=== PATIENT | female | born 1960 | race Two or more races ===

== ENCOUNTER → 2019-12-23 11:11 | Outpatient (BNVA) | payer MEDICAID, SELFPAY | PROVIDERS: PCP Internal Medicine; Referring Provider Internal Medicine; Visit Provider Student in an Organized Health Care Education/Training Program | DX: M25.50 Pain in unspecified joint (principal) | CPT/HCPCS: 99213 ==

== ENCOUNTER 2020-01-12 17:35 | Outpatient (REF) | payer MEDICAID, SELFPAY ==
--- NOTE | 2020-01-12 | MM_ITS ---
EXAMINATION: MM SCREENING DIGITAL BREAST TOMOSYNTHESIS, BILATERAL CLINICAL INFORMATION: Screening. Asymptomatic. The lifetime risk of breast cancer based on the Tyrer-Cuzick Model is 9%. COMPARISON: Mammography: 07/09/2018, 07/02/2017, 06/02/2016 TECHNIQUE: Digital breast tomosynthesis is performed in both the craniocaudal and mediolateral oblique views along with computer-aided detection (CAD). Synthesized 2D images are generated from the tomosynthesis. FINDINGS: There are scattered areas of fibroglandular density (ACR BI-RADS breast composition Category b). Breast tissue composition borders on heterogeneously dense. Parenchymal pattern is similar to prior studies. There is no developing density or interval mass or architectural abnormality. There are some scattered punctate round calcifications again seen in each breast. No suspicious calcifications. Pacemaker generator overlies and partly obscures right axilla on MLO view. MM/MM tomosynthesis screening BI IMPRESSION: No significant changes from prior studies. ASSESSMENT: BI-RADS 2: Benign RECOMMENDATION: Routine annual mammography screening. This patient's information was entered into a reminder system with a target due date for their next mammogram.
== END 2020-01-12 17:36 | disposition home or self-care (01) ==
LOC: HO.MAMMO 17:35
PROVIDERS: PCP Internal Medicine; Visit Provider Internal Medicine
DX: Z12.31 Encounter for screening mammogram for malignant neoplasm of breast (principal)
CPT/HCPCS: 77063; 77067

== ENCOUNTER → 2020-05-04 16:05 | Outpatient (BNVA) | payer MEDICAID, SELFPAY | PROVIDERS: PCP Internal Medicine; Visit Provider Internal Medicine | DX: J44.9 Chronic obstructive pulmonary disease, unspecified (principal); J40 Bronchitis, not specified as acute or chronic; J30.9 Allergic rhinitis, unspecified; Z79.51 Long term (current) use of inhaled steroids | CPT/HCPCS: 99212 ==

== ENCOUNTER 2020-06-15 10:21 | Outpatient (REF) | payer MEDICAID, SELFPAY | END 2020-06-15 10:22 | disposition home or self-care (01) | LOC: HO.MAMMO 10:21 | PROVIDERS: PCP Internal Medicine; Visit Provider Internal Medicine | DX: Z13.89 Encounter for screening for other disorder (principal) ==

== ENCOUNTER → 2020-09-21 15:58 | Outpatient (BNVA) | payer MEDICAID, SELFPAY | PROVIDERS: PCP Internal Medicine; Visit Provider Internal Medicine | DX: J30.9 Allergic rhinitis, unspecified (principal); J44.9 Chronic obstructive pulmonary disease, unspecified; Z79.899 Other long term (current) drug therapy | CPT/HCPCS: 99212 ==

== ENCOUNTER → 2020-11-18 14:21 | Outpatient (BNVA) | payer MEDICAID, SELFPAY | PROVIDERS: PCP Internal Medicine ==

== ENCOUNTER 2020-11-22 18:19 | Inpatient (IN) | payer MEDICAID, SELFPAY ==
--- NOTE | ~2020-11-22 | XR_ITS ---
EXAMINATION: PORTABLE CHEST 1 VIEW CLINICAL INFORMATION: cp and sob . COMPARISON: 10/22/2018. TECHNIQUE: Portable frontal view of the chest was obtained. FINDINGS: Lungs are well-expanded with no superimposed focal infiltrate, effusion, edema, or pneumothorax. Cardiac silhouette within normal limits for size. Patient is status post sternotomy. Single lead pacemaker is again noted with lead tip overlying the expected right ventricle. No acute bony abnormality. XR/XR chest 1V IMPRESSION: Chronic appearing and postoperative changes similar to the prior examination. No acute process identified.
[2020-11-22 18:27] VITALS: BP 122/81; PULSE 66; O2SAT 98
[2020-11-22 18:28] VITALS: BMI 23.3
--- NOTE | 2020-11-22 18:40 | ED_ITS ---
HPI - Chest Pain General Chief Complaint: Chest Pain Stated Complaint: CHEST PAIN Time Seen by Provider: 11/22/20 18:36 Source: patient, EMS and junior engineer Mode of arrival: EMS Limitations: no limitations History of Present Illness HPI narrative: 59-year-old female brought in by ambulance for evaluation of chest pain and coughing with shortness of breath. Patient's symptoms started last night with sneezing and started to have a left nostril bleeding that was controlled since last night, patient also started to have chest pain started last night described as chest squeeze, radiates to the left shoulder, associated with shortness of breath (patient is known history of asthma/COPD), describes the pain as intermittent comes for few minutes then go away, moderate 5/10, nothing makes the pain worse, nothing makes the pain better. Patient has been wheezing since yesterday. Related Data Home Medications Medication Instructions Recorded Confirmed albuterol sulfate 90 mcg/actuation 2 puff INHALATION Q6H PRN 12/23/19 09/21/20 aerosol inhaler bisacodyl 5 mg tablet,delayed 5 mg PO BEDTIME 12/23/19 09/21/20 release clopidogrel 75 mg tablet 75 mg PO DAILY 12/23/19 09/21/20 fluticasone 250 mcg-salmeterol 50 1 inh INHALATION BID 12/23/19 09/21/20 mcg/dose blistr powdr for inhalation (Advair Diskus) furosemide 20 mg tablet 10 mg PO QAM 12/23/19 09/21/20 gabapentin 100 mg capsule 100 mg PO TID 12/23/19 09/21/20 hydrochlorothiazide 12.5 mg tablet 12.5 mg PO DAILY 12/23/19 09/21/20 loratadine 10 mg tablet 10 mg PO DAILY 12/23/19 09/21/20 losartan 100 mg tablet 100 mg PO DAILY 12/23/19 09/21/20 montelukast 10 mg tablet 10 mg PO BEDTIME 12/23/19 09/21/20 sertraline 50 mg tablet 50 mg PO DAILY 12/23/19 09/21/20 tiotropium bromide 18 mcg capsule 1 cap INHALATION DAILY 12/23/19 09/21/20 with inhalation device (Spiriva with HandiHaler) Previous Rx's Medication Instructions Recorded tramadol 50 mg tablet 50 mg PO Q8H #90 tab 06/29/20 acetaminophen 650 mg 1,300 mg PO Q8H #180 tab 08/03/20 tablet,extended release oxybutynin chloride 10 mg 10 mg PO DAILY 30 Days #30 tab 11/18/20 tablet,extended release 24 hr albuterol sulfate 2.5 mg INHALATION Q4-6H PRN #75 ml 11/22/20 albuterol sulfate 2.5 mg INHALATION Q4-6H PRN #75 ml 11/22/20 azithromycin 250 mg tablet See Rx Instructions .ROUTE 11/22/20 (Zithromax Z-Pedro) .COMPLEX #6 tab azithromycin 250 mg tablet See Rx Instructions .ROUTE 11/22/20 (Zithromax Z-Pedro) .COMPLEX #6 tab prednisone 20 mg tablet 20 mg PO BID #10 tab 11/22/20 prednisone 20 mg tablet 20 mg PO BID #10 tab 11/22/20 Allergies Allergy/AdvReac Type Severity Reaction Status Date / Time latex [LATEX] Allergy Severe DIFFICULTY Verified 09/21/20 16:06 BREATHING aspirin [Aspirin] Allergy Intermediate ITCHING, Verified 09/21/20 16:06 itchiness ciprofloxacin [From CIPRO] Allergy Intermediate DIAPHORESIS Verified 09/21/20 16:06 /PURITIS HEMALATHA Inhibitors Allergy Unknown COUGH Verified 09/21/20 16:06 [HEMALATHA INHIBITORS] Penicillins [PENICILLINS] Allergy Unknown UNKNOWN Verified 09/21/20 16:06 Review of Systems Review of Systems: All other systems are reviewed and are negative Constitutional: Reports as per HPI and Reports no additional constitutional complaints Eyes: Reports as per HPI and Reports no additional eye complaints Reports system reviewed and no additional complaints, except as documented Cardiovascular: Reports as per HPI and Reports no additional cardiovascular complaints Respiratory: Reports as per HPI and Reports no additional respiratory complaints Gastrointestinal: Reports as per HPI and Reports no additional gastrointestinal complaints Genitourinary: Reports no additional female genitourinary complaints Musculoskeletal: Reports no additional musculoskeletal complaints Skin/Breast: Reports system reviewed and no additional complaints, except as docu Psychiatric: Reports no additional psychiatric complaints Endocrine: Reports no additional endocrine complaints Hematologic/Lymphatic: Reports no additional hematologic/lymphatic complaints Allergic/Immunologic: Reports no additional allergic/immunologic complaints Reports system reviewed and no additional complaints, except as documented and Reports Abnormal speech present PMFSH Past Medical History Medical History Allergic rhinitis Asthma Asthma Bronchitis COPD (chronic obstructive pulmonary disease) Family history of GERD History of arthritis History of COPD History of depression History of enuresis History of urinary incontinence Hx of allergic rhinitis Hx of cardiac pacemaker Hx of coronary artery disease Hx of diabetes mellitus Hx of drug abuse Hx of essential hypertension Hx of hyperlipidemia Hx of migraines Hx of osteoarthritis Hx of pilonidal cyst Overactive bladder Surgical History History of epidermal inclusion cyst excision Hx laparoscopic cholecystectomy Hx of aortic valve replacement Social History Social History Advance Directives: No Advance Directives Information Provided: No Physical Exam Vital Signs: Vital Signs: Last Vital Signs Temp 99.1 F 11/22/20 19:54 Pulse 66 11/22/20 19:54 Resp 18 11/22/20 19:54 BP 118/71 11/22/20 19:54 Pulse Ox 98 11/22/20 19:54 Body Mass Index 23.3 Vital signs have been reviewed as appeared to be correct. Blood pressure normal. Heart rate normal. Respiration rate normal. Temperature normal. Oxygen saturation normal. Appearance: Alert. Oriented X3. No acute distress. Head: Normal external exam. Normocephalic. Atraumatic. No Ellis signs noted. No raccoon eyes noted Eyes: PERRLA. EOMI. Conjunctiva and sclera normal. Eyelids normal. ENT: TM's Normal. Pharynx normal. Uvula midline. Moist mucous membranes. No trismus noted. No drooling noted. No muffled voice noted. Neck: Normal inspection. Neck supple. FROM. No adenopathy. Thyroid Normal. No meningeal signs. No neck mass noted. CVS: Normal heart rate and rhythm. Heart sound normal. No murmurs noted. Pulses normal throughout. Respiratory: No respiratory distress. Painless inspiration. Breath sounds normal. Diffuse mild expiratory wheezing, with prolonged expiration. Chest nontender. No accessory muscle usage noted or decreased air movement noted. Abdomen: Soft and nontender. Bowel sounds normal in all 4 quadrants. No distention noted. No organomegaly noted. No visible injury noted. Back: No CVA tenderness. Full range of motion noted. Skin: Skin warm and dry. Normal skin color. Normal skin turgor. No rashes/lesions/lacerations noted. Extremities: No lower extremity edema. Extremities exhibit normal range of motion. Extremities nontender. Neuro: Oriented X 3. Cranial nerve exam: II-XII are grossly intact No motor deficit. No sensory deficit. Reflexes normal. Course Course Course Narrative: Assessment and plan 59-year-old female history of COPD came in with chest pain and tightness, exam show expiratory wheezing, consistent with COPD exacerbation patient received continuous bronchodilator/IV Solu-Medrol/potassium replacement, patient still feel wheezing and tight will admit for more bronchodilator. MDM - Chest Pain Lab Data Attestation: I reviewed the patient's lab results. Result diagrams: 11/22/20 19:05 11/22/20 19:05 Labs: Lab Results 11/22/20 11/22/20 11/22/20 Range/Units 19:05 19:05 19:05 WBC 8.2 (4.8-10.8) X10*3/uL RBC 5.09 (4.20-5.50) X10*6/uL Hgb 15.0 (12.0-16.0) g/dl Hct 44.3 (37-47) % MCV 87.0 (80-98) fL MCH 29.5 (27.0-33.0) pg MCHC 33.9 (31.0-35.0) g/dl RDW 12.9 (11.0-16.0) % Plt Count 297 (160-400) X10*3/uL MPV 10.1 (9.4-12.3) fL Immature Gran % (Auto) 0.2 (0.0-0.4) % Neut % (Auto) 61.2 (45-73) % Lymph % (Auto) 27.3 (20-40) % [place] % (Auto) 7.9 (2-11) % Eos % (Auto) 2.9 (0-4) % Baso % (Auto) 0.5 (0-2) % Lymph # (Auto) 2.2 (1.2-4.9) X10*3/uL [place] # (Auto) 0.7 (0.1-1.2) X10*3/uL Eos # (Auto) 0.2 (0.0-0.4) X10*3/uL Baso # (Auto) 0.0 (0.0-0.2) X10*3/uL Abs Immat Gran (auto) 0.02 (0.00-0.03) X10*3/uL Absolute Neuts (auto) 5.0 (2.0-8.3) X10*3/uL Absolute Nucleated RBC 0.000 (0.0-0.012) X10*3/uL Nucleated RBC % (auto) 0.0 (0.0-0.2) /100WBC Sodium 140 (135-145) mmol/L Potassium 3.1 L (3.3-5.1) mmol/L Chloride 100 (96-108) mmol/L Carbon Dioxide 31 H (22-29) mmol/L Anion Gap 12 (12-20) BUN 20 H (9-16) mg/dL Creatinine 0.90 (0.5-1.4) mg/dL Estim Creat Clear Calc 62.1 Estimated GFR > 60 Random Glucose 96 (60-115) mg/dL Calcium 9.9 (8.4-10.2) mg/dL Total Bilirubin 0.5 (0.0-1.0) mg/dL Direct Bilirubin 0.2 (0.0-0.5) mg/dL AST 22 (5-31) U/L ALT 13 (0-31) U/L Alkaline Phosphatase 65 (39-117) U/L Troponin I High Sens 8.8 (<3.5-17.0) ng/L B-Natriuretic Peptide (<100) pg/mL Total Protein 7.1 (6.5-8.0) g/dL Albumin 4.2 (3.5-5.0) g/dL Lipase 32 (8-78) U/L COVID-19 ([facility]) (Negative) COVID-19 Clin Com 11/22/20 11/22/20 Range/Units 19:05 19:05 WBC (4.8-10.8) X10*3/uL RBC (4.20-5.50) X10*6/uL Hgb (12.0-16.0) g/dl Hct (37-47) % MCV (80-98) fL MCH (27.0-33.0) pg MCHC (31.0-35.0) g/dl RDW (11.0-16.0) % Plt Count (160-400) X10*3/uL MPV (9.4-12.3) fL Immature Gran % (Auto) (0.0-0.4) % Neut % (Auto) (45-73) % Lymph % (Auto) (20-40) % [place] % (Auto) (2-11) % Eos % (Auto) (0-4) % Baso % (Auto) (0-2) % Lymph # (Auto) (1.2-4.9) X10*3/uL [place] # (Auto) (0.1-1.2) X10*3/uL Eos # (Auto) (0.0-0.4) X10*3/uL Baso # (Auto) (0.0-0.2) X10*3/uL Abs Immat Gran (auto) (0.00-0.03) X10*3/uL Absolute Neuts (auto) (2.0-8.3) X10*3/uL Absolute Nucleated RBC (0.0-0.012) X10*3/uL Nucleated RBC % (auto) (0.0-0.2) /100WBC Sodium (135-145) mmol/L Potassium (3.3-5.1) mmol/L Chloride (96-108) mmol/L Carbon Dioxide (22-29) mmol/L Anion Gap (12-20) BUN (9-16) mg/dL Creatinine (0.5-1.4) mg/dL Estim Creat Clear Calc Estimated GFR Random Glucose (60-115) mg/dL Calcium (8.4-10.2) mg/dL Total Bilirubin (0.0-1.0) mg/dL Direct Bilirubin (0.0-0.5) mg/dL AST (5-31) U/L ALT (0-31) U/L Alkaline Phosphatase (39-117) U/L Troponin I High Sens (<3.5-17.0) ng/L B-Natriuretic Peptide 90 (<100) pg/mL Total Protein (6.5-8.0) g/dL Albumin (3.5-5.0) g/dL Lipase (8-78) U/L COVID-19 (HOLLIS) Negative (Negative) COVID-19 Clin Com See Note Imaging Data Chest x-ray: Radiologist's impression: Chronic appearing and postoperative changes similar to the prior examination. No acute process identified. ECG Data ECG #1: Interpretation: Ventricular paced EKG at 70 beats per minute. Discharge Plan Discharge Clinical Impression: Hypokalemia COPD (chronic obstructive pulmonary disease) Qualifiers: COPD type: COPD with acute exacerbation Qualified Code(s): J44.1 - Chronic obstructive pulmonary disease with (acute) exacerbation Patient Disposition: Admitted As Inpatient
[2020-11-22] MEDS: Albuterol Sulfate (0.083%) 2.5 MG/3 ML VIAL.NEB 5 MG INHALE (18:52)
[2020-11-22] MEDS: Albuterol/Iprat 2.5/0.5MG 3 ML AMPUL.NEB INHALE (18:52)
[2020-11-22 19:02] VITALS: PULSE 64; O2SAT 94
[2020-11-22 19:10] LABS: MANUAL DIFF FLAG NO
[2020-11-22 19:13] LABS: Basophils Percent Auto 0.5 % (0-2); Eosinophils Absolute Auto 0.2 X10*3/uL (0.0-0.4); Eosinophils Percent Auto 2.9 % (0-4); Hematocrit 44.3 % (37-47); Imm Gran Abs Auto 0.02 X10*3/uL (0.00-0.03); Imm Gran Pct Auto 0.2 % (0.0-0.4); Lymphocytes Absolute Auto 2.2 X10*3/uL (1.2-4.9); Lymphocytes Percent Auto 27.3 % (20-40); Mean Corpuscular HGB Conc 33.9 g/dl (31.0-35.0); Mean Corpuscular Hemoglobin 29.5 pg (27.0-33.0); Mean Platelet Volume 10.1 fL (9.4-12.3); Monocytes Absolute Auto 0.7 X10*3/uL (0.1-1.2); Monocytes Percent Auto 7.9 % (2-11); Neutrophils Percent Auto 61.2 % (45-73); Platelet Count 297 X10*3/uL (160-400); Red Blood Count 5.09 X10*6/uL (4.20-5.50); Red Cell Distribution Width 12.9 % (11.0-16.0); White Blood Count 8.2 X10*3/uL (4.8-10.8)
[2020-11-22 19:27] LABS: COVID-19 Test Negative (Negative)
[2020-11-22 19:28] LABS: Alanine Aminotransferase 13 U/L (0-31); Albumin Level 4.2 g/dL (3.5-5.0); Alkaline Phosphatase 65 U/L (39-117); Anion Gap 12 (12-20); Aspartate Amino Transferase 22 U/L (5-31); Bilirubin Direct 0.2 mg/dL (0.0-0.5); Bilirubin Total 0.5 mg/dL (0.0-1.0); Blood Urea Nitrogen 20 mg/dL (9-16); Calcium 9.9 mg/dL (8.4-10.2); Carbon Dioxide 31 mmol/L (22-29); Chloride 100 mmol/L (96-108); Creatinine Clr Calc Pharmacy 62.1; Estimated Glomerular Filt Rate > 60; Glucose Random 96 mg/dL (60-115); Lipase 32 U/L (8-78); Potassium 3.1 mmol/L (3.3-5.1); Sodium 140 mmol/L (135-145); Total Protein 7.1 g/dL (6.5-8.0)
[2020-11-22 19:33] LABS: B Type Natriuretic Peptide 90 pg/mL (<100); Troponin-I High Sensitivity 8.8 ng/L (<3.5-17.0)
[2020-11-22 19:54] VITALS: BP 118/71; PULSE 66; RESP 18; TEMP 37.3; O2SAT 98
[2020-11-22] MEDS: methylPREDNISolone Sod Succ 125 MG/2 ML VIAL IVPUSH (20:10)
[2020-11-22] MEDS: Magnesium Sulfate/H2O 2 GM/50 ML PIGGYBACK IV (20:10)
--- NOTE | 2020-11-22 20:10 | PM.IMHP ---
History of Present Illness Date of Service: 11/22/20 Chief Complaint: Shortness of breath 59-year-old female with a past medical history of hypertension, hyperlipidemia, diabetes, coronary artery disease, history of cardiac pacemaker, COPD, anxiety, depression, arthritis, overactive bladder, migraines, history of aortic valve replacement presented to the hospital with a chief complaint of shortness of breath/chest tightness. Patient reported for past 1 day she has been having shortness of breath and chest tightness associated wheezing. Complains of dry cough. Denies any fevers and chills. Denies any numbness tingling or focal weakness. Chest pain is tight in nature, mostly as well with shortness of breath/coughing; radiates to the left arm; associated with mild dizziness. Denies any diaphoresis. Currently improved. Denies any GI or symptoms. Review of all other systems is negative except mentioned above ER course: Per ER team patient on presentation noted to be in mild distress, tachypneic, given magnesium, Solu-Medrol, nebulizations with slight improvement; home vitals are stable. Admitted to the hospital for further management. EKG was nonischemic. Troponin negative. [facility] Medical History (Updated 11/22/20 @ 20:10 by Adair Baig MD) Allergic rhinitis Asthma Asthma Bronchitis COPD (chronic obstructive pulmonary disease) Family history of GERD History of arthritis History of COPD History of depression History of enuresis History of urinary incontinence Hx of allergic rhinitis Hx of cardiac pacemaker Hx of coronary artery disease Hx of diabetes mellitus Hx of drug abuse Hx of essential hypertension Hx of hyperlipidemia Hx of migraines Hx of osteoarthritis Hx of pilonidal cyst Overactive bladder Pertinent family history: Reviewed; Surgical History History of epidermal inclusion cyst excision Hx laparoscopic cholecystectomy Hx of aortic valve replacement Social History Alcohol intake: never Patient Tobacco Use Status: Current everyday Tobacco user Use of substances other than those prescribed or required for medical reasons: No Advance Directives: No Advance Directives Information Provided: No Meds Allergies Allergy/AdvReac Type Severity Reaction Status Date / Time latex [LATEX] Allergy Severe DIFFICULTY Verified 09/21/20 16:06 BREATHING aspirin [Aspirin] Allergy Intermediate ITCHING, Verified 09/21/20 16:06 itchiness ciprofloxacin [From CIPRO] Allergy Intermediate DIAPHORESIS Verified 09/21/20 16:06 /PURITIS HEMALATHA Inhibitors Allergy Unknown COUGH Verified 09/21/20 16:06 [HEMALATHA INHIBITORS] Penicillins [PENICILLINS] Allergy Unknown UNKNOWN Verified 09/21/20 16:06 Active Medications: Current Medications Acetaminophen (Acetaminophen 325 Mg Tablet) 650 mg PO Q6H PRN PRN Reason: Pain, Mild (Pain Scale 1-3) Enoxaparin Sodium (Enoxaparin Sodium 40 Mg/0.4 Ml Syringe) 40 mg SUBCUT Q24H PATTI Magnesium Sulfate (Magnesium Sulfate/H2o) 2 gm in 50 mls @ 25 mls/hr IV ONCE ONE Stop: 11/22/20 20:35 Methylprednisolone Sodium Succinate (Methylprednisolone Sod Succ 125 Mg/2 Ml Vial) 60 mg IVPUSH Q8H PATTI Nitroglycerin (Nitroglycerin 0.4 Mg Tab.Subl) 0.4 mg SUBLINGUAL Q5MX3 PRN PRN Reason: Chest Pain Senna (Sennosides 8.6 Mg Tablet) 17.2 mg PO BEDTIME PRN PRN Reason: Constipation Sodium Chloride (0.9 % Sodium Chloride Flush 3 Ml Syringe) 3 ml IVFLUSH QSHIFT PATTI Home Medications Medication Instructions Recorded Confirmed Last Taken Type albuterol sulfate 90 mcg/actuation 2 puff INHALATION Q6H PRN 12/23/19 11/22/20 Unknown History aerosol inhaler bisacodyl 5 mg tablet,delayed 10 mg PO BEDTIME 12/23/19 11/22/20 Unknown History release clopidogrel 75 mg tablet 75 mg PO DAILY 12/23/19 11/22/20 Unknown History fluticasone 250 mcg-salmeterol 50 1 inh INHALATION BID 12/23/19 11/22/20 Unknown History mcg/dose blistr powdr for inhalation (Advair Diskus) furosemide 20 mg tablet 10 mg PO QAM 12/23/19 11/22/20 Unknown History gabapentin 100 mg capsule 100 mg PO TID 12/23/19 11/22/20 Unknown History hydrochlorothiazide 12.5 mg tablet 12.5 mg PO DAILY 12/23/19 11/22/20 Unknown History montelukast 10 mg tablet 10 mg PO BEDTIME 12/23/19 11/22/20 Unknown History sertraline 50 mg tablet 50 mg PO DAILY 12/23/19 11/22/20 Unknown History tiotropium bromide 18 mcg capsule 1 cap INHALATION DAILY 12/23/19 11/22/20 Unknown History with inhalation device (Spiriva with HandiHaler) albuterol sulfate 1 amp INHALATION TID 11/22/20 11/22/20 Unknown History calcium carbonate 600 mg (1,500 1 tab PO QAM 11/22/20 11/22/20 Unknown History mg)-vitamin D3 400 unit tablet triamcinolone acetonide 0.1 % 1 appl TOPICAL DAILY 11/22/20 11/22/20 Unknown History topical cream Physical Exam Vital Signs and Narrative: Vital Signs: Last Vital Signs Temp 99.1 F 11/22/20 19:54 Pulse 66 11/22/20 19:54 Resp 18 11/22/20 19:54 BP 118/71 11/22/20 19:54 Pulse Ox 98 11/22/20 19:54 Body Mass Index 23.3 Gen: Appears be in no acute distress; not in respiratory distress; speaks in full sentences HEENT: NCAT, Moist mucosa. Pulmonary: Bilateral wheezing noted CVS: Normal S1-S2 Abdomen: BS+, Soft, Nontender Extremities: Warm well perfused Neuro: Alert and awake. Results Labs CBC and Chem 7: 11/22/20 19:05 11/22/20 19:05 Labs: Laboratory Results - last 24 hr 11/22/20 11/22/20 11/22/20 19:05 19:05 19:05 MCV 87.0 MCH 29.5 MCHC 33.9 RDW 12.9 Plt Count 297 MPV 10.1 Immature Gran % (Auto) 0.2 Neut % (Auto) 61.2 Lymph % (Auto) 27.3 [place] % (Auto) 7.9 Eos % (Auto) 2.9 Baso % (Auto) 0.5 Lymph # (Auto) 2.2 [place] # (Auto) 0.7 Eos # (Auto) 0.2 Baso # (Auto) 0.0 Abs Immat Gran (auto) 0.02 Absolute Neuts (auto) 5.0 Absolute Nucleated RBC 0.000 Nucleated RBC % (auto) 0.0 Anion Gap 12 Estim Creat Clear Calc 62.1 Estimated GFR > 60 Random Glucose 96 Calcium 9.9 Total Bilirubin 0.5 Direct Bilirubin 0.2 AST 22 ALT 13 Alkaline Phosphatase 65 Troponin I High Sens 8.8 B-Natriuretic Peptide Total Protein 7.1 Albumin 4.2 Lipase 32 COVID-19 ([facility]) COVID-19 Clin Com 11/22/20 11/22/20 19:05 19:05 MCV MCH MCHC RDW Plt Count MPV Immature Gran % (Auto) Neut % (Auto) Lymph % (Auto) [place] % (Auto) Eos % (Auto) Baso % (Auto) Lymph # (Auto) [place] # (Auto) Eos # (Auto) Baso # (Auto) Abs Immat Gran (auto) Absolute Neuts (auto) Absolute Nucleated RBC Nucleated RBC % (auto) Anion Gap Estim Creat Clear Calc Estimated GFR Random Glucose Calcium Total Bilirubin Direct Bilirubin AST ALT Alkaline Phosphatase Troponin I High Sens B-Natriuretic Peptide 90 Total Protein Albumin Lipase COVID-19 (HOLLIS) Negative COVID-19 Clin Com See Note Imaging Radiologist's Impressions: Impressions Chest X-Ray 11/22/20 18:36 IMPRESSION: Chronic appearing and postoperative changes similar to the prior examination. No acute process identified. Assessment and Plan (1) COPD (chronic obstructive pulmonary disease): Qualifiers: COPD type: COPD with acute exacerbation Qualified Code(s): J44.1 - Chronic obstructive pulmonary disease with (acute) exacerbation Status: Acute (2) Chest pain: Status: Acute 59-year-old female with a past medical history of hypertension, hyperlipidemia, diabetes, coronary artery disease, history of cardiac pacemaker, COPD, anxiety, depression, arthritis, overactive bladder, migraines, history of aortic valve replacement presented to the hospital with a chief complaint of shortness of breath/chest tightness. Noted to be in COPD exacerbation. Admitted for further management. COPD exacerbation: Continue Solu-Medrol IV Nebulizations standing and p.r.n. Supplemental oxygen p.r.n. Goal oxygen saturation 93% Azithromycin Chest tightness: Patient has history of CAD/aortic valve replacement. Initial troponin negative. EKG nonischemic. Telemetry. Cycle cardiac enzymes. Cardiology consult Diabetes: Insulin sliding scale. History of hypertension/hyperlipidemia: Continue home medications. DVT prophylaxis: Lovenox Code status: DNR. Okay for intubation. Patient reports that she has heart transplantation has pacemaker mentions DNR. Quality Stroke Does the patient have a stroke diagnosis?: No VTE Prior VTE?: No VTE Risk Level:: Medical - moderate - high VTE Device Contraindication: Treatment Not Indicated VTE Drug Contraindication: N/A - Med Ordered
[2020-11-22] MEDS: Potassium Chloride Packet 20 MEQ PACKET 40 MEQ PO (20:31)
--- NOTE | 2020-11-22 20:52 | PC.NURSE ---
pt IV pulled out, pt a difficult stick requiring U/S guidance.
[2020-11-22 20:55] VITALS: BP 117/59; PULSE 66; O2SAT 96
[2020-11-22] MEDS: Enoxaparin Sodium 40 MG/0.4 ML SYRINGE SUBCUT (20:58)
[2020-11-22] MEDS: Azithromycin 500 MG TABLET PO (20:58)
[2020-11-22 21:01] LABS: Glucose, Whole Blood 137 mg/dL (60-115)
[2020-11-22 21:05] LABS: Troponin-I High Sensitivity 8.4 ng/L (<3.5-17.0)
--- NOTE | 2020-11-22 21:25 | PHA.MEDREC ---
Pharmacy Consult ? Medication Reconciliation Pharmacy has completed the medication reconciliation Patient could only report her inhalers, tramadol, acetaminophen and tramadol because they were outside her [facility]. I utilize the claim history from [facility] to verify the rest of the medication. Elizabeth Leon, PharmD
[2020-11-22 21:50] LABS: Appearance Urine HAZY; Color Urine YELLOW; Glucose Urine UA NEG (NEG); Leukocyte Esterase Urine 3+ (NEG); Nitrite Urine NEG (NEG); Specific Gravity - Urine <= 1.005 (1.005-1.025); UACC Culture Trigger YES; Urine Blood NEG (NEG); Urine Ketones NEG (NEG); Urine Protein NEG (NEG-TRACE)
--- NOTE | 2020-11-22 22:06 | PC.NURSE ---
IV inserted by Lilibeth CASTELLANOS via U/S guidance in the R AC. report called and pt going to floor.
[2020-11-22 22:13] LABS: RBC Urine 0-2 /HPF (0); Squamous Epithelial Cell Urine 1+ /LPF
[2020-11-22 22:18] LABS: Bacteria Urine 2+ /LPF
[2020-11-22 22:27] VITALS: BP 119/70; PULSE 66; RESP 20; TEMP 36.1; O2SAT 99
[2020-11-22 23:46] VITALS: BP 116/65; PULSE 63; RESP 18; TEMP 36.1; O2SAT 97
[2020-11-22 23:54] VITALS: BMI 23.8
[2020-11-23] VITALS (9 sets, daily range): BP systolic 102–132; BP diastolic 56–78; PULSE 50–78; RESP 18–19; TEMP 35.6–36.5; O2SAT 94–98
[2020-11-23] MEDS: traMADoL HCL 50 MG TABLET PO ×4 (00:50→23:10)
[2020-11-23] MEDS: 0.9 % Sodium Chloride Flush 3 ML SYRINGE IVFLUSH ×4 (00:56→23:11)
[2020-11-23] MEDS: methylPREDNISolone Sod Succ 125 MG/2 ML VIAL 60 MG IVPUSH ×3 (01:44→17:33)
[2020-11-23 06:45] LABS: MANUAL DIFF FLAG NO
[2020-11-23 06:53] LABS: Basophils Percent Auto 0.2 % (0-2); Eosinophils Percent Auto 0.2 % (0-4); Hematocrit 41.1 % (37-47); Hemoglobin 13.8 g/dl (12.0-16.0); Imm Gran Abs Auto 0.02 X10*3/uL (0.00-0.03); Imm Gran Pct Auto 0.3 % (0.0-0.4); Lymphocytes Absolute Auto 0.6 X10*3/uL (1.2-4.9); Lymphocytes Percent Auto 10.5 % (20-40); Mean Corpuscular HGB Conc 33.6 g/dl (31.0-35.0); Mean Corpuscular Hemoglobin 29.7 pg (27.0-33.0); Mean Corpuscular Volume 88.4 fL (80-98); Mean Platelet Volume 10.8 fL (9.4-12.3); Monocytes Absolute Auto 0.1 X10*3/uL (0.1-1.2); Monocytes Percent Auto 0.9 % (2-11); Neutrophils Absolute Auto 5.2 X10*3/uL (2.0-8.3); Neutrophils Percent Auto 87.9 % (45-73); Platelet Count 271 X10*3/uL (160-400); Red Blood Count 4.65 X10*6/uL (4.20-5.50); White Blood Count 5.9 X10*3/uL (4.8-10.8)
[2020-11-23 07:14] LABS: Glucose, Whole Blood 156 mg/dL (60-115)
[2020-11-23 07:21] LABS: Magnesium 2.2 mg/dL (1.6-2.6)
[2020-11-23 07:26] LABS: Anion Gap 13 (12-20); Blood Urea Nitrogen 21 mg/dL (9-16); Calcium 9.6 mg/dL (8.4-10.2); Carbon Dioxide 24 mmol/L (22-29); Chloride 106 mmol/L (96-108); Creatinine Clr Calc Pharmacy 73.4; Estimated Glomerular Filt Rate > 60; Glucose Random 190 mg/dL (60-115); Potassium 3.6 mmol/L (3.3-5.1); Sodium 139 mmol/L (135-145)
[2020-11-23] MEDS: Insulin Lispro 100 UNIT/ML 3 ML VIAL SUBCUT ×2 (07:53→11:16)
--- NOTE | 2020-11-23 07:58 | ECG_ITS ---
Test Reason : CHEST PAIN Blood Pressure : / mmHG Vent. Rate : 068 BPM Atrial Rate : 056 BPM P-R Int : 000 ms QRS Dur : 160 ms QT Int : 486 ms P-R-T Axes : 000 -72 090 degrees QTc Int : 516 ms Ventricular-paced rhythm with occasional Premature ventricular complexes Abnormal ECG When compared with ECG of 06-JUL-2019 09:54, Premature ventricular complexes are now Present Vent. rate has increased BY 6 BPM Referred By: Sunil Thomas Electronically Signed By:MATT GRANDE
[2020-11-23] MEDS: Fluticasone/Vilanterol 100/25 BLST.W.DEV 1 PUFF INHALE (08:11)
[2020-11-23] MEDS: Albuterol/Iprat 2.5/0.5MG 3 ML AMPUL.NEB INHALE ×3 (08:11→19:21)
[2020-11-23] MEDS: Clopidogrel Bisulfate 75 MG TABLET PO (09:34)
[2020-11-23] MEDS: Gabapentin 100 MG CAPSULE PO ×3 (09:34→21:29)
[2020-11-23] MEDS: Furosemide 20 MG TABLET 10 MG PO (09:35)
[2020-11-23] MEDS: Sertraline HCL 50 MG TABLET PO (09:35)
--- NOTE | 2020-11-23 10:19 | PM.CNCAR ---
History of Present Illness History of Present Illness Date of Service: 11/23/20 Chief complaint: COPD Exacerbation Narrative: This is a cardiology consultation regarding chest pain. Patient normally goes to [facility]. 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 This led to aortic valve replacement with a homograft. This was complicated by complete heart block leading to single-chamber pacemaker. She is a chronic smoker and continues to smoke. Current admission is for complaints of shortness of breath and chest pressure. The chest pressure itself is very vague and patient not able to give any further information. Review of Systems Review of Systems: Yes all other systems are reviewed and are negative Cardiovascular: Cardiovascular: Reports as per HPI, Reports no additional cardiovascular complaints, Denies acrocyanosis, Denies cool extremities, Denies painful fingertips, Denies chest pain, Denies chest pain at rest, Denies diaphoresis, Denies syncope, Denies irregular heart rhythm, Denies claudication, Denies leg edema, Denies lightheadedness, Denies palpitations and Reports dyspnea Respiratory: Respiratory: Reports dyspnea Neurologic: Denies syncope Endocrine: Endocrine: Denies palpitations [facility] Past Medical History Medical History Allergic rhinitis Asthma Asthma Bronchitis COPD (chronic obstructive pulmonary disease) Family history of GERD History of arthritis History of COPD History of depression History of enuresis History of urinary incontinence Hx of allergic rhinitis Hx of cardiac pacemaker Hx of coronary artery disease Hx of diabetes mellitus Hx of drug abuse Hx of essential hypertension Hx of hyperlipidemia Hx of migraines Hx of osteoarthritis Hx of pilonidal cyst Overactive bladder Family History Pertinent family history: No significant family history per patient. Surgical History Surgical History (Updated 11/23/20 @ 10:26 by Murphy Abbott MD) History of epidermal inclusion cyst excision Hx laparoscopic cholecystectomy Hx of aortic valve replacement Social History Social History Household Members: Children Housing: Apartment Alcohol intake: never Patient Tobacco Use Status: Current everyday Tobacco user Cigarettes Per Day: 3 Smoked in Last 30 Days: Yes Patient Interested in Nicotine Replacement: No Use of substances other than those prescribed or required for medical reasons: No Have you been hit, kicked, punched, or otherwise hurt by someone within the past year? If so, by whom?: No Do you feel safe in your current relationship?: Yes Is there a partner from a previous relationship who is making you feel unsafe now?: No Advance Directives: No Advance Directives Information Provided: No Do you have thoughts of harming others: None Do you have a plan to hurt others: No Plan Recently lost weight without trying: No service: No Current occupational status: unemployed Meds Allergies Allergy/AdvReac Type Severity Reaction Status Date / Time latex [LATEX] Allergy Severe DIFFICULTY Verified 09/21/20 16:06 BREATHING aspirin [Aspirin] Allergy Intermediate ITCHING, Verified 09/21/20 16:06 itchiness ciprofloxacin [From CIPRO] Allergy Intermediate DIAPHORESIS Verified 09/21/20 16:06 /PURITIS HEMALATHA Inhibitors Allergy Unknown COUGH Verified 09/21/20 16:06 [HEMALATHA INHIBITORS] Penicillins [PENICILLINS] Allergy Unknown UNKNOWN Verified 09/21/20 16:06 Active Medications: Current Medications Acetaminophen (Acetaminophen 325 Mg Tablet) 650 mg PO Q6H PRN PRN Reason: Pain, Mild (Pain Scale 1-3) Albuterol Sulfate (Albuterol Sulfate (0.083%) 2.5 Mg/3 Ml Vial.Neb) 2.5 mg INHALE RTID [facility] Last Admin: 11/23/20 08:08 Dose: Not Given Documented by: Albuterol Sulfate (Albuterol Sulfate 90 Mcg 8 Gm Inhaler) 2 puff INHALE RQ6H PRN PRN Reason: Wheezing Albuterol/Ipratropium (Albuterol/Iprat 2.5/0.5mg 3 Ml Ampul.Neb) 3 ml INHALE RQ6H WHILE AWAKE [facility] Last Admin: 11/23/20 08:11 Dose: 3 ml Documented by: Albuterol/Ipratropium (Albuterol/Iprat 2.5/0.5mg 3 Ml Ampul.Neb) 3 ml INHALE RQ4H PRN PRN Reason: Shortness of Breath/Wheezing Azithromycin (Azithromycin 500 Mg Tablet) 500 mg PO Q24H [facility] Last Admin: 11/22/20 20:58 Dose: 500 mg Documented by: Bisacodyl (Bisacodyl 5 Mg Tablet.) 10 mg PO BEDTIME [facility] Clopidogrel Bisulfate (Clopidogrel Bisulfate 75 Mg Tablet) 75 mg PO DAILY [facility] Last Admin: 11/23/20 09:34 Dose: 75 mg Documented by: Dextrose (Dextrose 50 % 25 Gm/50 Ml Vial) 25 gm IVPUSH Q15M PRN; Protocol PRN Reason: per Hypoglycemia Standing Ord. Enoxaparin Sodium (Enoxaparin Sodium 40 Mg/0.4 Ml Syringe) 40 mg SUBCUT Q24H [facility] Last Admin: 11/22/20 20:58 Dose: 40 mg Documented by: Fluticasone/Vilanterol (Fluticasone/Vilanterol 100/25 Blst.W.Dev) 1 puff INHALE RDAILY [facility] Last Admin: 11/23/20 08:11 Dose: 1 puff Documented by: Furosemide (Furosemide 20 Mg Tablet) 10 mg PO DAILY@0800 [facility]; Protocol Last Admin: 11/23/20 09:35 Dose: 10 mg Documented by: Gabapentin (Gabapentin 100 Mg Capsule) 100 mg PO TID [facility] Last Admin: 11/23/20 09:34 Dose: 100 mg Documented by: Glucose (Glucose Gel 15 Gm Gel..Gram.) 15 gm PO Q15M PRN; Protocol PRN Reason: per Hypoglycemia Standing Ord. Insulin Human Lispro (Insulin Lispro 100 Unit/Ml 3 Ml Vial) 0 unit SUBCUT QIDACHS [facility]; Protocol Last Admin: 11/23/20 07:53 Dose: 2 unit Documented by: Methylprednisolone Sodium Succinate (Methylprednisolone Sod Succ 125 Mg/2 Ml Vial) 60 mg IVPUSH Q8H [facility] Last Admin: 11/23/20 09:34 Dose: 60 mg Documented by: Montelukast Sodium (Montelukast Sodium 10 Mg Tablet) 10 mg PO BEDTIME [facility] Nitroglycerin (Nitroglycerin 0.4 Mg Tab.Subl) 0.4 mg SUBLINGUAL Q5MX3 PRN PRN Reason: Chest Pain Oxybutynin Chloride (Oxybutynin Chloride Er 5 Mg Tab.Er.24) 10 mg PO DAILY [facility] Last Admin: 11/23/20 09:34 Dose: 10 mg Documented by: Pharmacy Consult (Consult Rx Perform Med Rec) 1 each MISCELLANE ONCE PRN PRN Reason: Consult order Senna (Sennosides 8.6 Mg Tablet) 17.2 mg PO BEDTIME PRN PRN Reason: Constipation Sertraline HCl (Sertraline Hcl 50 Mg Tablet) 50 mg PO DAILY [facility] Last Admin: 11/23/20 09:35 Dose: 50 mg Documented by: Sodium Chloride (0.9 % Sodium Chloride Flush 3 Ml Syringe) 3 ml IVFLUSH QSHIFT [facility] Last Admin: 11/23/20 07:55 Dose: 3 ml Documented by: Tiotropium [place] (Tiotropium [place] 18 Mcg Cap.W.Dev) 1 puff INHALE DAILY [facility] Last Admin: 11/23/20 08:12 Dose: 1 puff Documented by: Tramadol HCl (Tramadol Hcl 50 Mg Tablet) 50 mg PO Q8H [facility] Last Admin: 11/23/20 06:27 Dose: 50 mg Documented by: Home Medications Medication Instructions Recorded Confirmed Last Taken Type albuterol sulfate 90 mcg/actuation 2 puff INHALATION Q6H PRN 12/23/19 11/22/20 Unknown History aerosol inhaler bisacodyl 5 mg tablet,delayed 10 mg PO BEDTIME 12/23/19 11/22/20 Unknown History release clopidogrel 75 mg tablet 75 mg PO DAILY 12/23/19 11/22/20 Unknown History fluticasone 250 mcg-salmeterol 50 1 inh INHALATION BID 12/23/19 11/22/20 Unknown History mcg/dose blistr powdr for inhalation (Advair Diskus) furosemide 20 mg tablet 10 mg PO QAM 12/23/19 11/22/20 Unknown History gabapentin 100 mg capsule 100 mg PO TID 12/23/19 11/22/20 Unknown History hydrochlorothiazide 12.5 mg tablet 12.5 mg PO DAILY 12/23/19 11/22/20 Unknown History montelukast 10 mg tablet 10 mg PO BEDTIME 12/23/19 11/22/20 Unknown History sertraline 50 mg tablet 50 mg PO DAILY 12/23/19 11/22/20 Unknown History tiotropium bromide 18 mcg capsule 1 cap INHALATION DAILY 12/23/19 11/22/20 Unknown History with inhalation device (Spiriva with HandiHaler) albuterol sulfate 1 amp INHALATION TID 11/22/20 11/22/20 Unknown History calcium carbonate 600 mg (1,500 1 tab PO QAM 11/22/20 11/22/20 Unknown History mg)-vitamin D3 400 unit tablet triamcinolone acetonide 0.1 % 1 appl TOPICAL DAILY 11/22/20 11/22/20 Unknown History topical cream Physical Exam Vital Signs: Vital Signs: Last Vital Signs Temp 96.1 F L 11/23/20 03:53 Pulse 63 11/23/20 09:38 Resp 18 11/23/20 07:29 BP 125/64 11/23/20 09:38 Pulse Ox 96 11/23/20 07:29 Body Mass Index 23.8 Const: General: cooperative and no acute distress HENMT: Other: Unremarkable Neck: Neck: Yes normal visual inspection Chest: Chest palpation & inspection: normal inspection of the chest Resp: Auscultation: wheezes and diminished lung sounds Cardio: Jugular venous distension: no JVD Palpation: normal PMI Heart sounds: S1 normal heart sound present, S2 normal heart sound present, no gallops, Murmur heart sound present (2/6 NEIDA aortic area) and no rubs GI: Palpation (GI): Soft to palpation Back/Spine/Pelvis: Other: unremarkable Skin: General skin exam: no rashes or lesions noted Neuro: Cranial nerves: Yes Other cranial nerve findings present Extrem: General: Yes no clubbing, cyanosis or edema Psych: Mental Status: other Results Labs and Meds Result diagrams: 11/23/20 05:42 11/23/20 05:42 Lab results: Laboratory Results - last 24 hr 11/22/20 11/22/20 11/22/20 19:05 19:05 19:05 WBC 8.2 RBC 5.09 Hgb 15.0 Hct 44.3 MCV 87.0 MCH 29.5 MCHC 33.9 RDW 12.9 Plt Count 297 MPV 10.1 Immature Gran % (Auto) 0.2 Neut % (Auto) 61.2 Lymph % (Auto) 27.3 [place] % (Auto) 7.9 Eos % (Auto) 2.9 Baso % (Auto) 0.5 Lymph # (Auto) 2.2 [place] # (Auto) 0.7 Eos # (Auto) 0.2 Baso # (Auto) 0.0 Abs Immat Gran (auto) 0.02 Absolute Neuts (auto) 5.0 Absolute Nucleated RBC 0.000 Nucleated RBC % (auto) 0.0 Sodium 140 Potassium 3.1 L Chloride 100 Carbon Dioxide 31 H Anion Gap 12 BUN 20 H Creatinine 0.90 Estim Creat Clear Calc 62.1 Estimated GFR > 60 POC Glucose Random Glucose 96 Calcium 9.9 Magnesium Total Bilirubin 0.5 Direct Bilirubin 0.2 AST 22 ALT 13 Alkaline Phosphatase 65 Troponin I High Sens 8.8 B-Natriuretic Peptide Total Protein 7.1 Albumin 4.2 Lipase 32 Urine Color Urine Appearance Urine pH Ur Specific [place] Urine Protein Urine Glucose (UA) Urine Ketones Urine Blood Urine Nitrite Ur Leukocyte Esterase Urine RBC Urine WBC Ur Squamous Epith Cells Urine Bacteria COVID-19 ([facility]) COVID-19 Clin Com 11/22/20 11/22/20 11/22/20 19:05 19:05 20:39 WBC RBC Hgb Hct MCV MCH MCHC RDW Plt Count MPV Immature Gran % (Auto) Neut % (Auto) Lymph % (Auto) [place] % (Auto) Eos % (Auto) Baso % (Auto) Lymph # (Auto) [place] # (Auto) Eos # (Auto) Baso # (Auto) Abs Immat Gran (auto) Absolute Neuts (auto) Absolute Nucleated RBC Nucleated RBC % (auto) Sodium Potassium Chloride Carbon Dioxide Anion Gap BUN Creatinine Estim Creat Clear Calc Estimated GFR POC Glucose Random Glucose Calcium Magnesium Total Bilirubin Direct Bilirubin AST ALT Alkaline Phosphatase Troponin I High Sens 8.4 B-Natriuretic Peptide 90 Total Protein Albumin Lipase Urine Color Urine Appearance Urine pH Ur Specific [place] Urine Protein Urine Glucose (UA) Urine Ketones Urine Blood Urine Nitrite Ur Leukocyte Esterase Urine RBC Urine WBC Ur Squamous Epith Cells Urine Bacteria COVID-19 ([facility]) Negative COVID-19 Clin Com See Note 11/22/20 11/22/20 11/23/20 20:56 21:44 05:42 WBC 5.9 RBC 4.65 Hgb 13.8 Hct 41.1 MCV 88.4 MCH 29.7 MCHC 33.6 RDW 13.0 Plt Count 271 MPV 10.8 Immature Gran % (Auto) 0.3 Neut % (Auto) 87.9 H Lymph % (Auto) 10.5 L [place] % (Auto) 0.9 L Eos % (Auto) 0.2 Baso % (Auto) 0.2 Lymph # (Auto) 0.6 L [place] # (Auto) 0.1 Eos # (Auto) 0.0 Baso # (Auto) 0.0 Abs Immat Gran (auto) 0.02 Absolute Neuts (auto) 5.2 Absolute Nucleated RBC 0.000 Nucleated RBC % (auto) 0.0 Sodium Potassium Chloride Carbon Dioxide Anion Gap BUN Creatinine Estim Creat Clear Calc Estimated GFR POC Glucose 137 H Random Glucose Calcium Magnesium Total Bilirubin Direct Bilirubin AST ALT Alkaline Phosphatase Troponin I High Sens B-Natriuretic Peptide Total Protein Albumin Lipase Urine Color YELLOW Urine Appearance HAZY Urine pH 7.0 Ur Specific [place] <= 1.005 Urine Protein NEG Urine Glucose (UA) NEG Urine Ketones NEG Urine Blood NEG Urine Nitrite NEG Ur Leukocyte Esterase 3+ H Urine RBC 0-2 Urine WBC 5-9 H Ur Squamous Epith Cells 1+ Urine Bacteria 2+ COVID-19 ([facility]) COVID-19 Clin Com 11/23/20 11/23/20 11/23/20 05:42 05:42 07:07 WBC RBC Hgb Hct MCV MCH MCHC RDW Plt Count MPV Immature Gran % (Auto) Neut % (Auto) Lymph % (Auto) [place] % (Auto) Eos % (Auto) Baso % (Auto) Lymph # (Auto) [place] # (Auto) Eos # (Auto) Baso # (Auto) Abs Immat Gran (auto) Absolute Neuts (auto) Absolute Nucleated RBC Nucleated RBC % (auto) Sodium 139 Potassium 3.6 Chloride 106 Carbon Dioxide 24 Anion Gap 13 BUN 21 H Creatinine 0.76 Estim Creat Clear Calc 73.4 Estimated GFR > 60 POC Glucose 156 H Random Glucose 190 H Calcium 9.6 Magnesium 2.2 Total Bilirubin Direct Bilirubin AST ALT Alkaline Phosphatase Troponin I High Sens B-Natriuretic Peptide Total Protein Albumin Lipase Urine Color Urine Appearance Urine pH Ur Specific [place] Urine Protein Urine Glucose (UA) Urine Ketones Urine Blood Urine Nitrite Ur Leukocyte Esterase Urine RBC Urine WBC Ur Squamous Epith Cells Urine Bacteria COVID-19 ([facility]) COVID-19 Clin Com ECG Interpretation: EKG with ventricular paced rhythm at 68/Min. There are P waves seen with progressively prolonged KS mimicking Wenckebach pattern. Imaging Radiologist's impression: Impressions Chest X-Ray 11/22/20 18:36 IMPRESSION: Chronic appearing and postoperative changes similar to the prior examination. No acute process identified. Assessment and Plan (1) Chest pain: Status: Acute (2) COPD (chronic obstructive pulmonary disease): Qualifiers: COPD type: COPD with acute exacerbation Qualified Code(s): J44.1 - Chronic obstructive pulmonary disease with (acute) exacerbation Status: Acute (3) Status post aortic valve replacement: Status: Acute Available cardiac data reviewed. Last echocardiogram is from September 2020. That shows LVEF of 40-45%. Left atrium moderately dilated. Moderate aortic stenosis with mean gradient of 15 mm Hg. Mild aortic regurgitation. Aortic arch was dilated at 3.9 cm. Last cardiac catheterization is from 2019. That showed minimal coronary artery disease with only luminal irregularities. High sensitivity troponins are unremarkable. Symptoms are unlikely to be cardiac in nature. No need for any inpatient cardiac work up. Procedures Date of Service Date of Service: 11/23/20
[2020-11-23 11:06] LABS: Glucose, Whole Blood 160 mg/dL (60-115)
--- NOTE | 2020-11-23 12:31 | P.PNIM_ITS ---
Subjective Subjective Date of Service: 11/23/20 Interval History: 59-year-old female with known history of COPD presents with worsening shortness of breath and productive cough over the last several days prior to admission. She also complains of chest pain with cough that is nonradiating in nature. No acute issues overnight; breathing is somewhat improved with steroids Review of Systems Denies further chest pain Admits shortness of breath that is improved Denies nausea vomiting diarrhea Physical Exam Vital Signs: Vital Signs: Last Vital Signs Temp 96.1 F L 11/23/20 03:53 Pulse 78 11/23/20 11:20 Resp 18 11/23/20 11:20 BP 132/78 11/23/20 11:20 Pulse Ox 97 11/23/20 11:20 Body Mass Index 23.8 Const: Other: Able speak in full sentences General: no acute distress HENMT: Other: Membranes moist; oropharynx clear Resp: Other: Diminished all villar with end expiratory wheezes throughout the lower lobes. There are mild coarse rhonchi that clear with cough Cardio: Jugular venous distension: no JVD Rate: regular rate Rhythm: regular rhythm Heart sounds: S1 normal heart sound present, S2 normal heart sound present and Murmur heart sound present (2/6 systolic murmur) GI: Other: Soft nontender nondistended with normoactive bowel sounds. No appreciable hepatosplenomegaly Neuro: Other: Cranial nerves 2-12 grossly intact as tested. Motor is 5/5 bilaterally sensation intact. Cognition clear Extrem: General: Yes normal to inspection Objective Data Active Medications Acetaminophen (Acetaminophen 325 Mg Tablet) 650 mg PO Q6H PRN PRN Reason: Pain, Mild (Pain Scale 1-3) Albuterol Sulfate (Albuterol Sulfate (0.083%) 2.5 Mg/3 Ml Vial.Neb) 2.5 mg INHALE RTID [facility] Last Admin: 11/23/20 08:08 Dose: Not Given Documented by: JEANNE Non-Admin Reason: See Note Albuterol Sulfate (Albuterol Sulfate 90 Mcg 8 Gm Inhaler) 2 puff INHALE RQ6H PRN PRN Reason: Wheezing Albuterol/Ipratropium (Albuterol/Iprat 2.5/0.5mg 3 Ml Ampul.Neb) 3 ml INHALE RQ6H WHILE AWAKE [facility] Last Admin: 11/23/20 08:11 Dose: 3 ml Documented by: JEANNE Albuterol/Ipratropium (Albuterol/Iprat 2.5/0.5mg 3 Ml Ampul.Neb) 3 ml INHALE RQ4H PRN PRN Reason: Shortness of Breath/Wheezing Azithromycin (Azithromycin 500 Mg Tablet) 500 mg PO Q24H [facility] Last Admin: 11/22/20 20:58 Dose: 500 mg Documented by: NEDA Bisacodyl (Bisacodyl 5 Mg Tablet.Dr) 10 mg PO BEDTIME [facility] Clopidogrel Bisulfate (Clopidogrel Bisulfate 75 Mg Tablet) 75 mg PO DAILY [facility] Last Admin: 11/23/20 09:34 Dose: 75 mg Documented by: EUGENE Dextrose (Dextrose 50 % 25 Gm/50 Ml Vial) 25 gm IVPUSH Q15M PRN; Protocol PRN Reason: per Hypoglycemia Standing Ord. Enoxaparin Sodium (Enoxaparin Sodium 40 Mg/0.4 Ml Syringe) 40 mg SUBCUT Q24H [facility] Last Admin: 11/22/20 20:58 Dose: 40 mg Documented by: NEDA Fluticasone/Vilanterol (Fluticasone/Vilanterol 100/25 Blst.W.Dev) 1 puff INHALE RDAILY [facility] Last Admin: 11/23/20 08:11 Dose: 1 puff Documented by: JEANNE Furosemide (Furosemide 20 Mg Tablet) 10 mg PO DAILY@0800 [facility]; Protocol Last Admin: 11/23/20 09:35 Dose: 10 mg Documented by: EUGENE Gabapentin (Gabapentin 100 Mg Capsule) 100 mg PO TID [facility] Last Admin: 11/23/20 09:34 Dose: 100 mg Documented by: EUGENE Glucose (Glucose Gel 15 Gm Gel..Gram.) 15 gm PO Q15M PRN; Protocol PRN Reason: per Hypoglycemia Standing Ord. Insulin Human Lispro (Insulin Lispro 100 Unit/Ml 3 Ml Vial) 0 unit SUBCUT QIDACHS [facility]; Protocol Last Admin: 11/23/20 11:16 Dose: 2 unit Documented by: EUGENE Methylprednisolone Sodium Succinate (Methylprednisolone Sod Succ 125 Mg/2 Ml Via l) 60 mg IVPUSH Q8H [facility] Last Admin: 11/23/20 09:34 Dose: 60 mg Documented by: EUGENE Montelukast Sodium (Montelukast Sodium 10 Mg Tablet) 10 mg PO BEDTIME [facility] Nitroglycerin (Nitroglycerin 0.4 Mg Tab.Subl) 0.4 mg SUBLINGUAL Q5MX3 PRN PRN Reason: Chest Pain Oxybutynin Chloride (Oxybutynin Chloride Er 5 Mg Tab.Er.24) 10 mg PO DAILY [facility] Last Admin: 11/23/20 09:34 Dose: 10 mg Documented by: EUGENE Pharmacy Consult (Consult Rx Perform Med Rec) 1 each MISCELLANE ONCE PRN PRN Reason: Consult order Senna (Sennosides 8.6 Mg Tablet) 17.2 mg PO BEDTIME PRN PRN Reason: Constipation Sertraline HCl (Sertraline Hcl 50 Mg Tablet) 50 mg PO DAILY [facility] Last Admin: 11/23/20 09:35 Dose: 50 mg Documented by: EUGENE Sodium Chloride (0.9 % Sodium Chloride Flush 3 Ml Syringe) 3 ml IVFLUSH QSHIFT [facility] Last Admin: 11/23/20 07:55 Dose: 3 ml Documented by: EUGENE Tiotropium [place] (Tiotropium [place] 18 Mcg Cap.W.Dev) 1 puff INHALE DAILY [facility] Last Admin: 11/23/20 08:12 Dose: 1 puff Documented by: JEANNE Tramadol HCl (Tramadol Hcl 50 Mg Tablet) 50 mg PO Q8H [facility] Last Admin: 11/23/20 06:27 Dose: 50 mg Documented by: BRENNA Labs CBC & Chem 7: 11/23/20 05:42 11/23/20 05:42 Labs: Laboratory Results - last 24 hr 11/22/20 11/22/20 11/22/20 19:05 19:05 19:05 MCV 87.0 MCH 29.5 MCHC 33.9 RDW 12.9 Plt Count 297 MPV 10.1 Immature Gran % (Auto) 0.2 Neut % (Auto) 61.2 Lymph % (Auto) 27.3 [place] % (Auto) 7.9 Eos % (Auto) 2.9 Baso % (Auto) 0.5 Lymph # (Auto) 2.2 [place] # (Auto) 0.7 Eos # (Auto) 0.2 Baso # (Auto) 0.0 Abs Immat Gran (auto) 0.02 Absolute Neuts (auto) 5.0 Absolute Nucleated RBC 0.000 Nucleated RBC % (auto) 0.0 Anion Gap 12 Estim Creat Clear Calc 62.1 Estimated GFR > 60 POC Glucose Random Glucose 96 Calcium 9.9 Magnesium Total Bilirubin 0.5 Direct Bilirubin 0.2 AST 22 ALT 13 Alkaline Phosphatase 65 Troponin I High Sens 8.8 B-Natriuretic Peptide Total Protein 7.1 Albumin 4.2 Lipase 32 Urine Color Urine Appearance Urine pH Ur Specific [place] Urine Protein Urine Glucose (UA) Urine Ketones Urine Blood Urine Nitrite Ur Leukocyte Esterase Urine RBC Urine WBC Ur Squamous Epith Cells Urine Bacteria COVID-19 ([facility]) COVID-19 Clin Com 11/22/20 11/22/20 11/22/20 19:05 19:05 20:39 MCV MCH MCHC RDW Plt Count MPV Immature Gran % (Auto) Neut % (Auto) Lymph % (Auto) [place] % (Auto) Eos % (Auto) Baso % (Auto) Lymph # (Auto) [place] # (Auto) Eos # (Auto) Baso # (Auto) Abs Immat Gran (auto) Absolute Neuts (auto) Absolute Nucleated RBC Nucleated RBC % (auto) Anion Gap Estim Creat Clear Calc Estimated GFR POC Glucose Random Glucose Calcium Magnesium Total Bilirubin Direct Bilirubin AST ALT Alkaline Phosphatase Troponin I High Sens 8.4 B-Natriuretic Peptide 90 Total Protein Albumin Lipase Urine Color Urine Appearance Urine pH Ur Specific [place] Urine Protein Urine Glucose (UA) Urine Ketones Urine Blood Urine Nitrite Ur Leukocyte Esterase Urine RBC Urine WBC Ur Squamous Epith Cells Urine Bacteria COVID-19 ([facility]) Negative COVID-19 Clin Com See Note 11/22/20 11/22/20 11/23/20 20:56 21:44 05:42 MCV 88.4 MCH 29.7 MCHC 33.6 RDW 13.0 Plt Count 271 MPV 10.8 Immature Gran % (Auto) 0.3 Neut % (Auto) 87.9 H Lymph % (Auto) 10.5 L [place] % (Auto) 0.9 L Eos % (Auto) 0.2 Baso % (Auto) 0.2 Lymph # (Auto) 0.6 L [place] # (Auto) 0.1 Eos # (Auto) 0.0 Baso # (Auto) 0.0 Abs Immat Gran (auto) 0.02 Absolute Neuts (auto) 5.2 Absolute Nucleated RBC 0.000 Nucleated RBC % (auto) 0.0 Anion Gap Estim Creat Clear Calc Estimated GFR POC Glucose 137 H Random Glucose Calcium Magnesium Total Bilirubin Direct Bilirubin AST ALT Alkaline Phosphatase Troponin I High Sens B-Natriuretic Peptide Total Protein Albumin Lipase Urine Color YELLOW Urine Appearance HAZY Urine pH 7.0 Ur Specific [place] <= 1.005 Urine Protein NEG Urine Glucose (UA) NEG Urine Ketones NEG Urine Blood NEG Urine Nitrite NEG Ur Leukocyte Esterase 3+ H Urine RBC 0-2 Urine WBC 5-9 H Ur Squamous Epith Cells 1+ Urine Bacteria 2+ COVID-19 ([facility]) COVID-19 Clin Com 11/23/20 11/23/20 11/23/20 05:42 05:42 07:07 MCV MCH MCHC RDW Plt Count MPV Immature Gran % (Auto) Neut % (Auto) Lymph % (Auto) [place] % (Auto) Eos % (Auto) Baso % (Auto) Lymph # (Auto) [place] # (Auto) Eos # (Auto) Baso # (Auto) Abs Immat Gran (auto) Absolute Neuts (auto) Absolute Nucleated RBC Nucleated RBC % (auto) Anion Gap 13 Estim Creat Clear Calc 73.4 Estimated GFR > 60 POC Glucose 156 H Random Glucose 190 H Calcium 9.6 Magnesium 2.2 Total Bilirubin Direct Bilirubin AST ALT Alkaline Phosphatase Troponin I High Sens B-Natriuretic Peptide Total Protein Albumin Lipase Urine Color Urine Appearance Urine pH Ur Specific [place] Urine Protein Urine Glucose (UA) Urine Ketones Urine Blood Urine Nitrite Ur Leukocyte Esterase Urine RBC Urine WBC Ur Squamous Epith Cells Urine Bacteria COVID-19 ([facility]) COVID-19 Clin Com 11/23/20 10:58 MCV MCH MCHC RDW Plt Count MPV Immature Gran % (Auto) Neut % (Auto) Lymph % (Auto) [place] % (Auto) Eos % (Auto) Baso % (Auto) Lymph # (Auto) [place] # (Auto) Eos # (Auto) Baso # (Auto) Abs Immat Gran (auto) Absolute Neuts (auto) Absolute Nucleated RBC Nucleated RBC % (auto) Anion Gap Estim Creat Clear Calc Estimated GFR POC Glucose 160 H Random Glucose Calcium Magnesium Total Bilirubin Direct Bilirubin AST ALT Alkaline Phosphatase Troponin I High Sens B-Natriuretic Peptide Total Protein Albumin Lipase Urine Color Urine Appearance Urine pH Ur Specific [place] Urine Protein Urine Glucose (UA) Urine Ketones Urine Blood Urine Nitrite Ur Leukocyte Esterase Urine RBC Urine WBC Ur Squamous Epith Cells Urine Bacteria COVID-19 ([facility]) COVID-19 Clin Com Assessment and Plan (1) Acute exacerbation of COPD with asthma: Status: Acute Assessment and Plan: 59-year-old female presents with shortness of breath productive cough consistent with COPD exacerbation. Admitted to telemetry secondary to vague complaints of chest pain. Troponins have been negative. Seen by Cardiology; chest pain pulmonary in nature no need for workup. There were no acute events overnight 1. COPD exacerbation Continue pulsed dose methylprednisolone today switched to p.o. in a.m.. DuoNebs q.6 hours p.r.n. azithromycin given productive cough 2. Dm 2 Continue sliding scale as ordered. Adjust as indicated 3. AVR Continue Plavix as ordered DVT prophylaxis with Lovenox Quality Stroke Does the patient have a stroke diagnosis?: No VTE Prior VTE?: No VTE Risk Level:: Medical - moderate - high VTE Device Contraindication: Treatment Not Indicated VTE Drug Contraindication: N/A - Med Ordered
[2020-11-23] MEDS: Acetaminophen 325 MG TABLET 650 MG PO ×2 (16:37→22:45)
[2020-11-23 16:43] LABS: Glucose, Whole Blood 115 mg/dL (60-115)
[2020-11-23 21:11] LABS: Glucose, Whole Blood 138 mg/dL (60-115)
[2020-11-23] MEDS: Enoxaparin Sodium 40 MG/0.4 ML SYRINGE SUBCUT (21:28)
[2020-11-23] MEDS: Azithromycin 500 MG TABLET PO (21:29)
[2020-11-23] MEDS: Montelukast Sodium 10 MG TABLET PO (21:29)
[2020-11-23] MEDS: bisacodyL 5 MG TABLET.DR 10 MG PO (21:29)
[2020-11-24] MEDS: methylPREDNISolone Sod Succ 125 MG/2 ML VIAL 60 MG IVPUSH ×2 (02:07→08:15)
[2020-11-24 03:37] VITALS: BP 109/59; PULSE 63; RESP 18; TEMP 36.7; O2SAT 100
[2020-11-24 06:26] LABS: Basophils Percent Auto 0.1 % (0-2); Hematocrit 41.3 % (37-47); Hemoglobin 13.6 g/dl (12.0-16.0); Imm Gran Abs Auto 0.11 X10*3/uL (0.00-0.03); Imm Gran Pct Auto 0.6 % (0.0-0.4); Lymphocytes Absolute Auto 0.6 X10*3/uL (1.2-4.9); Lymphocytes Percent Auto 3.1 % (20-40); MANUAL DIFF FLAG SCAN; Mean Corpuscular HGB Conc 32.9 g/dl (31.0-35.0); Mean Platelet Volume 10.9 fL (9.4-12.3); Monocytes Absolute Auto 0.4 X10*3/uL (0.1-1.2); Monocytes Percent Auto 1.9 % (2-11); Neutrophils Absolute Auto 18.5 X10*3/uL (2.0-8.3); Neutrophils Percent Auto 94.3 % (45-73); Platelet Count 243 X10*3/uL (160-400); Red Blood Count 4.54 X10*6/uL (4.20-5.50); Red Cell Distribution Width 13.4 % (11.0-16.0); SCAN SMEAR FLAG 1; White Blood Count 19.7 X10*3/uL (4.8-10.8)
[2020-11-24 07:06] LABS: Alanine Aminotransferase 17 U/L (0-31); Albumin Level 3.8 g/dL (3.5-5.0); Alkaline Phosphatase 52 U/L (39-117); Anion Gap 15 (12-20); Aspartate Amino Transferase 24 U/L (5-31); Bilirubin Total 0.2 mg/dL (0.0-1.0); Blood Urea Nitrogen 18 mg/dL (9-16); Calcium 9.6 mg/dL (8.4-10.2); Carbon Dioxide 24 mmol/L (22-29); Chloride 106 mmol/L (96-108); Creatinine Clr Calc Pharmacy 78.6; Estimated Glomerular Filt Rate > 60; Glucose Fasting 136 mg/dL (60-99); Potassium 4.6 mmol/L (3.3-5.1); Sodium 140 mmol/L (135-145); Total Protein 6.5 g/dL (6.5-8.0)
[2020-11-24 07:22] LABS: Glucose, Whole Blood 134 mg/dL (60-115)
[2020-11-24 07:36] LABS: SLIDE REVIEW VERIFIED
[2020-11-24 07:53] VITALS: BP 106/57; PULSE 70; RESP 20; TEMP 36.6; O2SAT 95
[2020-11-24] MEDS: Gabapentin 100 MG CAPSULE PO (08:13)
[2020-11-24] MEDS: Clopidogrel Bisulfate 75 MG TABLET PO (08:13)
[2020-11-24] MEDS: Sertraline HCL 50 MG TABLET PO (08:13)
[2020-11-24] MEDS: Furosemide 20 MG TABLET 10 MG PO (08:13)
[2020-11-24] MEDS: traMADoL HCL 50 MG TABLET PO (08:14)
[2020-11-24] MEDS: 0.9 % Sodium Chloride Flush 3 ML SYRINGE IVFLUSH (08:16)
[2020-11-24 08:25] VITALS: PULSE 66; O2SAT 94
[2020-11-24] MEDS: Fluticasone/Vilanterol 100/25 BLST.W.DEV 1 PUFF INHALE (08:25)
[2020-11-24] MEDS: Albuterol/Iprat 2.5/0.5MG 3 ML AMPUL.NEB INHALE (08:25)
--- NOTE | 2020-11-24 10:37 | PM.DS ---
DS: Providers Provider Date of Service: 11/24/20 Date of admission: 11/22/20 20:05 Primary care physician: Ting Hampton MD Consults: 11/22/20 20:09 Consult to Cardiology Routine Consulting Provider: Murphy Abbott Reason for consultation: chest pain Attending physician on discharge: Adam Martin Discharging clinician: Winifred Romero DS: Diagnosis Discharge Diagnosis (1) Acute exacerbation of COPD with asthma: Status: Acute (2) Hypokalemia: Status: Acute DS: Summary Hospital Course Hospital Course: 59-year-old female presents with shortness of breath productive cough consistent with COPD exacerbation.? Admitted to telemetry secondary to vague complaints of chest pain.? Troponins have been negative.? Seen by Cardiology; chest pain pulmonary in nature no need for workup.? There were no acute events overnight COPD exacerbation. Treated with solumedrol, scheduled duoneb treatments and doxycyline. No hypoxia noted. Wheezing resolved. Patient to be discharged with oral prednisone for 4 days and 3 more days of doxycyline. Hypokalemia. Repleted and resolved. Time Spent with Patient Time attestation: Total time spent providing and/or coordinating discharge services: Discharge coordination time: Greater than 30 minutes Quality: Stroke Does the patient have a stroke diagnosis?: No Physical Exam Vital Signs: Vital Signs: Last Vital Signs Temp 97.8 F 11/24/20 07:53 Pulse 66 11/24/20 08:25 Resp 20 11/24/20 07:53 BP 106/57 L 11/24/20 07:53 Pulse Ox 95 11/24/20 07:53 Body Mass Index 23.8 Appearing in no acute distress head is normocephalic atraumatic eyes pupils are PERRLA sclera is anicteric mouth throat mucous membranes are intact and moist neck is supple no lymphadenopathy, no JVD noted lung sounds are clear to auscultation heart regular rate rhythm, clear S1, S2 positive bowel sounds, abdomen is soft, nontender neuro patient is alert x3, no focal deficits DS: Data Data Completed and Pending Labs on day of discharge: Laboratory Results - last 24 hr 11/23/20 11/23/20 11/23/20 10:58 13:01 16:31 WBC RBC Hgb Hct MCV MCH MCHC RDW Plt Count MPV Immature Gran % (Auto) Neut % (Auto) Lymph % (Auto) [place] % (Auto) Eos % (Auto) Baso % (Auto) Lymph # (Auto) [place] # (Auto) Eos # (Auto) Baso # (Auto) Abs Immat Gran (auto) Absolute Neuts (auto) Absolute Nucleated RBC Nucleated RBC % (auto) Smear Tech's Comments Sodium Cancelled Potassium Cancelled Chloride Cancelled Carbon Dioxide Cancelled Anion Gap Cancelled BUN Cancelled Creatinine Cancelled Estim Creat Clear Calc Cancelled Estimated GFR Cancelled POC Glucose 160 H 115 Fasting Glucose Cancelled Calcium Cancelled Total Bilirubin Cancelled AST Cancelled ALT Cancelled Alkaline Phosphatase Cancelled Total Protein Cancelled Albumin Cancelled 11/23/20 11/24/20 11/24/20 21:06 05:59 05:59 WBC 19.7 H RBC 4.54 Hgb 13.6 Hct 41.3 MCV 91.0 MCH 30.0 MCHC 32.9 RDW 13.4 Plt Count 243 MPV 10.9 Immature Gran % (Auto) 0.6 H Neut % (Auto) 94.3 H Lymph % (Auto) 3.1 L [place] % (Auto) 1.9 L Eos % (Auto) 0.0 Baso % (Auto) 0.1 Lymph # (Auto) 0.6 L [place] # (Auto) 0.4 Eos # (Auto) 0.0 Baso # (Auto) 0.0 Abs Immat Gran (auto) 0.11 H Absolute Neuts (auto) 18.5 H Absolute Nucleated RBC 0.000 Nucleated RBC % (auto) 0.0 Smear Tech's Comments VERIFIED Sodium 140 Potassium 4.6 D Chloride 106 Carbon Dioxide 24 Anion Gap 15 BUN 18 H Creatinine 0.71 Estim Creat Clear Calc 78.6 Estimated GFR > 60 POC Glucose 138 H Fasting Glucose 136 H Calcium 9.6 Total Bilirubin 0.2 AST 24 ALT 17 Alkaline Phosphatase 52 Total Protein 6.5 Albumin 3.8 11/24/20 07:16 WBC RBC Hgb Hct MCV MCH MCHC RDW Plt Count MPV Immature Gran % (Auto) Neut % (Auto) Lymph % (Auto) [place] % (Auto) Eos % (Auto) Baso % (Auto) Lymph # (Auto) [place] # (Auto) Eos # (Auto) Baso # (Auto) Abs Immat Gran (auto) Absolute Neuts (auto) Absolute Nucleated RBC Nucleated RBC % (auto) Smear Tech's Comments Sodium Potassium Chloride Carbon Dioxide Anion Gap BUN Creatinine Estim Creat Clear Calc Estimated GFR POC Glucose 134 H Fasting Glucose Calcium Total Bilirubin AST ALT Alkaline Phosphatase Total Protein Albumin Preliminary micro results at discharge 11/22/20 Unknown Urine Culture - Preliminary Urine clean catch - Urine leavitt top No growth to date. Discharge Plan Discharge Anticipated Discharge Date/Time: 11/24/20 10:21 Patient Disposition: Home, Self-Care Discharge Diagnosis: Asthma exacerbation Hypokalemia Referrals: Ting Packer MD [Primary Care Provider] - 12/07/20 3:15 pm (You have a follow up appointment scheduled on December 07 at 3:[address] Joshua Hampton. Please call your doctor's office if you need to reschedule. ) Discharge Medications: New azithromycin 500 mg Tablet 500 mg PO Q24H Qty: 3 RF: 0 prednisone 10 mg tablet 40 mg PO DAILY Qty: 16 RF: 0 Continued tramadol 50 mg tablet 50 mg PO Q8H Qty: 90 RF: 5 acetaminophen 650 mg tablet extended release 1,300 mg PO Q8H Qty: 180 RF: 3 albuterol sulfate 2.5 mg /3 mL (0.083 %) solution for nebulization 1 amp inhalation TID RF: 0 triamcinolone acetonide 0.1 % cream 1 appl topical DAILY RF: 0 calcium carbonate-vitamin D3 600 mg(1,500mg) -400 unit tablet 1 tab PO QAM RF: 0 gabapentin 100 mg capsule 100 mg PO TID RF: 0 sertraline 50 mg tablet 50 mg PO DAILY RF: 0 bisacodyl 5 mg tablet,delayed release (DR/EC) 10 mg PO BEDTIME RF: 0 hydrochlorothiazide 12.5 mg tablet 12.5 mg PO DAILY RF: 0 furosemide 20 mg tablet 10 mg PO QAM RF: 0 montelukast 10 mg tablet 10 mg PO BEDTIME RF: 0 albuterol sulfate 90 mcg/actuation HFA aerosol inhaler 2 puff inhalation Q6H PRN (Reason: Wheezing) RF: 0 fluticasone propion-salmeterol [Advair Diskus] 250-50 mcg/dose blister with device 1 inh inhalation BID RF: 0 Spiriva with HandiHaler 18 mcg capsule, w/inhalation device 1 cap inhalation DAILY RF: 0 clopidogrel 75 mg tablet 75 mg PO DAILY RF: 0 oxybutynin chloride 10 mg tablet extended release 24hr 10 mg PO DAILY 30 Days Qty: 30 RF: 3 Discharge Orders: Discharge Order (Routine); Ordered 11/24/20 Ordered By: Winifred Romero Diet: advance to usual diet Activity on Discharge: As tolerated Stand Alone Forms: Patient Portal Discharge page Care Plan Goals: complete resolution of asthma symptoms Health Concerns: asthma exacerbation, hypokalemia Plan of Treatment: Follow up with primary care provider as needed Assessment: See discharge summary Patient Instructions: COPD (Chronic Obstructive Pulmonary Disease) (ED)
[2020-11-24 11:23] LABS: Glucose, Whole Blood 138 mg/dL (60-115)
--- NOTE | 2020-11-24 13:10 | MHC.CM.PN ---
IMM 11/22 Female 59 DX COPD She is discharged home today. [facility] will resume services. A Taxi voucher has been provided for transportation to home.
== END 2020-11-24 13:38 | disposition home or self-care (01) | DRG 140 ==
LOC: HO.ED 20:00 → HO.EDOVER 20:29 → HO.IMC 20:56
PROVIDERS: Hospitalist; Admitting Provider Hospitalist; Emergency Provider Emergency Medicine; PCP Internal Medicine; Visit Provider Nurse Practitioner Acute Care
DX: J44.1 Chronic obstructive pulmonary disease with (acute) exacerbation (principal); J45.901 Unspecified asthma with (acute) exacerbation; E11.9 Type 2 diabetes mellitus without complications; Z20.822 Contact with and (suspected) exposure to COVID-19; E87.6 Hypokalemia; E78.5 Hyperlipidemia, unspecified; F17.210 Nicotine dependence, cigarettes, uncomplicated; Z71.6 Tobacco abuse counseling; Z95.1 Presence of aortocoronary bypass graft; Z88.0 Allergy status to penicillin; Z88.6 Allergy status to analgesic agent; Z79.02 Long term (current) use of antithrombotics/antiplatelets; Z79.51 Long term (current) use of inhaled steroids; Z79.891 Long term (current) use of opiate analgesic; Z79.899 Other long term (current) drug therapy; Z66 Do not resuscitate
CPT/HCPCS: 36415; 71045; 80048; 80053; 80076; 81001; 82947; 83690; 83735; 83880; 84484; 85025; 87086; 87635; 93005; 94640; 94644; 99219; 99285; J1650; J2930; J3475

== ENCOUNTER → 2020-12-16 13:05 | Outpatient (BNVA) | payer MEDICAID, SELFPAY | PROVIDERS: PCP Internal Medicine; Visit Provider Nurse Practitioner Family | DX: M25.50 Pain in unspecified joint (principal); R07.9 Chest pain, unspecified | CPT/HCPCS: 99212 ==

== ENCOUNTER 2020-12-16 13:47 | Emergency (ER) | payer MEDICAID, SELFPAY ==
--- NOTE | 2020-12-16 14:19 | ECG_ITS ---
Test Reason : CHEST PAIN Blood Pressure : / mmHG Vent. Rate : 063 BPM Atrial Rate : 062 BPM P-R Int : 000 ms QRS Dur : 152 ms QT Int : 500 ms P-R-T Axes : 000 -74 082 degrees QTc Int : 511 ms Ventricular-paced rhythm with occasional Premature ventricular complexes Abnormal ECG No significant changes seen Referred By: Generic ED Physician Electronically Signed By:TIFFANIE MOSES MD
[2020-12-16 14:42] VITALS: BP 125/75; PULSE 65; RESP 20; TEMP 35.8; O2SAT 98; BMI 28.3
[2020-12-16 15:49] LABS: Glucose, Whole Blood 82 mg/dL (60-115)
--- NOTE | 2020-12-16 15:51 | PC.NURSE ---
Patient upset, stating she has been waiting to long and she is diabetic. Blood sugar checked by environmental science technician. This RN in triaging another patient and heard yelling in the waiting room. Patient yelling fuck you at staff. Security standing in their doorway and witnessed event, patient then walked out of ED.
== END 2020-12-16 17:45 | disposition left against medical advice (07) ==
PROVIDERS: Emergency Provider Emergency Medicine; PCP Internal Medicine
DX: R07.89 Other chest pain (principal)
CPT/HCPCS: 82947; 93005; 99283

== ENCOUNTER → 2020-12-30 14:54 | Outpatient (BNVA) | payer MEDICAID, SELFPAY | PROVIDERS: PCP Internal Medicine; Visit Provider Internal Medicine | DX: J44.1 Chronic obstructive pulmonary disease with (acute) exacerbation (principal); J40 Bronchitis, not specified as acute or chronic; J30.9 Allergic rhinitis, unspecified; F17.200 Nicotine dependence, unspecified, uncomplicated; Z71.6 Tobacco abuse counseling | CPT/HCPCS: 99212 ==

== ENCOUNTER → 2021-03-07 15:23 | Outpatient (BNVA) | payer MEDICAID, SELFPAY | PROVIDERS: PCP Internal Medicine; Visit Provider Internal Medicine | DX: J44.9 Chronic obstructive pulmonary disease, unspecified (principal); J40 Bronchitis, not specified as acute or chronic; J30.9 Allergic rhinitis, unspecified | CPT/HCPCS: 99212 ==

== ENCOUNTER → 2021-05-09 15:12 | Outpatient (BNVA) | payer MEDICAID, SELFPAY | PROVIDERS: PCP Internal Medicine; Visit Provider Internal Medicine | DX: J44.1 Chronic obstructive pulmonary disease with (acute) exacerbation (principal); J44.0 Chronic obstructive pulmonary disease with (acute) lower respiratory infection; J20.9 Acute bronchitis, unspecified; J30.9 Allergic rhinitis, unspecified; Z79.899 Other long term (current) drug therapy | CPT/HCPCS: 99212 ==

== ENCOUNTER → 2021-05-20 14:28 | Outpatient (BNVA) | payer MEDICAID, SELFPAY | PROVIDERS: PCP Internal Medicine | DX: Z13.89 Encounter for screening for other disorder (principal) ==

== ENCOUNTER → 2021-07-04 14:54 | Outpatient (BNVA) | payer MEDICAID, SELFPAY | PROVIDERS: PCP Internal Medicine; Visit Provider Internal Medicine | DX: J44.1 Chronic obstructive pulmonary disease with (acute) exacerbation (principal); J45.909 Unspecified asthma, uncomplicated; J44.9 Chronic obstructive pulmonary disease, unspecified | CPT/HCPCS: 99212 ==

== ENCOUNTER → 2021-07-08 13:30 | Outpatient (BNVA) | payer MEDICAID, SELFPAY | PROVIDERS: PCP Internal Medicine; Visit Provider Urology | DX: Z13.89 Encounter for screening for other disorder (principal) ==

== ENCOUNTER → 2021-08-04 15:39 | Outpatient (BNVA) | payer MEDICAID, SELFPAY | PROVIDERS: PCP Internal Medicine; Visit Provider Internal Medicine | DX: J30.9 Allergic rhinitis, unspecified (principal); J40 Bronchitis, not specified as acute or chronic; J44.9 Chronic obstructive pulmonary disease, unspecified | CPT/HCPCS: 99212 ==

== ENCOUNTER 2021-10-25 10:55 | Outpatient (AMB) | payer MEDICAID, SELFPAY ==
--- NOTE | 2021-10-24 14:58 | MHC.OFFVIS ---
Intake Intake Visit Reasons: H&P (Interstim 11/07/21) Intake Note: Patient is present for H&P Update for interstim booked for 11/07/21 Current medication Oxybutynin Accompanied by: Self / Same As Patient Allergies latex [LATEX] Allergy (Severe, Verified 03/12/23 10:21) DIFFICULTY BREATHING aspirin [Aspirin] Allergy (Intermediate, Verified 03/12/23 10:21) ITCHING, itchiness ciprofloxacin [From CIPRO] Allergy (Intermediate, Verified 03/12/23 10:21) DIAPHORESIS/PURITIS Penicillins [PENICILLINS] Allergy (Unknown, Verified 03/12/23 10:21) UNKNOWN HEMALATHA Inhibitors [HEMALATHA INHIBITORS] Adverse Reaction (Intermediate, Verified 03/12/23 10:21) COUGH HPI HPI Comments History of Present Illness Details Ting is a pleasant Jordanian-speaking female. She is seen for following urologic conditions - urinary incontinence Telemedicine Evaluation 15 min Consultation [employer] Gracy Video attempted Translation provided by qualified bilingual medical receptionist Overactive bladder Longstanding InterStim Plan for battery change Continue to use oxybutynin PFSH Medical History Asthma with exacerbation Smoking Restrictive airway disease MARY (obstructive sleep apnea) COPD (chronic obstructive pulmonary disease) MARY on CPAP Reactive airways dysfunction syndrome Rheumatoid arthritis Fibromyalgia GERD (gastroesophageal reflux disease) MARY (obstructive sleep apnea) Aortic valve endocarditis COPD (chronic obstructive pulmonary disease) COPD exacerbation Overactive bladder Bronchitis Allergic rhinitis COPD (chronic obstructive pulmonary disease) Asthma Hx of cardiac pacemaker Hx of migraines Hx of coronary artery disease History of urinary incontinence Hx of essential hypertension History of depression Hx of drug abuse Hx of hyperlipidemia Hx of allergic rhinitis History of enuresis Hx of osteoarthritis Hx of pilonidal cyst Family history of GERD History of arthritis Hx of diabetes mellitus Surgical History History of surgical removal of pilonidal cyst Hx of bilateral cataract extraction Hx of colonoscopy History of cystoscopy History of hysterectomy Hx of aortic valve replacement Hx laparoscopic cholecystectomy History of epidermal inclusion cyst excision Social History Household Members: Family Household Members Other:: self Housing: Apartment Do you presently have visiting nurse or other home services: Yes (Home health aide) Alcohol intake: former Comment: refusing alarms Patient Tobacco Use Status: Former Tobacco user Tobacco use type: Cigarette Cigarettes Per Day: 3 e-Cigarette/Vaping Use: Currently Using Second Hand Smoke Exposure: Yes Advance Directives Date on File: 11/08/21 service: No Current occupational status: unemployed and disabled Review of Systems Const All systems reviewed & are unremarkable except as noted in HPI and below Reports no additional complaints Resp Reports no additional complaints GI Reports no additional complaints Reports as per HPI Musc Reports no additional complaints Physical Exam Telemedicine evaluation Appropriate responses Regular breathing rate and rhythm HEENT Head: Yes normal to inspection Ears: hearing grossly normal bilaterally Eyes General: appearance normal, both eyes and all related structures Neck Neck: Yes normal visual inspection Chest Chest palpation & inspection: normal inspection of the chest Resp Effort & Inspection: normal respiratory effort and able to speak in complete sentences Assessment & Plan Assessment & Plan (1) Overactive bladder: Code(s): N32.81 - Overactive bladder Plan Risks, benefits and alternatives to therapy were discussed. These include but are not limited to infection, bleeding, damage to local organs and tissues, need for further interventions. Anesthetic risks regarding cardiac arrhythmia, blood clots, and potential mortality were discussed. The patient understands the typical recovery time and the outpatient nature of the procedure. After consideration of these risks the patient gives full informed consent and they wish to move ahead with the procedure. Patient Instructions: Imaging studies, laboratory and physical exam results were discussed and reviewed in detail. No major barriers to patient understanding were identified. An opportunity to ask questions regarding the treatment plan was provided. All questions were answered. The patient expressed understanding and agreement with the above treatment plan. The patient is aware they should contact our office by phone for worsening of their current condition or the appearance of new urologic symptoms. Compliance is encouraged with any medications and followup testing that is ordered. It is a privilege to participate in the urologic care of your patient. If you have any questions or concerns regarding treatment for the above conditions, or other urologic issues, please do not hesitate to contact me. The office telephone contact is [phone]. This note is constructed using voice recognition software. While every effort has been made to ensure accuracy phone specialist errors may have been included. Yours sincerely, Dr Usman Vivas MD, [facility] - Urology Providers of Expert, Compassionate Care for the Genitourinary System Telehealth Telehealth Location of provider rendering services: practice address Location of patient: address on file Patient Identification confirmed using: Name, : Yes Telehealth method: voice only Patient verbally consented to treatment: Yes Patient verbally consented to billing insurance company: Yes Patient informed of any privacy concerns related to visit: Yes Coding Level of Care Code Tele Est Pt Level 3 (92011) Diagnoses Overactive bladder N32.81
== END 2021-10-25 11:37 | disposition home or self-care (01) ==
LOC: HO.HUSH 10:55
PROVIDERS: PCP Internal Medicine; Visit Provider Urology
DX: N32.81 Overactive bladder (principal)
CPT/HCPCS: 99499

== ENCOUNTER → 2021-10-25 11:19 | Outpatient (BNVA) | payer MEDICAID, SELFPAY | PROVIDERS: PCP Internal Medicine; Visit Provider Internal Medicine | DX: J45.909 Unspecified asthma, uncomplicated (principal); J44.1 Chronic obstructive pulmonary disease with (acute) exacerbation | CPT/HCPCS: 36415; 82785; 85007; 85027; 99212 ==

== ENCOUNTER 2021-10-25 12:06 | Outpatient (REF) | payer MEDICAID, SELFPAY ==
[2021-10-25 12:52] LABS: Baso%MD 0.4 %; Eos%MD 4.1 %; Hematocrit 44.3 % (37.0-47.0); Hemoglobin 14.4 g/dl (12.0-16.0); IG%MD 0.6 %; Lymph%MD 9.5 %; Mean Corpuscular HGB Conc 32.5 g/dl (31.0-35.0); Mean Corpuscular Hemoglobin 29.3 pg (27.0-33.0); Mean Platelet Volume 9.7 fL (9.4-12.3); Mono%MD 6.2 %; Neut%MD 79.2 %; Platelet Count 332 X10*3/uL (160-400); Red Blood Count 4.92 X10*6/uL (4.20-5.50); Red Cell Distribution Width 13.8 % (11.0-16.0); White Blood Count 11.5 X10*3/uL (4.8-10.8)
[2021-10-25 13:38] LABS: Atypical Lymph Absolute Manual 0.1 x10*3/uL; Atypical Lymphs Percent Manual 1 % (0-6); Band Neutrophils Percent 1 % (3-5); Eosinophils Absolute Manual 0.7 X10*3/uL (0.0-0.4); Eosinophils Percent Manual 6 % (0-4); Lymphocytes Absolute Manual 0.8 X10*3/uL (1.2-4.9); Lymphocytes Percent Manual 7 % (20-40); Monocytes Absolute Manual 0.3 X10*3/uL (0.1-1.2); Monocytes Percent Manual 3 % (2-11); Neutrophils Absolute Manual 9.5 X10*3/uL (2.0-8.3); Neutrophils Percent Manual 82 % (45-73)
[2021-10-25 13:39] LABS: Platelet Estimate NORMAL (NORMAL); Platelet Morphology Comment NORMAL; RBC Morphology NORMAL
[2021-10-26 21:32] LABS: Immunoglobulin E 72 kU/L (<OR=114)
== END 2021-10-25 12:07 | disposition home or self-care (01) ==
LOC: HO.LAB 12:06
PROVIDERS: PCP Internal Medicine; Visit Provider Internal Medicine
DX: J44.9 Chronic obstructive pulmonary disease, unspecified (principal); J30.9 Allergic rhinitis, unspecified
CPT/HCPCS: 36415; 82785; 85007; 85027

== ENCOUNTER 2021-11-07 05:45 | Inpatient (IN) | payer MEDICAID, SELFPAY ==
[2021-11-07] VITALS (10 sets, daily range): BP systolic 114–143; BP diastolic 52–80; PULSE 54–80; RESP 18–22; TEMP 36.3–37.3; O2SAT 93–98; BMI 37.1
--- NOTE | ~2021-11-07 | XR_ITS ---
EXAMINATION: XR CHEST CLINICAL INFORMATION: Cough, shortness of breath COMPARISON: 11/22/2020 TECHNIQUE: Frontal view of the chest was obtained. FINDINGS: Right-sided pacemaker lead tip overlies the right ventricle. Redemonstrated sternal wires. Lung volumes are symmetric. No definite consolidation is seen. Subtle focal density overlying the mid to upper right lung is suspected to reflect overlying osseous summation shadows. No evidence of pneumothorax, pleural effusion, or pulmonary edema. The cardiomediastinal contour is unremarkable. No acute osseous findings are seen. XR/XR chest 1V IMPRESSION: No definite acute findings. If symptoms persist, further assessment with PA and lateral radiographs is advised.
--- NOTE | 2021-11-07 05:54 | ECG_ITS ---
Test Reason : SOB Blood Pressure : / mmHG Vent. Rate : 075 BPM Atrial Rate : 096 BPM P-R Int : 000 ms QRS Dur : 150 ms QT Int : 468 ms P-R-T Axes : 000 -74 091 degrees QTc Int : 522 ms Sinus rhythm with complete heart block and Ventricular-paced rhythm with frequent Premature ventricular complexes Abnormal ECG When compared with ECG of 16-DEC-2020 14:28, Sinus rhythm is now with complete heart block Vent. rate has increased BY 12 BPM Referred By: Juju Bess Electronically Signed By:MATT GRANDE
--- NOTE | 2021-11-07 05:55 | ED_ITS ---
HPI - SOB/Dyspnea General Chief Complaint: Dyspnea Stated Complaint: difficulty breathing Time Seen by Provider: 11/07/21 05:52 Source: patient and EMS Mode of arrival: EMS Limitations: no limitations History of Present Illness HPI Narrative: Patient comes to the emergency room complaining of shortness of breath since yesterday. Patient has been using nebulization treatments without any effect. Patient denies chest pain, no URI or UTI symptoms. Related Data Home Medications Medication Instructions Recorded Confirmed albuterol sulfate 90 mcg/actuation 2 puff inhalation Q6H PRN Wheezing 12/23/19 11/02/21 aerosol inhaler bisacodyl 5 mg tablet,delayed 10 mg PO BEDTIME 12/23/19 11/02/21 release clopidogrel 75 mg tablet 75 mg PO DAILY 12/23/19 11/02/21 fluticasone 250 mcg-salmeterol 50 1 inh inhalation BID 12/23/19 11/02/21 mcg/dose blistr powdr for inhalation (Advair Diskus) furosemide 20 mg tablet 10 mg PO QAM 12/23/19 11/02/21 gabapentin 100 mg capsule 100 mg PO TID 12/23/19 11/02/21 hydrochlorothiazide 12.5 mg tablet 12.5 mg PO DAILY 12/23/19 11/02/21 montelukast 10 mg tablet 10 mg PO BEDTIME 12/23/19 11/02/21 sertraline 50 mg tablet 50 mg PO DAILY 12/23/19 11/02/21 tiotropium bromide 18 mcg capsule 1 cap inhalation DAILY 12/23/19 11/02/21 with inhalation device (Spiriva with HandiHaler) calcium carbonate 600 mg-vitamin 1 tab PO QAM 11/22/20 11/02/21 D3 10 mcg (400 unit) tablet triamcinolone acetonide 0.1 % 1 appl topical DAILY 11/22/20 11/02/21 topical cream amitriptyline 25 mg tablet 25 mg PO BEDTIME 08/04/21 11/02/21 cyanocobalamin (vitamin B-12) mcg IM 08/04/21 08/04/21 1,000 mcg/mL injection solution melatonin 5 mg tablet 5 mg PO BEDTIME 08/04/21 11/02/21 cyanocobalamin (vitamin B-12) 1,000 mcg PO QAM 10/24/21 11/02/21 1,000 mcg tablet folic acid 1 mg tablet 1 mg PO QAM 10/24/21 11/02/21 Previous Rx's Medication Instructions Recorded tramadol 50 mg tablet 50 mg PO Q8H #90 tabs 06/29/20 albuterol sulfate 1.25 mg/3 mL 2.5 mg (6 mL) inhalation Q4-6H PRN 12/30/20 solution for nebulization shortness of breath or wheezing 30 days #90 mL acetaminophen 650 mg 650 mg PO Q8H PRN pain #90 tabs 04/21/21 tablet,extended release benzonatate 100 mg capsule 100 mg PO TID 30 days #90 caps 05/09/21 ipratropium 0.5 mg-albuterol 3 mg 3 ml inhalation QID Excerbation of 05/09/21 (2.5 mg base)/3 mL nebulization copd 30 days #180 mL soln oxybutynin chloride 10 mg 10 mg PO DAILY OAB 30 days #90 tabs 07/28/21 tablet,extended release 24 hr azithromycin 250 mg tablet 250 mg PO 3XW SEVERE ASTHMA /COPD 08/04/21 30 days #13 tabs prednisone 5 mg tablet 5 mg PO DAILY SEVERE ASTHMA 30 08/04/21 days #30 tabs fluticasone 500 mcg-salmeterol 50 1 inh inhalation BID ASTHMA/COPD 10/25/21 mcg/dose blistr powdr for 30 days #60 ea inhalation (Advair Diskus) Allergies Allergy/AdvReac Type Severity Reaction Status Date / Time latex [LATEX] Allergy Severe DIFFICULTY Verified 10/25/21 12:00 BREATHING aspirin [Aspirin] Allergy Intermediate ITCHING, Verified 10/25/21 12:00 itchiness ciprofloxacin [From CIPRO] Allergy Intermediate DIAPHORESIS Verified 10/25/21 12:00 /PURITIS Penicillins [PENICILLINS] Allergy Unknown UNKNOWN Verified 10/25/21 12:00 HEMALATHA Inhibitors AdvReac Intermediate COUGH Verified 11/02/21 10:37 [HEMALATHA INHIBITORS] Review of Systems Review of Systems: Constitutional : No Weight loss, No Fever, No Chills, No Night Sweats, No Fatigue, No Malaise ENT/Mouth : No Hearing loss, No Ear Pain, No Nasal Congestion, No Sinus Pain, No Hoarseness, No sore throat, No Rhinorrhea, No Swallowing Difficulty Eyes: No Eye Pain, No Swelling, No Redness, No Foreign Body, No Discharge, No Vision Changes Cardiovascular : No Chest Pain, No SOB, No Dyspnea on Exertion, No Orthopnea, No Edema, No Palpitations Respiratory : Complaining of cough more than usual, wheezing, shortness of breath Gastrointestinal : No Nausea, No Vomiting, No Diarrhea, No Constipation, No abdominal Pain, No Hematochezia, No Melena Genitourinary : no irregular bleeding, No Dysuria, No Urinary Frequency, No Hematuria, No Urinary Incontinence, No Urgency, No Flank Pain, No Urinary Flow Changes, No Hesitancy Musculoskeletal : No joint pain, No Myalgias, No Joint Swelling Skin : No Skin Lesions, No rash Neuro : No Weakness, No Numbness, No Paresthesias, No Loss of Consciousness, No Dizziness, No Headache Psych : No Anxiety/Panic, No Depression, No SI/HI/AH/VH, No Social Issues, Heme/Lymph: No Bruising, No Bleeding,No Lymphadenopathy Endocrine : No Polyuria, No Polydipsia, No Temperature Intolerance PMFSH Past Medical History Medical History Allergic rhinitis Asthma Bronchitis COPD (chronic obstructive pulmonary disease) COPD (chronic obstructive pulmonary disease) COPD exacerbation Family history of GERD History of arthritis History of COPD History of depression History of enuresis History of urinary incontinence Hx of allergic rhinitis Hx of cardiac pacemaker Hx of coronary artery disease Hx of diabetes mellitus Hx of drug abuse Hx of essential hypertension Hx of hyperlipidemia Hx of migraines Hx of osteoarthritis Hx of pilonidal cyst Overactive bladder Surgical History History of epidermal inclusion cyst excision Hx laparoscopic cholecystectomy Hx of aortic valve replacement Social History Social History Household Members: Children Housing: Apartment Alcohol intake: never Patient Tobacco Use Status: Current everyday Tobacco user Cigarettes Per Day: 3 Smoked in Last 30 Days: Yes Use of substances other than those prescribed or required for medical reasons: No Patient : No service: No Current occupational status: unemployed Physical Exam Vital Signs: Vital Signs: Last Vital Signs Temp 99.1 F 11/07/21 05:56 Pulse 73 11/07/21 06:02 Resp 22 H 11/07/21 06:02 BP 114/58 L 11/07/21 05:56 Pulse Ox 94 11/07/21 05:56 O2 Del Method 11/07/21 05:56 BMI result Body Mass Index 37.1 Const: Other: Appearance: Alert. Oriented X3. No acute distress. Eyes: Pupils equal, round and reactive to light. ENT: Pharynx normal. Neck: Normal inspection. Neck supple. No lymph nodes noted. No crepitus CVS: Normal heart rate and rhythm. Pulses normal. Normal S1 and S2 Respiratory: Tachypneic, bilateral expiratory wheezing, decreased breath s ounds, speaking in full sentences Abdomen: Soft and nontender. No rigidity. No distention. Skin: Skin warm and dry. Normal skin color. Normal skin turgor. Extremities: No lower extremity edema. No Lacerations. No Rash Neuro: Oriented X 3. No motor deficit. No sensory deficit. Moving all extrem ities. No slurred speech. CN 2 through 12 grossly intact Psych: calm, cooperative, normal affect Course Course Course Narrative: Patient received 2 treatments of albuterol 10 mg, magnesium and Solu-Medrol. All of patient's labs are pending. At this time, asthma exacerbation suspected, patient does have history of COPD. Patient denies increased sputum production, no fever no chills, COPD exac erbation not suspected at this time. Sign-out given to Dr. Thomas MDM - SOB/Dyspnea Lab Data Result diagrams: 11/07/21 06:44 11/07/21 06:44 Labs: Lab Results 11/07/21 11/07/21 Range/Units 06:26 06:48 VBG pH 7.44 H (7.32-7.43) VBG pCO2 32 mmHg VBG pO2 79 mmHg VBG HCO3 21 L (22-26) mmol/L VBG O2 Saturation 96.0 % VBG Base Excess -1.3 mmol/L COVID-19 ([facility]) Negative (Negative) COVID-19 Clin Com See Note Discharge Plan Discharge Clinical Impression: Asthma Patient Disposition: Still a Patient Prescriptions: No Action tramadol 50 mg tablet 50 mg PO Q8H Qty: 90 5RF acetaminophen 650 mg tablet extended release 650 mg PO Q8H PRN (Reason: pain) Qty: 90 3RF oxybutynin chloride 10 mg tablet extended release 24 hr 10 mg PO DAILY 30 Days Qty: 90 1RF triamcinolone acetonide 0.1 % cream 1 appl topical DAILY calcium carbonate-vitamin D3 600 mg(1,500mg) -400 unit tablet 1 tab PO QAM gabapentin 100 mg capsule 100 mg PO TID sertraline 50 mg tablet 50 mg PO DAILY bisacodyl 5 mg tablet,delayed release (DR/EC) 10 mg PO BEDTIME hydrochlorothiazide 12.5 mg tablet 12.5 mg PO DAILY furosemide 20 mg tablet 10 mg PO QAM montelukast 10 mg tablet 10 mg PO BEDTIME albuterol sulfate 90 mcg/actuation HFA aerosol inhaler 2 puff inhalation Q6H PRN (Reason: Wheezing) fluticasone propion-salmeterol [Advair Diskus] 250-50 mcg/dose blister with device 1 inh inhalation BID Spiriva with HandiHaler 18 mcg capsule, w/inhalation device 1 cap inhalation DAILY Rx Instructions: puncture 1 cap using device; one dose = 2 inhalations clopidogrel 75 mg tablet 75 mg PO DAILY ipratropium-albuterol 0.5 mg-3 mg(2.5 mg base)/3 mL solution for nebulization 3 ml inhalation QID 30 Days Qty: 180 3RF benzonatate 100 mg capsule 100 mg PO TID 30 Days Qty: 90 3RF cyanocobalamin (vitamin B-12) 1,000 mcg/mL solution IM melatonin 5 mg tablet 5 mg PO BEDTIME amitriptyline 25 mg tablet 25 mg PO BEDTIME azithromycin 250 mg tablet 250 mg PO 3XW 30 Days Qty: 13 3RF prednisone 5 mg tablet 5 mg PO DAILY 30 Days Qty: 30 3RF albuterol sulfate 1.25 mg/3 mL solution for nebulization 2.5 mg inhalation Q4-6H PRN (Reason: shortness of breath or wheezing) 30 Days Qty: 90 2RF folic acid 1 mg tablet 1 mg PO QAM cyanocobalamin (vitamin B-12) 1,000 mcg tablet 1,000 mcg PO QAM fluticasone propion-salmeterol [Advair Diskus] 500-50 mcg/dose blister with device 1 inh inhalation BID 30 Days Qty: 60 5RF
[2021-11-07] MEDS: Albuterol Sulfate (0.083%) 2.5 MG/3 ML VIAL.NEB 10 MG INHALE (06:00)
--- NOTE | 2021-11-07 06:19 | PC.NURSE ---
Iv started for RN, notified RN Ann. 22g left forearm
[2021-11-07] MEDS: Magnesium Sulfate/H2O 2 GM/50 ML PIGGYBACK IV (06:20)
[2021-11-07] MEDS: methylPREDNISolone Sod Succ 125 MG/2 ML VIAL IVPUSH (06:21)
[2021-11-07 06:44] LABS: IDNOW Serial# 16C4AD1C
[2021-11-07 06:45] LABS: COVID-19 Test Negative (Negative)
[2021-11-07 06:52] LABS: MANUAL DIFF FLAG NO
[2021-11-07 06:55] LABS: VBG Base Excess -1.3 mmol/L; VBG HCO3 21 mmol/L (22-26); VBG pCO2 32 mmHg; VBG pH 7.44 (7.32-7.43); VBG pO2 79 mmHg
[2021-11-07 06:55] LABS: Venous Blood Gas Refer to POC result
[2021-11-07 07:00] LABS: Basophils Absolute Auto 0.1 X10*3/uL (0.0-0.2); Basophils Percent Auto 0.3 % (0-2); Eosinophils Absolute Auto 0.5 X10*3/uL (0.0-0.4); Eosinophils Percent Auto 2.7 % (0-4); Hematocrit 44.5 % (37.0-47.0); Hemoglobin 14.5 g/dl (12.0-16.0); Imm Gran Abs Auto 0.07 X10*3/uL (0.00-0.03); Imm Gran Pct Auto 0.4 % (0.0-0.4); Lymphocytes Absolute Auto 3.3 X10*3/uL (1.2-4.9); Lymphocytes Percent Auto 19.8 % (20-40); Mean Corpuscular HGB Conc 32.6 g/dl (31.0-35.0); Mean Corpuscular Hemoglobin 29.5 pg (27.0-33.0); Mean Corpuscular Volume 90.6 fL (80.0-98.0); Mean Platelet Volume 9.9 fL (9.4-12.3); Monocytes Absolute Auto 1.2 X10*3/uL (0.1-1.2); Monocytes Percent Auto 7.5 % (2-11); Neutrophils Absolute Auto 11.3 x10*3/uL (2.0-8.3); Neutrophils Percent Auto 69.3 % (45-73); Platelet Count 343 X10*3/uL (160-400); Red Blood Count 4.91 X10*6/uL (4.20-5.50); Red Cell Distribution Width 13.3 % (11.0-16.0); White Blood Count 16.4 X10*3/uL (4.8-10.8)
[2021-11-07 07:06] LABS: Prothrombin Time 11.9 SEC (10.0-13.1)
[2021-11-07 07:11] LABS: Alanine Aminotransferase 35 U/L (0-31); Albumin Level 4.2 g/dL (3.5-5.0); Alkaline Phosphatase 64 U/L (39-117); Anion Gap 19 (12-20); Aspartate Amino Transferase 41 U/L (5-31); Bilirubin Direct 0.2 mg/dL (0.0-0.5); Bilirubin Total 0.4 mg/dL (0.0-1.0); Blood Urea Nitrogen 17 mg/dL (9-16); Calcium 9.1 mg/dL (8.4-10.2); Carbon Dioxide 20 mmol/L (22-29); Chloride 106 mmol/L (96-108); Estimated Glomerular Filt Rate > 60; Glucose Random 118 mg/dL (60-115); Potassium 4.6 mmol/L (3.3-5.1); Sodium 140 mmol/L (135-145); Total Protein 7.4 g/dL (6.5-8.0)
[2021-11-07 07:17] LABS: B Type Natriuretic Peptide 136 pg/mL (<100); Troponin-I High Sensitivity 8.9 ng/L (<3.5-17.0)
[2021-11-07 07:17] LABS: Glucose, Whole Blood 127 mg/dL (60-115)
[2021-11-07] MEDS: guaiFEN/Codeine SF 200/20/10ML 10 ML LIQUID PO (08:27)
--- NOTE | 2021-11-07 10:24 | P.HPHOSP_ITS ---
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 recently had IgE level and eosinophil level checked ,both within normal range presented to [facility] due to worsening shortness of breath , chest tightness and cough productive of yellow phlegm, she denies associated fever chills, no recent history of travel, no sick contacts patient continued to smoke 2 cigarettes a day has been cutting back gradually, admits compliance to all home medications in the emergency room patient noted to have bilateral expiratory wheeze and tachypnea treated with hour long updraft treatment, IV steroids, magnesium and empiric antibiotic but since patient continued to have chest tightness, associated with bilateral wh eeze she is being admitted to [facility] for COPD exacerbation. Review of Systems Review of Systems: [employer] no headache no dizziness CVS chest pain with coughing, no palpitation GI no nausea, no vomiting, no abdominal pain no urinary frequency, no urgency skin no rash musculoskeletal no pain, no deformity Yes all other systems are reviewed and are negative [facility] Medical History Allergic rhinitis Asthma Bronchitis COPD (chronic obstructive pulmonary disease) COPD (chronic obstructive pulmonary disease) COPD exacerbation Family history of GERD History of arthritis History of COPD History of depression History of enuresis History of urinary incontinence Hx of allergic rhinitis Hx of cardiac pacemaker Hx of coronary artery disease Hx of diabetes mellitus Hx of drug abuse Hx of essential hypertension Hx of hyperlipidemia Hx of migraines Hx of osteoarthritis Hx of pilonidal cyst Overactive bladder Pertinent family history: Mother has asthma and arthritis, father is diseased, sister of car crash she also had asthma and COPD. Surgical History History of epidermal inclusion cyst excision Hx laparoscopic cholecystectomy Hx of aortic valve replacement Social History Household Members: Children Housing: Apartment Alcohol intake: never Patient Tobacco Use Status: Current everyday Tobacco user Cigarettes Per Day: 3 Smoked in Last 30 Days: Yes Use of substances other than those prescribed or required for medical reasons: No Advance Directives: No Advance Directives Information Provided: No Patient : No service: No Current occupational status: unemployed and disabled Meds Allergies Allergy/AdvReac Type Severity Reaction Status Date / Time latex [LATEX] Allergy Severe DIFFICULTY Verified 10/25/21 12:00 BREATHING aspirin [Aspirin] Allergy Intermediate ITCHING, Verified 10/25/21 12:00 itchiness ciprofloxacin [From CIPRO] Allergy Intermediate DIAPHORESIS Verified 10/25/21 12:00 /PURITIS Penicillins [PENICILLINS] Allergy Unknown UNKNOWN Verified 10/25/21 12:00 HEMALATHA Inhibitors AdvReac Intermediate COUGH Verified 11/02/21 10:37 [HEMALATHA INHIBITORS] Active Medications: Current Medications Acetaminophen (Acetaminophen 325 Mg Tablet) 650 mg PO Q6H PRN PRN Reason: Pain, Mild (Pain Scale 1-3) Enoxaparin Sodium (Enoxaparin Sodium 40 Mg/0.4 Ml Syringe) 40 mg SUBCUT Q24H [facility] Melatonin (Melatonin 3 Mg Tablet) 3 mg PO BEDTIME PRN PRN Reason: Insomnia Ondansetron HCl (Ondansetron Hcl 4 Mg/2 Ml Vial) 4 mg IVPUSH Q8H PRN PRN Reason: Nausea and Vomiting Pharmacy Consult (Consult Rx Perform Med Rec) 1 each MISCELLANE ONCE PRN PRN Reason: Consult order Sodium Chloride (0.9 % Sodium Chloride Flush 3 Ml Syringe) 3 ml IVFLUSH QSHIFT [facility] Home Medications Medication Instructions Recorded Confirmed Last Taken Type albuterol sulfate 90 mcg/actuation 2 puff inhalation Q6H PRN Wheezing 12/23/19 11/07/21 Unknown History aerosol inhaler bisacodyl 5 mg tablet,delayed 10 mg PO BEDTIME 12/23/19 11/07/21 Unknown History release clopidogrel 75 mg tablet 75 mg PO DAILY 12/23/19 11/07/21 11/06/21 History furosemide 20 mg tablet 10 mg PO DAILY 12/23/19 11/07/21 11/06/21 History gabapentin 100 mg capsule 100 mg PO TID 12/23/19 11/07/21 11/06/21 History hydrochlorothiazide 12.5 mg tablet 12.5 mg PO DAILY 12/23/19 11/07/21 11/06/21 History montelukast 10 mg tablet 10 mg PO BEDTIME 12/23/19 11/07/21 Unknown History sertraline 50 mg tablet 50 mg PO DAILY 12/23/19 11/07/21 11/06/21 History tiotropium bromide 18 mcg capsule 1 cap inhalation DAILY 12/23/19 11/07/21 11/06/21 History with inhalation device (Spiriva with HandiHaler) calcium carbonate 600 mg-vitamin 1 tab PO DAILY 11/22/20 11/07/21 11/06/21 History D3 10 mcg (400 unit) tablet amitriptyline 25 mg tablet 25 mg PO BEDTIME 08/04/21 11/07/21 Unknown History melatonin 5 mg tablet 5 mg PO BEDTIME 08/04/21 11/07/21 Unknown History cyanocobalamin (vitamin B-12) 1,000 mcg PO QAM 10/24/21 11/07/21 11/06/21 H istory 1,000 mcg tablet folic acid 1 mg tablet 1 mg PO QAM 10/24/21 11/07/21 11/06/21 History azithromycin 250 mg tablet 250 mg PO MOWEFR SEVERE ASTHMA 11/07/21 11/07/21 Unknown History /COPD Physical Exam Vital Signs and Narrative: Vital Signs: Last Vital Signs Temp 98.1 F 11/07/21 07:04 Pulse 54 11/07/21 07:04 Resp 18 11/07/21 07:04 BP 143/66 H 11/07/21 07:04 Pulse Ox 93 11/07/21 07:04 O2 Del Method 11/07/21 07:04 BMI result Body Mass Index 37.1 Const: Other: General appears dyspneic while talking, no use of accessory muscles anicteric sclera Neck no JVD. CVS regular rate rhythm, Respiratory lungs diminished breath sound, bilateral expiratory wheeze Gastrointestinal abdomen soft, nontender, bowel sounds audible, no guarding , no rigidity. Extremities no edema. Neuro nonfocal Skin no rash psych appropriate affect Results Labs CBC and Chem 7: 11/07/21 06:44 11/07/21 06:44 Labs: Laboratory Results - last 24 hr 11/07/21 11/07/21 11/07/21 06:26 06:44 06:44 MCV 90.6 MCH 29.5 MCHC 32.6 RDW 13.3 Plt Count 343 MPV 9.9 Immature Gran % (Auto) 0.4 Neut % (Auto) 69.3 Lymph % (Auto) 19.8 L Casey % (Auto) 7.5 Eos % (Auto) 2.7 Baso % (Auto) 0.3 Lymph # (Auto) 3.3 Casey # (Auto) 1.2 Eos # (Auto) 0.5 H Baso # (Auto) 0.1 Abs Immat Gran (auto) 0.07 H Absolute Neuts (auto) 11.3 H Absolute Nucleated RBC 0.000 Nucleated RBC % (auto) 0.0 PT INR VBG pH VBG pCO2 VBG pO2 VBG HCO3 VBG O2 Saturation VBG Base Excess Anion Gap 19 Estim Creat Clear Calc 70.0 Estimated GFR > 60 POC Glucose Random Glucose 118 H Lactic Acid Calcium 9.1 Total Bilirubin 0.4 Direct Bilirubin 0.2 AST 41 H D ALT 35 H Alkaline Phosphatase 64 D B-Natriuretic Peptide Total Protein 7.4 Albumin 4.2 COVID-19 ([facility]) Negative COVID-19 Clin Com See Note 11/07/21 11/07/21 11/07/21 06:44 06:44 06:48 MCV MCH MCHC RDW Plt Count MPV Immature Gran % (Auto) Neut % (Auto) Lymph % (Auto) Casey % (Auto) Eos % (Auto) Baso % (Auto) Lymph # (Auto) Casey # (Auto) Eos # (Auto) Baso # (Auto) Abs Immat Gran (auto) Absolute Neuts (auto) Absolute Nucleated RBC Nucleated RBC % (auto) PT 11.9 INR 1.0 VBG pH 7.44 H VBG pCO2 32 VBG pO2 79 VBG HCO3 21 L VBG O2 Saturation 96.0 VBG Base Excess -1.3 Anion Gap Estim Creat Clear Calc Estimated GFR POC Glucose Random Glucose Lactic Acid Calcium Total Bilirubin Direct Bilirubin AST ALT Alkaline Phosphatase B-Natriuretic Peptide 136 H Total Protein Albumin COVID-19 ([facility]) COVID-19 Eko Com 11/07/21 11/07/21 07:13 07:54 MCV MCH MCHC RDW Plt Count MPV Immature Gran % (Auto) Neut % (Auto) Lymph % (Auto) Casey % (Auto) Eos % (Auto) Baso % (Auto) Lymph # (Auto) Casey # (Auto) Eos # (Auto) Baso # (Auto) Abs Immat Gran (auto) Absolute Neuts (auto) Absolute Nucleated RBC Nucleated RBC % (auto) PT INR VBG pH VBG pCO2 VBG pO2 VBG HCO3 VBG O2 Saturation VBG Base Excess Anion Gap Estim Creat Clear Calc Estimated GFR POC Glucose 127 H Random Glucose Lactic Acid 1.0 Calcium Total Bilirubin Direct Bilirubin AST ALT Alkaline Phosphatase B-Natriuretic Peptide Total Protein Albumin COVID-19 ([facility]) COVID-19 Clin Com Imaging Radiologist's Impressions: Impressions Chest X-Ray 11/07/21 06:33 IMPRESSION: No definite acute findings. If symptoms persist, further assessment with PA and lateral radiographs is advised. Assessment and Plan (1) Acute exacerbation of chronic obstructive airways disease: Status: Acute Plan 60-year-old female patient with history of chronic bronchial asthma /COPD presented to [facility] with symptoms of shortness of breath chest tightness and cough diagnosed to be in acute COPD/asthma exacerbation. acute COPD/asthma exacerbation will admit to medical floor placed on IV steroids, scheduled and as needed nebulizer treatment doxycycline IV b.i.d. oxygen/cough medication as needed Tobacco use disorder gradually cutting back currently smoking 2-3 cigarettes a day counseling done Hyperglycemia likely due to prednisone will follow blood sugar Hypertension follow BP resume hydrochlorothiazide if stable BP History of coronary artery disease/hyperlipidemia /osteoarthritis/urinary incontinence/depression will continue all home medications Code status full code DVT prophylaxis Lovenox subQ In my clinical judgment patient will need two night inpatient stay due to acute COPD exacerbation requiring IV steroids and scheduled updraft with history of multiple comorbidities. Quality Stroke Does the patient have a stroke diagnosis?: No VTE Prior VTE?: No VTE Risk Level:: Medical - moderate - high VTE Device Contraindication: Treatment Not Indicated VTE Drug Contraindication: N/A - Med Ordered
[2021-11-07] MEDS: Enoxaparin Sodium 40 MG/0.4 ML SYRINGE SUBCUT (10:44)
[2021-11-07] MEDS: Albuterol/Iprat 2.5/0.5MG 3 ML AMPUL.NEB INHALE ×3 (11:32→20:21)
--- NOTE | 2021-11-07 12:02 | PHA.MEDREC ---
Pharmacy Consult ? Medication Reconciliation Pharmacy has completed the medication reconciliation. Pt had list at bedside, however it did not contain every medication in her recent claim history. I did verify with her that everything that was filled in September she is in fact taking.
[2021-11-07] MEDS: guaiFENesin DM 200/20/10 ML 10 ML SYRUP PO ×2 (14:27→20:01)
[2021-11-07] MEDS: Gabapentin 100 MG CAPSULE PO ×2 (14:27→20:01)
[2021-11-07] MEDS: Clopidogrel Bisulfate 75 MG TABLET PO (14:27)
[2021-11-07] MEDS: 0.9 % Sodium Chloride Flush 3 ML SYRINGE IVFLUSH (17:23)
[2021-11-07] MEDS: methylPREDNISolone Sod Succ 125 MG/2 ML VIAL 60 MG IVPUSH (17:23)
[2021-11-07 17:31] LABS: Glucose, Whole Blood 220 mg/dL (60-115)
--- NOTE | 2021-11-07 19:13 | PC.NURSE ---
report received from [employer] RN
--- NOTE | 2021-11-07 19:54 | PC.NURSE ---
pt resting comfortably on stretcher. no current complaints. dinner eaten. call basilio within reach. will continue to monitor
[2021-11-07] MEDS: Doxycycline Hyclate 100 MG in 0.9 % Sodium Chloride 250 ML 166.67 MG IV (20:00)
[2021-11-07] MEDS: Amitriptyline HCl 25 MG TABLET PO (20:01)
[2021-11-07] MEDS: Montelukast Sodium 10 MG TABLET PO (20:01)
[2021-11-07] MEDS: bisacodyL 5 MG TABLET.DR 10 MG PO (20:01)
[2021-11-07] MEDS: Acetaminophen 325 MG TABLET 650 MG PO (23:44)
[2021-11-08] MEDS: 0.9 % Sodium Chloride Flush 3 ML SYRINGE IVFLUSH ×2 (02:17→08:11)
[2021-11-08] MEDS: methylPREDNISolone Sod Succ 125 MG/2 ML VIAL 60 MG IVPUSH (06:37)
[2021-11-08 07:28] LABS: Glucose, Whole Blood 94 mg/dL (60-115)
[2021-11-08 07:58] VITALS: BP 150/73; PULSE 72; RESP 18; O2SAT 95
[2021-11-08] MEDS: Albuterol/Iprat 2.5/0.5MG 3 ML AMPUL.NEB INHALE ×2 (08:10→10:49)
[2021-11-08] MEDS: Doxycycline Hyclate 100 MG in 0.9 % Sodium Chloride 250 ML 250 MG IV (08:10)
[2021-11-08 08:11] VITALS: PULSE 74; RESP 18; O2SAT 96
[2021-11-08] MEDS: guaiFENesin DM 200/20/10 ML 10 ML SYRUP PO (08:11)
[2021-11-08] MEDS: Gabapentin 100 MG CAPSULE PO (08:11)
[2021-11-08] MEDS: Cyanocobalamin (Vitamin B-12) 1,000 MCG TABLET 1000 MCG PO (08:12)
[2021-11-08] MEDS: Furosemide 20 MG TABLET 10 MG PO (08:12)
[2021-11-08] MEDS: Clopidogrel Bisulfate 75 MG TABLET PO (08:12)
[2021-11-08] MEDS: Sertraline HCL 50 MG TABLET PO (08:12)
[2021-11-08] MEDS: Folic Acid 1 MG TABLET PO (08:12)
[2021-11-08 10:49] VITALS: PULSE 63; RESP 18; O2SAT 95
[2021-11-08] MEDS: Enoxaparin Sodium 40 MG/0.4 ML SYRINGE SUBCUT (10:51)
--- NOTE | 2021-11-08 11:34 | MHC.CM.PN ---
PATIENT REPORTS SHE LIVES WITH HER MOTHER AND HAS FAMILY AND COMMERCIAL FISHERMAN AVAILABLE. 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 D/C PLAN: HOME RESUME COMMERCIAL FISHERMAN SERVICE
--- NOTE | 2021-11-08 12:28 | PC.NURSE ---
Pt passed ambulation trial, remained at at 96% on RA.
--- NOTE | 2021-11-08 12:28 | PC.NURSE ---
walking 02 test done, patient had 02 sat of 97 while sitting and a stable 02 sat of 96 -97 on RA during test, while walking and talking. RN aware.
--- NOTE | 2021-11-08 12:58 | P.DS_ITS ---
DS: Providers Provider Date of Service: 11/08/21 Date of admission: 11/07/21 10:18 Primary care physician: [facility] DS: Diagnosis Discharge Diagnosis (1) Acute exacerbation of chronic obstructive airways disease: Status: Acute DS: Summary Hospital Course Hospital Course: History of presenting illness Date of Service: 11/07/21 Attending physician on admission: Shakir Roland Chief Complaint: Shortness of breath ?60-year-old female patient with past medical history significant for overlap syndrome, chronic allergic rhinitis on DuoNeb, Advair, Singulair, Spiriva, being closely followed by 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 , chest tightness and cough productive of yellow phlegm, she denies associated fever chills, no recent history of travel, no sick contacts patient continued to smoke 2 cigarettes a day has been cutting back gradually, admits compliance to all home medications in the emergency room patient noted to have bilateral expiratory wheeze and tachypnea treated with hour long updraft treatment, IV steroids, magnesium and empiric antibiotic but since patient continued to have chest tightness, associated with bilateral wheeze she is being admitted to [facility] for COPD exacerbation. Hospital course 60-year-old female patient with history of chronic bronchial asthma /COPD? presented to [facility] with symptoms of shortness of breath, chest tightness and cough, diagnosed to have acute COPD/asthma exacerbation Patient has known history of chronic bronchial asthma and associated chronic allergic rhinitis being followed closely by Dr. Simpson on prophylactic antibiotics and low-dose steroids patient admitted to medical floor was placed on IV steroids scheduled and as needed nebulizer treatment and doxycycline and patient responded well to above treatment doing significantly better her oxygenation is stable on room air patient continued to have expiratory wheeze but she is adamant that she wishes to be discharged home to take care of her mother who lives alone, since patient oxygenation is stable at rest and with ambulation therefore she is being discharged home on tapering dose of steroids, scheduled and as needed updraft treatment she is recommended to return to [facility] with worsening symptoms of shortness of breath or chest discomfort she has been strongly advised to abstain from smoking she currently smokes 3 cigarettes a day counseling done. Patient noted to have Hyperglycemia likely due to prednisone , she has recommended low-calorie diet and outpatient follow-up with PCP to get evaluated for diabetes Hypertension continue home medications History of coronary artery disease/hyperlipidemia /osteoarthritis/urinary incontinence/depression recommend to resume all home medications. Time Spent with Patient Time attestation: Total time spent providing and/or coordinating discharge services: Discharge coordination time: Greater than 30 minutes Quality: Safe Use of Opioids Does Pt have an Active Cancer Diagnosis on the Problem List?: No Quality: Stroke Does the patient have a stroke diagnosis?: No Physical Exam Vital Signs: Vital Signs: Last Vital Signs Temp 97.3 F 11/07/21 23:54 Pulse 63 11/08/21 10:49 Resp 18 11/08/21 10:49 BP 150/73 H 11/08/21 07:58 Pulse Ox 95 11/08/21 07:58 O2 Del Method 11/08/21 07:58 BMI result Body Mass Index 37.1 Const: Other: General? resting c omfortably, no use of accessory musc les anicteric scle ra Neck? no JVD. C VS? regular rate r hythm, Respiratory lungs? good entry bilateral expirat ory wheeze Gastroi ntestinal abdomen soft, nontender, b owel sounds audibl e, no guarding , n o rigidity. Extrem ities no edema. Ne uro nonfocal Skin no rash psych appr opriate affect DS: Data Data Completed and Pending Labs on day of discharge: Laboratory Results - last 24 hr 11/07/21 11/08/21 17:18 07:25 POC Glucose 220 H 94 Preliminary micro results at discharge 11/07/21 07:54 Blood Culture - Preliminary Blood - Venous No growth after 24 hours. 11/07/21 07:54 Blood Culture - Preliminary Blood - Venous No growth after 24 hours. Discharge Plan Discharge Patient Disposition: Home, Self-Care Discharge Diagnosis: Acute COPD/asthma exacerbation Tobacco use disorder Referrals: [place] [Primary Care Provider] - 1 Week Discharge Medications: New dextromethorphan-guaifenesin 10-100 mg/5 mL Syrup 10 ml PO TID PRN (Reason: cough) Qty: 237 0RF prednisone 10 mg tablet See Taper PO DAILY Qty: 30 0RF Taper: Prednisone 40 mg daily for 3 Days and 0 Hour 30 mg daily for 3 Days and 0 Hour 20 mg daily for 3 Days and 0 Hour 10 mg daily for 3 Days and 0 Hour ipratropium-albuterol 0.5 mg-3 mg(2.5 mg base)/3 mL solution for nebulization 3 ml inhalation QID Qty: 180 0RF Continued acetaminophen 650 mg tablet extended release 650 mg PO Q8H PRN (Reason: pain) Qty: 90 3RF oxybutynin chloride 10 mg tablet extended release 24 hr 10 mg PO DAILY 30 Days Qty: 90 1RF calcium carbonate-vitamin D3 600 mg(1,500mg) -400 unit tablet 1 tab PO DAILY azithromycin 250 mg tablet 250 mg PO MOWEFR ipratropium-albuterol 0.5 mg-3 mg(2.5 mg base)/3 mL solution for nebulization 3 ml inhalation QID 30 Days Qty: 180 3RF gabapentin 100 mg capsule 100 mg PO TID sertraline 50 mg tablet 50 mg PO DAILY bisacodyl 5 mg tablet,delayed release (DR/EC) 10 mg PO BEDTIME hydrochlorothiazide 12.5 mg tablet 12.5 mg PO DAILY furosemide 20 mg tablet 10 mg PO DAILY montelukast 10 mg tablet 10 mg PO BEDTIME albuterol sulfate 90 mcg/actuation HFA aerosol inhaler 2 puff inhalation Q6H PRN (Reason: Wheezing) Spiriva with HandiHaler 18 mcg capsule, w/inhalation device 1 cap inhalation DAILY Rx Instructions: puncture 1 cap using device; one dose = 2 inhalations clopidogrel 75 mg tablet 75 mg PO DAILY melatonin 5 mg tablet 5 mg PO BEDTIME amitriptyline 25 mg tablet 25 mg PO BEDTIME folic acid 1 mg tablet 1 mg PO QAM cyanocobalamin (vitamin B-12) 1,000 mcg tablet 1,000 mcg PO QAM fluticasone propion-salmeterol [Advair Diskus] 500-50 mcg/dose blister with device 1 inh inhalation BID 30 Days Qty: 60 5RF Discontinued prednisone 5 mg tablet 5 mg PO DAILY 30 Days Qty: 30 3RF Discharge Orders: Discharge Order (Routine); Ordered 11/08/21 Ordered By: Shakir Roland Diet: Advance to usual diet Activity on Discharge: As tolerated Stand Alone Forms: Patient Portal Discharge page Care Plan Goals: Acute exacerbation of overlap syndrome take prednisone tapering dose and after finishing prednisone taper resume home dose of prednisone 5 mg daily Take DuoNeb updraft 4 times a day for next 3-5 days and use DuoNeb every 2-3 hours as needed for shortness of breath Follow low-calorie diet since noted to have elevated blood sugars related to prednisone, outpatient follow-up with primary care physician for further workup to rule out diabetes Strongly recommended to abstain from smoking Recommend close outpatient follow-up with pulmonology Return to ER with worsening shortness of breath, or chest tightness Health Concerns: Continue all home medications as before, return to check with worsening shortness of breath Plan of Treatment: Outpatient follow-up with pulmonology in 1-2 weeks, follow-up with primary care physician for hyperglycemia call to make an appointment in next 1-2 weeks Assessment: As per discharge summary
--- NOTE | 2021-11-08 12:59 | MHC.CM.PN ---
PATIENT IS MEDICALLY CLEARED FOR DISCHARGE TODAY; DISCHARGE DISPOSITION IS HOME RESUME [employer]ENT [employer] COUNSEL[employer] SERVICE. PATIENT WILL ARRANGE TRANSPORT.
[2021-11-08 13:04] VITALS: BP 125/67; PULSE 63; RESP 14; O2SAT 96
== END 2021-11-08 13:19 | disposition home or self-care (01) | DRG 140 ==
LOC: HO.ED 08:26 → HO.EDOVER 10:25
PROVIDERS: Admitting Provider Hospitalist; Emergency Provider Emergency Medicine; Visit Provider Hospitalist
DX: J44.1 Chronic obstructive pulmonary disease with (acute) exacerbation (principal); J45.901 Unspecified asthma with (acute) exacerbation; I25.10 Atherosclerotic heart disease of native coronary artery without angina pectoris; E78.5 Hyperlipidemia, unspecified; G43.909 Migraine, unspecified, not intractable, without status migrainosus; N32.81 Overactive bladder; M19.90 Unspecified osteoarthritis, unspecified site; E11.65 Type 2 diabetes mellitus with hyperglycemia; T38.0X5A Adverse effect of glucocorticoids and synthetic analogues, initial encounter; Z95.0 Presence of cardiac pacemaker; Z95.2 Presence of prosthetic heart valve; F17.210 Nicotine dependence, cigarettes, uncomplicated; Z71.6 Tobacco abuse counseling; Z20.822 Contact with and (suspected) exposure to COVID-19; Z91.040 Latex allergy status; Z56.0 Unemployment, unspecified; Z88.0 Allergy status to penicillin; Z88.1 Allergy status to other antibiotic agents; Z88.8 Allergy status to other drugs, medicaments and biological substances; Z79.02 Long term (current) use of antithrombotics/antiplatelets; Z79.51 Long term (current) use of inhaled steroids; Z79.899 Other long term (current) drug therapy
CPT/HCPCS: 36415; 71045; 80048; 80076; 82803; 82947; 83605; 83880; 84484; 85025; 85610; 87040; 87635; 93005; 94640; 99218; 99285; J1650; J2930; J3475

== ENCOUNTER 2021-12-01 10:16 | Outpatient (REF) | payer MEDICAID, SELFPAY ==
--- NOTE | ~2021-12-01 | XR_ITS ---
EXAMINATION: XR HAND, RIGHT CLINICAL INFORMATION: Pain. COMPARISON: Prior radiographs, most recently 11/20/2018. TECHNIQUE: PA, lateral, and oblique views of the right hand. FINDINGS: Bony mineralization is normal. There is an ulnar positive variance. The second through fifth fingers are held in flexion. No fracture or dislocation is seen. The proximal and distal carpal rows are intact. A well-corticated cyst is redemonstrated within the lunate. There is chondrocalcinosis of the triangular ligament. No focal bone erosion or periosteal thickening is seen. There is no focal soft tissue swelling, gas or foreign body. XR/XR hand LT min 3V IMPRESSION: 1. There appears to be a contracture deformity, with the second through fifth fingers held in near full flexion. This appearance is increased from prior radiographs. 2. No fracture or dislocation is seen. 3. No unusual degenerative change is seen. No focal bone erosion is noted. 4. There is chondrocalcinosis, which can be associated with CPPD. EXAMINATION: XR HAND, LEFT CLINICAL INFORMATION: Pain. COMPARISON: Radiographs dated 06/11/2012. TECHNIQUE: PA, lateral, and oblique views of the left hand. FINDINGS: Bony mineralization is normal. There is an ulnar positive variance. No fracture or dislocation. The proximal and distal carpal rows are intact. Again, there are subchondral cysts noted within the carpal bones and in the radial styloid. There is degenerative change of the radiocarpal joint. There is chondrocalcinosis of the triangular ligament and radiocarpal joint. No abnormal bone erosion is seen. There is no periosteal thickening. No focal soft tissue swelling, gas or foreign body. IMPRESSION: 1. No fracture or dislocation is seen. 2. There is degenerative change of the radiocarpal joint. 3. There is chondrocalcinosis, which can be associated with CPPD.
[2021-12-01 10:51] LABS: MANUAL DIFF FLAG NO
[2021-12-01 12:20] LABS: Basophils Percent Auto 0.3 % (0-2); Eosinophils Absolute Auto 0.1 X10*3/uL (0.0-0.4); Eosinophils Percent Auto 0.6 % (0-4); Imm Gran Abs Auto 0.07 X10*3/uL (0.00-0.03); Imm Gran Pct Auto 0.7 % (0.0-0.4); Lymphocytes Absolute Auto 1.2 X10*3/uL (1.2-4.9); Lymphocytes Percent Auto 11.6 % (20-40); Mean Corpuscular HGB Conc 32.7 g/dl (31.0-35.0); Mean Corpuscular Hemoglobin 29.6 pg (27.0-33.0); Mean Corpuscular Volume 90.7 fL (80.0-98.0); Mean Platelet Volume 10.1 fL (9.4-12.3); Monocytes Absolute Auto 0.2 X10*3/uL (0.1-1.2); Monocytes Percent Auto 2.4 % (2-11); Neutrophils Absolute Auto 8.5 x10*3/uL (2.0-8.3); Neutrophils Percent Auto 84.4 % (45-73); Platelet Count 349 X10*3/uL (160-400); Red Cell Distribution Width 13.8 % (11.0-16.0); White Blood Count 10.1 X10*3/uL (4.8-10.8)
[2021-12-01 12:46] LABS: Alanine Aminotransferase 20 U/L (0-31); Albumin Level 4.5 g/dL (3.5-5.0); Alkaline Phosphatase 58 U/L (39-117); Anion Gap 20 (12-20); Aspartate Amino Transferase 22 U/L (5-31); Bilirubin Total 0.4 mg/dL (0.0-1.0); Blood Urea Nitrogen 31 mg/dL (9-16); C Reactive Protein 0.26 mg/dL (< or = 0.50); Carbon Dioxide 25 mmol/L (22-29); Chloride 98 mmol/L (96-108); Estimated Glomerular Filt Rate 51; Glucose Random 136 mg/dL (60-115); Potassium 3.7 mmol/L (3.3-5.1); Sodium 139 mmol/L (135-145); Total Protein 7.4 g/dL (6.5-8.0)
[2021-12-01 13:01] LABS: Erythrocyte Sedimentation Rate 2 MM/HR (0-20)
== END 2021-12-01 10:17 | disposition home or self-care (01) ==
LOC: HO.LAB 10:16
PROVIDERS: PCP Internal Medicine; Visit Provider Nurse Practitioner Family
DX: M79.641 Pain in right hand (principal); M79.642 Pain in left hand; M25.561 Pain in right knee; M25.562 Pain in left knee; M11.20 Other chondrocalcinosis, unspecified site
CPT/HCPCS: 36415; 73130; 73562; 80053; 85025; 85652; 86140; 99212

== ENCOUNTER 2022-01-13 15:19 | Outpatient (REF) | payer MEDICAID, SELFPAY ==
--- NOTE | ~2022-01-13 | MM_ITS ---
EXAMINATION: MM SCREENING DIGITAL BREAST TOMOSYNTHESIS, BILATERAL CLINICAL INFORMATION: Screening. Asymptomatic. The lifetime risk of breast cancer based on the Tyrer-Cuzick Model is 5%. COMPARISON: Mammography: 01/12/2020, 07/09/2018, 07/02/2017 TECHNIQUE: Digital breast tomosynthesis is performed in both the craniocaudal and mediolateral oblique views along with computer-aided detection (CAD). Synthesized 2D images are generated from the tomosynthesis. FINDINGS: There are scattered areas of fibroglandular density (ACR BI-RADS breast composition Category b). There are no significant masses, abnormal calcifications, or other abnormalities. Parenchymal pattern is similar to prior studies and there is no developing density or architectural abnormality. Pacemaker generator overlies and partly obscures right axilla on MLO view. There are no significant changes. MM/MM tomosynthesis screening BI IMPRESSION: No mammographic evidence of malignancy. ASSESSMENT: BI-RADS 1: Negative RECOMMENDATION: Routine annual mammography screening. This patient's information was entered into a reminder system with a target due date for their next mammogram.
== END 2022-01-13 15:20 | disposition home or self-care (01) ==
LOC: HO.MAMMO 15:19
PROVIDERS: PCP Internal Medicine; Visit Provider Internal Medicine
DX: Z12.31 Encounter for screening mammogram for malignant neoplasm of breast (principal)
CPT/HCPCS: 77063; 77067

== ENCOUNTER 2022-03-07 15:26 | Emergency (ER) | payer MEDICAID, SELFPAY ==
[2022-03-07] VITALS (7 sets, daily range): BP systolic 135–154; BP diastolic 72–82; PULSE 60–87; RESP 14–22; TEMP 36.8; O2SAT 92–96; BMI 23.3
--- NOTE | ~2022-03-07 | XR_ITS ---
EXAMINATION: XR CHEST CLINICAL INFORMATION: Shortness of breath COMPARISON: 11/07/2021 TECHNIQUE: Frontal view of the chest was obtained. FINDINGS: Compared to the prior study there's been no interval change once again seen is median sternotomy and heart size upper limits of normal. No evidence of CHF. Right chest wall pacer present with a single lead at the right ventricular apex. No infiltrates, pleural effusions or lung masses are seen. XR/XR chest 1V IMPRESSION: No acute intrathoracic disease.
--- NOTE | 2022-03-07 16:21 | ED_ITS ---
HPI - Asthma General Chief Complaint: Asthma Stated Complaint: SOB W/SHARP PAIN Time Seen by Provider: 03/07/22 16:14 Source: patient Mode of arrival: EMS Limitations: no limitations History of Present Illness HPI Narrative: Patient 61 years old with history of COPD/asthma overlap syndrome, hypertension, infective endocarditis of aortic valve in 2004 status post aortic valve replacement with homograft and pacemaker placement chronic smoker been here frequently for shortness of breath brought by EMS for increased shortness of breath with wheezing since yesterday afternoon tried her nebulizing treatment without much relief saturating 92% room air no fever or chills no chest pain or palpitation Related Data Home Medications Medication Instructions Recorded Confirmed albuterol sulfate 90 mcg/actuation 2 puff inhalation Q6H PRN Wheezing 12/23/19 02/07/22 aerosol inhaler bisacodyl 5 mg tablet,delayed 10 mg PO BEDTIME 12/23/19 02/07/22 release clopidogrel 75 mg tablet 75 mg PO DAILY 12/23/19 02/07/22 furosemide 20 mg tablet 10 mg PO DAILY 12/23/19 02/07/22 gabapentin 100 mg capsule 100 mg PO TID 12/23/19 02/07/22 hydrochlorothiazide 12.5 mg tablet 12.5 mg PO DAILY 12/23/19 02/07/22 montelukast 10 mg tablet 10 mg PO BEDTIME 12/23/19 02/07/22 sertraline 50 mg tablet 50 mg PO DAILY 12/23/19 02/07/22 tiotropium bromide 18 mcg capsule 1 cap inhalation DAILY 12/23/19 02/07/22 with inhalation device (Spiriva with HandiHaler) calcium carbonate 600 mg-vitamin 1 tab PO DAILY 11/22/20 02/07/22 D3 10 mcg (400 unit) tablet amitriptyline 25 mg tablet 25 mg PO BEDTIME 08/04/21 02/07/22 melatonin 5 mg tablet 5 mg PO BEDTIME 08/04/21 02/07/22 cyanocobalamin (vitamin B-12) 1,000 mcg PO QAM 10/24/21 02/07/22 1,000 mcg tablet folic acid 1 mg tablet 1 mg PO QAM 10/24/21 12/01/21 Previous Rx's Medication Instructions Recorded fluticasone 500 mcg-salmeterol 50 1 inh inhalation BID ASTHMA/COPD 10/25/21 mcg/dose blistr powdr for 30 days #60 ea inhalation (Advair Diskus) dextromethorphan-guaifenesin 10 10 ml PO TID PRN cough #237 mL 11/08/21 mg-100 mg/5 mL oral syrup ipratropium 0.5 mg-albuterol 3 mg 3 ml inhalation QID Excerbation of 11/08/21 (2.5 mg base)/3 mL nebulization copd 30 days #180 mL soln prednisone 5 mg tablet 5 mg PO DAILY #30 tabs 11/14/21 oxybutynin chloride 10 mg 10 mg PO DAILY OAB 30 days #30 tabs 01/09/22 tablet,extended release 24 hr acetaminophen 650 mg 650 mg PO Q8H PRN pain #90 tabs 01/14/22 tablet,extended release benzonatate 200 mg capsule 200 mg PO TID PRN cough #30 caps 03/07/22 prednisone 20 mg tablet 40 mg PO DAILY #10 tabs 03/07/22 Allergies Allergy/AdvReac Type Severity Reaction Status Date / Time latex [LATEX] Allergy Severe DIFFICULTY Verified 02/07/22 11:01 BREATHING aspirin [Aspirin] Allergy Intermediate ITCHING, Verified 02/07/22 11:01 itchiness ciprofloxacin [From CIPRO] Allergy Intermediate DIAPHORESIS Verified 02/07/22 11:01 /PURITIS Penicillins [PENICILLINS] Allergy Unknown UNKNOWN Verified 02/07/22 11:01 HEMALATHA Inhibitors AdvReac Intermediate COUGH Verified 02/07/22 11:01 [HEMALATHA INHIBITORS] Review of Systems Review of Systems: Yes all other systems are reviewed and are negative PMFSH Past Medical History Medical History Allergic rhinitis Aortic valve endocarditis Asthma Bronchitis COPD (chronic obstructive pulmonary disease) COPD (chronic obstructive pulmonary disease) COPD exacerbation Family history of GERD Fibromyalgia GERD (gastroesophageal reflux disease) History of arthritis History of depression History of enuresis History of urinary incontinence Hx of allergic rhinitis Hx of cardiac pacemaker Hx of coronary artery disease Hx of diabetes mellitus Hx of drug abuse Hx of essential hypertension Hx of hyperlipidemia Hx of migraines Hx of osteoarthritis Hx of pilonidal cyst MARY (obstructive sleep apnea) Overactive bladder Rheumatoid arthritis Surgical History History of cystoscopy History of epidermal inclusion cyst excision History of hysterectomy History of surgical removal of pilonidal cyst Hx laparoscopic cholecystectomy Hx of aortic valve replacement Hx of bilateral cataract extraction Hx of colonoscopy Social History Social History Household Members: Children Housing: Apartment Alcohol intake: never Patient Tobacco Use Status: Current everyday Tobacco user Cigarettes Per Day: 3 Advance Directives: No Advance Directives Information Provided: Yes service: No Current occupational status: unemployed and disabled Physical Exam Vital Signs: Vital Signs: Last Vital Signs Temp 98.2 F 03/07/22 22:00 Pulse 66 03/07/22 22:00 Resp 15 03/07/22 22:00 BP 135/72 03/07/22 22:00 Pulse Ox 95 03/07/22 22:00 O2 Del Method 03/07/22 22:00 BMI result Body Mass Index 23.3 Appearance: Alert. Oriented X3. No acute distress. Eyes: PERRLA, No Nystagmus ENT: Pharynx normal. Oral Mucosa moist Neck: Normal inspection. Neck supple. CVS: Normal heart rate and rhythm ejection systolic murmur at the base2/6. Pulses normal. Respiratory: No respiratory distress. Equal air entry bilateral, bilateral wheezing no crackles Abdomen: Soft and nontender. Bowel sounds are present, no mass palpable, no CVA tenderness Skin: Skin warm and dry. Normal skin color. Normal skin turgor. Extremities: No lower extremity edema. No calf tenderness Neuro: Oriented X 3. No motor deficit. No sensory deficit.No cerebellar signs , cranial nerves II-XII intact Medications Administered Discontinued Medications Generic Name Dose Route Start Last Admin Trade Name Yovanyq PRN Reason Stop Dose Admin Albuterol Sulfate 2.5 mg/ 5 mg 03/07/22 16:32 03/07/22 18:00 Albuterol Sulfate 2.5 mg INHALE 03/07/22 16:33 5 mg ONCE ONE Administration Albuterol Sulfate 2.5 mg/ 5 mg 03/07/22 18:39 03/07/22 18:52 Albuterol Sulfate 2.5 mg INHALE 03/07/22 18:40 5 mg ONCE ONE Administration Albuterol Sulfate 2.5 mg/ 0 mg 03/07/22 21:16 03/07/22 21:26 Ipratropium [place] 0.5 mg INHALE 03/07/22 21:17 1 each ONCE ONE Administration Furosemide 20 mg 03/07/22 20:28 03/07/22 21:09 Furosemide 20 Mg/2 Ml Vial IVPUSH 03/07/22 20:29 20 mg ONCE ONE Administration Protocol Guaifenesin/Codeine Phosphate 10 ml 03/07/22 20:28 03/07/22 21:01 Guaifen/Codeine Sf 200/20/10ml 10 Ml Liquid PO 03/07/22 20:29 10 ml ONCE ONE Administration Magnesium Sulfate 2 gm in 50 mls @ 100 mls/hr 03/07/22 16:32 03/07/22 18:22 Magnesium Sulfate/H2o IV 03/07/22 17:01 Infused ONCE ONE Infusion Methylprednisolone Sodium Succinate 125 mg 03/07/22 16:32 03/07/22 17:19 Methylprednisolone Sod Succ 125 Mg/2 Ml Vial IVPUSH 03/07/22 16:33 125 mg ONCE ONE Administration Medical Decision Making Medical Decision Making MDM Narrative: Patient with COPD/asthma overlap syndrome with frequent episodes of shortness of breath ambulatory pulse ox 95% after multiple nebulizing treatments. Patient had slightly elevated BNP but chest x-ray was negative for CHF. Patient received IV steroid IV magnesium and nebulizing treatment will discharge patient home follow-up with PCP Lab Data [facility] Lab Attestation statement: I reviewed the patient's lab results. 03/07/22 17:21 03/07/22 17:05 Labs: Lab Results 03/07/22 03/07/22 03/07/22 Range/Units 17:04 17:05 17:05 WBC (4.8-10.8) X10*3/uL RBC (4.20-5.50) X10*6/uL Hgb (12.0-16.0) g/dl Hct (37.0-47.0) % MCV (80.0-98.0) fL MCH (27.0-33.0) pg MCHC (31.0-35.0) g/dl RDW (11.0-16.0) % Plt Count (160-400) X10*3/uL MPV (9.4-12.3) fL Immature Gran % (Auto) (0.0-0.4) % Neut % (Auto) (45-73) % Lymph % (Auto) (20-40) % Holt % (Auto) (2-11) % Eos % (Auto) (0-4) % Baso % (Auto) (0-2) % Lymph # (Auto) (1.2-4.9) X10*3/uL Holt # (Auto) (0.1-1.2) X10*3/uL Eos # (Auto) (0.0-0.4) X10*3/uL Baso # (Auto) (0.0-0.2) X10*3/uL Abs Immat Gran (auto) (0.00-0.03) X10*3/uL Absolute Neuts (auto) (2.0-8.3) x10*3/uL Absolute Nucleated RBC (0.0-0.012) X10*3/uL Nucleated RBC % (auto) (0.0-0.2) /100WBC PT 11.2 (10.0-13.1) SEC INR 1.0 (0.9-1.1) Sodium 142 (135-145) mmol/L Potassium 4.6 D (3.3-5.1) mmol/L Chloride 105 (96-108) mmol/L Carbon Dioxide 28 (22-29) mmol/L Anion Gap 14 (12-20) BUN 13 D (9-16) mg/dL Creatinine 0.76 (0.5-1.4) mg/dL Estim Creat Clear Calc 71.7 Estimated GFR > 60 Random Glucose 104 (60-115) mg/dL Calcium 10.5 H (8.4-10.2) mg/dL Total Bilirubin 0.6 (0.0-1.0) mg/dL AST 22 (5-31) U/L ALT 15 (0-31) U/L Alkaline Phosphatase 67 (39-117) U/L Troponin I High Sens (<3.5-17.0) ng/L B-Natriuretic Peptide (<100) pg/mL Total Protein 7.2 (6.5-8.0) g/dL Albumin 4.4 (3.5-5.0) g/dL Influenza Type A (PCR) NEGATIVE (Negative) Influenza Type B (PCR) NEGATIVE (Negative) RSV RNA Qual (PCR) NEGATIVE (Negative) SARS-CoV-2 RNA (RT-PCR) NEGATIVE (Negative) 03/07/22 03/07/22 03/07/22 Range/Units 17:06 17:21 17:21 WBC 12.3 H (4.8-10.8) X10*3/uL RBC 5.11 (4.20-5.50) X10*6/uL Hgb 15.0 (12.0-16.0) g/dl Hct 45.9 (37.0-47.0) % MCV 89.8 (80.0-98.0) fL MCH 29.4 (27.0-33.0) pg MCHC 32.7 (31.0-35.0) g/dl RDW 13.0 (11.0-16.0) % Plt Count 306 (160-400) X10*3/uL MPV 9.4 (9.4-12.3) fL Immature Gran % (Auto) 0.3 (0.0-0.4) % Neut % (Auto) 84.2 H (45-73) % Lymph % (Auto) 7.6 L (20-40) % Holt % (Auto) 4.7 (2-11) % Eos % (Auto) 2.7 (0-4) % Baso % (Auto) 0.5 (0-2) % Lymph # (Auto) 0.9 L (1.2-4.9) X10*3/uL Holt # (Auto) 0.6 (0.1-1.2) X10*3/uL Eos # (Auto) 0.3 (0.0-0.4) X10*3/uL Baso # (Auto) 0.1 (0.0-0.2) X10*3/uL Abs Immat Gran (auto) 0.04 H (0.00-0.03) X10*3/uL Absolute Neuts (auto) 10.3 H (2.0-8.3) x10*3/uL Absolute Nucleated RBC 0.000 (0.0-0.012) X10*3/uL Nucleated RBC % (auto) 0.0 (0.0-0.2) /100WBC PT (10.0-13.1) SEC INR (0.9-1.1) Sodium (135-145) mmol/L Potassium (3.3-5.1) mmol/L Chloride (96-108) mmol/L Carbon Dioxide (22-29) mmol/L Anion Gap (12-20) BUN (9-16) mg/dL Creatinine (0.5-1.4) mg/dL Estim Creat Clear Calc Estimated GFR Random Glucose (60-115) mg/dL Calcium (8.4-10.2) mg/dL Total Bilirubin (0.0-1.0) mg/dL AST (5-31) U/L ALT (0-31) U/L Alkaline Phosphatase (39-117) U/L Troponin I High Sens 14.3 (<3.5-17.0) ng/L B-Natriuretic Peptide 352 H (<100) pg/mL Total Protein (6.5-8.0) g/dL Albumin (3.5-5.0) g/dL Influenza Type A (PCR) (Negative) Influenza Type B (PCR) (Negative) RSV RNA Qual (PCR) (Negative) SARS-CoV-2 RNA (RT-PCR) (Negative) Independent Interpretation I performed an independent interpretation of an: EKG Interpretation: Ventricularly paced rhythm with occasional PVCs no acute ST change and no acute ischemia Discharge Plan Discharge Clinical Impression: COPD exacerbation Patient Disposition: Home, Self-Care Instructions: COPD (Chronic Obstructive Pulmonary Disease) (ED) Additional Instructions: Continue nebulizing treatment every 4-6 hours as needed Prednisone as prescribed Cough drops as prescribed Do not smoke follow-up with PCP Prescriptions: New benzonatate 200 mg capsule 200 mg PO TID PRN (Reason: cough) Qty: 30 0RF prednisone 20 mg tablet 40 mg PO DAILY Qty: 10 0RF No Action prednisone 5 mg tablet 5 mg PO DAILY Qty: 30 3RF Taper: 40 mg daily for 3 Days and 0 Hour 30 mg daily for 3 Days and 0 Hour 20 mg daily for 3 Days and 0 Hour 10 mg daily for 3 Days and 0 Hour oxybutynin chloride 10 mg tablet extended release 24hr 10 mg PO DAILY 30 Days Qty: 30 0RF acetaminophen 650 mg tablet extended release 650 mg PO Q8H PRN (Reason: pain) Qty: 90 3RF calcium carbonate-vitamin D3 600 mg(1,500mg) -400 unit tablet 1 tab PO DAILY dextromethorphan-guaifenesin 10-100 mg/5 mL Syrup 10 ml PO TID PRN (Reason: cough) Qty: 237 0RF ipratropium-albuterol 0.5 mg-3 mg(2.5 mg base)/3 mL solution for nebulization 3 ml inhalation QID 30 Days Qty: 180 3RF gabapentin 100 mg capsule 100 mg PO TID sertraline 50 mg tablet 50 mg PO DAILY bisacodyl 5 mg tablet,delayed release (DR/EC) 10 mg PO BEDTIME hydrochlorothiazide 12.5 mg tablet 12.5 mg PO DAILY furosemide 20 mg tablet 10 mg PO DAILY montelukast 10 mg tablet 10 mg PO BEDTIME albuterol sulfate 90 mcg/actuation HFA aerosol inhaler 2 puff inhalation Q6H PRN (Reason: Wheezing) Spiriva with HandiHaler 18 mcg capsule, w/inhalation device 1 cap inhalation DAILY Rx Instructions: puncture 1 cap using device; one dose = 2 inhalations clopidogrel 75 mg tablet 75 mg PO DAILY melatonin 5 mg tablet 5 mg PO BEDTIME amitriptyline 25 mg tablet 25 mg PO BEDTIME folic acid 1 mg tablet 1 mg PO QAM cyanocobalamin (vitamin B-12) 1,000 mcg tablet 1,000 mcg PO QAM fluticasone propion-salmeterol [Advair Diskus] 500-50 mcg/dose blister with device 1 inh inhalation BID 30 Days Qty: 60 5RF
--- NOTE | 2022-03-07 16:35 | ECG_ITS ---
Test Reason : SOB Blood Pressure : / mmHG Vent. Rate : 067 BPM Atrial Rate : 076 BPM P-R Int : 000 ms QRS Dur : 152 ms QT Int : 478 ms P-R-T Axes : 000 -76 091 degrees QTc Int : 505 ms Ventricular-paced rhythm with occasional Premature ventricular complexes Abnormal ECG When compared with ECG of 07-NOV-2021 05:50, Sinus rhythm is no longer with complete heart block Vent. rate has decreased BY 8 BPM Referred By: Hiram Nguyen Electronically Signed By:Tony Borrero
[2022-03-07 17:17] LABS: Prothrombin Time 11.2 SEC (10.0-13.1)
[2022-03-07] MEDS: Magnesium Sulfate/H2O 2 GM/50 ML PIGGYBACK IV (17:19)
[2022-03-07] MEDS: methylPREDNISolone Sod Succ 125 MG/2 ML VIAL IVPUSH (17:19)
[2022-03-07 17:24] LABS: MANUAL DIFF FLAG NO
[2022-03-07 17:26] LABS: Basophils Absolute Auto 0.1 X10*3/uL (0.0-0.2); Basophils Percent Auto 0.5 % (0-2); Eosinophils Absolute Auto 0.3 X10*3/uL (0.0-0.4); Eosinophils Percent Auto 2.7 % (0-4); Hematocrit 45.9 % (37.0-47.0); Imm Gran Abs Auto 0.04 X10*3/uL (0.00-0.03); Imm Gran Pct Auto 0.3 % (0.0-0.4); Lymphocytes Absolute Auto 0.9 X10*3/uL (1.2-4.9); Lymphocytes Percent Auto 7.6 % (20-40); Mean Corpuscular HGB Conc 32.7 g/dl (31.0-35.0); Mean Corpuscular Hemoglobin 29.4 pg (27.0-33.0); Mean Corpuscular Volume 89.8 fL (80.0-98.0); Mean Platelet Volume 9.4 fL (9.4-12.3); Monocytes Absolute Auto 0.6 X10*3/uL (0.1-1.2); Monocytes Percent Auto 4.7 % (2-11); Neutrophils Absolute Auto 10.3 x10*3/uL (2.0-8.3); Neutrophils Percent Auto 84.2 % (45-73); Platelet Count 306 X10*3/uL (160-400); Red Blood Count 5.11 X10*6/uL (4.20-5.50); White Blood Count 12.3 X10*3/uL (4.8-10.8)
[2022-03-07 17:37] LABS: Alanine Aminotransferase 15 U/L (0-31); Albumin Level 4.4 g/dL (3.5-5.0); Alkaline Phosphatase 67 U/L (39-117); Anion Gap 14 (12-20); Aspartate Amino Transferase 22 U/L (5-31); Bilirubin Total 0.6 mg/dL (0.0-1.0); Blood Urea Nitrogen 13 mg/dL (9-16); Calcium 10.5 mg/dL (8.4-10.2); Carbon Dioxide 28 mmol/L (22-29); Chloride 105 mmol/L (96-108); Creatinine Clr Calc Pharmacy 71.7; Estimated Glomerular Filt Rate > 60; Glucose Random 104 mg/dL (60-115); Potassium 4.6 mmol/L (3.3-5.1); Sodium 142 mmol/L (135-145); Total Protein 7.2 g/dL (6.5-8.0)
[2022-03-07 17:43] LABS: B Type Natriuretic Peptide 352 pg/mL (<100)
[2022-03-07 17:51] LABS: Troponin-I High Sensitivity 14.3 ng/L (<3.5-17.0)
[2022-03-07 17:52] LABS: Influenza A PCR NEGATIVE (Negative); Influenza B PCR NEGATIVE (Negative); Resp Syncy Virus RNA Qual PCR NEGATIVE (Negative); SARS COV2 PCR INHOUSE NEGATIVE (Negative)
[2022-03-07] MEDS: Albuterol Sulfate 2.5 MG, Albuterol Sulfate (0.083%) 2.5 MG 5 MG INHALE ×2 (18:00→18:52)
--- NOTE | 2022-03-07 19:46 | PC.NURSE ---
Assumed care of pt. at 1900. Pt. resting in bed at this time with spouse at bedside. Pt. was provided with gingerale and a sandwich. Current breathing treatment in process. No distress noted.
[2022-03-07] MEDS: guaiFEN/Codeine SF 200/20/10ML 10 ML LIQUID PO (21:01)
[2022-03-07] MEDS: Furosemide 20 MG/2 ML VIAL IVPUSH (21:09)
== END 2022-03-07 23:25 | disposition home or self-care (01) ==
PROVIDERS: Emergency Provider Internal Medicine; PCP Internal Medicine
DX: J44.1 Chronic obstructive pulmonary disease with (acute) exacerbation (principal); R06.02 Shortness of breath; Z20.822 Contact with and (suspected) exposure to COVID-19; Z20.828 Contact with and (suspected) exposure to other viral communicable diseases; I10 Essential (primary) hypertension; E11.9 Type 2 diabetes mellitus without complications; E78.5 Hyperlipidemia, unspecified; F17.210 Nicotine dependence, cigarettes, uncomplicated; Z95.0 Presence of cardiac pacemaker; Z79.899 Other long term (current) drug therapy
CPT/HCPCS: 0241U; 71045; 80053; 83880; 84484; 85025; 85610; 93005; 94640; 96365; 96375; 99284; J1940; J2930; J3475

== ENCOUNTER → 2022-04-20 14:16 | Outpatient (BNVA) | payer MEDICAID, SELFPAY | PROVIDERS: PCP Internal Medicine; Visit Provider Internal Medicine | DX: J44.1 Chronic obstructive pulmonary disease with (acute) exacerbation (principal); J30.9 Allergic rhinitis, unspecified; J68.3 Other acute and subacute respiratory conditions due to chemicals, gases, fumes and vapors; Z79.899 Other long term (current) drug therapy | CPT/HCPCS: 99212 ==

== ENCOUNTER 2022-05-01 06:23 | Observation (INO) | payer MEDICAID, SELFPAY ==
[2022-05-01] VITALS (14 sets, daily range): BP systolic 128–165; BP diastolic 60–99; PULSE 40–89; RESP 11–38; TEMP 36.4–36.9; O2SAT 86–100; BMI 30.2
--- NOTE | ~2022-05-01 | XR_ITS ---
EXAMINATION: XR CHEST CLINICAL INFORMATION: Shortness of breath COMPARISON: 03/07/2022. TECHNIQUE: Portable view of the chest was obtained. 0830 hours. Patient rotated to the left. FINDINGS: Pacer wire in position. Status post median sternotomy. No new dominant consolidation seen. Pulmonary vascularity appears to be stable. Pleural surfaces appear to be clear. Incidental note of a calcification adjacent to the lateral aspect of the right humeral head suggestive of calcific tendinitis. XR/XR chest 1V IMPRESSION: No evidence for acute process. No significant changes since previous evaluation.
--- NOTE | 2022-05-01 06:28 | ECG_ITS ---
Test Reason : SOB Blood Pressure : / mmHG Vent. Rate : 067 BPM Atrial Rate : 300 BPM P-R Int : 000 ms QRS Dur : 158 ms QT Int : 478 ms P-R-T Axes : 000 -78 083 degrees QTc Int : 505 ms Ventricular-paced rhythm with occasional Premature ventricular complexes Abnormal ECG When compared with ECG of 07-MAR-2022 17:11, No significant change was found Referred By: Generic ED Physician Electronically Signed By:RANDI EMERSON
--- NOTE | 2022-05-01 06:49 | ED.SOB ---
HPI - SOB/Dyspnea General Chief Complaint: Dyspnea Stated Complaint: sob Time Seen by Provider: 05/01/22 06:49 Source: patient, EMS and cnc supervisor Mode of arrival: ambulatory Limitations: no limitations History of Present Illness HPI Narrative: 61-year-old female with history of COPD/asthma, actively smoker, HTN, pacemaker, brought in by EMS for increased shortness of breath with wheezing since this 3 days ago patient used her nebulizer with no relief found to be satting 90% on room air no fever, no chills. Productive cough with white sputum. Patient had a multiple presentations similar to her current symptoms. Related Data Home Medications Medication Instructions Recorded Confirmed albuterol sulfate 90 mcg/actuation 2 puff inhalation Q6H PRN Wheezing 12/23/19 02/07/22 aerosol inhaler bisacodyl 5 mg tablet,delayed 10 mg PO BEDTIME 12/23/19 02/07/22 release clopidogrel 75 mg tablet 75 mg PO DAILY 12/23/19 02/07/22 furosemide 20 mg tablet 10 mg PO DAILY 12/23/19 02/07/22 gabapentin 100 mg capsule 100 mg PO TID 12/23/19 02/07/22 hydrochlorothiazide 12.5 mg tablet 12.5 mg PO DAILY 12/23/19 02/07/22 montelukast 10 mg tablet 10 mg PO BEDTIME 12/23/19 02/07/22 sertraline 50 mg tablet 50 mg PO DAILY 12/23/19 02/07/22 tiotropium bromide 18 mcg capsule 1 cap inhalation DAILY 12/23/19 02/07/22 with inhalation device (Spiriva with HandiHaler) calcium carbonate 600 mg-vitamin 1 tab PO DAILY 11/22/20 02/07/22 D3 10 mcg (400 unit) tablet amitriptyline 25 mg tablet 25 mg PO BEDTIME 08/04/21 02/07/22 melatonin 5 mg tablet 5 mg PO BEDTIME 08/04/21 02/07/22 cyanocobalamin (vitamin B-12) 1,000 mcg PO QAM 10/24/21 02/07/22 1,000 mcg tablet folic acid 1 mg tablet 1 mg PO QAM 10/24/21 12/01/21 Previous Rx's Medication Instructions Recorded dextromethorphan-guaifenesin 10 10 ml PO TID PRN cough #237 mL 11/08/21 mg-100 mg/5 mL oral syrup ipratropium 0.5 mg-albuterol 3 mg 3 ml inhalation QID Excerbation of 11/08/21 (2.5 mg base)/3 mL nebulization copd 30 days #180 mL soln prednisone 5 mg tablet 5 mg PO DAILY #30 tabs 11/14/21 oxybutynin chloride 10 mg 10 mg PO DAILY OAB 30 days #30 tabs 01/09/22 tablet,extended release 24 hr acetaminophen 650 mg 650 mg PO Q8H PRN pain #90 tabs 01/14/22 tablet,extended release benzonatate 200 mg capsule 200 mg PO TID PRN cough #30 caps 03/07/22 prednisone 20 mg tablet 40 mg PO DAILY #10 tabs 03/07/22 fluticasone 500 mcg-salmeterol 50 1 inh inhalation BID ASTHMA/COPD 04/07/22 mcg/dose blistr powdr for 30 days #60 ea inhalation (Advair Diskus) guaifenesin 1,200 mg tablet, 1,200 mg PO BID COPD/BRONCHITIS 2 04/20/22 extended release 12 hr (Mucinex) weeks #28 tabs Allergies Allergy/AdvReac Type Severity Reaction Status Date / Time latex [LATEX] Allergy Severe DIFFICULTY Verified 04/20/22 14:35 BREATHING aspirin [Aspirin] Allergy Intermediate ITCHING, Verified 04/20/22 14:35 itchiness ciprofloxacin [From CIPRO] Allergy Intermediate DIAPHORESIS Verified 04/20/22 14:35 /PURITIS Penicillins [PENICILLINS] Allergy Unknown UNKNOWN Verified 04/20/22 14:35 HEMALATHA Inhibitors AdvReac Intermediate COUGH Verified 04/20/22 14:35 [HEMALATHA INHIBITORS] Review of Systems Review of Systems: All other systems are reviewed and are negative Constitutional: Reports as per HPI and Reports no additional constitutional complaints Eyes: Reports as per HPI and Reports no additional eye complaints Reports system reviewed and no additional complaints, except as documented Cardiovascular: Reports as per HPI and Reports no additional cardiovascular complaints Respiratory: Reports as per HPI and Reports no additional respiratory complaints Gastrointestinal: Reports as per HPI and Reports no additional gastrointestinal complaints Genitourinary: Reports no additional female genitourinary complaints Musculoskeletal: Reports no additional musculoskeletal complaints Skin/Breast: Reports system reviewed and no additional complaints, except as docu Psychiatric: Reports no additional psychiatric complaints Endocrine: Reports no additional endocrine complaints Hematologic/Lymphatic: Reports no additional hematologic/lymphatic complaints Allergic/Immunologic: Reports no additional allergic/immunologic complaints Reports system reviewed and no additional complaints, except as documented and Reports Abnormal speech present [facility] Past Medical History Medical History Allergic rhinitis Aortic valve endocarditis Asthma Bronchitis COPD (chronic obstructive pulmonary disease) COPD (chronic obstructive pulmonary disease) COPD exacerbation Family history of GERD Fibromyalgia GERD (gastroesophageal reflux disease) History of arthritis History of depression History of enuresis History of urinary incontinence Hx of allergic rhinitis Hx of cardiac pacemaker Hx of coronary artery disease Hx of diabetes mellitus Hx of drug abuse Hx of essential hypertension Hx of hyperlipidemia Hx of migraines Hx of osteoarthritis Hx of pilonidal cyst MARY (obstructive sleep apnea) Overactive bladder Reactive airways dysfunction syndrome Rheumatoid arthritis Surgical History History of cystoscopy History of epidermal inclusion cyst excision History of hysterectomy History of surgical removal of pilonidal cyst Hx laparoscopic cholecystectomy Hx of aortic valve replacement Hx of bilateral cataract extraction Hx of colonoscopy Social History Social History Household Members: Children Housing: Apartment Alcohol intake: never Patient Tobacco Use Status: Current everyday Tobacco user Cigarettes Per Day: 3 Smoked in Last 30 Days: Yes Use of substances other than those prescribed or required for medical reasons: No Advance Directives: Yes Advance Directives on File: Yes Advance Directives Date on File: 11/08/21 Patient : No service: No Current occupational status: unemployed and disabled Physical Exam Vital Signs: Vital Signs: Last Vital Signs Temp 97.8 F 05/01/22 09:23 Pulse 62 05/01/22 09:23 Resp 36 H 05/01/22 09:23 BP 159/70 H 05/01/22 09:23 Pulse Ox 95 05/01/22 09:23 O2 Del Method Nasal Cannula 05/01/22 09:23 O2 Flow Rate 1 05/01/22 09:23 Oxygen Flow Rate 1 05/01/22 06:46 BMI result Body Mass Index 30.2 Vital signs have been reviewed as appeared to be correct. Blood pressure normal. Heart rate normal. Respiration rate normal. Temperature normal. Oxygen saturation normal. Appearance: Alert. Oriented X3. Moderate acute respiratory distress. Head: Normal external exam. Normocephalic. Atraumatic. No Ellis signs noted. No raccoon eyes noted Eyes: PERRLA. EOMI. Conjunctiva and sclera normal. Eyelids normal. ENT: TM's Normal. Pharynx normal. Uvula midline. Moist mucous membranes. No trismus noted. No drooling noted. No muffled voice noted. Neck: Normal inspection. Neck supple. FROM. No adenopathy. Thyroid Normal. No meningeal signs. No neck mass noted. CVS: Normal heart rate and rhythm. Heart sound normal. No murmurs noted. Pulses normal throughout. Respiratory: Moderate respiratory distress, diffuse mild expiratory wheezing with prolonged expiration, intercostal retraction. Abdomen: Soft and nontender. Bowel sounds normal in all 4 quadrants. No distention noted. No organomegaly noted. No visible injury noted. Back: No CVA tenderness. Full range of motion noted. Skin: Skin warm and dry. Normal skin color. Normal skin turgor. No rashes/lesions/lacerations noted. Extremities: No lower extremity edema. Extremities exhibit normal range of motion. Extremities nontender. Neuro: Oriented X 3. Cranial nerve exam: II-XII are grossly intact No motor deficit. No sensory deficit. Reflexes normal. Course Course Course Narrative: 61-year-old female history of asthma/COPD with history of smoking presented with acute COPD exacerbation with mild respiratory distress patient initially responded to an hour long bronchodilator with Solu-Medrol and magnesium, patient started to become symptomatic in the emergency department received another hour long of albuterol. We will admit the patient for further respiratory monitoring. Medications Administered Discontinued Medications Generic Name Dose Route Start Last Admin Trade Name Freq PRN Reason Stop Dose Admin Albuterol Sulfate 7.5 mg 05/01/22 06:52 05/01/22 07:35 Albuterol Sulfate (0.083%) 2.5 Mg/3 Ml Vial.Neb INHALE 05/01/22 06:53 7.5 mg ONCE ONE Administration Magnesium Sulfate 2 gm in 50 mls @ 25 mls/hr 05/01/22 06:52 05/01/22 09:37 Magnesium Sulfate/H2o IV 05/01/22 08:51 Infused ONCE ONE Infusion Doxycycline Hyclate 100 mg/ 250 mls @ 166.67 mls/hr 05/01/22 06:52 05/01/22 08:57 Sodium Chloride IV 05/01/22 08:21 Infused ONCE ONE Infusion Methylprednisolone Sodium Succinate 125 mg 05/01/22 06:52 05/01/22 07:16 Methylprednisolone Sod Succ 125 Mg/2 Ml Vial IVPUSH 05/01/22 06:53 125 mg ONCE ONE Administration Medical Decision Making Differential Diagnosis Differential Diagnoses: The differential diagnosis associated with the presentation includes (COPD exacerbation, pneumonia, infection.) Admission/Observation Consideration of admission/observation: Escalation of care including admission/observation considered Consult Healthcare Provider Management of the patient was discussed with: Hospitalist Lab Data MDM Lab Attestation statement: I reviewed the patient's lab results. 05/01/22 07:21 05/01/22 07:21 Labs: Lab Results 05/01/22 05/01/22 05/01/22 Range/Units 07:21 07:21 07:21 WBC 11.3 H (4.8-10.8) X10*3/uL RBC 4.65 (4.20-5.50) X10*6/uL Hgb 13.7 (12.0-16.0) g/dl Hct 41.7 (37.0-47.0) % MCV 89.7 (80.0-98.0) fL MCH 29.5 (27.0-33.0) pg MCHC 32.9 (31.0-35.0) g/dl RDW 12.6 (11.0-16.0) % Plt Count 420 H D (160-400) X10*3/uL MPV 10.1 (9.4-12.3) fL Immature Gran % (Auto) 0.4 (0.0-0.4) % Neut % (Auto) 64.6 (45-73) % Lymph % (Auto) 17.8 L (20-40) % [place] % (Auto) 7.9 (2-11) % Eos % (Auto) 8.8 H (0-4) % Baso % (Auto) 0.5 (0-2) % Lymph # (Auto) 2.0 (1.2-4.9) X10*3/uL [place] # (Auto) 0.9 (0.1-1.2) X10*3/uL Eos # (Auto) 1.0 H (0.0-0.4) X10*3/uL Baso # (Auto) 0.1 (0.0-0.2) X10*3/uL Abs Immat Gran (auto) 0.05 H (0.00-0.03) X10*3/uL Absolute Neuts (auto) 7.3 (2.0-8.3) x10*3/uL Absolute Nucleated RBC 0.000 (0.0-0.012) X10*3/uL Nucleated RBC % (auto) 0.0 (0.0-0.2) /100WBC Sodium 140 (135-145) mmol/L Potassium 4.3 (3.3-5.1) mmol/L Chloride 104 (96-108) mmol/L Carbon Dioxide 24 (22-29) mmol/L Anion Gap 16 (12-20) BUN 26 H (9-16) mg/dL Creatinine 0.74 (0.5-1.4) mg/dL Estim Creat Clear Calc 68.6 Estimated GFR > 60 Random Glucose 113 (60-115) mg/dL Lactic Acid (0.5-2.0) mmol/L Calcium 9.5 D (8.4-10.2) mg/dL Total Bilirubin 0.3 (0.0-1.0) mg/dL Direct Bilirubin < 0.2 (0.0-0.5) mg/dL AST 25 (5-31) U/L ALT 18 (0-31) U/L Alkaline Phosphatase 69 (39-117) U/L Troponin I High Sens 16.6 (<3.5-17.0) ng/L B-Natriuretic Peptide (<100) pg/mL Total Protein 6.6 (6.5-8.0) g/dL Albumin 3.7 (3.5-5.0) g/dL Lipase 15 (8-78) U/L Urine Color Urine Appearance Urine pH (5.0-9.0) Ur Specific [place] (1.005-1.025) Urine Protein (Neg-Trace) mg/dL Urine Glucose (UA) (Negative) mg/dL Urine Ketones (Negative) mg/dL Urine Blood (Negative) Urine Nitrite (Negative) Ur Leukocyte Esterase (Negative) Urine RBC (0-2) /HPF Urine WBC (0-5) /HPF Ur Squamous Epith Cells (0-2) /HPF Urine Bacteria (None Seen) Hyaline Casts (0-2) /LPF COVID-19 ([facility]) (Negative) COVID-19 Clin Com 05/01/22 05/01/22 05/01/22 Range/Units 07:21 07:21 08:06 WBC (4.8-10.8) X10*3/uL RBC (4.20-5.50) X10*6/uL Hgb (12.0-16.0) g/dl Hct (37.0-47.0) % MCV (80.0-98.0) fL MCH (27.0-33.0) pg MCHC (31.0-35.0) g/dl RDW (11.0-16.0) % Plt Count (160-400) X10*3/uL MPV (9.4-12.3) fL Immature Gran % (Auto) (0.0-0.4) % Neut % (Auto) (45-73) % Lymph % (Auto) (20-40) % [place] % (Auto) (2-11) % Eos % (Auto) (0-4) % Baso % (Auto) (0-2) % Lymph # (Auto) (1.2-4.9) X10*3/uL [place] # (Auto) (0.1-1.2) X10*3/uL Eos # (Auto) (0.0-0.4) X10*3/uL Baso # (Auto) (0.0-0.2) X10*3/uL Abs Immat Gran (auto) (0.00-0.03) X10*3/uL Absolute Neuts (auto) (2.0-8.3) x10*3/uL Absolute Nucleated RBC (0.0-0.012) X10*3/uL Nucleated RBC % (auto) (0.0-0.2) /100WBC Sodium (135-145) mmol/L Potassium (3.3-5.1) mmol/L Chloride (96-108) mmol/L Carbon Dioxide (22-29) mmol/L Anion Gap (12-20) BUN (9-16) mg/dL Creatinine (0.5-1.4) mg/dL Estim Creat Clear Calc Estimated GFR Random Glucose (60-115) mg/dL Lactic Acid (0.5-2.0) mmol/L Calcium (8.4-10.2) mg/dL Total Bilirubin (0.0-1.0) mg/dL Direct Bilirubin (0.0-0.5) mg/dL AST (5-31) U/L ALT (0-31) U/L Alkaline Phosphatase (39-117) U/L Troponin I High Sens (<3.5-17.0) ng/L B-Natriuretic Peptide 161 H (<100) pg/mL Total Protein (6.5-8.0) g/dL Albumin (3.5-5.0) g/dL Lipase (8-78) U/L Urine Color Yellow Urine Appearance Cloudy Urine pH 6.0 (5.0-9.0) Ur Specific [place] 1.015 (1.005-1.025) Urine Protein Negative (Neg-Trace) mg/dL Urine Glucose (UA) Negative (Negative) mg/dL Urine Ketones Negative (Negative) mg/dL Urine Blood Trace H (Negative) Urine Nitrite Negative (Negative) Ur Leukocyte Esterase Large (3+) H (Negative) Urine RBC 0-2 (0-2) /HPF Urine WBC >50 H (0-5) /HPF Ur Squamous Epith Cells 6-10 (0-2) /HPF Urine Bacteria None Seen (None Seen) Hyaline Casts 0-2 (0-2) /LPF COVID-19 ([facility]) Negative (Negative) COVID-19 Clin Com See Note 05/01/22 Range/Units 09:37 WBC (4.8-10.8) X10*3/uL RBC (4.20-5.50) X10*6/uL Hgb (12.0-16.0) g/dl Hct (37.0-47.0) % MCV (80.0-98.0) fL MCH (27.0-33.0) pg MCHC (31.0-35.0) g/dl RDW (11.0-16.0) % Plt Count (160-400) X10*3/uL MPV (9.4-12.3) fL Immature Gran % (Auto) (0.0-0.4) % Neut % (Auto) (45-73) % Lymph % (Auto) (20-40) % [place] % (Auto) (2-11) % Eos % (Auto) (0-4) % Baso % (Auto) (0-2) % Lymph # (Auto) (1.2-4.9) X10*3/uL [place] # (Auto) (0.1-1.2) X10*3/uL Eos # (Auto) (0.0-0.4) X10*3/uL Baso # (Auto) (0.0-0.2) X10*3/uL Abs Immat Gran (auto) (0.00-0.03) X10*3/uL Absolute Neuts (auto) (2.0-8.3) x10*3/uL Absolute Nucleated RBC (0.0-0.012) X10*3/uL Nucleated RBC % (auto) (0.0-0.2) /100WBC Sodium (135-145) mmol/L Potassium (3.3-5.1) mmol/L Chloride (96-108) mmol/L Carbon Dioxide (22-29) mmol/L Anion Gap (12-20) BUN (9-16) mg/dL Creatinine (0.5-1.4) mg/dL Estim Creat Clear Calc Estimated GFR Random Glucose (60-115) mg/dL Lactic Acid 0.9 (0.5-2.0) mmol/L Calcium (8.4-10.2) mg/dL Total Bilirubin (0.0-1.0) mg/dL Direct Bilirubin (0.0-0.5) mg/dL AST (5-31) U/L ALT (0-31) U/L Alkaline Phosphatase (39-117) U/L Troponin I High Sens (<3.5-17.0) ng/L B-Natriuretic Peptide (<100) pg/mL Total Protein (6.5-8.0) g/dL Albumin (3.5-5.0) g/dL Lipase (8-78) U/L Urine Color Urine Appearance Urine pH (5.0-9.0) Ur Specific [place] (1.005-1.025) Urine Protein (Neg-Trace) mg/dL Urine Glucose (UA) (Negative) mg/dL Urine Ketones (Negative) mg/dL Urine Blood (Negative) Urine Nitrite (Negative) Ur Leukocyte Esterase (Negative) Urine RBC (0-2) /HPF Urine WBC (0-5) /HPF Ur Squamous Epith Cells (0-2) /HPF Urine Bacteria (None Seen) Hyaline Casts (0-2) /LPF COVID-19 ([facility]) (Negative) COVID-19 Clin Com Independent Interpretation I performed an independent interpretation of an: EKG (Ventricular paced rhythm at 67 beats per minute with occasional PVCs, no significant change from previous EKG.) and Plain X-Ray (No acute intrathoracic pathology.) Radiology Impression Discussion of test interpretation with radiology: I have reviewed the radiologist's reading. Chronic Conditions Patient?s care impacted by: Other (Smoking, COPD.) Discharge Plan Discharge Clinical Impression: COPD exacerbation Patient Disposition: Admitted As Inpatient Prescriptions: No Action prednisone 5 mg tablet 5 mg PO DAILY Qty: 30 3RF Taper: 40 mg daily for 3 Days and 0 Hour 30 mg daily for 3 Days and 0 Hour 20 mg daily for 3 Days and 0 Hour 10 mg daily for 3 Days and 0 Hour oxybutynin chloride 10 mg tablet extended release 24hr 10 mg PO DAILY 30 Days Qty: 30 0RF acetaminophen 650 mg tablet extended release 650 mg PO Q8H PRN (Reason: pain) Qty: 90 3RF fluticasone propion-salmeterol [Advair Diskus] 500-50 mcg/dose blister with device 1 inh inhalation BID 30 Days Qty: 60 1RF benzonatate 200 mg capsule 200 mg PO TID PRN (Reason: cough) Qty: 30 0RF prednisone 20 mg tablet 40 mg PO DAILY Qty: 10 0RF calcium carbonate-vitamin D3 600 mg(1,500mg) -400 unit tablet 1 tab PO DAILY dextromethorphan-guaifenesin 10-100 mg/5 mL Syrup 10 ml PO TID PRN (Reason: cough) Qty: 237 0RF ipratropium-albuterol 0.5 mg-3 mg(2.5 mg base)/3 mL solution for nebulization 3 ml inhalation QID 30 Days Qty: 180 3RF gabapentin 100 mg capsule 100 mg PO TID sertraline 50 mg tablet 50 mg PO DAILY bisacodyl 5 mg tablet,delayed release (DR/EC) 10 mg PO BEDTIME hydrochlorothiazide 12.5 mg tablet 12.5 mg PO DAILY furosemide 20 mg tablet 10 mg PO DAILY montelukast 10 mg tablet 10 mg PO BEDTIME albuterol sulfate 90 mcg/actuation HFA aerosol inhaler 2 puff inhalation Q6H PRN (Reason: Wheezing) Spiriva with HandiHaler 18 mcg capsule, w/inhalation device 1 cap inhalation DAILY Rx Instructions: puncture 1 cap using device; one dose = 2 inhalations clopidogrel 75 mg tablet 75 mg PO DAILY melatonin 5 mg tablet 5 mg PO BEDTIME amitriptyline 25 mg tablet 25 mg PO BEDTIME Mucinex 1,200 mg tablet extended release 12hr 1,200 mg PO BID 14 Days Qty: 28 2RF folic acid 1 mg tablet 1 mg PO QAM cyanocobalamin (vitamin B-12) 1,000 mcg tablet 1,000 mcg PO QAM
[2022-05-01] MEDS: Doxycycline Hyclate 100 MG in 0.9 % Sodium Chloride 250 ML 166.67 MG IV ×2 (07:16→18:47)
[2022-05-01] MEDS: methylPREDNISolone Sod Succ 125 MG/2 ML VIAL IVPUSH (07:16)
[2022-05-01] MEDS: Magnesium Sulfate/H2O 2 GM/50 ML PIGGYBACK IV (07:26)
[2022-05-01] MEDS: Albuterol Sulfate (0.083%) 2.5 MG/3 ML VIAL.NEB 7.5 MG INHALE ×2 (07:35→11:05)
[2022-05-01 07:46] LABS: MANUAL DIFF FLAG NO
[2022-05-01 07:58] LABS: Basophils Absolute Auto 0.1 X10*3/uL (0.0-0.2); Basophils Percent Auto 0.5 % (0-2); Eosinophils Percent Auto 8.8 % (0-4); Hematocrit 41.7 % (37.0-47.0); Hemoglobin 13.7 g/dl (12.0-16.0); Imm Gran Abs Auto 0.05 X10*3/uL (0.00-0.03); Imm Gran Pct Auto 0.4 % (0.0-0.4); Lymphocytes Percent Auto 17.8 % (20-40); Mean Corpuscular HGB Conc 32.9 g/dl (31.0-35.0); Mean Corpuscular Hemoglobin 29.5 pg (27.0-33.0); Mean Corpuscular Volume 89.7 fL (80.0-98.0); Mean Platelet Volume 10.1 fL (9.4-12.3); Monocytes Absolute Auto 0.9 X10*3/uL (0.1-1.2); Monocytes Percent Auto 7.9 % (2-11); Neutrophils Absolute Auto 7.3 x10*3/uL (2.0-8.3); Neutrophils Percent Auto 64.6 % (45-73); Platelet Count 420 X10*3/uL (160-400); Red Blood Count 4.65 X10*6/uL (4.20-5.50); Red Cell Distribution Width 12.6 % (11.0-16.0); White Blood Count 11.3 X10*3/uL (4.8-10.8)
[2022-05-01 08:01] LABS: COVID-19 Test Negative (Negative); IDNOW Serial# 16C4AD1C
[2022-05-01 08:08] LABS: Alanine Aminotransferase 18 U/L (0-31); Albumin Level 3.7 g/dL (3.5-5.0); Alkaline Phosphatase 69 U/L (39-117); Anion Gap 16 (12-20); Aspartate Amino Transferase 25 U/L (5-31); Bilirubin Direct < 0.2 mg/dL (0.0-0.5); Bilirubin Total 0.3 mg/dL (0.0-1.0); Blood Urea Nitrogen 26 mg/dL (9-16); Calcium 9.5 mg/dL (8.4-10.2); Carbon Dioxide 24 mmol/L (22-29); Chloride 104 mmol/L (96-108); Creatinine Clr Calc Pharmacy 68.6; Estimated Glomerular Filt Rate > 60; Glucose Random 113 mg/dL (60-115); Lipase 15 U/L (8-78); Potassium 4.3 mmol/L (3.3-5.1); Sodium 140 mmol/L (135-145); Total Protein 6.6 g/dL (6.5-8.0)
[2022-05-01 08:09] LABS: B Type Natriuretic Peptide 161 pg/mL (<100)
[2022-05-01 08:10] LABS: Troponin-I High Sensitivity 16.6 ng/L (<3.5-17.0)
[2022-05-01 08:13] LABS: Appearance Urine Cloudy; Color Urine Yellow; Glucose Urine UA Negative (Negative); Leukocyte Esterase Urine Large (3+) (Negative); Nitrite Urine Negative (Negative); Specific Gravity - Urine 1.015 (1.005-1.025); UMIC TRIGGER UACC YES; Urine Blood Trace (Negative); Urine Ketones Negative (Negative); Urine Protein Negative (Neg-Trace)
[2022-05-01 08:15] LABS: Bacteria Urine None Seen (None Seen); Hyaline Casts Urine 0-2 /LPF (0-2); RBC Urine 0-2 /HPF (0-2); UACC Culture Trigger YES; WBC Urine >50 /HPF (0-5)
--- NOTE | 2022-05-01 09:20 | PC.NURSE ---
this nurse obtained report/assumed care of patient at 9am. it was noted that the patient only had 1 set of blood cultures drawn, upon asking previous nurse the patient is a difficult stick and was attempted multiple times, this nurse called phlebotomy to assist in getting second set however it was noted that doxy was started prior to our arrival.
--- NOTE | 2022-05-01 09:28 | PC.NURSE ---
Addendum entered by Cat Lou 05/01/22 10:22: Inspiratory and expiratory wheezes noted throughout. RR 36 Original Note: assumed care of patient at 9:00am. AOx3, RR 36. O2 sat 95% on 1L NC. monitoring tech intact. VS otherwise stable.
[2022-05-01 09:59] LABS: Lactic Acid 0.9 mmol/L (0.5-2.0)
--- NOTE | 2022-05-01 10:33 | PC.NURSE ---
MD aware of patient's lung sounds and RR.
--- NOTE | 2022-05-01 11:45 | PC.NURSE ---
pt albuterol updraft running. Respirations remain elevated 36. VS otherwise stable. ceo and president intact. Pt brother at bedside. Pt reporting 8/10 headache.
--- NOTE | 2022-05-01 12:00 | PC.NURSE ---
Turned off pt O2 per Hospitalist request. Hospitalist stated to patient that she did not need O2 at this time.
[2022-05-01 12:10] LABS: Estimated Average Glucose 117 mg/dL; Hemoglobin A1c % 5.7 %
--- NOTE | 2022-05-01 12:31 | PHA.MEDREC ---
Pharmacy Consult ? Medication Reconciliation Pharmacy has completed the medication reconciliation. Mike Lawler spoke to patient due to low ekg tech availability.
--- NOTE | 2022-05-01 12:45 | PM.IMHP ---
History of Present Illness Date of Service: 05/01/22 Attending physician on admission: Shakir Roland Chief Complaint: sob, wheezing 61-year-old female with history of asthma/COPD overlap, current everyday smoker, GERD, history TAVR procedure following endocarditis on Plavix (hx IVDA), diabetes, hypertension, hyperlipidemia, MARY noncompliant with CPAP, overactive bladder, and rheumatoid arthritis presented to the ED via EMS for evaluation of shortness of breath and wheezing ongoing for about 1 week. She states she has also had an occasionally productive cough for the last 2 weeks. On arrival, tachypneic to 36, oximetry 90%. However did desaturate to 86% and was placed on supplemental O2. Otherwise vital signs normal. Mild leukocytosis 11.3. Renal function normal, electrolyte levels normal. BNP 161. Chest x-ray negative for any acute cardiopulmonary abnormality. UA with 3+ leukocytes, trace blood, negative nitrites, negative bacteria. In the ED, given updraft albuterol and doxycycline along with IV methylprednisolone 125 mg. Review of Systems Review of Systems: Yes all other systems are reviewed and are negative FOR[facility]LY [facility] Medical History Allergic rhinitis Aortic valve endocarditis Asthma Bronchitis COPD (chronic obstructive pulmonary disease) COPD (chronic obstructive pulmonary disease) COPD exacerbation Family history of GERD Fibromyalgia GERD (gastroesophageal reflux disease) History of arthritis History of depression History of enuresis History of urinary incontinence Hx of allergic rhinitis Hx of cardiac pacemaker Hx of coronary artery disease Hx of diabetes mellitus Hx of drug abuse Hx of essential hypertension Hx of hyperlipidemia Hx of migraines Hx of osteoarthritis Hx of pilonidal cyst MARY (obstructive sleep apnea) Overactive bladder Reactive airways dysfunction syndrome Rheumatoid arthritis Surgical History History of cystoscopy History of epidermal inclusion cyst excision History of hysterectomy History of surgical removal of pilonidal cyst Hx laparoscopic cholecystectomy Hx of aortic valve replacement Hx of bilateral cataract extraction Hx of colonoscopy Social History Household Members: Children Housing: Apartment Alcohol intake: never Patient Tobacco Use Status: Current everyday Tobacco user Cigarettes Per Day: 3 Smoked in Last 30 Days: Yes Use of substances other than those prescribed or required for medical reasons: No Advance Directives: Yes Advance Directives on File: Yes Advance Directives Date on File: 11/08/21 Patient : No service: No Current occupational status: unemployed and disabled Meds Allergies Allergy/AdvReac Type Severity Reaction Status Date / Time latex [LATEX] Allergy Severe DIFFICULTY Verified 04/20/22 14:35 BREATHING aspirin [Aspirin] Allergy Intermediate ITCHING, Verified 04/20/22 14:35 itchiness ciprofloxacin [From CIPRO] Allergy Intermediate DIAPHORESIS Verified 04/20/22 14:35 /PURITIS Penicillins [PENICILLINS] Allergy Unknown UNKNOWN Verified 04/20/22 14:35 HEMALATHA Inhibitors AdvReac Intermediate COUGH Verified 04/20/22 14:35 [HEMALATHA INHIBITORS] Active Medications: Current Medications Acetaminophen (Acetaminophen 325 Mg Tablet) 650 mg PO Q6H PRN PRN Reason: Pain, Mild (Pain Scale 1-3) Albuterol Sulfate (Albuterol Sulfate (0.083%) 2.5 Mg/3 Ml Vial.Neb) 7.5 mg INHALE ONCE ONE Stop: 05/01/22 10:35 Last Admin: 05/01/22 11:05 Dose: 7.5 mg Albuterol Sulfate (Albuterol Sulfate (0.083%) 2.5 Mg/3 Ml Vial.Neb) 2.5 mg INHALE Q2H PRN PRN Reason: Shortness of Breath/Wheezing Albuterol Sulfate 2.5 mg/ (Ipratropium [place] 0.5 mg) 0 mg INHALE RQ4H WHILE AWAKE [facility] Docusate Sodium (Docusate Sodium 100 Mg Capsule) 100 mg PO DAILY PRN PRN Reason: Constipation Enoxaparin Sodium (Enoxaparin Sodium 40 Mg/0.4 Ml Syringe) 40 mg SUBCUT Q24H [facility] Methylprednisolone Sodium Succinate (Methylprednisolone Sod Succ 125 Mg/2 Ml Vial) 60 mg IVPUSH Q12H PATTI Ondansetron HCl (Ondansetron Hcl 4 Mg/2 Ml Vial) 4 mg IVPUSH Q8H PRN PRN Reason: Nausea and Vomiting Pharmacy Consult (Consult Rx Perform Med Rec) 1 each MISCELLANE ONCE PRN PRN Reason: Consult order Sodium Chloride (0.9 % Sodium Chloride Flush 3 Ml Syringe) 3 ml IVFLUSH QSHIFT [facility] Home Medications Medication Instructions Recorded Confirmed Last Taken Type albuterol sulfate 90 mcg/actuation 2 puff inhalation Q6H PRN Wheezing 12/23/19 05/01/22 Unknown History aerosol inhaler bisacodyl 5 mg tablet,delayed 10 mg PO BEDTIME 12/23/19 05/01/22 04/30/22 History release clopidogrel 75 mg tablet 75 mg PO DAILY 12/23/19 05/01/22 04/30/22 History gabapentin 100 mg capsule 100 mg PO TID 12/23/19 05/01/22 04/30/22 History hydrochlorothiazide 12.5 mg tablet 12.5 mg PO DAILY 12/23/19 05/01/22 04/30/22 History montelukast 10 mg tablet 10 mg PO BEDTIME 12/23/19 05/01/22 04/30/22 History sertraline 50 mg tablet 50 mg PO DAILY 12/23/19 05/01/22 04/30/22 History tiotropium bromide 18 mcg capsule 1 cap inhalation DAILY 12/23/19 05/01/22 04/30/22 History with inhalation device (Spiriva with HandiHaler) calcium carbonate 600 mg-vitamin 1 tab PO DAILY 11/22/20 05/01/22 04/30/22 History D3 10 mcg (400 unit) tablet amitriptyline 25 mg tablet 25 mg PO BEDTIME 08/04/21 05/01/22 04/30/22 History melatonin 5 mg tablet 5 mg PO BEDTIME 08/04/21 05/01/22 04/30/22 History cyanocobalamin (vitamin B-12) 1,000 mcg PO QAM 10/24/21 05/01/22 04/30/22 History 1,000 mcg tablet folic acid 1 mg tablet 1 mg PO DAILY 10/24/21 05/01/22 04/30/22 History Physical Exam Vital Signs and Narrative: Vital Signs: Last Vital Signs Temp 97.5 F 05/01/22 11:36 Pulse 74 05/01/22 11:36 Resp 36 H 05/01/22 11:36 BP 165/71 H 05/01/22 11:36 Pulse Ox 94 05/01/22 11:36 O2 Del Method 05/01/22 11:36 O2 Flow Rate 1 05/01/22 11:36 Oxygen Flow Rate 1 05/01/22 06:46 BMI result Body Mass Index 30.2 Constitutional - Awake and Alert, No apparent distress Eyes - PERRLA, EOMI Cardiovascular - S1S2, RRR, No edema Respiratory - Normal lung expansion, Normal respiratory effort, No respiratory distress on RA on exam, diffuse expiratory wheezing Gastrointestinal - NT / ND; +BS; No rebound or guarding Extremities - no calf tenderness bilaterally, no swelling Musculoskeletal - Normal inspection, normal ROM Skin - Warm/Dry Neurological - Alert & oriented x3 Psychological - Appropriate affect Results Labs 05/01/22 07:21 05/01/22 07:21 Labs: Laboratory Results - last 24 hr 05/01/22 05/01/22 05/01/22 07:21 07:21 07:21 MCV 89.7 MCH 29.5 MCHC 32.9 RDW 12.6 Plt Count 420 H D MPV 10.1 Immature Gran % (Auto) 0.4 Neut % (Auto) 64.6 Lymph % (Auto) 17.8 L [place] % (Auto) 7.9 Eos % (Auto) 8.8 H Baso % (Auto) 0.5 Lymph # (Auto) 2.0 [place] # (Auto) 0.9 Eos # (Auto) 1.0 H Baso # (Auto) 0.1 Abs Immat Gran (auto) 0.05 H Absolute Neuts (auto) 7.3 Absolute Nucleated RBC 0.000 Nucleated RBC % (auto) 0.0 Anion Gap 16 Estim Creat Clear Calc 68.6 Estimated GFR > 60 Random Glucose 113 Estimat Average Glucose Hemoglobin A1c % Lactic Acid Calcium 9.5 D Total Bilirubin 0.3 Direct Bilirubin < 0.2 AST 25 ALT 18 Alkaline Phosphatase 69 Troponin I High Sens 16.6 B-Natriuretic Peptide Total Protein 6.6 Albumin 3.7 Lipase 15 Urine Color Urine Appearance Urine pH Ur Specific [place] Urine Protein Urine Glucose (UA) Urine Ketones Urine Blood Urine Nitrite Ur Leukocyte Esterase Urine RBC Urine WBC Ur Squamous Epith Cells Urine Bacteria Hyaline Casts COVID-19 ([facility]) COVID-19 Clin Com 05/01/22 05/01/22 05/01/22 07:21 07:21 07:21 MCV MCH MCHC RDW Plt Count MPV Immature Gran % (Auto) Neut % (Auto) Lymph % (Auto) [place] % (Auto) Eos % (Auto) Baso % (Auto) Lymph # (Auto) [place] # (Auto) Eos # (Auto) Baso # (Auto) Abs Immat Gran (auto) Absolute Neuts (auto) Absolute Nucleated RBC Nucleated RBC % (auto) Anion Gap Estim Creat Clear Calc Estimated GFR Random Glucose Estimat Average Glucose 117 Hemoglobin A1c % 5.7 Lactic Acid Calcium Total Bilirubin Direct Bilirubin AST ALT Alkaline Phosphatase Troponin I High Sens B-Natriuretic Peptide 161 H Total Protein Albumin Lipase Urine Color Urine Appearance Urine pH Ur Specific [place] Urine Protein Urine Glucose (UA) Urine Ketones Urine Blood Urine Nitrite Ur Leukocyte Esterase Urine RBC Urine WBC Ur Squamous Epith Cells Urine Bacteria Hyaline Casts COVID-19 ([facility]) Negative COVID-19 Clin Com See Note 05/01/22 05/01/22 08:06 09:37 MCV MCH MCHC RDW Plt Count MPV Immature Gran % (Auto) Neut % (Auto) Lymph % (Auto) [place] % (Auto) Eos % (Auto) Baso % (Auto) Lymph # (Auto) [place] # (Auto) Eos # (Auto) Baso # (Auto) Abs Immat Gran (auto) Absolute Neuts (auto) Absolute Nucleated RBC Nucleated RBC % (auto) Anion Gap Estim Creat Clear Calc Estimated GFR Random Glucose Estimat Average Glucose Hemoglobin A1c % Lactic Acid 0.9 Calcium Total Bilirubin Direct Bilirubin AST ALT Alkaline Phosphatase Troponin I High Sens B-Natriuretic Peptide Total Protein Albumin Lipase Urine Color Yellow Urine Appearance Cloudy Urine pH 6.0 Ur Specific [place] 1.015 Urine Protein Negative Urine Glucose (UA) Negative Urine Ketones Negative Urine Blood Trace H Urine Nitrite Negative Ur Leukocyte Esterase Large (3+) H Urine RBC 0-2 Urine WBC >50 H Ur Squamous Epith Cells 6-10 Urine Bacteria None Seen Hyaline Casts 0-2 COVID-19 ([facility]) COVID-19 Clin Com Imaging Radiologist's Impressions: Impressions Chest X-Ray 05/01/22 08:33 IMPRESSION: No evidence for acute process. No significant changes since previous evaluation. Assessment and Plan (1) COPD exacerbation: Status: Acute Plan 61-year-old female with history of asthma/COPD overlap, current everyday smoker, GERD, history TAVR procedure following endocarditis on Plavix (hx IVDA), pasemaker in place, diabetes, hypertension, hyperlipidemia, MARY noncompliant with CPAP, overactive bladder, and rheumatoid arthritis to be observed for acute asthma/COPD exacerbation. #Acute moderate persistent asthma/COPD exacerbation -Desats to 86% during coughing fit, but maintaining oximetry 93-95% RA -IV methylprednisolone 60 mg b.i.d. -Maceybs q.4h while awake -albuterol q.2h p.r.n. -doxycycline 100 mg b.i.d. given productive cough -symptomatic management -smoking cessation encouraged -continue home inhalers # hypertension-reasonably controlled -continue home antihypertensive agents # controlled type 2 qsvpreup-sjj-vcblbnj-dependent -HGB A1c 5.7% -POC glucose -diabetic diet -sliding-scale insulin # history TAVR procedure -continue Plavix # overactive bladder -scheduled to undergo InterStim generator change today 05/01, will need to reschedule with Dr. Vivas # cigarette smoker -smoking cessation counseling provided -declines NRT Full code DVT prophylaxis-Lovenox Time Spent With Patient Time: Total time managing care of this patient today ____ minutes. Quality Stroke Does the patient have a stroke diagnosis?: No VTE Prior VTE?: No VTE Risk Level:: Medical - moderate - high VTE Device Contraindication: Treatment Not Indicated VTE Drug Contraindication: N/A - Med Ordered
--- NOTE | 2022-05-01 12:46 | PC.NURSE ---
patient rang call basilio speaking in short sentences/tripoding/notable dyspnea, pt stated she couldnt breathe, O2 sat was 86% on room air with rr of 38, pt was placed back on oxygen at 4 L NC within a few minutes the patients o2 sat increased back to 90s and rr decreased to 28. hospitalist toan mcclellan was notified via tiger text, will attempt to titrate the patient down to 2 liters when she catches her breath.
--- NOTE | 2022-05-01 12:57 | PC.NURSE ---
O2 sat 96% on 2LNC. I&E wheezes throughout. night monitor intact - pt VPaced. RR 34
[2022-05-01] MEDS: Folic Acid 1 MG TABLET PO (13:35)
[2022-05-01] MEDS: Cyanocobalamin (Vitamin B-12) 1,000 MCG TABLET 1000 MCG PO (13:36)
[2022-05-01] MEDS: Enoxaparin Sodium 40 MG/0.4 ML SYRINGE SUBCUT (13:36)
[2022-05-01] MEDS: Clopidogrel Bisulfate 75 MG TABLET PO (13:36)
--- NOTE | 2022-05-01 13:40 | PC.NURSE ---
patient medicated per order. Solu-medrol not given awaiting pharmacy communication with provider regarding timing of solumedrol
[2022-05-01] MEDS: Gabapentin 100 MG CAPSULE PO ×2 (14:04→19:58)
[2022-05-01 14:58] LABS: Adenovirus PCR Not Detected (Not Detect.); Bordetella parapertussis PCR Not Detected (Not Detect.); Bordetella pertussis PCR Not Detected (Not Detect.); Chlamydia pneumoniae PCR Not Detected (Not Detect.); Coronavirus 229E PCR Not Detected (Not Detect.); Coronavirus HKU1 PCR Not Detected (Not Detect.); Coronavirus NL63 PCR Not Detected (Not Detect.); Coronavirus OC43 PCR Not Detected (Not Detect.); Human metapneumovirus PCR Not Detected (Not Detect.); Influenza A PCR Not Detected (Not Detect.); Influenza B PCR Not Detected (Not Detect.); Mycoplasma pneumoniae PCR Not Detected (Not Detect.); Parainfluenza 1 PCR Not Detected (Not Detect.); Parainfluenza 2 PCR Not Detected (Not Detect.); Parainfluenza 3 PCR Not Detected (Not Detect.); Parainfluenza 4 PCR Not Detected (Not Detect.); RSV PCR Not Detected (Not Detect.); Rhino/Enterovirus PCR Not Detected (Not Detect.); SARS-CoV-2 PCR Not Detected (Not Detect.)
[2022-05-01] MEDS: 0.9 % Sodium Chloride Flush 3 ML SYRINGE IVFLUSH (15:27)
--- NOTE | 2022-05-01 17:06 | PC.NURSE ---
attempted to call floor to give report was placed on hold- no fish bait picker, will try to call again shortly.
--- NOTE | 2022-05-01 17:12 | PC.NURSE ---
report given to the floor
[2022-05-01 18:35] LABS: Glucose, Whole Blood 202 mg/dL (60-115)
[2022-05-01] MEDS: Insulin Lispro 100 UNIT/ML 3 ML VIAL SUBCUT (18:46)
[2022-05-01] MEDS: Montelukast Sodium 10 MG TABLET PO (19:58)
[2022-05-01] MEDS: bisacodyL 5 MG TABLET.DR 10 MG PO (19:58)
[2022-05-01] MEDS: Amitriptyline HCl 25 MG TABLET PO (19:58)
[2022-05-01] MEDS: Melatonin 3 MG TABLET PO (19:58)
[2022-05-01 21:06] LABS: Glucose, Whole Blood 110 mg/dL (60-115)
[2022-05-02] MEDS: methylPREDNISolone Sod Succ 40 MG/ML VIAL 60 MG IVPUSH ×2 (00:49→12:47)
[2022-05-02] MEDS: 0.9 % Sodium Chloride Flush 3 ML SYRINGE IVFLUSH ×2 (00:49→09:19)
[2022-05-02 03:50] VITALS: BP 125/70; PULSE 60; RESP 18; TEMP 36.2; O2SAT 97
[2022-05-02] MEDS: Doxycycline Hyclate 100 MG in 0.9 % Sodium Chloride 250 ML 166.67 MG IV (06:34)
[2022-05-02 06:55] LABS: Basophils Percent Auto 0.1 % (0-2); Hematocrit 40.4 % (37.0-47.0); Hemoglobin 12.9 g/dl (12.0-16.0); Imm Gran Abs Auto 0.06 X10*3/uL (0.00-0.03); Imm Gran Pct Auto 0.5 % (0.0-0.4); Lymphocytes Absolute Auto 0.5 X10*3/uL (1.2-4.9); Lymphocytes Percent Auto 3.9 % (20-40); MANUAL DIFF FLAG SCAN; Mean Corpuscular HGB Conc 31.9 g/dl (31.0-35.0); Mean Corpuscular Hemoglobin 29.1 pg (27.0-33.0); Mean Platelet Volume 10.2 fL (9.4-12.3); Monocytes Absolute Auto 0.2 X10*3/uL (0.1-1.2); Monocytes Percent Auto 1.8 % (2-11); Neutrophils Absolute Auto 11.7 x10*3/uL (2.0-8.3); Neutrophils Percent Auto 93.7 % (45-73); Platelet Count 371 X10*3/uL (160-400); Red Blood Count 4.44 X10*6/uL (4.20-5.50); SCAN SMEAR FLAG 1; White Blood Count 12.5 X10*3/uL (4.8-10.8)
[2022-05-02 07:04] LABS: Anion Gap 15 (12-20); Blood Urea Nitrogen 19 mg/dL (9-16); Calcium 9.5 mg/dL (8.4-10.2); Carbon Dioxide 24 mmol/L (22-29); Chloride 107 mmol/L (96-108); Creatinine Clr Calc Pharmacy 74.7; Estimated Glomerular Filt Rate > 60; Glucose Random 127 mg/dL (60-115); Magnesium 1.9 mg/dL (1.6-2.6); Potassium 4.3 mmol/L (3.3-5.1); Sodium 142 mmol/L (135-145)
[2022-05-02 07:41] LABS: SLIDE REVIEW VERIFIED
[2022-05-02 07:46] VITALS: PULSE 60; RESP 18; O2SAT 97
[2022-05-02 07:47] LABS: Glucose, Whole Blood 153 mg/dL (60-115)
[2022-05-02 07:59] VITALS: BP 126/56; PULSE 65; RESP 18; TEMP 36.7; O2SAT 97
[2022-05-02] MEDS: Insulin Lispro 100 UNIT/ML 3 ML VIAL SUBCUT ×2 (08:34→12:05)
[2022-05-02] MEDS: Calcium + Vitamin D 250 MG TABLET PO (08:35)
[2022-05-02] MEDS: hydroCHLOROthiazide 12.5 MG TABLET PO (08:35)
[2022-05-02] MEDS: Sertraline HCL 50 MG TABLET PO (08:36)
[2022-05-02] MEDS: Clopidogrel Bisulfate 75 MG TABLET PO (08:36)
[2022-05-02] MEDS: Cyanocobalamin (Vitamin B-12) 1,000 MCG TABLET 1000 MCG PO (08:36)
[2022-05-02] MEDS: guaiFENesin LA 600 MG TAB.ER.12H 1200 MG PO (08:36)
[2022-05-02] MEDS: Gabapentin 100 MG CAPSULE PO (08:36)
[2022-05-02] MEDS: Folic Acid 1 MG TABLET PO (08:37)
[2022-05-02] MEDS: Acetaminophen 325 MG TABLET 650 MG PO (09:18)
[2022-05-02 09:28] VITALS: O2SAT 94
[2022-05-02 11:21] LABS: Glucose, Whole Blood 155 mg/dL (60-115)
[2022-05-02 11:30] VITALS: PULSE 57; RESP 18; O2SAT 97
[2022-05-02 11:31] VITALS: PULSE 55; PULSE 72; O2SAT 96
--- NOTE | 2022-05-02 11:50 | MHC.CM.NN ---
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
[2022-05-02] MEDS: Enoxaparin Sodium 40 MG/0.4 ML SYRINGE SUBCUT (12:06)
--- NOTE | 2022-05-02 12:12 | MHC.CM.PN ---
pt dcd home no skilled servcies
--- NOTE | 2022-05-02 13:10 | PM.DS ---
DS: Providers Provider Date of Service: 05/02/22 Date of admission: 05/01/22 12:30 Primary care physician: Ting Hampton MD DS: Diagnosis Discharge Diagnosis (1) COPD exacerbation: Status: Acute DS: Summary Hospital Course Hospital Course: Date of Service: 05/01/22 Attending physician on admission: Shakir Roland Chief Complaint: sob, wheezing 61-year-old female with history of asthma/COPD overlap, current everyday smoker, GERD, history TAVR procedure following endocarditis on Plavix (hx IVDA), diabetes, hypertension, hyperlipidemia, MARY noncompliant with CPAP, overactive bladder, and rheumatoid arthritis presented to the ED via EMS for evaluation of shortness of breath and wheezing ongoing for about 1 week.? She states she has also had an occasionally productive cough for the last 2 weeks.? On arrival, tachypneic to 36, oximetry 90%.? However did desaturate to 86% and was placed on supplemental O2.? Otherwise vital signs normal.? Mild leukocytosis 11.3.? Renal function normal, electrolyte levels normal.? BNP 161.? Chest x-ray negative for any acute cardiopulmonary abnormality.? UA with 3+ leukocytes, trace blood, negative nitrites, negative bacteria.? In the ED, given updraft albuterol and doxycycline along with IV methylprednisolone 125 mg. hospital course: 61-year-old female with history of asthma/COPD overlap, current everyday smoker, GERD, history TAVR procedure following endocarditis on Plavix (hx IVDA), pasemaker in place, diabetes, hypertension, hyperlipidemia, MARY noncompliant with CPAP, overactive bladder, and rheumatoid arthritis to be observed for acute asthma/COPD exacerbation. # patient admitted with Acute moderate persistent asthma/COPD exacerbation, and acute hypoxic respiratory failure, patient treated with IV steroids and IV doxycycline patient responded rapidly to treatment feeling better now shortness of breath has resolved underwent home O2 evaluation and did not qualify for home oxygen she has been strongly encouraged to quit smoking and is being discharged home on 5 days of by mouth steroids and 4 more days of doxycycline to finish a total 5 day course of antibiotics she is recommended to continue all home inhalers and follow-up with her service center supervisor # hypertension- stable blood pressure , continue home antihypertensive agents. # controlled type 2 robyaeba-yji-pjxomfa-dependent continue diabetic diet # history TAVR procedure -continue Plavix # overactive bladder -scheduled to undergo InterStim generator change follow up with Dr. Vivas # cigarette smoker -smoking cessation counseling provided, declines NRT Time Spent with Patient Time attestation: Total time managing care of this patient today ____ minutes. Discharge coordination time: Greater than 30 minutes Quality: Safe Use of Opioids Does Pt have an Active Cancer Diagnosis on the Problem List?: No Quality: Stroke Does the patient have a stroke diagnosis?: No Physical Exam Vital Signs: Vital Signs: Last Vital Signs Temp 98.1 F 05/02/22 07:59 Pulse 57 05/02/22 11:30 Resp 18 05/02/22 11:30 BP 126/56 L 05/02/22 07:59 Pulse Ox 94 05/02/22 09:28 O2 Del Method 05/02/22 09:28 O2 Flow Rate 1.5 05/02/22 07:59 Oxygen Flow Rate 1 05/01/22 06:46 BMI result Body Mass Index 30.2 Const: Other: General? appears d yspneic while talk ing, no use of acc essory muscles ?an icteric sclera Nec k? no JVD. CVS? re gular rate rhythm, Respiratory lungs ? clear breath nir nd, no wheeze Leo rointestinal abdom en soft, non tende r, bowel sounds au dible, no guarding , no rigidity. Ex tremities no edema . Neuro non focal Skin no rash psych appropriate affec t DS: Data Data Completed and Pending Labs on day of discharge: Laboratory Results - last 24 hr 05/01/22 05/01/22 05/01/22 11:44 18:29 20:40 WBC RBC Hgb Hct MCV MCH MCHC RDW Plt Count MPV Immature Gran % (Auto) Neut % (Auto) Lymph % (Auto) [place] % (Auto) Eos % (Auto) Baso % (Auto) Lymph # (Auto) [place] # (Auto) Eos # (Auto) Baso # (Auto) Abs Immat Gran (auto) Absolute Neuts (auto) Absolute Nucleated RBC Nucleated RBC % (auto) Smear Tech's Comments Sodium Potassium Chloride Carbon Dioxide Anion Gap BUN Creatinine Estim Creat Clear Calc Estimated GFR POC Glucose 202 H 110 Random Glucose Calcium Magnesium Respiratory Panel Damico See Note Adenovirus (Rapid PCR) Not Detected B.pert (TEM-PCR) Not Detected B.parapertussis DNA PCR Not Detected C. pneumoniae DNA (PCR) Not Detected Coronavirus OC43 (PCR) Not Detected Coronavirus HKU1 (PCR) Not Detected Coronavirus 229E (PCR) Not Detected Coronavirus NL63 (PCR) Not Detected Human Metapneumovir PCR Not Detected Influenza A (RT-PCR) Not Detected Influenza B (RT-PCR) Not Detected M. pneumoniae (PCR) Not Detected Parainfluenza 1 (PCR) Not Detected Parainfluenza 2 (PCR) Not Detected Parainfluenza 3 (PCR) Not Detected Parainfluenza 4 (PCR) Not Detected RSV (PCR) Not Detected Entero/Rhino (PCR) Not Detected SARS-CoV-2 RNA (RT-PCR) Not Detected 05/02/22 05/02/22 05/02/22 05:28 05:28 07:15 WBC 12.5 H RBC 4.44 Hgb 12.9 Hct 40.4 MCV 91.0 MCH 29.1 MCHC 31.9 RDW 13.0 Plt Count 371 MPV 10.2 Immature Gran % (Auto) 0.5 H Neut % (Auto) 93.7 H Lymph % (Auto) 3.9 L [place] % (Auto) 1.8 L Eos % (Auto) 0.0 Baso % (Auto) 0.1 Lymph # (Auto) 0.5 L [place] # (Auto) 0.2 Eos # (Auto) 0.0 Baso # (Auto) 0.0 Abs Immat Gran (auto) 0.06 H Absolute Neuts (auto) 11.7 H Absolute Nucleated RBC 0.000 Nucleated RBC % (auto) 0.0 Smear Tech's Comments VERIFIED Sodium 142 Potassium 4.3 Chloride 107 Carbon Dioxide 24 Anion Gap 15 BUN 19 H Creatinine 0.68 Estim Creat Clear Calc 74.7 Estimated GFR > 60 POC Glucose 153 H Random Glucose 127 H Calcium 9.5 Magnesium 1.9 Respiratory Panel [place] Adenovirus (Rapid PCR) B.pert (TEM-PCR) B.parapertussis DNA PCR C. pneumoniae DNA (PCR) Coronavirus OC43 (PCR) Coronavirus HKU1 (PCR) Coronavirus 229E (PCR) Coronavirus NL63 (PCR) Human Metapneumovir PCR Influenza A (RT-PCR) Influenza B (RT-PCR) M. pneumoniae (PCR) Parainfluenza 1 (PCR) Parainfluenza 2 (PCR) Parainfluenza 3 (PCR) Parainfluenza 4 (PCR) RSV (PCR) Entero/Rhino (PCR) SARS-CoV-2 RNA (RT-PCR) 05/02/22 11:11 WBC RBC Hgb Hct MCV MCH MCHC RDW Plt Count MPV Immature Gran % (Auto) Neut % (Auto) Lymph % (Auto) [place] % (Auto) Eos % (Auto) Baso % (Auto) Lymph # (Auto) [place] # (Auto) Eos # (Auto) Baso # (Auto) Abs Immat Gran (auto) Absolute Neuts (auto) Absolute Nucleated RBC Nucleated RBC % (auto) Smear Tech's Comments Sodium Potassium Chloride Carbon Dioxide Anion Gap BUN Creatinine Estim Creat Clear Calc Estimated GFR POC Glucose 155 H Random Glucose Calcium Magnesium Respiratory Panel [place] Adenovirus (Rapid PCR) B.pert (TEM-PCR) B.parapertussis DNA PCR C. pneumoniae DNA (PCR) Coronavirus OC43 (PCR) Coronavirus HKU1 (PCR) Coronavirus 229E (PCR) Coronavirus NL63 (PCR) Human Metapneumovir PCR Influenza A (RT-PCR) Influenza B (RT-PCR) M. pneumoniae (PCR) Parainfluenza 1 (PCR) Parainfluenza 2 (PCR) Parainfluenza 3 (PCR) Parainfluenza 4 (PCR) RSV (PCR) Entero/Rhino (PCR) SARS-CoV-2 RNA (RT-PCR) Preliminary micro results at discharge 05/01/22 09:37 Blood Culture - Preliminary Blood - Venous No growth after 24 hours. 05/01/22 07:21 Blood Culture - Preliminary Blood - Venous No growth after 24 hours. Discharge Plan Discharge Anticipated Discharge Date/Time: 05/02/22 11:36 Patient Disposition: Home, Self-Care Referrals: Ting Packer MD [Primary Care Provider] - 1 Week Discharge Medications: New prednisone 10 mg tablet 10 mg PO DAILY Qty: 5 0RF doxycycline hyclate 100 mg capsule 100 mg PO BID Qty: 8 0RF Continued acetaminophen 650 mg tablet extended release 650 mg PO Q8H PRN (Reason: pain) Qty: 90 3RF fluticasone propion-salmeterol [Advair Diskus] 500-50 mcg/dose blister with device 1 inh inhalation BID 30 Days Qty: 60 1RF calcium carbonate-vitamin D3 600 mg(1,500mg) -400 unit tablet 1 tab PO DAILY gabapentin 100 mg capsule 100 mg PO TID sertraline 50 mg tablet 50 mg PO DAILY bisacodyl 5 mg tablet,delayed release (DR/EC) 10 mg PO BEDTIME hydrochlorothiazide 12.5 mg tablet 12.5 mg PO DAILY montelukast 10 mg tablet 10 mg PO BEDTIME albuterol sulfate 90 mcg/actuation HFA aerosol inhaler 2 puff inhalation Q6H PRN (Reason: Wheezing) Spiriva with HandiHaler 18 mcg capsule, w/inhalation device 1 cap inhalation DAILY Rx Instructions: puncture 1 cap using device; one dose = 2 inhalations clopidogrel 75 mg tablet 75 mg PO DAILY melatonin 5 mg tablet 5 mg PO BEDTIME amitriptyline 25 mg tablet 25 mg PO BEDTIME Mucinex 1,200 mg tablet extended release 12hr 1,200 mg PO BID 14 Days Qty: 28 2RF folic acid 1 mg tablet 1 mg PO DAILY cyanocobalamin (vitamin B-12) 1,000 mcg tablet 1,000 mcg PO QAM Discharge Orders: Discharge Order (Routine); Ordered 05/02/22 Ordered By: Shakir Roland Diet: Advance to usual diet Activity on Discharge: As tolerated Stand Alone Forms: Patient Portal Discharge page Care Plan Goals: COPD exacerbation resolved, take prednisone 1 tablet daily for 5 days, doxycycline 100 mg 1 tablet twice daily for 4 more days strongly recommend to abstain from smoking did not qualify for home oxygen Health Concerns: take all home medications as before Plan of Treatment: follow-up with primary care physician and service center supervisor Dr. Simpson call to make an appointment Assessment: as above
== END 2022-05-02 13:42 | disposition home or self-care (01) ==
LOC: HO.ED 10:42 → HO.EDOVER 12:42 → HO.S3 16:57
PROVIDERS: Admitting Provider Physician Assistant; Emergency Provider Emergency Medicine; PCP Internal Medicine; Visit Provider Hospitalist
DX: J44.1 Chronic obstructive pulmonary disease with (acute) exacerbation (principal); Z72.0 Tobacco use; I10 Essential (primary) hypertension; Z95.0 Presence of cardiac pacemaker; K21.9 Gastro-esophageal reflux disease without esophagitis; E11.9 Type 2 diabetes mellitus without complications; Z79.84 Long term (current) use of oral hypoglycemic drugs; G47.33 Obstructive sleep apnea (adult) (pediatric); N32.81 Overactive bladder
CPT/HCPCS: 36415; 71045; 80048; 80076; 81001; 82947; 83036; 83605; 83690; 83735; 83880; 84484; 85025; 87040; 87086; 87633; 87635; 93005; 94640; 96365; 96366; 96367; 96372; 96375; 96376; 99221; 99285; J1650; J2920; J2930; J3475

== ENCOUNTER → 2022-05-05 09:29 | Day surgery (SDC) | payer MEDICAID, SELFPAY ==
--- NOTE | 2022-02-09 14:25 | HO.ANESPROP2 ---
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 Cardiac cleared but referred to pulm Pulm states Poor surgical risk, but not prohibitory pacer in situ s/p AVR r/t endocarditis 2004 (hx drug abuse) - on plavix prednisone daily for COPD Case reviewed with Dr Tita HERNANDEZ Active Problems Active Problems: All Active Problems (Updated 02/07/22 @ 14:21 by Lakshmi Parker, EMANUEL) COPD exacerbation (Acute) Hx of diabetes mellitus (Acute) Overactive bladder (Acute) Bronchitis (Acute) Allergic rhinitis (Acute) Past Medical History Medical History (Updated 02/07/22 @ 14:21 by Lakshmi Parker RN) Allergic rhinitis Aortic valve endocarditis Asthma Bronchitis COPD (chronic obstructive pulmonary disease) COPD (chronic obstructive pulmonary disease) COPD exacerbation Family history of GERD Fibromyalgia GERD (gastroesophageal reflux disease) History of arthritis History of depression History of enuresis History of urinary incontinence Hx of allergic rhinitis Hx of cardiac pacemaker Hx of coronary artery disease Hx of diabetes mellitus Hx of drug abuse Hx of essential hypertension Hx of hyperlipidemia Hx of migraines Hx of osteoarthritis Hx of pilonidal cyst MARY (obstructive sleep apnea) Overactive bladder Rheumatoid arthritis Surgical History Surgical History (Updated 02/07/22 @ 14:21 by Lakshmi Parker RN) History of cystoscopy History of epidermal inclusion cyst excision History of hysterectomy History of surgical removal of pilonidal cyst Hx laparoscopic cholecystectomy Hx of aortic valve replacement Hx of bilateral cataract extraction Hx of colonoscopy Social History Social History Household Members: Children Housing: Apartment Alcohol intake: never Patient Tobacco Use Status: Current everyday Tobacco user Cigarettes Per Day: 3 service: No Current occupational status: unemployed and disabled Meds Allergies Allergy/AdvReac Type Severity Reaction Status Date / Time latex [LATEX] Allergy Severe DIFFICULTY Verified 02/07/22 11:01 BREATHING aspirin [Aspirin] Allergy Intermediate ITCHING, Verified 02/07/22 11:01 itchiness ciprofloxacin [From CIPRO] Allergy Intermediate DIAPHORESIS Verified 02/07/22 11:01 /PURITIS Penicillins [PENICILLINS] Allergy Unknown UNKNOWN Verified 02/07/22 11:01 HEMALATHA Inhibitors AdvReac Intermediate COUGH Verified 02/07/22 11:01 [HEMALATHA INHIBITORS] Home Medications Medication Instructions Recorded Confirmed Last Taken Type albuterol sulfate 90 mcg/actuation 2 puff inhalation Q6H PRN Wheezing 12/23/19 02/07/22 Unknown History aerosol inhaler bisacodyl 5 mg tablet,delayed 10 mg PO BEDTIME 12/23/19 02/07/22 Unknown History release clopidogrel 75 mg tablet 75 mg PO DAILY 12/23/19 02/07/22 11/06/21 History furosemide 20 mg tablet 10 mg PO DAILY 12/23/19 02/07/22 11/06/21 History gabapentin 100 mg capsule 100 mg PO TID 12/23/19 02/07/22 11/06/21 History hydrochlorothiazide 12.5 mg tablet 12.5 mg PO DAILY 12/23/19 02/07/22 11/06/21 History montelukast 10 mg tablet 10 mg PO BEDTIME 12/23/19 02/07/22 Unknown History sertraline 50 mg tablet 50 mg PO DAILY 12/23/19 02/07/22 11/06/21 History tiotropium bromide 18 mcg capsule 1 cap inhalation DAILY 12/23/19 02/07/22 11/06/21 History with inhalation device (Spiriva with HandiHaler) calcium carbonate 600 mg-vitamin 1 tab PO DAILY 11/22/20 02/07/22 11/06/21 History D3 10 mcg (400 unit) tablet amitriptyline 25 mg tablet 25 mg PO BEDTIME 08/04/21 02/07/22 Unknown History melatonin 5 mg tablet 5 mg PO BEDTIME 08/04/21 02/07/22 Unknown History cyanocobalamin (vitamin B-12) 1,000 mcg PO QAM 10/24/21 02/07/22 11/06/21 History 1,000 mcg tablet folic acid 1 mg tablet 1 mg PO QAM 10/24/21 12/01/21 11/06/21 History Exam Exam Date and Time: February 09, 2022 1425 Pertinent Lab Results Pertinent Lab Results: Laboratory Tests 12/01/21 12/01/21 10:49 10:49 WBC 10.1 Hgb 16.0 Hct 49.0 H Plt Count 349 Sodium 139 Potassium 3.7 Chloride 98 Carbon Dioxide 25 BUN 31 H D Creatinine 1.10 Narrative Narrative: EKG 10/2021 Vent. Rate : 075 BPM ? ? Atrial Rate : 096 BPM ?? P-R Int : 000 ms? QRS Dur : 150 ms ? ? QT Int : 468 ms ? ? ? P-R-T Axes : 000 -74 091 degrees ?? QTc Int : 522 ms ? Sinus rhythm with complete heart block and Ventricular-paced rhythm with frequent Premature ventricular complexes Abnormal ECG When compared with ECG of 16-DEC-2020 14:28, Sinus rhythm is now with complete heart block Vent. rate has increased BY? 12 BPM ECHO 09/2020 LV size is normal. LV wall thickness nml. LV systolic function is mildly reduced. LVEF 40-45% Homograft in aortic position, not well visualized. Valve appears calcified. Moderate aortic stenosis. Mean gradient is 15mmHg. Mild aortic regurg Mitral valve appears normal. Mild mitral regurg. No mitral stenosis. RV is nml in size and function Pacer interrogation 09/2021 (copy on chart) VVIR 60-105 bpm Nml lead and device function Assessment and Plan Assessment Anesthesia Assessment: Chart Reviewed
--- NOTE | 2022-04-28 12:41 | HO.ANESPROP2 ---
HPI - Anesthesia Eval Consult details Narrative: Pt to [facility] via EMS for SOB on DOS. 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 Cardiac cleared but referred to pulm Pulm states Poor surgical risk, but not prohibitory pacer in situ s/p AVR r/t endocarditis 2004 (hx drug abuse) - on plavix prednisone daily for COPD Case reviewed with Dr Tita HERNANDEZ Active Problems Active Problems: All Active Problems (Updated 04/20/22 @ 15:14 by Wally Simpson MD) Reactive airways dysfunction syndrome (Acute) COPD exacerbation (Acute) Hx of diabetes mellitus (Acute) Overactive bladder (Acute) Bronchitis (Acute) Allergic rhinitis (Acute) Past Medical History Medical History Allergic rhinitis Aortic valve endocarditis Asthma Bronchitis COPD (chronic obstructive pulmonary disease) COPD (chronic obstructive pulmonary disease) COPD exacerbation Family history of GERD Fibromyalgia GERD (gastroesophageal reflux disease) History of arthritis History of depression History of enuresis History of urinary incontinence Hx of allergic rhinitis Hx of cardiac pacemaker Hx of coronary artery disease Hx of diabetes mellitus Hx of drug abuse Hx of essential hypertension Hx of hyperlipidemia Hx of migraines Hx of osteoarthritis Hx of pilonidal cyst MARY (obstructive sleep apnea) Overactive bladder Reactive airways dysfunction syndrome Rheumatoid arthritis Surgical History Surgical History History of cystoscopy History of epidermal inclusion cyst excision History of hysterectomy History of surgical removal of pilonidal cyst Hx laparoscopic cholecystectomy Hx of aortic valve replacement Hx of bilateral cataract extraction Hx of colonoscopy Social History Social History Household Members: None Housing: Apartment Do you presently have visiting nurse or other home services: No Alcohol intake: never Patient Tobacco Use Status: Current everyday Tobacco user Tobacco use type: Cigarette Cigarettes Per Day: 2 Advance Directives: Yes Advance Directives Information Provided: Yes Advance Directives on File: Yes Advance Directives Date on File: 11/08/21 service: No Current occupational status: unemployed and disabled Meds Allergies Allergy/AdvReac Type Severity Reaction Status Date / Time latex [LATEX] Allergy Severe DIFFICULTY Verified 04/20/22 14:35 BREATHING aspirin [Aspirin] Allergy Intermediate ITCHING, Verified 04/20/22 14:35 itchiness ciprofloxacin [From CIPRO] Allergy Intermediate DIAPHORESIS Verified 04/20/22 14:35 /PURITIS Penicillins [PENICILLINS] Allergy Unknown UNKNOWN Verified 04/20/22 14:35 HEMALATHA Inhibitors AdvReac Intermediate COUGH Verified 04/20/22 14:35 [HEMALATHA INHIBITORS] Home Medications Medication Instructions Recorded Confirmed Last Taken Type albuterol sulfate 90 mcg/actuation 2 puff inhalation Q6H PRN Wheezing 12/23/19 05/01/22 Unknown History aerosol inhaler bisacodyl 5 mg tablet,delayed 10 mg PO BEDTIME 12/23/19 05/01/22 04/30/22 History release clopidogrel 75 mg tablet 75 mg PO DAILY 12/23/19 05/01/22 04/30/22 History gabapentin 100 mg capsule 100 mg PO TID 12/23/19 05/01/22 04/30/22 History hydrochlorothiazide 12.5 mg tablet 12.5 mg PO DAILY 12/23/19 05/01/22 04/30/22 History montelukast 10 mg tablet 10 mg PO BEDTIME 12/23/19 05/01/22 04/30/22 History sertraline 50 mg tablet 50 mg PO DAILY 12/23/19 05/01/22 04/30/22 History tiotropium bromide 18 mcg capsule 1 cap inhalation DAILY 12/23/19 05/01/22 04/30/22 History with inhalation device (Spiriva with HandiHaler) calcium carbonate 600 mg-vitamin 1 tab PO DAILY 11/22/20 05/01/22 04/30/22 History D3 10 mcg (400 unit) tablet amitriptyline 25 mg tablet 25 mg PO BEDTIME 08/04/21 05/01/22 04/30/22 History melatonin 5 mg tablet 5 mg PO BEDTIME 08/04/21 05/01/22 04/30/22 History cyanocobalamin (vitamin B-12) 1,000 mcg PO QAM 10/24/21 05/01/22 04/30/22 History 1,000 mcg tablet folic acid 1 mg tablet 1 mg PO DAILY 10/24/21 05/01/22 04/30/22 History Exam Exam Date and Time: April 28, 2022 1241 Pertinent Lab Results Pertinent Lab Results: Laboratory Tests 03/07/22 03/07/22 17:05 17:21 WBC 12.3 H Hgb 15.0 Hct 45.9 Plt Count 306 Sodium 142 Potassium 4.6 D Chloride 105 Carbon Dioxide 28 BUN 13 D Creatinine 0.76 Narrative Narrative: EKG 10/2021 Vent. Rate : 075 BPM ? ? Atrial Rate : 096 BPM ?? P-R Int : 000 ms? QRS Dur : 150 ms ? ? QT Int : 468 ms ? ? ? P-R-T Axes : 000 -74 091 degrees ?? QTc Int : 522 ms ? Sinus rhythm with complete heart block and Ventricular-paced rhythm with frequent Premature ventricular complexes Abnormal ECG When compared with ECG of 16-DEC-2020 14:28, Sinus rhythm is now with complete heart block Vent. rate has increased BY? 12 BPM ECHO 09/2020 LV size is normal. LV wall thickness nml. LV systolic function is mildly reduced. LVEF 40-45% Homograft in aortic position, not well visualized. Valve appears calcified. Moderate aortic stenosis. Mean gradient is 15mmHg. Mild aortic regurg Mitral valve appears normal. Mild mitral regurg. No mitral stenosis. RV is nml in size and function Pacer interrogation 09/2021 (copy on chart) VVIR 60-105 bpm Nml lead and device function Assessment and Plan Assessment Anesthesia Assessment: Chart Reviewed
== END ==
PROVIDERS: PCP Internal Medicine; Visit Provider Urology
DX: N39.41 Urge incontinence (principal); Z53.8 Procedure and treatment not carried out for other reasons

== ENCOUNTER → 2022-06-20 09:18 | Outpatient (BNVA) | payer MEDICAID, SELFPAY | PROVIDERS: PCP Internal Medicine; Visit Provider Internal Medicine | DX: J68.3 Other acute and subacute respiratory conditions due to chemicals, gases, fumes and vapors (principal); J40 Bronchitis, not specified as acute or chronic; J30.9 Allergic rhinitis, unspecified; G47.33 Obstructive sleep apnea (adult) (pediatric); Z99.89 Dependence on other enabling machines and devices | CPT/HCPCS: 94618; 99212 ==

== ENCOUNTER 2022-07-02 21:23 | Inpatient (IN) | payer MEDICAID, SELFPAY ==
--- NOTE | ~2022-07-02 | XR_ITS ---
EXAMINATION: XR CHEST CLINICAL INFORMATION: Chest pain. COMPARISON: Chest x-ray 05/01/2022 TECHNIQUE: Frontal portable view of the chest was obtained. 10:46 PM FINDINGS: Pacemaker leads in the right ventricle. Status post median sternotomy. No acute abnormality. No focal consolidation. No pleural effusion or pneumothorax. Surgical clips right upper quadrant of abdomen. XR/XR chest 1V IMPRESSION: No acute abnormality of the chest.
[2022-07-02 21:26] VITALS: BP 158/92; PULSE 82; O2SAT 97
[2022-07-02 21:35] VITALS: BP 168/79; PULSE 68; RESP 28; TEMP 37.2; O2SAT 96; BMI 30.5
--- NOTE | 2022-07-02 22:12 | ECG_ITS ---
Test Reason : chest pain Blood Pressure : / mmHG Vent. Rate : 061 BPM Atrial Rate : 061 BPM P-R Int : 000 ms QRS Dur : 146 ms QT Int : 476 ms P-R-T Axes : 000 261 090 degrees QTc Int : 479 ms Ventricular-paced rhythm Abnormal ECG When compared with ECG of 01-MAY-2022 06:37, Premature ventricular complexes are no longer Present Vent. rate has decreased BY 6 BPM Referred By: Yudi Hurtado Electronically Signed By:RANDI EMERSON
--- NOTE | 2022-07-02 22:16 | ED_ITS ---
HPI - SOB/Dyspnea General Chief Complaint: Dyspnea Stated Complaint: CP/Lt arm pain Time Seen by Provider: 07/02/22 21:27 History of Present Illness HPI Narrative: Patient is a 61-year-old female with a history of diabetes, aortic valve replacement, previous history of COPD baseline not on oxygen. On Plavix. Presented today with having increasing shortness of breath since this morning. Tightness in her chest. Patient denies any fever any chills. No coughing or congestion or upper respiratory symptoms. No diaphoresis. Related Data Home Medications Medication Instructions Recorded Confirmed albuterol sulfate 90 mcg/actuation 2 puff inhalation Q6H PRN Wheezing 12/23/19 05/01/22 aerosol inhaler bisacodyl 5 mg tablet,delayed 10 mg PO BEDTIME 12/23/19 05/01/22 release clopidogrel 75 mg tablet 75 mg PO DAILY 12/23/19 05/01/22 gabapentin 100 mg capsule 100 mg PO TID 12/23/19 05/01/22 hydrochlorothiazide 12.5 mg tablet 12.5 mg PO DAILY 12/23/19 05/01/22 montelukast 10 mg tablet 10 mg PO BEDTIME 12/23/19 05/01/22 sertraline 50 mg tablet 50 mg PO DAILY 12/23/19 05/01/22 tiotropium bromide 18 mcg capsule 1 cap inhalation DAILY 12/23/19 05/01/22 with inhalation device (Spiriva with HandiHaler) calcium carbonate 600 mg-vitamin 1 tab PO DAILY 11/22/20 05/01/22 D3 10 mcg (400 unit) tablet amitriptyline 25 mg tablet 25 mg PO BEDTIME 08/04/21 05/01/22 melatonin 5 mg tablet 5 mg PO BEDTIME 08/04/21 05/01/22 cyanocobalamin (vitamin B-12) 1,000 mcg PO QAM 10/24/21 05/01/22 1,000 mcg tablet folic acid 1 mg tablet 1 mg PO DAILY 10/24/21 05/01/22 ipratropium 0.5 mg-albuterol 3 mg ml inhalation QID 06/20/22 (2.5 mg base)/3 mL nebulization soln Previous Rx's Medication Instructions Recorded acetaminophen 650 mg 650 mg PO Q8H PRN pain #90 tabs 05/30/22 tablet,extended release azithromycin 250 mg tablet 250 mg PO 3XW for asthma #13 tabs 06/05/22 fluticasone 500 mcg-salmeterol 50 1 ea PO BID #60 ea 06/05/22 mcg/dose blistr powdr for inhalation (Advair Diskus) Allergies Allergy/AdvReac Type Severity Reaction Status Date / Time latex [LATEX] Allergy Severe DIFFICULTY Verified 06/20/22 11:42 BREATHING aspirin [Aspirin] Allergy Intermediate ITCHING, Verified 06/20/22 11:42 itchiness ciprofloxacin [From CIPRO] Allergy Intermediate DIAPHORESIS Verified 06/20/22 11:42 /PURITIS Penicillins [PENICILLINS] Allergy Unknown UNKNOWN Verified 06/20/22 11:42 HEMALATHA Inhibitors AdvReac Intermediate COUGH Verified 06/20/22 11:42 [HEMALATHA INHIBITORS] Review of Systems Review of Systems: Positive shortness of breath Yes all other systems are reviewed and are negative [facility] Past Medical History Attestation statement: The following information was validated with the patient. Medical History Allergic rhinitis Aortic valve endocarditis Asthma Bronchitis COPD (chronic obstructive pulmonary disease) COPD (chronic obstructive pulmonary disease) COPD exacerbation Family history of GERD Fibromyalgia GERD (gastroesophageal reflux disease) History of arthritis History of depression History of enuresis History of urinary incontinence Hx of allergic rhinitis Hx of cardiac pacemaker Hx of coronary artery disease Hx of diabetes mellitus Hx of drug abuse Hx of essential hypertension Hx of hyperlipidemia Hx of migraines Hx of osteoarthritis Hx of pilonidal cyst MARY (obstructive sleep apnea) MARY on CPAP Overactive bladder Reactive airways dysfunction syndrome Rheumatoid arthritis Surgical History History of cystoscopy History of epidermal inclusion cyst excision History of hysterectomy History of surgical removal of pilonidal cyst Hx laparoscopic cholecystectomy Hx of aortic valve replacement Hx of bilateral cataract extraction Hx of colonoscopy Social History Social History Household Members: None Housing: Apartment Do you presently have visiting nurse or other home services: No Alcohol intake: never Patient Tobacco Use Status: Current everyday Tobacco user Tobacco use type: Cigarette Cigarettes Per Day: 2 Advance Directives: Yes Advance Directives on File: Yes Advance Directives Date on File: 11/08/21 service: No Current occupational status: unemployed and disabled Physical Exam Vital Signs: Vital Signs: Last Vital Signs Temp 98.9 F 07/02/22 21:35 Pulse 63 07/02/22 22:34 Resp 18 07/02/22 22:34 BP 168/79 H 07/02/22 21:35 Pulse Ox 96 07/02/22 21:35 O2 Del Method Room Air 07/02/22 21:35 BMI result Body Mass Index 30.5 Appearance: Alert. Oriented X3. No acute distress. Eyes: Pupils equal, round and reactive to light. ENT: Pharynx normal. Neck: Normal inspection. Neck supple. No lymph nodes noted. No crepitus CVS: Normal heart rate and rhythm. Pulses normal. Normal S1 and S2 Respiratory: Diminished breath sounds bilaterally. Increased work of breathing. Positive wheezing bilaterally Abdomen: Soft and nontender. No rigidity. No distention. good BS x4 Skin: Skin warm and dry. Normal skin color. Normal skin turgor. Extremities: No lower extremity edema. Neurovascular intact to all extremities. No Lacerations. No Rash Neuro: Oriented X 3. No motor deficit. No sensory deficit. Moving all extermities. No slurred speech Medications Administered Discontinued Medications Generic Name Dose Route Start Last Admin Trade Name Freq PRN Reason Stop Dose Admin Albuterol Sulfate 10 mg 07/02/22 21:42 07/02/22 22:32 Albuterol Sulfate (0.083%) 2.5 Mg/3 Ml Vial.Neb INHALE 07/02/22 21:43 10 mg ONCE ONE Administration Albuterol Sulfate 10 mg 07/02/22 22:12 07/02/22 22:35 Albuterol Sulfate (0.083%) 2.5 Mg/3 Ml Vial.Neb INHALE 07/02/22 22:13 Not Given ONCE ONE Magnesium Sulfate 2 gm in 50 mls @ 150 mls/hr 07/02/22 22:12 07/02/22 22:45 Magnesium Sulfate/H2o IV 07/02/22 22:31 150 mls/hr ONCE ONE Administration Methylprednisolone Sodium Succinate 125 mg 07/02/22 22:12 07/02/22 22:45 Methylprednisolone Sod Succ 125 Mg/2 Ml Vial IVPUSH 07/02/22 22:13 125 mg ONCE ONE Administration Medical Decision Making Medical Decision Making MDM Narrative: Patient is a 61-year-old female with a history of diabetes, COPD, aortic valve replacement presented today with having increasing shortness of breath wheezing. Patient on presentation extremely short of breath diminished breath sounds bilaterally consistent with COPD. Neb given steroid given monitor carefully continuous 10 mg albuterol was given. Patient's BNP is not elevated, no evidence for CHF. My interpretation of Patient's chest x-ray negative for any acute evidence of pneumonia. No evidence of pneumonia on x-ray. Patient's case discussed with her. Will admit for further evaluation. Patient's urine showed an infection. Will start antibiotics. Differential Diagnosis Differential Diagnoses: The differential diagnosis associated with the presentation includes Pneumonia, congestive heart failure, pneumothorax, rib fracture, COPD exacerbation Admission/Observation Consideration of admission/observation: Escalation of care including admission/observation considered Consult Healthcare Provider Management of the patient was discussed with: Hospitalist Lab Data [facility] Lab Attestation statement: I reviewed the patient's lab results. 07/02/22 23:00 07/02/22 23:00 Labs: Lab Results 07/02/22 07/02/22 07/02/22 Range/Units 22:40 23:00 23:00 WBC 9.7 (4.8-10.8) X10*3/uL RBC 4.76 (4.20-5.50) X10*6/uL Hgb 13.9 (12.0-16.0) g/dl Hct 43.8 (37.0-47.0) % MCV 92.0 (80.0-98.0) fL MCH 29.2 (27.0-33.0) pg MCHC 31.7 (31.0-35.0) g/dl RDW 13.2 (11.0-16.0) % Plt Count 298 (160-400) X10*3/uL MPV 9.6 (9.4-12.3) fL Immature Gran % (Auto) 0.3 (0.0-0.4) % Neut % (Auto) 64.2 (45-73) % Lymph % (Auto) 21.5 (20-40) % [place] % (Auto) 9.3 (2-11) % Eos % (Auto) 4.2 H (0-4) % Baso % (Auto) 0.5 (0-2) % Lymph # (Auto) 2.1 (1.2-4.9) X10*3/uL [place] # (Auto) 0.9 (0.1-1.2) X10*3/uL Eos # (Auto) 0.4 (0.0-0.4) X10*3/uL Baso # (Auto) 0.1 (0.0-0.2) X10*3/uL Abs Immat Gran (auto) 0.03 (0.00-0.03) X10*3/uL Absolute Neuts (auto) 6.2 (2.0-8.3) x10*3/uL Absolute Nucleated RBC 0.000 (0.0-0.012) X10*3/uL Nucleated RBC % (auto) 0.0 (0.0-0.2) /100WBC Sodium 141 (135-145) mmol/L Potassium 3.9 (3.3-5.1) mmol/L Chloride 104 (96-108) mmol/L Carbon Dioxide 27 (22-29) mmol/L Anion Gap 14 (12-20) BUN 19 H (9-16) mg/dL Creatinine 0.91 (0.5-1.4) mg/dL Estim Creat Clear Calc 56.0 Estimated GFR > 60 Random Glucose 102 (60-115) mg/dL Calcium 9.5 (8.4-10.2) mg/dL Magnesium 2.0 (1.6-2.6) mg/dL Total Bilirubin 0.4 (0.0-1.0) mg/dL Direct Bilirubin 0.1 (0.0-0.5) mg/dL AST 17 (5-31) U/L ALT 13 (0-31) U/L Alkaline Phosphatase 62 (39-117) U/L Troponin I High Sens (<3.5-17.0) ng/L B-Natriuretic Peptide (<100) pg/mL Total Protein 6.5 (6.5-8.0) g/dL Albumin 4.0 (3.5-5.0) g/dL Urine Color Yellow Urine Appearance Hazy Urine pH 6.5 (5.0-9.0) Ur Specific [place] 1.010 (1.005-1.025) Urine Protein Trace (Neg-Trace) mg/dL Urine Glucose (UA) Negative (Negative) mg/dL Urine Ketones Negative (Negative) mg/dL Urine Blood Moderate (2+) H (Negative) Urine Nitrite Negative (Negative) Ur Leukocyte Esterase Large (3+) H (Negative) Urine RBC 0-2 (0-2) /HPF Urine WBC >50 H (0-5) /HPF Ur Squamous Epith Cells >20 (0-2) /HPF Urine Bacteria 3+ (None Seen) Hyaline Casts 0-2 (0-2) /LPF Influenza Type A (PCR) (Negative) Influenza Type B (PCR) (Negative) RSV RNA Qual (PCR) (Negative) SARS-CoV-2 RNA (RT-PCR) (Negative) 07/02/22 07/02/22 07/02/22 Range/Units 23:00 23:00 23:07 WBC (4.8-10.8) X10*3/uL RBC (4.20-5.50) X10*6/uL Hgb (12.0-16.0) g/dl Hct (37.0-47.0) % MCV (80.0-98.0) fL MCH (27.0-33.0) pg MCHC (31.0-35.0) g/dl RDW (11.0-16.0) % Plt Count (160-400) X10*3/uL MPV (9.4-12.3) fL Immature Gran % (Auto) (0.0-0.4) % Neut % (Auto) (45-73) % Lymph % (Auto) (20-40) % [place] % (Auto) (2-11) % Eos % (Auto) (0-4) % Baso % (Auto) (0-2) % Lymph # (Auto) (1.2-4.9) X10*3/uL [place] # (Auto) (0.1-1.2) X10*3/uL Eos # (Auto) (0.0-0.4) X10*3/uL Baso # (Auto) (0.0-0.2) X10*3/uL Abs Immat Gran (auto) (0.00-0.03) X10*3/uL Absolute Neuts (auto) (2.0-8.3) x10*3/uL Absolute Nucleated RBC (0.0-0.012) X10*3/uL Nucleated RBC % (auto) (0.0-0.2) /100WBC Sodium (135-145) mmol/L Potassium (3.3-5.1) mmol/L Chloride (96-108) mmol/L Carbon Dioxide (22-29) mmol/L Anion Gap (12-20) BUN (9-16) mg/dL Creatinine (0.5-1.4) mg/dL Estim Creat Clear Calc Estimated GFR Random Glucose (60-115) mg/dL Calcium (8.4-10.2) mg/dL Magnesium (1.6-2.6) mg/dL Total Bilirubin (0.0-1.0) mg/dL Direct Bilirubin (0.0-0.5) mg/dL AST (5-31) U/L ALT (0-31) U/L Alkaline Phosphatase (39-117) U/L Troponin I High Sens 13.7 (<3.5-17.0) ng/L B-Natriuretic Peptide 147 H (<100) pg/mL Total Protein (6.5-8.0) g/dL Albumin (3.5-5.0) g/dL Urine Color Urine Appearance Urine pH (5.0-9.0) Ur Specific [place] (1.005-1.025) Urine Protein (Neg-Trace) mg/dL Urine Glucose (UA) (Negative) mg/dL Urine Ketones (Negative) mg/dL Urine Blood (Negative) Urine Nitrite (Negative) Ur Leukocyte Esterase (Negative) Urine RBC (0-2) /HPF Urine WBC (0-5) /HPF Ur Squamous Epith Cells (0-2) /HPF Urine Bacteria (None Seen) Hyaline Casts (0-2) /LPF Influenza Type A (PCR) NEGATIVE (Negative) Influenza Type B (PCR) NEGATIVE (Negative) RSV RNA Qual (PCR) NEGATIVE (Negative) SARS-CoV-2 RNA (RT-PCR) NEGATIVE (Negative) Independent Interpretation I performed an independent interpretation of an: EKG and Plain X-Ray Interpretation: The EKG my interpretation shows a paced rhythm Plain chest x-ray showed no pneumonia no pneumothorax Radiology Impression Discussion of test interpretation with radiology: I have reviewed the radiologist's reading. External Record Review External record reviewed: Inpatient record Critical Care Time Critical Care Time Critical Care Time: Yes Total Critical Care Time: 40 Attestation: I have personally provided 40 minutes of critical care time exclusive of time spent on separately billable procedures. Time includes review of lab data, radiology results, discussion with consultants, and monitoring for potential decompensation. Interventions were performed as documented above Discharge Plan Discharge Clinical Impression: COPD (chronic obstructive pulmonary disease) Patient Disposition: Admitted As Inpatient Prescriptions: No Action acetaminophen 650 mg tablet extended release 650 mg PO Q8H PRN (Reason: pain) Qty: 90 3RF fluticasone propion-salmeterol [Advair Diskus] 500-50 mcg/dose blister with device 1 ea PO BID Qty: 60 1RF azithromycin 250 mg tablet 250 mg PO 3XW Qty: 13 3RF calcium carbonate-vitamin D3 600 mg(1,500mg) -400 unit tablet 1 tab PO DAILY gabapentin 100 mg capsule 100 mg PO TID sertraline 50 mg tablet 50 mg PO DAILY bisacodyl 5 mg tablet,delayed release (DR/EC) 10 mg PO BEDTIME hydrochlorothiazide 12.5 mg tablet 12.5 mg PO DAILY montelukast 10 mg tablet 10 mg PO BEDTIME albuterol sulfate 90 mcg/actuation HFA aerosol inhaler 2 puff inhalation Q6H PRN (Reason: Wheezing) Spiriva with HandiHaler 18 mcg capsule, w/inhalation device 1 cap inhalation DAILY Rx Instructions: puncture 1 cap using device; one dose = 2 inhalations clopidogrel 75 mg tablet 75 mg PO DAILY melatonin 5 mg tablet 5 mg PO BEDTIME amitriptyline 25 mg tablet 25 mg PO BEDTIME folic acid 1 mg tablet 1 mg PO DAILY cyanocobalamin (vitamin B-12) 1,000 mcg tablet 1,000 mcg PO QAM ipratropium-albuterol 0.5 mg-3 mg(2.5 mg base)/3 mL solution for nebulization inhalation QID
[2022-07-02] MEDS: Albuterol Sulfate (0.083%) 2.5 MG/3 ML VIAL.NEB 10 MG INHALE (22:32)
[2022-07-02 22:34] VITALS: PULSE 63; RESP 18; O2SAT 96
[2022-07-02] MEDS: methylPREDNISolone Sod Succ 125 MG/2 ML VIAL IVPUSH (22:45)
[2022-07-02] MEDS: Magnesium Sulfate/H2O 2 GM/50 ML PIGGYBACK IV (22:45)
[2022-07-02 22:49] LABS: Appearance Urine Hazy; Color Urine Yellow; Glucose Urine UA Negative (Negative); Leukocyte Esterase Urine Large (3+) (Negative); Nitrite Urine Negative (Negative); PH 6.5 (5.0-9.0); UMIC TRIGGER UACC YES; Urine Blood Moderate (2+) (Negative); Urine Ketones Negative (Negative); Urine Protein Trace mg/dL (Neg-Trace)
--- NOTE | 2022-07-02 22:51 | PC.NURSE ---
IV established, medicated per APR. loss control technician at bedside for labs. CXR obtained. Continue to monitor.
[2022-07-02 23:04] LABS: Bacteria Urine 3+ (None Seen); Hyaline Casts Urine 0-2 /LPF (0-2); RBC Urine 0-2 /HPF (0-2); Squamous Epithelial Cell Urine >20 /HPF (0-2); UACC Culture Trigger YES; WBC Urine >50 /HPF (0-5)
[2022-07-02 23:07] LABS: Basophils Absolute Auto 0.1 X10*3/uL (0.0-0.2); Basophils Percent Auto 0.5 % (0-2); Eosinophils Absolute Auto 0.4 X10*3/uL (0.0-0.4); Eosinophils Percent Auto 4.2 % (0-4); Hematocrit 43.8 % (37.0-47.0); Hemoglobin 13.9 g/dl (12.0-16.0); Imm Gran Abs Auto 0.03 X10*3/uL (0.00-0.03); Imm Gran Pct Auto 0.3 % (0.0-0.4); Lymphocytes Absolute Auto 2.1 X10*3/uL (1.2-4.9); Lymphocytes Percent Auto 21.5 % (20-40); MANUAL DIFF FLAG NO; Mean Corpuscular HGB Conc 31.7 g/dl (31.0-35.0); Mean Corpuscular Hemoglobin 29.2 pg (27.0-33.0); Mean Platelet Volume 9.6 fL (9.4-12.3); Monocytes Absolute Auto 0.9 X10*3/uL (0.1-1.2); Monocytes Percent Auto 9.3 % (2-11); Neutrophils Absolute Auto 6.2 x10*3/uL (2.0-8.3); Neutrophils Percent Auto 64.2 % (45-73); Platelet Count 298 X10*3/uL (160-400); Red Blood Count 4.76 X10*6/uL (4.20-5.50); Red Cell Distribution Width 13.2 % (11.0-16.0); White Blood Count 9.7 X10*3/uL (4.8-10.8)
[2022-07-02 23:23] LABS: Alanine Aminotransferase 13 U/L (0-31); Alkaline Phosphatase 62 U/L (39-117); Anion Gap 14 (12-20); Aspartate Amino Transferase 17 U/L (5-31); Bilirubin Direct 0.1 mg/dL (0.0-0.5); Bilirubin Total 0.4 mg/dL (0.0-1.0); Blood Urea Nitrogen 19 mg/dL (9-16); Calcium 9.5 mg/dL (8.4-10.2); Carbon Dioxide 27 mmol/L (22-29); Chloride 104 mmol/L (96-108); Estimated Glomerular Filt Rate > 60; Glucose Random 102 mg/dL (60-115); Potassium 3.9 mmol/L (3.3-5.1); Sodium 141 mmol/L (135-145); Total Protein 6.5 g/dL (6.5-8.0)
[2022-07-02 23:29] LABS: Troponin-I High Sensitivity 13.7 ng/L (<3.5-17.0)
[2022-07-02 23:33] LABS: B Type Natriuretic Peptide 147 pg/mL (<100)
[2022-07-02 23:47] LABS: Influenza A PCR NEGATIVE (Negative); Influenza B PCR NEGATIVE (Negative); Resp Syncy Virus RNA Qual PCR NEGATIVE (Negative); SARS COV2 PCR INHOUSE NEGATIVE (Negative)
[2022-07-03] VITALS (9 sets, daily range): BP systolic 107–158; BP diastolic 65–97; PULSE 58–76; RESP 14–20; TEMP 36.5–37; O2SAT 92–97
[2022-07-03 00:10] LABS: VBG Base Excess 4.4 mmol/L; VBG HCO3 29 mmol/L (22-26); VBG pCO2 44 mmHg; VBG pH 7.42 (7.32-7.43); VBG pO2 102 mmHg
[2022-07-03 00:11] LABS: Venous Blood Gas Refer to POC result
[2022-07-03 00:17] LABS: Lactic Acid 0.9 mmol/L (0.5-2.0)
[2022-07-03] MEDS: cefTRIAXone sodium 1 GM in 0.9 % Sodium Chloride 50 ML IV (00:32)
--- NOTE | 2022-07-03 00:36 | PC.NURSE ---
Pt requesting IV to left hand to be removed due to discomfort. Pt extremely difficult to obtain IV access and bloodwork on. Second IV established, ABDavid bustos per APR. Continue to monitor.
--- NOTE | 2022-07-03 01:01 | P.HPHOSP_ITS ---
History of Present Illness Date of Service: 07/03/22 Chief Complaint: SOB 61-year-old female with past medical history of COPD/asthma, GERD, depression, diabetes, HLD, migraine headaches, MARY on CPAP, presents to the hospital with complaints of dose of breath, cough, for the past 2 days. Patient denies any chest pain, no palpitations, has chills with no fever, no urinary symptoms and no lower extremity edema. No numbness tingling or weakness. Patient reports significant wheezing. On arrival to the ED patient hemodynamically stable with tachypnea Labs are significant for WBC count 9.7 otherwise unremarkable, pH of 7.42, UA positive for leukocyte Estrace, WBC, and bacteria Chest x-ray negative Patient received multiple breathing treatments as well as steroids, remains tachypneic, wheezing, patient will be admitted for further management Review of Systems Review of Systems: Yes all other systems are reviewed and are negative [facility] Medical History Allergic rhinitis Aortic valve endocarditis Asthma Bronchitis COPD (chronic obstructive pulmonary disease) COPD (chronic obstructive pulmonary disease) COPD exacerbation Family history of GERD Fibromyalgia GERD (gastroesophageal reflux disease) History of arthritis History of depression History of enuresis History of urinary incontinence Hx of allergic rhinitis Hx of cardiac pacemaker Hx of coronary artery disease Hx of diabetes mellitus Hx of drug abuse Hx of essential hypertension Hx of hyperlipidemia Hx of migraines Hx of osteoarthritis Hx of pilonidal cyst MARY (obstructive sleep apnea) MARY on CPAP Overactive bladder Reactive airways dysfunction syndrome Rheumatoid arthritis Surgical History History of cystoscopy History of epidermal inclusion cyst excision History of hysterectomy History of surgical removal of pilonidal cyst Hx laparoscopic cholecystectomy Hx of aortic valve replacement Hx of bilateral cataract extraction Hx of colonoscopy Social History Household Members: None Housing: Apartment Do you presently have visiting nurse or other home services: No Alcohol intake: never Patient Tobacco Use Status: Refuse Tobacco use screen Tobacco use type: Cigarette Cigarettes Per Day: 2 Smoked in Last 30 Days: No Use of substances other than those prescribed or required for medical reasons: No Advance Directives: Yes Advance Directives on File: Yes Advance Directives Date on File: 09/13/22 Nutrition Risks: No Nutritional Risk service: No Current occupational status: unemployed and disabled Meds Allergies Allergy/AdvReac Type Severity Reaction Status Date / Time latex [LATEX] Allergy Severe DIFFICULTY Verified 06/20/22 11:42 BREATHING aspirin [Aspirin] Allergy Intermediate ITCHING, Verified 06/20/22 11:42 itchiness ciprofloxacin [From CIPRO] Allergy Intermediate DIAPHORESIS Verified 06/20/22 11:42 /PURITIS Penicillins [PENICILLINS] Allergy Unknown UNKNOWN Verified 06/20/22 11:42 HEMALATHA Inhibitors AdvReac Intermediate COUGH Verified 06/20/22 11:42 [HEMALATHA INHIBITORS] Home Medications Medication Instructions Recorded Confirmed Last Taken Type acetaminophen 650 mg 650 mg PO Q8H PRN pain 07/03/22 07/03/22 Unknown History tablet,extended release azithromycin 250 mg tablet 250 mg PO 3XW asthma 07/03/22 07/03/22 Unknown History bisacodyl 5 mg tablet,delayed 10 mg PO BEDTIME 07/03/22 07/03/22 Unknown History release calcium carbonate 600 mg-vitamin 1 tab PO QAM 07/03/22 07/03/22 Unknown History D3 10 mcg (400 unit) tablet fluticasone 500 mcg-salmeterol 50 1 ea inhalation BID 07/03/22 07/03/22 Unknown History mcg/dose blistr powdr for inhalation (Advair Diskus) gabapentin 100 mg capsule 100 mg PO TID 07/03/22 07/03/22 Unknown History hydrochlorothiazide 12.5 mg tablet 12.5 mg PO QAM 07/03/22 07/03/22 Unknown History ipratropium 0.5 mg-albuterol 3 mg 1 inhalation QID 07/03/22 Unknown History (2.5 mg base)/3 mL nebulization soln melatonin 5 mg tablet 5 mg PO BEDTIME PRN insomnia 07/03/22 07/03/22 Unknown History montelukast 10 mg tablet 10 mg PO QPM 07/03/22 07/03/22 Unknown History sertraline 50 mg tablet 50 mg PO QAM 07/03/22 07/03/22 Unknown History tiotropium bromide 18 mcg capsule 1 cap inhalation DAILY 07/03/22 07/03/22 Unknown History with inhalation device (Spiriva with HandiHaler) Physical Exam Vital Signs and Narrative: Vital Signs: Last Vital Signs Temp 98.9 F 07/02/22 21:35 Pulse 63 07/02/22 22:34 Resp 18 07/02/22 22:34 BP 168/79 H 07/02/22 21:35 Pulse Ox 96 07/02/22 21:35 O2 Del Method Room Air 07/02/22 21:35 BMI result Body Mass Index 30.5 Const: General: cooperative and no acute distress Orienta tion/consciousness: patient oriented x3 Eyes: General: appearance normal, both eyes and all related structures Resp: Other: Audible respiratory wheezing Effort & Inspection: normal respiratory effort Cardio: Rate: regular rate Rhythm: regular rhythm GI: Palpation (GI): Soft to palpation Auscultation: normal bowel sounds Skin: General skin exam: no rashes or lesions noted Neuro: General: patient oriented x3 Cognition (Neuro): normal cognition Extrem: General: Yes normal to inspection and Yes no pedal edema Results Labs 07/02/22 23:00 07/02/22 23:00 Labs: Laboratory Results - last 24 hr 07/02/22 07/02/22 07/02/22 22:40 23:00 23:00 MCV 92.0 MCH 29.2 MCHC 31.7 RDW 13.2 Plt Count 298 MPV 9.6 Immature Gran % (Auto) 0.3 Neut % (Auto) 64.2 Lymph % (Auto) 21.5 [place] % (Auto) 9.3 Eos % (Auto) 4.2 H Baso % (Auto) 0.5 Lymph # (Auto) 2.1 [place] # (Auto) 0.9 Eos # (Auto) 0.4 Baso # (Auto) 0.1 Abs Immat Gran (auto) 0.03 Absolute Neuts (auto) 6.2 Absolute Nucleated RBC 0.000 Nucleated RBC % (auto) 0.0 VBG pH VBG pCO2 VBG pO2 VBG HCO3 VBG O2 Saturation VBG Base Excess Anion Gap 14 Estim Creat Clear Calc 56.0 Estimated GFR > 60 Random Glucose 102 Lactic Acid Calcium 9.5 Magnesium 2.0 Total Bilirubin 0.4 Direct Bilirubin 0.1 AST 17 ALT 13 Alkaline Phosphatase 62 Troponin I High Sens B-Natriuretic Peptide Total Protein 6.5 Albumin 4.0 Urine Color Yellow Urine Appearance Hazy Urine pH 6.5 Ur Specific [place] 1.010 Urine Protein Trace Urine Glucose (UA) Negative Urine Ketones Negative Urine Blood Moderate (2+) H Urine Nitrite Negative Ur Leukocyte Esterase Large (3+) H Urine RBC 0-2 Urine WBC >50 H Ur Squamous Epith Cells >20 Urine Bacteria 3+ Hyaline Casts 0-2 Influenza Type A (PCR) Influenza Type B (PCR) RSV RNA Qual (PCR) SARS-CoV-2 RNA (RT-PCR) 07/02/22 07/02/22 07/02/22 23:00 23:00 23:07 MCV MCH MCHC RDW Plt Count MPV Immature Gran % (Auto) Neut % (Auto) Lymph % (Auto) [place] % (Auto) Eos % (Auto) Baso % (Auto) Lymph # (Auto) [place] # (Auto) Eos # (Auto) Baso # (Auto) Abs Immat Gran (auto) Absolute Neuts (auto) Absolute Nucleated RBC Nucleated RBC % (auto) VBG pH VBG pCO2 VBG pO2 VBG HCO3 VBG O2 Saturation VBG Base Excess Anion Gap Estim Creat Clear Calc Estimated GFR Random Glucose Lactic Acid Calcium Magnesium Total Bilirubin Direct Bilirubin AST ALT Alkaline Phosphatase Troponin I High Sens 13.7 B-Natriuretic Peptide 147 H Total Protein Albumin Urine Color Urine Appearance Urine pH Ur Specific [place] Urine Protein Urine Glucose (UA) Urine Ketones Urine Blood Urine Nitrite Ur Leukocyte Esterase Urine RBC Urine WBC Ur Squamous Epith Cells Urine Bacteria Hyaline Casts Influenza Type A (PCR) NEGATIVE Influenza Type B (PCR) NEGATIVE RSV RNA Qual (PCR) NEGATIVE SARS-CoV-2 RNA (RT-PCR) NEGATIVE 07/02/22 07/03/22 23:57 00:02 MCV MCH MCHC RDW Plt Count MPV Immature Gran % (Auto) Neut % (Auto) Lymph % (Auto) [place] % (Auto) Eos % (Auto) Baso % (Auto) Lymph # (Auto) [place] # (Auto) Eos # (Auto) Baso # (Auto) Abs Immat Gran (auto) Absolute Neuts (auto) Absolute Nucleated RBC Nucleated RBC % (auto) VBG pH 7.42 VBG pCO2 44 VBG pO2 102 VBG HCO3 29 H VBG O2 Saturation 100.0 VBG Base Excess 4.4 Anion Gap Estim Creat Clear Calc Estimated GFR Random Glucose Lactic Acid 0.9 Calcium Magnesium Total Bilirubin Direct Bilirubin AST ALT Alkaline Phosphatase Troponin I High Sens B-Natriuretic Peptide Total Protein Albumin Urine Color Urine Appearance Urine pH Ur Specific [place] Urine Protein Urine Glucose (UA) Urine Ketones Urine Blood Urine Nitrite Ur Leukocyte Esterase Urine RBC Urine WBC Ur Squamous Epith Cells Urine Bacteria Hyaline Casts Influenza Type A (PCR) Influenza Type B (PCR) RSV RNA Qual (PCR) SARS-CoV-2 RNA (RT-PCR) Imaging Radiologist's Impressions: Impressions Chest X-Ray 07/02/22 22:51 IMPRESSION: No acute abnormality of the chest. Assessment and Plan (1) Acute exacerbation of COPD with asthma: Status: Resolved (2) Acute UTI: Status: Acute Plan 61-year-old female with past medical history of COPD presents to the hospital with asthma, shortness of breath, found to have acute COPD exacerbation # acute COPD asthma exacerbation - significant wheezing, received multiple breathing treatments, as well as IV steroids and remains she dyspneic with significant wheezing - will treat with IV steroids, DuoNeb p.r.n. as well as scheduled - monitor respiratory status # acute UTI - positive UA - will treat with IV antibiotics - follow cultures # hypertension - stable - resume home antihypertensives # MARY on CPAP - continue CPAP at bedtime DVT prophylaxis: Lovenox Time Spent With Patient Time: Total time managing care of this patient today ____ minutes. Quality Stroke Does the patient have a stroke diagnosis?: No VTE Prior VTE?: No VTE Risk Level:: Medical - moderate - high VTE Device Contraindication: Treatment Not Indicated VTE Drug Contraindication: N/A - Med Ordered
--- NOTE | 2022-07-03 01:10 | PC.NURSE ---
This RN at bedside for med rec. Pt is unable to confirm any medications. Pt states they all come prepackaged. Pt does not have a list on her and states no family to call would know.
--- NOTE | 2022-07-03 04:14 | MHC.EDTECH ---
Brought patient a blanket.
[2022-07-03 07:02] LABS: Basophils Percent Auto 0.1 % (0-2); Eosinophils Percent Auto 0.1 % (0-4); Hematocrit 44.3 % (37.0-47.0); Hemoglobin 13.9 g/dl (12.0-16.0); Imm Gran Abs Auto 0.03 X10*3/uL (0.00-0.03); Imm Gran Pct Auto 0.4 % (0.0-0.4); Lymphocytes Absolute Auto 0.3 X10*3/uL (1.2-4.9); Lymphocytes Percent Auto 4.7 % (20-40); MANUAL DIFF FLAG SCAN; Mean Corpuscular HGB Conc 31.4 g/dl (31.0-35.0); Mean Corpuscular Hemoglobin 29.1 pg (27.0-33.0); Mean Corpuscular Volume 92.9 fL (80.0-98.0); Mean Platelet Volume 10.6 fL (9.4-12.3); Monocytes Absolute Auto 0.1 X10*3/uL (0.1-1.2); Monocytes Percent Auto 0.8 % (2-11); Neutrophils Absolute Auto 6.8 x10*3/uL (2.0-8.3); Neutrophils Percent Auto 93.9 % (45-73); Platelet Count 257 X10*3/uL (160-400); Red Blood Count 4.77 X10*6/uL (4.20-5.50); Red Cell Distribution Width 13.3 % (11.0-16.0); SCAN SMEAR FLAG 1; White Blood Count 7.3 X10*3/uL (4.8-10.8)
[2022-07-03 07:31] LABS: SLIDE REVIEW VERIFIED
[2022-07-03 07:44] LABS: Anion Gap 16 (12-20); Blood Urea Nitrogen 16 mg/dL (9-16); Carbon Dioxide 23 mmol/L (22-29); Chloride 106 mmol/L (96-108); Creatinine Clr Calc Pharmacy 64.5; Estimated Glomerular Filt Rate > 60; Glucose Random 159 mg/dL (60-115); Potassium 4.6 mmol/L (3.3-5.1); Sodium 140 mmol/L (135-145)
[2022-07-03 08:10] LABS: Glucose, Whole Blood 144 mg/dL (60-115)
--- NOTE | 2022-07-03 10:00 | PC.NURSE ---
pt is a/o x 4 no sob/agnes lungs - trev upper lobes slight exp wheezing, trev lower lobes - dimished. pt speaks in full sentences. heart sounds - regular. abd soft non-tender, bs + x 4 quads. no edema noted. pt aware of plan of care.
[2022-07-03] MEDS: methylPREDNISolone Sod Succ 40 MG/ML VIAL IVPUSH ×2 (10:05→20:39)
[2022-07-03] MEDS: Enoxaparin Sodium 40 MG/0.4 ML SYRINGE SUBCUT (10:05)
[2022-07-03] MEDS: 0.9 % Sodium Chloride Flush 3 ML SYRINGE IVFLUSH ×2 (10:18→16:42)
--- NOTE | 2022-07-03 10:25 | PHA.MEDREC ---
Pharmacy Consult ? Medication Reconciliation Pharmacy has completed the medication reconciliation.Pt uses med box program so claim history was used to update med rec done by overnight nursing. Found 5 meds missing from list.
[2022-07-03] MEDS: Sertraline HCL 50 MG TABLET PO (11:46)
[2022-07-03] MEDS: hydroCHLOROthiazide 12.5 MG TABLET PO (11:46)
[2022-07-03 11:47] LABS: Glucose, Whole Blood 124 mg/dL (60-115)
[2022-07-03] MEDS: Acetaminophen 325 MG TABLET 650 MG PO ×2 (11:49→20:42)
[2022-07-03] MEDS: Gabapentin 100 MG CAPSULE PO ×3 (11:50→20:41)
--- NOTE | 2022-07-03 13:39 | MHC.CM.ED ---
PT SSO FROM HOME W/ [facility] 3X/DAILY. PT D/C PLAN TO RETURN HOME W/ PREVIOUS SERVICES ONCE MED CLEARED. TRANSPORT VIA BLS/[facility]. HCP ON FILE AND ACCURATE. PCP: ALLYSON MASON. COVID VAX X 2 MODERNA.
--- NOTE | 2022-07-03 14:00 | PC.NURSE ---
iv to pt's l hand d/c'd, pt states its hurting me .
[2022-07-03] MEDS: Albuterol/Iprat 2.5/0.5MG 3 ML AMPUL.NEB INHALE ×2 (16:27→20:18)
--- NOTE | 2022-07-03 16:55 | PC.NURSE ---
rn to rn report given to dariela. pt aware of plan of care.
[2022-07-03 20:04] LABS: Glucose, Whole Blood 187 mg/dL (60-115)
--- NOTE | 2022-07-03 20:26 | PC.RT ---
Pt states they do not use a sleep machine at home; pt states MD was supposed to put a prescription in for O2
[2022-07-03] MEDS: Montelukast Sodium 10 MG TABLET PO (20:41)
[2022-07-03] MEDS: bisacodyL 5 MG TABLET.DR 10 MG PO (20:41)
[2022-07-03] MEDS: Melatonin 3 MG TABLET 6 MG PO (20:42)
--- NOTE | 2022-07-03 22:25 | PC.NURSE ---
This rn took over patient's care at 1900, patient alert and oriented x3, mainly Colombian speaking. Reports mild headache, vss, l/s with expiratory wheezes, intermittent dry cough, abd soft and nontender. Patient ambulated to bathroom independently, bedtime medications administered, call basilio within reach, all needs met at this time.
[2022-07-04] MEDS: cefTRIAXone sodium 1 GM in 0.9 % Sodium Chloride 50 ML IV (00:27)
[2022-07-04] MEDS: 0.9 % Sodium Chloride Flush 3 ML SYRINGE IVFLUSH ×2 (00:28→08:54)
--- NOTE | 2022-07-04 01:53 | PC.NURSE ---
Assumed care at 2300. Pt was seen in the room. Sleeping. Wakes up easily. NO complaints. Ambulatory.
[2022-07-04 02:00] VITALS: BP 134/84; PULSE 75; RESP 16; TEMP 36.7; O2SAT 96
[2022-07-04 06:00] VITALS: BP 123/73; PULSE 64; RESP 16; TEMP 36.8; O2SAT 94
[2022-07-04 08:13] VITALS: BP 137/70; PULSE 83; RESP 12; TEMP 36.2; O2SAT 95
--- NOTE | 2022-07-04 08:35 | MHC.EDTECH ---
patient wash and clean , bed clean. Patient is ambulation around.
[2022-07-04] MEDS: Albuterol/Iprat 2.5/0.5MG 3 ML AMPUL.NEB INHALE (08:39)
[2022-07-04] MEDS: Fluticasone/Vilanterol 200/25 BLST.W.DEV 1 PUFF INHALE (08:39)
[2022-07-04 08:42] VITALS: PULSE 66; RESP 16; O2SAT 99
[2022-07-04] MEDS: Sertraline HCL 50 MG TABLET PO (08:53)
[2022-07-04] MEDS: hydroCHLOROthiazide 12.5 MG TABLET PO (08:53)
[2022-07-04] MEDS: Gabapentin 100 MG CAPSULE PO (08:53)
[2022-07-04] MEDS: Calcium + Vitamin D 250 MG TABLET 500 MG PO (08:53)
[2022-07-04] MEDS: Enoxaparin Sodium 40 MG/0.4 ML SYRINGE SUBCUT (08:53)
[2022-07-04] MEDS: methylPREDNISolone Sod Succ 40 MG/ML VIAL IVPUSH (08:53)
--- NOTE | 2022-07-04 09:54 | P.DS_ITS ---
DS: Providers Provider Date of Service: 07/04/22 Date of admission: 07/03/22 00:59 Primary care physician: Ting Hampton MD DS: Diagnosis Discharge Diagnosis (1) Acute exacerbation of COPD with asthma: Status: Resolved (2) Acute UTI: Status: Acute DS: Summary Hospital Course Hospital Course: HP as per admitting provider 61-year-old female with past medical history of COPD/asthma, GERD, depression, diabetes, HLD, migraine headaches, MARY on CPAP, presents to the hospital with complaints of dose of breath, cough, for the past 2 days.? Patient denies any chest pain, no palpitations, has chills with no fever, no urinary symptoms and no lower extremity edema.? No numbness tingling or weakness.? Patient reports significant wheezing.? On arrival to the ED patient hemodynamically stable with tachypnea Labs are sig nificant for WBC count 9.7 otherwise unremarkable, pH of 7.42, UA positive for leukocyte Estrace, WBC, and bacteria Chest x-ray negative Patient received multiple breathing treatments as well as steroids, remains tachypneic, wheezing, patient will be admitted for further management . acute COPD asthma exacerbation. significant wheezing, received multiple breathing treatments, as well as IV steroids and remains she dyspneic with significant wheezing. Treated with IV steroids and scheduled DuoNebs. UTI. UA positive from 07/02/2022. Will treat with 3 days of Ceftin hypertension. Continue medications Obstructive sleep apnea. Continue CPAP at home Obesity. BMI 30.5. Discussed importance of weight management as this may be contributing to worsening of other comorbidities Time Spent with Patient Time attestation: Total time managing care of this patient today ____ minutes. Discharge coordination time: Greater than 30 minutes Quality: Safe Use of Opioids Does Pt have an Active Cancer Diagnosis on the Problem List?: No Quality: Stroke Does the patient have a stroke diagnosis?: No Physical Exam Vital Signs: Vital Signs: Last Vital Signs Temp 97.2 F 07/04/22 08:13 Pulse 66 07/04/22 08:42 Resp 16 07/04/22 08:42 BP 137/70 07/04/22 08:13 Pulse Ox 95 07/04/22 08:13 O2 Del Method Room Air 07/04/22 06:00 BMI result Body Mass Index 30.5 Appearing in no acute distress head is normocephalic atraumatic eyes pupils are PERRLA sclera is anicteric mouth throat mucous membranes are intact and moist neck is supple no lymphadenopathy, no JVD noted lung sounds are clear to auscultation heart regular rate rhythm, clear S1, S2 positive bowel sounds, abdomen is soft, nontender neuro patient is alert x3, no focal deficits DS: Data Data Completed and Pending Labs on day of discharge: Laboratory Results - last 24 hr 07/03/22 07/03/22 11:36 19:51 POC Glucose 124 H 187 H Preliminary micro results at discharge 07/02/22 23:57 Blood Culture - Preliminary Blood - Venous No growth after 24 hours. 07/02/22 23:57 Blood Culture - Preliminary Blood - Venous No growth after 24 hours. Discharge Plan Discharge Anticipated Discharge Date/Time: 07/04/22 09:52 Patient Disposition: Home, Self-Care Discharge Diagnosis: Acute COPD/asthma exacerbation UTI Referrals: Ting Packer MD [Primary Care Provider] - 1 Week Discharge Medications: New cefuroxime axetil 500 mg tablet 500 mg PO BID Qty: 60 0RF prednisone 10 mg tablet 40 mg PO DIRECTED Qty: 16 0RF Rx Instructions: see taper instructions Continued ipratropium-albuterol 0.5 mg-3 mg(2.5 mg base)/3 mL solution for nebulization 1 inhalation QID azithromycin 250 mg tablet 250 mg PO 3XW acetaminophen 650 mg tablet extended release 650 mg PO Q8H PRN (Reason: pain) fluticasone propion-salmeterol [Advair Diskus] 500-50 mcg/dose blister with device 1 ea INHALATION BID montelukast 10 mg tablet 10 mg PO QPM bisacodyl 5 mg tablet,delayed release (DR/EC) 10 mg PO BEDTIME gabapentin 100 mg capsule 100 mg PO TID sertraline 50 mg tablet 50 mg PO QAM Spiriva with HandiHaler 18 mcg capsule, w/inhalation device 1 cap inhalation DAILY calcium carbonate-vitamin D3 600 mg-10 mcg (400 unit) tablet 1 tab PO QAM hydrochlorothiazide 12.5 mg tablet 12.5 mg PO QAM melatonin 5 mg tablet 5 mg PO BEDTIME PRN (Reason: insomnia) albuterol sulfate [Ventolin HFA] 90 mcg/actuation HFA aerosol inhaler 2 puff inhalation Q4H PRN (Reason: wheezing) clopidogrel 75 mg tablet 75 mg PO DAILY amitriptyline 25 mg tablet 25 mg PO BEDTIME folic acid 1 mg tablet 1 mg PO DAILY cyanocobalamin (vitamin B-12) 1,000 mcg tablet 1,000 mcg PO QAM Discharge Orders: Discharge Order (Routine); Ordered 07/04/22 Ordered By: Winifred Romero Diet: Advance to usual diet Activity on Discharge: As tolerated Stand Alone Forms: Patient Portal Discharge page Care Plan Goals: Complete resolution of symptoms Health Concerns: Acute COPD/asthma exacerbation UTI Plan of Treatment: Follow-up with primary care provider as needed Take all medications as prescribed Assessment: See discharge summary
--- NOTE | 2022-07-04 11:19 | PC.NURSE ---
nad, no complaints, steady gait, denies sob, wants to go home, awaiting re eval from hospitalist, dressed and ready to go
== END 2022-07-04 12:30 | disposition home or self-care (01) | DRG 140 ==
LOC: HO.ED 23:53 → HO.EDOVER 07-03 01:05 → HO.S3 07-03 16:36 → HO.EDOVER 07-03 17:17
PROVIDERS: Internal Medicine; Admitting Provider Internal Medicine; Emergency Provider Emergency Medicine Emergency Medical Services; PCP Internal Medicine; Visit Provider Nurse Practitioner Acute Care
DX: J44.1 Chronic obstructive pulmonary disease with (acute) exacerbation (principal); J45.901 Unspecified asthma with (acute) exacerbation; G47.33 Obstructive sleep apnea (adult) (pediatric); N39.0 Urinary tract infection, site not specified; M79.7 Fibromyalgia; K21.9 Gastro-esophageal reflux disease without esophagitis; I10 Essential (primary) hypertension; E66.9 Obesity, unspecified; Z68.30 Body mass index [BMI] 30.0-30.9, adult; M06.9 Rheumatoid arthritis, unspecified; Z20.822 Contact with and (suspected) exposure to COVID-19; Z95.2 Presence of prosthetic heart valve; Z91.040 Latex allergy status; Z88.0 Allergy status to penicillin; Z88.1 Allergy status to other antibiotic agents; Z88.6 Allergy status to analgesic agent; Z79.02 Long term (current) use of antithrombotics/antiplatelets; Z79.51 Long term (current) use of inhaled steroids; Z79.52 Long term (current) use of systemic steroids; Z79.84 Long term (current) use of oral hypoglycemic drugs; Z79.899 Other long term (current) drug therapy
CPT/HCPCS: 0241U; 36415; 71045; 80048; 80076; 81001; 82803; 82947; 83605; 83735; 83880; 84484; 85025; 87040; 87086; 93005; 94640; 99221; 99285; J0696; J1650; J2920; J2930; J3475

== ENCOUNTER 2022-07-18 11:00 | Emergency (ER) | payer MEDICAID, SELFPAY ==
--- NOTE | ~2022-07-18 | XR_ITS ---
EXAMINATION: XR CHEST CLINICAL INFORMATION: Shortness of breath COMPARISON: Previous chest x-ray 07/02/2022 TECHNIQUE: Frontal view of the chest was obtained. FINDINGS: The cardiac and mediastinal contours are stable. There is a right subclavian single chamber pacemaker that appears unchanged. There are median sternotomy wires. The lungs are clear. No pleural effusion or pneumothorax. No acute bone abnormality. XR/XR chest 1V IMPRESSION: No evidence for acute disease in the chest.
[2022-07-18 11:07] VITALS: BP 142/80; BP 145/81; PULSE 60; PULSE 65; RESP 20; TEMP 36.8; O2SAT 96; O2SAT 98; BMI 29.3
--- NOTE | 2022-07-18 11:10 | ED_ITS ---
HPI - Asthma General Chief Complaint: Asthma Stated Complaint: DIFF BREATHING,COUGH Time Seen by Provider: 07/18/22 11:31 History of Present Illness HPI Narrative: patient with history of asthma COPD went to her primary doctor today because she has been wheezing and feeling her asthma worse Her complaint is feeling mild shortness of breath She also complains of last night when she was using frequent nebs because she was wheezing a lot at home she felt a twinge of brief chest pain which has happened before with her flares of asthma and COPD, She had no diaphoresis, pain was not related to exertion, there was no vomiting, pain was very brief, there was no fainting or feeling faint She denies any leg pain or swelling no recent illness no fever no new cough Related Data Home Medications Medication Instructions Recorded Confirmed acetaminophen 650 mg 650 mg PO Q8H PRN pain 07/03/22 07/03/22 tablet,extended release albuterol sulfate 90 mcg/actuation 2 puff inhalation Q4H PRN wheezing 07/03/22 07/03/22 aerosol inhaler (Ventolin HFA) amitriptyline 25 mg tablet 25 mg PO BEDTIME 07/03/22 07/03/22 azithromycin 250 mg tablet 250 mg PO 3XW asthma 07/03/22 07/03/22 bisacodyl 5 mg tablet,delayed 10 mg PO BEDTIME 07/03/22 07/03/22 release calcium carbonate 600 mg-vitamin 1 tab PO QAM 07/03/22 07/03/22 D3 10 mcg (400 unit) tablet clopidogrel 75 mg tablet 75 mg PO DAILY 07/03/22 07/03/22 cyanocobalamin (vitamin B-12) 1,000 mcg PO QAM 07/03/22 07/03/22 1,000 mcg tablet fluticasone 500 mcg-salmeterol 50 1 ea inhalation BID 07/03/22 07/03/22 mcg/dose blistr powdr for inhalation (Advair Diskus) folic acid 1 mg tablet 1 mg PO DAILY 07/03/22 07/03/22 gabapentin 100 mg capsule 100 mg PO TID 07/03/22 07/03/22 hydrochlorothiazide 12.5 mg tablet 12.5 mg PO QAM 07/03/22 07/03/22 ipratropium 0.5 mg-albuterol 3 mg 1 inhalation QID 07/03/22 (2.5 mg base)/3 mL nebulization soln melatonin 5 mg tablet 5 mg PO BEDTIME PRN insomnia 07/03/22 07/03/22 montelukast 10 mg tablet 10 mg PO QPM 07/03/22 07/03/22 sertraline 50 mg tablet 50 mg PO QAM 07/03/22 07/03/22 tiotropium bromide 18 mcg capsule 1 cap inhalation DAILY 07/03/22 07/03/22 with inhalation device (Spiriva with HandiHaler) Previous Rx's Medication Instructions Recorded cefuroxime axetil 500 mg tablet 500 mg PO BID #60 tabs 07/04/22 prednisone 10 mg tablet 40 mg PO DIRECTED #16 tabs 07/04/22 albuterol sulfate 2.5 mg/3 mL 2.5 mg (3 mL) inhalation Q4-6H PRN 07/18/22 (0.083 %) solution for nebulization shortness of breath or wheezing #90 mL albuterol sulfate 90 mcg/actuation 2 puff inhalation Q4-6H PRN 07/18/22 aerosol inhaler shortness of breath or wheezing #8.5 grams prednisone 20 mg tablet 60 mg PO DAILY 5 days #15 tabs 07/18/22 Allergies Allergy/AdvReac Type Severity Reaction Status Date / Time latex [LATEX] Allergy Severe DIFFICULTY Verified 06/20/22 11:42 BREATHING aspirin [Aspirin] Allergy Intermediate ITCHING, Verified 06/20/22 11:42 itchiness ciprofloxacin [From CIPRO] Allergy Intermediate DIAPHORESIS Verified 06/20/22 11:42 /PURITIS Penicillins [PENICILLINS] Allergy Unknown UNKNOWN Verified 06/20/22 11:42 HEMALATHA Inhibitors AdvReac Intermediate COUGH Verified 06/20/22 11:42 [HEMALATHA INHIBITORS] [facility] Past Medical History Source: nursing notes reviewed Medical History Allergic rhinitis Aortic valve endocarditis Asthma Bronchitis COPD (chronic obstructive pulmonary disease) COPD (chronic obstructive pulmonary disease) COPD exacerbation Family history of GERD Fibromyalgia GERD (gastroesophageal reflux disease) History of arthritis History of depression History of enuresis History of urinary incontinence Hx of allergic rhinitis Hx of cardiac pacemaker Hx of coronary artery disease Hx of diabetes mellitus Hx of drug abuse Hx of essential hypertension Hx of hyperlipidemia Hx of migraines Hx of osteoarthritis Hx of pilonidal cyst MARY (obstructive sleep apnea) MARY on CPAP Overactive bladder Reactive airways dysfunction syndrome Rheumatoid arthritis Surgical History History of cystoscopy History of epidermal inclusion cyst excision History of hysterectomy History of surgical removal of pilonidal cyst Hx laparoscopic cholecystectomy Hx of aortic valve replacement Hx of bilateral cataract extraction Hx of colonoscopy Social History Social History Household Members: None Housing: Apartment Do you presently have visiting nurse or other home services: No Alcohol intake: never Patient Tobacco Use Status: Refuse Tobacco use screen Tobacco use type: Cigarette Cigarettes Per Day: 2 Smoked in Last 30 Days: No Use of substances other than those prescribed or required for medical reasons: No Advance Directives: Yes Advance Directives on File: Yes Advance Directives Date on File: 11/08/21 Patient : No service: No Current occupational status: unemployed and disabled Physical Exam Vital Signs: Vital Signs: Last Vital Signs Temp 97.8 F 07/18/22 13:31 Pulse 89 07/18/22 13:31 Resp 18 07/18/22 13:31 BP 125/81 07/18/22 13:31 Pulse Ox 98 07/18/22 13:31 O2 Del Method Room Air 07/18/22 13:31 BMI result Body Mass Index 29.3 general appearance is no acute distress, mildly short of breath but able to speak full sentences, come and cooperative The pharynx is clear Neck is supple no JVD no stridor The chest had wheezing and diminished breath sounds bilaterally The heart no murmur auscultated Abdomen soft nontender The extremities no calf tenderness or swelling, no pedal edema Skin no rash Extremities From motion x4 Course Course Course Narrative: RME: 61-year-old female with past medical history of COPD/asthma, GERD, depression, diabetes, HLD, migraine headaches, MARY on CPAP, recently discharged from our facility on 07/04/22 s/p UTI and asthma/COPD exacerbation presents to the ED via EMS from PCP office c/o worsening SOB/asthma exacerbation x last night. denies CP inspiratory & expiratory wheeze noted, satting 96% on RA, walking into triage EKG, Labs, CXR, COVID/FLU, Albuterol inhaler ordered Full HPI, ROS and PE to be performed by primary ED provider. patient was treated with albuterol nebulizer for 1 hour with very good improvement she was no longer short of breath Repeat exam the lungs are clear with no wheezing, she speaks full sentences, she was ambulated around the ER without becoming short of breath and walk easily Chest x-ray was done and it was negative for pneumonia or CHF, no acute cardiac disease, it did identify the pacemaker EKG showed paced rhythm with occasional PVC rate of 65 ventricular, no acute ischemic changes Troponin was 7.4, the brief episode of Medications Administered Discontinued Medications Generic Name Dose Route Start Last Admin Trade Name Freq PRN Reason Stop Dose Admin Albuterol Sulfate 4 puff 07/18/22 11:12 07/18/22 11:43 Albuterol Sulfate 90 Mcg 8 Gm Inhaler INHALE 07/18/22 11:13 4 puff ONCE ONE Administration Albuterol Sulfate 5 mg/ 0 mg 07/18/22 11:48 07/18/22 11:58 Albuterol/Ipratropium 3 ml INHALE 07/18/22 11:49 2.5 each ONCE ONE Administration Prednisone 60 mg 07/18/22 13:58 07/18/22 14:29 Prednisone 20 Mg Tablet PO 07/18/22 13:59 60 mg ONCE ONE Administration Medical Decision Making Lab Data MDM Lab Attestation statement: I reviewed the patient's lab results. 07/18/22 14:01 07/18/22 14:01 Labs: Lab Results 07/18/22 07/18/22 07/18/22 Range/Units 11:29 11:29 12:26 WBC (4.8-10.8) X10*3/uL RBC (4.20-5.50) X10*6/uL Hgb (12.0-16.0) g/dl Hct (37.0-47.0) % MCV (80.0-98.0) fL MCH (27.0-33.0) pg MCHC (31.0-35.0) g/dl RDW (11.0-16.0) % Plt Count (160-400) X10*3/uL MPV Immature Gran % (Auto) (0.0-0.4) % Neut % (Auto) (45-73) % Lymph % (Auto) (20-40) % Dougherty % (Auto) (2-11) % Eos % (Auto) (0-4) % Baso % (Auto) (0-2) % Lymph # (Auto) (1.2-4.9) X10*3/uL Dougherty # (Auto) (0.1-1.2) X10*3/uL Eos # (Auto) (0.0-0.4) X10*3/uL Baso # (Auto) (0.0-0.2) X10*3/uL Abs Immat Gran (auto) (0.00-0.03) X10*3/uL Absolute Neuts (auto) (2.0-8.3) x10*3/uL Absolute Nucleated RBC (0.0-0.012) X10*3/uL Nucleated RBC % (auto) (0.0-0.2) /100WBC Smear Tech's Comments PT (10.0-13.1) SEC INR (0.9-1.1) Sodium (135-145) mmol/L Potassium (3.3-5.1) mmol/L Chloride (96-108) mmol/L Carbon Dioxide (22-29) mmol/L Anion Gap (12-20) BUN (9-16) mg/dL Creatinine (0.5-1.4) mg/dL Estim Creat Clear Calc Estimated GFR POC Glucose 119 H (60-115) mg/dL Random Glucose (60-115) mg/dL Calcium (8.4-10.2) mg/dL Total Bilirubin (0.0-1.0) mg/dL Direct Bilirubin (0.0-0.5) mg/dL AST (5-31) U/L ALT (0-31) U/L Alkaline Phosphatase (39-117) U/L Troponin I High Sens (<3.5-17.0) ng/L B-Natriuretic Peptide (<100) pg/mL Total Protein (6.5-8.0) g/dL Albumin (3.5-5.0) g/dL COVID-19 (HOLLIS) Negative (Negative) COVID-19 Clin Com See Note Influenza Type A (GHADA) Negative (Negative) Influenza Type B (GHADA) Negative (Negative) Influenza A & B Note See Note 07/18/22 07/18/22 07/18/22 Range/Units 14:01 14:01 14:01 WBC 8.8 (4.8-10.8) X10*3/uL RBC 4.98 (4.20-5.50) X10*6/uL Hgb 14.7 (12.0-16.0) g/dl Hct 45.7 (37.0-47.0) % MCV 91.8 (80.0-98.0) fL MCH 29.5 (27.0-33.0) pg MCHC 32.2 (31.0-35.0) g/dl RDW 13.5 (11.0-16.0) % Plt Count 286 (160-400) X10*3/uL MPV Not Reportable Immature Gran % (Auto) 0.7 H (0.0-0.4) % Neut % (Auto) 86.2 H (45-73) % Lymph % (Auto) 9.3 L (20-40) % Dougherty % (Auto) 3.1 (2-11) % Eos % (Auto) 0.5 (0-4) % Baso % (Auto) 0.2 (0-2) % Lymph # (Auto) 0.8 L (1.2-4.9) X10*3/uL Dougherty # (Auto) 0.3 (0.1-1.2) X10*3/uL Eos # (Auto) 0.0 (0.0-0.4) X10*3/uL Baso # (Auto) 0.0 (0.0-0.2) X10*3/uL Abs Immat Gran (auto) 0.06 H (0.00-0.03) X10*3/uL Absolute Neuts (auto) 7.6 (2.0-8.3) x10*3/uL Absolute Nucleated RBC 0.000 (0.0-0.012) X10*3/uL Nucleated RBC % (auto) 0.0 (0.0-0.2) /100WBC Smear Tech's Comments VERIFIED PT 9.9 L (10.0-13.1) SEC INR 0.9 (0.9-1.1) Sodium 140 (135-145) mmol/L Potassium 4.1 (3.3-5.1) mmol/L Chloride 104 (96-108) mmol/L Carbon Dioxide 26 (22-29) mmol/L Anion Gap 14 (12-20) BUN 20 H (9-16) mg/dL Creatinine 0.81 (0.5-1.4) mg/dL Estim Creat Clear Calc 61.6 Estimated GFR > 60 POC Glucose (60-115) mg/dL Random Glucose 165 H (60-115) mg/dL Calcium 10.0 D (8.4-10.2) mg/dL Total Bilirubin 0.5 (0.0-1.0) mg/dL Direct Bilirubin 0.1 (0.0-0.5) mg/dL AST 18 (5-31) U/L ALT 20 (0-31) U/L Alkaline Phosphatase 60 (39-117) U/L Troponin I High Sens (<3.5-17.0) ng/L B-Natriuretic Peptide (<100) pg/mL Total Protein 6.8 (6.5-8.0) g/dL Albumin 4.0 (3.5-5.0) g/dL COVID-19 (HOLLIS) (Negative) COVID-19 Clin Com Influenza Type A (GHADA) (Negative) Influenza Type B (GHADA) (Negative) Influenza A & B Note 07/18/22 07/18/22 Range/Units 14:01 14:01 WBC (4.8-10.8) X10*3/uL RBC (4.20-5.50) X10*6/uL Hgb (12.0-16.0) g/dl Hct (37.0-47.0) % MCV (80.0-98.0) fL MCH (27.0-33.0) pg MCHC (31.0-35.0) g/dl RDW (11.0-16.0) % Plt Count (160-400) X10*3/uL MPV Immature Gran % (Auto) (0.0-0.4) % Neut % (Auto) (45-73) % Lymph % (Auto) (20-40) % Dougherty % (Auto) (2-11) % Eos % (Auto) (0-4) % Baso % (Auto) (0-2) % Lymph # (Auto) (1.2-4.9) X10*3/uL Dougherty # (Auto) (0.1-1.2) X10*3/uL Eos # (Auto) (0.0-0.4) X10*3/uL Baso # (Auto) (0.0-0.2) X10*3/uL Abs Immat Gran (auto) (0.00-0.03) X10*3/uL Absolute Neuts (auto) (2.0-8.3) x10*3/uL Absolute Nucleated RBC (0.0-0.012) X10*3/uL Nucleated RBC % (auto) (0.0-0.2) /100WBC Smear Tech's Comments PT (10.0-13.1) SEC INR (0.9-1.1) Sodium (135-145) mmol/L Potassium (3.3-5.1) mmol/L Chloride (96-108) mmol/L Carbon Dioxide (22-29) mmol/L Anion Gap (12-20) BUN (9-16) mg/dL Creatinine (0.5-1.4) mg/dL Estim Creat Clear Calc Estimated GFR POC Glucose (60-115) mg/dL Random Glucose (60-115) mg/dL Calcium (8.4-10.2) mg/dL Total Bilirubin (0.0-1.0) mg/dL Direct Bilirubin (0.0-0.5) mg/dL AST (5-31) U/L ALT (0-31) U/L Alkaline Phosphatase (39-117) U/L Troponin I High Sens 7.4 (<3.5-17.0) ng/L B-Natriuretic Peptide 85 (<100) pg/mL Total Protein (6.5-8.0) g/dL Albumin (3.5-5.0) g/dL COVID-19 (HOLLIS) (Negative) COVID-19 Clin Com Influenza Type A (GHADA) (Negative) Influenza Type B (GHADA) (Negative) Influenza A & B Note Discharge Plan Discharge Clinical Impression: Asthma, COPD (chronic obstructive pulmonary disease) Patient Disposition: Home, Self-Care Additional Instructions: we treated for COPD/asthma with prednisone and albuterol and you had very good improvement EKG and troponin blood test did not show signs of heart attack and the brief episode of pain during her asthma attack is likely from asthma /COPD Best plan is follow closely with her petrologist and primary doctor Return to ER any time for difficulty breathing or chest pain or any worse condition or any concerns Prescriptions: New prednisone 20 mg tablet 60 mg PO DAILY 5 Days Qty: 15 0RF albuterol sulfate 90 mcg/actuation HFA aerosol inhaler 2 puff inhalation Q4-6H PRN (Reason: shortness of breath or wheezing) Qty: 8.5 0RF albuterol sulfate 2.5 mg /3 mL (0.083 %) solution for nebulization 2.5 mg inhalation Q4-6H PRN (Reason: shortness of breath or wheezing) Qty: 90 0RF No Action ipratropium-albuterol 0.5 mg-3 mg(2.5 mg base)/3 mL solution for nebulization 1 inhalation QID azithromycin 250 mg tablet 250 mg PO 3XW acetaminophen 650 mg tablet extended release 650 mg PO Q8H PRN (Reason: pain) fluticasone propion-salmeterol [Advair Diskus] 500-50 mcg/dose blister with device 1 ea INHALATION BID montelukast 10 mg tablet 10 mg PO QPM bisacodyl 5 mg tablet,delayed release (DR/EC) 10 mg PO BEDTIME gabapentin 100 mg capsule 100 mg PO TID sertraline 50 mg tablet 50 mg PO QAM Spiriva with HandiHaler 18 mcg capsule, w/inhalation device 1 cap inhalation DAILY calcium carbonate-vitamin D3 600 mg-10 mcg (400 unit) tablet 1 tab PO QAM hydrochlorothiazide 12.5 mg tablet 12.5 mg PO QAM melatonin 5 mg tablet 5 mg PO BEDTIME PRN (Reason: insomnia) albuterol sulfate [Ventolin HFA] 90 mcg/actuation HFA aerosol inhaler 2 puff inhalation Q4H PRN (Reason: wheezing) clopidogrel 75 mg tablet 75 mg PO DAILY amitriptyline 25 mg tablet 25 mg PO BEDTIME folic acid 1 mg tablet 1 mg PO DAILY cyanocobalamin (vitamin B-12) 1,000 mcg tablet 1,000 mcg PO QAM cefuroxime axetil 500 mg tablet 500 mg PO BID Qty: 60 0RF prednisone 10 mg tablet 40 mg PO DIRECTED Qty: 16 0RF Rx Instructions: see taper instructions Interventions: ED Discharge Assessment Last Done: 07/18/22 14:58 Discharge Date/Time: 07/18/22 15:06
--- NOTE | 2022-07-18 11:12 | ECG_ITS ---
Test Reason : sob Blood Pressure : / mmHG Vent. Rate : 065 BPM Atrial Rate : 060 BPM P-R Int : 000 ms QRS Dur : 146 ms QT Int : 468 ms P-R-T Axes : 000 -78 092 degrees QTc Int : 486 ms Ventricular-paced rhythm with occasional Premature ventricular complexes Abnormal ECG When compared with ECG of 02-JUL-2022 22:31, Premature ventricular complexes are now Present Vent. rate has increased BY 4 BPM Referred By: Ewelina Mathew Electronically Signed By:RANDI EMERSON
[2022-07-18 11:42] VITALS: BP 148/82; PULSE 78; RESP 22; TEMP 36.8; O2SAT 96
[2022-07-18] MEDS: Albuterol Sulfate 90 MCG 8 GM INHALER 4 PUFF INHALE (11:43)
[2022-07-18 11:44] VITALS: PULSE 59; RESP 18; O2SAT 95
[2022-07-18 12:00] LABS: COVID-19 Test Negative (Negative); IDNOW Serial# 08D9AD1C; IDNOW Serial# BCCEAD1C; Influenza A Negative (Negative); Influenza B2 Negative (Negative)
[2022-07-18 12:02] VITALS: PULSE 65; RESP 18; O2SAT 96
[2022-07-18 12:30] LABS: Glucose, Whole Blood 119 mg/dL (60-115)
[2022-07-18 13:31] VITALS: BP 125/81; PULSE 89; RESP 18; TEMP 36.6; O2SAT 98
[2022-07-18 14:18] LABS: INTERNATIONAL NORM RATIO 0.9 (0.9-1.1); Prothrombin Time 9.9 SEC (10.0-13.1)
[2022-07-18 14:26] LABS: Alanine Aminotransferase 20 U/L (0-31); Alkaline Phosphatase 60 U/L (39-117); Anion Gap 14 (12-20); Aspartate Amino Transferase 18 U/L (5-31); Basophils Percent Auto 0.2 % (0-2); Bilirubin Direct 0.1 mg/dL (0.0-0.5); Bilirubin Total 0.5 mg/dL (0.0-1.0); Blood Urea Nitrogen 20 mg/dL (9-16); Carbon Dioxide 26 mmol/L (22-29); Chloride 104 mmol/L (96-108); Creatinine Clr Calc Pharmacy 61.6; Eosinophils Percent Auto 0.5 % (0-4); Estimated Glomerular Filt Rate > 60; Glucose Random 165 mg/dL (60-115); Hematocrit 45.7 % (37.0-47.0); Hemoglobin 14.7 g/dl (12.0-16.0); Imm Gran Abs Auto 0.06 X10*3/uL (0.00-0.03); Imm Gran Pct Auto 0.7 % (0.0-0.4); Lymphocytes Absolute Auto 0.8 X10*3/uL (1.2-4.9); Lymphocytes Percent Auto 9.3 % (20-40); MANUAL DIFF FLAG SCAN; Mean Corpuscular HGB Conc 32.2 g/dl (31.0-35.0); Mean Corpuscular Hemoglobin 29.5 pg (27.0-33.0); Mean Corpuscular Volume 91.8 fL (80.0-98.0); Monocytes Absolute Auto 0.3 X10*3/uL (0.1-1.2); Monocytes Percent Auto 3.1 % (2-11); Neutrophils Absolute Auto 7.6 x10*3/uL (2.0-8.3); Neutrophils Percent Auto 86.2 % (45-73); PLT CLUMP 1; Potassium 4.1 mmol/L (3.3-5.1); Red Blood Count 4.98 X10*6/uL (4.20-5.50); Red Cell Distribution Width 13.5 % (11.0-16.0); SCAN SMEAR FLAG 1; Sodium 140 mmol/L (135-145); Total Protein 6.8 g/dL (6.5-8.0)
[2022-07-18] MEDS: predniSONE 20 MG TABLET 60 MG PO (14:29)
[2022-07-18 14:31] LABS: B Type Natriuretic Peptide 85 pg/mL (<100)
[2022-07-18 14:32] LABS: Troponin-I High Sensitivity 7.4 ng/L (<3.5-17.0)
[2022-07-18 15:19] LABS: Platelet Count 286 X10*3/uL (160-400); SLIDE REVIEW VERIFIED; White Blood Count 8.8 X10*3/uL (4.8-10.8)
== END 2022-07-18 15:06 | disposition home or self-care (01) ==
PROVIDERS: Physician Assistant; Emergency Provider Emergency Medicine Emergency Medical Services
DX: J44.9 Chronic obstructive pulmonary disease, unspecified (principal); M79.7 Fibromyalgia; Z20.822 Contact with and (suspected) exposure to COVID-19
CPT/HCPCS: 71045; 80048; 80076; 82947; 83880; 84484; 85025; 85610; 87502; 87635; 93005; 94640; 99284; 99285

== ENCOUNTER → 2022-08-22 15:54 | Outpatient (BNVA) | payer MEDICAID, SELFPAY | PROVIDERS: PCP Internal Medicine; Visit Provider Urology ==

== ENCOUNTER 2022-09-25 20:11 | Emergency (ER) | payer MEDICAID, SELFPAY ==
--- NOTE | ~2022-09-25 | XR_ITS ---
EXAMINATION: PORTABLE CHEST 1 VIEW CLINICAL INFORMATION: sob. COMPARISON: 07/18/2022. TECHNIQUE: Portable frontal view of the chest was obtained. FINDINGS: The lungs are well expanded. No focal infiltrate, effusion, edema, or pneumothorax. Cardiac and mediastinal silhouettes are within normal limits for size. Patient is status post sternotomy with vascular calcification in aorta. Right pectoral single lead pacemaker is again noted with lead tip overlying the expected right ventricle. No acute bony abnormality seen. XR/XR chest 1V IMPRESSION: Chronic appearing and postoperative changes similar to the 07/18/2022 study.
[2022-09-25 20:14] VITALS: BP 158/86; PULSE 83; O2SAT 95
--- NOTE | 2022-09-25 20:30 | ED_ITS ---
HPI - SOB/Dyspnea General Chief Complaint: Dyspnea Stated Complaint: SOb Time Seen by Provider: 09/25/22 20:29 Source: patient Mode of arrival: ambulatory Limitations: no limitations History of Present Illness HPI Narrative: Patient with history of asthma/COPD smoker uses inhaler came for increase wheezing prior to arrival used her inhaler without much relief saturating 95% on room air and wheezing no chest pain no fever or chills has dry cough Related Data Home Medications Medication Instructions Recorded Confirmed acetaminophen 650 mg 650 mg PO Q8H PRN pain 07/03/22 07/03/22 tablet,extended release albuterol sulfate 90 mcg/actuation 2 puff inhalation Q4H PRN wheezing 07/03/22 07/03/22 aerosol inhaler (Ventolin HFA) amitriptyline 25 mg tablet 25 mg PO BEDTIME 07/03/22 07/03/22 azithromycin 250 mg tablet 250 mg PO 3XW asthma 07/03/22 07/03/22 bisacodyl 5 mg tablet,delayed 10 mg PO BEDTIME 07/03/22 07/03/22 release calcium carbonate 600 mg-vitamin 1 tab PO QAM 07/03/22 07/03/22 D3 10 mcg (400 unit) tablet clopidogrel 75 mg tablet 75 mg PO DAILY 07/03/22 07/03/22 cyanocobalamin (vitamin B-12) 1,000 mcg PO QAM 07/03/22 07/03/22 1,000 mcg tablet folic acid 1 mg tablet 1 mg PO DAILY 07/03/22 07/03/22 gabapentin 100 mg capsule 100 mg PO TID 07/03/22 07/03/22 hydrochlorothiazide 12.5 mg tablet 12.5 mg PO QAM 07/03/22 07/03/22 ipratropium 0.5 mg-albuterol 3 mg 1 inhalation QID 07/03/22 (2.5 mg base)/3 mL nebulization soln melatonin 5 mg tablet 5 mg PO BEDTIME PRN insomnia 07/03/22 07/03/22 montelukast 10 mg tablet 10 mg PO QPM 07/03/22 07/03/22 sertraline 50 mg tablet 50 mg PO QAM 07/03/22 07/03/22 tiotropium bromide 18 mcg capsule 1 cap inhalation DAILY 07/03/22 07/03/22 with inhalation device (Spiriva with HandiHaler) Previous Rx's Medication Instructions Recorded cefuroxime axetil 500 mg tablet 500 mg PO BID #60 tabs 07/04/22 prednisone 10 mg tablet 40 mg PO DIRECTED #16 tabs 07/04/22 albuterol sulfate 2.5 mg/3 mL 2.5 mg (3 mL) inhalation Q4-6H PRN 07/18/22 (0.083 %) solution for nebulization shortness of breath or wheezing #90 mL albuterol sulfate 90 mcg/actuation 2 puff inhalation Q4-6H PRN 07/18/22 aerosol inhaler shortness of breath or wheezing #8.5 grams prednisone 20 mg tablet 60 mg PO DAILY 5 days #15 tabs 07/18/22 fluticasone 500 mcg-salmeterol 50 1 ea PO BID #60 ea 07/31/22 mcg/dose blistr powdr for inhalation (Advair Diskus) albuterol sulfate 90 mcg/actuation 2 puff inhalation Q4-6H PRN 09/25/22 aerosol inhaler (ProAir HFA) shortness of breath or wheezing #8.5 grams prednisone 20 mg tablet 40 mg PO DAILY #10 tabs 09/25/22 Allergies Allergy/AdvReac Type Severity Reaction Status Date / Time latex [LATEX] Allergy Severe DIFFICULTY Verified 08/22/22 15:58 BREATHING aspirin [Aspirin] Allergy Intermediate ITCHING, Verified 08/22/22 15:58 itchiness ciprofloxacin [From CIPRO] Allergy Intermediate DIAPHORESIS Verified 08/22/22 15:58 /PURITIS Penicillins [PENICILLINS] Allergy Unknown UNKNOWN Verified 08/22/22 15:58 HEMALATHA Inhibitors AdvReac Intermediate COUGH Verified 08/22/22 15:58 [HEMALATHA INHIBITORS] Review of Systems Review of Systems: Yes all other systems are reviewed and are negative [facility] Past Medical History Medical History Allergic rhinitis Aortic valve endocarditis Asthma Bronchitis COPD (chronic obstructive pulmonary disease) COPD (chronic obstructive pulmonary disease) COPD (chronic obstructive pulmonary disease) COPD exacerbation Family history of GERD Fibromyalgia GERD (gastroesophageal reflux disease) History of arthritis History of depression History of enuresis History of urinary incontinence Hx of allergic rhinitis Hx of cardiac pacemaker Hx of coronary artery disease Hx of diabetes mellitus Hx of drug abuse Hx of essential hypertension Hx of hyperlipidemia Hx of migraines Hx of osteoarthritis Hx of pilonidal cyst MARY (obstructive sleep apnea) MARY on CPAP Overactive bladder Reactive airways dysfunction syndrome Rheumatoid arthritis Surgical History History of cystoscopy History of epidermal inclusion cyst excision History of hysterectomy History of surgical removal of pilonidal cyst Hx laparoscopic cholecystectomy Hx of aortic valve replacement Hx of bilateral cataract extraction Hx of colonoscopy Social History Social History Household Members: None Housing: Apartment Do you presently have visiting nurse or other home services: No Alcohol intake: never Patient Tobacco Use Status: Refuse Tobacco use screen Tobacco use type: Cigarette Cigarettes Per Day: 2 Advance Directives: Yes Advance Directives on File: Yes Advance Directives Date on File: 11/08/21 service: No Current occupational status: unemployed and disabled Physical Exam Vital Signs: Vital Signs: Last Vital Signs Temp 98.1 F 09/25/22 21:38 Pulse 82 09/25/22 23:08 Resp 20 09/25/22 23:08 BP 134/74 09/25/22 21:38 Pulse Ox 95 09/25/22 21:38 O2 Del Method Room Air 09/25/22 21:38 BMI result Body Mass Index 29.7 Appearance: Alert. Oriented X3. No acute distress. Eyes: No pallor or icterus ENT: Pharynx normal. Oral Mucosa moist Neck: Normal inspection. Neck supple. CVS: Normal heart rate and rhythm. Pulses normal. Respiratory: No respiratory distress. Dry cough++ Equal air entry bilateral, bi lateral wheezing Abdomen: Soft and nontender. Bowel sounds are present, no mass palpable, no CVA tenderness Skin: Skin warm and dry. Normal skin color. Normal skin turgor. Extremities: No lower extremity edema. No calf tenderness Neuro: Oriented X 3. No motor deficit. Medications Administered Discontinued Medications Generic Name Dose Route Start Last Admin Trade Name Freq PRN Reason Stop Dose Admin Albuterol Sulfate 7.5 mg 09/25/22 20:42 09/25/22 20:50 Albuterol Sulfate (0.083%) 2.5 Mg/3 Ml Vial.Neb INHALE 09/25/22 20:43 7.5 mg ONCE ONE Administration Albuterol Sulfate 7.5 mg 09/25/22 22:59 07/31/23 23:08 Albuterol Sulfate (0.083%) 2.5 Mg/3 Ml Vial.Neb INHALE 09/25/22 23:00 7.5 mg ONCE ONE Administration Magnesium Sulfate 2 gm in 50 mls @ 100 mls/hr 09/25/22 20:43 09/25/22 23:45 Magnesium Sulfate/H2o IV 09/25/22 21:12 Infused ONCE ONE Infusion Methylprednisolone Sodium Succinate 125 mg 09/25/22 20:42 09/25/22 21:47 Methylprednisolone Sod Succ 125 Mg/2 Ml Vial IVPUSH 09/25/22 20:43 125 mg ONCE ONE Administration Medical Decision Making Medical Decision Making [facility] Narrative: Patient with asthma flare up responded to steroids and nebulizing treatment feeling much better discharge patient home on prednisone chest x-ray negative for infiltrate Lab Data [facility] Lab Attestation statement: I reviewed the patient's lab results. 09/25/22 22:09 09/25/22 22:09 Labs: Lab Results 09/25/22 09/25/22 09/25/22 Range/Units 22:09 22:09 22:09 WBC 7.6 (4.8-10.8) X10*3/uL RBC 5.13 (4.20-5.50) X10*6/uL Hgb 14.7 (12.0-16.0) g/dl Hct 46.0 (37.0-47.0) % MCV 89.7 (80.0-98.0) fL MCH 28.7 (27.0-33.0) pg MCHC 32.0 (31.0-35.0) g/dl RDW 12.8 (11.0-16.0) % Plt Count 423 H D (160-400) X10*3/uL MPV 9.3 L (9.4-12.3) fL Immature Gran % (Auto) 0.3 (0.0-0.4) % Neut % (Auto) 58.4 (45-73) % Lymph % (Auto) 27.5 (20-40) % Oliver % (Auto) 7.2 (2-11) % Eos % (Auto) 6.2 H (0-4) % Baso % (Auto) 0.4 (0-2) % Lymph # (Auto) 2.1 (1.2-4.9) X10*3/uL Oliver # (Auto) 0.6 (0.1-1.2) X10*3/uL Eos # (Auto) 0.5 H (0.0-0.4) X10*3/uL Baso # (Auto) 0.0 (0.0-0.2) X10*3/uL Abs Immat Gran (auto) 0.02 (0.00-0.03) X10*3/uL Absolute Neuts (auto) 4.5 (2.0-8.3) x10*3/uL Absolute Nucleated RBC 0.000 (0.0-0.012) X10*3/uL Nucleated RBC % (auto) 0.0 (0.0-0.2) /100WBC Sodium 143 (135-145) mmol/L Potassium 3.7 (3.3-5.1) mmol/L Chloride 105 (96-108) mmol/L Carbon Dioxide 26 (22-29) mmol/L Anion Gap 16 (12-20) BUN 20 H (9-16) mg/dL Creatinine 1.34 (0.5-1.4) mg/dL Estim Creat Clear Calc 37.5 Estimated GFR 40 Random Glucose 125 H (60-115) mg/dL Calcium 10.4 H (8.4-10.2) mg/dL Total Bilirubin 0.2 (0.0-1.0) mg/dL AST 24 (5-31) U/L ALT 23 (0-31) U/L Alkaline Phosphatase 74 (39-117) U/L Total Protein 7.4 (6.5-8.0) g/dL Albumin 4.0 (3.5-5.0) g/dL COVID-19 ([facility]) Negative (Negative) COVID-19 Clin Com See Note Discharge Plan Discharge Clinical Impression: Asthma with exacerbation Patient Disposition: Home, Self-Care Instructions: Asthma (ED) Additional Instructions: Continue use her inhaler every 4 hours as needed Prednisone as prescribed Follow with PCP if not better Prescriptions: New prednisone 20 mg tablet 40 mg PO DAILY Qty: 10 0RF albuterol sulfate [ProAir HFA] 90 mcg/actuation HFA aerosol inhaler 2 puff inhalation Q4-6H PRN (Reason: shortness of breath or wheezing) Qty: 8.5 0RF No Action fluticasone propion-salmeterol [Advair Diskus] 500-50 mcg/dose blister with device 1 ea PO BID Qty: 60 1RF prednisone 20 mg tablet 60 mg PO DAILY 5 Days Qty: 15 0RF albuterol sulfate 90 mcg/actuation HFA aerosol inhaler 2 puff inhalation Q4-6H PRN (Reason: shortness of breath or wheezing) Qty: 8.5 0RF albuterol sulfate 2.5 mg /3 mL (0.083 %) solution for nebulization 2.5 mg inhalation Q4-6H PRN (Reason: shortness of breath or wheezing) Qty: 90 0RF ipratropium-albuterol 0.5 mg-3 mg(2.5 mg base)/3 mL solution for nebulization 1 inhalation QID azithromycin 250 mg tablet 250 mg PO 3XW acetaminophen 650 mg tablet extended release 650 mg PO Q8H PRN (Reason: pain) montelukast 10 mg tablet 10 mg PO QPM bisacodyl 5 mg tablet,delayed release (DR/EC) 10 mg PO BEDTIME gabapentin 100 mg capsule 100 mg PO TID sertraline 50 mg tablet 50 mg PO QAM Spiriva with HandiHaler 18 mcg capsule, w/inhalation device 1 cap inhalation DAILY calcium carbonate-vitamin D3 600 mg-10 mcg (400 unit) tablet 1 tab PO QAM hydrochlorothiazide 12.5 mg tablet 12.5 mg PO QAM melatonin 5 mg tablet 5 mg PO BEDTIME PRN (Reason: insomnia) albuterol sulfate [Ventolin HFA] 90 mcg/actuation HFA aerosol inhaler 2 puff inhalation Q4H PRN (Reason: wheezing) clopidogrel 75 mg tablet 75 mg PO DAILY amitriptyline 25 mg tablet 25 mg PO BEDTIME folic acid 1 mg tablet 1 mg PO DAILY cyanocobalamin (vitamin B-12) 1,000 mcg tablet 1,000 mcg PO QAM cefuroxime axetil 500 mg tablet 500 mg PO BID Qty: 60 0RF prednisone 10 mg tablet 40 mg PO DIRECTED Qty: 16 0RF Rx Instructions: see taper instructions Interventions: ED Discharge Assessment Last Done: 09/26/22 00:57 Discharge Date/Time: 09/26/22 00:58
[2022-09-25 20:50] VITALS: PULSE 70; RESP 16; O2SAT 96
[2022-09-25] MEDS: Albuterol Sulfate (0.083%) 2.5 MG/3 ML VIAL.NEB 7.5 MG INHALE ×2 (20:50→23:08)
[2022-09-25 21:38] VITALS: BP 134/74; PULSE 66; RESP 17; TEMP 36.7; O2SAT 95; BMI 29.7
[2022-09-25] MEDS: methylPREDNISolone Sod Succ 125 MG/2 ML VIAL IVPUSH (21:47)
[2022-09-25] MEDS: Magnesium Sulfate/H2O 2 GM/50 ML PIGGYBACK IV (21:47)
[2022-09-25 22:15] LABS: MANUAL DIFF FLAG NO
[2022-09-25 22:22] LABS: Basophils Percent Auto 0.4 % (0-2); Eosinophils Absolute Auto 0.5 X10*3/uL (0.0-0.4); Eosinophils Percent Auto 6.2 % (0-4); Hemoglobin 14.7 g/dl (12.0-16.0); Imm Gran Abs Auto 0.02 X10*3/uL (0.00-0.03); Imm Gran Pct Auto 0.3 % (0.0-0.4); Lymphocytes Absolute Auto 2.1 X10*3/uL (1.2-4.9); Lymphocytes Percent Auto 27.5 % (20-40); Mean Corpuscular Hemoglobin 28.7 pg (27.0-33.0); Mean Corpuscular Volume 89.7 fL (80.0-98.0); Mean Platelet Volume 9.3 fL (9.4-12.3); Monocytes Absolute Auto 0.6 X10*3/uL (0.1-1.2); Monocytes Percent Auto 7.2 % (2-11); Neutrophils Absolute Auto 4.5 x10*3/uL (2.0-8.3); Neutrophils Percent Auto 58.4 % (45-73); Platelet Count 423 X10*3/uL (160-400); Red Blood Count 5.13 X10*6/uL (4.20-5.50); Red Cell Distribution Width 12.8 % (11.0-16.0); White Blood Count 7.6 X10*3/uL (4.8-10.8)
[2022-09-25 22:27] LABS: COVID-19 Test Negative (Negative); IDNOW Serial# BCCEAD1C
[2022-09-25 22:34] LABS: Alanine Aminotransferase 23 U/L (0-31); Alkaline Phosphatase 74 U/L (39-117); Anion Gap 16 (12-20); Aspartate Amino Transferase 24 U/L (5-31); Bilirubin Total 0.2 mg/dL (0.0-1.0); Blood Urea Nitrogen 20 mg/dL (9-16); Calcium 10.4 mg/dL (8.4-10.2); Carbon Dioxide 26 mmol/L (22-29); Chloride 105 mmol/L (96-108); Creatinine Clr Calc Pharmacy 37.5; Estimated Glomerular Filt Rate 40; Glucose Random 125 mg/dL (60-115); Potassium 3.7 mmol/L (3.3-5.1); Sodium 143 mmol/L (135-145); Total Protein 7.4 g/dL (6.5-8.0)
[2022-09-25 23:08] VITALS: PULSE 82; RESP 20; O2SAT 96
--- NOTE | 2022-09-25 23:09 | MHC.EDTECH ---
TOOK OVER INSTRUCTIONAL FACILITATOR AT 2300
== END 2022-09-26 00:58 | disposition home or self-care (01) ==
PROVIDERS: Emergency Provider Internal Medicine; PCP Internal Medicine
DX: J45.901 Unspecified asthma with (acute) exacerbation (principal); R06.02 Shortness of breath; Z20.822 Contact with and (suspected) exposure to COVID-19; E11.9 Type 2 diabetes mellitus without complications; I10 Essential (primary) hypertension; E78.5 Hyperlipidemia, unspecified; Z95.0 Presence of cardiac pacemaker; Z79.899 Other long term (current) drug therapy
CPT/HCPCS: 71045; 80053; 85025; 87635; 94640; 96365; 96366; 96375; 99283; 99284; J2930; J3475

== ENCOUNTER 2022-10-20 23:11 | Inpatient (IN) | payer MEDICAID, SELFPAY ==
--- NOTE | ~2022-10-20 | XR_ITS ---
EXAMINATION: XR CHEST CLINICAL INFORMATION: Respiratory distress COMPARISON: 09/25/2022 TECHNIQUE: Frontal view of the chest was obtained. FINDINGS: The cardiomediastinal silhouette is normal. There has been a previous median sternotomy. A single chamber pacer lead is in place. There is no focal lung consolidation or pleural effusion. The bony structures and soft tissues are unremarkable. XR/XR chest 1V IMPRESSION: No active cardiopulmonary disease.
[2022-10-20 23:19] VITALS: BP 144/79; BP 148/95; PULSE 52; PULSE 75; RESP 28; O2SAT 95; O2SAT 96; BMI 28.9
--- NOTE | 2022-10-20 23:19 | ECG_ITS ---
Test Reason : SOB Blood Pressure : / mmHG Vent. Rate : 071 BPM Atrial Rate : 375 BPM P-R Int : 000 ms QRS Dur : 142 ms QT Int : 460 ms P-R-T Axes : 000 -75 091 degrees QTc Int : 499 ms Ventricular-paced rhythm with premature ventricular or aberrantly conducted complexes Abnormal ECG When compared with ECG of 18-JUL-2022 11:16, Vent. rate has increased BY 6 BPM Referred By: Suleiman Duenas Electronically Signed By:MATT GRANDE
[2022-10-20 23:25] VITALS: PULSE 64; RESP 32; TEMP 37.2; O2SAT 98
[2022-10-20 23:36] VITALS: PULSE 69; RESP 28; O2SAT 98
[2022-10-20] MEDS: Albuterol Sulfate 7.5 MG, Albuterol/Iprat 2.5/0.5MG 3 ML 3 ML INHALE (23:36)
[2022-10-20 23:39] VITALS: O2SAT 97
--- NOTE | 2022-10-20 23:39 | ED_ITS ---
HPI - SOB/Dyspnea General Chief Complaint: Dyspnea Stated Complaint: sob Time Seen by Provider: 10/20/22 23:15 Source: patient and EMS Mode of arrival: EMS Limitations: no limitations History of Present Illness HPI Narrative: 61-year-old female with history of COPD, asthma, valve replacement presents with acute shortness of breath. Symptoms started proximally 12:00 p.m. this past afternoon. Symptoms have been getting progressively worse. She describes her shortness of breath as severe. She has never been intubated before. Associated wheezing and coughing. She also complains of some chest tightness but no chest pain. Symptoms are significantly worse with any form of exertion. She denies any fevers or chills, nausea vomiting. Patient used her inhaler at home without relief. She called 911 who found her oxygen saturation be 95% on room air 100% with DuoNeb nebulizer on route. Related Data Home Medications Medication Instructions Recorded Confirmed acetaminophen 650 mg 650 mg PO Q8H PRN pain 07/03/22 10/21/22 tablet,extended release albuterol sulfate 90 mcg/actuation 2 puff inhalation Q4H PRN wheezing 07/03/22 10/21/22 aerosol inhaler (Ventolin HFA) amitriptyline 25 mg tablet 25 mg PO BEDTIME 07/03/22 10/21/22 bisacodyl 5 mg tablet,delayed 10 mg PO BEDTIME 07/03/22 10/21/22 release calcium carbonate 600 mg-vitamin 1 tab PO QAM 07/03/22 10/21/22 D3 10 mcg (400 unit) tablet clopidogrel 75 mg tablet 75 mg PO DAILY 07/03/22 10/21/22 cyanocobalamin (vitamin B-12) 1,000 mcg PO QAM 07/03/22 10/21/22 1,000 mcg tablet folic acid 1 mg tablet 1 mg PO DAILY 07/03/22 10/21/22 gabapentin 100 mg capsule 100 mg PO TID 07/03/22 10/21/22 hydrochlorothiazide 12.5 mg tablet 12.5 mg PO QAM 07/03/22 10/21/22 melatonin 5 mg tablet 5 mg PO BEDTIME PRN insomnia 07/03/22 10/21/22 montelukast 10 mg tablet 10 mg PO QPM 07/03/22 10/21/22 sertraline 50 mg tablet 50 mg PO QAM 07/03/22 10/21/22 Allergies Allergy/AdvReac Type Severity Reaction Status Date / Time latex [LATEX] Allergy Severe DIFFICULTY Verified 08/22/22 15:58 BREATHING aspirin [Aspirin] Allergy Intermediate ITCHING, Verified 08/22/22 15:58 itchiness ciprofloxacin [From CIPRO] Allergy Intermediate DIAPHORESIS Verified 08/22/22 15:58 /PURITIS Penicillins [PENICILLINS] Allergy Unknown UNKNOWN Verified 08/22/22 15:58 HEMALATHA Inhibitors AdvReac Intermediate COUGH Verified 08/22/22 15:58 [HEMALATHA INHIBITORS] Review of Systems Review of Systems: CONSTITUTIONAL: Denies weight loss, fever and chills. HEENT: Denies changes in vision and hearing. RESPIRATORY: + SOB and cough. CV: Denies palpitations + CP. GI: Denies abdominal pain, nausea, vomiting and diarrhea. : Denies dysuria and urinary frequency. MSK: Denies myalgia and joint pain. SKIN: Denies rash and pruritus. NEUROLOGICAL: Denies headache and syncope. PSYCHIATRIC: Denies recent changes in mood. Denies anxiety and depression. All other ROS are negative unless in HPI PMFSH Past Medical History Medical History Allergic rhinitis Aortic valve endocarditis Asthma Bronchitis COPD (chronic obstructive pulmonary disease) COPD (chronic obstructive pulmonary disease) COPD (chronic obstructive pulmonary disease) COPD exacerbation Family history of GERD Fibromyalgia GERD (gastroesophageal reflux disease) History of arthritis History of depression History of enuresis History of urinary incontinence Hx of allergic rhinitis Hx of cardiac pacemaker Hx of coronary artery disease Hx of diabetes mellitus Hx of drug abuse Hx of essential hypertension Hx of hyperlipidemia Hx of migraines Hx of osteoarthritis Hx of pilonidal cyst MARY (obstructive sleep apnea) MARY on CPAP Overactive bladder Reactive airways dysfunction syndrome Rheumatoid arthritis Surgical History History of cystoscopy History of epidermal inclusion cyst excision History of hysterectomy History of surgical removal of pilonidal cyst Hx laparoscopic cholecystectomy Hx of aortic valve replacement Hx of bilateral cataract extraction Hx of colonoscopy Social History Social History Household Members: None Housing: Apartment Do you presently have visiting nurse or other home services: No Alcohol intake: never Patient Tobacco Use Status: Refuse Tobacco use screen Tobacco use type: Cigarette Cigarettes Per Day: 2 Smoked in Last 30 Days: Yes Use of substances other than those prescribed or required for medical reasons: No Advance Directives: Yes Advance Directives on File: Yes Advance Directives Date on File: 11/08/21 Patient : No service: No Current occupational status: unemployed and disabled Physical Exam Vital Signs: Vital Signs: Last Vital Signs Temp 98.9 F 10/20/22 23:25 Pulse 60 10/21/22 00:00 Resp 20 10/21/22 00:00 BP 143/82 H 10/21/22 00:00 Pulse Ox 96 10/21/22 00:00 O2 Del Method Nasal Cannula 10/21/22 00:00 O2 Flow Rate 2 10/21/22 00:00 BMI result Body Mass Index 28.9 GEN: Well developed, acute respiratory distress, alert, oriented HEENT: Normocephalic, atraumatic, normal external ears, nose appears normal, no oropharyngeal edema or exudates Eyes: Normal to appearance Neck: Supple, no lymphadenopathy Respiratory: Severe conversational dyspnea, tachypnea, audible expiratory wheezes, prolonged expiration Cardiovascular: Regular rate and rhythm, no murmurs rubs or gallops Abdomen: Soft, nontender, nondistended, no guarding, no rebound Back: No CVA tenderness Extremities: No clubbing cyanosis or edema Neurologic: No focal neurologic deficits, cranial nerves 2-12 intact, strength is 5/5 bilaterally Skin: No rash Course Reevaluation(s) Reevaluation #1: I reviewed the patient's blood gas. There are no significant abnormalities. Her breathing work has decreased however she also appears fatigued. Ultrasound- guided IV access has been obtained. Time: 00:32 Reevaluation #2: The patient is maintaining good oxygen saturation on nasal cannula. Will order her CPAP at this time. Will admit the patient for COPD exacerbation. Time: 02:23 Medications Administered Discontinued Medications Generic Name Dose Route Start Last Admin Trade Name Fredaniel PRN Reason Stop Dose Admin Albuterol Sulfate 7.5 mg/ 0 mg 10/20/22 23:19 10/20/22 23:36 Albuterol/Ipratropium 3 ml INHALE 10/20/22 23:20 10 each ONCE ONE Administration Ceftriaxone Sodium 1 gm/ 50 mls @ 100 mls/hr 10/20/22 23:21 10/21/22 01:47 Sodium Chloride IV 10/20/22 23:50 Infused ONCE ONE Infusion Azithromycin 500 mg/ Sodium 250 mls @ 125 mls/hr 10/20/22 23:21 10/21/22 01:38 Chloride IV 10/21/22 01:20 125 mls/hr ONCE ONE Administration Methylprednisolone Sodium Succinate 125 mg 10/20/22 23:19 10/21/22 00:28 Methylprednisolone Sod Succ 125 Mg/2 Ml Vial IVPUSH 10/20/22 23:20 125 mg ONCE ONE Administration Medical Decision Making Medical Decision Making [facility] Narrative: 61-year-old female presents with acute respiratory distress. This possible COPD or asthma exacerbation. She has significant work of breathing. Will obtain an ABG to assess respiratory status. Will get a chest x-ray to rule out pneumonia, CHF, bronchitis or other respiratory illness. Will check an EKG to make sure there is no evidence of acute cardiac ischemia. She does have history of a pacemaker. Pain patient will get DuoNeb x3 initially with Solu-Medrol. I will go ahead and treat the patient for potential infectious etiology/COPD exacerbation with ceftriaxone and azithromycin. Will obtain blood cultures x2. Will check for COVID. Patient will likely need to be admitted to the hospital due to her respiratory distress. Differential Diagnosis Differential Diagnoses: The differential diagnosis associated with the presenta tion includes (See above) COPD exacerbation Admission/Observation Consideration of admission/observation: Escalation of care including admission/observation considered Consult Healthcare Provider Management of the patient was discussed with: Hospitalist Lab Data [facility] Lab Attestation statement: I reviewed the patient's lab results. 10/21/22 00:27 10/21/22 00:27 Labs: Lab Results 10/20/22 10/21/22 10/21/22 Range/Units 23:52 00:27 00:27 WBC 11.8 H (4.8-10.8) X10*3/uL RBC 4.99 (4.20-5.50) X10*6/uL Hgb 14.8 (12.0-16.0) g/dl Hct 45.0 (37.0-47.0) % MCV 90.2 (80.0-98.0) fL MCH 29.7 (27.0-33.0) pg MCHC 32.9 (31.0-35.0) g/dl RDW 13.6 (11.0-16.0) % Plt Count 265 D (160-400) X10*3/uL MPV 9.8 (9.4-12.3) fL Immature Gran % (Auto) 0.2 (0.0-0.4) % Neut % (Auto) 67.6 (45-73) % Lymph % (Auto) 18.9 L (20-40) % [place] % (Auto) 8.1 (2-11) % Eos % (Auto) 4.9 H (0-4) % Baso % (Auto) 0.3 (0-2) % Lymph # (Auto) 2.2 (1.2-4.9) X10*3/uL [place] # (Auto) 1.0 (0.1-1.2) X10*3/uL Eos # (Auto) 0.6 H (0.0-0.4) X10*3/uL Baso # (Auto) 0.0 (0.0-0.2) X10*3/uL Abs Immat Gran (auto) 0.02 (0.00-0.03) X10*3/uL Absolute Neuts (auto) 8.0 (2.0-8.3) x10*3/uL Absolute Nucleated RBC 0.000 (0.0-0.012) X10*3/uL Nucleated RBC % (auto) 0.0 (0.0-0.2) /100WBC PT (11.1-13.3) SEC INR (0.9-1.1) APTT (26.0-36.4) SEC O2 Saturation 99.0 % ABG pH at Pt Temp 7.46 H (7.35-7.45) ABG pCO2 at Pt Temp 39 (32-45) mmHg ABG pO2 at Pt Temp 109 H (83-108) mmHg ABG HCO3 28 H (22-26) mmol/L ABG Base Excess (Actual) 4.1 mmol/L Sodium 140 (135-145) mmol/L Potassium 3.7 (3.3-5.1) mmol/L Chloride 104 (96-108) mmol/L Carbon Dioxide 27 (22-29) mmol/L Anion Gap 13 (12-20) BUN 20 H (9-16) mg/dL Creatinine 0.90 (0.5-1.4) mg/dL Estim Creat Clear Calc 55.1 Estimated GFR > 60 Random Glucose 125 H (60-115) mg/dL Lactic Acid (0.5-2.0) mmol/L Calcium 10.0 (8.4-10.2) mg/dL Total Bilirubin 0.4 (0.0-1.0) mg/dL AST 20 (5-31) U/L ALT 16 (0-31) U/L Alkaline Phosphatase 78 (39-117) U/L Troponin I High Sens (<3.5-17.0) ng/L B-Natriuretic Peptide (<100) pg/mL Total Protein 7.1 (6.5-8.0) g/dL Albumin 4.0 (3.5-5.0) g/dL Urine Color Urine Appearance Urine pH (5.0-9.0) Ur Specific [place] (1.005-1.025) Urine Protein (Neg-Trace) mg/dL Urine Glucose (UA) (Negative) mg/dL Urine Ketones (Negative) mg/dL Urine Blood (Negative) Urine Nitrite (Negative) Ur Leukocyte Esterase (Negative) Urine RBC (0-2) /HPF Urine WBC (0-5) /HPF Ur Squamous Epith Cells (0-2) /HPF Urine Bacteria (None Seen) Hyaline Casts (0-2) /LPF COVID-19 ([facility]) (Negative) COVID-19 Clin Com 10/21/22 10/21/22 10/21/22 Range/Units 00:27 00:27 00:27 WBC (4.8-10.8) X10*3/uL RBC (4.20-5.50) X10*6/uL Hgb (12.0-16.0) g/dl Hct (37.0-47.0) % MCV (80.0-98.0) fL MCH (27.0-33.0) pg MCHC (31.0-35.0) g/dl RDW (11.0-16.0) % Plt Count (160-400) X10*3/uL MPV (9.4-12.3) fL Immature Gran % (Auto) (0.0-0.4) % Neut % (Auto) (45-73) % Lymph % (Auto) (20-40) % [place] % (Auto) (2-11) % Eos % (Auto) (0-4) % Baso % (Auto) (0-2) % Lymph # (Auto) (1.2-4.9) X10*3/uL [place] # (Auto) (0.1-1.2) X10*3/uL Eos # (Auto) (0.0-0.4) X10*3/uL Baso # (Auto) (0.0-0.2) X10*3/uL Abs Immat Gran (auto) (0.00-0.03) X10*3/uL Absolute Neuts (auto) (2.0-8.3) x10*3/uL Absolute Nucleated RBC (0.0-0.012) X10*3/uL Nucleated RBC % (auto) (0.0-0.2) /100WBC PT 11.8 (11.1-13.3) SEC INR 1.0 (0.9-1.1) APTT 31.6 (26.0-36.4) SEC O2 Saturation % ABG pH at Pt Temp (7.35-7.45) ABG pCO2 at Pt Temp (32-45) mmHg ABG pO2 at Pt Temp (83-108) mmHg ABG HCO3 (22-26) mmol/L ABG Base Excess (Actual) mmol/L Sodium (135-145) mmol/L Potassium (3.3-5.1) mmol/L Chloride (96-108) mmol/L Carbon Dioxide (22-29) mmol/L Anion Gap (12-20) BUN (9-16) mg/dL Creatinine (0.5-1.4) mg/dL Estim Creat Clear Calc Estimated GFR Random Glucose (60-115) mg/dL Lactic Acid (0.5-2.0) mmol/L Calcium (8.4-10.2) mg/dL Total Bilirubin (0.0-1.0) mg/dL AST (5-31) U/L ALT (0-31) U/L Alkaline Phosphatase (39-117) U/L Troponin I High Sens 10.7 (<3.5-17.0) ng/L B-Natriuretic Peptide (<100) pg/mL Total Protein (6.5-8.0) g/dL Albumin (3.5-5.0) g/dL Urine Color Urine Appearance Urine pH (5.0-9.0) Ur Specific [place] (1.005-1.025) Urine Protein (Neg-Trace) mg/dL Urine Glucose (UA) (Negative) mg/dL Urine Ketones (Negative) mg/dL Urine Blood (Negative) Urine Nitrite (Negative) Ur Leukocyte Esterase (Negative) Urine RBC (0-2) /HPF Urine WBC (0-5) /HPF Ur Squamous Epith Cells (0-2) /HPF Urine Bacteria (None Seen) Hyaline Casts (0-2) /LPF COVID-19 (HOLLIS) Negative (Negative) COVID-19 Clin Com See Note 10/21/22 10/21/22 10/21/22 Range/Units 00:27 00:27 00:58 WBC (4.8-10.8) X10*3/uL RBC (4.20-5.50) X10*6/uL Hgb (12.0-16.0) g/dl Hct (37.0-47.0) % MCV (80.0-98.0) fL MCH (27.0-33.0) pg MCHC (31.0-35.0) g/dl RDW (11.0-16.0) % Plt Count (160-400) X10*3/uL MPV (9.4-12.3) fL Immature Gran % (Auto) (0.0-0.4) % Neut % (Auto) (45-73) % Lymph % (Auto) (20-40) % [place] % (Auto) (2-11) % Eos % (Auto) (0-4) % Baso % (Auto) (0-2) % Lymph # (Auto) (1.2-4.9) X10*3/uL [place] # (Auto) (0.1-1.2) X10*3/uL Eos # (Auto) (0.0-0.4) X10*3/uL Baso # (Auto) (0.0-0.2) X10*3/uL Abs Immat Gran (auto) (0.00-0.03) X10*3/uL Absolute Neuts (auto) (2.0-8.3) x10*3/uL Absolute Nucleated RBC (0.0-0.012) X10*3/uL Nucleated RBC % (auto) (0.0-0.2) /100WBC PT (11.1-13.3) SEC INR (0.9-1.1) APTT (26.0-36.4) SEC O2 Saturation % ABG pH at Pt Temp (7.35-7.45) ABG pCO2 at Pt Temp (32-45) mmHg ABG pO2 at Pt Temp (83-108) mmHg ABG HCO3 (22-26) mmol/L ABG Base Excess (Actual) mmol/L Sodium (135-145) mmol/L Potassium (3.3-5.1) mmol/L Chloride (96-108) mmol/L Carbon Dioxide (22-29) mmol/L Anion Gap (12-20) BUN (9-16) mg/dL Creatinine (0.5-1.4) mg/dL Estim Creat Clear Calc Estimated GFR Random Glucose (60-115) mg/dL Lactic Acid 0.8 (0.5-2.0) mmol/L Calcium (8.4-10.2) mg/dL Total Bilirubin (0.0-1.0) mg/dL AST (5-31) U/L ALT (0-31) U/L Alkaline Phosphatase (39-117) U/L Troponin I High Sens (<3.5-17.0) ng/L B-Natriuretic Peptide 323 H (<100) pg/mL Total Protein (6.5-8.0) g/dL Albumin (3.5-5.0) g/dL Urine Color Yellow Urine Appearance Clear Urine pH 5.5 (5.0-9.0) Ur Specific [place] 1.015 (1.005-1.025) Urine Protein 30 (1+) H (Neg-Trace) mg/dL Urine Glucose (UA) Negative (Negative) mg/dL Urine Ketones Negative (Negative) mg/dL Urine Blood Trace H (Negative) Urine Nitrite Negative (Negative) Ur Leukocyte Esterase Negative (Negative) Urine RBC 0-2 (0-2) /HPF Urine WBC 0-5 (0-5) /HPF Ur Squamous Epith Cells 0-2 (0-2) /HPF Urine Bacteria None Seen (None Seen) Hyaline Casts 0-2 (0-2) /LPF COVID-19 ([facility]) (Negative) COVID-19 Clin Com ABG Data Attestation ABG: I personally reviewed and interpreted this ABG as follows: (Essentially normal ABG) Independent Interpretation I performed an independent interpretation of an: EKG (Ventricularly paced rhythm, underlying atrial flutter apparent), Rhythm Strip (Paced) and Plain X- Ray (Chest: No acute cardiopulmonary disease, cardiomegaly) Independent Historian Clinical information obtained from an independent historian. History obtained from or confirmed by: EMS External Record Review External record reviewed: Inpatient record Prescription Management I considered prescription management with: Pain Medication and Antibiotic Chronic Conditions Patient?s care impacted by: Diabetes and Other (Heart disease, sleep apnea, reactive airway disease, COPD) Critical Care Time Critical Care Time Total Critical Care Time: 65 Attestation: Due to a high probability of clinically significant, life threatening deterioration, the patient required my highest level of preparedness to intervene emergently and I personally spent this critical care time directly and personally managing the patient. This critical care time included obtaining a history; examining the patient; pulse oximetry; ordering and review of studies; arranging urgent treatment with development of a management plan; evaluation of patient's response to treatment; frequent reassessment; and, discussions with other providers. This critical care time was performed to assess and manage the high probability of imminent, life-threatening deterioration that could result in multi-organ failure. It was exclusive of separately billable procedures and treating other patients and teaching time. Discharge Plan Discharge Clinical Impression: Acute respiratory distress Patient Disposition: Admitted As Inpatient
[2022-10-20 23:55] LABS: ABG Base Excess 4.1 mmol/L; ABG HCO3 28 mmol/L (22-26); ABG pCO2 39 mmHg (32-45); ABG pH 7.46 (7.35-7.45); ABG pO2 109 mmHg (83-108)
[2022-10-20 23:58] LABS: ABG Refer to POC result
[2022-10-21] VITALS (13 sets, daily range): BP systolic 126–148; BP diastolic 63–88; PULSE 54–87; RESP 16–24; TEMP 36.3–37.1; O2SAT 92–98; BMI 29.0
[2022-10-21] MEDS: cefTRIAXone sodium 1 GM in 0.9 % Sodium Chloride 50 ML IV (00:27)
[2022-10-21] MEDS: methylPREDNISolone Sod Succ 125 MG/2 ML VIAL IVPUSH (00:28)
[2022-10-21 00:34] LABS: MANUAL DIFF FLAG NO
[2022-10-21 00:35] LABS: Basophils Percent Auto 0.3 % (0-2); Eosinophils Absolute Auto 0.6 X10*3/uL (0.0-0.4); Eosinophils Percent Auto 4.9 % (0-4); Hemoglobin 14.8 g/dl (12.0-16.0); Imm Gran Abs Auto 0.02 X10*3/uL (0.00-0.03); Imm Gran Pct Auto 0.2 % (0.0-0.4); Lymphocytes Absolute Auto 2.2 X10*3/uL (1.2-4.9); Lymphocytes Percent Auto 18.9 % (20-40); Mean Corpuscular HGB Conc 32.9 g/dl (31.0-35.0); Mean Corpuscular Hemoglobin 29.7 pg (27.0-33.0); Mean Corpuscular Volume 90.2 fL (80.0-98.0); Mean Platelet Volume 9.8 fL (9.4-12.3); Monocytes Percent Auto 8.1 % (2-11); Neutrophils Percent Auto 67.6 % (45-73); Platelet Count 265 X10*3/uL (160-400); Red Blood Count 4.99 X10*6/uL (4.20-5.50); Red Cell Distribution Width 13.6 % (11.0-16.0); White Blood Count 11.8 X10*3/uL (4.8-10.8)
--- NOTE | 2022-10-21 00:39 | PC.NURSE ---
Assumed care of pt. Pt visibly dyspnaec, endorsing hx of COPD and asthma. wheezing heard throughout lung villar. Pt transfered to stretcher by EMS. respiratory called for brbeathing treatments. IV access obtained by provider via US. Medicated per orders. Pt endorsing improvement in breathing after medications.
[2022-10-21 00:41] LABS: Prothrombin Time 11.8 SEC (11.1-13.3)
[2022-10-21 00:44] LABS: Partial Thromboplastin Time 31.6 SEC (26.0-36.4)
[2022-10-21 00:46] LABS: Lactic Acid 0.8 mmol/L (0.5-2.0)
[2022-10-21 00:51] LABS: Alanine Aminotransferase 16 U/L (0-31); Alkaline Phosphatase 78 U/L (39-117); Anion Gap 13 (12-20); Aspartate Amino Transferase 20 U/L (5-31); Bilirubin Total 0.4 mg/dL (0.0-1.0); Blood Urea Nitrogen 20 mg/dL (9-16); Carbon Dioxide 27 mmol/L (22-29); Chloride 104 mmol/L (96-108); Creatinine Clr Calc Pharmacy 55.1; Estimated Glomerular Filt Rate > 60; Glucose Random 125 mg/dL (60-115); Potassium 3.7 mmol/L (3.3-5.1); Sodium 140 mmol/L (135-145); Total Protein 7.1 g/dL (6.5-8.0)
[2022-10-21 00:57] LABS: B Type Natriuretic Peptide 323 pg/mL (<100); COVID-19 Test Negative (Negative); IDNOW Serial# 6674DD1D; Troponin-I High Sensitivity 10.7 ng/L (<3.5-17.0)
[2022-10-21 01:04] LABS: Appearance Urine Clear; Color Urine Yellow; Glucose Urine UA Negative (Negative); Leukocyte Esterase Urine Negative (Negative); Nitrite Urine Negative (Negative); PH 5.5 (5.0-9.0); Specific Gravity - Urine 1.015 (1.005-1.025); UMIC TRIGGER UACC YES; Urine Blood Trace (Negative); Urine Ketones Negative (Negative); Urine Protein 30 (1+) mg/dL (Neg-Trace)
[2022-10-21 01:08] LABS: Bacteria Urine None Seen (None Seen); Hyaline Casts Urine 0-2 /LPF (0-2); RBC Urine 0-2 /HPF (0-2); Squamous Epithelial Cell Urine 0-2 /HPF (0-2); WBC Urine 0-5 /HPF (0-5)
[2022-10-21] MEDS: Azithromycin 500 MG in 0.9 % Sodium Chloride 250 ML 125 MG IV (01:38)
[2022-10-21] MEDS: Albuterol/Iprat 2.5/0.5MG 3 ML AMPUL.NEB INHALE ×6 (06:01→23:22)
[2022-10-21] MEDS: Enoxaparin Sodium 40 MG/0.4 ML SYRINGE SUBCUT (06:27)
[2022-10-21 06:33] LABS: Basophils Percent Auto 0.1 % (0-2); Eosinophils Percent Auto 0.1 % (0-4); Hematocrit 47.8 % (37.0-47.0); Hemoglobin 15.4 g/dl (12.0-16.0); Imm Gran Abs Auto 0.05 X10*3/uL (0.00-0.03); Imm Gran Pct Auto 0.5 % (0.0-0.4); Lymphocytes Absolute Auto 0.4 X10*3/uL (1.2-4.9); Lymphocytes Percent Auto 3.9 % (20-40); MANUAL DIFF FLAG SCAN; Mean Corpuscular HGB Conc 32.2 g/dl (31.0-35.0); Mean Corpuscular Hemoglobin 29.2 pg (27.0-33.0); Mean Corpuscular Volume 90.7 fL (80.0-98.0); Mean Platelet Volume 11.1 fL (9.4-12.3); Monocytes Absolute Auto 0.1 X10*3/uL (0.1-1.2); Monocytes Percent Auto 0.7 % (2-11); Neutrophils Absolute Auto 9.3 x10*3/uL (2.0-8.3); Neutrophils Percent Auto 94.7 % (45-73); Platelet Count 241 X10*3/uL (160-400); Red Blood Count 5.27 X10*6/uL (4.20-5.50); Red Cell Distribution Width 13.7 % (11.0-16.0); SCAN SMEAR FLAG 1; White Blood Count 9.8 X10*3/uL (4.8-10.8)
--- NOTE | 2022-10-21 06:34 | PM.IMHP ---
History of Present Illness Date of Service: 10/21/22 Chief Complaint: Shortness of breath 61-year-old female with past medical history of COPD/asthma, GERD, depression, diabetes, HLD, migraine headache, MARY noncompliant with CPAP history of aorti valve replacement, comes into the hospital complaints of shortness of breath, cough, sputum production for the past 4 days. Denies any fever, no orthopnea, no PND, no lower extremity edema. No abdominal pain nausea or vomiting, no chest pain, no urinary symptoms and no lower extremity edema On arrival to the ED patient hemodynamically stable with slight tachypnea satting 95% on room air Labs are significant for WBC count of 11.8, pH of 7.46, no CO2 retention, BNP of 323, Chest x-ray shows no active cardiopulmonary disease Patient started on steroids, will be admitted for further management Review of Systems Review of Systems: Yes all other systems are reviewed and are negative [facility] Medical History Allergic rhinitis Aortic valve endocarditis Asthma Bronchitis COPD (chronic obstructive pulmonary disease) COPD (chronic obstructive pulmonary disease) COPD (chronic obstructive pulmonary disease) COPD exacerbation Family history of GERD Fibromyalgia GERD (gastroesophageal reflux disease) History of arthritis History of depression History of enuresis History of urinary incontinence Hx of allergic rhinitis Hx of cardiac pacemaker Hx of coronary artery disease Hx of diabetes mellitus Hx of drug abuse Hx of essential hypertension Hx of hyperlipidemia Hx of migraines Hx of osteoarthritis Hx of pilonidal cyst MARY (obstructive sleep apnea) MARY on CPAP Overactive bladder Reactive airways dysfunction syndrome Rheumatoid arthritis Surgical History History of cystoscopy History of epidermal inclusion cyst excision History of hysterectomy History of surgical removal of pilonidal cyst Hx laparoscopic cholecystectomy Hx of aortic valve replacement Hx of bilateral cataract extraction Hx of colonoscopy Social History Household Members: None Housing: Apartment Do you presently have visiting nurse or other home services: No Alcohol intake: never Patient Tobacco Use Status: Refuse Tobacco use screen Tobacco use type: Cigarette Cigarettes Per Day: 2 Smoked in Last 30 Days: Yes Use of substances other than those prescribed or required for medical reasons: No Advance Directives: Yes Advance Directives on File: Yes Advance Directives Date on File: 11/08/21 Patient : No service: No Current occupational status: unemployed and disabled Meds Allergies Allergy/AdvReac Type Severity Reaction Status Date / Time latex [LATEX] Allergy Severe DIFFICULTY Verified 08/22/22 15:58 BREATHING aspirin [Aspirin] Allergy Intermediate ITCHING, Verified 08/22/22 15:58 itchiness ciprofloxacin [From CIPRO] Allergy Intermediate DIAPHORESIS Verified 08/22/22 15:58 /PURITIS Penicillins [PENICILLINS] Allergy Unknown UNKNOWN Verified 08/22/22 15:58 HEMALATHA Inhibitors AdvReac Intermediate COUGH Verified 08/22/22 15:58 [HEMALATHA INHIBITORS] Active Medications: Current Medications Albuterol/Ipratropium (Albuterol/Iprat 2.5/0.5mg 3 Ml Ampul.Neb) 3 ml INHALE RQ4H PRN PRN Reason: Shortness of Breath/Wheezing Last Admin: 10/21/22 06:01 Dose: 3 ml Albuterol/Ipratropium (Albuterol/Iprat 2.5/0.5mg 3 Ml Ampul.Neb) 3 ml INHALE RQ4H WHILE AWAKE PATTI Enoxaparin Sodium (Enoxaparin Sodium 40 Mg/0.4 Ml Syringe) 40 mg SUBCUT Q24H [facility] Last Admin: 10/21/22 06:27 Dose: 40 mg Methylprednisolone Sodium Succinate (Methylprednisolone Sod Succ 40 Mg/Ml Vial) 40 mg IVPUSH Q12H [facility]TI Sodium Chloride (0.9 % Sodium Chloride Flush 3 Ml Syringe) 3 ml IVFLUSH QSHIFT PATTI Home Medications Medication Instructions Recorded Confirmed Last Taken Type acetaminophen 650 mg 650 mg PO Q8H PRN pain 07/03/22 10/21/22 Unknown History tablet,extended release albuterol sulfate 90 mcg/actuation 2 puff inhalation Q4H PRN wheezing 07/03/22 10/21/22 Unknown History aerosol inhaler (Ventolin HFA) amitriptyline 25 mg tablet 25 mg PO BEDTIME 07/03/22 10/21/22 Unknown History bisacodyl 5 mg tablet,delayed 10 mg PO BEDTIME 07/03/22 10/21/22 Unknown History release calcium carbonate 600 mg-vitamin 1 tab PO QAM 07/03/22 10/21/22 Unknown History D3 10 mcg (400 unit) tablet clopidogrel 75 mg tablet 75 mg PO DAILY 07/03/22 10/21/22 Unknown History cyanocobalamin (vitamin B-12) 1,000 mcg PO QAM 07/03/22 10/21/22 Unknown History 1,000 mcg tablet folic acid 1 mg tablet 1 mg PO DAILY 07/03/22 10/21/22 Unknown History gabapentin 100 mg capsule 100 mg PO TID 07/03/22 10/21/22 Unknown History hydrochlorothiazide 12.5 mg tablet 12.5 mg PO QAM 07/03/22 10/21/22 Unknown History melatonin 5 mg tablet 5 mg PO BEDTIME PRN insomnia 07/03/22 10/21/22 Unknown History montelukast 10 mg tablet 10 mg PO QPM 07/03/22 10/21/22 Unknown History sertraline 50 mg tablet 50 mg PO QAM 07/03/22 10/21/22 Unknown History Physical Exam Vital Signs and Narrative: Vital Signs: Last Vital Signs Temp 98.7 F 10/21/22 05:21 Pulse 54 10/21/22 05:21 Resp 21 H 10/21/22 05:21 BP 146/68 H 10/21/22 05:21 Pulse Ox 92 10/21/22 05:21 O2 Del Method CPAP 10/21/22 05:21 O2 Flow Rate 2 10/21/22 00:00 BMI result Body Mass Index 28.9 Const: Other: When I saw the patient she was on CPAP sleeping, arousable, answers questions appropriately General: cooperative and no acute distress Orientation/consciousness: patient oriented x3 Eyes: General: appearance normal, both eyes and all related structures Resp: Other: Has significant wheezing on expiration Effort & Inspection: normal respiratory effort Cardio: Rate: regular rate Rhythm: regular rhythm GI: Palpation (GI): Soft to palpation Auscultation: normal bowel sounds Skin: General skin exam: no rashes or lesions noted Neuro: General: patient oriented x3 Cognition (Neuro): normal cognition Extrem: General: Yes normal to inspection and Yes no pedal edema Results Labs 10/21/22 06:10 10/21/22 00:27 Labs: Laboratory Results - last 24 hr 10/20/22 10/21/22 10/21/22 23:52 00:27 00:27 MCV 90.2 MCH 29.7 MCHC 32.9 RDW 13.6 Plt Count 265 D MPV 9.8 Immature Gran % (Auto) 0.2 Neut % (Auto) 67.6 Lymph % (Auto) 18.9 L [place] % (Auto) 8.1 Eos % (Auto) 4.9 H Baso % (Auto) 0.3 Lymph # (Auto) 2.2 [place] # (Auto) 1.0 Eos # (Auto) 0.6 H Baso # (Auto) 0.0 Abs Immat Gran (auto) 0.02 Absolute Neuts (auto) 8.0 Absolute Nucleated RBC 0.000 Nucleated RBC % (auto) 0.0 PT INR APTT O2 Saturation 99.0 ABG pH at Pt Temp 7.46 H ABG pCO2 at Pt Temp 39 ABG pO2 at Pt Temp 109 H ABG HCO3 28 H ABG Base Excess (Actual) 4.1 Anion Gap 13 Estim Creat Clear Calc 55.1 Estimated GFR > 60 Random Glucose 125 H Lactic Acid Calcium 10.0 Total Bilirubin 0.4 AST 20 ALT 16 Alkaline Phosphatase 78 B-Natriuretic Peptide Total Protein 7.1 Albumin 4.0 Urine Color Urine Appearance Urine pH Ur Specific [place] Urine Protein Urine Glucose (UA) Urine Ketones Urine Blood Urine Nitrite Ur Leukocyte Esterase Urine RBC Urine WBC Ur Squamous Epith Cells Urine Bacteria Hyaline Casts COVID-19 ([facility]) COVID-19 Clin Com 10/21/22 10/21/22 10/21/22 00:27 00:27 00:27 MCV MCH MCHC RDW Plt Count MPV Immature Gran % (Auto) Neut % (Auto) Lymph % (Auto) [place] % (Auto) Eos % (Auto) Baso % (Auto) Lymph # (Auto) [place] # (Auto) Eos # (Auto) Baso # (Auto) Abs Immat Gran (auto) Absolute Neuts (auto) Absolute Nucleated RBC Nucleated RBC % (auto) PT 11.8 INR 1.0 APTT 31.6 O2 Saturation ABG pH at Pt Temp ABG pCO2 at Pt Temp ABG pO2 at Pt Temp ABG HCO3 ABG Base Excess (Actual) Anion Gap Estim Creat Clear Calc Estimated GFR Random Glucose Lactic Acid 0.8 Calcium Total Bilirubin AST ALT Alkaline Phosphatase B-Natriuretic Peptide Total Protein Albumin Urine Color Urine Appearance Urine pH Ur Specific [place] Urine Protein Urine Glucose (UA) Urine Ketones Urine Blood Urine Nitrite Ur Leukocyte Esterase Urine RBC Urine WBC Ur Squamous Epith Cells Urine Bacteria Hyaline Casts COVID-19 ([facility]) Negative COVID-19 Clin Com See Note 10/21/22 10/21/22 10/21/22 00:27 00:58 06:10 MCV 90.7 MCH 29.2 MCHC 32.2 RDW 13.7 Plt Count 241 MPV 11.1 Immature Gran % (Auto) Neut % (Auto) Lymph % (Auto) [place] % (Auto) Eos % (Auto) Baso % (Auto) Lymph # (Auto) [place] # (Auto) Eos # (Auto) Baso # (Auto) Abs Immat Gran (auto) Absolute Neuts (auto) Absolute Nucleated RBC Nucleated RBC % (auto) PT INR APTT O2 Saturation ABG pH at Pt Temp ABG pCO2 at Pt Temp ABG pO2 at Pt Temp ABG HCO3 ABG Base Excess (Actual) Anion Gap Estim Creat Clear Calc Estimated GFR Random Glucose Lactic Acid Calcium Total Bilirubin AST ALT Alkaline Phosphatase B-Natriuretic Peptide 323 H Total Protein Albumin Urine Color Yellow Urine Appearance Clear Urine pH 5.5 Ur Specific [place] 1.015 Urine Protein 30 (1+) H Urine Glucose (UA) Negative Urine Ketones Negative Urine Blood Trace H Urine Nitrite Negative Ur Leukocyte Esterase Negative Urine RBC 0-2 Urine WBC 0-5 Ur Squamous Epith Cells 0-2 Urine Bacteria None Seen Hyaline Casts 0-2 COVID-19 ([facility]) COVID-19 Clin Com Imaging Radiologist's Impressions: Impressions Chest X-Ray 10/21/22 00:04 IMPRESSION: No active cardiopulmonary disease. Assessment and Plan (1) Acute exacerbation of COPD with asthma: Status: Resolved Plan 61-year-old female with history of asthma/COPD comes into the hospital with cough, sputum production, found to be in COPD exacerbation # acute COPD exacerbation - will treat with IV steroids, DuoNebs, - monitor respiratory status # hypertension - stable - continue antihypertensives # MARY - continue CPAP at bedtime # mood disorder - continue mood stabilizers DVT prophylaxis: Lovenox Given patient's need for IV steroids, DuoNeb around the clock, in close monitoring of respiratory status patient require minimum 2 nights inpatient hospital stay for further management and monitoring Time Spent With Patient Time: Total time managing care of this patient today ____ minutes. Quality Stroke Does the patient have a stroke diagnosis?: No VTE Prior VTE?: No VTE Risk Level:: Medical - moderate - high VTE Device Contraindication: Treatment Not Indicated VTE Drug Contraindication: N/A - Med Ordered
[2022-10-21 06:51] LABS: Anion Gap 15 (12-20); Blood Urea Nitrogen 16 mg/dL (9-16); Calcium 9.8 mg/dL (8.4-10.2); Carbon Dioxide 23 mmol/L (22-29); Chloride 106 mmol/L (96-108); Creatinine Clr Calc Pharmacy 64.3; Estimated Glomerular Filt Rate > 60; Glucose Random 154 mg/dL (60-115); Potassium 3.8 mmol/L (3.3-5.1); Sodium 140 mmol/L (135-145)
[2022-10-21 06:56] LABS: SLIDE REVIEW VERIFIED
--- NOTE | 2022-10-21 07:23 | PC.NURSE ---
pt ambulating to bathroom; steady gait. bilat wheezing upon auscultating lung sounds. pt denies feeling sob; respirations even and unlabored; sats 92% RA. pt refusing o2 as shes eating breakfast at this time. all needs met at this time; call basilio within reach.
--- NOTE | 2022-10-21 08:03 | PHA.MEDREC ---
Pharmacy Consult ? Medication Reconciliation Pharmacy has completed the medication reconciliation. Utilized set illustrator services. Spoke to patient to confirm meds. Patient endorses that they are fully compliant with all medications.
[2022-10-21] MEDS: Calcium + Vitamin D 250 MG TABLET 500 MG PO (08:36)
[2022-10-21] MEDS: hydroCHLOROthiazide 12.5 MG TABLET PO (08:36)
[2022-10-21] MEDS: Sertraline HCL 50 MG TABLET PO (08:36)
[2022-10-21] MEDS: Folic Acid 1 MG TABLET PO (08:36)
[2022-10-21] MEDS: Clopidogrel Bisulfate 75 MG TABLET PO (08:36)
[2022-10-21] MEDS: Gabapentin 100 MG CAPSULE PO ×3 (08:36→21:19)
[2022-10-21] MEDS: 0.9 % Sodium Chloride Flush 3 ML SYRINGE IVFLUSH ×3 (08:38→21:20)
[2022-10-21] MEDS: Magnesium Sulfate/H2O 2 GM/50 ML PIGGYBACK IV (09:37)
--- NOTE | 2022-10-21 09:39 | PC.NURSE ---
md to bedside. pt medicated per apr. respiratory called for breathing treatment per order.
[2022-10-21] MEDS: methylPREDNISolone Sod Succ 40 MG/ML VIAL IVPUSH ×2 (12:49→23:45)
--- NOTE | 2022-10-21 12:54 | PC.NURSE ---
RN-RN report given to S3, medicated per MAR, vss - maintaining O2 of 96% on RA, resting quietly.
--- NOTE | 2022-10-21 16:05 | MHC.CM.PN ---
PT LIVES ALONE AND HAS DAILY [employer] SHE USES A CANE AND TUB BENCH SHE HAS A HCP ON FILE PCP: ALLYSON ROSE AT [facility] DCP: HOME RESUME [employer] BLS TRANSPORT
[2022-10-21] MEDS: Amitriptyline HCl 25 MG TABLET PO (21:19)
[2022-10-21] MEDS: Montelukast Sodium 10 MG TABLET PO (21:19)
[2022-10-21] MEDS: bisacodyL 5 MG TABLET.DR 10 MG PO (21:19)
--- NOTE | 2022-10-22 02:18 | PC.NURSE ---
Critical lab result came at 0203 of blood culture positive for gram positive cocci, 1 set out of 2 bottle, Dr. Coe was notifed.
[2022-10-22] MEDS: Enoxaparin Sodium 40 MG/0.4 ML SYRINGE SUBCUT (02:36)
[2022-10-22] MEDS: vancomycin HCL 1,500 MG in 0.9 % Sodium Chloride 500 ML 333.33 MG IV (02:45)
[2022-10-22 03:11] VITALS: BP 123/68; PULSE 63; RESP 16; TEMP 36.3; O2SAT 94
--- NOTE | 2022-10-22 07:22 | PHA.PROG ---
Admission Date/Time: October 21, 2022 02:19 Indication: RESPIRATORY Weight in k.2 kg Adjusted body weight in Kg: [place] body weight in Kg: Obesity Dosing Indication % IBW: 29.0 Serum Creatinine - Last 168 Hours 10/21/22 10/21/22 00:27 06:10 Creatinine 0.90 0.77 Estimated CrCl and GFR - Last 168 Hours 10/21/22 10/21/22 00:27 06:10 Estim Creat Clear Calc 55.1 64.3 Estimated GFR > 60 > 60 Vancomycin Loading Dose: 1500 MG Current Vancomycin Dosing Regimen: 750 Q12 Vancomycin Monitoring using AUC goal of 400 - 600 range with trough as surrogate marker:497 Date and Time for next Vancomycin Level to be drawn: 10/23 @0900 Pharmacist Comments on Vancomycin Plan: Vancomycin dosing will take advantage of [employer] as a clinical decision support tool that uses Bayesian modeling to calculate individual patient's pharmacokinetic parameters and forecast the patient's drug concentration time course with the target goal AUC 24 range of 400 - 600 mg/L/hr.
--- NOTE | 2022-10-22 07:24 | PM.DS ---
DS: Providers Provider Date of Service: 10/22/22 Date of admission: 10/21/22 02:19 Date of discharge: 10/22/22 Primary care physician: [facility] Attending physician on discharge: Jenn Littlejohn Discharging clinician: Jenn Littlejohn DS: Diagnosis Discharge Diagnosis (1) Acute exacerbation of COPD with asthma: Status: Resolved DS: Summary Hospital Course Hospital Course: 61-year-old female with past medical history of COPD/asthma, GERD, depression, diabetes, HLD, migraine headache, MARY noncompliant with CPAP history of aorti valve replacement, comes into the hospital complaints of shortness of breath, cough, sputum production? for the past 4 days.? Denies any fever, no orthopnea, no PND, no lower extremity edema.? No abdominal pain nausea or vomiting, no chest pain, no urinary symptoms and no lower extremity edema On arrival to the ED patient hemodynamically stable with slight tachypnea satting 95% on room air Labs are significant for WBC count of 11.8, pH of 7.46, no CO2 retention, BNP of 323, Chest x-ray shows no active cardiopulmonary disease Patient started on steroids, will be admitted for further management. Hospital course: Patient was admitted for COPD exacerbation-started on nebs steroids-shortness of breath seems to be improved , sats are 94% on room air. Feeling much better. Patient will be going home with p.o. steroids 4 days. Follow-up PCP outpatient. Time Spent with Patient Time attestation: Total time managing care of this patient today ____ minutes. Discharge coordination time: Greater than 30 minutes Quality: Safe Use of Opioids Does Pt have an Active Cancer Diagnosis on the Problem List?: No Quality: Stroke Does the patient have a stroke diagnosis?: No Physical Exam Vital Signs: Vital Signs: Last Vital Signs Temp 97.3 F 10/22/22 03:11 Pulse 63 10/22/22 03:11 Resp 16 10/22/22 03:11 BP 123/68 10/22/22 03:11 Pulse Ox 94 10/22/22 03:11 O2 Del Method Room Air 10/22/22 03:11 O2 Flow Rate 2 10/21/22 00:00 BMI result Body Mass Index 29.0 Worse Appearance: Alert.? Oriented X3.? not in distress.? cvs: [id number], [id number] , no murmur res: clear to auscultation ,no rhonchii or wheezing abd: no rebound or guarding ,nt, bs present. ext pulses present , no cyanosis . neuro: axo3 , nonfocal. DS: Data Data Completed and Pending Labs on day of discharge: Preliminary micro results at discharge 10/21/22 00:27 Blood Culture - Preliminary Blood - Venous Prelim: GPC Gram Stain only 10/21/22 00:25 Blood Culture - Preliminary Blood - Venous No growth after 24 hours. Imaging Chest x-ray: Radiologist's impression: ITS Impressions Chest X-Ray 10/21/22 00:04 IMPRESSION: No active cardiopulmonary disease. Discharge Plan Discharge Anticipated Discharge Date/Time: 10/22/22 07:20 Patient Disposition: Home, Self-Care Discharge Diagnosis: copd excerebation Referrals: [facility] [Primary Care Provider] - 1 Week Discharge Medications: New prednisone 20 mg tablet 40 mg PO DAILY Qty: 8 0RF Continued azithromycin 250 mg tablet 250 mg PO MOWEFR@0900 fluticasone propion-salmeterol [Advair Diskus] 500-50 mcg/dose blister with device 1 ea INHALATION BID Spiriva with HandiHaler 18 mcg capsule, w/inhalation device 1 cap inhalation DAILY acetaminophen 650 mg tablet extended release 650 mg PO Q8H PRN (Reason: pain) montelukast 10 mg tablet 10 mg PO BEDTIME bisacodyl 5 mg tablet,delayed release (DR/EC) 10 mg PO BEDTIME gabapentin 100 mg capsule 100 mg PO TID sertraline 50 mg tablet 50 mg PO DAILY calcium carbonate-vitamin D3 600 mg-10 mcg (400 unit) tablet 1 tab PO DAILY hydrochlorothiazide 12.5 mg tablet 12.5 mg PO DAILY melatonin 5 mg tablet 5 mg PO BEDTIME PRN (Reason: insomnia) albuterol sulfate [Ventolin HFA] 90 mcg/actuation HFA aerosol inhaler 2 puff inhalation Q4H PRN (Reason: wheezing) clopidogrel 75 mg tablet 75 mg PO DAILY amitriptyline 25 mg tablet 25 mg PO BEDTIME folic acid 1 mg tablet 1 mg PO DAILY cyanocobalamin (vitamin B-12) 1,000 mcg tablet 1,000 mcg PO DAILY Discharge Orders: Discharge Order (Routine); Ordered 10/22/22 Ordered By: Jenn Littlejohn Diet: Advance to usual diet Activity on Discharge: As tolerated Stand Alone Forms: Patient Portal Discharge page Care Plan Goals: Patient was admitted for COPD exacerbation-started on nebs steroids-shortness of breath seems to be improved , sats are 94% on room air. Feeling much better. Patient will be going home with p.o. steroids 4 days. Follow-up PCP outpatient. Health Concerns: As above. Plan of Treatment: As above. Assessment: As above.
[2022-10-22 07:28] VITALS: BP 122/60; PULSE 70; RESP 20; TEMP 36.3; O2SAT 93
[2022-10-22] MEDS: hydroCHLOROthiazide 12.5 MG TABLET PO (08:27)
[2022-10-22] MEDS: Calcium + Vitamin D 250 MG TABLET 500 MG PO (08:27)
[2022-10-22] MEDS: Clopidogrel Bisulfate 75 MG TABLET PO (08:27)
[2022-10-22] MEDS: Sertraline HCL 50 MG TABLET PO (08:27)
[2022-10-22] MEDS: Gabapentin 100 MG CAPSULE PO ×3 (08:28→20:33)
[2022-10-22] MEDS: Folic Acid 1 MG TABLET PO (08:28)
[2022-10-22] MEDS: 0.9 % Sodium Chloride Flush 3 ML SYRINGE IVFLUSH ×3 (08:31→19:44)
--- NOTE | 2022-10-22 10:30 | P.PNIM_ITS ---
Subjective Subjective Date of Service: 10/22/22 Interval History: copd excerebation, blood culture positice -gram postive cocci/clusters Review of Systems sob seems improving , no fever or cough Physical Exam Vital Signs: Vital Signs: Last Vital Signs Temp 97.3 F 10/22/22 07:28 Pulse 70 10/22/22 07:28 Resp 20 10/22/22 07:28 BP 122/60 10/22/22 07:28 Pulse Ox 93 10/22/22 07:28 O2 Del Method Room Air 10/22/22 07:28 O2 Flow Rate 2 10/21/22 00:00 BMI result Body Mass Index 29.0 Appearance: Alert.? Oriented X3.? not in distress.? cvs: rrr, [id number] , no murmur res: air entry improving,few rhonchii scattered abd: no rebound or guarding ,nt, bs present. ext pulses present , no cyanosis . neuro: axo3 , nonfocal. Objective Data Active Medications Albuterol/Ipratropium (Albuterol/Iprat 2.5/0.5mg 3 Ml Ampul.Neb) 3 ml INHALE RQ4H PRN PRN Reason: Shortness of Breath/Wheezing Last Admin: 10/21/22 23:22 Dose: 3 ml Documented By: WANDA Albuterol/Ipratropium (Albuterol/Iprat 2.5/0.5mg 3 Ml Ampul.Neb) 3 ml INHALE RQ4H WHILE AWAKE [facility] Last Admin: 10/22/22 08:00 Dose: Not Given Documented By: DEREK Non-Admin Reason: Patient Refused Amitriptyline HCl (Amitriptyline Hcl 25 Mg Tablet) 25 mg PO BEDTIME [facility] Last Admin: 10/21/22 21:19 Dose: 25 mg Documented By: PENELOPEILJany Bisacodyl (Bisacodyl 5 Mg Tablet.) 10 mg PO BEDTIME [facility] Last Admin: 10/21/22 21:19 Dose: 10 mg Documented By: MARGO Calcium Carbonate/Cholecalciferol (Calcium + Vitamin D 250 Mg Tablet) 500 mg PO DAILY [facility] Last Admin: 10/22/22 08:27 Dose: 500 mg Documented By: ANTELMO Clopidogrel Bisulfate (Clopidogrel Bisulfate 75 Mg Tablet) 75 mg PO DAILY [facility] Last Admin: 10/22/22 08:27 Dose: 75 mg Documented By: ANTELMO Enoxaparin Sodium (Enoxaparin Sodium 40 Mg/0.4 Ml Syringe) 40 mg SUBCUT Q24H [facility] Last Admin: 10/22/22 02:36 Dose: 40 mg Documented By: MARGO Folic Acid (Folic Acid 1 Mg Tablet) 1 mg PO DAILY [facility] Last Admin: 10/22/22 08:28 Dose: 1 mg Documented By: ANTELMO Gabapentin (Gabapentin 100 Mg Capsule) 100 mg PO TID [facility] Last Admin: 10/22/22 08:28 Dose: 100 mg Documented By: ANTELMO Hydrochlorothiazide (Hydrochlorothiazide 12.5 Mg Tablet) 12.5 mg PO DAILY [facility]; Protocol Last Admin: 10/22/22 08:27 Dose: 12.5 mg Documented By: ANTELMO Vancomycin HCl 750 mg/ Sodium (Chloride) 265 mls @ 265 mls/hr IV Q12H [facility] Melatonin (Melatonin 3 Mg Tablet) 6 mg PO BEDTIME PRN PRN Reason: insomnia Methylprednisolone Sodium Succinate (Methylprednisolone Sod Succ 40 Mg/Ml Vial) 40 mg IVPUSH Q12H [facility] Last Admin: 10/21/22 23:45 Dose: 40 mg Documented By: MARGO Montelukast Sodium (Montelukast Sodium 10 Mg Tablet) 10 mg PO BEDTIME [facility] Last Admin: 10/21/22 21:19 Dose: 10 mg Documented By: MARGO Pharmacy Consult (Consult Rx Vancomycin Dosing) 1 each MISCELLANE DAILY PRN PRN Reason: Consult order Sertraline HCl (Sertraline Hcl 50 Mg Tablet) 50 mg PO DAILY [facility] Last Admin: 10/22/22 08:27 Dose: 50 mg Documented By: ANTELMO Sodium Chloride (0.9 % Sodium Chloride Flush 3 Ml Syringe) 3 ml IVFLUSH QSHIFT [facility] Last Admin: 10/22/22 08:31 Dose: 3 ml Documented By: ANTELMO Labs 10/21/22 06:10 10/21/22 06:10 Microbiology Microbiology Results: Microbiology 10/21/22 00:27 Blood Culture - Preliminary Blood - Venous Prelim: GPC Gram Stain only 10/21/22 00:25 Blood Culture - Preliminary Blood - Venous No growth after 24 hours. Assessment and Plan (1) Acute exacerbation of COPD with asthma: Status: Resolved Assessment and Plan: 59-year-old female presents with shortness of breath productive cough consistent with COPD exacerbation. Admitted to telemetry secondary to vague complaints of chest pain. Troponins have been negative. Seen by Cardiology; chest pain pulmo nary in nature no need for workup. There were no acute events overnight 1. COPD exacerbation Continue pulsed dose methylprednisolone today switched to p.o. in a.m.. DuoNebs q.6 hours p.r.n. azithromycin given productive cough blood cultures positive (02/27 )-repeat blood cultures ordered overnight on vanco, vanco trough moniterng as per pharmacy. 2. Dm 2 Continue sliding scale as ordered. Adjust as indicated 3. AVR Continue Plavix . DVT prophylaxis with Lovenox. inpatient need -copd excerebation, positive blood culture-needs IV antibiotics, steroids, nebs. Time Spent With Patient Time: Total time managing care of this patient today ____ minutes. Quality Stroke Does the patient have a stroke diagnosis?: No VTE Prior VTE?: No VTE Risk Level:: Medical - moderate - high VTE Device Contraindication: Treatment Not Indicated VTE Drug Contraindication: N/A - Med Ordered
[2022-10-22] MEDS: vancomycin HCL 750 MG in 0.9 % Sodium Chloride 250 ML 265 MG IV ×2 (10:58→23:02)
[2022-10-22] MEDS: methylPREDNISolone Sod Succ 40 MG/ML VIAL IVPUSH (12:07)
[2022-10-22 12:24] VITALS: PULSE 69; RESP 18; O2SAT 98
[2022-10-22] MEDS: Albuterol/Iprat 2.5/0.5MG 3 ML AMPUL.NEB INHALE ×2 (12:24→18:42)
[2022-10-22 15:56] VITALS: BP 149/87; PULSE 68; RESP 20; TEMP 36.1; O2SAT 95
[2022-10-22 18:42] VITALS: PULSE 85; RESP 20; O2SAT 95
[2022-10-22 19:31] VITALS: BP 135/84; PULSE 73; RESP 20; TEMP 36.7; O2SAT 95
[2022-10-22] MEDS: Montelukast Sodium 10 MG TABLET PO (20:33)
[2022-10-22] MEDS: Amitriptyline HCl 25 MG TABLET PO (20:33)
[2022-10-22] MEDS: bisacodyL 5 MG TABLET.DR 10 MG PO (20:33)
[2022-10-23] VITALS (8 sets, daily range): BP systolic 130–155; BP diastolic 63–95; PULSE 62–86; RESP 16–20; TEMP 36.3–37.1; O2SAT 94–100
[2022-10-23] MEDS: methylPREDNISolone Sod Succ 40 MG/ML VIAL IVPUSH ×2 (00:13→11:48)
[2022-10-23] MEDS: Enoxaparin Sodium 40 MG/0.4 ML SYRINGE SUBCUT (02:21)
[2022-10-23 05:57] LABS: Creatinine Clr Calc Pharmacy 63.8; Estimated Glomerular Filt Rate > 60
--- NOTE | 2022-10-23 07:00 | CA_ITS ---
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 There is mildly increased left ventricular wall thickness. The left ventricular systolic function is low normal. The visually estimated ejection fraction is between 50-55%. - Normal right ventricular cavity size and systolic function. There is a pacemaker wire seen in the right ventricle. - Small mobile mass attached to the pacemaker lead in the right atrium. Differentials thrombus vs vegetation. - There is moderate to severe aortic valve stenosis. - Significantly elevated right atrial pressure. Mild pulmonary hypertension is present. Findings Left Ventricle Mildly increased left ventricular cavity size. There is mildly increased left ventricular wall thickness. The left ventricular systolic function is low normal. The visually estimated ejection fraction is between 50-55%. There is paradoxical septal motion consistent with a right ventricular pacemaker. Diastolic function is indeterminate on the basis of available data. Right Ventricle Normal right ventricular cavity size and systolic function. There is a pacemaker wire seen in the right ventricle. Atria The left atrium is mildly dilated. The right atrium is mildly dilated. Small mobile mass attached to the pacemaker lead in the right atrium. Differentials thrombus vs vegetation. Aortic Valve The aortic valve was not well visualized. There is moderate calcification of the aortic valve. There is moderate to severe aortic valve stenosis. The peak aortic velocity is 3.47 m/s. The mean gradient is 26 mmHg. The aortic valve area is 0.86 cm2. There is trace (trivial) aortic valve regurgitation. Mitral Valve The mitral valve appears normal. There is trace mitral valve regurgitation. There is no mitral valve stenosis. Pulmonic Valve The pulmonic valve is likely normal. There is no pulmonic valve regurgitation. Tricuspid Valve Normal tricuspid valve structure. There is trace tricuspid valve regurgitation. The right ventricular systolic pressure is 39 mmHg. Significantly elevated right atrial pressure. Mild pulmonary hypertension is present. Great Vessels All visible segments of the aorta are normal in size. The visualized portions of the pulmonary artery and branches are normal. Venous The inferior vena cava is dilated and collapses less than 50% with inspiration. Pericardium/Pleural There is no evidence of pericardial effusion. Measurements 2D Linear Measurements IVSd: 1.00 0.6-0.9/0.6-1.0 cm LVIDd: 5.50 3.9-5.3/4.2-5.9 cm LVIDd Index: 3.44 2.4-3.2/2.2-3.1 cm/m2 LVIDs: 3.60 2.0-3.6 cm LVPWd: 1.00 0.7-1.1 cm LA Diam: 4.30 2.7-3.8/3.0-4.0 cm LAIDs Index: 2.69 1.5-2.3 cm/m2 LV Mass: 265.72 67-162/88-224 g LV Mass Index: 166.08 43-95/49-115 g/m2 LVOT Diam: 2.00 3.0+(-)1.3 cm Mitral Valve MV Pk E: 1.35 E'Lateral: 9.02 E/E' Lat: 15.00 Aortic Valve AoV Pk Trever: 3.47 AoV Mn Trever: 2.39 AoV VTI: 0.70 AoV Pk Grad: 48.00 Aov Mn Grad: 26.00 CHARLY Cont.VTI: 0.86 LVOT LVOT Pk Trever: 0.95 LVOT Mn Trever: 0.67 LVOT VTI: 0.19 LVOT Pk Grad: 4.00 LVOT Mn Grad: 2.00 LVOT Diam: 2.00 LVOT Area: 3.14 Diastolic Function MV Pk E: 1.35 E' Laterial: 9.02 E/E' Lat: 15.00 Right Ventricle TAPSE (mm): 18.90 Tricuspid Valve TR Pk Trever: 2.44 TR Pk Grad: 24.00 RA Press: 15.00 RVSP: 39.00 Great Vessels Aorta Sinus of Valsalva: 2.70 2.0-3.5 cm Ao Asc: 2.40 2.1-3.4 cm Pulmonary Valve PV Pk Trever: 1.40 Peak PV Grad: 8.00 Updated in Other Vendor System with Status of Final Tony Borrero MD electronically signed on 10/23/2022 3:17:46 PM with status of Final
[2022-10-23] MEDS: hydroCHLOROthiazide 12.5 MG TABLET PO (08:28)
[2022-10-23] MEDS: Folic Acid 1 MG TABLET PO (08:29)
[2022-10-23] MEDS: 0.9 % Sodium Chloride Flush 3 ML SYRINGE IVFLUSH ×3 (08:29→19:55)
[2022-10-23] MEDS: Clopidogrel Bisulfate 75 MG TABLET PO (08:29)
[2022-10-23] MEDS: Gabapentin 100 MG CAPSULE PO ×3 (08:29→20:33)
[2022-10-23] MEDS: Calcium + Vitamin D 250 MG TABLET 500 MG PO (08:29)
[2022-10-23] MEDS: Sertraline HCL 50 MG TABLET PO (08:29)
[2022-10-23] MEDS: Albuterol/Iprat 2.5/0.5MG 3 ML AMPUL.NEB INHALE ×3 (11:07→19:35)
--- NOTE | 2022-10-23 11:22 | HO.PM.IMPN ---
Subjective Subjective Date of Service: 10/23/22 Interval History: copd excerebation, blood culture positice -gram postive cocci/clustersx2 Review of Systems sob improved denies any fever or chills or cough Physical Exam Vital Signs: Vital Signs: Last Vital Signs Temp 97.3 F 10/23/22 07:34 Pulse 82 10/23/22 11:07 Resp 18 10/23/22 11:07 BP 136/73 10/23/22 07:34 Pulse Ox 94 10/23/22 07:34 O2 Del Method Room Air 10/23/22 07:34 O2 Flow Rate 2 10/21/22 00:00 BMI result Body Mass Index 29.0 Appearance: Alert.? Oriented X3.? not in distress.? cvs: rrr, [id number] , no murmur res: air entry improving,few rhonchii scattered abd: no rebound or guarding ,nt, bs present. ext pulses present , no cyanosis . neuro: axo3 , nonfocal. Objective Data Active Medications Albuterol/Ipratropium (Albuterol/Iprat 2.5/0.5mg 3 Ml Ampul.Neb) 3 ml INHALE RQ4H PRN PRN Reason: Shortness of Breath/Wheezing Last Admin: 10/21/22 23:22 Dose: 3 ml Documented By: WANDA Albuterol/Ipratropium (Albuterol/Iprat 2.5/0.5mg 3 Ml Ampul.Neb) 3 ml INHALE RQ4H WHILE AWAKE [facility] Last Admin: 10/23/22 11:07 Dose: 3 ml Documented By: CLEM Amitriptyline HCl (Amitriptyline Hcl 25 Mg Tablet) 25 mg PO BEDTIME [facility] Last Admin: 10/22/22 20:33 Dose: 25 mg Documented By: BRITTANY Bisacodyl (Bisacodyl 5 Mg Tablet.) 10 mg PO BEDTIME [facility] Last Admin: 10/22/22 20:33 Dose: 10 mg Documented By: BRITTANY Calcium Carbonate/Cholecalciferol (Calcium + Vitamin D 250 Mg Tablet) 500 mg PO DAILY [facility] Last Admin: 10/23/22 08:29 Dose: 500 mg Documented By: ANIYA Clopidogrel Bisulfate (Clopidogrel Bisulfate 75 Mg Tablet) 75 mg PO DAILY [facility] Last Admin: 10/23/22 08:29 Dose: 75 mg Documented By: ANIYA Enoxaparin Sodium (Enoxaparin Sodium 40 Mg/0.4 Ml Syringe) 40 mg SUBCUT Q24H [facility] Last Admin: 10/23/22 02:21 Dose: 40 mg Documented By: BRITTANY Folic Acid (Folic Acid 1 Mg Tablet) 1 mg PO DAILY [facility] Last Admin: 10/23/22 08:29 Dose: 1 mg Documented By: ANIYA Gabapentin (Gabapentin 100 Mg Capsule) 100 mg PO TID [facility] Last Admin: 10/23/22 08:29 Dose: 100 mg Documented By: ANIYA Hydrochlorothiazide (Hydrochlorothiazide 12.5 Mg Tablet) 12.5 mg PO DAILY [facility]; Protocol Last Admin: 10/23/22 08:28 Dose: 12.5 mg Documented By: ANIYA Vancomycin HCl 750 mg/ Sodium (Chloride) 265 mls @ 265 mls/hr IV Q12H [facility] Last Infusion: 10/23/22 00:15 Dose: 0 mls/hr Documented By: BRITTANY Melatonin (Melatonin 3 Mg Tablet) 6 mg PO BEDTIME PRN PRN Reason: insomnia Methylprednisolone Sodium Succinate (Methylprednisolone Sod Succ 40 Mg/Ml Vial) 40 mg IVPUSH Q12H [facility] Last Admin: 10/23/22 00:13 Dose: 40 mg Documented By: BRITTANY Montelukast Sodium (Montelukast Sodium 10 Mg Tablet) 10 mg PO BEDTIME [facility] Last Admin: 10/22/22 20:33 Dose: 10 mg Documented By: BRITTANY Pharmacy Consult (Consult Rx Vancomycin Dosing) 1 each MISCELLANE DAILY PRN PRN Reason: Consult order Sertraline HCl (Sertraline Hcl 50 Mg Tablet) 50 mg PO DAILY [facility] Last Admin: 10/23/22 08:29 Dose: 50 mg Documented By: ANIYA Sodium Chloride (0.9 % Sodium Chloride Flush 3 Ml Syringe) 3 ml IVFLUSH QSHIFT [facility] Last Admin: 10/23/22 08:29 Dose: 3 ml Documented By: ANIYA Labs 10/21/22 06:10 10/23/22 05:21 Labs: Laboratory Results - last 24 hr 10/23/22 10/23/22 05:21 09:16 Estim Creat Clear Calc 63.8 Estimated GFR > 60 Random Vancomycin 11.0 L Microbiology Microbiology Results: Microbiology 10/21/22 00:27 Blood Culture - Preliminary Blood - Venous Coag negative Staphylococcus 10/21/22 00:25 Blood Culture - Preliminary Blood - Venous Coag negative Staphylococcus 10/22/22 03:02 Blood Culture - Preliminary Blood - Venous No growth after 24 hours. 10/22/22 03:02 Blood Culture - Preliminary Blood - Venous No growth after 24 hours. Assessment and Plan (1) Acute exacerbation of COPD with asthma: Status: Resolved Assessment and Plan: 59-year-old female presents with shortness of breath productive cough consistent with COPD exacerbation. Admitted to telemetry secondary to vague complaints of chest pain. Troponins have been negative. Seen by Cardiology; chest pain pulmonary in nature no need for workup. There were no acute events overnight 1. COPD exacerbation Continue pulsed dose methylprednisolone today switched to p.o. in a.m.. DuoNebs q.6 hours p.r.n. azithromycin given productive cough blood cultures positive (2/2 )-repeat blood cultures ordered overnight on vanco, vanco trough moniterng as per pharmacy. Id eval 2. Dm 2 Continue sliding scale as ordered. Adjust as indicated 3.MARY - continue CPAP at bedtime 4.mood disorder - continue mood stabilizers DVT prophylaxis with Lovenox. inpatient need -copd excerebation, positive blood culture-needs IV antibiotics, steroids, nebs. Time Spent With Patient Time: Total time managing care of this patient today ____ minutes. Quality Stroke Does the patient have a stroke diagnosis?: No VTE Prior VTE?: No VTE Risk Level:: Medical - moderate - high VTE Device Contraindication: Treatment Not Indicated VTE Drug Contraindication: N/A - Med Ordered
[2022-10-23] MEDS: vancomycin HCL 750 MG in 0.9 % Sodium Chloride 250 ML 265 MG IV ×2 (11:49→23:34)
--- NOTE | 2022-10-23 13:53 | MHC.CM.PN ---
EMR REVIEWED AND PER MD ROUNDS, PT IS NOT MEDICALLY CLEARED FOR DC (BACTEREMIC) CM WILL CONTINUE TO FOLLOW FOR ANY CHANGE
[2022-10-23] MEDS: Acetaminophen 325 MG TABLET 650 MG PO (14:53)
--- NOTE | 2022-10-23 16:18 | W.PM.IDCN ---
History of Present Illness Data of Consult Service Date: 10/23/22 Requesting physician: Jenn Littlejohn Primary Care Provider: [facility] Reason for consult: bacteremia,staph coagulase negative She presents with cough and shortness of breath for a week. She has coagulase negative staph x 2. She has AVR. Review of Systems Review of Systems: Yes all other systems are reviewed and are negative Cardiovascular: Cardiovascular: Reports dyspnea on exertion Respiratory: Respiratory: Reports cough and Reports dyspnea on exertion [facility] Past Medical History Medical History (Updated 10/23/22 @ 16:20 by Alma Gomez MD) Allergic rhinitis Aortic valve endocarditis Asthma Bacteremia Bronchitis COPD (chronic obstructive pulmonary disease) COPD (chronic obstructive pulmonary disease) COPD (chronic obstructive pulmonary disease) COPD exacerbation Family history of GERD Fibromyalgia GERD (gastroesophageal reflux disease) History of arthritis History of depression History of enuresis History of urinary incontinence Hx of allergic rhinitis Hx of cardiac pacemaker Hx of coronary artery disease Hx of diabetes mellitus Hx of drug abuse Hx of essential hypertension Hx of hyperlipidemia Hx of migraines Hx of osteoarthritis Hx of pilonidal cyst MARY (obstructive sleep apnea) MARY on CPAP Overactive bladder Reactive airways dysfunction syndrome Rheumatoid arthritis Surgical History Surgical History History of cystoscopy History of epidermal inclusion cyst excision History of hysterectomy History of surgical removal of pilonidal cyst Hx laparoscopic cholecystectomy Hx of aortic valve replacement Hx of bilateral cataract extraction Hx of colonoscopy Social History Social History Household Members: Other Household Members Other:: self Housing: Apartment Do you presently have visiting nurse or other home services: Yes (Home health aide) Alcohol intake: never Patient Tobacco Use Status: Current everyday Tobacco user Tobacco use type: Cigarette Cigarettes Per Day: 4 e-Cigarette/Vaping Use: Currently Using Second Hand Smoke Exposure: No Advance Directives Date on File: 11/08/21 service: No Current occupational status: unemployed and disabled Meds Allergies Allergy/AdvReac Type Severity Reaction Status Date / Time latex [LATEX] Allergy Severe DIFFICULTY Verified 08/22/22 15:58 BREATHING aspirin [Aspirin] Allergy Intermediate ITCHING, Verified 08/22/22 15:58 itchiness ciprofloxacin [From CIPRO] Allergy Intermediate DIAPHORESIS Verified 08/22/22 15:58 /PURITIS Penicillins [PENICILLINS] Allergy Unknown UNKNOWN Verified 08/22/22 15:58 HEMALATHA Inhibitors AdvReac Intermediate COUGH Verified 08/22/22 15:58 [HEMALATHA INHIBITORS] Active Medications: Current Medications Acetaminophen (Acetaminophen 325 Mg Tablet) 650 mg PO Q6H PRN PRN Reason: Pain, Mild (Pain Scale 1-3) Last Admin: 10/23/22 14:53 Dose: 650 mg Albuterol/Ipratropium (Albuterol/Iprat 2.5/0.5mg 3 Ml Ampul.Neb) 3 ml INHALE RQ4H PRN PRN Reason: Shortness of Breath/Wheezing Last Admin: 10/21/22 23:22 Dose: 3 ml Albuterol/Ipratropium (Albuterol/Iprat 2.5/0.5mg 3 Ml Ampul.Neb) 3 ml INHALE RQ4H WHILE AWAKE [facility] Last Admin: 10/23/22 15:12 Dose: 3 ml Amitriptyline HCl (Amitriptyline Hcl 25 Mg Tablet) 25 mg PO BEDTIME [facility] Last Admin: 10/22/22 20:33 Dose: 25 mg Bisacodyl (Bisacodyl 5 Mg Tablet.Dr) 10 mg PO BEDTIME [facility] Last Admin: 10/22/22 20:33 Dose: 10 mg Calcium Carbonate/Cholecalciferol (Calcium + Vitamin D 250 Mg Tablet) 500 mg PO DAILY [facility] Last Admin: 10/23/22 08:29 Dose: 500 mg Clopidogrel Bisulfate (Clopidogrel Bisulfate 75 Mg Tablet) 75 mg PO DAILY [facility] Last Admin: 10/23/22 08:29 Dose: 75 mg Enoxaparin Sodium (Enoxaparin Sodium 40 Mg/0.4 Ml Syringe) 40 mg SUBCUT Q24H [facility] Last Admin: 10/23/22 02:21 Dose: 40 mg Folic Acid (Folic Acid 1 Mg Tablet) 1 mg PO DAILY [facility] Last Admin: 10/23/22 08:29 Dose: 1 mg Gabapentin (Gabapentin 100 Mg Capsule) 100 mg PO TID [facility] Last Admin: 10/23/22 14:53 Dose: 100 mg Hydrochlorothiazide (Hydrochlorothiazide 12.5 Mg Tablet) 12.5 mg PO DAILY [facility]; Protocol Last Admin: 10/23/22 08:28 Dose: 12.5 mg Vancomycin HCl 750 mg/ Sodium (Chloride) 265 mls @ 265 mls/hr IV Q12H [facility] Last Infusion: 10/23/22 13:00 Dose: Infused Melatonin (Melatonin 3 Mg Tablet) 6 mg PO BEDTIME PRN PRN Reason: insomnia Methylprednisolone Sodium Succinate (Methylprednisolone Sod Succ 40 Mg/Ml Vial) 40 mg IVPUSH Q12H [facility] Last Admin: 10/23/22 11:48 Dose: 40 mg Montelukast Sodium (Montelukast Sodium 10 Mg Tablet) 10 mg PO BEDTIME [facility] Last Admin: 10/22/22 20:33 Dose: 10 mg Pharmacy Consult (Consult Rx Vancomycin Dosing) 1 each MISCELLANE DAILY PRN PRN Reason: Consult order Sertraline HCl (Sertraline Hcl 50 Mg Tablet) 50 mg PO DAILY [facility] Last Admin: 10/23/22 08:29 Dose: 50 mg Sodium Chloride (0.9 % Sodium Chloride Flush 3 Ml Syringe) 3 ml IVFLUSH QSHIFT [facility] Last Admin: 10/23/22 14:55 Dose: 3 ml Home Medications Medication Instructions Recorded Confirmed Last Taken Type acetaminophen 650 mg 650 mg PO Q8H PRN pain 07/03/22 10/21/22 Unknown History tablet,extended release albuterol sulfate 90 mcg/actuation 2 puff inhalation Q4H PRN wheezing 07/03/22 10/21/22 Unknown History aerosol inhaler (Ventolin HFA) amitriptyline 25 mg tablet 25 mg PO BEDTIME 07/03/22 10/21/22 10/20/22 History bisacodyl 5 mg tablet,delayed 10 mg PO BEDTIME 07/03/22 10/21/22 10/20/22 History release calcium carbonate 600 mg-vitamin 1 tab PO DAILY 07/03/22 10/21/22 10/20/22 History D3 10 mcg (400 unit) tablet clopidogrel 75 mg tablet 75 mg PO DAILY 07/03/22 10/21/22 10/20/22 History cyanocobalamin (vitamin B-12) 1,000 mcg PO DAILY 07/03/22 10/21/22 10/20/22 History 1,000 mcg tablet folic acid 1 mg tablet 1 mg PO DAILY 07/03/22 10/21/22 10/20/22 History gabapentin 100 mg capsule 100 mg PO TID 07/03/22 10/21/22 10/20/22 History hydrochlorothiazide 12.5 mg tablet 12.5 mg PO DAILY 07/03/22 10/21/22 10/20/22 History melatonin 5 mg tablet 5 mg PO BEDTIME PRN insomnia 07/03/22 10/21/22 Unknown History montelukast 10 mg tablet 10 mg PO BEDTIME 07/03/22 10/21/22 10/20/22 History sertraline 50 mg tablet 50 mg PO DAILY 07/03/22 10/21/22 10/20/22 History azithromycin 250 mg tablet 250 mg PO MOWEFR@0900 asthma 10/21/22 10/21/22 10/20/22 History fluticasone 500 mcg-salmeterol 50 1 ea inhalation BID 10/21/22 10/21/22 10/20/22 History mcg/dose blistr powdr for inhalation (Advair Diskus) tiotropium bromide 18 mcg capsule 1 cap inhalation DAILY 10/21/22 10/21/22 10/20/22 History with inhalation device (Spiriva with HandiHaler) Physical Exam Vital Signs: Vital Signs: Last Vital Signs Temp 97.4 F 10/23/22 15:14 Pulse 68 10/23/22 15:14 Resp 20 10/23/22 15:14 BP 134/78 10/23/22 15:14 Pulse Ox 99 10/23/22 15:14 O2 Del Method Room Air 10/23/22 15:14 O2 Flow Rate 2 10/21/22 00:00 BMI result Body Mass Index 29.0 Const: General: cooperative HEENT: Head: Yes normal to inspection Face and sinus: Yes normal facial exam Mouth: Normal oral and palatal mucosa present Teeth and gingiva: dentition normal Eyes: General: appearance normal, both eyes and all related structures Pupils: Equal, round and reactive pupils present Resp: Effort & Inspection: normal respiratory effort Cardio: Rate: regular rate Rhythm: regular rhythm Heart sounds: Murmur heart sound present (4/6 NEIDA) GI: Palpation (GI): Soft to palpation and nontender : General: Yes no CVA tenderness Back/Spine/Pelvis: Back: no CVA tenderness Skin: General skin exam: no rashes or lesions noted Neuro: General: moves all extremities Cranial nerves: Yes Equal, round and reactive pupils present Extrem: General: Yes normal to inspection Psych: Appearance: grossly normal Results Labs 10/21/22 06:10 10/23/22 05:21 Labs: BMP 10/23/22 05:21 Creatinine 0.78 Microbiology Microbiology Results: Microbiology 10/21/22 00:27 Blood - Venous Blood Culture - Preliminary Coag negative Staphylococcus 10/21/22 00:25 Blood - Venous Blood Culture - Preliminary Coag negative Staphylococcus 10/22/22 03:02 Blood - Venous Blood Culture - Preliminary No growth after 24 hours. 10/22/22 03:02 Blood - Venous Blood Culture - Preliminary No growth after 24 hours. Assessment and Plan (1) Acute respiratory distress: Status: Acute (2) Bacteremia: Status: Acute Bacteremia concern for endocarditis but usually never coagulase negative staph x 2. There is suspicion for contaminant and other causes such as cardiac for shortness of breath. Plan Would continue Vancomycin until endocarditis issue is settled. Cardiology consult for NEFTALI recommended. Time Spent With Patient Time: Total time managing care of this patient today ____ minutes.
[2022-10-23] MEDS: bisacodyL 5 MG TABLET.DR 10 MG PO (20:33)
[2022-10-23] MEDS: Montelukast Sodium 10 MG TABLET PO (20:33)
[2022-10-23] MEDS: Amitriptyline HCl 25 MG TABLET PO (20:33)
[2022-10-24] MEDS: methylPREDNISolone Sod Succ 40 MG/ML VIAL IVPUSH (01:08)
[2022-10-24 01:10] VITALS: BP 143/96; PULSE 74; RESP 20; TEMP 36.1; O2SAT 98
[2022-10-24] MEDS: Enoxaparin Sodium 40 MG/0.4 ML SYRINGE SUBCUT (02:32)
[2022-10-24 05:42] LABS: Creatinine Clr Calc Pharmacy 60.6; Estimated Glomerular Filt Rate > 60
--- NOTE | 2022-10-24 07:33 | PM.DS ---
DS: Providers Provider Date of Service: 10/24/22 Date of admission: 10/21/22 02:19 Primary care physician: [facility] Consults: 10/22/22 10:37 Consult to Infectious Diseases Routine Consulting Provider: [facility] Infectious Disease Reason for consultation: ?bacteremia Has provider been notified: No DS: Diagnosis Discharge Diagnosis (1) Acute respiratory distress: Status: Acute (2) Bacteremia: Status: Acute DS: Summary Hospital Course Hospital Course: 61-year-old female with past medical history of COPD/asthma, GERD, depression, diabetes, HLD, migraine headache, MARY noncompliant with CPAP history of aorti valve replacement, comes into the hospital complaints of shortness of breath, cough, sputum production? for the past 4 days.? Denies any fever, no orthopnea, no PND, no lower extremity edema.? No abdominal pain nausea or vomiting, no chest pain, no urinary symptoms and no lower extremity edema On arrival to the ED patient hemodynamically stable with slight tachypnea satting 95% on room air Labs are significant for WBC count of 11.8, pH of 7.46, no CO2 retention, BNP of 323, Chest x-ray shows no active cardiopulmonary disease Patient started on steroids, will be admitted for further management. Hospital course: Patient was admitted for COPD exacerbation-started on nebs steroids-shortness of breath seems to be improved , sats are 94% on room air. Feeling much better. Patient will be going home with p.o. steroids 3 days. Bacteremia due to coag negative staph is conatmaination, echo negative and doesn't warrant further antibiotics, repeat cultures negative after 48 hours Time Spent with Patient Time attestation: Total time managing care of this patient today ____ minutes. Discharge coordination time: Greater than 30 minutes Quality: Safe Use of Opioids Does Pt have an Active Cancer Diagnosis on the Problem List?: No Quality: Stroke Does the patient have a stroke diagnosis?: No Physical Exam Vital Signs: Vital Signs: Last Vital Signs Temp 97.0 F 10/24/22 01:10 Pulse 74 10/24/22 01:10 Resp 20 10/24/22 01:10 BP 143/96 H 10/24/22 01:10 Pulse Ox 98 10/24/22 01:10 O2 Del Method Room Air 10/24/22 01:10 O2 Flow Rate 2 10/21/22 00:00 BMI result Body Mass Index 29.0 DS: Data Data Completed and Pending Labs on day of discharge: Laboratory Results - last 24 hr 10/23/22 10/24/22 09:16 05:13 Creatinine 0.82 Estim Creat Clear Calc 60.6 Estimated GFR > 60 Random Vancomycin 11.0 L Preliminary micro results at discharge 10/22/22 03:02 Blood Culture - Preliminary Blood - Venous No growth after 48 hours. 10/22/22 03:02 Blood Culture - Preliminary Blood - Venous No growth after 48 hours. 10/21/22 00:27 Blood Culture - Preliminary Blood - Venous Coag negative Staphylococcus 10/21/22 00:25 Blood Culture - Preliminary Blood - Venous Coag negative Staphylococcus Discharge Plan Discharge Anticipated Discharge Date/Time: 10/22/22 07:20 Patient Disposition: Home, Self-Care Discharge Diagnosis: copd excerebation Referrals: [facility] [Physician] - 1 Week Discharge Medications: New prednisone 20 mg tablet 40 mg PO DAILY Qty: 8 0RF Continued azithromycin 250 mg tablet 250 mg PO MOWEFR@0900 fluticasone propion-salmeterol [Advair Diskus] 500-50 mcg/dose blister with device 1 ea INHALATION BID Spiriva with HandiHaler 18 mcg capsule, w/inhalation device 1 cap inhalation DAILY acetaminophen 650 mg tablet extended release 650 mg PO Q8H PRN (Reason: pain) montelukast 10 mg tablet 10 mg PO BEDTIME bisacodyl 5 mg tablet,delayed release (DR/EC) 10 mg PO BEDTIME gabapentin 100 mg capsule 100 mg PO TID sertraline 50 mg tablet 50 mg PO DAILY calcium carbonate-vitamin D3 600 mg-10 mcg (400 unit) tablet 1 tab PO DAILY hydrochlorothiazide 12.5 mg tablet 12.5 mg PO DAILY melatonin 5 mg tablet 5 mg PO BEDTIME PRN (Reason: insomnia) albuterol sulfate [Ventolin HFA] 90 mcg/actuation HFA aerosol inhaler 2 puff inhalation Q4H PRN (Reason: wheezing) clopidogrel 75 mg tablet 75 mg PO DAILY amitriptyline 25 mg tablet 25 mg PO BEDTIME folic acid 1 mg tablet 1 mg PO DAILY cyanocobalamin (vitamin B-12) 1,000 mcg tablet 1,000 mcg PO DAILY Discharge Orders: Discharge Order (Routine); Ordered 10/24/22 Ordered By: Bry Mlapah Diet: Advance to usual diet Activity on Discharge: As tolerated Stand Alone Forms: Patient Portal Discharge page Care Plan Goals: Patient was admitted for COPD exacerbation-started on nebs steroids-shortness of breath seems to be improved , sats are 94% on room air. Feeling much better. Patient will be going home with p.o. steroids 4 days. Follow-up PCP outpatient. Health Concerns: As above. Plan of Treatment: As above. Assessment: As above.
[2022-10-24 07:36] VITALS: BP 157/76; PULSE 80; RESP 16; TEMP 36.2; O2SAT 97
[2022-10-24 07:49] LABS: Vancomycin Random 11.1 mcg/mL (15-20)
[2022-10-24] MEDS: Folic Acid 1 MG TABLET PO (08:26)
[2022-10-24] MEDS: Clopidogrel Bisulfate 75 MG TABLET PO (08:26)
[2022-10-24] MEDS: Sertraline HCL 50 MG TABLET PO (08:26)
[2022-10-24] MEDS: hydroCHLOROthiazide 12.5 MG TABLET PO (08:26)
[2022-10-24] MEDS: Calcium + Vitamin D 250 MG TABLET 500 MG PO (08:26)
[2022-10-24] MEDS: Gabapentin 100 MG CAPSULE PO (08:26)
[2022-10-24] MEDS: 0.9 % Sodium Chloride Flush 3 ML SYRINGE IVFLUSH (08:27)
[2022-10-24 08:41] VITALS: PULSE 80; RESP 16; O2SAT 96
[2022-10-24] MEDS: Albuterol/Iprat 2.5/0.5MG 3 ML AMPUL.NEB INHALE (08:41)
--- NOTE | 2022-10-24 12:02 | MHC.CM.PN ---
Patient discharged today to home. [employer] services will resume. Patient has arranged for transportation home.
== END 2022-10-24 11:47 | disposition home or self-care (01) | DRG 140 ==
LOC: HO.ED 23:45 → HO.EDOVER 10-21 02:29 → HO.S3 10-21 12:07
PROVIDERS: Admitting Provider Internal Medicine; Emergency Provider Emergency Medicine; PCP Internal Medicine; Visit Provider Internal Medicine
DX: J44.1 Chronic obstructive pulmonary disease with (acute) exacerbation (principal); E11.9 Type 2 diabetes mellitus without complications; G47.33 Obstructive sleep apnea (adult) (pediatric); I10 Essential (primary) hypertension; F39 Unspecified mood [affective] disorder; Z20.822 Contact with and (suspected) exposure to COVID-19; F17.210 Nicotine dependence, cigarettes, uncomplicated; Z91.199 Patient's noncompliance with other medical treatment and regimen due to unspecified reason; Z71.6 Tobacco abuse counseling; Z95.2 Presence of prosthetic heart valve; Z79.02 Long term (current) use of antithrombotics/antiplatelets; Z79.899 Other long term (current) drug therapy
CPT/HCPCS: 36415; 71045; 80048; 80053; 80202; 81001; 82565; 82803; 83605; 83880; 84484; 85025; 85610; 85730; 87040; 87077; 87186; 87205; 87635; 93005; 93306; 99285; J0456; J0696; J1650; J2920; J2930; J3370; J3371; J3475; Q9957

== ENCOUNTER 2022-10-21 02:19 | Outpatient (BNV) | payer MEDICAID, SELFPAY | END 2022-10-23 07:00 | PROVIDERS: Admitting Provider Internal Medicine; Emergency Provider Emergency Medicine; Visit Provider Internal Medicine Cardiovascular Disease | DX: J44.1 Chronic obstructive pulmonary disease with (acute) exacerbation (principal) | CPT/HCPCS: 93306 ==

== ENCOUNTER → 2022-10-21 02:19 | Outpatient (BNV) | payer MEDICAID, SELFPAY | PROVIDERS: Admitting Provider Internal Medicine; Emergency Provider Emergency Medicine; Visit Provider Internal Medicine | DX: J44.1 Chronic obstructive pulmonary disease with (acute) exacerbation (principal) | CPT/HCPCS: 99223; 99231; 99232; 99239 ==

== ENCOUNTER → 2022-10-21 02:19 | Outpatient (BNV) | payer MEDICAID, SELFPAY | PROVIDERS: Admitting Provider Internal Medicine; Emergency Provider Emergency Medicine; Visit Provider Internal Medicine | DX: R06.03 Acute respiratory distress (principal); R78.81 Bacteremia | CPT/HCPCS: 99222 ==

== ENCOUNTER 2022-11-08 14:55 | Outpatient (AMB) | payer MEDICAID, SELFPAY ==
[2022-11-08 15:00] VITALS: BP 130/68; PULSE 48; O2SAT 98; BMI 29.3
--- NOTE | 2022-11-08 15:00 | MHC.OFFVIS ---
Intake Vital Signs 11/08/22 15:00 Height 4 ft 11 in Weight 145 lb BMI 29.3 BP 130/68 Blood Pressure Location Lt brachial Position Sitting Pulse 48 L Pulse Source Pulse Oximeter Pulse Oximetry (%) 98 Intake Visit Reasons: Pulm Clearance - Interstim/Dr. Vivas Intake Note: pt is hre for pre-op clearance for Dr. Vivas, there is no date on the schedule yet, but she thinks it will be in a few weeks. She states her asthma is good, she is post stay of 5 days for an asthma flare up. Digital Printer Required: No Allergies latex [LATEX] Allergy (Severe, Verified 11/08/22 15:18) DIFFICULTY BREATHING aspirin [Aspirin] Allergy (Intermediate, Verified 11/08/22 15:18) ITCHING, itchiness ciprofloxacin [From CIPRO] Allergy (Intermediate, Verified 11/08/22 15:18) DIAPHORESIS/PURITIS Penicillins [PENICILLINS] Allergy (Unknown, Verified 11/08/22 15:18) UNKNOWN HEMALATHA Inhibitors [HEMALATHA INHIBITORS] Adverse Reaction (Intermediate, Verified 11/08/22 15:18) COUGH Medication List - Last Reconciled 11/08/22 by Wally Simpson MD acetaminophen ER 650 mg PO Q8H PRN albuterol sulfate 90 mcg/actuation (Ventolin HFA) 2 puffs inhalation Q4H PRN amitriptyline 25 mg PO BEDTIME azithromycin 250 mg PO MOWEFR@0900 bisacodyl 10 mg PO BEDTIME calcium carbonate-vitamin D3 600 mg-10 mcg (400 unit) 1 tab PO DAILY clopidogrel 75 mg PO DAILY cyanocobalamin (vitamin B-12) 1,000 mcg PO DAILY fluticasone propion-salmeterol 500-50 mcg/dose (Advair Diskus) 1 ea inhalation BID folic acid 1 mg PO DAILY gabapentin 100 mg PO TID hydrochlorothiazide 12.5 mg PO DAILY melatonin 5 mg PO BEDTIME PRN montelukast 10 mg PO BEDTIME prednisone 40 mg (2 x 20 mg) PO DAILY sertraline 50 mg PO DAILY tiotropium bromide (Spiriva with HandiHaler) 1 cap inhalation DAILY Do you need a note to return to daycare/school/sports/work: No HPI Pulm Clearance - [facility]/Dr. Vivas HPI Details Moderate AI is 61 years old female, with the restrictive pulmonary disorder/bronchial asthma for the past many years. She was treated in [facility] just 2 weeks ago for an acute exacerbation of COPD. After discharge she has completed the course of prednisone. At present her breathing is fairly stable. But as usual she continues to have intermittent cough and she gets short of breath on minimal exertion like walking in the house or climbing stairs. She is the raising the question about oxygen at night. Patient has chronic incontinence , and awaiting to undergo urologic procedure, Interstim placement. [facility], [facility] Medical History (Updated 11/09/22 @ 16:56 by Wally Simpson MD) MARY (obstructive sleep apnea) COPD (chronic obstructive pulmonary disease) MARY on CPAP Reactive airways dysfunction syndrome Rheumatoid arthritis Fibromyalgia GERD (gastroesophageal reflux disease) MARY (obstructive sleep apnea) Aortic valve endocarditis COPD (chronic obstructive pulmonary disease) COPD exacerbation Overactive bladder Bronchitis Allergic rhinitis COPD (chronic obstructive pulmonary disease) Asthma Hx of cardiac pacemaker Hx of migraines Hx of coronary artery disease History of urinary incontinence Hx of essential hypertension History of depression Hx of drug abuse Hx of hyperlipidemia Hx of allergic rhinitis History of enuresis Hx of osteoarthritis Hx of pilonidal cyst Family history of GERD History of arthritis Hx of diabetes mellitus Surgical History History of surgical removal of pilonidal cyst Hx of bilateral cataract extraction Hx of colonoscopy History of cystoscopy History of hysterectomy Hx of aortic valve replacement Hx laparoscopic cholecystectomy History of epidermal inclusion cyst excision Social History Household Members: Other Household Members Other:: self Housing: Apartment Do you presently have visiting nurse or other home services: Yes (Home health aide) Alcohol intake: never Patient Tobacco Use Status: Current everyday Tobacco user Tobacco use type: Cigarette Cigarettes Per Day: 2 e-Cigarette/Vaping Use: Currently Using Second Hand Smoke Exposure: No Advance Directives Date on File: 11/08/21 service: No Current occupational status: unemployed and disabled Review of Systems Const All systems reviewed & are unremarkable except as noted in HPI and below Eyes Reports no additional complaints ENT Reports nasal congestion (ON A DAILY BASIS) and Reports post nasal drip (OFF AND ON) Card Denies irregular heart rhythm and Denies leg edema Resp Reports as per HPI GI Reports no additional complaints Reports no additional complaints Musc Reports back pain and Reports arthralgias Skin/Breast Reports system reviewed and no additional complaints, except as documented Neuro Reports no additional complaints Psych Reports no additional complaints Endo Reports other (BEING TREATED FOR DIABETES MELLITUS) Physical Exam Vital Signs: Last Vital Signs Pulse 48 L 11/08/22 15:00 BP 130/68 11/08/22 15:00 Pulse Ox 98 11/08/22 15:00 BMI result Body Mass Index 29.3 Const General: comfortable (FREQUENT COUGH DURING CONVERSATION), no acute distress, alert and awake Orientation/consciousness: patient oriented x3 HEENT Head: Yes normal to inspection General nose exam: No nasal polyps present and No nasal discharge present Face and sinus: Yes sinuses nontender Mouth: oropharynx normal Throat: Yes posterior oropharynx normal Eyes General: appearance normal, both eyes and all related structures Neck Neck: Yes normal visual inspection, Yes no lymphadenopathy, Yes trachea midline and Yes no JVD Thyroid: Thyroid normal Chest Chest palpation & inspection: abnormal inspection of the chest (PATIENT HAS MIDLINE SCAR FROM PREVIOUS SURGERY), normal palpation of entire chest wall and no tenderness Resp Other: PERCUSSION NOTE RESONANT, BREATH SOUNDS ARE DISTANT, WITH PROLONGED EXPIRATORY PHASE. SHE DOES HAVE SCATTERED EXPIRATORY WHEEZES ON BOTH SIDES. Cardio Palpation: normal PMI Rate: regular rate Rhythm: regular rhythm Heart sounds: no gallops and no murmurs Peripheral pulses: Peripheral pulses 2+ throughout GI Palpation (GI): Soft to palpation, nontender, No hepatosplenomegaly present and no masses Auscultation: normal bowel sounds Back/Spine/Pelvis Thoracic/Lumbar Spine: thoracic and lumbar spine normal to inspection Skin General skin exam: no rashes or lesions noted Neuro General: patient oriented x3 and no focal motor deficits Cranial nerves: Yes CN's II-XII intact bilaterally Extrem General: Yes normal to inspection, Yes no clubbing, cyanosis or edema and Yes no calf tenderness Psych Appearance: grossly normal Speech and movement: Normal speech and movement present Results Reviewed Results Reviewed: Discharge summary from the hospital was reviewed Assessment & Plan Assessment & Plan (1) Allergic rhinitis: Comment: SHE HAS CHRONIC ALLERGIC RHINITIS WITH POSTNASAL DISCHARGE CONTRIBUTING TO HER COUGH. RELATIVELY CONTROLLED AND STABLE AT THIS TIME. RX: CONTINUE MONTELUKAST 10 MG DAILY. AND LORATADINE 10 MG ONCE A DAY P.R.N. Code(s): J30.9 - Allergic rhinitis, unspecified (2) Reactive airways dysfunction syndrome: Comment: THIS PATIENT HAS ASTHMA/COPD DISORDER, WITH FREQUENT BOUTS OF COUGH AND WHEEZING. CURRENTLY AFTER TREATMENT OF ACUTE EXACERBATION AND A COURSE OF PREDNISONE SHE IS DOING MUCH BETTER, TX: CONTINUE ADVAIR 500-51 INHALATION B.I.D. SPIRIVA HANDIHALER 1 CAPSULE DAILY, IPRATROPIUM-ALBUTEROL UPDRAFTS Q FOR 6 HOURS WHILE AWAKE. FOR PREOP EVALUATION, SHE NEEDS AT LEAST A SPIROMETRY, WHICH CAN BE DONE IN THE OFFICE. CLINICALLY I THINK SHE IS STABLE AND DO NOT SEE ANY CONTRAINDICATION. Code(s): J68.3 - Other acute and subacute respiratory conditions due to chemicals, gases, fumes and vapors (3) Bronchitis: Comment: SHE IS PRONE TO HAVE FREQUENT BOUTS OF ACUTE BRONCHITIS BUT CURRENTLY SHE DOES NOT HAVE ANY ACTIVE BRONCHITIS. Code(s): J40 - Bronchitis, not specified as acute or chronic (4) MARY (obstructive sleep apnea): Comment: PATIENT DOES HAVE HISTORY OF OBSTRUCTIVE SLEEP APNEA BUT SHE STOPPED USING CPAP MANY YEARS AGO. SHE IS ENQUIRING IF SHE WOULD NEED OXYGEN AT NIGHT. TO CHECK HER FOR NOCTURNAL HYPOXEMIA SHE NEEDS OVERNIGHT OXIMETRY RECORDING, WHICH IS BEING ORDERED. Code(s): G47.33 - Obstructive sleep apnea (adult) (pediatric) Coding Level of Care Code Est Pt Level 4 (09391) Diagnoses Allergic rhinitis J30.9 Reactive airways dysfunction syndrome J68.3 Bronchitis J40 MARY (obstructive sleep apnea) G47.33
== END 2022-11-08 15:31 | disposition home or self-care (01) ==
PROVIDERS: PCP Internal Medicine; Visit Provider Internal Medicine
DX: J30.9 Allergic rhinitis, unspecified (principal); J68.3 Other acute and subacute respiratory conditions due to chemicals, gases, fumes and vapors; J40 Bronchitis, not specified as acute or chronic; G47.33 Obstructive sleep apnea (adult) (pediatric)
CPT/HCPCS: 99214

== ENCOUNTER → 2022-11-08 14:55 | Outpatient (BNVA) | payer MEDICAID, SELFPAY | PROVIDERS: PCP Internal Medicine; Visit Provider Internal Medicine | DX: J30.9 Allergic rhinitis, unspecified (principal); J40 Bronchitis, not specified as acute or chronic; J68.3 Other acute and subacute respiratory conditions due to chemicals, gases, fumes and vapors; G47.33 Obstructive sleep apnea (adult) (pediatric) | CPT/HCPCS: 99212 ==

== ENCOUNTER 2022-11-28 11:20 | Observation (INO) | payer MEDICAID, SELFPAY ==
[2022-11-28] VITALS (7 sets, daily range): BP systolic 103–135; BP diastolic 54–76; PULSE 61–69; RESP 16–20; TEMP 36–37.1; O2SAT 93–98; BMI 30.1; BMI 29.3
--- NOTE | ~2022-11-28 | XR_ITS ---
EXAMINATION: XR FOOT, LEFT CLINICAL INFORMATION: Pain COMPARISON: None available. TECHNIQUE: AP, lateral, and oblique views of the left foot. FINDINGS: The bones are intact. No fracture. Alignment is anatomic. Joint spaces are maintained. There is soft tissue swelling about the first metatarsophalangeal joint with a small amount of calcification medial to the first metatarsal head. Mild calcific density is seen near the insertion of the Achilles tendon. XR/XR foot LT min 3V IMPRESSION: Soft tissue swelling about the first metatarsophalangeal joint with a small amount of calcification medial to the first metatarsal head.
--- NOTE | 2022-11-28 11:54 | ED.EXTPRO ---
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 She tells me that a maggot came out of the closed scab on top of foot. She states this happened this year to her and Dr. Nguyen saw her but I cannot see a note. Unknown if she had a fever. MD Complaint: extremity pain, extremity swelling and joint pain Onset (ago): day(s) (4) Pain Consistency: constant Location: left and lower extremity Quality: aching, dull and constant Radiation: none Relieving factors: nothing Exacerbating factors: weight bearing and palpation Associated symptoms: rash and other (chills) Related Data Home Medications Medication Instructions Recorded Confirmed acetaminophen 650 mg 650 mg PO Q8H PRN pain 07/03/22 10/21/22 tablet,extended release albuterol sulfate 90 mcg/actuation 2 puff inhalation Q4H PRN wheezing 07/03/22 10/21/22 aerosol inhaler (Ventolin HFA) amitriptyline 25 mg tablet 25 mg PO BEDTIME 07/03/22 10/21/22 bisacodyl 5 mg tablet,delayed 10 mg PO BEDTIME 07/03/22 10/21/22 release calcium carbonate 600 mg-vitamin 1 tab PO DAILY 07/03/22 10/21/22 D3 10 mcg (400 unit) tablet clopidogrel 75 mg tablet 75 mg PO DAILY 07/03/22 10/21/22 cyanocobalamin (vitamin B-12) 1,000 mcg PO DAILY 07/03/22 10/21/22 1,000 mcg tablet folic acid 1 mg tablet 1 mg PO DAILY 07/03/22 10/21/22 gabapentin 100 mg capsule 100 mg PO TID 07/03/22 10/21/22 hydrochlorothiazide 12.5 mg tablet 12.5 mg PO DAILY 07/03/22 10/21/22 melatonin 5 mg tablet 5 mg PO BEDTIME PRN insomnia 07/03/22 10/21/22 montelukast 10 mg tablet 10 mg PO BEDTIME 07/03/22 10/21/22 sertraline 50 mg tablet 50 mg PO DAILY 07/03/22 10/21/22 tiotropium bromide 18 mcg capsule 1 cap inhalation DAILY 10/21/22 10/21/22 with inhalation device (Spiriva with HandiHaler) Previous Rx's Medication Instructions Recorded prednisone 20 mg tablet 40 mg (2 x 20 mg) PO DAILY #8 tabs 10/22/22 azithromycin 250 mg tablet 250 mg PO MOWEFR@0900 asthma #12 10/26/22 tabs fluticasone 500 mcg-salmeterol 50 1 ea inhalation BID #60 ea 10/26/22 mcg/dose blistr powdr for inhalation (Advair Diskus) Allergies Allergy/AdvReac Type Severity Reaction Status Date / Time latex [LATEX] Allergy Severe DIFFICULTY Verified 11/08/22 15:18 BREATHING aspirin [Aspirin] Allergy Intermediate ITCHING, Verified 11/08/22 15:18 itchiness ciprofloxacin [From CIPRO] Allergy Intermediate DIAPHORESIS Verified 11/08/22 15:18 /PURITIS Penicillins [PENICILLINS] Allergy Unknown UNKNOWN Verified 11/08/22 15:18 HEMALATHA Inhibitors AdvReac Intermediate COUGH Verified 11/08/22 15:18 [HEMALATHA INHIBITORS] Review of Systems Review of Systems: Constitutional : No Fever, pos Chills ENT/Mouth : No sore throat, No Rhinorrhea Eyes: No Eye Pain, No Swelling, No Redness Cardiovascular : No Chest Pain, No SOB Respiratory : No Cough, No Sputum Gastrointestinal : No Nausea, No Vomiting, No Diarrhea, No abdominal Pain Genitourinary : No Dysuria, No Hematuria Musculoskeletal : pos joint pain, No Myalgias, No Joint Swelling Skin : No Skin Lesions, positive skin rash Neuro : No Weakness, No Numbness, No Headache Psych : No Anxiety, No Depression Heme/Lymph: No Bruising, No Bleeding,No Lymphadenopathy Endocrine : No Polyuria, No Polydipsia All other systems reviewed and are negative PMFSH Past Medical History Attestation statement: The following information was validated with the patient. Source: old records reviewed Medical History MARY (obstructive sleep apnea) COPD (chronic obstructive pulmonary disease) MARY on CPAP Reactive airways dysfunction syndrome Rheumatoid arthritis Fibromyalgia GERD (gastroesophageal reflux disease) MARY (obstructive sleep apnea) Aortic valve endocarditis COPD (chronic obstructive pulmonary disease) COPD exacerbation Overactive bladder Bronchitis Allergic rhinitis COPD (chronic obstructive pulmonary disease) Asthma Hx of cardiac pacemaker Hx of migraines Hx of coronary artery disease History of urinary incontinence Hx of essential hypertension History of depression Hx of drug abuse Hx of hyperlipidemia Hx of allergic rhinitis History of enuresis Hx of osteoarthritis Hx of pilonidal cyst Family history of GERD History of arthritis Hx of diabetes mellitus Surgical History History of surgical removal of pilonidal cyst Hx of bilateral cataract extraction Hx of colonoscopy History of cystoscopy History of hysterectomy Hx of aortic valve replacement Hx laparoscopic cholecystectomy History of epidermal inclusion cyst excision Social History Social History Household Members: Other Household Members Other:: self Housing: Apartment Do you presently have visiting nurse or other home services: Yes (Home health aide) Alcohol intake: never Patient Tobacco Use Status: Current everyday Tobacco user Tobacco use type: Cigarette Cigarettes Per Day: 2 e-Cigarette/Vaping Use: Currently Using Second Hand Smoke Exposure: No Advance Directives: Yes Advance Directives on File: Yes Advance Directives Date on File: 11/08/21 service: No Current occupational status: unemployed and disabled Physical Exam Vital Signs: Vital Signs: Last Vital Signs Temp 98.7 F 11/28/22 14:27 Pulse 62 11/28/22 14:27 Resp 16 11/28/22 14:27 BP 112/68 11/28/22 14:27 Pulse Ox 98 11/28/22 14:27 O2 Del Method Room Air 11/28/22 14:27 BMI result Body Mass Index 30.1 Appearance: Alert. Oriented X3. No acute distress. Eyes: Pupils equal, round and reactive to light. ENT: Pharynx normal. Neck: Normal inspection. Neck supple. CVS: Normal heart rate and rhythm. Pulses normal. Respiratory: No respiratory distress. Breath sounds normal. Abdomen: Soft and nontender. Skin: Skin warm and dry. Normal skin color. Normal skin turgor. Extremities: R foot normal. L foot moderate swelling and moderate erythema on medial aspect and dorsum of foot - no wounds in between toes, has dried closed scab on dorsum of foot I cannot express any fluid or material out of wound as it is closed there is no drainage, no fluctuance felt, 2+ DP pulse, SILT intact Neuro: Oriented X 3. No motor deficit. No sensory deficit. Medications Administered Discontinued Medications Generic Name Dose Route Start Last Admin Trade Name Kiah PRN Reason Stop Dose Admin Sodium Chloride 1,000 mls @ 999 mls/hr 11/28/22 12:45 11/28/22 14:55 Ns IVCONT 11/28/22 13:45 Infused .Q1H1M PATTI Infusion Cefepime HCl 1 gm/ Sodium 50 mls @ 100 mls/hr 11/28/22 12:31 11/28/22 14:55 Chloride IV 11/28/22 13:00 Infused ONCE ONE Infusion Morphine Sulfate 4 mg 11/28/22 12:31 11/28/22 13:55 Morphine Sulfate 4 Mg/Ml Cartridge IVPUSH 11/28/22 12:32 4 mg ONCE ONE Administration Protocol Ondansetron HCl 4 mg 11/28/22 12:31 11/28/22 13:53 Ondansetron Hcl 4 Mg/2 Ml Vial IVPUSH 11/28/22 12:32 4 mg ONCE ONE Administration Medical Decision Making Medical Decision Making MDM Narrative: 61 yo female with PMH of bronchits, DM, MARY, resp distress here with c/o L foot pain atraumatic but with redness and swelling/chills. She states she saw a maggot at home but the wound is closed so I am not sure where they would be. I do not think there is an abscess she is NV intact will obtain basic labs, cultures, lactic acid and foot xray - start on cefepime. IV morphine for pain control. Differential Diagnosis Differential Diagnoses: The differential diagnosis associated with the presentation includes cellulitis, I doubt maggots given the patient has a closed wound Admission/Observation Consideration of admission/observation: Escalation of care including admission/observation considered given cellulitis and TAVR with hx of endocarditis will admit patient Consult Healthcare Provider Management of the patient was discussed with: Hospitalist (agrees to admit) Lab Data [facility] Lab Attestation statement: I reviewed the patient's lab results. 11/28/22 12:51 11/28/22 12:51 Labs: Lab Results 11/28/22 Range/Units 12:51 WBC 13.5 H (4.8-10.8) X10*3/uL RBC 4.80 (4.20-5.50) X10*6/uL Hgb 14.0 (12.0-16.0) g/dl Hct 41.7 (37.0-47.0) % MCV 86.9 (80.0-98.0) fL MCH 29.2 (27.0-33.0) pg MCHC 33.6 (31.0-35.0) g/dl RDW 13.1 (11.0-16.0) % Plt Count 386 D (160-400) X10*3/uL MPV 9.2 L (9.4-12.3) fL Immature Gran % (Auto) 0.6 H (0.0-0.4) % Neut % (Auto) 77.4 H (45-73) % Lymph % (Auto) 8.3 L (20-40) % [place] % (Auto) 13.2 H (2-11) % Eos % (Auto) 0.4 (0-4) % Baso % (Auto) 0.1 (0-2) % Lymph # (Auto) 1.1 L (1.2-4.9) X10*3/uL [place] # (Auto) 1.8 H (0.1-1.2) X10*3/uL Eos # (Auto) 0.1 (0.0-0.4) X10*3/uL Baso # (Auto) 0.0 (0.0-0.2) X10*3/uL Abs Immat Gran (auto) 0.08 H (0.00-0.03) X10*3/uL Absolute Neuts (auto) 10.4 H (2.0-8.3) x10*3/uL Absolute Nucleated RBC 0.000 (0.0-0.012) X10*3/uL Nucleated RBC % (auto) 0.0 (0.0-0.2) /100WBC Smear Tech's Comments VERIFIED ESR 45 H (0-20) MM/HR Sodium 136 (135-145) mmol/L Potassium 3.3 (3.3-5.1) mmol/L Chloride 99 (96-108) mmol/L Carbon Dioxide 27 (22-29) mmol/L Anion Gap 13 (12-20) BUN 9 (9-16) mg/dL Creatinine 0.66 (0.5-1.4) mg/dL Estim Creat Clear Calc 76.7 Estimated GFR > 60 Random Glucose 116 H (60-115) mg/dL Lactic Acid 0.8 (0.5-2.0) mmol/L Calcium 10.0 (8.4-10.2) mg/dL Magnesium 1.8 (1.6-2.6) mg/dL Total Bilirubin 0.7 (0.0-1.0) mg/dL Direct Bilirubin 0.4 (0.0-0.5) mg/dL AST 14 (5-31) U/L ALT 6 (0-31) U/L Alkaline Phosphatase 64 (39-117) U/L C-Reactive Protein 31.13 H (< or = 0.50) mg/dL Total Protein 6.8 (6.5-8.0) g/dL Albumin 3.6 (3.5-5.0) g/dL Independent Interpretation I performed an independent interpretation of an: Plain X-Ray (no osteo) Radiology Impression Discussion of test interpretation with radiology: I have reviewed the radiologist's reading. External Record Review External record reviewed: Inpatient record Discharge Plan Discharge Clinical Impression: Cellulitis Qualifiers: Site of cellulitis: extremity Site of cellulitis of extremity: lower extremity Laterality: left Qualified Code(s): L03.116 - Cellulitis of left lower limb Elevated WBC count Qualifiers: Leukocytosis type: unspecified Qualified Code(s): D72.829 - Elevated white blood cell count, unspecified Patient Disposition: Admitted As Inpatient Instructions: Cellulitis (ED) Prescriptions: No Action azithromycin 250 mg tablet 250 mg PO MOWEFR@0900 Qty: 12 0RF fluticasone propion-salmeterol [Advair Diskus] 500-50 mcg/dose blister with device 1 ea INHALATION BID Qty: 60 0RF Spiriva with HandiHaler 18 mcg capsule, w/inhalation device 1 cap inhalation DAILY prednisone 20 mg tablet 40 mg PO DAILY Qty: 8 0RF acetaminophen 650 mg tablet extended release 650 mg PO Q8H PRN (Reason: pain) montelukast 10 mg tablet 10 mg PO BEDTIME bisacodyl 5 mg tablet,delayed release (DR/EC) 10 mg PO BEDTIME gabapentin 100 mg capsule 100 mg PO TID sertraline 50 mg tablet 50 mg PO DAILY calcium carbonate-vitamin D3 600 mg-10 mcg (400 unit) tablet 1 tab PO DAILY hydrochlorothiazide 12.5 mg tablet 12.5 mg PO DAILY melatonin 5 mg tablet 5 mg PO BEDTIME PRN (Reason: insomnia) albuterol sulfate [Ventolin HFA] 90 mcg/actuation HFA aerosol inhaler 2 puff inhalation Q4H PRN (Reason: wheezing) clopidogrel 75 mg tablet 75 mg PO DAILY amitriptyline 25 mg tablet 25 mg PO BEDTIME folic acid 1 mg tablet 1 mg PO DAILY cyanocobalamin (vitamin B-12) 1,000 mcg tablet 1,000 mcg PO DAILY
[2022-11-28 12:58] LABS: Basophils Percent Auto 0.1 % (0-2); Eosinophils Absolute Auto 0.1 X10*3/uL (0.0-0.4); Eosinophils Percent Auto 0.4 % (0-4); Hematocrit 41.7 % (37.0-47.0); Imm Gran Abs Auto 0.08 X10*3/uL (0.00-0.03); Imm Gran Pct Auto 0.6 % (0.0-0.4); Lymphocytes Absolute Auto 1.1 X10*3/uL (1.2-4.9); Lymphocytes Percent Auto 8.3 % (20-40); MANUAL DIFF FLAG SCAN; Mean Corpuscular HGB Conc 33.6 g/dl (31.0-35.0); Mean Corpuscular Hemoglobin 29.2 pg (27.0-33.0); Mean Corpuscular Volume 86.9 fL (80.0-98.0); Mean Platelet Volume 9.2 fL (9.4-12.3); Monocytes Absolute Auto 1.8 X10*3/uL (0.1-1.2); Monocytes Percent Auto 13.2 % (2-11); Neutrophils Absolute Auto 10.4 x10*3/uL (2.0-8.3); Neutrophils Percent Auto 77.4 % (45-73); Platelet Count 386 X10*3/uL (160-400); Red Cell Distribution Width 13.1 % (11.0-16.0); SCAN SMEAR FLAG 1; White Blood Count 13.5 X10*3/uL (4.8-10.8)
[2022-11-28 13:12] LABS: Lactic Acid 0.8 mmol/L (0.5-2.0)
[2022-11-28 13:15] LABS: Alanine Aminotransferase 6 U/L (0-31); Albumin Level 3.6 g/dL (3.5-5.0); Alkaline Phosphatase 64 U/L (39-117); Anion Gap 13 (12-20); Aspartate Amino Transferase 14 U/L (5-31); Bilirubin Direct 0.4 mg/dL (0.0-0.5); Bilirubin Total 0.7 mg/dL (0.0-1.0); Blood Urea Nitrogen 9 mg/dL (9-16); C Reactive Protein 31.13 mg/dL (< or = 0.50); Carbon Dioxide 27 mmol/L (22-29); Chloride 99 mmol/L (96-108); Creatinine Clr Calc Pharmacy 76.7; Estimated Glomerular Filt Rate > 60; Glucose Random 116 mg/dL (60-115); Magnesium 1.8 mg/dL (1.6-2.6); Potassium 3.3 mmol/L (3.3-5.1); Sodium 136 mmol/L (135-145); Total Protein 6.8 g/dL (6.5-8.0)
[2022-11-28 13:39] LABS: Erythrocyte Sedimentation Rate 45 MM/HR (0-20)
[2022-11-28] MEDS: ondansetron HCL 4 MG/2 ML VIAL IVPUSH (13:53)
[2022-11-28] MEDS: cefEPime HCl 1 GM in 0.9 % Sodium Chloride 50 ML IV (13:55)
[2022-11-28] MEDS: 0.9 % Sodium Chloride 1,000 ML 999 ML IVCONT (13:55)
[2022-11-28] MEDS: Morphine Sulfate 4 MG/ML CARTRIDGE IVPUSH (13:55)
[2022-11-28 14:18] LABS: SLIDE REVIEW VERIFIED
--- NOTE | 2022-11-28 14:43 | PC.NURSE ---
pt reports L foot swelling, redness, pain and chills that started about 4 days ago. pt has hx of DM and states that in the past she had a maggot come out of a scab on her foot. 22g iv inserted R forearm, labs were drawn, meds given as ordered.
[2022-11-28 16:19] LABS: Amphetamine Screen Urine Not Detected (Not Detect); Barbiturates, Urine Not Detected (Not Detect); Benzodiazepines Screen Urine Not Detected (Not Detect); Cannabinoid Screen Urine Not Detected (Not Detect); Cocaine Screen Urine Not Detected (Not Detect); Fentanyl, urine Not Detected (Not Detect); Opiate Screen Urine POSITIVE (Not Detect); Phencyclidine Screen Urine Not Detected (Not Detect)
--- NOTE | 2022-11-28 16:42 | PHA.MEDREC ---
Pharmacy Consult ? Medication Reconciliation Pharmacy has completed the medication reconciliation. Patient report none of her medications have change. Reports using medboxes from [facility]. Patient confirmed inhaler usage. Elizabeth Leon, [employer]
[2022-11-28] MEDS: vancomycin HCL 1,000 MG, vancomycin HCL 750 MG in 0.9 % Sodium Chloride 500 ML 267.5 MG IV (16:46)
--- NOTE | 2022-11-28 17:01 | P.HPHOSP_ITS ---
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 This led to aortic valve replacement with a homograft,This was complicated by complete heart block leading to single-chamber pacemaker.) .here with c/o atraumatic L foot pain with redness, swelling and chills x 4 days. She tells me that a maggot came out of the closed scab on top of foot. She denies any trauma to the foot . Denies any new complaint of chest pain or shortness of breath or abdominal pain or fever or chills or nausea or vomiting Denies any cough Denies any weakness or numbness. ed: wbc:13.5 crp 31 esr : 45 XR/XR foot LT min 3V IMPRESSION: Soft tissue swelling about the first metatarsophalangeal joint with a small amount of calcification medial to the first metatarsal head. Review of Systems 2 Review of Systems: as above. [facility] Medical History MARY (obstructive sleep apnea) COPD (chronic obstructive pulmonary disease) MARY on CPAP Reactive airways dysfunction syndrome Rheumatoid arthritis Fibromyalgia GERD (gastroesophageal reflux disease) MARY (obstructive sleep apnea) Aortic valve endocarditis COPD (chronic obstructive pulmonary disease) COPD exacerbation Overactive bladder Bronchitis Allergic rhinitis COPD (chronic obstructive pulmonary disease) Asthma Hx of cardiac pacemaker Hx of migraines Hx of coronary artery disease History of urinary incontinence Hx of essential hypertension History of depression Hx of drug abuse Hx of hyperlipidemia Hx of allergic rhinitis History of enuresis Hx of osteoarthritis Hx of pilonidal cyst Family history of GERD History of arthritis Hx of diabetes mellitus Surgical History History of surgical removal of pilonidal cyst Hx of bilateral cataract extraction Hx of colonoscopy History of cystoscopy History of hysterectomy Hx of aortic valve replacement Hx laparoscopic cholecystectomy History of epidermal inclusion cyst excision Social History Household Members: Other Household Members Other:: self Housing: Apartment Do you presently have visiting nurse or other home services: Yes (Home health aide) Alcohol intake: never Patient Tobacco Use Status: Current everyday Tobacco user Tobacco use type: Cigarette Cigarettes Per Day: 2 e-Cigarette/Vaping Use: Currently Using Second Hand Smoke Exposure: No Advance Directives: Yes Advance Directives on File: Yes Advance Directives Date on File: 11/08/21 service: No Current occupational status: unemployed and disabled Meds Allergies Allergy/AdvReac Type Severity Reaction Status Date / Time latex [LATEX] Allergy Severe DIFFICULTY Verified 11/08/22 15:18 BREATHING aspirin [Aspirin] Allergy Intermediate ITCHING, Verified 11/08/22 15:18 itchiness ciprofloxacin [From CIPRO] Allergy Intermediate DIAPHORESIS Verified 11/08/22 15:18 /PURITIS Penicillins [PENICILLINS] Allergy Unknown UNKNOWN Verified 11/08/22 15:18 HEMALATHA Inhibitors AdvReac Intermediate COUGH Verified 11/08/22 15:18 [HEMALATHA INHIBITORS] Active Medications: Current Medications Albuterol Sulfate (Albuterol Sulfate (0.083%) 2.5 Mg/3 Ml Vial.Neb) 2.5 mg INHALE Q4-6H PRN PRN Reason: wheezing Albuterol Sulfate (Albuterol Sulfate 90 Mcg 8 Gm Inhaler) 2 puff INHALE Q4H PRN PRN Reason: wheezing Amitriptyline HCl (Amitriptyline Hcl 25 Mg Tablet) 25 mg PO BEDTIME [facility] Azithromycin (Azithromycin 250 Mg Tablet) 250 mg PO MOWEFR@0900 [facility] Bisacodyl (Bisacodyl 5 Mg Tablet.Dr) 10 mg PO BEDTIME [facility] Clopidogrel Bisulfate (Clopidogrel Bisulfate 75 Mg Tablet) 75 mg PO DAILY [facility] Cyanocobalamin (Cyanocobalamin (Vitamin B-12) 1,000 Mcg Tablet) 1,000 mcg PO DAILY [facility] Enoxaparin Sodium (Enoxaparin Sodium 40 Mg/0.4 Ml Syringe) 40 mg SUBCUT Q24H [facility] Folic Acid (Folic Acid 1 Mg Tablet) 1 mg PO DAILY [facility] Gabapentin (Gabapentin 100 Mg Capsule) 100 mg PO TID [facility] Hydrochlorothiazide (Hydrochlorothiazide 12.5 Mg Tablet) 12.5 mg PO DAILY [facility]; Protocol Vancomycin HCl 1,000 mg/Vancomycin HCl 750 mg/ Sodium Chloride 535 mls @ 267.5 mls/hr IV ONCE ONE Stop: 11/28/22 18:03 Last Admin: 11/28/22 16:46 Dose: 267.5 mls/hr Cefepime HCl 2 gm/ Sodium (Chloride) 50 mls @ 100 mls/hr IV Q12H [facility] Montelukast Sodium (Montelukast Sodium 10 Mg Tablet) 10 mg PO BEDTIME [facility] Non-Formulary Medication (Acetaminophen) 650 mg PO Q8H PRN PRN Reason: pain Non-Formulary Medication (Calcium Carbonate-Vitamin D3) 1 tab PO DAILY [facility] Non-Formulary Medication (Fluticasone Propion-Salmeterol [Advair Diskus]) 1 each INHALE BID [facility] Non-Formulary Medication (Melatonin) 5 mg PO BEDTIME PRN PRN Reason: insomnia Non-Formulary Medication (Tiotropium [place] [Spiriva With Handihaler]) 1 cap INHALE DAILY [facility] Pharmacy Consult (Consult Rx Vancomycin Dosing) 1 each MISCELLANE DAILY PRN PRN Reason: Consult order Sertraline HCl (Sertraline Hcl 50 Mg Tablet) 50 mg PO DAILY [facility] Sodium Chloride (0.9 % Sodium Chloride Flush 3 Ml Syringe) 3 ml IVFLUSH QSHIFT [facility] Home Medications Medication Instructions Recorded Confirmed Last Taken Type acetaminophen 650 mg 650 mg PO Q8H PRN pain 07/03/22 11/28/22 Unknown History tablet,extended release albuterol sulfate 90 mcg/actuation 2 puff inhalation Q4H PRN wheezing 07/03/22 11/28/22 Unknown History aerosol inhaler (Ventolin HFA) amitriptyline 25 mg tablet 25 mg PO BEDTIME 07/03/22 11/28/22 11/27/22 History bisacodyl 5 mg tablet,delayed 10 mg PO BEDTIME 07/03/22 11/28/22 11/27/22 History release calcium carbonate 600 mg-vitamin 1 tab PO DAILY 07/03/22 11/28/22 11/28/22 History D3 10 mcg (400 unit) tablet clopidogrel 75 mg tablet 75 mg PO DAILY 07/03/22 11/28/22 11/28/22 History cyanocobalamin (vitamin B-12) 1,000 mcg PO DAILY 07/03/22 11/28/22 11/28/22 History 1,000 mcg tablet folic acid 1 mg tablet 1 mg PO DAILY 07/03/22 11/28/2211/28/23 History gabapentin 100 mg capsule 100 mg PO TID 07/03/22 11/28/22 11/28/22 History hydrochlorothiazide 12.5 mg tablet 12.5 mg PO DAILY 07/03/22 11/28/22 11/28/22 History melatonin 5 mg tablet 5 mg PO BEDTIME PRN insomnia 07/03/22 11/28/22 11/27/22 History montelukast 10 mg tablet 10 mg PO BEDTIME 07/03/22 11/28/22 11/27/22 History sertraline 50 mg tablet 50 mg PO DAILY 07/03/22 11/28/22 11/28/22 History tiotropium bromide 18 mcg capsule 1 cap inhalation DAILY 10/21/22 11/28/22 11/28/22 History with inhalation device (Spiriva with HandiHaler) albuterol sulfate 2.5 mg/3 mL 2.5 mg inhalation Q4-6H PRN 11/28/22 11/28/22 Unknown History (0.083 %) solution for nebulization wheezing Physical Exam 2 Vital Signs and Narrative: Vital Signs: Last Vital Signs Temp 98.7 F 11/28/22 14:27 Pulse 62 11/28/22 14:27 Resp 16 11/28/22 14:27 BP 112/68 11/28/22 14:27 Pulse Ox 98 11/28/22 14:27 O2 Del Method Room Air 11/28/22 14:27 BMI result Body Mass Index 30.1 Appearance: Alert.? Oriented X3.? not in distress.? Eyes: Pupils equal, round and reactive to light.? Sclera nonicteric.? ENT: Pharynx normal.? Moist mucous membranes. cvs: rrr, [id number] , no murmur res: clear to auscultation ,no rhonchii or wheezing abd: no rebound or guarding ,nt, bs present. ext pulses present , no cyanosis left foot sweling and erythema ,no flacutation or discharge ,has very small scab area in midfoot. neuro: axo3 , nonfocal. Results Labs 11/28/22 12:51 11/28/22 12:51 Labs: Laboratory Results - last 24 hr 11/28/22 11/28/22 12:51 15:58 MCV 86.9 MCH 29.2 MCHC 33.6 RDW 13.1 Plt Count 386 D MPV 9.2 L Immature Gran % (Auto) 0.6 H Neut % (Auto) 77.4 H Lymph % (Auto) 8.3 L [place] % (Auto) 13.2 H Eos % (Auto) 0.4 Baso % (Auto) 0.1 Lymph # (Auto) 1.1 L [place] # (Auto) 1.8 H Eos # (Auto) 0.1 Baso # (Auto) 0.0 Abs Immat Gran (auto) 0.08 H Absolute Neuts (auto) 10.4 H Absolute Nucleated RBC 0.000 Nucleated RBC % (auto) 0.0 Smear Tech's Comments VERIFIED ESR 45 H Anion Gap 13 Estim Creat Clear Calc 76.7 Estimated GFR > 60 Random Glucose 116 H Lactic Acid 0.8 Calcium 10.0 Magnesium 1.8 Total Bilirubin 0.7 Direct Bilirubin 0.4 AST 14 ALT 6 Alkaline Phosphatase 64 C-Reactive Protein 31.13 H Total Protein 6.8 Albumin 3.6 Urine Opiates Screen POSITIVE H Urine Fentanyl Screen Not Detected Ur Barbiturates Screen Not Detected Ur Phencyclidine Scrn Not Detected Ur Amphetamines Screen Not Detected U Benzodiazepines Scrn Not Detected Urine Cocaine Screen Not Detected U Marijuana (THC) Screen Not Detected Imaging Radiologist's Impressions: Impressions Foot X-Ray 11/28/22 13:45 IMPRESSION: Soft tissue swelling about the first metatarsophalangeal joint with a small amount of calcification medial to the first metatarsal head. Assessment and Plan (1) Elevated WBC count: Qualifiers: Leukocytosis type: unspecified Qualified Code(s): D72.829 - Elevated white blood cell count, unspecified Status: Acute (2) Cellulitis: Qualifiers: Laterality: left Site of cellulitis: extremity Site of cellulitis of extremity: lower extremity Qualified Code(s): L03.116 - Cellulitis of left lower limb Status: Acute Plan 59-year-old female presents with left foot pain/erythema . 1. left foot cellulitis not septic lactic acid normal elevated whbc 13.5 ,javier and crp elevated. blood cultures pending on vanco, vanco trough moniterng as per pharmacy,cefepime. Id eval 2. Dm 2: not on dm meds as per [facility] records Hba1c was 5.5 in . will check Hba1c levels moniter on dm diet. 3.MARY- does not use CPAP from many years. 4.mood disorder- continue mood stabilizers DVT prophylaxis with Lovenox. Above management discussed the patient detail and he understand and in agreement with the above plan, time spent 70 minutes. Time Spent With Patient Time: Total time managing care of this patient today ____ minutes. Quality Stroke Does the patient have a stroke diagnosis?: No VTE Prior VTE?: No VTE Risk Level:: Medical - moderate - high VTE Device Contraindication: N/A - Device Ordered VTE Drug Contraindication: N/A - Med Ordered
[2022-11-28 18:07] LABS: Estimated Average Glucose 105 mg/dL; Hemoglobin A1c % 5.3 % (<6.0)
[2022-11-28 19:47] LABS: Glucose, Whole Blood 92 mg/dL (60-115)
[2022-11-28] MEDS: Acetaminophen 325 MG TABLET 650 MG PO (19:53)
[2022-11-28] MEDS: Enoxaparin Sodium 40 MG/0.4 ML SYRINGE SUBCUT (19:53)
[2022-11-28 20:31] LABS: Glucose, Whole Blood 92 mg/dL (60-115)
[2022-11-28] MEDS: bisacodyL 5 MG TABLET.DR 10 MG PO (22:39)
[2022-11-28] MEDS: Gabapentin 100 MG CAPSULE PO (22:39)
[2022-11-28] MEDS: Amitriptyline HCl 25 MG TABLET PO (22:40)
[2022-11-28] MEDS: Montelukast Sodium 10 MG TABLET PO (22:40)
[2022-11-28] MEDS: 0.9 % Sodium Chloride Flush 3 ML SYRINGE IVFLUSH (23:41)
[2022-11-29] VITALS (7 sets, daily range): BP systolic 110–122; BP diastolic 59–69; PULSE 57–70; RESP 16–18; TEMP 36.1–36.8; O2SAT 94–99
[2022-11-29] MEDS: cefEPime HCl 2 GM in 0.9 % Sodium Chloride 50 ML IV ×2 (02:36→14:42)
[2022-11-29] MEDS: Acetaminophen 325 MG TABLET 650 MG PO ×2 (04:40→19:15)
[2022-11-29] MEDS: vancomycin HCL 1,000 MG in 0.9 % Sodium Chloride 250 ML 270 MG IV ×2 (04:42→17:37)
--- NOTE | 2022-11-29 06:18 | PC.NURSE ---
00:00 and 04:00 monitoring coordinator showed Vpaced with occasional PVCs and underlying Afib per [facility] [employer]
[2022-11-29 06:51] LABS: Creatinine Clr Calc Pharmacy 87.6; Estimated Glomerular Filt Rate > 60
[2022-11-29 07:06] LABS: Glucose, Whole Blood 100 mg/dL (60-115)
[2022-11-29] MEDS: Cyanocobalamin (Vitamin B-12) 1,000 MCG TABLET 1000 MCG PO (08:33)
[2022-11-29] MEDS: Calcium + Vitamin D 250 MG TABLET 500 MG PO (08:33)
[2022-11-29] MEDS: Gabapentin 100 MG CAPSULE PO ×3 (08:33→19:14)
[2022-11-29] MEDS: hydroCHLOROthiazide 12.5 MG TABLET PO (08:33)
[2022-11-29] MEDS: Sertraline HCL 50 MG TABLET PO (08:34)
[2022-11-29] MEDS: Folic Acid 1 MG TABLET PO (08:34)
[2022-11-29] MEDS: Clopidogrel Bisulfate 75 MG TABLET PO (08:34)
[2022-11-29] MEDS: Azithromycin 250 MG TABLET PO (08:34)
[2022-11-29] MEDS: Fluticasone/Vilanterol 200/25 BLST.W.DEV 1 PUFF INHALE (09:07)
--- NOTE | 2022-11-29 09:18 | MHC.CM.PN ---
HELMS 11/29. Pt is from home, lives alone and has daily [facility] care (is not sure how many hrs/wk), uses a cane and walker. D/C plan is to return home with resumption of previous [facility] [employer] services. Pt will need assistance with transportation back home. HCP on file and verified. PCP: Ting Hampton
[2022-11-29 11:21] LABS: Glucose, Whole Blood 119 mg/dL (60-115)
--- NOTE | 2022-11-29 13:42 | HO.PM.IMPN ---
Subjective Subjective Date of Service: 11/29/22 Interval History: left foot pain/erythem a Review of Systems seems foot pain /erythema slightly improving Physical Exam Vital Signs: Vital Signs: Last Vital Signs Temp 98.3 F 11/29/22 12:00 Pulse 65 11/29/22 12:00 Resp 17 11/29/22 12:00 BP 122/67 11/29/22 12:00 Pulse Ox 99 11/29/22 12:00 O2 Del Method Room Air 11/29/22 12:00 BMI result Body Mass Index 29.3 Appearance: Alert.? Oriented X3.? not in distress.? cvs: rrr, [id number] , no murmur res: clear to auscultation ,no rhonchii or wheezing abd: no rebound or guarding ,nt, bs present. ext pulses present , no cyanosis left foot sweling and erythema ,no flacutation or discharge ,has very small scab area in midfoot. neuro: axo3 , nonfocal. Objective Data Active Medications Acetaminophen (Acetaminophen 325 Mg Tablet) 650 mg PO Q8H PRN PRN Reason: pain Last Admin: 11/29/22 04:40 Dose: 650 mg Documented By: WILEY Albuterol Sulfate (Albuterol Sulfate (0.083%) 2.5 Mg/3 Ml Vial.Neb) 2.5 mg INHALE Q4H PRN PRN Reason: wheezing Albuterol Sulfate (Albuterol Sulfate 90 Mcg 8 Gm Inhaler) 2 puff INHALE Q4H PRN PRN Reason: wheezing Amitriptyline HCl (Amitriptyline Hcl 25 Mg Tablet) 25 mg PO BEDTIME [facility] Last Admin: 11/28/22 22:40 Dose: 25 mg Documented By: WILEY Azithromycin (Azithromycin 250 Mg Tablet) 250 mg PO MOWEFR@0900 [facility] Last Admin: 11/29/22 08:34 Dose: 250 mg Documented By: ESEQUIEL Bisacodyl (Bisacodyl 5 Mg Tablet.) 10 mg PO BEDTIME [facility] Last Admin: 11/28/22 22:39 Dose: 10 mg Documented By: WILEY Calcium Carbonate/Cholecalciferol (Calcium + Vitamin D 250 Mg Tablet) 500 mg PO DAILY [facility] Last Admin: 11/29/22 08:33 Dose: 500 mg Documented By: ESEQUIEL Clopidogrel Bisulfate (Clopidogrel Bisulfate 75 Mg Tablet) 75 mg PO DAILY [facility] Last Admin: 11/29/22 08:34 Dose: 75 mg Documented By: ESEQUIEL Cyanocobalamin (Cyanocobalamin (Vitamin B-12) 1,000 Mcg Tablet) 1,000 mcg PO DAILY [facility] Last Admin: 11/29/22 08:33 Dose: 1,000 mcg Documented By: ESEQUIEL Dextrose (Dextrose 50 % 25 Gm/50 Ml Syringe) 25 gm IVPUSH Q15M PRN; Protocol PRN Reason: per Hypoglycemia Standing Ord. Enoxaparin Sodium (Enoxaparin Sodium 40 Mg/0.4 Ml Syringe) 40 mg SUBCUT Q24H [facility] Last Admin: 11/28/22 19:53 Dose: 40 mg Documented By: LOI-MAYR Fluticasone/Vilanterol (Fluticasone/Vilanterol 200/25 Blst.W.Dev) 1 puff INHALE RDAILY [facility] Last Admin: 11/29/22 09:07 Dose: 1 puff Documented By: DERKE Folic Acid (Folic Acid 1 Mg Tablet) 1 mg PO DAILY [facility] Last Admin: 11/29/22 08:34 Dose: 1 mg Documented By: ESEQUIEL Gabapentin (Gabapentin 100 Mg Capsule) 100 mg PO TID [facility] Last Admin: 11/29/22 08:33 Dose: 100 mg Documented By: ESEQUIEL Glucose (Glucose Gel 15 Gm Gel..Gram.) 15 gm PO Q15M PRN; Protocol PRN Reason: per Hypoglycemia Standing Ord. Hydrochlorothiazide (Hydrochlorothiazide 12.5 Mg Tablet) 12.5 mg PO DAILY [facility]; Protocol Last Admin: 11/29/22 08:33 Dose: 12.5 mg Documented By: ESEQUIEL Cefepime HCl 2 gm/ Sodium (Chloride) 50 mls @ 100 mls/hr IV Q12H [facility] Last Infusion: 11/29/22 03:22 Dose: Infused Documented By: WILEY Vancomycin HCl 1,000 mg/ (Sodium Chloride) 270 mls @ 270 mls/hr IV Q12H [facility] Last Infusion: 11/29/22 05:48 Dose: Infused Documented By: WILEY Melatonin (Melatonin 3 Mg Tablet) 6 mg PO BEDTIME PRN PRN Reason: insomnia Montelukast Sodium (Montelukast Sodium 10 Mg Tablet) 10 mg PO BEDTIME [facility] Last Admin: 11/28/22 22:40 Dose: 10 mg Documented By: WILEY Pharmacy Consult (Consult Rx Vancomycin Dosing) 1 each MISCELLANE DAILY PRN PRN Reason: Consult order Sertraline HCl (Sertraline Hcl 50 Mg Tablet) 50 mg PO DAILY [facility] Last Admin: 11/29/22 08:34 Dose: 50 mg Documented By: ESEQUIEL Sodium Chloride (0.9 % Sodium Chloride Flush 3 Ml Syringe) 3 ml IVFLUSH QSHIFT [facility] Last Admin: 11/29/22 08:37 Dose: Not Given Documented By: ESEQUIEL Non-Admin Reason: Previously Administered Tiotropium [place] (Tiotropium [place] 2.5 Mcg Inhaler) 2 puff INHALE RDAILY [facility] Last Admin: 11/29/22 09:07 Dose: 2 puff Documented By: DEREK Labs 11/28/22 12:51 11/29/22 06:27 Labs: Laboratory Results - last 24 hr 11/28/22 11/28/22 11/28/22 12:51 15:58 19:40 Immature Gran % (Auto) 0.6 H Neut % (Auto) 77.4 H Lymph % (Auto) 8.3 L [place] % (Auto) 13.2 H Eos % (Auto) 0.4 Baso % (Auto) 0.1 Lymph # (Auto) 1.1 L [place] # (Auto) 1.8 H Eos # (Auto) 0.1 Baso # (Auto) 0.0 Abs Immat Gran (auto) 0.08 H Absolute Neuts (auto) 10.4 H Absolute Nucleated RBC 0.000 Nucleated RBC % (auto) 0.0 Smear Tech's Comments VERIFIED Hold Purple Top Estim Creat Clear Calc Estimated GFR POC Glucose 92 Estimat Average Glucose 105 Hemoglobin A1c % 5.3 Urine Opiates Screen POSITIVE H Urine Fentanyl Screen Not Detected Ur Barbiturates Screen Not Detected Ur Phencyclidine Scrn Not Detected Ur Amphetamines Screen Not Detected U Benzodiazepines Scrn Not Detected Urine Cocaine Screen Not Detected U Marijuana (THC) Screen Not Detected 11/28/22 11/29/22 11/29/22 20:26 06:27 07:04 Immature Gran % (Auto) Neut % (Auto) Lymph % (Auto) [place] % (Auto) Eos % (Auto) Baso % (Auto) Lymph # (Auto) [place] # (Auto) Eos # (Auto) Baso # (Auto) Abs Immat Gran (auto) Absolute Neuts (auto) Absolute Nucleated RBC Nucleated RBC % (auto) Smear Tech's Comments Hold Purple Top SEE NOTE Estim Creat Clear Calc 87.6 Estimated GFR > 60 POC Glucose 92 100 Estimat Average Glucose Hemoglobin A1c % Urine Opiates Screen Urine Fentanyl Screen Ur Barbiturates Screen Ur Phencyclidine Scrn Ur Amphetamines Screen U Benzodiazepines Scrn Urine Cocaine Screen U Marijuana (THC) Screen 11/29/22 11:16 Immature Gran % (Auto) Neut % (Auto) Lymph % (Auto) [place] % (Auto) Eos % (Auto) Baso % (Auto) Lymph # (Auto) [place] # (Auto) Eos # (Auto) Baso # (Auto) Abs Immat Gran (auto) Absolute Neuts (auto) Absolute Nucleated RBC Nucleated RBC % (auto) Smear Tech's Comments Hold Purple Top Estim Creat Clear Calc Estimated GFR POC Glucose 119 H Estimat Average Glucose Hemoglobin A1c % Urine Opiates Screen Urine Fentanyl Screen Ur Barbiturates Screen Ur Phencyclidine Scrn Ur Amphetamines Screen U Benzodiazepines Scrn Urine Cocaine Screen U Marijuana (THC) Screen Assessment and Plan (1) Cellulitis: Status: Acute Plan 59-year-old female presents with left foot pain/erythema . 1. left foot cellulitis not septic lactic acid normal elevated whbc 13.5 ,javier and crp elevated. blood cultures pending on vanco, vanco trough moniterng as per pharmacy,cefepime. Id eval 2. Dm 2: not on dm meds as per [facility] records Hba1c was 5.5 in . will check Hba1c levels moniter on dm diet. 3.MARY- does not use CPAP from many years. 4.mood disorder- continue mood stabilizers DVT prophylaxis with Lovenox. ongoing inpatient need:left foot cellulitis -need iv antibiotics ,blood cultures pending . Time Spent With Patient Time: Total time managing care of this patient today ____ minutes. Quality Stroke Does the patient have a stroke diagnosis?: No VTE Prior VTE?: No VTE Risk Level:: Medical - moderate - high VTE Device Contraindication: N/A - Device Ordered VTE Drug Contraindication: N/A - Med Ordered
[2022-11-29 16:05] LABS: Vancomycin Random 10.7 mcg/mL (15-20)
[2022-11-29 16:34] LABS: Glucose, Whole Blood 124 mg/dL (60-115)
[2022-11-29] MEDS: Enoxaparin Sodium 40 MG/0.4 ML SYRINGE SUBCUT (17:36)
[2022-11-29] MEDS: 0.9 % Sodium Chloride Flush 3 ML SYRINGE IVFLUSH (17:36)
[2022-11-29] MEDS: bisacodyL 5 MG TABLET.DR 10 MG PO (19:14)
[2022-11-29] MEDS: Tamsulosin HCL 0.4 MG CAPSULE PO (19:14)
[2022-11-29] MEDS: Montelukast Sodium 10 MG TABLET PO (19:14)
[2022-11-29] MEDS: Amitriptyline HCl 25 MG TABLET PO (19:14)
[2022-11-29] MEDS: Melatonin 3 MG TABLET 6 MG PO (19:14)
[2022-11-29 20:53] LABS: Glucose, Whole Blood 160 mg/dL (60-115)
[2022-11-30] VITALS (7 sets, daily range): BP systolic 94–139; BP diastolic 52–64; PULSE 57–78; RESP 16–20; TEMP 36–36.9; O2SAT 94–98
[2022-11-30] MEDS: cefEPime HCl 2 GM in 0.9 % Sodium Chloride 50 ML IV (02:26)
[2022-11-30] MEDS: 0.9 % Sodium Chloride Flush 3 ML SYRINGE IVFLUSH (02:27)
[2022-11-30] MEDS: vancomycin HCL 1,000 MG in 0.9 % Sodium Chloride 250 ML 270 MG IV (04:17)
[2022-11-30 06:39] LABS: Creatinine Clr Calc Pharmacy 94.3; Estimated Glomerular Filt Rate > 60
[2022-11-30 07:18] LABS: Glucose, Whole Blood 112 mg/dL (60-115)
[2022-11-30] MEDS: Fluticasone/Vilanterol 200/25 BLST.W.DEV 1 PUFF INHALE (08:18)
[2022-11-30 08:43] LABS: C Reactive Protein 25.24 mg/dL (< or = 0.50)
[2022-11-30 09:15] LABS: Erythrocyte Sedimentation Rate 53 MM/HR (0-20)
[2022-11-30] MEDS: Calcium + Vitamin D 250 MG TABLET 500 MG PO (09:22)
[2022-11-30] MEDS: hydroCHLOROthiazide 12.5 MG TABLET PO (09:22)
[2022-11-30] MEDS: Gabapentin 100 MG CAPSULE PO (09:22)
[2022-11-30] MEDS: Folic Acid 1 MG TABLET PO (09:22)
[2022-11-30] MEDS: Clopidogrel Bisulfate 75 MG TABLET PO (09:22)
[2022-11-30] MEDS: Cyanocobalamin (Vitamin B-12) 1,000 MCG TABLET 1000 MCG PO (09:22)
[2022-11-30] MEDS: Sertraline HCL 50 MG TABLET PO (09:22)
--- NOTE | 2022-11-30 12:23 | HO.PM.IMPN ---
Subjective Subjective Date of Service: 11/30/22 Interval History: foot cellulitis Review of Systems still has foot pain erythema improving no fevers Physical Exam Vital Signs: Vital Signs: Last Vital Signs Temp 98.0 F 11/30/22 11:29 Pulse 72 11/30/22 11:29 Resp 16 11/30/22 11:29 BP 100/57 L 11/30/22 11:29 Pulse Ox 95 11/30/22 11:29 O2 Del Method Room Air 11/30/22 11:29 BMI result Body Mass Index 29.3 Appearance: Alert.? Oriented X3.? not in distress.? cvs: rrr, [id number] , no murmur res: clear to auscultation ,no rhonchii or wheezing abd: no rebound or guarding ,nt, bs present. ext pulses present , no cyanosis left foot sweling and erythema improving ,no flacutation or discharge ,has very small scab area in midfoot. neuro: axo3 , nonfocal. Objective Data Active Medications Acetaminophen (Acetaminophen 325 Mg Tablet) 650 mg PO Q8H PRN PRN Reason: pain Last Admin: 11/29/22 19:15 Dose: 650 mg Documented By: RIN Albuterol Sulfate (Albuterol Sulfate (0.083%) 2.5 Mg/3 Ml Vial.Neb) 2.5 mg INHALE Q4H PRN PRN Reason: wheezing Albuterol Sulfate (Albuterol Sulfate 90 Mcg 8 Gm Inhaler) 2 puff INHALE Q4H PRN PRN Reason: wheezing Amitriptyline HCl (Amitriptyline Hcl 25 Mg Tablet) 25 mg PO BEDTIME [facility] Last Admin: 11/29/22 19:14 Dose: 25 mg Documented By: RIN Azithromycin (Azithromycin 250 Mg Tablet) 250 mg PO MOWEFR@0900 [facility] Last Admin: 11/29/22 08:34 Dose: 250 mg Documented By: COTEMA Bisacodyl (Bisacodyl 5 Mg Tablet.) 10 mg PO BEDTIME [facility] Last Admin: 11/29/22 19:14 Dose: 10 mg Documented By: RIN Calcium Carbonate/Cholecalciferol (Calcium + Vitamin D 250 Mg Tablet) 500 mg PO DAILY [facility] Last Admin: 11/30/22 09:22 Dose: 500 mg Documented By: ANIYA Clopidogrel Bisulfate (Clopidogrel Bisulfate 75 Mg Tablet) 75 mg PO DAILY [facility] Last Admin: 11/30/22 09:22 Dose: 75 mg Documented By: ANIYA Cyanocobalamin (Cyanocobalamin (Vitamin B-12) 1,000 Mcg Tablet) 1,000 mcg PO DAILY [facility] Last Admin: 11/30/22 09:22 Dose: 1,000 mcg Documented By: ANIYA Dextrose (Dextrose 50 % 25 Gm/50 Ml Syringe) 25 gm IVPUSH Q15M PRN; Protocol PRN Reason: per Hypoglycemia Standing Ord. Enoxaparin Sodium (Enoxaparin Sodium 40 Mg/0.4 Ml Syringe) 40 mg SUBCUT Q24H [facility] Last Admin: 11/29/22 17:36 Dose: 40 mg Documented By: ALEXANDREA Fluticasone/Vilanterol (Fluticasone/Vilanterol 200/25 Blst.W.Dev) 1 puff INHALE RDAILY [facility] Last Admin: 11/30/22 08:18 Dose: 1 puff Documented By: ELIU Folic Acid (Folic Acid 1 Mg Tablet) 1 mg PO DAILY [facility] Last Admin: 11/30/22 09:22 Dose: 1 mg Documented By: ANIYA Gabapentin (Gabapentin 100 Mg Capsule) 100 mg PO TID [facility] Last Admin: 11/30/22 09:22 Dose: 100 mg Documented By: ANIYA Glucose (Glucose Gel 15 Gm Gel..Gram.) 15 gm PO Q15M PRN; Protocol PRN Reason: per Hypoglycemia Standing Ord. Hydrochlorothiazide (Hydrochlorothiazide 12.5 Mg Tablet) 12.5 mg PO DAILY [facility]; Protocol Last Admin: 11/30/22 09:22 Dose: 12.5 mg Documented By: ANIYA Cefepime HCl 2 gm/ Sodium (Chloride) 50 mls @ 100 mls/hr IV Q12H [facility] Last Infusion: 11/30/22 03:00 Dose: Infused Documented By: RIN Vancomycin HCl 1,000 mg/ (Sodium Chloride) 270 mls @ 270 mls/hr IV Q12H [facility] Last Infusion: 11/30/22 05:22 Dose: Infused Documented By: RIN Melatonin (Melatonin 3 Mg Tablet) 6 mg PO BEDTIME PRN PRN Reason: insomnia Last Admin: 11/29/22 19:14 Dose: 6 mg Documented By: RIN Montelukast Sodium (Montelukast Sodium 10 Mg Tablet) 10 mg PO BEDTIME [facility] Last Admin: 11/29/22 19:14 Dose: 10 mg Documented By: RIN Pharmacy Consult (Consult Rx Vancomycin Dosing) 1 each MISCELLANE DAILY PRN PRN Reason: Consult order Sertraline HCl (Sertraline Hcl 50 Mg Tablet) 50 mg PO DAILY [facility] Last Admin: 11/30/22 09:22 Dose: 50 mg Documented By: ANIYA Sodium Chloride (0.9 % Sodium Chloride Flush 3 Ml Syringe) 3 ml IVFLUSH QSHIFT [facility] Last Admin: 11/30/22 09:25 Dose: 3 ml Documented By: ANIYA Tamsulosin HCl (Tamsulosin Hcl 0.4 Mg Capsule) 0.4 mg PO BEDTIME [facility] Last Admin: 11/29/22 19:14 Dose: 0.4 mg Documented By: RIN Tiotropium [place] (Tiotropium [place] 2.5 Mcg Inhaler) 2 puff INHALE RDAILY [facility] Last Admin: 11/30/22 08:18 Dose: 2 puff Documented By: ELIU Labs 11/30/22 05:35 11/30/22 05:35 Labs: Laboratory Results - last 24 hr 11/29/22 11/29/22 11/29/22 15:10 16:30 20:49 MCV MCH MCHC RDW Plt Count MPV Immature Gran % (Auto) Neut % (Auto) Lymph % (Auto) [place] % (Auto) Eos % (Auto) Baso % (Auto) Lymph # (Auto) [place] # (Auto) Eos # (Auto) Baso # (Auto) Abs Immat Gran (auto) Absolute Neuts (auto) Absolute Nucleated RBC Nucleated RBC % (auto) ESR Hold Purple Top Estim Creat Clear Calc Estimated GFR POC Glucose 124 H 160 H C-Reactive Protein Random Vancomycin 10.7 L 11/30/22 11/30/22 11/30/22 05:35 05:55 07:14 MCV 89.0 MCH 29.3 MCHC 33.0 RDW 13.4 Plt Count 332 MPV 9.9 Immature Gran % (Auto) 0.5 H Neut % (Auto) 74.4 H Lymph % (Auto) 10.7 L [place] % (Auto) 12.7 H Eos % (Auto) 1.3 Baso % (Auto) 0.4 Lymph # (Auto) 0.9 L [place] # (Auto) 1.1 Eos # (Auto) 0.1 Baso # (Auto) 0.0 Abs Immat Gran (auto) 0.04 H Absolute Neuts (auto) 6.2 Absolute Nucleated RBC 0.000 Nucleated RBC % (auto) 0.0 ESR 53 H Hold Purple Top SEE NOTE Estim Creat Clear Calc 94.3 Estimated GFR > 60 POC Glucose 112 C-Reactive Protein 25.24 H Random Vancomycin 11/30/22 11:05 MCV MCH MCHC RDW Plt Count MPV Immature Gran % (Auto) Neut % (Auto) Lymph % (Auto) [place] % (Auto) Eos % (Auto) Baso % (Auto) Lymph # (Auto) [place] # (Auto) Eos # (Auto) Baso # (Auto) Abs Immat Gran (auto) Absolute Neuts (auto) Absolute Nucleated RBC Nucleated RBC % (auto) ESR Hold Purple Top Estim Creat Clear Calc Estimated GFR POC Glucose 158 H C-Reactive Protein Random Vancomycin Microbiology Microbiology Results: Microbiology 11/28/22 13:42 Blood Culture - Preliminary Blood - Venous No growth after 24 hours. 11/28/22 12:51 Blood Culture - Preliminary Blood - Venous No growth after 24 hours. Assessment and Plan (1) Cellulitis: Status: Acute (2) Elevated WBC count: Status: Acute Plan 59-year-old female presents with left foot pain/erythema . 1. left foot cellulitis not septic lactic acid normal elevated wbc ,esr and crp elevated. foot xray-Soft tissue swelling about the first metatarsophalangeal joint with a small amount of calcification medial to the first metatarsal head. check uric acid blood cultures pending on vanco, vanco trough moniterng as per pharmacy,cefepime. Id eval 2. Dm 2: not on dm meds as per [facility] records Hba1c was 5.5 in . will check Hba1c levels moniter on dm diet. 3.MARY- does not use CPAP from many years. 4.mood disorder- continue mood stabilizers DVT prophylaxis with Lovenox. ongoing inpatient need:left foot cellulitis -need iv antibiotics ,blood cultures pending . Time Spent With Patient Time: Total time managing care of this patient today ____ minutes. Quality Stroke Does the patient have a stroke diagnosis?: No VTE Prior VTE?: No VTE Risk Level:: Medical - moderate - high VTE Device Contraindication: N/A - Device Ordered VTE Drug Contraindication: N/A - Med Ordered
[2022-11-30 15:22] LABS: Uric Acid 3.7 mg/dL (2.4-5.7)
--- NOTE | 2022-11-30 16:08 | HE.PHANOTE ---
RE: vanco Trough on 11/30 came back at 11.0; increased dose to 1250mg Q12H with predicted trough of 12.8 mg/L, AUC of 478 mg/L. Next level to be drawn 12/01 @1500 due to timing
[2022-11-30] MEDS: Enoxaparin Sodium 40 MG/0.4 ML SYRINGE SUBCUT (16:19)
[2022-11-30] MEDS: Montelukast Sodium 10 MG TABLET PO (20:52)
[2022-12-01] VITALS: BP 136/82; PULSE 63; RESP 16; TEMP 36.6; O2SAT 97
[2022-12-01 03:57] VITALS: BP 132/83; PULSE 67; RESP 18; TEMP 36.2; O2SAT 100
[2022-12-01 05:48] LABS: Creatinine Clr Calc Pharmacy 94.3; Estimated Glomerular Filt Rate > 60
[2022-12-01 07:38] VITALS: BP 146/62; PULSE 59; RESP 16; TEMP 36.1; O2SAT 93
[2022-12-01 11:46] VITALS: PULSE 59; RESP 18; O2SAT 93
[2022-12-01 12:00] VITALS: BP 123/62; PULSE 68; RESP 18; TEMP 36.1; O2SAT 97
--- NOTE | 2022-12-01 12:20 | PM.DS ---
DS: Providers Provider Date of Service: 12/01/22 Date of admission: 11/28/22 16:51 Date of discharge: 12/01/22 Primary care physician: Ting Hampton MD Consults: 11/30/22 11:15 Consult to Infectious Diseases Routine Consulting Provider: [facility] Infectious Disease Reason for consultation: left foot cellulitis Has provider been notified: No Attending physician on discharge: Jenn Littlejohn Discharging clinician: Jenn Littlejohn DS: Diagnosis Discharge Diagnosis (1) Cellulitis: Status: Acute (2) Elevated WBC count: Status: Acute DS: Summary Hospital Course Hospital Course: 61-year-old female with past medical history of COPD/asthma, GERD, depression, diabetes, HLD, migraine headache, MRAY noncompliant with CPAP history of aorti valve replacement(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 This led to aortic valve replacement with a homograft,This was complicated by complete heart block leading to single-chamber pacemaker.) .here with c/o atraumatic L foot pain with redness, swelling and chills x 4 days. She tells me that a maggot came out of the closed scab on top of foot. She denies any trauma to the foot . Denies any new complaint of chest pain or shortness of breath or abdominal pain or fever or chills or nausea or vomiting Denies any cough Denies any weakness or numbness. ed: wbc:13.5 crp 31 esr : 45 XR/XR foot LT min 3V IMPRESSION: Soft tissue swelling about the first metatarsophalangeal joint with a small amount of calcification medial to the first metatarsal head. Hospital course: Patient came with the foot cellulitis after she got small abrasion on the middle of the foot. Patient was started on IV antibiotics, blood cultures sent. ESR and CRP was elevated. With above supportive management with antibiotics patient seems to be improved significantly, she is walking without pain. Leukocytosis resolved, CRP is improving ,no fever. Patient will go home with p.o. antibiotics doxycycline 100 mg by mouth twice daily for 7 days, meanwhile eat hold p.o. azithromycin until she is on doxycycline. plan: complete p.o. antibiotics doxycycline 100 mg by mouth twice daily for 7 days, meanwhile eat hold p.o. azithromycin until she is on doxycycline. follow up with pcp outpatient. Assessment plan coordination time spent 50 minute. Time Spent with Patient Time attestation: Total time managing care of this patient today ____ minutes. Discharge coordination time: Greater than 30 minutes Quality: Safe Use of Opioids Does Pt have an Active Cancer Diagnosis on the Problem List?: No Quality: Stroke Does the patient have a stroke diagnosis?: No Physical Exam Vital Signs: Vital Signs: Last Vital Signs Temp 97.0 F 12/01/22 07:38 Pulse 59 12/01/22 11:46 Resp 18 12/01/22 11:46 BP 146/62 H 12/01/22 07:38 Pulse Ox 93 12/01/22 07:38 O2 Del Method Room Air 12/01/22 07:38 BMI result Body Mass Index 29.3 Appearance: Alert.? Oriented X3.? not in distress.? cvs: rrr, [id number] , no murmur res: clear to auscultation ,no rhonchii or wheezing abd: no rebound or guarding ,nt, bs present. ext pulses present , no cyanosis left foot sweling and erythema improved, small abrasion area healed. neuro: axo3 , nonfocal. DS: Data Data Completed and Pending Completed studies during hospitalization [Text1]: Procedures Assistance with Respiratory Ventilation, Less than 24 Consecutive Hours, Continuous Positive Airway Pressure (10/21/22) Labs on day of discharge: Laboratory Results - last 24 hr 11/30/22 11/30/22 11/30/22 05:35 15:06 16:16 Hold Purple Top Creatinine Estim Creat Clear Calc Estimated GFR POC Glucose 123 H Uric Acid 3.7 Random Vancomycin 11.0 L 11/30/22 12/01/22 12/01/22 20:54 05:20 07:37 Hold Purple Top SEE NOTE Creatinine 0.53 Estim Creat Clear Calc 94.3 Estimated GFR > 60 POC Glucose 134 H 107 Uric Acid Random Vancomycin 12/01/22 11:48 Hold Purple Top Creatinine Estim Creat Clear Calc Estimated GFR POC Glucose 121 H Uric Acid Random Vancomycin Preliminary micro results at discharge 11/28/22 13:42 Blood Culture - Preliminary Blood - Venous No growth after 48 hours. 11/28/22 12:51 Blood Culture - Preliminary Blood - Venous No growth after 48 hours. Discharge Plan Discharge Anticipated Discharge Date/Time: 12/01/22 12:13 Patient Disposition: Home, Self-Care Discharge Diagnosis: Foot cellulitis Referrals: Ting Packer MD [Primary Care Provider] - 1 Week Discharge Medications: New doxycycline hyclate 100 mg capsule 100 mg PO BID Qty: 14 0RF Continued fluticasone propion-salmeterol [Advair Diskus] 500-50 mcg/dose blister with device 1 ea INHALATION BID Qty: 60 0RF tiotropium bromide [Spiriva with HandiHaler] 18 mcg capsule, w/inhalation device 1 cap inhalation DAILY acetaminophen 650 mg tablet extended release 650 mg PO Q8H PRN (Reason: pain) montelukast 10 mg tablet 10 mg PO BEDTIME bisacodyl 5 mg tablet,delayed release (DR/EC) 10 mg PO BEDTIME gabapentin 100 mg capsule 100 mg PO TID sertraline 50 mg tablet 50 mg PO DAILY calcium carbonate-vitamin D3 600 mg-10 mcg (400 unit) tablet 1 tab PO DAILY hydrochlorothiazide 12.5 mg tablet 12.5 mg PO DAILY melatonin 5 mg tablet 5 mg PO BEDTIME PRN (Reason: insomnia) albuterol sulfate [Ventolin HFA] 90 mcg/actuation HFA aerosol inhaler 2 puff inhalation Q4H PRN (Reason: wheezing) clopidogrel 75 mg tablet 75 mg PO DAILY amitriptyline 25 mg tablet 25 mg PO BEDTIME folic acid 1 mg tablet 1 mg PO DAILY cyanocobalamin (vitamin B-12) 1,000 mcg tablet 1,000 mcg PO DAILY albuterol sulfate 2.5 mg /3 mL (0.083 %) solution for nebulization 2.5 mg inhalation Q4-6H PRN (Reason: wheezing) Held azithromycin 250 mg tablet 250 mg PO MOWEFR@0900 Qty: 12 0RF Hold Instructions: Resume on 12/08/22. Discharge Orders: Discharge Order (Routine); Ordered 12/01/22 Ordered By: Jenn Littlejohn Diet: Advance to usual diet Activity on Discharge: As tolerated Stand Alone Forms: Patient Portal Discharge page Care Plan Goals: Patient came with the foot cellulitis after she got small abrasion on the middle of the foot. Patient was started on IV antibiotics, blood cultures sent. ESR and CRP was elevated. With above supportive management with antibiotics patient seems to be improved significantly, she is walking without pain. Leukocytosis resolved, CRP is improving ,no fever. Patient will go home with p.o. antibiotics doxycycline 100 mg by mouth twice daily for 7 days, meanwhile eat hold p.o. azithromycin until she is on doxycycline. Health Concerns: As above. Plan of Treatment: As above. Assessment: As above. Patient Instructions: Cellulitis (ED)
--- NOTE | 2022-12-01 12:41 | MHC.CM.PN ---
Patient is discharged to home self care. 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
== END 2022-12-01 13:45 | disposition home or self-care (01) ==
LOC: HO.ED 16:02 → HO.EDOVER 17:46 → HO.S3 18:50
PROVIDERS: Admitting Provider Internal Medicine; Emergency Provider Emergency Medicine; PCP Internal Medicine; Visit Provider Internal Medicine
DX: L03.116 Cellulitis of left lower limb (principal); D72.829 Elevated white blood cell count, unspecified; J44.9 Chronic obstructive pulmonary disease, unspecified; F39 Unspecified mood [affective] disorder; E11.9 Type 2 diabetes mellitus without complications; G47.33 Obstructive sleep apnea (adult) (pediatric); K21.9 Gastro-esophageal reflux disease without esophagitis; F32.A Depression, unspecified; E78.5 Hyperlipidemia, unspecified; Z95.0 Presence of cardiac pacemaker
CPT/HCPCS: 36415; 73630; 80048; 80076; 80202; 80307; 82565; 82947; 83036; 83605; 83735; 84550; 85025; 85652; 86140; 87040; 94640; 96365; 96366; 96367; 96372; 96375; 99221; 99285; J0692; J1650; J2270; J2405; J3370; J3371

== ENCOUNTER → 2022-11-28 12:49 | Outpatient (BNV) | payer MEDICAID, SELFPAY | PROVIDERS: Emergency Provider Emergency Medicine; PCP Internal Medicine; Visit Provider Internal Medicine | DX: L03.116 Cellulitis of left lower limb (principal); D72.829 Elevated white blood cell count, unspecified | CPT/HCPCS: 99222; 99232; 99239 ==

== ENCOUNTER 2022-12-11 17:08 | Emergency (ER) | payer MEDICAID, SELFPAY ==
--- NOTE | ~2022-12-11 | US_ITS ---
EXAMINATION: US VENOUS ULTRASOUND WITH DOPPLER LOWER EXTREMITY, LEFT CLINICAL INFORMATION: Left calf pain and swelling COMPARISON: None available. TECHNIQUE: Ultrasound of the deep veins is performed from the hip to the calf with compression sonography and color and pulse Doppler assessment. Spectral analysis with color-flow imaging is performed. FINDINGS: There is normal venous compression and respiratory variation and augmented flow. The visualized common femoral vein, superficial femoral vein, profunda femoral vein, popliteal vein, and the trifurcation region shows no evidence of deep venous thrombosis. The contralateral right common femoral vein appeared normal. There is a 4.0 x 1.5 x 3.0 cm popliteal cyst present. If the patient's symptoms persist, followup ultrasound in 5 days 7 days might be of value to exclude proximal propagation from a non-visualized calf vein. US/US venous duplex LE IMPRESSION: No DVT demonstrated in the left lower extremity.
--- NOTE | ~2022-12-11 | XR_ITS ---
EXAMINATION: XR KNEE, LEFT CLINICAL INFORMATION: Knee pain COMPARISON: Left knee 12/01/2021 TECHNIQUE: Four views of the left knee. FINDINGS: Again seen are tricompartmental degenerative changes in the knee with narrowing of all compartments and chondrocalcinosis with calcification in the medial and lateral menisci. There is a new knee joint effusion when compared to the prior study. No fractures or dislocations are seen. XR/XR knee LT 4V IMPRESSION: Tricompartmental degenerative changes with chondrocalcinosis and new knee joint effusion.
[2022-12-11 17:36] VITALS: BP 126/65; PULSE 68; RESP 18; TEMP 36.6; O2SAT 99; BMI 30.3
--- NOTE | 2022-12-11 17:45 | ED.GENADULT ---
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 She denies any associated fever, chills. Related Data Home Medications Medication Instructions Recorded Confirmed acetaminophen 650 mg 650 mg PO Q8H PRN pain 07/03/22 11/28/22 tablet,extended release albuterol sulfate 90 mcg/actuation 2 puff inhalation Q4H PRN wheezing 07/03/22 11/28/22 aerosol inhaler (Ventolin HFA) amitriptyline 25 mg tablet 25 mg PO BEDTIME 07/03/22 11/28/22 bisacodyl 5 mg tablet,delayed 10 mg PO BEDTIME 07/03/22 11/28/22 release calcium carbonate 600 mg-vitamin 1 tab PO DAILY 07/03/22 11/28/22 D3 10 mcg (400 unit) tablet clopidogrel 75 mg tablet 75 mg PO DAILY 07/03/22 11/28/22 cyanocobalamin (vitamin B-12) 1,000 mcg PO DAILY 07/03/22 11/28/22 1,000 mcg tablet folic acid 1 mg tablet 1 mg PO DAILY 07/03/22 11/28/22 gabapentin 100 mg capsule 100 mg PO TID 07/03/22 11/28/22 hydrochlorothiazide 12.5 mg tablet 12.5 mg PO DAILY 07/03/22 11/28/22 melatonin 5 mg tablet 5 mg PO BEDTIME PRN insomnia 07/03/22 11/28/22 montelukast 10 mg tablet 10 mg PO BEDTIME 07/03/22 11/28/22 sertraline 50 mg tablet 50 mg PO DAILY 07/03/22 11/28/22 tiotropium bromide 18 mcg capsule 1 cap inhalation DAILY 10/21/22 11/28/22 with inhalation device (Spiriva with HandiHaler) albuterol sulfate 2.5 mg/3 mL 2.5 mg inhalation Q4-6H PRN 11/28/22 11/28/22 (0.083 %) solution for nebulization wheezing Previous Rx's Medication Instructions Recorded azithromycin 250 mg tablet 250 mg PO MOWEFR@0900 asthma #12 10/26/22 tabs fluticasone 500 mcg-salmeterol 50 1 ea inhalation BID #60 ea 10/26/22 mcg/dose blistr powdr for inhalation (Advair Diskus) doxycycline hyclate 100 mg capsule 100 mg PO BID #14 caps 12/01/22 Allergies Allergy/AdvReac Type Severity Reaction Status Date / Time latex [LATEX] Allergy Severe DIFFICULTY Verified 11/08/22 15:18 BREATHING aspirin [Aspirin] Allergy Intermediate ITCHING, Verified 11/08/22 15:18 itchiness ciprofloxacin [From CIPRO] Allergy Intermediate DIAPHORESIS Verified 11/08/22 15:18 /PURITIS Penicillins [PENICILLINS] Allergy Unknown UNKNOWN Verified 11/08/22 15:18 JOSÉ Inhibitors AdvReac Intermediate COUGH Verified 11/08/22 15:18 [JOSÉ INHIBITORS] Review of Systems Review of Systems: Pertinent positives and negatives as stated in HPI [facility] Past Medical History Source: nursing notes reviewed Medical History MARY (obstructive sleep apnea) COPD (chronic obstructive pulmonary disease) MARY on CPAP Reactive airways dysfunction syndrome Rheumatoid arthritis Fibromyalgia GERD (gastroesophageal reflux disease) MARY (obstructive sleep apnea) Aortic valve endocarditis COPD (chronic obstructive pulmonary disease) COPD exacerbation Overactive bladder Bronchitis Allergic rhinitis COPD (chronic obstructive pulmonary disease) Asthma Hx of cardiac pacemaker Hx of migraines Hx of coronary artery disease History of urinary incontinence Hx of essential hypertension History of depression Hx of drug abuse Hx of hyperlipidemia Hx of allergic rhinitis History of enuresis Hx of osteoarthritis Hx of pilonidal cyst Family history of GERD History of arthritis Hx of diabetes mellitus Surgical History History of surgical removal of pilonidal cyst Hx of bilateral cataract extraction Hx of colonoscopy History of cystoscopy History of hysterectomy Hx of aortic valve replacement Hx laparoscopic cholecystectomy History of epidermal inclusion cyst excision Social History Social History Household Members: Other Household Members Other:: self Housing: Apartment Do you presently have visiting nurse or other home services: Yes (Home health aide) Alcohol intake: never Patient Tobacco Use Status: Current everyday Tobacco user Tobacco use type: Cigarette Cigarettes Per Day: 3 e-Cigarette/Vaping Use: Currently Using Second Hand Smoke Exposure: Yes Advance Directives: Yes Advance Directives on File: Yes Advance Directives Date on File: 11/08/21 service: No Current occupational status: unemployed and disabled Physical Exam ED Vital Signs: Vital Signs - 24 hr 12/11/22 17:36 12/11/22 19:19 12/11/22 19:19 Temperature 97.9 F 98.2 F 98.2 F Pulse Rate 68 68 68 Respiratory Rate 18 14 14 Blood Pressure 126/65 124/73 124/73 Pulse Oximetry 99 99 99 Oxygen Delivery Method Room Air Room Air Room Air BMI result Body Mass Index 30.3 VITAL SIGNS: Reviewed. GENERAL: Well developed, well nourished, in no acute distress. HEAD: Normocephalic/atraumatic EYES: PERRLA, EOMI LUNGS: Normal breath sounds. No adventitious sounds or accessory muscle use. SpO2<99> CARDIOVASCULAR: Regular rate and rhythm without noted murmurs ABDOMEN: Soft, non-tender, non-distended with bowel sounds. MUSCULOSKELETAL: No tenderness, deformities, or effusions noted on gross inspection. EXTREMITIES: No cyanosis, clubbing or edema. LEFT KNEE: There is no erythema/induration, mild knee effusion noted. SKIN: Inspection of the skin reveals no rashes NEUROLOGIC: Alert and oriented x 4. Strength and sensation to light touch were grossly intact x 4. Course Course Course Narrative: RME: 61 yold female presents to the ED for left knee pain, left calf pain, and left ankle swelling. xray and ultarsoun dordered Medications Administered Discontinued Medications Generic Name Dose Route Start Last Admin Trade Name Freq PRN Reason Stop Dose Admin Acetaminophen 975 mg 12/11/22 21:41 12/11/22 21:50 Acetaminophen 325 Mg Tablet PO 12/11/22 21:42 975 mg ONCE ONE Administration Medical Decision Making Medical Decision Making MDM Narrative: 61-year-old female with history and clinical presentation of atraumatic left knee effusion, x-ray demonstrates an osteoarthritis with tricompartmental degeneration and venous duplex is negative for DVT but demonstrates a Quinteros cyst. Compression dressing was applied and patient was given Tylenol and instructed to follow-up with primary care doctor. Differential Diagnosis Differential Diagnoses: The differential diagnosis associated with the presentation includes Please see the discussion above Discharge Plan Discharge Clinical Impression: Knee effusion, left Patient Disposition: Home, Self-Care Instructions: Osteoarthritis (ED), Swollen Knee Joint (ED) Additional Instructions: 1. Reanudar todos los medicamentos caseros seg?n lo recetado. Mantenga José Wrap en millard lugar para ayudar con el dolor. 2. Se recomienda Tylenol de venta sahra, aplique hielo en la piel no expuesta donell 10 a 15 minutos, de 3 a 4 veces al d?a. 3. Seguimiento con m?dico de atenci?n primaria. Regrese a la stacy de emergencias si los s?ntomas empeoran. 1. Resume all home medications as prescribed. Keep José wrap in place to help with pain. 2. Recommend [id number] Tylenol, apply ice to unexposed skin for 10-15 minutes, 3 to 4 times a day. 3. Follow-up with primary care doctor. Return to the ER for any worsening symptoms. Prescriptions: No Action azithromycin 250 mg tablet 250 mg PO MOWEFR@0900 Qty: 12 0RF Hold Instructions: Resume on 12/08/22. fluticasone propion-salmeterol [Advair Diskus] 500-50 mcg/dose blister with device 1 ea INHALATION BID Qty: 60 0RF tiotropium bromide [Spiriva with HandiHaler] 18 mcg capsule, w/inhalation device 1 cap inhalation DAILY acetaminophen 650 mg tablet extended release 650 mg PO Q8H PRN (Reason: pain) montelukast 10 mg tablet 10 mg PO BEDTIME bisacodyl 5 mg tablet,delayed release (DR/EC) 10 mg PO BEDTIME gabapentin 100 mg capsule 100 mg PO TID sertraline 50 mg tablet 50 mg PO DAILY calcium carbonate-vitamin D3 600 mg-10 mcg (400 unit) tablet 1 tab PO DAILY hydrochlorothiazide 12.5 mg tablet 12.5 mg PO DAILY melatonin 5 mg tablet 5 mg PO BEDTIME PRN (Reason: insomnia) albuterol sulfate [Ventolin HFA] 90 mcg/actuation HFA aerosol inhaler 2 puff inhalation Q4H PRN (Reason: wheezing) clopidogrel 75 mg tablet 75 mg PO DAILY amitriptyline 25 mg tablet 25 mg PO BEDTIME folic acid 1 mg tablet 1 mg PO DAILY cyanocobalamin (vitamin B-12) 1,000 mcg tablet 1,000 mcg PO DAILY albuterol sulfate 2.5 mg /3 mL (0.083 %) solution for nebulization 2.5 mg inhalation Q4-6H PRN (Reason: wheezing) doxycycline hyclate 100 mg capsule 100 mg PO BID Qty: 14 0RF Referrals: Ting Packer MD [Primary Care Provider] - Interventions: ED Discharge Assessment Last Done: 12/11/22 22:50 Discharge Date/Time: 12/11/22 22:51 Print Language: Danish
[2022-12-11 19:19] VITALS: BP 124/73; PULSE 68; RESP 14; TEMP 36.8; O2SAT 99
[2022-12-11] MEDS: Acetaminophen 325 MG TABLET 975 MG PO (21:50)
== END 2022-12-11 22:51 | disposition home or self-care (01) ==
PROVIDERS: Emergency Provider Student in an Organized Health Care Education/Training Program; PCP Internal Medicine
DX: M25.462 Effusion, left knee (principal); R60.0 Localized edema; Z79.899 Other long term (current) drug therapy
CPT/HCPCS: 73564; 93971; 99284

== ENCOUNTER 2022-12-28 14:37 | Outpatient (AMB) | payer MEDICAID, SELFPAY ==
--- NOTE | 2022-12-28 15:00 | MHC.OFFVIS ---
Intake Vital Signs 12/28/22 15:01 Height 4 ft 11 in BP 110/62 Blood Pressure Location Lt brachial Position Sitting Pulse 69 Pulse Source Pulse Oximeter Pulse Oximetry (%) 99 Oxygen Delivery Method Room Air Intake Visit Reasons: pulm clearance Intake Note: pre-op clearance, needs juan manuel pt is in a lot of pain today, crying. Allergies latex [LATEX] Allergy (Severe, Verified 12/28/22 15:36) DIFFICULTY BREATHING aspirin [Aspirin] Allergy (Intermediate, Verified 12/28/22 15:36) ITCHING, itchiness ciprofloxacin [From CIPRO] Allergy (Intermediate, Verified 12/28/22 15:36) DIAPHORESIS/PURITIS Penicillins [PENICILLINS] Allergy (Unknown, Verified 12/28/22 15:36) UNKNOWN HEMALATHA Inhibitors [HEMALATHA INHIBITORS] Adverse Reaction (Intermediate, Verified 12/28/22 15:36) COUGH Medication List - Last Reconciled 12/28/22 by Wally Simpson MD acetaminophen ER 650 mg PO Q8H PRN albuterol sulfate 2.5 mg inhalation Q4-6H PRN albuterol sulfate 90 mcg/actuation (Ventolin HFA) 2 puffs inhalation Q4H PRN amitriptyline 25 mg PO BEDTIME azithromycin 250 mg PO MOWEFR@0900 bisacodyl 10 mg PO BEDTIME calcium carbonate-vitamin D3 600 mg-10 mcg (400 unit) 1 tab PO DAILY clopidogrel 75 mg PO DAILY cyanocobalamin (vitamin B-12) 1,000 mcg PO DAILY doxycycline hyclate 100 mg PO BID fluticasone propion-salmeterol 500-50 mcg/dose (Advair Diskus) 1 ea inhalation BID folic acid 1 mg PO DAILY gabapentin 100 mg PO TID hydrochlorothiazide 12.5 mg PO DAILY melatonin 5 mg PO BEDTIME PRN montelukast 10 mg PO BEDTIME sertraline 50 mg PO DAILY tiotropium bromide (Spiriva with HandiHaler) 1 cap inhalation DAILY Do you need a note to return to daycare/school/sports/work: No HPI pulm clearance HPI Details THIS 62 YEARS OLD FEMALE IS HERE TODAY AN URGENT VISIT , FOR PULMONARY CLEARANCE, TO UNDERGO A UROLOGIC PROCEDURE. I UNDERSTAND THAT THE PROCEDURE WILL BE CHANGE OF WIRE OF THE INTERSTIM WHICH HAS BEEN PREVIOUSLY IN PLACE SINCE 2011. PATIENT HAS A LONGSTANDING HISTORY OF OVERACTIVE BLADDER WHICH HAS NOT BEEN CONTROLLED WITH ORAL MEDS. HER PULMONARY HISTORY IS THAT OF RESTRICTIVE PULMONARY DISORDER WELL OBSTRUCTIVE AIRWAY DISORDER. SHE HAS HAD PREVIOUS CARDIAC SURGERY , AND HAS A MID STERNAL SCAR, WHICH HAS CONTRIBUTED TO RESTRICTIVE DISORDER. HER OBSTRUCTIVE AIRWAY DISORDER IS NOT DOCUMENTED WITH PULMONARY FUNCTION TEST, HOWEVER SHE IS FREQUENTLY NOTED TO HAVE BILATERAL WHEEZES AND THUS SHE IS BEING TREATED WITH COMBINATION OF ICS/ LABA WELL SPIRIVA HANDIHALER. THE PATIENT CONTINUES TO SMOKE, CURRENTLY 3 CIGARETTES A DAY. AT PRESENT HER BREATHING IS FAIRLY STABLE. SHE DOES NOT HAVE ANY ACTIVE CHEST INFECTION. SHE WAS ADMITTED TO [facility] IN AND TREATED FOR A MILD ACUTE EXACERBATION. CHEST X-RAY DID NOT SHOW ANY ACTIVE PNEUMONIA ARE ACTIVE LUNG DISEASE. TODAY SHE TELLS THAT HER BREATHING IS GOOD IT HAS BEEN. HER MAIN COMPLAINT IS SEVERE DISCOMFORT AND PAIN IN THE RIGHT BUTTOCK AREA, WHICH IS THE SITE OF PREVIOUS INTERSTIM, WIRE IN BATTERY PLACEMENT. [facility] Medical History (Updated 12/28/22 @ 15:50 by Wally Simpson MD) Smoking Restrictive airway disease MARY (obstructive sleep apnea) COPD (chronic obstructive pulmonary disease) MARY on CPAP Reactive airways dysfunction syndrome Rheumatoid arthritis Fibromyalgia GERD (gastroesophageal reflux disease) MARY (obstructive sleep apnea) Aortic valve endocarditis COPD (chronic obstructive pulmonary disease) COPD exacerbation Overactive bladder Bronchitis Allergic rhinitis COPD (chronic obstructive pulmonary disease) Asthma Hx of cardiac pacemaker Hx of migraines Hx of coronary artery disease History of urinary incontinence Hx of essential hypertension History of depression Hx of drug abuse Hx of hyperlipidemia Hx of allergic rhinitis History of enuresis Hx of osteoarthritis Hx of pilonidal cyst Family history of GERD History of arthritis Hx of diabetes mellitus Surgical History History of surgical removal of pilonidal cyst Hx of bilateral cataract extraction Hx of colonoscopy History of cystoscopy History of hysterectomy Hx of aortic valve replacement Hx laparoscopic cholecystectomy History of epidermal inclusion cyst excision Social History Household Members: Other Household Members Other:: self Housing: Apartment Do you presently have visiting nurse or other home services: Yes (Home health aide) Alcohol intake: never Patient Tobacco Use Status: Current everyday Tobacco user Tobacco use type: Cigarette Cigarettes Per Day: 3 e-Cigarette/Vaping Use: Currently Using Second Hand Smoke Exposure: Yes Advance Directives Date on File: 11/08/21 service: No Current occupational status: unemployed and disabled Review of Systems Const All systems reviewed & are unremarkable except as noted in HPI and below Eyes Reports no additional complaints ENT Reports nasal congestion (ON A DAILY BASIS) and Reports post nasal drip (OFF AND ON) Card Denies irregular heart rhythm and Denies leg edema Resp Reports as per HPI GI Reports no additional complaints Reports no additional complaints Musc Reports back pain and Reports arthralgias Skin/Breast Reports system reviewed and no additional complaints, except as documented Neuro Reports no additional complaints Psych Reports no additional complaints Endo Reports other (BEING TREATED FOR DIABETES MELLITUS) Physical Exam Vital Signs: Last Vital Signs Pulse 69 12/28/22 15:01 BP 110/62 12/28/22 15:01 Pulse Ox 99 12/28/22 15:01 Oxygen Delivery Method Room Air 12/28/22 15:01 Const General: comfortable (FREQUENT COUGH DURING CONVERSATION), no acute distress, alert and awake Orientation/consciousness: patient oriented x3 HEENT Head: Yes normal to inspection General nose exam: No nasal polyps present and No nasal discharge present Face and sinus: Yes sinuses nontender Mouth: oropharynx normal Throat: Yes posterior oropharynx normal Eyes General: appearance normal, both eyes and all related structures Neck Neck: Yes normal visual inspection, Yes no lymphadenopathy, Yes trachea midline and Yes no JVD Thyroid: Thyroid normal Chest Chest palpation & inspection: abnormal inspection of the chest (PATIENT HAS MIDLINE SCAR FROM PREVIOUS SURGERY), normal palpation of entire chest wall and no tenderness Resp Other: PERCUSSION NOTE RESONANT, BREATH SOUNDS ARE DISTANT, WITH PROLONGED EXPIRATORY PHASE. SHE DOES HAVE SCATTERED EXPIRATORY WHEEZES ON BOTH SIDES IN THE UPPER PART OF THE CHEST, BUT THE AMOUNT OF WHEEZING IS MUCH LESS THAN PREVIOUS EXAMINATIONS. Cardio Palpation: normal PMI Rate: regular rate Rhythm: regular rhythm Heart sounds: no gallops and no murmurs Peripheral pulses: Peripheral pulses 2+ throughout GI Palpation (GI): Soft to palpation, nontender, No hepatosplenomegaly present and no masses Auscultation: normal bowel sounds Back/Spine/Pelvis Thoracic/Lumbar Spine: thoracic and lumbar spine normal to inspection Skin General skin exam: no rashes or lesions noted Neuro General: patient oriented x3 and no focal motor deficits Cranial nerves: Yes CN's II-XII intact bilaterally Extrem General: Yes normal to inspection, Yes no clubbing, cyanosis or edema and Yes no calf tenderness Psych Appearance: grossly normal Speech and movement: Normal speech and movement present Office Procedures Spirometry Testing Spirometry Comments: pt performed maneuver to the best of her ability [id number]- Spirometry Results Reviewed Results Reviewed: SPIROMETRY PERFORMED IN THE OFFICE TODAY : FVC= 44 % FEV1= 41 % FEV1/FVC= 74 FEF 25-75 = 42 % C/W SEVERE RESTRICTIVE PULMONARY DISORDER. NO SIGNIFICANT OBSTRUCTIVE COMPONENT AT THIS TIME. THE NUMBERS COMPARED WITH HER PFT IN , OR FURTHER DECREASED. Assessment & Plan Assessment & Plan (1) Restrictive airway disease: Comment: THIS PATIENT HAS MODERATELY SEVERE RESTRICTIVE LUNG DISORDER, IT IS PARTLY CONTRIBUTED BY HER PREVIOUS STERNOTOMY AND HEALED SCAR FROM CARDIAC SURGERY Code(s): J98.4 - Other disorders of lung (2) MARY (obstructive sleep apnea): Comment: PATIENT DOES HAVE HISTORY OF OBSTRUCTIVE SLEEP APNEA BUT SHE STOPPED USING CPAP MANY YEARS AGO. CLAIMS THAT AT THIS TIME SHE IS SLEEPING OKAY. Code(s): G47.33 - Obstructive sleep apnea (adult) (pediatric) (3) Reactive airways dysfunction syndrome: Comment: THIS PATIENT HAS ASTHMA/COPD DISORDER, WITH FREQUENT BOUTS OF COUGH AND WHEEZING. CURRENTLY HER PULMONARY STATUS IS STABLE AND WELL CONTROLLED. IT SHOULD BE NOTED THAT SHE ALWAYS HAS SOME INSPIRATORY AND EXPIRATORY WHEEZES IN THE UPPER PARTS OF THE CHEST, PROBABLY DUE TO UPPER AIRWAY DYSFUNCTION TX: CONTINUE ADVAIR 500-5 0 1 INHALATION B.I.D. SPIRIVA HANDIHALER 1 CAPSULE DAILY, IPRATROPIUM-ALBUTEROL UPDRAFTS Q FOR 6 HOURS WHILE AWAKE. Code(s): J68.3 - Other acute and subacute respiratory conditions due to chemicals, gases, fumes and vapors (4) Allergic rhinitis: Comment: SHE HAS CHRONIC ALLERGIC RHINITIS WITH POSTNASAL DISCHARGE CONTRIBUTING TO HER COUGH. RELATIVELY CONTROLLED AND STABLE AT THIS TIME. RX: CONTINUE MONTELUKAST 10 MG DAILY. AND LORATADINE 10 MG ONCE A DAY P.R.N. Code(s): J30.9 - Allergic rhinitis, unspecified (5) Smoking: Comment: SHE HAS LONGSTANDING HISTORY OF SMOKING SHE HAS CUT DOWN THE SMOKING IN THE PAST FEW YEARS, STILL SMOKING ABOUT 3 CIGARETTES A DAY. HAS BEEN COUNSELED MANY TIMES TO STOP COMPLETELY. I THINK IT IS HER ANXIETY WHICH HE DRIVES HER TO SMOKE A FEW CIGARETTES EVERY DAY. Code(s): F17.200 - Nicotine dependence, unspecified, uncomplicated Plan: PREOP PULMONARY CLEARANCE. I THINK HER PULMONARY STATUS IS QUITE STABLE AND CLEAR AT THIS TIME. I DO NOT SEE ANY CONTRAINDICATION TO THE PLANNED PROCEDURE, HOWEVER FOR ANY MAJOR SURGERY OR PROLONGED GENERAL ANESTHESIA SHE IS A HIGH RISK PATIENT. Coding Level of Care Code Est Pt Level 4 (13881) Diagnoses Restrictive airway disease J98.4 MARY (obstructive sleep apnea) G47.33 Reactive airways dysfunction syndrome J68.3 Allergic rhinitis J30.9 Smoking F17.200 CPT Codes Spirometry - CPT: 53424- Spirometry ([id number])
[2022-12-28 15:01] VITALS: BP 110/62; PULSE 69; O2SAT 99
== END 2022-12-28 15:44 | disposition home or self-care (01) ==
PROVIDERS: PCP Internal Medicine; Visit Provider Internal Medicine
DX: J98.4 Other disorders of lung (principal)
CPT/HCPCS: 94010; 99214

== ENCOUNTER → 2022-12-28 14:37 | Outpatient (BNVA) | payer MEDICAID, SELFPAY | PROVIDERS: PCP Internal Medicine; Visit Provider Internal Medicine | DX: J98.4 Other disorders of lung (principal); J68.3 Other acute and subacute respiratory conditions due to chemicals, gases, fumes and vapors; J30.9 Allergic rhinitis, unspecified; G47.33 Obstructive sleep apnea (adult) (pediatric); F17.210 Nicotine dependence, cigarettes, uncomplicated | CPT/HCPCS: 94010; 99212 ==

== ENCOUNTER 2023-01-24 13:33 | Outpatient (AMB) | payer MEDICAID, SELFPAY ==
--- NOTE | 2023-01-24 13:48 | MHC.OFFVIS ---
Intake Intake Visit Reasons: follow up Intake Note: Patient is present for follow-up Urology Med: None Antibiotic Allergy: Cipro, Penicillins Blood Thinner: Plavix PVR- 130 mL Furnace Caretaker Required: No Accompanied by: Self / Same As Patient Allergies latex [LATEX] Allergy (Severe, Verified 01/24/23 13:49) DIFFICULTY BREATHING aspirin [Aspirin] Allergy (Intermediate, Verified 01/24/23 13:49) ITCHING, itchiness ciprofloxacin [From CIPRO] Allergy (Intermediate, Verified 01/24/23 13:49) DIAPHORESIS/PURITIS Penicillins [PENICILLINS] Allergy (Unknown, Verified 01/24/23 13:49) UNKNOWN HEMALATHA Inhibitors [HEMALATHA INHIBITORS] Adverse Reaction (Intermediate, Verified 01/24/23 13:49) COUGH Medication List - Last Reconciled 01/24/23 by Usman Vivas MD acetaminophen ER 650 mg PO Q8H PRN albuterol sulfate 2.5 mg inhalation Q4-6H PRN albuterol sulfate 90 mcg/actuation (Ventolin HFA) 2 puffs inhalation Q4H PRN amitriptyline 25 mg PO BEDTIME azithromycin 250 mg PO MOWEFR@0900 bisacodyl 10 mg PO BEDTIME calcium carbonate-vitamin D3 600 mg-10 mcg (400 unit) 1 tab PO DAILY clopidogrel 75 mg PO DAILY cyanocobalamin (vitamin B-12) 1,000 mcg PO DAILY doxycycline hyclate 100 mg PO BID fluticasone propion-salmeterol 500-50 mcg/dose (Advair Diskus) 1 ea inhalation BID folic acid 1 mg PO DAILY gabapentin 100 mg PO TID hydrochlorothiazide 12.5 mg PO DAILY melatonin 5 mg PO BEDTIME PRN montelukast 10 mg PO BEDTIME sertraline 50 mg PO DAILY tiotropium bromide (Spiriva with HandiHaler) 1 cap inhalation DAILY HPI HPI Comments History of Present Illness Details Ting is a pleasant Micronesian-speaking female. She is a patient of Dr. Hampton. She seen for the following urologic conditions - overactive bladder Micronesian translation provided by qualified medical aide Persistent right flank pain Think InterStim not working Will remove lead and generator Overactive bladder failed oral therapy. InterStim placed approximately 2011 requires addition of oxybutynin 10 mg for effect wears 1 pad during the day nocturia x3 urge incontinence prior interrogation shows increased resistance plan for exchange of wire and generator PFSH Medical History (Updated 12/28/22 @ 15:50 by Wally Simpson MD) Smoking Restrictive airway disease MARY (obstructive sleep apnea) COPD (chronic obstructive pulmonary disease) MARY on CPAP Reactive airways dysfunction syndrome Rheumatoid arthritis Fibromyalgia GERD (gastroesophageal reflux disease) MARY (obstructive sleep apnea) Aortic valve endocarditis COPD (chronic obstructive pulmonary disease) COPD exacerbation Overactive bladder Bronchitis Allergic rhinitis COPD (chronic obstructive pulmonary disease) Asthma Hx of cardiac pacemaker Hx of migraines Hx of coronary artery disease History of urinary incontinence Hx of essential hypertension History of depression Hx of drug abuse Hx of hyperlipidemia Hx of allergic rhinitis History of enuresis Hx of osteoarthritis Hx of pilonidal cyst Family history of GERD History of arthritis Hx of diabetes mellitus Surgical History History of surgical removal of pilonidal cyst Hx of bilateral cataract extraction Hx of colonoscopy History of cystoscopy History of hysterectomy Hx of aortic valve replacement Hx laparoscopic cholecystectomy History of epidermal inclusion cyst excision Social History Household Members: Other Household Members Other:: self Housing: Apartment Do you presently have visiting nurse or other home services: Yes (Home health aide) Alcohol intake: never Patient Tobacco Use Status: Current everyday Tobacco user Tobacco use type: Cigarette Cigarettes Per Day: 3 e-Cigarette/Vaping Use: Currently Using Second Hand Smoke Exposure: Yes Advance Directives Date on File: 11/08/21 service: No Current occupational status: unemployed and disabled Review of Systems Const Denies chills and Denies fever(s) Card Reports no additional complaints and Denies syncope Resp Denies cough GI Denies abdominal pain and Denies heartburn Reports as per HPI and Denies change in libido Neuro Denies syncope Psych Denies change in libido Endo Denies change in libido Physical Exam Const General: cooperative, healthy appearing, comfortable and no acute distress Orientation/consciousness: patient oriented x3 HEENT Face and sinus: Yes normal facial exam Mouth: moist mucous membranes Neck Neck: Yes normal visual inspection, Yes full ROM and Yes trachea midline Chest Chest palpation & inspection: normal inspection of the chest Resp Effort & Inspection: normal respiratory effort, able to speak in complete sentences and no respiratory distress GI Inspection: Yes normal to inspection Back/Spine/Pelvis Cervical Spine: normal cervical lordosis Thoracic/Lumbar Spine: thoracic and lumbar spine normal to inspection Skin General skin exam: no rashes or lesions noted Neuro General: patient oriented x3, gait normal, tone normal and moves all extremities Extrem General: Yes normal to inspection and Yes capillary refill normal Office Procedures Post Void Residual Post Residual Void Post Void Residual (PVR): 130 [id number] Void Residual by ultrasound Results AMB Urinalysis, Automated UA Leukoctes 0 Rosita/uL Last Edit by MYLA Lacey on 01/24/23 14:21 UA Nitrite Negative Last Edit by Iker Major Jacqui on 01/24/23 14:21 UA Urobilinogen 0.2 mg/dL Last Edit by Iker Major Jacqui on 01/24/23 14:21 UA Protein 30 mg/dL Last Edit by Iker Major [facility] on 01/24/23 14:21 UA pH 6.0 Last Edit by Iker Major [facility] on 01/24/23 14:21 UA Blood 10 Den/uL Last Edit by Iker Major [facility] on 01/24/23 14:21 UA Specific [place] 1.030 Last Edit by Iker Major Jacqui on 01/24/23 14:21 UA Ketone Negative Last Edit by Iker Major Jacqui on 01/24/23 14:21 UA Bilirubin 0 mg/dL Last Edit by Iker Major [facility] on 01/24/23 14:21 UA Glucose 0 mg/dL Last Edit by Iker Major [facility] on 01/24/23 14:21 Results Reviewed Results Reviewed: Laboratory Last Values Urine pH (Auto) 6.0 01/24/23 14:19 Specific [place] (Auto) 1.030 01/24/23 14:19 Urine Protein (Auto) 30 mg/dL 01/24/23 14:19 Glucose (UA)(Auto) 0 mg/dL 01/24/23 14:19 Urine Ketones (Auto) Negative 01/24/23 14:19 Urine Blood (Auto) 10 Den/uL 01/24/23 14:19 Urine Nitrite (Auto) Negative 01/24/23 14:19 Urine Bilirubin (Auto) 0 mg/dL 01/24/23 14:19 Urine Urobilinogen (Auto) 0.2 mg/dL 01/24/23 14:19 Leukocyte Esterase (Auto) 0 Rosita/uL 01/24/23 14:19 Assessment & Plan Assessment & Plan (1) Overactive bladder: Code(s): N32.81 - Overactive bladder Plan Risks, benefits and alternatives to therapy were discussed. These include but are not limited to infection, bleeding, damage to local organs and tissues, need for further interventions. Anesthetic risks regarding cardiac arrhythmia, blood clots, and potential mortality were discussed. The patient understands the typical recovery time and the outpatient nature of the procedure. After consideration of these risks the patient gives full informed consent and they wish to move ahead with the procedure. Schedule InterStim removal Orders: Orders AMB Urinalysis Automated Today Z13.9 - Encounter for screening, unspecified AMB Post Void Residual by ultrasound Today N39.8 - Other specified disorders of urinary system Patient Instructions: Imaging studies, laboratory and physical exam results were discussed and reviewed in detail. No major barriers to patient understanding were identified. An opportunity to ask questions regarding the treatment plan was provided. All questions were answered. The patient expressed understanding and agreement with the above treatment plan. The patient is aware they should contact our office by phone for worsening of their current condition or the appearance of new urologic symptoms. Compliance is encouraged with any medications and followup testing that is ordered. It is a privilege to participate in the urologic care of your patient. If you have any questions or concerns regarding treatment for the above conditions, or other urologic issues, please do not hesitate to contact me. The office telephone contact is [phone]. This note is constructed using voice recognition software. While every effort has been made to ensure accuracy enterprise cloud architect errors may have been included. Yours sincerely, Dr Usman Vivas MD, [facility] - Urology Providers of Expert, Compassionate Care for the Genitourinary System Coding Level of Care Code Est Pt Level 4 (63354) Diagnoses Overactive bladder N32.81 CPT Codes Post Residual Void - PVR CPT Code: 17131-Yxuw Void Residual by ultrasound ([id number])
== END 2023-01-24 14:55 | disposition home or self-care (01) ==
LOC: HO.HUSH 13:33
PROVIDERS: PCP Internal Medicine; Visit Provider Urology
DX: N32.81 Overactive bladder (principal); Z96.82 Presence of neurostimulator; Z13.9 Encounter for screening, unspecified
CPT/HCPCS: 99214

== ENCOUNTER → 2023-01-24 13:33 | Outpatient (BNVA) | payer MEDICAID, SELFPAY | PROVIDERS: PCP Internal Medicine; Visit Provider Urology | DX: N32.81 Overactive bladder (principal) | CPT/HCPCS: 51798; 81003; 99212 ==

== ENCOUNTER 2023-02-14 01:50 | Observation (INO) | payer MEDICAID, SELFPAY ==
[2023-02-14] VITALS (12 sets, daily range): BP systolic 128–187; BP diastolic 70–101; PULSE 60–85; RESP 13–24; TEMP 36.3–37.1; O2SAT 89–99; BMI 27.0
--- NOTE | 2023-02-14 | ECG_ITS ---
Test Reason : CHEST PAIN Blood Pressure : / mmHG Vent. Rate : 063 BPM Atrial Rate : 214 BPM P-R Int : 000 ms QRS Dur : 148 ms QT Int : 482 ms P-R-T Axes : 000 -78 088 degrees QTc Int : 493 ms Ventricular-paced rhythm with occasional Premature ventricular complexes Abnormal ECG When compared with ECG of 20-OCT-2022 23:27, Premature ventricular complexes are now Present Vent. rate has decreased BY 8 BPM Referred By: Generic ED Physician Electronically Signed By:TONNY HANLEY MD
--- NOTE | ~2023-02-14 | XR_ITS ---
EXAMINATION: XR CHEST CLINICAL INFORMATION: Dyspnea COMPARISON: 10/20/2022 TECHNIQUE: Frontal view of the chest was obtained. FINDINGS: Single lead pacemaker stably position. Diffuse bronchial wall beginning. No focal consolidation, pleural effusion or pneumothorax. Normal heart size. Pulmonary venous congestion without overt edema. XR/XR chest 1V IMPRESSION: * Diffuse bronchial wall thickening suggestive of bronchitis or asthma. * No focal consolidation.
[2023-02-14 02:39] LABS: MANUAL DIFF FLAG NO
[2023-02-14] MEDS: methylPREDNISolone Sod Succ 125 MG/2 ML VIAL 60 MG IVPUSH (02:39)
[2023-02-14 02:42] LABS: Basophils Absolute Auto 0.1 X10*3/uL (0.0-0.2); Basophils Percent Auto 0.5 % (0-2); Eosinophils Absolute Auto 0.8 X10*3/uL (0.0-0.4); Eosinophils Percent Auto 7.7 % (0-4); Hematocrit 47.4 % (37.0-47.0); Hemoglobin 15.1 g/dl (12.0-16.0); Imm Gran Abs Auto 0.03 X10*3/uL (0.00-0.03); Imm Gran Pct Auto 0.3 % (0.0-0.4); Lymphocytes Absolute Auto 2.2 X10*3/uL (1.2-4.9); Lymphocytes Percent Auto 21.4 % (20-40); Mean Corpuscular HGB Conc 31.9 g/dl (31.0-35.0); Mean Corpuscular Hemoglobin 27.7 pg (27.0-33.0); Mean Platelet Volume 9.4 fL (9.4-12.3); Monocytes Absolute Auto 0.8 X10*3/uL (0.1-1.2); Monocytes Percent Auto 7.4 % (2-11); Neutrophils Absolute Auto 6.5 x10*3/uL (2.0-8.3); Neutrophils Percent Auto 62.7 % (45-73); Platelet Count 574 X10*3/uL (160-400); Red Blood Count 5.45 X10*6/uL (4.20-5.50); Red Cell Distribution Width 13.3 % (11.0-16.0); White Blood Count 10.3 X10*3/uL (4.8-10.8)
[2023-02-14] MEDS: Albuterol Sulfate 7.5 MG, Albuterol/Iprat 2.5/0.5MG 3 ML 3 ML INHALE (02:42)
--- NOTE | 2023-02-14 02:48 | PC.NURSE ---
Pt BIBA from home reports increase SOB since last night with no relief of albuterol at home. Pt A&O to self, place, year and situation. Speaking in 3-4 words. Pt reports cough with white phlegm and feeling like suffocating . Pt report chest pressure. Pt denies any sick contact. SpO2 96% on RA, RR 20, lung sounds wheezing. RT at bedside, Pt receiving TX. IV line placed, blood work collected and sent to lab.
--- NOTE | 2023-02-14 02:57 | ED_ITS ---
HPI - Asthma General Chief Complaint: Dyspnea Stated Complaint: SOB Time Seen by Provider: 02/14/23 02:31 Source: patient, old records reviewed and product marketing consultant Mode of arrival: EMS Limitations: no limitations History of Present Illness HPI Narrative: 62 yo female with PMH of asthma, depression, GERD, DM, HLD, endocarditis, migraine headache, MARY, aortic valve replacement complicated by complete heart block now with PPM - result of infective endocarditis. She comes in with abrupt onset wheezing. EMS notes she was 90% on RA. She was given duoneb en route. She is not the best historian but notes she was in bed when it started and did not have any infectious symptoms. MD complaint: asthma attack , shortness of breath and wheezing Onset (ago): hour(s) (few) Severity: moderate Context: none known Associated symptoms: dry cough Asthma History: childhood onset Treatments Prior to Arrival: inhaled bronchodilator Related Data Home Medications Medication Instructions Recorded Confirmed albuterol sulfate 90 mcg/actuation 2 puff inhalation Q4H PRN wheezing 07/03/22 01/24/23 aerosol inhaler (Ventolin HFA) amitriptyline 25 mg tablet 25 mg PO BEDTIME 07/03/22 02/14/23 bisacodyl 5 mg tablet,delayed 10 mg PO BEDTIME 07/03/22 02/14/23 release calcium carbonate 600 mg-vitamin 1 tab PO DAILY 07/03/22 02/14/23 D3 10 mcg (400 unit) tablet clopidogrel 75 mg tablet 75 mg PO DAILY 07/03/22 02/14/23 cyanocobalamin (vitamin B-12) 1,000 mcg PO DAILY 07/03/22 02/14/23 1,000 mcg tablet folic acid 1 mg tablet 1 mg PO DAILY 07/03/22 01/24/23 gabapentin 100 mg capsule 100 mg PO TID 07/03/22 02/14/23 hydrochlorothiazide 12.5 mg tablet 12.5 mg PO DAILY 07/03/22 02/14/23 melatonin 5 mg tablet 5 mg PO BEDTIME PRN insomnia 07/03/22 01/24/23 montelukast 10 mg tablet 10 mg PO BEDTIME 07/03/22 01/24/23 sertraline 50 mg tablet 50 mg PO DAILY 07/03/22 02/14/23 tiotropium bromide 18 mcg capsule 1 cap inhalation DAILY 10/21/22 01/24/23 with inhalation device (Spiriva with HandiHaler) albuterol sulfate 2.5 mg/3 mL 2.5 mg inhalation Q4-6H PRN 11/28/22 02/14/23 (0.083 %) solution for nebulization wheezing Previous Rx's Medication Instructions Recorded fluticasone 500 mcg-salmeterol 50 1 ea inhalation BID #60 ea 10/26/22 mcg/dose blistr powdr for inhalation (Advair Diskus) doxycycline hyclate 100 mg capsule 100 mg PO BID #14 caps 12/01/22 acetaminophen 650 mg 650 mg PO Q8H PRN for pain #90 tabs 01/04/23 tablet,extended release Allergies Allergy/AdvReac Type Severity Reaction Status Date / Time latex [LATEX] Allergy Severe DIFFICULTY Verified 02/14/23 04:17 BREATHING aspirin [Aspirin] Allergy Intermediate ITCHING, Verified 02/14/23 04:17 itchiness ciprofloxacin [From CIPRO] Allergy Intermediate DIAPHORESIS Verified 02/14/23 04:17 /PURITIS Penicillins [PENICILLINS] Allergy Unknown UNKNOWN Verified 02/14/23 04:17 HEMALATHA Inhibitors AdvReac Intermediate COUGH Verified 02/14/23 04:17 [HEMALATHA INHIBITORS] Review of Systems 2 Review of Systems: Constitutional : No Fever, No Chills ENT/Mouth : No Hoarseness, No sore throat, No Rhinorrhea Eyes: No Redness, No Discharge, No Vision Changes Cardiovascular : No Chest Pain, positive SOB, positive Dyspnea on Exertion, No Edema Respiratory : positive Cough, No Sputum, positive Wheezing, Gastrointestinal : No Nausea, No Vomiting, No Diarrhea, No abdominal Pain Genitourinary : No Dysuria, No Hematuria Musculoskeletal : No joint pain, No Myalgias Skin : No rash Neuro : No Weakness, No Numbness, No Headache Psych : No anxiety, depression Heme/Lymph: No Bruising, No Bleeding Endocrine : No Polyuria, No Polydipsia All other systems reviewed and are negative PMFSH Past Medical History Attestation statement: The following information was validated with the patient. Source: old records reviewed Medical History Smoking Restrictive airway disease MARY (obstructive sleep apnea) COPD (chronic obstructive pulmonary disease) MARY on CPAP Reactive airways dysfunction syndrome Rheumatoid arthritis Fibromyalgia GERD (gastroesophageal reflux disease) MARY (obstructive sleep apnea) Aortic valve endocarditis COPD (chronic obstructive pulmonary disease) COPD exacerbation Overactive bladder Bronchitis Allergic rhinitis COPD (chronic obstructive pulmonary disease) Asthma Hx of cardiac pacemaker Hx of migraines Hx of coronary artery disease History of urinary incontinence Hx of essential hypertension History of depression Hx of drug abuse Hx of hyperlipidemia Hx of allergic rhinitis History of enuresis Hx of osteoarthritis Hx of pilonidal cyst Family history of GERD History of arthritis Hx of diabetes mellitus Surgical History History of surgical removal of pilonidal cyst Hx of bilateral cataract extraction Hx of colonoscopy History of cystoscopy History of hysterectomy Hx of aortic valve replacement Hx laparoscopic cholecystectomy History of epidermal inclusion cyst excision Social History Social History Household Members: Other Household Members Other:: self Housing: Apartment Do you presently have visiting nurse or other home services: Yes (Home health aide) Alcohol intake: former Patient Tobacco Use Status: Former Tobacco user Tobacco use type: Cigarette Cigarettes Per Day: 3 Smoked in Last 30 Days: Yes e-Cigarette/Vaping Use: Currently Using Second Hand Smoke Exposure: Yes Use of substances other than those prescribed or required for medical reasons: No Advance Directives: Yes Advance Directives on File: Yes Advance Directives Date on File: 11/08/21 Nutrition Risks: No Nutritional Risk Patient : No service: No Current occupational status: unemployed and disabled Physical Exam 2 Vital Signs: Vital Signs: Last Vital Signs Temp 98.7 F 02/14/23 02:06 Pulse 64 02/14/23 04:00 Resp 22 H 02/14/23 04:00 BP 149/82 H 02/14/23 04:00 Pulse Ox 96 02/14/23 04:00 O2 Del Method Room Air 02/14/23 04:00 BMI result Body Mass Index 27.0 Appearance: Alert. Oriented X3. No acute distress. Anxious Eyes: Pupils equal, round and reactive to light. ENT: Pharynx normal. Neck: Normal inspection. Neck supple. CVS: Normal heart rate and rhythm. Pulses normal. Respiratory: No respiratory distress. Breath sounds diffuse insp and exp wheezes Abdomen: Soft and nontender. Skin: Skin warm and dry. Normal skin color. Normal skin turgor. Extremities: No lower extremity edema. No calf ttp Neuro: Oriented X 3. No motor deficit. No sensory deficit. Medications Administered Discontinued Medications Generic Name Dose Route Start Last Admin Trade Name Kiah PRN Reason Stop Dose Admin Albuterol Sulfate 7.5 mg/ 0 mg 02/14/23 02:41 02/14/23 02:42 Albuterol/Ipratropium 3 ml INHALE 02/14/23 02:42 10 each ONCE ONE Administration Albuterol Sulfate 2.5 mg/ 0 mg 02/14/23 03:34 02/14/23 03:37 Albuterol/Ipratropium 3 ml INHALE 02/14/23 03:35 5 dose ONCE ONE Administration Magnesium Sulfate 2 gm in 50 mls @ 150 mls/hr 02/14/23 03:57 02/14/23 04:45 Magnesium Sulfate/H2o IV 02/14/23 04:16 Infused ONCE ONE Infusion Methylprednisolone Sodium Succinate 60 mg 02/14/23 02:33 02/14/23 02:39 Methylprednisolone Sod Succ 125 Mg/2 Ml Vial IVPUSH 02/14/23 02:34 60 mg ONCE ONE Administration Medical Decision Making Medical Decision Making MDM Narrative: 62 yo female with PMH of asthma, depression, GERD, DM, HLD, endocarditis, migraine headache, MARY, aortic valve replacement complicated by complete heart block now with PPM comes in with dyspnea and wheezes denies infectious symptoms - at this time hour long 10mg neb ordered, IV steroids, labs and CXR along with viral panel. Suspect URI and likely viral bronchitis Differential Diagnosis Differential Diagnoses: The differential diagnosis associated with the presentation includes asthma, viral bronchitis Admission/Observation Consideration of admission/observation: Escalation of care including admission/observation considered repeat nebs, steroids, IV magnesium no sig improvement will admit Consult Healthcare Provider Management of the patient was discussed with: Hospitalist (will admit) Lab Data [facility] Lab Attestation statement: I reviewed the patient's lab results. 02/14/23 02:34 02/14/23 04:03 Labs: Lab Results 02/14/23 Range/Units 02:34 WBC 10.3 (4.8-10.8) X10*3/uL RBC 5.45 D (4.20-5.50) X10*6/uL Hgb 15.1 D (12.0-16.0) g/dl Hct 47.4 H D (37.0-47.0) % MCV 87.0 (80.0-98.0) fL MCH 27.7 (27.0-33.0) pg MCHC 31.9 (31.0-35.0) g/dl RDW 13.3 (11.0-16.0) % Plt Count 574 H D (160-400) X10*3/uL MPV 9.4 (9.4-12.3) fL Immature Gran % (Auto) 0.3 (0.0-0.4) % Neut % (Auto) 62.7 (45-73) % Lymph % (Auto) 21.4 (20-40) % [place] % (Auto) 7.4 (2-11) % Eos % (Auto) 7.7 H (0-4) % Baso % (Auto) 0.5 (0-2) % Lymph # (Auto) 2.2 (1.2-4.9) X10*3/uL [place] # (Auto) 0.8 (0.1-1.2) X10*3/uL Eos # (Auto) 0.8 H (0.0-0.4) X10*3/uL Baso # (Auto) 0.1 (0.0-0.2) X10*3/uL Abs Immat Gran (auto) 0.03 (0.00-0.03) X10*3/uL Absolute Neuts (auto) 6.5 (2.0-8.3) x10*3/uL Absolute Nucleated RBC 0.000 (0.0-0.012) X10*3/uL Nucleated RBC % (auto) 0.0 (0.0-0.2) /100WBC Troponin I High Sens 14.0 (<3.5-17.0) ng/L B-Natriuretic Peptide 133 H (<100) pg/mL Influenza Type A (PCR) NEGATIVE (Negative) Influenza Type B (PCR) NEGATIVE (Negative) RSV RNA Qual (PCR) NEGATIVE (Negative) SARS-CoV-2 RNA (RT-PCR) NEGATIVE (Negative) Independent Interpretation I performed an independent interpretation of an: EKG and Plain X-Ray (no pneumonia) Interpretation: Rate: 63 Rhythm: paced [place]: left widened QRS complex. ST T wave : no YUKO, tall T waves anteriorly qTC: normal prior studies: no acute ischemia The study has been interpreted contemporaneously by me. . Radiology Impression Discussion of test interpretation with radiology: I have reviewed the radiologist's reading. Independent Historian Clinical information obtained from an independent historian. History obtained from or confirmed by: EMS External Record Review External record reviewed: Inpatient record Critical Care Time Critical Care Time Critical Care Time: Yes Total Critical Care Time: 60 Attestation: repeat hour long nebs for asthma, IV magnesium for asthma I attest to this time spent taking care of the patient Discharge Plan Discharge Clinical Impression: Asthma with exacerbation Qualifiers: Asthma severity: moderate Asthma persistence: persistent Qualified Code(s): J 45.41 - Moderate persistent asthma with (acute) exacerbation Patient Disposition: Admitted As Inpatient
[2023-02-14 03:04] LABS: B Type Natriuretic Peptide 133 pg/mL (<100)
[2023-02-14 03:21] LABS: Influenza A PCR NEGATIVE (Negative); Influenza B PCR NEGATIVE (Negative); Resp Syncy Virus RNA Qual PCR NEGATIVE (Negative); SARS COV2 PCR INHOUSE NEGATIVE (Negative)
[2023-02-14] MEDS: Albuterol Sulfate 2.5 MG, Albuterol/Iprat 2.5/0.5MG 3 ML 3 ML INHALE (03:37)
--- NOTE | 2023-02-14 04:02 | P.HPHOSP_ITS ---
History of Present Illness Date of Service: 02/14/23 Chief Complaint: Dyspnea This is a 62-year-old female with pertinent history of essential hypertension, mood disorder, asthma/COPD overlap syndrome not on home oxygen, MARY not on CPAP, tobacco use disorder who presents to the emergency department for evaluation of dyspnea. Patient states that she started having dyspnea which was worse with exertion and wheezing on the day of presentation. Also has been having nonproductive cough. Does not use oxygen at home. EMS found her to be 90% on room air. No chest discomfort palpitations. States she continues to smoke about 3 or 4 cigarettes per day. No fever, chills, abdominal pain, changes in urinary or bowel habits. Patient states it feels like her asthma attack in the past. In the emergency department, patient with continued wheezing despite multiple DuoNeb treatments. Review of Systems 2 Constitutional: Constitutional: Reports no additional constitutional complaints Cardiovascular: Cardiovascular: Reports no additional cardiovascular complaints and Reports dyspnea on exertion Respiratory: Respiratory: Reports cough, Reports dyspnea on exertion and Reports wheezing Gastrointestinal: Gastrointestinal: Reports no additional gastrointestinal complaints Genitourinary: Genitourinary: Reports no additional female genitourinary complaints Allergic/Immunologic: Allergic/Immunologic: Reports wheezing [facility] Medical History Smoking Restrictive airway disease MARY (obstructive sleep apnea) COPD (chronic obstructive pulmonary disease) MARY on CPAP Reactive airways dysfunction syndrome Rheumatoid arthritis Fibromyalgia GERD (gastroesophageal reflux disease) MARY (obstructive sleep apnea) Aortic valve endocarditis COPD (chronic obstructive pulmonary disease) COPD exacerbation Overactive bladder Bronchitis Allergic rhinitis COPD (chronic obstructive pulmonary disease) Asthma Hx of cardiac pacemaker Hx of migraines Hx of coronary artery disease History of urinary incontinence Hx of essential hypertension History of depression Hx of drug abuse Hx of hyperlipidemia Hx of allergic rhinitis History of enuresis Hx of osteoarthritis Hx of pilonidal cyst Family history of GERD History of arthritis Hx of diabetes mellitus Surgical History History of surgical removal of pilonidal cyst Hx of bilateral cataract extraction Hx of colonoscopy History of cystoscopy History of hysterectomy Hx of aortic valve replacement Hx laparoscopic cholecystectomy History of epidermal inclusion cyst excision Social History Household Members: Other Household Members Other:: self Housing: Apartment Do you presently have visiting nurse or other home services: Yes (Home health aide) Alcohol intake: former Patient Tobacco Use Status: Former Tobacco user Tobacco use type: Cigarette Cigarettes Per Day: 3 Smoked in Last 30 Days: Yes e-Cigarette/Vaping Use: Currently Using Second Hand Smoke Exposure: Yes Use of substances other than those prescribed or required for medical reasons: No Advance Directives: Yes Advance Directives on File: Yes Advance Directives Date on File: 11/08/21 Nutrition Risks: No Nutritional Risk Patient : No service: No Current occupational status: unemployed and disabled Meds Allergies Allergy/AdvReac Type Severity Reaction Status Date / Time latex [LATEX] Allergy Severe DIFFICULTY Verified 02/14/23 04:17 BREATHING aspirin [Aspirin] Allergy Intermediate ITCHING, Verified 02/14/23 04:17 itchiness ciprofloxacin [From CIPRO] Allergy Intermediate DIAPHORESIS Verified 02/14/23 04:17 /PURITIS Penicillins [PENICILLINS] Allergy Unknown UNKNOWN Verified 02/14/23 04:17 HEMALATHA Inhibitors AdvReac Intermediate COUGH Verified 02/14/23 04:17 [HEMALATHA INHIBITORS] Active Medications: Current Medications Magnesium Sulfate (Magnesium Sulfate/H2o) 2 gm in 50 mls @ 150 mls/hr IV ONCE ONE Stop: 02/14/23 04:16 Home Medications Medication Instructions Recorded Confirmed Last Taken Type albuterol sulfate 90 mcg/actuation 2 puff inhalation Q4H PRN wheezing 07/03/22 01/24/23 Unknown History aerosol inhaler (Ventolin HFA) amitriptyline 25 mg tablet 25 mg PO BEDTIME 07/03/22 02/14/23 11/27/22 History bisacodyl 5 mg tablet,delayed 10 mg PO BEDTIME 07/03/22 02/14/23 11/27/22 History release calcium carbonate 600 mg-vitamin 1 tab PO DAILY 07/03/22 02/14/23 11/28/22 History D3 10 mcg (400 unit) tablet clopidogrel 75 mg tablet 75 mg PO DAILY 07/03/22 02/14/23 11/28/22 History cyanocobalamin (vitamin B-12) 1,000 mcg PO DAILY 07/03/22 02/14/23 11/28/22 History 1,000 mcg tablet folic acid 1 mg tablet 1 mg PO DAILY 07/03/22 01/24/23 11/28/22 History gabapentin 100 mg capsule 100 mg PO TID 07/03/22 02/14/23 11/28/22 History hydrochlorothiazide 12.5 mg tablet 12.5 mg PO DAILY 07/03/22 02/14/23 11/28/22 History melatonin 5 mg tablet 5 mg PO BEDTIME PRN insomnia 07/03/22 01/24/23 11/27/22 History montelukast 10 mg tablet 10 mg PO BEDTIME 07/03/22 01/24/23 11/27/22 History sertraline 50 mg tablet 50 mg PO DAILY 07/03/22 02/14/23 11/28/22 History tiotropium bromide 18 mcg capsule 1 cap inhalation DAILY 10/21/22 01/24/23 11/28/22 History with inhalation device (Spiriva with HandiHaler) albuterol sulfate 2.5 mg/3 mL 2.5 mg inhalation Q4-6H PRN 11/28/22 02/14/23 Unknown History (0.083 %) solution for nebulization wheezing Physical Exam 2 Vital Signs and Narrative: Vital Signs: Last Vital Signs Temp 98.7 F 02/14/23 02:06 Pulse 61 02/14/23 03:53 Resp 13 02/14/23 03:53 BP 168/84 H 02/14/23 03:53 Pulse Ox 96 02/14/23 03:53 O2 Del Method Room Air 02/14/23 03:53 BMI result Body Mass Index 27.0 Middle-aged female lying in bed in mild distress Neck supple, no JVD Regular rate and rhythm, S1-S2 heard Bilateral wheezing without crackles Abdomen soft nontender, no guarding, no rigidity Patient is awake, alert and oriented to self, place, time and person ; no focal motor deficit Psych: Normal mood No pedal edema Results Labs 02/14/23 02:34 02/14/23 04:03 Labs: Laboratory Results - last 24 hr 02/14/23 02:34 MCV 87.0 MCH 27.7 MCHC 31.9 RDW 13.3 Plt Count 574 H D MPV 9.4 Immature Gran % (Auto) 0.3 Neut % (Auto) 62.7 Lymph % (Auto) 21.4 [place] % (Auto) 7.4 Eos % (Auto) 7.7 H Baso % (Auto) 0.5 Lymph # (Auto) 2.2 [place] # (Auto) 0.8 Eos # (Auto) 0.8 H Baso # (Auto) 0.1 Abs Immat Gran (auto) 0.03 Absolute Neuts (auto) 6.5 Absolute Nucleated RBC 0.000 Nucleated RBC % (auto) 0.0 B-Natriuretic Peptide 133 H Influenza Type A (PCR) NEGATIVE Influenza Type B (PCR) NEGATIVE RSV RNA Qual (PCR) NEGATIVE SARS-CoV-2 RNA (RT-PCR) NEGATIVE Imaging Radiologist's Impressions: Impressions Chest X-Ray 02/14/23 02:23 IMPRESSION: * Diffuse bronchial wall thickening suggestive of bronchitis or asthma. * No focal consolidation. Assessment and Plan (1) Asthma with exacerbation: Qualifiers: Asthma persistence: persistent Asthma severity: moderate Qualified Code(s): J45.41 - Moderate persistent asthma with (acute) exacerbation Status: Acute Plan This is a 62-year-old female with pertinent history of essential hypertension, mood disorder, asthma/COPD overlap syndrome not on home oxygen, MARY not on CPAP, tobacco use disorder who presents to the emergency department for evaluation of dyspnea. #. Acute respiratory distress due to acute exacerbation of asthma/COPD overlap syndrome: Will admit patient and initiate scheduled and p.r.n. DuoNebs. Initiating systemic steroids. Continue home inhalers #. Essential hypertension: On hydrochlorothiazide #. Mood disorder: Continue home mood stabilizers #. MARY: On CPAP at bedtime #. Tobacco use disorder: Counseled regarding cessation. Refused nicotine patch. Med rec pending DVT prophylaxis: Lovenox Full code Quality Stroke Does the patient have a stroke diagnosis?: No VTE Prior VTE?: No VTE Risk Level:: Medical - moderate - high VTE Device Contraindication: Treatment Not Indicated VTE Drug Contraindication: N/A - Med Ordered
[2023-02-14 04:18] LABS: Venous Blood Gas Refer to POC result
[2023-02-14 04:19] LABS: VBG Base Excess 3.5 mmol/L; VBG HCO3 28 mmol/L (22-26); VBG pCO2 43 mmHg; VBG pH 7.42 (7.32-7.43); VBG pO2 104 mmHg
[2023-02-14] MEDS: Magnesium Sulfate/H2O 2 GM/50 ML PIGGYBACK IV (04:23)
[2023-02-14 04:30] LABS: Anion Gap 17 (12-20); Blood Urea Nitrogen 12 mg/dL (9-16); Calcium 10.2 mg/dL (8.4-10.2); Carbon Dioxide 25 mmol/L (22-29); Chloride 103 mmol/L (96-108); Creatinine Clr Calc Pharmacy 68.7; Estimated Glomerular Filt Rate > 60; Glucose Random 192 mg/dL (60-115); Potassium 3.6 mmol/L (3.3-5.1); Sodium 141 mmol/L (135-145)
--- NOTE | 2023-02-14 04:30 | PC.NURSE ---
Med rec done with EMS list. Pt not able to recal meds d/t being in prepackaged.
[2023-02-14 06:52] LABS: Basophils Percent Auto 0.3 % (0-2); Eosinophils Absolute Auto 0.1 X10*3/uL (0.0-0.4); Eosinophils Percent Auto 0.8 % (0-4); Hematocrit 42.1 % (37.0-47.0); Hemoglobin 13.3 g/dl (12.0-16.0); Imm Gran Abs Auto 0.04 X10*3/uL (0.00-0.03); Imm Gran Pct Auto 0.4 % (0.0-0.4); Lymphocytes Absolute Auto 0.6 X10*3/uL (1.2-4.9); Lymphocytes Percent Auto 5.2 % (20-40); MANUAL DIFF FLAG SCAN; Mean Corpuscular HGB Conc 31.6 g/dl (31.0-35.0); Mean Corpuscular Hemoglobin 27.7 pg (27.0-33.0); Mean Corpuscular Volume 87.5 fL (80.0-98.0); Mean Platelet Volume 9.8 fL (9.4-12.3); Monocytes Absolute Auto 0.1 X10*3/uL (0.1-1.2); Monocytes Percent Auto 1.1 % (2-11); Neutrophils Absolute Auto 10.1 x10*3/uL (2.0-8.3); Neutrophils Percent Auto 92.2 % (45-73); Platelet Count 513 X10*3/uL (160-400); Red Blood Count 4.81 X10*6/uL (4.20-5.50); Red Cell Distribution Width 13.3 % (11.0-16.0); SCAN SMEAR FLAG 1; White Blood Count 10.9 X10*3/uL (4.8-10.8)
[2023-02-14 07:03] LABS: Anion Gap 13 (12-20); Blood Urea Nitrogen 12 mg/dL (9-16); Calcium 9.9 mg/dL (8.4-10.2); Carbon Dioxide 26 mmol/L (22-29); Chloride 104 mmol/L (96-108); Creatinine Clr Calc Pharmacy 72.9; Estimated Glomerular Filt Rate > 60; Glucose Random 187 mg/dL (60-115); Potassium 3.4 mmol/L (3.3-5.1); Sodium 140 mmol/L (135-145)
[2023-02-14] MEDS: Albuterol/Iprat 2.5/0.5MG 3 ML AMPUL.NEB INHALE ×4 (07:50→20:09)
[2023-02-14] MEDS: methylPREDNISolone Sod Succ 40 MG/ML VIAL IVPUSH ×2 (07:51→20:07)
[2023-02-14] MEDS: 0.9 % Sodium Chloride Flush 3 ML SYRINGE IVFLUSH ×3 (07:52→20:07)
--- NOTE | 2023-02-14 07:57 | PHA.MEDREC ---
Pharmacy Consult ? Medication Reconciliation Pharmacy has completed the medication reconciliation. Spoke to patient with multimedia artist. Patient was able to confirm her medications.
[2023-02-14] MEDS: Cyanocobalamin (Vitamin B-12) 1,000 MCG TABLET 1000 MCG PO (09:46)
[2023-02-14] MEDS: hydroCHLOROthiazide 12.5 MG TABLET PO (09:46)
[2023-02-14] MEDS: Calcium + Vitamin D 250 MG TABLET 500 MG PO (09:46)
[2023-02-14] MEDS: Gabapentin 100 MG CAPSULE PO ×3 (09:46→20:07)
[2023-02-14] MEDS: Enoxaparin Sodium 40 MG/0.4 ML SYRINGE SUBCUT (09:46)
[2023-02-14] MEDS: Sertraline HCL 50 MG TABLET PO (09:46)
[2023-02-14 09:55] LABS: SLIDE REVIEW VERIFIED
--- NOTE | 2023-02-14 11:02 | PC.NURSE ---
Assumed care of patient at 1100. Pt requesting to get up to go to bathroom. This RN educated patient about using a commode so she does not have to walk a farther distance and get short of breath. Pt is on O2 for comfort, normal sinus on monitor, no apparent distress at this time
--- NOTE | 2023-02-14 11:31 | PC.NURSE ---
Pt refusing to use commode, stating she wants to use a real bathroom. This RN educated patient regarding the ease of using the commode and how it is very similar to the bathroom. Pt continues to refuse at this time, states I will go later
--- NOTE | 2023-02-14 13:18 | MHC.CM.PN ---
CM ATTEMPTED TO MEET WITH PT WITH A OPERATIONS OFFICER PT ON COMMODE CM WILL REVISIT
--- NOTE | 2023-02-14 14:17 | HO.PM.IMPN ---
Subjective Subjective Date of Service: 02/14/23 Interval History: Seen in follow up for asthma exacerbation Interval history: Admitted early this morning. Continues with cough, shortness of breath, wheezing. Afebrile, vital stable Review of Systems Review of Systems: Yes all other systems are reviewed and are negative Physical Exam Vital Signs: Vital Signs: Last Vital Signs Temp 98.8 F 02/14/23 09:44 Pulse 65 02/14/23 11:17 Resp 20 02/14/23 11:17 BP 146/101 H 02/14/23 09:44 Pulse Ox 97 02/14/23 09:44 O2 Del Method Nasal Cannula 02/14/23 09:44 O2 Flow Rate 2 02/14/23 09:44 BMI result Body Mass Index 27.0 Constitutional - Awake and Alert, No apparent distress Eyes - PERRLA, EOMI Cardiovascular - S1S2, RRR, No edema Respiratory - Normal lung expansion, Normal respiratory effort, No respiratory distress, coarse lung souds with rhonchi lower lobes and expiratory wheezing Gastrointestinal - NT / ND; +BS; No rebound or guarding Extremities - no calf tenderness bilaterally, no swelling Skin - Warm/Dry Neurological - Alert & oriented x3 Psychological - Appropriate affect Objective Data Active Medications Acetaminophen (Acetaminophen 325 Mg Tablet) 650 mg PO Q6H PRN PRN Reason: Pain, Mild (Pain Scale 1-3) Albuterol/Ipratropium (Albuterol/Iprat 2.5/0.5mg 3 Ml Ampul.Neb) 3 ml INHALE RQ4H WHILE AWAKE [facility] Last Admin: 02/14/23 11:16 Dose: 3 ml Documented By: CLEM Albuterol/Ipratropium (Albuterol/Iprat 2.5/0.5mg 3 Ml Ampul.Neb) 3 ml INHALE Q4H PRN PRN Reason: Wheezing Amitriptyline HCl (Amitriptyline Hcl 25 Mg Tablet) 25 mg PO BEDTIME [facility] Bisacodyl (Bisacodyl 5 Mg Tablet.) 10 mg PO BEDTIME [facility] Calcium Carbonate/Cholecalciferol (Calcium + Vitamin D 250 Mg Tablet) 500 mg PO DAILY [facility] Last Admin: 02/14/23 09:46 Dose: 500 mg Documented By: COOPEB Cyanocobalamin (Cyanocobalamin (Vitamin B-12) 1,000 Mcg Tablet) 1,000 mcg PO DAILY [facility] Last Admin: 02/14/23 09:46 Dose: 1,000 mcg Documented By: MARCOS Enoxaparin Sodium (Enoxaparin Sodium 40 Mg/0.4 Ml Syringe) 40 mg SUBCUT Q24H [facility] Last Admin: 02/14/23 09:46 Dose: 40 mg Documented By: MARCOS Gabapentin (Gabapentin 100 Mg Capsule) 100 mg PO TID [facility] Last Admin: 02/14/23 09:46 Dose: 100 mg Documented By: MARCOS Guaifenesin/Codeine Phosphate (Guaifen/Codeine Sf 200/20/10ml 10 Ml Liquid) 5 ml PO Q4H PRN PRN Reason: cough Hydrochlorothiazide (Hydrochlorothiazide 12.5 Mg Tablet) 12.5 mg PO DAILY [facility]; Protocol Last Admin: 02/14/23 09:46 Dose: 12.5 mg Documented By: MARCOS Melatonin (Melatonin 3 Mg Tablet) 6 mg PO BEDTIME PRN PRN Reason: Insomnia Methylprednisolone Sodium Succinate (Methylprednisolone Sod Succ 40 Mg/Ml Vial) 40 mg IVPUSH Q12H [facility] Last Admin: 02/14/23 07:51 Dose: 40 mg Documented By: MARCOS Ondansetron HCl (Ondansetron Hcl 4 Mg/2 Ml Vial) 4 mg IVPUSH Q8H PRN PRN Reason: Nausea and Vomiting Sertraline HCl (Sertraline Hcl 50 Mg Tablet) 50 mg PO DAILY [facility] Last Admin: 02/14/23 09:46 Dose: 50 mg Documented By: MARCOS Sodium Chloride (0.9 % Sodium Chloride Flush 3 Ml Syringe) 3 ml IVFLUSH QSHIFT [facility] Last Admin: 02/14/23 07:52 Dose: 3 ml Documented By: MARCOS Labs 02/14/23 05:17 02/14/23 05:17 Labs: Laboratory Results - last 24 hr 02/14/23 02/14/23 02/14/23 02:34 04:03 04:08 MCV 87.0 MCH 27.7 MCHC 31.9 RDW 13.3 Plt Count 574 H D MPV 9.4 Immature Gran % (Auto) 0.3 Neut % (Auto) 62.7 Lymph % (Auto) 21.4 [place] % (Auto) 7.4 Eos % (Auto) 7.7 H Baso % (Auto) 0.5 Lymph # (Auto) 2.2 [place] # (Auto) 0.8 Eos # (Auto) 0.8 H Baso # (Auto) 0.1 Abs Immat Gran (auto) 0.03 Absolute Neuts (auto) 6.5 Absolute Nucleated RBC 0.000 Nucleated RBC % (auto) 0.0 Smear Tech's Comments VBG pH 7.42 VBG pCO2 43 VBG pO2 104 VBG HCO3 28 H VBG O2 Saturation 99.0 VBG Base Excess 3.5 Anion Gap 17 Estim Creat Clear Calc 68.7 Estimated GFR > 60 Random Glucose 192 H Calcium 10.2 B-Natriuretic Peptide 133 H Influenza Type A (PCR) NEGATIVE Influenza Type B (PCR) NEGATIVE RSV RNA Qual (PCR) NEGATIVE SARS-CoV-2 RNA (RT-PCR) NEGATIVE 02/14/23 05:17 MCV 87.5 MCH 27.7 MCHC 31.6 RDW 13.3 Plt Count 513 H MPV 9.8 Immature Gran % (Auto) 0.4 Neut % (Auto) 92.2 H Lymph % (Auto) 5.2 L [place] % (Auto) 1.1 L Eos % (Auto) 0.8 Baso % (Auto) 0.3 Lymph # (Auto) 0.6 L [place] # (Auto) 0.1 Eos # (Auto) 0.1 Baso # (Auto) 0.0 Abs Immat Gran (auto) 0.04 H Absolute Neuts (auto) 10.1 H Absolute Nucleated RBC 0.000 Nucleated RBC % (auto) 0.0 Smear Tech's Comments VERIFIED VBG pH VBG pCO2 VBG pO2 VBG HCO3 VBG O2 Saturation VBG Base Excess Anion Gap 13 Estim Creat Clear Calc 72.9 Estimated GFR > 60 Random Glucose 187 H Calcium 9.9 B-Natriuretic Peptide Influenza Type A (PCR) Influenza Type B (PCR) RSV RNA Qual (PCR) SARS-CoV-2 RNA (RT-PCR) Assessment and Plan (1) Asthma with exacerbation: Status: Acute Plan This is a 62-year-old female with pertinent history of essential hypertension, mood disorder, asthma/COPD overlap syndrome not on home oxygen, MARY not on CPAP, tobacco use disorder to be observed for acute asthma exacerbation. #Acute respiratory distress due to acute exacerbation of asthma/COPD overlap syndrome -IV solumedrol 40 mg b.i.d. -DuoNebs q.4h while awake -albuterol p.r.n. -negative for COVID-19, influenza, RSV. Check full viral respiratory panel -continue maintenance inhalers #Essential hypertension -continue hydrochlorothiazide #Mood disorder -Continue home mood stabilizers #MARY -CPAP at bedtime #Tobacco use disorder -counseled regarding cessation. Refused nicotine patch. DVT prophylaxis: Lovenox Full code Quality Stroke Does the patient have a stroke diagnosis?: No VTE Prior VTE?: No VTE Risk Level:: Medical - moderate - high VTE Device Contraindication: Treatment Not Indicated VTE Drug Contraindication: N/A - Med Ordered
[2023-02-14] MEDS: Montelukast Sodium 10 MG TABLET PO (20:06)
[2023-02-14] MEDS: bisacodyL 5 MG TABLET.DR 10 MG PO (20:07)
[2023-02-14] MEDS: Amitriptyline HCl 25 MG TABLET PO (20:07)
--- NOTE | 2023-02-14 20:26 | PC.RT ---
Pt does not want CPAP, does not wear at home, no interested in wearing here
[2023-02-14] MEDS: guaiFEN/Codeine SF 200/20/10ML 10 ML LIQUID 5 ML PO (22:29)
[2023-02-15] MEDS: Acetaminophen 325 MG TABLET 650 MG PO (03:40)
[2023-02-15 04:00] VITALS: BP 108/56; PULSE 63; RESP 19; TEMP 36.2; O2SAT 98
[2023-02-15 07:30] VITALS: BP 111/56; PULSE 59; RESP 16; TEMP 36; O2SAT 96
[2023-02-15] MEDS: Albuterol/Iprat 2.5/0.5MG 3 ML AMPUL.NEB INHALE (07:57)
[2023-02-15] MEDS: Fluticasone/Vilanterol 200/25 BLST.W.DEV 1 PUFF INHALE (07:57)
[2023-02-15 07:59] VITALS: PULSE 75; RESP 18; O2SAT 100
--- NOTE | 2023-02-15 09:09 | MHC.CM.PN ---
Addendum entered by Bev Boyd 02/15/23 12:04: Patient is discharged today with resumption of [employer] services. She transported via [facility]. Original Note: HELMS 03/18/22 Female 62 DX Dyspnea She lives by herself. She has [place] in place for personal care and homemaking. A HCP in on file. DP resume [employer] services. She will transport via [facility].
[2023-02-15] MEDS: methylPREDNISolone Sod Succ 40 MG/ML VIAL IVPUSH (09:33)
[2023-02-15] MEDS: 0.9 % Sodium Chloride Flush 3 ML SYRINGE IVFLUSH (09:33)
[2023-02-15] MEDS: Enoxaparin Sodium 40 MG/0.4 ML SYRINGE SUBCUT (09:33)
[2023-02-15] MEDS: Clopidogrel Bisulfate 75 MG TABLET PO (09:33)
[2023-02-15] MEDS: hydroCHLOROthiazide 12.5 MG TABLET PO (09:34)
[2023-02-15] MEDS: Calcium + Vitamin D 250 MG TABLET 500 MG PO (09:34)
[2023-02-15] MEDS: Sertraline HCL 50 MG TABLET PO (09:34)
[2023-02-15] MEDS: Cyanocobalamin (Vitamin B-12) 1,000 MCG TABLET 1000 MCG PO (09:34)
[2023-02-15] MEDS: Folic Acid 1 MG TABLET PO (09:34)
[2023-02-15] MEDS: Gabapentin 100 MG CAPSULE PO (09:34)
[2023-02-15 10:00] VITALS: O2SAT 92
[2023-02-15 10:09] LABS: Basophils Percent Auto 0.2 % (0-2); Eosinophils Percent Auto 0.1 % (0-4); Hematocrit 43.3 % (37.0-47.0); Hemoglobin 13.7 g/dl (12.0-16.0); Imm Gran Abs Auto 0.14 X10*3/uL (0.00-0.03); Imm Gran Pct Auto 0.6 % (0.0-0.4); Lymphocytes Absolute Auto 1.7 X10*3/uL (1.2-4.9); Lymphocytes Percent Auto 7.5 % (20-40); MANUAL DIFF FLAG NO; Mean Corpuscular HGB Conc 31.6 g/dl (31.0-35.0); Mean Corpuscular Hemoglobin 27.7 pg (27.0-33.0); Mean Corpuscular Volume 87.7 fL (80.0-98.0); Mean Platelet Volume 10.7 fL (9.4-12.3); Monocytes Absolute Auto 1.1 X10*3/uL (0.1-1.2); Monocytes Percent Auto 4.8 % (2-11); Neutrophils Absolute Auto 19.3 x10*3/uL (2.0-8.3); Neutrophils Percent Auto 86.8 % (45-73); Platelet Count 449 X10*3/uL (160-400); Red Blood Count 4.94 X10*6/uL (4.20-5.50); Red Cell Distribution Width 13.8 % (11.0-16.0); White Blood Count 22.3 X10*3/uL (4.8-10.8)
[2023-02-15 11:17] LABS: Adenovirus PCR Not Detected (Not Detect.); Bordetella parapertussis PCR Not Detected (Not Detect.); Bordetella pertussis PCR Not Detected (Not Detect.); Chlamydia pneumoniae PCR Not Detected (Not Detect.); Coronavirus 229E PCR Not Detected (Not Detect.); Coronavirus HKU1 PCR Not Detected (Not Detect.); Coronavirus NL63 PCR Not Detected (Not Detect.); Coronavirus OC43 PCR Not Detected (Not Detect.); Human metapneumovirus PCR Not Detected (Not Detect.); Influenza A PCR Not Detected (Not Detect.); Influenza B PCR Not Detected (Not Detect.); Mycoplasma pneumoniae PCR Not Detected (Not Detect.); Parainfluenza 1 PCR Not Detected (Not Detect.); Parainfluenza 2 PCR Not Detected (Not Detect.); Parainfluenza 3 PCR Not Detected (Not Detect.); Parainfluenza 4 PCR Not Detected (Not Detect.); RSV PCR Not Detected (Not Detect.); Rhino/Enterovirus PCR Not Detected (Not Detect.); SARS-CoV-2 PCR Not Detected (Not Detect.)
--- NOTE | 2023-02-15 11:31 | PM.DS ---
DS: Providers Provider Date of Service: 02/15/23 Date of admission: 02/14/23 04:00 Date of discharge: 02/15/23 Primary care physician: Dara Ricardo MD Attending physician on admission: Mohit Delaney Attending physician on discharge: Adam Martin Discharging clinician: Mayra Kang DS: Diagnosis Discharge Diagnosis (1) Asthma with exacerbation: Status: Acute DS: Summary Hospital Course Hospital Course: HPI on admission by Dr. Delaney on 02/14: This is a 62-year-old female with pertinent history of essential hypertension, mood disorder, asthma/COPD overlap syndrome not on home oxygen, MARY not on CPAP, tobacco use disorder who presents to the emergency department for evaluation of dyspnea. Patient states that she started having dyspnea which was worse with exertion and wheezing on the day of presentation. Also has been having nonproductive cough. Does not use oxygen at home. EMS found her to be 90% on room air. No chest discomfort palpitations. States she continues to smoke about 3 or 4 cigarettes per day. No fever, chills, abdominal pain, changes in urinary or bowel habits. Patient states it feels like her asthma attack in the past. In the emergency department, patient with continued wheezing despite multiple DuoNeb treatments. Hospital course: Hospital course uneventful. Admitted to [facility] [place] for acute asthma/COPD overlap exacerbation with respiratory distress. She was admitted and treated with IV methylprednisolone and scheduled DuoNebs with full resolution of respiratory distress. Full respiratory viral panel was ordered and was negative. Chest x-ray was negative for any pneumonia. Oximetry remained stable throughout admission though was placed on 2 L supplemental O2 overnight due to obstructive sleep apnea but did not require daytime oxygen. Discussed with patient the importance of compliance with CPAP usage and strongly advised smoking cessation. She was offered but refused nicotine patches. On morning of admission, lungs clear to auscultation, patient resting comfortably without any complaints. She will be discharged home with prednisone 40 mg x 5 days and advised to use albuterol inhalers as needed. Labs unremarkable through admission, except for leukocytosis secondary to steroid use Follow up with PCP soon. Status at Discharge Functional status at discharge: independent ambulation Overall status at discharge: patient is progressing back to baseline Time Attestation Discharge coordination time: Greater than 30 minutes Quality: Safe Use of Opioids Does Pt have an Active Cancer Diagnosis on the Problem List?: No Quality: Stroke Does the patient have a stroke diagnosis?: No Physical Exam Vital Signs: Vital Signs: Last Vital Signs Temp 96.8 F 02/15/23 07:30 Pulse 75 02/15/23 07:59 Resp 18 02/15/23 07:59 BP 111/56 L 02/15/23 07:30 Pulse Ox 92 02/15/23 10:00 O2 Del Method Room Air 02/15/23 10:00 O2 Flow Rate 2 02/15/23 07:30 BMI result Body Mass Index 27.0 Constitutional - Awake and Alert, No apparent distress Eyes - PERRLA, EOMI Cardiovascular - S1S2, RRR, No edema Respiratory - Normal lung expansion, Normal respiratory effort, No respiratory distress, CTA bilaterally Extremities - no calf tenderness bilaterally, no swelling Skin - Warm/Dry Neurological - Alert & oriented x3 Psychological - Appropriate affect DS: Data Data Completed and Pending Completed studies during hospitalization [Text1]: Procedures Assistance with Respiratory Ventilation, Less than 24 Consecutive Hours, Continuous Positive Airway Pressure (10/21/22) Labs on day of discharge: Laboratory Results - last 24 hr 02/14/23 02/15/23 16:00 09:45 WBC 22.3 H RBC 4.94 Hgb 13.7 Hct 43.3 MCV 87.7 MCH 27.7 MCHC 31.6 RDW 13.8 Plt Count 449 H MPV 10.7 Immature Gran % (Auto) 0.6 H Neut % (Auto) 86.8 H Lymph % (Auto) 7.5 L [place] % (Auto) 4.8 Eos % (Auto) 0.1 Baso % (Auto) 0.2 Lymph # (Auto) 1.7 [place] # (Auto) 1.1 Eos # (Auto) 0.0 Baso # (Auto) 0.0 Abs Immat Gran (auto) 0.14 H Absolute Neuts (auto) 19.3 H Absolute Nucleated RBC 0.000 Nucleated RBC % (auto) 0.0 Respiratory Panel Damico See Note Adenovirus (Rapid PCR) Not Detected B.pert (TEM-PCR) Not Detected B.parapertussis DNA PCR Not Detected C. pneumoniae DNA (PCR) Not Detected Coronavirus OC43 (PCR) Not Detected Coronavirus HKU1 (PCR) Not Detected Coronavirus 229E (PCR) Not Detected Coronavirus NL63 (PCR) Not Detected Human Metapneumovir PCR Not Detected Influenza A (RT-PCR) Not Detected Influenza B (RT-PCR) Not Detected M. pneumoniae (PCR) Not Detected Parainfluenza 1 (PCR) Not Detected Parainfluenza 2 (PCR) Not Detected Parainfluenza 3 (PCR) Not Detected Parainfluenza 4 (PCR) Not Detected RSV (PCR) Not Detected Entero/Rhino (PCR) Not Detected SARS-CoV-2 RNA (RT-PCR) Not Detected Discharge Plan Discharge Anticipated Discharge Date/Time: 02/15/23 11:19 Patient Disposition: Home, Self-Care Discharge Diagnosis: asthma exacerbation Referrals: Dara Ricardo MD [Primary Care Provider] - 1 Week Discharge Medications: New prednisone 20 mg tablet 40 mg PO DAILY Qty: 10 0RF Continued acetaminophen 650 mg tablet extended release 650 mg PO Q8H PRN (Reason: for pain) Qty: 90 3RF fluticasone propion-salmeterol [Advair Diskus] 500-50 mcg/dose blister with device 1 ea INHALATION BID montelukast 10 mg tablet 10 mg PO BEDTIME bisacodyl 5 mg tablet,delayed release (DR/EC) 10 mg PO BEDTIME gabapentin 100 mg capsule 100 mg PO TID sertraline 50 mg tablet 50 mg PO DAILY calcium carbonate-vitamin D3 600 mg-10 mcg (400 unit) tablet 1 tab PO DAILY hydrochlorothiazide 12.5 mg tablet 12.5 mg PO DAILY clopidogrel 75 mg tablet 75 mg PO DAILY amitriptyline 25 mg tablet 25 mg PO BEDTIME folic acid 1 mg tablet 1 mg PO DAILY cyanocobalamin (vitamin B-12) 1,000 mcg tablet 1,000 mcg PO DAILY albuterol sulfate 2.5 mg /3 mL (0.083 %) solution for nebulization 2.5 mg inhalation Q4-6H PRN (Reason: wheezing) Discharge Orders: Discharge Order (Routine); Ordered 02/15/23 Ordered By: Mayra Kang Diet: Advance to usual diet Activity on Discharge: As tolerated Stand Alone Forms: Patient Portal Discharge page Care Plan Goals: Treat and prevent asthma exacerbation Health Concerns: Asthma exacerbation Plan of Treatment: Asthma exacerbation -continue prednisone 40mg daily x 5 days -Continue maintenance inhalers, albuterol as needed STOP SMOKING AND USE CPAP Follow up with PCP Assessment: See above, see discharge summary Discharge Date/Time: 02/15/23 11:57
== END 2023-02-15 11:57 | disposition home or self-care (01) ==
LOC: HO.ED 03:10 → HO.EDOVER 04:07 → HO.S3 12:58
PROVIDERS: Admitting Provider Student in an Organized Health Care Education/Training Program; Emergency Provider Emergency Medicine; PCP Internal Medicine; Visit Provider Physician Assistant
DX: J45.41 Moderate persistent asthma with (acute) exacerbation (principal); J44.9 Chronic obstructive pulmonary disease, unspecified; R06.00 Dyspnea, unspecified; R07.9 Chest pain, unspecified; E11.9 Type 2 diabetes mellitus without complications; E78.5 Hyperlipidemia, unspecified; I38 Endocarditis, valve unspecified; G43.909 Migraine, unspecified, not intractable, without status migrainosus; I10 Essential (primary) hypertension; G47.33 Obstructive sleep apnea (adult) (pediatric); Z20.822 Contact with and (suspected) exposure to COVID-19; Z20.828 Contact with and (suspected) exposure to other viral communicable diseases; Z79.899 Other long term (current) drug therapy
CPT/HCPCS: 0241U; 36415; 71045; 80048; 82803; 83880; 84484; 85025; 87633; 93005; 94640; 96365; 96372; 96375; 96376; 99221; 99285; J1650; J2920; J2930; J3475

== ENCOUNTER → 2023-02-14 02:06 | Outpatient (BNV) | payer MEDICAID, SELFPAY | PROVIDERS: Admitting Provider Student in an Organized Health Care Education/Training Program; Emergency Provider Emergency Medicine; PCP Internal Medicine; Visit Provider Internal Medicine Cardiovascular Disease | DX: R06.00 Dyspnea, unspecified (principal) | CPT/HCPCS: 93010 ==

== ENCOUNTER → 2023-02-14 04:00 | Outpatient (BNV) | payer MEDICAID, SELFPAY | PROVIDERS: Admitting Provider Student in an Organized Health Care Education/Training Program; Emergency Provider Emergency Medicine; PCP Internal Medicine; Visit Provider Student in an Organized Health Care Education/Training Program | DX: J45.41 Moderate persistent asthma with (acute) exacerbation (principal) | CPT/HCPCS: 99222; 99239; 99499 ==

== ENCOUNTER 2023-02-16 14:00 | Emergency (ER) | payer MEDICAID, SELFPAY ==
--- NOTE | ~2023-02-16 | XR_ITS ---
EXAMINATION: XR CHEST CLINICAL INFORMATION: SOB COMPARISON: None available. TECHNIQUE: Frontal view of the chest was obtained. FINDINGS: The lungs are well-expanded and clear. The heart size and pulmonary vascularity is normal. There is solitary pacer electrode in the right ventricle. There are median sternotomy sutures from previous intervention. No gross bony abnormality seen. XR/XR chest 1V IMPRESSION: Unremarkable chest exam.
[2023-02-16 14:08] VITALS: BP 174/90; PULSE 86; O2SAT 95
[2023-02-16 14:30] VITALS: BP 135/78; PULSE 76; RESP 18; TEMP 36.8; O2SAT 97; BMI 26.8
[2023-02-16 14:36] VITALS: BP 135/78; PULSE 76; RESP 18; TEMP 36.8; O2SAT 97
--- NOTE | 2023-02-16 15:41 | ECG_ITS ---
Test Reason : DYSPNEA Blood Pressure : / mmHG Vent. Rate : 066 BPM Atrial Rate : 267 BPM P-R Int : 000 ms QRS Dur : 144 ms QT Int : 498 ms P-R-T Axes : 000 -76 124 degrees QTc Int : 522 ms Ventricular-paced rhythm with occasional Premature ventricular complexes Abnormal ECG When compared with ECG of 14-FEB-2023 02:06, Vent. rate has increased BY 3 BPM Referred By: Yudi Hurtado Electronically Signed By:TONNY HANLEY MD
[2023-02-16] MEDS: Albuterol Sulfate 2.5 MG, Albuterol Sulfate (0.083%) 2.5 MG 5 MG INHALE (15:49)
[2023-02-16 15:51] VITALS: PULSE 90; RESP 18; O2SAT 96
--- NOTE | 2023-02-16 15:52 | ED.SOB ---
HPI - SOB/Dyspnea General Chief Complaint: Dyspnea Stated Complaint: SOB Time Seen by Provider: 02/16/23 14:04 History of Present Illness HPI Narrative: Patient is a 62-year-old female with a long history of smoking, COPD/asthma, was just discharged from the hospital yesterday. She was supposed to take steroids. Treatments at home. Told to stop smoking. Presented today coming back thanking that shoes someone called her to come back into the hospital for further evaluation. Patient unsure who called her. She just left the hospital yesterday. There is no fever no chills. She lives at home. Has CPAP at night. Normally not on oxygen. History of coronary artery disease status post pacemaker Related Data Home Medications Medication Instructions Recorded Confirmed amitriptyline 25 mg tablet 25 mg PO BEDTIME 07/03/22 02/14/23 bisacodyl 5 mg tablet,delayed 10 mg PO BEDTIME 07/03/22 02/14/23 release calcium carbonate 600 mg-vitamin 1 tab PO DAILY 07/03/22 02/14/23 D3 10 mcg (400 unit) tablet clopidogrel 75 mg tablet 75 mg PO DAILY 07/03/22 02/14/23 cyanocobalamin (vitamin B-12) 1,000 mcg PO DAILY 07/03/22 02/14/23 1,000 mcg tablet folic acid 1 mg tablet 1 mg PO DAILY 07/03/22 02/14/23 gabapentin 100 mg capsule 100 mg PO TID 07/03/22 02/14/23 hydrochlorothiazide 12.5 mg tablet 12.5 mg PO DAILY 07/03/22 02/14/23 montelukast 10 mg tablet 10 mg PO BEDTIME 07/03/22 02/14/23 sertraline 50 mg tablet 50 mg PO DAILY 07/03/22 02/14/23 albuterol sulfate 2.5 mg/3 mL 2.5 mg inhalation Q4-6H PRN 11/28/22 02/14/23 (0.083 %) solution for nebulization wheezing fluticasone 500 mcg-salmeterol 50 1 ea inhalation BID 02/14/23 02/14/23 mcg/dose blistr powdr for inhalation (Advair Diskus) Previous Rx's Medication Instructions Recorded acetaminophen 650 mg 650 mg PO Q8H PRN for pain #90 tabs 01/04/23 tablet,extended release prednisone 20 mg tablet 40 mg (2 x 20 mg) PO DAILY #10 tabs 02/15/23 Allergies Allergy/AdvReac Type Severity Reaction Status Date / Time latex [LATEX] Allergy Severe DIFFICULTY Verified 02/14/23 04:17 BREATHING aspirin [Aspirin] Allergy Intermediate ITCHING, Verified 02/14/23 04:17 itchiness ciprofloxacin [From CIPRO] Allergy Intermediate DIAPHORESIS Verified 02/14/23 04:17 /PURITIS Penicillins [PENICILLINS] Allergy Unknown UNKNOWN Verified 02/14/23 04:17 HEMALATHA Inhibitors AdvReac Intermediate COUGH Verified 02/14/23 04:17 [HEMALATHA INHIBITORS] Review of Systems Review of Systems: Positive coughing congestion upper respiratory symptoms Yes all other systems are reviewed and are negative PMFSH Past Medical History Attestation statement: The following information was validated with the patient. Medical History Smoking Restrictive airway disease MARY (obstructive sleep apnea) COPD (chronic obstructive pulmonary disease) MARY on CPAP Reactive airways dysfunction syndrome Rheumatoid arthritis Fibromyalgia GERD (gastroesophageal reflux disease) MARY (obstructive sleep apnea) Aortic valve endocarditis COPD (chronic obstructive pulmonary disease) COPD exacerbation Overactive bladder Bronchitis Allergic rhinitis COPD (chronic obstructive pulmonary disease) Asthma Hx of cardiac pacemaker Hx of migraines Hx of coronary artery disease History of urinary incontinence Hx of essential hypertension History of depression Hx of drug abuse Hx of hyperlipidemia Hx of allergic rhinitis History of enuresis Hx of osteoarthritis Hx of pilonidal cyst Family history of GERD History of arthritis Hx of diabetes mellitus Surgical History History of surgical removal of pilonidal cyst Hx of bilateral cataract extraction Hx of colonoscopy History of cystoscopy History of hysterectomy Hx of aortic valve replacement Hx laparoscopic cholecystectomy History of epidermal inclusion cyst excision Social History Social History Household Members: Family Household Members Other:: self Housing: Apartment Do you presently have visiting nurse or other home services: Yes (Home health aide) Alcohol intake: former Patient Tobacco Use Status: Current everyday Tobacco user Tobacco use type: Cigarette Cigarettes Per Day: 3 Smoked in Last 30 Days: No e-Cigarette/Vaping Use: Currently Using Second Hand Smoke Exposure: Yes Use of substances other than those prescribed or required for medical reasons: No Advance Directives: No Advance Directives Information Provided: No Advance Directives Date on File: 11/08/21 service: No Current occupational status: unemployed and disabled Physical Exam Vital Signs: Vital Signs: Last Vital Signs Temp 98.2 F 02/16/23 14:36 Pulse 90 02/16/23 15:51 Resp 18 02/16/23 15:51 BP 135/78 02/16/23 14:36 Pulse Ox 97 02/16/23 14:36 O2 Del Method Room Air 02/16/23 14:36 BMI result Body Mass Index 26.8 Appearance: Alert. Oriented X3. No acute distress. Eyes: Pupils equal, round and reactive to light. ENT: Pharynx normal. Neck: Normal inspection. Neck supple. No lymph nodes noted. No crepitus CVS: Normal heart rate and rhythm. Pulses normal. Normal S1 and S2 Respiratory: Diminished breath sounds bilaterally with wheezing noted bilaterally. Abdomen: Soft and nontender. No rigidity. No distention. good BS x4 Skin: Skin warm and dry. Normal skin color. Normal skin turgor. Extremities: No lower extremity edema. Neurovascular intact to all extremities. No Lacerations. No Rash Neuro: Oriented X 3. No motor deficit. No sensory deficit. Moving all extermities. No slurred speech Medications Administered Discontinued Medications Generic Name Dose Route Start Last Admin Trade Name Kiah PRN Reason Stop Dose Admin Albuterol Sulfate 2.5 mg/ 5 mg 02/16/23 15:41 02/16/23 15:49 Albuterol Sulfate 2.5 mg INHALE 02/16/23 15:42 5 mg ONCE ONE Administration Medical Decision Making Medical Decision Making MDM Narrative: Positive history of COPD/asthma presented today with having the same shortness of breath as when she was left the hospital yesterday. Patient claims she received a phone call telling her to come back to the hospital today. I contacted the hospitalist team. There no one called her back. I went through patient's note from the hospitalist team and through the Cardiology. There is no add under my own mind she was called back. Her lungs did sound tight. Question how much of that is chronic. Patient's O2 sats 95% on room air. Will give a neb treatment number the last. The nebs ordered. One dose of steroids given. Will monitor patient carefully. In stable condition. Chest x-ray ordered. Differential Diagnosis COPD, flu, RSV, COVID Admission/Observation Consideration of admission/observation: Escalation of care including admission/observation considered Consult Healthcare Provider Management of the patient was discussed with: Hospitalist Discharge Plan Discharge Clinical Impression: COPD (chronic obstructive pulmonary disease) Patient Disposition: Still a Patient Prescriptions: No Action acetaminophen 650 mg tablet extended release 650 mg PO Q8H PRN (Reason: for pain) Qty: 90 3RF fluticasone propion-salmeterol [Advair Diskus] 500-50 mcg/dose blister with device 1 ea INHALATION BID prednisone 20 mg tablet 40 mg PO DAILY Qty: 10 0RF montelukast 10 mg tablet 10 mg PO BEDTIME bisacodyl 5 mg tablet,delayed release (DR/EC) 10 mg PO BEDTIME gabapentin 100 mg capsule 100 mg PO TID sertraline 50 mg tablet 50 mg PO DAILY calcium carbonate-vitamin D3 600 mg-10 mcg (400 unit) tablet 1 tab PO DAILY hydrochlorothiazide 12.5 mg tablet 12.5 mg PO DAILY clopidogrel 75 mg tablet 75 mg PO DAILY amitriptyline 25 mg tablet 25 mg PO BEDTIME folic acid 1 mg tablet 1 mg PO DAILY cyanocobalamin (vitamin B-12) 1,000 mcg tablet 1,000 mcg PO DAILY albuterol sulfate 2.5 mg /3 mL (0.083 %) solution for nebulization 2.5 mg inhalation Q4-6H PRN (Reason: wheezing)
[2023-02-16] MEDS: predniSONE 20 MG TABLET 40 MG PO (15:57)
--- NOTE | 2023-02-16 16:10 | PHA.MEDREC ---
Pharmacy Consult ? Medication Reconciliation Pharmacy has completed the medication reconciliation. Patient discharge yesterday 02/15/23, med rec completed by Mike Trujillo on admission. Used discharge summary to complete med rec. [facility]
--- NOTE | 2023-02-16 16:35 | PC.NURSE ---
pt coming in for sob and cough, reports being d/c ad someone calling her back to return. Unknown who it was. Pt is wheezy throughout lung villar. Pt is in no apparent respiratory distress. Pt denies using o2 at home. skin pwd. Pt denies all other symptoms.pt uses walker at home.
[2023-02-16 16:59] LABS: MANUAL DIFF FLAG NO
[2023-02-16 17:06] LABS: Basophils Absolute Auto 0.1 X10*3/uL (0.0-0.2); Basophils Percent Auto 0.5 % (0-2); Eosinophils Absolute Auto 0.8 X10*3/uL (0.0-0.4); Eosinophils Percent Auto 7.2 % (0-4); Hematocrit 45.8 % (37.0-47.0); Hemoglobin 14.4 g/dl (12.0-16.0); Imm Gran Abs Auto 0.05 X10*3/uL (0.00-0.03); Imm Gran Pct Auto 0.5 % (0.0-0.4); Lymphocytes Absolute Auto 2.6 X10*3/uL (1.2-4.9); Lymphocytes Percent Auto 24.5 % (20-40); Mean Corpuscular HGB Conc 31.4 g/dl (31.0-35.0); Mean Corpuscular Hemoglobin 28.3 pg (27.0-33.0); Mean Platelet Volume 9.4 fL (9.4-12.3); Monocytes Absolute Auto 0.7 X10*3/uL (0.1-1.2); Monocytes Percent Auto 6.8 % (2-11); Neutrophils Absolute Auto 6.5 x10*3/uL (2.0-8.3); Neutrophils Percent Auto 60.5 % (45-73); Platelet Count 496 X10*3/uL (160-400); Red Blood Count 5.09 X10*6/uL (4.20-5.50); Red Cell Distribution Width 13.6 % (11.0-16.0); White Blood Count 10.7 X10*3/uL (4.8-10.8)
[2023-02-16] MEDS: Albuterol Sulfate 2.5 MG, Albuterol/Iprat 2.5/0.5MG 3 ML 3 ML INHALE (17:25)
[2023-02-16 17:26] VITALS: PULSE 64; RESP 18; O2SAT 94
[2023-02-16 17:34] LABS: Anion Gap 17 (12-20); Blood Urea Nitrogen 14 mg/dL (9-16); Carbon Dioxide 26 mmol/L (22-29); Chloride 103 mmol/L (96-108); Creatinine Clr Calc Pharmacy 65.5; Estimated Glomerular Filt Rate > 60; Glucose Random 106 mg/dL (60-115); Potassium 3.7 mmol/L (3.3-5.1); Sodium 142 mmol/L (135-145)
[2023-02-16 17:43] LABS: Troponin-I High Sensitivity 26.7 ng/L (<3.5-17.0)
[2023-02-16 17:44] LABS: Influenza A PCR NEGATIVE (Negative); Influenza B PCR NEGATIVE (Negative); Resp Syncy Virus RNA Qual PCR NEGATIVE (Negative); SARS COV2 PCR INHOUSE NEGATIVE (Negative)
--- NOTE | 2023-02-16 19:22 | PC.NURSE ---
this rn assumed care of pt. pt ready for discharge, no acute distress noted. awaiting ambulance ride home.
[2023-02-16 19:29] VITALS: BP 122/71; PULSE 57; RESP 18; TEMP 37.1; O2SAT 93
--- NOTE | 2023-02-16 19:30 | PC.NURSE ---
ems at bedside, report given.
== END 2023-02-16 19:31 | disposition home or self-care (01) ==
PROVIDERS: Emergency Provider Emergency Medicine Emergency Medical Services; PCP Internal Medicine
DX: R06.02 Shortness of breath (principal); J44.9 Chronic obstructive pulmonary disease, unspecified; R94.31 Abnormal electrocardiogram [ECG] [EKG]; F17.210 Nicotine dependence, cigarettes, uncomplicated; Z20.822 Contact with and (suspected) exposure to COVID-19; Z20.828 Contact with and (suspected) exposure to other viral communicable diseases; Z79.899 Other long term (current) drug therapy; Z71.6 Tobacco abuse counseling
CPT/HCPCS: 0241U; 36415; 71045; 80048; 84484; 85025; 93005; 94640; 99284; 99285

== ENCOUNTER → 2023-02-16 15:41 | Outpatient (BNV) | payer MEDICAID, SELFPAY | PROVIDERS: Emergency Provider Emergency Medicine Emergency Medical Services; PCP Internal Medicine; Visit Provider Internal Medicine Cardiovascular Disease | DX: R94.31 Abnormal electrocardiogram [ECG] [EKG] (principal) | CPT/HCPCS: 93010 ==

== ENCOUNTER 2023-03-02 14:18 | Emergency (ER) | payer MEDICAID, SELFPAY ==
[2023-03-02 14:21] VITALS: BP 135/87; PULSE 83; O2SAT 94
[2023-03-02 14:59] VITALS: BP 147/86; PULSE 66; RESP 18; TEMP 37; O2SAT 96; BMI 25.8
== END 2023-03-02 20:19 | disposition left against medical advice (07) ==
PROVIDERS: Emergency Provider Emergency Medicine; PCP Internal Medicine
DX: R06.02 Shortness of breath (principal)
CPT/HCPCS: 99281

== ENCOUNTER 2023-03-12 09:23 | Day surgery (SDC) | payer MEDICAID, SELFPAY ==
[2023-03-12 09:51] VITALS: BP 140/76; PULSE 66; RESP 18; TEMP 36.5; O2SAT 94
[2023-03-12 10:01] VITALS: BMI 21.7
--- NOTE | 2023-03-12 11:41 | MHC.SHP ---
Pre-Procedural Eval Section A Date of Service: 03/12/23 The patient is an INPATIENT: No Changes since office visit: No Cold of Flu in the past 2 weeks, No New Medical Problems, No Changes in Medication and No Patient answered all questions The History & Physical has been completed within 30 days and I have reviewed it.: Yes Section B Chief Complaint: Overactive bladder Details of Present Illness: removal of interstim generator and lead Allergies: Allergies Allergy/AdvReac Type Severity Reaction Status Date / Time latex [LATEX] Allergy Severe DIFFICULTY Verified 03/12/23 10:21 BREATHING aspirin [Aspirin] Allergy Intermediate ITCHING, Verified 03/12/23 10:21 itchiness ciprofloxacin [From CIPRO] Allergy Intermediate DIAPHORESIS Verified 03/12/23 10:21 /PURITIS Penicillins [PENICILLINS] Allergy Unknown UNKNOWN Verified 03/12/23 10:21 HEMALATHA Inhibitors AdvReac Intermediate COUGH Verified 03/12/23 10:21 [HEMALATHA INHIBITORS] Plan I have reviewed the history and physical and performed a pertinent physical examination on my patient. No changes have occurred unless specified. Time Spent With Patient Time: Total time managing care of this patient today ____ minutes.
[2023-03-12 12:00] LABS: Glucose, Whole Blood 116 mg/dL (60-115)
--- NOTE | 2023-03-12 13:07 | W.PM.OPN ---
Operative Note Operative Note Date of Service: 03/12/23 Narrative: PreOperative Diagnosis: Overactive bladder with urinary urgency and frequency - not functioning stimulator Post Operative Diagnosis: Overactive bladder with urinary urgency and frequency Procedure: 1.) Removal of InterStim lead 2.) Removal of InterStim battery Surgeon: Dr Usman Vivas Anesthesia: sedation Indications for procedure: Interstim not working Procedure: After informed consent was verified the patient was brought to the operating room. Sedation anesthesia was administered per protocol. The patient was placed in a prone position and prepped and draped in a sterile fashion. Safety pause time-out was performed. Local anesthetic was infiltrated around the initial battery pocket incision on the right lateral superior buttock. Incision was made and taken down till the battery was encountered. The battery pocket was opened and a battery brought out to the skin. The lead entering S3 on the right side was targeted. Local anesthetic was infiltrated around the prior incision and incision made through the skin. Using blunt dissection the original lead was isolated and brought up through our skin incision. This was get disconnected from the battery to give us the full lead in the sacral position. The lead was dissected down until we could palpate the transition to the thickened plastic. Using a right angle clamp we were able to fully withdrawal the old lead from its position in the S3 foramen. Interrupted 3-0 Vicryl sutures were used to close the defect spaces and bring skin edges together. Running 4-0 Monocryl sutures were used to appose skin edges. Incisions were dressed using skin glue followed by Tegaderm dressing. Patient tolerated procedure well was extubated in operating room transferred in stable condition to the recovery area.
[2023-03-12 13:10] VITALS: BP 121/79; PULSE 61; RESP 20; TEMP 36.3; O2SAT 93
[2023-03-12 13:25] VITALS: BP 112/58; PULSE 77; RESP 20; O2SAT 94
== END 2023-03-12 14:04 | disposition home or self-care (01) ==
PROVIDERS: PCP Internal Medicine; Visit Provider Urology
PROC: (CPT 64585; principal; 2023-03-12 12:20)
DX: T83.110A Breakdown (mechanical) of urinary electronic stimulator device, initial encounter (principal); N32.81 Overactive bladder; R39.15 Urgency of urination; R35.0 Frequency of micturition; Y73.2 Prosthetic and other implants, materials and accessory gastroenterology and urology devices associated with adverse incidents
CPT/HCPCS: 64585; 64595; 82947; 88300; J0690; J2250; J2704; J2795; J3010

== ENCOUNTER → 2023-03-12 09:23 | Outpatient (BNV) | payer MEDICAID, SELFPAY | PROVIDERS: PCP Internal Medicine; Visit Provider Urology | DX: N32.81 Overactive bladder (principal); Z45.42 Encounter for adjustment and management of neurostimulator | CPT/HCPCS: 64585; 64595 ==

== ENCOUNTER 2023-03-14 06:22 | Inpatient (IN) | payer MEDICAID, SELFPAY ==
[2023-03-14] VITALS (12 sets, daily range): BP systolic 126–146; BP diastolic 61–77; PULSE 56–90; RESP 14–29; TEMP 36.1–36.7; O2SAT 89–97; BMI 25.3
--- NOTE | ~2023-03-14 | XR_ITS ---
EXAMINATION: XR CHEST CLINICAL INFORMATION: Cough/SOB. COMPARISON: Chest 02/16/2023. TECHNIQUE: Frontal view of the chest was obtained. FINDINGS: The lungs are well-expanded and clear of acute process. Heart size and pulmonary vascularity is normal. There is solitary pacer electrode with its tip in the right ventricle. There are median sternotomy sutures from previous intervention. XR/XR chest 1V IMPRESSION: Unremarkable chest examination. No change from previous exam 02/16/2023.
--- NOTE | 2023-03-14 06:36 | ECG_ITS ---
Test Reason : SOB Blood Pressure : / mmHG Vent. Rate : 061 BPM Atrial Rate : 061 BPM P-R Int : 000 ms QRS Dur : 156 ms QT Int : 464 ms P-R-T Axes : 000 -76 095 degrees QTc Int : 467 ms Ventricular-paced rhythm Abnormal ECG When compared with ECG of 16-FEB-2023 17:00, No significant changes seen Referred By: Generic ED Physician Electronically Signed By:RANDI EMERSON
--- NOTE | 2023-03-14 07:03 | ED.SOB ---
HPI - SOB/Dyspnea General Chief Complaint: Dyspnea Stated Complaint: SOB,DRY COUGH,ON DUONEB PER EMS Time Seen by Provider: 03/14/23 06:32 Source: patient, EMS, RN notes reviewed and old records reviewed Mode of arrival: EMS History of Present Illness HPI Narrative: 62-year-old female with a past medical history of MARY, asthma/COPD, fibromyalgia, GERD, CAD, HTN, HLD, s/p removal of InterStim generator by Urology on 03/12/22, presenting to the ED complaining of cough, SOB, and CP since yesterday. Admits to using 5-6 DuoNebs at home [employer], also given DuoNeb by EMS. Per EMS patient was 89% on RA. Denies home O2 use. Denies fever/chills, recent travel, sick contacts, pedal edema. MD elicited complaint: shortness of breath and cough Related Data Home Medications Medication Instructions Recorded Confirmed amitriptyline 25 mg tablet 25 mg PO BEDTIME 07/03/22 02/16/23 bisacodyl 5 mg tablet,delayed 10 mg PO BEDTIME 07/03/22 02/16/23 release calcium carbonate 600 mg-vitamin 1 tab PO DAILY 07/03/22 02/16/23 D3 10 mcg (400 unit) tablet clopidogrel 75 mg tablet 75 mg PO DAILY 07/03/22 02/16/23 cyanocobalamin (vitamin B-12) 1,000 mcg PO DAILY 07/03/22 02/16/23 1,000 mcg tablet folic acid 1 mg tablet 1 mg PO DAILY 07/03/22 02/16/23 gabapentin 100 mg capsule 100 mg PO TID 07/03/22 02/16/23 hydrochlorothiazide 12.5 mg tablet 12.5 mg PO DAILY 07/03/22 02/16/23 montelukast 10 mg tablet 10 mg PO BEDTIME 07/03/22 02/16/23 sertraline 50 mg tablet 50 mg PO DAILY 07/03/22 02/16/23 albuterol sulfate 2.5 mg/3 mL 2.5 mg inhalation Q4-6H PRN 11/28/22 02/16/23 (0.083 %) solution for nebulization wheezing fluticasone 500 mcg-salmeterol 50 1 ea inhalation BID 02/14/23 02/16/23 mcg/dose blistr powdr for inhalation (Advair Diskus) Previous Rx's Medication Instructions Recorded acetaminophen 650 mg 650 mg PO Q8H PRN for pain #90 tabs 01/04/23 tablet,extended release prednisone 20 mg tablet 40 mg (2 x 20 mg) PO DAILY #10 tabs 02/15/23 Allergies Allergy/AdvReac Type Severity Reaction Status Date / Time latex [LATEX] Allergy Severe DIFFICULTY Verified 03/12/23 10:21 BREATHING aspirin [Aspirin] Allergy Intermediate ITCHING, Verified 03/12/23 10:21 itchiness ciprofloxacin [From CIPRO] Allergy Intermediate DIAPHORESIS Verified 03/12/23 10:21 /PURITIS Penicillins [PENICILLINS] Allergy Unknown UNKNOWN Verified 03/12/23 10:21 HEMALATHA Inhibitors AdvReac Intermediate COUGH Verified 03/12/23 10:21 [HEMALATHA INHIBITORS] Review of Systems Review of Systems: Constitutional: No Fever, No Chills ENT/Mouth: No Ear Pain, No Nasal Congestion, No sore throat, No Rhinorrhea, No Swallowing Difficulty Cardiovascular: +Chest Pain, + SOB Respiratory: +Cough, No Sputum, No Wheezing Gastrointestinal: No Nausea, No Vomiting, No Diarrhea, No Constipation, No Abdominal pain Genitourinary: No Dysuria, No Urinary Frequency, No Hematuria, No Flank Pain Musculoskeletal: No joint pain, No Myalgias, No Joint Swelling Skin: No Skin Lesions, No rash Neuro: No Weakness Yes all other systems are reviewed and are negative Constitutional: Constitutional: Reports as per [facility] Past Medical History Attestation statement: The following information was validated with the patient. Source: old records reviewed Onset Date is defined in the Problem List Problems that require an onset date and time if occurred within 24 hrs of arrival to the ED Aortic Dissection and Rupture; Neurologic impairment; Cardiopulmonary Arrest; Endotracheal Intubation; Insertion or Replacement of Mechanical Circulatory Assist Device Medical History Asthma with exacerbation Smoking Restrictive airway disease MARY (obstructive sleep apnea) COPD (chronic obstructive pulmonary disease) MARY on CPAP Reactive airways dysfunction syndrome Rheumatoid arthritis Fibromyalgia GERD (gastroesophageal reflux disease) MARY (obstructive sleep apnea) Aortic valve endocarditis COPD (chronic obstructive pulmonary disease) COPD exacerbation Overactive bladder Bronchitis Allergic rhinitis COPD (chronic obstructive pulmonary disease) Asthma Hx of cardiac pacemaker Hx of migraines Hx of coronary artery disease History of urinary incontinence Hx of essential hypertension History of depression Hx of drug abuse Hx of hyperlipidemia Hx of allergic rhinitis History of enuresis Hx of osteoarthritis Hx of pilonidal cyst Family history of GERD History of arthritis Hx of diabetes mellitus Surgical History History of surgical removal of pilonidal cyst Hx of bilateral cataract extraction Hx of colonoscopy History of cystoscopy History of hysterectomy Hx of aortic valve replacement Hx laparoscopic cholecystectomy History of epidermal inclusion cyst excision Social History Social History Household Members: Family Household Members Other:: self Housing: Apartment Do you presently have visiting nurse or other home services: Yes (Home health aide) Alcohol intake: former Patient Tobacco Use Status: Former Tobacco user Tobacco use type: Cigarette Cigarettes Per Day: 3 e-Cigarette/Vaping Use: Currently Using Second Hand Smoke Exposure: Yes Advance Directives: Yes Advance Directives on File: Yes Advance Directives Date on File: 11/08/21 service: No Current occupational status: unemployed and disabled Physical Exam Vital Signs: Vital Signs: Last Vital Signs Pulse 83 03/14/23 10:46 Resp 16 03/14/23 10:46 BP 131/73 03/14/23 10:46 Pulse Ox 95 03/14/23 10:46 O2 Del Method Room Air 03/14/23 10:46 BMI result Body Mass Index 25.3 Const: General: cooperative, healthy appearing and no acute distress Orientation/consciousness: patient oriented x3 Limitations: no limitations HEENT: Head: Yes normal to inspection and Yes atraumatic Ears: hearing grossly normal bilaterally General nose exam: Normal external nose present Face and sinus: Yes normal facial exam Eyes: General: appearance normal, both eyes and all related structures EOM: EOMs intact bilaterally Neck: Neck: Yes normal visual inspection and Yes no meningeal signs Resp: Effort & Inspection: normal respiratory effort and no respiratory distress Auscultation: wheezes expiratory wheezes and throughout Cardio: Rate: regular rate Heart sounds: S1 normal heart sound present and S2 normal heart sound present Back/Spine/Pelvis: Other: + dressing applied to lumbar region/right upper buttock. No surrounding erythema or drainage Skin: Rashes: no rashes Wounds: no wounds Neuro: General: patient oriented x3, tone normal and no meningeal signs Cranial nerves: Yes CN's II-XII intact bilaterally Gait exam (Neuro): Normal gait present Extrem: General: Yes normal to inspection and Yes no pedal edema Course Course Course Narrative: Delay in labs/IV medications due to difficulty obtaining IV access -1021--potassium low at 3.0 > p.o. repletion ordered. Initial troponin 16.9, will obtain 3 hour repeat. BNP chronically elevated -COVID and flu negative XR chest 1V IMPRESSION: Unremarkable chest examination. No change from previous exam 02/16/2023. >1130--on re-evaluation patient still with diffuse expiratory wheeze after multiple DuoNebs and IV Solu-Medrol. IV magnesium ordered, plan for admission Medications Administered Discontinued Medications Generic Name Dose Route Start Last Admin Trade Name Freq PRN Reason Stop Dose Admin Albuterol Sulfate 5 mg/ 0 mg 03/14/23 07:12 03/14/23 07:16 Albuterol/Ipratropium 3 ml INHALE 03/14/23 07:13 1 each ONCE ONE Administration Albuterol Sulfate 5 mg/ 0 mg 03/14/23 10:26 03/14/23 10:28 Albuterol/Ipratropium 3 ml INHALE 03/14/23 10:27 1 each ONCE ONE Administration Methylprednisolone Sodium Succinate 125 mg 03/14/23 06:52 03/14/23 10:01 Methylprednisolone Sod Succ 125 Mg/2 Ml Vial IVPUSH 03/14/23 06:53 125 mg ONCE ONE Administration Potassium Chloride 60 meq 03/14/23 10:22 03/14/23 10:45 Potassium Chloride Packet 20 Meq Packet PO 03/14/23 10:23 60 meq ONCE ONE Administration Medical Decision Making Medical Decision Making [facility] Narrative: 62-year-old female with a past medical history of MARY, asthma/COPD, fibromyalgia, GERD, CAD, HTN, HLD, s/p removal of InterStim generator by Urology on 03/12/22, presenting to the ED complaining of cough, SOB, and CP since yesterday. On exam satting 92-95% on RA, diffuse expiratory wheeze appreciated. No pedal edema. Talking in complete sentences. Concern for asthma/COPD exacerbation vs ACS vs viral syndrome vs pneumonia. Lower suspicion for PE/DVT or dissection. Plan: EKG, labs, UA, CXR, viral testing, ED Benigno protocol, IV Solu-Medrol, re-evaluate Please refer to course for remaining clinical decision making, interpretation of labs/imaging results, and discussions with consultants and/or family members. Differential Diagnosis Differential Diagnoses: The differential diagnosis associated with the presentation includes As above Admission/Observation Consideration of admission/observation: Escalation of care including admission/observation considered Lab Data MDM Lab Attestation statement: I reviewed the patient's lab results. 03/14/23 09:51 03/14/23 09:51 Labs: Lab Results 03/14/23 03/14/23 Range/Units 07:45 09:51 WBC 8.2 (4.8-10.8) X10*3/uL RBC 4.91 (4.20-5.50) X10*6/uL Hgb 13.7 (12.0-16.0) g/dl Hct 41.9 (37.0-47.0) % MCV 85.3 (80.0-98.0) fL MCH 27.9 (27.0-33.0) pg MCHC 32.7 (31.0-35.0) g/dl RDW 14.5 (11.0-16.0) % Plt Count 422 H (160-400) X10*3/uL MPV 9.4 (9.4-12.3) fL Immature Gran % (Auto) 0.4 (0.0-0.4) % Neut % (Auto) 65.6 (45-73) % Lymph % (Auto) 17.1 L (20-40) % [place] % (Auto) 10.3 (2-11) % Eos % (Auto) 6.2 H (0-4) % Baso % (Auto) 0.4 (0-2) % Lymph # (Auto) 1.4 (1.2-4.9) X10*3/uL [place] # (Auto) 0.8 (0.1-1.2) X10*3/uL Eos # (Auto) 0.5 H (0.0-0.4) X10*3/uL Baso # (Auto) 0.0 (0.0-0.2) X10*3/uL Abs Immat Gran (auto) 0.03 (0.00-0.03) X10*3/uL Absolute Neuts (auto) 5.4 (2.0-8.3) x10*3/uL Absolute Nucleated RBC 0.000 (0.0-0.012) X10*3/uL Nucleated RBC % (auto) 0.0 (0.0-0.2) /100WBC Sodium 139 (135-145) mmol/L Potassium 3.0 L (3.3-5.1) mmol/L Chloride 99 (96-108) mmol/L Carbon Dioxide 32 H (22-29) mmol/L Anion Gap 11 L (12-20) BUN 8 L (9-16) mg/dL Creatinine 0.64 (0.5-1.4) mg/dL Estim Creat Clear Calc 71.8 Estimated GFR > 60 Random Glucose 134 H (60-115) mg/dL Calcium 10.0 (8.4-10.2) mg/dL Magnesium 1.7 (1.6-2.6) mg/dL Total Bilirubin 0.3 (0.0-1.0) mg/dL AST 15 (5-31) U/L ALT 8 (0-31) U/L Alkaline Phosphatase 73 (39-117) U/L Troponin I High Sens 16.9 (<3.5-17.0) ng/L B-Natriuretic Peptide 120 H (<100) pg/mL Total Protein 7.1 (6.5-8.0) g/dL Albumin 3.6 (3.5-5.0) g/dL COVID-19 (HOLLIS) Negative (Negative) COVID-19 Clin Com See Note Influenza Type A (GHADA) Negative (Negative) Influenza Type B (GHADA) Negative (Negative) Influenza A & B Note See Note Independent Interpretation I performed an independent interpretation of an: EKG (My interpretation EKG ventricular paced at a rate of 61. QTC 467. PVCs no longer present when compared to prior. No STEMI ) Radiology Impression Discussion of test interpretation with radiology: I have reviewed the radiologist's reading. Independent Historian Clinical information obtained from an independent historian. History obtained from or confirmed by: EMS External Record Review External record reviewed: Inpatient record, Office record, Outpatient record, Prior outpatient labs, Prior outpatient radiology, Primary care record and Outside ED record Tests considered The following testing was considered but not selected: As above Prescription Management I considered prescription management with: Antibiotic Chronic Conditions Patient?s care impacted by: Hypertension and Other Critical Care Time Critical Care Time Critical Care Time: Yes Total Critical Care Time: 40 Attestation: I have personally provided critical care time exclusive of time spent on separately billable procedures. Time includes review of lab data, radiology results, discussion with consultants, and monitoring for potential decompensation. Intervention performed as documented. Discharge Plan Discharge Clinical Impression: Asthma with exacerbation Patient Disposition: Admitted As Inpatient
[2023-03-14] MEDS: Albuterol Sulfate 5 MG, Albuterol/Iprat 2.5/0.5MG 3 ML 3 ML INHALE ×2 (07:16→10:28)
--- NOTE | 2023-03-14 07:50 | PC.NURSE ---
assumed care of pt at 0700. pt a&o x4, pleasant, calm, and cooperative. t/w attempted IV access with no success. vinita Correia attempted drawing labs with no success. pt difficult stick. pt finished breathing treatment and resting quietly on stretcher, lights off as requested. call basilio within pt reach. rr even/unlabored but with audible wheezing. plan of care ongoing.
[2023-03-14 08:24] LABS: COVID-19 Test Negative (Negative); IDNOW Serial# 58CA691E; IDNOW Serial# 9DB6401D; Influenza A Negative (Negative); Influenza B2 Negative (Negative)
--- NOTE | 2023-03-14 08:30 | PC.NURSE ---
EMANUEL Junior and SURESH Theodore also attempted IV access with no success.
--- NOTE | 2023-03-14 09:03 | PC.NURSE ---
Dr. Gambino attempted ultrasound guided IV placement on pt with no success. EMANUEL Aguilar RN for ultrasound guided attempt. awaiting EMANUEL Day.
[2023-03-14 09:56] LABS: MANUAL DIFF FLAG NO
[2023-03-14 09:58] LABS: Basophils Percent Auto 0.4 % (0-2); Eosinophils Absolute Auto 0.5 X10*3/uL (0.0-0.4); Eosinophils Percent Auto 6.2 % (0-4); Hematocrit 41.9 % (37.0-47.0); Hemoglobin 13.7 g/dl (12.0-16.0); Imm Gran Abs Auto 0.03 X10*3/uL (0.00-0.03); Imm Gran Pct Auto 0.4 % (0.0-0.4); Lymphocytes Absolute Auto 1.4 X10*3/uL (1.2-4.9); Lymphocytes Percent Auto 17.1 % (20-40); Mean Corpuscular HGB Conc 32.7 g/dl (31.0-35.0); Mean Corpuscular Hemoglobin 27.9 pg (27.0-33.0); Mean Corpuscular Volume 85.3 fL (80.0-98.0); Mean Platelet Volume 9.4 fL (9.4-12.3); Monocytes Absolute Auto 0.8 X10*3/uL (0.1-1.2); Monocytes Percent Auto 10.3 % (2-11); Neutrophils Absolute Auto 5.4 x10*3/uL (2.0-8.3); Neutrophils Percent Auto 65.6 % (45-73); Platelet Count 422 X10*3/uL (160-400); Red Blood Count 4.91 X10*6/uL (4.20-5.50); Red Cell Distribution Width 14.5 % (11.0-16.0); White Blood Count 8.2 X10*3/uL (4.8-10.8)
[2023-03-14] MEDS: methylPREDNISolone Sod Succ 125 MG/2 ML VIAL IVPUSH (10:01)
[2023-03-14 10:14] LABS: Alanine Aminotransferase 8 U/L (0-31); Albumin Level 3.6 g/dL (3.5-5.0); Alkaline Phosphatase 73 U/L (39-117); Anion Gap 11 (12-20); Aspartate Amino Transferase 15 U/L (5-31); Bilirubin Total 0.3 mg/dL (0.0-1.0); Blood Urea Nitrogen 8 mg/dL (9-16); Carbon Dioxide 32 mmol/L (22-29); Chloride 99 mmol/L (96-108); Creatinine Clr Calc Pharmacy 71.8; Estimated Glomerular Filt Rate > 60; Glucose Random 134 mg/dL (60-115); Magnesium 1.7 mg/dL (1.6-2.6); Sodium 139 mmol/L (135-145); Total Protein 7.1 g/dL (6.5-8.0)
--- NOTE | 2023-03-14 10:16 | PC.NURSE ---
Shay RN able to place 20G ultrasound guided IV to pt's right upper arm. labs drawn and sent. pt medicated per apr. Mathew RT called for another breathing treatment for pt. plan of care ongoing.
[2023-03-14 10:18] LABS: B Type Natriuretic Peptide 120 pg/mL (<100)
[2023-03-14 10:21] LABS: Troponin-I High Sensitivity 16.9 ng/L (<3.5-17.0)
[2023-03-14] MEDS: Potassium Chloride Packet 20 MEQ PACKET 60 MEQ PO (10:45)
--- NOTE | 2023-03-14 11:04 | ECG_ITS ---
Test Reason : RHYTHM CHANGE Blood Pressure : / mmHG Vent. Rate : 080 BPM Atrial Rate : 078 BPM P-R Int : 000 ms QRS Dur : 156 ms QT Int : 454 ms P-R-T Axes : 000 -75 090 degrees QTc Int : 523 ms Ventricular-paced rhythm Abnormal ECG When compared with ECG of 14-MAR-2023 06:53, Vent. rate has increased BY 19 BPM Referred By: Dottie Gambino Electronically Signed By:RANDI EMERSON
[2023-03-14] MEDS: Magnesium Sulfate/H2O 2 GM/50 ML PIGGYBACK IV (11:37)
--- NOTE | 2023-03-14 12:40 | P.HPHOSP_ITS ---
History of Present Illness Date of Service: 03/14/23 Attending physician on admission: Shakir Roland Chief Complaint: sob 61-year-old female with history of asthma/COPD overlap, current everyday smoker, GERD, history TAVR procedure following endocarditis on Plavix (hx IVDA), diabetes, hypertension, hyperlipidemia, MARY noncompliant with CPAP, overactive bladder, and rheumatoid arthritis presented to the ED via EMS for evaluation of shortness of breath ongoing [id number]. Denies any associated fevers, chills, st, congestion, abd pain, n/v/d, wheezing, lightheadedness, or chest pain. No known sick contacts or recent travel. States she has been working on quitting cigarettes and has not smoked in 5 days. Recently had been down to 1-2 cigs per day but historically smoked 1/2ppd with 30+pack year history. Follows with Dr. Simpson in pulmonology for asthma/copd overlap. Has a chronic cough, unchanged, currently nonproductive. On arrival, hypoxic to 89%, 95% on RA on admission. Vitals otherwise stable. No leukocytosis. Renal function baseline, lytes normal except for K 3.0, likely due to albuterol use. CXR negative. In ED, given 125mg IV methylprednisolone, duonebs, 2g IV mag, and 60meq kcl. Review of Systems 2 Review of Systems: General: No fevers, malaise, unintentional weight loss HEENT: No blurred vision, diplopia. No sore throat, nasal congestion, rhinorrhea, sinus pain, ear pain Cardiovascular: No chest pain, palpitations, or leg edema Respiratory: +sob, +cough. No wheezing GI: No abdominal pain, nausea, vomiting, diarrhea : No dysuria, hematuria, increased urinary frequency MSK: No myalgia, back pain Neuro: No headaches, weakness, paresthesias Skin: No rashes or lesions [facility]LY [facility] Medical History Asthma with exacerbation Smoking Restrictive airway disease MARY (obstructive sleep apnea) COPD (chronic obstructive pulmonary disease) MARY on CPAP Reactive airways dysfunction syndrome Rheumatoid arthritis Fibromyalgia GERD (gastroesophageal reflux disease) MARY (obstructive sleep apnea) Aortic valve endocarditis COPD (chronic obstructive pulmonary disease) COPD exacerbation Overactive bladder Bronchitis Allergic rhinitis COPD (chronic obstructive pulmonary disease) Asthma Hx of cardiac pacemaker Hx of migraines Hx of coronary artery disease History of urinary incontinence Hx of essential hypertension History of depression Hx of drug abuse Hx of hyperlipidemia Hx of allergic rhinitis History of enuresis Hx of osteoarthritis Hx of pilonidal cyst Family history of GERD History of arthritis Hx of diabetes mellitus Surgical History History of surgical removal of pilonidal cyst Hx of bilateral cataract extraction Hx of colonoscopy History of cystoscopy History of hysterectomy Hx of aortic valve replacement Hx laparoscopic cholecystectomy History of epidermal inclusion cyst excision Social History Household Members: Family Household Members Other:: self Housing: Apartment Do you presently have visiting nurse or other home services: Yes (Home health aide) Alcohol intake: former Patient Tobacco Use Status: Former Tobacco user Tobacco use type: Cigarette Cigarettes Per Day: 3 e-Cigarette/Vaping Use: Currently Using Second Hand Smoke Exposure: Yes Advance Directives: Yes Advance Directives on File: Yes Advance Directives Date on File: 11/08/21 service: No Current occupational status: unemployed and disabled Meds Allergies Allergy/AdvReac Type Severity Reaction Status Date / Time latex [LATEX] Allergy Severe DIFFICULTY Verified 03/12/23 10:21 BREATHING aspirin [Aspirin] Allergy Intermediate ITCHING, Verified 03/12/23 10:21 itchiness ciprofloxacin [From CIPRO] Allergy Intermediate DIAPHORESIS Verified 03/12/23 10:21 /PURITIS Penicillins [PENICILLINS] Allergy Unknown UNKNOWN Verified 03/12/23 10:21 HEMALATHA Inhibitors AdvReac Intermediate COUGH Verified 03/12/23 10:21 [HEMALATHA INHIBITORS] Active Medications: Current Medications Magnesium Sulfate (Magnesium Sulfate/H2o) 2 gm in 50 mls @ 25 mls/hr IV ONCE ONE Stop: 03/14/23 13:27 Last Admin: 03/14/23 11:37 Dose: 25 mls/hr Home Medications Medication Instructions Recorded Confirmed Last Taken Type amitriptyline 25 mg tablet 25 mg PO BEDTIME 07/03/22 03/14/23 11/27/22 History bisacodyl 5 mg tablet,delayed 10 mg PO BEDTIME 07/03/22 03/14/23 11/27/22 History release calcium carbonate 600 mg-vitamin 1 tab PO DAILY 07/03/22 03/14/23 11/28/22 History D3 10 mcg (400 unit) tablet clopidogrel 75 mg tablet 75 mg PO DAILY 07/03/22 03/14/23 11/28/22 History cyanocobalamin (vitamin B-12) 1,000 mcg PO DAILY 07/03/22 03/14/23 11/28/22 History 1,000 mcg tablet folic acid 1 mg tablet 1 mg PO DAILY 07/03/22 03/14/23 11/28/22 History gabapentin 100 mg capsule 100 mg PO TID 07/03/22 03/14/23 11/28/22 History hydrochlorothiazide 12.5 mg tablet 12.5 mg PO DAILY 07/03/22 03/14/23 11/28/22 History montelukast 10 mg tablet 10 mg PO BEDTIME 07/03/22 03/14/23 11/27/22 History sertraline 50 mg tablet 50 mg PO DAILY 07/03/22 03/14/23 11/28/22 History albuterol sulfate 2.5 mg/3 mL 2.5 mg inhalation Q4-6H PRN 11/28/22 03/14/23 Unknown History (0.083 %) solution for nebulization wheezing melatonin 5 mg tablet 5 mg PO BEDTIME PRN insomnia 03/14/23 03/14/23 Unknown History tiotropium bromide 18 mcg capsule 1 cap inhalation DAILY 03/14/23 03/14/23 Unknown History with inhalation device (Spiriva with HandiHaler) Physical Exam 2 Vital Signs and Narrative: Vital Signs: Last Vital Signs Pulse 63 03/14/23 12:20 Resp 14 03/14/23 12:20 BP 136/73 03/14/23 12:20 Pulse Ox 95 03/14/23 12:20 O2 Del Method Room Air 03/14/23 12:20 BMI result Body Mass Index 25.3 Constitutional - Awake and Alert, No apparent distress Eyes - PERRLA, EOMI Cardiovascular - S1S2, RRR, No edema Respiratory - Normal lung expansion, increased wob with accessory muscle usage in the abd, diffusely coarse lung sounds with expiratory wheezing Gastrointestinal - NT / ND; +BS; No rebound or guarding Extremities - no calf tenderness bilaterally, no swelling Skin - Warm/Dry Neurological - Alert & oriented x3 Psychological - Appropriate affect Results Labs 03/14/23 09:51 03/14/23 09:51 Labs: Laboratory Results - last 24 hr 03/14/23 03/14/23 07:45 09:51 MCV 85.3 MCH 27.9 MCHC 32.7 RDW 14.5 Plt Count 422 H MPV 9.4 Immature Gran % (Auto) 0.4 Neut % (Auto) 65.6 Lymph % (Auto) 17.1 L [place] % (Auto) 10.3 Eos % (Auto) 6.2 H Baso % (Auto) 0.4 Lymph # (Auto) 1.4 [place] # (Auto) 0.8 Eos # (Auto) 0.5 H Baso # (Auto) 0.0 Abs Immat Gran (auto) 0.03 Absolute Neuts (auto) 5.4 Absolute Nucleated RBC 0.000 Nucleated RBC % (auto) 0.0 Anion Gap 11 L Estim Creat Clear Calc 71.8 Estimated GFR > 60 Random Glucose 134 H Calcium 10.0 Magnesium 1.7 Total Bilirubin 0.3 AST 15 ALT 8 Alkaline Phosphatase 73 B-Natriuretic Peptide 120 H Total Protein 7.1 Albumin 3.6 COVID-19 (HOLLIS) Negative COVID-19 Clin Com See Note Influenza Type A (GHADA) Negative Influenza Type B (GHADA) Negative Influenza A & B Note See Note Imaging Radiologist's Impressions: Impressions Chest X-Ray 03/14/23 09:58 IMPRESSION: Unremarkable chest examination. No change from previous exam 02/16/2023. Assessment and Plan (1) Asthma with exacerbation: Status: Acute Plan 61-year-old female with history of asthma/COPD overlap, current everyday smoker, GERD, history TAVR procedure following endocarditis on Plavix (hx IVDA), diabetes, hypertension, hyperlipidemia, MARY noncompliant with CPAP, overactive bladder, and rheumatoid arthritis to be observed for acute asthma exacerbation. #Asthma/COPD with acute exacerbation with acute respiratory distress -no hypoxia. negative for covid, flu, rsv -check viral resp panel -40mg IV methylprednisolone BID -duonebs q4h while awake -albuterol prn -cxr negative. no productive cough. abx not indicated at this time -continue maintenance inhalers #Acute hypokalemia -due to albuterol use -repleted -follow lytes #non insulin dependent type 2 diabetes- without hyperglycemia -poc glucose, diabetic diet -humalog on sliding scale #Essential hypertension -continue hydrochlorothiazide #Mood disorder -Continue home mood stabilizers #MARY -CPAP at bedtime #Tobacco use disorder -counseled regarding cessation. continue nicorette gum prn DVT prophylaxis: Lovenox Full code Quality Stroke Does the patient have a stroke diagnosis?: No VTE Prior VTE?: No VTE Risk Level:: Medical - moderate - high VTE Device Contraindication: Treatment Not Indicated VTE Drug Contraindication: N/A - Med Ordered
--- NOTE | 2023-03-14 12:48 | PHA.MEDREC ---
Pharmacy Consult ? Medication Reconciliation Pharmacy has completed the medication reconciliation. patient brought in medbox list from home, confirmed the rest through an certified court interpreter and claim history.
[2023-03-14] MEDS: guaiFEN/Codeine SF 200/20/10ML 10 ML LIQUID 5 ML PO ×3 (13:01→19:59)
[2023-03-14] MEDS: Enoxaparin Sodium 40 MG/0.4 ML SYRINGE SUBCUT (13:01)
[2023-03-14] MEDS: Morphine Sulfate 2 MG/ML CARTRIDGE IVPUSH (13:01)
--- NOTE | 2023-03-14 13:06 | PC.NURSE ---
pt medicated per apr. resting quietly on stretcher, on bedside monitor, sating 96% on room air. rr even/unlabored. call basilio within pt reach. plan of care ongoing.
[2023-03-14] MEDS: Gabapentin 100 MG CAPSULE PO ×2 (14:15→19:59)
--- NOTE | 2023-03-14 14:49 | PC.NURSE ---
inpatient report complete.
[2023-03-14 14:52] LABS: Anion Gap 13 (12-20); Blood Urea Nitrogen 8 mg/dL (9-16); Calcium 9.9 mg/dL (8.4-10.2); Carbon Dioxide 30 mmol/L (22-29); Chloride 100 mmol/L (96-108); Creatinine Clr Calc Pharmacy 69.6; Estimated Glomerular Filt Rate > 60; Glucose Random 154 mg/dL (60-115); Sodium 139 mmol/L (135-145)
[2023-03-14 15:03] LABS: Troponin-I High Sensitivity 16.1 ng/L (<3.5-17.0)
[2023-03-14] MEDS: Albuterol/Iprat 2.5/0.5MG 3 ML AMPUL.NEB INHALE ×2 (15:07→18:57)
--- NOTE | 2023-03-14 15:36 | PC.NURSE ---
pt en route to room.
[2023-03-14 15:37] LABS: Adenovirus PCR Not Detected (Not Detect.); Bordetella parapertussis PCR Not Detected (Not Detect.); Bordetella pertussis PCR Not Detected (Not Detect.); Chlamydia pneumoniae PCR Not Detected (Not Detect.); Coronavirus 229E PCR Not Detected (Not Detect.); Coronavirus HKU1 PCR Not Detected (Not Detect.); Coronavirus NL63 PCR Not Detected (Not Detect.); Coronavirus OC43 PCR Not Detected (Not Detect.); Human metapneumovirus PCR Not Detected (Not Detect.); Influenza A PCR Not Detected (Not Detect.); Influenza B PCR Not Detected (Not Detect.); Mycoplasma pneumoniae PCR Not Detected (Not Detect.); Parainfluenza 1 PCR Not Detected (Not Detect.); Parainfluenza 2 PCR Not Detected (Not Detect.); Parainfluenza 3 PCR Not Detected (Not Detect.); Parainfluenza 4 PCR Not Detected (Not Detect.); RSV PCR Not Detected (Not Detect.); Rhino/Enterovirus PCR Not Detected (Not Detect.)
[2023-03-14 16:00] LABS: SARS-CoV-2 PCR Not Detected (Not Detect.)
[2023-03-14 16:12] LABS: Glucose, Whole Blood 169 mg/dL (60-115)
[2023-03-14] MEDS: 0.9 % Sodium Chloride Flush 3 ML SYRINGE IVFLUSH ×2 (16:17→21:21)
[2023-03-14] MEDS: Insulin Lispro 100 UNIT/ML 3 ML VIAL SUBCUT (16:22)
[2023-03-14] MEDS: Montelukast Sodium 10 MG TABLET PO (19:59)
[2023-03-14] MEDS: Amitriptyline HCl 25 MG TABLET PO (19:59)
[2023-03-14] MEDS: Melatonin 3 MG TABLET 6 MG PO (19:59)
[2023-03-14] MEDS: bisacodyL 5 MG TABLET.DR 10 MG PO (19:59)
[2023-03-14 21:06] LABS: Glucose, Whole Blood 143 mg/dL (60-115)
[2023-03-14] MEDS: methylPREDNISolone Sod Succ 40 MG/ML VIAL IVPUSH (21:21)
[2023-03-15] VITALS (9 sets, daily range): BP systolic 112–146; BP diastolic 59–76; PULSE 60–84; RESP 16–20; TEMP 36.1–36.6; O2SAT 91–100
--- NOTE | 2023-03-15 07:00 | CA_ITS ---
Transthoracic Echocardiogram Patient (Last, First, Middle): Ting Keith, Gender: Female Date of : 1960 Age: 62 Procedure Date: 03/15/2023 Procedure Type: Transthoracic Echocardiogram Location: S3E Height: 149.86 cm Weight: 56.7 kg BSA: 1.51 m2 Heart Rate: 70 bpm BP: 120 / 76 mmHg Talent Acquisition Lead: JERRY Referring MD: Mayra PRINCE Symptoms: mod- severe aortic stenosis, sob Study Quality: Adequate/w Contrast ECG Rhythm: Ventriculary paced rhythm Conclusions: - The left ventricular systolic function is normal. The visually estimated ejection fraction is between 60-65%. - There is severe aortic valve stenosis. Gradients are in the severe range. Suspect larger than expected valve area is erroneous due to high LVOT VTI measurement. Findings Procedure Information Contrast agent, definity, is being given per protocol without apparent complications. Left Ventricle Normal left ventricular cavity size. There is normal left ventricular wall thickness. The left ventricular systolic function is normal. The visually estimated ejection fraction is between 60-65%. There is no evidence of regional wall motion abnormalities. Diastolic function is indeterminate on the basis of available data. Right Ventricle Normal right ventricular cavity size. There is low normal right ventricular systolic function. There is a pacemaker wire seen in the right ventricle. Atria The left atrium is moderately dilated. The right atrium is normal in size. Aortic Valve There is moderate calcification of the aortic valve. There is severe aortic valve stenosis. The peak aortic velocity is 4.57 m/s with a calculated peak gradient of 83 mmHg. The mean gradient is 42 mmHg. There is mild aortic valve regurgitation. Mitral Valve The mitral valve appears normal. There is mild mitral valve regurgitation. There is no mitral valve stenosis. Pulmonic Valve The pulmonic valve is likely normal. Tricuspid Valve There is trace tricuspid valve regurgitation. There is no evidence of pulmonary hypertension. Great Vessels The asc aorta is normal in size. Venous The inferior vena cava is dilated and collapses greater than 50% with inspiration. Pericardium/Pleural There is no evidence of pericardial effusion. Prior Study Comparison Changes noted compared to prior study dated: 10/23/2022. Progression of aortic valve stenosis. Measurements 2D Linear Measurements IVSd: 1.01 0.6-0.9/0.6-1.0 cm LVIDd: 4.42 3.9-5.3/4.2-5.9 cm LVIDd Index: 2.93 2.4-3.2/2.2-3.1 cm/m2 LVIDs: 2.44 2.0-3.6 cm LVPWd: 1.05 0.7-1.1 cm LA Diam: 4.10 2.7-3.8/3.0-4.0 cm LAIDs Index: 2.72 1.5-2.3 cm/m2 LV Mass: 193.18 67-162/88-224 g LV Mass Index: 127.93 43-95/49-115 g/m2 LVOT Diam: 1.80 3.0+(-)1.3 cm 2D Systolic Function EF 4C: 65.90 >55% EF 2C: 53.60 >55% EF BiP: 57.70 >55% Mitral Valve MV Pk E: 1.19 MV Decel Time: 215.00 E'Lateral: 9.36 E'Medial: 5.98 E/E' Med: 19.90 E/E' Lat: 12.70 PHT: 63.00 MVA PHT: 3.49 Decel [place]: 5.53 Aortic Valve AoV Pk [place]: 4.57 AoV Mn [place]: 2.98 AoV VTI: 0.82 AoV Pk Grad: 83.00 Aov Mn Grad: 42.00 CHARLY Cont.VTI: 1.12 AI Pk [place]: 4.07 AI [place]: 2.24 LVOT LVOT Pk [place]: 1.81 LVOT Mn [place]ver: 1.24 LVOT VTI: 0.36 LVOT Pk Grad: 13.00 LVOT Mn Grad: 7.00 LVOT Diam: 1.80 LVOT Area: 2.54 Diastolic Function MV Pk E: 1.19 E'Medial: 5.98 E/E' Med: 19.90 E' Laterial: 9.36 E/E' Lat: 12.70 Right Ventricle TAPSE (mm): 14.60 TVS' Trever: 10.30 Tricuspid Valve TR Pk Trever: 1.94 TR Pk Grad: 15.00 RA Press: 8.00 RVSP: 23.00 Great Vessels Aorta Sinus of Valsalva: 2.80 2.0-3.5 cm Ao Asc: 2.80 2.1-3.4 cm Pulmonary Valve PV Pk Trever: 1.49 Peak PV Grad: 9.00 Updated in Other Vendor System with Status of Final Murphy Abbott MD electronically signed on 03/15/2023 11:02:14 AM with status of Final
[2023-03-15] MEDS: Albuterol/Iprat 2.5/0.5MG 3 ML AMPUL.NEB INHALE ×3 (07:50→15:23)
[2023-03-15 07:56] LABS: Alanine Aminotransferase 8 U/L (0-31); Albumin Level 3.4 g/dL (3.5-5.0); Alkaline Phosphatase 62 U/L (39-117); Anion Gap 14 (12-20); Aspartate Amino Transferase 17 U/L (5-31); Bilirubin Total 0.2 mg/dL (0.0-1.0); Blood Urea Nitrogen 12 mg/dL (9-16); Calcium 9.9 mg/dL (8.4-10.2); Carbon Dioxide 28 mmol/L (22-29); Chloride 104 mmol/L (96-108); Estimated Glomerular Filt Rate > 60; Glucose Random 129 mg/dL (60-115); Potassium 4.6 mmol/L (3.3-5.1); Sodium 141 mmol/L (135-145); Total Protein 6.7 g/dL (6.5-8.0)
[2023-03-15 07:58] LABS: Glucose, Whole Blood 124 mg/dL (60-115)
[2023-03-15] MEDS: Tiotropium Bromide 2.5 mcg 1 PUFF/2.5 MCG MIST.INHAL 2 PUFF INHALE (08:24)
[2023-03-15] MEDS: hydroCHLOROthiazide 12.5 MG TABLET PO (08:30)
[2023-03-15] MEDS: Clopidogrel Bisulfate 75 MG TABLET PO (08:30)
[2023-03-15] MEDS: methylPREDNISolone Sod Succ 40 MG/ML VIAL IVPUSH (08:30)
[2023-03-15] MEDS: Folic Acid 1 MG TABLET PO (08:30)
[2023-03-15] MEDS: Gabapentin 100 MG CAPSULE PO ×2 (08:30→16:48)
[2023-03-15] MEDS: Calcium + Vitamin D 250 MG TABLET 500 MG PO (08:30)
[2023-03-15] MEDS: Cyanocobalamin (Vitamin B-12) 1,000 MCG TABLET 1000 MCG PO (08:30)
[2023-03-15] MEDS: 0.9 % Sodium Chloride Flush 3 ML SYRINGE IVFLUSH ×2 (08:30→16:48)
[2023-03-15] MEDS: Sertraline HCL 50 MG TABLET PO (08:30)
[2023-03-15] MEDS: guaiFEN/Codeine SF 200/20/10ML 10 ML LIQUID 5 ML PO ×3 (08:30→16:48)
--- NOTE | 2023-03-15 09:19 | P.PNIM_ITS ---
Subjective Subjective Date of Service: 03/15/23 Interval History: seen in follow up for asthma exacerbation, sob interval history still sob but improved. no cp. afebrile. no overnight events Review of Systems Review of Systems: Yes all other systems are reviewed and are negative Physical Exam 2 Vital Signs: Vital Signs: Last Vital Signs Temp 97.7 F 03/15/23 08:00 Pulse 82 03/15/23 08:27 Resp 20 03/15/23 08:27 BP 120/76 03/15/23 08:00 Pulse Ox 92 03/15/23 08:00 O2 Del Method Room Air 03/15/23 08:00 BMI result Body Mass Index 25.3 Constitutional - Awake and Alert, No apparent distress Eyes - PERRLA, EOMI Cardiovascular - S1S2, IV/ systolic ejection murmur, No edema Respiratory - Normal lung expansion, Normal respiratory effort, No respiratory distress, diminished lung sounds expiratory wheezing bilaterally Gastrointestinal - NT / ND; +BS; No rebound or guarding Extremities - no calf tenderness bilaterally, no swelling Skin - Warm/Dry Neurological - Alert & oriented x3, CN II-XII in tact, 5/5 strength BUE and BLE Psychological - Appropriate affect Objective Data Active Medications Acetaminophen (Acetaminophen 325 Mg Tablet) 650 mg PO Q6H PRN PRN Reason: Pain, Mild (Pain Scale 1-3) Albuterol Sulfate (Albuterol Sulfate (0.083%) 2.5 Mg/3 Ml Vial.Neb) 2.5 mg INHALE Q2H PRN PRN Reason: Shortness of Breath/Wheezing Albuterol/Ipratropium (Albuterol/Iprat 2.5/0.5mg 3 Ml Ampul.Neb) 3 ml INHALE RQ4H WHILE AWAKE [facility] Last Admin: 03/15/23 07:50 Dose: 3 ml Documented By: CHARLOTTE Amitriptyline HCl (Amitriptyline Hcl 25 Mg Tablet) 25 mg PO BEDTIME [facility] Last Admin: 03/14/23 19:59 Dose: 25 mg Documented By: RIN Bisacodyl (Bisacodyl 5 Mg Tablet.) 10 mg PO BEDTIME [facility] Last Admin: 03/14/23 19:59 Dose: 10 mg Documented By: RIN Calcium Carbonate/Cholecalciferol (Calcium + Vitamin D 250 Mg Tablet) 500 mg PO DAILY [facility] Last Admin: 03/15/23 08:30 Dose: 500 mg Documented By: BOB Clopidogrel Bisulfate (Clopidogrel Bisulfate 75 Mg Tablet) 75 mg PO DAILY [facility] Last Admin: 03/15/23 08:30 Dose: 75 mg Documented By: BOB Cyanocobalamin (Cyanocobalamin (Vitamin B-12) 1,000 Mcg Tablet) 1,000 mcg PO DAILY [facility] Last Admin: 03/15/23 08:30 Dose: 1,000 mcg Documented By: BOB Dextrose (Dextrose 50 % 25 Gm/50 Ml Syringe) 25 gm IVPUSH Q15M PRN; Protocol PRN Reason: per Hypoglycemia Standing Ord. Enoxaparin Sodium (Enoxaparin Sodium 40 Mg/0.4 Ml Syringe) 40 mg SUBCUT Q24H [facility] Last Admin: 03/14/23 13:01 Dose: 40 mg Documented By: JAYDEN Folic Acid (Folic Acid 1 Mg Tablet) 1 mg PO DAILY [facility] Last Admin: 03/15/23 08:30 Dose: 1 mg Documented By: BOB Gabapentin (Gabapentin 100 Mg Capsule) 100 mg PO TID [facility] Last Admin: 03/15/23 08:30 Dose: 100 mg Documented By: BOB Glucose (Glucose Gel 15 Gm Gel..Gram.) 15 gm PO Q15M PRN; Protocol PRN Reason: per Hypoglycemia Standing Ord. Guaifenesin/Codeine Phosphate (Guaifen/Codeine Sf 200/20/10ml 10 Ml Liquid) 5 ml PO Q4H [facility] Last Admin: 03/15/23 08:30 Dose: 5 ml Documented By: BOB Hydrochlorothiazide (Hydrochlorothiazide 12.5 Mg Tablet) 12.5 mg PO DAILY [facility]; Protocol Last Admin: 03/15/23 08:30 Dose: 12.5 mg Documented By: BOB Insulin Human Lispro (Insulin Lispro 100 Unit/Ml 3 Ml Vial) 0 unit SUBCUT QIDACHS [facility]; Protocol Last Admin: 03/15/23 08:05 Dose: Not Given Documented By: BOB Non-Admin Reason: No Insulin Coverage Melatonin (Melatonin 3 Mg Tablet) 6 mg PO BEDTIME PRN PRN Reason: insomnia Last Admin: 01/17/24 19:59 Dose: 6 mg Documented By: RIN Methylprednisolone Sodium Succinate (Methylprednisolone Sod Succ 40 Mg/Ml Vial) 40 mg IVPUSH Q12H [facility] Last Admin: 03/15/23 08:30 Dose: 40 mg Documented By: BOB Montelukast Sodium (Montelukast Sodium 10 Mg Tablet) 10 mg PO BEDTIME [facility] Last Admin: 03/14/23 19:59 Dose: 10 mg Documented By: RIN Nicotine Polacrilex (Nicotine Polacrilex 2 Mg Gum) 2 mg BUCCAL Q2H PRN PRN Reason: Nicotine Cravings Ondansetron HCl (Ondansetron Hcl 4 Mg/2 Ml Vial) 4 mg IVPUSH Q8H PRN PRN Reason: Nausea and Vomiting Senna (Sennosides 8.6 Mg Tablet) 17.2 mg PO BEDTIME PRN PRN Reason: Constipation Sertraline HCl (Sertraline Hcl 50 Mg Tablet) 50 mg PO DAILY [facility] Last Admin: 03/15/23 08:30 Dose: 50 mg Documented By: BOB Sodium Chloride (0.9 % Sodium Chloride Flush 3 Ml Syringe) 3 ml IVFLUSH QSHIFT [facility] Last Admin: 03/15/23 08:30 Dose: 3 ml Documented By: BOB Tiotropium [place] (Tiotropium [place] 2.5 Mcg 1 Puff/2.5 Mcg Mist.Inhal) 2 puff INHALE RDAILY [facility] Last Admin: 03/15/23 08:24 Dose: 2 puff Documented By: CHARLOTTE Labs 03/14/23 09:51 03/15/23 07:23 Labs: Laboratory Results - last 24 hr 03/14/23 03/14/23 03/14/23 09:51 14:23 14:24 MCV 85.3 MCH 27.9 MCHC 32.7 RDW 14.5 Plt Count 422 H MPV 9.4 Immature Gran % (Auto) 0.4 Neut % (Auto) 65.6 Lymph % (Auto) 17.1 L [place] % (Auto) 10.3 Eos % (Auto) 6.2 H Baso % (Auto) 0.4 Lymph # (Auto) 1.4 [place] # (Auto) 0.8 Eos # (Auto) 0.5 H Baso # (Auto) 0.0 Abs Immat Gran (auto) 0.03 Absolute Neuts (auto) 5.4 Absolute Nucleated RBC 0.000 Nucleated RBC % (auto) 0.0 Anion Gap 11 L 13 Estim Creat Clear Calc 71.8 69.6 Estimated GFR > 60 > 60 POC Glucose Random Glucose 134 H 154 H Calcium 10.0 9.9 Magnesium 1.7 Total Bilirubin 0.3 AST 15 ALT 8 Alkaline Phosphatase 73 B-Natriuretic Peptide 120 H Total Protein 7.1 Albumin 3.6 Respiratory Panel [place] See Note Adenovirus (Rapid PCR) Not Detected B.pert (TEM-PCR) Not Detected B.parapertussis DNA PCR Not Detected C. pneumoniae DNA (PCR) Not Detected Coronavirus OC43 (PCR) Not Detected Coronavirus HKU1 (PCR) Not Detected Coronavirus 229E (PCR) Not Detected Coronavirus NL63 (PCR) Not Detected Human Metapneumovir PCR Not Detected Influenza A (RT-PCR) Not Detected Influenza B (RT-PCR) Not Detected M. pneumoniae (PCR) Not Detected Parainfluenza 1 (PCR) Not Detected Parainfluenza 2 (PCR) Not Detected Parainfluenza 3 (PCR) Not Detected Parainfluenza 4 (PCR) Not Detected RSV (PCR) Not Detected Entero/Rhino (PCR) Not Detected SARS-CoV-2 RNA (RT-PCR) Not Detected 03/14/23 03/14/23 03/15/23 16:06 20:01 07:23 MCV MCH MCHC RDW Plt Count MPV Immature Gran % (Auto) Neut % (Auto) Lymph % (Auto) [place] % (Auto) Eos % (Auto) Baso % (Auto) Lymph # (Auto) [place] # (Auto) Eos # (Auto) Baso # (Auto) Abs Immat Gran (auto) Absolute Neuts (auto) Absolute Nucleated RBC Nucleated RBC % (auto) Anion Gap 14 Estim Creat Clear Calc 82.0 Estimated GFR > 60 POC Glucose 169 H 143 H Random Glucose 129 H Calcium 9.9 Magnesium Total Bilirubin 0.2 AST 17 ALT 8 Alkaline Phosphatase 62 B-Natriuretic Peptide Total Protein 6.7 Albumin 3.4 L Respiratory Panel [place] Adenovirus (Rapid PCR) B.pert (TEM-PCR) B.parapertussis DNA PCR C. pneumoniae DNA (PCR) Coronavirus OC43 (PCR) Coronavirus HKU1 (PCR) Coronavirus 229E (PCR) Coronavirus NL63 (PCR) Human Metapneumovir PCR Influenza A (RT-PCR) Influenza B (RT-PCR) M. pneumoniae (PCR) Parainfluenza 1 (PCR) Parainfluenza 2 (PCR) Parainfluenza 3 (PCR) Parainfluenza 4 (PCR) RSV (PCR) Entero/Rhino (PCR) SARS-CoV-2 RNA (RT-PCR) 03/15/23 07:33 MCV MCH MCHC RDW Plt Count MPV Immature Gran % (Auto) Neut % (Auto) Lymph % (Auto) [place] % (Auto) Eos % (Auto) Baso % (Auto) Lymph # (Auto) [place] # (Auto) Eos # (Auto) Baso # (Auto) Abs Immat Gran (auto) Absolute Neuts (auto) Absolute Nucleated RBC Nucleated RBC % (auto) Anion Gap Estim Creat Clear Calc Estimated GFR POC Glucose 124 H Random Glucose Calcium Magnesium Total Bilirubin AST ALT Alkaline Phosphatase B-Natriuretic Peptide Total Protein Albumin Respiratory Panel [place] Adenovirus (Rapid PCR) B.pert (TEM-PCR) B.parapertussis DNA PCR C. pneumoniae DNA (PCR) Coronavirus OC43 (PCR) Coronavirus HKU1 (PCR) Coronavirus 229E (PCR) Coronavirus NL63 (PCR) Human Metapneumovir PCR Influenza A (RT-PCR) Influenza B (RT-PCR) M. pneumoniae (PCR) Parainfluenza 1 (PCR) Parainfluenza 2 (PCR) Parainfluenza 3 (PCR) Parainfluenza 4 (PCR) RSV (PCR) Entero/Rhino (PCR) SARS-CoV-2 RNA (RT-PCR) Assessment and Plan (1) Severe aortic stenosis: Status: Acute (2) Asthma with exacerbation: Status: Acute Plan 61-year-old female with history of asthma/COPD overlap, current everyday smoker, GERD, history TAVR procedure following endocarditis on Plavix (hx IVDA), diabetes, hypertension, hyperlipidemia, MARY noncompliant with CPAP, overactive bladder, and rheumatoid arthritis to be observed for acute asthma exacerbation. #Asthma/COPD with acute exacerbation with acute respiratory distress- improved but lungs still diminished b/l -no hypoxia. negative for covid, flu, rsv -viral resp panel negative -40mg IV methylprednisolone BID -duonebs q4h while awake -albuterol prn -cxr negative. no productive cough. abx not indicated at this time -continue maintenance inhalers #Acute hypokalemia- resolved -due to albuterol use -repleted -follow lytes #Severe aortic stenosis -?contributing to symptoms -repeat echo shows normal LV systolic function with EF 60-65% with severe valve stenosis, gradients in severe range. Larger than expected valve area likely erroneous d/t lvot vti measurement -Cards discussed case with [facility] device clinic/Dr Sexton in cardiology recommending outpt follow up #non insulin dependent type 2 diabetes- without hyperglycemia -poc glucose, diabetic diet -humalog on sliding scale #Essential hypertension -continue hydrochlorothiazide #Mood disorder -Continue home mood stabilizers #MARY -CPAP at bedtime #Tobacco use disorder -counseled regarding cessation. continue nicorette gum prn #hx of complete heart block -s/p pacemaker DVT prophylaxis: Lovenox Full code Pt will require inpt stay at least two midnights for ongoing treatment of asthma/copd exacerbation with ongoing diminished lung sounds and expiratory wheezing requireing ongoing tx with iv steroids and scheduled nebs Quality Stroke Does the patient have a stroke diagnosis?: No VTE Prior VTE?: No VTE Risk Level:: Medical - moderate - high VTE Device Contraindication: Treatment Not Indicated VTE Drug Contraindication: N/A - Med Ordered
--- NOTE | 2023-03-15 09:23 | MHC.CM.PN ---
ANALIA DELIVERED PT LIVES WITH FAMILY. USES A WALKER AT [facility] WHEN OUTSIDE. HAS A [employer]ECT BUT UNSURE OF HOW MANY HOURS. +HCP ON FILE PCP DR. ABBASI AT [facility]. DP: HOME, RESUME [employer] SERVICES. PT WILL NEED A SHUTTLE RIDE HOME. CM WILL CONTINUE TO FOLLOW FOR ANY CHANGE IN DC PLAN/NEEDS.
--- NOTE | 2023-03-15 11:06 | PM.CNCAR ---
History of Present Illness History of Present Illness Date of Service: 03/15/23 Chief complaint: Asthma exacerbation Narrative: This is a cardiology consultation regarding question of aortic stenosis. Available records from [facility] were reviewed. 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 At that time, underwent aortic valve replacement with a homograft. Subsequently, she had a pacemaker for complete heart block. Current admission is mainly for shortness of breath. However, she currently states that she has not having any active bleeding issues. Thought to be acute exacerbation of COPD/asthma. In this setting, this also concern if aortic stenosis is playing a role. Hence we are consulted. Patient is not having any active cardiac symptoms at this time. She states that she is set up for a generator change tomorrow at [facility]. Review of Systems Review of Systems: Yes all other systems are reviewed and are negative Constitutional: Constitutional: Reports as per HPI and Reports no additional constitutional complaints Eyes: Eyes: Reports as per HPI and Denies no additional eye complaints ENT: Denies system reviewed and no additional complaints, except as documented and Reports as per HPI Cardiovascular: Cardiovascular: Reports as per HPI, Reports no additional cardiovascular complaints, Denies acrocyanosis, Denies cool extremities, Denies chest pain, Denies leg edema, Denies lightheadedness, Denies palpitations and Denies dyspnea Respiratory: Respiratory: Reports as per HPI, Denies no additional respiratory complaints and Denies dyspnea Gastrointestinal: Gastrointestinal: Reports as per HPI and Denies no additional gastrointestinal complaints Genitourinary: Genitourinary: Reports as per HPI Musculoskeletal: Musculoskeletal: Reports no additional musculoskeletal complaints and Reports as per HPI Integumentary/Breasts: Skin/Breast: Reports system reviewed and no additional complaints, except as docu Neurologic: Reports system reviewed and no additional complaints, except as documented and Reports as per HPI Psychiatric: Psychiatric: Reports no additional psychiatric complaints and Reports as per HPI Endocrine: Endocrine: Reports no additional endocrine complaints, Reports as per HPI and Denies palpitations Hematologic/Lymphatic: Hematologic/Lymphatic: Reports no additional hematologic/lymphatic complaints and Reports as per HPI Allergic/Immunologic: Allergic/Immunologic: Reports no additional allergic/immunologic complaints and Reports as per HPI [facility] Past Medical History Medical History Asthma with exacerbation Smoking Restrictive airway disease MARY (obstructive sleep apnea) COPD (chronic obstructive pulmonary disease) MARY on CPAP Reactive airways dysfunction syndrome Rheumatoid arthritis Fibromyalgia GERD (gastroesophageal reflux disease) MARY (obstructive sleep apnea) Aortic valve endocarditis COPD (chronic obstructive pulmonary disease) COPD exacerbation Overactive bladder Bronchitis Allergic rhinitis COPD (chronic obstructive pulmonary disease) Asthma Hx of cardiac pacemaker Hx of migraines Hx of coronary artery disease History of urinary incontinence Hx of essential hypertension History of depression Hx of drug abuse Hx of hyperlipidemia Hx of allergic rhinitis History of enuresis Hx of osteoarthritis Hx of pilonidal cyst Family history of GERD History of arthritis Hx of diabetes mellitus Family History Pertinent family history: No pertinent history. Surgical History Surgical History History of surgical removal of pilonidal cyst Hx of bilateral cataract extraction Hx of colonoscopy History of cystoscopy History of hysterectomy Hx of aortic valve replacement Hx laparoscopic cholecystectomy History of epidermal inclusion cyst excision Social History Social History Household Members: Family Household Members Other:: self Housing: Apartment Do you presently have visiting nurse or other home services: Yes (Home health aide) Alcohol intake: former Comment: refusing alarms Patient Tobacco Use Status: Former Tobacco user Tobacco use type: Cigarette Cigarettes Per Day: 3 e-Cigarette/Vaping Use: Currently Using Second Hand Smoke Exposure: Yes Currently Displaying Signs/Symptoms of Drug Intoxication Withdrawal: No Advance Directives: Yes Advance Directives Information Provided: Yes Advance Directives on File: Yes Advance Directives Date on File: 11/08/21 service: No Current occupational status: unemployed and disabled Meds Allergies Allergy/AdvReac Type Severity Reaction Status Date / Time latex [LATEX] Allergy Severe DIFFICULTY Verified 03/12/23 10:21 BREATHING aspirin [Aspirin] Allergy Intermediate ITCHING, Verified 03/12/23 10:21 itchiness ciprofloxacin [From CIPRO] Allergy Intermediate DIAPHORESIS Verified 03/12/23 10:21 /PURITIS Penicillins [PENICILLINS] Allergy Unknown UNKNOWN Verified 03/12/23 10:21 HEMALATHA Inhibitors AdvReac Intermediate COUGH Verified 03/12/23 10:21 [HEMALATHA INHIBITORS] Active Medications: Current Medications Acetaminophen (Acetaminophen 325 Mg Tablet) 650 mg PO Q6H PRN PRN Reason: Pain, Mild (Pain Scale 1-3) Albuterol Sulfate (Albuterol Sulfate (0.083%) 2.5 Mg/3 Ml Vial.Neb) 2.5 mg INHALE Q2H PRN PRN Reason: Shortness of Breath/Wheezing Albuterol/Ipratropium (Albuterol/Iprat 2.5/0.5mg 3 Ml Ampul.Neb) 3 ml INHALE RQ4H WHILE AWAKE [facility] Last Admin: 03/15/23 07:50 Dose: 3 ml Amitriptyline HCl (Amitriptyline Hcl 25 Mg Tablet) 25 mg PO BEDTIME [facility] Last Admin: 03/14/23 19:59 Dose: 25 mg Bisacodyl (Bisacodyl 5 Mg Tablet.Dr) 10 mg PO BEDTIME [facility] Last Admin: 03/14/23 19:59 Dose: 10 mg Calcium Carbonate/Cholecalciferol (Calcium + Vitamin D 250 Mg Tablet) 500 mg PO DAILY [facility] Last Admin: 03/15/23 08:30 Dose: 500 mg Clopidogrel Bisulfate (Clopidogrel Bisulfate 75 Mg Tablet) 75 mg PO DAILY [facility] Last Admin: 03/15/23 08:30 Dose: 75 mg Cyanocobalamin (Cyanocobalamin (Vitamin B-12) 1,000 Mcg Tablet) 1,000 mcg PO DAILY [facility] Last Admin: 03/15/23 08:30 Dose: 1,000 mcg Dextrose (Dextrose 50 % 25 Gm/50 Ml Syringe) 25 gm IVPUSH Q15M PRN; Protocol PRN Reason: per Hypoglycemia Standing Ord. Enoxaparin Sodium (Enoxaparin Sodium 40 Mg/0.4 Ml Syringe) 40 mg SUBCUT Q24H [facility] Last Admin: 03/14/23 13:01 Dose: 40 mg Folic Acid (Folic Acid 1 Mg Tablet) 1 mg PO DAILY [facility] Last Admin: 03/15/23 08:30 Dose: 1 mg Gabapentin (Gabapentin 100 Mg Capsule) 100 mg PO TID [facility] Last Admin: 03/15/23 08:30 Dose: 100 mg Glucose (Glucose Gel 15 Gm Gel..Gram.) 15 gm PO Q15M PRN; Protocol PRN Reason: per Hypoglycemia Standing Ord. Guaifenesin/Codeine Phosphate (Guaifen/Codeine Sf 200/20/10ml 10 Ml Liquid) 5 ml PO Q4H [facility] Last Admin: 03/15/23 08:30 Dose: 5 ml Hydrochlorothiazide (Hydrochlorothiazide 12.5 Mg Tablet) 12.5 mg PO DAILY [facility]; Protocol Last Admin: 03/15/23 08:30 Dose: 12.5 mg Insulin Human Lispro (Insulin Lispro 100 Unit/Ml 3 Ml Vial) 0 unit SUBCUT QIDACHS [facility]; Protocol Last Admin: 03/15/23 08:05 Dose: Not Given Melatonin (Melatonin 3 Mg Tablet) 6 mg PO BEDTIME PRN PRN Reason: insomnia Last Admin: 03/14/23 19:59 Dose: 6 mg Methylprednisolone Sodium Succinate (Methylprednisolone Sod Succ 40 Mg/Ml Vial) 40 mg IVPUSH Q12H [facility] Last Admin: 03/15/23 08:30 Dose: 40 mg Montelukast Sodium (Montelukast Sodium 10 Mg Tablet) 10 mg PO BEDTIME [facility] Last Admin: 03/14/23 19:59 Dose: 10 mg Nicotine Polacrilex (Nicotine Polacrilex 2 Mg Gum) 2 mg BUCCAL Q2H PRN PRN Reason: Nicotine Cravings Ondansetron HCl (Ondansetron Hcl 4 Mg/2 Ml Vial) 4 mg IVPUSH Q8H PRN PRN Reason: Nausea and Vomiting Senna (Sennosides 8.6 Mg Tablet) 17.2 mg PO BEDTIME PRN PRN Reason: Constipation Sertraline HCl (Sertraline Hcl 50 Mg Tablet) 50 mg PO DAILY [facility] Last Admin: 03/15/23 08:30 Dose: 50 mg Sodium Chloride (0.9 % Sodium Chloride Flush 3 Ml Syringe) 3 ml IVFLUSH QSHIFT [facility] Last Admin: 03/15/23 08:30 Dose: 3 ml Tiotropium Calhoun (Tiotropium Calhoun 2.5 Mcg 1 Puff/2.5 Mcg Mist.Inhal) 2 puff INHALE RDAILY [facility] Last Admin: 03/15/23 08:24 Dose: 2 puff Home Medications Medication Instructions Recorded Confirmed Last Taken Type amitriptyline 25 mg tablet 25 mg PO BEDTIME 07/03/22 03/14/23 11/27/22 History bisacodyl 5 mg tablet,delayed 10 mg PO BEDTIME 07/03/22 03/14/23 11/27/22 History release calcium carbonate 600 mg-vitamin 1 tab PO DAILY 07/03/22 03/14/23 11/28/22 History D3 10 mcg (400 unit) tablet clopidogrel 75 mg tablet 75 mg PO DAILY 07/03/22 03/14/23 11/28/22 History cyanocobalamin (vitamin B-12) 1,000 mcg PO DAILY 07/03/22 03/14/23 11/28/22 History 1,000 mcg tablet folic acid 1 mg tablet 1 mg PO DAILY 07/03/22 03/14/23 11/28/22 History gabapentin 100 mg capsule 100 mg PO TID 07/03/22 03/14/23 11/28/22 History hydrochlorothiazide 12.5 mg tablet 12.5 mg PO DAILY 07/03/22 03/14/23 11/28/22 History montelukast 10 mg tablet 10 mg PO BEDTIME 07/03/22 03/14/23 11/27/22 History sertraline 50 mg tablet 50 mg PO DAILY 07/03/22 03/14/23 11/28/22 History albuterol sulfate 2.5 mg/3 mL 2.5 mg inhalation Q4-6H PRN 11/28/22 03/14/23 Unknown History (0.083 %) solution for nebulization wheezing melatonin 5 mg tablet 5 mg PO BEDTIME PRN insomnia 03/14/23 03/14/23 Unknown History tiotropium bromide 18 mcg capsule 1 cap inhalation DAILY 03/14/23 03/14/23 Unknown History with inhalation device (Spiriva with HandiHaler) Physical Exam Vital Signs: Vital Signs: Last Vital Signs Temp 97.7 F 03/15/23 08:00 Pulse 82 03/15/23 08:27 Resp 20 03/15/23 08:27 BP 120/76 03/15/23 08:00 Pulse Ox 92 03/15/23 08:00 O2 Del Method Room Air 03/15/23 08:00 BMI result Body Mass Index 25.3 Const: General: comfortable and no acute distress Orientation/consciousness: patient oriented x3 HEENT: Other: Unremarkable Head: Yes normal to inspection Neck: Neck: Yes normal visual inspection Chest: Chest palpation & inspection: normal inspection of the chest Resp: Auscultation: wheezes and diminished lung sounds Cardio: Palpation: normal PMI Heart sounds: S1 normal heart sound present, S2 normal heart sound present, no gallops, Murmur heart sound present systolic III/ and at the right sternal border and no rubs GI: Palpation (GI): Soft to palpation Back/Spine/Pelvis: Other: unremarkable Skin: General skin exam: no rashes or lesions noted Neuro: General: patient oriented x3 Extrem: General: Yes normal to inspection Psych: Mental Status: mental status grossly normal Objective Labs and Meds 03/14/23 09:51 03/15/23 07:23 Lab results: Laboratory Results - last 24 hr 03/14/23 03/14/23 03/14/23 14:23 14:24 16:06 Sodium 139 Potassium 4.0 D Chloride 100 Carbon Dioxide 30 H Anion Gap 13 BUN 8 L Creatinine 0.66 Estim Creat Clear Calc 69.6 Estimated GFR > 60 POC Glucose 169 H Random Glucose 154 H Calcium 9.9 Total Bilirubin AST ALT Alkaline Phosphatase Troponin I High Sens 16.1 Total Protein Albumin Respiratory Panel Damico See Note Adenovirus (Rapid PCR) Not Detected B.pert (TEM-PCR) Not Detected B.parapertussis DNA PCR Not Detected C. pneumoniae DNA (PCR) Not Detected Coronavirus OC43 (PCR) Not Detected Coronavirus HKU1 (PCR) Not Detected Coronavirus 229E (PCR) Not Detected Coronavirus NL63 (PCR) Not Detected Human Metapneumovir PCR Not Detected Influenza A (RT-PCR) Not Detected Influenza B (RT-PCR) Not Detected M. pneumoniae (PCR) Not Detected Parainfluenza 1 (PCR) Not Detected Parainfluenza 2 (PCR) Not Detected Parainfluenza 3 (PCR) Not Detected Parainfluenza 4 (PCR) Not Detected RSV (PCR) Not Detected Entero/Rhino (PCR) Not Detected SARS-CoV-2 RNA (RT-PCR) Not Detected 03/14/23 03/15/23 03/15/23 20:01 07:23 07:33 Sodium 141 Potassium 4.6 Chloride 104 Carbon Dioxide 28 Anion Gap 14 BUN 12 Creatinine 0.56 Estim Creat Clear Calc 82.0 Estimated GFR > 60 POC Glucose 143 H 124 H Random Glucose 129 H Calcium 9.9 Total Bilirubin 0.2 AST 17 ALT 8 Alkaline Phosphatase 62 Troponin I High Sens Total Protein 6.7 Albumin 3.4 L Respiratory Panel Damico Adenovirus (Rapid PCR) B.pert (TEM-PCR) B.parapertussis DNA PCR C. pneumoniae DNA (PCR) Coronavirus OC43 (PCR) Coronavirus HKU1 (PCR) Coronavirus 229E (PCR) Coronavirus NL63 (PCR) Human Metapneumovir PCR Influenza A (RT-PCR) Influenza B (RT-PCR) M. pneumoniae (PCR) Parainfluenza 1 (PCR) Parainfluenza 2 (PCR) Parainfluenza 3 (PCR) Parainfluenza 4 (PCR) RSV (PCR) Entero/Rhino (PCR) SARS-CoV-2 RNA (RT-PCR) ECG Interpretation: EKG with ventricular paced rhythm at 80/Min. Atrial rhythm not very clear. Possible sinus as a P-waves clear in some leads but not elsewhere. Assessment and Plan (1) Acute exacerbation of COPD with asthma: Status: Resolved (2) Severe aortic stenosis: Status: Acute (3) Pacemaker: Status: Acute Plan As described above, history of aortic homograft. On today's echocardiogram, gradients across aortic valve on the severe side. Calculated valve area >1 but that might be because of high LVOT measurement which would make the calculated valve area inaccurate. However, her wheezing is more likely from COPD and less likely from the severe aortic stenosis. Aortic stenosis certainly not helping. Eventually, this will require diagnostic left and right heart catheterization workup towards TAVR. With regard to the pacemaker issue, she states she is set up for a generator change tomorrow. I have placed a call to [facility] verify this information. Indeed if it is accurate and she is getting the pacemaker change tomorrow, then possible transfer but to be decided based on if they will accept her or not. Will follow-up with you. Procedures Date of Service Date of Service: 03/15/23
[2023-03-15 11:20] LABS: Glucose, Whole Blood 158 mg/dL (60-115)
[2023-03-15] MEDS: Enoxaparin Sodium 40 MG/0.4 ML SYRINGE SUBCUT (11:55)
[2023-03-15] MEDS: Insulin Lispro 100 UNIT/ML 3 ML VIAL SUBCUT (11:55)
--- OUTSIDE RECORDS SUMMARY | 2023-03-15 12:15 | XMS_ITS | Continuity of Care Document ---
Author Name Unknown Organization [facility] Address [address] [place] [id number]- Care Team Providers Care Early Childhood Name Role Phone Joshua Hampton MD, Ting Osman Primary Care Physici an Encounter [facility] Date(s): 11/02/21 - 12/02/21 [facility] [address] [place] [phone]- [place] Allergies, Adverse Reactions, Alerts Substance Reaction Severity Status ciprofloxacin Active aspirin Active shellfish hives Active Immunizations Given and Recorded Vaccine Date Status Refusal Reason Influenza Inactive (IM) (oldterm) 1 12/05/07 Given Pneumococcal Vaccine (oldterm) 2 09/30/07 Given 1Admin Note: SANOFI PASTEUR 2Result Comment: [id number] exp [id number] Medications Advair Diskus 250 mcg-50 mcg inhalation powder 1 puffs, Inhalation, 2 times a day, # 180 each, 0 Refills, Maintenance, 04/17/13 14:43:15, Powder Start Date: 04/17/13 Status: Ordered amoxicillin 500 mg oral capsule 4 capsule = 2,000 mg, By Mouth, Once, given 1 hour prior to the procedure, # 4 capsule, 1 Refills, Soft Stop, 01/30/17 8:09:10 Start Date: 01/30/17 Status: Ordered Benzonatate = 100 mg, By Mouth, 3 times a day, 0 Refills, Maintenance, 01/30/17 7:54:28 Start Date: 01/30/17 Status: Ordered bisacodyl 5 mg oral delayed release tablet = 5 mg, By Mouth, Daily, PRN Constipation, 0 Refills, Maintenance, 11/19/16 14:30:04, EC Tablet Start Date: 11/19/16 Status: Ordered Dulcolax Stool Softener = 100 mg, By Mouth, 2 times a day, 0 Refills, Maintenance, 01/30/17 7:53:34 Start Date: 01/30/17 Status: Ordered furosemide 20 mg oral tablet 20 mg, 1, tablet, By Mouth, Daily, # 90 tablet, Refills 0, Tot. Refills 0, Maintenance, 10/27/21 16:58:00 EDT, Route to Pharmacy Electronically, [facility], 150, cm, 11/05/19 17:54:00 EDT, Height Start Date: 10/27/21 Stop Date: 01/25/22 Status: Ordered Loratadine 10 mg, By Mouth, Daily, Refills 0, Maintenance, 01/30/17 7:53:11 Start Date: 01/30/17 Status: Ordered Losartan = 100 mg, By Mouth, Daily, 0 Refills, Maintenance, 01/30/17 7:53:18 Start Date: 01/30/17 Status: Ordered Metformin = 500 mg, By Mouth, 2 times a day, 0 Refills, Maintenance, 01/30/17 7:53:24 Start Date: 01/30/17 Status: Ordered Plavix 75 mg oral tablet 75 mg, 1, tablet, By Mouth, Daily, # 90 tablet, Refills 3, Tot. Refills 3, Maintenance, 02/08/21 7:45:00 EST, Route to Pharmacy Electronically, [facility], 150, cm, 11/05/19 17:54:00 EDT, Height Start Date: 02/08/21 Stop Date: 02/03/22 Status: Ordered predniSONE 5 mg oral tablet = 2.5 mg, By Mouth, Daily, 0 Refills, Maintenance, 11/19/16 14:28:45, Tablet Start Date: 11/19/16 Status: Ordered Proventil HFA 90 mcg/inh inhalation aerosol with adapter 1 puffs, Inhalation, 4 times a day, PRN for wheezing, # 25 Gm, 0 Refills, Maintenance, 04/17/13 14:44:10, Aerosol Start Date: 04/17/13 Status: Ordered ranitidine 150 mg oral capsule 1 capsule = 150 mg, By Mouth, 2 times a day, 0 Refills, Maintenance Start Date: 09/28/10 Status: Ordered rosuvastatin 20 mg oral tablet 1 tablet = 20 mg, By Mouth, Daily, # 90 tablet, 3 Refills, Maintenance, 04/04/18 10:16:01 EST, Tablet Start Date: 04/04/18 Status: Ordered sertraline 50 mg oral tablet 1 tablet = 50 mg, By Mouth, Daily, # 30 tablet, 0 Refills, Maintenance, 04/17/13 14:42:40, Tablet Start Date: 04/17/13 Status: Ordered Singulair 10 mg oral tablet 1 tablet = 10 mg, By Mouth, Daily in PM, # 30 tablet, 0 Refills, Maintenance, 04/17/13 14:42:10, Tablet Start Date: 04/17/13 Status: Ordered Spiriva HandiHaler 18 mcg Inhalation Capsule 1 capsule = 18 mcg, Inhalation, Daily, # 90 capsule, 0 Refills, Maintenance, Capsule Start Date: 10/24/11 Status: Ordered Tizanidine 4 mg, By Mouth, Refills 0, Maintenance, 01/30/17 7:53:43 Start Date: 01/30/17 Status: Ordered trazodone 100 mg oral tablet 1.5 tablet, By Mouth, Daily at bedtime, 0 Refills, Maintenance, 05/18/11 13:24:22 Start Date: 05/18/11 Status: Ordered tylenol arthgritis 650mg tylenol arthgritis 650mg, Refills 0, Maintenance, 03/22/17 11:27:58, Compound Start Date: 03/22/17 Status: Ordered Problem List Condition Confirmation Course Effective Dates Status Health St atus Informant Arthritis Confirmed Active Asthma Confirmed Active Back pain Confirmed Active Diabetes mellitus Confirmed Active Hypertension Confirmed Active Social History Social History Type Response Smoking Status Current every day sm oker; Tobacco user in household: Yes entered on: 03/22/17 Sex Patient Care team information Personnel Name: Joshua Hampton MD, Ting Osman Address: Address: [address] [place] [address] [address] [place], [place] [address]
--- OUTSIDE RECORDS SUMMARY | 2023-03-15 12:16 | XMS_ITS | Continuity of Care Document ---
Author Name Unknown Organization [facility] Address [address] [place] [id number]- Care Team Providers Care Clinical Services Manager Name Role Phone Allyson Packer MD Primary Care Physici an Encounter [facility] AC[facility] R [id number] Date(s): 08/22/22 - 10/20/22 [facility] [address] [place] [address]- Attending Physician: Zechariah Reyez MD Admitting Physician: Zechariah Reyez MD Referring Physician: Allyson Packer MD Allergies, Adverse Reactions, Alerts Substance Reaction Severity Status ciprofloxacin Active shellfish hives Active aspirin Active Immunizations Given and Recorded Vaccine Date Status Refusal Reason Influenza Inactive (IM) (oldterm) 1 12/05/07 Given Pneumococcal Vaccine (oldterm) 2 09/30/07 Given 1Admin Note: SANOFI PASTEUR 2Result Comment: [id number] exp [id number] Medications Advair Diskus 250 mcg-50 mcg inhalation [...] 01/30/17 7:53:34 Start Date: 01/30/17 Status: Ordered folic acid 1 mg oral tablet TAKE 1 TABLET BY MOUTH EVERY MORNING Start Date: 08/31/22 Status: Ordered furosemide 20 mg oral tablet 20 mg, 1, tablet, By Mouth, Daily, # 90 tablet, Refills 0, Tot. Refills 0, Maintenance, 10/27/21 16:58:00 EDT, Route to Pharmacy Electronically, [facility], 150, cm, 11/05/19 17:54:00 EDT, Height Start Date: 10/27/21 Stop Date: 01/25/22 Status: Ordered gabapentin 100 mg oral capsule TAKE 1 CAPSULE BY MOUTH THREE TIMES DAILY IN THE MORNING, EVENING, AND BEDTIME Start Date: 08/31/22 Status: Ordered Loratadine 10 mg, By Mouth, [...] By Mouth, Daily, # 90 tablet, Refills 1, Tot. Refills 1, Maintenance, 07/16/22 12:46:00 EDT, Route to Pharmacy Electronically, [facility], 150, cm, 11/03/21 13:03:00 EDT, Height Start Date: 07/16/22 Stop Date: 01/12/23 Status: Ordered predniSONE 5 mg oral tablet [...] on: 03/22/17 Sex Patient Care team information Care Team Personnel Name: Allyson Packer MD Position: S Outreach Member Role: PCP Address: Address: [address] [place] [address] [address] [place], [place] [address] Care Team Related Persons Name: SHAHAB HERCULES Address: home [address] [place] [address] Name: ALLYSON MCKENNA Name: KIRA DOTSON Address: [place] [address] Name: RISA DOTSON Address: home [address] [place] [id number]
--- OUTSIDE RECORDS SUMMARY | 2023-03-15 12:16 | XMS_ITS | Continuity of Care Document ---
Author Name Unknown Organization [facility] Address [address] [place] [phone]- Care Team Providers Care Life Insurance Sales Agent Name Role Phone Allyson Packer MD Primary Care Physici an Encounter [facility] [place] [place] Date(s): 02/06/23 - 03/08/23 [facility] [address] [place] [id number] [place] Allergies, Adverse Reactions, Alerts Substance Reaction Severity Status ciprofloxacin Active aspirin Active shellfish hives Active Immunizations Given and Recorded Vaccine Date Status Refusal Reason Influenza Inactive (IM) (oldterm) 1 12/05/07 Given Pneumococcal Vaccine (oldterm) 2 09/30/07 Given 1Admin Note: SANOFI PASTEUR 2Result Comment: [id number] exp [id number] Medications Advair Diskus 250 mcg-50 mcg inhalation [...] 10/27/21 16:58:00 EDT, Route to Pharmacy Electronically, [facility], 150, cm, 11/05/19 17:54:00 EDT, [...] tablet, Refills 1, Tot. Refills 1, Maintenance, 02/06/23 15:57:00 EST, Route to Pharmacy Electronically, [facility], 150, cm, 08/31/22 16:04:00 EDT, Height Start Date: 02/06/23 Stop Date: 08/05/23 Status: Ordered predniSONE 5 mg oral tablet [...] Team Personnel Name: Allyson Packer MD Position: [facility] Outreach Member Role: PCP Address: Address: [address] [place] [address] [address] [place] [address]- Care Team Related Persons Name: SHAHAB HERCULES Address: home [address] [place] [address] Name: ALLYSON MCKENNA Name: KIRA DOTSON Address: [place] [address] Name: RISA DOTSON Address: [address] [address]
--- OUTSIDE RECORDS SUMMARY | 2023-03-15 12:16 | XMS_ITS | Continuity of Care Document ---
Author Name Unknown Organization [facility] Address [address] [place] [address]- Care Team Providers Care Fashion Journalist Name Role Phone Ellen Sheppard MD Primary Care Physician Encounter [facility] Date(s): 01/21/19 - 03/23/19 [facility] [address] [place] [address]- [facility] Attending Physician: Kevon Wolff MD Admitting Physician: Kevon Wolff MD Referring Physician: Ellen Sheppard MD Allergies, Adverse Reactions, Alerts Substance Reaction Severity Status ciprofloxacin Active aspirin Active shellfish hives Active Immunizations Given and Recorded Vaccine Date Status Refusal Reason Influenza Inactive (IM) (oldterm) 1 12/05/07 Given Pneumococcal Vaccine (oldterm) 2 09/30/07 Given 1Admin Note: SANOFI PASTEUR 2Result Comment: [id number] 0519x exp [id number] Medications Advair Diskus 250 mcg-50 mcg inhalation [...] tablet, Refills 3, Tot. Refills 3, Maintenance, 07/18/18 15:19:22 EDT, Route to Pharmacy Electronically, [id number], [facility] Start Date: 07/18/18 Stop Date: 07/13/19 Status: Ordered Loratadine 10 mg, By Mouth, [...] tablet, Refills 3, Tot. Refills 3, Maintenance, 03/05/19 15:15:00 EST, Route to Pharmacy Electronically, [facility], 150, cm, 01/10/1912:50:00 EST, Height, 79.5, kg, 04/22/18 7:46:00 ES... Start Date: 03/05/19 Status: Ordered predniSONE 5 mg oral tablet [...] 11:27:58, Compound Start Date: 03/22/17 Status: Ordered Social History Social History Type Response Smoking Status Current every day shiloh serrano; Tobacco user in household: Yes entered on: 03/22/17 Sex
--- OUTSIDE RECORDS SUMMARY | 2023-03-15 12:16 | XMS_ITS | Continuity of Care Document ---
Author Name Unknown Organization [facility] Address [address] [place] [address]- Care Team Providers Care Community Reinvestment Act Officer Name Role Phone Allyson Packer MD Primary Care Physici an Encounter [facility] [place] Date(s): 01/15/23 - 02/23/23 [facility] [address] [place] [address]- Attending Physician: Zechariah Reyez MD Admitting Physician: Zechariah Reyez MD Referring Physician: Allyson Packer MD Allergies, Adverse Reactions, Alerts Substance Reaction Severity Status ciprofloxacin Active aspirin Active shellfish hives Active Immunizations Given and Recorded Vaccine Date Status Refusal Reason Influenza Inactive (IM) (oldterm) 1 12/05/07 Given Pneumococcal Vaccine (oldterm) 2 09/30/07 Given 1Admin Note: SANOFI PASTEUR 2Result Comment: [id number] 0519x exp [id number] Medications Advair Diskus 250 mcg-50 mcg inhalation [...] 10/27/21 16:58:00 EDT, Route to Pharmacy Electronically, [facility], 150, cm, 11/05/19 17:54:00 EDT, [...] 02/06/23 15:57:00 EST, Route to Pharmacy Electronically, [facility], 150, cm, 08/31/22 16:04:00 EDT, [...] S Outreach Member Role: PCP Address: Address: [address] [place] [address] [address] [place], [place] [address] Care Team Related Persons Name: SHAHAB HERCULES Address: home [address] [place] [address] Name: ALLYSON MCKENNA Name: IKRA DOTSON Address: [place] [address] Name: RISA DOTSON Address: home [address] [place] [address]
--- OUTSIDE RECORDS SUMMARY | 2023-03-15 12:16 | XMS_ITS | Continuity of Care Document ---
Author Name Unknown Organization [facility] Address [address] [place] [address]- Care Team Providers Care Truck Service Technician Name Role Phone Ting Packer MD Primary Care Physici an Encounter [facility] [place] Date(s): 02/25/21 - 06/25/21 [facility] [address] [place] [address]- Attending Physician: Kevon Wolff MD Admitting Physician: Kevon Wolff MD Allergies, Adverse Reactions, Alerts Substance Reaction Severity Status ciprofloxacin Active aspirin Active shellfish hives Active Immunizations Given and Recorded Vaccine Date Status Refusal Reason Influenza Inactive (IM) (oldterm) 1 12/05/07 Given Pneumococcal Vaccine (oldterm) 2 09/30/07 Given 1Admin Note: SANOFI PASTEUR 2Result Comment: [id number] 0519x exp [id number] Medications Advair Diskus 250 mcg-50 mcg inhalation [...] By Mouth, Daily, # 90 tablet, Refills 2, Tot. Refills 2, Maintenance, 10/21/20 9:36:00 EDT, Route to Pharmacy Electronically, [facility], 150, cm, 11/05/19 17:54:00 EDT, Height Start Date: 10/21/20 Stop Date: 07/18/21 Status: Ordered Loratadine 10 mg, By Mouth, [...] 02/08/21 7:45:00 EST, Route to Pharmacy Electronically, [facility], 150, cm, 11/05/19 17:54:00 EDT, [...] Date: 03/22/17 Status: Ordered Problem List Condition Effective Dates Status Health Status Inform ant Arthritis(Confirmed) Active Asthma(Confirmed) Active Back pain(Confirmed) Active Diabetes mellitus(Confirmed) Active Hypertension(Confirmed) Active Social History Social History Type Response Smoking Status Current every day shiloh serrano; Tobacco user in household: Yes entered on: 03/22/17 Sex
--- OUTSIDE RECORDS SUMMARY | 2023-03-15 12:16 | XMS_ITS | Continuity of Care Document ---
Author Name Unknown Organization [facility] Address [address] [place] [address]- Care Team Providers Care Director Of Corporate Responsibility Name Role Phone Ting Packer MD Primary Care Physici an Encounter [facility] [place] Date(s): 10/20/20 - 11/19/20 [facility] [address] [place] [address]- [place] Allergies, Adverse Reactions, Alerts Substance Reaction Severity Status ciprofloxacin Active aspirin Active shellfish hives Active Immunizations Given and Recorded Vaccine Date Status Refusal Reason Influenza Inactive (IM) (oldterm) 1 12/05/07 Given Pneumococcal Vaccine (oldterm) 2 09/30/07 Given 1Admin Note: SANOFI PASTEUR 2Result Comment: [id number] 0519x exp [id number] Medications Advair Diskus 250 mcg-50 mcg inhalation [...] 10/21/20 9:36:00 EDT, Route to Pharmacy Electronically, [facility], 150, cm, 11/05/19 17:54:00 EDT, Height [...] tablet, Refills 3, Tot. Refills 3, Maintenance, 02/09/20 14:20:00 EST, Route to Pharmacy Electronically, [facility], 150, cm, 11/05/19 17:54:00 EDT, Height, 79.5, kg, 04/22/18 7:46:00 ESTDr... Start Date: 02/09/20 Stop Date: 02/03/21 Status: Ordered predniSONE 5 mg oral tablet [...]
--- OUTSIDE RECORDS SUMMARY | 2023-03-15 12:16 | XMS_ITS | Continuity of Care Document ---
Author Name Unknown Organization [facility] Address [address] [place] [address]- Care Team Providers Care Sawmill Equipment Operator Name Role Phone Joshua Hampton MD, Allyson Osman Primary Care Physici an Encounter [facility] [place] Date(s): 02/09/20 - 03/10/20 [facility] [address] [place] [address]- Allergies, Adverse Reactions, Alerts Substance Reaction Severity Status ciprofloxacin Active aspirin Active shellfish hives Active Immunizations Given and Recorded Vaccine Date Status Refusal Reason Influenza Inactive (IM) (oldterm) 1 12/05/07 Given Pneumococcal Vaccine (oldterm) 2 09/30/07 Given 1Admin Note: SANOFI PASTEUR 2Result Comment: [id number] 0519x exp [id number] Medications Advair Diskus 250 mcg-50 mcg inhalation [...] tablet, Refills 3, Tot. Refills 3, Maintenance, 07/13/19 15:19:00 EDT, Route to Pharmacy Electronically, [facility], 150, cm, 03/31/19 14:50:00 EST, Height, 79.5, kg, 04/22/18 7:46:00 ESTDr... Start Date: 07/13/19 Stop Date: 07/07/20 Status: Ordered Loratadine 10 mg, By Mouth, [...] 02/09/20 14:20:00 EST, Route to Pharmacy Electronically, [facility], 150, cm, 11/05/19 17:54:00 EDT, Height, 79.5, kg, 04/22/18 7:46:00 Dr.. NILS. Start Date: 02/09/20 Stop Date: 02/03/21 Status: [...] Response Smoking Status Current every day sm zach; Tobacco user in household: Yes entered on: 03/22/17 Sex
--- OUTSIDE RECORDS SUMMARY | 2023-03-15 12:16 | XMS_ITS | Continuity of Care Document ---
Author Name Unknown Organization [facility] Address [address] [place] [address]- Care Team Providers Care Intramural Director Name Role Phone Allyson Packer MD Primary Care Physici an Encounter [facility] [place] Date(s): 03/14/22 - 04/13/22 [facility] [address] [place] [address]- [place] Allergies, Adverse Reactions, Alerts Substance Reaction Severity Status ciprofloxacin Active aspirin Active shellfish hives Active Immunizations Given and Recorded Vaccine Date Status Refusal Reason Influenza Inactive (IM) (oldterm) 1 12/05/07 Given Pneumococcal Vaccine (oldterm) 2 09/30/07 Given 1Admin Note: SANOFI PASTEUR 2Result Comment: [id number] 0519x exp [id number] Medications Advair Diskus 250 mcg-50 mcg inhalation [...] 10/27/21 16:58:00 EDT, Route to Pharmacy Electronically, [facility], 150, cm, 11/05/19 17:54:00 EDT, Height [...] tablet, Refills 1, Tot. Refills 1, Maintenance, 01/17/22 12:46:00 EST, Route to Pharmacy Electronically, [facility], 150, cm, 11/03/21 13:03:00 EDT, Height Start Date: 01/17/22 Stop Date: 07/16/22 Status: Ordered predniSONE 5 mg oral tablet [...] Team Personnel Name: Allyson Packer MD Position: [facility] Outreach Member Role: PCP Address: Address: [address] [place] [address] [address] [place] [address]- [place] Care Team Related Persons Name: SHAHAB HERCULES Address: home [address] [place] [address] Name: ALLYSON MCKENNA Name: KIRA DOTSON Address: [place] [address] Name: RISA DOTSON Address: home [address] [place] [address] [address] [place] [address]
--- OUTSIDE RECORDS SUMMARY | 2023-03-15 12:16 | XMS_ITS | Continuity of Care Document ---
Author Name Unknown Organization [facility] Address [address] [place] [address]- Care Team Providers Care Industrial Spraypainter Name Role Phone Joshua Hampton MD, Allyson Osman Primary Care Physici an Encounter [facility] [place] Date(s): 01/14/20 - 02/13/20 [facility] [address] [place] [address]- Attending Physician: AdmRosina huffman Admitting Physician: AdmtrRosina Referring Physician: Admtr, Ar8 Allergies, Adverse Reactions, Alerts Substance Reaction Severity Status ciprofloxacin Active aspirin Active shellfish hives Active Immunizations Given and Recorded Vaccine Date Status Refusal Reason Influenza Inactive (IM) (oldterm) 1 12/05/07 Given Pneumococcal Vaccine (oldterm) 2 09/30/07 Given 1Admin Note: SANOFI PASTEUR 2Result Comment: [id number] 0519x exp [id number] Medications Advair Diskus 250 mcg-50 mcg inhalation [...] 07/13/19 15:19:00 EDT, Route to Pharmacy Electronically, [facility], 150, cm, 03/31/19 14:50:00 EST, Height, 79.5, kg, 04/22/18 7:46:00 Dr.. NILS. Start Date: 07/13/19 Stop Date: 07/07/20 Status: [...] 02/09/20 14:20:00 EST, Route to Pharmacy Electronically, [facility], 150, cm, 11/05/19 17:54:00 EDT, [...]
--- OUTSIDE RECORDS SUMMARY | 2023-03-15 12:16 | XMS_ITS | Continuity of Care Document ---
Author Name Unknown Organization [facility] Address [address] [place] [address]- Care Team Providers Care Mower Sharpener Name Role Phone Silver CARREON, Ellen Primary Care Physician Encounter [facility] [place] Date(s): 04/09/19 - 04/19/19 [facility] [address] [place] [address]- [facility] Attending Physician: Admtr, Garret8 Admitting Physician: Admtr, Garret8 Referring Physician: Admtr, Ar8 Allergies, Adverse Reactions, Alerts Substance Reaction Severity Status ciprofloxacin Active aspirin Active shellfish hives Active Immunizations Given and Recorded Vaccine Date Status Refusal Reason Influenza Inactive (IM) (oldterm) 1 12/05/07 Given Pneumococcal Vaccine (oldterm) 2 09/30/07 Given 1Admin Note: SANOFI PASTEUR 2Result Comment: [id number] 0519x exp [id number] Medications Advair Diskus 250 mcg-50 mcg inhalation [...] 07/18/18 15:19:22 EDT, Route to Pharmacy Electronically, [id number], [facility] Start Date: 07/18/18 Stop Date: 07/13/19 Status: [...] 03/05/19 15:15:00 EST, Route to Pharmacy Electronically, [facility], 150, cm, 01/10/1912:50:00 EST, Height, 79.5, kg, [...]
--- OUTSIDE RECORDS SUMMARY | 2023-03-15 12:16 | XMS_ITS | Continuity of Care Document ---
Author Name Unknown Organization [facility] Address [address] [place] [address]- Care Team Providers Care Conservation Specialist Name Role Phone Allyson Packer MD Primary Care Physici an Encounter [facility] [place] Date(s): 01/13/22 - 05/13/22 [facility] [address] [place] [address]- Attending Physician: Zechariah Reyez MD Admitting Physician: Zechariah Reyez MD Referring Physician: Allyson Packer MD Allergies, Adverse Reactions, Alerts Substance Reaction Severity Status ciprofloxacin Active aspirin Active shellfish hives Active Immunizations Given and Recorded Vaccine Date Status Refusal Reason Influenza Inactive (IM) (oldterm) 1 12/05/07 Given Pneumococcal Vaccine (oldterm) 2 09/30/07 Given 1Admin Note: SANOFI PASTEUR 2Result Comment: [id number] 0519x exp [id number] Medications Advair Diskus 250 mcg-50 mcg inhalation [...] 10/27/21 16:58:00 EDT, Route to Pharmacy Electronically, [facility], 150, cm, 11/05/19 17:54:00 EDT, [...] 01/17/22 12:46:00 EST, Route to Pharmacy Electronically, [facility], 150, cm, 11/03/21 13:03:00 EDT, [...] Team Personnel Name: Allyson Packer MD Position: [facility] Outreach Member Role: PCP Address: Address: [address] [place] [address]- Care Team Related Persons Name: SHAHAB HERCULES Address: home [address] [place] [address] Name: ALLYSON MCKENNA Name: KIRA DOTSON Address: [place] [address] Name: RISA DOTSON Address: [address] [address]
--- OUTSIDE RECORDS SUMMARY | 2023-03-15 12:16 | XMS_ITS | Continuity of Care Document ---
Author Name Unknown Organization [facility] Address [address] [place] [address]- Care Team Providers Care Club Lounge Attendant Name Role Phone Joshua Hampton MD, Allyson Osman Primary Care Physici an En[place] [facility] [place] Date(s): 06/07/22 - 07/07/22 [facility] [address] [place] [address]- [place] Allergies, Adverse Reactions, Alerts Substance Reaction Severity Status ciprofloxacin Active aspirin Active shellfish hives Active Immunizations Given and Recorded Vaccine Date Status Refusal Reason Influenza Inactive (IM) (oldterm) 1 12/05/07 Given Pneumococcal Vaccine (oldterm) 2 09/30/07 Given 1Admin Note: SANOFI PASTEUR 2Result Comment: [id number] 0519x exp [id number] Medications Advair Diskus 250 mcg-50 mcg inhalation [...] 10/27/21 16:58:00 EDT, Route to Pharmacy Electronically, [facility], 150, cm, 11/05/19 17:54:00 EDT, [...] 01/17/22 12:46:00 EST, Route to Pharmacy Electronically, [facility], 150, cm, 11/03/21 13:03:00 EDT, [...] Team Personnel Name: Allyson Packer MD Position: [facility] Outreach Member Role: PCP Address: Address: [address] [place] [address] [address] [place] [address]- Care Team Related Persons Name: SHAHAB HERCULES Address: home [address] [address] Name: ALLYSON MCKENNA Name: KIRA DOTSON Address: [place] [address] Name: RISA DOTSON Address: home [address] [place] [address] [address] [place] [address]
--- OUTSIDE RECORDS SUMMARY | 2023-03-15 12:16 | XMS_ITS | Continuity of Care Document ---
Author Name Unknown Organization [facility] Address [address] [place] [address]- Care Team Providers Care Drum Attendant Name Role Phone Joshua Hampton MD, Allyson Osman Primary Care Physici an Encounter [facility] [place] Date(s): 11/01/22 - 12/01/22 [facility] [address] [place] [address]- [place] Allergies, Adverse Reactions, Alerts Substance Reaction Severity Status ciprofloxacin Active aspirin Active shellfish hives Active Immunizations Given and Recorded Vaccine Date Status Refusal Reason Influenza Inactive (IM) (oldterm) 1 12/05/07 Given Pneumococcal Vaccine (oldterm) 2 09/30/07 Given 1Admin Note: SANOFI PASTEUR 2Result Comment: [id number] 0519x exp [id number] Medications Advair Diskus 250 mcg-50 mcg inhalation [...] 10/27/21 16:58:00 EDT, Route to Pharmacy Electronically, [facility], 150, cm, 11/05/19 17:54:00 EDT, [...] 07/16/22 12:46:00 EDT, Route to Pharmacy Electronically, [facility], 150, cm, 11/03/21 13:03:00 EDT, [...] Team Personnel Name: Allyson Packer MD Position: [facility] Outreach Member Role: PCP Address: Address: [address] [place] [address] [address] [place] [address]- Care Team Related Persons Name: SHAHAB HERCULES Address: home [address] [place] [address] Name: ALLYSON MCKENNA Name: KIRA DOTSON Address: [place] [address] Name: RISA DOTSON Address: [address] [address]
--- OUTSIDE RECORDS SUMMARY | 2023-03-15 12:16 | XMS_ITS | Continuity of Care Document ---
Author Name Unknown Organization [facility] Address [address] [place] [address]- Care Team Providers Care Reference And Instruction Librarian Name Role Phone Allyson Packer MD Primary Care Physici an Encounter [facility] [place] ACCT R [id number] Date(s): 04/17/22 - 05/25/22 [facility] [address] [place] [address]- Attending Physician: Zechariah Reyez MD Admitting Physician: Zechariah Reyez MD Referring Physician: Allyson Packer MD Allergies, Adverse Reactions, Alerts Substance Reaction Severity Status ciprofloxacin Active aspirin Active shellfish hives Active Immunizations Given and Recorded Vaccine Date Status Refusal Reason Influenza Inactive (IM) (oldterm) 1 12/05/07 Given Pneumococcal Vaccine (oldterm) 2 09/30/07 Given 1Admin Note: SANOFI PASTEUR 2Result Comment: [id number] 0519x exp [id number] Medications Advair Diskus 250 mcg-50 mcg inhalation [...] 10/27/21 16:58:00 EDT, Route to Pharmacy Electronically, [facility], 150, cm, 11/05/19 17:54:00 EDT, [...] 01/17/22 12:46:00 EST, Route to Pharmacy Electronically, [facility], 150, cm, 11/03/21 13:03:00 EDT, [...] Team Personnel Name: Allyson Packer MD Position: [facility] Outreach Member Role: PCP Address: Address: [address] [place] [address]- [place] Care Team Related Persons Name: SHAHAB HERCULES Address: home [address] [place] [address] Name: ALLYSON MCKENNA Name: KIRA DOTSON Address: [place] [address] Name: RISA DOTSON Address: home [address] [place] [address]
--- OUTSIDE RECORDS SUMMARY | 2023-03-15 12:16 | XMS_ITS | Continuity of Care Document ---
Author Name Unknown Organization [facility] Address [address] [place] [address]- Care Team Providers Care Sintering Plant Supervisor Name Role Phone Joshua Hampton MD, Allyson Osman Primary Care Physici an Encounter [facility] [place] Date(s): 05/13/20 - 06/12/20 [facility] [address] [place] [address] Attending Physician: AdmRosina huffman Admitting Physician: AdmtrRosina Referring Physician: Admtr, Ar8 Allergies, Adverse Reactions, Alerts Substance Reaction Severity Status ciprofloxacin Active aspirin Active shellfish hives Active Immunizations Given and Recorded Vaccine Date Status Refusal Reason Influenza Inactive (IM) (oldterm) 1 12/05/07 Given Pneumococcal Vaccine (oldterm) 2 09/30/07 Given 1Admin Note: SANOFI PASTEUR 2Result Comment: [id number] 0519x exp [id number] Medications Advair Diskus 250 mcg-50 mcg inhalation [...] 07/13/19 15:19:00 EDT, Route to Pharmacy Electronically, [facility], 150, cm, 03/31/19 14:50:00 EST, Height, [...] 02/09/20 14:20:00 EST, Route to Pharmacy Electronically, [facility], 150, cm, 11/05/19 17:54:00 EDT, Height, [...]
--- OUTSIDE RECORDS SUMMARY | 2023-03-15 12:16 | XMS_ITS | Continuity of Care Document ---
Author Name Unknown Organization [facility] Address [address] [place] [address]- Care Team Providers Care Production Sound Mixer Name Role Phone Ting Packer MD Primary Care Physici an Encounter [facility] [place] ACCT R [id number] Date(s): 08/25/20 - 12/23/20 [facility] [address] [place] [address]- Attending Physician: Zechariah Reyez MD Admitting Physician: Zechariah Reyez MD Referring Physician: Ting Packer MD Allergies, Adverse Reactions, Alerts Substance Reaction Severity Status ciprofloxacin Active aspirin Active shellfish hives Active Immunizations Given and Recorded Vaccine Date Status Refusal Reason Influenza Inactive (IM) (oldterm) 1 12/05/07 Given Pneumococcal Vaccine (oldterm) 2 09/30/07 Given 1Admin Note: SANOFI PASTEUR 2Result Comment: [id number] 0519x exp [id number] Medications Advair Diskus 250 mcg-50 mcg inhalation [...] 10/21/20 9:36:00 EDT, Route to Pharmacy Electronically, [facility], 150, cm, 11/05/19 17:54:00 [...] 02/09/20 14:20:00 EST, Route to Pharmacy Electronically, [facility], 150, cm, 11/05/19 17:54:00 [...]
--- OUTSIDE RECORDS SUMMARY | 2023-03-15 12:16 | XMS_ITS | Continuity of Care Document ---
Author Name Unknown Organization [facility] Address [address] [place] [address]- Care Team Providers Care Tactical Response Group Officer Name Role Phone Silver CARREON, Ellen Primary Care Physician En[facility] [place] [place] Date(s): 02/21/19 - 03/03/19 [facility] [address] [place] [address]- [facility] Attending Physician: Admtr, Ar8 Admitting Physician: Admtr, Garret8 Referring Physician: Admtr, Ar8 Allergies, Adverse Reactions, Alerts Substance Reaction Severity Status ciprofloxacin Active aspirin Active shellfish hives Active Immunizations Given and Recorded Vaccine Date Status Refusal Reason Influenza Inactive (IM) (oldterm) 1 12/05/07 Given Pneumococcal Vaccine (oldterm) 2 09/30/07 Given 1Admin Note: SANOFI PASTEUR 2Result Comment: [id number] 0519x exp [id number] Medications Advair Diskus 250 mcg-50 mcg inhalation [...] 07/18/18 15:19:22 EDT, Route to Pharmacy Electronically, [id number], [facility] Start Date: 07/18/18 Stop Date: 07/13/19 [...] tablet, Refills 3, Tot. Refills 3, Maintenance, 04/04/18 10:15:17 EST, Route to Pharmacy Electronically, [id number], [facility] Start Date: 04/04/18 Status: Ordered predniSONE 5 mg oral tablet [...]
--- OUTSIDE RECORDS SUMMARY | 2023-03-15 12:17 | XMS_ITS | Continuity of Care Document ---
Author Name Unknown Organization [facility] Address [address] [place] [address]- Care Team Providers Care Geospatial Applications Developer Name Role Phone Joshua Hampton MD, Allyson Osman Primary Care Physici an Encounter [facility] [place] Date(s): 07/14/22 - 08/13/22 [facility] [address] [place] [address]- [place] Allergies, Adverse Reactions, Alerts Substance Reaction Severity Status ciprofloxacin Active aspirin Active shellfish hives Active Immunizations Given and Recorded Vaccine Date Status Refusal Reason Influenza Inactive (IM) (oldterm) 1 12/05/07 Given Pneumococcal Vaccine (oldterm) 2 09/30/07 Given 1Admin Note: SANOFI PASTEUR 2Result Comment: [id number] 0519x exp [id number] Medications Advair Diskus 250 mcg-50 mcg inhalation [...] 10/27/21 16:58:00 EDT, Route to Pharmacy Electronically, [facility], 150, cm, 11/05/19 17:54:00 EDT, [...] 07/16/22 12:46:00 EDT, Route to Pharmacy Electronically, [facility], 150, cm, 11/03/21 13:03:00 EDT, Height [...] Team Personnel Name: Allyson Packer MD Position: [facility] Outreach Member Role: PCP Address: Address: [address] [place] [address] [address] [place] [address]- Care Team Related Persons Name: SHAHAB HERCULES Address: home [address] [place] [address] Name: ALLYSON MCKENNA Name: KIRA DOTSON Address: [place] [address] Name: RISA DOTSON Address: home [address] [place] [address] [address] [place] [address]
--- OUTSIDE RECORDS SUMMARY | 2023-03-15 12:17 | XMS_ITS | Continuity of Care Document ---
Author Name Unknown Organization [facility] Address [address] [place] [address]- Care Team Providers Care Men'S And Boys' Clothing Salesperson Name Role Phone Ellen Sheppard MD Primary Care Physician Encounter [facility] [place] Date(s): 03/31/19 - 05/09/19 [facility] [address] [place] [address]- [facility] Attending Physician: Kevon Wolff MD Admitting Physician: Kevon Wolff MD Referring Physician: Ellen Sheppard MD Allergies, Adverse Reactions, Alerts Substance Reaction Severity Status ciprofloxacin Active aspirin Active shellfish hives Active Immunizations Given and Recorded Vaccine Date Status Refusal Reason Influenza Inactive (IM) (oldterm) 1 12/05/07 Given Pneumococcal Vaccine (oldterm) 2 09/30/07 Given 1Admin Note: SANOFI PASTEUR 2Result Comment: [id number] 0519x exp [id number] Medications Advair Diskus 250 mcg-50 mcg inhalation [...] 07/18/18 15:19:22 EDT, Route to Pharmacy Electronically, [id number], [facility] Start Date: 07/18/18 Stop Date: 07/13/19 Status: [...] 03/05/19 15:15:00 EST, Route to Pharmacy Electronically, [facility], 150, cm, 01/10/1912:50:00 EST, Height, 79.5, kg, [...]
--- OUTSIDE RECORDS SUMMARY | 2023-03-15 12:17 | XMS_ITS | Continuity of Care Document ---
Author Name Unknown Organization [facility] Address [address] [place] [address]- Care Team Providers Care Drilling Field Operator Name Role Phone Allyson Packer MD Primary Care Physici an Encounter [facility] [place] Date(s): 05/25/22 - 07/01/22 [facility] [address] [place] [address]- Attending Physician: Zechariah Reyez MD Admitting Physician: Zechairah Reyez MD Referring Physician: Allyson Packer MD Allergies, Adverse Reactions, Alerts Substance Reaction Severity Status ciprofloxacin Active aspirin Active shellfish hives Active Immunizations Given and Recorded Vaccine Date Status Refusal Reason Influenza Inactive (IM) (oldterm) 1 12/05/07 Given Pneumococcal Vaccine (oldterm) 2 09/30/07 Given 1Admin Note: SANOFI PASTEUR 2Result Comment: [id number] 0519x exp [id number] Medications Advair Diskus 250 mcg-50 mcg inhalation [...] 16:58:00 EDT, Route to Pharmacy Electronically, [facility], 150, cm, 11/05/19 17:54:00 EDT, [...] 12:46:00 EST, Route to Pharmacy Electronically, [facility], 150, cm, 11/03/21 13:03:00 EDT, [...] Team Personnel Name: Allyson Packer MD Position: [facility] Outreach Member Role: PCP Address: Address: [address] [place] [address]- [place] Care Team Related Persons Name: SHAHAB HERCULES Address: home [address] [place] [address] Name: ALLYSON MCKENNA Name: KIRA DOTSON Address: [place] [address] Name: RISA DOTSON Address: home [address] [place] [address]
--- OUTSIDE RECORDS SUMMARY | 2023-03-15 12:17 | XMS_ITS | Continuity of Care Document ---
Author Name Unknown Organization [facility] Address [address] [place] [address]- Care Team Providers Care Combined Rail Operator Name Role Phone Allyson Packer MD Primary Care Physici an [place] [facility] [place] [id number] Date(s): 06/12/22 - 09/14/22 [facility] [address] [place] [address]- Attending Physician: Zechariah Reyez MD Admitting Physician: Zechariah Reyez MD Referring Physician: Allyson Packer MD Allergies, Adverse Reactions, Alerts Substance Reaction Severity Status ciprofloxacin Active aspirin Active shellfish hives Active Immunizations Given and Recorded Vaccine Date Status Refusal Reason Influenza Inactive (IM) (oldterm) 1 12/05/07 Given Pneumococcal Vaccine (oldterm) 2 09/30/07 Given 1Admin Note: SANOFI PASTEUR 2Result Comment: [id number] 0519x exp [id number] Medications Advair Diskus 250 mcg-50 mcg inhalation [...] 10/27/21 16:58:00 EDT, Route to Pharmacy Electronically, [facility], 150, cm, 11/05/19 17:54:00 [...] 07/16/22 12:46:00 EDT, Route to Pharmacy Electronically, [facility], 150, cm, 11/03/21 13:03:00 EDT, [...] S Outreach Member Role: PCP Address: Address: [address] [place] [address] [address] [place], [place] [address] Care Team Related Persons Name: SHAHAB HERCULES Address: home [address] [place] [address] Name: ALLYSON MCKENNA Name: KIRA DOTSON Address: [place] [address] Name: RISA DOTSON Address: home [address] [place] [address]
--- OUTSIDE RECORDS SUMMARY | 2023-03-15 12:17 | XMS_ITS | Continuity of Care Document ---
Author Name Unknown Organization [facility] Address [address] [place] [address]- Care Team Providers Care Commercial Installer Name Role Phone Allyson Packer MD Primary Care Physici an [place] [facility] [place] 10/04/22 - 01/05/23 [facility] [address] [place] [address]- Attending Physician: Zechariah Reyez MD Admitting Physician: Zechariah Reyez MD Allergies, Adverse Reactions, Alerts Substance Reaction Severity Status ciprofloxacin Active aspirin Active shellfish hives Active Immunizations Given and Recorded Vaccine Date Status Refusal Reason Influenza Inactive (IM) (oldterm) 1 12/05/07 Given Pneumococcal Vaccine (oldterm) 2 09/30/07 Given 1Admin Note: SANOFI PASTEUR 2Result Comment: [id number] 0519x exp [id number] Medications Advair Diskus 250 mcg-50 mcg inhalation [...] 10/27/21 16:58:00 EDT, Route to Pharmacy Electronically, [facility], 150, cm, 11/05/19 17:54:00 EDT, [...] 07/16/22 12:46:00 EDT, Route to Pharmacy Electronically, [facility], 150, cm, 11/03/21 13:03:00 EDT, [...] Team Personnel Name: Allyson Packer MD Position: [facility] Outreach Member Role: PCP Address: Address: [address] [place] [address] [address] [place] [address]- Care Team Related Persons Name: HERCULES, SHAHAB Address: home [address] [place] [address] Name: ALLYSON MCKENNA Name: KIRA DOTSON Address: [place] [address] Name: RISA DOTSON Address: home [address] [place] [address]
--- OUTSIDE RECORDS SUMMARY | 2023-03-15 12:17 | XMS_ITS | Continuity of Care Document ---
Author Name Unknown Organization [facility] Address [address] [place] [address]- Care Team Providers Care Painter And Decorator Name Role Phone Allyson Packer MD Primary Care Physici an Encounter [facility] [place] [facility] [place] [id number] Date(s): 04/27/22 - 06/17/22 [facility] [address] [place] [address]- Attending Physician: Zechariah Reyez MD Admitting Physician: Zechariah Reyez MD Referring Physician: Allyson Packer MD Allergies, Adverse Reactions, Alerts Substance Reaction Severity Status ciprofloxacin Active aspirin Active shellfish hives Active Immunizations Given and Recorded Vaccine Date Status Refusal Reason Influenza Inactive (IM) (oldterm) 1 12/05/07 Given Pneumococcal Vaccine (oldterm) 2 09/30/07 Given 1Admin Note: SANOFI PASTEUR 2Result Comment: [id number] 0519x exp [id number] Medications Advair Diskus 250 mcg-50 mcg inhalation [...] 10/27/21 16:58:00 EDT, Route to Pharmacy Electronically, [facility], 150, cm, 11/05/19 17:54:00 [...] 01/17/22 12:46:00 EST, Route to Pharmacy Electronically, [facility], 150, cm, 11/03/21 13:03:00 EDT, [...] Team Personnel Name: Allyson Packer MD Position: [facility] Outreach Member Role: PCP Address: Address: [address] [facility] [address] [place] [address]- [place] Care Team Related Persons Name: SHAHAB HERCULES Address: home [address] [place] [address] Name: ALLYSON MCKENNA Name: KIRA DOTSON Address: [place] [address] Name: RISA DOTSON Address: home [address] [place] [address]
--- OUTSIDE RECORDS SUMMARY | 2023-03-15 12:17 | XMS_ITS | Continuity of Care Document ---
Author Name Unknown Organization [facility] ter Address [address] [place] [address]- Care Team Providers Care Security Clerk Name Role Phone Marisela CARREON, Tien Bui Primary Care Physi beth Encounter [facility] [place] Date(s): 05/16/21 - 05/16/[address] [address] Discharge Disposition: A-D/C Home Attending Physician: Pérez Mary MD, I Admitting Physician: Pérez Mary MD, I Referring Physician: Pérez Mary MD, I Allergies, Adverse Reactions, Alerts No Known Allergies Medications calcium (as citrate)-vitamin D 200 mg-250 intl units oral tablet 2 tablet, By Mouth, Daily, 0 Refills, Maintenance, 05/09/21 11:01:00 EDT, Partial fill upon patientrequest if the prescription is for a schedule II opioid drug. Start Date: 05/09/21 Status: Ordered docusate sodium 100 mg oral capsule 100 mg, 1, capsule, By Mouth, 2 times a day, Refills 0, Maintenance, 05/09/21 10:58:00 EDT, Partialfill upon patient request if the prescription is for a schedule II opioid drug. Start Date: 05/09/21 Status: Ordered losartan 25 mg oral tablet 25 mg, 1, tablet, By Mouth, Daily, # 30 tablet, Refills 0, Maintenance, 05/09/21 10:35:00 EDT, Partial fill upon patient request if the prescription is for a schedule II opioid drug. Start Date: 05/09/21 Status: Ordered pantoprazole 40 mg oral delayed release tablet 1 tablet = 40 mg, By Mouth, Daily, # 30 tablet, 0 Refills, Maintenance, 05/09/21 10:57:00 EDT, EC Tablet Start Date: 05/09/21 Status: Ordered Sucralfate = 10 mg, By Mouth, 2 times a day, 0 Refills, Maintenance, 05/09/21 10:55:00 EDT, Partial fill upon patient request if the prescription is for a schedule II opioid drug. Start Date: 05/09/21 Status: Ordered Problem List Condition Effective Dates Status Health Status Inform ant Obese class I(Confirmed) Active Vital Signs Most recent to oldest [Reference Range]: 1 2 3 Height 165 cm (05/16/21 10:34 AM) 165 cm (05/09/21 11:12 AM) Weight 84 kg (05/16/21 10:34 AM) 84 kg (05/09/21 11:12 AM) Oxygen Saturation [94-100 %] 96 % (05/16/21 1:45 PM) 100 % (05/16/21 1:30 PM) 99 % (05/16/21 1:15 PM) Pulse Rate [55-90 bpm] 68 bpm (05/16/21 10:34 AM) Body Mass Index [18.5-24.99] 30.85 *>HHI* (05/16/21 10:34 AM) 30.85 *>HHI* (05/09/21 11:12 AM) Blood Pressure [90-138/55-84 mm Hg] 133/54mm Hg (05/16/21 1:45 PM) 131/56mm Hg (05/16/21 1:30 PM) 123/54mm Hg (05/16/21 1:15 PM) Respiratory Rate [16-30 br/min] 15 br/min *L* (05/16/21 1:45 PM) 21 br/min (05/16/21 1:30 PM) 17 br/min (05/16/21 1:15 PM) Temperature [96.8-100.4 DegF] 97.9 DegF (05/16/21 1:09 PM) 97.3 DegF (05/16/21 10:34 AM) Liters per Minute 4 L/min (05/16/21 1:15 PM) 4 L/min (05/16/21 1:09 PM) Mode of Delivery (Oxygen) Room air (05/16/21 2:15 PM) Room air (05/16/21 1:45 PM) Room air (05/16/21 1:30 PM) Blood pressure sites Arm, left (05/16/21 1:09 PM) Arm, left (05/16/21 10:34 AM) Temperature Route Temporal (05/16/21 1:09 PM) Temporal (05/16/21 10:34 AM) Dry Weight 84 kg (05/09/21 11:12 AM) Weight Obtained Via Patient/family state d (05/09/21 11:12 AM) Dry Weight Obtained Via Patient/family s tated (05/09/21 11:12 AM)
--- OUTSIDE RECORDS SUMMARY | 2023-03-15 12:17 | XMS_ITS | Continuity of Care Document ---
Author Name Unknown Organization [facility] Address [address] [place] [address]- Care Team Providers Care Quarter Backer Name Role Phone Joshua Hampton MD, Ting Osman Primary Care Physici an Encounter [facility] [place] Date(s): 10/27/21 - 11/26/21 [facility] [address] [place] [address]- [place] Allergies, Adverse Reactions, Alerts Substance Reaction Severity Status ciprofloxacin Active aspirin Active shellfish hives Active Immunizations Given and Recorded Vaccine Date Status Refusal Reason Influenza Inactive (IM) (oldterm) 1 12/05/07 Given Pneumococcal Vaccine (oldterm) 2 09/30/07 Given 1Admin Note: SANOFI PASTEUR 2Result Comment: [id number] 0519x exp [id number] Medications Advair Diskus 250 mcg-50 mcg inhalation [...] 10/27/21 16:58:00 EDT, Route to Pharmacy Electronically, [facility], 150, cm, 11/05/19 17:54:00 EDT, [...] 02/08/21 7:45:00 EST, Route to Pharmacy Electronically, [facility], 150, cm, 11/05/19 17:54:00 EDT, [...] Joshua Hampton MD, Ting Osman Address: Address: [address] [place] [address] [address] [place], [place] [address]
--- OUTSIDE RECORDS SUMMARY | 2023-03-15 12:17 | XMS_ITS | Continuity of Care Document ---
Author Name Unknown Organization [facility] Address [address] [place] [address]- Care Team Providers Care Day Camp Counselor Name Role Phone Ting Packer MD Primary Care Physici an [place] [facility] [place](s): 01/12/21 - 03/10/21 [facility] [address] [place] [address]- Attending Physician: Zechariah Reyez MD Admitting Physician: Zechariah Reyez MD Referring Physician: Ting Packer MD Allergies, Adverse Reactions, Alerts Substance Reaction Severity Status ciprofloxacin Active aspirin Active shellfish hives Active Immunizations Given and Recorded Vaccine Date Status Refusal Reason Influenza Inactive (IM) (oldterm) 1 12/05/07 Given Pneumococcal Vaccine (oldterm) 2 09/30/07 Given 1Admin Note: SANOFI PASTEUR 2Result Comment: [id number] 0519x exp [id number] Medications Advair Diskus 250 mcg-50 mcg inhalation [...] 10/21/20 9:36:00 EDT, Route to Pharmacy Electronically, [facility] [...] 02/08/21 7:45:00 EST, Route to Pharmacy Electronically, [facility] [...]
--- OUTSIDE RECORDS SUMMARY | 2023-03-15 12:17 | XMS_ITS | Continuity of Care Document ---
Author Name Unknown Organization [facility] Address [address] [place] [address]- Care Team Providers Care Supervising Nurse Name Role Phone Joshua Hampton MD, Allyson Osman Primary Care Physici an [facility] [place] Date(s): 02/01/23 - 03/03/23 [facility] [address] [place] [address]- [place] Allergies, Adverse Reactions, Alerts Substance Reaction Severity Status ciprofloxacin Active aspirin Active shellfish hives Active Immunizations Given and Recorded Vaccine Date Status Refusal Reason Influenza Inactive (IM) (oldterm) 1 12/05/07 Given Pneumococcal Vaccine (oldterm) 2 09/30/07 Given 1Admin Note: SANOFI PASTEUR 2Result Comment: [id number] 0519x exp [id number] Medications Advair Diskus 250 mcg-50 mcg inhalation [...] 10/27/21 16:58:00 EDT, Route to Pharmacy Electronically, [facility], 150, cm, 11/05/19 17:54:00 EDT, [...] 02/06/23 15:57:00 EST, Route to Pharmacy Electronically, [facility], 150, cm, 08/31/22 16:04:00 EDT, [...] Team Personnel Name: Allyson Packer MD Position: [facility] Outreach Member Role: PCP Address: Address: [address] [place] [address] [address] [place] [address]- Care Team Related Persons Name: SHAHAB HERCULES Address: home [address] [place] [address] Name: ALLYSON MCKENNA Name: KIRA DOTSON Address: [place] [address] Name: RISA DOTSON Address: [address] [address]
--- OUTSIDE RECORDS SUMMARY | 2023-03-15 12:17 | XMS_ITS | Continuity of Care Document ---
Author Name Unknown Organization [facility] Address [address] [place] [address]- Care Team Providers Care Blueprint Cutter Name Role Phone Allyson Packer MD Primary Care Physici an Encounter [facility] [place] ACCT R [id number] Date(s): 03/03/22 - 07/01/22 [facility] [address] [place] [address]- Attending Physician: Kevon Wolff MD Admitting Physician: Kevon Wolff MD Referring Physician: Allyson Packer MD Allergies, Adverse Reactions, Alerts Substance Reaction Severity Status ciprofloxacin Active aspirin Active shellfish hives Active Immunizations Given and Recorded Vaccine Date Status Refusal Reason Influenza Inactive (IM) (oldterm) 1 12/05/07 Given Pneumococcal Vaccine (oldterm) 2 09/30/07 Given 1Admin Note: SANOFI PASTEUR 2Result Comment: [id number] 0519x exp [id number] Medications Advair Diskus 250 mcg-50 mcg inhalation [...] 10/27/21 16:58:00 EDT, Route to Pharmacy Electronically, [facility], 150, cm, 11/05/19 17:54:00 EDT, [...] 01/17/22 12:46:00 EST, Route to Pharmacy Electronically, [facility], 150, cm, 11/03/21 13:03:00 EDT, [...] Team Personnel Name: Allyson Packer MD Position: [facility] Outreach Member Role: PCP Address: Address: [address] [facility] [address] [place] [address]- [place] Care Team Related Persons Name: SHAHAB HERCULES Address: home [address] [place] [address] Name: ALLYSON MCKENNA Name: KIRA DOTSON Address: [place] [address] Name: RISA DOTSON Address: home [address] [facility] [address] [facility] [address] [place] [address]
--- OUTSIDE RECORDS SUMMARY | 2023-03-15 12:17 | XMS_ITS | Continuity of Care Document ---
Author Name Unknown Organization [facility] Address [address] [place] [address]- Care Team Providers Care Can Carrier Name Role Phone Joshua Hampton MD, Allyson Osman Primary Care Physici an Encounter [facility] [place] Date(s): 12/22/19 - 02/13/20 [facility] [address] [place] [address] Attending Physician: Carol Harper NP Admitting Physician: Carol Harper NP Referring Physician: Carol Harper NP Allergies, Adverse Reactions, Alerts Substance Reaction Severity Status ciprofloxacin Active aspirin Active shellfish hives Active Immunizations Given and Recorded Vaccine Date Status Refusal Reason Influenza Inactive (IM) (oldterm) 1 12/05/07 Given Pneumococcal Vaccine (oldterm) 2 09/30/07 Given 1Admin Note: SANOFI PASTEUR 2Result Comment: [id number] 0519x exp [id number] Medications Advair Diskus 250 mcg-50 mcg inhalation [...] 07/13/19 15:19:00 EDT, Route to Pharmacy Electronically, [facility], 150, cm, 03/31/19 14:50:00 EST, Height, [...] 02/09/20 14:20:00 EST, Route to Pharmacy Electronically, [facility], 150, cm, 11/05/19 17:54:00 EDT, Height, [...]
--- OUTSIDE RECORDS SUMMARY | 2023-03-15 12:17 | XMS_ITS | Continuity of Care Document ---
Author Name Unknown Organization [facility] Address [address] [place] [address]- Care Team Providers Care Office Machine Service Supervisor Name Role Phone Allyson Packer MD Primary Care Physici an Encounter [facility] [place]CT R [id number] Date(s): 09/18/22 - 10/27/22 [facility] [address] [place] [address]- Attending Physician: Zechariah Reyez MD Admitting Physician: Zechariah Reyez MD Referring Physician: Allyson Packer MD Allergies, Adverse Reactions, Alerts Substance Reaction Severity Status ciprofloxacin Active aspirin Active shellfish hives Active Immunizations Given and Recorded Vaccine Date Status Refusal Reason Influenza Inactive (IM) (oldterm) 1 12/05/07 Given Pneumococcal Vaccine (oldterm) 2 09/30/07 Given 1Admin Note: SANOFI PASTEUR 2Result Comment: [id number] 0519x exp [id number] Medications Advair Diskus 250 mcg-50 mcg inhalation [...] 10/27/21 16:58:00 EDT, Route to Pharmacy Electronically, [facility], 150, cm, 11/05/19 17:54:00 EDT, [...] 07/16/22 12:46:00 EDT, Route to Pharmacy Electronically, [facility], 150, cm, 11/03/21 13:03:00 EDT, [...] S Outreach Member Role: PCP Address: Address: [address] [place] [address] [address] [place], [place] [address] Care Team Related Persons Name: SHAHAB HERCULES Address: home [address] [place] [address] Name: ALLYSON MCKENNA Name: KIRA DOTSON Address: [place] [address] Name: RISA DOTSON Address: home [address] [place] [address]
--- OUTSIDE RECORDS SUMMARY | 2023-03-15 12:17 | XMS_ITS | Continuity of Care Document ---
Author Name Unknown Organization [facility] Address [address] [place] [address]- Care Team Providers Care Baked Goods Stock Clerk Name Role Phone Ellen Sheppard MD Primary Care Physician Encounter [facility] [place] Date(s): 05/19/19 - 05/29/19 [facility] [address] [place] [address] [facility] Attending Physician: Admtr, Garret8 Admitting Physician: AdmtrRosina Referring Physician: Admtr, Ar8 Allergies, Adverse Reactions, Alerts Substance Reaction Severity Status ciprofloxacin Active aspirin Active shellfish hives Active Immunizations Given and Recorded Vaccine Date Status Refusal Reason Influenza Inactive (IM) (oldterm) 1 12/05/07 Given Pneumococcal Vaccine (oldterm) 2 09/30/07 Given 1Admin Note: SANOFI PASTEUR 2Result Comment: [id number] 0519x exp [id number] Medications Advair Diskus 250 mcg-50 mcg inhalation [...] 07/18/18 15:19:22 EDT, Route to Pharmacy Electronically, [id number], [facility] Start Date: 07/18/18 Stop Date: 07/13/19 Status: [...] 03/05/19 15:15:00 EST, Route to Pharmacy Electronically, [facility], 150, cm, 01/10/1912:50:00 EST, Height, 79.5, kg, [...]
--- OUTSIDE RECORDS SUMMARY | 2023-03-15 12:17 | XMS_ITS | Continuity of Care Document ---
Author Name Unknown Organization [facility] Address [address] [place] [id number]- Care Team Providers Care Sand Digger Name Role Phone Allyson Packer MD Primary Care Physici an [place] [facility] [place] [id number] Date(s): 12/08/22 - 02/02/23 [facility] [address] [place] [id number] Attending Physician: Zechariah Reyez MD Admitting Physician: Zechariah Reyez MD Referring Physician: Allyson Packer MD Allergies, Adverse Reactions, Alerts Substance Reaction Severity Status ciprofloxacin Active aspirin Active shellfish hives Active Immunizations Given and Recorded Vaccine Date Status Refusal Reason Influenza Inactive (IM) (oldterm) 1 12/05/07 Given Pneumococcal Vaccine (oldterm) 2 09/30/07 Given 1Admin Note: SANOFI PASTEUR 2Result Comment: [id number] Medications Advair Diskus 250 mcg-50 mcg inhalation [...] 16:58:00 EDT, Route to Pharmacy Electronically, [facility], 150, cm, 11/05/19 17:54:00 [...] 07/16/22 12:46:00 EDT, Route to Pharmacy Electronically, [facility], 150, cm, 11/03/21 13:03:00 [...] Team Personnel Name: Allyson Packer MD Position: [facility] Outreach Member Role: PCP Address: Address: [address] [place] [address] [address] [place] [address]- [place] Care Team Related Persons Name: SHAHAB HERCULES Address: home [address] [place] [address] Name: ALLYSON MCKENNA Name: KIRA DOTSON Address: [place] [address] Name: RISA DOTSON Address: home [address] [place] [id number]
--- NOTE | 2023-03-15 13:12 | P.DS_ITS ---
DS: Providers Provider Date of Service: 03/15/23 Date of admission: 03/14/23 12:36 Date of discharge: 03/15/23 Primary care physician: Dara Ricardo MD Admitting clinician: Mayra Kang Attending physician on admission: Shakir Roland Consults: 03/15/23 08:44 Consult to Cardiology Routine Consulting Provider: [facility] [place] [facility] Reason for consultation: mod-severe aortic stenosis, sob Attending physician on discharge: [facility] Discharging clinician: Mayra Kang DS: Transfer Hospital Acceptance Reason for Transfer: severe aortic stensis Name of Facility: [facility] Accepting Provider: Dr. 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 Denies any associated fevers, chills, st, congestion, abd pain, n/v/d, wheezing, lightheadedness, or chest pain. No known sick contacts or recent travel. States she has been working on quitting cigarettes and has not smoked in 5 days. Recently had been down to 1-2 cigs per day but historically smoked 1/2ppd with 30+pack year history. Follows with Dr. Simpson in pulmonology for asthma/copd overlap. Has a chronic cough, unchanged, currently nonproductive. On arrival, hypoxic to 89%, 95% on RA on admission. Vitals otherwise stable. No leukocytosis. Renal function baseline, lytes normal except for K 3.0, likely due to albuterol use. CXR negative. In ED, given 125mg IV methylprednisolone, duonebs, 2g IV mag, and 60meq kcl. Hospital course: Pt observed overnight for asthma/copd exacerbation. Treated with IV steroids and duonebs with some improvement in wheezing, though lungs remains slightly diminished with expiratory wheezing. Grade IV/ systolic ejection murmur auscultated and echocardiogram ordered showing severe aortic stenosis. Cardiology was consulted given ongoing sob, likely multifactorial r/t ashtma/copd exacerbation and severe . No near syncope/syncope. 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 Wolff, and given recent missed appointments, patient will be transferred to [facility] for further severe assessment. This was explained to pt who agrees with transfer. #Asthma/COPD with acute exacerbation with acute respiratory distress- improved but lungs still diminished b/l -no hypoxia. negative for covid, flu, rsv -viral resp panel negative -40mg IV methylprednisolone BID (initiated 03/14) -duonebs q4h while awake -albuterol prn -cxr negative. no productive cough. abx not indicated at this time -continue maintenance inhalers #Severe aortic stenosis -?contributing to symptoms -repeat echo shows normal LV systolic function with EF 60-65% with severe valve stenosis, gradients in severe range. Larger than expected valve area likely erroneous d/t lvot vti measurement -Cards discussed case with [facility] device clinic. Pt to be transferred [place] [facility] further assessment of severe given recent missed appts #Acute hypokalemia- resolved -due to albuterol use -repleted -follow lytes #non insulin dependent type 2 diabetes- without hyperglycemia -poc glucose, diabetic diet -humalog on sliding scale #Essential hypertension -continue hydrochlorothiazide #Mood disorder -Continue home mood stabilizers #MARY -CPAP at bedtime #Tobacco use disorder -counseled regarding cessation. continue nicorette gum prn #hx of complete heart block -s/p pacemaker Time spent discussing smoking cessation with patient: 3 to 10 minutes Status at Discharge Functional status at discharge: uses cane/walker Overall status at discharge: patient is progressing back to baseline Time Attestation Discharge coordination time: Greater than 30 minutes Quality: Safe Use of Opioids Does Pt have an Active Cancer Diagnosis on the Problem List?: No Quality: Stroke Does the patient have a stroke diagnosis?: No Physical Exam Vital Signs: Vital Signs: Last Vital Signs Temp 97.5 F 03/15/23 12:00 Pulse 84 03/15/23 12:00 Resp 18 03/15/23 12:00 BP 112/59 L 03/15/23 12:00 Pulse Ox 94 03/15/23 12:00 O2 Del Method Room Air 03/15/23 12:00 BMI result Body Mass Index 25.3 Constitutional - Awake and Alert, No apparent distress Eyes - PERRLA, EOMI Cardiovascular - S1S2, IV/ systolic ejection murmur, No edema Respiratory - Normal lung expansion, Normal respiratory effort, No respiratory distress, diminished lung sounds expiratory wheezing bilaterally Gastrointestinal - NT / ND; +BS; No rebound or guarding Extremities - no calf tenderness bilaterally, no swelling Skin - Warm/Dry Neurological - Alert & oriented x3, CN II-XII in tact, 5/5 strength BUE and BLE Psychological - Appropriate affect DS: Data Data Completed and Pending Completed studies during hospitalization [Text1]: Procedures Assistance with Respiratory Ventilation, Less than 24 Consecutive Hours, Continuous Positive Airway Pressure (10/21/22) Labs on day of discharge: Laboratory Results - last 24 hr 03/14/23 03/14/23 03/14/23 14:23 14:24 16:06 Sodium 139 Potassium 4.0 D Chloride 100 Carbon Dioxide 30 H Anion Gap 13 BUN 8 L Creatinine 0.66 Estim Creat Clear Calc 69.6 Estimated GFR > 60 POC Glucose 169 H Random Glucose 154 H Calcium 9.9 Total Bilirubin AST ALT Alkaline Phosphatase Troponin I High Sens 16.1 Total Protein Albumin Respiratory Panel Damico See Note Adenovirus (Rapid PCR) Not Detected B.pert (TEM-PCR) Not Detected B.parapertussis DNA PCR Not Detected C. pneumoniae DNA (PCR) Not Detected Coronavirus OC43 (PCR) Not Detected Coronavirus HKU1 (PCR) Not Detected Coronavirus 229E (PCR) Not Detected Coronavirus NL63 (PCR) Not Detected Human Metapneumovir PCR Not Detected Influenza A (RT-PCR) Not Detected Influenza B (RT-PCR) Not Detected M. pneumoniae (PCR) Not Detected Parainfluenza 1 (PCR) Not Detected Parainfluenza 2 (PCR) Not Detected Parainfluenza 3 (PCR) Not Detected Parainfluenza 4 (PCR) Not Detected RSV (PCR) Not Detected Entero/Rhino (PCR) Not Detected SARS-CoV-2 RNA (RT-PCR) Not Detected 03/14/23 03/15/23 03/15/23 20:01 07:23 07:33 Sodium 141 Potassium 4.6 Chloride 104 Carbon Dioxide 28 Anion Gap 14 BUN 12 Creatinine 0.56 Estim Creat Clear Calc 82.0 Estimated GFR > 60 POC Glucose 143 H 124 H Random Glucose 129 H Calcium 9.9 Total Bilirubin 0.2 AST 17 ALT 8 Alkaline Phosphatase 62 Troponin I High Sens Total Protein 6.7 Albumin 3.4 L Respiratory Panel Damico Adenovirus (Rapid PCR) B.pert (TEM-PCR) B.parapertussis DNA PCR C. pneumoniae DNA (PCR) Coronavirus OC43 (PCR) Coronavirus HKU1 (PCR) Coronavirus 229E (PCR) Coronavirus NL63 (PCR) Human Metapneumovir PCR Influenza A (RT-PCR) Influenza B (RT-PCR) M. pneumoniae (PCR) Parainfluenza 1 (PCR) Parainfluenza 2 (PCR) Parainfluenza 3 (PCR) Parainfluenza 4 (PCR) RSV (PCR) Entero/Rhino (PCR) SARS-CoV-2 RNA (RT-PCR) 03/15/23 11:16 Sodium Potassium Chloride Carbon Dioxide Anion Gap BUN Creatinine Estim Creat Clear Calc Estimated GFR POC Glucose 158 H Random Glucose Calcium Total Bilirubin AST ALT Alkaline Phosphatase Troponin I High Sens Total Protein Albumin Respiratory Panel Damico Adenovirus (Rapid PCR) B.pert (TEM-PCR) B.parapertussis DNA PCR C. pneumoniae DNA (PCR) Coronavirus OC43 (PCR) Coronavirus HKU1 (PCR) Coronavirus 229E (PCR) Coronavirus NL63 (PCR) Human Metapneumovir PCR Influenza A (RT-PCR) Influenza B (RT-PCR) M. pneumoniae (PCR) Parainfluenza 1 (PCR) Parainfluenza 2 (PCR) Parainfluenza 3 (PCR) Parainfluenza 4 (PCR) RSV (PCR) Entero/Rhino (PCR) SARS-CoV-2 RNA (RT-PCR) Discharge Plan Discharge Anticipated Discharge Date/Time: 03/15/23 13:52 Patient Disposition: Xfer Acute [facility] Discharge Diagnosis: asthma/copd exacerbation, severe Referrals: Kevon Wolff MD [Physician] - 1 Week Wally Simpson MD [Physician] - 1 Week Dara Ricardo MD [Primary Care Provider] - 1 Week Discharge Medications: New ipratropium-albuterol 0.5 mg-3 mg(2.5 mg base)/3 mL Solution For Nebulization 3 ml inhalation RQ4H WHILE AWAKE Qty: 1 0RF albuterol sulfate 2.5 mg /3 mL (0.083 %) Solution For Nebulization 2.5 mg inhalation Q2H PRN (Reason: Shortness Of Breath/Wheezing) Qty: 1 0RF nicotine (polacrilex) 2 mg Gum 2 mg buccal Q2H PRN (Reason: Nicotine Cravings) Qty: 1 0RF codeine-guaifenesin 10-100 mg/5 mL Liquid 5 ml PO Q4H Qty: 1 0RF Solu-Medrol (PF) 40 mg/mL Recon Soln 40 mg IVPUSH Q12H Qty: 1 0RF Continued acetaminophen 650 mg tablet extended release 650 mg PO Q8H PRN (Reason: for pain) Qty: 90 3RF tiotropium bromide [Spiriva with HandiHaler] 18 mcg capsule, w/inhalation device 1 cap inhalation DAILY melatonin 5 mg tablet 5 mg PO BEDTIME PRN (Reason: insomnia) montelukast 10 mg tablet 10 mg PO BEDTIME bisacodyl 5 mg tablet,delayed release (DR/EC) 10 mg PO BEDTIME gabapentin 100 mg capsule 100 mg PO TID sertraline 50 mg tablet 50 mg PO DAILY calcium carbonate-vitamin D3 600 mg-10 mcg (400 unit) tablet 1 tab PO DAILY hydrochlorothiazide 12.5 mg tablet 12.5 mg PO DAILY clopidogrel 75 mg tablet 75 mg PO DAILY amitriptyline 25 mg tablet 25 mg PO BEDTIME folic acid 1 mg tablet 1 mg PO DAILY cyanocobalamin (vitamin B-12) 1,000 mcg tablet 1,000 mcg PO DAILY albuterol sulfate 2.5 mg /3 mL (0.083 %) solution for nebulization 2.5 mg inhalation Q4-6H PRN (Reason: wheezing) Discharge Orders: Discharge Order (Routine); Ordered 03/15/23 Ordered By: Mayra Kang Diet: Advance to usual diet Activity on Discharge: As tolerated Stand Alone Forms: Patient Portal Discharge page Care Plan Goals: Transfer to [facility] for further management of asthma/copd overlap exacerbation and severe Health Concerns: Asthma/COPD overlap Severe aortic stenosis Plan of Treatment: Transfer to [facility] for further managment of asthma/copd exacerbation and further severe assessment with cardiology Assessment: See above. See dc summary
--- NOTE | 2023-03-15 14:22 | MHC.CM.PN ---
DP: PER PROVIDER, PT WILL BE AN ACUTE TRANSFER TO [facility] VIA ALS.
[2023-03-15 16:09] LABS: Glucose, Whole Blood 146 mg/dL (60-115)
== END 2023-03-15 18:03 | disposition short-term general hospital (02) | DRG 140 ==
LOC: HO.ED 11:31 → HO.EDOVER 12:54 → HO.S3 14:41 → HO.EDOVER 03-15 12:13
PROVIDERS: Emergency Medicine; Hospitalist; Physician Assistant; Admitting Provider Physician Assistant; Emergency Provider Emergency Medicine; PCP Internal Medicine; Visit Provider Physician Assistant
DX: J44.1 Chronic obstructive pulmonary disease with (acute) exacerbation (principal); I44.2 Atrioventricular block, complete; J45.901 Unspecified asthma with (acute) exacerbation; F17.210 Nicotine dependence, cigarettes, uncomplicated; I10 Essential (primary) hypertension; F39 Unspecified mood [affective] disorder; E87.6 Hypokalemia; I35.0 Nonrheumatic aortic (valve) stenosis; G47.33 Obstructive sleep apnea (adult) (pediatric); R06.03 Acute respiratory distress; M06.9 Rheumatoid arthritis, unspecified; Z71.6 Tobacco abuse counseling; Z91.199 Patient's noncompliance with other medical treatment and regimen due to unspecified reason; Z95.4 Presence of other heart-valve replacement; Z20.822 Contact with and (suspected) exposure to COVID-19; Z95.0 Presence of cardiac pacemaker; Z79.02 Long term (current) use of antithrombotics/antiplatelets; Z79.899 Other long term (current) drug therapy
CPT/HCPCS: 36415; 71045; 80048; 80053; 82947; 83735; 83880; 84484; 85025; 87502; 87633; 87635; 93005; 93306; 94640; 94660; 99221; 99285; J1650; J2270; J2920; J2930; J3475; Q9957

== ENCOUNTER → 2023-03-14 06:36 | Outpatient (BNV) | payer MEDICAID, SELFPAY | PROVIDERS: Admitting Provider Physician Assistant; Emergency Provider Emergency Medicine; Visit Provider Internal Medicine | DX: R94.31 Abnormal electrocardiogram [ECG] [EKG] (principal) | CPT/HCPCS: 93010 ==

== ENCOUNTER 2023-03-14 12:36 | Outpatient (BNV) | payer MEDICAID, SELFPAY | END 2023-03-15 07:00 | PROVIDERS: Admitting Provider Physician Assistant; Emergency Provider Emergency Medicine; PCP Internal Medicine; Visit Provider Internal Medicine | DX: I35.2 Nonrheumatic aortic (valve) stenosis with insufficiency (principal) | CPT/HCPCS: 93306 ==

== ENCOUNTER → 2023-03-14 12:36 | Outpatient (BNV) | payer MEDICAID, SELFPAY | PROVIDERS: Admitting Provider Physician Assistant; Emergency Provider Emergency Medicine; PCP Internal Medicine; Visit Provider Internal Medicine | DX: J44.1 Chronic obstructive pulmonary disease with (acute) exacerbation (principal); J45.901 Unspecified asthma with (acute) exacerbation; I35.0 Nonrheumatic aortic (valve) stenosis; Z95.0 Presence of cardiac pacemaker | CPT/HCPCS: 99223 ==

== ENCOUNTER → 2023-03-14 12:36 | Outpatient (BNV) | payer MEDICAID, SELFPAY | PROVIDERS: Admitting Provider Physician Assistant; Emergency Provider Emergency Medicine; PCP Internal Medicine; Visit Provider Physician Assistant | DX: I35.0 Nonrheumatic aortic (valve) stenosis (principal); J45.901 Unspecified asthma with (acute) exacerbation | CPT/HCPCS: 99223; 99232; 99239 ==

== ENCOUNTER 2023-05-21 02:42 | Inpatient (IN) | payer MEDICAID, SELFPAY ==
[2023-05-21] VITALS (17 sets, daily range): BP systolic 123–180; BP diastolic 61–95; PULSE 60–100; RESP 17–37; TEMP 36.2–37.2; O2SAT 73–100; BMI 26.1
--- NOTE | ~2023-05-21 | XR_ITS ---
EXAMINATION: XR CHEST CLINICAL INFORMATION: Shortness of breath. COMPARISON: 03/14/2023. TECHNIQUE: Frontal view of the chest was obtained. FINDINGS: The cardiomediastinal silhouette is stable. There has been a previous median sternotomy. A single chamber pacer lead is again noted in place. There is no focal lung consolidation or pleural effusion. The bony structures and soft tissues are unremarkable. XR/XR chest 1V IMPRESSION: No evidence for acute disease in the chest.
--- NOTE | 2023-05-21 02:51 | ECG_ITS ---
Test Reason : SOB Blood Pressure : / mmHG Vent. Rate : 061 BPM Atrial Rate : 042 BPM P-R Int : 000 ms QRS Dur : 146 ms QT Int : 474 ms P-R-T Axes : -45 -75 097 degrees QTc Int : 477 ms Ventricular-paced rhythm Abnormal ECG When compared with ECG of 14-MAR-2023 11:09, Vent. rate has decreased BY 19 BPM Referred By: Figueroa Padilla Electronically Signed By:Tony Borrero
--- NOTE | 2023-05-21 02:56 | ED_ITS ---
HPI - General Adult General Chief complaint: Dyspnea Stated complaint: DIFICULTY BREATHING Time Seen by Provider: 05/21/23 02:50 History of Present Illness HPI narrative: The patient is a 62-year-old female with a history of multiple medical problems including multiple hospitalizations for asthma/COPD. She also has a history of significant cardiac problems including aortic valvular disease following infective endocarditis. I believe she has significant aortic stenosis. She has a pacemaker. The patient says that she is felt short of breath for several days but much worse over the last 24 hours. An ambulance was door distress and was brought to the hospital Related Data Home Medications Medication Instructions Recorded Confirmed amitriptyline 25 mg tablet 25 mg PO BEDTIME 07/03/22 03/14/23 bisacodyl 5 mg tablet,delayed 10 mg PO BEDTIME 07/03/22 03/14/23 release calcium carbonate 600 mg-vitamin 1 tab PO DAILY 07/03/22 03/14/23 D3 10 mcg (400 unit) tablet clopidogrel 75 mg tablet 75 mg PO DAILY 07/03/22 03/14/23 cyanocobalamin (vitamin B-12) 1,000 mcg PO DAILY 07/03/22 03/14/23 1,000 mcg tablet folic acid 1 mg tablet 1 mg PO DAILY 07/03/22 03/14/23 gabapentin 100 mg capsule 100 mg PO TID 07/03/22 03/14/23 hydrochlorothiazide 12.5 mg tablet 12.5 mg PO DAILY 07/03/22 03/14/23 montelukast 10 mg tablet 10 mg PO BEDTIME 07/03/22 03/14/23 sertraline 50 mg tablet 50 mg PO DAILY 07/03/22 03/14/23 albuterol sulfate 2.5 mg/3 mL 2.5 mg inhalation Q4-6H PRN 11/28/22 03/14/23 (0.083 %) solution for nebulization wheezing melatonin 5 mg tablet 5 mg PO BEDTIME PRN insomnia 03/14/23 03/14/23 tiotropium bromide 18 mcg capsule 1 cap inhalation DAILY 03/14/23 03/14/23 with inhalation device (Spiriva with HandiHaler) Previous Rx's Medication Instructions Recorded acetaminophen 650 mg 650 mg PO Q8H PRN for pain #90 tabs 01/04/23 tablet,extended release albuterol sulfate 2.5 mg/3 mL 2.5 mg (3 mL) inhalation Q2H PRN 03/15/23 (0.083 %) solution for nebulization Shortness Of Breath/Wheezing #1 mL codeine 10 mg-guaifenesin 100 mg/5 5 ml PO Q4H #1 mL 03/15/23 mL oral liquid ipratropium 0.5 mg-albuterol 3 mg 3 ml inhalation RQ4H WHILE AWAKE 03/15/23 (2.5 mg base)/3 mL nebulization #1 mL soln methylprednisolone sod suc(PF) 40 40 mg IVPUSH Q12H #1 ea 03/15/23 mg/mL solution for injection (Solu-Medrol (PF)) nicotine (polacrilex) 2 mg gum 2 mg buccal Q2H PRN Nicotine 03/15/23 Cravings #1 ea Allergies Allergy/AdvReac Type Severity Reaction Status Date / Time latex [LATEX] Allergy Severe DIFFICULTY Verified 03/12/23 10:21 BREATHING aspirin [Aspirin] Allergy Intermediate ITCHING, Verified 03/12/23 10:21 itchiness ciprofloxacin [From CIPRO] Allergy Intermediate DIAPHORESIS Verified 03/12/23 10:21 /PURITIS Penicillins [PENICILLINS] Allergy Unknown UNKNOWN Verified 03/12/23 10:21 HEMALATHA Inhibitors AdvReac Intermediate COUGH Verified 03/12/23 10:21 [HEMALATHA INHIBITORS] Review of Systems 2 Review of Systems: Yes all other systems are reviewed and are negative [facility] Past Medical History Medical History Asthma with exacerbation Smoking Restrictive airway disease MARY (obstructive sleep apnea) COPD (chronic obstructive pulmonary disease) MARY on CPAP Reactive airways dysfunction syndrome Rheumatoid arthritis Fibromyalgia GERD (gastroesophageal reflux disease) MARY (obstructive sleep apnea) Aortic valve endocarditis COPD (chronic obstructive pulmonary disease) COPD exacerbation Overactive bladder Bronchitis Allergic rhinitis COPD (chronic obstructive pulmonary disease) Asthma Hx of cardiac pacemaker Hx of migraines Hx of coronary artery disease History of urinary incontinence Hx of essential hypertension History of depression Hx of drug abuse Hx of hyperlipidemia Hx of allergic rhinitis History of enuresis Hx of osteoarthritis Hx of pilonidal cyst Family history of GERD History of arthritis Hx of diabetes mellitus Surgical History History of surgical removal of pilonidal cyst Hx of bilateral cataract extraction Hx of colonoscopy History of cystoscopy History of hysterectomy Hx of aortic valve replacement Hx laparoscopic cholecystectomy History of epidermal inclusion cyst excision Social History Social History Household Members: Family Household Members Other:: self Housing: Apartment Do you presently have visiting nurse or other home services: Yes (Home health aide) Alcohol intake: former Comment: refusing alarms Patient Tobacco Use Status: Former Tobacco user Tobacco use type: Cigarette Cigarettes Per Day: 3 Smoked in Last 30 Days: No e-Cigarette/Vaping Use: Currently Using Second Hand Smoke Exposure: Yes Use of substances other than those prescribed or required for medical reasons: No Advance Directives: Yes Advance Directives on File: Yes Advance Directives Date on File: 11/08/21 Patient : No service: No Current occupational status: unemployed and disabled Physical Exam ED Vital Signs: Vital Signs - 24 hr 05/21/23 03:03 05/21/23 03:07 05/21/23 03:08 Pulse Rate 60 64 Respiratory Rate 22 H 37 H 36 H Blood Pressure 180/94 H Pulse Oximetry 100 Oxygen Delivery Method BiPAP Fraction of Inspired Oxygen 100 05/21/23 03:11 05/21/23 03:12 05/21/23 03:38 Pulse Rate 66 Respiratory Rate 36 H 24 H 33 H Blood Pressure 140/95 H Pulse Oximetry 100 Oxygen Delivery Method BiPAP Fraction of Inspired Oxygen 05/21/23 04:00 05/21/23 04:19 05/21/23 04:36 Pulse Rate 61 67 60 Respiratory Rate 30 H 29 H 30 H Blood Pressure 149/91 H Pulse Oximetry 99 Oxygen Delivery Method BiPAP Fraction of Inspired Oxygen 05/21/23 06:00 Pulse Rate 69 Respiratory Rate 24 H Blood Pressure 150/83 H Pulse Oximetry 96 Oxygen Delivery Method Room Air Fraction of Inspired Oxygen BMI result Body Mass Index 26.1 Const Other: The patient is a chronically ill-appearing 62-year-old who arrived looking acutely short of breath with tachypnea and increased work of breathing. HENMT Other: Face is symmetrical. Mucous membranes moist. Eyes Other: Pupils are round equal, conjunctivae are clear Neck Other: No obvious JVD Resp Other: The patient was tachypneic with increased work of breathing. Loud wheezing bilaterally. Cardio Rate: regular rate Rhythm: regular rhythm Heart sounds: S1 normal heart sound present and S2 normal heart sound present GI Other: Abdomen is soft and nontender Skin Other: Skin is pale and dry Neuro Other: The patient was awake and alert. Speech seems clear. Face was symmetrical. Tone was symmetrical. No obvious focal neurological deficit Extrem Other: No calf swelling or asymmetry, no calf tenderness, no peripheral edema Medications Administered Discontinued Medications Generic Name Dose Route Start Last Admin Trade Name Yovanyq PRN Reason Stop Dose Admin Albuterol/Ipratropium 3 ml 05/21/23 02:56 05/21/23 03:07 Albuterol/Iprat 2.5/0.5mg 3 Ml Ampul.Neb INHALE 05/21/23 02:57 3 ml ONCE ONE Administration Albuterol/Ipratropium 3 ml 05/21/23 03:52 05/21/23 04:19 Albuterol/Iprat 2.5/0.5mg 3 Ml Ampul.Neb INHALE 05/21/23 03:53 3 ml ONCE ONE Administration Albuterol Sulfate 5 mg/ 0 mg 05/21/23 04:31 05/21/23 04:36 Albuterol/Ipratropium 3 ml INHALE 05/21/23 04:32 2.5 each ONCE ONE Administration Sodium Chloride 1,000 mls @ 999 mls/hr 05/21/23 04:00 05/21/23 05:45 Ns IV 05/21/23 05:00 Infused .Q1H1M PATTI Infusion Magnesium Sulfate 2 gm in 50 mls @ 150 mls/hr 05/21/23 04:55 05/21/23 05:45 Magnesium Sulfate/H2o IV 05/21/23 05:14 Infused ONCE ONE Infusion Methylprednisolone Sodium Succinate 60 mg 05/21/23 03:12 05/21/23 03:23 Methylprednisolone Sod Succ 125 Mg/2 Ml Vial IVPUSH 05/21/23 03:13 60 mg ONCE ONE Administration Nitroglycerin 1 inch 05/21/23 02:52 05/21/23 03:10 Nitroglycerin 2 % Oint 1 Gm Packet TRANSDERMA 05/21/23 02:53 1 inch ONCE ONE Administration Medical Decision Making Medical Decision Making MDM Narrative: The patient arrived acutely short of breath. At 1st the patient indicated she did not have a history of COPD or asthma and I was concerned that she might be in acute pulmonary edema since she was hypertensive. She was placed on BiPAP and given nitroglycerin paste. However after reviewing her chart it is clear she has been hospitalized multiple times for COPD. She was given bronchodilator treatments and asthma and magnesium. After being on BiPAP for about 2 hours we were able to take her off BiPAP. Currently she is off BiPAP on 2 L nasal cannula with oxygen saturations of around 95-97. She remains tachypneic at around 25-30 breaths per minute but she does not appear uncomfortable and she was able to fall asleep. T think she will need to be admitted once again for further management. She will be admitted to the hospitalist service. She denies having had a fever and her workup is not suggestive of a significant infectious component. Her WBC is 8.9 with 60% neutrophils, 20% lymphs, 8 % monos, and 11% eosinophils. CRP slightly elevated at 4. Lab Data 05/21/23 03:00 05/21/23 03:55 Labs: Lab Results 05/21/23 05/21/23 05/21/23 Range/Units 03:00 03:04 03:55 WBC 8.9 (4.8-10.8) X10*3/uL RBC 5.51 H (4.20-5.50) X10*6/uL Hgb 15.7 (12.0-16.0) g/dl Hct 48.5 H (37.0-47.0) % MCV 88.0 (80.0-98.0) fL MCH 28.5 (27.0-33.0) pg MCHC 32.4 (31.0-35.0) g/dl RDW 13.6 (11.0-16.0) % Plt Count 359 (160-400) X10*3/uL MPV 9.4 (9.4-12.3) fL Immature Gran % (Auto) 0.3 (0.0-0.4) % Neut % (Auto) 59.5 (45-73) % Lymph % (Auto) 20.6 (20-40) % Brooke % (Auto) 8.1 (2-11) % Eos % (Auto) 11.1 H (0-4) % Baso % (Auto) 0.4 (0-2) % Lymph # (Auto) 1.8 (1.2-4.9) X10*3/uL Brooke # (Auto) 0.7 (0.1-1.2) X10*3/uL Eos # (Auto) 1.0 H (0.0-0.4) X10*3/uL Baso # (Auto) 0.0 (0.0-0.2) X10*3/uL Abs Immat Gran (auto) 0.03 (0.00-0.03) X10*3/uL Absolute Neuts (auto) 5.3 (2.0-8.3) x10*3/uL Absolute Nucleated RBC 0.000 (0.0-0.012) X10*3/uL Nucleated RBC % (auto) 0.0 (0.0-0.2) /100WBC PT 11.8 (11.1-13.3) SEC INR 1.0 (0.9-1.1) VBG pH 7.33 (7.32-7.43) VBG pCO2 68 mmHg VBG pO2 53 mmHg VBG HCO3 36 H (22-26) mmol/L VBG O2 Saturation 79.0 % VBG Base Excess 7.0 mmol/L Sodium 142 (135-145) mmol/L Potassium 3.5 D (3.3-5.1) mmol/L Chloride 105 (96-108) mmol/L Carbon Dioxide 28 (22-29) mmol/L Anion Gap 13 (12-20) BUN 14 (9-16) mg/dL Creatinine 0.75 (0.5-1.4) mg/dL Estim Creat Clear Calc 62.1 Estimated GFR > 60 Random Glucose 138 H (60-115) mg/dL Calcium 9.4 (8.4-10.2) mg/dL Magnesium 1.6 (1.6-2.6) mg/dL Total Bilirubin 0.2 (0.0-1.0) mg/dL Direct Bilirubin 0.2 (0.0-0.5) mg/dL AST 17 (5-31) U/L ALT 11 (0-31) U/L Alkaline Phosphatase 77 (39-117) U/L Troponin I High Sens 17.9 H (<3.5-17.0) ng/L C-Reactive Protein 3.98 H (< or = 0.50) mg/dL B-Natriuretic Peptide 79 (<100) pg/mL Total Protein 6.7 (6.5-8.0) g/dL Albumin 3.7 (3.5-5.0) g/dL Influenza Type A (PCR) NEGATIVE (Negative) Influenza Type B (PCR) NEGATIVE (Negative) RSV RNA Qual (PCR) NEGATIVE (Negative) SARS-CoV-2 RNA (RT-PCR) NEGATIVE (Negative) Independent Interpretation I performed an independent interpretation of an: EKG Interpretation: EKG at 0301 shows a ventricular paced rhythm at 61 beats per minute. Critical Care Time Critical Care Time Critical Care Time: Yes Total Critical Care Time: 45 Attestation: The patient was critically ill with a high probability of imminent or life- threatening deterioration. ?I spent greater than 30 minutes of discontinuous time evaluating the patient, delivering critical care at the bedside, discussing evaluating data with consultants. ?Critical care time does not include time spent performing separately billable procedures or teaching. ?Time spent performing critical care with 45 minutes. Discharge Plan Discharge Clinical Impression: Acute exacerbation of chronic obstructive pulmonary disease Patient Disposition: Admitted As Inpatient
[2023-05-21 03:05] LABS: MANUAL DIFF FLAG NO
[2023-05-21 03:07] LABS: Basophils Percent Auto 0.4 % (0-2); Eosinophils Percent Auto 11.1 % (0-4); Hematocrit 48.5 % (37.0-47.0); Hemoglobin 15.7 g/dl (12.0-16.0); Imm Gran Abs Auto 0.03 X10*3/uL (0.00-0.03); Imm Gran Pct Auto 0.3 % (0.0-0.4); Lymphocytes Absolute Auto 1.8 X10*3/uL (1.2-4.9); Lymphocytes Percent Auto 20.6 % (20-40); Mean Corpuscular HGB Conc 32.4 g/dl (31.0-35.0); Mean Corpuscular Hemoglobin 28.5 pg (27.0-33.0); Mean Platelet Volume 9.4 fL (9.4-12.3); Monocytes Absolute Auto 0.7 X10*3/uL (0.1-1.2); Monocytes Percent Auto 8.1 % (2-11); Neutrophils Absolute Auto 5.3 x10*3/uL (2.0-8.3); Neutrophils Percent Auto 59.5 % (45-73); Platelet Count 359 X10*3/uL (160-400); Red Blood Count 5.51 X10*6/uL (4.20-5.50); Red Cell Distribution Width 13.6 % (11.0-16.0); White Blood Count 8.9 X10*3/uL (4.8-10.8)
[2023-05-21] MEDS: Albuterol/Iprat 2.5/0.5MG 3 ML AMPUL.NEB INHALE ×5 (03:07→19:47)
[2023-05-21 03:09] LABS: Venous Blood Gas Refer to POC result
[2023-05-21] MEDS: Nitroglycerin 2 % Oint 1 GM Packet 1 INCH TRANSDERMA (03:10)
[2023-05-21 03:13] LABS: Prothrombin Time 11.8 SEC (11.1-13.3)
[2023-05-21 03:16] LABS: VBG HCO3 36 mmol/L (22-26); VBG pCO2 68 mmHg; VBG pH 7.33 (7.32-7.43); VBG pO2 53 mmHg
[2023-05-21] MEDS: methylPREDNISolone Sod Succ 125 MG/2 ML VIAL 60 MG IVPUSH (03:23)
[2023-05-21 03:42] LABS: B Type Natriuretic Peptide 79 pg/mL (<100)
[2023-05-21 03:44] LABS: Influenza A PCR NEGATIVE (Negative); Influenza B PCR NEGATIVE (Negative); Resp Syncy Virus RNA Qual PCR NEGATIVE (Negative); SARS COV2 PCR INHOUSE NEGATIVE (Negative)
[2023-05-21] MEDS: 0.9 % Sodium Chloride 1,000 ML 999 ML IV (04:05)
[2023-05-21 04:20] LABS: Alanine Aminotransferase 11 U/L (0-31); Albumin Level 3.7 g/dL (3.5-5.0); Alkaline Phosphatase 77 U/L (39-117); Anion Gap 13 (12-20); Aspartate Amino Transferase 17 U/L (5-31); Bilirubin Direct 0.2 mg/dL (0.0-0.5); Bilirubin Total 0.2 mg/dL (0.0-1.0); Blood Urea Nitrogen 14 mg/dL (9-16); C Reactive Protein 3.98 mg/dL (< or = 0.50); Calcium 9.4 mg/dL (8.4-10.2); Carbon Dioxide 28 mmol/L (22-29); Chloride 105 mmol/L (96-108); Creatinine Clr Calc Pharmacy 62.1; Estimated Glomerular Filt Rate > 60; Glucose Random 138 mg/dL (60-115); Magnesium 1.6 mg/dL (1.6-2.6); Potassium 3.5 mmol/L (3.3-5.1); Sodium 142 mmol/L (135-145); Total Protein 6.7 g/dL (6.5-8.0)
[2023-05-21 04:23] LABS: Troponin-I High Sensitivity 17.9 ng/L (<3.5-17.0)
[2023-05-21] MEDS: Albuterol Sulfate 5 MG, Albuterol/Iprat 2.5/0.5MG 3 ML 3 ML INHALE (04:36)
[2023-05-21] MEDS: Magnesium Sulfate/H2O 2 GM/50 ML PIGGYBACK IV (05:12)
[2023-05-21 07:44] LABS: Troponin-I High Sensitivity 41.8 ng/L (<3.5-17.0)
--- NOTE | 2023-05-21 08:43 | P.HPHOSP_ITS ---
History of Present Illness Date of Service: 05/21/23 Chief Complaint: Shortness of Breath The 62-year-old female with a history of asthma/COPD overlap, active smoking, GERD, history of TAVR procedure following complications of endocarditis on Plavix, history of IVDA, diabetes, hypertension, hyperlipidemia, noncompliance with CPAP for MARY, overactive bladder, and rheumatoid arthritis, presented to the ED with acute shortness of breath. She woke up around midnight, experiencing extreme shortness of breath and confusion, prompting her to alert her brother who then called 911. EMS administered bronchodilators with some positive effect. Upon presentation to the ED, she was tachypneic and anxious, and was placed on BiPAP along with nebulized bronchodilators, IV steroids, and IV magnesium. She showed improvement on BiPAP after 2 hours and was subsequently taken off. I conversed with her through a digital analytics manager and she reported feeling much better, answering questions appropriately, and was no longer tachypneic. Further testing included negative results for Flu, RSV, and COVID. Her CXR showed no acute findings. VBG was unremarkable Review of Systems 2 Review of Systems: Gen: no fever Resp: no sob, no cough CV: no chest, no BURNETT, no leg edema GI: No n/v, no abd pain Neuro: No confusion Yes all other systems are reviewed and are negative [facility] Medical History Asthma with exacerbation Smoking Restrictive airway disease MARY (obstructive sleep apnea) COPD (chronic obstructive pulmonary disease) MARY on CPAP Reactive airways dysfunction syndrome Rheumatoid arthritis Fibromyalgia GERD (gastroesophageal reflux disease) MARY (obstructive sleep apnea) Aortic valve endocarditis COPD (chronic obstructive pulmonary disease) COPD exacerbation Overactive bladder Bronchitis Allergic rhinitis COPD (chronic obstructive pulmonary disease) Asthma Hx of cardiac pacemaker Hx of migraines Hx of coronary artery disease History of urinary incontinence Hx of essential hypertension History of depression Hx of drug abuse Hx of hyperlipidemia Hx of allergic rhinitis History of enuresis Hx of osteoarthritis Hx of pilonidal cyst Family history of GERD History of arthritis Hx of diabetes mellitus Surgical History History of surgical removal of pilonidal cyst Hx of bilateral cataract extraction Hx of colonoscopy History of cystoscopy History of hysterectomy Hx of aortic valve replacement Hx laparoscopic cholecystectomy History of epidermal inclusion cyst excision Social History Household Members: Family Household Members Other:: self Housing: Apartment Do you presently have visiting nurse or other home services: No Alcohol intake: former Comment: refusing alarms Patient Tobacco Use Status: Former Tobacco user Tobacco use type: Cigarette Cigarettes Per Day: 3 Smoked in Last 30 Days: No e-Cigarette/Vaping Use: Currently Using Second Hand Smoke Exposure: Yes Use of substances other than those prescribed or required for medical reasons: No Currently Displaying Signs/Symptoms of Drug Intoxication Withdrawal: No Any prior treatment program specific to substance use: No Have you been hit, kicked, punched, or otherwise hurt by someone within the past year? If so, by whom?: No Do you feel safe in your current relationship?: Yes Is there a partner from a previous relationship who is making you feel unsafe now?: No Are you made to feel afraid or neglected: No Advance Directives: Yes Advance Directives on File: Yes Advance Directives Date on File: 11/08/21 Do you have thoughts of harming others: None Do you have a plan to hurt others: No Plan Recently lost weight without trying: No Eating poorly because of decreased appetite: No Nutrition Risks: No Nutritional Risk Patient : No : No Poor oral hygiene: No service: No Current occupational status: unemployed and disabled Meds Allergies Allergy/AdvReac Type Severity Reaction Status Date / Time latex [LATEX] Allergy Severe DIFFICULTY Verified 03/12/23 10:21 BREATHING aspirin [Aspirin] Allergy Intermediate ITCHING, Verified 03/12/23 10:21 itchiness ciprofloxacin [From CIPRO] Allergy Intermediate DIAPHORESIS Verified 03/12/23 10:21 /PURITIS Penicillins [PENICILLINS] Allergy Unknown UNKNOWN Verified 03/12/23 10:21 HEMALATHA Inhibitors AdvReac Intermediate COUGH Verified 03/12/23 10:21 [HEMALATHA INHIBITORS] Home Medications Medication Instructions Recorded Confirmed Last Taken Type amitriptyline 25 mg tablet 25 mg PO BEDTIME 07/03/22 05/21/23 11/27/22 History bisacodyl 5 mg tablet,delayed 10 mg PO BEDTIME 07/03/22 05/21/23 11/27/22 History release calcium carbonate 600 mg-vitamin 1 tab PO DAILY 07/03/22 05/21/23 11/28/22 History D3 10 mcg (400 unit) tablet clopidogrel 75 mg tablet 75 mg PO DAILY 07/03/22 05/21/23 11/28/22 History cyanocobalamin (vitamin B-12) 1,000 mcg PO QAM 07/03/22 05/21/23 11/28/22 History 1,000 mcg tablet folic acid 1 mg tablet 1 mg PO DAILY 07/03/22 05/21/23 11/28/22 History gabapentin 100 mg capsule 100 mg PO TID 07/03/22 05/21/23 11/28/22 History hydrochlorothiazide 12.5 mg tablet 12.5 mg PO DAILY 07/03/22 05/21/23 11/28/22 History montelukast 10 mg tablet 10 mg PO BEDTIME 07/03/22 05/21/23 11/27/22 History sertraline 50 mg tablet 50 mg PO DAILY 07/03/22 05/21/23 11/28/22 History melatonin 5 mg tablet 5 mg PO BEDTIME PRN insomnia 03/14/23 05/21/23 Unknown History tiotropium bromide 18 mcg capsule 1 cap inhalation DAILY 03/14/23 05/21/23 Unknown History with inhalation device (Spiriva with HandiHaler) albuterol sulfate 2.5 mg/3 mL 2.5 mg inhalation Q4H PRN 05/21/23 05/21/23 Unknown History (0.083 %) solution for nebulization Shortness Of Breath/Wheezing albuterol sulfate 90 mcg/actuation 2 puff inhalation Q4H PRN Wheezing 05/21/23 05/21/23 Unknown History aerosol inhaler (Ventolin HFA) Physical Exam 2 Vital Signs and Narrative: Vital Signs: Last Vital Signs Temp 98.9 F 05/21/23 07:32 Pulse 61 05/21/23 07:32 Resp 27 H 05/21/23 07:32 BP 139/81 05/21/23 07:32 Pulse Ox 98 05/21/23 07:32 O2 Del Method Nasal Cannula 05/21/23 07:32 O2 Flow Rate 2 05/21/23 07:32 FiO2 100 05/21/23 03:03 BMI result Body Mass Index 26.1 Const: Other: Constitutional: Alert, in no distress, overweight. Mental Status: Oriented to person, place and time. Eyes: Pupils are equal, round and reactive to light. Ear, Nose and Throat: Oropharynx clear, mucous membranes moist. Ears and nose without deformities. Trachea midline. Respiratory: Faint whezes, normaml respiratory effort Cardiovascular: S1 S2 regular. No murmurs, rubs or gallops. Gastrointestinal: Abdomen soft, non-tender, non-distended. Normal bowel sounds.? Neurologic: Cranial nerves II-XII grossly intact. No focal neurological deficits. Moves all extremities spontaneously.? Skin: No rashes or lesions.? Musculoskeletal: No cyanosis or clubbing. Psychiatric: Normal mood and affect? Results Labs 05/21/23 03:00 05/22/23 06:09 Labs: Imaging Radiologist's Impressions: Impressions Chest X-Ray 05/21/23 03:24 IMPRESSION: No evidence for acute disease in the chest. Assessment and Plan (1) Acute exacerbation of chronic obstructive pulmonary disease: Status: Acute Plan 62-year-old female with a history of asthma/COPD overlap, active smoking, GERD, history of TAVR procedure following complications of endocarditis on Plavix, history of IVDA, diabetes, hypertension, hyperlipidemia, noncompliance with CPAP for MARY, overactive bladder, and rheumatoid arthritis here with acute respiratory failure due to acute exacerbation of ASthma/COPD overlap #Asthma/COPD with acute exacerbation with acute respiratory distress required Brief use of BiPAP -40mg IV methylprednisolone BID -Bronchodilators scheduled and PRN -cxr negative. no productive cough. Nl WBC. abx not indicated at this time -continue maintenance inhalers #Elevated Troponin 17-->41--> ? demand from acute resp distress, denies chest pain, ECG no acute ischemic changes, repeat trop if trending up cardiology consult #non insulin dependent type 2 diabetes- without hyperglycemia -poc glucose, diabetic diet -humalog on sliding scale #Essential hypertension -continue hydrochlorothiazide #Mood disorder -Continue home mood stabilizers #MARY -CPAP at bedtime, usually no-compliant #Tobacco use disorder--cessation discussed DVT prophylaxis: Lovenox Full code Admission for at least 2 midngithss for management of acute resp distress , copd/asthma exacerbation with IV steroid, bronchodilators by Neb and frequent O2 monitoring Quality Stroke Does the patient have a stroke diagnosis?: No VTE Prior VTE?: No VTE Risk Level:: Medical - moderate - high VTE Device Contraindication: Treatment Not Indicated VTE Drug Contraindication: N/A - Med Ordered
[2023-05-21] MEDS: Enoxaparin Sodium 40 MG/0.4 ML SYRINGE SUBCUT (10:00)
--- NOTE | 2023-05-21 11:26 | PC.NURSE ---
Assumed care of this patient, patient up to bathroom, independent with care, skin color appropriate for ethnicity, respirations even and slightly labored, wheezes auscultated throughout, patient currently satting 96% on room air, educated patient to ring call basilio if develops SOB, respiratory at bedside giving breathing treatment, noted to have chronic wheezes, denies pain, vss, will continue to monitor.
--- NOTE | 2023-05-21 11:28 | MHC.EDTECH ---
PT POC = 140 RN AWARE
[2023-05-21 11:30] LABS: Glucose, Whole Blood 140 mg/dL (60-115)
[2023-05-21 13:02] LABS: Troponin-I High Sensitivity 32.3 ng/L (<3.5-17.0)
--- NOTE | 2023-05-21 13:56 | PHA.MEDREC ---
Pharmacy Consult ? Medication Reconciliation Pharmacy has completed the medication reconciliation. Unable to obtain medication list from patient and her emergency contact (Venkatesh Schaffer). Med rec was done based on pharmacy claims (patient uses [facility] service).
[2023-05-21] MEDS: Clopidogrel Bisulfate 75 MG TABLET PO (15:22)
[2023-05-21] MEDS: Gabapentin 100 MG CAPSULE PO ×2 (15:22→21:38)
[2023-05-21] MEDS: Cyanocobalamin (Vitamin B-12) 1,000 MCG TABLET 1000 MCG PO (15:22)
[2023-05-21] MEDS: Acetaminophen 325 MG TABLET 650 MG PO ×2 (15:23→21:38)
[2023-05-21 17:14] LABS: Glucose, Whole Blood 101 mg/dL (60-115)
[2023-05-21] MEDS: 0.9 % Sodium Chloride Flush 3 ML SYRINGE IVFLUSH ×2 (17:15→21:33)
[2023-05-21 21:14] LABS: Glucose, Whole Blood 83 mg/dL (60-115)
[2023-05-21] MEDS: bisacodyL 5 MG TABLET.DR 10 MG PO (21:38)
[2023-05-21] MEDS: Amitriptyline HCl 25 MG TABLET PO (21:39)
[2023-05-21] MEDS: Montelukast Sodium 10 MG TABLET PO (21:39)
[2023-05-22] VITALS (8 sets, daily range): BP systolic 114–169; BP diastolic 59–79; PULSE 61–95; RESP 16–22; TEMP 36.1–36.2; O2SAT 93–99
--- NOTE | 2023-05-22 03:18 | PC.RT ---
pt refused cpap pt is non compliant with cpap at home will call if anything changes
[2023-05-22 07:39] LABS: Glucose, Whole Blood 87 mg/dL (60-115)
[2023-05-22 07:44] LABS: Anion Gap 14 (12-20); Blood Urea Nitrogen 14 mg/dL (9-16); Calcium 8.7 mg/dL (8.4-10.2); Carbon Dioxide 24 mmol/L (22-29); Chloride 110 mmol/L (96-108); Creatinine Clr Calc Pharmacy 75.1; Estimated Glomerular Filt Rate > 60; Glucose Random 98 mg/dL (60-115); Potassium 3.9 mmol/L (3.3-5.1); Sodium 144 mmol/L (135-145)
[2023-05-22] MEDS: Enoxaparin Sodium 40 MG/0.4 ML SYRINGE SUBCUT (08:31)
[2023-05-22] MEDS: Sertraline HCL 50 MG TABLET PO (08:31)
[2023-05-22] MEDS: Folic Acid 1 MG TABLET PO (08:31)
[2023-05-22] MEDS: Clopidogrel Bisulfate 75 MG TABLET PO (08:31)
[2023-05-22] MEDS: Cyanocobalamin (Vitamin B-12) 1,000 MCG TABLET 1000 MCG PO (08:31)
[2023-05-22] MEDS: Calcium + Vitamin D 250 MG TABLET 500 MG PO (08:31)
[2023-05-22] MEDS: Gabapentin 100 MG CAPSULE PO ×3 (08:31→21:12)
[2023-05-22] MEDS: hydroCHLOROthiazide 12.5 MG TABLET PO (08:31)
[2023-05-22] MEDS: 0.9 % Sodium Chloride Flush 3 ML SYRINGE IVFLUSH ×3 (08:34→21:13)
[2023-05-22] MEDS: Tiotropium Bromide 2.5 mcg 1 PUFF/2.5 MCG MIST.INHAL 2 PUFF INHALE (08:46)
[2023-05-22] MEDS: Albuterol/Iprat 2.5/0.5MG 3 ML AMPUL.NEB INHALE ×4 (08:47→19:51)
--- NOTE | 2023-05-22 09:27 | PM.DS ---
DS: Providers Provider Date of Service: 05/24/23 Date of admission: 05/21/23 09:15 Primary care physician: Ting Hampton MD DS: Diagnosis Discharge Diagnosis (1) Acute exacerbation of chronic obstructive pulmonary disease: Status: Acute DS: Summary Hospital Course Hospital Course: Chief Complaint: Shortness of Breath The 62-year-old female with a history of asthma/COPD overlap, active smoking, GERD, history of TAVR procedure following complications of endocarditis on Plavix, history of IVDA, diabetes, hypertension, hyperlipidemia, noncompliance with CPAP for MARY, overactive bladder, and rheumatoid arthritis, presented to the ED with acute shortness of breath. She woke up around midnight, experiencing extreme shortness of breath and confusion, prompting her to alert her brother who then called 911. EMS administered bronchodilators with some positive effect. Upon presentation to the ED, she was tachypneic and anxious, and was placed on BiPAP along with nebulized bronchodilators, IV steroids, and IV magnesium. She showed improvement on BiPAP after 2 hours and was subsequently taken off. I conversed with her through a rod tape operator and she reported feeling much better, answering questions appropriately, and was no longer tachypneic. Further testing included negative results for Flu, RSV, and COVID. Her CXR showed no acute findings. VBG was unremarkable Hospital course: Patient presented with acute respiratory distress workup with checks x-ray, influenza RN C and COVID were unremarkable. She was briefly treated with BiPAP. She made rapid improvement with treatment with IV steroid, bronchodilators by nebulizer. She was admitted and treated with IV steroid, bronchodilators by Neb and is feeling much better. She presently has no respiratory difficulty, oxygen saturation is within normal limit without use of oxygen, her breathing is comfortable. She is advised to stop smoking. She will be discharged with oral prednisone for total of 5 days of steroid, She is to continue use of her usual inhalers and to follow up with her primary care doctor within a week. Of note, her troponin was slightly elevated at initial of 17 increasing to 41 then coming down to 32. There were new ischemic changes on EKG no chest pain. The rise in the troponin was attributed to the acute respiratory failure related to COPD. Time Attestation Discharge Coordination Time (in mins): 35 Quality: Safe Use of Opioids Does Pt have an Active Cancer Diagnosis on the Problem List?: No Quality: Stroke Does the patient have a stroke diagnosis?: No Physical Exam Vital Signs: Vital Signs: Selected Entries 05/24/23 07:33 Temperature 96.8 F Pulse Rate 70 Respiratory Rate 18 Blood Pressure 149/72 H Pulse Oximetry 95 Oxygen Delivery Me thod Room Air General: AO X 3, no acute distress Resp: CTA bilateral, normal respiratory effort CVS: S1,S2,RRR GI: +BS, NT, no distention Skin: No rash Neuro: motor grossly intact Psych: appropriate affect DS: Data Data Completed and Pending Completed studies during hospitalization [Text1]: Procedures Assistance with Respiratory Ventilation, Less than 24 Consecutive Hours, Continuous Positive Airway Pressure (10/21/22) Labs on day of discharge: Laboratory Results - last 24 hr 05/21/23 05/21/23 05/21/23 11:27 12:31 17:12 Sodium Potassium Chloride Carbon Dioxide Anion Gap BUN Creatinine Estim Creat Clear Calc Estimated GFR POC Glucose 140 H 101 Random Glucose Calcium Troponin I High Sens 32.3 H 05/21/23 05/22/23 05/22/23 21:11 06:09 07:31 Sodium 144 Potassium 3.9 Chloride 110 H Carbon Dioxide 24 Anion Gap 14 BUN 14 Creatinine 0.62 Estim Creat Clear Calc 75.1 Estimated GFR > 60 POC Glucose 83 87 Random Glucose 98 Calcium 8.7 D Troponin I High Sens Discharge Plan Discharge Anticipated Discharge Date/Time: 05/24/23 09:01 Patient Disposition: Home, Self-Care Discharge Diagnosis: Acute exacerbation of COPD, acute respiratory failure Referrals: Ting Packer MD [Primary Care Provider] - 1 Week Discharge Medications: New prednisone 20 mg tablet 40 mg PO DAILY Qty: 6 0RF Rx Instructions: next dose 05/25/23 Continued acetaminophen 650 mg tablet extended release 650 mg PO Q8H PRN (Reason: for pain) Qty: 90 3RF tiotropium bromide [Spiriva with HandiHaler] 18 mcg capsule, w/inhalation device 1 cap inhalation DAILY melatonin 5 mg tablet 5 mg PO BEDTIME PRN (Reason: insomnia) nicotine (polacrilex) 2 mg Gum 2 mg buccal Q2H PRN (Reason: Nicotine Cravings) Qty: 1 0RF montelukast 10 mg tablet 10 mg PO BEDTIME bisacodyl 5 mg tablet,delayed release (DR/EC) 10 mg PO BEDTIME gabapentin 100 mg capsule 100 mg PO TID sertraline 50 mg tablet 50 mg PO DAILY calcium carbonate-vitamin D3 600 mg-10 mcg (400 unit) tablet 1 tab PO DAILY hydrochlorothiazide 12.5 mg tablet 12.5 mg PO DAILY clopidogrel 75 mg tablet 75 mg PO DAILY amitriptyline 25 mg tablet 25 mg PO BEDTIME folic acid 1 mg tablet 1 mg PO DAILY cyanocobalamin (vitamin B-12) 1,000 mcg tablet 1,000 mcg PO QAM albuterol sulfate 2.5 mg /3 mL (0.083 %) solution for nebulization 2.5 mg inhalation Q4H PRN (Reason: Shortness Of Breath/Wheezing) albuterol sulfate [Ventolin HFA] 90 mcg/actuation Hfa Aerosol Inhaler 2 puff INHALATION Q4H PRN (Reason: Wheezing) Discharge Orders: Discharge Order (Routine); Ordered 05/24/23 Ordered By: Bry El Diet: Diabetic diet Activity on Discharge: As tolerated Stand Alone Forms: Patient Portal Discharge page Care Plan Goals: Return to baseline functional status, resolution of COPD exacerbation. Health Concerns: COPD Chronic tobacco use Plan of Treatment: Take prednisone and inhalers as directed and follow up with her primary care doctor Stop smoke Assessment: see above
--- NOTE | 2023-05-22 09:43 | MHC.CM.PN ---
CM ASSESSMENT COMPLETED W/ ASSISTANCE OF BUYER TOBACCO HEAD. PATIENT REPORTS SHE IS FROM HOME ALONE. HAS A DAILY DESKTOP PUBLISHING OPERATOR, TOTAL OF 15 HRS/WK TO ASSIST W/ ADL'S. AMBULATES W/ A CANE. PCP ALLYSON MASON MD HCP ON FILE AND VERIFIED, HEALTH CARE AGENT IS SISTER RISA DP: GOAL IS HOME W/ RESUMPTION OF DESKTOP PUBLISHING OPERATOR SERVICES. WILL NEED SHUTTLE FOR TRANSPORTATION. CM WILL CONTINUE TO FOLLOW.
[2023-05-22 11:38] LABS: Glucose, Whole Blood 144 mg/dL (60-115)
--- NOTE | 2023-05-22 12:47 | HO.PM.IMPN ---
Subjective Subjective Date of Service: 05/22/23 Interval History: F/u on asthma exacerbation/copd overalap syndrome interval history: Patient was feeling better this morning, on room air and was planning to discharge but on reevaluation c/o shortness of breath and wheezing Physical Exam Vital Signs: Vital Signs: Last Vital Signs Temp 96.9 F 05/22/23 07:26 Pulse 77 05/22/23 11:49 Resp 18 05/22/23 11:49 BP 114/69 05/22/23 07:26 Pulse Ox 95 05/22/23 07:26 O2 Del Method Room Air 05/22/23 07:26 O2 Flow Rate 2 05/21/23 07:32 FiO2 100 05/21/23 03:03 BMI result Body Mass Index 26.1 Objective Data Active Medications Acetaminophen (Acetaminophen 325 Mg Tablet) 650 mg PO Q6H PRN PRN Reason: Pain, Mild (Pain Scale 1-3) Last Admin: 05/21/23 21:38 Dose: 650 mg Documented By: WILEY Albuterol Sulfate (Albuterol Sulfate (0.083%) 2.5 Mg/3 Ml Vial.Neb) 2.5 mg INHALE Q2H PRN PRN Reason: Shortness of Breath/Wheezing Albuterol/Ipratropium (Albuterol/Iprat 2.5/0.5mg 3 Ml Ampul.Neb) 3 ml INHALE RQ4H WHILE AWAKE [facility] Last Admin: 05/22/23 11:47 Dose: 3 ml Documented By: ELIU Amitriptyline HCl (Amitriptyline Hcl 25 Mg Tablet) 25 mg PO BEDTIME [facility] Last Admin: 05/21/23 21:39 Dose: 25 mg Documented By: WILEY Bisacodyl (Bisacodyl 5 Mg Tablet.Dr) 10 mg PO BEDTIME [facility] Last Admin: 05/21/23 21:38 Dose: 10 mg Documented By: WILEY Calcium Carbonate/Cholecalciferol (Calcium + Vitamin D 250 Mg Tablet) 500 mg PO DAILY [facility] Last Admin: 05/22/23 08:31 Dose: 500 mg Documented By: BOB Clopidogrel Bisulfate (Clopidogrel Bisulfate 75 Mg Tablet) 75 mg PO DAILY [facility] Last Admin: 05/22/23 08:31 Dose: 75 mg Documented By: BOB Cyanocobalamin (Cyanocobalamin (Vitamin B-12) 1,000 Mcg Tablet) 1,000 mcg PO DAILY [facility] Last Admin: 05/22/23 08:31 Dose: 1,000 mcg Documented By: BOB Dextrose (Dextrose 50 % 25 Gm/50 Ml Syringe) 25 gm IVPUSH Q15M PRN; Protocol PRN Reason: per Hypoglycemia Standing Ord. Enoxaparin Sodium (Enoxaparin Sodium 40 Mg/0.4 Ml Syringe) 40 mg SUBCUT Q24H [facility] Last Admin: 05/22/23 08:31 Dose: 40 mg Documented By: BOB Folic Acid (Folic Acid 1 Mg Tablet) 1 mg PO DAILY [facility] Last Admin: 05/22/23 08:31 Dose: 1 mg Documented By: BOB Gabapentin (Gabapentin 100 Mg Capsule) 100 mg PO TID [facility] Last Admin: 05/22/23 08:31 Dose: 100 mg Documented By: BOB Glucose (Glucose Gel 15 Gm Gel..Gram.) 15 gm PO Q15M PRN; Protocol PRN Reason: per Hypoglycemia Standing Ord. Hydrochlorothiazide (Hydrochlorothiazide 12.5 Mg Tablet) 12.5 mg PO DAILY [facility]; Protocol Last Admin: 05/22/23 08:31 Dose: 12.5 mg Documented By: BOB Insulin Human Lispro (Insulin Lispro 100 Unit/Ml 3 Ml Vial) 0 unit SUBCUT QIDACHS [facility]; Protocol Last Admin: 05/22/23 11:39 Dose: Not Given Documented By: BOB Non-Admin Reason: No Insulin Coverage Melatonin (Melatonin 3 Mg Tablet) 3 mg PO BEDTIME PRN PRN Reason: Insomnia Melatonin (Melatonin 3 Mg Tablet) 6 mg PO BEDTIME PRN PRN Reason: insomnia Montelukast Sodium (Montelukast Sodium 10 Mg Tablet) 10 mg PO BEDTIME [facility] Last Admin: 05/21/23 21:39 Dose: 10 mg Documented By: WILEY Nicotine (Nicotine 14 Mg Patch.Td24) 14 mg TRANSDERMA DAILY [facility] Last Admin: 05/22/23 08:31 Dose: Not Given Documented By: BOB Non-Admin Reason: Patient Refused Ondansetron HCl (Ondansetron Hcl 4 Mg/2 Ml Vial) 4 mg IVPUSH Q8H PRN PRN Reason: Nausea and Vomiting Sertraline HCl (Sertraline Hcl 50 Mg Tablet) 50 mg PO DAILY [facility] Last Admin: 05/22/23 08:31 Dose: 50 mg Documented By: BOB Sodium Chloride (0.9 % Sodium Chloride Flush 3 Ml Syringe) 3 ml IVFLUSH QSHIFT [facility] Last Admin: 05/22/23 08:34 Dose: 3 ml Documented By: BOB Tiotropium [place] (Tiotropium [place] 2.5 Mcg 1 Puff/2.5 Mcg Mist.Inhal) 2 puff INHALE RDAILY [facility] Last Admin: 05/22/23 08:46 Dose: 2 puff Documented By: JIMMIE Labs 05/21/23 03:00 05/22/23 06:09 Labs: Laboratory Results - last 24 hr 05/21/23 05/21/23 05/21/23 12:31 17:12 21:11 Anion Gap Estim Creat Clear Calc Estimated GFR POC Glucose 101 83 Random Glucose Calcium Troponin I High Sens 32.3 H 05/22/23 05/22/23 05/22/23 06:09 07:31 11:23 Anion Gap 14 Estim Creat Clear Calc 75.1 Estimated GFR > 60 POC Glucose 87 144 H Random Glucose 98 Calcium 8.7 D Troponin I High Sens Assessment and Plan (1) Acute exacerbation of chronic obstructive pulmonary disease: Status: Acute (2) Pacemaker: Status: Acute (3) Asthma with exacerbation: Status: Acute Plan 62-year-old female with a history of asthma/COPD overlap, active smoking, GERD, history of TAVR procedure following complications of endocarditis on Plavix, history of IVDA, diabetes, hypertension, hyperlipidemia, noncompliance with CPAP for MARY, overactive bladder, and rheumatoid arthritis here with acute respiratory failure due to acute exacerbation of ASthma/COPD overlap #Asthma/COPD with acute exacerbation with acute respiratory distress required Brief use of BiPAP in ED, still with wheezing and sob -40mg IV methylprednisolone BID for 1 more day -Bronchodilators scheduled and PRN -cxr negative. no productive cough. Nl WBC. abx not indicated at this time -continue maintenance inhalers #Elevated Troponin 17-->41-->32 demand from acute resp distress, denies chest pain, ECG no acute ischemic changes. no further testing at this time #non insulin dependent type 2 diabetes- without hyperglycemia -poc glucose, diabetic diet -humalog on sliding scale #Essential hypertension -continue hydrochlorothiazide #Mood disorder -Continue home mood stabilizers #MARY -CPAP at bedtime, usually no-compliant at home #Tobacco use disorder--cessation discussed, NRT DVT prophylaxis: Lovenox Full code Need for inpatient: management of acute resp distress , copd/asthma exacerbation with IV steroid, bronchodilators by Neb and frequent O2 monitoring Quality Stroke Does the patient have a stroke diagnosis?: No VTE Prior VTE?: No VTE Risk Level:: Medical - moderate - high VTE Device Contraindication: Treatment Not Indicated VTE Drug Contraindication: N/A - Med Ordered
[2023-05-22 16:14] LABS: Glucose, Whole Blood 86 mg/dL (60-115)
[2023-05-22 20:14] LABS: Glucose, Whole Blood 93 mg/dL (60-115)
[2023-05-22] MEDS: Montelukast Sodium 10 MG TABLET PO (21:11)
[2023-05-22] MEDS: bisacodyL 5 MG TABLET.DR 10 MG PO (21:11)
[2023-05-22] MEDS: guaiFEN/Codeine SF 200/20/10ML 10 ML LIQUID PO (21:12)
[2023-05-22] MEDS: Amitriptyline HCl 25 MG TABLET PO (21:12)
--- NOTE | 2023-05-22 23:18 | PC.RT ---
pt refused cpap
[2023-05-23] VITALS (8 sets, daily range): BP systolic 141–154; BP diastolic 68–83; PULSE 60–89; RESP 18–22; TEMP 36.2–37.2; O2SAT 93–95
[2023-05-23] MEDS: guaiFEN/Codeine SF 200/20/10ML 10 ML LIQUID PO (01:12)
[2023-05-23 07:28] LABS: Glucose, Whole Blood 94 mg/dL (60-115)
[2023-05-23] MEDS: Tiotropium Bromide 2.5 mcg 1 PUFF/2.5 MCG MIST.INHAL 2 PUFF INHALE (08:30)
[2023-05-23] MEDS: Albuterol/Iprat 2.5/0.5MG 3 ML AMPUL.NEB INHALE ×4 (08:31→22:24)
--- NOTE | 2023-05-23 08:31 | HO.PM.IMPN ---
Subjective Subjective Date of Service: 05/23/23 Interval History: F/u on asthma exacerbation/copd overalap syndrome interval history: SOB is better, having phlegms, O2 95 room air Physical Exam Vital Signs: Vital Signs: Last Vital Signs Temp 98.9 F 05/23/23 06:53 Pulse 62 05/23/23 06:53 Resp 20 05/23/23 06:53 BP 148/68 H 05/23/23 06:53 Pulse Ox 95 05/23/23 06:53 O2 Del Method Room Air 05/23/23 06:53 O2 Flow Rate 2 05/21/23 07:32 FiO2 100 05/21/23 03:03 BMI result Body Mass Index 26.1 General: AO X 3, no acute distress Resp: good air entry trev, faint wheeze, no accessory muscle use CVS: S1,S2,RRR GI: +BS, NT, no distention Skin: No rash Neuro: motor grossly intact Psych: appropriate affect Objective Data Active Medications Acetaminophen (Acetaminophen 325 Mg Tablet) 650 mg PO Q6H PRN PRN Reason: Pain, Mild (Pain Scale 1-3) Last Admin: 05/21/23 21:38 Dose: 650 mg Documented By: WILEY Albuterol Sulfate (Albuterol Sulfate (0.083%) 2.5 Mg/3 Ml Vial.Neb) 2.5 mg INHALE Q2H PRN PRN Reason: Shortness of Breath/Wheezing Albuterol/Ipratropium (Albuterol/Iprat 2.5/0.5mg 3 Ml Ampul.Neb) 3 ml INHALE RQ4H WHILE AWAKE [facility] Last Admin: 05/23/23 08:31 Dose: 3 ml Documented By: DEREK Amitriptyline HCl (Amitriptyline Hcl 25 Mg Tablet) 25 mg PO BEDTIME [facility] Last Admin: 05/22/23 21:12 Dose: 25 mg Documented By: WILEY Bisacodyl (Bisacodyl 5 Mg Tablet.Dr) 10 mg PO BEDTIME [facility] Last Admin: 05/22/23 21:11 Dose: 10 mg Documented By: WILEY Calcium Carbonate/Cholecalciferol (Calcium + Vitamin D 250 Mg Tablet) 500 mg PO DAILY [facility] Last Admin: 05/22/23 08:31 Dose: 500 mg Documented By: BOB Clopidogrel Bisulfate (Clopidogrel Bisulfate 75 Mg Tablet) 75 mg PO DAILY [facility] Last Admin: 05/22/23 08:31 Dose: 75 mg Documented By: BOB Cyanocobalamin (Cyanocobalamin (Vitamin B-12) 1,000 Mcg Tablet) 1,000 mcg PO DAILY [facility] Last Admin: 05/22/23 08:31 Dose: 1,000 mcg Documented By: OBB Dextrose (Dextrose 50 % 25 Gm/50 Ml Syringe) 25 gm IVPUSH Q15M PRN; Protocol PRN Reason: per Hypoglycemia Standing Ord. Enoxaparin Sodium (Enoxaparin Sodium 40 Mg/0.4 Ml Syringe) 40 mg SUBCUT Q24H [facility] Last Admin: 05/22/23 08:31 Dose: 40 mg Documented By: BOB Folic Acid (Folic Acid 1 Mg Tablet) 1 mg PO DAILY [facility] Last Admin: 05/22/23 08:31 Dose: 1 mg Documented By: BOB Gabapentin (Gabapentin 100 Mg Capsule) 100 mg PO TID [facility] Last Admin: 05/22/23 21:12 Dose: 100 mg Documented By: WILEY Glucose (Glucose Gel 15 Gm Gel..Gram.) 15 gm PO Q15M PRN; Protocol PRN Reason: per Hypoglycemia Standing Ord. Guaifenesin (Guaifenesin La 600 Mg Tab.Er.12h) 600 mg PO BID [facility] Guaifenesin/Codeine Phosphate (Guaifen/Codeine Sf 200/20/10ml 10 Ml Liquid) 10 ml PO Q4H PRN PRN Reason: Cough Last Admin: 05/23/23 01:12 Dose: 10 ml Documented By: WILEY Hydrochlorothiazide (Hydrochlorothiazide 12.5 Mg Tablet) 12.5 mg PO DAILY [facility]; Protocol Last Admin: 05/22/23 08:31 Dose: 12.5 mg Documented By: BOB Insulin Human Lispro (Insulin Lispro 100 Unit/Ml 3 Ml Vial) 0 unit SUBCUT QIDACHS [facility]; Protocol Last Admin: 05/23/23 07:52 Dose: Not Given Documented By: LOLI Non-Admin Reason: No Insulin Coverage Melatonin (Melatonin 3 Mg Tablet) 3 mg PO BEDTIME PRN PRN Reason: Insomnia Melatonin (Melatonin 3 Mg Tablet) 6 mg PO BEDTIME PRN PRN Reason: insomnia Montelukast Sodium (Montelukast Sodium 10 Mg Tablet) 10 mg PO BEDTIME [facility] Last Admin: 05/22/23 21:11 Dose: 10 mg Documented By: WILEY Nicotine (Nicotine 14 Mg Patch.Td24) 14 mg TRANSDERMA DAILY [facility] Last Admin: 05/22/23 08:31 Dose: Not Given Documented By: BOB Non-Admin Reason: Patient Refused Ondansetron HCl (Ondansetron Hcl 4 Mg/2 Ml Vial) 4 mg IVPUSH Q8H PRN PRN Reason: Nausea and Vomiting Sertraline HCl (Sertraline Hcl 50 Mg Tablet) 50 mg PO DAILY [facility] Last Admin: 05/22/23 08:31 Dose: 50 mg Documented By: BOB Sodium Chloride (0.9 % Sodium Chloride Flush 3 Ml Syringe) 3 ml IVFLUSH QSHIFT [facility] Last Admin: 05/22/23 21:13 Dose: 3 ml Documented By: WILEY Tiotropium [place] (Tiotropium [place] 2.5 Mcg 1 Puff/2.5 Mcg Mist.Inhal) 2 puff INHALE RDAILY [facility] Last Admin: 05/23/23 08:30 Dose: 2 puff Documented By: DEREK Labs 05/21/23 03:00 05/22/23 06:09 Labs: Laboratory Results - last 24 hr 05/22/23 05/22/23 05/22/23 11:23 16:10 19:38 POC Glucose 144 H 86 93 05/23/23 07:24 POC Glucose 94 Assessment and Plan (1) Acute exacerbation of chronic obstructive pulmonary disease: Status: Acute (2) Pacemaker: Status: Acute (3) Asthma with exacerbation: Status: Acute Plan 62-year-old female with a history of asthma/COPD overlap, active smoking, GERD, history of TAVR procedure following complications of endocarditis on Plavix, history of IVDA, diabetes, hypertension, hyperlipidemia, noncompliance with CPAP for MARY, overactive bladder, and rheumatoid arthritis here with acute respiratory failure due to acute exacerbation of ASthma/COPD overlap #Asthma/COPD with acute exacerbation with acute respiratory distress required Brief use of BiPAP in ED, less sob, but residual wheeze -40mg IV methylprednisolone BID for 1 more day -Bronchodilators scheduled and PRN -cxr negative. no productive cough. Nl WBC. abx not indicated at this time -continue maintenance inhalers -add Mucinex for phlegm #Elevated Troponin 17-->41-->32 demand from acute resp distress, denies chest pain, ECG no acute ischemic changes. no further testing at this time #non insulin dependent type 2 diabetes- without hyperglycemia -poc glucose, diabetic diet -humalog on sliding scale #Essential hypertension -continue hydrochlorothiazide #Mood disorder -Continue home mood stabilizers #MARY -CPAP at bedtime, usually no-compliant at home #Tobacco use disorder--cessation discussed, NRT DVT prophylaxis: Lovenox Full code Need for inpatient: management of acute resp distress , copd/asthma exacerbation with IV steroid, bronchodilators by Neb and frequent O2 monitoring Quality Stroke Does the patient have a stroke diagnosis?: No VTE Prior VTE?: No VTE Risk Level:: Medical - moderate - high VTE Device Contraindication: Treatment Not Indicated VTE Drug Contraindication: N/A - Med Ordered
[2023-05-23] MEDS: 0.9 % Sodium Chloride Flush 3 ML SYRINGE IVFLUSH ×3 (08:36→19:56)
[2023-05-23] MEDS: guaiFENesin LA 600 MG TAB.ER.12H PO ×2 (08:38→19:55)
[2023-05-23] MEDS: Calcium + Vitamin D 250 MG TABLET 500 MG PO (08:38)
[2023-05-23] MEDS: Clopidogrel Bisulfate 75 MG TABLET PO (08:38)
[2023-05-23] MEDS: Gabapentin 100 MG CAPSULE PO ×3 (08:38→19:56)
[2023-05-23] MEDS: Cyanocobalamin (Vitamin B-12) 1,000 MCG TABLET 1000 MCG PO (08:38)
[2023-05-23] MEDS: hydroCHLOROthiazide 12.5 MG TABLET PO (08:39)
[2023-05-23] MEDS: Folic Acid 1 MG TABLET PO (08:39)
[2023-05-23] MEDS: Sertraline HCL 50 MG TABLET PO (08:40)
--- NOTE | 2023-05-23 10:19 | MHC.CM.PN ---
EMR REVIEWED. PER MD ROUNDS PATIENT NOT MEDICALLY CLEARED FOR DC. CM WILL CONTINUE TO FOLLOW.
[2023-05-23] MEDS: Enoxaparin Sodium 40 MG/0.4 ML SYRINGE SUBCUT (10:42)
[2023-05-23 11:00] LABS: Glucose, Whole Blood 102 mg/dL (60-115)
[2023-05-23] MEDS: methylPREDNISolone Sod Succ 40 MG/ML VIAL IVPUSH (15:41)
[2023-05-23 16:09] LABS: Glucose, Whole Blood 97 mg/dL (60-115)
[2023-05-23] MEDS: Albuterol Sulfate (0.083%) 2.5 MG/3 ML VIAL.NEB INHALE (18:31)
[2023-05-23] MEDS: Montelukast Sodium 10 MG TABLET PO (19:55)
[2023-05-23] MEDS: Amitriptyline HCl 25 MG TABLET PO (19:55)
[2023-05-23] MEDS: bisacodyL 5 MG TABLET.DR 10 MG PO (19:56)
[2023-05-23 20:02] LABS: Glucose, Whole Blood 134 mg/dL (60-115)
[2023-05-24] MEDS: methylPREDNISolone Sod Succ 40 MG/ML VIAL IVPUSH (03:00)
[2023-05-24 04:00] VITALS: BP 134/74; PULSE 62; RESP 18; TEMP 36.3; O2SAT 97
[2023-05-24 07:16] LABS: Glucose, Whole Blood 122 mg/dL (60-115)
[2023-05-24 07:33] VITALS: BP 149/72; PULSE 70; RESP 18; TEMP 36; O2SAT 95
[2023-05-24] MEDS: Albuterol/Iprat 2.5/0.5MG 3 ML AMPUL.NEB INHALE (08:40)
[2023-05-24 08:41] VITALS: PULSE 73; RESP 18; O2SAT 97
[2023-05-24] MEDS: Tiotropium Bromide 2.5 mcg 1 PUFF/2.5 MCG MIST.INHAL 2 PUFF INHALE (08:42)
--- NOTE | 2023-05-24 09:19 | MHC.CM.PN ---
EMR REVIEWED. PATIENT IS MEDICALLY CLEARED FOR DC HOME W/ RESUMP OF [employer] DESIGNER SERVICES. BROTHER WILL PROVIDE TRANSPORTATION. RN AWARE.
[2023-05-24] MEDS: Calcium + Vitamin D 250 MG TABLET 500 MG PO (09:33)
[2023-05-24] MEDS: guaiFENesin LA 600 MG TAB.ER.12H PO (09:33)
[2023-05-24] MEDS: Folic Acid 1 MG TABLET PO (09:34)
[2023-05-24] MEDS: predniSONE 20 MG TABLET PO (09:34)
[2023-05-24] MEDS: hydroCHLOROthiazide 12.5 MG TABLET PO (09:34)
[2023-05-24] MEDS: Clopidogrel Bisulfate 75 MG TABLET PO (09:34)
[2023-05-24] MEDS: Gabapentin 100 MG CAPSULE PO (09:34)
[2023-05-24] MEDS: Cyanocobalamin (Vitamin B-12) 1,000 MCG TABLET 1000 MCG PO (09:34)
[2023-05-24] MEDS: Sertraline HCL 50 MG TABLET PO (09:34)
== END 2023-05-24 10:52 | disposition home or self-care (01) | DRG 140 ==
LOC: HO.ED 06:35 → HO.EDOVER 09:32 → HO.S3 18:39
PROVIDERS: Admitting Provider Internal Medicine; Emergency Provider Emergency Medicine; PCP Internal Medicine; Visit Provider Internal Medicine
DX: J44.1 Chronic obstructive pulmonary disease with (acute) exacerbation (principal); J45.901 Unspecified asthma with (acute) exacerbation; F17.210 Nicotine dependence, cigarettes, uncomplicated; Z71.6 Tobacco abuse counseling; F39 Unspecified mood [affective] disorder; I10 Essential (primary) hypertension; G47.33 Obstructive sleep apnea (adult) (pediatric); R06.03 Acute respiratory distress; Z95.0 Presence of cardiac pacemaker; I25.10 Atherosclerotic heart disease of native coronary artery without angina pectoris; E11.9 Type 2 diabetes mellitus without complications; M06.9 Rheumatoid arthritis, unspecified; Z87.891 Personal history of nicotine dependence; Z95.2 Presence of prosthetic heart valve; Z91.040 Latex allergy status; Z91.199 Patient's noncompliance with other medical treatment and regimen due to unspecified reason; Z20.822 Contact with and (suspected) exposure to COVID-19; Z79.02 Long term (current) use of antithrombotics/antiplatelets; Z79.899 Other long term (current) drug therapy
CPT/HCPCS: 0241U; 36415; 71045; 80048; 80076; 82803; 82947; 83735; 83880; 84484; 85025; 85610; 86140; 93005; 94640; 99221; 99285; J1650; J2920; J2930; J3475

== ENCOUNTER → 2023-05-21 02:51 | Outpatient (BNV) | payer MEDICAID, SELFPAY | PROVIDERS: Admitting Provider Internal Medicine; Emergency Provider Emergency Medicine; PCP Internal Medicine; Visit Provider Internal Medicine Cardiovascular Disease | DX: I49.8 Other specified cardiac arrhythmias (principal) | CPT/HCPCS: 93010 ==

== ENCOUNTER → 2023-05-21 09:15 | Outpatient (BNV) | payer MEDICAID, SELFPAY | PROVIDERS: Admitting Provider Internal Medicine; Emergency Provider Emergency Medicine; PCP Internal Medicine; Visit Provider Internal Medicine | DX: J44.1 Chronic obstructive pulmonary disease with (acute) exacerbation (principal) | CPT/HCPCS: 99223; 99232; 99239 ==

== ENCOUNTER 2023-08-03 00:45 | Observation (INO) | payer MEDICAID, SELFPAY ==
[2023-08-03] VITALS (12 sets, daily range): BP systolic 130–180; BP diastolic 63–132; PULSE 59–80; RESP 11–20; TEMP 35.8–37.1; O2SAT 93–100; BMI 28.5; BMI 27.3
--- NOTE | ~2023-08-03 | XR_ITS ---
EXAMINATION: XR CHEST CLINICAL INFORMATION: Pain, cough COMPARISON: 05/21/2023 TECHNIQUE: Frontal view of the chest was obtained. FINDINGS: Right-sided pacemaker lead tip overlies the right ventricle. Redemonstrated sternal wires. Lung volumes are symmetric. No focal consolidation is seen. No evidence of pneumothorax, significant pleural effusion, or overt pulmonary edema. Cardiac silhouette remains mildly prominent. No acute osseous findings are seen. XR/XR chest 1V IMPRESSION: No acute pulmonary findings. Mildly prominent cardiac silhouette.
--- NOTE | ~2023-08-03 | XR_ITS ---
EXAMINATION: XR ANKLE, RIGHT CLINICAL INFORMATION: Pain COMPARISON: None available. TECHNIQUE: AP, lateral, and mortise views of the right ankle. FINDINGS: No acute visible fracture or dislocation. Ankle mortise is symmetric. Enthesopathy at the Achilles tendon insertion site. Joint space alignment are otherwise maintained. Slight soft tissue prominence about the ankle. XR/XR ankle RT min 3V IMPRESSION: 1. No acute visible fracture or dislocation. 2. Enthesopathy at the Achilles tendon insertion site. 3. Slight soft tissue prominence about the ankle.
--- NOTE | 2023-08-03 01:11 | ED.SOB ---
HPI - SOB/Dyspnea General Chief Complaint: Dyspnea Stated Complaint: SOB ASTHMA Time Seen by Provider: 08/03/23 00:46 History of Present Illness HPI Narrative: 62-year-old female with a history of asthma/COPD overlap, active smoking, GERD, history of TAVR procedure following complications of endocarditis on Plavix, history of IVDA, diabetes, hypertension, hyperlipidemia, noncompliance with CPAP for MARY, overactive bladder, and rheumatoid arthritis. Patient feeling increasing shortness of breath. Weakness. Wheezing came to the ED. Related Data Home Medications ?Medication ?Instructions ?Recorded ?Confirmed amitriptyline 25 mg tablet 25 mg PO BEDTIME 07/03/22 05/21/23 bisacodyl 5 mg tablet,delayed 10 mg PO BEDTIME 07/03/22 05/21/23 release calcium carbonate 600 mg-vitamin 1 tab PO DAILY 07/03/22 05/21/23 D3 10 mcg (400 unit) tablet clopidogrel 75 mg tablet 75 mg PO DAILY 07/03/22 05/21/23 cyanocobalamin (vitamin B-12) 1,000 mcg PO QAM 07/03/22 05/21/23 1,000 mcg tablet folic acid 1 mg tablet 1 mg PO DAILY 07/03/22 05/21/23 gabapentin 100 mg capsule 100 mg PO TID 07/03/22 05/21/23 hydrochlorothiazide 12.5 mg tablet 12.5 mg PO DAILY 07/03/22 05/21/23 montelukast 10 mg tablet 10 mg PO BEDTIME 07/03/22 05/21/23 sertraline 50 mg tablet 50 mg PO DAILY 07/03/22 05/21/23 melatonin 5 mg tablet 5 mg PO BEDTIME PRN insomnia 03/14/23 05/21/23 tiotropium bromide 18 mcg capsule 1 cap inhalation DAILY 03/14/23 05/21/23 with inhalation device (Spiriva with HandiHaler) albuterol sulfate 2.5 mg/3 mL 2.5 mg inhalation Q4H PRN 05/21/23 05/21/23 (0.083 %) solution for nebulization Shortness Of Breath/Wheezing albuterol sulfate 90 mcg/actuation 2 puff inhalation Q4H PRN Wheezing 05/21/23 05/21/23 aerosol inhaler (Ventolin HFA) Previous Rx's ?Medication ?Instructions ?Recorded acetaminophen 650 mg 650 mg PO Q8H PRN for pain #90 tabs 01/04/23 tablet,extended release nicotine (polacrilex) 2 mg gum 2 mg buccal Q2H PRN Nicotine 03/15/23 Cravings #1 ea prednisone 20 mg tablet 40 mg (2 x 20 mg) PO DAILY #6 tabs 05/24/23 Allergies Allergy/AdvReac Type Severity Reaction Status Date / Time latex [LATEX] Allergy Severe DIFFICULTY Verified 08/03/23 01:01 BREATHING aspirin [Aspirin] Allergy Intermediate ITCHING, Verified 08/03/23 01:01 itchiness ciprofloxacin [From CIPRO] Allergy Intermediate DIAPHORESIS Verified 08/03/23 01:01 /PURITIS Penicillins [PENICILLINS] Allergy Unknown UNKNOWN Verified 08/03/23 01:01 HEMALATHA Inhibitors AdvReac Intermediate COUGH Verified 08/03/23 01:01 [HEMALATHA INHIBITORS] Review of Systems Review of Systems: Positive coughing congestion shortness of breath Yes all other systems are reviewed and are negative PMFSH Past Medical History Medical History Asthma with exacerbation Smoking Restrictive airway disease MARY (obstructive sleep apnea) COPD (chronic obstructive pulmonary disease) MARY on CPAP Reactive airways dysfunction syndrome Rheumatoid arthritis Fibromyalgia GERD (gastroesophageal reflux disease) MARY (obstructive sleep apnea) Aortic valve endocarditis COPD (chronic obstructive pulmonary disease) COPD exacerbation Overactive bladder Bronchitis Allergic rhinitis COPD (chronic obstructive pulmonary disease) Asthma Hx of cardiac pacemaker Hx of migraines Hx of coronary artery disease History of urinary incontinence Hx of essential hypertension History of depression Hx of drug abuse Hx of hyperlipidemia Hx of allergic rhinitis History of enuresis Hx of osteoarthritis Hx of pilonidal cyst Family history of GERD History of arthritis Hx of diabetes mellitus Surgical History History of surgical removal of pilonidal cyst Hx of bilateral cataract extraction Hx of colonoscopy History of cystoscopy History of hysterectomy Hx of aortic valve replacement Hx laparoscopic cholecystectomy History of epidermal inclusion cyst excision Social History Social History Household Members: Family Household Members Other:: self Housing: Apartment Do you presently have visiting nurse or other home services: No Alcohol intake: former Comment: refusing alarms Patient Tobacco Use Status: Former Tobacco user Tobacco use type: Cigarette Cigarettes Per Day: 3 Smoked in Last 30 Days: No e-Cigarette/Vaping Use: Currently Using Second Hand Smoke Exposure: Yes Use of substances other than those prescribed or required for medical reasons: No Advance Directives: Yes Advance Directives on File: Yes Advance Directives Date on File: 11/08/21 service: No Current occupational status: unemployed and disabled Physical Exam Vital Signs: Vital Signs: Last Vital Signs Temp 98.7 F 08/03/23 01:10 Pulse 63 08/03/23 01:29 Resp 18 08/03/23 01:29 BP 179/90 H 08/03/23 01:10 Pulse Ox 98 08/03/23 01:10 O2 Del Method Room Air 08/03/23 01:10 Oxygen Flow Rate 2 08/03/23 00:58 BMI result Body Mass Index 28.5 Appearance: Alert. Oriented X3. No acute distress. Eyes: Pupils equal, round and reactive to light. ENT: Pharynx normal. Neck: Normal inspection. Neck supple. No lymph nodes noted. No crepitus CVS: Normal heart rate and rhythm. Pulses normal. Normal S1 and S2 Respiratory: Increased work of breathing positive bilateral expiratory wheezing noted, diminished breath sounds bilaterally Abdomen: Soft and nontender. No rigidity. No distention. good BS x4 Skin: Skin warm and dry. Normal skin color. Normal skin turgor. Extremities: No lower extremity edema. Neurovascular intact to all extremities. No Lacerations. No Rash Neuro: Oriented X 3. No motor deficit. No sensory deficit. Moving all extermities. No slurred speech Medications Administered Discontinued Medications Generic Name Dose Route Start Last Admin Trade Name Kiah PRN Reason Stop Dose Admin Albuterol Sulfate 2.5 mg/ 0 mg 08/03/23 01:14 08/03/23 01:26 Albuterol/Ipratropium 3 ml INHALE 08/03/23 01:15 5 dose ONCE ONE Administration Magnesium Sulfate 2 gm in 50 mls @ 150 mls/hr 08/03/23 01:12 08/03/23 02:04 Magnesium Sulfate/H2o IV 08/03/23 01:31 Infused ONCE ONE Infusion Medical Decision Making Medical Decision Making MDM Narrative: Patient is given nebulized treatment. Steroid, magnesium still feel short of breath. My interpretation patient's chest x-ray showed no focal infiltrate. Patient wheezing history not consistent with having a pulmonary emboli. Patient's VBG showed no CO2 retention. Her pH was 7.5. PCO2 is 39. Lactate is 1.1 there is no evidence for severe sepsis. BNP 75 not consistent with congestive heart failure. Patient's flu COVID RSV were all negative. My interpretation patient's EKG showed a paced rhythm heart rate is 75. Will admit patient for further evaluation. Currently in stable condition. Differential Diagnosis Differential Diagnoses: The differential diagnosis associated with the presentation includes Asthma COPD Admission/Observation Consideration of admission/observation: Escalation of care including admission/observation considered Consult Healthcare Provider Management of the patient was discussed with: Hospitalist Lab Data [facility] Lab Attestation statement: I reviewed the patient's lab results. 08/03/23 01:37 08/03/23 01:37 Labs: Lab Results 08/03/23 08/03/23 Range/Units 01:37 01:45 WBC 11.2 H (4.8-10.8) X10*3/uL RBC 4.82 (4.20-5.50) X10*6/uL Hgb 13.9 (12.0-16.0) g/dl Hct 42.6 (37.0-47.0) % MCV 88.4 (80.0-98.0) fL MCH 28.8 (27.0-33.0) pg MCHC 32.6 (31.0-35.0) g/dl RDW 13.2 (11.0-16.0) % Plt Count 328 (160-400) X10*3/uL MPV 9.5 (9.4-12.3) fL Immature Gran % (Auto) 0.3 (0.0-0.4) % Neut % (Auto) 72.4 (45-73) % Lymph % (Auto) 13.7 L (20-40) % [place] % (Auto) 7.0 (2-11) % Eos % (Auto) 6.2 H (0-4) % Baso % (Auto) 0.4 (0-2) % Lymph # (Auto) 1.5 (1.2-4.9) X10*3/uL [place] # (Auto) 0.8 (0.1-1.2) X10*3/uL Eos # (Auto) 0.7 H (0.0-0.4) X10*3/uL Baso # (Auto) 0.1 (0.0-0.2) X10*3/uL Abs Immat Gran (auto) 0.03 (0.00-0.03) X10*3/uL Absolute Neuts (auto) 8.1 (2.0-8.3) x10*3/uL Absolute Nucleated RBC 0.000 (0.0-0.012) X10*3/uL Nucleated RBC % (auto) 0.0 (0.0-0.2) /100WBC VBG pH 7.50 H (7.32-7.43) VBG pCO2 39 mmHg VBG pO2 193 mmHg VBG HCO3 31 H (22-26) mmol/L VBG O2 Saturation 100.0 % VBG Base Excess 7.9 mmol/L Sodium 143 (135-145) mmol/L Potassium 4.2 (3.3-5.1) mmol/L Chloride 104 (96-108) mmol/L Carbon Dioxide 29 (22-29) mmol/L Anion Gap 14 (12-20) BUN 20 H (9-16) mg/dL Creatinine 0.81 (0.5-1.4) mg/dL Estim Creat Clear Calc 60.0 Estimated GFR > 60 Random Glucose 162 H (60-115) mg/dL Lactic Acid 1.1 (0.5-2.0) mmol/L Calcium 10.0 D (8.4-10.2) mg/dL Troponin I High Sens 9.0 D (<3.5-17.0) ng/L B-Natriuretic Peptide 75 (<100) pg/mL Influenza Type A (PCR) NEGATIVE (Negative) Influenza Type B (PCR) NEGATIVE (Negative) RSV RNA Qual (PCR) NEGATIVE (Negative) SARS-CoV-2 RNA (RT-PCR) NEGATIVE (Negative) ABG Data ABG Results: My interpretation patient's VBG showed no CO2 retention. PH was 7.5. Attestation ABG: I personally reviewed and interpreted this ABG as follows: Independent Interpretation I performed an independent interpretation of an: EKG (Paste heart rate is 75) and Plain X-Ray (Chest x-ray grossly negative for pneumonia) Radiology Impression Discussion of test interpretation with radiology: I have reviewed the radiologist's reading. External Record Review External record reviewed: Inpatient record Chronic Conditions COPD Social Determinants Patient?s care significantly limited by Social Determinants of Health including: Alcoholism and drug addiction in family Critical Care Time Critical Care Time Critical Care Time: Yes Total Critical Care Time: 40 Attestation: I have personally provided 40 minutes of critical care time exclusive of time spent on separately billable procedures. ?Time includes review of lab data, radiology results, discussion with consultants, and monitoring for potential decompensation. ?Interventions were performed as documented above Discharge Plan Discharge Clinical Impression: Asthma with exacerbation Patient Disposition: Admitted As Inpatient Prescriptions: No Action acetaminophen 650 mg tablet extended release 650 mg PO Q8H PRN (Reason: for pain) Qty: 90 3RF tiotropium bromide [Spiriva with HandiHaler] 18 mcg capsule, w/inhalation device 1 cap inhalation DAILY melatonin 5 mg tablet 5 mg PO BEDTIME PRN (Reason: insomnia) nicotine (polacrilex) 2 mg Gum 2 mg buccal Q2H PRN (Reason: Nicotine Cravings) Qty: 1 0RF montelukast 10 mg tablet 10 mg PO BEDTIME bisacodyl 5 mg tablet,delayed release (DR/EC) 10 mg PO BEDTIME gabapentin 100 mg capsule 100 mg PO TID sertraline 50 mg tablet 50 mg PO DAILY calcium carbonate-vitamin D3 600 mg-10 mcg (400 unit) tablet 1 tab PO DAILY hydrochlorothiazide 12.5 mg tablet 12.5 mg PO DAILY clopidogrel 75 mg tablet 75 mg PO DAILY amitriptyline 25 mg tablet 25 mg PO BEDTIME folic acid 1 mg tablet 1 mg PO DAILY cyanocobalamin (vitamin B-12) 1,000 mcg tablet 1,000 mcg PO QAM albuterol sulfate 2.5 mg /3 mL (0.083 %) solution for nebulization 2.5 mg inhalation Q4H PRN (Reason: Shortness Of Breath/Wheezing) albuterol sulfate [Ventolin HFA] 90 mcg/actuation Hfa Aerosol Inhaler 2 puff INHALATION Q4H PRN (Reason: Wheezing) prednisone 20 mg tablet 40 mg PO DAILY Qty: 6 0RF Rx Instructions: next dose 05/25/23 Print Language: Vietnamese
--- NOTE | 2023-08-03 01:12 | ECG_ITS ---
Test Reason : sob Blood Pressure : / mmHG Vent. Rate : 062 BPM Atrial Rate : 062 BPM P-R Int : 000 ms QRS Dur : 148 ms QT Int : 450 ms P-R-T Axes : 000 -75 094 degrees QTc Int : 456 ms Ventricular-paced rhythm Abnormal ECG When compared with ECG of 21-MAY-2023 03:01, No significant change was found Referred By: Yudi Hurtado Electronically Signed By:TONNY HANLEY MD
[2023-08-03] MEDS: Albuterol Sulfate 2.5 MG, Albuterol/Iprat 2.5/0.5MG 3 ML 3 ML INHALE (01:26)
[2023-08-03] MEDS: Magnesium Sulfate/H2O 2 GM/50 ML PIGGYBACK IV (01:44)
[2023-08-03 01:45] LABS: MANUAL DIFF FLAG NO
[2023-08-03 01:46] LABS: Basophils Absolute Auto 0.1 X10*3/uL (0.0-0.2); Basophils Percent Auto 0.4 % (0-2); Eosinophils Absolute Auto 0.7 X10*3/uL (0.0-0.4); Eosinophils Percent Auto 6.2 % (0-4); Hematocrit 42.6 % (37.0-47.0); Hemoglobin 13.9 g/dl (12.0-16.0); Imm Gran Abs Auto 0.03 X10*3/uL (0.00-0.03); Imm Gran Pct Auto 0.3 % (0.0-0.4); Lymphocytes Absolute Auto 1.5 X10*3/uL (1.2-4.9); Lymphocytes Percent Auto 13.7 % (20-40); Mean Corpuscular HGB Conc 32.6 g/dl (31.0-35.0); Mean Corpuscular Hemoglobin 28.8 pg (27.0-33.0); Mean Corpuscular Volume 88.4 fL (80.0-98.0); Mean Platelet Volume 9.5 fL (9.4-12.3); Monocytes Absolute Auto 0.8 X10*3/uL (0.1-1.2); Neutrophils Absolute Auto 8.1 x10*3/uL (2.0-8.3); Neutrophils Percent Auto 72.4 % (45-73); Platelet Count 328 X10*3/uL (160-400); Red Blood Count 4.82 X10*6/uL (4.20-5.50); Red Cell Distribution Width 13.2 % (11.0-16.0); White Blood Count 11.2 X10*3/uL (4.8-10.8)
[2023-08-03 01:47] LABS: Venous Blood Gas Refer to POC result
[2023-08-03 01:53] LABS: VBG Base Excess 7.9 mmol/L; VBG HCO3 31 mmol/L (22-26); VBG pCO2 39 mmHg; VBG pO2 193 mmHg
[2023-08-03 02:01] LABS: Lactic Acid 1.1 mmol/L (0.5-2.0)
[2023-08-03 02:06] LABS: Anion Gap 14 (12-20); Blood Urea Nitrogen 20 mg/dL (9-16); Carbon Dioxide 29 mmol/L (22-29); Chloride 104 mmol/L (96-108); Estimated Glomerular Filt Rate > 60; Glucose Random 162 mg/dL (60-115); Potassium 4.2 mmol/L (3.3-5.1); Sodium 143 mmol/L (135-145)
[2023-08-03 02:09] LABS: B Type Natriuretic Peptide 75 pg/mL (<100)
[2023-08-03 02:21] LABS: Influenza A PCR NEGATIVE (Negative); Influenza B PCR NEGATIVE (Negative); Resp Syncy Virus RNA Qual PCR NEGATIVE (Negative); SARS COV2 PCR INHOUSE NEGATIVE (Negative)
--- NOTE | 2023-08-03 04:10 | P.HPHOSP_ITS ---
History of Present Illness Date of Service: 08/03/23 Chief Complaint: Dyspnea This is a 62-year-old female with pertinent history of hypertension, mood disorder, asthma/COPD overlap syndrome not on home oxygen, MARY not on CPAP, tobacco use disorder, history of TAVR, history of IVDA, who presents to the emergency department for evaluation of dyspnea. Patient states that she started having dyspnea which was worse with exertion and wheezing on the day of presentation. Also has been having nonproductive cough. Does not use oxygen at home. No chest discomfort palpitations. States she continues to smoke about 3 or 4 cigarettes per day. No fever, chills, abdominal pain, changes in urinary or bowel habits. Patient states it feels like her asthma attack in the past. In the emergency department, patient with continued wheezing despite multiple DuoNeb treatments. Review of Systems 2 Cardiovascular: Cardiovascular: Reports dyspnea on exertion Respiratory: Respiratory: Reports cough, Reports dyspnea on exertion and Reports wheezing Gastrointestinal: Gastrointestinal: Reports no additional gastrointestinal complaints Genitourinary: Genitourinary: Reports no additional female genitourinary complaints Musculoskeletal: Musculoskeletal: Reports no additional musculoskeletal complaints Allergic/Immunologic: Allergic/Immunologic: Reports wheezing [facility] Medical History Pacemaker Asthma with exacerbation Smoking Restrictive airway disease MARY (obstructive sleep apnea) COPD (chronic obstructive pulmonary disease) MARY on CPAP Reactive airways dysfunction syndrome Rheumatoid arthritis Fibromyalgia GERD (gastroesophageal reflux disease) MARY (obstructive sleep apnea) Aortic valve endocarditis COPD (chronic obstructive pulmonary disease) COPD exacerbation Overactive bladder Bronchitis Allergic rhinitis COPD (chronic obstructive pulmonary disease) Asthma Hx of cardiac pacemaker Hx of migraines Hx of coronary artery disease History of urinary incontinence Hx of essential hypertension History of depression Hx of drug abuse Hx of hyperlipidemia Hx of allergic rhinitis History of enuresis Hx of osteoarthritis Hx of pilonidal cyst Family history of GERD History of arthritis Hx of diabetes mellitus Surgical History History of surgical removal of pilonidal cyst Hx of bilateral cataract extraction Hx of colonoscopy History of cystoscopy History of hysterectomy Hx of aortic valve replacement Hx laparoscopic cholecystectomy History of epidermal inclusion cyst excision Social History Household Members: Family Household Members Other:: self Housing: Apartment Do you presently have visiting nurse or other home services: No Alcohol intake: former Comment: refusing alarms Patient Tobacco Use Status: Former Tobacco user Tobacco use type: Cigarette Cigarettes Per Day: 3 Smoked in Last 30 Days: No e-Cigarette/Vaping Use: Currently Using Second Hand Smoke Exposure: Yes Use of substances other than those prescribed or required for medical reasons: No Advance Directives: Yes Advance Directives on File: Yes Advance Directives Date on File: 11/08/21 service: No Current occupational status: unemployed and disabled Meds Allergies Allergy/AdvReac Type Severity Reaction Status Date / Time latex [LATEX] Allergy Severe DIFFICULTY Verified 08/03/23 01:01 BREATHING aspirin [Aspirin] Allergy Intermediate ITCHING, Verified 08/03/23 01:01 itchiness ciprofloxacin [From CIPRO] Allergy Intermediate DIAPHORESIS Verified 08/03/23 01:01 /PURITIS Penicillins [PENICILLINS] Allergy Unknown UNKNOWN Verified 08/03/23 01:01 HEMALATHA Inhibitors AdvReac Intermediate COUGH Verified 08/03/23 01:01 [HEMALATHA INHIBITORS] Home Medications ?Medication ?Instructions ?Recorded ?Confirmed ?Last Taken ?Type amitriptyline 25 mg tablet 25 mg PO BEDTIME 07/03/22 05/21/23 11/27/22 History bisacodyl 5 mg tablet,delayed 10 mg PO BEDTIME 07/03/22 05/21/23 11/27/22 History release calcium carbonate 600 mg-vitamin 1 tab PO DAILY 07/03/22 05/21/23 11/28/22 History D3 10 mcg (400 unit) tablet clopidogrel 75 mg tablet 75 mg PO DAILY 07/03/22 05/21/23 11/28/22 History cyanocobalamin (vitamin B-12) 1,000 mcg PO QAM 07/03/22 05/21/23 11/28/22 History 1,000 mcg tablet folic acid 1 mg tablet 1 mg PO DAILY 07/03/22 05/21/23 11/28/22 History gabapentin 100 mg capsule 100 mg PO TID 07/03/22 05/21/23 11/28/22 History hydrochlorothiazide 12.5 mg tablet 12.5 mg PO DAILY 07/03/22 05/21/23 11/28/22 History montelukast 10 mg tablet 10 mg PO BEDTIME 07/03/22 05/21/23 11/27/22 History sertraline 50 mg tablet 50 mg PO DAILY 07/03/22 05/21/23 11/28/22 History melatonin 5 mg tablet 5 mg PO BEDTIME PRN insomnia 03/14/23 05/21/23 Unknown History tiotropium bromide 18 mcg capsule 1 cap inhalation DAILY 03/14/23 05/21/23 Unknown History with inhalation device (Spiriva with HandiHaler) albuterol sulfate 2.5 mg/3 mL 2.5 mg inhalation Q4H PRN 05/21/23 05/21/23 Unknown History (0.083 %) solution for nebulization Shortness Of Breath/Wheezing albuterol sulfate 90 mcg/actuation 2 puff inhalation Q4H PRN Wheezing 05/21/23 05/21/23 Unknown History aerosol inhaler (Ventolin HFA) Physical Exam 2 Vital Signs and Narrative: Vital Signs: Last Vital Signs Temp 97.6 F 08/03/23 03:42 Pulse 62 08/03/23 03:42 Resp 20 08/03/23 03:42 BP 162/79 H 08/03/23 03:42 Pulse Ox 93 08/03/23 03:42 O2 Del Method Room Air 08/03/23 03:42 Oxygen Flow Rate 2 08/03/23 00:58 BMI result Body Mass Index 28.5 Middle-aged female lying in bed in mild distress Neck supple, no JVD Regular rate and rhythm, S1-S2 heard Bilateral wheezing without crackles Abdomen soft nontender, no guarding, no rigidity Patient is awake, alert and oriented to self, place, time and person ; no focal motor deficit Psych: Normal mood No pedal edema Results Labs 08/03/23 01:37 08/03/23 01:37 Labs: Laboratory Results - last 24 hr 08/03/23 08/03/23 01:37 01:45 MCV 88.4 MCH 28.8 MCHC 32.6 RDW 13.2 Plt Count 328 MPV 9.5 Immature Gran % (Auto) 0.3 Neut % (Auto) 72.4 Lymph % (Auto) 13.7 L [place] % (Auto) 7.0 Eos % (Auto) 6.2 H Baso % (Auto) 0.4 Lymph # (Auto) 1.5 [place] # (Auto) 0.8 Eos # (Auto) 0.7 H Baso # (Auto) 0.1 Abs Immat Gran (auto) 0.03 Absolute Neuts (auto) 8.1 Absolute Nucleated RBC 0.000 Nucleated RBC % (auto) 0.0 VBG pH 7.50 H VBG pCO2 39 VBG pO2 193 VBG HCO3 31 H VBG O2 Saturation 100.0 VBG Base Excess 7.9 Anion Gap 14 Estim Creat Clear Calc 60.0 Estimated GFR > 60 Random Glucose 162 H Lactic Acid 1.1 Calcium 10.0 D Troponin I High Sens 9.0 D B-Natriuretic Peptide 75 Influenza Type A (PCR) NEGATIVE Influenza Type B (PCR) NEGATIVE RSV RNA Qual (PCR) NEGATIVE SARS-CoV-2 RNA (RT-PCR) NEGATIVE Imaging Radiologist's Impressions: Impressions Chest X-Ray 08/03/23 01:58 IMPRESSION: No acute pulmonary findings. Mildly prominent cardiac silhouette. Assessment and Plan (1) Asthma with exacerbation: Status: Acute Plan This is a 62-year-old female with pertinent history of essential hypertension, mood disorder, asthma/COPD overlap syndrome not on home oxygen, MARY not on CPAP, tobacco use disorder who presents to the emergency department for evaluation of dyspnea. #. Acute respiratory distress due to acute exacerbation of asthma/COPD overlap syndrome: Will admit patient and initiate scheduled and p.r.n. DuoNebs. Initiating systemic steroids. Continue home inhalers #. Essential hypertension: On hydrochlorothiazide #. Mood disorder: Continue home mood stabilizers #. AMRY: Noncompliant with CPAP #. Tobacco use disorder: Counseled regarding cessation. Refused nicotine patch. Med rec pending DVT prophylaxis: Lovenox Full code Quality Stroke Does the patient have a stroke diagnosis?: No VTE Prior VTE?: No VTE Risk Level:: Medical - moderate - high VTE Device Contraindication: Treatment Not Indicated VTE Drug Contraindication: N/A - Med Ordered
[2023-08-03 06:22] LABS: Anion Gap 14 (12-20); Blood Urea Nitrogen 16 mg/dL (9-16); Calcium 9.6 mg/dL (8.4-10.2); Carbon Dioxide 26 mmol/L (22-29); Chloride 105 mmol/L (96-108); Creatinine Clr Calc Pharmacy 66.6; Estimated Glomerular Filt Rate > 60; Glucose Random 157 mg/dL (60-115); Potassium 3.5 mmol/L (3.3-5.1); Sodium 141 mmol/L (135-145)
[2023-08-03 06:27] LABS: Basophils Percent Auto 0.2 % (0-2); Eosinophils Percent Auto 0.1 % (0-4); Hematocrit 43.5 % (37.0-47.0); Hemoglobin 14.1 g/dl (12.0-16.0); Imm Gran Abs Auto 0.04 X10*3/uL (0.00-0.03); Imm Gran Pct Auto 0.4 % (0.0-0.4); Lymphocytes Absolute Auto 0.4 X10*3/uL (1.2-4.9); Lymphocytes Percent Auto 3.6 % (20-40); MANUAL DIFF FLAG SCAN; Mean Corpuscular HGB Conc 32.4 g/dl (31.0-35.0); Mean Corpuscular Hemoglobin 28.7 pg (27.0-33.0); Mean Corpuscular Volume 88.6 fL (80.0-98.0); Mean Platelet Volume 9.7 fL (9.4-12.3); Monocytes Absolute Auto 0.1 X10*3/uL (0.1-1.2); Monocytes Percent Auto 0.6 % (2-11); Neutrophils Absolute Auto 9.1 x10*3/uL (2.0-8.3); Neutrophils Percent Auto 95.1 % (45-73); Platelet Count 327 X10*3/uL (160-400); Red Blood Count 4.91 X10*6/uL (4.20-5.50); Red Cell Distribution Width 13.2 % (11.0-16.0); SCAN SMEAR FLAG 1; White Blood Count 9.6 X10*3/uL (4.8-10.8)
[2023-08-03 07:10] LABS: SLIDE REVIEW VERIFIED
[2023-08-03] MEDS: Albuterol/Iprat 2.5/0.5MG 3 ML AMPUL.NEB INHALE ×3 (07:30→18:58)
[2023-08-03] MEDS: 0.9 % Sodium Chloride Flush 3 ML SYRINGE IVFLUSH ×3 (08:38→20:04)
[2023-08-03] MEDS: methylPREDNISolone Sod Succ 40 MG/ML VIAL IVPUSH ×2 (08:38→20:05)
--- NOTE | 2023-08-03 08:45 | PC.NURSE ---
assumed care of pt at 0700, pt a&ox4, vss, maintaining O2 sat on 2L O2 via NC, bilateral wheezing. PIV from overnight fell out per pt, additional access obtained - 22G PIV R upper arm. medicated per APR. pt denies any needs, no new orders at this time. pt pending bed assignment.
[2023-08-03 09:02] LABS: Estimated Average Glucose 108 mg/dL; Hemoglobin A1c % 5.4 % (<6.0)
--- NOTE | 2023-08-03 09:25 | PHA.MEDREC ---
Pharmacy Consult ? Medication Reconciliation Pharmacy has completed the medication reconciliation. spoke with patient through an social group worker, she confirmed she uses the [facility] med boxes and takes whatever is dispensed in those, used claim history to confirm these. She confirmed her inhalers, she is not using any nicotine products, she said she does not use lidocaine patches or the diclofenac gel.
[2023-08-03 09:31] LABS: Procalcitonin 0.13 ng/mL
--- NOTE | 2023-08-03 09:38 | MHC.CM.PN ---
Patient lives alone and has daily HEALTH EDUCATION COORDINATOR services. She uses a cane for ambulation assist. HCP on file and verified ANALIA signed an d left for patient. HELMS 08/02 original placed in chart. Case management following for DC needs. Patient may need assist with transportation at time of DC.
--- NOTE | 2023-08-03 12:10 | P.EN_ITS ---
Event Note Date of Service: 08/03/23 Event Note: Day hospitalist update S: wheezing/dyspnea improved no purulent sputum This history was taken in [place] from the patient. O: Temp Pulse Resp BP Pulse Ox O2 Del Method 96.5 F L 63 20 130/63 94 Room Air 08/03/23 09:01 08/03/23 09:01 08/03/23 09:01 08/03/23 09:01 08/03/23 09:01 08/03/23 09:01 Gen: in no acute distress HEENT: sclera anicteric, moist mucus membranes Neck: supple Lungs: expiratory wheezing Heart: regular rate and rhythm, systolic murmur Abd: soft, non-tender, non-distended Ext: no edema Skin: warm/well-perfused Neuro: alert and oriented x3, no focal findings Psych: appropriate affect A/P: d1 62yo F with HTN, asthma/COPD, MARY not on CPAP, hx IE s/p aortic valve root homograft (2004) and hx CHB s/p PPM asthma/COPD exac - IV steroids, nebulized bronchodilators, montelukast HTN - continue HCTZ, amlodipine severe aortic stenosis hx IE s/p aortic valve root homograft - [place] by [facility] - continue clopidogrel CHB s/p PPM - called [facility] and pt is scheduled for battery change 08/06/23 [she thought it was today] neuropathy - gabapentin, amitriptylline mood disorder - sertraline tobacco abuse - refused NRT VTE ppx - LMWH dispo - TBD In my clinical judgment, the patient requires continued hospitalization for the following reasons: COPD treatment Time Spent With Patient Time: Total time managing care of this patient today __35__ minutes.
[2023-08-03] MEDS: Cyanocobalamin (Vitamin B-12) 1,000 MCG TABLET 1000 MCG PO (13:32)
[2023-08-03] MEDS: Gabapentin 100 MG CAPSULE PO ×2 (15:42→20:07)
[2023-08-03] MEDS: Amitriptyline HCl 25 MG TABLET PO (20:07)
[2023-08-03] MEDS: bisacodyL 5 MG TABLET.DR 10 MG PO (20:07)
[2023-08-03] MEDS: Montelukast Sodium 10 MG TABLET PO (20:08)
[2023-08-03] MEDS: Acetaminophen 325 MG TABLET 650 MG PO (21:20)
[2023-08-04] VITALS (7 sets, daily range): BP systolic 130–137; BP diastolic 65–70; PULSE 64–84; RESP 12–18; TEMP 36.1–36.2; O2SAT 94–99
[2023-08-04] MEDS: Albuterol/Iprat 2.5/0.5MG 3 ML AMPUL.NEB INHALE ×2 (07:57→11:33)
[2023-08-04] MEDS: Cyanocobalamin (Vitamin B-12) 1,000 MCG TABLET 1000 MCG PO (08:43)
[2023-08-04] MEDS: Folic Acid 1 MG TABLET PO (08:43)
[2023-08-04] MEDS: Clopidogrel Bisulfate 75 MG TABLET PO (08:43)
[2023-08-04] MEDS: Gabapentin 100 MG CAPSULE PO ×2 (08:43→14:31)
[2023-08-04] MEDS: methylPREDNISolone Sod Succ 40 MG/ML VIAL IVPUSH (08:43)
[2023-08-04] MEDS: Sertraline HCL 50 MG TABLET PO (08:43)
[2023-08-04] MEDS: 0.9 % Sodium Chloride Flush 3 ML SYRINGE IVFLUSH (08:43)
[2023-08-04] MEDS: hydroCHLOROthiazide 12.5 MG TABLET PO (08:43)
[2023-08-04] MEDS: Acetaminophen 325 MG TABLET 650 MG PO (09:07)
[2023-08-04] MEDS: Tiotropium Bromide 2.5 mcg 1 PUFF/2.5 MCG MIST.INHAL 2 PUFF INHALE (11:33)
--- NOTE | 2023-08-04 12:57 | PM.DS ---
DS: Providers Provider Date of Service: 08/04/23 Date of admission: 08/03/23 04:09 Date of discharge: 08/04/23 Primary care physician: Ting Hampton MD DS: Diagnosis Discharge Diagnosis (1) Pacemaker: Status: Acute (2) Insertional Achilles tendinopathy: Status: Acute (3) Acute exacerbation of COPD with asthma: Status: Resolved DS: Summary Hospital Course Hospital Course: From the history and physical by the admitting hospitalist, Saúl Delaney MD, 08/03/23: This is a 62-year-old female with pertinent history of hypertension, mood disorder, asthma/COPD overlap syndrome not on home oxygen, MARY not on CPAP, tobacco use disorder, history of TAVR, history of IVDA, who presents to the emergency department for evaluation of dyspnea. Patient states that she started having dyspnea which was worse with exertion and wheezing on the day of presentation. Also has been having nonproductive cough. Does not use oxygen at home. No chest discomfort palpitations. States she continues to smoke about 3 or 4 cigarettes per day. No fever, chills, abdominal pain, changes in urinary or bowel habits. Patient states it feels like her asthma attack in the past. In the emergency department, patient with continued wheezing despite multiple DuoNeb treatments. 62yo F with HTN, asthma/COPD, MARY not on CPAP, hx IE s/p aortic valve root homograft (2004) and hx CHB s/p PPM admitted for asthma/COPD exacerbation. She improved rapidly with IV steroids and nebulized bronchodilators. She was discharged home on prednisone taper. She is scheduled for a pacemaker generator change at [facility] on 08/06/23 and was urged to keep this appointment. She developed an acute flare of right-sided Achilles insertional tendinopathy, so home PT was arranged, along with outpatient Orthopedics cosultation. Time Attestation Discharge Coordination Time (in mins): 35 Quality: Safe Use of Opioids Does Pt have an Active Cancer Diagnosis on the Problem List?: No Quality: Stroke Does the patient have a stroke diagnosis?: No Physical Exam Vital Signs: Vital Signs: Last Vital Signs Temp 96.9 F 08/04/23 12:29 Pulse 64 08/04/23 12:29 Resp 14 08/04/23 12:29 BP 137/70 08/04/23 12:29 Pulse Ox 98 08/04/23 12:29 O2 Del Method Nasal Cannula 08/04/23 12:29 O2 Flow Rate 2 08/04/23 12:29 Oxygen Flow Rate 2 08/03/23 00:58 BMI result Body Mass Index 27.3 Gen: in no acute distress HEENT: sclera anicteric, moist mucus membranes Neck: supple Lungs: clear to auscultation bilaterally Heart: regular rate and rhythm, no murmurs Abd: soft, non-tender, non-distended Ext: no edema, tender R Achilles at insertion Skin: warm/well-perfused Neuro: alert and oriented x3, no focal findings Psych: appropriate affect DS: Data Data Completed and Pending Completed studies during hospitalization [Text1]: Laboratory Results WBC 9.6 X10*3/uL (4.8-10.8) 08/03/23 05:49 RBC 4.91 X10*6/uL (4.20-5.50) 08/03/23 05:49 Hgb 14.1 g/dl (12.0-16.0) 08/03/23 05:49 Hct 43.5 % (37.0-47.0) 08/03/23 05:49 MCV 88.6 fL (80.0-98.0) 08/03/23 05:49 MCH 28.7 pg (27.0-33.0) 08/03/23 05:49 MCHC 32.4 g/dl (31.0-35.0) 08/03/23 05:49 RDW 13.2 % (11.0-16.0) 08/03/23 05:49 Plt Count 327 X10*3/uL (160-400) 08/03/23 05:49 MPV 9.7 fL (9.4-12.3) 08/03/23 05:49 Immature Gran % (Auto) 0.4 % (0.0-0.4) 08/03/23 05:49 Neut % (Auto) 95.1 % (45-73) H 08/03/23 05:49 Lymph % (Auto) 3.6 % (20-40) L 08/03/23 05:49 [place] % (Auto) 0.6 % (2-11) L 08/03/23 05:49 Eos % (Auto) 0.1 % (0-4) 08/03/23 05:49 Baso % (Auto) 0.2 % (0-2) 08/03/23 05:49 Lymph # (Auto) 0.4 X10*3/uL (1.2-4.9) L 08/03/23 05:49 [place] # (Auto) 0.1 X10*3/uL (0.1-1.2) 08/03/23 05:49 Eos # (Auto) 0.0 X10*3/uL (0.0-0.4) 08/03/23 05:49 Baso # (Auto) 0.0 X10*3/uL (0.0-0.2) 08/03/23 05:49 Abs Immat Gran (auto) 0.04 X10*3/uL (0.00-0.03) H 08/03/23 05:49 Absolute Neuts (auto) 9.1 x10*3/uL (2.0-8.3) H 08/03/23 05:49 Absolute Nucleated RBC 0.000 X10*3/uL (0.0-0.012) 08/03/23 05:49 Nucleated RBC % (auto) 0.0 /100WBC (0.0-0.2) 08/03/23 05:49 Smear Tech's Comments VERIFIED 08/03/23 05:49 VBG pH 7.50 (7.32-7.43) H 08/03/23 01:45 VBG pCO2 39 mmHg 08/03/23 01:45 VBG pO2 193 mmHg 08/03/23 01:45 VBG HCO3 31 mmol/L (22-26) H 08/03/23 01:45 VBG O2 Saturation 100.0 % 08/03/23 01:45 VBG Base Excess 7.9 mmol/L 08/03/23 01:45 Sodium 141 mmol/L (135-145) 08/03/23 05:49 Potassium 3.5 mmol/L (3.3-5.1) 08/03/23 05:49 Chloride 105 mmol/L (96-108) 08/03/23 05:49 Carbon Dioxide 26 mmol/L (22-29) 08/03/23 05:49 Anion Gap 14 (12-20) 08/03/23 05:49 BUN 16 mg/dL (9-16) 08/03/23 05:49 Creatinine 0.73 mg/dL (0.5-1.4) 08/03/23 05:49 Estim Creat Clear Calc 66.6 08/03/23 05:49 Estimated GFR > 60 08/03/23 05:49 Random Glucose 157 mg/dL (60-115) H 08/03/23 05:49 Estimat Average Glucose 108 mg/dL 08/03/23 05:49 Hemoglobin A1c % 5.4 % (<6.0) 08/03/23 05:49 Lactic Acid 1.1 mmol/L (0.5-2.0) 08/03/23 01:37 Calcium 9.6 mg/dL (8.4-10.2) 08/03/23 05:49 Troponin I High Sens 9.0 ng/L (<3.5-17.0) D 08/03/23 01:37 B-Natriuretic Peptide 75 pg/mL (<100) 08/03/23 01:37 Procalcitonin 0.13 ng/mL 08/03/23 01:37 Influenza Type A (PCR) NEGATIVE (Negative) 08/03/23 01:37 Influenza Type B (PCR) NEGATIVE (Negative) 08/03/23 01:37 RSV RNA Qual (PCR) NEGATIVE (Negative) 08/03/23 01:37 SARS-CoV-2 RNA (RT-PCR) NEGATIVE (Negative) 08/03/23 01:37 Impressions Chest X-Ray 08/03/23 01:58 IMPRESSION: No acute pulmonary findings. Mildly prominent cardiac silhouette. Ankle X-Ray 08/04/23 10:46 IMPRESSION: 1. No acute visible fracture or dislocation. 2. Enthesopathy at the Achilles tendon insertion site. 3. Slight soft tissue prominence about the ankle. Labs on day of discharge: Preliminary micro results at discharge 08/03/23 01:37 Blood Culture - Preliminary Blood - Venous No growth after 24 hours. 08/03/23 01:37 Blood Culture - Preliminary Blood - Venous No growth after 24 hours. Discharge Plan Discharge Anticipated Discharge Date/Time: 08/04/23 12:47 Patient Disposition: Home Health Service Discharge Diagnosis: asthma exacerbation Achilles tendinopathy Referrals: [facility] [Provider Group] - 2 Weeks Ting Packer MD [Primary Care Provider] - 1 Week Discharge Medications: New prednisone 20 mg tablet 40 mg PO DAILY Qty: 6 0RF lidocaine 4 % adhesive patch,medicated 1 patch topical DAILY PRN (Reason: pain of heel) Qty: 30 0RF Continued acetaminophen 650 mg tablet extended release 650 mg PO Q8H PRN (Reason: for pain) Qty: 90 3RF tiotropium bromide [Spiriva with HandiHaler] 18 mcg capsule, w/inhalation device 1 cap inhalation DAILY melatonin 5 mg tablet 5 mg PO BEDTIME PRN (Reason: insomnia) montelukast 10 mg tablet 10 mg PO BEDTIME bisacodyl 5 mg tablet,delayed release (DR/EC) 10 mg PO BEDTIME gabapentin 100 mg capsule 100 mg PO TID sertraline 50 mg tablet 50 mg PO DAILY calcium carbonate-vitamin D3 600 mg-10 mcg (400 unit) tablet 1 tab PO DAILY hydrochlorothiazide 12.5 mg tablet 12.5 mg PO DAILY clopidogrel 75 mg tablet 75 mg PO DAILY amitriptyline 25 mg tablet 25 mg PO BEDTIME folic acid 1 mg tablet 1 mg PO DAILY cyanocobalamin (vitamin B-12) 1,000 mcg tablet 1,000 mcg PO QAM albuterol sulfate 2.5 mg /3 mL (0.083 %) solution for nebulization 2.5 mg inhalation Q4H PRN (Reason: Shortness Of Breath/Wheezing) albuterol sulfate [Ventolin HFA] 90 mcg/actuation Hfa Aerosol Inhaler 2 puff INHALATION Q4H PRN (Reason: Wheezing) amlodipine 5 mg tablet 5 mg PO QAM Discharge Orders: Discharge Order (Routine); Ordered 08/04/23 Ordered By: Queenie Ku Diet: Low salt diet Activity on Discharge: As tolerated Stand Alone Forms: Patient Portal Discharge page Print Language: Serbian Care Plan Goals: lung health relief of heel pain Health Concerns: asthma exacerbation Achilles tendinopathy pacemaker in place Plan of Treatment: take prednisone 40 mg daily for 3 days; continue Spiriva; use albuterol nebulizer and inhaler as needed for rescue Please follow up with your primary care doctor within 1 week. Return to the hospital if you experience recurrent or worsening symptoms. use acetaminophen and lidocaine patch for relief of heel pain outpatient referral to [facility] keep your appointment with [facility] on 08/06/23 for pacemaker battery change Assessment: See Discharge Summary.
--- NOTE | 2023-08-04 13:08 | P.F2F_ITS ---
Service Date Service Date: 08/04/23 Encounter Date of encounter: 08/04/23 Reasons for Services Signs and symptoms assessed: Achilles pain Reason for physical therapy: home safety and mobility, therapeutic exercises, restore joint function, gait/transfer training, assess need for DME, ADL training and energy conservation MD Overseeing Care: Ting Hampton Homebound: Leaving the home is medically contraindicated at this time without the asist of a device and/or another person due th the listed conditions above and below. Reason homebound: pain with ambulation Homebound supporting statement: see PT evaluation from 08/04/23 Certification: Based on the above findings, I certify that this patient is confined to the home and needs intermittent senior care care, physical therapy and/or speech therapy, or continues to need occupational therapy. The patient is under my care, and I have initiated the establishment of the plan of care. The patient will be followed by a physician who will periodically review the plan of care. Time Spent With Patient Time: Total time managing care of this patient today ____ minutes.
--- NOTE | 2023-08-04 14:39 | MHC.CM.PN ---
Addendum entered by Jane Jeong RN 08/04/23 15:22: Patient now requesting Lyft ride home. Scheduled for 330pm. RN aware. Addendum entered by Jane Jeong RN 08/04/23 14:43: Patient now reporting her brother will provide transport home. RN aware. Original Note: Patient medically cleared for dc home w/ PT services via [facility]. Patient reports she needs BLS. BLS scheduled for 1844. RN aware.
== END 2023-08-04 16:10 | disposition home health service (06) ==
LOC: HO.ED 03:37 → HO.EDOVER 04:13 → HO.S3 15:42
PROVIDERS: Admitting Provider Student in an Organized Health Care Education/Training Program; Emergency Provider Emergency Medicine Emergency Medical Services; PCP Internal Medicine; Visit Provider Family Medicine
DX: J44.1 Chronic obstructive pulmonary disease with (acute) exacerbation (principal); M76.60 Achilles tendinitis, unspecified leg; Z95.0 Presence of cardiac pacemaker; R06.02 Shortness of breath; R05.9 Cough, unspecified; R07.9 Chest pain, unspecified; F39 Unspecified mood [affective] disorder; G47.33 Obstructive sleep apnea (adult) (pediatric); I10 Essential (primary) hypertension; G62.9 Polyneuropathy, unspecified; I35.0 Nonrheumatic aortic (valve) stenosis; Q24.6 Congenital heart block; Z91.199 Patient's noncompliance with other medical treatment and regimen due to unspecified reason; F17.210 Nicotine dependence, cigarettes, uncomplicated
CPT/HCPCS: 0241U; 71045; 73610; 80048; 82803; 83036; 83605; 83880; 84145; 84484; 85025; 87040; 93005; 94640; 96365; 96376; 97162; 99221; 99285; J2919; J3475

== ENCOUNTER → 2023-08-03 01:12 | Outpatient (BNV) | payer MEDICAID, SELFPAY | PROVIDERS: Admitting Provider Student in an Organized Health Care Education/Training Program; Emergency Provider Emergency Medicine Emergency Medical Services; PCP Internal Medicine; Visit Provider Internal Medicine Cardiovascular Disease | DX: R06.02 Shortness of breath (principal); R94.31 Abnormal electrocardiogram [ECG] [EKG] | CPT/HCPCS: 93010 ==

== ENCOUNTER → 2023-08-03 04:09 | Outpatient (BNV) | payer MEDICAID, SELFPAY | PROVIDERS: Admitting Provider Student in an Organized Health Care Education/Training Program; Emergency Provider Emergency Medicine Emergency Medical Services; PCP Internal Medicine; Visit Provider Student in an Organized Health Care Education/Training Program | DX: J45.901 Unspecified asthma with (acute) exacerbation (principal) | CPT/HCPCS: 99222; 99239; 99499; G0180 ==

== ENCOUNTER 2023-08-13 09:29 | Inpatient (IN) | payer MEDICAID, SELFPAY ==
[2023-08-13] VITALS (13 sets, daily range): BP systolic 128–154; BP diastolic 62–91; PULSE 60–70; RESP 10–30; TEMP 36.2–37.2; O2SAT 92–99; BMI 28.2
--- NOTE | ~2023-08-13 | XR_ITS ---
EXAMINATION: XR CHEST CLINICAL INFORMATION: Dyspnea COMPARISON: 08/03/2023 TECHNIQUE: Frontal view of the chest was obtained. FINDINGS: No significant abnormality is noted involving the heart, lungs, mediastinum, bony thorax or soft tissues. Again noted is median sternotomy and a right chest wall single lead pacemaker with tip in RV apex. XR/XR chest 1V IMPRESSION: Unremarkable examination.
--- NOTE | 2023-08-13 09:33 | ECG_ITS ---
Test Reason : sob Blood Pressure : / mmHG Vent. Rate : 061 BPM Atrial Rate : 047 BPM P-R Int : 000 ms QRS Dur : 138 ms QT Int : 476 ms P-R-T Axes : 000 -78 095 degrees QTc Int : 479 ms Ventricular-paced rhythm Abnormal ECG When compared with ECG of 03-AUG-2023 01:36, No significant change was found Referred By: Dottie Gambino Electronically Signed By:TONNY HANLEY MD
--- NOTE | 2023-08-13 09:35 | ED_ITS ---
HPI - Asthma General Chief Complaint: Dyspnea Stated Complaint: SOB 90% RA, ON DUONEB 99% PER EMS Time Seen by Provider: 08/13/23 09:31 Source: patient, old records reviewed and site interpreter Limitations: no limitations History of Present Illness ED Provider: JACKSON CARCAMO Narrative: 62 yo female with PMH of TAVR, asthma/COPD overlap syndrome not on home O2 but has been borrowing a friends oxygen, MARY not on CPAP, states she does not smoke anymore, HTN, IVDA just admitted here on 08/02 to 08/03 for asthma comes in with c/o increased dyspnea and work of breathing for a few days and cough and congestion. No fevers EMS found her 90% on RA. 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 , shortness of breath and wheezing Onset (ago): day(s) (3) Severity: worse than usual Context: none known Associated symptoms: productive cough Asthma History: childhood onset Treatments Prior to Arrival: inhaled bronchodilator, oxygen and other (IM steroid) Related Data Home Medications ?Medication ?Instructions ?Recorded ?Confirmed amitriptyline 25 mg tablet 25 mg PO BEDTIME 07/03/22 08/03/23 bisacodyl 5 mg tablet,delayed 10 mg PO BEDTIME 07/03/22 08/03/23 release calcium carbonate 600 mg-vitamin 1 tab PO DAILY 07/03/22 08/03/23 D3 10 mcg (400 unit) tablet clopidogrel 75 mg tablet 75 mg PO DAILY 07/03/22 08/03/23 cyanocobalamin (vitamin B-12) 1,000 mcg PO QAM 07/03/22 08/03/23 1,000 mcg tablet folic acid 1 mg tablet 1 mg PO DAILY 07/03/22 08/03/23 gabapentin 100 mg capsule 100 mg PO TID 07/03/22 08/03/23 hydrochlorothiazide 12.5 mg tablet 12.5 mg PO DAILY 07/03/22 08/03/23 montelukast 10 mg tablet 10 mg PO BEDTIME 07/03/22 08/03/23 sertraline 50 mg tablet 50 mg PO DAILY 07/03/22 08/03/23 melatonin 5 mg tablet 5 mg PO BEDTIME PRN insomnia 03/14/23 08/03/23 tiotropium bromide 18 mcg capsule 1 cap inhalation DAILY 03/14/23 08/03/23 with inhalation device (Spiriva with HandiHaler) albuterol sulfate 2.5 mg/3 mL 2.5 mg inhalation Q4H PRN 05/21/23 08/03/23 (0.083 %) solution for nebulization Shortness Of Breath/Wheezing albuterol sulfate 90 mcg/actuation 2 puff inhalation Q4H PRN Wheezing 05/21/23 08/03/23 aerosol inhaler (Ventolin HFA) amlodipine 5 mg tablet 5 mg PO QAM 08/03/23 08/03/23 Previous Rx's ?Medication ?Instructions ?Recorded acetaminophen 650 mg 650 mg PO Q8H PRN for pain #90 tabs 01/04/23 tablet,extended release lidocaine 4 % topical patch 1 patch topical DAILY PRN pain of 08/04/23 heel #30 ea prednisone 20 mg tablet 40 mg (2 x 20 mg) PO DAILY #6 tabs 08/04/23 Allergies Allergy/AdvReac Type Severity Reaction Status Date / Time latex [LATEX] Allergy Severe DIFFICULTY Verified 08/13/23 10:35 BREATHING aspirin [Aspirin] Allergy Intermediate ITCHING, Verified 08/13/23 10:35 itchiness ciprofloxacin [From CIPRO] Allergy Intermediate DIAPHORESIS Verified 08/13/23 10:35 /PURITIS Penicillins [PENICILLINS] Allergy Unknown UNKNOWN Verified 08/13/23 10:35 HEMALATHA Inhibitors AdvReac Intermediate COUGH Verified 08/13/23 10:35 [HEMALATHA INHIBITORS] Review of Systems 2 Review of Systems: Constitutional : No Fever, No Chills ENT/Mouth : No Hoarseness, No sore throat, No Rhinorrhea Eyes: No Redness, No Discharge, No Vision Changes Cardiovascular : No Chest Pain, positive SOB, positive Dyspnea on Exertion, No Edema Respiratory : positive Cough, pos Sputum, positive Wheezing, Gastrointestinal : No Nausea, No Vomiting, No Diarrhea, No abdominal Pain Genitourinary : No Dysuria, No Hematuria Musculoskeletal : No joint pain, No Myalgias Skin : No rash Neuro : No Weakness, No Numbness, No Headache Psych : No anxiety, depression Heme/Lymph: No Bruising, No Bleeding All other systems reviewed and are negative PMFSH Past Medical History Attestation statement: The following information was validated with the patient. Source: old records reviewed Medical History Pacemaker Asthma with exacerbation Smoking Restrictive airway disease MARY (obstructive sleep apnea) COPD (chronic obstructive pulmonary disease) MARY on CPAP Reactive airways dysfunction syndrome Rheumatoid arthritis Fibromyalgia GERD (gastroesophageal reflux disease) MARY (obstructive sleep apnea) Aortic valve endocarditis COPD (chronic obstructive pulmonary disease) COPD exacerbation Overactive bladder Bronchitis Allergic rhinitis COPD (chronic obstructive pulmonary disease) Asthma Hx of cardiac pacemaker Hx of migraines Hx of coronary artery disease History of urinary incontinence Hx of essential hypertension History of depression Hx of drug abuse Hx of hyperlipidemia Hx of allergic rhinitis History of enuresis Hx of osteoarthritis Hx of pilonidal cyst Family history of GERD History of arthritis Hx of diabetes mellitus Surgical History History of surgical removal of pilonidal cyst Hx of bilateral cataract extraction Hx of colonoscopy History of cystoscopy History of hysterectomy Hx of aortic valve replacement Hx laparoscopic cholecystectomy History of epidermal inclusion cyst excision Social History Social History Household Members: Family Household Members Other:: self Housing: Apartment Do you presently have visiting nurse or other home services: No Alcohol intake: former Comment: refusing alarms Patient Tobacco Use Status: Former Tobacco user Tobacco use type: Cigarette Cigarettes Per Day: 3 e-Cigarette/Vaping Use: Currently Using Second Hand Smoke Exposure: Yes Advance Directives: Yes Advance Directives on File: Yes Advance Directives Date on File: 11/08/21 service: No Current occupational status: unemployed and disabled Physical Exam 2 Vital Signs: Vital Signs: Last Vital Signs Temp 98.9 F 08/13/23 09:42 Pulse 60 08/13/23 10:59 Resp 24 H 08/13/23 10:59 BP 147/90 H 08/13/23 09:42 Pulse Ox 92 08/13/23 10:52 O2 Del Method Room Air 08/13/23 10:52 BMI result Body Mass Index 28.2 Appearance: Alert. Oriented X3. moderate acute distress. Eyes: Pupils equal, round and reactive to light. ENT: Pharynx normal. Neck: Normal inspection. Neck supple. CVS: Normal heart rate and rhythm. Pulses normal. Respiratory: moderate respiratory distress - tachypnea and retractions labored. Breath sounds coarse and diffuse wheezes noted Abdomen: Soft and nontender. Skin: Skin warm and dry. Normal skin color. Extremities: No lower extremity edema. Neuro: Oriented X 3. No motor deficit. No sensory deficit. Medications Administered Generic Name Dose Route Start Last Admin Trade Name Freq PRN Reason Stop Dose Admin Magnesium Sulfate 2 gm in 50 mls @ 25 mls/hr 08/13/23 09:33 08/13/23 10:43 Magnesium Sulfate/H2o IV 08/13/23 11:32 Infused ONCE ONE Infusion Azithromycin 500 mg/ Sodium 250 mls @ 125 mls/hr 08/13/23 09:42 08/13/23 10:53 Chloride IV 08/13/23 11:41 125 mls/hr ONCE ONE Administration Discontinued Medications Generic Name Dose Route Start Last Admin Trade Name Freq PRN Reason Stop Dose Admin Albuterol Sulfate 7.5 mg/ 0 mg 08/13/23 09:38 08/13/23 09:43 Albuterol/Ipratropium 3 ml INHALE 08/13/23 09:39 1 each ONCE ONE Administration Albuterol Sulfate 7.5 mg/ 0 mg 08/13/23 09:52 08/13/23 09:56 Albuterol/Ipratropium 3 ml INHALE 08/13/23 09:53 1 each ONCE ONE Administration Albuterol Sulfate 2.5 mg/ 0 mg 08/13/23 10:50 08/13/23 10:59 Albuterol/Ipratropium 3 ml INHALE 08/13/23 10:51 1 dose ONCE ONE Administration Medical Decision Making Medical Decision Making [facility] Narrative: 62 yo female with PMH of TAVR, asthma/COPD overlap syndrome not on home O2, MARY not on CPAP, continues to smoke, HTN, IVDA just admitted here on 08/02 to 08/03 for asthma comes in with c/o asthma exacerbation needing to use oxygen at home at this time will need basic labs, CXR, nebs, IV magnesium was already given IM steroids by EMS. At this time start on azithromycin as well. Likely admit. Differential Diagnosis Differential Diagnoses: The differential diagnosis associated with the presentation includes COPD, bronchitis, asthma Admission/Observation Consideration of admission/observation: Escalation of care including admission/observation considered admit given hypoxia and work of breathing/ repeat treatments Consult Healthcare Provider Management of the patient was discussed with: Hospitalist (will admit) Lab Data [facility] Lab Attestation statement: I reviewed the patient's lab results. 08/13/23 10:01 08/13/23 10:01 Labs: Lab Results 08/13/23 08/13/23 Range/Units 10:01 11:00 WBC 13.0 H (4.8-10.8) X10*3/uL RBC 5.19 (4.20-5.50) X10*6/uL Hgb 15.2 (12.0-16.0) g/dl Hct 45.2 (37.0-47.0) % MCV 87.1 (80.0-98.0) fL MCH 29.3 (27.0-33.0) pg MCHC 33.6 (31.0-35.0) g/dl RDW 13.2 (11.0-16.0) % Plt Count 315 (160-400) X10*3/uL MPV 9.6 (9.4-12.3) fL Immature Gran % (Auto) 0.3 (0.0-0.4) % Neut % (Auto) 64.2 (45-73) % Lymph % (Auto) 16.8 L (20-40) % [place] % (Auto) 9.9 (2-11) % Eos % (Auto) 8.3 H (0-4) % Baso % (Auto) 0.5 (0-2) % Lymph # (Auto) 2.2 (1.2-4.9) X10*3/uL [place] # (Auto) 1.3 H (0.1-1.2) X10*3/uL Eos # (Auto) 1.1 H (0.0-0.4) X10*3/uL Baso # (Auto) 0.1 (0.0-0.2) X10*3/uL Abs Immat Gran (auto) 0.04 H (0.00-0.03) X10*3/uL Absolute Neuts (auto) 8.3 (2.0-8.3) x10*3/uL Absolute Nucleated RBC 0.000 (0.0-0.012) X10*3/uL Nucleated RBC % (auto) 0.0 (0.0-0.2) /100WBC VBG pH 7.39 (7.32-7.43) VBG pCO2 47 mmHg VBG pO2 57 mmHg VBG HCO3 29 H (22-26) mmol/L VBG O2 Saturation 88.0 % VBG Base Excess 3.3 mmol/L Lactic Acid 0.7 (0.5-2.0) mmol/L Troponin I High Sens 6.3 (<3.5-17.0) ng/L B-Natriuretic Peptide 63 (<100) pg/mL Influenza Type A (PCR) NEGATIVE (Negative) Influenza Type B (PCR) NEGATIVE (Negative) RSV RNA Qual (PCR) NEGATIVE (Negative) SARS-CoV-2 RNA (RT-PCR) NEGATIVE (Negative) Independent Interpretation I performed an independent interpretation of an: EKG and Plain X-Ray (no consolidation) Interpretation: Rate: 61 Rhythm: v paced [place]: left wide QRS complex. ST T wave : inverted t wave I and aVL, no YUKO qTC: 479 prior studies: no change from prior The study has been interpreted contemporaneously by me. . Radiology Impression Discussion of test interpretation with radiology: I have reviewed the radiologist's reading. Independent Historian Clinical information obtained from an independent historian. History obtained from or confirmed by: EMS External Record Review External record reviewed: Inpatient record Critical Care Time Critical Care Time Critical Care Time: Yes Total Critical Care Time: 60 Attestation: repeat nebs, IV magnesium, hypoxia intervention I attest to this time spent taking care of the patient Discharge Plan Discharge Clinical Impression: Acute exacerbation of chronic obstructive airways disease, Hypoxia Patient Disposition: Admitted As Inpatient Prescriptions: No Action acetaminophen 650 mg tablet extended release 650 mg PO Q8H PRN (Reason: for pain) Qty: 90 3RF tiotropium bromide [Spiriva with HandiHaler] 18 mcg capsule, w/inhalation device 1 cap inhalation DAILY melatonin 5 mg tablet 5 mg PO BEDTIME PRN (Reason: insomnia) montelukast 10 mg tablet 10 mg PO BEDTIME bisacodyl 5 mg tablet,delayed release (DR/EC) 10 mg PO BEDTIME gabapentin 100 mg capsule 100 mg PO TID sertraline 50 mg tablet 50 mg PO DAILY calcium carbonate-vitamin D3 600 mg-10 mcg (400 unit) tablet 1 tab PO DAILY hydrochlorothiazide 12.5 mg tablet 12.5 mg PO DAILY clopidogrel 75 mg tablet 75 mg PO DAILY amitriptyline 25 mg tablet 25 mg PO BEDTIME folic acid 1 mg tablet 1 mg PO DAILY cyanocobalamin (vitamin B-12) 1,000 mcg tablet 1,000 mcg PO QAM albuterol sulfate 2.5 mg /3 mL (0.083 %) solution for nebulization 2.5 mg inhalation Q4H PRN (Reason: Shortness Of Breath/Wheezing) albuterol sulfate [Ventolin HFA] 90 mcg/actuation Hfa Aerosol Inhaler 2 puff INHALATION Q4H PRN (Reason: Wheezing) amlodipine 5 mg tablet 5 mg PO QAM prednisone 20 mg tablet 40 mg PO DAILY Qty: 6 0RF lidocaine 4 % adhesive patch,medicated 1 patch topical DAILY PRN (Reason: pain of heel) Qty: 30 0RF Print Language: Czech
[2023-08-13] MEDS: Albuterol Sulfate 7.5 MG, Albuterol/Iprat 2.5/0.5MG 3 ML 3 ML INHALE ×2 (09:43→09:56)
--- NOTE | 2023-08-13 09:57 | PC.RT ---
Pt cmae in via EMS with severe SOB. Pt on tx by EMS. Pt audible wheezing and increased WOB. Pt given aerogen nebs x2 per protocol with some improvement. Pt SATs 95% on RA and HR WNL.
[2023-08-13] MEDS: Magnesium Sulfate/H2O 2 GM/50 ML PIGGYBACK IV (10:08)
[2023-08-13 10:10] LABS: MANUAL DIFF FLAG NO
[2023-08-13 10:11] LABS: Basophils Absolute Auto 0.1 X10*3/uL (0.0-0.2); Basophils Percent Auto 0.5 % (0-2); Eosinophils Absolute Auto 1.1 X10*3/uL (0.0-0.4); Eosinophils Percent Auto 8.3 % (0-4); Hematocrit 45.2 % (37.0-47.0); Hemoglobin 15.2 g/dl (12.0-16.0); Imm Gran Abs Auto 0.04 X10*3/uL (0.00-0.03); Imm Gran Pct Auto 0.3 % (0.0-0.4); Lymphocytes Absolute Auto 2.2 X10*3/uL (1.2-4.9); Lymphocytes Percent Auto 16.8 % (20-40); Mean Corpuscular HGB Conc 33.6 g/dl (31.0-35.0); Mean Corpuscular Hemoglobin 29.3 pg (27.0-33.0); Mean Corpuscular Volume 87.1 fL (80.0-98.0); Mean Platelet Volume 9.6 fL (9.4-12.3); Monocytes Absolute Auto 1.3 X10*3/uL (0.1-1.2); Monocytes Percent Auto 9.9 % (2-11); Neutrophils Absolute Auto 8.3 x10*3/uL (2.0-8.3); Neutrophils Percent Auto 64.2 % (45-73); Platelet Count 315 X10*3/uL (160-400); Red Blood Count 5.19 X10*6/uL (4.20-5.50); Red Cell Distribution Width 13.2 % (11.0-16.0)
[2023-08-13 10:40] LABS: B Type Natriuretic Peptide 63 pg/mL (<100); Lactic Acid 0.7 mmol/L (0.5-2.0)
[2023-08-13 10:47] LABS: Alanine Aminotransferase 36 U/L (0-31); Albumin Level 4.1 g/dL (3.5-5.0); Alkaline Phosphatase 87 U/L (39-117); Anion Gap 14 (12-20); Aspartate Amino Transferase 39 U/L (5-31); Bilirubin Direct 0.1 mg/dL (0.0-0.5); Bilirubin Total 0.5 mg/dL (0.0-1.0); Blood Urea Nitrogen 10 mg/dL (9-16); Calcium 9.2 mg/dL (8.4-10.2); Carbon Dioxide 25 mmol/L (22-29); Chloride 106 mmol/L (96-108); Creatinine Clr Calc Pharmacy 71.1; Estimated Glomerular Filt Rate > 60; Glucose Random 137 mg/dL (60-115); Magnesium 1.9 mg/dL (1.6-2.6); Potassium 4.2 mmol/L (3.3-5.1); Sodium 141 mmol/L (135-145); Total Protein 7.7 g/dL (6.5-8.0)
[2023-08-13 10:48] LABS: Influenza A PCR NEGATIVE (Negative); Influenza B PCR NEGATIVE (Negative); Resp Syncy Virus RNA Qual PCR NEGATIVE (Negative); SARS COV2 PCR INHOUSE NEGATIVE (Negative)
[2023-08-13 10:51] LABS: Troponin-I High Sensitivity 6.3 ng/L (<3.5-17.0)
[2023-08-13] MEDS: Azithromycin 500 MG in 0.9 % Sodium Chloride 250 ML 125 MG IV (10:53)
[2023-08-13] MEDS: Albuterol Sulfate 2.5 MG, Albuterol/Iprat 2.5/0.5MG 3 ML 3 ML INHALE (10:59)
[2023-08-13 11:06] LABS: VBG Base Excess 3.3 mmol/L; VBG HCO3 29 mmol/L (22-26); VBG pCO2 47 mmHg; VBG pH 7.39 (7.32-7.43); VBG pO2 57 mmHg
[2023-08-13 11:07] LABS: Venous Blood Gas Refer to POC result
--- NOTE | 2023-08-13 12:44 | PC.NURSE ---
New US guided #20 to RUE placed by MD Gambino.
--- NOTE | 2023-08-13 13:11 | PM.IMHP ---
History of Present Illness Date of Service: 08/13/23 Attending physician on admission: Geo Mcguire Chief Complaint: sob 62-year-old female with history of asthma/COPD overlap, current everyday smoker, GERD, history TAVR procedure following endocarditis on Plavix (hx IVDA), diabetes, hypertension, hyperlipidemia, MARY noncompliant with CPAP, overactive bladder, and rheumatoid arthritis presented to the ED earlier today for evaluation of worsening sob/barone and orthopnea ongoing since this morning. Reports she also had an episode of nonradiating midsternal chest pressure this morning that lasted several minutes before resolving. She has chronic dry cough which is baseline. Reports no recent cigarette smoking, but has 30+ pack year history, reportedly quit several months ago but does vape. She states she has felt she needs O2 so has been using her neighbors, was never prescribed home O2. She was just admitted for asthma exacerbation from 08/02-08/03 and discharged on prednisone which she reports taking to completion. Eva well upon discharge with symptoms recurring this morning. No fevers chills, congestion, st, abd pain, n/v/d, change in cough. On arrival, no hypoxia, afebrile, vitals stable. She has a mild leukocytosis of 13.0, likely related to recent steroid use. Renal function electrolyte levels normal. Negative for COVID-19, RSV, influenza. Chest x-ray unremarkable. EKG shows ventricular paced rhythm, rate [address]/T-wave abnormality. Per RN report, was given 125 mg IV methylprednisolone and route to the hospital. She has also been given DuoNebs, Zithromax, and IV magnesium. She will be observed overnight for acute asthma exacerbation. Review of Systems Review of Systems: Yes all other systems are reviewed and are negative [facility] Medical History Pacemaker Asthma with exacerbation Smoking Restrictive airway disease MARY (obstructive sleep apnea) COPD (chronic obstructive pulmonary disease) MARY on CPAP Reactive airways dysfunction syndrome Rheumatoid arthritis Fibromyalgia GERD (gastroesophageal reflux disease) MARY (obstructive sleep apnea) Aortic valve endocarditis COPD (chronic obstructive pulmonary disease) COPD exacerbation Overactive bladder Bronchitis Allergic rhinitis COPD (chronic obstructive pulmonary disease) Asthma Hx of cardiac pacemaker Hx of migraines Hx of coronary artery disease History of urinary incontinence Hx of essential hypertension History of depression Hx of drug abuse Hx of hyperlipidemia Hx of allergic rhinitis History of enuresis Hx of osteoarthritis Hx of pilonidal cyst Family history of GERD History of arthritis Hx of diabetes mellitus Surgical History History of surgical removal of pilonidal cyst Hx of bilateral cataract extraction Hx of colonoscopy History of cystoscopy History of hysterectomy Hx of aortic valve replacement Hx laparoscopic cholecystectomy History of epidermal inclusion cyst excision Social History Household Members: Family Household Members Other:: self Housing: Apartment Do you presently have visiting nurse or other home services: No Alcohol intake: former Comment: refusing alarms Patient Tobacco Use Status: Former Tobacco user Tobacco use type: Cigarette Cigarettes Per Day: 3 e-Cigarette/Vaping Use: Currently Using Second Hand Smoke Exposure: Yes Advance Directives: Yes Advance Directives on File: Yes Advance Directives Date on File: 11/08/21 service: No Current occupational status: unemployed and disabled Meds Allergies Allergy/AdvReac Type Severity Reaction Status Date / Time latex [LATEX] Allergy Severe DIFFICULTY Verified 08/13/23 10:35 BREATHING aspirin [Aspirin] Allergy Intermediate ITCHING, Verified 08/13/23 10:35 itchiness ciprofloxacin [From CIPRO] Allergy Intermediate DIAPHORESIS Verified 08/13/23 10:35 /PURITIS Penicillins [PENICILLINS] Allergy Unknown UNKNOWN Verified 08/13/23 10:35 HEMALATHA Inhibitors AdvReac Intermediate COUGH Verified 08/13/23 10:35 [HEMALATHA INHIBITORS] Active Medications: Current Medications Acetaminophen (Acetaminophen 325 Mg Tablet) 650 mg PO Q6H PRN PRN Reason: Pain, Mild (Pain Scale 1-3), fever or headache Albuterol/Ipratropium (Albuterol/Iprat 2.5/0.5mg 3 Ml Ampul.Neb) 3 ml INHALE RQ4H WHILE AWAKE PATTI Albuterol/Ipratropium (Albuterol/Iprat 2.5/0.5mg 3 Ml Ampul.Neb) 3 ml INHALE RQ4H WHILE AWAKE PRN PRN Reason: Shortness of Breath/Wheezing Calcium Carbonate (Calcium Carbonate 750 Mg Tab.Chew) 750 mg PO Q4H PRN PRN Reason: Heartburn Enoxaparin Sodium (Enoxaparin Sodium 40 Mg/0.4 Ml Syringe) 40 mg SUBCUT Q24H PATTI Guaifenesin (Guaifenesin 200 Mg/10 Ml 10 Ml Liquid) 10 ml PO Q6H PRN PRN Reason: Cough Magnesium Hydroxide (Milk Of Magnesia 30 Ml Oral.Susp) 30 ml PO DAILY PRN PRN Reason: Constipation Melatonin (Melatonin 3 Mg Tablet) 6 mg PO BEDTIME PRN PRN Reason: Insomnia Methylprednisolone Sodium Succinate (Methylprednisolone Sod Succ 40 Mg/Ml Vial) 40 mg IVPUSH Q12H [facility] Sodium Chloride (0.9 % Sodium Chloride Flush 3 Ml Syringe) 3 ml IVFLUSH QSHIFT [facility] Home Medications ?Medication ?Instructions ?Recorded ?Confirmed ?Last Taken ?Type amitriptyline 25 mg tablet 25 mg PO BEDTIME 07/03/22 08/03/23 11/27/22 History bisacodyl 5 mg tablet,delayed 10 mg PO BEDTIME 07/03/22 08/03/23 11/27/22 History release calcium carbonate 600 mg-vitamin 1 tab PO DAILY 07/03/22 08/03/23 11/28/22 History D3 10 mcg (400 unit) tablet clopidogrel 75 mg tablet 75 mg PO DAILY 07/03/22 08/03/23 11/28/22 History cyanocobalamin (vitamin B-12) 1,000 mcg PO QAM 07/03/22 08/03/23 11/28/22 History 1,000 mcg tablet folic acid 1 mg tablet 1 mg PO DAILY 07/03/22 08/03/23 11/28/22 History gabapentin 100 mg capsule 100 mg PO TID 07/03/22 08/03/23 11/28/22 History hydrochlorothiazide 12.5 mg tablet 12.5 mg PO DAILY 07/03/22 08/03/23 11/28/22 History montelukast 10 mg tablet 10 mg PO BEDTIME 07/03/22 08/03/23 11/27/22 History sertraline 50 mg tablet 50 mg PO DAILY 07/03/22 08/03/23 11/28/22 History melatonin 5 mg tablet 5 mg PO BEDTIME PRN insomnia 03/14/23 08/03/23 Unknown History tiotropium bromide 18 mcg capsule 1 cap inhalation DAILY 03/14/23 08/03/23 Unknown History with inhalation device (Spiriva with HandiHaler) albuterol sulfate 2.5 mg/3 mL 2.5 mg inhalation Q4H PRN 05/21/23 08/03/23 Unknown History (0.083 %) solution for nebulization Shortness Of Breath/Wheezing albuterol sulfate 90 mcg/actuation 2 puff inhalation Q4H PRN Wheezing 05/21/23 08/03/23 Unknown History aerosol inhaler (Ventolin HFA) amlodipine 5 mg tablet 5 mg PO QAM 08/03/23 08/03/23 Unknown History Physical Exam Vital Signs and Narrative: Vital Signs: Last Vital Signs Temp 98.9 F 08/13/23 09:42 Pulse 65 08/13/23 11:55 Resp 10 L 08/13/23 11:55 BP 128/62 08/13/23 11:55 Pulse Ox 94 08/13/23 11:55 O2 Del Method Room Air 08/13/23 11:55 BMI result Body Mass Index 28.2 Constitutional - Awake and Alert, No apparent distress Eyes - PERRLA, EOMI Cardiovascular - S1S2, RRR, No edema Respiratory - Normal lung expansion, Normal respiratory effort, No respiratory distress, diffuse expiratory wheezing with coarse lung sounds Gastrointestinal - NT / ND; +BS; No rebound or guarding Extremities - no calf tenderness bilaterally, no swelling Skin - Warm/Dry Neurological - Alert & oriented x3, Psychological - Appropriate affect Results Labs 08/13/23 10:01 08/13/23 11:00 Labs: Laboratory Results - last 24 hr 08/13/23 08/13/23 10:01 11:00 MCV 87.1 MCH 29.3 MCHC 33.6 RDW 13.2 Plt Count 315 MPV 9.6 Immature Gran % (Auto) 0.3 Neut % (Auto) 64.2 Lymph % (Auto) 16.8 L [place] % (Auto) 9.9 Eos % (Auto) 8.3 H Baso % (Auto) 0.5 Lymph # (Auto) 2.2 [place] # (Auto) 1.3 H Eos # (Auto) 1.1 H Baso # (Auto) 0.1 Abs Immat Gran (auto) 0.04 H Absolute Neuts (auto) 8.3 Absolute Nucleated RBC 0.000 Nucleated RBC % (auto) 0.0 VBG pH 7.39 VBG pCO2 47 VBG pO2 57 VBG HCO3 29 H VBG O2 Saturation 88.0 VBG Base Excess 3.3 Anion Gap 14 Estim Creat Clear Calc 71.1 Estimated GFR > 60 Random Glucose 137 H Lactic Acid 0.7 Calcium 9.2 Magnesium 1.9 Total Bilirubin 0.5 Direct Bilirubin 0.1 AST 39 H ALT 36 H Alkaline Phosphatase 87 Troponin I High Sens 6.3 B-Natriuretic Peptide 63 Total Protein 7.7 Albumin 4.1 Influenza Type A (PCR) NEGATIVE Influenza Type B (PCR) NEGATIVE RSV RNA Qual (PCR) NEGATIVE SARS-CoV-2 RNA (RT-PCR) NEGATIVE Imaging Radiologist's Impressions: Impressions Chest X-Ray 08/13/23 10:15 IMPRESSION: Unremarkable examination. Assessment and Plan (1) Asthma exacerbation: Status: Acute Plan 62-year-old female with history of asthma/COPD overlap, current everyday smoker, GERD, history TAVR procedure following endocarditis on Plavix (hx IVDA), diabetes, hypertension, hyperlipidemia, MARY noncompliant with CPAP, overactive bladder, and rheumatoid arthritis to be observed for acute asthma exacerbation #Acute asthma exacerbation with background asthma/copd overlap -cxr unremarkable -40 mg IV methylprednisolone b.i.d. -DuoNebs q.4h while awake, p.r.n. -guaifenesin p.r.n. No change in cough quality/severity. No indication for abx at this time -negative for COVID-19, RSV, influenza. Check RPP -will likely need re-evaluation of maintenance inhalers with outpatient PFT and pulmonology follow-up # severe aortic stenosis -she is s/p TAVR following endocarditis with most recent echo 03/21 showing severe . Was transferred [place] [facility] [place] due to similar symptoms with Dr. Segovia ([facility]) who felt symptoms r/t asthma/copd. no TAVR performed -outpt follow up though does have poor outpt follow up with cardiology #non insulin dependent type 2 diabetes- without hyperglycemia -poc glucose, diabetic diet -humalog on sliding scale #Essential hypertension -continue hydrochlorothiazide #Mood disorder -Continue home mood stabilizers #MARY -CPAP at bedtime #hx of complete heart block -s/p pacemaker dvt prophylaxis- lovenox full code Quality Stroke Does the patient have a stroke diagnosis?: No VTE Prior VTE?: No VTE Risk Level:: Medical - moderate - high VTE Device Contraindication: Treatment Not Indicated VTE Drug Contraindication: N/A - Med Ordered
--- NOTE | 2023-08-13 13:16 | PC.NURSE ---
Kitchen called, tray ordered for patient.
--- NOTE | 2023-08-13 13:35 | PC.NURSE ---
Pt given meal tray.
--- NOTE | 2023-08-13 13:41 | PHA.MEDREC ---
Pharmacy Consult ? Medication Reconciliation Pharmacy has completed the medication reconciliation. Patient reports nothing has changed since last visit. Used patients med list and claim history to confirm medications. Per [facility], patient never picked up prednisone or lidocaine patches from previous discharge. Patient says she does not use the lidocaine patches.
--- NOTE | 2023-08-13 14:04 | PC.NURSE ---
Pt ambulatory to the BR with a steady gait.
--- NOTE | 2023-08-13 14:32 | PC.NURSE ---
Pt does not utilize call basilio at all, instead shouts NURSE repeatedly until someone comes into the room. Has been shown how to use the call basilio several times, no evidence of learning.
[2023-08-13] MEDS: Albuterol/Iprat 2.5/0.5MG 3 ML AMPUL.NEB INHALE ×2 (15:01→19:41)
[2023-08-13] MEDS: Gabapentin 100 MG CAPSULE PO ×2 (15:17→22:06)
[2023-08-13] MEDS: amLODIPine Besylate 5 MG TABLET PO (15:17)
[2023-08-13] MEDS: Cyanocobalamin (Vitamin B-12) 1,000 MCG TABLET 1000 MCG PO (15:17)
[2023-08-13] MEDS: 0.9 % Sodium Chloride Flush 3 ML SYRINGE IVFLUSH ×2 (15:18→22:07)
[2023-08-13 18:24] LABS: Glucose, Whole Blood 135 mg/dL (60-115)
[2023-08-13 18:32] LABS: Amphetamine Screen Urine Not Detected (Not Detect); Barbiturates, Urine Not Detected (Not Detect); Benzodiazepines Screen Urine Not Detected (Not Detect); Buprenorphine Scr Not Detected (Not Detect); Cannabinoid Screen Urine Not Detected (Not Detect); Cocaine Screen Urine Not Detected (Not Detect); Fentanyl, urine Not Detected (Not Detect); Methadone Screen, Urine Not Detected (Not Detect); Opiate Screen Urine Not Detected (Not Detect); Oxycodone Screen Urine Not Detected (Not Detect); Phencyclidine Screen Urine Not Detected (Not Detect)
[2023-08-13] MEDS: Montelukast Sodium 10 MG TABLET PO (22:06)
[2023-08-13] MEDS: methylPREDNISolone Sod Succ 40 MG/ML VIAL IVPUSH (22:06)
[2023-08-13] MEDS: Amitriptyline HCl 25 MG TABLET PO (22:06)
[2023-08-13] MEDS: bisacodyL 5 MG TABLET.DR 10 MG PO (22:06)
[2023-08-13 22:48] LABS: Glucose, Whole Blood 118 mg/dL (60-115)
[2023-08-14] VITALS (10 sets, daily range): BP systolic 127–158; BP diastolic 63–75; PULSE 59–92; RESP 16–20; TEMP 36.2–36.4; O2SAT 91–97
[2023-08-14 07:15] LABS: Glucose, Whole Blood 126 mg/dL (60-115)
[2023-08-14] MEDS: 0.9 % Sodium Chloride Flush 3 ML SYRINGE IVFLUSH ×3 (07:42→21:01)
[2023-08-14] MEDS: methylPREDNISolone Sod Succ 40 MG/ML VIAL IVPUSH ×2 (07:43→21:00)
[2023-08-14 07:45] LABS: Basophils Percent Auto 0.1 % (0-2); Hematocrit 43.6 % (37.0-47.0); Hemoglobin 14.2 g/dl (12.0-16.0); Imm Gran Abs Auto 0.18 X10*3/uL (0.00-0.03); Imm Gran Pct Auto 0.8 % (0.0-0.4); Lymphocytes Absolute Auto 0.7 X10*3/uL (1.2-4.9); Lymphocytes Percent Auto 3.1 % (20-40); MANUAL DIFF FLAG SCAN; Mean Corpuscular HGB Conc 32.6 g/dl (31.0-35.0); Mean Corpuscular Hemoglobin 28.7 pg (27.0-33.0); Mean Corpuscular Volume 88.1 fL (80.0-98.0); Mean Platelet Volume 9.8 fL (9.4-12.3); Monocytes Absolute Auto 0.9 X10*3/uL (0.1-1.2); Monocytes Percent Auto 3.8 % (2-11); Neutrophils Percent Auto 92.2 % (45-73); Platelet Count 322 X10*3/uL (160-400); Red Blood Count 4.95 X10*6/uL (4.20-5.50); Red Cell Distribution Width 13.2 % (11.0-16.0); SCAN SMEAR FLAG 1; White Blood Count 22.7 X10*3/uL (4.8-10.8)
[2023-08-14] MEDS: Calcium + Vitamin D 250 MG TABLET 500 MG PO (07:46)
[2023-08-14] MEDS: Clopidogrel Bisulfate 75 MG TABLET PO (07:47)
[2023-08-14] MEDS: Sertraline HCL 50 MG TABLET PO (07:48)
[2023-08-14] MEDS: hydroCHLOROthiazide 12.5 MG TABLET PO (07:48)
[2023-08-14] MEDS: Gabapentin 100 MG CAPSULE PO ×3 (07:48→21:00)
[2023-08-14] MEDS: Folic Acid 1 MG TABLET PO (07:48)
[2023-08-14] MEDS: amLODIPine Besylate 5 MG TABLET PO (07:49)
[2023-08-14] MEDS: Tiotropium Bromide 2.5 mcg 1 PUFF/2.5 MCG MIST.INHAL 2 PUFF INHALE (07:53)
[2023-08-14] MEDS: Albuterol/Iprat 2.5/0.5MG 3 ML AMPUL.NEB INHALE ×4 (07:55→20:30)
[2023-08-14 07:59] LABS: Anion Gap 11 (12-20); Blood Urea Nitrogen 23 mg/dL (9-16); Calcium 10.1 mg/dL (8.4-10.2); Carbon Dioxide 27 mmol/L (22-29); Chloride 107 mmol/L (96-108); Creatinine Clr Calc Pharmacy 69.1; Estimated Glomerular Filt Rate > 60; Glucose Random 124 mg/dL (60-115); Potassium 4.1 mmol/L (3.3-5.1); Sodium 141 mmol/L (135-145)
[2023-08-14 08:09] LABS: SLIDE REVIEW VERIFIED
--- NOTE | 2023-08-14 08:55 | P.PNIM_ITS ---
Subjective Subjective Date of Service: 08/14/23 Interval History: still wheezy and sob Physical Exam 2 Vital Signs: Vital Signs: Last Vital Signs Temp 97.1 F 08/14/23 07:37 Pulse 92 08/14/23 07:56 Resp 18 08/14/23 07:56 BP 134/75 08/14/23 07:49 Pulse Ox 91 L 08/14/23 07:37 O2 Del Method Room Air 08/14/23 07:37 BMI result Body Mass Index 28.2 General: AO X 3, dyspneic Resp: wheezing bilateral, no accessory muscles used CVS: S1,S2,RRR, murmur GI: soft, non tender, non distended Neuro: motor grossly intact, alert Psych: appropriate affect, appropriate insight Objective Data Active Medications Acetaminophen (Acetaminophen 325 Mg Tablet) 650 mg PO Q6H PRN PRN Reason: Pain, Mild (Pain Scale 1-3), fever or headache Albuterol/Ipratropium (Albuterol/Iprat 2.5/0.5mg 3 Ml Ampul.Neb) 3 ml INHALE RQ4H WHILE AWAKE [facility] Last Admin: 08/14/23 07:55 Dose: 3 ml Documented By: JOSUE Albuterol/Ipratropium (Albuterol/Iprat 2.5/0.5mg 3 Ml Ampul.Neb) 3 ml INHALE RQ4H WHILE AWAKE PRN PRN Reason: Shortness of Breath/Wheezing Amitriptyline HCl (Amitriptyline Hcl 25 Mg Tablet) 25 mg PO BEDTIME [facility] Last Admin: 08/13/23 22:06 Dose: 25 mg Documented By: DAVIAN Amlodipine Besylate (Amlodipine Besylate 5 Mg Tablet) 5 mg PO DAILY [facility]; Protocol Last Admin: 08/14/23 07:49 Dose: 5 mg Documented By: JEREMÍAS Bisacodyl (Bisacodyl 5 Mg Tablet.Dr) 10 mg PO BEDTIME [facility] Last Admin: 08/13/23 22:06 Dose: 10 mg Documented By: DAVIAN Calcium Carbonate (Calcium Carbonate 750 Mg Tab.Chew) 750 mg PO Q4H PRN PRN Reason: Heartburn Calcium Carbonate/Cholecalciferol (Calcium + Vitamin D 250 Mg Tablet) 500 mg PO DAILY [facility] Last Admin: 08/14/23 07:46 Dose: 500 mg Documented By: JEREMÍAS Clopidogrel Bisulfate (Clopidogrel Bisulfate 75 Mg Tablet) 75 mg PO DAILY [facility] Last Admin: 08/14/23 07:47 Dose: 75 mg Documented By: JEREMÍAS Cyanocobalamin (Cyanocobalamin (Vitamin B-12) 1,000 Mcg Tablet) 1,000 mcg PO DAILY [facility] Last Admin: 08/13/23 15:17 Dose: 1,000 mcg Documented By: DEO Enoxaparin Sodium (Enoxaparin Sodium 40 Mg/0.4 Ml Syringe) 40 mg SUBCUT Q24H [facility] Last Admin: 08/13/23 13:52 Dose: Not Given Documented By: MALIKA Non-Admin Reason: Patient Refused Folic Acid (Folic Acid 1 Mg Tablet) 1 mg PO DAILY [facility] Last Admin: 08/14/23 07:48 Dose: 1 mg Documented By: JEREMÍAS Gabapentin (Gabapentin 100 Mg Capsule) 100 mg PO TID [facility] Last Admin: 08/14/23 07:48 Dose: 100 mg Documented By: JEREMÍAS Glucose (Glucose Gel 15 Gm Gel..Gram.) 15 gm PO Q15M PRN; Protocol PRN Reason: per Hypoglycemia Standing Ord. Guaifenesin (Guaifenesin 200 Mg/10 Ml 10 Ml Liquid) 10 ml PO Q6H PRN PRN Reason: Cough Hydrochlorothiazide (Hydrochlorothiazide 12.5 Mg Tablet) 12.5 mg PO DAILY [facility]; Protocol Last Admin: 08/14/23 07:48 Dose: 12.5 mg Documented By: JEREMÍAS Dextrose (D10) 250 mls @ 750 mls/hr IV Q15M PRN; Protocol PRN Reason: per Hypoglycemia Standing Ord. Insulin Human Lispro (Insulin Lispro 100 Unit/Ml 3 Ml Vial) 0 unit SUBCUT QIDACHS [facility]; Protocol Last Admin: 08/14/23 07:49 Dose: Not Given Documented By: JEREMÍAS Non-Admin Reason: No Insulin Coverage Magnesium Hydroxide (Milk Of Magnesia 30 Ml Oral.Susp) 30 ml PO DAILY PRN PRN Reason: Constipation Melatonin (Melatonin 3 Mg Tablet) 6 mg PO BEDTIME PRN PRN Reason: Insomnia Methylprednisolone Sodium Succinate (Methylprednisolone Sod Succ 40 Mg/Ml Vial) 40 mg IVPUSH Q12H [facility] Last Admin: 08/14/23 07:43 Dose: 40 mg Documented By: JEREMÍAS Montelukast Sodium (Montelukast Sodium 10 Mg Tablet) 10 mg PO BEDTIME [facility] Last Admin: 08/13/23 22:06 Dose: 10 mg Documented By: DAVIAN Sertraline HCl (Sertraline Hcl 50 Mg Tablet) 50 mg PO DAILY [facility] Last Admin: 08/14/23 07:48 Dose: 50 mg Documented By: JEREMÍAS Sodium Chloride (0.9 % Sodium Chloride Flush 3 Ml Syringe) 3 ml IVFLUSH QSHIFT [facility] Last Admin: 08/14/23 07:42 Dose: 3 ml Documented By: JEREMÍAS Tiotropium [place] (Tiotropium [place] 2.5 Mcg 1 Puff/2.5 Mcg Mist.Inhal) 2 puff INHALE RDAILY [facility] Last Admin: 08/14/23 07:53 Dose: 2 puff Documented By: JOSUE Labs 08/14/23 07:30 08/14/23 07:30 Labs: Laboratory Results - last 24 hr 08/13/23 08/13/23 08/13/23 10:01 11:00 18:08 MCV 87.1 MCH 29.3 MCHC 33.6 RDW 13.2 Plt Count 315 MPV 9.6 Immature Gran % (Auto) 0.3 Neut % (Auto) 64.2 Lymph % (Auto) 16.8 L [place] % (Auto) 9.9 Eos % (Auto) 8.3 H Baso % (Auto) 0.5 Lymph # (Auto) 2.2 [place] # (Auto) 1.3 H Eos # (Auto) 1.1 H Baso # (Auto) 0.1 Abs Immat Gran (auto) 0.04 H Absolute Neuts (auto) 8.3 Absolute Nucleated RBC 0.000 Nucleated RBC % (auto) 0.0 Smear Tech's Comments VBG pH 7.39 VBG pCO2 47 VBG pO2 57 VBG HCO3 29 H VBG O2 Saturation 88.0 VBG Base Excess 3.3 Anion Gap 14 Estim Creat Clear Calc 71.1 Estimated GFR > 60 POC Glucose Random Glucose 137 H Lactic Acid 0.7 Calcium 9.2 Magnesium 1.9 Total Bilirubin 0.5 Direct Bilirubin 0.1 AST 39 H ALT 36 H Alkaline Phosphatase 87 Troponin I High Sens 6.3 B-Natriuretic Peptide 63 Total Protein 7.7 Albumin 4.1 Urine Opiates Screen Not Detected Ur Buprenorphine Scrn Not Detected Ur Oxycodone Screen Not Detected Urine Methadone Screen Not Detected Urine Fentanyl Screen Not Detected Ur Barbiturates Screen Not Detected Ur Phencyclidine Scrn Not Detected Ur Amphetamines Screen Not Detected U Benzodiazepines Scrn Not Detected Urine Cocaine Screen Not Detected U Marijuana (THC) Screen Not Detected Influenza Type A (PCR) NEGATIVE Influenza Type B (PCR) NEGATIVE RSV RNA Qual (PCR) NEGATIVE SARS-CoV-2 RNA (RT-PCR) NEGATIVE 08/13/23 08/13/23 08/14/23 18:20 22:45 07:11 MCV MCH MCHC RDW Plt Count MPV Immature Gran % (Auto) Neut % (Auto) Lymph % (Auto) [place] % (Auto) Eos % (Auto) Baso % (Auto) Lymph # (Auto) [place] # (Auto) Eos # (Auto) Baso # (Auto) Abs Immat Gran (auto) Absolute Neuts (auto) Absolute Nucleated RBC Nucleated RBC % (auto) Smear Tech's Comments VBG pH VBG pCO2 VBG pO2 VBG HCO3 VBG O2 Saturation VBG Base Excess Anion Gap Estim Creat Clear Calc Estimated GFR POC Glucose 135 H 118 H 126 H Random Glucose Lactic Acid Calcium Magnesium Total Bilirubin Direct Bilirubin AST ALT Alkaline Phosphatase Troponin I High Sens B-Natriuretic Peptide Total Protein Albumin Urine Opiates Screen Ur Buprenorphine Scrn Ur Oxycodone Screen Urine Methadone Screen Urine Fentanyl Screen Ur Barbiturates Screen Ur Phencyclidine Scrn Ur Amphetamines Screen U Benzodiazepines Scrn Urine Cocaine Screen U Marijuana (THC) Screen Influenza Type A (PCR) Influenza Type B (PCR) RSV RNA Qual (PCR) SARS-CoV-2 RNA (RT-PCR) 08/14/23 07:30 MCV 88.1 MCH 28.7 MCHC 32.6 RDW 13.2 Plt Count 322 MPV 9.8 Immature Gran % (Auto) 0.8 H Neut % (Auto) 92.2 H Lymph % (Auto) 3.1 L [place] % (Auto) 3.8 Eos % (Auto) 0.0 Baso % (Auto) 0.1 Lymph # (Auto) 0.7 L [place] # (Auto) 0.9 Eos # (Auto) 0.0 Baso # (Auto) 0.0 Abs Immat Gran (auto) 0.18 H Absolute Neuts (auto) 21.0 H Absolute Nucleated RBC 0.000 Nucleated RBC % (auto) 0.0 Smear Tech's Comments VERIFIED VBG pH VBG pCO2 VBG pO2 VBG HCO3 VBG O2 Saturation VBG Base Excess Anion Gap 11 L Estim Creat Clear Calc 69.1 Estimated GFR > 60 POC Glucose Random Glucose 124 H Lactic Acid Calcium 10.1 D Magnesium Total Bilirubin Direct Bilirubin AST ALT Alkaline Phosphatase Troponin I High Sens B-Natriuretic Peptide Total Protein Albumin Urine Opiates Screen Ur Buprenorphine Scrn Ur Oxycodone Screen Urine Methadone Screen Urine Fentanyl Screen Ur Barbiturates Screen Ur Phencyclidine Scrn Ur Amphetamines Screen U Benzodiazepines Scrn Urine Cocaine Screen U Marijuana (THC) Screen Influenza Type A (PCR) Influenza Type B (PCR) RSV RNA Qual (PCR) SARS-CoV-2 RNA (RT-PCR) Assessment and Plan (1) Asthma exacerbation: Status: Acute Plan 62F PMH severe persistent asthma/COPD overlap, current everyday smoker, GERD, history TAVR procedure following endocarditis on Plavix (hx IVDA), diabetes, hypertension, hyperlipidemia, MARY noncompliant with CPAP, overactive bladder, and rheumatoid arthritis presented with sob/wheezing severe persistent asthma/copd with acute decompensation Continue steroids and DuoNebs severe aortic stenosis she is s/p TAVR following endocarditis with most recent echo 03/21 showing severe . [place] [facility] [place] due to similar symptoms with Dr. Segovia ([facility] who felt symptoms r/t asthma/copd. no TAVR performed outpt follow up non insulin dependent type 2 diabetes Continue insulin sliding scale hypertension hydrochlorothiazide Mood disorder Amitriptyline, sertraline MARY CPAP at bedtime hx of complete heart block s/p pacemaker - replaced 08/06/2023 dvt prophylaxis- lovenox full code reason for continued hospitalization:still sob and wheezing Quality Stroke Does the patient have a stroke diagnosis?: No VTE Prior VTE?: No VTE Risk Level:: Medical - moderate - high VTE Device Contraindication: Treatment Not Indicated VTE Drug Contraindication: N/A - Med Ordered
[2023-08-14] MEDS: Cyanocobalamin (Vitamin B-12) 1,000 MCG TABLET 1000 MCG PO (09:04)
--- NOTE | 2023-08-14 09:48 | MHC.CM.PN ---
Addendum entered by Jane Jeong RN 08/14/23 09:49: Status changed to inpatient. Original Note: HELMS delivered. Patient lives at home alone. Daily [employer], unsure of how many hours. Ambulates w/ cane. Active w/ [facility] for PT. PCP @ [facility]. HCP on file and verified. DP: Goal is home to resume [employer] & [facility] services. Brother to transport. CM will continue to follow.
[2023-08-14 11:10] LABS: Glucose, Whole Blood 133 mg/dL (60-115)
[2023-08-14 11:26] LABS: Adenovirus PCR Not Detected (Not Detect.); Bordetella parapertussis PCR Not Detected (Not Detect.); Bordetella pertussis PCR Not Detected (Not Detect.); Chlamydia pneumoniae PCR Not Detected (Not Detect.); Coronavirus 229E PCR Not Detected (Not Detect.); Coronavirus HKU1 PCR Not Detected (Not Detect.); Coronavirus NL63 PCR Not Detected (Not Detect.); Coronavirus OC43 PCR Not Detected (Not Detect.); Human metapneumovirus PCR Not Detected (Not Detect.); Influenza A PCR Not Detected (Not Detect.); Influenza B PCR Not Detected (Not Detect.); Mycoplasma pneumoniae PCR Not Detected (Not Detect.); Parainfluenza 1 PCR Not Detected (Not Detect.); Parainfluenza 2 PCR Not Detected (Not Detect.); Parainfluenza 3 PCR Not Detected (Not Detect.); Parainfluenza 4 PCR Not Detected (Not Detect.); RSV PCR Not Detected (Not Detect.); Rhino/Enterovirus PCR Detected (Not Detect.)
[2023-08-14 12:47] LABS: SARS-CoV-2 PCR Not Detected (Not Detect.)
[2023-08-14] MEDS: Enoxaparin Sodium 40 MG/0.4 ML SYRINGE SUBCUT (13:10)
[2023-08-14 16:31] LABS: Glucose, Whole Blood 136 mg/dL (60-115)
[2023-08-14 20:15] LABS: Glucose, Whole Blood 108 mg/dL (60-115)
[2023-08-14] MEDS: Montelukast Sodium 10 MG TABLET PO (21:00)
[2023-08-14] MEDS: bisacodyL 5 MG TABLET.DR 10 MG PO (21:00)
[2023-08-14] MEDS: Amitriptyline HCl 25 MG TABLET PO (21:01)
[2023-08-15 03:54] VITALS: BP 126/59; PULSE 63; RESP 18; TEMP 36.4; O2SAT 95
[2023-08-15] MEDS: Albuterol/Iprat 2.5/0.5MG 3 ML AMPUL.NEB INHALE ×2 (04:12→08:27)
[2023-08-15 04:13] VITALS: PULSE 63; RESP 18; O2SAT 96
[2023-08-15 06:25] LABS: Hematocrit 40.1 % (37.0-47.0); Hemoglobin 13.3 g/dl (12.0-16.0); Mean Corpuscular HGB Conc 33.2 g/dl (31.0-35.0); Mean Corpuscular Hemoglobin 29.4 pg (27.0-33.0); Mean Corpuscular Volume 88.7 fL (80.0-98.0); Mean Platelet Volume 9.8 fL (9.4-12.3); Platelet Count 291 X10*3/uL (160-400); Red Blood Count 4.52 X10*6/uL (4.20-5.50); Red Cell Distribution Width 13.5 % (11.0-16.0); White Blood Count 23.5 X10*3/uL (4.8-10.8)
[2023-08-15 06:43] LABS: Anion Gap 11 (12-20); Blood Urea Nitrogen 27 mg/dL (9-16); Calcium 9.5 mg/dL (8.4-10.2); Carbon Dioxide 27 mmol/L (22-29); Chloride 106 mmol/L (96-108); Creatinine Clr Calc Pharmacy 72.3; Estimated Glomerular Filt Rate > 60; Glucose Fasting 113 mg/dL (60-99); Potassium 3.9 mmol/L (3.3-5.1); Sodium 140 mmol/L (135-145)
[2023-08-15 07:35] VITALS: BP 123/65; PULSE 76; RESP 18; TEMP 36.2; O2SAT 94
[2023-08-15 07:44] LABS: Glucose, Whole Blood 110 mg/dL (60-115)
[2023-08-15] MEDS: methylPREDNISolone Sod Succ 40 MG/ML VIAL IVPUSH (07:58)
[2023-08-15] MEDS: Calcium + Vitamin D 250 MG TABLET 500 MG PO (07:58)
[2023-08-15 07:59] VITALS: BP 123/65
[2023-08-15] MEDS: Gabapentin 100 MG CAPSULE PO (07:59)
[2023-08-15] MEDS: Cyanocobalamin (Vitamin B-12) 1,000 MCG TABLET 1000 MCG PO (07:59)
[2023-08-15] MEDS: amLODIPine Besylate 5 MG TABLET PO (07:59)
[2023-08-15] MEDS: Clopidogrel Bisulfate 75 MG TABLET PO (07:59)
[2023-08-15] MEDS: hydroCHLOROthiazide 12.5 MG TABLET PO (07:59)
[2023-08-15] MEDS: Sertraline HCL 50 MG TABLET PO (07:59)
[2023-08-15] MEDS: Folic Acid 1 MG TABLET PO (07:59)
[2023-08-15] MEDS: 0.9 % Sodium Chloride Flush 3 ML SYRINGE IVFLUSH (08:00)
[2023-08-15] MEDS: Tiotropium Bromide 2.5 mcg 1 PUFF/2.5 MCG MIST.INHAL 2 PUFF INHALE (08:27)
[2023-08-15 08:30] VITALS: PULSE 63; RESP 18; O2SAT 99
--- NOTE | 2023-08-15 09:19 | P.DS_ITS ---
DS: Providers Provider Date of Service: 08/15/23 Date of admission: 08/14/23 08:47 Primary care physician: Ting Hampton MD DS: Diagnosis Discharge Diagnosis (1) Asthma exacerbation: Status: Acute DS: Summary Hospital Course Hospital Course: from initial hpi: 62-year-old female with history of asthma/COPD overlap, current everyday smoker, GERD, history TAVR procedure following endocarditis on Plavix (hx IVDA), diabetes, hypertension, hyperlipidemia, MARY noncompliant with CPAP, overactive bladder, and rheumatoid arthritis presented to the ED earlier today for evaluation of worsening sob/barone and orthopnea ongoing since this morning. Reports she also had an episode of nonradiating midsternal chest pressure this morning that lasted several minutes before resolving. She has chronic dry cough which is baseline. Reports no recent cigarette smoking, but has 30+ pack year history, reportedly quit several months ago but does vape. She states she has felt she needs O2 so has been using her neighbors, was never prescribed home O2. She was just admitted for asthma exacerbation from 08/02-08/03 and discharged on prednisone which she reports taking to completion. [place] well upon discharge with symptoms recurring this morning. No fevers chills, congestion, st, abd pain, n/v/d, change in cough. On arrival, no hypoxia, afebrile, vitals stable. She has a mild leukocytosis of 13.0, likely related to recent steroid use. Renal function electrolyte levels normal. Negative for COVID-19, RSV, influenza. Chest x-ray unremarkable. EKG shows ventricular paced rhythm, rate [address]/T-wave abnormality. Per RN report, was given 125 mg IV methylpre dnisolone and route to the hospital. She has also been given DuoNebs, Zithromax, and IV magnesium. She will be observed overnight for acute asthma exacerbation. hospital course: Patient was admitted for severe persistent asthma/COPD with acute decompensation. She was treated with steroids and bronchodilators and symptoms resolved. She still has some mild wheezes but is feeling much more comfortable ambulating with out shortness breath on room air. She will be discharged on 5 more days of p.o. prednisone. For severe aortic stenosis, this did not appear to be contributing to her symptoms, she should follow up closely outpatient with Cardiology. For diabetes she was continued on sliding scale insulin. For hypertension she was continued on hydrochlorothiazide. For mood disorder she was continued on amitriptyline and sertraline. For MARY she used CPAP at bedtime. For history of complete heart block she was status post pacemaker which was replaced 08/06/2023. Patient is feeling better will be discharged home. Time Attestation Discharge Coordination Time (in mins): 33 Quality: Safe Use of Opioids Does Pt have an Active Cancer Diagnosis on the Problem List?: No Quality: Stroke Does the patient have a stroke diagnosis?: No Physical Exam Vital Signs: Vital Signs: Last Vital Signs Temp 97.2 F 08/15/23 07:35 Pulse 63 08/15/23 08:30 Resp 18 08/15/23 08:30 BP 123/65 08/15/23 07:59 Pulse Ox 94 08/15/23 07:35 O2 Del Method Room Air 08/15/23 07:35 BMI result Body Mass Index 28.2 General: AO X 3, no acute distress Resp: mild exp wheeze bilateral, no accessory muscles used CVS: S1,S2,RRR GI: soft, non tender, non distended Neuro: motor grossly intact, alert Psych: appropriate affect, appropriate insight DS: Data Data Completed and Pending Completed studies during hospitalization [Text1]: Procedures Assistance with Respiratory Ventilation, Less than 24 Consecutive Hours, Continuous Positive Airway Pressure (10/21/22) Labs on day of discharge: Laboratory Results - last 24 hr 08/14/23 08/14/23 08/14/23 07:38 11:01 16:26 WBC RBC Hgb Hct MCV MCH MCHC RDW Plt Count MPV Absolute Nucleated RBC Nucleated RBC % (auto) Sodium Potassium Chloride Carbon Dioxide Anion Gap BUN Creatinine Estim Creat Clear Calc Estimated GFR POC Glucose 133 H 136 H Fasting Glucose Calcium Respiratory Panel Damico See Note Adenovirus (Rapid PCR) Not Detected B.pert (TEM-PCR) Not Detected B.parapertussis DNA PCR Not Detected C. pneumoniae DNA (PCR) Not Detected Coronavirus OC43 (PCR) Not Detected Coronavirus HKU1 (PCR) Not Detected Coronavirus 229E (PCR) Not Detected Coronavirus NL63 (PCR) Not Detected Human Metapneumovir PCR Not Detected Influenza A (RT-PCR) Not Detected Influenza B (RT-PCR) Not Detected M. pneumoniae (PCR) Not Detected Parainfluenza 1 (PCR) Not Detected Parainfluenza 2 (PCR) Not Detected Parainfluenza 3 (PCR) Not Detected Parainfluenza 4 (PCR) Not Detected RSV (PCR) Not Detected Entero/Rhino (PCR) Detected A SARS-CoV-2 RNA (RT-PCR) Not Detected 08/14/23 08/15/23 08/15/23 20:00 05:52 07:09 WBC 23.5 H RBC 4.52 Hgb 13.3 Hct 40.1 MCV 88.7 MCH 29.4 MCHC 33.2 RDW 13.5 Plt Count 291 MPV 9.8 Absolute Nucleated RBC 0.000 Nucleated RBC % (auto) 0.0 Sodium 140 Potassium 3.9 Chloride 106 Carbon Dioxide 27 Anion Gap 11 L BUN 27 H Creatinine 0.67 Estim Creat Clear Calc 72.3 Estimated GFR > 60 POC Glucose 108 110 Fasting Glucose 113 H Calcium 9.5 Respiratory Panel Damico Adenovirus (Rapid PCR) B.pert (TEM-PCR) B.parapertussis DNA PCR C. pneumoniae DNA (PCR) Coronavirus OC43 (PCR) Coronavirus HKU1 (PCR) Coronavirus 229E (PCR) Coronavirus NL63 (PCR) Human Metapneumovir PCR Influenza A (RT-PCR) Influenza B (RT-PCR) M. pneumoniae (PCR) Parainfluenza 1 (PCR) Parainfluenza 2 (PCR) Parainfluenza 3 (PCR) Parainfluenza 4 (PCR) RSV (PCR) Entero/Rhino (PCR) SARS-CoV-2 RNA (RT-PCR) Preliminary micro results at discharge 08/13/23 11:00 Blood Culture - Preliminary Blood - Venous No growth after 24 hours. 08/13/23 10:01 Blood Culture - Preliminary Blood - Venous No growth after 24 hours. Discharge Plan Discharge Anticipated Discharge Date/Time: 08/15/23 09:16 Patient Disposition: Home, Self-Care Discharge Diagnosis: asthma, copd Referrals: Ting Packer MD [Primary Care Provider] - 1 Week Discharge Medications: New prednisone 20 mg tablet 40 mg PO DAILY Qty: 10 0RF Continued acetaminophen 650 mg tablet extended release 650 mg PO Q8H PRN (Reason: for pain) Qty: 90 3RF tiotropium bromide [Spiriva with HandiHaler] 18 mcg capsule, w/inhalation device 1 cap inhalation DAILY melatonin 5 mg tablet 5 mg PO BEDTIME PRN (Reason: insomnia) montelukast 10 mg tablet 10 mg PO BEDTIME bisacodyl 5 mg tablet,delayed release (DR/EC) 10 mg PO BEDTIME gabapentin 100 mg capsule 100 mg PO TID sertraline 50 mg tablet 50 mg PO DAILY calcium carbonate-vitamin D3 600 mg-10 mcg (400 unit) tablet 1 tab PO DAILY hydrochlorothiazide 12.5 mg tablet 12.5 mg PO DAILY clopidogrel 75 mg tablet 75 mg PO DAILY amitriptyline 25 mg tablet 25 mg PO BEDTIME folic acid 1 mg tablet 1 mg PO DAILY cyanocobalamin (vitamin B-12) 1,000 mcg tablet 1,000 mcg PO QAM albuterol sulfate 2.5 mg /3 mL (0.083 %) solution for nebulization 2.5 mg inhalation Q4H PRN (Reason: Shortness Of Breath/Wheezing) albuterol sulfate [Ventolin HFA] 90 mcg/actuation Hfa Aerosol Inhaler 2 puff INHALATION Q4H PRN (Reason: Wheezing) amlodipine 5 mg tablet 5 mg PO QAM Discharge Orders: Discharge Order (Routine); Ordered 08/15/23 Ordered By: Geo Mcguire Diet: Advance to usual diet Activity on Discharge: As tolerated Stand Alone Forms: Patient Portal Discharge page Print Language: Sinhala Care Plan Goals: Recovery Health Concerns: Asthma Plan of Treatment: 5 more days of prednisone Assessment: See above
[2023-08-15 11:32] LABS: Glucose, Whole Blood 125 mg/dL (60-115)
--- NOTE | 2023-08-15 11:58 | MHC.CM.PN ---
Pt is medically cleared for discharge home with resumption of [facility] services, pt transported home via lyft.
== END 2023-08-15 11:23 | disposition home or self-care (01) | DRG 140 ==
LOC: HO.ED 11:17 → HO.EDOVER 13:27 → HO.S3 19:32
PROVIDERS: Admitting Provider Physician Assistant; Emergency Provider Emergency Medicine; PCP Internal Medicine; Visit Provider Internal Medicine
DX: J44.1 Chronic obstructive pulmonary disease with (acute) exacerbation (principal); I44.2 Atrioventricular block, complete; J45.51 Severe persistent asthma with (acute) exacerbation; Z95.2 Presence of prosthetic heart valve; E78.5 Hyperlipidemia, unspecified; G47.33 Obstructive sleep apnea (adult) (pediatric); I10 Essential (primary) hypertension; F17.210 Nicotine dependence, cigarettes, uncomplicated; Z71.6 Tobacco abuse counseling; Z95.0 Presence of cardiac pacemaker; Z20.822 Contact with and (suspected) exposure to COVID-19; Z91.199 Patient's noncompliance with other medical treatment and regimen due to unspecified reason; Z79.02 Long term (current) use of antithrombotics/antiplatelets; Z91.040 Latex allergy status; Z79.899 Other long term (current) drug therapy
CPT/HCPCS: 0241U; 36415; 71045; 80048; 80076; 80307; 82803; 82947; 83605; 83735; 83880; 84484; 85025; 85027; 87040; 87633; 93005; 94640; 99221; 99285; J0456; J1650; J2919; J3475

== ENCOUNTER → 2023-08-13 09:33 | Outpatient (BNV) | payer MEDICAID, SELFPAY | PROVIDERS: Admitting Provider Physician Assistant; Emergency Provider Emergency Medicine; Visit Provider Internal Medicine Cardiovascular Disease | DX: R06.02 Shortness of breath (principal); R94.31 Abnormal electrocardiogram [ECG] [EKG] | CPT/HCPCS: 93010 ==

== ENCOUNTER → 2023-08-13 13:01 | Outpatient (BNV) | payer MEDICAID, SELFPAY | PROVIDERS: Admitting Provider Physician Assistant; Emergency Provider Emergency Medicine; Visit Provider Physician Assistant | DX: J45.901 Unspecified asthma with (acute) exacerbation (principal) | CPT/HCPCS: 99223; 99233; 99239 ==

== ENCOUNTER 2023-08-20 13:54 | Outpatient (AMB) | payer MEDICAID, SELFPAY ==
[2023-08-20 14:12] VITALS: BP 120/72; PULSE 76; O2SAT 97; BMI 27.1
--- NOTE | 2023-08-20 14:12 | MHC.OFFVIS ---
Vital Signs 08/20/23 14:12 Height 4 ft 11 in Weight 134 lb BMI 27.1 BP 120/72 Blood Pressure Location Lt brachial Position Sitting Pulse 76 Pulse Oximetry (%) 97 Oxygen Delivery Method Room Air Intake Visit Reasons: asthma Intake Note: pt is here for follow up and is still very wheezy, coughing, and short of breath Web Operations Specialist Required: No Allergies latex [LATEX] Allergy (Severe, Verified 08/20/23 14:27) DIFFICULTY BREATHING aspirin [Aspirin] Allergy (Intermediate, Verified 08/20/23 14:27) ITCHING, itchiness ciprofloxacin [From CIPRO] Allergy (Intermediate, Verified 08/20/23 14:27) DIAPHORESIS/PURITIS Penicillins [PENICILLINS] Allergy (Unknown, Verified 08/20/23 14:27) UNKNOWN HEMALATHA Inhibitors [HEMALATHA INHIBITORS] Adverse Reaction (Intermediate, Verified 08/20/23 14:27) COUGH Medication List - Last Reconciled 08/20/23 by Wally Simpson MD acetaminophen ER 650 mg PO Q8H PRN albuterol sulfate 90 mcg/actuation (Ventolin HFA) 2 puffs inhalation Q4H PRN albuterol sulfate 2.5 mg inhalation Q4H PRN amitriptyline 25 mg PO BEDTIME amlodipine 5 mg PO QAM bisacodyl 10 mg PO BEDTIME calcium carbonate-vitamin D3 600 mg-10 mcg (400 unit) 1 tab PO DAILY clopidogrel 75 mg PO DAILY cyanocobalamin (vitamin B-12) 1,000 mcg PO QAM folic acid 1 mg PO DAILY gabapentin 100 mg PO TID hydrochlorothiazide 12.5 mg PO DAILY melatonin 5 mg PO BEDTIME PRN montelukast 10 mg PO BEDTIME prednisone 40 mg (2 x 20 mg) PO DAILY sertraline 50 mg PO DAILY tiotropium bromide (Spiriva with HandiHaler) 1 cap inhalation DAILY Do you need a note to return to daycare/school/sports/work: No HPI HPI asthma: Details: ALLYSON 62 YEARS OLD FEMALE IS HERE FOR FOLLOW-UP. RECENTLY SHE WAS HOSPITALIZED AT [facility] AND ALSO FOR A FEW DAYS AT [facility] TO TREAT HER ACUTE EXACERBATION OF COPD. AT PRESENT SHE CONTINUES TO BE SHORT OF BREATH ON MINIMAL WALKING, AND EVEN WHEN SHE TALKS .THIS IS HER USUAL BASELINE SHE DOES HAVE FREQUENT COUGH WITHOUT. MUCH EXPECTORATION SHE FEELS BETTER AFTER SHE USES THE NEBULIZER. SHE IS USING HER INHALERS REGULARLY. SHE HAS LONGSTANDING PAST HISTORY OF SMOKING, CURRENTLY SMOKES ABOUT 3 CIGARETTES A DAY. [facility] Medical History (Updated 08/20/23 @ 14:52 by Wally Simpson MD) COPD (chronic obstructive pulmonary disease) Pacemaker Asthma with exacerbation Smoking Restrictive airway disease MARY (obstructive sleep apnea) MARY on CPAP Reactive airways dysfunction syndrome Rheumatoid arthritis Fibromyalgia GERD (gastroesophageal reflux disease) MARY (obstructive sleep apnea) Aortic valve endocarditis COPD (chronic obstructive pulmonary disease) COPD exacerbation Overactive bladder Bronchitis Allergic rhinitis COPD (chronic obstructive pulmonary disease) Asthma Hx of cardiac pacemaker Hx of migraines Hx of coronary artery disease History of urinary incontinence Hx of essential hypertension History of depression Hx of drug abuse Hx of hyperlipidemia Hx of allergic rhinitis History of enuresis Hx of osteoarthritis Hx of pilonidal cyst Family history of GERD History of arthritis Hx of diabetes mellitus Surgical History History of surgical removal of pilonidal cyst Hx of bilateral cataract extraction Hx of colonoscopy History of cystoscopy History of hysterectomy Hx of aortic valve replacement Hx laparoscopic cholecystectomy History of epidermal inclusion cyst excision Social History Household Members: Significant Other Household Members Other:: self Housing: Apartment Do you presently have visiting nurse or other home services: No Alcohol intake: former Comment: refusing alarms Patient Tobacco Use Status: Former Tobacco user Tobacco use type: Cigarette Cigarettes Per Day: 3 e-Cigarette/Vaping Use: Never Used Second Hand Smoke Exposure: No Substance Use Type: Former Substance User Advance Directives Date on File: 11/08/21 service: No Current occupational status: unemployed and disabled Review of Systems Const All systems reviewed & are unremarkable except as noted in HPI and below Eyes Reports no additional complaints ENT Reports nasal congestion (ON A DAILY BASIS) and Reports post nasal drip (OFF AND ON) Card Denies irregular heart rhythm and Denies leg edema Resp Reports as per HPI GI Reports no additional complaints Reports no additional complaints Musc Reports back pain and Reports arthralgias Skin/Breast Reports system reviewed and no additional complaints, except as documented Neuro Reports no additional complaints Psych Reports no additional complaints Endo Reports other (BEING TREATED FOR DIABETES MELLITUS) Physical Exam Vital Signs: Last Vital Signs Pulse 76 08/20/23 14:12 BP 120/72 08/20/23 14:12 Pulse Ox 97 08/20/23 14:12 Oxygen Delivery Method Room Air 08/20/23 14:12 BMI result Body Mass Index 27.1 Const General: comfortable (FREQUENT COUGH DURING CONVERSATION), no acute distress, alert and awake Orientation/consciousness: patient oriented x3 HEENT Head: Yes normal to inspection General nose exam: No nasal polyps present and No nasal discharge present Face and sinus: Yes sinuses nontender Mouth: oropharynx normal Throat: Yes posterior oropharynx normal Eyes General: appearance normal, both eyes and all related structures Neck Neck: Yes normal visual inspection, Yes no lymphadenopathy, Yes trachea midline and Yes no JVD Thyroid: Thyroid normal Chest Chest palpation & inspection: abnormal inspection of the chest (PATIENT HAS MIDLINE SCAR FROM PREVIOUS SURGERY), normal palpation of entire chest wall and no tenderness Resp Other: PERCUSSION NOTE RESONANT, BREATH SOUNDS ARE DISTANT, WITH PROLONGED EXPIRATORY PHASE. SHE DOES HAVE SCATTERED EXPIRATORY WHEEZES ON BOTH SIDES IN THE UPPER PART OF THE CHEST. Cardio Palpation: normal PMI Rate: regular rate Rhythm: regular rhythm Heart sounds: no gallops and no murmurs Peripheral pulses: Peripheral pulses 2+ throughout GI Palpation (GI): Soft to palpation, nontender, No hepatosplenomegaly present and no masses Auscultation: normal bowel sounds Back/Spine/Pelvis Thoracic/Lumbar Spine: thoracic and lumbar spine normal to inspection Skin General skin exam: no rashes or lesions noted Neuro General: patient oriented x3 and no focal motor deficits Cranial nerves: Yes CN's II-XII intact bilaterally Extrem General: Yes normal to inspection, Yes no clubbing, cyanosis or edema and Yes no calf tenderness Psych Appearance: grossly normal Speech and movement: Normal speech and movement present Assessment & Plan Assessment & Plan (1) Restrictive airway disease: Comment: THIS PATIENT HAS MODERATELY SEVERE RESTRICTIVE LUNG DISORDER, IT IS PARTLY CONTRIBUTED BY HER PREVIOUS STERNOTOMY AND HEALED SCAR FROM CARDIAC SURGERY Code(s): J98.4 - Other disorders of lung Category: Medical Plan: ADVISED TO DO DEEP BREATHING EXERCISES 3 TIMES A DAY ON A REGULAR BASIS (2) Smoking: Comment: SHE HAS LONGSTANDING HISTORY OF SMOKING SHE HAS CUT DOWN THE SMOKING IN THE PAST FEW YEARS, STILL SMOKING ABOUT 3 CIGARETTES A DAY. HAS BEEN COUNSELED MANY TIMES TO STOP COMPLETELY. I THINK IT IS HER ANXIETY WHICH HE DRIVES HER TO SMOKE A FEW CIGARETTES EVERY DAY. Code(s): F17.200 - Nicotine dependence, unspecified, uncomplicated Category: Social Hx Plan: AGAIN ADVISE THAT SHE SHOULD QUIT SMOKING COMPLETELY (3) MARY (obstructive sleep apnea): Comment: PATIENT DOES HAVE HISTORY OF OBSTRUCTIVE SLEEP APNEA BUT SHE STOPPED USING CPAP MANY YEARS AGO. CLAIMS THAT AT THIS TIME SHE IS SLEEPING OKAY. Code(s): G47.33 - Obstructive sleep apnea (adult) (pediatric) Category: Medical Plan: PATIENT IS NOT ABLE TO USE CPAP (4) Reactive airways dysfunction syndrome: Comment: THIS PATIENT HAS ASTHMA/COPD DISORDER, WITH FREQUENT BOUTS OF COUGH AND WHEEZING. CURRENTLY HER PULMONARY STATUS IS STABLE AND WELL CONTROLLED. IT SHOULD BE NOTED THAT SHE ALWAYS HAS SOME INSPIRATORY AND EXPIRATORY WHEEZES IN THE UPPER PARTS OF THE CHEST, PROBABLY DUE TO UPPER AIRWAY DYSFUNCTION Code(s): J68.3 - Other acute and subacute respiratory conditions due to chemicals, gases, fumes and vapors Category: Medical Plan: TX: CONTINUE ADVAIR 500-50 1 INHALATION B.I.D. SPIRIVA HANDIHALER 1 CAPSULE DAILY, IPRATROPIUM-ALBUTEROL UPDRAFTS Q FOR 6 HOURS WHILE AWAKE. (5) Allergic rhinitis: Comment: SHE HAS CHRONIC ALLERGIC RHINITIS WITH POSTNASAL DISCHARGE CONTRIBUTING TO HER COUGH. RELATIVELY CONTROLLED AND STABLE AT THIS TIME. Code(s): J30.9 - Allergic rhinitis, unspecified Category: Medical Plan: RX: CONTINUE MONTELUKAST 10 MG DAILY. AND LORATADINE 10 MG ONCE A DAY P.R.N. (6) COPD (chronic obstructive pulmonary disease): Comment: THIS PATIENT HAS CHRONIC OBSTRUCTIVE PULMONARY DISORDER, RELATED TO HER SMOKING RECENTLY TREATED FOR ACUTE EXACERBATION IN THE HOSPITAL, SHE HAS JUST COME OFF PREDNISONE. SHE IS NOW TO CONTINUE HER BASELINE MEDS. Code(s): J44.9 - Chronic obstructive pulmonary disease, unspecified Category: Medical Plan: ADVAIR HFA 500-50 1 INHALATION B.I.D. SPIRIVA HANDIHALER 1 INHALATION DAILY IPRATROPIUM-ALBUTEROL SOLUTION IN THE NEBULIZER Q 6 HOURS WHILE AWAKE (TID ) ALBUTEROL HFA 2 PUFFS Q 6 HOURS P.R.N. Coding Level of Care Code Est Pt Level 4 (56197) Diagnoses Restrictive airway disease J98.4 Smoking F17.200 MARY (obstructive sleep apnea) G47.33 Reactive airways dysfunction syndrome J68.3 Allergic rhinitis J30.9 COPD (chronic obstructive pulmonary disease) J44.9
== END 2023-08-20 14:39 | disposition home or self-care (01) ==
PROVIDERS: PCP Internal Medicine; Visit Provider Internal Medicine
DX: J98.4 Other disorders of lung (principal); F17.200 Nicotine dependence, unspecified, uncomplicated; G47.33 Obstructive sleep apnea (adult) (pediatric); J68.3 Other acute and subacute respiratory conditions due to chemicals, gases, fumes and vapors; J30.9 Allergic rhinitis, unspecified; J44.9 Chronic obstructive pulmonary disease, unspecified
CPT/HCPCS: 99214

== ENCOUNTER → 2023-08-20 13:54 | Outpatient (BNVA) | payer MEDICAID, SELFPAY | PROVIDERS: PCP Internal Medicine; Visit Provider Internal Medicine | DX: J98.4 Other disorders of lung (principal); G47.33 Obstructive sleep apnea (adult) (pediatric); J68.3 Other acute and subacute respiratory conditions due to chemicals, gases, fumes and vapors; J30.9 Allergic rhinitis, unspecified; J44.9 Chronic obstructive pulmonary disease, unspecified; F17.210 Nicotine dependence, cigarettes, uncomplicated | CPT/HCPCS: 99212 ==

== ENCOUNTER 2023-09-07 07:29 | Observation (INO) | payer MEDICAID, SELFPAY ==
[2023-09-07] VITALS (14 sets, daily range): BP systolic 98–198; BP diastolic 54–100; PULSE 62–85; RESP 18–32; TEMP 36.1–36.6; O2SAT 70–96; BMI 27.9
--- NOTE | ~2023-09-07 | XR_ITS ---
EXAMINATION: XR CHEST CLINICAL INFORMATION: Dyspnea. COMPARISON: Chest radiograph 08/13/2023. TECHNIQUE: Frontal view of the chest was obtained. FINDINGS: Stable prominence of the cardiomediastinal silhouette. Midline sternotomy wires. Right-sided pacer with single lead projecting over the expected location of the right ventricle. No focal consolidation, pleural effusion or pneumothorax. No evidence of pulmonary edema. No acute osseous findings. Visualized upper abdomen is within normal limits. XR/XR chest 1V IMPRESSION: 1. No acute cardiopulmonary findings. 2. Stable prominence of the cardiomediastinal silhouette.
--- NOTE | 2023-09-07 07:34 | ECG_ITS ---
Test Reason : ELEVATED METHADONE DOSE Blood Pressure : / mmHG Vent. Rate : 084 BPM Atrial Rate : 084 BPM P-R Int : 154 ms QRS Dur : 080 ms QT Int : 364 ms P-R-T Axes : 058 007 222 degrees QTc Int : 430 ms Normal sinus rhythm Nonspecific T wave abnormality Abnormal ECG When compared with ECG of 13-AUG-2023 09:36, Sinus rhythm has replaced Electronic ventricular pacemaker Referred By: Dottie Gambino Electronically Signed By:
[2023-09-07] MEDS: Albuterol Sulfate 7.5 MG, Albuterol/Iprat 2.5/0.5MG 3 ML 3 ML INHALE (07:45)
--- NOTE | 2023-09-07 07:49 | ED_ITS ---
HPI - Asthma General Chief Complaint: Dyspnea Stated Complaint: COPD SOB Source: patient, EMS and old records reviewed Mode of arrival: EMS Limitations: no limitations History of Present Illness ED Provider: JACKSON CARCAMO Narrative: 62 yo female with COPD - asthma overlap syndrome, still smokes, PPM for complete heart block, severe aortic stenosis (has not followed up and has missed several appointments), DM,infective endocarditis including perivalvular abscess/staph 2004 s/p TAVR, HTN, MARY does not use CPAP, RA, recurrent admissions for COPD/asthma today she comes in with 3 days of wheezing and cough no fevers, no chest pain - EMS found her tripoding speaking 2 words and found to be 70s on RA. She was given duoneb on arrival to the ED her sats on duoneb were 94% but she was diapohoretic and air hungry pulling at the neb and refusing to use it. I ordered IV fentanyl low dose to calm her down just to get an IV and neb in place. MD complaint: asthma attack , shortness of breath and wheezing Onset (ago): day(s) (3) Severity: severe Context: none known Associated symptoms: dry cough Asthma History: childhood onset Treatments Prior to Arrival: inhaled bronchodilator Related Data Home Medications ?Medication ?Instructions ?Recorded ?Confirmed amitriptyline 25 mg tablet 25 mg PO BEDTIME 07/03/22 08/20/23 bisacodyl 5 mg tablet,delayed 10 mg PO BEDTIME 07/03/22 08/20/23 release calcium carbonate 600 mg-vitamin 1 tab PO DAILY 07/03/22 08/20/23 D3 10 mcg (400 unit) tablet clopidogrel 75 mg tablet 75 mg PO DAILY 07/03/22 08/20/23 cyanocobalamin (vitamin B-12) 1,000 mcg PO QAM 07/03/22 08/20/23 1,000 mcg tablet folic acid 1 mg tablet 1 mg PO DAILY 07/03/22 08/20/23 gabapentin 100 mg capsule 100 mg PO TID 07/03/22 08/20/23 hydrochlorothiazide 12.5 mg tablet 12.5 mg PO DAILY 07/03/22 08/20/23 montelukast 10 mg tablet 10 mg PO BEDTIME 07/03/22 08/20/23 sertraline 50 mg tablet 50 mg PO DAILY 07/03/22 08/20/23 melatonin 5 mg tablet 5 mg PO BEDTIME PRN insomnia 03/14/23 08/20/23 tiotropium bromide 18 mcg capsule 1 cap inhalation DAILY 03/14/23 08/20/23 with inhalation device (Spiriva with HandiHaler) albuterol sulfate 2.5 mg/3 mL 2.5 mg inhalation Q4H PRN 05/21/23 08/20/23 (0.083 %) solution for nebulization Shortness Of Breath/Wheezing albuterol sulfate 90 mcg/actuation 2 puff inhalation Q4H PRN Wheezing 05/21/23 08/20/23 aerosol inhaler (Ventolin HFA) amlodipine 5 mg tablet 5 mg PO QAM 08/03/23 08/20/23 Previous Rx's ?Medication ?Instructions ?Recorded acetaminophen 650 mg 650 mg PO Q8H PRN for pain #90 tabs 01/04/23 tablet,extended release prednisone 20 mg tablet 40 mg (2 x 20 mg) PO DAILY #10 tabs 08/15/23 Allergies Allergy/AdvReac Type Severity Reaction Status Date / Time latex [LATEX] Allergy Severe DIFFICULTY Verified 09/07/23 07:39 BREATHING aspirin [Aspirin] Allergy Intermediate ITCHING, Verified 09/07/23 07:39 itchiness ciprofloxacin [From CIPRO] Allergy Intermediate DIAPHORESIS Verified 09/07/23 07:39 /PURITIS Penicillins [PENICILLINS] Allergy Unknown UNKNOWN Verified 09/07/23 07:39 HEMALATHA Inhibitors AdvReac Intermediate COUGH Verified 09/07/23 07:39 [HEMALATHA INHIBITORS] Review of Systems 2 Review of Systems: Constitutional : No Fever, No Chills ENT/Mouth : No Hoarseness, No sore throat, No Rhinorrhea Eyes: No Redness, No Discharge, No Vision Changes Cardiovascular : No Chest Pain, positive SOB, positive Dyspnea on Exertion, No Edema Respiratory : positive Cough, No Sputum, positive Wheezing, Gastrointestinal : No Nausea, No Vomiting, No Diarrhea, No abdominal Pain Genitourinary : No Dysuria, No Hematuria Musculoskeletal : No joint pain, No Myalgias Skin : No rash Neuro : No Weakness, No Numbness, No Headache Psych : No anxiety, depression All other systems reviewed and are negative PMFSH Past Medical History Attestation statement: The following information was validated with the patient. Source: old records reviewed Medical History COPD (chronic obstructive pulmonary disease) Pacemaker Asthma with exacerbation Smoking Restrictive airway disease MARY (obstructive sleep apnea) MARY on CPAP Reactive airways dysfunction syndrome Rheumatoid arthritis Fibromyalgia GERD (gastroesophageal reflux disease) MARY (obstructive sleep apnea) Aortic valve endocarditis COPD (chronic obstructive pulmonary disease) COPD exacerbation Overactive bladder Bronchitis Allergic rhinitis COPD (chronic obstructive pulmonary disease) Asthma Hx of cardiac pacemaker Hx of migraines Hx of coronary artery disease History of urinary incontinence Hx of essential hypertension History of depression Hx of drug abuse Hx of hyperlipidemia Hx of allergic rhinitis History of enuresis Hx of osteoarthritis Hx of pilonidal cyst Family history of GERD History of arthritis Hx of diabetes mellitus Surgical History History of surgical removal of pilonidal cyst Hx of bilateral cataract extraction Hx of colonoscopy History of cystoscopy History of hysterectomy Hx of aortic valve replacement Hx laparoscopic cholecystectomy History of epidermal inclusion cyst excision Social History Social History Household Members: Significant Other Household Members Other:: self Housing: Apartment Do you presently have visiting nurse or other home services: No Alcohol intake: former Comment: refusing alarms Patient Tobacco Use Status: Former Tobacco user Tobacco use type: Cigarette Cigarettes Per Day: 3 Smoked in Last 30 Days: Yes e-Cigarette/Vaping Use: Never Used Second Hand Smoke Exposure: No Use of substances other than those prescribed or required for medical reasons: No Substance Use Type: Former Substance User Advance Directives: Yes Advance Directives on File: Yes Advance Directives Date on File: 11/08/21 Do you have a plan to hurt others: No Plan Patient : No service: No Current occupational status: unemployed and disabled Physical Exam 2 Vital Signs: Vital Signs: Last Vital Signs Temp 98 F 09/07/23 08:04 Pulse 62 09/07/23 08:19 Resp 32 H 09/07/23 08:19 BP 126/81 09/07/23 08:19 Pulse Ox 92 09/07/23 08:19 O2 Del Method Room Air 09/07/23 08:19 BMI result Body Mass Index 27.9 Appearance: Alert. Oriented X3. moderate acute distress. Eyes: Pupils equal, round and reactive to light. ENT: Pharynx normal. Neck: Normal inspection. Neck supple. CVS: Normal heart rate and rhythm. Pulses normal. Respiratory: Moderate respiratory distress anxious tachypnea retractions. Breath sounds diffuse insp and exp wheezes Abdomen: Soft and nontender. Skin: Skin warm and diaphoretic. Normal skin color. Normal skin turgor. Extremities: No lower extremity edema. No calf ttp Neuro: Oriented X 3. No motor deficit. No sensory deficit. Course Course Course Narrative: repeat neb requested she is improving 807am Reevaluation(s) Reevaluation #1: improving much more relaxed RR 24 still coarse and wheezing plan to admit Medications Administered Generic Name Dose Route Start Last Admin Trade Name Freq PRN Reason Stop Dose Admin Magnesium Sulfate 2 gm in 50 mls @ 25 mls/hr 09/07/23 07:34 09/07/23 07:55 Magnesium Sulfate/H2o IV 09/07/23 09:33 25 mls/hr ONCE ONE Administration Discontinued Medications Generic Name Dose Route Start Last Admin Trade Name Freq PRN Reason Stop Dose Admin Albuterol Sulfate 7.5 mg/ 0 mg 09/07/23 07:38 09/07/23 07:45 Albuterol/Ipratropium 3 ml INHALE 09/07/23 07:39 10 each ONCE ONE Administration Albuterol Sulfate 5 mg/ 0 mg 09/07/23 08:08 09/07/23 08:12 Albuterol/Ipratropium 3 ml INHALE 09/07/23 08:09 1 each ONCE ONE Administration Fentanyl 25 mcg 09/07/23 07:40 09/07/23 07:54 Fentanyl Citrate/Pf 100 Mcg/2 Ml Vial IVPUSH 09/07/23 07:41 25 mcg ONCE ONE Administration Protocol Methylprednisolone Sodium Succinate 60 mg 09/07/23 07:34 09/07/23 07:54 Methylprednisolone Sod Succ 125 Mg/2 Ml Vial IVPUSH 09/07/23 07:35 60 mg ONCE ONE Administration Medical Decision Making Medical Decision Making MDM Narrative: 62 yo female with COPD - asthma overlap syndrome, still smokes, PPM for complete heart block, severe aortic stenosis (has not followed up and has missed several appointments), DM,infective endocarditis including perivalvular abscess/staph 2004 s/p TAVR, HTN, MARY does not use CPAP, RA here with c/o cough, wheezing, asthma exacerbation x 3 days she denies fevers and sputum at this time she was very air hungry and agitated on arrival IV fentanyl ordered, hour long long neb, IV solumedrol, IV magnesium. Given presentation will monitor closely and anticipate admisison. Differential Diagnosis Differential Diagnoses: The differential diagnosis associated with the presentation includes asthma, bronchitis - viral Admission/Observation Consideration of admission/observation: Escalation of care including admission/observation considered Consult Healthcare Provider Management of the patient was discussed with: Hospitalist Lab Data MDM Lab Attestation statement: I reviewed the patient's lab results. 09/07/23 07:48 09/07/23 07:48 Labs: Lab Results 09/07/23 09/07/23 Range/Units 07:48 07:54 WBC 6.8 (4.8-10.8) X10*3/uL RBC 5.03 (4.20-5.50) X10*6/uL Hgb 14.5 (12.0-16.0) g/dl Hct 44.1 (37.0-47.0) % MCV 87.7 (80.0-98.0) fL MCH 28.8 (27.0-33.0) pg MCHC 32.9 (31.0-35.0) g/dl RDW 13.1 (11.0-16.0) % Plt Count 404 H D (160-400) X10*3/uL MPV 9.2 L (9.4-12.3) fL Immature Gran % (Auto) 0.3 (0.0-0.4) % Neut % (Auto) 52.0 (45-73) % Lymph % (Auto) 28.3 (20-40) % Gregg % (Auto) 9.5 (2-11) % Eos % (Auto) 9.3 H (0-4) % Baso % (Auto) 0.6 (0-2) % Lymph # (Auto) 1.9 (1.2-4.9) X10*3/uL Gregg # (Auto) 0.6 (0.1-1.2) X10*3/uL Eos # (Auto) 0.6 H (0.0-0.4) X10*3/uL Baso # (Auto) 0.0 (0.0-0.2) X10*3/uL Abs Immat Gran (auto) 0.02 (0.00-0.03) X10*3/uL Absolute Neuts (auto) 3.5 (2.0-8.3) x10*3/uL Absolute Nucleated RBC 0.000 (0.0-0.012) X10*3/uL Nucleated RBC % (auto) 0.0 (0.0-0.2) /100WBC VBG pH 7.32 (7.32-7.43) VBG pCO2 63 mmHg VBG pO2 61 mmHg VBG HCO3 33 H (22-26) mmol/L VBG O2 Saturation 86.0 % VBG Base Excess 5.1 mmol/L Sodium 142 (135-145) mmol/L Potassium 3.4 (3.3-5.1) mmol/L Chloride 103 (96-108) mmol/L Carbon Dioxide 29 (22-29) mmol/L Anion Gap 13 (12-20) BUN 12 (9-16) mg/dL Creatinine 0.77 (0.5-1.4) mg/dL Estim Creat Clear Calc 65.2 Estimated GFR > 60 Random Glucose 116 H (60-115) mg/dL Calcium 10.1 D (8.4-10.2) mg/dL Magnesium 1.9 (1.6-2.6) mg/dL Total Bilirubin 0.3 (0.0-1.0) mg/dL Direct Bilirubin 0.1 (0.0-0.5) mg/dL AST 21 (5-31) U/L ALT 13 (0-31) U/L Alkaline Phosphatase 81 (39-117) U/L Troponin I High Sens 8.8 (<3.5-17.0) ng/L B-Natriuretic Peptide 114 H (<100) pg/mL Total Protein 7.8 (6.5-8.0) g/dL Albumin 4.4 (3.5-5.0) g/dL Independent Interpretation I performed an independent interpretation of an: EKG and Plain X-Ray Interpretation: Rate: 61 Rhythm: paced [place]: left Normal P waves. Normal YURIDIA. wide QRS complex. ST T wave : inverted t waves I and aVL, no YUKO qTC: 569 prior studies: paced The study has been interpreted contemporaneously by me. . Radiology Impression Discussion of test interpretation with radiology: I have reviewed the radiologist's reading. Independent Historian Clinical information obtained from an independent historian. History obtained from or confirmed by: EMS External Record Review External record reviewed: Inpatient record Procedures EJ/Peripheral Line Arm R: Time Out Performed: Yes Skin Cleansed in Sterile Fashion: Yes Size (gauge): 20 IV Secured and Dressing Applied: Yes Patient Tolerated Procedure: well and no complications Additional Comments: US guided Critical Care Time Critical Care Time Critical Care Time: Yes Total Critical Care Time: 60 Attestation: IV magnesium, repeat hour long nebs, review of records, repeat assessments, review of VBG I attest to this time spent taking care of the patient Discharge Plan Discharge Clinical Impression: Asthma with exacerbation Patient Disposition: Admitted As Inpatient Prescriptions: No Action acetaminophen 650 mg tablet extended release 650 mg PO Q8H PRN (Reason: for pain) Qty: 90 3RF tiotropium bromide [Spiriva with HandiHaler] 18 mcg capsule, w/inhalation device 1 cap inhalation DAILY melatonin 5 mg tablet 5 mg PO BEDTIME PRN (Reason: insomnia) prednisone 20 mg tablet 40 mg PO DAILY Qty: 10 0RF montelukast 10 mg tablet 10 mg PO BEDTIME bisacodyl 5 mg tablet,delayed release (DR/EC) 10 mg PO BEDTIME gabapentin 100 mg capsule 100 mg PO TID sertraline 50 mg tablet 50 mg PO DAILY calcium carbonate-vitamin D3 600 mg-10 mcg (400 unit) tablet 1 tab PO DAILY hydrochlorothiazide 12.5 mg tablet 12.5 mg PO DAILY clopidogrel 75 mg tablet 75 mg PO DAILY amitriptyline 25 mg tablet 25 mg PO BEDTIME folic acid 1 mg tablet 1 mg PO DAILY cyanocobalamin (vitamin B-12) 1,000 mcg tablet 1,000 mcg PO QAM albuterol sulfate 2.5 mg /3 mL (0.083 %) solution for nebulization 2.5 mg inhalation Q4H PRN (Reason: Shortness Of Breath/Wheezing) albuterol sulfate [Ventolin HFA] 90 mcg/actuation Hfa Aerosol Inhaler 2 puff INHALATION Q4H PRN (Reason: Wheezing) amlodipine 5 mg tablet 5 mg PO QAM Print Language: [place]se
[2023-09-07] MEDS: methylPREDNISolone Sod Succ 125 MG/2 ML VIAL 60 MG IVPUSH (07:54)
[2023-09-07] MEDS: fentaNYL citrate/PF 100 MCG/2 ML VIAL 25 MCG IVPUSH (07:54)
[2023-09-07] MEDS: Magnesium Sulfate/H2O 2 GM/50 ML PIGGYBACK IV (07:55)
[2023-09-07 07:57] LABS: MANUAL DIFF FLAG NO
[2023-09-07 08:01] LABS: Basophils Percent Auto 0.6 % (0-2); Eosinophils Absolute Auto 0.6 X10*3/uL (0.0-0.4); Eosinophils Percent Auto 9.3 % (0-4); Hematocrit 44.1 % (37.0-47.0); Hemoglobin 14.5 g/dl (12.0-16.0); Imm Gran Abs Auto 0.02 X10*3/uL (0.00-0.03); Imm Gran Pct Auto 0.3 % (0.0-0.4); Lymphocytes Absolute Auto 1.9 X10*3/uL (1.2-4.9); Lymphocytes Percent Auto 28.3 % (20-40); Mean Corpuscular HGB Conc 32.9 g/dl (31.0-35.0); Mean Corpuscular Hemoglobin 28.8 pg (27.0-33.0); Mean Corpuscular Volume 87.7 fL (80.0-98.0); Mean Platelet Volume 9.2 fL (9.4-12.3); Monocytes Absolute Auto 0.6 X10*3/uL (0.1-1.2); Monocytes Percent Auto 9.5 % (2-11); Neutrophils Absolute Auto 3.5 x10*3/uL (2.0-8.3); Platelet Count 404 X10*3/uL (160-400); Red Blood Count 5.03 X10*6/uL (4.20-5.50); Red Cell Distribution Width 13.1 % (11.0-16.0); White Blood Count 6.8 X10*3/uL (4.8-10.8)
[2023-09-07 08:02] LABS: VBG Base Excess 5.1 mmol/L; VBG HCO3 33 mmol/L (22-26); VBG pCO2 63 mmHg; VBG pH 7.32 (7.32-7.43); VBG pO2 61 mmHg
[2023-09-07 08:04] LABS: Venous Blood Gas Refer to POC result
[2023-09-07] MEDS: Albuterol Sulfate 5 MG, Albuterol/Iprat 2.5/0.5MG 3 ML 3 ML INHALE (08:12)
[2023-09-07 08:14] LABS: Alanine Aminotransferase 13 U/L (0-31); Albumin Level 4.4 g/dL (3.5-5.0); Alkaline Phosphatase 81 U/L (39-117); Anion Gap 13 (12-20); Aspartate Amino Transferase 21 U/L (5-31); Bilirubin Direct 0.1 mg/dL (0.0-0.5); Bilirubin Total 0.3 mg/dL (0.0-1.0); Blood Urea Nitrogen 12 mg/dL (9-16); Calcium 10.1 mg/dL (8.4-10.2); Carbon Dioxide 29 mmol/L (22-29); Chloride 103 mmol/L (96-108); Creatinine Clr Calc Pharmacy 65.2; Estimated Glomerular Filt Rate > 60; Glucose Random 116 mg/dL (60-115); Magnesium 1.9 mg/dL (1.6-2.6); Potassium 3.4 mmol/L (3.3-5.1); Sodium 142 mmol/L (135-145); Total Protein 7.8 g/dL (6.5-8.0)
[2023-09-07 08:19] LABS: B Type Natriuretic Peptide 114 pg/mL (<100)
[2023-09-07 08:21] LABS: Troponin-I High Sensitivity 8.8 ng/L (<3.5-17.0)
[2023-09-07 09:49] LABS: Influenza A PCR NEGATIVE (Negative); Influenza B PCR NEGATIVE (Negative); Resp Syncy Virus RNA Qual PCR NEGATIVE (Negative); SARS COV2 PCR INHOUSE NEGATIVE (Negative)
--- NOTE | 2023-09-07 10:12 | PHA.MEDREC ---
Addendum entered by Elba Morel [facility] 09/07/23 10:26: Med red reviewed Original Note: Pharmacy Consult ? Medication Reconciliation Pharmacy has completed the medication reconciliation. Confirmed medications with help of interpret and went off discharge packet 08/15/23. Patient states nothing has changed in her medications. I asked about her Prednisone dose and if that is gonna be a continuous medication for her and she confirmed yes. I used most recent discharge packet to confirm med list.
[2023-09-07] MEDS: Albuterol Sulfate 2.5 MG, Albuterol/Iprat 2.5/0.5MG 3 ML 3 ML INHALE (10:59)
--- NOTE | 2023-09-07 12:18 | P.HPHOSP_ITS ---
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 The patient reports that she has been sick for few day and she went to ED where she was treated with nebulizer and sent home but never felt improvement. complaining of dyspnea with minimal exertion, wheezing, chest tightness, No chest pain, palpitations, nausea, vomiting, diarrhea or urinary symptoms. EMS was called and found her sats in 70s, improved with O2 supplement and nebulizer treatment. She follows with dr Wolff for Aotric stenosis with a plan for intervention in September. she was not sure what procedure. in ED she was combative requiring IV Fentanyl to calm her down to receive treatment. CXR not showing any acute findings. Admitted for further evaluation and treatment. Review of Systems 2 Review of Systems: No fever, chills No chest pain, palpitation having shortness of breath and wheezing with coughing No abdominal pain, nausea or vomiting No urinary symptoms PMFSH Medical History COPD (chronic obstructive pulmonary disease) Pacemaker Asthma with exacerbation Smoking Restrictive airway disease MARY (obstructive sleep apnea) MARY on CPAP Reactive airways dysfunction syndrome Rheumatoid arthritis Fibromyalgia GERD (gastroesophageal reflux disease) MARY (obstructive sleep apnea) Aortic valve endocarditis COPD (chronic obstructive pulmonary disease) COPD exacerbation Overactive bladder Bronchitis Allergic rhinitis COPD (chronic obstructive pulmonary disease) Asthma Hx of cardiac pacemaker Hx of migraines Hx of coronary artery disease History of urinary incontinence Hx of essential hypertension History of depression Hx of drug abuse Hx of hyperlipidemia Hx of allergic rhinitis History of enuresis Hx of osteoarthritis Hx of pilonidal cyst Family history of GERD History of arthritis Hx of diabetes mellitus Surgical History History of surgical removal of pilonidal cyst Hx of bilateral cataract extraction Hx of colonoscopy History of cystoscopy History of hysterectomy Hx of aortic valve replacement Hx laparoscopic cholecystectomy History of epidermal inclusion cyst excision Social History Household Members: Significant Other Household Members Other:: self Housing: Apartment Do you presently have visiting nurse or other home services: No Alcohol intake: former Comment: refusing alarms Patient Tobacco Use Status: Former Tobacco user Tobacco use type: Cigarette Cigarettes Per Day: 3 Smoked in Last 30 Days: Yes e-Cigarette/Vaping Use: Never Used Second Hand Smoke Exposure: No Use of substances other than those prescribed or required for medical reasons: No Substance Use Type: Former Substance User Advance Directives: Yes Advance Directives on File: Yes Advance Directives Date on File: 11/08/21 Do you have a plan to hurt others: No Plan Nutrition Risks: No Nutritional Risk Patient : No service: No Current occupational status: unemployed and disabled Meds Allergies Allergy/AdvReac Type Severity Reaction Status Date / Time latex [LATEX] Allergy Severe DIFFICULTY Verified 09/07/23 07:39 BREATHING aspirin [Aspirin] Allergy Intermediate ITCHING, Verified 09/07/23 07:39 itchiness ciprofloxacin [From CIPRO] Allergy Intermediate DIAPHORESIS Verified 09/07/23 07:39 /PURITIS Penicillins [PENICILLINS] Allergy Unknown UNKNOWN Verified 09/07/23 07:39 HEMALATHA Inhibitors AdvReac Intermediate COUGH Verified 09/07/23 07:39 [HEMALATHA INHIBITORS] Home Medications ?Medication ?Instructions ?Recorded ?Confirmed ?Last Taken ?Type amitriptyline 25 mg tablet 25 mg PO BEDTIME 07/03/22 09/07/23 09/06/23 History bisacodyl 5 mg tablet,delayed 10 mg PO BEDTIME 07/03/22 09/07/23 09/06/23 History release calcium carbonate 600 mg-vitamin 1 tab PO DAILY 07/03/22 09/07/23 09/06/23 History D3 10 mcg (400 unit) tablet clopidogrel 75 mg tablet 75 mg PO DAILY 07/03/22 09/07/23 09/06/23 History cyanocobalamin (vitamin B-12) 1,000 mcg PO QAM 07/03/22 09/07/23 09/06/23 History 1,000 mcg tablet folic acid 1 mg tablet 1 mg PO DAILY 07/03/22 09/07/23 09/06/23 History gabapentin 100 mg capsule 100 mg PO TID 07/03/22 09/07/23 09/06/23 History hydrochlorothiazide 12.5 mg tablet 12.5 mg PO DAILY 07/03/22 09/07/23 09/06/23 History montelukast 10 mg tablet 10 mg PO BEDTIME 07/03/22 09/07/23 09/06/23 History sertraline 50 mg tablet 50 mg PO DAILY 07/03/22 09/07/23 09/06/23 History melatonin 5 mg tablet 5 mg PO BEDTIME PRN insomnia 03/14/23 09/07/23 09/06/23 History tiotropium bromide 18 mcg capsule 1 cap inhalation DAILY 03/14/23 09/07/23 09/06/23 History with inhalation device (Spiriva with HandiHaler) albuterol sulfate 2.5 mg/3 mL 2.5 mg inhalation Q4H PRN 05/21/23 09/07/23 09/06/23 History (0.083 %) solution for nebulization Shortness Of Breath/Wheezing albuterol sulfate 90 mcg/actuation 2 puff inhalation Q4H PRN Wheezing 05/21/23 09/07/23 09/06/23 History aerosol inhaler (Ventolin HFA) amlodipine 5 mg tablet 5 mg PO QAM 08/03/23 09/07/23 09/06/23 History Physical Exam 2 Vital Signs and Narrative: Vital Signs: Last Vital Signs Temp 97.9 F 09/07/23 11:58 Pulse 66 09/07/23 11:58 Resp 24 H 09/07/23 11:58 BP 107/65 09/07/23 11:58 Pulse Ox 95 09/07/23 11:58 O2 Del Method Room Air 09/07/23 11:58 BMI result Body Mass Index 27.9 Const: Other: Constitutional : Awake, interactive, in mild distress Neck : Normal inspection, Supple Cardiovascular : RRR, no JVP, no lower extremity edema Respiratory : decreased bilateral air entry, no crackles, bilateral expiratory wheezes Gastrointestinal: soft, lax, Normal bowel sounds, Non tender Skin : Warm, Dry Neurological : Alert & oriented x3, No focal deficit Results Labs 09/07/23 07:48 09/07/23 07:48 Labs: Laboratory Results - last 24 hr 09/07/23 09/07/23 07:48 07:54 MCV 87.7 MCH 28.8 MCHC 32.9 RDW 13.1 Plt Count 404 H D MPV 9.2 L Immature Gran % (Auto) 0.3 Neut % (Auto) 52.0 Lymph % (Auto) 28.3 [place] % (Auto) 9.5 Eos % (Auto) 9.3 H Baso % (Auto) 0.6 Lymph # (Auto) 1.9 [place] # (Auto) 0.6 Eos # (Auto) 0.6 H Baso # (Auto) 0.0 Abs Immat Gran (auto) 0.02 Absolute Neuts (auto) 3.5 Absolute Nucleated RBC 0.000 Nucleated RBC % (auto) 0.0 VBG pH 7.32 VBG pCO2 63 VBG pO2 61 VBG HCO3 33 H VBG O2 Saturation 86.0 VBG Base Excess 5.1 Anion Gap 13 Estim Creat Clear Calc 65.2 Estimated GFR > 60 Random Glucose 116 H Calcium 10.1 D Magnesium 1.9 Total Bilirubin 0.3 Direct Bilirubin 0.1 AST 21 ALT 13 Alkaline Phosphatase 81 Troponin I High Sens 8.8 B-Natriuretic Peptide 114 H Total Protein 7.8 Albumin 4.4 Influenza Type A (PCR) NEGATIVE Influenza Type B (PCR) NEGATIVE RSV RNA Qual (PCR) NEGATIVE SARS-CoV-2 RNA (RT-PCR) NEGATIVE Imaging Radiologist's Impressions: Impressions Chest X-Ray 09/07/23 08:02 IMPRESSION: 1. No acute cardiopulmonary findings. 2. Stable prominence of the cardiomediastinal silhouette. 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 Hypixa 2/2 COPD\asthma exacerbation IV steroids Duonebs ATC and PRN Albuterol cough medicine Wean O2 down as tolerated TAVR 2004 w severe , symptomatic? most recent echo 03/21 showing severe . Was transferred to [facility] cardiology due to similar symptoms with Dr. Segovia who did not feel it is related to . she follows w Dr Wolff for get cardio eval check Echo hypertension hydrochlorothiazide Mood disorder Amitriptyline, sertraline MARY CPAP at bedtime hx of complete heart block s/p pacemaker dvt prophylaxis lovenox full code Quality Stroke Does the patient have a stroke diagnosis?: No VTE Prior VTE?: No VTE Risk Level:: Medical - moderate - high VTE Device Contraindication: Treatment Not Indicated VTE Drug Contraindication: N/A - Med Ordered
[2023-09-07] MEDS: Enoxaparin Sodium 40 MG/0.4 ML SYRINGE SUBCUT (13:20)
[2023-09-07] MEDS: guaiFENesin LA 600 MG TAB.ER.12H PO ×2 (13:20→20:36)
[2023-09-07] MEDS: Albuterol/Iprat 2.5/0.5MG 3 ML AMPUL.NEB INHALE ×2 (15:05→19:54)
[2023-09-07] MEDS: Benzonatate 100 MG CAPSULE PO ×2 (15:27→20:36)
[2023-09-07 16:29] LABS: Glucose, Whole Blood 160 mg/dL (60-115)
--- NOTE | 2023-09-07 17:00 | CA_ITS ---
Transthoracic Echocardiogram Patient (Last, First, Middle): Ting Keith, Gender: Female Date of : 1960 Age: 62 Procedure Date: 09/07/2023 Procedure Type: Transthoracic Echocardiogram Location: S3E Height: 152.4 cm Weight: 64.41 kg BSA: 1.61 m2 Heart Rate: bpm BP: 133 / 80 mmHg Key Cutter: Referring MD: Kade Parker MD Symptoms: F U Aortic stenosis Study Quality: Good ECG Rhythm: Sinus with extra beats Conclusions: - Normal left ventricular size and systolic function. There is mildly increased left ventricular wall thickness. The visually estimated ejection fraction is between 55-60%. - Normal right ventricular cavity size and systolic function. There is a pacemaker wire seen in the right ventricle. - There is severe aortic valve stenosis. The peak aortic velocity is 4.64 m/s. The mean gradient is 48 mmHg. The aortic valve area is 0.77 cm2. There is no aortic valve regurgitation. Findings Left Ventricle Normal left ventricular size and systolic function. There is mildly increased left ventricular wall thickness. The visually estimated ejection fraction is between 55-60%. There is no evidence of regional wall motion abnormalities. Diastolic function is indeterminate on the basis of available data. Right Ventricle Normal right ventricular cavity size and systolic function. There is a pacemaker wire seen in the right ventricle. Atria The left atrium is normal in size. Aortic Valve The aortic valve was not well visualized. There is moderate calcification of the aortic valve. There is severe aortic valve stenosis. The peak aortic velocity is 4.64 m/s. The mean gradient is 48 mmHg. The aortic valve area is 0.77 cm2. There is no aortic valve regurgitation. Mitral Valve The mitral valve appears normal. There is trace mitral valve regurgitation. There is no mitral valve stenosis. Pulmonic Valve The pulmonic valve is normal. There is no pulmonic valve regurgitation. Tricuspid Valve Normal tricuspid valve structure and function. Normal right atrial pressure. There is no evidence of pulmonary hypertension. Great Vessels All visible segments of the aorta are normal in size. The visualized portions of the pulmonary artery and branches are normal. Venous The inferior vena cava is normal in size and collapses greater than 50% with inspiration. Pericardium/Pleural There is no evidence of pericardial effusion. Prior Study Comparison Changes noted compared to prior study dated: 03/15/2023. CHARLY 0.7. Severe . Measurements 2D Linear Measurements IVSd: 1.13 0.6-0.9/0.6-1.0 cm LVIDd: 4.55 3.9-5.3/4.2-5.9 cm LVIDd Index: 2.83 2.4-3.2/2.2-3.1 cm/m2 LVIDs: 2.83 2.0-3.6 cm LVPWd: 1.07 0.7-1.1 cm Ao Root: 2.30 2.1-3.5 cm LA Diam: 3.60 2.7-3.8/3.0-4.0 cm LAIDs Index: 2.24 1.5-2.3 cm/m2 LV Mass: 221.88 67-162/88-224 g LV Mass Index: 137.82 43-95/49-115 g/m2 LVOT Diam: 1.80 3.0+(-)1.3 cm Mitral Valve MV Pk E: 1.17 MV Decel Time: 326.00 E'Lateral: 8.16 E'Medial: 5.66 E/E' Med: 20.70 E/E' Lat: 14.30 PHT: 95.00 MVA PHT: 2.32 Decel Kay: 3.59 Aortic Valve AoV Pk Trever: 4.64 AoV Mn Trever: 3.17 AoV VTI: 0.83 AoV Pk Grad: 86.00 Aov Mn Grad: 48.00 CHARLY Cont.VTI: 0.77 LVOT LVOT Pk Trever: 1.19 LVOT Mn Trever: 0.81 LVOT VTI: 0.25 LVOT Pk Grad: 6.00 LVOT Mn Grad: 3.00 LVOT Diam: 1.80 LVOT Area: 2.54 Diastolic Function MV Pk E: 1.17 E'Medial: 5.66 E/E' Med: 20.70 E' Laterial: 8.16 E/E' Lat: 14.30 Right Ventricle TAPSE (mm): 23.00 TVS' Trever: 15.00 Tricuspid Valve TR Pk Trever: 2.51 TR Pk Grad: 25.00 RA Press: 8.00 RVSP: 33.00 Great Vessels Aorta Ao Root-2D: 2.30 2.0-3.7 cm Ao Asc: 2.40 2.1-3.4 cm Pulmonary Valve PV Pk Trever: 1.79 Peak PV Grad: 13.00 Updated in Other Vendor System with Status of Final Tony Borrero MD electronically signed on 09/08/2023 7:37:17 PM with status of Final
[2023-09-07] MEDS: Insulin Lispro 100 UNIT/ML 3 ML VIAL SUBCUT (17:06)
[2023-09-07] MEDS: amLODIPine Besylate 5 MG TABLET PO (17:06)
[2023-09-07] MEDS: Cyanocobalamin (Vitamin B-12) 1,000 MCG TABLET 1000 MCG PO (17:06)
[2023-09-07 19:35] LABS: Glucose, Whole Blood 84 mg/dL (60-115)
--- NOTE | 2023-09-07 20:07 | PC.RT ---
Pt refuses CPAP, states she does not wear at home, does not want here
[2023-09-07] MEDS: Gabapentin 100 MG CAPSULE PO (20:35)
[2023-09-07] MEDS: Amitriptyline HCl 25 MG TABLET PO (20:35)
[2023-09-07] MEDS: Montelukast Sodium 10 MG TABLET PO (20:35)
[2023-09-07] MEDS: bisacodyL 5 MG TABLET.DR 10 MG PO (20:35)
[2023-09-07] MEDS: methylPREDNISolone Sod Succ 40 MG/ML VIAL IVPUSH (20:40)
[2023-09-07] MEDS: Acetaminophen 325 MG TABLET 650 MG PO (21:07)
[2023-09-08] VITALS (7 sets, daily range): BP systolic 108–128; BP diastolic 59–65; PULSE 61–88; RESP 16–24; TEMP 36.2–36.4; O2SAT 95–100
[2023-09-08 06:48] LABS: Anion Gap 12 (12-20); Blood Urea Nitrogen 17 mg/dL (9-16); Calcium 9.9 mg/dL (8.4-10.2); Carbon Dioxide 30 mmol/L (22-29); Chloride 103 mmol/L (96-108); Creatinine Clr Calc Pharmacy 72.8; Estimated Glomerular Filt Rate > 60; Glucose Random 133 mg/dL (60-115); Potassium 3.7 mmol/L (3.3-5.1); Sodium 141 mmol/L (135-145)
[2023-09-08 07:07] LABS: Appearance Urine Clear; Color Urine Yellow; Glucose Urine UA Negative (Negative); Leukocyte Esterase Urine Negative (Negative); Nitrite Urine Negative (Negative); Specific Gravity - Urine 1.015 (1.005-1.025); Urine Blood Negative (Negative); Urine Ketones Negative (Negative); Urine Protein Negative (Neg-Trace)
[2023-09-08 07:34] LABS: Glucose, Whole Blood 121 mg/dL (60-115)
[2023-09-08] MEDS: Albuterol/Iprat 2.5/0.5MG 3 ML AMPUL.NEB INHALE ×3 (08:14→19:54)
[2023-09-08] MEDS: hydroCHLOROthiazide 12.5 MG TABLET PO (08:36)
[2023-09-08] MEDS: methylPREDNISolone Sod Succ 40 MG/ML VIAL IVPUSH ×2 (08:36→19:36)
[2023-09-08] MEDS: guaiFENesin LA 600 MG TAB.ER.12H PO ×2 (08:36→19:37)
[2023-09-08] MEDS: Clopidogrel Bisulfate 75 MG TABLET PO (08:37)
[2023-09-08] MEDS: amLODIPine Besylate 5 MG TABLET PO (08:37)
[2023-09-08] MEDS: Cyanocobalamin (Vitamin B-12) 1,000 MCG TABLET 1000 MCG PO (08:37)
[2023-09-08] MEDS: Folic Acid 1 MG TABLET PO (08:37)
[2023-09-08] MEDS: Sertraline HCL 50 MG TABLET PO (08:37)
[2023-09-08] MEDS: Benzonatate 100 MG CAPSULE PO ×3 (08:37→19:37)
[2023-09-08] MEDS: Gabapentin 100 MG CAPSULE PO ×3 (08:37→19:37)
[2023-09-08 11:14] LABS: Glucose, Whole Blood 123 mg/dL (60-115)
--- NOTE | 2023-09-08 11:21 | MHC.CM.PN ---
ANALIA delivered. 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 Ambulates w/ cane. Active w/ [facility] for PT. PCP Ting Hampton HCP on file and verified. DP: Goal is home to resume LOG [employer]PER[employer] & [facility] services. Return referral sent to [facility] via [facility]. Will need transport via Lyft or [facility] shuttle. CM will continue to follow.
--- NOTE | 2023-09-08 12:23 | HO.PM.IMPN ---
Subjective Subjective Date of Service: 09/08/23 Interval History: seen and evaluated this morning still wheezy, dyspnea with exertion denies any chest pain Review of Systems Review of Systems: Yes all other systems are reviewed and are negative Physical Exam Vital Signs: Vital Signs: Last Vital Signs Temp 97.6 F 09/08/23 07:25 Pulse 80 09/08/23 11:31 Resp 16 09/08/23 11:31 BP 113/59 L 09/08/23 07:25 Pulse Ox 95 09/08/23 07:25 O2 Del Method Room Air 09/08/23 07:25 BMI result Body Mass Index 27.9 Const: Other: Constitutional : Awake, interactive, in mild distress Neck : Normal inspection, Supple Cardiovascular : RRR, no JVP, no lower extremity edema Respiratory : decreased bilateral air entry, no crackles, bilateral expiratory wheezes Gastrointestinal: soft, lax, Normal bowel sounds, Non tender Skin : Warm, Dry Neurological : Alert & oriented x3, No focal deficit Objective Data Active Medications Acetaminophen (Acetaminophen 325 Mg Tablet) 650 mg PO Q6H PRN PRN Reason: Pain, Mild (Pain Scale 1-3), fever or headache Last Admin: 09/07/23 21:07 Dose: 650 mg Documented By: FELIPE Albuterol Sulfate (Albuterol Sulfate (0.083%) 2.5 Mg/3 Ml Vial.Neb) 2.5 mg INHALE Q4H PRN PRN Reason: Shortness Of Breath/Wheezing Albuterol/Ipratropium (Albuterol/Iprat 2.5/0.5mg 3 Ml Ampul.Neb) 3 ml INHALE RQ4H WHILE AWAKE [facility] Last Admin: 09/08/23 11:31 Dose: 3 ml Documented By: CHARLOTTE Amitriptyline HCl (Amitriptyline Hcl 25 Mg Tablet) 25 mg PO BEDTIME [facility] Last Admin: 09/07/23 20:35 Dose: 25 mg Documented By: FELIPE Amlodipine Besylate (Amlodipine Besylate 5 Mg Tablet) 5 mg PO DAILY [facility]; Protocol Last Admin: 09/08/23 08:37 Dose: 5 mg Documented By: KRZYSZTOF Benzonatate (Benzonatate 100 Mg Capsule) 100 mg PO TID [facility] Last Admin: 09/08/23 08:37 Dose: 100 mg Documented By: KRZYSZTOF Bisacodyl (Bisacodyl 5 Mg Tablet.Dr) 10 mg PO BEDTIME [facility] Last Admin: 09/07/23 20:35 Dose: 10 mg Documented By: FELIPE Calcium Carbonate (Calcium Carbonate 750 Mg Tab.Chew) 750 mg PO Q4H PRN PRN Reason: Heartburn Clopidogrel Bisulfate (Clopidogrel Bisulfate 75 Mg Tablet) 75 mg PO DAILY [facility] Last Admin: 09/08/23 08:37 Dose: 75 mg Documented By: KRZYSZTOF Cyanocobalamin (Cyanocobalamin (Vitamin B-12) 1,000 Mcg Tablet) 1,000 mcg PO DAILY [facility] Last Admin: 09/08/23 08:37 Dose: 1,000 mcg Documented By: KRZYSZTOF Enoxaparin Sodium (Enoxaparin Sodium 40 Mg/0.4 Ml Syringe) 40 mg SUBCUT Q24H [facility] Last Admin: 09/07/23 13:20 Dose: 40 mg Documented By: ADITHYA Folic Acid (Folic Acid 1 Mg Tablet) 1 mg PO DAILY [facility] Last Admin: 09/08/23 08:37 Dose: 1 mg Documented By: KRZYSZTOF Gabapentin (Gabapentin 100 Mg Capsule) 100 mg PO TID [facility] Last Admin: 09/08/23 08:37 Dose: 100 mg Documented By: KRZYSZTOF Guaifenesin (Guaifenesin La 600 Mg Tab.Er.12h) 600 mg PO BID [facility] Last Admin: 09/08/23 08:36 Dose: 600 mg Documented By: KRZYSZTOF Hydrochlorothiazide (Hydrochlorothiazide 12.5 Mg Tablet) 12.5 mg PO DAILY [facility]; Protocol Last Admin: 09/08/23 08:36 Dose: 12.5 mg Documented By: KRZYSZTOF Insulin Human Lispro (Insulin Lispro 100 Unit/Ml 3 Ml Vial) 0 unit SUBCUT QIDACHS [facility]; Protocol Last Admin: 09/08/23 08:36 Dose: Not Given Documented By: KRZYSZTOF Non-Admin Reason: No Insulin Coverage Magnesium Hydroxide (Milk Of Magnesia 30 Ml Oral.Susp) 30 ml PO DAILY PRN PRN Reason: Constipation Melatonin (Melatonin 3 Mg Tablet) 6 mg PO BEDTIME PRN PRN Reason: insomnia Methylprednisolone Sodium Succinate (Methylprednisolone Sod Succ 40 Mg/Ml Vial) 40 mg IVPUSH Q12H [facility] Last Admin: 09/08/23 08:36 Dose: 40 mg Documented By: KRZYSZTOF Montelukast Sodium (Montelukast Sodium 10 Mg Tablet) 10 mg PO BEDTIME [facility] Last Admin: 09/07/23 20:35 Dose: 10 mg Documented By: FELIPE Ondansetron HCl (Ondansetron Hcl 4 Mg/2 Ml Vial) 4 mg IVPUSH Q8H PRN PRN Reason: Nausea and Vomiting Sertraline HCl (Sertraline Hcl 50 Mg Tablet) 50 mg PO DAILY [facility] Last Admin: 09/08/23 08:37 Dose: 50 mg Documented By: KRZYSZTOF Labs 09/07/23 07:48 09/08/23 05:51 Labs: Laboratory Results - last 24 hr 09/07/23 09/07/23 09/08/23 16:26 19:32 05:51 Anion Gap 12 Estim Creat Clear Calc 72.8 Estimated GFR > 60 POC Glucose 160 H 84 Random Glucose 133 H Calcium 9.9 Urine Color Urine Appearance Urine pH Ur Specific [place] Urine Protein Urine Glucose (UA) Urine Ketones Urine Blood Urine Nitrite Ur Leukocyte Esterase 09/08/23 09/08/23 09/08/23 06:29 07:30 11:09 Anion Gap Estim Creat Clear Calc Estimated GFR POC Glucose 121 H 123 H Random Glucose Calcium Urine Color Yellow Urine Appearance Clear Urine pH 7.0 Ur Specific [place] 1.015 Urine Protein Negative Urine Glucose (UA) Negative Urine Ketones Negative Urine Blood Negative Urine Nitrite Negative Ur Leukocyte Esterase Negative Assessment and Plan (1) Acute exacerbation of chronic obstructive airways disease: Status: Acute Plan A 62 years old lady with PMH of COPD\Asthma, smoker, PPM for CHB, DMII, IE S\P TAVR 2004 w severe ,, MARY not using CPAP who presents to the hospital with SOB and wheezing for 3 days [employer]. Hypixa 2/2 COPD\asthma exacerbation IV steroids Duonebs ATC and PRN Albuterol cough medicine TAVR 2004 w severe most recent echo 03/21 showing severe . Was transferred to [facility] cardiology due to similar symptoms with Dr. Segovia who did not feel it is related to . she follows w Dr Wolff for [place] [facility] cardiology input appreciated, likely asthma, will follow at [facility] for angiogram next month hypertension hydrochlorothiazide Mood disorder Amitriptyline, sertraline MARY CPAP at bedtime hx of complete heart block s/p pacemaker dvt prophylaxis lovenox full code Quality Stroke Does the patient have a stroke diagnosis?: No VTE Prior VTE?: No VTE Risk Level:: Medical - moderate - high VTE Device Contraindication: Treatment Not Indicated VTE Drug Contraindication: N/A - Med Ordered
--- NOTE | 2023-09-08 12:29 | P.CONCA_ITS ---
History of Present Illness History of Present Illness Date of Service: 09/08/23 Requesting physician: Kade Parker Chief complaint: Hypoxia, Asthma Narrative: 62-year-old female with known history of aortic valve stenosis with previous aortic valve replacement, asthma and shortness of breath. She has been experiencing coughing and shortness of breath and came in for that. Previously was seen and was transferred to [facility] for further assessment and it appears she has a cardiac catheterization planned in September to assess the aortic valve because there is concern that she has bioprosthetic aortic valve stenosis. She is denying chest pain or any dizziness. Main complaint is shortness of breath and coughing. She is wheezing all over and. Appears to be in asthma. No peripheral edema or abdominal distention. [facility] Past Medical History Medical History COPD (chronic obstructive pulmonary disease) Pacemaker Asthma with exacerbation Smoking Restrictive airway disease MARY (obstructive sleep apnea) MARY on CPAP Reactive airways dysfunction syndrome Rheumatoid arthritis Fibromyalgia GERD (gastroesophageal reflux disease) MARY (obstructive sleep apnea) Aortic valve endocarditis COPD (chronic obstructive pulmonary disease) COPD exacerbation Overactive bladder Bronchitis Allergic rhinitis COPD (chronic obstructive pulmonary disease) Asthma Hx of cardiac pacemaker Hx of migraines Hx of coronary artery disease History of urinary incontinence Hx of essential hypertension History of depression Hx of drug abuse Hx of hyperlipidemia Hx of allergic rhinitis History of enuresis Hx of osteoarthritis Hx of pilonidal cyst Family history of GERD History of arthritis Hx of diabetes mellitus Surgical History Surgical History History of surgical removal of pilonidal cyst Hx of bilateral cataract extraction Hx of colonoscopy History of cystoscopy History of hysterectomy Hx of aortic valve replacement Hx laparoscopic cholecystectomy History of epidermal inclusion cyst excision Social History Social History Household Members: Family Household Members Other:: son Housing: Apartment Do you presently have visiting nurse or other home services: Yes ([employer] everyday) Alcohol intake: former Comment: refusing alarms Patient Tobacco Use Status: Former Tobacco user Tobacco use type: Cigarette Cigarettes Per Day: 3 Smoked in Last 30 Days: Yes e-Cigarette/Vaping Use: Never Used Second Hand Smoke Exposure: No Use of substances other than those prescribed or required for medical reasons: No Substance Use Type: Former Substance User Currently Displaying Signs/Symptoms of Drug Intoxication Withdrawal: No Any prior treatment program specific to substance use: No Have you been hit, kicked, punched, or otherwise hurt by someone within the past year? If so, by whom?: No Do you feel safe in your current relationship?: No Current Relationship Is there a partner from a previous relationship who is making you feel unsafe now?: No Are you made to feel afraid or neglected: No Advance Directives: Yes Advance Directives on File: Yes Advance Directives Date on File: 11/08/21 Do you have a plan to hurt others: No Plan Recently lost weight without trying: Unsure How much weight loss: Unsure Eating poorly because of decreased appetite: No Nutrition screen score: 4 Nutrition Risks: No Nutritional Risk Patient : No : No Poor oral hygiene: No service: No Current occupational status: unemployed and disabled Meds Allergies Allergy/AdvReac Type Severity Reaction Status Date / Time latex [LATEX] Allergy Severe DIFFICULTY Verified 09/07/23 07:39 BREATHING aspirin [Aspirin] Allergy Intermediate ITCHING, Verified 09/07/23 07:39 itchiness ciprofloxacin [From CIPRO] Allergy Intermediate DIAPHORESIS Verified 09/07/23 07:39 /PURITIS Penicillins [PENICILLINS] Allergy Unknown UNKNOWN Verified 09/07/23 07:39 HEMALATHA Inhibitors AdvReac Intermediate COUGH Verified 09/07/23 07:39 [HEMALATHA INHIBITORS] Active Medications: Current Medications Acetaminophen (Acetaminophen 325 Mg Tablet) 650 mg PO Q6H PRN PRN Reason: Pain, Mild (Pain Scale 1-3), fever or headache Last Admin: 09/07/23 21:07 Dose: 650 mg Albuterol Sulfate (Albuterol Sulfate (0.083%) 2.5 Mg/3 Ml Vial.Neb) 2.5 mg INHALE Q4H PRN PRN Reason: Shortness Of Breath/Wheezing Albuterol/Ipratropium (Albuterol/Iprat 2.5/0.5mg 3 Ml Ampul.Neb) 3 ml INHALE RQ4H WHILE AWAKE [facility] Last Admin: 09/08/23 11:31 Dose: 3 ml Amitriptyline HCl (Amitriptyline Hcl 25 Mg Tablet) 25 mg PO BEDTIME [facility] Last Admin: 09/07/23 20:35 Dose: 25 mg Amlodipine Besylate (Amlodipine Besylate 5 Mg Tablet) 5 mg PO DAILY [facility]; Protocol Last Admin: 09/08/23 08:37 Dose: 5 mg Benzonatate (Benzonatate 100 Mg Capsule) 100 mg PO TID [facility] Last Admin: 09/08/23 08:37 Dose: 100 mg Bisacodyl (Bisacodyl 5 Mg Tablet.Dr) 10 mg PO BEDTIME [facility] Last Admin: 09/07/23 20:35 Dose: 10 mg Calcium Carbonate (Calcium Carbonate 750 Mg Tab.Chew) 750 mg PO Q4H PRN PRN Reason: Heartburn Clopidogrel Bisulfate (Clopidogrel Bisulfate 75 Mg Tablet) 75 mg PO DAILY [facility] Last Admin: 09/08/23 08:37 Dose: 75 mg Cyanocobalamin (Cyanocobalamin (Vitamin B-12) 1,000 Mcg Tablet) 1,000 mcg PO DAILY [facility] Last Admin: 09/08/23 08:37 Dose: 1,000 mcg Enoxaparin Sodium (Enoxaparin Sodium 40 Mg/0.4 Ml Syringe) 40 mg SUBCUT Q24H [facility] Last Admin: 09/07/23 13:20 Dose: 40 mg Folic Acid (Folic Acid 1 Mg Tablet) 1 mg PO DAILY [facility] Last Admin: 09/08/23 08:37 Dose: 1 mg Gabapentin (Gabapentin 100 Mg Capsule) 100 mg PO TID [facility] Last Admin: 09/08/23 08:37 Dose: 100 mg Guaifenesin (Guaifenesin La 600 Mg Tab.Er.12h) 600 mg PO BID [facility] Last Admin: 09/08/23 08:36 Dose: 600 mg Hydrochlorothiazide (Hydrochlorothiazide 12.5 Mg Tablet) 12.5 mg PO DAILY [facility]; Protocol Last Admin: 09/08/23 08:36 Dose: 12.5 mg Insulin Human Lispro (Insulin Lispro 100 Unit/Ml 3 Ml Vial) 0 unit SUBCUT QIDACHS [facility]; Protocol Last Admin: 09/08/23 08:36 Dose: Not Given Magnesium Hydroxide (Milk Of Magnesia 30 Ml Oral.Susp) 30 ml PO DAILY PRN PRN Reason: Constipation Melatonin (Melatonin 3 Mg Tablet) 6 mg PO BEDTIME PRN PRN Reason: insomnia Methylprednisolone Sodium Succinate (Methylprednisolone Sod Succ 40 Mg/Ml Vial) 40 mg IVPUSH Q12H [facility] Last Admin: 09/08/23 08:36 Dose: 40 mg Montelukast Sodium (Montelukast Sodium 10 Mg Tablet) 10 mg PO BEDTIME [facility] Last Admin: 09/07/23 20:35 Dose: 10 mg Ondansetron HCl (Ondansetron Hcl 4 Mg/2 Ml Vial) 4 mg IVPUSH Q8H PRN PRN Reason: Nausea and Vomiting Sertraline HCl (Sertraline Hcl 50 Mg Tablet) 50 mg PO DAILY [facility] Last Admin: 09/08/23 08:37 Dose: 50 mg Home Medications ?Medication ?Instructions ?Recorded ?Confirmed ?Last Taken ?Type amitriptyline 25 mg tablet 25 mg PO BEDTIME 07/03/22 09/07/23 09/06/23 History bisacodyl 5 mg tablet,delayed 10 mg PO BEDTIME 07/03/22 09/07/23 09/06/23 History release calcium carbonate 600 mg-vitamin 1 tab PO DAILY 07/03/22 09/07/23 09/06/23 History D3 10 mcg (400 unit) tablet clopidogrel 75 mg tablet 75 mg PO DAILY 07/03/22 09/07/23 09/06/23 History cyanocobalamin (vitamin B-12) 1,000 mcg PO QAM 07/03/22 09/07/23 09/06/23 History 1,000 mcg tablet folic acid 1 mg tablet 1 mg PO DAILY 07/03/22 09/07/23 09/06/23 History gabapentin 100 mg capsule 100 mg PO TID 07/03/22 09/07/23 09/06/23 History hydrochlorothiazide 12.5 mg tablet 12.5 mg PO DAILY 07/03/22 09/07/23 09/06/23 History montelukast 10 mg tablet 10 mg PO BEDTIME 07/03/22 09/07/23 09/06/23 History sertraline 50 mg tablet 50 mg PO DAILY 07/03/22 09/07/23 09/06/23 History melatonin 5 mg tablet 5 mg PO BEDTIME PRN insomnia 03/14/23 09/07/23 09/06/23 History tiotropium bromide 18 mcg capsule 1 cap inhalation DAILY 03/14/23 09/07/23 09/06/23 History with inhalation device (Spiriva with HandiHaler) albuterol sulfate 2.5 mg/3 mL 2.5 mg inhalation Q4H PRN 05/21/23 09/07/23 09/06/23 History (0.083 %) solution for nebulization Shortness Of Breath/Wheezing albuterol sulfate 90 mcg/actuation 2 puff inhalation Q4H PRN Wheezing 05/21/23 09/07/23 09/06/23 History aerosol inhaler (Ventolin HFA) amlodipine 5 mg tablet 5 mg PO QAM 08/03/23 09/07/23 09/06/23 History Physical Exam 2 Vital Signs: Vital Signs: Last Vital Signs Temp 97.6 F 09/08/23 07:25 Pulse 80 09/08/23 11:31 Resp 16 09/08/23 11:31 BP 113/59 L 09/08/23 07:25 Pulse Ox 95 09/08/23 07:25 O2 Del Method Room Air 09/08/23 07:25 BMI result Body Mass Index 27.9 GENERAL APPEARANCE: in no acute distress, pleasant. NECK: no carotid bruit, no jugular venous distention. SKIN: no suspicious lesions, warm and dry. HEART: Systolic murmur aortic area, regular rate and rhythm. LUNGS: Bilateral expiratory wheezes. No crackles at bases. ABDOMEN: soft, nontender. EXTREMITIES: no edema. PERIPHERAL PULSES: equal. NEUROLOGIC: No gross deficits, AAO X 3 Objective Labs and Meds 09/07/23 07:48 09/08/23 05:51 Lab results: Laboratory Results - last 24 hr 09/07/23 09/07/23 09/08/23 16:26 19:32 05:51 Sodium 141 Potassium 3.7 Chloride 103 Carbon Dioxide 30 H Anion Gap 12 BUN 17 H Creatinine 0.69 Estim Creat Clear Calc 72.8 Estimated GFR > 60 POC Glucose 160 H 84 Random Glucose 133 H Calcium 9.9 Urine Color Urine Appearance Urine pH Ur Specific [place] Urine Protein Urine Glucose (UA) Urine Ketones Urine Blood Urine Nitrite Ur Leukocyte Esterase 09/08/23 09/08/23 09/08/23 06:29 07:30 11:09 Sodium Potassium Chloride Carbon Dioxide Anion Gap BUN Creatinine Estim Creat Clear Calc Estimated GFR POC Glucose 121 H 123 H Random Glucose Calcium Urine Color Yellow Urine Appearance Clear Urine pH 7.0 Ur Specific [place] 1.015 Urine Protein Negative Urine Glucose (UA) Negative Urine Ketones Negative Urine Blood Negative Urine Nitrite Negative Ur Leukocyte Esterase Negative Assessment and Plan (1) Asthma exacerbation: Status: Acute (2) Severe aortic stenosis: Status: Acute Plan [age] year female with background history of aortic valve replacement with 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 She also had complete heart block and currently has a pacemaker. Recent echocardiography has shown severe aortic valve stenosis. She has shortness of breath and is difficult to say symptoms are due to underlying lung disease versus aortic stenosis. She is here for shortness of breath and wheezing and clearly has asthma exacerbation. Not volume overloaded. Treat asthma with steroids and antibiotics if required. We will review echocardiogram which was performed on this admission. She has cardiac catheterization planned in September based on discussion with her with site interpreter. As asthma improved she can be discharged back home. Thank you for allowing me to participate in the care of your patient. Please feel free to contact me if you have any questions. Procedures Date of Service Date of Service: 09/08/23
[2023-09-08] MEDS: Enoxaparin Sodium 40 MG/0.4 ML SYRINGE SUBCUT (13:06)
[2023-09-08 15:58] LABS: Glucose, Whole Blood 131 mg/dL (60-115)
[2023-09-08] MEDS: Amitriptyline HCl 25 MG TABLET PO (19:37)
[2023-09-08] MEDS: Montelukast Sodium 10 MG TABLET PO (19:37)
[2023-09-08] MEDS: bisacodyL 5 MG TABLET.DR 10 MG PO (19:37)
--- NOTE | 2023-09-08 20:08 | PC.RT ---
Pt refused CPAP
[2023-09-08 20:30] LABS: Glucose, Whole Blood 150 mg/dL (60-115)
[2023-09-09 03:30] VITALS: BP 123/62; PULSE 52; RESP 18; TEMP 36; O2SAT 94
[2023-09-09 07:23] LABS: Glucose, Whole Blood 113 mg/dL (60-115)
[2023-09-09 07:26] VITALS: BP 143/61; PULSE 62; RESP 16; TEMP 36.1; O2SAT 96
[2023-09-09 08:05] VITALS: PULSE 62; RESP 16; O2SAT 97
[2023-09-09] MEDS: Albuterol/Iprat 2.5/0.5MG 3 ML AMPUL.NEB INHALE ×2 (08:05→11:29)
[2023-09-09] MEDS: Clopidogrel Bisulfate 75 MG TABLET PO (08:12)
[2023-09-09] MEDS: Sertraline HCL 50 MG TABLET PO (08:13)
[2023-09-09] MEDS: amLODIPine Besylate 5 MG TABLET PO (08:13)
[2023-09-09] MEDS: Cyanocobalamin (Vitamin B-12) 1,000 MCG TABLET 1000 MCG PO (08:13)
[2023-09-09] MEDS: Gabapentin 100 MG CAPSULE PO (08:13)
[2023-09-09] MEDS: guaiFENesin LA 600 MG TAB.ER.12H PO (08:13)
[2023-09-09] MEDS: Benzonatate 100 MG CAPSULE PO (08:13)
[2023-09-09] MEDS: hydroCHLOROthiazide 12.5 MG TABLET PO (08:13)
[2023-09-09] MEDS: methylPREDNISolone Sod Succ 40 MG/ML VIAL IVPUSH (08:13)
[2023-09-09] MEDS: Folic Acid 1 MG TABLET PO (08:13)
[2023-09-09 11:30] VITALS: PULSE 69; RESP 17; O2SAT 98
[2023-09-09 11:40] LABS: Glucose, Whole Blood 125 mg/dL (60-115)
--- NOTE | 2023-09-09 11:54 | PM.DS ---
DS: Providers Provider Date of Service: 09/09/23 Date of admission: 09/07/23 12:13 Primary care physician: Ting Hampton MD Consults: 09/07/23 15:37 Consult to Cardiology Routine Consulting Provider: [facility] Reason for consultation: Severe with dyspnea and hypoxia. DS: Diagnosis Discharge Diagnosis (1) Asthma exacerbation: Status: Acute (2) Severe aortic stenosis: Status: Acute DS: Summary Hospital Course Hospital Course: Admission note HPI A 62 years old lady with PMH of COPD\Asthma, smoker, PPM for CHB, severe , DMII, IE S\P TAVR 2004, MARY not using CPAP who presents to the hospital with SOB and wheezing for 3 days [employer]. The patient reports that she has been sick for few day and she went to ED where she was treated with nebulizer and sent home but never felt improvement. complaining of dyspnea with minimal exertion, wheezing, chest tightness, No chest pain, palpitations, nausea, vomiting, diarrhea or urinary symptoms. EMS was called and found her sats in 70s, improved with O2 supplement and nebulizer treatment. She follows with dr Wolff for Aotric stenosis with a plan for intervention in September. she was not sure what procedure. in ED she was combative requiring IV Fentanyl to calm her down to receive treatment. CXR not showing any acute findings. Admitted for further evaluation and treatment. Hospital course The patient was admitted for treatment of Hypoxa secondary to COPD\asthma exacerbation and was treated with IV steroids, Duonebs ATC and PRN Albuterol along with cough medicine with good response over the course of hospital stay as she weaned off O2 and was able to ambulate on room air with no reported dyspnea or hypoxia. Has history of TAVR 2004 w severe as she was evaluated by cardiology who felt her symptoms are likely from asthma exacerbation as [place] [facility]. Discharge plan Use home nebulizer 4 times daily for the next 3 days then as needed Finish tapering dose Prednisone as prescribed Time Attestation Discharge Coordination Time (in mins): 26 Quality: Safe Use of Opioids Does Pt have an Active Cancer Diagnosis on the Problem List?: No Quality: Stroke Does the patient have a stroke diagnosis?: No Physical Exam Vital Signs: Vital Signs: Last Vital Signs Temp 97.0 F 09/09/23 07:26 Pulse 69 09/09/23 11:30 Resp 17 09/09/23 11:30 BP 143/61 H 09/09/23 07:26 Pulse Ox 96 09/09/23 07:26 O2 Del Method Room Air 09/09/23 07:26 BMI result Body Mass Index 27.9 Const: Other: Constitutional : Awake, interactive, in mild distress Neck : Normal inspection, Supple Cardiovascular : RRR, no JVP, no lower extremity edema Respiratory : decreased bilateral air entry, no crackles, bilateral expiratory wheezes Gastrointestinal: soft, lax, Normal bowel sounds, Non tender Skin : Warm, Dry Neurological : Alert & oriented x3, No focal deficit DS: Data Data Completed and Pending Completed studies during hospitalization [Text1]: Procedures Assistance with Respiratory Ventilation, Less than 24 Consecutive Hours, Continuous Positive Airway Pressure (10/21/22) Labs on day of discharge: Laboratory Results - last 24 hr 09/08/23 09/08/23 09/09/23 15:54 20:25 07:19 POC Glucose 131 H 150 H 113 09/09/23 11:36 POC Glucose 125 H Imaging Chest x-ray: Radiologist's impression: ITS Impressions Chest X-Ray 09/07/23 08:02 IMPRESSION: 1. No acute cardiopulmonary findings. 2. Stable prominence of the cardiomediastinal silhouette. Discharge Plan Discharge Anticipated Discharge Date/Time: 09/09/23 11:42 Patient Disposition: Home, Self-Care Discharge Diagnosis: ASthma exacerbation Referrals: [facility] [Outside] - 3-5 Days (resume services) Ting Packer MD [Primary Care Provider] - 1 Week Discharge Medications: New prednisone 10 mg tablet See Taper PO DIRECTED Qty: 30 0RF Taper: Prednisone 40 mg daily for 3 Days and 0 Hour 30 mg daily for 3 Days and 0 Hour 20 mg daily for 3 Days and 0 Hour 10 mg daily for 3 Days and 0 Hour Rx Instructions: see taper instructions Continued acetaminophen 650 mg tablet extended release 650 mg PO Q8H PRN (Reason: for pain) Qty: 90 3RF tiotropium bromide [Spiriva with HandiHaler] 18 mcg capsule, w/inhalation device 1 cap inhalation DAILY melatonin 5 mg tablet 5 mg PO BEDTIME PRN (Reason: insomnia) montelukast 10 mg tablet 10 mg PO BEDTIME bisacodyl 5 mg tablet,delayed release (DR/EC) 10 mg PO BEDTIME gabapentin 100 mg capsule 100 mg PO TID sertraline 50 mg tablet 50 mg PO DAILY calcium carbonate-vitamin D3 600 mg-10 mcg (400 unit) tablet 1 tab PO DAILY hydrochlorothiazide 12.5 mg tablet 12.5 mg PO DAILY clopidogrel 75 mg tablet 75 mg PO DAILY amitriptyline 25 mg tablet 25 mg PO BEDTIME folic acid 1 mg tablet 1 mg PO DAILY cyanocobalamin (vitamin B-12) 1,000 mcg tablet 1,000 mcg PO QAM albuterol sulfate 2.5 mg /3 mL (0.083 %) solution for nebulization 2.5 mg inhalation Q4H PRN (Reason: Shortness Of Breath/Wheezing) albuterol sulfate [Ventolin HFA] 90 mcg/actuation Hfa Aerosol Inhaler 2 puff INHALATION Q4H PRN (Reason: Wheezing) amlodipine 5 mg tablet 5 mg PO QAM Discontinued prednisone 20 mg tablet 40 mg PO DAILY Qty: 10 0RF Discharge Orders: Discharge Order (Routine); Ordered 09/09/23 Ordered By: Kade Parker Diet: Advance to usual diet Activity on Discharge: As tolerated Stand Alone Forms: Patient Portal Discharge page Print Language: Armenian Care Plan Goals: Use home nebulizer 4 times daily for the next 3 days then as needed Finish tapering dose Prednisone as prescribed Health Concerns: Read below Plan of Treatment: Read below Assessment: Read below Patient Instructions: Sleep Apnea (GEN), Emphysema (GEN), COPD (Chronic Obstructive Pulmonary Disease) (GEN), Chronic Lung Disease and Infection Prevention (GEN), Energy Conservation Techniques (GEN)
--- NOTE | 2023-09-09 13:42 | MHC.CM.PN ---
Patient medically cleared for dc home w/ resumption of services. Brother to transport.
== END 2023-09-09 13:48 | disposition home or self-care (01) ==
LOC: HO.ED 08:33 → HO.EDOVER 12:36 → HO.S3 14:04
PROVIDERS: Admitting Provider Student in an Organized Health Care Education/Training Program; Emergency Provider Emergency Medicine; PCP Internal Medicine; Visit Provider Student in an Organized Health Care Education/Training Program
DX: J45.901 Unspecified asthma with (acute) exacerbation (principal); J44.1 Chronic obstructive pulmonary disease with (acute) exacerbation; I35.0 Nonrheumatic aortic (valve) stenosis; R05.9 Cough, unspecified; Z03.818 Encounter for observation for suspected exposure to other biological agents ruled out; E11.9 Type 2 diabetes mellitus without complications; I10 Essential (primary) hypertension; G47.33 Obstructive sleep apnea (adult) (pediatric); R09.02 Hypoxemia; F39 Unspecified mood [affective] disorder; Z95.0 Presence of cardiac pacemaker; Z95.2 Presence of prosthetic heart valve; Z79.899 Other long term (current) drug therapy
CPT/HCPCS: 0241U; 36415; 71045; 80048; 80076; 81003; 82803; 82947; 83735; 83880; 84484; 85025; 93005; 93306; 94640; 96365; 96366; 96372; 96375; 96376; 99221; 99285; J1650; J2919; J3010; J3475

== ENCOUNTER → 2023-09-07 12:13 | Outpatient (BNV) | payer MEDICAID, SELFPAY | PROVIDERS: Admitting Provider Student in an Organized Health Care Education/Training Program; Emergency Provider Emergency Medicine; PCP Internal Medicine; Visit Provider Internal Medicine Cardiovascular Disease | DX: J45.901 Unspecified asthma with (acute) exacerbation (principal); I35.0 Nonrheumatic aortic (valve) stenosis | CPT/HCPCS: 93306; 99223 ==

== ENCOUNTER → 2023-09-07 12:13 | Outpatient (BNV) | payer MEDICAID, SELFPAY | PROVIDERS: Admitting Provider Student in an Organized Health Care Education/Training Program; Emergency Provider Emergency Medicine; PCP Internal Medicine; Visit Provider Student in an Organized Health Care Education/Training Program | DX: J45.901 Unspecified asthma with (acute) exacerbation (principal); I35.0 Nonrheumatic aortic (valve) stenosis | CPT/HCPCS: 99222; 99232; 99238 ==

== ENCOUNTER 2023-10-18 05:55 | Inpatient (IN) | payer MEDICAID, SELFPAY ==
[2023-10-18] VITALS (11 sets, daily range): BP systolic 124–150; BP diastolic 69–100; PULSE 60–69; RESP 16–36; TEMP 36.6; O2SAT 96–100; BMI 27.3
--- NOTE | 2023-10-18 | ECG_ITS ---
Test Reason : REPEAT Blood Pressure : / mmHG Vent. Rate : 061 BPM Atrial Rate : 061 BPM P-R Int : 424 ms QRS Dur : 154 ms QT Int : 578 ms P-R-T Axes : 046 -76 107 degrees QTc Int : 581 ms Ventricular-paced rhythm Abnormal ECG When compared with ECG of 18-OCT-2023 06:02, Premature ventricular complexes are no longer Present Referred By: Brooks Avendano Electronically Signed By:MATT GRANDE
--- NOTE | 2023-10-18 | ECG_ITS ---
Test Reason : SOB Blood Pressure : / mmHG Vent. Rate : 075 BPM Atrial Rate : 057 BPM P-R Int : 000 ms QRS Dur : 146 ms QT Int : 466 ms P-R-T Axes : 000 -78 086 degrees QTc Int : 520 ms Poor data quality, interpretation may be adversely affected Ventricular-paced rhythm with premature ventricular or aberrantly conducted complexes Left axis deviation Abnormal ECG When compared with ECG of 07-SEP-2023 08:22, Premature ventricular complexes are now Present Referred By: Triston Álvarez Electronically Signed By:MATT GRANDE
--- NOTE | ~2023-10-18 | XR_ITS ---
EXAMINATION: XR CHEST CLINICAL INFORMATION: Shortness of breath COMPARISON: Chest x-ray on 09/07/2023 TECHNIQUE: Frontal view of the chest was obtained. FINDINGS: The cardiac silhouette is normal. There is mild diffuse bronchial wall thickening. There are no areas of consolidation. There are no pleural effusions or pneumothoraces. There is a right she has signal lead cardiac device. XR/XR chest 1V IMPRESSION: Bronchial wall thickening may be infectious and/or inflammatory in etiology. Electronically signed by: Kami Sinha MD 10/18/2023 06:24 AM EDT
[2023-10-18] MEDS: Albuterol Sulfate 7.5 MG, Albuterol/Iprat 2.5/0.5MG 3 ML 3 ML INHALE (06:21)
[2023-10-18] MEDS: Magnesium Sulfate/H2O 2 GM/50 ML PIGGYBACK IV (06:31)
[2023-10-18] MEDS: methylPREDNISolone Sod Succ 125 MG/2 ML VIAL IVPUSH (06:49)
[2023-10-18 07:50] LABS: Basophils Absolute Auto 0.1 X10*3/uL (0.0-0.2); Basophils Percent Auto 0.6 % (0-2); Eosinophils Absolute Auto 0.4 X10*3/uL (0.0-0.4); Eosinophils Percent Auto 4.2 % (0-4); Hematocrit 44.1 % (37.0-47.0); Hemoglobin 14.7 g/dl (12.0-16.0); Imm Gran Abs Auto 0.03 X10*3/uL (0.00-0.03); Imm Gran Pct Auto 0.3 % (0.0-0.4); Lymphocytes Absolute Auto 1.5 X10*3/uL (1.2-4.9); Lymphocytes Percent Auto 13.8 % (20-40); Mean Corpuscular HGB Conc 33.3 g/dl (31.0-35.0); Mean Corpuscular Hemoglobin 29.5 pg (27.0-33.0); Mean Corpuscular Volume 88.4 fL (80.0-98.0); Mean Platelet Volume 9.4 fL (9.4-12.3); Monocytes Absolute Auto 0.7 X10*3/uL (0.1-1.2); Monocytes Percent Auto 6.3 % (2-11); Neutrophils Absolute Auto 7.9 x10*3/uL (2.0-8.3); Neutrophils Percent Auto 74.8 % (45-73); Platelet Count 313 X10*3/uL (160-400); Red Blood Count 4.99 X10*6/uL (4.20-5.50); Red Cell Distribution Width 13.8 % (11.0-16.0); White Blood Count 10.6 X10*3/uL (4.8-10.8)
--- NOTE | 2023-10-18 07:53 | ED_ITS ---
HPI - SOB/Dyspnea General Chief Complaint: Dyspnea Stated Complaint: asthma copd Time Seen by Provider: 10/18/23 05:59 Source: patient and EMS Mode of arrival: EMS Limitations: language barrier History of Present Illness ED Provider: Dr. Álvarez HPI Narrative: Patient with shortness of breath that go much worse this morning. She denies fever, she has a history of asthma. MD elicited complaint: shortness of breath and asthma attack Related Data Home Medications ?Medication ?Instructions ?Recorded ?Confirmed amitriptyline 25 mg tablet 25 mg PO BEDTIME 07/03/22 09/07/23 bisacodyl 5 mg tablet,delayed 10 mg PO BEDTIME 07/03/22 09/07/23 release calcium carbonate 600 mg-vitamin 1 tab PO DAILY 07/03/22 09/07/23 D3 10 mcg (400 unit) tablet clopidogrel 75 mg tablet 75 mg PO DAILY 07/03/22 09/07/23 cyanocobalamin (vitamin B-12) 1,000 mcg PO QAM 07/03/22 09/07/23 1,000 mcg tablet folic acid 1 mg tablet 1 mg PO DAILY 07/03/22 09/07/23 gabapentin 100 mg capsule 100 mg PO TID 07/03/22 09/07/23 hydrochlorothiazide 12.5 mg tablet 12.5 mg PO DAILY 07/03/22 09/07/23 montelukast 10 mg tablet 10 mg PO BEDTIME 07/03/22 09/07/23 sertraline 50 mg tablet 50 mg PO DAILY 07/03/22 09/07/23 melatonin 5 mg tablet 5 mg PO BEDTIME PRN insomnia 03/14/23 09/07/23 tiotropium bromide 18 mcg capsule 1 cap inhalation DAILY 03/14/23 09/07/23 with inhalation device (Spiriva with HandiHaler) albuterol sulfate 2.5 mg/3 mL 2.5 mg inhalation Q4H PRN 05/21/23 09/07/23 (0.083 %) solution for nebulization Shortness Of Breath/Wheezing albuterol sulfate 90 mcg/actuation 2 puff inhalation Q4H PRN Wheezing 05/21/23 09/07/23 aerosol inhaler (Ventolin HFA) amlodipine 5 mg tablet 5 mg PO QAM 08/03/23 09/07/23 Previous Rx's ?Medication ?Instructions ?Recorded acetaminophen 650 mg 650 mg PO Q8H PRN for pain #90 tabs 01/04/23 tablet,extended release prednisone 10 mg tablet See Taper PO DIRECTED #30 tabs 09/09/23 Allergies Allergy/AdvReac Type Severity Reaction Status Date / Time latex [LATEX] Allergy Severe DIFFICULTY Verified 10/18/23 06:21 BREATHING aspirin [Aspirin] Allergy Intermediate ITCHING, Verified 10/18/23 06:21 itchiness ciprofloxacin [From CIPRO] Allergy Intermediate DIAPHORESIS Verified 10/18/23 06:21 /PURITIS Penicillins [PENICILLINS] Allergy Unknown UNKNOWN Verified 10/18/23 06:21 HEMALATHA Inhibitors AdvReac Intermediate COUGH Verified 10/18/23 06:21 [HEMALATHA INHIBITORS] Review of Systems 2 Review of Systems: Yes all other systems are reviewed and are negative Neurologic: Denies Sensory deficit (Neuro) PMFSH Past Medical History Medical History Severe aortic stenosis COPD (chronic obstructive pulmonary disease) Pacemaker Asthma with exacerbation Smoking Restrictive airway disease MARY (obstructive sleep apnea) MARY on CPAP Reactive airways dysfunction syndrome Rheumatoid arthritis Fibromyalgia GERD (gastroesophageal reflux disease) MARY (obstructive sleep apnea) Aortic valve endocarditis COPD (chronic obstructive pulmonary disease) COPD exacerbation Overactive bladder Bronchitis Allergic rhinitis COPD (chronic obstructive pulmonary disease) Asthma Hx of cardiac pacemaker Hx of migraines Hx of coronary artery disease History of urinary incontinence Hx of essential hypertension History of depression Hx of drug abuse Hx of hyperlipidemia Hx of allergic rhinitis History of enuresis Hx of osteoarthritis Hx of pilonidal cyst Family history of GERD History of arthritis Hx of diabetes mellitus Surgical History History of surgical removal of pilonidal cyst Hx of bilateral cataract extraction Hx of colonoscopy History of cystoscopy History of hysterectomy Hx of aortic valve replacement Hx laparoscopic cholecystectomy History of epidermal inclusion cyst excision Social History Social History Household Members: Family Household Members Other:: son Housing: Apartment Do you presently have visiting nurse or other home services: Yes ([employer] everyday) Alcohol intake: former Comment: refusing alarms Patient Tobacco Use Status: Former Tobacco user Tobacco use type: Cigarette Cigarettes Per Day: 3 e-Cigarette/Vaping Use: Never Used Second Hand Smoke Exposure: No Substance Use Type: Former Substance User Advance Directives: Yes Advance Directives on File: Yes Advance Directives Date on File: 11/08/21 Do you have a plan to hurt others: No Plan service: No Current occupational status: unemployed and disabled Physical Exam 2 Vital Signs: Vital Signs: Last Vital Signs Pulse 61 10/18/23 06:18 Resp 24 H 10/18/23 06:18 Pulse Ox 100 10/18/23 06:18 O2 Del Method BiPAP 10/18/23 06:18 BMI result Body Mass Index 27.3 Const: Other: female appearing older than stated age acute short of breath Nutritional Appearance: average body habitus Orientation/consciousness: oriented to person and patient oriented x3 Limitations: no limitations HEENT: Head: Yes normal to inspection Ears: external ears normal General nose exam: Normal external nose present Mouth: Normal oral and palatal mucosa present and oropharynx normal Throat: Yes posterior oropharynx normal Eyes: General: appearance normal, both eyes and all related structures Neck: Other: supple Neck: Yes normal visual inspection Chest: Chest palpation & inspection: normal inspection of the chest Resp: Other: diffuse wheezing with retractions Cardio: Jugular venous distension: no JVD Rate: regular rate Rhythm: r egular rhythm Heart sounds: S1 normal heart sound present and S2 normal heart sound present GI: Inspection: Yes normal to inspection Palpation (GI): Soft to palpation, nontender and No hepatosplenomegaly present Auscultation: normal bowel sounds : General: Yes no CVA tenderness Back/Spine/Pelvis: Back: no CVA tenderness Skin: General skin exam: no rashes or lesions noted Neuro: General: oriented to person and patient oriented x3 Cranial nerves: Yes CN's II-XII intact bilaterally Motor exam (neuro): 5/5 motor strength present throughout Sensory Exam: No Sensory deficit (Neuro) Extrem: General: Yes normal to inspection Psych: Appearance: grossly normal Course Reevaluation(s) Reevaluation #1: patient with continued wheezing will sign out to Dr. Davis Time: 07:57 Reevaluation #2: I spent 40 minutes of critical care, with interventions, assessments, speaking to patient, consultants, and family. Time: 07:57 Reevaluation #3: There is no infection evident in this patient Time: 08:00 Additional Reevaluation(s): Physician observation started at 8:15 indication is that patient needs time to see if respiratory failure improves at this time patient is still doing better on bipap. Medications Administered Discontinued Medications Generic Name Dose Route Start Last Admin Trade Name Fredaniel PRN Reason Stop Dose Admin Albuterol Sulfate 7.5 mg/ 10 mg 10/18/23 06:00 10/18/23 06:20 Albuterol Sulfate 2.5 mg INHALE 10/18/23 06:01 Not Given ONCE ONE Albuterol Sulfate 7.5 mg/ 0 mg 10/18/23 06:20 10/18/23 06:21 Albuterol/Ipratropium 3 ml INHALE 10/18/23 06:21 1 each ONCE ONE Administration Magnesium Sulfate 2 gm in 50 mls @ 25 mls/hr 10/18/23 06:00 10/18/23 06:31 Magnesium Sulfate/H2o IV 10/18/23 07:59 25 mls/hr ONCE ONE Administration Methylprednisolone Sodium Succinate 125 mg 10/18/23 06:00 10/18/23 06:48 Methylprednisolone Sod Succ 125 Mg/2 Ml Vial IVPUSH 10/18/23 06:01 Not Given ONCE ONE Methylprednisolone Sodium Succinate 125 mg 10/18/23 06:45 10/18/23 06:49 Methylprednisolone Sod Succ 125 Mg/2 Ml Vial IVPUSH 10/18/23 06:46 125 mg ONCE ONE Administration Medical Decision Making Differential Diagnosis Differential Diagnoses: The differential diagnosis associated with the presentation includes (asthma exacerbation, pneumonia, respiratory failure) Admission/Observation Consideration of admission/observation: Escalation of care including admission/observation considered (upon arrival patient was considered for admission) Lab Data 10/18/23 07:45 10/18/23 07:45 Labs: Lab Results 10/18/23 Range/Units 07:45 WBC 10.6 (4.8-10.8) X10*3/uL RBC 4.99 (4.20-5.50) X10*6/uL Hgb 14.7 (12.0-16.0) g/dl Hct 44.1 (37.0-47.0) % MCV 88.4 (80.0-98.0) fL MCH 29.5 (27.0-33.0) pg MCHC 33.3 (31.0-35.0) g/dl RDW 13.8 (11.0-16.0) % Plt Count 313 (160-400) X10*3/uL MPV 9.4 (9.4-12.3) fL Immature Gran % (Auto) 0.3 (0.0-0.4) % Neut % (Auto) 74.8 H (45-73) % Lymph % (Auto) 13.8 L (20-40) % [place] % (Auto) 6.3 (2-11) % Eos % (Auto) 4.2 H (0-4) % Baso % (Auto) 0.6 (0-2) % Lymph # (Auto) 1.5 (1.2-4.9) X10*3/uL [place] # (Auto) 0.7 (0.1-1.2) X10*3/uL Eos # (Auto) 0.4 (0.0-0.4) X10*3/uL Baso # (Auto) 0.1 (0.0-0.2) X10*3/uL Abs Immat Gran (auto) 0.03 (0.00-0.03) X10*3/uL Absolute Neuts (auto) 7.9 (2.0-8.3) x10*3/uL Absolute Nucleated RBC 0.000 (0.0-0.012) X10*3/uL Nucleated RBC % (auto) 0.0 (0.0-0.2) /100WBC Sodium 143 (135-145) mmol/L Potassium 3.3 (3.3-5.1) mmol/L Chloride 106 (96-108) mmol/L Carbon Dioxide 27 (22-29) mmol/L Anion Gap 13 (12-20) BUN 15 (9-16) mg/dL Creatinine 0.75 (0.5-1.4) mg/dL Estim Creat Clear Calc 71.8 Estimated GFR > 60 Random Glucose 128 H (60-115) mg/dL Calcium 9.5 (8.4-10.2) mg/dL Independent Interpretation I performed an independent interpretation of an: Plain X-Ray (cxr: no infiltrate) Independent Historian Clinical information obtained from an independent historian. History obtained from or confirmed by: EMS Prescription Management I considered prescription management with: Antibiotic (no infiltrate on CXR) Chronic Conditions Patient?s care impacted by: Other (asthma) Social Determinants Patient?s care significantly limited by Social Determinants of Health including: Low income Discharge Plan Discharge Clinical Impression: Asthma attack Patient Disposition: Still a Patient Prescriptions: No Action acetaminophen 650 mg tablet extended release 650 mg PO Q8H PRN (Reason: for pain) Qty: 90 3RF tiotropium bromide [Spiriva with HandiHaler] 18 mcg capsule, w/inhalation device 1 cap inhalation DAILY melatonin 5 mg tablet 5 mg PO BEDTIME PRN (Reason: insomnia) montelukast 10 mg tablet 10 mg PO BEDTIME bisacodyl 5 mg tablet,delayed release (DR/EC) 10 mg PO BEDTIME gabapentin 100 mg capsule 100 mg PO TID sertraline 50 mg tablet 50 mg PO DAILY calcium carbonate-vitamin D3 600 mg-10 mcg (400 unit) tablet 1 tab PO DAILY hydrochlorothiazide 12.5 mg tablet 12.5 mg PO DAILY clopidogrel 75 mg tablet 75 mg PO DAILY amitriptyline 25 mg tablet 25 mg PO BEDTIME folic acid 1 mg tablet 1 mg PO DAILY cyanocobalamin (vitamin B-12) 1,000 mcg tablet 1,000 mcg PO QAM albuterol sulfate 2.5 mg /3 mL (0.083 %) solution for nebulization 2.5 mg inhalation Q4H PRN (Reason: Shortness Of Breath/Wheezing) albuterol sulfate [Ventolin HFA] 90 mcg/actuation Hfa Aerosol Inhaler 2 puff INHALATION Q4H PRN (Reason: Wheezing) amlodipine 5 mg tablet 5 mg PO QAM prednisone 10 mg tablet See Taper PO DIRECTED Qty: 30 0RF Taper: Prednisone 40 mg daily for 3 Days and 0 Hour 30 mg daily for 3 Days and 0 Hour 20 mg daily for 3 Days and 0 Hour 10 mg daily for 3 Days and 0 Hour Rx Instructions: see taper instructions Print Language: Icelandic
[2023-10-18 08:06] LABS: Anion Gap 13 (12-20); Blood Urea Nitrogen 15 mg/dL (9-16); Calcium 9.5 mg/dL (8.4-10.2); Carbon Dioxide 27 mmol/L (22-29); Chloride 106 mmol/L (96-108); Creatinine Clr Calc Pharmacy 71.8; Estimated Glomerular Filt Rate > 60; Glucose Random 128 mg/dL (60-115); Potassium 3.3 mmol/L (3.3-5.1); Sodium 143 mmol/L (135-145)
[2023-10-18 08:43] LABS: VBG Base Excess 3.8 mmol/L; VBG HCO3 29 mmol/L (22-26); VBG pCO2 45 mmHg; VBG pH 7.41 (7.32-7.43); VBG pO2 83 mmHg
--- NOTE | 2023-10-18 08:47 | PC.NURSE ---
attempting to wean patient off of bipap and onto high flow at this time, respiratory at bedside.
[2023-10-18 09:26] LABS: Venous Blood Gas Refer to POC result
[2023-10-18 12:05] LABS: Influenza A PCR NEGATIVE (Negative); Influenza B PCR NEGATIVE (Negative); Resp Syncy Virus RNA Qual PCR NEGATIVE (Negative); SARS COV2 PCR INHOUSE NEGATIVE (Negative)
--- NOTE | 2023-10-18 12:07 | PM.IMHP ---
History of Present Illness Date of Service: 10/18/23 Attending physician on admission: Adam Martin Chief Complaint: SOB Pt is a 62-year-old Guamanian-speaking female with a PMH significant for?HTN, COPD\Asthma not on home O2, PPM for CHB, severe , [id number]-phpvvyhxr type 2 diabetes, infective endocarditis s/p TAVR 2004, MARY not using CPAP, and history of IVDU who presents to the ED with?increasing SOB and difficulty breathing since last night. Symptoms worsened this morning when patient awoke which prompted call for an ambulance. When EMS arrived patient was satting at 98% on RA, however respiratory rate was up to 30 and patient appeared in acute respiratory distress. Was placed on 15 L non-rebreather with albuterol updraft. On arrival to the ED patient was placed on rescue BiPAP which was eventually weaned to CPAP, high-flow, and then 4L NC. Has been experiencing increased cough only occasionally productive. Pt also complains of mild chest tightness/discomfort associated with deep breathing and cough. No fever or chills. Denies nausea, vomiting, abdominal pain. No diarrhea. Reports she is scheduled to have her pacemaker replaced at [facility] sometime within the next 1-2 weeks. Although previous notes indicate patient is a current active smoker, she reports quit smoking over 5 years ago. In the ED pt was tachypneic up to 36 and hypertensive up to 149/76. Patient was initially in respiratory distress and placed on rescue BiPAP in the ED and eventually transitioned to CPAP and then high-flow. Labs were grossly and at baseline for patient. No leukocytosis. Stable H&H. No significant electrolyte abnormalities. Renal function WNL. CXR showed bronchial wall thickening that may be infectious and/or inflammatory in etiology. EKG demonstrated atrial sensed ventricularly paced rhythm with prolonged AV conduction. And no evidence of significant ST elevations or depressions. Pt was treated with DuoNebs, Mag sulfate, and Solu-Medrol. Pt will be admitted to the hospital for treatment and further evaluation of acute respiratory distress in the setting of asthma/COPD overlap exacerbation. Review of Systems Review of Systems: SOB, BURNETT Cough Mild chest tightness associated with breathing and cough Denies fever, chills, nausea, vomiting No abd pain PMFSH Medical History Severe aortic stenosis COPD (chronic obstructive pulmonary disease) Pacemaker Asthma with exacerbation Smoking Restrictive airway disease MARY (obstructive sleep apnea) MARY on CPAP Reactive airways dysfunction syndrome Rheumatoid arthritis Fibromyalgia GERD (gastroesophageal reflux disease) MARY (obstructive sleep apnea) Aortic valve endocarditis COPD (chronic obstructive pulmonary disease) COPD exacerbation Overactive bladder Bronchitis Allergic rhinitis COPD (chronic obstructive pulmonary disease) Asthma Hx of cardiac pacemaker Hx of migraines Hx of coronary artery disease History of urinary incontinence Hx of essential hypertension History of depression Hx of drug abuse Hx of hyperlipidemia Hx of allergic rhinitis History of enuresis Hx of osteoarthritis Hx of pilonidal cyst Family history of GERD History of arthritis Hx of diabetes mellitus Surgical History History of surgical removal of pilonidal cyst Hx of bilateral cataract extraction Hx of colonoscopy History of cystoscopy History of hysterectomy Hx of aortic valve replacement Hx laparoscopic cholecystectomy History of epidermal inclusion cyst excision Social History Household Members: Family Household Members Other:: son Housing: Apartment Do you presently have visiting nurse or other home services: Yes ([employer] everyday) Alcohol intake: former Comment: refusing alarms Patient Tobacco Use Status: Former Tobacco user Tobacco use type: Cigarette Cigarettes Per Day: 3 e-Cigarette/Vaping Use: Never Used Second Hand Smoke Exposure: No Substance Use Type: Former Substance User Advance Directives: Yes Advance Directives on File: Yes Advance Directives Date on File: 11/08/21 Do you have a plan to hurt others: No Plan service: No Current occupational status: unemployed and disabled Meds Allergies Allergy/AdvReac Type Severity Reaction Status Date / Time latex [LATEX] Allergy Severe DIFFICULTY Verified 10/18/23 06:21 BREATHING aspirin [Aspirin] Allergy Intermediate ITCHING, Verified 10/18/23 06:21 itchiness ciprofloxacin [From CIPRO] Allergy Intermediate DIAPHORESIS Verified 10/18/23 06:21 /PURITIS Penicillins [PENICILLINS] Allergy Unknown UNKNOWN Verified 10/18/23 06:21 HEMALATHA Inhibitors AdvReac Intermediate COUGH Verified 10/18/23 06:21 [HEMALATHA INHIBITORS] Home Medications ?Medication ?Instructions ?Recorded ?Confirmed ?Last Taken ?Type amitriptyline 25 mg tablet 25 mg PO BEDTIME 07/03/22 09/07/23 09/06/23 History bisacodyl 5 mg tablet,delayed 10 mg PO BEDTIME 07/03/22 09/07/23 09/06/23 History release calcium carbonate 600 mg-vitamin 1 tab PO DAILY 07/03/22 09/07/23 09/06/23 History D3 10 mcg (400 unit) tablet clopidogrel 75 mg tablet 75 mg PO DAILY 07/03/22 09/07/23 09/06/23 History cyanocobalamin (vitamin B-12) 1,000 mcg PO QAM 07/03/22 09/07/23 09/06/23 History 1,000 mcg tablet folic acid 1 mg tablet 1 mg PO DAILY 07/03/22 09/07/23 09/06/23 History gabapentin 100 mg capsule 100 mg PO TID 07/03/22 09/07/23 09/06/23 History hydrochlorothiazide 12.5 mg tablet 12.5 mg PO DAILY 07/03/22 09/07/23 09/06/23 History montelukast 10 mg tablet 10 mg PO BEDTIME 07/03/22 09/07/23 09/06/23 History sertraline 50 mg tablet 50 mg PO DAILY 07/03/22 09/07/23 09/06/23 History melatonin 5 mg tablet 5 mg PO BEDTIME PRN insomnia 03/14/23 09/07/23 09/06/23 History tiotropium bromide 18 mcg capsule 1 cap inhalation DAILY 03/14/23 09/07/23 09/06/23 History with inhalation device (Spiriva with HandiHaler) albuterol sulfate 2.5 mg/3 mL 2.5 mg inhalation Q4H PRN 05/21/23 09/07/23 09/06/23 History (0.083 %) solution for nebulization Shortness Of Breath/Wheezing albuterol sulfate 90 mcg/actuation 2 puff inhalation Q4H PRN Wheezing 05/21/23 09/07/23 09/06/23 History aerosol inhaler (Ventolin HFA) amlodipine 5 mg tablet 5 mg PO QAM 08/03/23 09/07/23 09/06/23 History fluticasone 500 mcg-salmeterol 50 1 ea inhalation BID 10/18/23 Unknown History mcg/dose blistr powdr for inhalation (Advair Diskus) Physical Exam Vital Signs and Narrative: Vital Signs: Last Vital Signs Temp 97.8 F 10/18/23 10:42 Pulse 63 10/18/23 10:42 Resp 22 H 10/18/23 10:42 BP 149/76 H 10/18/23 10:42 Pulse Ox 98 10/18/23 10:42 O2 Del Method High Flow Nasal C annula 10/18/23 10:42 O2 Flow Rate 45 10/18/23 10:42 FiO2 24 10/18/23 08:23 BMI result Body Mass Index 27.3 Constitutional: Alert, in no acute distress. Mental Status: Oriented to person, place and time. Eyes: Pupils are equal, round, and reactive to light. Ear, Nose, and Throat: Oropharynx clear, mucous membranes moist. Ears and nose without deformities. Trachea midline. Respiratory: Diffuse bilateral inspiratory and expiraotyr wheezing. Not in acute respiratory distress. Capable of speaking in complete sentences. Cardiovascular: S1, S2 regular. 3/6 murmur heard at right sternal border. Gastrointestinal: Abdomen soft, non-tender, non-distended. Normal bowel sounds. Neurologic: Cranial nerves II-XII are grossly intact bilaterally. No focal neurological deficits. Moves all extremities spontaneously. Skin: Warm, dry. Extremities: No edema. Psychiatric: Normal mood and affect. Results Labs 10/18/23 07:45 10/18/23 07:45 Labs: Laboratory Results - last 24 hr 10/18/23 10/18/23 10/18/23 07:45 08:34 11:01 MCV 88.4 MCH 29.5 MCHC 33.3 RDW 13.8 Plt Count 313 MPV 9.4 Immature Gran % (Auto) 0.3 Neut % (Auto) 74.8 H Lymph % (Auto) 13.8 L [place] % (Auto) 6.3 Eos % (Auto) 4.2 H Baso % (Auto) 0.6 Lymph # (Auto) 1.5 [place] # (Auto) 0.7 Eos # (Auto) 0.4 Baso # (Auto) 0.1 Abs Immat Gran (auto) 0.03 Absolute Neuts (auto) 7.9 Absolute Nucleated RBC 0.000 Nucleated RBC % (auto) 0.0 VBG pH 7.41 VBG pCO2 45 VBG pO2 83 VBG HCO3 29 H VBG O2 Saturation 97.0 VBG Base Excess 3.8 Anion Gap 13 Estim Creat Clear Calc 71.8 Estimated GFR > 60 Random Glucose 128 H Calcium 9.5 Influenza Type A (PCR) NEGATIVE Influenza Type B (PCR) NEGATIVE RSV RNA Qual (PCR) NEGATIVE SARS-CoV-2 RNA (RT-PCR) NEGATIVE Imaging Radiologist's Impressions: Impressions Chest X-Ray 10/18/23 06:01 IMPRESSION: Bronchial wall thickening may be infectious and/or inflammatory in etiology. Electronically signed by: Kami Sinha MD 10/18/2023 06:24 AM EDT RP Assessment and Plan (1) Acute exacerbation of COPD with asthma: Status: Resolved Plan Pt is a 62-year-old Guamanian-speaking female with a PMH significant for?HTN, COPD\Asthma not on home O2, PPM for CHB, severe , [id number] type 2 diabetes, infective endocarditis s/p TAVR 2004, MARY not using CPAP, and history of IVDU who presents to the ED with?increasing SOB and difficulty breathing since last night. Pt will be admitted to the hospital for treatment and further evaluation of acute respiratory distress in the setting of asthma/COPD overlap exacerbation. Acute respiratory distress in the setting of asthma/COPD overlap exacerbation No hypoxia, but patient significant tachypnea up to 35 and respiratory distress Initially placed on 15 L non-rebreather by EMS, then placed on BiPAP in ED which was then transitioned to CPAP, high-flow, and then 4L NC Patient given Solu-Medrol, Mag sulfate, and DuoNebs in the ED Will treat with DuoNebs, Solu-Medrol 40 mg b.i.d., guaifenesin We will give azithromycin for pleiotropic effects No indication of sepsis: Tachypnea, but no tachycardia, leukocytosis, or fever Wean supplemental O2 as tolerated Monitor respiratory status HTN Continue hydrochlorothiazide, amlodipine Hx of complete heart block S/p pacemaker Believes will be replaced at [facility] within the next 1-2 weeks? TAVR 2004 w/ severe Continue Plavix Reports has cardiac procedure at [facility] in next 1-2 weeks, unclear if for pacemaker or MARY Noncompliant with CPAP at home Mood disorder Continue amitriptyline, sertraline Full Code Attending:?Dr. Roland DVT Prophylaxis: Lovenox Pt will require a hospitalization of at least two nights for treatment of acute respiratory distress in the setting of asthma/COPD exacerbation. Given that patient required rescue BiPAP, CPAP, and high-flow in the ED, patient require full admission into the hospital for treatment with IV steroids, breathing treatments, and close monitoring of respiratory status. Quality Stroke Does the patient have a stroke diagnosis?: No VTE Prior VTE?: No VTE Risk Level:: Medical - moderate - high VTE Device Contraindication: Treatment Not Indicated VTE Drug Contraindication: N/A - Med Ordered
[2023-10-18] MEDS: Albuterol Sulfate 2.5 MG, Albuterol Sulfate (0.083%) 2.5 MG 5 MG INHALE (12:11)
--- NOTE | 2023-10-18 14:00 | MHC.EDTECH ---
patient ask for tooth brush and tooth paste
--- NOTE | 2023-10-18 15:11 | PHA.MEDREC ---
Addendum entered by Linda Cope [facility] 10/18/23 15:23: Reviewed by [facility] Addendum entered by Anita Perkins 10/18/23 15:16: Patient states she took her medication yesterday. Original Note: Pharmacy Consult ? Medication Reconciliation Pharmacy has completed the medication reconciliation. Spoke to patient through [employer] service ([place] patient was a poor historian. patient said I don't know what I take. I fill my medication at [facility] pharmacy, what ever I fill there I take. So, called [facility] and they sent a list. Utilized list from pharmacy and claims to confirm med list.
[2023-10-18] MEDS: Azithromycin 500 MG TABLET PO (15:25)
[2023-10-18] MEDS: Enoxaparin Sodium 40 MG/0.4 ML SYRINGE SUBCUT (15:25)
--- NOTE | 2023-10-18 15:26 | PC.NURSE ---
Pt. medicated per MAR. Denies SOB or any other complaints at this time.
--- NOTE | 2023-10-18 15:40 | PC.NURSE ---
Pt. provided with a sandwich and coffee as requested. No other requests or complaints at this time.
--- NOTE | 2023-10-18 15:50 | MHC.EDTECH ---
patient ask for food brought her a coffee and sandwich
[2023-10-18 16:33] LABS: B Type Natriuretic Peptide 150 pg/mL (<100)
[2023-10-18] MEDS: methylPREDNISolone Sod Succ 40 MG/ML VIAL IVPUSH (18:31)
[2023-10-18] MEDS: Albuterol/Iprat 2.5/0.5MG 3 ML AMPUL.NEB INHALE (19:11)
[2023-10-18] MEDS: Amitriptyline HCl 25 MG TABLET PO (21:03)
[2023-10-18] MEDS: Melatonin 3 MG TABLET 6 MG PO (21:03)
[2023-10-18] MEDS: Acetaminophen 325 MG TABLET 650 MG PO (21:03)
[2023-10-18] MEDS: Gabapentin 100 MG CAPSULE PO (21:03)
[2023-10-18] MEDS: bisacodyL 5 MG TABLET.DR 10 MG PO (21:04)
[2023-10-18] MEDS: Montelukast Sodium 10 MG TABLET PO (22:31)
[2023-10-19 01:43] VITALS: BP 130/68; PULSE 61; RESP 16; TEMP 36.6; O2SAT 95
[2023-10-19 02:47] VITALS: BP 140/83; PULSE 62; RESP 18; TEMP 36.6; O2SAT 96
[2023-10-19 05:51] VITALS: BP 127/75; PULSE 61; RESP 18; TEMP 36.4; O2SAT 95
[2023-10-19 08:00] VITALS: BP 111/63; PULSE 60; RESP 15; TEMP 36.8; O2SAT 100
[2023-10-19 08:03] VITALS: PULSE 61; RESP 18; O2SAT 94
[2023-10-19] MEDS: Albuterol/Iprat 2.5/0.5MG 3 ML AMPUL.NEB INHALE (08:03)
[2023-10-19 08:04] LABS: Glucose, Whole Blood 121 mg/dL (60-115)
[2023-10-19] MEDS: Clopidogrel Bisulfate 75 MG TABLET PO (08:25)
[2023-10-19] MEDS: amLODIPine Besylate 5 MG TABLET PO (08:25)
[2023-10-19] MEDS: Folic Acid 1 MG TABLET PO (08:25)
[2023-10-19] MEDS: 0.9 % Sodium Chloride Flush 3 ML SYRINGE IVFLUSH (08:25)
[2023-10-19] MEDS: Cyanocobalamin (Vitamin B-12) 1,000 MCG TABLET 1000 MCG PO (08:25)
[2023-10-19] MEDS: Gabapentin 100 MG CAPSULE PO (08:25)
[2023-10-19] MEDS: methylPREDNISolone Sod Succ 40 MG/ML VIAL IVPUSH (08:25)
[2023-10-19] MEDS: hydroCHLOROthiazide 12.5 MG TABLET PO (08:25)
[2023-10-19] MEDS: Sertraline HCL 50 MG TABLET PO (08:25)
--- NOTE | 2023-10-19 11:09 | P.DS_ITS ---
DS: Providers Provider Date of Service: 10/19/23 Date of admission: 10/18/23 14:25 Date of discharge: 10/19/23 Primary care physician: [facility] DS: Diagnosis Discharge Diagnosis (1) Acute exacerbation of COPD with asthma: Status: Resolved DS: Summary Hospital Course Hospital Course: History presenting illness: Date of Service: 10/18/23 Attending physician on admission: Adam Martin Chief Complaint: SOB Pt is a 62-year-old Bahraini-speaking female with a PMH significant for?HTN, COPD\Asthma not on home O2, PPM for CHB, severe , aqb-cmafedp-knfcakwhl type 2 diabetes, infective endocarditis s/p TAVR 2004, MARY not using CPAP, and history of IVDU who presents to the ED with?increasing SOB and difficulty breathing since last night. Symptoms worsened this morning when patient awoke which promp doug call for an ambulance. When EMS arrived patient was satting at 98% on RA, however respiratory rate was up to 30 and patient appeared in acute respiratory distress. Was placed on 15 L non-rebreather with albuterol updraft. On arrival to the ED patient was placed on rescue BiPAP which was eventually weaned to CPAP, high-flow, and then 4L NC. Has been experiencing increased cough only occasionally productive. Pt also complains of mild chest tightness/discomfort associated with deep breathing and cough. No fever or chills. Denies nausea, vomiting, abdominal pain. No diarrhea. Reports she is scheduled to have her pacemaker [place] [facility] sometime within the next 1-2 weeks. Although previous notes indicate patient is a current active smoker, she reports quit smoking over 5 years ago. In the ED pt was tachypneic up to 36 and hypertensive up to 149/76. Patient was initially in respiratory distress and placed on rescue BiPAP in the ED and eventually transitioned to CPAP and then high-flow. Labs were grossly and at baseline for patient. No leukocytosis. Stable H&H. No significant electrolyte abnormalities. Renal function WNL. CXR showed bronchial wall thickening that may be infectious and/or inflammatory in etiology. EKG demonstrated atrial sensed ventricularly paced rhythm with prolonged AV conduction. And no evidence of significant ST elevations or depressions. Pt was treated with DuoNebs, Mag sulfate, and Solu-Medrol. Pt will be admitted to the hospital for treatment and further evaluation of acute respiratory distress in the setting of asthma/COPD overlap exacerbation. Hospital course: 62-year-old Bahraini-speaking female with a PMH significant for?HTN, COPD\Asthma not on home O2, PPM for CHB, severe , cjh-jtodycc-ejtpkbmnx type 2 diabetes, infective endocarditis s/p TAVR 2004, MARY not using CPAP, and history of IVDU who presents to the ED with acute onset of shortness of breath, and admitted with a diagnosis of acute respiratory distress in the setting of asthma/COPD overlap exacerbation, no hypoxia noted, patient treated with IV Solu Medrol, scheduled and as needed DuoNeb, cough medication and azithromycin for pleiotropic effect patient responded rapidly to above treatment this morning feeling better denies shortness of breath, feels acute symptoms related to anxiety due to family issues, now eager to be discharged home, since her oxygenation is stable, and all symptoms resolved therefore she is being discharged home with recommendation to use DuoNeb updraft q.i.d. for next few days, prednisone 20 mg daily for 4 more days, azithromycin 1 tablet daily, Recommend complete abstinence from smoking and continue all other home inhalers. In regard to chronic medical issues including hypertension recommend to continue all home medications, patient has an appointment at [facility] next 1-2 weeks for follow-up of complete heart block and TAVR done in 2004 Patient is noncompliant with CPAP with history of obstructive sleep apnea Mood disorder Continue amitriptyline, sertraline, no acute exacerbation noted. Time Attestation Discharge Coordination Time (in mins): 34 Quality: Safe Use of Opioids Does Pt have an Active Cancer Diagnosis on the Problem List?: No Quality: Stroke Does the patient have a stroke diagnosis?: No Physical Exam Vital Signs: Vital Signs: Last Vital Signs Temp 98.3 F 10/19/23 08:00 Pulse 61 10/19/23 08:03 Resp 18 10/19/23 08:03 BP 111/63 10/19/23 08:00 Pulse Ox 100 10/19/23 08:00 O2 Del Method Room Air 10/19/23 08:00 O2 Flow Rate 2 10/18/23 14:00 FiO2 24 10/18/23 08:23 BMI result Body Mass Index 27.3 Const: Other: General awake alert x3 in no acute distress anicteric sclera Neck no JVD. CVS regular rate rhythm, Respiratory lungs clear to auscultation, scattered expiratory wheeze Gastrointestinal abdomen soft, non tender, bowel sounds audible, no guarding , no rigidity. Extremities no edema. Neuro non focal Skin no rash psych appropriate affect DS: Data Data Completed and Pending Completed studies during hospitalization [Text1]: Procedures Assistance with Respiratory Ventilation, Less than 24 Consecutive Hours, Continuous Positive Airway Pressure (10/21/22) Labs on day of discharge: Laboratory Results - last 24 hr 10/18/23 10/18/23 10/18/23 07:45 11:01 16:07 POC Glucose Troponin I High Sens 9.0 B-Natriuretic Peptide Cancelled 150 H Influenza Type A (PCR) NEGATIVE Influenza Type B (PCR) NEGATIVE RSV RNA Qual (PCR) NEGATIVE SARS-CoV-2 RNA (RT-PCR) NEGATIVE 10/19/23 08:00 POC Glucose 121 H Troponin I High Sens B-Natriuretic Peptide Influenza Type A (PCR) Influenza Type B (PCR) RSV RNA Qual (PCR) SARS-CoV-2 RNA (RT-PCR) Discharge Plan Discharge Anticipated Discharge Date/Time: 10/19/23 10:59 Patient Disposition: Home, Self-Care Discharge Diagnosis: Acute respiratory distress in the setting of asthma/COPD overlap exacerbation Referrals: [place] [Primary Care Provider] - 1 Week Discharge Medications: New azithromycin 500 mg Tablet 500 mg PO Q24H Qty: 3 0RF prednisone 20 mg tablet 20 mg PO DAILY Qty: 4 0RF Continued acetaminophen 650 mg tablet extended release 650 mg PO Q8H PRN (Reason: for pain) Qty: 90 3RF tiotropium bromide [Spiriva with HandiHaler] 18 mcg capsule, w/inhalation device 1 cap inhalation DAILY melatonin 5 mg tablet 5 mg PO BEDTIME PRN (Reason: insomnia) montelukast 10 mg tablet 10 mg PO BEDTIME bisacodyl 5 mg tablet,delayed release (DR/EC) 10 mg PO BEDTIME gabapentin 100 mg capsule 100 mg PO TID sertraline 50 mg tablet 50 mg PO DAILY calcium carbonate-vitamin D3 600 mg-10 mcg (400 unit) tablet 1 tab PO DAILY hydrochlorothiazide 12.5 mg tablet 12.5 mg PO DAILY clopidogrel 75 mg tablet 75 mg PO DAILY amitriptyline 25 mg tablet 25 mg PO BEDTIME folic acid 1 mg tablet 1 mg PO DAILY cyanocobalamin (vitamin B-12) 1,000 mcg tablet 1,000 mcg PO DAILY albuterol sulfate 2.5 mg /3 mL (0.083 %) solution for nebulization 2.5 mg inhalation Q4-6H PRN (Reason: Shortness Of Breath/Wheezing) albuterol sulfate [Ventolin HFA] 90 mcg/actuation Hfa Aerosol Inhaler 2 puff INHALATION Q4H PRN (Reason: Wheezing) amlodipine 5 mg tablet 5 mg PO DAILY fluticasone propion-salmeterol [Advair Diskus] 500-50 mcg/dose blister with device 1 ea INHALATION BID Discharge Orders: Discharge Order (Routine); Ordered 10/19/23 Ordered By: Shakir Roland Diet: Advance to usual diet Activity on Discharge: As tolerated Stand Alone Forms: Patient Portal Discharge page Print Language: Bahraini Care Plan Goals: Use DuoNeb 4 times a day for 3 days Take prednisone 20 mg daily with food for 4 days/take azithromycin 1 tablet daily for 3 more days Cough medication as before Health Concerns: Continue all home medications as before Plan of Treatment: Outpatient follow-up with primary care physician call for appointment. Outpatient follow at [facility] as previously planned. Assessment: As above
--- NOTE | 2023-10-19 11:17 | MHC.EDTECH ---
helped pt to bathroom, pt changed into clothes ready for discharge
--- NOTE | 2023-10-19 11:53 | MHC.CM.PN ---
Addendum entered by Elyse Joshua 10/22/23 08:20: Received notification from [facility] that patient is not active with their agency. Original Note: Attempted to meet with patient in regards to discharge planning. Patient not in room. No family present. Discharge order already placed for patient. Received notification from [facility] that patient will need transportation arranged. Discharge address confirmed as [address] [place] [address] in [place]. [facility] shuttle booked. Patient was d/c'd from [facility] on 09/09/23. CM assessment completed using medical record. Patient has special delivery messenger and is active with [facility]. Return referral made to [facility] Continue to [facility] for d/c needs.
--- OUTSIDE RECORDS SUMMARY | 2023-10-21 00:06 | XMS_ITS | Continuity of Care Document ---
Author Organization [facility] Address [address] [place] [id number]- Care Team Providers Care Sr. Payroll Manager Name Role Phone Allyson Packer MD Primary Care Physici an [place] [facility] [place] - 07/06/23 [facility] [address] [place] [address]- Attending Physician: Victorino Segovia MD Admitting Physician: Victorino Segovia MD Referring Physician: Allyson Packer MD Allergies, Adverse Reactions, Alerts Substance Reaction Severity Status ciprofloxacin Active aspirin Active shellfish hives Active Immunizations Given and Recorded Vaccine Date Status Refusal Reason Influenza Inactive (IM) (oldterm) 1 12/05/07 Given Pneumococcal Vaccine (oldterm) 2 09/30/07 Given 1Admin Note: SANOFI PASTEUR 2Result Comment: [id number] Medications Advair Diskus 250 mcg-50 mcg inhalation powder 1 puffs, Inhalation, 2 times a day, # 180 each, 0 Refills, Maintenance, 04/17/13 14:43:15, Powder Start Date: 04/17/13 Status: Ordered amitriptyline 25 mg oral tablet TAKE 1 TABLET BY MOUTH AT BEDTIME Start Date: 03/15/23 Status: Ordered Dulcolax Stool Softener = 100 mg, By Mouth, 2 times a day, 0 Refills, Maintenance, 01/30/17 7:53:34 Start Date: 01/30/17 Status: Ordered folic acid 1 mg oral tablet TAKE 1 TABLET BY MOUTH EVERY MORNING Start Date: 08/31/22 Status: Ordered gabapentin 100 mg oral capsule TAKE 1 CAPSULE BY MOUTH THREE TIMES DAILY IN THE MORNING, EVENING, AND BEDTIME Start Date: 08/31/22 Status: Ordered hydrochlorothiazide 12.5 mg oral tablet TAKE 1 TABLET BY MOUTH EVERY MORNING Start Date: 03/15/23 Status: Ordered Plavix 75 mg oral tablet 75 mg, 1, tablet, By Mouth, Daily, # 90 tablet, Refills 1, Tot. Refills 1, Maintenance, 02/06/23 15:57:00 EST, Route to Pharmacy Electronically, [facility], 150, cm, 08/31/22 16:04:00 EDT, Height Start Date: 02/06/23 Stop Date: 08/05/23 Status: Ordered Proventil HFA 90 mcg/inh inhalation aerosol with adapter 1 puffs, Inhalation, 4 times a day, PRN for wheezing, # 25 Gm, 0 Refills, Maintenance, 04/17/13 14:44:10, Aerosol Start Date: 04/17/13 Status: Ordered sertraline 50 mg oral tablet [...] Maintenance, Capsule Start Date: 10/24/11 Status: Ordered Spiriva HandiHaler 18 mcg inhalation capsule USE 1 CAPSULE FOR INHALATION ONCE A DAY DO NOT SWALLOW CAPSULE Start Date: 03/15/23 Status: Ordered Vitamin B-12 1000 mcg oral tablet TAKE 1 TABLET BY MOUTH EVERY MORNING Start Date: 03/15/23 Status: Ordered Problem List Condition Confirmation Course Effective Dates Status Health St atus Informant Aortic valve disorder 1 Confirmed Active Arthritis Confirmed Active Asthma Confirmed Active Back pain Confirmed Active Diabetes mellitus Confirmed Active Hypertension Confirmed Active 121mm homograft 2014 - for endocarditis Social History Social History Type Response Smoking Status Current every day sm oker; Tobacco user in household: Yes entered on: 03/22/17 Sex Patient Care team information Care Team Personnel Name: Allyson Packer MD Position: S Outreach Member Role: PCP Address: Address: [address] [place] [address] [address] [place] [address]- Care Team Related Persons Name: SHAHAB HERCULES Address: home [address] [place] [id number] Name: ALLYSON MCKENNA Name: KIRA DOTSON Address: [place] [address] Name: RISA DOTSON
--- OUTSIDE RECORDS SUMMARY | 2023-10-21 00:07 | XMS_ITS | Continuity of Care Document ---
Author Organization [facility] Address [address] [place] [address]- Care Team Providers Care Director Educational Radio Name Role Phone Allyson Packer MD Primary Care Physici an [place] [facility] [place]23 - 05/20/23 [facility] [address] [place] [address]- Encounter Diagnosis Hypertension(Discharge Diagnosis) - 04/19/23 Complete heart block(Discharge Diagnosis) - 04/19/23 COPD exacerbation(Discharge Diagnosis) - 04/19/23 Aortic stenosis(Discharge Diagnosis) - 04/19/23 Attending Physician: Pardeep OGDEN, Dejan Walker Admitting Physician: Pardeep OGDEN, Dejan Walker Referring Physician: Allyson Packer MD Allergies, Adverse Reactions, Alerts Substance Reaction Severity Status ciprofloxacin Active aspirin Active shellfish hives Active Immunizations Given and Recorded Vaccine Date Status Refusal Reason Influenza Inactive (IM) (oldterm) 1 12/05/07 Given Pneumococcal Vaccine (oldterm) 2 09/30/07 Given 1Admin Note: SANOFI PASTEUR 2Result Comment: [id number] exp [id number] Medications Advair Diskus 250 mcg-50 mcg inhalation [...] 02/06/23 15:57:00 EST, Route to Pharmacy Electronically, [facility], 150, cm, 08/31/22 16:04:00 EDT, [...] Confirmed Active Hypertension Confirmed 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 Diagnosis Diagnosis Type Effective Dates Health Status Clinical Service Informant Hypertension Discharge Diagnosis 04/19/23 Complete heart block Discharge Diagnosis 04/19/23 COPD exacerbation Discharge Diagnosis 04/19/23 Aortic stenosis Discharge Diagnosis 04/19/23 Social History Social History Type Response Smoking Status Current every day sm oker; Tobacco user in household: Yes entered on: 03/22/17 Sex Cardiology Outpatient Note * 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
--- OUTSIDE RECORDS SUMMARY | 2023-10-21 00:08 | XMS_ITS | Continuity of Care Document ---
Author Organization [facility] Address [address] [place] [address]- Care Team Providers Care Concrete Bucket Unloader Name Role Phone Joshua Hampton MD, Allyson Osman Primary Care Physici an [place] [facility] [place] 08/09[place]23 - 09/08/23 [facility] [address] [place] [phone]- [place] Allergies, Adverse Reactions, Alerts Substance Reaction Severity Status ciprofloxacin Active aspirin Active shellfish hives Active Immunizations Given and Recorded Vaccine Date Status Refusal Reason Influenza Inactive (IM) (oldterm) 1 12/05/07 Given Pneumococcal Vaccine (oldterm) 2 09/30/07 Given 1Admin Note: SANOFI PASTEUR 2Result Comment: [id number] exp [id number] Medications Advair Diskus 250 mcg-50 mcg inhalation powder 1 puffs, Inhalation, 2 times a day, # 180 each, 0 Refills, Maintenance, 04/17/13 14:43:15, Powder Start Date: 04/17/13 Status: Ordered amitriptyline 25 mg oral tablet TAKE 1 TABLET BY MOUTH AT BEDTIME Start Date: 03/15/23 Status: Ordered amLODIPine 5 mg oral tablet 5 mg, 1, tablet, By Mouth, Daily, # 30 tablet, Refills 0, Maintenance, 08/31/23 8:51:00 EDT, Partial fill upon patient request if the prescription is for a schedule II opioid drug. Start Date: 08/31/23 Status: Ordered bisacodyl 5 mg oral delayed release tablet 1 tablet = 5 mg, By Mouth, Daily, PRN as needed for constipation, # 20 tablet, 0 Refills, Maintenance, 08/31/23 8:52:00 EDT, CR Tablet, Partial fill upon patient request if the prescription is for a schedule II opioid drug. Start Date: 08/31/23 Status: Ordered Dulcolax Stool Softener = 100 [...] EVERY MORNING Start Date: 03/15/23 Status: Ordered melatonin 5 mg oral tablet 1 tablet = 5 mg, By Mouth, Daily at bedtime, PRN for insomnia, # 60 tablet, 0 Refills, Maintenance,08/31/23 8:53:00 EDT, Tablet, Partial fill upon patient request if the prescription is for a schedule II opioid drug. Start Date: 08/31/23 Status: Ordered Plavix 75 mg oral tablet 75 mg, 1, tablet, By Mouth, Daily, # 90 tablet, Refills 3, Tot. Refills 3, Maintenance, 07/25/23 13:25:00 EDT, Route to Pharmacy Electronically, [facility], 150, cm, 07/05/23 15:49:00 EDT, Height, 79.5, kg, 03/15/23 21:25:00 Imer WRAY. Start Date: 07/25/23 Stop Date: 07/19/24 Status: Ordered Proventil HFA 90 mcg/inh inhalation [...] Maintenance, Capsule Start Date: 10/24/11 Status: Ordered Vitamin B-12 1000 mcg oral [...] Team Personnel Name: Allyson Packer MD Position: [facility] Outreach Member Role: PCP Address: Address: [address] [place] [address] [address] [place] [address]- Care Team Related Persons Name: SHAHAB HERCULES Address: home [address] [place] [phone] Name: ALLYSON MCKENNA Name: KIRA DOTSON Address: [place] [address] Name: RISA DOTSON
--- OUTSIDE RECORDS SUMMARY | 2023-10-21 00:08 | XMS_ITS | Continuity of Care Document ---
Author Organization [facility] ter Address [address] [place] [id number]- Care Team Providers Care Test Administrator Name Role Phone Allyson Packer MD Primary Care Physici an Encounter [facility] Date(s): 08/06/23 - 08/06/[address] [address] Discharge Disposition: A-D/C Home Attending Physician: Zechariah Reyez MD Admitting Physician: Zechariah Reyez MD Referring Physician: Zechariah Reyez MD Allergies, Adverse Reactions, Alerts Substance Reaction Severity Status ciprofloxacin Active aspirin Active shellfish hives Active Immunizations Given and Recorded Vaccine Date Status Refusal Reason Influenza Inactive (IM) (oldterm) 1 12/05/07 Given Pneumococcal Vaccine (oldterm) 2 09/30/07 Given 1Admin Note: SANOFI PASTEUR 2Result Comment: [id number] exp [id number] Medications Advair Diskus 250 mcg-50 mcg inhalation [...] 07/25/23 13:25:00 EDT, Route to Pharmacy Electronically, [facility], 150, cm, 07/05/23 15:49:00 EDT, Height, [...] 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 Vital Signs Most recent to oldest [Reference Range]: 1 2 3 Height 149 cm (08/06/23 12:30 PM) Weight 60.9 kg (08/06/23 12:30 PM) Oxygen Saturation [94-100 %] 95 % (08/06/23 5:30 PM) 100 % (08/06/23 5:15 PM) 100 % (08/06/23 5:00 PM) Pulse Rate [55-90 bpm] 60 bpm (08/06/23 12:30 PM) Body Mass Index [18.5-24.99 kg/m2] 27.43 kg/m2 *H* (08/06/23 12:30 PM) Blood Pressure [90-138/55-84 mm Hg] 138/83mm Hg (08/06/23 5:00 PM) 144/80mm Hg *H* (08/06/23 4:45 PM) 176/99mm Hg *H* (08/06/23 4:30 PM) Respiratory Rate [16-30 br/min] 22 br/min (08/06/23 5:30 PM) 22 br/min (08/06/23 5:15 PM) 24 br/min (08/06/23 5:00 PM) Temperature [96.8-100.4 DegF] 97.6 DegF (08/06/23 12:30 PM) Mode of Delivery (Oxygen) Room air (08/06/23 3:30 PM) Room air (08/06/23 12:30 PM) Blood pressure sites Arm, left (08/06/23 12:30 PM) Temperature Route Temporal (08/06/23 12:30 PM) Weight Obtained Via Standing scale (08/06/23 12:30 PM) Social History Social History Type Response Smoking Status Current every day sm zach; Tobacco user in household: Yes entered on: 03/22/17 Sex Note * Event Display: Hemodynamic Procedure Report Authored Date: [id number] * Event Display: Hemodynamic Procedure Report Authored Date: * Fernanda Sellers RN: PERFORM Event Display: Discharge/Transfer Note Hospital Authored Date: [id number] Nursing Discharge Note Entered On: 08/06/2023 18:59 EDT Performed On: 08/06/2023 17:45 EDT by Fernanda Sellers RN Nursing Discharge Note 2 Discharge Time : 08/06/2023 17:45 EDT Discharge Level of Care at Discharge : Home/Fci/[facility] Care Patient Left Unit Via : Wheelchair Patient Accompanied Off Unit with : Responsible adult DC Instructions Provided & Signed by Pt : Yes Patient Understands D/C Instructions : Yes Patient Instructions Discharge Signed : Yes Did Pt have Specialty Bed or Wound Vac : No Fernanda Sellers RN - 08/06/2023 18:59 EDT * Fernanda Sellers RN: PERFORM, MODIFY Event Display: Patient Education/Instruction Authored Date: [id number] Inpatient Adult Discharge Instructions. [address] [address] Name: ALLYSON DOTSON : 1960?? Visit: 08/06/2023 11:46?? Current Date: 08/06/2023 16:31 ?? Account: [id number]?? Inpatient Adult Discharge Instructions We would like to thank you for allowing us to assist you with your healthcare needs. The following includes patient education materials and information regarding your injury/illness. Our entire staffstrives to provide an excellent experience for our patients and their families. PLEASE ENSURE YOU FOLLOW-UP PER THE INSTRUCTIONS BELOW! ?? YOUR OPINION IS IMPORTANT TO US! Please complete the survey you may receive by mail or email. Your feedback will be used to make improvements to the healthcare experiences of our patients and their families. Surveys are administered by [employer] ?? If further treatment with your primary care physician or another doctor is recommended, it is important for you to keep the appointment. Call your primary care physician or return to the Emergency Department immediately if your condition worsens, fails to improve, or new symptoms develop. If you need to find a doctor, you can call [facility] for a referral at [phone] or toll free at [phone]) or log in to [email or web address].. ?? [facility], in keeping with [facility] guidance, no longer requires face masks for staff, patientsor visitors in most situations. Similiar to time spent indoors at other locations, there is the chance that you were exposed to repiratory viruses during your time with us (such as flu or COVID-19). If you develop symptoms concerning for a viral respiratory infection, please seek testing (and treatment if indicated) from your medical provider or home test kit. ?? You can view and manage your care through the patient portal or by using a health care mariluz of your choosing. [facility] is a website that allows you to securely view your medical information including your hospital discharge summary, office visit summaries, medications and follow-up visits. You can also request appointments, renew medications, and request access to your medical information using a health care mariluz of your choosing, or just ask a question. You can enroll at [email or web address] or register during your next office visit. You have been discharged from [facility], Patient Care Unit: PAN[facility]??. If you have any questions regarding these instructions, including results of studies pending, afteryou leave, please call us and we will be happy to assist you 18/09. [facility] Nursing Unit Direct Phone Number, for 18/09 contact and results of studies pending [facility] [address] [place] [address] Your Care Team Attending Physician Dereje CARREON, Zechariah Ann?? Consulting Providers Zechariah Reyez MD?? Discharging Providers Zechariah Reyez MD Tests Performed Below is a partial list of the tests performed during your hospitalization. You may have had other tests and procedures not included in this list. Please discuss all test results with your provider. BUN Creatinine GLUCOSE POC Type and Screen No tests performed during this visit.?? Primary Care Provider Joshua Hampton MD, Allyson Osman? Advance Directive Health Care Proxy on File Yes - Health Care Proxy Discharge Vitals Temperature: 97.6 DegF Height: 149 cm Pulse Rate: 60 bpm Weight: 60.9 kg Respiratory Rate: 20 br/min Body Mass Index:??27.43 kg/m2??High Systolic Blood Pressure:??176 mm Hg??High Body surface area: 1.59 Diastolic Blood Pressure: 79 mm Hg ?? Oxygen Saturation: 96 % ?? Studies Pending All studies ordered during this hospital stay have been completed unless listed below. Please discuss all pending results with your provider listed above in these instructions. ?? No incomplete studies found?? What to do next Instructions From Your Doctor ?? Orders?? Unit Discharge Criteria Met, ??08/06/23 15:46:00 EDT?? Scheduled Follow-Up Appointments 2023 10:00 AM EDT ?? Where[facility] [address] [place] [address]- Status: Pending Sunday 2:05 PM EDT ?? With: Luca CARREON, Victorino Braun Where: [facility] [address] [place] [address]- Status: Pending Sunday 2:20 PM EDT ?? Where: [facility] [address] [place] [address]- Status: Pending You Need to Schedule the Following Appointments Follow Up with??Allyson Packer MD A Follow Up with??Dereje CARREON, Zechariah Ann When:??Within 3-5 day: call to discuss follow up visit Where: [address] [place] [address] [address] [facility] [place] [address]- Discharge Medications ALLYSON DOTSON :1960 Visit Date:08/06/2023 Medications: Please continue your medications until treatment is completed or stopped by your provider. Medications not listed below should be discontinued. Discuss any questions related to medications with your provider. What How Much When Instructions Next Dose Unchanged Albuterol (Proventil HFA 90 mcg/ inh inhalationaerosol with adapter) 1 puff(s) Inhalation 4 times a day as needed for for wheezing continue home schedule as prescribed Unchanged amiTRIPTYLINE (amitriptyline 25 mg oral tablet) TAKE 1 TABLET BY MOUTH AT BEDTIME ?? continue home schedule as prescribed Unchanged Clopidogrel (Plavix 75 mg oral tablet) 1 tab(s) Oral Daily Duration: 90 Days continue home schedule as prescribed Unchanged Cyanocobalamin (Vitamin B-12 1000 mcg oral tablet) TAKE 1 TABLET BY MOUTH EVERY MORNING ?? continue home schedule as prescribed Unchanged Docusate (Dulcolax Stool Softener) 100 Milligram Oral Twice a day continue home schedule as prescribed Unchanged Fluticasone-Salmeterol (Advair Diskus 250 mcg-50 mcg inhalation powder) 1 puff(s) Inhalation Twice a day continue home schedule as prescribed Unchanged Folic Acid (folic acid 1 mg oral tablet) TAKE 1 TABLET BY MOUTH EVERY MORNING ?? continue home schedule as prescribed Unchanged Gabapentin (gabapentin 100 mg oral capsule) TAKE 1 CAPSULE BY MOUTH THREE TIMES DAILY IN THE MORNING, EVENING, AND BEDTIME ?? continue home schedule as prescribed Unchanged Hydrochlorothiazide (hydrochlorothiazide 12.5 mg oral tablet) TAKE 1 TABLET BY MOUTH EVERY MORNING ?? continue home schedule as prescribed Unchanged Montelukast (Singulair 10 mg oral tablet) 1 tab(s) Oral Daily in PM continue home schedule as prescribed continue home schedule as prescribed Unchanged Sertraline (sertraline 50 mg oral tablet) 1 tab(s) Oral Daily continue home schedule as prescribed Unchanged Tiotropium (Spiriva HandiHaler 18 mcg Inhalation Capsule) 18 Microgram Inhalation Daily continue home schedule as prescribed Prescription Given During Visit No new medications prescribed at time of discharge.?? Laboratory Results Below is a partial list of the most recent Laboratory test results done prior to this discharge. You may have had other tests and procedures not included in this list. Please discuss all test resultswith your provider. BUN (08/06/2023) ???BUN - 15 mg/dL Creatinine (08/06/2023) ???Creatinine-Blood - 0.61 mg/dL???Estimated GFR Creatinine - 102 ML/MIN/1.73 M2 GLUCOSE POC (08/06/2023) ???Glucose, POC - 90 mg/dL Type and Screen (08/06/2023) ???Blood Type - A Positive???Antibody Screen - Negative Allergies (NKA means No Known Allergies) aspirin ciprofloxacin shellfish??(hives) Problems Active Problems??(6) Aortic valve disorder?? Arthritis?? Asthma?? Back pain?? Diabetes mellitus?? Hypertension?? Education Materials Below is the list of Educational Leaflet Providered with your Discharge Instructions. Web[employer] Ignite Patient Education - Pacemakers?? Web[employer] Ignite Patient Education - Procedural Sedation, Recovery (Adult)?? Valuables and Belongings I fully understand and agree that [facility] accepts no responsibility for all my personal property including clothing, toilet articles, radios, jewelry, dentures, hearing aids, rings, money, or any other property that is in my possession or is brought to me after admission. I understand certain valuables may be placed in a hospital safe for a short period of time. I understand that the hospital is not liable for loss or damage due to accident, fire, or other natural occurrence while said property is in the safe. I accept full responsibility for any personal property that I keep with me, and will not hold the hospital responsible in case of loss or disappearance. I acknowledge that i have been encouraged to send valuables and belongings home. ?? Review of Valuable and Belonging List: With patient Date for Pt to Sign Valuables/Belongings: 08/06/23 14:10:00 ?? Valuables & Belongings ?? Clothes Electronic devices Jewelry Monetary Items Personal devices Miscellaneous Medications (Valuables) Valuables at Bedside Pants, Shirt, Shoes, Undergarments ? Valuables Sent Home ? Valuables Sent to Security ? Other Discharge Information ? Pulmonary Rehab Status?? Pulmonary Rehab Discharge Status?? Respiratory Rate: 20 br/min ? Common Emergency Awareness Tips IS IT A STROKE? Act FAST and Check for these signs: FACE Does the face look uneven? ARM Does one arm drift down? SPEECH Does their speech sound strange? TIME Call at any sign of stroke ?? Heart Attack Signs Chest discomfort: Most heart attacks involve discomfort in the center of the chest and lasts more than a few minutes, or goes away and comes back. It can feel like uncomfortable pressure, squeezing, fullness or pain. Discomfort in upper body: Symptoms can include pain or discomfort in one or both arms, back, neck, jaw or stomach. Shortness of breath: With or without discomfort. Other signs: Breaking out in a cold sweat, nausea, or lightheaded. Remember, MINUTES DO MATTER. If you experience any of these heart attack warning signs, call to get immediate medical attention! ?? Smoking can increase your chances of developing chronic health problems and can cause harmful effects to other family members in your house. If you smoke, you are strongly encouraged to quit. Please call [employer] Link at [phone] or [phone] ([phone]) or log in to [email or web address] for referrals to smoking cessation programs. ?? 783 Suicide & Crisis Lifeline is available 18/09 if you or someone you know needs to find a reason to keep living. By calling 427 you'll be connected to a skilled, trained counselor at a crisis center in your area. INPATIENT DISCHARGE INSTRUCTIONS SIGNATURE ALLYSON FERMIN Location:[facility] Registration Date and Time:08/06/2023 11:46 EDT Primary Care Physician: Allyson Packer MD, Attending Physician: Dereje CARREON, Zechariah Ann, I NILA ALLYSON, have received the above patient education materials/instructions and have verbalizedunderstanding. If ambulance or transport services are being used I further acknowledge being given a choice of service. ?? If you need to contact me, please call me at this number: . Patient/Shirt Sewer Name: Patient/Shirt Sewer Signature: Relationship to Patient: Witness Name/Signature: Date: * Fernanda Sellers RN: PERFORM Event Display: Patient Education Leaflets Authored Date: [id number] Pacemakers ?? [id number] Anjum villanueva es un dispositivo electr??mike zach??o que lucius que joiner frecuencia card??jennifer sea demasiado lenta. Adem??s, se asegura de que joiner coraz??n jessica en el momento que corresponda. La colocaci??n del marcapasos dentro del cuerpo se llama implantaci??n. Hay varios tipos diferentes de marcapasos. Joiner proveedor de atenci??n m??dica le explicar?? qu?? tipo de marcapasos es mejor para usted. ??C??mo me preparo para la implantaci??n del marcapasos? Siga las instrucciones que le den con respecto a no ingerir alimentos ni bebidas antes de la cirug??a. ??? Informe al proveedor de atenci??n m??dica acerca de cualquier alergia que tenga a medicamentos, mariscos o yodo de contraste, cintas o adhesivos o jabones con antibi??ticos. Se pueden ofrecer alternativas o laura precauciones para evitar exponerlo a cualquier elemento al que sea al??rgico. ??? Siga las instrucciones del proveedorde atenci??n m??dica sobre qu?? medicamentos laura. En jessica de estar tomando anticoagulantes, es posible que el proveedor de atenci??n m??dica le d?? instrucciones para que suspenda la medicaci??n antes del procedimiento. [place] se hace a fin de disminuir el riesgo de sufrir monique hemorragia mayor. Es posible que le ordenen suspender los medicamentos que interact??an con el medio de contraste que se utiliza donell el procedimiento. ??? Es posible que le pidan que se duche con jab??n antibacterianola noche anterior al procedimiento y la ma??susan del procedimiento. Pregunte al proveedor de atenci??n m??dica qu?? clase de jab??n debe usar. ??? El proveedor de atenci??n m??dica puede pedirle que use s??emeka y pijamas limpios la noche anterior al procedimiento. [place] puede reducir el riesgo de inf ecci??n. ??? Es posible que le administren un antibi??nel a adonis??s de la v??a intravenosa para protegerlo de alguna infecci??n despu??s del procedimiento de implante. ??? Le sacar??n joseluis seg??n joiner estado de viraj general. Si los ri??ones no est??n sanos, es posible que necesite atenci??n especial antes del procedimiento. ??? Si es monique brie en edad f??rtil, es posible que le soliciten que sehaga monique prueba de embarazo antes del procedimiento. ?Qu?? sucede donell el procedimiento? El proveedor de atenci??n m??dica puede recetarle medicamentos para que se relaje e impedir que sienta dolor donell el procedimiento. ??? Se le colocar?? monique v??a intravenosa en el brazo del mismo lado del lugar del procedimiento. ??? Le administrar??n anestesia local mediante inyecci??n para desensibilizar la shan por donde se va a introducir el marcapasos. As?? se lucius que sienta dolor donell el procedimiento. ??? El proveedor de atenci??n m??dica kvng?? un harshal (incisi??n) en el lugar donde se va a colocar el generador del marcapasos. ??? El proveedor de atenci??n m??dica guiar?? el cable conductor a adonis??s de monique vena en el interior de la c??salvatore del coraz??n mediante monitores de estrella??X. ??? Luego, conectar?? el generador del marcapasos al electrodo o a los electrodos y probar?? el dispositivo. ??? El proveedor de atenci??n m??dica cerrar?? el sitio de incisi??n con puntos de sutura. Tambi??n es posible que selle el sitio con pegamento quir??rgico a fin de prevenir infecciones. ??? Podr??a aplicarse un ap??sito en la incisi??n. [place] se hace para reducir el riesgo de hemorragias y tambi??n para protegerlo de infecciones. ??? Seprograman los par??metros de regulaci??n del marcapasos para que el coraz??n pueda latir a un ritmoadecuado para usted. ?Qu?? sucede despu??s del procedimiento? La kvng??n monique radiograf??a de t??rax mientras se encuentra en el ??janeen de recuperaci??n. ??? Se revisar??n los par??metros de regulaci??n del marcapasos.??? Es posible que el proveedor de atenci??n m??dica le recete antibi??ticos para que tome despu??sdel procedimiento a fin de prevenir infecciones. ??? Siga las instrucciones que le den para cuidar el sitio del implante. Es posible que le pidan que no levante el brazo de yuly lado donell alg??n tiempo. Es posible que tenga que usar un cabestrillo para evitar expressive music therapist el brazo del lado de la incisi??n. [place] se hace para evitar que el cable del nuevo marcapasos se corra de lugar. El proveedor de atenci??n m??dica le dir?? cu??nto tiempo y cu??ndo deber?? usarlo. ??? Todos los d??as, donell monique semana, t??mese la temperatura y examine la incisi??n para toribio si hay signos de infecci??n. ??? Vaya a la visita de seguimiento seg??n le hayan indicado. ??? Consulte al proveedor de atenci??n m??dica cu??ndo ser?? seguro ducharse, ba??arse o nadar. Por lo general, no deber??a sumergirse en agua donell, al menos, monique semana para prevenir que la incisi??n se ablande, tj o infecte. ??? Evite todaslas actividades que podr??an ejercer presi??n en el sitio de incisi??n o causar irritaci??n en la incisi??n. No use lociones, polvos o pomadas a menos que el proveedor de atenci??n m??dica lo autorice a hacerlo. No cargue carteras o mochilas que podr??an ejercer presi??n en el sitio de incisi??n. ?? Marcapasos y dispositivos electr??nicos Tenga precauci??n cuando use tel??fonos celulares y otros dispositivos electr??nicos. Mant??ngalos a monique distancia de, por lo menos, 15??cm (6??pulgadas) de joiner marcapasos. Lo m??s seguro es usar los tel??fonos celulares en la oreja que est?? m??s alejada del marcapasos o usar el altavoz. No lleve el tel??fono ni otro dispositivo electr??mike en el bolsillo del pecho, sobre el marcapasos. Se aconseja llevarlos en un bolsillo que est?? debajo de la cintura o en un bolso. La mayor??a de los tel??fonos celulares y dispositivos electr??nicos no interfieren con los marcapasos. Laura algunos celulares y dispositivos electr??nicos (sameer los relojes inteligentes) usan imanes potentes para la carga inal??mbrica. Estos pueden interferir en el funcionamiento normal del marcapasos. El im??n usado para cargar y otros accesorios con imanes tambi??n pueden interferir en el funcionamiento normal del marcapasos. Mantenga estos dispositivos a monique distancia m??zach de 30??cm (12??pulgadas) del marcapasos cuando los guarde o los cargue por v??a inal??mbrica. Siga toda instrucci??n que le haya dado joiner proveedor de atenci??n m??dica o el fabricante de joiner marcapasos. ?? Cu??ndo llamar al proveedor de atenci??n m??dica Llame al proveedor de atenci??n m??dica de inmediato si tiene cualquiera de los siguientes s??ntomas: ??? Alguno de los s??ntomas que ten??a antes de que le implantaran el marcapasos, sameer falta de energ??a. ??? Contracciones de los m??sculos del pecho o del abdomen. ??? Hipo que no desaparece. ???Ritmo card??aco muy r??pido o hemal o falta de aire. ??? Dolor en la shan alrededor del marcapasos. ??? Tiene fiebre de 100.4?F??(38?C) o superior (o 1??ko o m??s por encima de joiner temperatura normal),o seg??n le indique el proveedor de atenci??n m??dica. ??? Enrojecimiento, hinchaz??n grave, supuraci??n, sangrado o calor en el lugar de la incisi??n. ??? El sitio de incisi??n no zachary, sesepara o se abre. ??? Sensaci??n de que el generador del marcapasos est?? suelto o sameer si se moviera dentro del bolsillo debajo de la piel. ??? Si, por cualquier francis??n, necesita hacerse monique resonancia magn??umer. En algunos casos, no es seguro realizarse monique resonancia magn??umer con un marcapasos colocado. ?? Cu??ndo llamar al 911 Llame al 911 si tiene alguno de los siguientes s??ntomas: ??? Dolor de pecho ??? Dificultad para respirar grave ??? Mareos, aturdimiento o desmayos ?? Last Reviewed Date: 2022 ?? [id number] [employer] Todos los derechos reservados. Esta informaci??n no pretende sustituir la atenci??n m??dica profesional. S??lo joiner m??dico puede diagnosticar y tratar un problema de viraj. ?? * Verito CASTELLANOS, Fernanda: PERFORM Event Display: Patient Education Leaflets Authored Date: [id number] Procedural Sedation, Recovery (Adult) ?? [id number] Recuperaci??n despu??s de la sedaci??n para procedimientos (adultos) Le administraron medicamentos por v??a intravenosa para sedarlo donell el procedimiento. Es posible que le hayan dado un medicamento contra el dolor y otro para dormir. La mayor parte del efecto de estos medicamentos ya wolf desaparecido. Laura puede sentir somnolencia donell las pr??ximas seis a ocho horas. Cuidados en el hogar Siga las siguientes recomendaciones cuando llegue a joiner casa: ??? Es importante que haya un adulto responsable a joiner lado donell las pr??ximas ocho horas. Esta persona debe vigilar que joiner afecci??n no empeore. ??? No marie??alcohol donell las pr??ximas 24 horas. ??? No conduzca, no opere maquinaria peligrosa ni tome decisiones importantes personales o de negoc ios??donell las siguientes 24 horas. Nota: Joiner proveedor de atenci??n m??dica puede indicarle que no tome alan??n medicamento por boca para el dolor ni para dormir en las pr??ximas 4??horas. Estos pueden reaccionar con los medicamentos que le administraron en el hospital. Podr??an causar monique respuesta mucho m??s hemal que lo normal. ?? Visita de seguimiento Asista a las citas de seguimiento con joiner proveedor de atenci??n m??dica seg??n le hayan indicado. Programe monique visita de control con joiner proveedor de atenci??n m??dica si no se siente alerta ni puede reanudar joiner nivel normal de actividad en las siguientes 12??horas. ?? Cu??ndo buscar atenci??n m??dica Pida a alguien que llame a joiner proveedor de atenci??n m??dica ante cualquiera de los siguientes s??ntomas: ??? Somnolencia que empeora ??? Debilidad o mareos que empeoran ??? V??mitos persistentes ???Dolor intenso o lambert luego del procedimiento, que no se alvino con los analg??sicos (en jessica de que se los hayan indicado) ??? Fiebre ??? Sarpullido nuevo ?? Cu??ndo llamar al?? 911 Pida a alguien que llame al?? 911 si presenta alguno de estos s??ntomas: ??? Falta de aire ??? Dolor de pecho ??? P??rdida del conocimiento o no pueden despertarlo ?? Last Reviewed Date: 2021 ?? [id number] [employer]. Todos los derechos reservados. Esta informaci??n no pretende sustituir la atenci??n m??dica profesional. S??lo joiner m??dico puede diagnosticar y tratar un problema de viraj. ?? EKG study * Event Display: ECG 12-Lead Authored Date: Please click on pdf link to open report * Event Display: ECG 12-Lead Authored Date: Ventricular Rate: 66 BPM Atrial Rate: 72 BPM QRS Duration: 152 ms Q-T Interval: 466 ms QTC Calculation(Bazett): 488 ms R [place]: -74 degrees T [place]: 88 degrees Ventricular-paced rhythm with occasional Premature ventricular complexes Abnormal ECG When compared with ECG of 18-JUL-2018 15:10, Premature ventricular complexes are now Present Confirmed by Nash Bunch ([id number]) on 08/06/2023 12:40:13 PM Marble: Nash Bunch Patient Care team information Care Team Personnel Name: Allyson Packer MD Position: [facility] Outreach Member Role: PCP Address: Address: [address] [place] [address] [address] [place] [address]- Care Team Related Persons Name: SHAHAB HERCULES Address: home [address] [place] [id number] Name: ALLYSON MCKENNA Name: KIRA DOTSON Address: [place] [address] Name: RISA DOTSON
--- OUTSIDE RECORDS SUMMARY | 2023-10-21 00:08 | XMS_ITS | Continuity of Care Document ---
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 Name Role Phone Allyson Packer MD Primary Care Physici an Encounter [facility] R [id number] Date(s): 04/20/23 - 05/20/23 [facility] [address] [place] [id number]- Attending Physician: Rosina Bravo Admitting Physician: AdmtrRosina Referring Physician: AdmtrRosina Allergies, Adverse Reactions, Alerts Substance Reaction Severity Status ciprofloxacin Active aspirin Active shellfish hives Active Immunizations Given and Recorded Vaccine Date Status Refusal Reason Influenza Inactive (IM) (oldterm) 1 12/05/07 Given Pneumococcal Vaccine (oldterm) 2 09/30/07 Given 1Admin Note: SANOFI PASTEUR 2Result Comment: [id number] Medications Advair Diskus 250 mcg-50 mcg inhalation [...] 02/06/23 15:57:00 EST, Route to Pharmacy Electronically, [facility], 150, cm, 08/31/22 16:04:00 EDT, [...] 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 Social History Social History Type Response Smoking Status Current every day shiloh serrano; Tobacco user in household: Yes entered on: 03/22/17 Sex Cardiology * Event Display: Cardiology Office Note, Non-BH Authored Date: * Event Display: Transtelephonic Arrhythmia Monitoring Authored Date: * Event Display: Transtelephonic Arrhythmia Monitoring Authored Date: * Event Display: Transtelephonic Arrhythmia Monitoring Authored Date: * Event Display: Cardiology Office Note, Non- Authored Date: Cardiology Outpatient Note * Soo aCmpuzano: REVIEW BessieNilton ocampona: REVIEW, SIGN, VERIFY Event Display: Cardiology Note Office Authored Date: [id number] Patient: ALLYSON KEITH Age: 50 years Sex: Female : 1960 Associated Diagnoses: None Author: Kane OGDEN, Elise Catherine Dear Dr. Lou, I understand Ms. Keith is in need of surgery for her gallbladder. 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 She has a history of previous IV drug use, positive family history of heart disease, asthma, syncope, COPD, migraines, chronic low back pain, or previous tobacco. She underwent cardiac catheterization in 09/2010, after being admitted with chest discomfort. She was found to have normal coronary arteries, no significant obstructive coronary disease. She was last seen in the office in April at which time she was stable. I discussed her issues with Dr. Crawford. We can see no cardiac contraindications to her upcoming surgery for her gallbladder which I understand is urgently needed because of worsening pain. We would notrecommend any further cardiac testing at this time. Please let us know if you any further questionsor concerns. Sincerely, Elise Middleton NP [facility] Cardiology Patient Care team information Care Team Personnel Name: Allyson Packer MD Position: [facility] Outreach Member Role: PCP Address: Address: [address] [place] [address] [address] [place] [address]- Care Team Related Persons Name: SHAHAB HERCULES Address: home [address] [place] [address] Name: MCKENNA, ALLYSON Name: KIRA KEITH Address: [place] [address] Name: RISA KEITH Address: home [place]
--- OUTSIDE RECORDS SUMMARY | 2023-10-21 00:08 | XMS_ITS | Continuity of Care Document ---
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 Name Role Phone Joshua Hampton MD, Ting Osman Primary Care Physici an Encounter [facility] Date(s): 03/15/23 - 03/17/[address] [id number] Discharge Disposition: A-D/C Home Attending Physician: Jin Quiroz MD Admitting Physician: Horacio Mullins MD Referring Physician: Not on Staff, Referring MD Allergies, Adverse Reactions, Alerts Substance Reaction Severity Status ciprofloxacin Active aspirin Active shellfish hives Active Immunizations Given and Recorded Vaccine Date Status Refusal Reason Influenza Inactive (IM) (oldterm) 1 12/05/07 Given Pneumococcal Vaccine (oldterm) 2 09/30/07 Given 1Admin Note: SANOFI PASTEUR 2Result Comment: [id number] exp [id number] Medications Advair Diskus 250 mcg-50 mcg inhalation [...] AND BEDTIME Start Date: 08/31/22 Status: Ordered gabapentin 100 mg oral capsule 100 mg, Capsule, By Mouth, 03/17/23 15:00:00 EST Start Date: 03/17/23 Stop Date: 03/17/23 Status: Completed gabapentin 100 mg oral capsule 100 mg, Capsule, By Mouth, 03/17/23 9:00:00 EST Start Date: 03/17/23 Stop Date: 03/17/23 Status: Completed hydrochlorothiazide 12.5 mg oral tablet TAKE 1 TABLET BY MOUTH EVERY MORNING Start Date: 03/15/23 Status: Ordered Plavix 75 mg oral tablet 75 mg, 1, tablet, By Mouth, Daily, # 90 tablet, Refills 1, Tot. Refills 1, Maintenance, 02/06/23 15:57:00 EST, Route to Pharmacy Electronically, [facility], 150, cm, 08/31/22 16:04:00 EDT, Height Start Date: 02/06/23 Stop Date: 08/05/23 Status: Ordered predniSONE 20 mg oral tablet = 40 mg, By Mouth, Daily, for 2 days, Laura 40 mg (2 comprimidos) por la manana los ty 18/03 y 19/03, # 4 tablet, 0 Refills, Acute 03/19/23 10:13:00 EST, 03/17/23 10:13:00 EST, Tablet, [facility], Partial fill upon patient request if the... Start Date: 03/17/23 Stop Date: 03/19/23 Status: Ordered Proventil HFA 90 mcg/inh inhalation [...] oldest [Reference Range]: 1 2 3 Height 150 cm (03/17/23 2:04 PM) 150 cm (03/17/23 7:58 AM) 150 cm (03/17/23 2:50 AM) Weight 56.6 kg (03/17/23 5:38 AM) 56.6 kg (03/16/23 4:59 AM) 56.2 kg (03/15/23 8:28 PM) Oxygen Saturation [94-100 %] 96 % (03/17/23 2:04 PM) 97 % (03/17/23 7:58 AM) 94 % (03/17/23 2:50 AM) Pulse Rate [55-90 bpm] 66 bpm (03/17/23 2:04 PM) 65 bpm (03/17/23 7:58 AM) 64 bpm (03/17/23 2:50 AM) Body Mass Index [18.5-24.99 kg/m2] 24.98 kg/m2 (03/15/23 8:28 PM) Blood Pressure [90-138/55-84 mm Hg] 117/80mm Hg (03/17/23 2:04 PM) 127/77mm Hg (03/17/23 7:58 AM) 116/91mm Hg (03/17/23 2:50 AM) Respiratory Rate [16-30 br/min] 18 br/min (03/17/23 3:21 PM) 18 br/min (03/17/23 2:04 PM) 16 br/min (03/17/23 11:34 AM) Temperature [96.8-100.4 DegF] 97.2 DegF (03/17/23 2:04 PM) 97.8 DegF (03/17/23 7:58 AM) 97.0 DegF (03/17/23 2:50 AM) Mode of Delivery (Oxygen) Room air (03/17/23 2:04 PM) Room air (03/17/23 7:58 AM) Nasal cannula (03/17/23 2:50 AM) Blood pressure sites Arm, left (03/17/23 2:04 PM) Arm, right (03/17/23 7:58 AM) Arm, left (03/17/23 2:50 AM) Temperature Route Temporal (03/17/23 2:04 PM) Temporal (03/17/23 7:58 AM) Temporal (03/17/23 2:50 AM) Dry Weight 79.5 kg (03/15/23 8:28 PM) Weight Obtained Via Bed scale (03/17/23 5:38 AM) Bed scale (03/16/23 4:59 AM) Bed scale (03/15/23 6:45 PM) Social History Social History Type Response Smoking Status Current every day shiloh serrano; Tobacco user in household: Yes entered on: 03/22/17 Sex Admission evaluation note * Kiara Guillaume MD: MODIFY, PERFORM, MODIFY, MODIFY, MODIFY, MODIFY, MODIFY, MODIFY, MODIFY, MODIFY Event Display: Admission Note Authored Date: [id number] Patient: ??TING KEITH ? Age:??62 Years?Sex:??Female?:??1960?? Chief Complaint/Reason for Consultation SOB, severe aortic stenosis History of Present Illness Ms. 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 for asthma/COPD exacerbation and further evaluation of severe aortic stenosis.??Patient is a difficult historian, history is obtained from patient and review ofrecords from [facility] and [facility]. Patient initially presented to [facility] from home on 03/14??f or shortness of breath and wheezing.??She reports chronic dyspnea and cough in the??setting of asthma/COPD, however her breathing worsened in the last week.??At [facility], patient was afebrile,??HR 80s, [id number],??saturating??92% on room air.??Labs revealed??unremarkable CBC,??normal electrolytes, creatinine 0.66, normal LFTs,??expanded respiratory viral panel??negative.??Noted to have wheezing??andshortness of breath which was attributed to??acute??asthma/COPD exacerbation.?? Chest XR??was without consolidations, effusions, or pulmonary vascular congestion. ECG with v-paced rhythm rate 61, no acute ischemic changes.??She was started on IV??Solu-Medrol 40 mg??BID (2 doses given) and??Duonebs.??Her valvular heart disease was noted so??TTE??was obtained which??showed LVEF 60-65%, no WMA, indeterminate diastolic function;??Severe aortic valve stenosis with peak aortic velocity 4.57 m/s with calculated peak gradient 83 mmHg, mean gradient 42 mmHg, mild aortic valve regurgitation. Report notes that measured valve area >1 cm2 is likely erroneous (falsely increased) due to high LVOT??VTI measurement. ??Case was discussed with??[facility] cardiology Dr. Wolff who recommended transfer to [facility]??for further evaluation of severe aortic stenosis. It was also noted that patient is overdue for [employer] generator exchange; per last device assessment in Sep 2022, there were 10 months of battery left at that time and patient missed several appointments including a planned battery exchange last week. ?? Patient was transported to [facility]??without event. ??On arrival, she remained??hemodynamically stable in??v-paced??rhythm rates??60s, saturating well on room air.?? She denies??current??dyspnea or wheezing, reports her breathing feels back to baseline since??receiving treatment at [facility].?? She also denies chest pain, palpitations, weakness, dizziness,??presyncope, fever/chills. ??She does have a chronic, mildly productive cough at baseline which??was slightly worse than usual last week??however has been at his baseline??in the last few days.?? She uses only an albuterol??MDI at home, has not been on any steroid bursts of antibiotics recently. ?? Review of Systems A full ROS was performed with all pertinent positives and negatives as per HPI and below. GI: No abdominal pain, nausea/vomiting, diarrhea, constipation Neuro:??No headache, weakness, dizziness,??focal??weakness/numbness Objective Measurements?? Weight: 56.2 kg (03/15/23) ?? Vital Signs?? Temperature: 98.2 DegF (03/15/23 19:08:00) Temperature Route: Temporal (03/15/23 19:08:00) Pulse Rate: 75 bpm (03/15/23 19:08:00) Respiratory Rate: 20 br/min (03/15/23 19:08:00) Systolic Blood Pressure: 132 mm Hg (03/15/23 19:08:00) Diastolic Blood Pressure: 70 mm Hg (03/15/23 19:08:00) Blood pressure sites: Arm, right (03/15/23 19:08:00) Mean Arterial Pressure: 91 mm Hg (03/15/23 19:08:00) Pulse Pressure: 62 mm Hg (03/15/23 19:08:00) Oxygen Saturation: 97 % (03/15/23 19:08:00) Mode of Delivery (Oxygen): Room air (03/15/23 19:08:00) Early Warning Score: 0 (03/15/23 19:09:33) ? Physical Exam General:??Alert, NAD Mental Status:??Oriented to person, time and place. Normal affect HEENT:??Normocephalic. PERRL, EOMI. MMM. Neck supple. Respiratory:??Comfortable work of breathing. ??Scattered soft inspiratory and expiratory wheezes??with??good air movement to bases bilaterally. Cardiovascular: RRR.?? Grade IV-V/ systolic murmur heard throughout precordium??loudest at USB.??Audible S1 and S2.?? Breast capillary refill??throughout. Gastrointestinal:??Normal bowel sounds. Abdomen soft, non-tender, non-distended. No masses Neurologic:??Cranial nerves II-XII grossly intact, no focal neurological deficits. Skin:??No rashes, lesions or ecchymoses?? Extremities:??No gross deformities. Normal range of motion Assessment/Plan Diagnoses Asthma exacerbation, mild ??(J45.901) Depression ??(F32.A) Hypertension ??(I10) S/P aortic valve repair ??(Z98.890) S/P cardiac pacemaker procedure ??(Z95.0) Severe aortic valve stenosis ??(I35.0) Shortness of breath ??(R06.02) Tobacco use disorder, moderate, in early remission ??(F17.201) Type 2 diabetes mellitus ??(E11.9) ? 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 for a chief complaint of??acute on chronic dyspnea??secondary to a mild asthma exacerbation??as well as further evaluation of severe aortic stenosis. ? Severe aortic valve stenosis H/o endocarditis s/p aortic valve homograft Complete heart block s/p pacemaker TTE at [facility] on 03/15: LVEF 60-65%, no WMA, indeterminate diastolic function;??Severe aortic valve stenosis with peak aortic velocity 4.57 m/s with calculated peak gradient 83 mmHg, mean gradient 42 mmHg, mild aortic valve regurgitation. Report notes that measured valve area >1 cm2 is likely erroneous (falsely increased) due to high LVOT??VTI measurement. Severe likely contributing to patient's??chronic dyspnea on exertion. 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 Wolff for further evaluation of severe??,??consideration of TAVR. Also overdue for pacemaker??generator change??(patient missed her??recent appointment to do this outpatient). No acute arrhythmia or concern for??ACS.?? HDS and well-perfused on exam. ?? Plan: -[facility] cardiology consult placed, day team to follow-up in morning to further discuss consideration of TAVR and??pacemaker generator exchange -Hold Plavix in anticipation of procedure. ??Last dose??was in the morning of 03/15 -N.p.o. after midnight??in case of??procedure tomorrow -Patient shares that she has been missing her outpatient cardiology appointments due to??lack of transportation.?? Should have PCP follow-up??and ideally PT-1 transportation arranged. ? Respiratory distress, dyspnea -improving Asthma/COPD with??mild acute exacerbation Prior tobacco use in early remission Acute on chronic dyspnea in the setting of??asthma/COPD??as well as severe aortic stenosis??(below). Unclear if she carries a diagnosis of asthma or COPD. ??She is on home inhalers that suggest??COPD and she has??a??long??smoking history, but happy to report for that she??quit smoking 2 months ago. Her breathing feels back to baseline??upon arrival to [facility].?? There is no fever, leukocytosis,??focal findings on CXR, or??increased sputum production to suggest the need for antibiotics at this time. ?? Plan: -Prednisone 40 mg x4 days??to complete 5-day course -Scheduled DuoNebs 4 times daily and albuterol as needed -Has Advair and Spiriva??prescribed but does not take at home. ??Will provide Breo Ellipta??inpatient,??will need??education on??proper use of inhalers at home prior to DC -Continue home Singulair 10 mg QD -Hold antibiotics at this time, can consider??azithromycin if??respiratory status??worsens -Currently on room air,??O2 sat goal 88-92% -Patient declines??NRT, not having nicotine cravings??currently ? Chronic/stable: Type II DM??not on long-term insulin:??Normoglycemic since presentation??to [facility].?? Lispro SS??and POCG??3 times daily + bedtime, hypoglycemia measures in place Depression: Continue home sertraline 50 mg and amitriptyline??25 mg daily HTN:??Continue home hydrochlorothiazide 12.5 mg daily Chronic back pain: Continue home gabapentin 100 mg 3 times daily ? Quality Measures VTE Prophlylaxis: Heparin TID?? - delay 24 hrs until after possible procedure tomorrow. Received Lovenox AM 03/15 at [facility] Code Status: Full code, discussed on admission. Diet: Cardiac diabetic, NPO after MN OMN:??Evaluation of with possible TAVR, pacemaker generator exchange Med rec: Performed with patient and use of external med rec review HCP: Brother Kira Keith. Did not reach at time of admission. ? Kiara Guillaume MD Med-Peds PGY-3 P. [id number] or??[facility] ?? This patient was seen and discussed with attending physician, Dr. Giuliana Thorpe Histories Allergies Allergies ?(Active and Proposed Allergies Only) ciprofloxacin? (Severity: Unknown severity, Onset: Unknown) shellfish? (Severity: Unknown severity, Onset: Unknown) ?Reactions: hives aspirin? (Severity: Unknown severity, Onset: Unknown) ? Past Medical History/Problem List Active Problems??(5) Arthritis Asthma Back pain Diabetes mellitus Hypertension Obstructive sleep apnea Rheumatoid arthritis Fibromyalgia GERD Aortic valve endocarditis Overactive bladder ? Past Surgical History Echocardiogram Bilateral cataract extraction History of colonoscopy History of cystoscopy History of hysterectomy History of aortic valve replacement History of laparoscopic cholecystectomy History of epidermal inclusion cyst excision ?? Social History Alcohol: Denies Tobacco use:??Has not smoked cigarettes in??2 months.?? No longer having cravings or using nicotinepatches.?? Previously smoked??half??pack per day??for 16 years. Denies marijuana, cocaine,??heroin, or other illicit substance use. Per [facility]??records, there is a??documented history of??prior IV drug use??resulting in infective endocarditis??and aortic valve replacement.?? Patient??adamantly denies any??history of IV drug use??during my interview. Patient lives alone??but has??family close by who regularly checks in on her. ??Also has a home health aide??through [facility]. ? Family History Non-contributory ?? Medications Home Medications Albuterol (Proventil HFA 90 mcg/inh inhalation aerosol with adapter)?1?puff(s)?Inhalation?4 times a day?as needed?for wheezing amiTRIPTYLINE (amitriptyline 25 mg oral tablet)?TAKE 1 TABLET BY MOUTH AT BEDTIME Clopidogrel (Plavix 75 mg oral tablet)?75?Milligram?1?tablet?By Mouth?Daily?for 90?Days Cyanocobalamin (Vitamin B-12 1000 mcg oral tablet)?TAKE 1 TABLET BY MOUTH EVERY MORNING Docusate (Dulcolax Stool Softener)?100?Milligram?By Mouth?2 times a day Fluticasone-Salmeterol (Advair Diskus 250 mcg-50 mcg inhalation powder)?1?puff(s)?Inhalation?2 times a day Folic Acid (folic acid 1 mg oral tablet)?TAKE 1 TABLET BY MOUTH EVERY MORNING Gabapentin (gabapentin 100 mg oral capsule)?TAKE 1 CAPSULE BY MOUTH THREE TIMES DAILY IN THE MORNING, EVENING, AND BEDTIME Hydrochlorothiazide (hydrochlorothiazide 12.5 mg oral tablet)?TAKE 1 TABLET BY MOUTH EVERY MORNING Montelukast (Singulair 10 mg oral tablet)?1?tab(s)?10?Milligram?By Mouth?Daily inPM Sertraline (sertraline 50 mg oral tablet)?1?tab(s)?50?Milligram?By Mouth?Daily Tiotropium (Spiriva HandiHaler 18 mcg ??Inhalation Capsule)?1?capsule?18?Microgram?Inhalation?Daily Tiotropium (Spiriva HandiHaler 18 mcg inhalation capsule)?USE 1 CAPSULE FOR INHALATION ONCE A DAY DO NOT SWALLOW CAPSULE ? Results Recent Labs No labs resulted between 03/14/2023 00:00 and 03/15/2023 19:17? Cardiology * Event Display: Cardiac Rhythm Strips Authored Date: * Event Display: Cardiac Rhythm Strips Authored Date: * Event Display: Outside Images Echo Images acquired from non-[facility] facility Demographics Patient Name NILA VALADEZ Gender Female [employer] BSA 1.51 m2 Date of 1960 Age 62 year(s) Accession Number [id number] Procedure Procedure Type Outside Images:Outside Images Echo * Event Display: Outside Images Echo Hospital Progress note * Heather Bean LPN: PERFORM, SIGN, VERIFY Event Display: Progress Note Hospital Authored Date: Patient: TING KEITH Age: 62 years Sex: Female : 1960 Associated Diagnoses: None Author: Heather Bean LPN Findings Problem Related to Alteration in Cardiac Function (new) : Alteration in Cardiac Function/new 03/16/2023 22:00 EST Alteration in Cardiac Status Related to Cardiac Procedure, Other: severe aorticstenosis/tavr workup and pacemaker battery change Goals & Outcomes, Cardiac Status Pt will resume/maintain adequate cardiac output, Pt will resume/maintain adequate hemodynamic status, Pt will resume/maintain adequate respiratory function Cardiac Interventions Implemented Assess/monitor cardiac status, Assess/monitor neuro status, Assess/monitor respiratory status, If no bowel movement in 3 days activate bowel regime, Monitor & document daily weight BH Goals/Interventions, Cardiac Yes Cardiac, Problem Start 03/15/2023 22:30 Reviewed Plan with, Cardiac Status Patient Patient Progression, Cardiac Status Patient progressing according to plan . Nursing Data Cardiac Data. : Cardiac Data. 03/16/2023 21:30 EST Cardiovascular Symptoms None Pacemaker Yes Cardiac Rhythm Paced Capillary Refill < 3 seconds tavern keeper Yes Cardiovascular WNL except . Respiratory/Pulmonary Data. : Respiratory/Pulmonary Data. 03/16/2023 21:30 EST Cough Productive, Occasional Left Upper Lobe Breath Sounds Diminished Right Upper Lobe Breath Sounds Diminished Right Middle Lobe Breath Sounds Wheezing, expiratory Left Lower Lobe Breath Sounds Diminished Right Lower Lobe Breath Sounds Wheezing, expiratory Respiratory WNL except . Vital Signs : VITAL SIGNS SECTION 03/16/2023 20:11 EST Temperature 98.7 DegF Temperature Route Temporal Pulse Rate 64 bpm Respiratory Rate 20 br/min Systolic Blood Pressure 119 mm Hg Diastolic Blood Pressure 74 mm Hg Blood pressure sites Arm, left Mean Arterial Pressure 89 mm Hg Pulse Pressure 45 mm Hg Oxygen Saturation 95 % Mode of Delivery (Oxygen) Room air . Psychosocial : Psychosocial Data. 03/16/2023 22:00 EST Affect/Behavior Appropriate, Calm, Cooperative . Evaluation Pleasant is A&OX3, Bhutanese speaking but can make her needs known. Pace on tele, no c/o pain, chest pain, dizziness chest pressure or sob. VSS and expiratory wheeze in the right lobes, DuoNeb treatment given per APR. OOB 1 assist to bathroom. Call basilio at bedside.. * Mely CASTELLANOS, Marcella: VERIFY, PERFORM, SIGN Event Display: Progress Note Hospital Authored Date: Patient: TING KEITH Age: 62 years Sex: Female : 1960 Associated Diagnoses: None Author: Mely CASTELLANOS, Marcella Findings Problem Related to Alteration in Cardiac Function (new) : Alteration in Cardiac Function/new 03/16/2023 9:00 EST Alteration in Cardiac Status Related to Cardiac Procedure, Other: severe aortic stenosis/tavr workup and pacemaker battery change Goals & Outcomes, Cardiac Status Pt will resume/maintain adequate cardiac output, Pt will resume/maintain adequate hemodynamic status, Pt will resume/maintain adequate respiratory function Cardiac Interventions Implemented Assess/monitor cardiac status, Assess/monitor respiratory status Goals/Interventions, Cardiac Yes Cardiac, Problem Start 03/15/2023 22:30 Reviewed Plan with, Cardiac Status Patient Patient Progression, Cardiac Status Patient progressing according to plan . Pt alert and oriented, forgetful. Denies pain. Ind in room, skin intact. Takes pills whole. Tolerating diet. ACHS. Receiving scheduled neb treatments. Plan for TAVR workup. * Glenis CARREON, Shiloh: PERFORM, MODIFY, MODIFY, MODIFY Jordyn Treviño: MODIFY, MODIFY Jordyn Treviño: MODIFY, MODIFY Hudson , Jordyn: MODIFY, MODIFY Hudson , Jordyn: MODIFY, MODIFY Hudson Darlyna: MODIFY, MODIFY Hudson SherwinJordyn: MODIFY, MODIFY Hudson SherwinJordyn: MODIFY, MODIFY Hudson SherwinJordyn: MODIFY, MODIFY Hudson SherwinJordyn: MODIFY, MODIFY Hudson Darlyna: MODIFY, MODIFY Hudson Darlyna: MODIFY Event Display: Progress Note Hospital Authored Date: Patient: ??TING KEITH ? Age:??62 Years?Sex:??Female?:??1960?? Subjective Ting arrived from [facility] overnight with??dyspnea, satting??97% on room air. She says that she slept okay and has been feeling much better compared to how she felt at [place]. She is not inpain and has no SOB or chest pressure. Ting is able to ambulate??unassisted between her bed and bathroom and only uses a walker when she is in pain. NPO since midnight awaiting potential procedure to day as of morning rounds, awaiting cardiology consult for today's plan. Review of Systems Pertinent ROS noted above in HPI. Objective Vital Signs?? Temperature: 97.4 DegF (03/16/23 07:20:00) Temperature Route: Temporal (03/16/23 07:20:00) Pulse Rate: 74 bpm (03/16/23 07:20:00) Respiratory Rate: 18 br/min (03/16/23 07:20:00) Systolic Blood Pressure: 137 mm Hg (03/16/23 07:20:00) Diastolic Blood Pressure:??86 mm Hg??High (03/16/23 07:20:00) Blood pressure sites: Arm, left (03/16/23 07:20:00) Mean Arterial Pressure: 103 mm Hg (03/16/23 07:20:00) Pulse Pressure: 51 mm Hg (03/16/23 07:20:00) Oxygen Saturation: 95 % (03/16/23 07:20:00) Mode of Delivery (Oxygen): Room air (03/16/23 07:20:00) Early Warning Score: 4 (03/16/23 07:49:15) ? Intake/Output? 03/15 18:28 03/16 07:00 03/15 07:00 03/14 07:00 03/13 07:00 ?? 03/16 08:28 03/16 08:28 03/16 06:59 03/15 06:59 03/14 06:59 Intake ?180 ?0 ?180 ?0 ?0 Output ?0 ?0 ?0 ?0 ?0 Net Total ?180 ?0 ?180 ?0 ?0 ? Urine Count ?2 ?0 ?2 ?0 ?0 ? Physical Exam Constitutional: Alert, in no distress. Eyes:??Extraocular muscles intact. Ear, Nose and Throat: Mucous membranes moist. Respiratory:??End-inspiratory wheezes at lung bases BL. No rales or rhonchi.??Dry cough at times when speaking Cardiovascular:??RRR (has pacemaker).??Grade IV-V/ systolic murmur heard throughout precordium?? Neurologic: Cranial nerves II-XII grossly intact. No focal neurological deficits.??Moves all extremities spontaneously.?? Skin: No visible??rashes,??lesions,??petechiae or purpura.?? Musculoskeletal:??No gross deformities. Normal range of motion. Psychiatric: Normal mood and affect.?? Results Recent Labs BLOOD COUNT & DIFF WBC 14.2 k/mm3 (High)?? 03/16/2023 06:59 RBC 4.28 m/mm3 ()?? 03/16/2023 06:59 Hgb 11.9 Gm/dL ()?? 03/16/2023 06:59 Hct 38.3 % ()?? 03/16/2023 06:59 MCV 89.5 femtoliters ()?? 03/16/2023 06:59 MCH 27.8 pg ()?? 03/16/2023 06:59 MCHC 31.1 g/dL (Low)?? 03/16/2023 06:59 Platelet Count 425 k/mm3 ()?? 03/16/2023 06:59 RDW-SD 49.6 femtoliters (High)?? 03/16/2023 06:59 MPV 10.2 femtoliters ()?? 03/16/2023 06:59 Nucleated RBC (Automated) 0.0 #/100 WBC'S ()?? 03/16/2023 06:59 Abs. NRBC 0.0 k/mm3 ()?? 03/16/2023 06:59 ?? CHEM GENERAL Sodium 141 mmol/L ()?? 03/16/2023 07:02 Potassium 4.6 mmol/L ()?? 03/16/2023 07:02 Chloride 103 mmol/L ()?? 03/16/2023 07:02 Bicarbonate Level 29 mmol/L ()?? 03/16/2023 07:02 Anion Gap 9 ()?? 03/16/2023 07:02 Glucose Level 93 mg/dL ()?? 03/16/2023 07:02 Glucose, POC 126 mg/dL (High)?? 03/15/2023 20:35 BUN 22 mg/dL ()?? 03/16/2023 07:02 Creatinine-Blood 0.5 mg/dL ()?? 03/16/2023 07:02 Estimated GFR Creatinine 106 ML/MIN/1.73 M2 ()?? 03/16/2023 07:02 Calcium 9.4 mg/dL ()?? 03/16/2023 07:02 Magnesium 1.9 mg/dL ()?? 03/16/2023 07:02 ?? COAG INR 1.1 ()?? 03/16/2023 06:59 Protime (PT) 11.2 seconds ()?? 03/16/2023 06:59 APTT 24.6 seconds ()?? 03/16/2023 06:59 ?? URINE OTHER Est Creatinine Clearance 81.84 mL/min ()?? 03/16/2023 07:49 ? Abnormal Labs ?? BLOOD COUNT & DIFF ??Abs. NRBC ??0.0 k/mm3 () ??03/16/2023 06:59 ??MCHC ??31.1 g/dL (Low) ??03/16/2023 06:59 ??Nucleated RBC (Automated) ??0.0 #/100 WBC'S () ??03/16/2023 06:59 ??RDW-SD ??49.6 femtoliters (High) ??03/16/2023 06:59 ??WBC ??14.2 k/mm3 (High) ??03/16/2023 06:59 ? CHEM GENERAL ??Estimated GFR Creatinine ??106 ML/MIN/1.73 M2 () ??03/16/2023 07:02 ??Glucose, POC ??126 mg/dL (High) ??03/15/2023 20:35 ? Note: Critical results are displayed in red. ? 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 for a chief complaint of??acute on chronic dyspnea??secondary to a mild asthma/COPD exacerbation??as well as further evaluation of severe aortic stenosis. ?? Severe aortic valve stenosis H/o endocarditis s/p aortic valve homograft Complete heart block s/p pacemaker TTE at [facility] on 03/15: LVEF 60-65%, no WMA, indeterminate diastolic function;??Severe aortic valve stenosis with peak aortic velocity 4.57 m/s with calculated peak gradient 83 mmHg, mean gradient 42 mmHg, mild aortic valve regurgitation. Report notes that measured valve area >1 cm2 is likely erroneous (falsely increased) due to high LVOT??VTI measurement. Severe likely contributing to patient's??chronic dyspnea on exertion. 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 Wolff for further evaluation of severe??,??consideration of TAVR. Also overdue for pacemaker??generator change??(patient missed her??recent appointment to do this outpatient). No acute arrhythmia or concern for??ACS.?? HDS and well-perfused on exam. Dr. Segovia from TAVR team assessed the patient on 03/16 and believes that this is mostly a COPD flare rather than primarily from her and is directing her workup. Pacemaker interrogated 03/16 and estimated to have 6 months charge left. ?? Plan: -Cardiology ordered CTA in preparation for valve replacement to occur at a future time. TAVR will likely not occur during this hospital stay.?? -Cardiology will obtain records from patient's clip on sunglasses inspector and follow up with patient in 3 months -Resume Plavix -Patient shares that she has been missing her outpatient cardiology appointments due to??lack of transportation.?? Should have PCP follow-up??and ideally PT-1 transportation arranged. ? Respiratory distress, dyspnea -improving Asthma/COPD with??mild acute exacerbation Prior tobacco use in early remission Acute on chronic dyspnea in the setting of??asthma/COPD??as well as severe aortic stenosis. Unclear if she carries a diagnosis of asthma or COPD. Patient reports that she has asthma.??She is on home inhalers that suggest??COPD and she has??a??long??smoking history, but happy to report for that she??quit smoking 2 months ago. Reports of cigarette smoking cessation but current vaping per [facility] records. Her breathing feels back to baseline??upon arrival to [facility].?No fever,??focal findings on CXR, or??increased sputum production. No leukocytosis on admission, WBC 14.2 on 03/16 up from 8.2 on 03/14. Likely due to initiation of corticosteroid treatment. Sats 95-97% on room air. [facility] records state h/o MARY with CPAP use. No reports of desats while inpatient per nurse checks, but SpO2 not continuously monitored or indicated at this time. ?? Plan: -Prednisone 40 mg x3 days??to complete 5-day course (Stop date 03/20) -Scheduled DuoNebs 4 times daily and albuterol as needed -Has Advair and Spiriva??prescribed but does not take at home. Will provide Breo Ellipta??inpatient,??will need??education on??proper use of inhalers at home prior to DC -Continue home Singulair 10 mg QD -Track WBC, pursue further workup if symptoms of infection??develop -Hold antibiotics at this time, can consider??azithromycin if??respiratory status??worsens -Currently on room air,??O2 sat goal 88-92% -Patient declines??NRT, not having nicotine cravings??currently -Patient will follow up??with PCP??regarding MARY/CPAP ? Chronic/stable: Type II DM??not on long-term insulin:??Normoglycemic since presentation??to [facility].?? Lispro SS??and POCG??3 times daily + bedtime, hypoglycemia measures in place Depression: Continue home sertraline 50 mg and amitriptyline??25 mg daily HTN:??Continue home hydrochlorothiazide 12.5 mg daily Chronic back pain: Continue home gabapentin 100 mg 3 times daily ? Quality Measures VTE Prophlylaxis: Lovenox 40mg Code Status: Full code, discussed on admission. Diet: Cardiac diabetic OMN:??Evaluation of , management of asthma/COPD, transportation to medical appointments Med rec: Performed with patient and use of external med rec review HCP: Brother Kira Keith. Did not reach at time of admission. ? Note completed with assistance from Jordyn Treviño, MS3. ? Patient case and plan discussed with ??Gabriella?? Shiloh Galvin MD?? Internal Medicine-Pediatrics PGY-1 Pager: [phone]?? * Jin Quiroz MD: PERFORM Event Display: Progress Note Hospital Authored Date: [id number] Attending Attestation: This note was completed with the aid of a medical student and reviewed by the resident. ??I personally performed all components of the visit independently or in the presence ofthe medical student and/or resident including the history of present illness, examination and medical decision making. ??The note has been verified for accuracy and redocumented as needed ?? Consult note * Luca CARREON, Victorino Braun: PERFORM Event Display: Consultation Note Authored Date: [id number] Patient: ??TING KEITH ? Age:??62 Years?Sex:??Female?:??1960?? Patient Hx Provider Clinical Summary Asked by Dr. Wolff to see for prosthetic aortic stenosis. ?? 62-year-old female with prior history of DM 2, hypertension, COPD, smoking, anxiety/depression, infective endocarditis status post aortic root homograft, heart block status post pacemaker, who presents for evaluation of severe aortic stenosis.? In 2004, the patient presented with Staph aureus bacteremia in the context of IV drug abuse.?? 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 She did undergo aortic valve replacementwith a 21 mm homograft.?In the postop setting, a dual-chamber pacemaker was placed.?? Within several months, she did have positive occult cultures and this was removed.?? A single-chamber pacemaker was placed. ?? The patient is a vague historian.?? She does not answer questions directly.?? It seems like she hasa history of asthma/COPD.?? She says that her asthma has gotten worse recently.?? At least for the past year it seems to be acting up more.?? It is hard to know if she has intervening times of good breathing.?? She thinks that her walking distance is mostly the same.?? She does follow with Dr. Simpson at [facility].?? She did come to the hospital in 03/21 for breathing difficulties that she attributes to her COPD.?? This is associated with cough.?? Denies any lower extremity edema.?? She does have PND.?? She has no angina or syncope.?? She did have a repeat echocardiogram at that time which showed elevated mean gradient.?? This was in the context of an LVOT VTI that was quite high.?? The dimensionless index was between 0.4 and 0.5.?? Her valve area is calculated 0.9 to 1.3 cm??. ?? Echocardiographic images were reviewed.?? LV is normal size with normal function.?? RV is normal size with normal function.?? The aortic valve homograft is quite calcified with restricted leaflet motion.?? There is trivial to mild aortic insufficiency.?? Peak and mean gradients 78/39 mmHg, LVOT VTIis 39.9 cm, with a dimensionless index of about 0.5.?? The aortic valve area is calculated at 0.9- 1.3 cm??. ?? Cardiac cath from 2019 was reviewed.?? This showed that she had angiographically normal coronaryarteries. Physical Exam Vitals & Measurements T:??97.8?F?? HR:??90??(Peripheral)?? RR:??22?? BP:??117/89?? SpO2:??98%?? HT:??150??cm?? WT:??56.6??kg?? BMI:??24.98?? Weight lb/oz: 124 lb 12 oz CONST: Appears stated age, no acute distress,??short stature, normal habitus EYES: Anicteric, nl conjunctivae ENT: Nl oropharynx NECK: JVP 5 CV: PMI nl. RRR, nl s1 s2, ??murmur. Carotid, femoral, pedal pulses nl and symmetric, no bruits. ??Nl aortic pulsation. ??No edema RESP: inspiratory squeaks, some wheezing. GI: Soft, NT/ND, no HSM. 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 The patient is admitted to the hospital with dyspnea.?? She has a history of asthma/COPD.?? On examination, her presentation seems to be consistent with COPD.?? However, she did have an updated echocardiogram which shows worsening aortic valve parameters.?? The mean gradient has increased to 39 mmHg.?? However, this is in the context of an elevated LVOT VTI, suggesting a high output state.?? I amnot certain whether or not her valve is bad enough to contribute to her symptoms.?? It is possible,although I am not yet convinced.?? I suggested that we do a TAVR CTA in preparation for possible valve replacement sometime in the near future.?? That is all the testing I would do at this time.?? Wecould do other evaluations for her valve side including NEFTALI, but I would forego this for now.?? I will obtain records from her clip on sunglasses inspector office for her last office note as well as last PFTs.?? I will have her back in the office for reassessment sometime in the near future. ?? 1.?? TAVR protocol CTA 2.?? My office will reach out to Dr. Simpson to obtain the last PFTs and office evaluation ?? Follow-up with me in 3 months Allergies aspirin ciprofloxacin shellfish??(hives) Home Medications Albuterol: 1 puffs, Inhalation, 4 times a day, PRN (for wheezing) amiTRIPTYLINE: TAKE 1 TABLET BY MOUTH AT BEDTIME Clopidogrel: 75 mg = 1 tablet, By Mouth, Daily Cyanocobalamin: TAKE 1 TABLET BY MOUTH EVERY MORNING Docusate: 100 mg, By Mouth, 2 times a day Fluticasone-Salmeterol: 1 puffs, Inhalation, 2 times a day Folic Acid: TAKE 1 TABLET BY MOUTH EVERY MORNING Gabapentin: TAKE 1 CAPSULE BY MOUTH THREE TIMES DAILY IN THE MORNING, EVENING, AND BEDTIME Hydrochlorothiazide: TAKE 1 TABLET BY MOUTH EVERY MORNING Montelukast: 10 mg = 1 tablet, By Mouth, Daily in PM Sertraline: 50 mg = 1 tablet, By Mouth, Daily Tiotropium: 18 mcg = 1 capsule, Inhalation, Daily Tiotropium: USE 1 CAPSULE FOR INHALATION ONCE A DAY DO NOT SWALLOW CAPSULE Hospital Medications Medications (33) Active SCHEDULED: (14) Albuterol/Ipratropium Inhalation Isabela 3mL (Duoneb Inhalation Solution) ??1 vials, BAND Nebulizer, 4 times a day Amitriptyline 25 mg Tablet (amitriptyline 25 mg oral tablet) ??25 mg, By Mouth, Daily at bedtime Breo Ellipta 200 mcg / 25 mcg Inhaler (Breo Ellipta 200 mcg-25 mcg Inhaler) ??1 puffs, Inhalation, Daily Clopidogrel 75 mg Tablet (clopidogrel 75 mg oral tablet) ??75 mg, By Mouth, Daily Enoxaparin 40 mg Inj (Enoxaparin Inj) ??40 mg 0.4 mL, Subcutaneous Injection, Daily Folic Acid 1 mg Tablet (folic acid 1 mg oral tablet) ??1 mg, By Mouth, Daily Gabapentin 100 mg Capsule (gabapentin 100 mg oral capsule) ??100 mg, By Mouth, 3 times a day Hydrochlorothiazide 25 mg Tablet (hydrochlorothiazide 25 mg oral tablet) ??12.5 mg, By Mouth, Daily Insulin Lispro 100 units/mL Inj (3mL) (Insulin LISPRO Sliding Scale) ??2-10 units, Subcutaneous Injection, 3 times a day before meals Montelukast 10 mg Tablet (Singulair 10 mg oral tablet) ??10 mg, By Mouth, Daily at supper NaCl 0.9% Flush 3ml (NaCL 0.9% Flush) ??3 mL, IV Push, Every 8 hours PredniSONE 20 mg Tablet (predniSONE 20 mg oral tablet) ??40 mg, By Mouth, Daily Sertraline 50 mg Tablet (sertraline 50 mg oral tablet) ??50 mg, By Mouth, Daily Vitamin B-12 ??1000 mcg Tablet (Vitamin B-12 1000 mcg oral tablet) ??1,000 mcg, By Mouth, Daily CONTINUOUS: (0) PRN: (19) Acetaminophen 325 mg Tablet (Acetaminophen Tablet) ??650 mg, By Mouth, Every 4 hours Albuterol 0.083% Inhalation Solution (Albuterol 0.083% inhalation isabela) ??2.5 mg 3 mL, BAND Nebulizer, Every 4 hours Dextromethorphan-Guaifenesin 20 mg-200 mg/10 mL Liqu UD (Robitussin DM Liquid) ??10 mL, By Mouth, Every 4 hours Dextrose Inj Syringe (Dextrose 50% Inj Syringe (25Gm)) ??12.5 Gm, IV Push Slowly, Every 20 minutes Dextrose Inj Syringe (Dextrose 50% Inj Syringe (25Gm)) ??25 Gm, IV Push Slowly, Every 15 minutes Dextrose Inj Syringe (Dextrose 50% Inj Syringe (25Gm)) ??12.5 Gm, IV Push Slowly, Every 20 minutes Dextrose Inj Syringe (Dextrose 50% Inj Syringe (25Gm)) ??25 Gm, IV Push Slowly, Every 15 minutes Docusate Sodium 100 mg Capsule (Docusate Sodium Capsule) ??100 mg 1 capsule, By Mouth, 2 times a day Glucagon 1 mg Inj (Glucagon Inj) ??1 mg, Intramuscular, Once Glucagon 1 mg Inj (Glucagon Inj) ??1 mg, Intramuscular, Once Glucose 40% Gel (15 Gm) (Glucose Gel) ??15 Gm, By Mouth, Every 20 minutes Glucose 40% Gel (15 Gm) (Glucose Gel) ??30 Gm, By Mouth, Every 20 minutes Glucose 40% Gel (15 Gm) (Glucose Gel) ??15 Gm, By Mouth, Every 20 minutes Glucose 40% Gel (15 Gm) (Glucose Gel) ??30 Gm, By Mouth, Every 20 minutes Melatonin 3 mg Tablet (Melatonin Tablet) ??3 mg, By Mouth, Daily at bedtime NaCl 0.9% Flush 3ml (NaCL 0.9% Flush) ??3 mL, IV Push, Every 8 hours Polyethylene Glycol 17 Gm Powder (MiraLax Powder) ??17 Gm 1 pack/packet, By Mouth, Daily Senna Tablet ??8.6 mg 1 tablet, By Mouth, 2 times a day Simethicone 80 mg Chewable Tablet (Simethicone Tablet) ??80 mg, Chew, 3 times a day Lab Results Cardiology Labs WBC:??14.2 k/mm3??High (03/16/23) RBC: 4.28 m/mm3 (03/16/23) Hgb: 11.9 Gm/dL (03/16/23) Hct: 38.3 % (03/16/23) MCV: 89.5 femtoliters (03/16/23) MCH: 27.8 pg (03/16/23) MCHC:??31.1 g/dL??Low (03/16/23) Platelet Count: 425 k/mm3 (03/16/23) RDW-SD:??49.6 femtoliters??High (03/16/23) Nucleated RBC (Automated): 0 #/100 WBC'S (03/16/23) INR: 1.1 (03/16/23) Protime (PT): 11.2 seconds (03/16/23) APTT: 24.6 seconds (03/16/23) Sodium: 141 mmol/L (03/16/23) Potassium: 4.6 mmol/L (03/16/23) Chloride: 103 mmol/L (03/16/23) Bicarbonate Level: 29 mmol/L (03/16/23) Glucose Level: 93 mg/dL (03/16/23) BUN: 22 mg/dL (03/16/23) Creatinine-Blood: 0.5 mg/dL (03/16/23) Calcium: 9.4 mg/dL (03/16/23) Diagnostic Impression Echo Echocardiogram - Complete ?? 14:40:37 Summary The left ventricular size is normal. The left ventricular wall thickness is normal. The LV systolic function is mildly reduced. The left ventricular ejection fraction is 40-45%. ?? There is homograft in the aortic position, which is not well visualized. The valve appears calcified. There is moderate aortic stenosis. The mean gradient is 15 mmHg, with a dimensionless index .34. There is mild aortic regurgitation. ?? The mitral valve appears normal. There is mild mitral regurgitation. There is no mitral stenosis. ?? The right ventricle is normal in size and function. ?? Comparison Comparison is made to the study of October 07, 2019. Left ventricular systolic function is worse since previous study. ?? Signature ?? Signed By: Mica CARREON, Javon Patterson Problem List/Past Medical History Ongoing Aortic valve disorder Arthritis Asthma Back pain Diabetes mellitus Hypertension Procedure/Surgical History Echocardiogram Social History Alcohol Use: Never. Employment/School Status: Disabled. Exercise Other: as much as she can. Regular exercise: Yes. Home/Environment Living situation: Home/Independent. Lives with: Alone. Nutrition/Health Diet: Diabetic. Other: no sugar,. Caffeine intake amount: 1 cup a day. Feels highly stressed: No. Substance Abuse Use: Never. Tobacco Current every day smoker, Tobacco user in household: Yes. Family History No family history recorded. * Bucky CARREON, [place]: PERFORM, MODIFY, MODIFY, MODIFY, MODIFY, MODIFY Event Display: Consultation Note Authored Date: [id number] Patient: ??TING KEITH ? Age:??62 Years?Sex:??Female?:??1960?? History of Present Illness/Interval History ? 62-year-old Bhutanese-speaking female with history of type 2 diabetes mellitus, hypertension, asthma/COPD, current smoker, anxiety/depression, infective endocarditis status post aortic valve root homograft in 2004 and history of complete heart block status post pacemaker who presented as a moreno sfer from [facility] for acute exacerbation of asthma and COPD and for further workup of severe aortic stenosis. ?? Patient went to [facility] on 03/14 for dyspnea and wheezing.?? She was noted to be hypoxic 92% on room air. Labs revealed unremarkable CBC, normal electrolytes, creatinine 0.66, normal LFTs, expanded respiratory viral panel negative. Noted to have wheezing and shortness of breath which was attributed to acute asthma/COPD exacerbation.?? Chest XR was without consolidations, effusions, or pulmonary vascular congestion. ECG with v-paced rhythm rate 61, no acute ischemic changes. She was started on IV Solu-Medrol 40 mg BID (2 doses given) and Duonebs. ?? Besides that, an echocardiogram was ordered which revealed: ?? LVEF 60-65%, no WMA, indeterminate diastolic function; Severe aortic valve stenosis with peak aortic velocity 4.57 m/s with calculated peak gradient 83 mmHg, mean gradient 42 mmHg, mild aortic valve regurgitation. Report notes that measured valve area >1 cm2 is likely erroneous (falsely increased) due to high LVOT VTI measurement. ?? Because of severe??aortic valve stenosis, decision was made to transfer the patient to [facility] for??further workup. It was also noted that patient is overdue for a pacemaker generator exchange; per last device assessment in Sep 2022, there were 10 months of battery left at that time and patient missed several appointments including a planned battery exchange last week. ?? On presentation to [facility], Vitals were normal physiologic limits.?? EKG revealed V paced??rhythm.?? Patient denies any chest pain, syncopal episodes weakness, numbness, tingling.?? She reports her main complaint is??cough??and dyspnea??which is in the setting of acute exacerbation of??COPD. Review of Systems Negative except above Physical Exam Vitals & Measurements T:??97.4?F?? HR:??74??(Peripheral)?? RR:??18?? BP:??137/86?? SpO2:??95%?? HT:??150??cm?? WT:??56.6??kg?? BMI:??24.98?? Weight lb/oz: 124 lb 12 oz Constitutional: Alert, in no distress. Mental Status: Oriented to person, place and time. Head: Normocephalic. Eyes: Pupils are equal, round and reactive to light. Extraocular muscles intact. Ear, Nose and Throat: Oropharynx clear, mucous membranes moist. Ears and nose without masses, lesions or deformities. Trachea midline. Neck: Supple, Full range of motion. Respiratory: Clear to auscultation. ??Mild??bilateral wheezing appreciated Cardiovascular: Regular rate,??3/6 crescendo decrescendo??ejection systolic murmur appreciated throughout the precordium??radiating to carotids bilaterally. Gastrointestinal: Abdomen soft, non-tender, non-distended. Normal bowel sounds. No pulsatile mass. No hepatosplenomegaly. Assessment/Plan In summary, 62-year-old female with pertinent past medical history of diabetes mellitus, hypertension, asthma/COPD, current smoker, anxiety/depression, infective endocarditis status post aortic valveroot homograft in 2004,??heart block status post pacemaker??who was admitted to[facility] for??acute exacerbation of COPD.?? Transthoracic echocardiogram revealed??severe aortic valve stenosis with??peak aortic valve??velocity??4.57 m/s, peak gradient 83 mmHg, mean gradient 42 mmHg.?As per her last device interrogation, Patient's remaining device longevity is 10 months (interrogation done on October 04, 2022).??Patient was transferred??to [facility] for??further??ken luation of??severe aortic stenosis. ?? -We will consult??TAVR team??to start??inpatient??TAVR process. ??Unfortunately, patient has missed??cardiology appointments??outpatient on frequent occasions.?? It will be prudent to start the TAVR??process??in-house??in the setting of??severe aortic stenosis. -Will also recommend device interrogation??to assess??device remaining longevity??as patient??will probably??need a generator??change??in near future, probably during this hospitalization. -Our service will continue to follow. ??Please do not hesitate to reach out for any additional questions. ?? Cheyenne Lawler MD Cardiovascular Disease Fellow, PGY-4 [facility] [address], [place] [address] Allergies aspirin ciprofloxacin shellfish??(hives) Home Medications Albuterol: 1 puffs, Inhalation, 4 times a day, PRN (for wheezing) amiTRIPTYLINE: TAKE 1 TABLET BY MOUTH AT BEDTIME Clopidogrel: 75 mg = 1 tablet, By Mouth, Daily Cyanocobalamin: TAKE 1 TABLET BY MOUTH EVERY MORNING Docusate: 100 mg, By Mouth, 2 times a day Fluticasone-Salmeterol: 1 puffs, Inhalation, 2 times a day Folic Acid: TAKE 1 TABLET BY MOUTH EVERY MORNING Gabapentin: TAKE 1 CAPSULE BY MOUTH THREE TIMES DAILY IN THE MORNING, EVENING, AND BEDTIME Hydrochlorothiazide: TAKE 1 TABLET BY MOUTH EVERY MORNING Montelukast: 10 mg = 1 tablet, By Mouth, Daily in PM Sertraline: 50 mg = 1 tablet, By Mouth, Daily Tiotropium: 18 mcg = 1 capsule, Inhalation, Daily Tiotropium: USE 1 CAPSULE FOR INHALATION ONCE A DAY DO NOT SWALLOW CAPSULE Hospital Medications Medications (31) Active SCHEDULED: (12) Albuterol/Ipratropium Inhalation Isabela 3mL (Duoneb Inhalation Solution) ??1 vials, BAND Nebulizer, 4 times a day Amitriptyline 25 mg Tablet (amitriptyline 25 mg oral tablet) ??25 mg, By Mouth, Daily at bedtime Breo Ellipta 200 mcg / 25 mcg Inhaler (Breo Ellipta 200 mcg-25 mcg Inhaler) ??1 puffs, Inhalation, Daily Folic Acid 1 mg Tablet (folic acid 1 mg oral tablet) ??1 mg, By Mouth, Daily Gabapentin 100 mg Capsule (gabapentin 100 mg oral capsule) ??100 mg, By Mouth, 3 times a day Hydrochlorothiazide 25 mg Tablet (hydrochlorothiazide 25 mg oral tablet) ??12.5 mg, By Mouth, Daily Insulin Lispro 100 units/mL Inj (3mL) (Insulin LISPRO Sliding Scale) ??2-10 units, Subcutaneous Injection, 3 times a day before meals Montelukast 10 mg Tablet (Singulair 10 mg oral tablet) ??10 mg, By Mouth, Daily at supper NaCl 0.9% Flush 3ml (NaCL 0.9% Flush) ??3 mL, IV Push, Every 8 hours PredniSONE 20 mg Tablet (predniSONE 20 mg oral tablet) ??40 mg, By Mouth, Daily Sertraline 50 mg Tablet (sertraline 50 mg oral tablet) ??50 mg, By Mouth, Daily Vitamin B-12 ??1000 mcg Tablet (Vitamin B-12 1000 mcg oral tablet) ??1,000 mcg, By Mouth, Daily CONTINUOUS: (0) PRN: (19) Acetaminophen 325 mg Tablet (Acetaminophen Tablet) ??650 mg, By Mouth, Every 4 hours Albuterol 0.083% Inhalation Solution (Albuterol 0.083% inhalation isabela) ??2.5 mg 3 mL, BAND Nebulizer, Every 4 hours Dextromethorphan-Guaifenesin 20 mg-200 mg/10 mL Liqu UD (Robitussin DM Liquid) ??10 mL, By Mouth, Every 4 hours Dextrose Inj Syringe (Dextrose 50% Inj Syringe (25Gm)) ??12.5 Gm, IV Push Slowly, Every 20 minutes Dextrose Inj Syringe (Dextrose 50% Inj Syringe (25Gm)) ??25 Gm, IV Push Slowly, Every 15 minutes Dextrose Inj Syringe (Dextrose 50% Inj Syringe (25Gm)) ??12.5 Gm, IV Push Slowly, Every 20 minutes Dextrose Inj Syringe (Dextrose 50% Inj Syringe (25Gm)) ??25 Gm, IV Push Slowly, Every 15 minutes Docusate Sodium 100 mg Capsule (Docusate Sodium Capsule) ??100 mg 1 capsule, By Mouth, 2 times a day Glucagon 1 mg Inj (Glucagon Inj) ??1 mg, Intramuscular, Once Glucagon 1 mg Inj (Glucagon Inj) ??1 mg, Intramuscular, Once Glucose 40% Gel (15 Gm) (Glucose Gel) ??15 Gm, By Mouth, Every 20 minutes Glucose 40% Gel (15 Gm) (Glucose Gel) ??30 Gm, By Mouth, Every 20 minutes Glucose 40% Gel (15 Gm) (Glucose Gel) ??15 Gm, By Mouth, Every 20 minutes Glucose 40% Gel (15 Gm) (Glucose Gel) ??30 Gm, By Mouth, Every 20 minutes Melatonin 3 mg Tablet (Melatonin Tablet) ??3 mg, By Mouth, Daily at bedtime NaCl 0.9% Flush 3ml (NaCL 0.9% Flush) ??3 mL, IV Push, Every 8 hours Polyethylene Glycol 17 Gm Powder (MiraLax Powder) ??17 Gm 1 pack/packet, By Mouth, Daily Senna Tablet ??8.6 mg 1 tablet, By Mouth, 2 times a day Simethicone 80 mg Chewable Tablet (Simethicone Tablet) ??80 mg, Chew, 3 times a day Lab Results Cardiology Labs WBC:??14.2 k/mm3??High (03/16/23) RBC: 4.28 m/mm3 (03/16/23) Hgb: 11.9 Gm/dL (03/16/23) Hct: 38.3 % (03/16/23) MCV: 89.5 femtoliters (03/16/23) MCH: 27.8 pg (03/16/23) MCHC:??31.1 g/dL??Low (03/16/23) Platelet Count: 425 k/mm3 (03/16/23) RDW-SD:??49.6 femtoliters??High (03/16/23) Nucleated RBC (Automated): 0 #/100 WBC'S (03/16/23) INR: 1.1 (03/16/23) Protime (PT): 11.2 seconds (03/16/23) APTT: 24.6 seconds (03/16/23) Sodium: 141 mmol/L (03/16/23) Potassium: 4.6 mmol/L (03/16/23) Chloride: 103 mmol/L (03/16/23) Bicarbonate Level: 29 mmol/L (03/16/23) Glucose Level: 93 mg/dL (03/16/23) BUN: 22 mg/dL (03/16/23) Creatinine-Blood: 0.5 mg/dL (03/16/23) Calcium: 9.4 mg/dL (03/16/23) Diagnostic Impression Echo Echocardiogram - Complete ?? 14:40:37 Summary The left ventricular size is normal. The left ventricular wall thickness is normal. The LV systolic function is mildly reduced. The left ventricular ejection fraction is 40-45%. ?? There is homograft in the aortic position, which is not well visualized. The valve appears calcified. There is moderate aortic stenosis. The mean gradient is 15 mmHg, with a dimensionless index .34. There is mild aortic regurgitation. ?? The mitral valve appears normal. There is mild mitral regurgitation. There is no mitral stenosis. ?? The right ventricle is normal in size and function. ?? Comparison Comparison is made to the study of October 07, 2019. Left ventricular systolic function is worse since previous study. ?? Signature ?? Signed By: Javon Nino MD Problem List/Past Medical History Ongoing Arthritis Asthma Back pain Diabetes mellitus Hypertension Procedure/Surgical History Echocardiogram Social History Alcohol Use: Never. Employment/School Status: Disabled. Exercise Other: as much as she can. Regular exercise: Yes. Home/Environment Living situation: Home/Independent. Lives with: Alone. Nutrition/Health Diet: Diabetic. Other: no sugar,. Caffeine intake amount: 1 cup a day. Feels highly stressed: No. Substance Abuse Use: Never. Tobacco Current every day smoker, Tobacco user in household: Yes. Family History No family history recorded. Note * Selena Leach RN: PERFORM Event Display: Discharge/Transfer Note Hospital Authored Date: [id number] Nursing Discharge Note Entered On: 03/17/2023 17:15 EST Performed On: 03/17/2023 17:10 EST by Selena Leach RN Nursing Discharge Note 2 Discharge Time : 03/17/2023 17:10 EST Discharge Level of Care at Discharge : Home/Prison/Foster Care Patient Left Unit Via : Wheelchair Patient Accompanied Off Unit with : Other: RN DC Instructions Provided & Signed by Pt : Yes Patient Understands D/C Instructions : Yes Patient Instructions Discharge Signed : Yes Did Pt have Specialty Bed or Wound Vac : No Selena Leach RN - 03/17/2023 17:15 EST * Glenis CARREON, Shiloh: PERFORM, MODIFY, MODIFY, MODIFY, MODIFY, MODIFY, MODIFY, MODIFY, MODIFY, MODIFY, MODIFY, MODIFY, MODIFY, MODIFY, MODIFY, MODIFY Event Display: Discharge/Transfer Note Hospital Authored Date: [id number] Patient: ??TING KEITH ? Age:??62 Years?Sex:??Female?:??1960?? Patient Information Discharge Location: 7 Primary Care Physician: Ting Packer MD Admit Date/Time: 03/15/23 18:28 Discharge Disposition Discharge Disposition: Home: No Services Discharge Diagnosis Asthma exacerbation, mild (J45.901) Depression (F32.A) Hypertension (I10) S/P aortic valve repair (Z98.890) S/P cardiac pacemaker procedure (Z95.0) Severe aortic valve stenosis (I35.0) Shortness of breath (R06.02) Tobacco use disorder, moderate, in early remission (F17.201) Type 2 diabetes mellitus (E11.9) ?? _ Discharge Medications Albuterol (Proventil HFA 90 mcg/inh inhalation aerosol with adapter)?1?puff(s)?Inhalation?4 times a day?as needed?for wheezing amiTRIPTYLINE (amitriptyline 25 mg oral tablet)?TAKE 1 TABLET BY MOUTH AT BEDTIME Clopidogrel (Plavix 75 mg oral tablet)?75?Milligram?1?tablet?By Mouth?Daily?for 90?Days Cyanocobalamin (Vitamin B-12 1000 mcg oral tablet)?TAKE 1 TABLET BY MOUTH EVERY MORNING Docusate (Dulcolax Stool Softener)?100?Milligram?By Mouth?2 times a day Fluticasone-Salmeterol (Advair Diskus 250 mcg-50 mcg inhalation powder)?1?puff(s)?Inhalation?2 times a day Folic Acid (folic acid 1 mg oral tablet)?TAKE 1 TABLET BY MOUTH EVERY MORNING Gabapentin (gabapentin 100 mg oral capsule)?TAKE 1 CAPSULE BY MOUTH THREE TIMES DAILY IN THE MORNING, EVENING, AND BEDTIME Hydrochlorothiazide (hydrochlorothiazide 12.5 mg oral tablet)?TAKE 1 TABLET BY MOUTH EVERY MORNING Montelukast (Singulair 10 mg oral tablet)?1?tab(s)?10?Milligram?By Mouth?Daily inPM PredniSONE (predniSONE 20 mg oral tablet)?40?Milligram?By Mouth?Daily?for 2?Days?Laura 40 mg (2 comprimidos) por la kamilah los ty 18/03 y 19/03 Sertraline (sertraline 50 mg oral tablet)?1?tab(s)?50?Milligram?By Mouth?Daily Tiotropium (Spiriva HandiHaler 18 mcg ??Inhalation Capsule)?1?capsule?18?Microgram?Inhalation?Daily Tiotropium (Spiriva HandiHaler 18 mcg inhalation capsule)?USE 1 CAPSULE FOR INHALATION ONCE A DAY DO NOT SWALLOW CAPSULE ? Medications Started PredniSONE (predniSONE 20 mg oral tablet)?40?Milligram?By Mouth?Daily?for 2?Days?Laura 40 mg (2 comprimidos) por la manana los ty 18/03 y 19/03 Medications Discontinued None Doses Changed None Allergies Allergies ?(Active and Proposed Allergies Only) ciprofloxacin? (Severity: Unknown severity, Onset: Unknown) shellfish? (Severity: Unknown severity, Onset: Unknown) ?Reactions: hives aspirin? (Severity: Unknown severity, Onset: Unknown) ? PCP Follow-Up/Heads-Up Please follow-up on completion of 5-day course of??prednisone for management of COPD exacerbation, last day??03/19.?Patient reports not taking Advair and Spiriva at home, please??encourage patient to use inhalers and ensure patient??gets additional??teaching on??how to use inhalers. ??Please ensure patient follows up with cardiology??in 3 months??to continue TAVR evaluation.?? Interrogation of pacemaker done inpatient, will need??generator exchange??in 6 months. Patient reports missing cardiology appointments due to transportation concerns. Please consider arranging a PT-1. Hospital Course Ms. 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 for COPD exacerbation and further evaluation of severe aortic stenosis. COPD??exacerbation was managed with 5 day course of prednisone??with improvement in??dyspnea. Pacemaker was interrogated and it was determined to have estimated 6 months of longevity of device. Cardiology was consulted for evaluation of aortic stenosis. Initiated TAVR workup with TAVR protocol CTA. Plan for follow-up outpatient for??next steps??in TAVR workup and evaluation. ?? Objective Assessment and Plan Severe aortic valve stenosis H/o endocarditis s/p aortic valve homograft Complete heart block s/p pacemaker TTE at [facility] on 03/15: LVEF 60-65%, no WMA, indeterminate diastolic function;??Severe aortic valve stenosis with peak aortic velocity 4.57 m/s with calculated peak gradient 83 mmHg, mean gradient 42 mmHg, mild aortic valve regurgitation. Report notes that measured valve area >1 cm2 is likely erroneous (falsely increased) due to high LVOT??VTI measurement. Severe likely contributing to patient's??chronic dyspnea on exertion. 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 Wolff for further evaluation of severe??,??consideration of TAVR. Also concern for overdue for pacemaker??generator change.??Pacemaker interrogated 03/16 and estimated to have 6 months charge left. No acute arrhythmia or concern for??ACS.?? HDS and well-perfused on exam. Dr. Segovia from TAVR team assessed the patient on 03/16 and believes that this is mostly a COPD flare rather than primarily from her and is directing her workup. Completed CTA for TAVR workup.? Recommend:?? -Continue home??Plavix -PCP??follow-up and ideally PT 1 arranged as patient shares she has been missing her outpatient cardiology appointments due to lack of transportation ? Respiratory distress, dyspnea -improving Asthma/COPD with??mild acute exacerbation Prior tobacco use in early remission Acute on chronic dyspnea in the setting of??asthma/COPD??as well as severe aortic stenosis. Unclear if she carries a diagnosis of asthma or COPD. Patient reports that she has asthma.??She is on home inhalers that suggest??COPD and she has??a??long??smoking history, but happy to report for that she??quit smoking 2 months ago. Reports of cigarette smoking cessation but current vaping per [facility] records. Her breathing feels back to baseline??upon arrival to [facility].?No fever,??focal findings on CXR, or??increased sputum production. No leukocytosis on admission, WBC 14.2 on 03/16 up from 8.2 on 03/14. Likely due to initiation of corticosteroid treatment. Sats 95-97% on room air. [place] records state h/o MARY with CPAP use. No reports of desats while inpatient per nurse checks, though patient not on co ntinuous O2 monitoring. ?? Recommend: -Complete 5-day course of??Prednisone 40 mg (last day 03/19) -Advair and Spiriva??prescribed but does not take at home. Encourage patient to use inhalers at home.?? -Continue home Singulair 10 mg QD -Encourage??follow up??with PCP??regarding MARY/CPAP ? Chronic/stable: Type II DM??not on long-term insulin:??Continue home management Depression: Continue home sertraline 50 mg and amitriptyline??25 mg daily HTN:??Continue home hydrochlorothiazide 12.5 mg daily Chronic back pain: Continue home gabapentin 100 mg 3 times daily ?? Vital Signs?? Temperature: 97.8 DegF (03/17/23 07:58:00) Temperature Route: Temporal (03/17/23 07:58:00) Pulse Rate: 65 bpm (03/17/23 07:58:00) Respiratory Rate: 18 br/min (03/17/23 07:58:00) Systolic Blood Pressure: 127 mm Hg (03/17/23 07:58:00) Diastolic Blood Pressure: 77 mm Hg (03/17/23 07:58:00) Blood pressure sites: Arm, right (03/17/23 07:58:00) Mean Arterial Pressure: 94 mm Hg (03/17/23 07:58:00) Pulse Pressure: 50 mm Hg (03/17/23 07:58:00) Oxygen Saturation: 97 % (03/17/23 07:58:00) Mode of Delivery (Oxygen): Room air (03/17/23 07:58:00) Early Warning Score: 2 (03/17/23 08:39:19) ? . Physical Exam Constitutional:??Alert, in no distress. Eyes:??Extraocular muscles intact. Ear, Nose and Throat:??Mucous membranes moist. Respiratory:??Scattered??end-inspiratory wheezes, decreased from yesterday. No rales or rhonchi.??Dry cough at times when speaking Cardiovascular:??RRR,??pacemaker in left chest.??Grade IV-V/ systolic murmur heard throughout precordium loudest in right 2nd intracostal space Neurologic:??Cranial nerves II-XII grossly intact. No focal neurological deficits.??Moves all extremities spontaneously.?? Skin:??No visible??rashes,??lesions,??petechiae or purpura.?? Musculoskeletal:??No gross deformities. Normal range of motion. Psychiatric:??Normal mood and affect.?? Consultants Cardiology Patient Education Titles COPD Flare?? Follow-Up Appointments Added Follow Up ?Time Frame ?Comments Ting Packer MD?3-5 day: call to discuss follow up visit Patient Instructions DIAGN??STICO/TRATAMIENTOS: Lleg?? al hospital por dificultad para respirar. Se descubre que joiner enfisema wolf empeorado. Comenz?? un tratamiento con esteroides para disminuir la inflamaci??n de los pulmones y joiner respiraci??n mejor??. Tambi??n revisamos joiner marcapasos y determinamos que le quedan otros 6 meses antes de que sea necesario colocarle las bater??as. Tambi??n nos hicieron monique tomograf??a computarizada para iniciar el proceso de evaluaci??n de joiner v??lvula card??jennifer y evaluar si necesita unprocedimiento para reemplazarla. ?? Le iniciamos un tratamiento con esteroides para tratar la inflamaci??n de alan pulmones. [place] prednisona 40 mg por la ma??susan los d??as 21 y 22 de enero. ? MEDICAMENTOS: Inicio: Prednisona 40 mg diarios donell 2 d??as ? SEGUIMIENTO: Programe monique ceferino con joiner m??dico dentro de 1 semana despu??s de salir del hospital. ?? Programe monique ceferino de seguimiento con joiner cardi??logo en 3 meses. ? Busque monique evaluaci??n urgente si experimenta dificultad para respirar, fiebre, dolor en el pecho oaturdimiento. ?Anne por permitirnos participar en joiner cuidado! Results Discharge Labs BLOOD BANK Blood Type A Positive ()?? 03/15/2023 21:08 Antibody Screen Negative ()?? 03/15/2023 21:08 ?? BLOOD COUNT & DIFF WBC 12.1 k/mm3 (High)?? 03/17/2023 00:12 RBC 4.37 m/mm3 ()?? 03/17/2023 00:12 Hgb 12.1 Gm/dL ()?? 03/17/2023 00:12 Hct 38.6 % ()?? 03/17/2023 00:12 MCV 88.3 femtoliters ()?? 03/17/2023 00:12 MCH 27.7 pg ()?? 03/17/2023 00:12 MCHC 31.3 g/dL (Low)?? 03/17/2023 00:12 Platelet Count 503 k/mm3 (High)?? 03/17/2023 00:12 RDW-SD 49.2 femtoliters (High)?? 03/17/2023 00:12 MPV 9.6 femtoliters ()?? 03/17/2023 00:12 Nucleated RBC (Automated) 0.0 #/100 WBC'S ()?? 03/17/2023 00:12 Abs. NRBC 0.0 k/mm3 ()?? 03/17/2023 00:12 ?? CHEM GENERAL Sodium 141 mmol/L ()?? 03/17/2023 00:12 Potassium 4.8 mmol/L ()?? 03/17/2023 00:12 Chloride 101 mmol/L ()?? 03/17/2023 00:12 Bicarbonate Level 29 mmol/L ()?? 03/17/2023 00:12 Anion Gap 11 ()?? 03/17/2023 00:12 Glucose Level 102 mg/dL (High)?? 03/17/2023 00:12 Glucose, POC 99 mg/dL ()?? 03/17/2023 08:37 BUN 25 mg/dL (High)?? 03/17/2023 00:12 Creatinine-Blood 0.7 mg/dL ()?? 03/17/2023 00:12 Estimated GFR Creatinine 100 ML/MIN/1.73 M2 ()?? 03/17/2023 00:12 Calcium 9.6 mg/dL ()?? 03/17/2023 00:12 Magnesium 2.1 mg/dL ()?? 03/17/2023 00:12 ?? COAG INR 1.1 ()?? 03/16/2023 06:59 Protime (PT) 11.2 seconds ()?? 03/16/2023 06:59 APTT 24.6 seconds ()?? 03/16/2023 06:59 ? URINE OTHER Est Creatinine Clearance 58.46 mL/min ()?? 03/17/2023 01:19 ? Patient case and plan discussed with ??Gabriella?? Shiloh Galvin MD?? Internal Medicine-Pediatrics PGY-1 Pager: [phone]?? 35??minutes spent on discharge * Jin Quiroz MD: PERFORM Event Display: Discharge/Transfer Note Hospital Authored Date: [id number] Attending Attestation:??I saw and examined independently and reviewed the chart on the day of service. ??I have discussed the case and its management??with the resident as documented in the resident note on the day of service.??I agree with the resident's note and plan as documented. ?? * Michael Rand RN: MODIFY, PERFORM Event Display: Patient Education/Instruction Authored Date: [id number] Inpatient Adult Discharge Instructions [place] [id number] Name: TING KEITH : 1960 Visit: 03/15/2023 18:28:00 Current Date: 03/17/2023 15:24 Account: [id number] Inpatient Adult Discharge Instructions We would like [...] and their families. Surveys are administered by [employer] ?? If further treatment with your primary care physician or another doctor is recommended, it is important for you to keep the appointment. Call your primary care physician or return to the Emergency Department immediately if your condition worsens, fails to improve, or new symptoms develop. If you need to find a doctor, you can call [facility] [employer] Link for a referral at [phone] or toll free at [phone] and K [email or web address] ([phone]) or log in to [email or web address].. ?? [facility], in keeping with [facility] guidance, no longer requires face masks for [...] a health care mariluz of your choosing. [employer] is a website that allows you to securely view your medical information including your hospital discharge summary, office visit summaries, medications and follow-up visits. You can also request appointments, renew medications, and request access to your medical information using a health care mariluz of your choosing, or just ask a question. You can enroll at [email or web address] or register during your next office visit. You have been discharged from [facility], Patient Care Unit: M7. If you have any questions regarding these instructions after you leave, please call us and we will be happy to assist you. [facility] Your Care Team Attending Physician Gabriella CARREON, Jin Consulting Providers Luca CARREON, Victorino Wolff MD, Kevon Discharging Providers Shiloh Galvin MD Reason for Admission DYSPNEA AORTIC STENOSIS Your Diagnosis Shortness of breath Asthma exacerbation, mild Tobacco use disorder, moderate, in early remission Severe aortic valve stenosis S/P cardiac pacemaker procedure S/P aortic valve repair Hypertension Depression Type 2 diabetes mellitus Tests Performed Below is a partial list of the tests performed during your hospitalization. You may have had other tests and procedures not included in this list. Please discuss all test results with your provider. Basic Metabolic Panel CBC GLUCOSE POC Magnesium Level PT (INR) PTT Type and Screen TAVR Angio Abdomen and Pelvis (CT)?-- Results Pending -- TAVR Angio Chest (CT)?-- Results Pending -- You will be contacted within 72 hours with your results. Primary Care Provider Joshua Hampton MD, Ting Osman Advance Directive Health Care Proxy on File Yes - Health Care Proxy Discharge Vitals Temperature: 97.2 DegF Height: 150 cm Pulse Rate: 66 bpm Weight: 56.6 kg Respiratory Rate: 18 br/min Body Mass Index: 24.98 kg/m2 Systolic Blood Pressure: 117 mm Hg Body surface area: 1.53 Diastolic Blood Pressure: 80 mm Hg ?? Oxygen Saturation: 96 % ?? Studies Pending All tests and labs ordered during this hospital stay have been completed unless listed below. Please discuss all pending results with your provider listed above in these instructions. ?? CT TAVR Angio Abdomen and Pelvis (TAVR Angio Abdomen and Pelvis (CT)) CT TAVR Angio Chest (TAVR Angio Chest (CT)) CT TAVR Heart (TAVR Heart (CT)) What to do next Instructions From Your Doctor DIAGN??STICO/TRATAMIENTOS: Lleg?? al hospital por dificultad para respirar. Se descubre que joiner enfisema wolf empeorado. Comenz?? un tratamiento con esteroides para disminuir la inflamaci??n de los pulmones y joiner respiraci??n mejor??. Tambi??n revisamos joiner marcapasos y determinamos que le quedan otros 6 meses antes de que sea necesario colocarle las bater??as. Tambi??n nos hicieron monique tomograf??a computarizada para iniciar el proceso de evaluaci??n de joiner v??lvula card??jennifer y evaluar si necesita unprocedimiento para reemplazarla. ?? Le iniciamos un tratamiento con esteroides para tratar la inflamaci??n de alan pulmones. [place] prednisona 40 mg por la ma??susan los d??as 21 y 22 de enero. ? MEDICAMENTOS: Inicio: Prednisona 40 mg diarios donell 2 d??as ? SEGUIMIENTO: Programe monique ceferino con joiner m??dico dentro de 1 semana despu??s de salir del hospital. ?? Programe monique ceferino de seguimiento con joiner cardi??logo en 3 meses. ? Busque monique evaluaci??n urgente si experimenta dificultad para respirar, fiebre, dolor en el pecho oaturdimiento. ?Anne por permitirnos participar en joiner cuidado! Discharge Orders You Need to Schedule the Following Appointments Follow Up with??Ting Packer MD When:??Within 3-5 day: call to discuss follow up visit Where: [address] [facility] [place] [id number]- Discharge Medications TING KEITH :1960 Visit Date:03/15/2023 Medications: Please continue your medications until treatment is completed or stopped by your provider. Medications not listed below should be discontinued. Discuss any questions related to medications with your provider. What How Much When Instructions Next Dose Changed PredniSONE (predniSONE 20 mg oral tablet) 40 Milligram Oral Daily Duration: 2 Days Laura 40 mg (2 comprimidos) por la manana los ty y ?? [facility] next dose tomorrow 03/18/2023 Unchanged Albuterol (Proventil HFA 90 mcg/ inh inhalation aerosol with adapter) 1 puff(s) Inhalation 4 times a day as needed for for wheezing as needed for sob or wheezing Unchanged amiTRIPTYLINE (amitriptyline 25 mg oral tablet) TAKE 1 TABLET BY MOUTH AT BEDTIME ?? next dose this evening 03/17/2023 Unchanged Clopidogrel (Plavix 75 mg oral tablet) 1 tab(s) Oral Daily Duration: 90 Days next dose tomorrow 03/18/2023 Unchanged Cyanocobalamin (Vitamin B-12 1000 mcg oral tablet) TAKE 1 TABLET BY MOUTH EVERY MORNING ?? next dose tomorrow 03/18/2023 Unchanged Docusate (Dulcolax Stool Softener) 100 Milligram Oral Twice a day next dose tonight 03/17/2023 Unchanged Fluticasone-Salmeterol (Advair Diskus 250 mcg-50 mcg inhalation powder) 1 puff(s) Inhalation Twice a day next inhalation tonight 02/2023 Unchanged Folic Acid (folic acid 1 mg oral tablet) TAKE 1 TABLET BY MOUTH EVERY MORNING ?? next dose tomorrow 03/18/2023 Unchanged Gabapentin (gabapentin 100 mg oral capsule) TAKE 1 CAPSULE BY MOUTH THREE TIMES DAILY IN THE MORNING, EVENING, AND BEDTIME ?? next dose this evening 03/17/2023 Unchanged Hydrochlorothiazide (hydrochlorothiazide 12.5 mg oral tablet) TAKE 1 TABLET BY MOUTH EVERY MORNING ?? next dose tomorrow 03/18/2023 Unchanged Montelukast (Singulair 10 mg oral tablet) 1 tab(s) Oral Daily in PM next dose this evening 03/17/2023 Unchanged Sertraline (sertraline 50 mg oral tablet) 1 tab(s) Oral Daily next dose tomorrow 03/18/2023 Unchanged Tiotropium (Spiriva HandiHaler 18 mcg Inhalation Capsule) 18 Microgram Inhalation Daily use 1 capsule for inhalation once a day DO NOT SWALLOW CAPSULE next dose tomorrow 03/18/2023 Unchanged Tiotropium (Spiriva HandiHaler 18 mcg inhalation capsule) USE 1 CAPSULE FOR INHALATION ONCE A DAY DO NOT SWALLOW CAPSULE ?? see above order Pharmacy Information [facility] [address]: [address], [place] [id number] [phone] ?? What How Much When Comments Stop Taking Amoxicillin (amoxicillin 500 mg oral capsule) 4 capsule Oral Once given 1 hour prior to the procedure ?? Stop Taking Benzonatate 100 Milligram Oral 3 times a day Stop Taking Bisacodyl (bisacodyl 5 mg oral delayed release tablet) 5 Milligram Oral Daily as needed for Constipation Stop Taking Furosemide (furosemide 20 mg oral tablet) 1 tab(s) Oral Daily Duration: 90 Days Stop Taking Loratadine 10 Milligram Oral Daily Stop Taking Losartan 100 Milligram Oral Daily Stop Taking Metformin 500 Milligram Oral Twice a day Stop Taking Miscellaneous Rx (tylenol arthgritis 650mg) Stop Taking Ranitidine (ranitidine 150 mg oral capsule) 1 capsule Oral Twice a day Stop Taking Rosuvastatin (rosuvastatin 20 mg oral tablet) 1 tab(s) Oral Daily Stop Taking Tizanidine 4 Milligram Oral Stop Taking Trazodone (trazodone 100 mg oral tablet) 1.5 tab(s) Oral Daily at Bedtime Test Results Below is a partial list of the most recent Laboratory test results done prior to this discharge. You may have had other tests and procedures not included in this list. Please discuss all test resultswith your provider. Est Creatinine Clearance - 58.46 mL/min (03/17/2023) Basic Metabolic Panel (03/17/2023) ???Sodium - 141 mmol/L???Potassium - 4.8 mmol/L???Chloride - 101 mmol/L???Bicarbonate Level - 29 mmol/L???Anion Gap - 11???Glucose Level - 102 mg/dL???BUN - 25 mg/dL???Creatinine-Blood - 0.7 mg/dL???Estimated GFR Creatinine - 100 ML/MIN/1.73 M2???Calcium - 9.6 mg/dL CBC (03/17/2023) ???WBC - 12.1 k/mm3???RBC - 4.37 m/mm3???Hgb - 12.1 Gm/dL???Hct - 38.6 %???MCV - 88.3 femtoliters???MCH - 27.7 pg???MCHC - 31.3 g/dL???Platelet Count - 503 k/mm3???RDW-SD - 49.2 femtoliters???MPV - 9.6 femtoliters???Nucleated RBC (Automated) - 0.0 #/100 WBC'S???Abs. NRBC - 0.0 k/mm3 GLUCOSE POC (03/17/2023) ???Glucose, POC - 106 mg/dL Magnesium Level (03/17/2023) ???Magnesium - 2.1 mg/dL PT (INR) (03/16/2023) ???INR - 1.1???Protime (PT) - 11.2 seconds PTT (03/16/2023) ???APTT - 24.6 seconds Type and Screen (03/15/2023) ???Blood Type - A Positive???Antibody Screen - Negative Allergies (NKA means No Known Allergies) aspirin ciprofloxacin shellfish??(hives) Problems Active Problems??(6) Aortic valve disorder?? Arthritis?? Asthma?? Back pain?? Diabetes mellitus?? Hypertension?? Education Materials Below is the list of Educational Leaflet Providered with your Discharge Instructions. Prednisone Oral Tablet?? Understanding Type 2 Diabetes?? Managing Type 2 Diabetes?? Understanding Replacement of an Implantable Heart Device?? Understanding High Blood Pressure?? High Blood Pressure, Established, Out of Control?? Asthma and COPD- Controlling Other Triggers?? Discharge Instructions for Asthma?? What is COPD??? [id number]: Using a Dry-Powder Diskus Inhaler?? Managing Your Asthma Medicines?? Monitoring Your Asthma Symptoms?? What Is Asthma??? Zones Adult Asthma?? COPD Flare?? Valuables and Belongings I fully understand and agree that [facility] accepts no responsibility for all my personal [...] to send valuables and belongings home. ?? Date for Pt to Sign Valuables/Belongings: 03/15/23 18:43:00 ?? Other Discharge Information ? Case Management Discharge Plan?? Discharge Plan?? Discharge Rx Program: Discharge Prescription Program ?? Pulmonary Rehab Status?? Pulmonary Rehab Discharge Status?? Respiratory Rate: 18 br/min ? Common Emergency Awareness Tips IS [...] are strongly encouraged to quit. Please call [facility] Einspect Link at [phone] or [phone] ([phone]) or log in to [email or web address] for referrals to smoking cessation programs. ?? 823 Suicide & Crisis Lifeline is available 18/09 if you or someone you know needs to find a reason to keep living. By calling 345 you'll be connected to a skilled, trained counselor at a crisis center in your area. INPATIENT DISCHARGE INSTRUCTIONS SIGNATURE TING FERMIN Location:[facility] Registration Date and Time:03/15/2023 18:28 EST Primary Care Physician: Ting Packer MD, Attending Physician: Gabriella CARREON [place], TING VIRAMONTES, have received the above patient education materials/instructions and have verbalizedunderstanding. If ambulance or transport services are being used I further acknowledge being given a choice of service. ?? If you need to contact me, please call me at this number: . Patient/Sales Contract Administrator Name: Patient/Sales Contract Administrator Signature: Relationship to Patient: Witness Name/Signature: Date: * Michael Rand RN: PERFORM Event Display: Patient Education Leaflets Authored Date: [id number] Prednisone Oral Tablet ?? [id number] Prednisone Oral Tablet Brands: Deltasone Usos Liliana medicamento se usa para las siguientes afecciones: ??? enfermedad inflamatoria ??? inmunosupresi??n ??? trastorno sangu??deepali ??? COVID-19 (coronavirus) ??? c??ncer ??? trastorno autoinmune ??? trastorno endocrino ??? reacci??n al??rgica ?? Instrucciones [place] el medicamento con alimentos. Guarde a temperatura ambiente, alejado del calor, la kinga y la humedad. No lo guarde en el ba??o. Es importante que contin??e tomando todas las dosis de liliana medicamento a la hora indicada aunque se sienta cally. Si olvida laura monique dosis a tiempo, t??asad crooks pronto lo recuerde. Si es aman la hora de la dosis siguiente, no tome la dosis olvidada. Vuelva al horario normal. No tome dos dosis al mismo tiempo. Las interacciones con otros medicamentos pueden cambiar la forma en que act??an los medicamentos o aumentar el riesgo de presentar efectos secundarios. Informe a alan profesionales sanitarios acerca de todos los medicamentos que usa. [place] incluye medicamentos con y sin receta m??dica, vitaminas y medicamentos a base de hierbas. Hable con joiner m??dico o farmac??utico antes de empezar o dejar de usar cualquier medicamento. Informe a joiner m??dico si alan s??ntomas no mejoran o si empeoran. Liliana medicamento puede afectar alan niveles de az??car en joseluis. Si tiene diabetes, hable con joiner m??dico antes de cambiar la dosis de joiner medicamento para la diabetes. Liliana medicamento puede afectar la fuerza de alan huesos. Si tiene osteoporosis (debilitamiento de los huesos) o corre un mayor riesgo de tenerlo, es posible que joiner m??dico le recomiende alimentos ricos en calcio y vitamina D. Es muy importante que asista a todas las citas para evaluaciones y pruebas m??dicas mientras usa liliana medicamento. ?? Precauciones Informe a joiner m??dico y a joiner farmac??utico si alguna vez wolf tenido monique reacci??n al??rgica a un medicamento. Liliana medicamento puede causar sangrado intenso del est??jill o los intestinos. Deje de laura liliana medicamento y llame a joiner m??dico inmediatamente si nota alguna se??al de sangrado. El sangrado puede causar dolor de est??jill, v??casie de un l??quido parecido a caf?? molido y heces de color hollis, o alquitranadas y oscuras. No use el medicamento m??s veces de lo indicado. Consulte a joiner m??dico antes de beber alcohol mientras usa liliana medicamento. Evitar fumar mientras se est?? usando liliana medicamento. Fumar podr??a aumentar joiner riesgo de tener sangrado en el est??jill. Liliana medicamento puede reducir la capacidad del cuerpo de luchar contra infecciones. Evite el contacto con personas que tengan un resfriado, la gripe u otra infecci??n. Comun??quese con joiner m??dico sitiene fiebre, tos, dolor de garganta o escalofr??os. Hable con joiner proveedor de atenci??n m??dica antes de aplicarse cualquier vacuna. Liliana medicamento pasa a la leche materna. Consulte a joiner m??dico antes de amamantar. Donell el embarazo, liliana medicamento solo debe usarse cuando sea claramente necesario. Hable con joiner m??dico acerca de los riesgos y beneficios. Lleve siempre monique tarjeta de identificaci??n o use un brazalete de alerta m??dica que indique joiner afecci??n m??dica. No comparta liliana medicamento con otras personas a quienes no se les recet??. ?? Efectos Secundarios La siguiente es monique lista de algunos efectos secundarios comunes de liliana medicamento. Hable con el m??dico para saber qu?? debe hacer en jessica de tener estos u otros efectos secundarios. ??? acn? sensaci??n de agitaci??n o dificultad para dormir ??? p??rdida de apetito ??? dinora concentraci??n de az??car en la joseluis ??? dinora presi??n arterial ??? n??useas y v??mitos ??? indigesti??n estomacal o dolor abdominal Llame al m??dico u obtenga atenci??n m??dica de inmediato si nota cualquiera de estos efectos secundarios m??s graves: ??? sangrado o moretones ??? dolor en los huesos ??? tos con joseluis, o v??casie con aspecto de poso de caf? depresi??n o sentimiento de tristeza ??? hinchaz??n de las piernas, pies y adama ??? fiebre o escalofr??os ??? latidos del coraz??n acelerados o irregulares ??? cambios en la menstruaci??n (per??odos ausentes o menos frecuentes) ??? cambios de estado de ??fozia ??? dolor muscular o calambres ??? convulsiones ??? adelgazamiento de la piel ??? dolor intenso del est??jill o las v??as digestivas ??? heces oscuras, de aspecto alquitranado ??? cansancio o debilidad, extra??o o sin causa aparente ??? aumento en la frecuencia urinaria ??? visi??n borrosa o cambios en la visi??n ??? aumentode peso repentino o inexplicado ??? heridas que tardan mucho en sanar Algunas personas podr??an tener reacciones al??rgicas a liliana medicamento. Entre los s??ntomas pueden incluirse: dificultad para respirar, erupci??n en la piel, comez??n, hinchaz??n o mareos intensos.Si nota algunos de estos s??ntomas, busque asistencia m??dica r??pidamente. ?? Extra Hable con joiner m??dico, enfermero o farmac??utico si tiene alguna pregunta acerca de liliana medicamento. ?? [email or web address] NOTA IMPORTANTE: En liliana documento hay monique explicaci??n breve sobre c??mo usar el medicamento, perono incluye todo lo que hay que saber acerca del medicamento. Joiner m??dico o joiner farmac??utico podr??a suministrarle otros documentos acerca de joiner medicamento. Comun??quese con ellos si tiene alguna pregunta. Siga siempre alan consejos. Monique descripci??n m??s completa de liliana medicamento est?? disponibleen ingl??s. Escanee liliana c??digo en joiner tel??fono inteligente o en joiner tableta, o use la direcci??n web que aparece a continuaci??n. Tambi??n puede pedirle a joiner farmac??utico monique copia impresa. Si tiene alguna pregunta, h??gasela a joiner farmac??utico. La exhibici??n y el uso de esta informaci??n sobre f??rmacos est?? sujeta a los T??rminos de Uso. Copyright(c) 2022 [employer], [employer]. ?? 5218-8555 [employer], [employer]. All rights reserved. This information is not intended as a substitute for professional medical care. Always follow your healthcare professional's instructions. ?? * Michael Rand RN: PERFORM Event Display: Patient Education Leaflets Authored Date: [id number] Understanding Type 2 Diabetes ?? 27892 En qu?? consiste la diabetes tipo 2 Cuando el cuerpo funciona normalmente, los alimentos que comemos se digieren y se utilizan sameer matthew de energ??a. Es sameer un combustible que proporciona energ??a a las c??lulas del cuerpo. Si ustedtiene diabetes, la glucosa que se utiliza sameer matthew de energ??a no puede entrar en las c??lulas. Si no se la trata, la diabetes puede provocar serios problemas de viraj a julieta plazo. Joiner cuerpo descompone los alimentos para producir glucosa. C??mo obtiene energ??a el cuerpo El sistema digestivo descompone los alimentos. El resultado es la liberaci??n de un tipo de az??carllamado glucosa. Monique parte de esta glucosa se almacena en el h??gado. Laura la mayor parte de martha entra en el torrente sangu??deeplai. Esta se desplaza hasta las c??lulas. Luego es consumida sameer matthew de energ??a. La glucosa necesita la ayuda de monique hormona llamada insulina para entrar en las c??lulas. La insulina se produce en el p??ncreas. Desde all??, pasa al torrente sangu??deepali. Esta es monique respuesta a la glucosa en la joseluis. La insulina funciona sameer monique especie de llave. Cuando llega a unac??lakeisha, entra en contacto con la pared de esta. Estas se??ales le indican a la c??lakeisha que salina monique abertura. Luego, la glucosa puede entrar en la c??lakeisha. ?? Cuando usted tiene diabetes tipo 2 En la primera etapa de la diabetes tipo 2, las c??lulas no responden correctamente a la insulina. En consecuencia, la cantidad de glucosa que entra en las c??lulas es inferior a la normal. [place] se conoce sameer resistencia a la insulina. El p??ncreas entonces produce m??s insulina. Laura, con el tiempo, el p??ncreas no puede producir suficiente insulina para superar la resistencia a la insulina. Cada vez entra menos glucosa a las c??lulas. [place] hasta alcanzar niveles peligrosos en el torrente sangu??deepali. [place] se conoce sameer alto nivel de az??car en la joseluis (hiperglucemia). El resultado es diabetes tipo 2. Las c??lulas comienzan a sufrir la falta de energ??a. [place] puede hacer que usted se sienta cansado y sin fuerzas. ?? Por qu?? el alto nivel de az??car es un problema Si el alto nivel de az??car no se controla, pueden da??arse los vasos sangu??neos de todo el cuerpo. Un alto nivel de az??car en la joseluis lambert afecta a los ??rganos, los vasos sangu??neos y losnervios. [place] aumenta el riesgo de da??os al coraz??n, los ri??ones, los ojos y las extremidades. La diabetes tambi??n aumenta la peligrosidad de otros problemas. Estos incluyen la presi??n arterial dinora, el nivel de colesterol alto y triglic??ridos. Con el tiempo, las personas con un nivel de az??car en la joseluis no controlado corren un mayor riesgo de quedar discapacitadas o morir sameer consecuencia de diferentes afecciones. Estas incluyen ataques card??acos, insuficiencia card??jennifer o derramescerebrales. Tambi??n pueden presentar problemas en los ojos, los ri??ones y los nervios, principalmente en los pies y la parte inferior de las piernas. Estos problemas se deben a lesiones en los vasos sangu??neos zach??os. ?? Last Reviewed Date: 2020 ?? [id number] [employer] Simple[employer] Fast [employer] Elegant Tablet Sales App. Todos los derechos reservados. Esta informaci??n no pretende sustituir la atenci??n m??dica profesional. S??lo joiner m??dico puede diagnosticar y tratar un problema de viraj. ?? * Michael Rand RN: PERFORM Event Display: Patient Education Leaflets Authored Date: [id number] Managing Type 2 Diabetes ?? 54918 C??mo manejar la diabetes tipo??2 La diabetes tipo??2 es monique afecci??n a julieta plazo (cr??alie). Puede ser necesario hacer algunos cambios dif??ciles para controlarla. El equipo de atenci??n m??dica puede ayudarlo. Deber?? equilibrar el medicamento con la dieta y la actividad. [place] lo ayudar?? a controlar la diabetes tipo??2. Tambi??n deber?? controlar el nivel de az??car en la joseluis con frecuencia. Y tendr?? que colaborar con el proveedor de atenci??n m??dica para prevenir complicaciones. Desde la Asociaci??n Estadounidense de Diabetes (ADA, por joiner sigla en ingl??s), se aconseja que todas las personas con diabetes aprendan a controlarla y a recibir apoyo. [place] hace que tenga m??s informaci??n, mejore la shan de decisiones y aumenten las habilidades de autocuidado. Pregunte al proveedor de atenci??n m??dica c??mo empezar. Admin??strese los medicamentos Es posible que tome pastillas o se inyecte insulina para tratar la diabetes. O tambi??n es posible que use ambas opciones. [place] los medicamentos o iny??ctese insulina en los momentos adecuados. [place] lo ayudar?? a controlar el nivel de az??car en la joseluis. Piense en maneras que lo ayuden a recordarque debe administrarse los medicamentos de la manera correcta todos los d??as. Consulte al proveedor o equipo de atenci??n m??dica para que le aporten ideas. Quiz??s ahora solo tenga que laura pastillas para tratar la diabetes. Laura esto puede cambiar. Con el tiempo, la mayor??a de las personas con diabetes tipo??2 tambi??n necesitan insulina u otras inyecciones. ?? Alim??ntese de forma saludable Monique dieta saludable lo ayuda a controlar la cantidad de az??car en la joseluis. Tambi??n lo ayuda a mantener un peso saludable. O cally, puede ayudarlo a bajar de peso, si tiene sobrepeso. El sobrepeso hace que sea m??s dif??cil controlar la diabetes. Joiner equipo de atenci??n m??dica lo ayudar?? a crear un plan que sea adecuado para usted. No tiene que dejar todas las comidas que le gusten. [place] lo siguiente a alan comidas y refrigerios: ??? Verduras ??? Frutas ??? Neto magras u otras prote??saji saludables ??? Granos integrales ??? Productos l??cteos sin grasa o con bajo contenido de grasa ?? Reemplace las bebidas azucaradas (incluido el jugo de frutas) por agua o por bebidas con bajas calor??as o sin calor??as siempre que sea posible. No consuma alimentos con az??cares agregados. ?? Mant??ngase f??sicamente activo Mantenerse activo lo ayuda a bajar el nivel de az??car en la joseluis. La actividad f??wanda ayuda a que joiner cuerpo utilice la insulina para convertir los alimentos en energ??a. Tambi??n le ayuda a controlar joiner peso: P??jailyn al proveedor de atenci??n m??dica que lo ayude a crear un programa de ejercicios que sea adecuado para usted. Joiner programa estar?? basado en joiner edad, joiner estado general de viraj y los tipos de actividades que usted disfruta. Empiece de a poco. Laura trate de llegar a 150??minutos de actividad f??wanda por semana. Comience con 30??minutos por d??a. Kendall ejercicio en tandas de 10??minutos. No deje pasar m??s de 2??d??as sin hacer actividad f??wanda. ?? Contr??lese el nivel de az??car en la joseluis. Medir el nivel de az??car en la joseluis puede ser monique parte regular del cuidado. O quiz??s solo debamed??rselo de vez en cuando. El proveedor de atenci??n m??dica le dir?? c??mo medir el nivel de az??car en la joseluis en el hogar. Hacer esto le indicar?? si joiner nivel de az??car en la joseluis est?? dentro de los l??mites ideales. Tenerlos dentro de los l??mites ideales significa que usted est?? manejando cally joiner diabetes. Si liliana nivel es muy alto o muy bajo, el proveedor de atenci??n m??dica puede sugerirle cambios en joiner dieta o actividad. Tambi??n es probable que le ajusten los medicamentos. El proveedor de atenci??n m??dica tambi??n puede pedirle que se controle el nivel de az??car en la joseluis con mayor frecuencia cuando est?? enfermo. ?? Cu??dese Si padece diabetes, tiene m??s probabilidades de contraer otros problemas de viraj. Por ejemplo, problemas en los pies, los ojos, el coraz??n, los nervios y los ri??ones. Usted puede ayudar a prevenir estos problemas controlando el nivel de az??car en la joseluis. Y cuid??ndose cally. El proveedor de atenci??n m??dica, enfermero, educador en cuestiones de diabetes y otras personas pueden ayudarlo con lo siguiente: ??? Chequeos. Debe hacerse chequeos regulares con el proveedor de atenci??n m??dica.En estas visitas, le kvng??n monique exploraci??n f??wanda que incluye un examen de los pies. El proveedor de atenci??n m??dica tambi??n le controlar?? la presi??n arterial y el peso. Qu??tese los zapatos antes de que comience joiner ceferino para asegurarse de que le revisen los pies. Aseg??rese de traer los registros de los an??lisis del nivel de az??car en la joseluis. Pregunte a los proveedores de atenci??n m??dica si existen formas nuevas o mejores de controlar el nivel de az??car en la joseluis. ??? Otros ex??menes. Tambi??n deber?? hacerse ex??menes de dientes, pies y ojos por lo menos monique vez al a??o oseg??n le hayan recomendado. ??? An??lisis de laboratorio. Le kvng??n an??lisis de joseluis y de orina: o El proveedor de atenci??n m??dica revisar?? joiner hemoglobina A1C por lo menos dos veces al a??o. [place] an??lisis de joseluis muestra si est?? cally controlado joiner nivel de az??car en la joseluis en un per??odo de 2 a 3??meses. Los resultados le sirven al proveedor de atenci??n m??dica para manejar la diabetes. ?? o Tambi??n le kvng??n otros an??lisis de laboratorio. Por ejemplo, para detectar si hay problemas renales o niveles anormales de colesterol. ??? Tabaquismo. Si fuma, tendr?? que dejar de hacerlo. El tabaquismo aumenta las probabilidades de tener complicaciones por la diabetes. Consulte con el proveedor de atenci??n m??dica sobre maneras de dejar el h??bito. Tampoco use cigarrillos electr??nicos ni productos de vapeo. ??? Vacunas. Reciba anualmente la vacuna antigripal. Y preg??ntele al proveedor de atenci??n m??dica sobre las vacunas para prevenir la neumon??a, el herpes z??ster, el COVID-19 y la hepatitis??B. ?? Estr??s y depresi??n La mayor??a de las personas pasan por momentos dif??ciles a lo julieta de alan vidas. Vivir con diabetes puede aumentar joiner estr??s. De hecho, sentirse estresado o deprimido puede afectar joiner nivel de az??car en la joseluis. Si est?? teniendo problemas para lidiar con la diabetes, d??gaselo al proveedor de atenci??n m??dica. Puede ayudarlo o derivarlo a otro tipo de proveedores de atenci??n m??dica o a otros programas. ?? M??s informaci??n Sepa d??nde puede obtener ayuda. Puede probar lo siguiente: ??? Apoyo. P??dales a familiares y amigos que apoyen alan iniciativas para cuidarse a usted mismo. O busque un demarcus de apoyo para la diabetes cercano o en Internet. Consulte el enlace Resumen de la comunidad, en [email or web address] ??? Asesoramiento o terapia. Hable con un trabajador social, psic??logo, psiquiatra u otro consejero. ??? Informaci??n. Comun??quese con la Asociaci??n Estadounidense de Diabetes, en www.diabetes.org o al [phone]. Otra buena matthew es la Asociaci??n de Especialistas en Educaci??n y Atenci??n de la Diabetes (Association of Diabetes Care & Education Specialists), en www.diabeteseducator.org/mffmlc-ntcp-aldxulci. ?? Last Reviewed Date: 2021 ?? [id number] The [employer]. Todos los derechos reservados. Esta informaci??n no pretende sustituir la atenci??n m??dica profesional. S??lo joiner m??dico puede diagnosticar y tratar un problema de viraj. ?? Patient Care team information Care Team Personnel Name: Ting Packer MD Position: [facility] Outreach Member Role: PCP Address: Address: [address] [place] [address] [address] [place] [address]- [place] Name: Mely CASTELLANOS, Marcella Position: [facility] RN Member Role: Primary Care Nurse Care Team Related Persons Name: SHAHAB HERCULES Address: home [address] [place] [id number] Name: TING MCKENNA Name: KIRA KEITH Address: [place] [address] Name: RISA KEITH Address: [facility]
--- OUTSIDE RECORDS SUMMARY | 2023-10-21 00:09 | XMS_ITS | Continuity of Care Document ---
Author Organization [facility] Address [address] [place] [address]- Care Team Providers Care Tsa Screener Name Role Phone Joshua Hampton MD, Allyson Osman Primary Care Physici an Encounter [facility] Date(s): 07/25/23 - 08/24/23 [facility] [address] [place] [address]- [place] Allergies, Adverse Reactions, Alerts Substance Reaction Severity Status ciprofloxacin Active aspirin Active shellfish hives Active Immunizations Given and Recorded Vaccine Date Status Refusal Reason Influenza Inactive (IM) (oldterm) 1 12/05/07 Given Pneumococcal Vaccine (oldterm) 2 09/30/07 Given 1Admin Note: SANOFI PASTEUR 2Result Comment: [id number] exp [id number] Medications Advair Diskus 250 mcg-50 mcg inhalation [...] 07/25/23 13:25:00 EDT, Route to Pharmacy Electronically, [facility], 150, cm, 07/05/23 15:49:00 EDT, Height, 79.5, kg, 03/15/23 21:25:00 Christine WRAY Start Date: 07/25/23 Stop Date: 07/19/24 Status: [...] Team Personnel Name: Allyson Packer MD Position: [facility] Outreach Member Role: PCP Address: Address: [address] [place] [address] [address] [place] [address]- Care Team Related Persons Name: SHAHAB HERCULES Address: home [address] [place] [address] Name: ALLYSON MCKENNA Name: KIRA DOTSON Address: [place] [address] Name: RISA DOTSON
--- OUTSIDE RECORDS SUMMARY | 2023-10-21 00:09 | XMS_ITS | Continuity of Care Document ---
Author Organization [facility] Address [address] [place] [address]- Care Team Providers Care Mat Machine Operator Name Role Phone Allyson Packer MD Primary Care Physici an Encounter [facility] Date(s): 01/24/23 - 04/07/23 [facility] [address] [place] [address]- Attending Physician: Kevon Wolff MD Admitting Physician: Kevon Wolff MD Referring Physician: Allyson Packer MD Allergies, Adverse Reactions, Alerts Substance Reaction Severity Status ciprofloxacin Active aspirin Active shellfish hives Active Immunizations Given and Recorded Vaccine Date Status Refusal Reason Influenza Inactive (IM) (oldterm) 1 12/05/07 Given Pneumococcal Vaccine (oldterm) 2 09/30/07 Given 1Admin Note: SANOFI PASTEUR 2Result Comment: [id number] exp [id number] Medications Advair Diskus 250 mcg-50 mcg inhalation [...] 02/06/23 15:57:00 EST, Route to Pharmacy Electronically, [facility], 150, cm, 08/31/22 16:04:00 EDT, [...] on: 03/22/17 Sex Cardiology Outpatient Note * Kevon Wolff MD: PERFORM Event Display: Cardiology Note Office Authored Date: [id number] The patient did not show for her f/u appointment today. Patient Care team information Care Team Personnel Name: Allyson Packer MD Position: [facility] Outreach Member Role: PCP Address: Address: [address] [place] [address] [address] [place] [address]- Name: Marcella Boone RN Position: [facility] RN Member Role: Primary Care Nurse Care Team Related Persons Name: DELISA SHAHAB Address: home [address] [place] [address] Name: ALLYSON MCKENNA Name: KIRA DOTSON Address: [place] [address] Name: RISA DOTSON Address: home [place]
--- OUTSIDE RECORDS SUMMARY | 2023-10-21 00:09 | XMS_ITS | Continuity of Care Document ---
Author Organization [facility] Address [address] [place] [address]- Care Team Providers Care Pastry Cook Name Role Phone Allyson Packer MD Primary Care Physici an Encounter [facility] [place] Date(s): 03/27/23 - 07/06/23 [facility] [address] [place] [address]- Attending Physician: Zechariah Reyez MD Admitting Physician: Zechariah Reyez MD Referring Physician: Allyson Packer MD Allergies, Adverse Reactions, Alerts Substance Reaction Severity Status ciprofloxacin Active aspirin Active shellfish hives Active Immunizations Given and Recorded Vaccine Date Status Refusal Reason Influenza Inactive (IM) (oldterm) 1 12/05/07 Given Pneumococcal Vaccine (oldterm) 2 09/30/07 Given 1Admin Note: SANOFI PASTEUR 2Result Comment: [id number] exp [id number] Medications Advair Diskus 250 mcg-50 mcg inhalation [...] 02/06/23 15:57:00 EST, Route to Pharmacy Electronically, [facility], 150, cm, 08/31/22 16:04:00 [...] Care team information Care Team Personnel Name: Joshua Hampton MD, Allyson Osman Position: S Outreach Member Role: PCP Address: Address: [address] [place] [address] [address] [place] [address]- Care Team Related Persons Name: SHAHAB HERCULES Address: home [address] [place] [address] Name: ALLYSON MCKENNA Name: KIRA DOTSON Address: [place] [address] Name: RISA DOTSON
--- OUTSIDE RECORDS SUMMARY | 2023-10-21 00:09 | XMS_ITS | Continuity of Care Document ---
Author Organization [facility] Address [address] [place] [address]- Care Team Providers Care Seasonal Clerk Name Role Phone Joshua Hampton MD, Allyson Osman Primary Care Physici an Encounter [facility] [place] Date(s): 07/05/23 - 10/12/23 [facility] [address] [place] [address]- Attending Physician: Zechariah Reyez MD Admitting Physician: Zechariah Reyez MD Allergies, Adverse Reactions, Alerts Substance Reaction Severity Status ciprofloxacin Active aspirin Active shellfish hives Active Immunizations Given and Recorded Vaccine Date Status Refusal Reason Influenza Inactive (IM) (oldterm) 1 12/05/07 Given Pneumococcal Vaccine (oldterm) 2 09/30/07 Given 1Admin Note: SANOFI PASTEUR 2Result Comment: [id number] 0519x exp [id number] Medications Advair Diskus 250 mcg-50 mcg inhalation [...] 07/25/23 13:25:00 EDT, Route to Pharmacy Electronically, [facility], 150, cm, 07/05/23 15:49:00 EDT, [...] Personnel Name: Allyson Packer MD Position: [facility] Outreach Member Role: PCP Address: Address: [address] [place] [address] [address] [place] [address]- Care Team Related Persons Name: SHAHAB HERCULES Address: home [address] [place] [address] Name: ALLYSON MCKENNA Name: KIRA DOTSON Address: [place] [address] Name: RISA DOTSON
--- OUTSIDE RECORDS SUMMARY | 2023-10-21 00:09 | XMS_ITS | Continuity of Care Document ---
Author Organization [facility] Address [address] [place] [address]- Care Team Providers Care Numerical Control Router Operator Name Role Phone Joshua Hampton MD, Allyson Osman Primary Care Physici an Encounter [facility] [place] Date(s): 08/29/23 - 09/28/23 [facility] [address] [place] [address]- [place] Allergies, Adverse Reactions, Alerts Substance Reaction Severity Status ciprofloxacin Active aspirin Active shellfish hives Active Immunizations Given and Recorded Vaccine Date Status Refusal Reason Influenza Inactive (IM) (oldterm) 1 12/05/07 Given Pneumococcal Vaccine (oldterm) 2 09/30/07 Given 1Admin Note: SANOFI PASTEUR 2Result Comment: [id number] 0519x exp [id number] Medications Advair Diskus 250 mcg-50 mcg inhalation [...] 07/25/23 13:25:00 EDT, Route to Pharmacy Electronically, [facility], 150, cm, 07/05/23 15:49:00 EDT, [...] Team Personnel Name: Allyson Packer MD Position: [facility] Outreach Member Role: PCP Address: Address: [address] [place] [address] [address] [place] [address]- Care Team Related Persons Name: SHAHAB HERCULES Address: home [address] [place] [address] Name: ALLYSON MCKENNA Name: KIRA DOTSON Address: [place] [address] Name: RISA DOTSON
--- OUTSIDE RECORDS SUMMARY | 2023-10-21 00:09 | XMS_ITS | Continuity of Care Document ---
Author Organization [facility] Address [address] [place] [address]- Care Team Providers Care Communications Assistant Name Role Phone Joshua Hampton MD, Allyson Osman Primary Care Physici an [place] [facility] [place](s): 03/09/23 - 04/08/23 [facility] [address] [place] [address]- [place] Allergies, Adverse Reactions, Alerts Substance Reaction Severity Status ciprofloxacin Active aspirin Active shellfish hives Active Immunizations Given and Recorded Vaccine Date Status Refusal Reason Influenza Inactive (IM) (oldterm) 1 12/05/07 Given Pneumococcal Vaccine (oldterm) 2 09/30/07 Given 1Admin Note: SANOFI PASTEUR 2Result Comment: [id number] 0519x exp [id number] Medications Advair Diskus 250 mcg-50 mcg inhalation [...] 02/06/23 15:57:00 EST, Route to Pharmacy Electronically, [facility], 150, cm, 08/31/22 16:04:00 EDT, [...] Team Personnel Name: Allyson Packer MD Position: [facility] Outreach Member Role: PCP Address: Address: [address] [place] [address] [address] [place] [address]- Name: Marcella Boone RN Position: S RN Member Role: Primary Care Nurse Care Team Related Persons Name: SHAHAB HERCULES Address: home [address] [place] [address] Name: ALLYSON MCKENNA Name: KIRA DOTSON Address: [place] [address] Name: RISA DOTSON Address: [facility]
--- OUTSIDE RECORDS SUMMARY | 2023-10-21 00:09 | XMS_ITS | Continuity of Care Document ---
Author Organization [facility] Address [address] [place] [address]- Care Team Providers Care Stone Processing Machine Operator Name Role Phone Joshua Hampton MD, Allyson Osman Primary Care Physici an Encounter [facility] [place] Date(s): 06/05/23 - 07/05/23 [facility] [address] [place] [address]- [place] Allergies, Adverse Reactions, Alerts Substance Reaction Severity Status ciprofloxacin Active aspirin Active shellfish hives Active Immunizations Given and Recorded Vaccine Date Status Refusal Reason Influenza Inactive (IM) (oldterm) 1 12/05/07 Given Pneumococcal Vaccine (oldterm) 2 09/30/07 Given 1Admin Note: SANOFI PASTEUR 2Result Comment: [id number] 0519x exp [id number] Medications Advair Diskus 250 mcg-50 mcg inhalation [...] 02/06/23 15:57:00 EST, Route to Pharmacy Electronically, [facility], 150, cm, 08/31/22 16:04:00 EDT, Height [...] Team Personnel Name: Allyson Packer MD Position: [facility] Outreach Member Role: PCP Address: Address: [address] [place] [address] [address] [place] [address]- [place] Care Team Related Persons Name: SHAHAB HERCULES Address: home [address] [place] [address] Name: ALLYSON MCKENNA Name: KIRA DOTSON Address: [place] [address] Name: RISA DOTSON Address: [facility]
--- OUTSIDE RECORDS SUMMARY | 2023-10-21 00:09 | XMS_ITS | Continuity of Care Document ---
Author Organization [facility] Address [address] [place] [address]- Care Team Providers Care College Sports Assistant Name Role Phone Allyson Packer MD Primary Care Physici an Encounter [facility] [place] Date(s): 02/08/23 - 04/07/23 [facility] [address] [place] [address]- Attending Physician: Zechariah Reyez MD Admitting Physician: Zechariah Reyez MD Referring Physician: Allyson Packer MD Allergies, Adverse Reactions, Alerts Substance Reaction Severity Status ciprofloxacin Active aspirin Active shellfish hives Active Immunizations Given and Recorded Vaccine Date Status Refusal Reason Influenza Inactive (IM) (oldterm) 1 12/05/07 Given Pneumococcal Vaccine (oldterm) 2 09/30/07 Given 1Admin Note: SANOFI PASTEUR 2Result Comment: [id number] 0519x exp [id number] Medications Advair Diskus 250 mcg-50 mcg inhalation [...] 02/06/23 15:57:00 EST, Route to Pharmacy Electronically, [facility], 150, cm, 08/31/22 16:04:00 EDT, [...] Team Personnel Name: Allyson Packer MD Position: [facility] Outreach Member Role: PCP Address: Address: [address] [place] [address] [address] [place], [place] [address] Name: Mely CASTELLANOS, Marcella Position: S RN Member Role: Primary Care Nurse Care Team Related Persons Name: SHAHAB HERCULES Address: home [address] [place] [address] Name: ALLYSON MCKENNA Name: KIRA DOTSON Address: [place] [address] Name: RISA DOTSON Address: [facility]
--- OUTSIDE RECORDS SUMMARY | 2023-10-21 00:10 | XMS_ITS | Continuity of Care Document ---
Author Organization [facility] Address [address] [place] [address]- Care Team Providers Care Mental Health Orderly Name Role Phone Joshua Hampton MD, Allyson Osman Primary Care Physici an Encounter [facility] [place] Date(s): 08/29/23 - 09/28/23 [facility] [address] [place] [address]- Attending Physician: Rosina Bravo Admitting Physician: Rosina Bravo Referring Physician: AdmtrRosina Allergies, Adverse Reactions, Alerts Substance Reaction Severity Status ciprofloxacin Active aspirin Active shellfish hives Active Immunizations Given and Recorded Vaccine Date Status Refusal Reason Influenza Inactive (IM) (oldterm) 1 12/05/07 Given Pneumococcal Vaccine (oldterm) 2 09/30/07 Given 1Admin Note: SANOFI PASTEUR 2Result Comment: [id number] 0519x exp [id number] Medications Advair Diskus 250 mcg-50 mcg inhalation [...] 07/25/23 13:25:00 EDT, Route to Pharmacy Electronically, [facility], 150, cm, 07/05/23 15:49:00 EDT, Height, 79.5, kg, 03/15/23 21:25:00 NILS DMary Beth. Start Date: 07/25/23 Stop Date: 07/19/24 Status: [...] Cardiology * Event Display: Cardiology Office Note, Non- Authored Date: * Event Display: Transtelephonic Arrhythmia Monitoring Authored Date: * Event Display: Transtelephonic Arrhythmia Monitoring Authored Date: * Event Display: Transtelephonic Arrhythmia Monitoring Authored Date: * Event Display: Cardiology Office Note, Non-BH Authored Date: Cardiology Outpatient Note * Soo Campuzano: REVIEW Soo Campuzano: REVIEW, SIGN, VERIFY Event Display: Cardiology Note Office Authored Date: Patient: ALLYSON KEITH Age: 50 years Sex: [...] further questionsor concerns. Sincerely, Elise Middleton NP [facility] Cardiology Patient Care team information Care Team Personnel Name: Allyson Packer MD Position: [facility] Outreach Member Role: PCP Address: Address: [address] [place] [address] [address] [place] [address]- [place] Care Team Related Persons Name: SHAHAB HERCULES Address: home [address] [place] [address] Name: ALLYSON MCKENNA Name: KIRA KEITH Address: [place] [address] Name: RISA KEITH
--- OUTSIDE RECORDS SUMMARY | 2023-10-21 00:10 | XMS_ITS | Continuity of Care Document ---
Author Organization [facility] Address [address] [place] [address]- Care Team Providers Care Accounting Associate Name Role Phone Joshua Hampton MD, Allyson Osmna Primary Care Physici an Encounter [facility] [place] Date(s): 07/30/23 - 09/22/23 [facility] [address] [place] [address]- Attending Physician: Zechariah Reyez MD Admitting Physician: Zechariah Reyez MD Referring Physician: Zechariah Reyez MD Allergies, Adverse Reactions, Alerts Substance Reaction Severity Status ciprofloxacin Active aspirin Active shellfish hives Active Immunizations Given and Recorded Vaccine Date Status Refusal Reason Influenza Inactive (IM) (oldterm) 1 12/05/07 Given Pneumococcal Vaccine (oldterm) 2 09/30/07 Given 1Admin Note: SANOFI PASTEUR 2Result Comment: [id number] 0519x exp [id number] Medications Advair Diskus 250 mcg-50 mcg inhalation [...] 07/25/23 13:25:00 EDT, Route to Pharmacy Electronically, [facility], 150, cm, 07/05/23 15:49:00 EDT, [...] Team Personnel Name: Allyson Packer MD Position: [facility] Outreach Member Role: PCP Address: Address: [address] [place] [address] [address] [place] [address]- Care Team Related Persons Name: SHAHAB HERCULES Address: home [address] [place] [address] Name: ALLYSON MCKENNA Name: KIRA DOTSON Address: [place] [address] Name: RISA DOTSON
== END 2023-10-19 11:30 | disposition home or self-care (01) | DRG 141 ==
LOC: HO.ED 09:31 → HO.EDOVER 15:11
PROVIDERS: Emergency Medicine; Admitting Provider Student in an Organized Health Care Education/Training Program; Emergency Provider Emergency Medicine; PCP Internal Medicine; Visit Provider Hospitalist
DX: J45.901 Unspecified asthma with (acute) exacerbation (principal); I44.2 Atrioventricular block, complete; J44.1 Chronic obstructive pulmonary disease with (acute) exacerbation; E11.9 Type 2 diabetes mellitus without complications; I10 Essential (primary) hypertension; F39 Unspecified mood [affective] disorder; G47.33 Obstructive sleep apnea (adult) (pediatric); M06.9 Rheumatoid arthritis, unspecified; Z95.2 Presence of prosthetic heart valve; Z20.822 Contact with and (suspected) exposure to COVID-19; Z91.199 Patient's noncompliance with other medical treatment and regimen due to unspecified reason; Z87.891 Personal history of nicotine dependence; Z79.51 Long term (current) use of inhaled steroids; Z79.899 Other long term (current) drug therapy
CPT/HCPCS: 0241U; 36415; 71045; 80048; 82803; 82947; 83880; 84484; 85025; 93005; 94640; 99285; J1650; J2919; J3475

== ENCOUNTER → 2023-10-18 14:25 | Outpatient (BNV) | payer MEDICAID, SELFPAY | PROVIDERS: Admitting Provider Student in an Organized Health Care Education/Training Program; Emergency Provider Emergency Medicine; Visit Provider Student in an Organized Health Care Education/Training Program | DX: J44.1 Chronic obstructive pulmonary disease with (acute) exacerbation (principal); J45.901 Unspecified asthma with (acute) exacerbation | CPT/HCPCS: 99222; 99239 ==

== ENCOUNTER 2023-11-06 16:45 | Emergency (ER) | payer MEDICAID, SELFPAY ==
[2023-11-06] VITALS (8 sets, daily range): BP systolic 135–180; BP diastolic 77–100; PULSE 63–80; RESP 16–32; TEMP 36.6–37; O2SAT 89–100; BMI 25.2
--- NOTE | ~2023-11-06 | XR_ITS ---
EXAMINATION: XR CHEST CLINICAL INFORMATION: Shortness of breath COMPARISON: Chest x-ray on 10/18/2023 TECHNIQUE: Frontal view of the chest was obtained. FINDINGS: No significant abnormality is noted involving the heart, lungs, mediastinum, bony thorax or soft tissues. Right chest single-lead cardiac device. XR/XR chest 1V IMPRESSION: No acute disease. Electronically signed by: Kami Sinha MD 11/06/2023 08:03 PM EDT
--- NOTE | 2023-11-06 17:14 | ECG_ITS ---
Test Reason : DYSPNEA Blood Pressure : / mmHG Vent. Rate : 070 BPM Atrial Rate : 070 BPM P-R Int : 000 ms QRS Dur : 156 ms QT Int : 442 ms P-R-T Axes : 080 -77 093 degrees QTc Int : 477 ms Ventricular-paced rhythm with frequent Premature ventricular complexes Abnormal ECG When compared with ECG of 18-OCT-2023 13:55, Premature ventricular complexes are now Present Vent. rate has increased BY 9 BPM Referred By: Giana Purvis Electronically Signed By:MATT GRANDE
--- NOTE | 2023-11-06 17:30 | ED_ITS ---
HPI - SOB/Dyspnea General Chief Complaint: Dyspnea Stated Complaint: breathing issue?, sob, htn Time Seen by Provider: 11/06/23 16:49 Source: patient and EMS Mode of arrival: EMS Limitations: language barrier (Moroccan-speaking crusher operator utilized) History of Present Illness HPI Narrative: Patient is a 62-year-old female who presents to the emergency department via EMS. She asked her mother to contact EMS as she was experiencing sudden onset of shortness of breath. By her account this started 30 minutes prior to arrival. When EMS arrived she was administering a nebulizer treatment, however she does state that her shortness of breath feels different from her typical asthma. She is unable to tell me what feels different from it. She adamantly denies having any chest pain at this time. She reports that earlier today she was feeling well and not experiencing any shortness of breath or difficulty breathing. Denies recent URI symptoms. Denies dizziness, lightheadedness, numbness or tingling. Additionally she denies any fevers chills nausea vomiting or abdominal pain. She admits that she had minimal relief from her nebulizer after taking it. She is endorsing a recent history involving [facility] though the exact procedures for/treatment is unclear to me, she reports her pacemaker being replaced 1 week ago, however I do not see any new surgical incisions that would confirm this, she states she had right groin access ? Angiography. Will attempt to obtain records. Of note nursing staff does report that once transferred over to ED stretcher she was taken off of supplemental O2 for approximately 5 minutes was not found to have room air hypoxia, O2 saturation was at 95%, she was placed back on 2 L via nasal cannula for comfort. Related Data Home Medications ?Medication ?Instructions ?Recorded ?Confirmed amitriptyline 25 mg tablet 25 mg PO BEDTIME 07/03/22 10/18/23 bisacodyl 5 mg tablet,delayed 10 mg PO BEDTIME 07/03/22 10/18/23 release calcium carbonate 600 mg-vitamin 1 tab PO DAILY 07/03/22 10/18/23 D3 10 mcg (400 unit) tablet clopidogrel 75 mg tablet 75 mg PO DAILY 07/03/22 10/18/23 cyanocobalamin (vitamin B-12) 1,000 mcg PO DAILY 07/03/22 10/18/23 1,000 mcg tablet folic acid 1 mg tablet 1 mg PO DAILY 07/03/22 10/18/23 gabapentin 100 mg capsule 100 mg PO TID 07/03/22 10/18/23 hydrochlorothiazide 12.5 mg tablet 12.5 mg PO DAILY 07/03/22 10/18/23 montelukast 10 mg tablet 10 mg PO BEDTIME 07/03/22 10/18/23 sertraline 50 mg tablet 50 mg PO DAILY 07/03/22 10/18/23 melatonin 5 mg tablet 5 mg PO BEDTIME PRN insomnia 03/14/23 10/18/23 tiotropium bromide 18 mcg capsule 1 cap inhalation DAILY 03/14/23 10/18/23 with inhalation device (Spiriva with HandiHaler) albuterol sulfate 2.5 mg/3 mL 2.5 mg inhalation Q4-6H PRN 05/21/23 10/18/23 (0.083 %) solution for nebulization Shortness Of Breath/Wheezing albuterol sulfate 90 mcg/actuation 2 puff inhalation Q4H PRN Wheezing 05/21/23 10/18/23 aerosol inhaler (Ventolin HFA) amlodipine 5 mg tablet 5 mg PO DAILY 08/03/23 10/18/23 fluticasone 500 mcg-salmeterol 50 1 ea inhalation BID 10/18/23 10/18/23 mcg/dose blistr powdr for inhalation (Advair Diskus) Previous Rx's ?Medication ?Instructions ?Recorded acetaminophen 650 mg 650 mg PO Q8H PRN for pain #90 tabs 01/04/23 tablet,extended release azithromycin 500 mg tablet 500 mg PO Q24H #3 tabs 10/19/23 prednisone 20 mg tablet 20 mg PO DAILY #4 tabs 10/19/23 azithromycin 250 mg tablet See Rx Instructions PO .COMPLEX #6 11/06/23 tabs prednisone 20 mg tablet 40 mg (2 x 20 mg) PO DAILY #10 tabs 11/06/23 Allergies Allergy/AdvReac Type Severity Reaction Status Date / Time latex [LATEX] Allergy Severe DIFFICULTY Verified 11/06/23 17:13 BREATHING aspirin [Aspirin] Allergy Intermediate ITCHING, Verified 11/06/23 17:13 itchiness ciprofloxacin [From CIPRO] Allergy Intermediate DIAPHORESIS Verified 11/06/23 17:13 /PURITIS Penicillins [PENICILLINS] Allergy Unknown UNKNOWN Verified 11/06/23 17:13 EHMALATHA Inhibitors AdvReac Intermediate COUGH Verified 11/06/23 17:13 [HEMALATHA INHIBITORS] Review of Systems 2 Review of Systems: Yes all other systems are reviewed and are negative [facility] Past Medical History Attestation statement: The following information was validated with the patient. Source: old records reviewed Medical History Severe aortic stenosis COPD (chronic obstructive pulmonary disease) Pacemaker Asthma with exacerbation Smoking Restrictive airway disease MARY (obstructive sleep apnea) MARY on CPAP Reactive airways dysfunction syndrome Rheumatoid arthritis Fibromyalgia GERD (gastroesophageal reflux disease) MARY (obstructive sleep apnea) Aortic valve endocarditis COPD (chronic obstructive pulmonary disease) COPD exacerbation Overactive bladder Bronchitis Allergic rhinitis COPD (chronic obstructive pulmonary disease) Asthma Hx of cardiac pacemaker Hx of migraines Hx of coronary artery disease History of urinary incontinence Hx of essential hypertension History of depression Hx of drug abuse Hx of hyperlipidemia Hx of allergic rhinitis History of enuresis Hx of osteoarthritis Hx of pilonidal cyst Family history of GERD History of arthritis Hx of diabetes mellitus Surgical History History of surgical removal of pilonidal cyst Hx of bilateral cataract extraction Hx of colonoscopy History of cystoscopy History of hysterectomy Hx of aortic valve replacement Hx laparoscopic cholecystectomy History of epidermal inclusion cyst excision Social History Social History Household Members: Family Household Members Other:: son Housing: Apartment Do you presently have visiting nurse or other home services: Yes ([employer] ARCH[employer] everyday) Alcohol intake: never Comment: refusing alarms Patient Tobacco Use Status: Former Tobacco user Tobacco use type: Cigarette Cigarettes Per Day: 3 Smoked in Last 30 Days: No e-Cigarette/Vaping Use: Never Used Second Hand Smoke Exposure: No Substance Use Type: Former Substance User Advance Directives: Yes Advance Directives on File: Yes Advance Directives Date on File: 11/08/21 Do you have a plan to hurt others: No Plan Patient : No service: No Current occupational status: unemployed and disabled Physical Exam 2 Vital Signs: Vital Signs: Last Vital Signs Temp 98.3 F 11/06/23 22:47 Pulse 63 11/06/23 22:47 Resp 16 11/06/23 22:47 BP 143/81 H 11/06/23 22:47 Pulse Ox 100 11/06/23 22:47 O2 Del Method Room Air 11/06/23 19:42 O2 Flow Rate 3 11/06/23 19:42 Oxygen Flow Rate 2 11/06/23 17:00 BMI result Body Mass Index 25.2 Appearance: Alert.?Oriented to person, place and time. No acute distress.?Normal affect. Eyes: Pupils equal, round and reactive to light.? ENT: Pharynx normal.?? Neck: Normal inspection.? Neck supple.?? CVS: Heart sounds normal. Normal heart rate and rhythm.? Pulses normal.?? Respiratory: Dyspneic, speaking short sentences, no retractions, no inspiratory wheezing, expiratory wheezing throughout bilaterally. Abdomen: Soft and non-tender. Normoactive bowel sounds. No pulsatile mass.?? Skin: Skin warm and dry.? Normal skin color.? Normal skin turgor.?? Extremities: No lower extremity edema.? No calf ttp? Neuro: Moves all extremities spontaneously. Sensation intact bilaterally. CN II- XII intact. No focal neuro deficits. Ambulates with normal steady gait. Course Reevaluation(s) Reevaluation #1: [facility] communication with electric accounting machine operator, Dr. Borrero; reviewed patient case as well as EKG from today and most recent prior, does not feel that this is currently STEMI. Time: 17:39 Reevaluation #2: Reviewed limited records from [facility] Simin [facility], patient had cardiac catheterization 10/25/[address] Segovia- angiography, [facility], [facility] , having front office secretary attempt to obtain further detailed record Time: 17:44 Reevaluation #3: Reviewed records obtained from [facility] coronary angiogram revealing normal LMCA/RCA, minimal luminal irregularities of LAD and LCX -- recommendation to continue evaluation for aortic valve replacement Time: 19:31 Additional Reevaluation(s): Delta troponin not with 50% increase. Dr. Borrero recommending discharge home outpatient follow-up with Cardiology. Given her presenting shortness of breath and wheezing, I plan to treat as asthma/COPD exacerbation. She reports significant improvement after receiving nebulizer treatment. Plan to discharge home with course of azithromycin, and prednisone. Discussed strict return precautions. She is requesting discharge home which again I feel is reasonable at this time. Medications Administered Discontinued Medications Generic Name Dose Route Start Last Admin Trade Name Freq PRN Reason Stop Dose Admin Albuterol Sulfate 2.5 mg/ 5 mg 11/06/23 18:06 11/06/23 18:12 Albuterol Sulfate 2.5 mg INHALE 11/06/23 18:07 5 mg ONCE ONE Administration Albuterol Sulfate 5 mg/ 0 mg 11/06/23 19:31 11/06/23 19:33 Albuterol/Ipratropium 3 ml INHALE 11/06/23 19:32 1 each ONCE ONE Administration Medical Decision Making Medical Decision Making MDM Narrative: Patient is a 62-year-old female with past medical history of severe aortic stenosis, CAD, pacemaker for complete heart block, infective endocarditis 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, asthma/ COPD overlap syndrome, MARY use CPAP, rheumatoid arthritis, fibromyalgia, GERD, EM hypertension, hyperlipidemia, osteoarthritis presenting for sudden onset shortness of breath 30 minutes prior to arrival as per HPI 17:10 - he is on an antiplatelet agent and reports compliance with her Plavix today, telemetry in the room concerning for possible ST elevation ventricular paced rhythm frequent PVCs, wide complex QRS however when compared to prior EKG from 10/18/2023 I have concern for more pronounced ST elevation in lead III, III, aVF, has been trickle rate of 70, QTC 477; consulting with Cardiology Dr. Borrero Will obtain CBC to evaluate for leukocytosis/ anemia, CMP and lipase to evaluate for abnormal electrolytes /abnormal renal function/ abnormal hepatic/biliary function, EKG and troponin to evaluate for ischemia/ACS. Chest x-ray to evaluate for consolidation/ infiltrate/ mass/ pulmonary congestion, VBG, viral panel Differential Diagnosis Differential Diagnoses: The differential diagnosis associated with the presentation includes (See narrative above) Admission/Observation Consideration of admission/observation: Escalation of care including admission/observation considered (See narrative above and course narrative for further detail) Consult Healthcare Provider Management of the patient was discussed with: Sales Support Consultant (See course narrative) Lab Data [facility] Lab Attestation statement: I reviewed the patient's lab results. (See course narrative) 11/06/23 18:14 11/06/23 18:14 Labs: Lab Results 11/06/23 11/06/23 11/06/23 Range/Units 18:14 18:26 20:53 WBC 8.0 (4.8-10.8) X10*3/uL RBC 4.83 (4.20-5.50) X10*6/uL Hgb 14.5 (12.0-16.0) g/dl Hct 42.3 (37.0-47.0) % MCV 87.6 (80.0-98.0) fL MCH 30.0 (27.0-33.0) pg MCHC 34.3 (31.0-35.0) g/dl RDW 13.2 (11.0-16.0) % Plt Count 289 (160-400) X10*3/uL MPV 9.5 (9.4-12.3) fL Immature Gran % (Auto) 0.3 (0.0-0.4) % Neut % (Auto) 68.7 (45-73) % Lymph % (Auto) 12.6 L (20-40) % Phillips % (Auto) 8.3 (2-11) % Eos % (Auto) 9.3 H (0-4) % Baso % (Auto) 0.8 (0-2) % Lymph # (Auto) 1.0 L (1.2-4.9) X10*3/uL Phillips # (Auto) 0.7 (0.1-1.2) X10*3/uL Eos # (Auto) 0.7 H (0.0-0.4) X10*3/uL Baso # (Auto) 0.1 (0.0-0.2) X10*3/uL Abs Immat Gran (auto) 0.02 (0.00-0.03) X10*3/uL Absolute Neuts (auto) 5.5 (2.0-8.3) x10*3/uL Absolute Nucleated RBC 0.000 (0.0-0.012) X10*3/uL Nucleated RBC % (auto) 0.0 (0.0-0.2) /100WBC PT 12.1 (11.1-13.3) SEC INR 1.0 (0.9-1.1) VBG pH 7.42 (7.32-7.43) VBG pCO2 48 mmHg VBG pO2 110 mmHg VBG HCO3 31 H (22-26) mmol/L VBG O2 Saturation 100.0 % VBG Base Excess 6.0 mmol/L Sodium 142 (135-145) mmol/L Potassium 3.5 (3.3-5.1) mmol/L Chloride 107 (96-108) mmol/L Carbon Dioxide 28 (22-29) mmol/L Anion Gap 11 L (12-20) BUN 12 (9-16) mg/dL Creatinine 0.70 (0.5-1.4) mg/dL Estim Creat Clear Calc 65.5 Estimated GFR > 60 Random Glucose 134 H (60-115) mg/dL Calcium 9.7 (8.4-10.2) mg/dL Magnesium 2.1 (1.6-2.6) mg/dL Total Bilirubin 0.4 (0.0-1.0) mg/dL AST 21 (5-31) U/L ALT 15 (0-31) U/L Alkaline Phosphatase 71 (39-117) U/L Troponin I High Sens 8.2 (<3.5-17.0) ng/L B-Natriuretic Peptide 62 (<100) pg/mL Total Protein 6.6 (6.5-8.0) g/dL Albumin 4.0 (3.5-5.0) g/dL Lipase 14 (8-78) U/L Urine Color Yellow Urine Appearance Clear Urine pH 6.5 (5.0-9.0) Ur Specific [place] 1.015 (1.005-1.025) Urine Protein 30 (1+) H (Neg-Trace) mg/dL Urine Glucose (UA) Negative (Negative) mg/dL Urine Ketones Negative (Negative) mg/dL Urine Blood Negative (Negative) Urine Nitrite Negative (Negative) Ur Leukocyte Esterase Negative (Negative) Urine RBC 0-2 (0-2) /HPF Urine WBC 0-5 (0-5) /HPF Ur Squamous Epith Cells 0-2 (0-2) /HPF Urine Bacteria None Seen (None Seen) Hyaline Casts 0-2 (0-2) /LPF Influenza Type A (PCR) NEGATIVE (Negative) Influenza Type B (PCR) NEGATIVE (Negative) RSV RNA Qual (PCR) NEGATIVE (Negative) SARS-CoV-2 RNA (RT-PCR) NEGATIVE (Negative) 11/06/23 Range/Units 21:02 WBC (4.8-10.8) X10*3/uL RBC (4.20-5.50) X10*6/uL Hgb (12.0-16.0) g/dl Hct (37.0-47.0) % MCV (80.0-98.0) fL MCH (27.0-33.0) pg MCHC (31.0-35.0) g/dl RDW (11.0-16.0) % Plt Count (160-400) X10*3/uL MPV (9.4-12.3) fL Immature Gran % (Auto) (0.0-0.4) % Neut % (Auto) (45-73) % Lymph % (Auto) (20-40) % Phillips % (Auto) (2-11) % Eos % (Auto) (0-4) % Baso % (Auto) (0-2) % Lymph # (Auto) (1.2-4.9) X10*3/uL Phillips # (Auto) (0.1-1.2) X10*3/uL Eos # (Auto) (0.0-0.4) X10*3/uL Baso # (Auto) (0.0-0.2) X10*3/uL Abs Immat Gran (auto) (0.00-0.03) X10*3/uL Absolute Neuts (auto) (2.0-8.3) x10*3/uL Absolute Nucleated RBC (0.0-0.012) X10*3/uL Nucleated RBC % (auto) (0.0-0.2) /100WBC PT (11.1-13.3) SEC INR (0.9-1.1) VBG pH (7.32-7.43) VBG pCO2 mmHg VBG pO2 mmHg VBG HCO3 (22-26) mmol/L VBG O2 Saturation % VBG Base Excess mmol/L Sodium (135-145) mmol/L Potassium (3.3-5.1) mmol/L Chloride (96-108) mmol/L Carbon Dioxide (22-29) mmol/L Anion Gap (12-20) BUN (9-16) mg/dL Creatinine (0.5-1.4) mg/dL Estim Creat Clear Calc Estimated GFR Random Glucose (60-115) mg/dL Calcium (8.4-10.2) mg/dL Magnesium (1.6-2.6) mg/dL Total Bilirubin (0.0-1.0) mg/dL AST (5-31) U/L ALT (0-31) U/L Alkaline Phosphatase (39-117) U/L Troponin I High Sens 14.3 D (<3.5-17.0) ng/L B-Natriuretic Peptide (<100) pg/mL Total Protein (6.5-8.0) g/dL Albumin (3.5-5.0) g/dL Lipase (8-78) U/L Urine Color Urine Appearance Urine pH (5.0-9.0) Ur Specific [place] (1.005-1.025) Urine Protein (Neg-Trace) mg/dL Urine Glucose (UA) (Negative) mg/dL Urine Ketones (Negative) mg/dL Urine Blood (Negative) Urine Nitrite (Negative) Ur Leukocyte Esterase (Negative) Urine RBC (0-2) /HPF Urine WBC (0-5) /HPF Ur Squamous Epith Cells (0-2) /HPF Urine Bacteria (None Seen) Hyaline Casts (0-2) /LPF Influenza Type A (PCR) (Negative) Influenza Type B (PCR) (Negative) RSV RNA Qual (PCR) (Negative) SARS-CoV-2 RNA (RT-PCR) (Negative) Independent Interpretation I performed an independent interpretation of an: EKG (See narrative above) Radiology Impression Discussion of test interpretation with radiology: I have reviewed the radiologist's reading. Independent Historian Clinical information obtained from an independent historian. History obtained from or confirmed by: EMS External Record Review External record reviewed: Outpatient record Critical Care Time Critical Care Time Critical Care Time: Yes Total Critical Care Time: 45 Attestation: I personally attest to this critical care time spent taking care of the patient exclusive of all other billable procedures was approximately 45 minutes including initial evaluation of patient, ordering tests, x-ray interpretation, EKG interpretation, medical consultation, documentation, re-evaluation. Discharge Plan Discharge Clinical Impression: COPD exacerbation Patient Disposition: Home, Self-Care Instructions: COPD (Chronic Obstructive Pulmonary Disease) (ED) Additional Instructions: Prescriptions for asthma/COPD exacerbation were sent to your pharmacy. Please contact your electric accounting machine operator at [facility] to arrange for further follow-up outpatient. Prescriptions: New prednisone 20 mg tablet 40 mg PO DAILY Qty: 10 0RF azithromycin 250 mg tablet See Rx Instructions .ROUTE .COMPLEX Qty: 6 0RF Rx Instructions: For 250 mg dose pack: take 500 mg today (day 1), then 250 mg for 4 days (days 2-5) No Action acetaminophen 650 mg tablet extended release 650 mg PO Q8H PRN (Reason: for pain) Qty: 90 3RF tiotropium bromide [Spiriva with HandiHaler] 18 mcg capsule, w/inhalation device 1 cap inhalation DAILY melatonin 5 mg tablet 5 mg PO BEDTIME PRN (Reason: insomnia) montelukast 10 mg tablet 10 mg PO BEDTIME bisacodyl 5 mg tablet,delayed release (DR/EC) 10 mg PO BEDTIME gabapentin 100 mg capsule 100 mg PO TID sertraline 50 mg tablet 50 mg PO DAILY calcium carbonate-vitamin D3 600 mg-10 mcg (400 unit) tablet 1 tab PO DAILY hydrochlorothiazide 12.5 mg tablet 12.5 mg PO DAILY clopidogrel 75 mg tablet 75 mg PO DAILY amitriptyline 25 mg tablet 25 mg PO BEDTIME folic acid 1 mg tablet 1 mg PO DAILY cyanocobalamin (vitamin B-12) 1,000 mcg tablet 1,000 mcg PO DAILY albuterol sulfate 2.5 mg /3 mL (0.083 %) solution for nebulization 2.5 mg inhalation Q4-6H PRN (Reason: Shortness Of Breath/Wheezing) albuterol sulfate [Ventolin HFA] 90 mcg/actuation Hfa Aerosol Inhaler 2 puff INHALATION Q4H PRN (Reason: Wheezing) amlodipine 5 mg tablet 5 mg PO DAILY fluticasone propion-salmeterol [Advair Diskus] 500-50 mcg/dose blister with device 1 ea INHALATION BID azithromycin 500 mg Tablet 500 mg PO Q24H Qty: 3 0RF prednisone 20 mg tablet 20 mg PO DAILY Qty: 4 0RF Referrals: Ting Packer MD [Primary Care Provider] - Print Language: Moroccan
--- NOTE | 2023-11-06 17:51 | ECG_ITS ---
Test Reason : SOB Blood Pressure : / mmHG Vent. Rate : 061 BPM Atrial Rate : 058 BPM P-R Int : 000 ms QRS Dur : 152 ms QT Int : 468 ms P-R-T Axes : 000 -78 098 degrees QTc Int : 471 ms Ventricular-paced rhythm Abnormal ECG When compared with ECG of 06-NOV-2023 17:14, Premature ventricular complexes are no longer Present Vent. rate has decreased BY 9 BPM Referred By: Giana Purvis Electronically Signed By:MATT GRANDE
[2023-11-06] MEDS: Albuterol Sulfate 2.5 MG, Albuterol Sulfate (0.083%) 2.5 MG 5 MG INHALE (18:12)
[2023-11-06 18:21] LABS: MANUAL DIFF FLAG NO
[2023-11-06 18:23] LABS: Basophils Absolute Auto 0.1 X10*3/uL (0.0-0.2); Basophils Percent Auto 0.8 % (0-2); Eosinophils Absolute Auto 0.7 X10*3/uL (0.0-0.4); Eosinophils Percent Auto 9.3 % (0-4); Hematocrit 42.3 % (37.0-47.0); Hemoglobin 14.5 g/dl (12.0-16.0); Imm Gran Abs Auto 0.02 X10*3/uL (0.00-0.03); Imm Gran Pct Auto 0.3 % (0.0-0.4); Lymphocytes Percent Auto 12.6 % (20-40); Mean Corpuscular HGB Conc 34.3 g/dl (31.0-35.0); Mean Corpuscular Volume 87.6 fL (80.0-98.0); Mean Platelet Volume 9.5 fL (9.4-12.3); Monocytes Absolute Auto 0.7 X10*3/uL (0.1-1.2); Monocytes Percent Auto 8.3 % (2-11); Neutrophils Absolute Auto 5.5 x10*3/uL (2.0-8.3); Neutrophils Percent Auto 68.7 % (45-73); Platelet Count 289 X10*3/uL (160-400); Red Blood Count 4.83 X10*6/uL (4.20-5.50); Red Cell Distribution Width 13.2 % (11.0-16.0)
[2023-11-06 18:29] LABS: Prothrombin Time 12.1 SEC (11.1-13.3)
[2023-11-06 18:36] LABS: VBG HCO3 31 mmol/L (22-26); VBG pCO2 48 mmHg; VBG pH 7.42 (7.32-7.43); VBG pO2 110 mmHg
[2023-11-06 18:45] LABS: Alanine Aminotransferase 15 U/L (0-31); Alkaline Phosphatase 71 U/L (39-117); Anion Gap 11 (12-20); Aspartate Amino Transferase 21 U/L (5-31); Bilirubin Total 0.4 mg/dL (0.0-1.0); Blood Urea Nitrogen 12 mg/dL (9-16); Calcium 9.7 mg/dL (8.4-10.2); Carbon Dioxide 28 mmol/L (22-29); Chloride 107 mmol/L (96-108); Creatinine Clr Calc Pharmacy 65.5; Estimated Glomerular Filt Rate > 60; Glucose Random 134 mg/dL (60-115); Lipase 14 U/L (8-78); Magnesium 2.1 mg/dL (1.6-2.6); Potassium 3.5 mmol/L (3.3-5.1); Sodium 142 mmol/L (135-145); Total Protein 6.6 g/dL (6.5-8.0)
[2023-11-06 18:48] LABS: B Type Natriuretic Peptide 62 pg/mL (<100)
[2023-11-06 18:53] LABS: Troponin-I High Sensitivity 8.2 ng/L (<3.5-17.0)
[2023-11-06 19:00] LABS: Venous Blood Gas Refer to POC result
[2023-11-06 19:16] LABS: Influenza A PCR NEGATIVE (Negative); Influenza B PCR NEGATIVE (Negative); Resp Syncy Virus RNA Qual PCR NEGATIVE (Negative); SARS COV2 PCR INHOUSE NEGATIVE (Negative)
[2023-11-06] MEDS: Albuterol Sulfate 5 MG, Albuterol/Iprat 2.5/0.5MG 3 ML 3 ML INHALE (19:33)
[2023-11-06 20:58] LABS: Appearance Urine Clear; Color Urine Yellow; Glucose Urine UA Negative (Negative); Leukocyte Esterase Urine Negative (Negative); Nitrite Urine Negative (Negative); PH 6.5 (5.0-9.0); Specific Gravity - Urine 1.015 (1.005-1.025); UMIC TRIGGER UACC YES; Urine Blood Negative (Negative); Urine Ketones Negative (Negative); Urine Protein 30 (1+) mg/dL (Neg-Trace)
[2023-11-06 21:03] LABS: Bacteria Urine None Seen (None Seen); Hyaline Casts Urine 0-2 /LPF (0-2); RBC Urine 0-2 /HPF (0-2); Squamous Epithelial Cell Urine 0-2 /HPF (0-2); WBC Urine 0-5 /HPF (0-5)
[2023-11-06 21:29] LABS: Troponin-I High Sensitivity 14.3 ng/L (<3.5-17.0)
[2023-11-06] MEDS: predniSONE 20 MG TABLET 40 MG PO (23:31)
--- NOTE | 2023-11-06 23:36 | PC.NURSE ---
Provider notified and aware of pts wheezing Pt sat 97% on rm air Pt medicated per mar Plan of care ongoing.
== END 2023-11-06 23:48 | disposition home or self-care (01) ==
PROVIDERS: Nurse Practitioner Family; Emergency Provider Internal Medicine; PCP Internal Medicine
DX: J44.1 Chronic obstructive pulmonary disease with (acute) exacerbation (principal); Z03.818 Encounter for observation for suspected exposure to other biological agents ruled out; R06.02 Shortness of breath; E11.9 Type 2 diabetes mellitus without complications; I10 Essential (primary) hypertension; E78.5 Hyperlipidemia, unspecified; Z95.0 Presence of cardiac pacemaker; J45.909 Unspecified asthma, uncomplicated; G47.33 Obstructive sleep apnea (adult) (pediatric); Z99.89 Dependence on other enabling machines and devices; F17.200 Nicotine dependence, unspecified, uncomplicated; Z79.899 Other long term (current) drug therapy
CPT/HCPCS: 0241U; 36415; 71045; 80053; 81001; 81003; 82803; 83690; 83735; 83880; 84484; 85025; 85610; 93005; 94640; 99284; 99285

== ENCOUNTER 2023-11-09 22:38 | Inpatient (IN) | payer MEDICAID, SELFPAY ==
--- NOTE | ~2023-11-09 | XR_ITS ---
EXAMINATION: XR PORTABLE CHEST CLINICAL INFORMATION: Shortness of breath COMPARISON: 11/06/2023 TECHNIQUE: AP portable upright view of the chest FINDINGS: Single lead right pectoral pacemaker terminates at the right ventricular apex. Sternal wires overlie the chest. Cardiac silhouette is at the upper limits of normal in size. Pulmonary vasculature appears normal. No consolidation, pneumothorax, or pleural effusion. No acute osseous findings. XR/XR chest 1V IMPRESSION: No acute pulmonary findings. Borderline cardiomegaly. Electronically signed by: Mathew Aguiar MD 11/10/2023 12:47 AM EDT
[2023-11-09 22:44] VITALS: BP 212/131; PULSE 68; RESP 34; TEMP 36.4; O2SAT 94; BMI 20.7
--- NOTE | 2023-11-09 22:49 | ECG_ITS ---
Test Reason : CHEST PAIN Blood Pressure : / mmHG Vent. Rate : 079 BPM Atrial Rate : 000 BPM P-R Int : 000 ms QRS Dur : 150 ms QT Int : 440 ms P-R-T Axes : 000 -75 091 degrees QTc Int : 504 ms Ventricular-paced rhythm Abnormal ECG When compared with ECG of 09-NOV-2023 22:55, Vent. rate has increased Referred By: Mayra Vail Electronically Signed By:MATT GRANDE
--- NOTE | 2023-11-09 22:50 | ED_ITS ---
HPI - SOB/Dyspnea General Chief Complaint: Dyspnea Stated Complaint: Shortness of breath Time Seen by Provider: 11/09/23 22:46 Source: patient and EMS Mode of arrival: EMS Limitations: other History of Present Illness ED Provider: Dr. Juju Bess HPI Narrative: Patient comes to the emergency room complaining of shortness of breath. Patient here by ambulance. Patient was seen here 3 days ago, states that over the last 24 hours her shortness of breath gradually increase despite neb treatments. According to EMS, patient was found to have an oxygen of 70% on room air. CPAP was applied, DuoNeb was given, patient brought immediately to emergency room on arrival, patient took the CPAP off, states that she can not tolerated. Related Data Home Medications ?Medication ?Instructions ?Recorded ?Confirmed amitriptyline 25 mg tablet 25 mg PO BEDTIME 07/03/22 10/18/23 bisacodyl 5 mg tablet,delayed 10 mg PO BEDTIME 07/03/22 10/18/23 release calcium carbonate 600 mg-vitamin 1 tab PO DAILY 07/03/22 10/18/23 D3 10 mcg (400 unit) tablet clopidogrel 75 mg tablet 75 mg PO DAILY 07/03/22 10/18/23 cyanocobalamin (vitamin B-12) 1,000 mcg PO DAILY 07/03/22 10/18/23 1,000 mcg tablet folic acid 1 mg tablet 1 mg PO DAILY 07/03/22 10/18/23 gabapentin 100 mg capsule 100 mg PO TID 07/03/22 10/18/23 hydrochlorothiazide 12.5 mg tablet 12.5 mg PO DAILY 07/03/22 10/18/23 montelukast 10 mg tablet 10 mg PO BEDTIME 07/03/22 10/18/23 sertraline 50 mg tablet 50 mg PO DAILY 07/03/22 10/18/23 melatonin 5 mg tablet 5 mg PO BEDTIME PRN insomnia 03/14/23 10/18/23 tiotropium bromide 18 mcg capsule 1 cap inhalation DAILY 03/14/23 10/18/23 with inhalation device (Spiriva with HandiHaler) albuterol sulfate 2.5 mg/3 mL 2.5 mg inhalation Q4-6H PRN 05/21/23 10/18/23 (0.083 %) solution for nebulization Shortness Of Breath/Wheezing albuterol sulfate 90 mcg/actuation 2 puff inhalation Q4H PRN Wheezing 05/21/23 10/18/23 aerosol inhaler (Ventolin HFA) amlodipine 5 mg tablet 5 mg PO DAILY 08/03/23 10/18/23 fluticasone 500 mcg-salmeterol 50 1 ea inhalation BID 10/18/23 10/18/23 mcg/dose blistr powdr for inhalation (Advair Diskus) Previous Rx's ?Medication ?Instructions ?Recorded acetaminophen 650 mg 650 mg PO Q8H PRN for pain #90 tabs 01/04/23 tablet,extended release azithromycin 500 mg tablet 500 mg PO Q24H #3 tabs 10/19/23 prednisone 20 mg tablet 20 mg PO DAILY #4 tabs 10/19/23 azithromycin 250 mg tablet See Rx Instructions PO .COMPLEX #6 11/06/23 tabs prednisone 20 mg tablet 40 mg (2 x 20 mg) PO DAILY #10 tabs 11/06/23 Allergies Allergy/AdvReac Type Severity Reaction Status Date / Time latex [LATEX] Allergy Severe DIFFICULTY Verified 11/09/23 22:48 BREATHING aspirin [Aspirin] Allergy Intermediate ITCHING, Verified 11/09/23 22:48 itchiness ciprofloxacin [From CIPRO] Allergy Intermediate DIAPHORESIS Verified 11/09/23 22:48 /PURITIS Penicillins [PENICILLINS] Allergy Unknown UNKNOWN Verified 11/09/23 22:48 HEMALATHA Inhibitors AdvReac Intermediate COUGH Verified 11/09/23 22:48 [HEMALATHA INHIBITORS] Review of Systems 2 Review of Systems: Constitutional : No Weight loss, No Fever, No Chills, No Night Sweats, No Fatigue, No Malaise ENT/Mouth : No Hearing loss, No Ear Pain, No Nasal Congestion, No Sinus Pain, No Hoarseness, No sore throat, No Rhinorrhea, No Swallowing Difficulty Eyes: No Eye Pain, No Swelling, No Redness, No Foreign Body, No Discharge, No Vision Changes Cardiovascular : No Chest Pain, No SOB, No Dyspnea on Exertion, No Orthopnea, No Edema, No Palpitations Respiratory : complaining of cough, wheezing, shortness of breath Gastrointestinal : No Nausea, No Vomiting, No Diarrhea, No Constipation, No abdominal Pain, No Hematochezia, No Melena Genitourinary : no irregular bleeding, No Dysuria, No Urinary Frequency, No Hematuria, No Urinary Incontinence, No Urgency, No Flank Pain, No Urinary Flow Changes, No Hesitancy Musculoskeletal : No joint pain, No Myalgias, No Joint Swelling Skin : No Skin Lesions, No rash Neuro : No Weakness, No Numbness, No Paresthesias, No Loss of Consciousness, No Dizziness, No Headache Psych : No Anxiety/Panic, No Depression, No SI/HI/AH/VH, No Social Issues, Heme/Lymph: No Bruising, No Bleeding,No Lymphadenopathy Endocrine : No Polyuria, No Polydipsia, No Temperature Intolerance [facility] Past Medical History Medical History Severe aortic stenosis COPD (chronic obstructive pulmonary disease) Pacemaker Asthma with exacerbation Smoking Restrictive airway disease MARY (obstructive sleep apnea) MARY on CPAP Reactive airways dysfunction syndrome Rheumatoid arthritis Fibromyalgia GERD (gastroesophageal reflux disease) MARY (obstructive sleep apnea) Aortic valve endocarditis COPD (chronic obstructive pulmonary disease) COPD exacerbation Overactive bladder Bronchitis Allergic rhinitis COPD (chronic obstructive pulmonary disease) Asthma Hx of cardiac pacemaker Hx of migraines Hx of coronary artery disease History of urinary incontinence Hx of essential hypertension History of depression Hx of drug abuse Hx of hyperlipidemia Hx of allergic rhinitis History of enuresis Hx of osteoarthritis Hx of pilonidal cyst Family history of GERD History of arthritis Hx of diabetes mellitus Surgical History History of surgical removal of pilonidal cyst Hx of bilateral cataract extraction Hx of colonoscopy History of cystoscopy History of hysterectomy Hx of aortic valve replacement Hx laparoscopic cholecystectomy History of epidermal inclusion cyst excision Social History Social History Household Members: Family Household Members Other:: son Housing: Apartment Do you presently have visiting nurse or other home services: Yes ([employer] everyday) Alcohol intake: never Comment: refusing alarms Patient Tobacco Use Status: Former Tobacco user Tobacco use type: Cigarette Cigarettes Per Day: 3 e-Cigarette/Vaping Use: Never Used Second Hand Smoke Exposure: No Substance Use Type: Former Substance User Advance Directives: Yes Advance Directives on File: Yes Advance Directives Date on File: 11/08/21 Do you have a plan to hurt others: No Plan service: No Current occupational status: unemployed and disabled Physical Exam 2 Vital Signs: Vital Signs: Last Vital Signs Temp 98.2 F 11/10/23 00:01 Pulse 62 11/10/23 00:01 Resp 15 11/10/23 00:01 BP 140/75 H 11/10/23 00:01 Pulse Ox 96 11/10/23 00:01 O2 Del Method Room Air 11/10/23 00:01 BMI result Body Mass Index 20.7 Const: Other: Appearance: Alert. Oriented X3. In respiratory distress Eyes: Pupils equal, round and reactive to light. ENT: Pharynx normal. Neck: Normal inspection. Neck supple. No lymph nodes noted. No crepitus CVS: Normal heart rate and rhythm. Pulses normal. Normal S1 and S2 Respiratory: Tight air movement, wheezing bilaterally, oxygen saturation 94% on room air Abdomen: Soft and nontender. No rigidity. No distention. Skin: Skin warm and dry. Normal skin color. Normal skin turgor. Extremities: No lower extremity edema. No Lacerations. No Rash Neuro: Oriented X 3. No motor deficit. No sensory deficit. Moving all extremities. No slurred speech. CN 2 through 12 grossly intact Psych: calm, cooperative, normal affect Course Course Course Narrative: We tried to put the patient on CPAP. However, patient refused. -patient receiving IV fluids, Solu-Medrol, nebulization treatments. Ceftriaxone, azithromycin -of patient's labs and imaging pending Medications Administered Discontinued Medications Generic Name Dose Route Start Last Admin Trade Name Freq PRN Reason Stop Dose Admin Albuterol Sulfate 7.5 mg/ 10 mg 11/09/23 22:56 11/09/23 23:03 Albuterol Sulfate 2.5 mg INHALE 11/09/23 22:57 10 mg ONCE ONE Administration Albuterol Sulfate 7.5 mg/ 0 mg 11/09/23 23:10 11/09/23 23:12 Albuterol/Ipratropium 3 ml INHALE 11/09/23 23:11 10 each ONCE ONE Administration Magnesium Sulfate 2 gm in 50 mls @ 25 mls/hr 11/09/23 22:46 11/09/23 23:54 Magnesium Sulfate/H2o IV 11/10/23 00:45 Infused ONCE ONE Infusion Ceftriaxone Sodium 1 gm/ 50 mls @ 100 mls/hr 11/09/23 22:46 11/09/23 23:54 Sodium Chloride IV 11/09/23 23:15 Infused ONCE ONE Infusion Azithromycin 500 mg/ Sodium 250 mls @ 125 mls/hr 11/09/23 22:46 11/10/23 00:06 Chloride IV 11/10/23 00:45 125 mls/hr ONCE ONE Administration Sodium Chloride 2,000 mls @ 999 mls/hr 11/09/23 22:46 11/09/23 23:12 Ns IVCONT 11/10/23 00:46 999 mls/hr .Q2H1M ONE Administration Methylprednisolone Sodium Succinate 125 mg 11/09/23 22:46 11/09/23 22:51 Methylprednisolone Sod Succ 125 Mg/2 Ml Vial IVPUSH 11/09/23 22:47 125 mg ONCE ONE Administration Medical Decision Making Medical Decision Making [facility] Narrative: My interpretation of labs, normal hematology, normal white blood cell count, normal chemistry, lactic acid 1.2, magnesium normal, normal troponin, normal BNP -my interpretation of chest x-ray, may be early pneumonia left lower lobe? -patient was empirically treated with IV fluids and antibiotics. Sepsis is not suspected -patient is on room air, oxygenating 94%. Patient was walked around the emergency room, lowest oxygen saturation was 92%. However, patient became significantly short of breath, and started wheezing all over again. Patient required nebulization treatments. -I discussed the patient with Dr. Santos, patient being admitted Differential Diagnosis Differential Diagnoses: The differential diagnosis associated with the presentation includes (Chronic lung disease, viral illness, pneumonia) Admission/Observation Consideration of admission/observation: Escalation of care including admission/observation considered Consult Healthcare Provider Management of the patient was discussed with: Hospitalist Lab Data [facility] Lab Attestation statement: I reviewed the patient's lab results. 11/09/23 22:45 11/09/23 22:45 Labs: Lab Results 11/09/23 11/09/23 11/09/23 Range/Units 22:45 22:59 23:00 WBC 9.3 (4.8-10.8) X10*3/uL RBC 5.22 (4.20-5.50) X10*6/uL Hgb 15.3 (12.0-16.0) g/dl Hct 44.9 (37.0-47.0) % MCV 86.0 (80.0-98.0) fL MCH 29.3 (27.0-33.0) pg MCHC 34.1 (31.0-35.0) g/dl RDW 13.2 (11.0-16.0) % Plt Count 336 (160-400) X10*3/uL MPV 9.7 (9.4-12.3) fL Immature Gran % (Auto) 0.3 (0.0-0.4) % Neut % (Auto) 62.8 (45-73) % Lymph % (Auto) 20.4 (20-40) % Hudson % (Auto) 8.4 (2-11) % Eos % (Auto) 7.6 H (0-4) % Baso % (Auto) 0.5 (0-2) % Lymph # (Auto) 1.9 (1.2-4.9) X10*3/uL Hudson # (Auto) 0.8 (0.1-1.2) X10*3/uL Eos # (Auto) 0.7 H (0.0-0.4) X10*3/uL Baso # (Auto) 0.1 (0.0-0.2) X10*3/uL Abs Immat Gran (auto) 0.03 (0.00-0.03) X10*3/uL Absolute Neuts (auto) 5.8 (2.0-8.3) x10*3/uL Absolute Nucleated RBC 0.000 (0.0-0.012) X10*3/uL Nucleated RBC % (auto) 0.0 (0.0-0.2) /100WBC PT 11.9 (11.1-13.3) SEC INR 1.0 (0.9-1.1) VBG pH 7.45 H (7.32-7.43) VBG pCO2 44 mmHg VBG pO2 91 mmHg VBG HCO3 31 H (22-26) mmol/L VBG O2 Saturation 99.0 % VBG Base Excess 6.3 mmol/L Sodium 141 (135-145) mmol/L Potassium 3.9 (3.3-5.1) mmol/L Chloride 104 (96-108) mmol/L Carbon Dioxide 26 (22-29) mmol/L Anion Gap 15 (12-20) BUN 14 (9-16) mg/dL Creatinine 0.80 (0.5-1.4) mg/dL Estim Creat Clear Calc 72.8 Estimated GFR > 60 Random Glucose 162 H (60-115) mg/dL Lactic Acid 1.2 (0.5-2.0) mmol/L Calcium 10.0 (8.4-10.2) mg/dL Magnesium 2.0 (1.6-2.6) mg/dL Total Bilirubin 0.4 (0.0-1.0) mg/dL Direct Bilirubin 0.1 (0.0-0.5) mg/dL AST 24 (5-31) U/L ALT 14 (0-31) U/L Alkaline Phosphatase 78 (39-117) U/L Troponin I High Sens 6.6 D (<3.5-17.0) ng/L B-Natriuretic Peptide 89 (<100) pg/mL Total Protein 7.4 (6.5-8.0) g/dL Albumin 4.3 (3.5-5.0) g/dL Hold Green Top See Note COVID-19 (HOLLIS) (Negative) COVID-19 Clin Com Influenza Type A (GHADA) (Negative) Influenza Type B (GHADA) (Negative) Influenza A & B Note 11/09/23 Range/Units 23:05 WBC (4.8-10.8) X10*3/uL RBC (4.20-5.50) X10*6/uL Hgb (12.0-16.0) g/dl Hct (37.0-47.0) % MCV (80.0-98.0) fL MCH (27.0-33.0) pg MCHC (31.0-35.0) g/dl RDW (11.0-16.0) % Plt Count (160-400) X10*3/uL MPV (9.4-12.3) fL Immature Gran % (Auto) (0.0-0.4) % Neut % (Auto) (45-73) % Lymph % (Auto) (20-40) % Hudson % (Auto) (2-11) % Eos % (Auto) (0-4) % Baso % (Auto) (0-2) % Lymph # (Auto) (1.2-4.9) X10*3/uL Hudson # (Auto) (0.1-1.2) X10*3/uL Eos # (Auto) (0.0-0.4) X10*3/uL Baso # (Auto) (0.0-0.2) X10*3/uL Abs Immat Gran (auto) (0.00-0.03) X10*3/uL Absolute Neuts (auto) (2.0-8.3) x10*3/uL Absolute Nucleated RBC (0.0-0.012) X10*3/uL Nucleated RBC % (auto) (0.0-0.2) /100WBC PT (11.1-13.3) SEC INR (0.9-1.1) VBG pH (7.32-7.43) VBG pCO2 mmHg VBG pO2 mmHg VBG HCO3 (22-26) mmol/L VBG O2 Saturation % VBG Base Excess mmol/L Sodium (135-145) mmol/L Potassium (3.3-5.1) mmol/L Chloride (96-108) mmol/L Carbon Dioxide (22-29) mmol/L Anion Gap (12-20) BUN (9-16) mg/dL Creatinine (0.5-1.4) mg/dL Estim Creat Clear Calc Estimated GFR Random Glucose (60-115) mg/dL Lactic Acid (0.5-2.0) mmol/L Calcium (8.4-10.2) mg/dL Magnesium (1.6-2.6) mg/dL Total Bilirubin (0.0-1.0) mg/dL Direct Bilirubin (0.0-0.5) mg/dL AST (5-31) U/L ALT (0-31) U/L Alkaline Phosphatase (39-117) U/L Troponin I High Sens (<3.5-17.0) ng/L B-Natriuretic Peptide (<100) pg/mL Total Protein (6.5-8.0) g/dL Albumin (3.5-5.0) g/dL Hold Green Top COVID-19 (HOLLIS) Negative (Negative) COVID-19 Clin Com See Note Influenza Type A (GHADA) Negative (Negative) Influenza Type B (GHADA) Negative (Negative) Influenza A & B Note See Note Independent Interpretation I performed an independent interpretation of an: Plain X-Ray Radiology Impression Discussion of test interpretation with radiology: I have reviewed the radiologist's reading. Radiologist Impression: Single lead right pectoral pacemaker terminates at the right ventricular apex. Sternal wires overlie the chest. Cardiac silhouette is at the upper limits of normal in size. Pulmonary vasculature appears normal. No consolidation, pneumothorax, or pleural effusion. No acute osseous findings. XR/XR chest 1V IMPRESSION: No acute pulmonary findings. Borderline cardiomegaly. Critical Care Time Critical Care Time Critical Care Time: Yes Total Critical Care Time: 60 Attestation: I have personally provided critical care time. Time includes review of lab data, radiology results, discussion with consultants, and monitoring for potential decompensation. Intervention performed as documented. Discharge Plan Discharge Clinical Impression: Chronic lung disease Patient Disposition: Admitted As Inpatient Print Language: Kinyarwanda
[2023-11-09] MEDS: Magnesium Sulfate/H2O 2 GM/50 ML PIGGYBACK IV (22:51)
[2023-11-09] MEDS: methylPREDNISolone Sod Succ 125 MG/2 ML VIAL IVPUSH (22:51)
[2023-11-09 22:57] VITALS: PULSE 61; RESP 28; O2SAT 94
[2023-11-09 23:00] LABS: MANUAL DIFF FLAG NO
[2023-11-09] MEDS: Albuterol Sulfate 7.5 MG, Albuterol Sulfate (0.083%) 2.5 MG 10 MG INHALE (23:03)
[2023-11-09 23:06] LABS: Basophils Absolute Auto 0.1 X10*3/uL (0.0-0.2); Basophils Percent Auto 0.5 % (0-2); Eosinophils Absolute Auto 0.7 X10*3/uL (0.0-0.4); Eosinophils Percent Auto 7.6 % (0-4); Hematocrit 44.9 % (37.0-47.0); Hemoglobin 15.3 g/dl (12.0-16.0); Imm Gran Abs Auto 0.03 X10*3/uL (0.00-0.03); Imm Gran Pct Auto 0.3 % (0.0-0.4); Lymphocytes Absolute Auto 1.9 X10*3/uL (1.2-4.9); Lymphocytes Percent Auto 20.4 % (20-40); Mean Corpuscular HGB Conc 34.1 g/dl (31.0-35.0); Mean Corpuscular Hemoglobin 29.3 pg (27.0-33.0); Mean Platelet Volume 9.7 fL (9.4-12.3); Monocytes Absolute Auto 0.8 X10*3/uL (0.1-1.2); Monocytes Percent Auto 8.4 % (2-11); Neutrophils Absolute Auto 5.8 x10*3/uL (2.0-8.3); Neutrophils Percent Auto 62.8 % (45-73); Platelet Count 336 X10*3/uL (160-400); Red Blood Count 5.22 X10*6/uL (4.20-5.50); Red Cell Distribution Width 13.2 % (11.0-16.0); White Blood Count 9.3 X10*3/uL (4.8-10.8)
[2023-11-09 23:06] LABS: VBG Base Excess 6.3 mmol/L; VBG HCO3 31 mmol/L (22-26); VBG pCO2 44 mmHg; VBG pH 7.45 (7.32-7.43); VBG pO2 91 mmHg
[2023-11-09 23:07] LABS: Venous Blood Gas Refer to POC result
[2023-11-09 23:10] LABS: Prothrombin Time 11.9 SEC (11.1-13.3)
[2023-11-09] MEDS: 0.9 % Sodium Chloride 2,000 ML 999 ML IVCONT (23:12)
[2023-11-09] MEDS: Albuterol Sulfate 7.5 MG, Albuterol/Iprat 2.5/0.5MG 3 ML 3 ML INHALE (23:12)
--- NOTE | 2023-11-09 23:14 | PC.NURSE ---
pt hard stick, one set of blood cultures obtained at this time. attempting second set, multiple attempts made.
[2023-11-09 23:16] VITALS: PULSE 61; RESP 25; O2SAT 97
[2023-11-09] MEDS: cefTRIAXone sodium 1 GM in 0.9 % Sodium Chloride 50 ML IV (23:16)
[2023-11-09 23:19] LABS: Lactic Acid 1.2 mmol/L (0.5-2.0)
[2023-11-09 23:20] VITALS: BP 158/85; PULSE 61; RESP 16; TEMP 37; O2SAT 100
[2023-11-09 23:23] LABS: Alanine Aminotransferase 14 U/L (0-31); Albumin Level 4.3 g/dL (3.5-5.0); Alkaline Phosphatase 78 U/L (39-117); Anion Gap 15 (12-20); Aspartate Amino Transferase 24 U/L (5-31); Bilirubin Direct 0.1 mg/dL (0.0-0.5); Bilirubin Total 0.4 mg/dL (0.0-1.0); Blood Urea Nitrogen 14 mg/dL (9-16); Carbon Dioxide 26 mmol/L (22-29); Chloride 104 mmol/L (96-108); Creatinine Clr Calc Pharmacy 72.8; Estimated Glomerular Filt Rate > 60; Glucose Random 162 mg/dL (60-115); Potassium 3.9 mmol/L (3.3-5.1); Sodium 141 mmol/L (135-145); Total Protein 7.4 g/dL (6.5-8.0)
[2023-11-09 23:26] LABS: B Type Natriuretic Peptide 89 pg/mL (<100)
[2023-11-09 23:27] LABS: Troponin-I High Sensitivity 6.6 ng/L (<3.5-17.0)
--- NOTE | 2023-11-09 23:35 | MHC.EDTECH ---
Patient was biba from home ,ekg taken and was read by Provider ,patient was hooked up to reproducer ,blood drawn including both sets of blood and lactic acid ,covid /flu swab all sent to lab .vitals taken and Patient belongings list done ,Patient son at bedside ,call basilio within Pt reach .
[2023-11-09 23:40] LABS: COVID-19 Test Negative (Negative); IDNOW Serial# 08D9AD1C; IDNOW Serial# 152EDE1D; Influenza A Negative (Negative); Influenza B2 Negative (Negative)
[2023-11-10] VITALS (13 sets, daily range): BP systolic 119–150; BP diastolic 66–98; PULSE 62–85; RESP 15–21; TEMP 36.7–37.2; O2SAT 93–100
--- NOTE | 2023-11-10 | ECG_ITS ---
Test Reason : DYSPNEA Blood Pressure : / mmHG Vent. Rate : 061 BPM Atrial Rate : 073 BPM P-R Int : 000 ms QRS Dur : 152 ms QT Int : 458 ms P-R-T Axes : 000 -74 106 degrees QTc Int : 461 ms Ventricular-paced rhythm Abnormal ECG When compared with ECG of 06-NOV-2023 17:59, No significant change was found Referred By: Mayra Vail Electronically Signed By:MATT GRANDE
[2023-11-10] MEDS: Azithromycin 500 MG in 0.9 % Sodium Chloride 250 ML 125 MG IV ×2 (00:06→22:44)
--- NOTE | 2023-11-10 00:30 | PC.NURSE ---
pt assisted in ambulation trial, pt short of breath and working, o2 sat decreased to 92% on room air. pt wheezing while ambulating.
--- NOTE | 2023-11-10 01:03 | PC.NURSE ---
late entry- pt biba from home, a&ox4, respirations even and unlabored. per ems pt 707% on room air at home, pt placed on CPAP for transport. on arrival, pt continued on cpap sating 95%. RT called to bedside, treatment administered and pt removed from CPAP. on room air pt sating 95%. 22G placed in right hand and 20G placed in left back of forearm. labs obtained and sent. pt noted to be wheezing and appeared short of breath. at bedside. sepsis alert called.
[2023-11-10 01:08] LABS: Appearance Urine Clear; Color Urine Yellow; Glucose Urine UA Negative (Negative); Leukocyte Esterase Urine Negative (Negative); Nitrite Urine Negative (Negative); PH 5.5 (5.0-9.0); Specific Gravity - Urine 1.015 (1.005-1.025); UMIC TRIGGER UACC YES; Urine Blood Negative (Negative); Urine Ketones Negative (Negative); Urine Protein 30 (1+) mg/dL (Neg-Trace)
--- NOTE | 2023-11-10 01:08 | PC.NURSE ---
pt assisted to bedside commode, tolerated well, urine sample obtained and sent to lab. hour 2 vitals obtained.
[2023-11-10 01:13] LABS: Bacteria Urine None Seen (None Seen); Hyaline Casts Urine 0-2 /LPF (0-2); RBC Urine 0-2 /HPF (0-2); WBC Urine 0-5 /HPF (0-5)
--- NOTE | 2023-11-10 02:17 | P.HPHOSP_ITS ---
History of Present Illness Date of Service: 11/10/23 Attending physician on admission: Paz Suarez Chief Complaint: Shortness of breaths Ting Keith is a 62 years old woman with past medical history significant for COPD on home oxygen, permanent pacemaker implantation, severe aortic stenosis, obstructive sleep apnea (not using CPAP), GERD, fibromyalgia, rheumatoid arthritis and hyperlipidemia presents to the emergency department complaining of worsening shortness of breath that started yesterday associated with wheezing and nonproductive cough. She denies chest pain, sore throat, fever or chills. She denied any acute gastrointestinal or genitourinary symptoms. She is a former tobacco smoker, quit 10 years ago. Denied marijuana smoking, alcohol abuse or illicit drug use. She was placed on CPAP by EMS as she was found to have O2 sat of 70%. In the ED, she was found to have stable vital signs except for significant tachypnea. She is currently not requiring supplemental oxygen however persists with significant shortness of breath and audible wheezing. Blood workup including CBC, CMP, BNP and troponin are unremarkable. CXR showed no acute changes. Viral testing for influenza and COVID-19 is negative. ED tx: Albuterol x2, azithromycin 500 mg IV, ceftriaxone 1 g IV, magnesium sulfate 2 g IV, Solu-Medrol 125 mg IV. Review of Systems 2 Review of Systems: All 12 systems were reviewed and normal except as noted in HPI. [facility] Medical History Severe aortic stenosis COPD (chronic obstructive pulmonary disease) Pacemaker Asthma with exacerbation Smoking Restrictive airway disease MARY (obstructive sleep apnea) MARY on CPAP Reactive airways dysfunction syndrome Rheumatoid arthritis Fibromyalgia GERD (gastroesophageal reflux disease) MARY (obstructive sleep apnea) Aortic valve endocarditis COPD (chronic obstructive pulmonary disease) COPD exacerbation Overactive bladder Bronchitis Allergic rhinitis COPD (chronic obstructive pulmonary disease) Asthma Hx of cardiac pacemaker Hx of migraines Hx of coronary artery disease History of urinary incontinence Hx of essential hypertension History of depression Hx of drug abuse Hx of hyperlipidemia Hx of allergic rhinitis History of enuresis Hx of osteoarthritis Hx of pilonidal cyst Family history of GERD History of arthritis Hx of diabetes mellitus Surgical History History of surgical removal of pilonidal cyst Hx of bilateral cataract extraction Hx of colonoscopy History of cystoscopy History of hysterectomy Hx of aortic valve replacement Hx laparoscopic cholecystectomy History of epidermal inclusion cyst excision Social History Household Members: Family Household Members Other:: son Housing: Apartment Do you presently have visiting nurse or other home services: Yes (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) Alcohol intake: never Comment: refusing alarms Patient Tobacco Use Status: Former Tobacco user Tobacco use type: Cigarette Cigarettes Per Day: 3 e-Cigarette/Vaping Use: Never Used Second Hand Smoke Exposure: No Substance Use Type: Former Substance User Advance Directives: Yes Advance Directives on File: Yes Advance Directives Date on File: 11/08/21 Do you have a plan to hurt others: No Plan service: No Current occupational status: unemployed and disabled Meds Allergies Allergy/AdvReac Type Severity Reaction Status Date / Time latex [LATEX] Allergy Severe DIFFICULTY Verified 11/09/23 22:48 BREATHING aspirin [Aspirin] Allergy Intermediate ITCHING, Verified 11/09/23 22:48 itchiness ciprofloxacin [From CIPRO] Allergy Intermediate DIAPHORESIS Verified 11/09/23 22:48 /PURITIS Penicillins [PENICILLINS] Allergy Unknown UNKNOWN Verified 11/09/23 22:48 HEMALATHA Inhibitors AdvReac Intermediate COUGH Verified 11/09/23 22:48 [HEMALATHA INHIBITORS] Active Medications: Current Medications Acetaminophen (Acetaminophen 325 Mg Tablet) 975 mg PO Q6H PRN PRN Reason: Pain, Mild (Pain Scale 1-3), fever or headache Albuterol Sulfate (Albuterol Sulfate (0.083%) 2.5 Mg/3 Ml Vial.Neb) 2.5 mg INHALE Q2H PRN PRN Reason: Shortness of Breath/Wheezing Albuterol/Ipratropium (Albuterol/Iprat 2.5/0.5mg 3 Ml Ampul.Neb) 3 ml INHALE RQ4H WHILE AWAKE [facility] Calcium Carbonate (Calcium Carbonate 750 Mg Tab.Chew) 750 mg PO Q4H PRN PRN Reason: Heartburn Azithromycin 500 mg/ Sodium (Chloride) 250 mls @ 125 mls/hr IV Q24H [facility] Melatonin (Melatonin 3 Mg Tablet) 6 mg PO BEDTIME PRN PRN Reason: Insomnia Methylprednisolone Sodium Succinate (Methylprednisolone Sod Succ 40 Mg/Ml Vial) 40 mg IVPUSH Q8H [facility] Sodium Chloride (0.9 % Sodium Chloride Flush 3 Ml Syringe) 3 ml IVFLUSH QSHIFT [facility] Home Medications ?Medication ?Instructions ?Recorded ?Confirmed ?Last Taken ?Type amitriptyline 25 mg tablet 25 mg PO BEDTIME 07/03/22 10/18/23 10/17/23 History bisacodyl 5 mg tablet,delayed 10 mg PO BEDTIME 07/03/22 10/18/23 10/17/23 History release calcium carbonate 600 mg-vitamin 1 tab PO DAILY 07/03/22 10/18/23 10/17/23 History D3 10 mcg (400 unit) tablet clopidogrel 75 mg tablet 75 mg PO DAILY 07/03/22 10/18/23 10/17/23 History cyanocobalamin (vitamin B-12) 1,000 mcg PO DAILY 07/03/22 10/18/23 10/17/23 History 1,000 mcg tablet folic acid 1 mg tablet 1 mg PO DAILY 07/03/22 10/18/23 10/17/23 History gabapentin 100 mg capsule 100 mg PO TID 07/03/22 10/18/23 10/17/23 History hydrochlorothiazide 12.5 mg tablet 12.5 mg PO DAILY 07/03/22 10/18/23 10/17/23 History montelukast 10 mg tablet 10 mg PO BEDTIME 07/03/22 10/18/23 10/17/23 History sertraline 50 mg tablet 50 mg PO DAILY 07/03/22 10/18/23 10/17/23 History melatonin 5 mg tablet 5 mg PO BEDTIME PRN insomnia 03/14/23 10/18/23 09/06/23 History tiotropium bromide 18 mcg capsule 1 cap inhalation DAILY 03/14/23 10/18/23 10/17/23 History with inhalation device (Spiriva with HandiHaler) albuterol sulfate 2.5 mg/3 mL 2.5 mg inhalation Q4-6H PRN 05/21/23 10/18/23 09/06/23 History (0.083 %) solution for nebulization Shortness Of Breath/Wheezing albuterol sulfate 90 mcg/actuation 2 puff inhalation Q4H PRN Wheezing 05/21/23 10/18/23 09/06/23 History aerosol inhaler (Ventolin HFA) amlodipine 5 mg tablet 5 mg PO DAILY 08/03/23 10/18/23 10/17/23 History fluticasone 500 mcg-salmeterol 50 1 ea inhalation BID 10/18/23 10/18/23 10/17/23 History mcg/dose blistr powdr for inhalation (Advair Diskus) Physical Exam 2 Vital Signs and Narrative: Vital Signs: Last Vital Signs Temp 99 F 11/10/23 02:08 Pulse 85 11/10/23 02:08 Resp 17 11/10/23 02:08 BP 139/89 11/10/23 02:08 Pulse Ox 96 11/10/23 02:08 O2 Del Method Room Air 11/10/23 02:08 BMI result Body Mass Index 20.7 Constitutional - Awake and Alert, mild respiratory distress. Pleasant. Cooperative. HEENT - PERRL EOMI. Dry oral mucosa. Heart - RRR, No murmurs. Lungs - Normal lung expansion, Normal respiratory effort. Tachypnea. Prominent end expiratory wheezes bilaterally. No rhonchi. No crackles. Abdomen - NT / ND; +BS; No rebound or guarding Extremities - No calf tenderness bilaterally, no swelling Musculoskeletal - Normal inspection, normal ROM Skin - Warm/Dry. No pallor. No jaundice. Neurological - Alert & oriented x3. Normal speech. Normal behavior. Psychological - Appropriate affect Results Labs 11/09/23 22:45 11/09/23 22:45 Labs: Laboratory Results - last 24 hr 11/09/23 11/09/23 11/09/23 22:45 22:59 23:00 MCV 86.0 MCH 29.3 MCHC 34.1 RDW 13.2 Plt Count 336 MPV 9.7 Immature Gran % (Auto) 0.3 Neut % (Auto) 62.8 Lymph % (Auto) 20.4 Rich % (Auto) 8.4 Eos % (Auto) 7.6 H Baso % (Auto) 0.5 Lymph # (Auto) 1.9 Rich # (Auto) 0.8 Eos # (Auto) 0.7 H Baso # (Auto) 0.1 Abs Immat Gran (auto) 0.03 Absolute Neuts (auto) 5.8 Absolute Nucleated RBC 0.000 Nucleated RBC % (auto) 0.0 PT 11.9 INR 1.0 VBG pH 7.45 H VBG pCO2 44 VBG pO2 91 VBG HCO3 31 H VBG O2 Saturation 99.0 VBG Base Excess 6.3 Anion Gap 15 Estim Creat Clear Calc 72.8 Estimated GFR > 60 Random Glucose 162 H Lactic Acid 1.2 Calcium 10.0 Magnesium 2.0 Total Bilirubin 0.4 Direct Bilirubin 0.1 AST 24 ALT 14 Alkaline Phosphatase 78 Troponin I High Sens 6.6 D B-Natriuretic Peptide 89 Total Protein 7.4 Albumin 4.3 Hold Green Top See Note Urine Color Urine Appearance Urine pH Ur Specific [place] Urine Protein Urine Glucose (UA) Urine Ketones Urine Blood Urine Nitrite Ur Leukocyte Esterase Urine RBC Urine WBC Ur Squamous Epith Cells Urine Bacteria Hyaline Casts COVID-19 (HOLLIS) COVID-19 Clin Com Influenza Type A (GHADA) Influenza Type B (GHADA) Influenza A & B Note 11/09/23 11/10/23 23:05 00:58 MCV MCH MCHC RDW Plt Count MPV Immature Gran % (Auto) Neut % (Auto) Lymph % (Auto) Rich % (Auto) Eos % (Auto) Baso % (Auto) Lymph # (Auto) Rich # (Auto) Eos # (Auto) Baso # (Auto) Abs Immat Gran (auto) Absolute Neuts (auto) Absolute Nucleated RBC Nucleated RBC % (auto) PT INR VBG pH VBG pCO2 VBG pO2 VBG HCO3 VBG O2 Saturation VBG Base Excess Anion Gap Estim Creat Clear Calc Estimated GFR Random Glucose Lactic Acid Calcium Magnesium Total Bilirubin Direct Bilirubin AST ALT Alkaline Phosphatase Troponin I High Sens B-Natriuretic Peptide Total Protein Albumin Hold Green Top Urine Color Yellow Urine Appearance Clear Urine pH 5.5 Ur Specific [place] 1.015 Urine Protein 30 (1+) H Urine Glucose (UA) Negative Urine Ketones Negative Urine Blood Negative Urine Nitrite Negative Ur Leukocyte Esterase Negative Urine RBC 0-2 Urine WBC 0-5 Ur Squamous Epith Cells 3-5 Urine Bacteria None Seen Hyaline Casts 0-2 COVID-19 (HOLLIS) Negative COVID-19 Clin Com See Note Influenza Type A (GHADA) Negative Influenza Type B (GHADA) Negative Influenza A & B Note See Note Imaging Radiologist's Impressions: Impressions Chest X-Ray 11/09/23 22:49 IMPRESSION: No acute pulmonary findings. Borderline cardiomegaly. Electronically signed by: Mathew Aguiar MD 11/10/2023 12:47 AM EDT Assessment and Plan (1) Hypoxic respiratory failure: Qualifiers: Chronicity: acute on chronic Qualified Code(s): J96.21 - Acute and chronic respiratory failure with hypoxia Status: Acute Plan Ting Keith is a 62 y/o woman admitted with: * Hypoxic respiratory failure likely secondary to acute exacerbation of COPD. Admit to hospitalist service. Pulse oximetry. Telemetry. Supplemental oxygen to keep oxygen saturation above 90%. Continue bronchodilator therapy every 4 hours scheduled and every 2 hours as needed. Continue IV steroids. Empiric IV antibiotic therapy with azithromycin. * Essential hypertension. Continue amlodipine. * Depression. Continue sertraline amitriptyline. * Obstructive sleep apnea. Noncompliant with CPAP. * History of complete heart block. s/p permanent pacemaker implantation. * Severe aortic stenosis s/p TAVR 2004. On Plavix. Code status: Full DVT prophylaxis: On Plavix Patient will need hospitalization for at least 2 midnights for hypoxic respiratory failure treatment due to COPD exacerbation with bronchodilator therapy, empiric IV antibiotic therapy, supplemental oxygen and IV steroids. Quality Stroke Does the patient have a stroke diagnosis?: No VTE Prior VTE?: No VTE Risk Level:: Medical - moderate - high VTE Device Contraindication: Treatment Not Indicated VTE Drug Contraindication: N/A - Med Ordered
[2023-11-10] MEDS: Albuterol/Iprat 2.5/0.5MG 3 ML AMPUL.NEB INHALE ×4 (02:46→18:19)
[2023-11-10 05:24] LABS: Basophils Percent Auto 0.1 % (0-2); Eosinophils Absolute Auto 0.1 X10*3/uL (0.0-0.4); Eosinophils Percent Auto 0.5 % (0-4); Hematocrit 39.6 % (37.0-47.0); Hemoglobin 13.2 g/dl (12.0-16.0); Imm Gran Abs Auto 0.05 X10*3/uL (0.00-0.03); Imm Gran Pct Auto 0.5 % (0.0-0.4); Lymphocytes Absolute Auto 0.3 X10*3/uL (1.2-4.9); Lymphocytes Percent Auto 2.5 % (20-40); MANUAL DIFF FLAG SCAN; Mean Corpuscular HGB Conc 33.3 g/dl (31.0-35.0); Mean Platelet Volume 10.4 fL (9.4-12.3); Monocytes Absolute Auto 0.1 X10*3/uL (0.1-1.2); Monocytes Percent Auto 0.6 % (2-11); Neutrophils Absolute Auto 9.6 x10*3/uL (2.0-8.3); Neutrophils Percent Auto 95.8 % (45-73); PLT CLUMP 1; Red Blood Count 4.55 X10*6/uL (4.20-5.50); Red Cell Distribution Width 13.2 % (11.0-16.0); SCAN SMEAR FLAG 1
[2023-11-10 05:36] LABS: Anion Gap 14 (12-20); Blood Urea Nitrogen 11 mg/dL (9-16); Calcium 8.3 mg/dL (8.4-10.2); Carbon Dioxide 25 mmol/L (22-29); Chloride 106 mmol/L (96-108); Estimated Glomerular Filt Rate > 60; Glucose Random 175 mg/dL (60-115); Potassium 2.7 mmol/L (3.3-5.1); Sodium 142 mmol/L (135-145)
[2023-11-10] MEDS: methylPREDNISolone Sod Succ 40 MG/ML VIAL IVPUSH (06:17)
[2023-11-10] MEDS: Potassium Chloride Packet 20 MEQ PACKET 40 MEQ PO (06:17)
[2023-11-10 06:22] LABS: Platelet Count 252 X10*3/uL (160-400)
[2023-11-10 06:23] LABS: SLIDE REVIEW VERIFIED
--- NOTE | 2023-11-10 09:07 | HO.PM.IMPN ---
Subjective Subjective Date of Service: 11/10/23 Interval History: improved but still wheezy/sob Physical Exam Vital Signs: Vital Signs: Last Vital Signs Temp 98.4 F 11/10/23 06:08 Pulse 71 11/10/23 06:08 Resp 20 11/10/23 06:08 BP 133/66 11/10/23 06:08 Pulse Ox 95 11/10/23 06:08 O2 Del Method Room Air 11/10/23 06:08 BMI result Body Mass Index 20.7 General: AO X 3, no acute distress Resp: some exp wheezes bilateral, no accessory muscles used CVS: S1,S2,RRR GI: soft, non tender, non distended Neuro: motor grossly intact, alert Psych: appropriate affect, appropriate insight Objective Data Active Medications Acetaminophen (Acetaminophen 325 Mg Tablet) 975 mg PO Q6H PRN PRN Reason: Pain, Mild (Pain Scale 1-3), fever or headache Albuterol Sulfate (Albuterol Sulfate (0.083%) 2.5 Mg/3 Ml Vial.Neb) 2.5 mg INHALE Q2H PRN PRN Reason: Shortness of Breath/Wheezing Albuterol/Ipratropium (Albuterol/Iprat 2.5/0.5mg 3 Ml Ampul.Neb) 3 ml INHALE RQ4H WHILE AWAKE [facility] Last Admin: 11/10/23 02:46 Dose: 3 ml Documented By: MINDY Calcium Carbonate (Calcium Carbonate 750 Mg Tab.Chew) 750 mg PO Q4H PRN PRN Reason: Heartburn Azithromycin 500 mg/ Sodium (Chloride) 250 mls @ 125 mls/hr IV Q24H [facility] Melatonin (Melatonin 3 Mg Tablet) 6 mg PO BEDTIME PRN PRN Reason: Insomnia Methylprednisolone Sodium Succinate (Methylprednisolone Sod Succ 40 Mg/Ml Vial) 40 mg IVPUSH Q8H [facility] Last Admin: 11/10/23 06:17 Dose: 40 mg Documented By: JASKARAN Potassium Chloride (Potassium Chloride Er 20 Meq Tab.Er.Prt) 40 meq PO ONCE ONE Stop: 11/10/23 16:06 Sodium Chloride (0.9 % Sodium Chloride Flush 3 Ml Syringe) 3 ml IVFLUSH QSHIFT [facility] Labs 11/10/23 04:46 11/10/23 04:46 Labs: Laboratory Results - last 24 hr 11/09/23 11/09/23 11/09/23 22:45 22:59 23:00 MCV 86.0 MCH 29.3 MCHC 34.1 RDW 13.2 Plt Count 336 MPV 9.7 Immature Gran % (Auto) 0.3 Neut % (Auto) 62.8 Lymph % (Auto) 20.4 [place] % (Auto) 8.4 Eos % (Auto) 7.6 H Baso % (Auto) 0.5 Lymph # (Auto) 1.9 [place] # (Auto) 0.8 Eos # (Auto) 0.7 H Baso # (Auto) 0.1 Abs Immat Gran (auto) 0.03 Absolute Neuts (auto) 5.8 Absolute Nucleated RBC 0.000 Nucleated RBC % (auto) 0.0 Smear Tech's Comments PT 11.9 INR 1.0 VBG pH 7.45 H VBG pCO2 44 VBG pO2 91 VBG HCO3 31 H VBG O2 Saturation 99.0 VBG Base Excess 6.3 Anion Gap 15 Estim Creat Clear Calc 72.8 Estimated GFR > 60 Random Glucose 162 H Lactic Acid 1.2 Calcium 10.0 Magnesium 2.0 Total Bilirubin 0.4 Direct Bilirubin 0.1 AST 24 ALT 14 Alkaline Phosphatase 78 Troponin I High Sens 6.6 D B-Natriuretic Peptide 89 Total Protein 7.4 Albumin 4.3 Hold Green Top See Note Urine Color Urine Appearance Urine pH Ur Specific [place] Urine Protein Urine Glucose (UA) Urine Ketones Urine Blood Urine Nitrite Ur Leukocyte Esterase Urine RBC Urine WBC Ur Squamous Epith Cells Urine Bacteria Hyaline Casts COVID-19 ([facility]LLIS) COVID-19 Clin Com Influenza Type A (GHADA) Influenza Type B (GHADA) Influenza A & B Note 11/09/23 11/10/23 11/10/23 23:05 00:58 04:46 MCV 87.0 MCH 29.0 MCHC 33.3 RDW 13.2 Plt Count 252 MPV 10.4 Immature Gran % (Auto) 0.5 H Neut % (Auto) 95.8 H Lymph % (Auto) 2.5 L [place] % (Auto) 0.6 L Eos % (Auto) 0.5 Baso % (Auto) 0.1 Lymph # (Auto) 0.3 L [place] # (Auto) 0.1 Eos # (Auto) 0.1 Baso # (Auto) 0.0 Abs Immat Gran (auto) 0.05 H Absolute Neuts (auto) 9.6 H Absolute Nucleated RBC 0.000 Nucleated RBC % (auto) 0.0 Smear Tech's Comments VERIFIED PT INR VBG pH VBG pCO2 VBG pO2 VBG HCO3 VBG O2 Saturation VBG Base Excess Anion Gap 14 Estim Creat Clear Calc 82.0 Estimated GFR > 60 Random Glucose 175 H Lactic Acid Calcium 8.3 L D Magnesium Total Bilirubin Direct Bilirubin AST ALT Alkaline Phosphatase Troponin I High Sens B-Natriuretic Peptide Total Protein Albumin Hold Green Top Urine Color Yellow Urine Appearance Clear Urine pH 5.5 Ur Specific [place] 1.015 Urine Protein 30 (1+) H Urine Glucose (UA) Negative Urine Ketones Negative Urine Blood Negative Urine Nitrite Negative Ur Leukocyte Esterase Negative Urine RBC 0-2 Urine WBC 0-5 Ur Squamous Epith Cells 3-5 Urine Bacteria None Seen Hyaline Casts 0-2 COVID-19 (HOLLIS) Negative COVID-19 Clin Com See Note Influenza Type A (GHADA) Negative Influenza Type B (GHADA) Negative Influenza A & B Note See Note Assessment and Plan (1) Hypoxic respiratory failure: Status: Acute Plan 62F PMH COPD/severe persistent asthma, severe aortic stenosis, obstructive sleep apnea noncompliant with CPAP, GERD, fibromyalgia, rheumatoid arthritis, hyperlipidemia presented with shortness of breath Acute hypoxic respiratory failure due to COPD/severe persistent asthma with acute decompensation Now back on room air Continue steroids, bronchodilators, empiric antibiotics with azithromycin Hypertension hctz MARY Noncompliant Severe aortic stenosis s/p tavr 2004, now with recurrent severe Does not appear to be in volume overload, follow-up with Cardiology outpatient, recent cardiac cath with minimal CAD, plan for AV replacement, continue plavix History of complete heart block Status post pacer Mood disorder sertraline amytriptilline DVT prophylaxis with lovenox full code reason for continued hospitalization:sob Quality Stroke Does the patient have a stroke diagnosis?: No VTE Prior VTE?: No VTE Risk Level:: Medical - moderate - high VTE Device Contraindication: Treatment Not Indicated VTE Drug Contraindication: N/A - Med Ordered
[2023-11-10] MEDS: Clopidogrel Bisulfate 75 MG TABLET PO (09:59)
[2023-11-10] MEDS: Enoxaparin Sodium 40 MG/0.4 ML SYRINGE SUBCUT (09:59)
[2023-11-10] MEDS: 0.9 % Sodium Chloride Flush 3 ML SYRINGE IVFLUSH ×2 (10:00→15:29)
--- NOTE | 2023-11-10 12:20 | PHA.MEDREC ---
Addendum entered by Bettina Wetzel RPh 11/10/23 12:37: MED REC REVIEWED BY [facility] Original Note: Pharmacy Consult ? Medication Reconciliation Pharmacy has completed the medication reconciliation. Spoke with patient through an traffic monitor specialist. She said no changes since last visit. Used claim history to confirm medications since patient does not know what she takes, she uses [facility] from [facility]. She was prescribed azithromycin and prednisone from here on the but patient does not know if she has it or not and family does not know either (I asked over the phone). Leaving them off of med rec. Provider is aware. She is also unsure when she last took her meds.
[2023-11-10] MEDS: Gabapentin 100 MG CAPSULE PO ×2 (15:28→20:34)
[2023-11-10] MEDS: Potassium Chloride ER 20 MEQ TAB.ER.PRT 40 MEQ PO (15:28)
[2023-11-10] MEDS: Acetaminophen 325 MG TABLET 975 MG PO (18:10)
[2023-11-10] MEDS: oxyCODONE HCl Immed Release 5 MG TABLET PO (20:02)
--- NOTE | 2023-11-10 20:03 | PM.EVENT ---
Event Note Date of Service: 11/10/23 Event Note: Pt complaining of nonradiating 4/10 chest pain despite po tylenol. K 2.7 earlier today which was repleted. Recheck BMP. Check trop and ekg. oxy 5mg ordered Time Spent With Patient Time: Total time managing care of this patient today ____ minutes.
--- NOTE | 2023-11-10 20:22 | PC.NURSE ---
late entry: pt reported intermittent CP, substernal, 4/10 X2 days, currently bothering her. Provider alerted, pt medicated per MAR and ECG done. Pt placed into hospital bed for comfort.
[2023-11-10] MEDS: Montelukast Sodium 10 MG TABLET PO (20:33)
[2023-11-10] MEDS: bisacodyL 5 MG TABLET.DR 10 MG PO (20:33)
[2023-11-10] MEDS: Amitriptyline HCl 25 MG TABLET PO (20:34)
[2023-11-10 20:39] LABS: Anion Gap 14 (12-20); Blood Urea Nitrogen 12 mg/dL (9-16); Calcium 10.3 mg/dL (8.4-10.2); Carbon Dioxide 25 mmol/L (22-29); Chloride 108 mmol/L (96-108); Creatinine Clr Calc Pharmacy 83.2; Estimated Glomerular Filt Rate > 60; Glucose Random 111 mg/dL (60-115); Potassium 4.6 mmol/L (3.3-5.1); Sodium 142 mmol/L (135-145)
[2023-11-10 20:47] LABS: Troponin-I High Sensitivity 11.3 ng/L (<3.5-17.0)
[2023-11-11] VITALS (13 sets, daily range): BP systolic 103–154; BP diastolic 62–90; PULSE 60–88; RESP 14–23; TEMP 36.1–37.2; O2SAT 95–100; BMI 19.5
[2023-11-11 05:15] LABS: Hematocrit 36.3 % (37.0-47.0); Hemoglobin 11.9 g/dl (12.0-16.0); Mean Corpuscular HGB Conc 32.8 g/dl (31.0-35.0); Mean Corpuscular Hemoglobin 29.3 pg (27.0-33.0); Mean Corpuscular Volume 89.4 fL (80.0-98.0); Platelet Count 269 X10*3/uL (160-400); Red Blood Count 4.06 X10*6/uL (4.20-5.50); Red Cell Distribution Width 13.7 % (11.0-16.0)
[2023-11-11 05:35] LABS: Anion Gap 11 (12-20); Blood Urea Nitrogen 17 mg/dL (9-16); Carbon Dioxide 27 mmol/L (22-29); Chloride 110 mmol/L (96-108); Creatinine Clr Calc Pharmacy 75.7; Estimated Glomerular Filt Rate > 60; Glucose Fasting 103 mg/dL (60-99); Magnesium 2.2 mg/dL (1.6-2.6); Sodium 144 mmol/L (135-145)
--- NOTE | 2023-11-11 08:07 | MHC.EDTECH ---
vital sing was taken and patient rest comfortably on the hospital bed.
--- NOTE | 2023-11-11 09:03 | P.PNIM_ITS ---
Subjective Subjective Date of Service: 11/11/23 Interval History: improved but still wheezy/sob Physical Exam 2 Vital Signs: Vital Signs: Last Vital Signs Temp 97.8 F 11/11/23 08:05 Pulse 77 11/11/23 08:05 Resp 23 H 11/11/23 08:05 BP 118/64 11/11/23 08:05 Pulse Ox 95 11/11/23 08:05 O2 Del Method Room Air 11/11/23 08:05 BMI result Body Mass Index 20.7 General: AO X 3, no acute distress Resp: some exp wheezes bilateral, no accessory muscles used CVS: S1,S2,RRR GI: soft, non tender, non distended Neuro: motor grossly intact, alert Psych: appropriate affect, appropriate insight Objective Data Active Medications Acetaminophen (Acetaminophen 325 Mg Tablet) 975 mg PO Q6H PRN PRN Reason: Pain, Mild (Pain Scale 1-3), fever or headache Last Admin: 11/10/23 18:10 Dose: 975 mg Documented By: ANTHONY Albuterol Sulfate (Albuterol Sulfate (0.083%) 2.5 Mg/3 Ml Vial.Neb) 2.5 mg INHALE Q2H PRN PRN Reason: Shortness of Breath/Wheezing Albuterol/Ipratropium (Albuterol/Iprat 2.5/0.5mg 3 Ml Ampul.Neb) 3 ml INHALE RQ4H WHILE AWAKE [facility] Last Admin: 11/10/23 18:19 Dose: 3 ml Documented By: MINDY Amitriptyline HCl (Amitriptyline Hcl 25 Mg Tablet) 25 mg PO BEDTIME [facility] Last Admin: 11/10/23 20:34 Dose: 25 mg Documented By: ANTHONY Amlodipine Besylate (Amlodipine Besylate 5 Mg Tablet) 5 mg PO DAILY [facility]; Protocol Bisacodyl (Bisacodyl 5 Mg Tablet.Dr) 10 mg PO BEDTIME [facility] Last Admin: 11/10/23 20:33 Dose: 10 mg Documented By: ANTHONY Calcium Carbonate (Calcium Carbonate 750 Mg Tab.Chew) 750 mg PO Q4H PRN PRN Reason: Heartburn Clopidogrel Bisulfate (Clopidogrel Bisulfate 75 Mg Tablet) 75 mg PO DAILY [facility] Last Admin: 11/10/23 09:59 Dose: 75 mg Documented By: ADITHYA Cyanocobalamin (Cyanocobalamin (Vitamin B-12) 1,000 Mcg Tablet) 1,000 mcg PO DAILY [facility] Enoxaparin Sodium (Enoxaparin Sodium 40 Mg/0.4 Ml Syringe) 40 mg SUBCUT Q24H [facility] Last Admin: 11/10/23 09:59 Dose: 40 mg Documented By: ADITHYA Fluticasone/Vilanterol (Fluticasone/Vilanterol 200/25 Blst.W.Dev) 1 puff INHALE RDAILY [facility] Folic Acid (Folic Acid 1 Mg Tablet) 1 mg PO DAILY [facility] Gabapentin (Gabapentin 100 Mg Capsule) 100 mg PO TID [facility] Last Admin: 11/10/23 20:34 Dose: 100 mg Documented By: ANTHONY Hydrochlorothiazide (Hydrochlorothiazide 12.5 Mg Tablet) 12.5 mg PO DAILY [facility]; Protocol Azithromycin 500 mg/ Sodium (Chloride) 250 mls @ 125 mls/hr IV Q24H [facility] Last Infusion: 11/11/23 01:05 Dose: Infused Documented By: DANILO Melatonin (Melatonin 3 Mg Tablet) 6 mg PO BEDTIME PRN PRN Reason: Insomnia Montelukast Sodium (Montelukast Sodium 10 Mg Tablet) 10 mg PO BEDTIME [facility] Last Admin: 11/10/23 20:33 Dose: 10 mg Documented By: ANTHONY Prednisone (Prednisone 20 Mg Tablet) 40 mg PO DAILY [facility] Sertraline HCl (Sertraline Hcl 50 Mg Tablet) 50 mg PO DAILY [facility] Sodium Chloride (0.9 % Sodium Chloride Flush 3 Ml Syringe) 3 ml IVFLUSH QSHIFT [facility] Last Admin: 11/11/23 00:21 Dose: Not Given Documented By: DANILO Non-Admin Reason: IV Running Labs 11/11/23 04:32 11/11/23 04:32 Labs: Laboratory Results - last 24 hr 11/10/23 11/11/23 20:23 04:32 MCV 89.4 MCH 29.3 MCHC 32.8 RDW 13.7 Plt Count 269 MPV 10.0 Absolute Nucleated RBC 0.000 Nucleated RBC % (auto) 0.0 Anion Gap 14 11 L Estim Creat Clear Calc 83.2 75.7 Estimated GFR > 60 > 60 Random Glucose 111 Fasting Glucose 103 H Calcium 10.3 H D 9.0 D Magnesium 2.2 Troponin I High Sens 11.3 D Microbiology Microbiology Results: Microbiology 11/09/23 23:16 Blood Culture - Preliminary Blood - Venous No growth after 24 hours. 11/09/23 23:00 Blood Culture - Preliminary Blood - Venous No growth after 24 hours. Assessment and Plan (1) Hypoxic respiratory failure: Status: Acute Plan 62F PMH COPD/severe persistent asthma, severe aortic stenosis, obstructive sleep apnea noncompliant with CPAP, GERD, fibromyalgia, rheumatoid arthritis, hyperlipidemia presented with shortness of breath Acute hypoxic respiratory failure due to COPD/severe persistent asthma with acute decompensation Now back on room air Continue steroids, bronchodilators, empiric antibiotics with azithromycin Hypertension hctz MARY Noncompliant Severe aortic stenosis s/p tavr 2004, now with recurrent severe Does not appear to be in volume overload, follow-up with Cardiology outpatient, recent cardiac cath with minimal CAD, plan for AV replacement outpatient, continue plavix History of complete heart block Status post pacer Mood disorder sertraline amytriptilline DVT prophylaxis with lovenox full code reason for continued hospitalization:sob Quality Stroke Does the patient have a stroke diagnosis?: No VTE Prior VTE?: No VTE Risk Level:: Medical - moderate - high VTE Device Contraindication: Treatment Not Indicated VTE Drug Contraindication: N/A - Med Ordered
[2023-11-11] MEDS: amLODIPine Besylate 5 MG TABLET PO (09:45)
[2023-11-11] MEDS: 0.9 % Sodium Chloride Flush 3 ML SYRINGE IVFLUSH ×3 (09:45→22:09)
[2023-11-11] MEDS: hydroCHLOROthiazide 12.5 MG TABLET PO (09:45)
[2023-11-11] MEDS: Enoxaparin Sodium 40 MG/0.4 ML SYRINGE SUBCUT (09:45)
[2023-11-11] MEDS: Clopidogrel Bisulfate 75 MG TABLET PO (09:45)
[2023-11-11] MEDS: Sertraline HCL 50 MG TABLET PO (09:46)
[2023-11-11] MEDS: Cyanocobalamin (Vitamin B-12) 1,000 MCG TABLET 1000 MCG PO (09:46)
[2023-11-11] MEDS: predniSONE 20 MG TABLET 40 MG PO (09:46)
[2023-11-11] MEDS: Folic Acid 1 MG TABLET PO (09:46)
[2023-11-11] MEDS: Gabapentin 100 MG CAPSULE PO ×3 (09:46→21:52)
[2023-11-11] MEDS: Fluticasone/Vilanterol 200/25 BLST.W.DEV 1 PUFF INHALE (10:26)
[2023-11-11] MEDS: Albuterol/Iprat 2.5/0.5MG 3 ML AMPUL.NEB INHALE ×4 (10:27→20:07)
--- NOTE | 2023-11-11 10:29 | PC.NURSE ---
pt c/o increase diff breathing after eating breakfast, HR 82, O2 97% RR 20. placed on 2L NC per pts request for comfort. contacted respiratory for updraft treatment
--- NOTE | 2023-11-11 13:58 | MHC.CM.PN ---
Addendum entered by Jessica Landa 11/11/23 14:07: HCP is on file from previous admission, naming: Marta and Clint. 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 PCO confirmed: [facility], for DME she has a cane and a walker. HCP discussed and she will complete form here. She will need assistance with transportation home at DC. DCP: home, resume services. CM to follow and assist with DC plan.
[2023-11-11] MEDS: Amitriptyline HCl 25 MG TABLET PO (21:52)
[2023-11-11] MEDS: Montelukast Sodium 10 MG TABLET PO (21:52)
[2023-11-11] MEDS: bisacodyL 5 MG TABLET.DR 10 MG PO (21:52)
[2023-11-11] MEDS: Flu Vacc TS2024-25(6mos up)/PF 0.5 ML SYRINGE IM (21:54)
[2023-11-11] MEDS: Azithromycin 500 MG in 0.9 % Sodium Chloride 250 ML 125 MG IV (22:03)
[2023-11-12 03:59] VITALS: BP 131/61; PULSE 53; RESP 16; TEMP 36.8; O2SAT 97
[2023-11-12 06:33] LABS: Hematocrit 39.6 % (37.0-47.0); Hemoglobin 12.9 g/dl (12.0-16.0); Mean Corpuscular HGB Conc 32.6 g/dl (31.0-35.0); Mean Corpuscular Hemoglobin 29.3 pg (27.0-33.0); Mean Corpuscular Volume 89.8 fL (80.0-98.0); Mean Platelet Volume 9.8 fL (9.4-12.3); Platelet Count 302 X10*3/uL (160-400); Red Blood Count 4.41 X10*6/uL (4.20-5.50); Red Cell Distribution Width 13.9 % (11.0-16.0); White Blood Count 13.8 X10*3/uL (4.8-10.8)
[2023-11-12 06:53] LABS: Anion Gap 12 (12-20); Blood Urea Nitrogen 19 mg/dL (9-16); Carbon Dioxide 29 mmol/L (22-29); Chloride 106 mmol/L (96-108); Creatinine Clr Calc Pharmacy 78.5; Estimated Glomerular Filt Rate > 60; Glucose Fasting 84 mg/dL (60-99); Magnesium 2.1 mg/dL (1.6-2.6); Potassium 3.5 mmol/L (3.3-5.1); Sodium 143 mmol/L (135-145)
[2023-11-12 07:23] VITALS: BP 154/72; PULSE 65; RESP 16; TEMP 36; O2SAT 97
[2023-11-12] MEDS: Albuterol/Iprat 2.5/0.5MG 3 ML AMPUL.NEB INHALE (07:42)
[2023-11-12 07:45] VITALS: PULSE 80; RESP 16; O2SAT 100
[2023-11-12] MEDS: 0.9 % Sodium Chloride Flush 3 ML SYRINGE IVFLUSH (08:17)
[2023-11-12] MEDS: Enoxaparin Sodium 40 MG/0.4 ML SYRINGE SUBCUT (08:18)
[2023-11-12 08:19] VITALS: BP 154/72
[2023-11-12] MEDS: Clopidogrel Bisulfate 75 MG TABLET PO (08:19)
[2023-11-12] MEDS: Sertraline HCL 50 MG TABLET PO (08:19)
[2023-11-12] MEDS: hydroCHLOROthiazide 12.5 MG TABLET PO (08:19)
[2023-11-12] MEDS: predniSONE 20 MG TABLET 40 MG PO (08:19)
[2023-11-12] MEDS: Cyanocobalamin (Vitamin B-12) 1,000 MCG TABLET 1000 MCG PO (08:19)
[2023-11-12] MEDS: Gabapentin 100 MG CAPSULE PO (08:19)
[2023-11-12] MEDS: Folic Acid 1 MG TABLET PO (08:19)
[2023-11-12] MEDS: amLODIPine Besylate 5 MG TABLET PO (08:19)
[2023-11-12] MEDS: Fluticasone/Vilanterol 200/25 BLST.W.DEV 1 PUFF INHALE (08:55)
[2023-11-12 08:57] VITALS: PULSE 65; RESP 15; O2SAT 97
--- NOTE | 2023-11-12 11:08 | PM.DS ---
DS: Providers Provider Date of Service: 11/12/23 Date of admission: 11/10/23 02:11 Date of discharge: 11/12/23 Primary care physician: Ting Hampton MD DS: Diagnosis Discharge Diagnosis (1) Hypoxic respiratory failure: Status: Acute DS: Summary Hospital Course Hospital Course: from initial hpi: 62 years old woman with past medical history significant for COPD on home oxygen, permanent pacemaker implantation, severe aortic stenosis, obstructive sleep apnea (not using CPAP), GERD, fibromyalgia, rheumatoid arthritis and hyperlipidemia presents to the emergency department complaining of worsening shortness of breath that started yesterday associated with wheezing and nonproductive cough. She denies chest pain, sore throat, fever or chills. She denied any acute gastrointestinal or genitourinary symptoms. She is a former tobacco smoker, quit 10 years ago. Denied marijuana smoking, alcohol abuse or illicit drug use. She was placed on CPAP by EMS as she was found to have O2 sat of 70%. In the ED, she was found to have stable vital signs except for significant tachypnea. She is currently not requiring supplemental oxygen however persists with significant shortness of breath and audible wheezing. Blood workup including CBC, CMP, BNP and troponin are unremarkable. CXR showed no acute changes. Viral testing for influenza and COVID-19 is negative. ED tx: Albuterol x2, azithromycin 500 mg IV, ceftriaxone 1 g IV, magnesium sulfate 2 g IV, Solu-Medrol 125 mg IV. hospital course: Patient was admitted for acute hypoxic respiratory failure due to COPD/severe persistent asthma with acute decompensation. She was treated with steroids, bronchodilators, empiric antibiotics with azithromycin and was weaned down to room air. Patient's wheezing resolved and is feeling much better. Hypertension was continue hydrochlorothiazide. For MARY she is noncompliant. For severe aortic stenosis status post TAVR in 2004 and now with recurrent severe aortic stenosis she will follow up with Cardiology as outpatient. For history of complete heart block she is status post pacer. For mood disorder she was continued on sertraline and amitriptyline. Time Attestation Discharge Coordination Time (in mins): 34 Quality: Safe Use of Opioids Does Pt have an Active Cancer Diagnosis on the Problem List?: No Quality: Stroke Does the patient have a stroke diagnosis?: No Physical Exam Vital Signs: Vital Signs: Last Vital Signs Temp 96.8 F 11/12/23 07:23 Pulse 65 11/12/23 08:57 Resp 15 11/12/23 08:57 BP 154/72 H 11/12/23 08:19 Pulse Ox 97 11/12/23 07:23 O2 Del Method Room Air 11/12/23 07:23 O2 Flow Rate 1 11/11/23 19:14 BMI result Body Mass Index 19.5 General: AO X 3, no acute distress Resp: CTA bilateral, no accessory muscles used CVS: S1,S2,RRR GI: soft, non tender, non distended Neuro: motor grossly intact, alert Psych: appropriate affect, appropriate insight DS: Data Data Completed and Pending Completed studies during hospitalization [Text1]: Procedures Assistance with Respiratory Ventilation, Less than 24 Consecutive Hours, Continuous Positive Airway Pressure (10/18/23) Labs on day of discharge: Laboratory Results - last 24 hr 11/12/23 05:59 WBC 13.8 H RBC 4.41 Hgb 12.9 Hct 39.6 MCV 89.8 MCH 29.3 MCHC 32.6 RDW 13.9 Plt Count 302 MPV 9.8 Absolute Nucleated RBC 0.000 Nucleated RBC % (auto) 0.0 Sodium 143 Potassium 3.5 Chloride 106 Carbon Dioxide 29 Anion Gap 12 BUN 19 H Creatinine 0.70 Estim Creat Clear Calc 78.5 Estimated GFR > 60 Fasting Glucose 84 Calcium 9.0 Magnesium 2.1 Preliminary micro results at discharge 11/09/23 23:16 Blood Culture - Preliminary Blood - Venous No growth after 48 hours. 11/09/23 23:00 Blood Culture - Preliminary Blood - Venous No growth after 48 hours. Discharge Plan Discharge Anticipated Discharge Date/Time: 11/12/23 10:59 Patient Disposition: Home, Self-Care Discharge Diagnosis: asthma, copd Referrals: Ting Packer MD [Primary Care Provider] - 1 Week Discharge Medications: New prednisone 20 mg Tablet 40 mg PO DAILY Qty: 10 0RF Continued acetaminophen 650 mg tablet extended release 650 mg PO Q8H PRN (Reason: for pain) Qty: 90 3RF tiotropium bromide [Spiriva with HandiHaler] 18 mcg capsule, w/inhalation device 1 cap inhalation DAILY melatonin 5 mg tablet 5 mg PO BEDTIME PRN (Reason: insomnia) montelukast 10 mg tablet 10 mg PO BEDTIME bisacodyl 5 mg tablet,delayed release (DR/EC) 10 mg PO BEDTIME gabapentin 100 mg capsule 100 mg PO TID sertraline 50 mg tablet 50 mg PO DAILY calcium carbonate-vitamin D3 600 mg-10 mcg (400 unit) tablet 1 tab PO DAILY hydrochlorothiazide 12.5 mg tablet 12.5 mg PO DAILY clopidogrel 75 mg tablet 75 mg PO DAILY amitriptyline 25 mg tablet 25 mg PO BEDTIME folic acid 1 mg tablet 1 mg PO DAILY cyanocobalamin (vitamin B-12) 1,000 mcg tablet 1,000 mcg PO DAILY albuterol sulfate 2.5 mg /3 mL (0.083 %) solution for nebulization 2.5 mg inhalation Q4-6H PRN (Reason: Shortness Of Breath/Wheezing) albuterol sulfate [Ventolin HFA] 90 mcg/actuation Hfa Aerosol Inhaler 2 puff INHALATION Q4H PRN (Reason: Wheezing) amlodipine 5 mg tablet 5 mg PO DAILY fluticasone propion-salmeterol [Advair Diskus] 500-50 mcg/dose blister with device 1 ea INHALATION BID Discharge Orders: Discharge Order (Routine); Ordered 11/12/23 Ordered By: Geo Mcguire Diet: Advance to usual diet Activity on Discharge: As tolerated Stand Alone Forms: Patient Portal Discharge page Print Language: Tamazight Care Plan Goals: recovery Health Concerns: asthma copd Plan of Treatment: 5 more days of prednisone Assessment: see above
--- NOTE | 2023-11-12 11:10 | MHC.CM.PN ---
PT MEDICALLY CLEARED FOR DC HOME W/RESUMP OF OXYGEN THERAPIST HRS, CM TO CONTACT PT'S SISTER RISA TO ARRANGE TRANSPORT
== END 2023-11-12 12:17 | disposition home or self-care (01) | DRG 140 ==
LOC: HO.ED 11-10 00:17 → HO.EDOVER 11-10 02:19 → HO.IMC 11-11 15:16
PROVIDERS: Physician Assistant; Admitting Provider Internal Medicine; Emergency Provider Emergency Medicine; PCP Internal Medicine; Visit Provider Internal Medicine
DX: J44.1 Chronic obstructive pulmonary disease with (acute) exacerbation (principal); J96.21 Acute and chronic respiratory failure with hypoxia; I44.2 Atrioventricular block, complete; J45.51 Severe persistent asthma with (acute) exacerbation; Z99.81 Dependence on supplemental oxygen; E87.6 Hypokalemia; I10 Essential (primary) hypertension; F32.A Depression, unspecified; G47.33 Obstructive sleep apnea (adult) (pediatric); I25.10 Atherosclerotic heart disease of native coronary artery without angina pectoris; M06.9 Rheumatoid arthritis, unspecified; Z23 Encounter for immunization; Z91.199 Patient's noncompliance with other medical treatment and regimen due to unspecified reason; Z20.822 Contact with and (suspected) exposure to COVID-19; Z95.0 Presence of cardiac pacemaker; Z95.2 Presence of prosthetic heart valve; Z87.891 Personal history of nicotine dependence; Z79.02 Long term (current) use of antithrombotics/antiplatelets; Z79.51 Long term (current) use of inhaled steroids; Z79.899 Other long term (current) drug therapy
CPT/HCPCS: 36415; 71045; 80048; 80076; 81001; 82803; 83605; 83735; 83880; 84484; 85025; 85027; 85610; 87040; 87502; 87635; 90656; 93005; 94640; 99285; J0456; J0696; J1650; J2919; J3475

== ENCOUNTER → 2023-11-10 02:11 | Outpatient (BNV) | payer MEDICAID, SELFPAY | PROVIDERS: Admitting Provider Internal Medicine; Emergency Provider Emergency Medicine; Visit Provider Internal Medicine | DX: J96.21 Acute and chronic respiratory failure with hypoxia (principal) | CPT/HCPCS: 99223; 99232; 99239; 99499 ==

== ENCOUNTER 2024-01-14 15:08 | Outpatient (REF) | payer MEDICAID, SELFPAY ==
[2024-01-14 16:19] LABS: Alanine Aminotransferase 25 U/L (0-31); Albumin Level 4.2 g/dL (3.5-5.0); Alkaline Phosphatase 69 U/L (39-117); Anion Gap 8 (12-20); Aspartate Amino Transferase 26 U/L (5-31); Bilirubin Total 0.4 mg/dL (0.0-1.0); Blood Urea Nitrogen 21 mg/dL (9-16); Calcium 10.3 mg/dL (8.4-10.2); Carbon Dioxide 32 mmol/L (22-29); Chloride 104 mmol/L (96-108); Cholesterol 213 mg/dL (<200); Estimated Glomerular Filt Rate > 60; Glucose Random 92 mg/dL (60-115); HDL Cholesterol 95 mg/dL (>40); LDL Cholesterol Calculated 96 mg/dL (<100); Potassium 3.3 mmol/L (3.3-5.1); Sodium 141 mmol/L (135-145); Triglycerides 113 mg/dL (<150)
[2024-01-14 16:32] LABS: Creatinine Urine 88.61 mg/dL; Microalbum/Creatinine Ratio Ur 31.5 ug/mg cr (<30)
== END 2024-01-14 15:09 | disposition home or self-care (01) ==
LOC: HO.HHCL 15:08
PROVIDERS: Visit Provider Internal Medicine
DX: R73.03 Prediabetes (principal)
CPT/HCPCS: 36415; 80053; 80061; 82043; 82570

== ENCOUNTER 2024-01-21 09:38 | Outpatient (AMB) | payer MEDICAID, SELFPAY ==
[2024-01-21 10:02] VITALS: BP 124/80; PULSE 73; O2SAT 99; BMI 27.9
--- NOTE | 2024-01-21 10:02 | A.OFFVIS_ITS ---
Vital Signs 01/21/24 10:02 Height 4 ft 11 in Weight 138 lb BMI 27.9 BP 124/80 Blood Pressure Location Lt brachial Position Sitting Pulse 73 Pulse Source Pulse Oximeter Pulse Oximetry (%) 99 Oxygen Delivery Method Room Air Intake Visit Reasons: Asthma Exacerbation Intake Note: pt is here for follow up and has wolf multiple stays in our hospital and also [facility]. asthma is still not good today. Electrical Engineering Drafting Officer Required: No Allergies latex [LATEX] Allergy (Severe, Verified 01/21/24 10:26) DIFFICULTY BREATHING aspirin [Aspirin] Allergy (Intermediate, Verified 01/21/24 10:26) ITCHING, itchiness ciprofloxacin [From CIPRO] Allergy (Intermediate, Verified 01/21/24 10:26) DIAPHORESIS/PURITIS Penicillins [PENICILLINS] Allergy (Unknown, Verified 01/21/24 10:26) UNKNOWN HEMALATHA Inhibitors [HEMALATHA INHIBITORS] Adverse Reaction (Intermediate, Verified 01/21/24 10:26) COUGH Medication List - Last Reconciled 01/21/24 by Wally Simpson MD acetaminophen ER 650 mg PO Q8H PRN albuterol sulfate 90 mcg/actuation (Ventolin HFA) 2 puffs inhalation Q4H PRN albuterol sulfate 2.5 mg inhalation Q4-6H PRN amitriptyline 25 mg PO BEDTIME amlodipine 5 mg PO DAILY bisacodyl 10 mg PO BEDTIME calcium carbonate-vitamin D3 600 mg-10 mcg (400 unit) 1 tab PO DAILY clopidogrel 75 mg PO DAILY cyanocobalamin (vitamin B-12) 1,000 mcg PO DAILY fluticasone propion-salmeterol 500-50 mcg/dose (Advair Diskus) 1 ea inhalation BID folic acid 1 mg PO DAILY gabapentin 100 mg PO TID hydrochlorothiazide 12.5 mg PO DAILY melatonin 5 mg PO BEDTIME PRN montelukast 10 mg PO BEDTIME prednisone 40 mg (2 x 20 mg) PO DAILY sertraline 50 mg PO DAILY tiotropium bromide (Spiriva with HandiHaler) 1 cap inhalation DAILY Do you need a note to return to daycare/school/sports/work: No HPI HPI Asthma Exacerbation: Details: This 63 years old very pleasant female, is a case of chronic bronchial asthma/COPD and allergic rhinitis. He is nonsmoker. In the past few months she has been hospitalized few times for acute exacerbation, including at [facility] and [facility]. Last admission was in October at [facility]. She is on maximum medical therapy and she is using the medications regularly. She denies any acute infection . At present she has mild intermittent cough, she gets short of breath on minimal walking, She does have to use the rescue inhaler a few times during the day in addition to her baseline medical therapy. [facility] Medical History (Updated 01/21/24 @ 10:36 by Wally Simpson MD) Eosinophilia Severe aortic stenosis COPD (chronic obstructive pulmonary disease) Pacemaker Asthma with exacerbation Smoking Restrictive airway disease MARY (obstructive sleep apnea) MARY on CPAP Reactive airways dysfunction syndrome Rheumatoid arthritis Fibromyalgia GERD (gastroesophageal reflux disease) MARY (obstructive sleep apnea) Aortic valve endocarditis COPD (chronic obstructive pulmonary disease) COPD exacerbation Overactive bladder Bronchitis Allergic rhinitis COPD (chronic obstructive pulmonary disease) Asthma Hx of cardiac pacemaker Hx of migraines Hx of coronary artery disease History of urinary incontinence Hx of essential hypertension History of depression Hx of drug abuse Hx of hyperlipidemia Hx of allergic rhinitis History of enuresis Hx of osteoarthritis Hx of pilonidal cyst Family history of GERD History of arthritis Hx of diabetes mellitus Surgical History History of surgical removal of pilonidal cyst Hx of bilateral cataract extraction Hx of colonoscopy History of cystoscopy History of hysterectomy Hx of aortic valve replacement Hx laparoscopic cholecystectomy History of epidermal inclusion cyst excision Social History Household Members: Family Household Members Other:: son Housing: Apartment Do you presently have visiting nurse or other home services: Yes ([employer] everyday) Alcohol intake: never Comment: refusing alarms Patient Tobacco Use Status: Former Tobacco user Tobacco use type: Cigarette Cigarettes Per Day: 3 e-Cigarette/Vaping Use: Never Used Second Hand Smoke Exposure: No Substance Use Type: Former Substance User Advance Directives Date on File: 11/08/21 service: No Current occupational status: unemployed and disabled Review of Systems Const All systems reviewed & are unremarkable except as noted in HPI and below Eyes Reports no additional complaints ENT Reports nasal congestion (ON A DAILY BASIS) and Reports post nasal drip (OFF AND ON) Card Denies irregular heart rhythm and Denies leg edema Resp Reports as per HPI GI Reports no additional complaints Reports no additional complaints Musc Reports back pain and Reports arthralgias Skin/Breast Reports system reviewed and no additional complaints, except as documented Neuro Reports no additional complaints Psych Reports no additional complaints Endo Reports other (BEING TREATED FOR DIABETES MELLITUS) Physical Exam Vital Signs: Last Vital Signs Pulse 73 01/21/24 10:02 BP 124/80 01/21/24 10:02 Pulse Ox 99 01/21/24 10:02 Oxygen Delivery Method Room Air 01/21/24 10:02 BMI result Body Mass Index 27.9 Const General: comfortable (FREQUENT COUGH DURING CONVERSATION), no acute distress, alert and awake Orientation/consciousness: patient oriented x3 HEENT Head: Yes normal to inspection General nose exam: No nasal polyps present and No nasal discharge present Face and sinus: Yes sinuses nontender Mouth: oropharynx normal Throat: Yes posterior oropharynx normal Eyes General: appearance normal, both eyes and all related structures Neck Neck: Yes normal visual inspection, Yes no lymphadenopathy, Yes trachea midline and Yes no JVD Thyroid: Thyroid normal Chest Chest palpation & inspection: abnormal inspection of the chest (PATIENT HAS MIDLINE SCAR FROM PREVIOUS SURGERY), normal palpation of entire chest wall and no tenderness Resp Other: PERCUSSION NOTE RESONANT, BREATH SOUNDS ARE DISTANT, WITH PROLONGED EXPIRATORY PHASE. SHE DOES HAVE SCATTERED EXPIRATORY WHEEZES ON BOTH SIDES IN THE UPPER PART OF THE CHEST. Cardio Palpation: normal PMI Rate: regular rate Rhythm: regular rhythm Heart sounds: no gallops and no murmurs Peripheral pulses: Peripheral pulses 2+ throughout GI Palpation (GI): Soft to palpation, nontender, No hepatosplenomegaly present and no masses Auscultation: normal bowel sounds Back/Spine/Pelvis Thoracic/Lumbar Spine: thoracic and lumbar spine normal to inspection Skin General skin exam: no rashes or lesions noted Neuro General: patient oriented x3 and no focal motor deficits Cranial nerves: Yes CN's II-XII intact bilaterally Extrem General: Yes normal to inspection, Yes no clubbing, cyanosis or edema and Yes no calf tenderness Psych Appearance: grossly normal Speech and movement: Normal speech and movement present Assessment & Plan Assessment & Plan (1) COPD (chronic obstructive pulmonary disease): Comment: THIS PATIENT HAS CHRONIC OBSTRUCTIVE PULMONARY DISORDER, RELATED TO HER SMOKING RECENTLY SHE HAS BEEN TREATED IN [facility] AT [facility] FOR ACUTE EXACERBATION IN THE HOSPITAL. SHE IS COMPLIANT TO TAKE HER MEDS REGULARLY. SHE IS VERY PRONE TO HAVE ACUTE EXACERBATIONS. Code(s): J44.9 - Chronic obstructive pulmonary disease, unspecified Category: Medical Plan: CONTINUE ADVAIR DISKUS 500-51 INHALATION B.I.D. MONTELUKAST 10 MG DAILY SPIRIVA RESPIMAT 1 INHALATION DAILY. ALBUTEROL HFA 2 PUFFS Q 4-6 HOURS P.R.N., ALTERNATIVELY MAY USE ALBUTEROL SOLUTION IN THE NEBULIZER Q 4-6 HOURS P.R.N.. (2) Restrictive airway disease: Comment: THIS PATIENT HAS MODERATELY SEVERE RESTRICTIVE LUNG DISORDER, IT IS PARTLY CONTRIBUTED BY HER PREVIOUS STERNOTOMY AND HEALED SCAR FROM CARDIAC SURGERY Code(s): J98.4 - Other disorders of lung Category: Medical Plan: PATIENT HAS BEEN EDUCATED, ABOUT THIS ISSUE SHE IS NOT ABLE TO DO ANY DEEP BREATHING EXERCISES (3) MARY on CPAP: Comment: SHE IS A KNOWN CASE OF OBSTRUCTIVE SLEEP APNEA BUT HAS NOT BEEN ABLE TO USE CPAP. Code(s): G47.33 - Obstructive sleep apnea (adult) (pediatric); Z99.89 - Dependence on other enabling machines and devices Category: Medical Plan: SLEEP IS RELATIVELY OKAY (4) Allergic rhinitis: Comment: SHE HAS CHRONIC ALLERGIC RHINITIS WITH POSTNASAL DISCHARGE CONTRIBUTING TO HER COUGH. RELATIVELY CONTROLLED AND STABLE AT THIS TIME. Code(s): J30.9 - Allergic rhinitis, unspecified Category: Medical Plan: CONTINUE MONTELUKAST 10 MG DAILY. FLONASE 2 SPRAY EACH NOSTRIL DAILY. (5) Eosinophilia: Comment: I HAVE REVIEWED THE LAB REPORTS IN THE LAST 2 FEW MONTHS. EOSINOPHIL COUNT HAS BEEN PERSISTENTLY HIGH, . 7.6 , 9.3, ,4.2 ,9.3 Code(s): D72.10 - Eosinophilia, unspecified Category: Medical Plan: SHE IS A GOOD CANDIDATE FOR BIOLOGIC TREATMENT, PATIENT EDUCATED ABOUT THE BIOLOGIC TREATMENT, SHE IS AGREEABLE. I WILL ORDER DUPIXENT 300 MG Q.2 WEEKS . Medications: New dupilumab 300 mg (2 mL) subcut Q2W 2 weeks 2 mL 11RF asthma/copd MDD Eiosinophilia, Coding Level of Care Code Est Pt Level 4 (23138) Diagnoses COPD (chronic obstructive pulmonary disease) J44.9 Restrictive airway disease J98.4 MARY on CPAP G47.33; Z99.89 Allergic rhinitis J30.9 Eosinophilia D72.10
== END 2024-01-21 10:30 | disposition home or self-care (01) ==
PROVIDERS: PCP Internal Medicine; Visit Provider Internal Medicine
DX: J44.9 Chronic obstructive pulmonary disease, unspecified (principal); J98.4 Other disorders of lung; G47.33 Obstructive sleep apnea (adult) (pediatric); Z99.89 Dependence on other enabling machines and devices; J30.9 Allergic rhinitis, unspecified; D72.10 Eosinophilia, unspecified
CPT/HCPCS: 99214

== ENCOUNTER → 2024-01-21 09:38 | Outpatient (BNVA) | payer MEDICAID, SELFPAY | PROVIDERS: PCP Internal Medicine; Visit Provider Internal Medicine | DX: J44.9 Chronic obstructive pulmonary disease, unspecified (principal); J98.4 Other disorders of lung; G47.33 Obstructive sleep apnea (adult) (pediatric); D72.10 Eosinophilia, unspecified; Z99.89 Dependence on other enabling machines and devices | CPT/HCPCS: 99212 ==

== ENCOUNTER 2024-02-11 10:53 | Outpatient (AMB) | payer MEDICAID, SELFPAY ==
--- OUTSIDE RECORDS SUMMARY | 2024-02-11 10:57 | XMS_ITS | Continuity of Care Document ---
Author Organization [facility] Cardiac Misty keshawn [address] [address]- Care Team Providers Care Leaf Sorter Name Role Phone Joshua Hampton MD, Allyson Osman Primary Care Physici an Encounter [facility] Date(s): 12/24/23 - 01/23/24 [facility] Cardiac Surgery [address] [place] [address] Drive [address] [place], [place] [address] Attending Physician: Rosina Bravo Admitting Physician: AdmtrRosina Referring Physician: Admtr [id number] Encounter Type: Triage Allergies, Adverse Reactions, Alerts Substance Criticality Severity Reaction Reaction Severity Status ciprofloxacin Active aspirin Active shellfish hives Active Immunizations Given and Recorded Vaccine Date Status Refusal Reason Influenza Inactive (IM) (oldterm) 1 12/05/07 Given Pneumococcal Vaccine (oldterm) 2 09/30/07 Given 1Admin Note: SANOFI PASTEUR 2Result Comment: [id number] exp [id number] Medications Advair Diskus 250 mcg-50 mcg inhalation powder 1 puffs, Inhalation, 2 times a day, # 180 each, 0 Refills, Maintenance, 04/17/13 2:43:15 PM EST, Powder Start Date: 04/17/13 Status: Ordered Quantity: 180.0 Unit: each Repeat number: 1 amitriptyline 25 mg oral tablet TAKE 1 TABLET BY MOUTH AT BEDTIME Start Date: 03/15/23 Status: Ordered Repeat number: 1 amLODIPine 5 mg oral tablet 5 mg, 1, tablet, By Mouth, Daily, # 30 tablet, Refills 0, Maintenance, 08/31/23 8:51:00 AM EDT, Partial fill upon patient request if the prescription is for a schedule II opioid drug. Start Date: 08/31/23 Status: Ordered Quantity: 30.0 Unit: tablet Repeat number: 1 bisacodyl 5 mg oral delayed release tablet 1 tablet = 5 mg, By Mouth, Daily, PRN as needed for constipation, # 20 tablet, 0 Refills, Maintenance, 08/31/23 8:52:00 AM EDT, CR Tablet, Partial fill upon patient request if the prescription is for aschedule II opioid drug. Start Date: 08/31/23 Status: Ordered Quantity: 20.0 Unit: tablet Repeat number: 1 Dulcolax Stool Softener = 100 mg, By Mouth, 2 times a day, 0 Refills, Maintenance, 01/30/17 7:53:34 AM EST Start Date: 01/30/17 Status: Ordered Repeat number: 1 folic acid 1 mg oral tablet TAKE 1 TABLET BY MOUTH EVERY MORNING Start Date: 08/31/22 Status: Ordered Repeat number: 1 gabapentin 100 mg oral capsule TAKE 1 CAPSULE BY MOUTH THREE TIMES DAILY IN THE MORNING, EVENING, AND BEDTIME Start Date: 08/31/22 Status: Ordered Repeat number: 1 hydrochlorothiazide 12.5 mg oral tablet TAKE 1 TABLET BY MOUTH EVERY MORNING Start Date: 03/15/23 Status: Ordered Repeat number: 1 melatonin 5 mg oral tablet 1 tablet = 5 mg, By Mouth, Daily at bedtime, PRN for insomnia, # 60 tablet, 0 Refills, Maintenance,08/31/23 8:53:00 AM EDT, Tablet, Partial fill upon patient request if the prescription is for a schedule II opioid drug. Start Date: 08/31/23 Status: Ordered Quantity: 60.0 Unit: tablet Repeat number: 1 Plavix 75 mg oral tablet 75 mg, 1, tablet, By Mouth, Daily, # 90 tablet, Refills 3, Tot. Refills 3, Maintenance, 07/25/23 1:25:00 PM EDT, Route to Pharmacy Electronically, [facility], 150, cm, 07/05/23 15:49:00 EDT, Height, 79.5, kg, 03/15/23 21:25:00 EST, Dry Weight Start Date: 07/25/23 Stop Date: 07/19/24 Status: Ordered Quantity: 90.0 Unit: tablet Repeat number: 4 Proventil HFA 90 mcg/inh inhalation aerosol with adapter 1 puffs, Inhalation, 4 times a day, PRN for wheezing, # 25 Gm, 0 Refills, Maintenance, 04/17/13 2:44:10 PM EST, Aerosol Start Date: 04/17/13 Status: Ordered Quantity: 25.0 Unit: g Repeat number: 1 sertraline 50 mg oral tablet 1 tablet = 50 mg, By Mouth, Daily, # 30 tablet, 0 Refills, Maintenance, 04/17/13 2:42:40 PM EST, Tablet Start Date: 04/17/13 Status: Ordered Quantity: 30.0 Unit: tablet Repeat number: 1 Singulair 10 mg oral tablet 1 tablet = 10 mg, By Mouth, Daily in PM, # 30 tablet, 0 Refills, Maintenance, 04/17/13 2:42:10 PM EST, Tablet Start Date: 04/17/13 Status: Ordered Quantity: 30.0 Unit: tablet Repeat number: 1 Spiriva HandiHaler 18 mcg Inhalation Capsule 1 capsule = 18 mcg, Inhalation, Daily, # 90 capsule, 0 Refills, Maintenance, 10/24/11 3:23:32 PM EDT, Capsule Start Date: 10/24/11 Status: Ordered Quantity: 90.0 Unit: capsule Repeat number: 1 Vitamin B-12 1000 mcg oral tablet TAKE 1 TABLET BY MOUTH EVERY MORNING Start Date: 03/15/23 Status: Ordered Repeat number: 1 Problem List Condition Confirmation Course Effective Dates Status Health St atus Informant Aortic valve disorder 1 Confirmed Active Arthritis Confirmed Active Asthma Confirmed Active Back pain Confirmed Active Diabetes mellitus Confirmed Active Hypertension Confirmed 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 Social History Social History Type Response Smoking Status Current every day sm oker; Tobacco user in household: Yes entered on: 03/22/17 Sex Sex Representation Female (finding) Patient Care team information Care Team Personnel Name: Allyson Packer MD Position: [facility] Outreach Member Role: PCP Address: [address] [place] [address] [address] [place] [address]- Telecom: Care Team Related Persons Name: SHAHAB HERCULES Name: ALLYSON MCKENNA Name: KIRA DOTSON Name: RISA DOTSON Insurance Providers Guarantor name: ALLYSON DOTSON Health Plan Information #: 1 Payer: [facility] Member Number: NA Policy Number: NA Group Number: NA
--- OUTSIDE RECORDS SUMMARY | 2024-02-11 10:57 | XMS_ITS | Continuity of Care Document ---
Author Organization [facility]iology Address [address] [place] [phone]- Care Team Providers Care Transmission Worker Name Role Phone Joshua Hampton MD, Allyson Osman Primary Care Physici an Encounter [facility] Date(s): 12/12/23 - 01/11/24 [facility] [address] [place] [address] Encounter Type: Triage Allergies, Adverse Reactions, Alerts Substance Criticality Severity Reaction Reaction Severity Status ciprofloxacin Active aspirin Active shellfish hives Active Immunizations Given and Recorded Vaccine Date Status Refusal Reason Influenza Inactive (IM) (oldterm) 1 12/05/07 Given Pneumococcal Vaccine (oldterm) 2 09/30/07 Given 1Admin Note: SANOFI PASTEUR 2Result Comment: [id number] exp [id number] Medications Advair Diskus 250 mcg-50 mcg inhalation [...] 1:25:00 PM EDT, Route to Pharmacy Electronically, [facility], 150, cm, 07/05/23 15:49:00 EDT, [...] List Condition Confirmation Course Effective Dates Status [facility] Informant Aortic valve disorder 1 [...] Team Personnel Name: Allyson Packer MD Position: [facility] Outreach Member Role: PCP Address: [address] [place] [address] [address] [place] [address]- Telecom: Care Team Related Persons Name: SHAHAB HERCULES Name: ALLYSON MCKENNA Name: KIRA DOTSON Name: RISA DOTSON Insurance Providers Guarantor name: [facility] Plan Information #: 1 Payer: [facility] Member Number: NA Policy Number: NA Group Number: NA
--- OUTSIDE RECORDS SUMMARY | 2024-02-11 10:57 | XMS_ITS | Continuity of Care Document ---
Author Organization [facility] Cardiac Misty keshawn Address [address] [place] [phone]- Care Team Providers Care Mine Utility Operator Name Role Phone Joshua Hampton MD, Allyson Osman Primary Care Physici an [place] [facility] Date(s): 12/19/23 - 01/23/24 [facility] Cardiac Surgery [address] [place] [address] Drive [address] [place], [place] [address] Attending Physician: Donnell Sanchez MD Referring Physician: Victorino Segovia MD Encounter Type: Pre Office Visit Allergies, Adverse Reactions, Alerts Substance Criticality Severity Reaction Reaction Severity Status ciprofloxacin Active aspirin Active shellfish hives Active Immunizations Given and Recorded Vaccine Date Status Refusal Reason Influenza Inactive (IM) (oldterm) 1 12/05/07 Given Pneumococcal Vaccine (oldterm) 2 09/30/07 Given 1Admin Note: SANOFI PASTEUR 2Result Comment: [id number] exp [id number] Medications Advair Diskus 250 mcg-50 mcg inhalation powder 1 puffs, Inhalation, 2 times a day, # 180 each, 0 Refills, Maintenance, 04/17/13 2:43:15 PM EST, Powder Start Date: 2/20/14 Status: Ordered Quantity: 180.0 Unit: each Repeat [...] 1:25:00 PM EDT, Route to Pharmacy Electronically, [facility] [...] Team Personnel Name: Allyson Packer MD Position: [facility] Outreach Member Role: PCP Address: [address] [place] [address] [address] [place] [address]- Telecom: Care Team Related Persons Name: SHAHAB HERCULES Name: ALLYSON MCKENNA Name: KIRA DOTSON Name: RISA DOTSON Insurance Providers Guarantor name: ALLYSON DOTSON Health Plan Information #: 1 Payer: [employer] Member Number: [id number] Policy Number: NA Group Number: NA Health Plan Information #: 2 Payer: [facility] Member Number: [id number] Policy Number: NA Group Number: NA
[2024-02-11 11:23] VITALS: BP 110/70; BMI 30.7
--- NOTE | 2024-02-11 11:23 | MHC.OFFVIS ---
Vital Signs 02/11/24 11:23 Height 4 ft 11 in Weight 152 lb BMI 30.7 BP 110/70 Blood Pressure Location Lt brachial Position Sitting Intake Visit Reasons: Asthma Exacerbation Intake Note: pt is here for follow up and states little better., Human Resources Project Manager Required: Yes Human Resources Project Manager Services: Human Resources Project Manager Present Human Resources Project Manager Name: Lali Allergies latex [LATEX] Allergy (Severe, Verified 02/11/24 11:28) DIFFICULTY BREATHING aspirin [Aspirin] Allergy (Intermediate, Verified 02/11/24 11:28) ITCHING, itchiness ciprofloxacin [From CIPRO] Allergy (Intermediate, Verified 02/11/24 11:28) DIAPHORESIS/PURITIS Penicillins [PENICILLINS] Allergy (Unknown, Verified 02/11/24 11:28) UNKNOWN HEMALATHA Inhibitors [HEMALATHA INHIBITORS] Adverse Reaction (Intermediate, Verified 02/11/24 11:28) COUGH Medication List - Last Reconciled 02/11/24 by Wally Simpson MD acetaminophen ER 650 mg PO Q8H PRN albuterol sulfate 90 mcg/actuation (Ventolin HFA) 2 puffs inhalation Q4H PRN albuterol sulfate 2.5 mg inhalation Q4-6H PRN amitriptyline 25 mg PO BEDTIME amlodipine 5 mg PO DAILY bisacodyl 10 mg PO BEDTIME calcium carbonate-vitamin D3 600 mg-10 mcg (400 unit) 1 tab PO DAILY clopidogrel 75 mg PO DAILY cyanocobalamin (vitamin B-12) 1,000 mcg PO DAILY dupilumab 300 mg (2 mL) subcut Q2W 2 weeks MDD Eiosinophilia, fluticasone propion-salmeterol 500-50 mcg/dose (Advair Diskus) 1 ea inhalation BID folic acid 1 mg PO DAILY gabapentin 100 mg PO TID hydrochlorothiazide 12.5 mg PO DAILY melatonin 5 mg PO BEDTIME PRN montelukast 10 mg PO BEDTIME sertraline 50 mg PO DAILY tiotropium bromide (Spiriva with HandiHaler) 1 cap inhalation DAILY Do you need a note to return to daycare/school/sports/work: No HPI HPI Asthma Exacerbation: Details: This 63 years old female is here for short-term follow-up. For her chronic eosinophilic asthma/COPD, has been started on Dupixent therapy. So far she has had 1 injection of 300 mg. She is already feeling better and has less cough or wheezing than before. She is still using all her previous medications. There is some confusion about where is she getting the injection, and we are trying to clarify. [facility] Medical History Eosinophilia Severe aortic stenosis COPD (chronic obstructive pulmonary disease) Pacemaker Asthma with exacerbation Smoking Restrictive airway disease MARY (obstructive sleep apnea) MARY on CPAP Reactive airways dysfunction syndrome Rheumatoid arthritis Fibromyalgia GERD (gastroesophageal reflux disease) MARY (obstructive sleep apnea) Aortic valve endocarditis COPD (chronic obstructive pulmonary disease) COPD exacerbation Overactive bladder Bronchitis Allergic rhinitis COPD (chronic obstructive pulmonary disease) Asthma Hx of cardiac pacemaker Hx of migraines Hx of coronary artery disease History of urinary incontinence Hx of essential hypertension History of depression Hx of drug abuse Hx of hyperlipidemia Hx of allergic rhinitis History of enuresis Hx of osteoarthritis Hx of pilonidal cyst Family history of GERD History of arthritis Hx of diabetes mellitus Surgical History History of surgical removal of pilonidal cyst Hx of bilateral cataract extraction Hx of colonoscopy History of cystoscopy History of hysterectomy Hx of aortic valve replacement Hx laparoscopic cholecystectomy History of epidermal inclusion cyst excision Social History Household Members: Family Household Members Other:: son Housing: Apartment Do you presently have visiting nurse or other home services: Yes (MANAGER OF EMPLOYEE RELATIONS everyday) Alcohol intake: never Comment: refusing alarms Patient Tobacco Use Status: Former Tobacco user Tobacco use type: Cigarette Cigarettes Per Day: 3 e-Cigarette/Vaping Use: Never Used Second Hand Smoke Exposure: No Substance Use Type: Former Substance User Advance Directives Date on File: 11/08/21 service: No Current occupational status: unemployed and disabled Review of Systems Const All systems reviewed & are unremarkable except as noted in HPI and below Eyes Reports no additional complaints ENT Reports nasal congestion (ON A DAILY BASIS) and Reports post nasal drip (OFF AND ON) Card Denies irregular heart rhythm and Denies leg edema Resp Reports as per HPI GI Reports no additional complaints Reports no additional complaints Musc Reports back pain and Reports arthralgias Skin/Breast Reports system reviewed and no additional complaints, except as documented Neuro Reports no additional complaints Psych Reports no additional complaints Endo Reports other (BEING TREATED FOR DIABETES MELLITUS) Physical Exam Vital Signs: Last Vital Signs BP 110/70 02/11/24 11:23 BMI result Body Mass Index 30.7 Const General: comfortable (FREQUENT COUGH DURING CONVERSATION), no acute distress, alert and awake Orientation/consciousness: patient oriented x3 HEENT Head: Yes normal to inspection General nose exam: No nasal polyps present and No nasal discharge present Face and sinus: Yes sinuses nontender Mouth: oropharynx normal Throat: Yes posterior oropharynx normal Eyes General: appearance normal, both eyes and all related structures Neck Neck: Yes normal visual inspection, Yes no lymphadenopathy, Yes trachea midline and Yes no JVD Thyroid: Thyroid normal Chest Chest palpation & inspection: abnormal inspection of the chest (PATIENT HAS MIDLINE SCAR FROM PREVIOUS SURGERY), normal palpation of entire chest wall and no tenderness Resp Other: PERCUSSION NOTE RESONANT, BREATH SOUNDS ARE DISTANT, WITH PROLONGED EXPIRATORY PHASE. SHE DOES HAVE SCATTERED EXPIRATORY WHEEZES ON BOTH SIDES IN THE UPPER PART OF THE CHEST, ACTUALLY MUCH LESS THAN BEFORE, DURING EXAMINATION SHE HAD VERY LITTLE COUGH. Cardio Palpation: normal PMI Rate: regular rate Rhythm: regular rhythm Heart sounds: no gallops and no murmurs Peripheral pulses: Peripheral pulses 2+ throughout GI Palpation (GI): Soft to palpation, nontender, No hepatosplenomegaly present and no masses Auscultation: normal bowel sounds Back/Spine/Pelvis Thoracic/Lumbar Spine: thoracic and lumbar spine normal to inspection Skin General skin exam: no rashes or lesions noted Neuro General: patient oriented x3 and no focal motor deficits Cranial nerves: Yes CN's II-XII intact bilaterally Extrem General: Yes normal to inspection, Yes no clubbing, cyanosis or edema and Yes no calf tenderness Psych Appearance: grossly normal Speech and movement: Normal speech and movement present Assessment & Plan Assessment & Plan (1) COPD (chronic obstructive pulmonary disease): Comment: THIS PATIENT HAS CHRONIC OBSTRUCTIVE PULMONARY DISORDER, RELATED TO HER SMOKING SHE HAS HISTORY OF REPEATED ACUTE EXACERBATIONS AND FREQUENT HOSPITALIZATIONS. NOW SINCE HER LAST VISIT AND AFTER START ON DUPIXENT THERAPY, SHE CLAIMS TO BE FEELING BETTER. Code(s): J44.9 - Chronic obstructive pulmonary disease, unspecified Category: Medical Plan: ADVISED TO CONTINUE USING ADVAIR 500-51 INHALATION B.I.D. SPIRIVA HANDIHALER 1 INHALATION DAILY. MONTELUKAST 10 MG DAILY ALBUTEROL HFA 2 PUFFS Q 6 HOURS P.R.N. CONTINUE INJECTIONS OF DUPIXENT 300 MG SUBQ Q.2 WEEKS. (2) Reactive airways dysfunction syndrome: Comment: THIS PATIENT HAS ASTHMA/COPD DISORDER, WITH FREQUENT BOUTS OF COUGH AND WHEEZING. CURRENTLY HER PULMONARY STATUS IS STABLE AND WELL CONTROLLED. SHE HAS HISTORY OF EOSINOPHILIA, AND HAS BEEN STARTED ON DUPIXENT THERAPY WHICH IS DEFINITELY HELPING. Code(s): J68.3 - Other acute and subacute respiratory conditions due to chemicals, gases, fumes and vapors Category: Medical Plan: UNDER COPD (3) Allergic rhinitis: Comment: SHE HAS CHRONIC ALLERGIC RHINITIS WITH POSTNASAL DISCHARGE CONTRIBUTING TO HER COUGH. RELATIVELY CONTROLLED AND STABLE AT THIS TIME. Code(s): J30.9 - Allergic rhinitis, unspecified Category: Medical Plan: CONTINUE MONTELUKAST 10 MG DAILY CONTINUE DUPIXENT THERAPY (4) Restrictive airway disease: Comment: THIS PATIENT HAS MODERATELY SEVERE RESTRICTIVE LUNG DISORDER, IT IS PARTLY CONTRIBUTED BY HER PREVIOUS STERNOTOMY AND HEALED SCAR FROM CARDIAC SURGERY Code(s): J98.4 - Other disorders of lung Category: Medical Plan: INSTRUCTED TO DO DEEP BREATHING EXERCISES MUCH SHE CAN TOLERATE (5) Eosinophilia: Comment: I HAVE REVIEWED THE LAB REPORTS IN THE LAST 2 FEW MONTHS. EOSINOPHIL COUNT HAS BEEN PERSISTENTLY HIGH, . 7.6 , 9.3, ,4.2 ,9.3 Code(s): D72.10 - Eosinophilia, unspecified Category: Medical Plan: PATIENT HAS BEEN STARTED ON DUPIXENT THERAPY AND SO FOR SHOWS SIGNIFICANT IMPROVEMENT Coding Level of Care Code Est Pt Level 4 (79045) Diagnoses COPD (chronic obstructive pulmonary disease) J44.9 Reactive airways dysfunction syndrome J68.3 Allergic rhinitis J30.9 Restrictive airway disease J98.4 Eosinophilia D72.10
== END 2024-02-11 11:53 | disposition home or self-care (01) ==
PROVIDERS: PCP Internal Medicine; Visit Provider Internal Medicine
DX: J44.9 Chronic obstructive pulmonary disease, unspecified (principal); J68.3 Other acute and subacute respiratory conditions due to chemicals, gases, fumes and vapors; J30.9 Allergic rhinitis, unspecified; J98.4 Other disorders of lung; D72.10 Eosinophilia, unspecified
CPT/HCPCS: 99214

== ENCOUNTER → 2024-02-11 10:53 | Outpatient (BNVA) | payer MEDICAID, SELFPAY | PROVIDERS: PCP Internal Medicine; Visit Provider Internal Medicine | DX: J45.909 Unspecified asthma, uncomplicated (principal); J82.83 Eosinophilic asthma; J44.9 Chronic obstructive pulmonary disease, unspecified; J68.3 Other acute and subacute respiratory conditions due to chemicals, gases, fumes and vapors; J98.4 Other disorders of lung | CPT/HCPCS: 99212 ==

== ENCOUNTER 2024-03-10 12:38 | Outpatient (AMB) | payer MEDICAID, SELFPAY ==
[2024-03-10 13:09] VITALS: BP 130/80; PULSE 79; O2SAT 97; BMI 30.9
--- NOTE | 2024-03-10 13:09 | A.OFFVIS_ITS ---
Vital Signs 03/10/24 13:09 Height 4 ft 11 in Weight 153 lb BMI 30.9 BP 130/80 Blood Pressure Location Lt brachial Position Sitting Pulse 79 Pulse Source Pulse Oximeter Pulse Oximetry (%) 97 Oxygen Delivery Method Room Air Intake Visit Reasons: Asthma Intake Note: pt was called for visit today due to that pcp called and stated that the patient is going to the [facility] asking for prednisone at least 3 x a week, she is very wheezy, very tight in chest, talk about the biologic Resource Management Specialist Required: Yes Resource Management Specialist Services: Resource Management Specialist Present Resource Management Specialist Name: ankit Allergies latex [LATEX] Allergy (Severe, Verified 03/10/24 13:28) DIFFICULTY BREATHING aspirin [Aspirin] Allergy (Intermediate, Verified 03/10/24 13:28) ITCHING, itchiness ciprofloxacin [From CIPRO] Allergy (Intermediate, Verified 03/10/24 13:28) DIAPHORESIS/PURITIS Penicillins [PENICILLINS] Allergy (Unknown, Verified 03/10/24 13:28) UNKNOWN HEMALATHA Inhibitors [HEMALATHA INHIBITORS] Adverse Reaction (Intermediate, Verified 03/10/24 13:28) COUGH Medication List - Last Reconciled 03/10/24 by Wally Simpson MD acetaminophen ER 650 mg PO Q8H PRN albuterol sulfate 90 mcg/actuation (Ventolin HFA) 2 puffs inhalation Q4H PRN albuterol sulfate 2.5 mg inhalation Q4-6H PRN amitriptyline 25 mg PO BEDTIME amlodipine 5 mg PO DAILY bisacodyl 10 mg PO BEDTIME calcium carbonate-vitamin D3 600 mg-10 mcg (400 unit) 1 tab PO DAILY clopidogrel 75 mg PO DAILY cyanocobalamin (vitamin B-12) 1,000 mcg PO DAILY fluticasone propion-salmeterol 500-50 mcg/dose (Advair Diskus) 1 ea inhalation BID folic acid 1 mg PO DAILY gabapentin 100 mg PO TID hydrochlorothiazide 12.5 mg PO DAILY melatonin 5 mg PO BEDTIME PRN montelukast 10 mg PO BEDTIME sertraline 50 mg PO DAILY tiotropium bromide (Spiriva with HandiHaler) 1 cap inhalation DAILY Do you need a note to return to daycare/school/sports/work: No HPI HPI Asthma: Details: 63 YEARS OLD IRISH-SPEAKING FEMALE IS A LONG-TIME CASE OF BRONCHIAL ASTHMA/COPD. SHE HAS BEEN ON MAXIMUM MEDICAL REGIMEN INCLUDING, ORAL STEROIDS. SHE IS ALMOST DEPENDENT ON PREDNISONE. AND IN BETWEEN THE OFFICE VISITS SHE VISITS EITHER EMERGENCY ROOM OR THE URGENT CLINIC FREQUENTLY ASKING FOR PREDNISONE. RECENT LAP TEST HAS PROVEN THAT SHE HAS EOSINOPHILIC ALLERGIC RHINITIS/BRONCHIAL ASTHMA. TRYING TO START HER ON BIOLOGIC TREATMENT. PATIENT WAS APPROVED FOR DUPIXENT THERAPY, HOWEVER THAT IS NOT APPROVED TO BE GIVEN IN THE HOSPITAL INFUSION SENT. BECAUSE OF HER CONFUSION AND VERY POOR UNDERSTANDING SHE JUST CAN NOT ADMINISTER THE BIOLOGIC SOLUTION AT HOME. DURING THE LAST VISIT SHE HAD ACTUALLY TOLD ME THAT SHE GOT 1 INJECTION AT [facility]. WHEN WE CHECKED WITH [facility] SHE ACTUALLY DID NOT GET ANY INJECTION. WE HAD ASKED HER TO COME HERE TODAY FOR BETTER EDUCATION AND UNDERSTANDING. EXTENSIVE CONVERSATION WAS DONE THROUGH THE SALES ENGINEERING MANAGER. PATIENT DOES HAVE INCREASED WHEEZING, ASKING FOR ADDITIONAL TREATMENT SHE USUALLY RESPONSE TO PREDNISONE. THERE IS NO EVIDENCE. OF RECENT INFECTION [facility] Medical History Eosinophilia Severe aortic stenosis COPD (chronic obstructive pulmonary disease) Pacemaker Asthma with exacerbation Smoking Restrictive airway disease MARY (obstructive sleep apnea) MARY on CPAP Reactive airways dysfunction syndrome Rheumatoid arthritis Fibromyalgia GERD (gastroesophageal reflux disease) MARY (obstructive sleep apnea) Aortic valve endocarditis COPD (chronic obstructive pulmonary disease) COPD exacerbation Overactive bladder Bronchitis Allergic rhinitis COPD (chronic obstructive pulmonary disease) Asthma Hx of cardiac pacemaker Hx of migraines Hx of coronary artery disease History of urinary incontinence Hx of essential hypertension History of depression Hx of drug abuse Hx of hyperlipidemia Hx of allergic rhinitis History of enuresis Hx of osteoarthritis Hx of pilonidal cyst Family history of GERD History of arthritis Hx of diabetes mellitus Surgical History History of surgical removal of pilonidal cyst Hx of bilateral cataract extraction Hx of colonoscopy History of cystoscopy History of hysterectomy Hx of aortic valve replacement Hx laparoscopic cholecystectomy History of epidermal inclusion cyst excision Social History Household Members: Family Household Members Other:: son Housing: Apartment Do you presently have visiting nurse or other home services: Yes ([employer] CLERK everyday) Alcohol intake: never Comment: refusing alarms Patient Tobacco Use Status: Former Tobacco user Tobacco use type: Cigarette Cigarettes Per Day: 3 e-Cigarette/Vaping Use: Never Used Second Hand Smoke Exposure: No Substance Use Type: Former Substance User Advance Directives Date on File: 11/08/21 service: No Current occupational status: unemployed and disabled Review of Systems Const All systems reviewed & are unremarkable except as noted in HPI and below Eyes Reports no additional complaints ENT Reports nasal congestion (ON A DAILY BASIS) and Reports post nasal drip (OFF AND ON) Card Denies irregular heart rhythm and Denies leg edema Resp Reports as per HPI GI Reports no additional complaints Reports no additional complaints Musc Reports back pain and Reports arthralgias Skin/Breast Reports system reviewed and no additional complaints, except as documented Neuro Reports no additional complaints Psych Reports no additional complaints Endo Reports other (BEING TREATED FOR DIABETES MELLITUS) Physical Exam Const General: comfortable (FREQUENT COUGH DURING CONVERSATION), no acute distress, alert and awake Orientation/consciousness: patient oriented x3 HEENT Head: Yes normal to inspection General nose exam: No nasal polyps present and No nasal discharge present Face and sinus: Yes sinuses nontender Mouth: oropharynx normal Throat: Yes posterior oropharynx normal Eyes General: appearance normal, both eyes and all related structures Neck Neck: Yes normal visual inspection, Yes no lymphadenopathy, Yes trachea midline and Yes no JVD Thyroid: Thyroid normal Chest Chest palpation & inspection: abnormal inspection of the chest (PATIENT HAS MIDLINE SCAR FROM PREVIOUS SURGERY), normal palpation of entire chest wall and no tenderness Resp Other: PERCUSSION NOTE RESONANT, BREATH SOUNDS ARE DISTANT, WITH PROLONGED EXPIRATORY PHASE. SHE DOES HAVE BILATERAL WHEEZES . DURING EXAMINATION SHE HAD FREQUENT COUGH . Cardio Palpation: normal PMI Rate: regular rate Rhythm: regular rhythm Heart sounds: no gallops and no murmurs Peripheral pulses: Peripheral pulses 2+ throughout GI Palpation (GI): Soft to palpation, nontender, No hepatosplenomegaly present and no masses Auscultation: normal bowel sounds Back/Spine/Pelvis Thoracic/Lumbar Spine: thoracic and lumbar spine normal to inspection Skin General skin exam: no rashes or lesions noted Neuro General: patient oriented x3 and no focal motor deficits Cranial nerves: Yes CN's II-XII intact bilaterally Extrem General: Yes normal to inspection, Yes no clubbing, cyanosis or edema and Yes no calf tenderness Psych Appearance: grossly normal Speech and movement: Normal speech and movement present Assessment & Plan Assessment & Plan (1) Allergic rhinitis: Comment: SHE HAS CHRONIC ALLERGIC RHINITIS WITH POSTNASAL DISCHARGE CONTRIBUTING TO HER COUGH. RELATIVELY CONTROLLED AT THIS TIME BUT SHE HAS TENDENCY TO HAVE RECURRENT EXACERBATIONS OF NASAL CONGESTION. Code(s): J30.9 - Allergic rhinitis, unspecified Category: Medical Plan: FLONASE 2 SPRAY EACH NOSTRIL DAILY. EXPECTED TO IMPROVE WITH THE START OF BIOLOGIC TREATMENT. (2) Bronchitis: Comment: SHE IS PRONE TO HAVE FREQUENT BOUTS OF ACUTE BRONCHITIS BUT CURRENTLY SHE DOES NOT HAVE ANY ACTIVE BRONCHITIS. EXCEPT FOR INCREASED COUGH AND WHEEZING. Code(s): J40 - Bronchitis, not specified as acute or chronic Category: Medical Plan: SEE UNDER COPD AND ASTHMA (3) Reactive airways dysfunction syndrome: Comment: THIS PATIENT HAS ASTHMA/COPD DISORDER, WITH FREQUENT BOUTS OF COUGH AND WHEEZING. CONTINUES TO HAVE COUGH ON TALKING OR ANY EXERTION AND ALSO CONTINUES TO HAVE BILATERAL WHEEZES. Code(s): J68.3 - Other acute and subacute respiratory conditions due to chemicals, gases, fumes and vapors Category: Medical Plan: SEE UNDER COPD/ASTHMA (4) MARY (obstructive sleep apnea): Comment: PATIENT DOES HAVE HISTORY OF OBSTRUCTIVE SLEEP APNEA BUT SHE STOPPED USING CPAP MANY YEARS AGO. CLAIMS THAT AT THIS TIME SHE IS SLEEPING OKAY. Code(s): G47.33 - Obstructive sleep apnea (adult) (pediatric) Category: Medical Plan: THIS ISSUE IS IN ACTIVE AT THIS TIME (5) Restrictive airway disease: Comment: THIS PATIENT HAS MODERATELY SEVERE RESTRICTIVE LUNG DISORDER, IT IS PARTLY CONTRIBUTED BY HER PREVIOUS STERNOTOMY AND HEALED SCAR FROM CARDIAC SURGERY Code(s): J98.4 - Other disorders of lung Category: Medical Plan: SHE IS ADVISED TO DO DEEP BREATHING EXERCISES BUT SHE CAN NOT DO BECAUSE OF HER ACTIVE ASTHMA (6) COPD (chronic obstructive pulmonary disease): Comment: THIS PATIENT HAS CHRONIC OBSTRUCTIVE PULMONARY DISORDER, RELATED TO HER SMOKING SHE HAS HISTORY OF REPEATED ACUTE EXACERBATIONS AND FREQUENT HOSPITALIZATIONS. THIS PLUS EOSINOPHILIC BRONCHIAL ASTHMA , KEEPS ON GETTING WORSE. Code(s): J44.9 - Chronic obstructive pulmonary disease, unspecified Category: Medical Plan: CONTINUE ADVAIR 500-51 INHALATION B.I.D.. SPIRIVA HANDIHALER 1 INHALATION DAILY. ALBUTEROL HFA Q 4 HOURS P.R.N./ ALTERNATIVELY MAY USE ALBUTEROL SOLUTION IN THE NEBULIZER Q 4-6 HOURS P.R.N. (7) Eosinophilia: Comment: I HAVE REVIEWED THE LAB REPORTS IN THE LAST 2 FEW MONTHS. EOSINOPHIL COUNT HAS BEEN PERSISTENTLY HIGH, . 7.6 , 9.3, ,4.2 ,9.3 THIS IS INDICATED OF THE HER ALLERGIC RHINITIS AND BRONCHIAL ASTHMA SECONDARY TO EOSINOPHILIC . HYPERSENSITIVITY SYNDROME Code(s): D72.10 - Eosinophilia, unspecified Category: Medical Plan: PATIENT NEEDS TO BE STARTED ON BIOLOGIC TREATMENT. WE HAVE HAD ISSUE WITH DUPIXENT WHICH IS NOT APPROVED FOR BEING INJECTED IN THE HOSPITAL SETTING. I WOULD ORDER NUCALA 100 MG SUBQ Q 1 MONTH . BECAUSE OF HER CONFUSION AND DIFFICULTY IN UNDERSTANDING ABOUT THE INJECTION I THINK SHE IS BETTER OF GETTING THE MONTHLY INJECTION IN HOSPITAL INFUSION CENTER. IN THE MEANTIME SHE NEEDS IS SMALL MAINTENANCE DOSE OF PREDNISONE SO I HAVE ORDERED PREDNISONE 5 MG DAILY. AFTER STARTING ON THE BIOLOGIC TREATMENT THE PREDNISONE DOSE WILL BE WEANED OFF. Medications: New prednisone 5 mg PO DAILY 30 days 30 tabs 1RF PERSISTANT ASTHMA Coding Level of Care Code Est Pt Level 4 (27081) Diagnoses Allergic rhinitis J30.9 Bronchitis J40 Reactive airways dysfunction syndrome J68.3 MARY (obstructive sleep apnea) G47.33 Restrictive airway disease J98.4 COPD (chronic obstructive pulmonary disease) J44.9 Eosinophilia D72.10
== END 2024-03-10 13:25 | disposition home or self-care (01) ==
PROVIDERS: PCP Internal Medicine; Visit Provider Internal Medicine
DX: J30.9 Allergic rhinitis, unspecified (principal); J40 Bronchitis, not specified as acute or chronic; J68.3 Other acute and subacute respiratory conditions due to chemicals, gases, fumes and vapors; G47.33 Obstructive sleep apnea (adult) (pediatric); J98.4 Other disorders of lung; J44.9 Chronic obstructive pulmonary disease, unspecified; D72.10 Eosinophilia, unspecified
CPT/HCPCS: 99214

== ENCOUNTER → 2024-03-10 12:38 | Outpatient (BNVA) | payer MEDICAID, SELFPAY | PROVIDERS: PCP Internal Medicine; Visit Provider Internal Medicine | DX: J44.9 Chronic obstructive pulmonary disease, unspecified (principal); J30.9 Allergic rhinitis, unspecified; J40 Bronchitis, not specified as acute or chronic; J98.4 Other disorders of lung; J68.3 Other acute and subacute respiratory conditions due to chemicals, gases, fumes and vapors; G47.33 Obstructive sleep apnea (adult) (pediatric); D72.10 Eosinophilia, unspecified | CPT/HCPCS: 99212 ==

== ENCOUNTER 2024-04-28 15:06 | Outpatient (AMB) | payer MEDICAID, SELFPAY ==
--- NOTE | 2024-04-28 15:22 | A.OFFVIS_ITS ---
Vital Signs 04/28/24 15:23 Height 4 ft 11 in Weight 151 lb 0.266 oz BMI 30.5 BP 140/78 H Blood Pressure Location Lt brachial Position Sitting Pulse 64 Pulse Source Pulse Oximeter Pulse Oximetry (%) 97 Oxygen Delivery Method Room Air Intake Visit Reasons: Asthma Intake Note: pt is here for follow up visit, and states she has been in bed for a month with asthma and other issues Equipment Superintendent Required: Yes Equipment Superintendent Services: Equipment Superintendent Present Equipment Superintendent Name: Lalitha Allergies latex [LATEX] Allergy (Severe, Verified 04/28/24 15:41) DIFFICULTY BREATHING aspirin [Aspirin] Allergy (Intermediate, Verified 04/28/24 15:41) ITCHING, itchiness ciprofloxacin [From CIPRO] Allergy (Intermediate, Verified 04/28/24 15:41) DIAPHORESIS/PURITIS Penicillins [PENICILLINS] Allergy (Unknown, Verified 04/28/24 15:41) UNKNOWN HEMALATHA Inhibitors [HEMALATHA INHIBITORS] Adverse Reaction (Intermediate, Verified 04/28/24 15:41) COUGH Medication List - Last Reconciled 04/28/24 by Wally Simpson MD acetaminophen ER 650 mg PO Q8H PRN albuterol sulfate 90 mcg/actuation (Ventolin HFA) 2 puffs inhalation Q4H PRN albuterol sulfate 2.5 mg inhalation Q4-6H PRN amitriptyline 25 mg PO BEDTIME amlodipine 5 mg PO DAILY bisacodyl 10 mg PO BEDTIME calcium carbonate-vitamin D3 600 mg-10 mcg (400 unit) 1 tab PO DAILY clopidogrel 75 mg PO DAILY cyanocobalamin (vitamin B-12) 1,000 mcg PO DAILY fluticasone propion-salmeterol 500-50 mcg/dose (Advair Diskus) 1 ea inhalation BID folic acid 1 mg PO DAILY gabapentin 100 mg PO TID hydrochlorothiazide 12.5 mg PO DAILY melatonin 5 mg PO BEDTIME PRN montelukast 10 mg PO BEDTIME prednisone 5 mg PO DAILY 30 days sertraline 50 mg PO DAILY tiotropium bromide (Spiriva with HandiHaler) 1 cap inhalation DAILY Do you need a note to return to daycare/school/sports/work: No HPI HPI Asthma: Details: Ting, 63 years old female is back today after a month for follow-up. Cough and wheezing or definitely less than before. This was her 2nd injection of Nucala today. She complains of pains and ache all over, the body general weakness, and she spends more time lying down in the bed. After some conversation in the office and giving her some PAP talk she has become more alert and upright and walking with a cane. She does admit that wheezing and cough is definitely less than before. [facility] Medical History Eosinophilia Severe aortic stenosis COPD (chronic obstructive pulmonary disease) Pacemaker Asthma with exacerbation Smoking Restrictive airway disease MARY (obstructive sleep apnea) MARY on CPAP Reactive airways dysfunction syndrome Rheumatoid arthritis Fibromyalgia GERD (gastroesophageal reflux disease) MARY (obstructive sleep apnea) Aortic valve endocarditis COPD (chronic obstructive pulmonary disease) COPD exacerbation Overactive bladder Bronchitis Allergic rhinitis COPD (chronic obstructive pulmonary disease) Asthma Hx of cardiac pacemaker Hx of migraines Hx of coronary artery disease History of urinary incontinence Hx of essential hypertension History of depression Hx of drug abuse Hx of hyperlipidemia Hx of allergic rhinitis History of enuresis Hx of osteoarthritis Hx of pilonidal cyst Family history of GERD History of arthritis Hx of diabetes mellitus Surgical History History of surgical removal of pilonidal cyst Hx of bilateral cataract extraction Hx of colonoscopy History of cystoscopy History of hysterectomy Hx of aortic valve replacement Hx laparoscopic cholecystectomy History of epidermal inclusion cyst excision Social History Household Members: Family Household Members Other:: son Housing: Apartment Do you presently have visiting nurse or other home services: Yes ([employer] everyday) Alcohol intake: never Comment: refusing alarms Patient Tobacco Use Status: Former Tobacco user Tobacco use type: Cigarette Cigarettes Per Day: 3 e-Cigarette/Vaping Use: Never Used Second Hand Smoke Exposure: No Substance Use Type: Former Substance User Advance Directives Date on File: 11/08/21 service: No Current occupational status: unemployed and disabled Review of Systems Const All systems reviewed & are unremarkable except as noted in HPI and below Eyes Reports no additional complaints ENT Reports nasal congestion (ON A DAILY BASIS) and Reports post nasal drip (OFF AND ON) Card Denies irregular heart rhythm and Denies leg edema Resp Reports as per HPI GI Reports no additional complaints Reports no additional complaints Musc Reports back pain and Reports arthralgias Skin/Breast Reports system reviewed and no additional complaints, except as documented Neuro Reports no additional complaints Psych Reports no additional complaints Endo Reports other (BEING TREATED FOR DIABETES MELLITUS) Physical Exam Vital Signs: Last Vital Signs Pulse 64 04/28/24 15:23 BP 140/78 H 04/28/24 15:23 Pulse Ox 97 04/28/24 15:23 Oxygen Delivery Method Room Air 04/28/24 15:23 BMI result Body Mass Index 30.5 Const General: comfortable (But slow and weak), no acute distress, alert and awake Orientation/consciousness: patient oriented x3 HEENT Head: Yes normal to inspection General nose exam: No nasal polyps present and No nasal discharge present Face and sinus: Yes sinuses nontender Mouth: oropharynx normal Throat: Yes posterior oropharynx normal Eyes General: appearance normal, both eyes and all related structures Neck Neck: Yes normal visual inspection, Yes no lymphadenopathy, Yes trachea midline and Yes no JVD Thyroid: Thyroid normal Chest Chest palpation & inspection: abnormal inspection of the chest (PATIENT HAS MIDLINE SCAR FROM PREVIOUS SURGERY), normal palpation of entire chest wall and no tenderness Resp Other: PERCUSSION NOTE RESONANT, BREATH SOUNDS ARE DISTANT, WITH PROLONGED EXPIRATORY PHASE. SHE DOES HAVE BILATERAL WHEEZES , BUT MUCH LESS THAN BEFORE . Cardio Palpation: normal PMI Rate: regular rate Rhythm: regular rhythm Heart sounds: no gallops and no murmurs Peripheral pulses: Peripheral pulses 2+ throughout GI Palpation (GI): Soft to palpation, nontender, No hepatosplenomegaly present and no masses Auscultation: normal bowel sounds Back/Spine/Pelvis Thoracic/Lumbar Spine: thoracic and lumbar spine normal to inspection Skin General skin exam: no rashes or lesions noted Neuro General: patient oriented x3 and no focal motor deficits Cranial nerves: Yes CN's II-XII intact bilaterally Extrem General: Yes normal to inspection, Yes no clubbing, cyanosis or edema and Yes no calf tenderness Psych Appearance: grossly normal Speech and movement: Normal speech and movement present Assessment & Plan Assessment & Plan (1) COPD (chronic obstructive pulmonary disease): Comment: THIS PATIENT HAS CHRONIC OBSTRUCTIVE PULMONARY DISORDER, RELATED TO HER SMOKING SHE HAS HISTORY OF REPEATED ACUTE EXACERBATIONS AND FREQUENT HOSPITALIZATIONS. THIS PLUS EOSINOPHILIC BRONCHIAL ASTHMA , KEEPS ON GETTING WORSE. TODAY ON AUSCULTATION HER WHEEZING IS DEFINITELY LESS THAN BEFORE, AND I THINK SHE IS SOMEWHAT IMPROVED. THIS MAY BE DUE TO BIOLOGIC TREATMENT AND ALSO DUE TO PREDNISONE 5 MG DAILY. Code(s): J44.9 - Chronic obstructive pulmonary disease, unspecified Category: Medical Plan: PREDNISONE REDUCED TO 5 MG ON ALTERNATE DAYS. CONTINUE BIOLOGIC TREATMENT AND INJECTION OF NUCALA Q 1 MONTH. .OTHER MEDICATIONS SAME BEFORE (2) Reactive airways dysfunction syndrome: Comment: THIS PATIENT HAS ASTHMA/COPD DISORDER, WITH FREQUENT BOUTS OF COUGH AND WHEEZING. CONTINUES TO HAVE COUGH ON TALKING OR ANY EXERTION AND ALSO CONTINUES TO HAVE BILATERAL WHEEZES. Code(s): J68.3 - Other acute and subacute respiratory conditions due to chemicals, gases, fumes and vapors Category: Medical Plan: TREATMENT IS SAME UNDER COPD. (3) MARY on CPAP: Comment: SHE IS A KNOWN CASE OF OBSTRUCTIVE SLEEP APNEA BUT HAS NOT BEEN ABLE TO USE CPAP. Code(s): G47.33 - Obstructive sleep apnea (adult) (pediatric); Z99.89 - Dependence on other enabling machines and devices Category: Medical Plan: PATIENT NEEDS TO LOSE WEIGHT BUT SHE REMAINS VERY INACTIVE AND IS DIFFICULT FOR HER TO LOSE WEIGHT AT THIS TIME. (4) Restrictive airway disease: Comment: THIS PATIENT HAS MODERATELY SEVERE RESTRICTIVE LUNG DISORDER, IT IS PARTLY CONTRIBUTED BY HER PREVIOUS STERNOTOMY AND HEALED SCAR FROM CARDIAC SURGERY Code(s): J98.4 - Other disorders of lung Category: Medical Plan: AGAIN INSTRUCTED TO DO DEEP BREATHING EXERCISES 2 OR 3 TIMES A DAY (5) Smoking: Comment: SHE HAS LONGSTANDING HISTORY OF SMOKING SHE HAS CUT DOWN THE SMOKING IN THE PAST FEW YEARS, STILL SMOKING ABOUT 3 CIGARETTES A DAY. HAS BEEN COUNSELED MANY TIMES TO STOP COMPLETELY. I THINK IT IS HER ANXIETY WHICH HE DRIVES HER TO SMOKE A FEW CIGARETTES EVERY DAY. Code(s): F17.200 - Nicotine dependence, unspecified, uncomplicated Category: Social Hx Plan: AGAIN TOLD THAT SHE NEEDS TO QUIT SMOKING COMPLETELY Coding Level of Care Code Est Pt Level 3 (87127) Diagnoses COPD (chronic obstructive pulmonary disease) J44.9 Reactive airways dysfunction syndrome J68.3 MARY on CPAP G47.33; Z99.89 Restrictive airway disease J98.4 Smoking F17.200
[2024-04-28 15:23] VITALS: BP 140/78; PULSE 64; O2SAT 97; BMI 30.5
--- OUTSIDE RECORDS SUMMARY | 2024-04-28 17:58 | XMS_ITS | Encounter Summary ---
Author Organization [employer] Address [address] [facility] 7t [place] [address] Care Team Providers Care Medicaid Business Analyst Name Role Phone Ting Packer MD Primary Care Provide r Reason for Visit * Reason Onset Date Comments Hospital Follow-up 08/09/2023 Encounter Details Date Type Department Care Team ([facility] st Contact Info) Description 08/09/2023 Telephone [facility] MEDICINE [address] [place], [place] [phone] Ting Packer MD [address] [place], [place] [phone] Hospital Follow-up Social History Tobacco Use Types Packs/Day Years Used Date Smoking Tobacco: Former Cigarettes Passive Smoke Exposure: Past Smokeless Tobacco: Never Depression Answer Date Recorded Patient Health Questionnaire-9 Score 6 05/23/2022 Housing Stability Answer Date Recorded What is your housing situation today? I have luisana mccall 12/11/[address] you li ve. Do you have problems with any of the following? None of the above 12/11/2022 Food Insecurity Answer Date Recorded Within the past 12 months, y ou worried that your food would run out before you got money to buy more: Never True 12/11/2022 Within the past 12 months,th e food you bought just didn't last and you didn't have enough money to get more: Never True Transportation Answer Date Recorded In the past 12 months, has l ack of transportation kept you from medical appts, meetings, work or from getting things needed for daily living? No 05/24/2023 Utilities Answer Date Recorded In the past 12 months, has t he electric, gas, oil or water company threatened to shut off services in your home? No 12/11/2022 Depression Answer Date Recorded Patient Health Questionnaire-2 Score 4 05/23/2022 Comments Unknown Sex and Gender Information Value Date Recorded Sex Assigned at Female 12/26/2021 10:14 AM EDT Legal Sex Female 10:14 AM EDT Gender Identity Female 12/26/2021 10:14 AM EDT Sexual Orientation Straight 12/26/2021 10 :14 AM EDT documented as of this encounter Miscellaneous Notes * Telephone Encounter - Morro Romero - 08/09/2023 3:52 PM EDT Tc from pt requesting a HDF appt. Hospital: [facility] Date of admission: 08/05 Discharge date: 08/07 Diagnosed: Peacemaker in heart documented in this encounter Plan of Treatment Upcoming Encounters Date Type Department Care Team (Late st Contact Info) Description 05/01/2024 3:15 PM EST Office Visit [facility] MED[facility]INE [address] [place] [address] Ting Packer MD [address] [place] [address] documented as of this encounter Visit Diagnoses Not on filedocumented in this encounter Additional Health Concerns Assessment Noted Time PHQ-9 Depression Total Score: 6 05/24/19 23 1:28 PM EDT documented as of this encounter Care Teams Medicaid Business Analyst Relationship Specialty Start Date End Date Ting Packer MD [address] [place] [address] PCP - General Family Medicine 02/13/19 Martha Mast Assembler Dry Cell And BatteryLambskin Trimmer 07/20/23 documented as of this encounter
--- OUTSIDE RECORDS SUMMARY | 2024-04-28 17:58 | XMS_ITS | Encounter Summary ---
Author Organization [employer] Address [address] [facility] 7t [place] [address] Care Team Providers Care Industrial Rehabilitation Consultant Name Role Phone Ting Packer MD Primary Care Provide r Reason for Visit * Reason Comments Med Refill Encounter Details Date Type Department Care Team ([facility] st Contact Info) Description 09/17/2023 Refill [facility] [address] [place], [place] [phone] Ting Packer MD [address] [place] [address] Sleeping difficulty Social History Tobacco Use Types Packs/Day Years Used Date Smoking Tobacco: Former Cigarettes Passive Smoke Exposure: Past Smokeless Tobacco: Never Alcohol Answer Date Recorded Frequency of Alcohol Consumption Not on file 09/18/2023 Average Number of Drinks Not on file 024 Frequency of Binge Drinking Not on file 08/27 Score 0 09/18/2023 Depression Answer Date Recorded Patient Health Questionnaire-9 Score 3 09/18/2023 Patient Health Questionnaire-9 Score 3 09/18/2023 Last PHQ-9: Questionnaire Data Not on file 0 09/18/2023 Housing Stability Answer Date Recorded What is [...] Answer Date Recorded Patient Health Questionnaire-2 Score 1 09/18/2023 Comments Unknown Sex and Gender Information Value Date Recorded Sex Assigned at Female 12/26/2021 10:14 AM EDT Legal Sex Female 10:14 AM EDT Gender Identity Female 12/26/2021 10:14 AM EDT Sexual Orientation Straight 12/26/2021 10 :14 AM EDT documented as of this encounter Plan of Treatment Upcoming Encounters Date Type Department Care Team (Late st Contact Info) Description 05/01/2024 3:15 PM EST Office Visit [facility] MEDICINE [address] [place] [phone] Ting Packer MD [address] [place] [address] documented as of this encounter Visit Diagnoses Diagnosis Sleeping difficulty Unspecified sleep disturbance documented in this encounter Additional Health Concerns Assessment Noted Time PHQ-9 Depression Total Score: 6 05/24/19 23 1:28 PM EDT documented as of this encounter Care Teams Industrial Rehabilitation Consultant Relationship Specialty Start Date End Date Ting Packer MD [address] [place] [phone] PCP - General Family Medicine 02/13/19 Martha Mast Vat WasherTariff Supervisor 07/20/23 documented as of this encounter
--- OUTSIDE RECORDS SUMMARY | 2024-04-28 17:58 | XMS_ITS | Encounter Summary ---
Author Organization [employer] Address [address] [facility] 7t [place] [address] Care Team Providers Care Licensed Weigher Name Role Phone Ting Packer MD Primary Care Provide r Encounter Details Date Type Department Care Team (Late st Contact Info) Description 09/12/2023 Telephone [facility]ICINE [address] [place], [place] [phone] Ting Packer MD [address] [place], [place] [phone] Social History Tobacco Use Types Packs/Day Years [...] Description 05/01/2024 3:15 PM EST Office Visit [facility] MED[facility]INE [address] [place] [address] Ting Packer MD [address] [place] [address] documented as of this encounter Visit Diagnoses Not on filedocumented in this encounter Additional Health Concerns Assessment Noted Time PHQ-9 Depression Total Score: 6 05/24/19 23 1:28 PM EDT documented as of this encounter Care Teams Licensed Weigher Relationship Specialty Start Date End Date Ting Packer MD [address] [place] [address] PCP - General Family Medicine 02/13/19 Martha Mast Surveillance ObserverMetals Sales Representative 07/20/23 documented as of this encounter
--- OUTSIDE RECORDS SUMMARY | 2024-04-28 17:58 | XMS_ITS | Encounter Summary ---
Author Organization [employer] Address [address] [facility] 7t [place] [address] Care Team Providers Care Putty And Patch Worker Name Role Phone Ting Packer MD Primary Care Provide r Reason for Visit * Reason Comments Med Refill Encounter Details Date Type Department Care Team ([facility] st Contact Info) Description 06/08/2023 Refill [facility] [address] [place], [place] [phone] Ting Packer MD [address] [place], [place] [phone] Social History Tobacco Use Types Packs/Day Years [...] Description 05/01/2024 3:15 PM EST Office Visit [facility] MED[facility] [address] [place] [address] Ting Packer MD [address] [place] [address] documented as of this encounter Visit Diagnoses Not on filedocumented in this encounter Additional Health Concerns Assessment Noted Time PHQ-9 Depression Total Score: 6 05/24/19 23 1:28 PM EDT documented as of this encounter Care Teams Putty And Patch Worker Relationship Specialty Start Date End Date Ting Packer MD [address] [place] [address] PCP - General Family Medicine 02/13/19 Martha aMst Telecommunications OfficerHot Blast Worker 07/20/23 documented as of this encounter
--- OUTSIDE RECORDS SUMMARY | 2024-04-28 17:58 | XMS_ITS | Encounter Summary ---
Author Organization [employer] Address [address] [facility] 7t [place] [address] Care Team Providers Care City Alderman Name Role Phone Ting Packer MD Primary Care Provide r Reason for Visit * Reason Comments Med Refill Encounter Details Date Type Department Care Team ([facility] st Contact Info) Description 03/23/2024 Refill [facility] MEDICINE [address] [place], [place] [phone] Ting Packer MD [address] [place], [place] [phone] Polyarthralgia Social History Tobacco Use Types Packs/Day Years [...] Description 05/01/2024 3:15 PM EST Office Visit [facility] MEDICINE [address] [place] [address] Ting Packer MD [address] [place] [address] documented as of this encounter Visit Diagnoses Diagnosis Polyarthralgia Pain in joint, multiple sites documented in this encounter Additional Health Concerns Assessment Noted Time PHQ-9 Depression Total Score: 3 09/18/19 24 2:01 PM EDT documented as of this encounter Care Teams City Alderman Relationship Specialty Start Date End Date Ting Packer MD [address] [place] [address] PCP - General Family Medicine 02/13/19 Martha Mast Junior ProgrammerDirect Marketing Representative 07/20/23 documented as of this encounter
--- OUTSIDE RECORDS SUMMARY | 2024-04-28 17:58 | XMS_ITS | Continuity of Care Document ---
Author Organization [facility] Address [address] [place] [phone]- Care Team Providers Care Post Office Clerk Name Role Phone Joshua Hampton MD, Allyson Osman Primary Care Physici an Encounter [facility] Date(s): 03/18/24 - 04/17/24 [facility] [address] [place] [address]- Encounter Type: Triage Allergies, Adverse Reactions, Alerts Substance Criticality Severity Reaction Reaction Severity Status ciprofloxacin Active aspirin Active shellfish hives Active Immunizations Given and Recorded Vaccine Date Status Refusal Reason Influenza Inactive (IM) (oldterm) 1 12/05/07 Given Pneumococcal Vaccine (oldterm) 2 09/30/07 Given 1Admin Note: SANOFI PASTEUR 2Result Comment: [id number] Medications Advair Diskus 250 mcg-50 mcg inhalation [...] 1:25:00 PM EDT, Route to Pharmacy Electronically, [facility], 150, cm, 07/05/23 15:49:00 [...] Team Personnel Name: Allyson Packer MD Position: [facility] Outreach Member Role: PCP Address: [address] [place] [address] [address] [place] [address]- Telecom: Care Team Related Persons Name: SHAHAB HERCULES Name: ALLYSON MCKENNA Name: KIRA DOTSON Name: RISA DOTSON Insurance Providers Guarantor name: [facility] Information #: 1 [facility] [employer] Member Number: NA Policy Number: NA Group Number: NA
--- OUTSIDE RECORDS SUMMARY | 2024-04-28 17:58 | XMS_ITS | Encounter Summary ---
Author Organization [employer] Address [address] [facility] 7t [place] [address] Care Team Providers Care Heel Slicker Name Role Phone Ting Packer MD Primary Care Provide r Encounter Details Date Type Department Care Team (Late st Contact Info) Description 02/29/[address] [facility] MEDICINE [address] [place], [place] [phone] Ting Packer MD [address] [place], [place] [phone] Social History Tobacco Use Types Packs/Day Years [...] Description 05/01/2024 3:15 PM EST Office [address] [facility] MED[facility]INE [address] [place] [address] Ting Packer MD [address] [place] [phone] documented as of this encounter Visit Diagnoses Not on filedocumented in this encounter Additional Health Concerns Assessment Noted Time PHQ-9 Depression Total Score: 3 09/18/19 24 2:01 PM EDT documented as of this encounter Care Teams Heel Slicker Relationship Specialty Start Date End Date Ting Packer MD [address] [place] [address] PCP - General Family Medicine 02/13/19 Martha Mast Roving TellerMachine Tester 07/20/23 documented as of this encounter
--- OUTSIDE RECORDS SUMMARY | 2024-04-28 17:58 | XMS_ITS | Encounter Summary ---
Author Organization [employer] Address [address] [facility] 7t [place] [address] Care Team Providers Care Outlet Manager Name Role Phone Ting Packer MD Primary Care Provide r Reason for Visit * Reason Onset Date Comments Nurse Triage 04/07/2024 Encounter Details Date Type Department Care Team ([facility] st Contact Info) Description 04/07/2024 Telephone [facility] MEDICINE [address] [place], [place] [phone] Ting Packer MD [address] [place], [place] [phone] Nurse Triage Social History Tobacco Use Types Packs/Day Years [...] encounter Miscellaneous Notes * Telephone Encounter - Mesha De Guzman LPN - 04/07/2024 12:32 PM EST Triage call returned to mitzi Romero.With patient today who went for PFT testing. Patient has had complaints of pain on but sides of her nose for several weeks. No fever no blood in nose no ear pain or sore throat reported. Patient carries a towel to wipe her nose and COVERED BUCKLE ASSEMBLER concerned that as of today it looks red and a bit swollen. Patient does not want to go back out today. COVERED BUCKLE ASSEMBLER provided hours for [facility] late hours Sunday and Sunday. Patient had agreed to [facility] earlier with COVERED BUCKLE ASSEMBLER. Protocol Used: No Protocol Available (Adult) Protocol-Based Disposition: See in Office or Video Visit within 3 Days Video visit not offered Positive Triage Question: * Nursing judgment * All higher-acuity triage questions were negative Care Advice Discussed: * Reasons To Call Back - New symptoms develop - You become worse * Telephone Encounter - Rand Perez - 04/07/2024 12:07 PM EST Symptom: Nose Pain Outcome: Schedule an urgent appointment (within 1 hour) or talk to a nurse or provider soon Reason: Severe pain now The caller accepted this outcome. Contact pt MITZI Romero [phone] documented in this encounter Plan of Treatment Upcoming Encounters Date Type Department Care Team (Late st Contact Info) Description 05/01/2024 3:15 PM EST Office Visit [facility] MEDICINE [address] [place] [address] Ting Packer MD [address] [place], [place] [phone] documented as of this encounter Visit Diagnoses Not on filedocumented in this encounter Additional Health Concerns Assessment Noted Time PHQ-9 Depression Total Score: 3 09/18/19 24 2:01 PM EDT documented as of this encounter Care Teams Outlet Manager Relationship Specialty Start Date End Date Ting Packer MD [address] [place], [place] [phone] PCP - General Family Medicine 02/13/19 Martha Mast Laborer RoadEquipment Tester 07/20/23 documented as of this encounter
--- OUTSIDE RECORDS SUMMARY | 2024-04-28 17:58 | XMS_ITS | Encounter Summary ---
Author Organization [facility] Address [address] [place] [address] 7t [place] [address] Care Team Providers Care Ammonia Operator Name Role Phone Ting Packer MD Primary Care Provide r Encounter Details Date Type Department Care Team (Late st Contact Info) Description 11/03/2022 Telephone [facility] [address] [place] [phone] Ting Packer MD [address] [place] [address] [phone] Social History Tobacco Use Types Packs/Day Years Used Date Smoking Tobacco: Every Day Cigarettes Passive Smoke Exposure: Current Smokeless Tobacco: Never Depression Answer Date Recorded Patient Health Questionnaire-9 Score 6 05/23/2022 Depression Answer Date Recorded Patient Health Questionnaire-2 [...] Description 05/01/2024 3:15 PM EST Office Visit [facility] [address] [place], [place] [phone] Ting Packer MD [address] [place], [place] [phone] documented as of this encounter Visit Diagnoses Not on filedocumented in this encounter Additional Health Concerns Assessment Noted Time PHQ-9 Depression Total Score: 6 03/28/20 23 1:28 PM EDT documented as of this encounter Care Teams Ammonia Operator Relationship Specialty Start Date End Date Ting Packer MD [address] [place] [phone] PCP - General Family Medicine 02/13/19 Martha Mast Field Auto AppraiserField Service Manager 07/20/23 documented as of this encounter
--- OUTSIDE RECORDS SUMMARY | 2024-04-28 17:58 | XMS_ITS | Encounter Summary ---
Author Organization [employer] Address [address] [facility] 7t [place] [address] Care Team Providers Care Supervisor Print Line Name Role Phone Ting Packer MD Primary Care Provide r Reason for Visit * Reason Onset Date Comments Med Refill 01/31/2024 Encounter Details Date Type Department Care Team ([facility] st Contact Info) Description 01/31/2024 Telephone [facility] [address] [place], [place] [phone] Ting Packer MD [address] [place], [place] [phone] Med Refill Social History Tobacco Use Types Packs/Day Years [...] encounter Miscellaneous Notes * Telephone Encounter - Beka Marin - 01/31/2024 11:45 AM EST TC from pt requesting medication refill. Medications needing refill : predniSONE (Deltasone) 20 MG tablet To be sent to: [facility] documented in this encounter Plan of Treatment Upcoming Encounters Date Type Department Care Team (Late st Contact Info) Description 05/01/2024 3:15 PM EST Office Visit [facility] [address] [place] [phone] Ting Packer MD [address] [place] [address] documented as of this encounter Visit Diagnoses Not on filedocumented in this encounter Additional Health Concerns Assessment Noted Time PHQ-9 Depression Total Score: 3 09/18/19 24 2:01 PM EDT documented as of this encounter Care Teams Supervisor Print Line Relationship Specialty Start Date End Date Ting Packer MD [address] [place] [phone] PCP - General Family Medicine 02/13/19 Martha Mast Machine InspectorRetail Area Manager 07/20/23 documented as of this encounter
--- OUTSIDE RECORDS SUMMARY | 2024-04-28 17:58 | XMS_ITS | Encounter Summary ---
Author Organization [employer] Address [address] [facility] 7t [place] [address] Care Team Providers Care Carbon Paper Coating Machine Setter Name Role Phone Ting Packer MD Primary Care Provide r Reason for Visit * Reason Onset Date Comments PT1 09/12/2023 Encounter Details Date Type Department Care Team ([facility] st Contact Info) Description 09/12/2023 Telephone [facility] [address] [place], [place] [phone] Ting Packer MD [address] [place], [place] [phone] PT1 Social History Tobacco Use Types Packs/Day Years Used Date Smoking Tobacco: Former Cigarettes Passive Smoke Exposure: Past Smokeless Tobacco: Never Depression Answer Date Recorded Patient Health Questionnaire-9 Score 6 05/23/2022 Housing Stability Answer Date Recorded What is your housing situation today? I have luisanajuan j mccall 12/11/[address] you [...] encounter Miscellaneous Notes * Telephone Encounter - Isis Chandra - 09/12/2023 9:39 AM EDT Sandra with [employer] calling requesting PT1 Home Address verified: Y/N: Yes Provider name or facility name: [facility] Facility Address: [address] [place] [address] Escort needed: Y/N: Yes Do you have a wheelchair: Y/N: No If yes- Manual or electric: No Visits: All future Visits Sandra with [employer] calling requesting PT1 Home Address verified: Y/N: Yes Provider name or facility name: [facility] Facility Address: [address] [place] [address] Escort needed: Y/N: Yes Do you have a wheelchair: Y/N: No If yes- Manual or electric: No Visits: All future Visits documented in this encounter Plan of Treatment Upcoming Encounters Date Type Department Care Team ([facility] st Contact Info) Description 05/01/2024 3:15 PM EST Office Visit [facility] [address] [place] [address] Ting Packer MD [address] [place] [phone] documented as of this encounter Visit Diagnoses Not on filedocumented in this encounter Additional Health Concerns Assessment Noted Time PHQ-9 Depression Total Score: 6 05/24/19 23 1:28 PM EDT documented as of this encounter Care Teams Carbon Paper Coating Machine Setter Relationship Specialty Start Date End Date Ting Packer MD [address] [place] [address] PCP - General Family Medicine 02/13/19 Martha Mast Work CounselorTooling Engineer 07/20/23 documented as of this encounter
--- OUTSIDE RECORDS SUMMARY | 2024-04-28 17:58 | XMS_ITS | Encounter Summary ---
Author Organization [facility] Address [address] [place] [address] 7t [place] [address] Care Team Providers Care Flyer Builder Name Role Phone Ting Packer MD Primary Care Provide r Encounter Details Date Type Department Care Team (Late st Contact Info) Description 11/16/2022 Orders Only [facility] [address] [place] [phone] Provider, Jacob, Social History Tobacco Use Types Packs/Day Years [...] Description 05/01/2024 3:15 PM EST Office Visit [facility] [address] [place] [phone] Ting Packer MD [address] [place] [phone] documented as of this encounter Procedures Procedure Name Priority Date/Time Associated Diagnosis Comments HM COLONOSCOPY Routine 01/16/2017 documented in this encounter Results * Hm Colonoscopy (01/16/2017) Historical Provider HEALTH MAINTENANCE Final Result documented in this encounter Visit Diagnoses Not on filedocumented in this encounter Additional Health Concerns Assessment Noted Time PHQ-9 Depression Total Score: 6 05/24/19 23 1:28 PM EDT documented as of this encounter Care Teams Flyer Builder Relationship Specialty Start Date End Date Ting Packer MD [address] [place] [address] PCP - General Family Medicine 02/13/19 Martha Mast Paper Processing Machine HelperAdjunct Professor 07/20/23 documented as of this encounter
--- OUTSIDE RECORDS SUMMARY | 2024-04-28 17:58 | XMS_ITS | Encounter Summary ---
Author Organization [employer] Address [address] [facility] 7t [place] [address] Care Team Providers Care Siebel Developer Name Role Phone Ting Packer MD Primary Care Provide r Reason for Visit * Reason Onset Date Comments Hospital Follow-up 03/22/2023 Encounter Details Date Type Department Care Team ([facility] st Contact Info) Description 03/22/2023 Telephone [facility] [address] [place], [place] [phone] Ting Packer MD [address] [place], [place] [phone] Hospital Follow-up Social History Tobacco Use Types [...] from getting things needed for daily living? Yes, it has kept me from non-medical meetings, work, or getting things that I need 03/22/2023 Utilities Answer Date Recorded In the past [...] encounter Miscellaneous Notes * Telephone Encounter - Maite Woodson - 03/22/2023 2:38 PM EST Tc from pt requesting a HDF appt. Hospital: [facility] Date of admission[facility]: 03/14 [facility]:03/15 Discharge date: [facility]:03/15 [facility]: 03/17 Diagnosed: asthma and COPD Please contact pt at [phone] (Bengali) documented in this encounter Plan of Treatment Upcoming Encounters Date Type Department Care Team (Late st Contact Info) Description 05/01/2024 3:15 PM EST Office Visit [facility] [address] [place] [address] [phone] Ting Packer MD [address] [place] [address] documented as of this encounter Visit Diagnoses Not on filedocumented in this encounter Additional Health Concerns Assessment Noted Time PHQ-9 Depression Total Score: 6 05/24/19 23 1:28 PM EDT documented as of this encounter Care Teams Siebel Developer Relationship Specialty Start Date End Date Ting Packer MD [address] [place], [place] [phone] PCP - General Family Medicine 02/13/19 Martha Mast Last Putter AwayDirector Of Programming 07/20/23 documented as of this encounter
--- OUTSIDE RECORDS SUMMARY | 2024-04-28 17:58 | XMS_ITS | Clinical Summary ---
Author Organization [employer] Address [address] [place] [address] [address] [place] [address] Care Team Providers Care Oil Lease Buyer Name Role Phone Ting Packer MD Primary Care Provide r Allergies Active Allergy Reactions Criticality Noted Date Comments José Inhibitors Cough 10/26/2011 Aspirin 10/17/2011 Ciprofloxacin 05/15/2022 Latex High 06/20/2022 Other reaction(s): DIFFICULTY BREATHING Penicillin G 11/30/2017 Shellfish Allergy 05/15/2022 Other reaction(s): hives Medications clopidogrel (Plavix) 75 MG tablet TAKE 1 TABLET BY MOUTH EVERY MORNING 04/18/19 23 Active Spacer/Aero-Hold ing Chambers (OptiChamber Conchita) misc 1 each every 4 (four) hours if needed (asthma). 1 each 08/11/19 23 Active nicotine polacrilex (Nicorette) 2 MG gum Chew 1 piece every 1-2 hours as needed for nicotine craving. Max 24 pieces/24 hours 100 each 02/24/20 23 Active Respiratory Therapy Supplies (Nebulizer/Tubin g/Mouthpiece) kitIndications:M oderate persistent asthma with acute exacerbation To be used with Nebulizer 1 kit 03/13/19 24 Active guaiFENesin-Code ine (CODEINE-GUAIFEN ESIN PO) Take 5 mL by mouth every 4 (four) hours if needed. 03/15/19 24 Active tiotropium (Spiriva HandiHaler) 18 MCG inhalation capsule USE 1 CAPSULE FOR INHALATION ONCE A DAY. DO NOT SWALLOW CAPSULE. 30 capsule 11 07/19/19 24 Active lidocaine (Lidoderm) 5 % patchIndications :Upper back pain Apply 1 patch topically Once per day. Remove & discard patch within 12 hours or as directed by MD. 30 patch 1 07/19/19 24 Active Fluticasone-Salm eterol 500-50 MCG/ACT aerosol powder Inhale 1 puff 2 times daily. 1 each 09/11/19 24 Active Ventolin HFA 108 (90 Base) MCG/ACT inhalerIndicatio ns:Severe persistent asthma with exacerbation INHALE 2 PUFFS BY MOUTH EVERY 4 HOURS NEEDED FOR WHEEZING 18 g 3 10/22/19 24 Active Calcium Carb-Cholecalcif lg 600-10 MG-MCG tabletIndication s:Osteopenia, unspecified location TAKE 1 TABLET BY MOUTH EVERY MORNING 90 tablet 1 12/03/19 24 Active bisacodyl (Bisacodyl EC) 5 MG EC tablet TAKE 2 TABLETS BY MOUTH AT BEDTIME 180 tablet 1 12/03/19 24 Active hydroCHLOROthiaz rey 12.5 MG tabletIndication s:Primary hypertension TAKE 1 TABLET BY MOUTH EVERY MORNING 90 tablet 1 12/03/19 24 Active montelukast (Singulair) 10 MG tabletIndication s:Primary hypertension TAKE 1 TABLET BY MOUTH EVERY EVENING 90 tablet 1 12/03/19 24 Active ipratropium-albu terol (Duo-Neb) 0.5-2.5 mg/3 mL nebulizer solutionIndicati ons:Moderate persistent asthma with acute exacerbation INHALE 1 AMPULE USING A NEBULIZER FOUR TIMES DAILY (for COPD) 75 mL 12/25/19 24 Active amitriptyline (Elavil) 25 MG tabletIndication s:Migraine without aura and without status migrainosus, not intractable TAKE 1 TABLET BY MOUTH AT BEDTIME 90 tablet 1 01/02/20 24 Active cyanocobalamin (Vitamin B-12) 1000 MCG tabletIndication s:Vitamin deficiency TAKE 1 TABLET BY MOUTH EVERY MORNING 90 tablet 1 01/02/20 24 Active folic acid (Folvite) 1 MG tabletIndication s:Vitamin deficiency TAKE 1 TABLET BY MOUTH EVERY MORNING 90 tablet 1 01/02/20 24 Active azithromycin (Zithromax) 250 MG tabletIndication s:COPD exacerbation (CMS/HCC) Take 2 tabs PO daily x 1d then 1 tab PO daily on D2 to D5 6 tablet 01/14/20 24 Active sertraline (Zoloft) 50 MG tabletIndication s:Other depression TAKE 1 TABLET BY MOUTH EVERY MORNING 30 tablet 5 01/29/20 24 Active amLODIPine (Norvasc) 5 MG tabletIndication s:Hypertension, unspecified type TAKE 1 TABLET BY MOUTH EVERY MORNING 90 tablet 3 01/31/20 24 Active predniSONE (Deltasone) 20 MG tablet Take 2 tabs orally daily for 3 days, then 1 tab orally daily for 4 days 10 tablet 02/08/20 24 Active acetaminophen (Tylenol 8 Hour) 650 MG ER tabletIndication s:Multiple joint pain TAKE 1 TABLET BY MOUTH EVERY 8 HOURS NEEDED FOR PAIN 30 tablet 1 02/25/20 24 Active melatonin 5 MG tabletIndication s:Sleeping difficulty TAKE 1 TABLET BY MOUTH AT BEDTIME NEEDED FOR SLEEP 90 tablet 1 02/26/20 24 Active albuterol (2.5 MG/3ML) 0.083% nebulizer solutionIndicati ons:Moderate persistent asthma with acute exacerbation INHALE 1 AMPULE USING A NEBULIZER EVERY 4 TO 6 HOURS NEEDED FOR WHEEZING OR SHORTNESS OF BREATH 90 mL 1 03/20/19 25 Active gabapentin (Neurontin) 100 MG capsuleIndicatio ns:Polyarthralgi a TAKE 1 CAPSULE BY MOUTH THREE TIMES DAILY IN THE MORNING, EVENING, AND BEDTIME 90 capsule 04/22/19 25 Active gabapentin (Neurontin) 100 MG capsuleIndicatio ns:Polyarthralgi a TAKE 1 CAPSULE BY MOUTH THREE TIMES DAILY IN THE MORNING, EVENING, AND BEDTIME 90 capsule 03/27/19 25 025 Discontinued Hospital, Clinic, or Other Facility Administered Medication Ordered Dose Route Frequency Start Date End Date Status predniSONE (Deltasone) tablet 50 mgIndications:COPD exacerbation (CMS/HCC) 50 mg PO Daily 02/08/2024 Ac tive Active Problems Problem Noted Date Diagnosed Date COPD exacerbation 12/25/2023 Assessment & Plan (01/14/2024 4:48 PM EST): I prescribed z-pack Prednisone extended now 60mg daily ED precautions reviewed Assessment & Plan (12/25/2023 6:22 PM EDT): Unclear if related to CHF? Will order BNP and fu results. Advised to take PRD 40mg x 5d and fu with PCP Continue duoneb q6h prn sob Continue Advair bid FU with PCP Asthma-COPD overlap syndrome 09/18/2023 Assessment & Plan (01/14/2024 4:47 PM EST): C/w current medication regimen Continue to follow with specialist Assessment & Plan (09/18/2023 2:53 PM EDT): C/w advir, montelukast, tiotropium, albuterol PRN Continue to follow with pulmonology Prediabetes 09/18/2023 Assessment & Plan (01/14/2024 4:50 PM EST): Today extensive discussion was done about life style modifications I advise healthy diet (low calorie) and cardiovascular exercise Assessment & Plan (09/18/2023 2:56 PM EDT): Today extensive discussion was done about life style modifications I advise healthy diet (low calorie) Aortic valve disorder 09/18/2023 Assessment & Plan (09/18/2023 2:55 PM EDT): Continue to follow with cardiology Patient is plan for right cardiac cath Upper back pain 07/19/2023 Assessment & Plan (07/19/2023 11:58 AM EDT): Lidocaine patch alternate with diclofenac gel Apply heat on affected area C/w acetaminophen PRN Pain of left heel 07/19/2023 Assessment & Plan (07/19/2023 11:57 AM EDT): C/e acetaminophen PRN Diclofenac gel can be apply locally Podiatry referral Severe persistent asthma 06/01/2023 Assessment & Plan (06/01/2023 5:35 PM EDT): Urgent referral to pulmonology for further evaluation and management Severe persistent asthma with exacerbation 05/31 Hospital discharge follow-up 04/02/2023 Assessment & Plan (04/02/2023 1:44 PM EST): Medications reviewed F/u with specialists also reviewed Severe persistent asthma with (acute) exacerbati on 03/02/2023 Assessment & Plan (07/19/2023 12:00 PM EDT): Information of pulmonology referral will be mail to patient Care management referral to help her with her appointments Assessment & Plan (04/02/2023 1:42 PM EST): Patient extensibly educated to avid asthma triggers I will give her prednisone 60mg for 7 days I will reach out pulmonology office to find out when is patient's next appointment C/w albuterol inhaler/nebz Q 4-6hrs C/w current medication regimen Assessment & Plan (03/02/2023 1:54 PM EST): I will call ambulance and send patient back to the hospital Acute UTI 12/25/2022 12/25/2022 Allergic rhinitis 12/25/2022 12/25/2022 Bronchitis 12/25/2022 12/25/2022 Hx of diabetes mellitus 12/25/2022 12/26/19 MARY on CPAP 12/25/2022 12/25/2022 Reactive airways dysfunction syndrome 12/25/2022 12/25/2022 Tobacco dependence 08/10/2022 COPD (chronic obstructive pulmonary disease) Assessment & Plan (07/18/2022 10:41 AM EDT): In light of patient's condition (patient looks in respiratory distress, O2 sat good but RR about 32) I decided to call ambulance and refer patient back to emergency room for further evaluation and Management I will get notes from supervisor order takers and contact their office inquiring about sleep studies, CPAP and home oxygen (last notes form the hospital 04/2022 patient did not qualified for home oxygen) Witnessed episode of apnea 05/23/2022 Assessment & Plan (05/23/2022 2:40 PM EDT): I ordered sleep studies, patient with apnea episodes and fatigue sleepiness during there day hypersomnia Urge incontinence of urine 05/15/2022 S/P cardiac pacemaker procedure 05/15/2022 Assessment & Plan (09/18/2023 2:55 PM EDT): Continue to follow with cardiology Assessment & Plan (04/02/2023 1:44 PM EST): I will reach out to cardiology office to find out when is her appointment for evaluation of pacemaker Overactive bladder 05/15/2022 Multiple joint pain 05/15/2022 Migraine 05/15/2022 Low vision, both eyes 05/15/2022 Insomnia 05/15/2022 Infestation by Sarcoptes scabiei olimpia hominis Forgetfulness 05/15/2022 Assessment & Plan (07/19/2023 11:57 AM EDT): I referred her before to neurology, patient is not sure if she has follow up appointments Epidermoid cyst of skin 05/15/2022 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 05/22/2018 Nonrheumatic aortic valve stenosis 05/22/2018 Status post aortic valve replacement with porcin e valve 07/02/2017 Assessment & Plan (07/19/2023 11:59 AM EDT): Reading cardiology notes she is not complaint with appointments and for this reason procedure for her pacemaker has being delayed I will refer patient to care management Moderate asthma with acute exacerbation 05/31/19 Assessment & Plan (05/23/2022 2:39 PM EDT): I ordered for her today prednisone 60mg daily for 5 days +azythromycine 5 days, I refilled duoneb namrata for nbz at home and albuterol pump Q 4hrs If symptoms persists or worse I advise to go to hospital for inpatient treatment Cardiac pacemaker in situ 09/01/2016 Urinary incontinence 09/01/2016 History of hysterectomy for benign disease 09/01 History of aortic valve replacement 09/01/2016 Hypertension 02/26/1957 Assessment & Plan (01/14/2024 4:50 PM EST): I advise: - Aerobic exercise to reduce BP. Initial goal of 30 min walk 3-5x/week. Increase as tolerated. - low-sodium diet (goal: <2g/day) and heart healthy diet such as DASH to reduce BP and prevent ASCVD. - Home BP monitoring 1-2 x day with goal of <140/90. - Seek immediate medical attention for chest pain, palpitations, SOB, syncope, or sudden changes in mental status. - Do not change or discontinue current prescriptions without first consulting health care provider Assessment & Plan (06/01/2023 5:34 PM EDT): - low-sodium diet (goal: <2g/day) and heart healthy diet such as DASH to reduce BP and prevent ASCVD. - Home BP monitoring 1-2 x day with goal of <140/90. - Seek immediate medical attention for chest pain, palpitations, SOB, syncope, or sudden changes in mental status. - Do not change or discontinue current prescriptions without first consulting health care provider Assessment & Plan (04/02/2023 1:43 PM EST): Uncontrolled, patient clinically asymptomatic I added today amlodipine 5mg daily C/w hydrochlorothiazide 12.5mg daily I advise low Na diet RTC with nurse in 2 weeks for BP check Osteoarthritis 02/26/1957 Depressive disorder 02/26/1957 Resolved Problems Problem Noted Date Diagnosed Date Resolved Date Type 2 diabetes mellitus without complication 05/16/19 23 09/18/2023 Assessment & Plan (06/01/2023 5:34 PM EDT): Diabetes is: controlled - Lab Results Component Value Date HGBA1C 5.9 03/02/2023 HGBA1C 5.7 05/01/2022 HGBA1C 5.4 07/19/2021 - Lab Results Component Value Date CREATININE 0.64 03/14/2023 -Changes: none - Diabetic eye exam:up to date - Diabetic foot exam:pending - Continue lifestyle modifications - Continue current medications - Follow up: 3 months Assessment & Plan (04/02/2023 1:44 PM EST): - Lab Results Component Value Date HGBA1C 5.9 03/02/2023 HGBA1C 5.7 05/01/2022 HGBA1C 5.4 07/19/2021 - Lab Results Component Value Date CREATININE 0.64 03/14/2023 - Continue lifestyle modifications - Continue current medications Encounters Date Type Department Care Team Description 04/21/2024 Refill [facility] [address] [place] [address] Aisha Godinez DO Polyarthralgia 04/07/2024 Telephone [facility] [address] [place] [address] Ting Packer MD Nurse Triage 03/25/2024 Refill [facility] [address] [place] [address] Ting Packer MD Polyarthralgia 03/23/2024 Refill [facility] [address] [place] [address] Ting Packer MD Polyarthralgia 03/19/2024 Refill [facility] [address] [place] [address] Mariah Kraus RN Moderate persistent asthma with acute exacerbation 03/19/2024 Refill [facility] [address] [place] [address] Dara Ricardo MD Moderate persistent asthma with acute exacerbation 03/05/2024 Patient Outreach [facility] [address] [place] [address] Ting Packer MD Pre-visit Planning ([facility] screening completed on 05/24/2023) 02/29/2024 Telephone [facility] [address] [place] [phone] Ting Packer MD Medication Question 02/29/2024 Telephone [facility] [address] [place] [phone] Ting Packer MD 02/29/2024 Telephone [facility] [address] [place] [phone] Ting Packer MD telephone call 02/26/2024 Refill [facility] [address] [place] [address] Ting Packer MD Sleeping difficulty 02/24/2024 Refill [facility] [address] [place] [address] Ting Packer MD Multiple joint pain 02/21/2024 Refill [facility] [address] [place] [address] Dara Ricardo MD Moderate persistent asthma with acute exacerbation 02/11/2024 Refill [facility] [address] [place] [address] Ting Packer MD Moderate persistent asthma with acute exacerbation 02/11/2024 Telephone [facility] [address] [place] [phone] Ting Packer MD Medication Question 02/08/2024 3:40 PM EST Office Visit [facility] [address] [place] [address] Angie Russell MD COPD exacerbation ([facility]) (Primary Dx); Severe persistent asthma with (acute) exacerbation 02/08/2024 Telephone [facility] [address] [place] [phone] [address] [facility] intake (FYI:/Pt had prednisone Rx/ *Seen 01/31/[address] [facility]:/Received Rx for 60 mg prednisone x 5 days/ -60 mg x 5 days 01/14/24/-40 mg x 5 days 01/10/24/-40 mg x 5 days 12/25/23 /THIS PATIENT HAS MODERATELY SEVERE RESTRICTIVE LUNG DISORDER,/IT IS PARTLY CONTRIBUTED BY HER PREVIOUS STERNOTOMY AND HEALED SCAR FROM CARDIAC SURGER/// /) 02/06/2024 Telephone [facility] [address] [place] [phone] Ting Packer MD telephone call 01/31/2024 3:00 PM EST Office Visit [facility] [address], [place] [phone] Katie Robertson NP Shortness of breath (Primary Dx) 01/31/2024 Telephone [facility] [address] [place] [address] Alicia Gallardo RN 01/31/2024 Refill [facility] [address] [place] [address] Ting Packer MD COPD exacerbation ([facility]) 01/31/2024 Telephone [facility] [address] [place] [address] Ting Packer MD Med Refill 01/31/2024 Refill [facility] [address] [place] [address] Ting Packer MD Hypertension, unspecified type 01/30/2024 Telephone [facility] [address] [place] [address] Ting Packer MD Nurse Triage 01/29/2024 Refill [facility] [address] [place] [address] Ting Packer MD COPD exacerbation ([facility]) from Last 3 Months Immunizations Name Administration Dates Next Due Hep B, adult 06/12/2002,04/03/2002,10/07/2001 Influenza Whole 12/05/2007 Influenza injectable quadriv alent IIV4 with preservative 01/02/2017 Influenza injectable quadriv alent preservative free 01/25/2023 Influenza, IIV3, injectable 11/17/2010 Influenza, Injectable, MDCK, preservative free 03/02/2015 Influenza, Split (incl. nacho fied surface antigen) 11/12/2012,11/02/2011 Influenza, seasonal, injecta ble, preservative free 11/11/2023 Moderna Covid-19 Vaccine 12+ 06/08/2020,05/12/19 21 Pfizer Covid-19 Vaccine 12+ 01/25/2023 Pneumococcal Polysaccharide PPSV23 03/02/2015,,05/09/2002 TD (adult), 2 Lf tetanus tox oid, preservative free, adsorbed 10/10/2018,07/07/1997 Tdap 07/29/2010 Social History Tobacco Use Types Packs/Day Years Used Date Smoking Tobacco: Former Cigarettes Passive Smoke Exposure: Past Smokeless Tobacco: Never Tobacco Cessation:Counseling Given: Not Answered Alcohol Answer Date Recorded Frequency of Alcohol [...] Orientation Straight 12/26/2021 10 :14 AM EDT Last Filed Vital Signs Vital Sign Reading Time Taken Comments Blood Pressure 139/71 02/08/2024 3:39 PM EST Pulse 70 02/08/2024 3:39 PM EST Temperature 36.6 ??C (97.9 ??F) 02/08/2024 3:39 PM ES T Respiratory Rate 18 02/08/2024 3:39 PM EST Oxygen Saturation 98% 02/08/2024 3:39 PM EST Inhaled Oxygen Concentration - - Weight 65.3 kg (144 lb) 02/08/2024 3:39 PM EST Height 147.3 cm (4' 10 ) 01/14/2024 2:15 PM EST Body Mass Index 30.1 01/14/2024 2:15 PM EST Plan of Treatment Upcoming Encounters Date Type Department Care Team (Late st Contact Info) Description 05/01/2024 3:15 PM EST Office Visit [facility] [address] [place] [address] Ting Packer MD [address] [place] [address] Health Maintenance Due Date Last Done Comments CT Colonography 1962 FIT DNA/Cologuard 1962 FIT 1962 FOBT 1962 HIV Screening 1962 Sigmoidoscopy 1962 Diabetes: Foot Exam 1972 Eye Exam 1972 Hepatitis C Screening 1980 Hepatitis A Vaccines (1 of 2 - Risk 2-dose series) 1981 Pap Smear 12/13/1983 HPV/Cotest 1992 Zoster Vaccines (1 of 2) 2012 Pneumococcal Vaccine: 50+ Years (2 of 2 - PCV) 03/02/2016 03/02/2015, 09/30/2007, 05/09/2002 RSV Patients and Patients Aged 60 years or older (1 - Risk 60-74 years 1-dose series) 2022 Dental Oral Exam 02/10/2023 08/10/2022, 01/09/2017 Dental Prophylaxis 02/10/2023 08/10/2022 COVID-19 Vaccine ( season) 2023 01/25/2023, 06/08/2020, 05/11/2020 Diabetes: Hemoglobin A1C 12/19/20232 024, 03/02/2023, 05/01/2022, Additional history exists Mammogram 01/14/2024 01/13/2022, 12/27, 01/12/2020, Additional history exists Dental X-Ray: Bitewings 04/19/2024 04/18/2023 SDOH Screening 05/23/2024 05/24/2023 Alcohol/Substance Use Screening 09/17/2024 09/18/2023 Depression Screening 09/17/2024 09/18/2023, 09/18/19 24 Diabetes: Urine Protein Screening 01/13/2025 01/14/2024 Lipid Panel 01/13/2025 01/14/2024, 03/18/2020 Tobacco Screening 02/07/2025 02/08/2024 Dental X-Ray: Full Mouth 08/11/2025 08/10/2022, 12/27 Colonoscopy 01/16/2027 01/16/2017 Colorectal Cancer Screening 01/16/2027 DTaP/Tdap/Td Vaccines (3 - Td or Tdap) 10/10/2028 10/10/2018, 07/29/2010, 07/07/1997 Hepatitis B Vaccines Completed 06/12/2002, 04/03/2002, 10/07/2001 Influenza Vaccine Completed 11/11/2023, , 01/02/2017, Additional history exists Cervical Cancer Screening Discontinued HIB Vaccines Aged Out No longer eligi ble based on patient's age to complete this topic HPV Vaccines Aged Out No longer eligi ble based on patient's age to complete this topic IPV Vaccines Aged Out No longer eligi ble based on patient's age to complete this topic Meningococcal Vaccine Aged Out No crissy rajani eligible based on patient's age to complete this topic RSV under 20 months Aged Out No longe r eligible based on patient's age to complete this topic Rotavirus Vaccines Aged Out No longer eligible based on patient's age to complete this topic Procedures Procedure Name Priority Date/Time Associated Diagnosis Comments ALBUMIN, RANDOM URINE W/CREATININE Routine 01/14/2024 3:09 PM EST Prediabetes LIPID PANEL, STANDARD Routine 01/14/2024 3:09 PM EST Prediabetes POCT GLYCATED HEMOGLOBIN, TOTAL Routine 09/18/2023 1:59 PM EDT Prediabetes Full PROPHYLAXIS - ADULT Routine 08/10/2022 2:30 PM EDT PANORAMIC RADIOGRAPHIC IMAGE Routine 08/10/2022 2:30 PM EDT COMPREHENSIVE ORAL EVALUATION - NEW OR ESTABLISHED PATIENT Routine 08/10/2022 2:30 PM EDT MAMMOGRAM GENERIC Routine 01/13/2022 3:4 0 PM EST HM COLONOSCOPY Routine 01/16/2017 from Last 3 Months or Most Recently Relevant to Health Maintenance Results * (ABNORMAL) Albumin, Random Urine W/Creatinine (01/14/2024 3:09 PM EST) Creatinine, Urine 88.61 mg/dL [facility] Microalbumin Urine 28.0 mg/L H [facility] Microalbum Creatinine Ratio Ur 31.5(H) <30 ug/mg cr [facility] Comment:Albumin/Creatinine R atio Reference Ranges: Normal: < 30 ug/mg creatinine Microalbuminuria: 30 - 300 ug/mg creatinineClinical Albuminuria: > 300 ug/mg creatinine Urine (Urine, Random) 01/14/2024 3:09 PM EST 01/14/2024 3:59 PM EST us Ting Hampton MD LAB URINE ORDERABLES Final Result [facility] [address] [place] [phone] * (ABNORMAL) Lipid Panel, Standard (01/14/2024 3:09 PM EST) Triglycerides 113 <150 mg/dL [facility] Comment:Desirable Triglyceri de: less than 150 mg/dLBorderline High Triglyceride 150-199 mg/dLHigh Triglyceride: 200-499 mg/dLVery High Triglyceride: greater than or equal to 5OO mg/dL Cholesterol 213(H) <200 mg/dL [facility] Comment:Desirable Cholestero l: less than 200 mg/dLBorderline High Cholesterol: 200-239 mg/dLHigh Cholesterol: greater than 239 mg/dL LDL Cholesterol Calculated 96 <100 mg/dL [facility] Comment:Desirable LDL: less than 100 mg/dLNear Optimal/Above Optimal LDL: 110- 129 mg/dLBorderline High LDL: 130-159 mg/dLHigh LDL: 160-189 mg/dLVery High LDL: greater than or equal to 190 mg/dL HDL Cholesterol 95 >40 mg/dL [facility] Comment:Desirable HDL: great er than 40 mg/dL Note: This HDL assay may give artificially low results in patients with liver disease. Blood Venous blood specimen / Unknown 01/14/2024 3:09 PM EST 01/14/2024 3:58 PM EST Result [facility] Ting Hampton MD LAB BLOOD ORDERABLES Final Result [facility] [address] [place] [address] [phone] * POCT HGB A1C (09/18/2023 1:59 PM EDT) Hemoglobin A1C 5.8 4.0 - 6.0 % QC Media Lot # [id number] Lot# Expiration Date [id number] Blood 09/18/2023 1:59 PM EDT Result [facility] Ting Hampton MD POINT OF CARE TEST EN TER/EDIT ORDERABLES Final Result * Mammography Report 1 (01/13/2022 3:40 PM EST) Anatomical Region Laterality Modality Breast Bilateral Mammography 01/13/2022 3:40 PM EST Narrative 01/16/2022 1:42 PM EST Refer to the Notes tab for result details [facility] Procedure: Mammography Report 1 Procedure Note Provider, MD Jacob - 05/21/2022 Refer to the Notes tab for result details [facility] Procedure: Mammography Report 1 Ting Hampton MD IMG BI PROCEDURES Fin al Result * Hm Colonoscopy (01/16/2017) Result [facility] Jacob Provider HEALTH MAINTENANCE Final Result from Last 3 Months or Most Recently Relevant to Health Maintenance [email or web address] [employer] AD[employer] Care Teams Oil Lease Buyer Relationship Specialty Start Date End Date Ting Packer MD [address] [place] [address] PCP - General Family Medicine 02/13/19 Martha Mast Public Safety PoliceDetective And Intelligence Analyst 07/20/23
--- OUTSIDE RECORDS SUMMARY | 2024-04-28 17:58 | XMS_ITS | Encounter Summary ---
Author Organization [employer] Address [address] [facility] 7t [place] [address] Care Team Providers Care Needle Control Cheniller Name Role Phone Ting Packer MD Primary Care Provide r Reason for Visit * Reason Onset Date Comments Hospital Follow-up 10/31/2023 Encounter Details Date Type Department Care Team ([facility] st Contact Info) Description 10/31/2023 Telephone [facility] MEDICINE [address] [place], [place] [phone] Ting Packer MD [address] [place], [place] [phone] Hospital Follow-up Social History Tobacco Use Types [...] encounter Miscellaneous Notes * Telephone Encounter - Matthew No - 10/31/2023 2:13 PM EDT Tc from patient returning calling to schedule HDF appt documented in this encounter Plan of Treatment Upcoming Encounters Date Type Department Care Team (Late st Contact Info) Description 05/01/2024 3:15 PM EST Office Visit [facility] MEDICINE [address] [place] [address] Ting Packer MD [address] [place] [address] documented as of this encounter Visit Diagnoses Not on filedocumented in this encounter Additional Health Concerns Assessment Noted Time PHQ-9 Depression Total Score: 3 09/18/19 24 2:01 PM EDT documented as of this encounter Care Teams Needle Control Cheniller Relationship Specialty Start Date End Date Ting Packer MD [address] [place], [place] [phone] PCP - General Family Medicine 02/13/19 Martha Mast Lens SilvererBow Stapler 07/20/23 documented as of this encounter
--- OUTSIDE RECORDS SUMMARY | 2024-04-28 17:58 | XMS_ITS | Encounter Summary ---
Author Organization [employer] Address 75 [facility] 7t [place] [address] Care Team Providers Care Carpet Loom Fixer Name Role Phone Ting Packer MD Primary Care Provide r Reason for Visit * Reason Comments Med Refill Encounter Details Date Type Department Care Team ([facility] st Contact Info) Description 10/26/2023 Refill [facility] MEDICINE 230 [place], [place] [phone] Ting Packer MD 230 [place], [place] [phone] Moderate persistent asthma with acute exacerbation Social History Tobacco Use Types Packs/Day Years [...] enough money to get more: Never True 10/ Transportation Answer Date Recorded In the past [...] Description 05/01/2024 3:15 PM EST Office Visit [facility] MEDICINE [address] [place] [address] Ting Packer MD [address] [place] [address] documented as of this encounter Visit Diagnoses Diagnosis Moderate persistent asthma with acute exacerbation documented in this encounter Additional Health Concerns Assessment Noted Time PHQ-9 Depression Total Score: 3 09/18/19 24 2:01 PM EDT documented as of this encounter Care Teams Carpet Loom Fixer Relationship Specialty Start Date End Date Ting Packer MD [address] [place] [address] PCP - General Family Medicine 02/13/19 Martha Mast [facility] SpecialistSenior Planning Analyst 07/20/23 documented as of this encounter
--- OUTSIDE RECORDS SUMMARY | 2024-04-28 17:58 | XMS_ITS | Encounter Summary ---
Author Organization [employer] Address [address] [facility] 7t [place] [address] Care Team Providers Care Search Strategist Name Role Phone Ting Packer MD Primary Care Provide r Reason for Visit * Reason Onset Date Comments HDF 11/13/2023 Encounter Details Date Type Department Care Team ([facility] st Contact Info) Description 11/13/[address] [facility] MEDICINE 230 [place], [place] [phone] Ting Packer MD [address] [place], [place] [phone] F Social History Tobacco Use Types Packs/Day Years [...] * Telephone Encounter - Isis Chandra - 11/13/2023 2:57 PM EDT 11/13/23 1001 Hospital Discharges and Admission for [facility] Type of Visit Hospital Admission Date of Admission/Visit 11/10/23 Date of Discharge 11/12/23 Facility [facility] Diagnosis Hypoxic respiratory failure Disposition Discharged Home Follow-Up Actions Follow-Up Needed Provider appointment Follow-Up Outcome Left Voicemail Initial Contact Date 11/13/23 CC Sergey Cortez placed outbound call to patient for HDF outreach. CC placing call to offer patient with an HDF appointment with provider. No answer at this time. Patient's name and were not confirmed. CC left detailed message educating patient on importance of following up with provider followingan inpatient admission. Provided contact information requesting a call back in order to schedule the HDF appointment. Patient educated via voicemail on extended clinic hours on Mondays and Wednesdays, and Walk-In Urgent Care Located in [facility] of [facility]. Patient provided with after-hours line for [facility], , which offer night time triage service and option to transfer to power tong operator provider if needed. CC will request Discharge summaries to scan into chart. CC will place additional outreach call within 2-5 business days. Tc from pt brother returning phone call documented in this encounter Plan of Treatment Upcoming Encounters Date Type Department Care Team (Late st Contact Info) Description 05/01/2024 3:15 PM EST Office Visit [facility] MEDICINE [address] [place] [address] Ting Packer MD [address] [place] [address] documented as of this encounter Visit Diagnoses Not on filedocumented in this encounter Additional Health Concerns Assessment Noted Time PHQ-9 Depression Total Score: 3 09/18/19 24 2:01 PM EDT documented as of this encounter Care Teams Search Strategist Relationship Specialty Start Date End Date Ting Packer MD [address] [place] [address] PCP - General Family Medicine 02/13/19 Martha Mast Roll ReclaimerTank Crewmember 07/20/23 documented as of this encounter
--- OUTSIDE RECORDS SUMMARY | 2024-04-28 17:58 | XMS_ITS | Encounter Summary ---
Author Organization [employer] Address [address] [facility] 7t [place] [address] Care Team Providers Care Certified Nursing Assistant Instructor Name Role Phone Ting Packer MD Primary Care Provide r Reason for Visit * Reason Comments Med Refill Encounter Details Date Type Department Care Team ([facility] st Contact Info) Description 01/31/2024 Refill [facility] MEDICINE 230 [place], [place] [phone] Ting Packer MD 230 [place], [place] [phone] COPD exacerbation (CMS/[facility]) Social History Tobacco Use Types Packs/Day Years [...] Description 05/01/2024 3:15 PM EST Office Visit [facility] MEDICINE [address] [place] [address] Ting Packer MD 230 [place] [address] documented as of this encounter Visit Diagnoses Diagnosis COPD exacerbation (CMS/[facility]) Obstructive chronic bronchitis with exacerbation documented in this encounter Additional Health Concerns Assessment Noted Time PHQ-9 Depression Total Score: 3 09/18/19 24 2:01 PM EDT documented as of this encounter Care Teams Certified Nursing Assistant Instructor Relationship Specialty Start Date End Date Ting Packer MD [address] [place] [address] PCP - General Family Medicine 02/13/19 Martha Mast Print CutterRefinish Technician 07/20/23 documented as of this encounter
--- OUTSIDE RECORDS SUMMARY | 2024-04-28 17:58 | XMS_ITS | Encounter Summary ---
Author Organization [employer] Address [address] [facility] 7t [place] [address] Care Team Providers Care Retail Chain Store Area Supervisor Name Role Phone Ting Packer MD Primary Care Provide r Reason for Visit * Reason Comments Med Refill Encounter Details Date Type Department Care Team ([facility] st Contact Info) Description 04/21/2024 Refill [facility] MEDICINE 230 [place], [place] [phone] Aisha Godinez DO 230 [place], [place] [phone] Polyarthralgia Social History Tobacco Use Types Packs/Day [...] Description 05/01/2024 3:15 PM EST Office Visit [facility] MEDICINE [address] [place] [address] Ting Packer MD [address] [place] [address] documented as of this encounter Visit Diagnoses Diagnosis Polyarthralgia Pain in joint, multiple sites documented in this encounter Additional Health Concerns Assessment Noted Time PHQ-9 Depression Total Score: 3 09/18/19 24 2:01 PM EDT documented as of this encounter Care Teams Retail Chain Store Area Supervisor Relationship Specialty Start Date End Date Ting Packer MD [address] [place] [address] PCP - General Family Medicine 02/13/19 Martha Mast Clinical Services AssistantPreparer 07/20/23 documented as of this encounter
--- OUTSIDE RECORDS SUMMARY | 2024-04-28 17:58 | XMS_ITS | Encounter Summary ---
Author Organization [employer] Address [address] [facility] 7t [place] [address] Care Team Providers Care Auctioneer Tobacco Name Role Phone Ting Packer MD Primary Care Provide r Reason for Visit * Reason Onset Date Comments Call Back Request 01/03/2023 Encounter Details Date Type Department Care Team ([facility] st Contact Info) Description 01/03/2023 Telephone [facility] MEDICINE 230 [place], [place] [phone] Ting Packer MD 230 [place], [place] [phone] Call Back Request Social History Tobacco Use Types Packs/Day Years [...] getting things needed for daily living? No 12/11/2022 Utilities Answer Date Recorded In the past [...] encounter Miscellaneous Notes * Telephone Encounter - Isabela Coronel - 01/03/2023 12:27 PM EST Tc from pt requesting a f/u appt with PCP documented in this encounter Plan of Treatment Upcoming Encounters Date Type Department Care Team (Late st Contact Info) Description 05/01/2024 3:15 PM EST Office Visit [facility] MEDICINE [address] [place] [address] Ting Packer MD [address] [place] [address] documented as of this encounter Visit Diagnoses Not on filedocumented in this encounter Additional Health Concerns Assessment Noted Time PHQ-9 Depression Total Score: 6 05/24/19 23 1:28 PM EDT documented as of this encounter Care Teams Auctioneer Tobacco Relationship Specialty Start Date End Date Ting Packer MD 230 [place] [address] PCP - General Family Medicine 02/13/19 Martha Mast Masking Machine OperatorQuality Manager 07/20/23 documented as of this encounter
--- OUTSIDE RECORDS SUMMARY | 2024-04-28 17:58 | XMS_ITS | Continuity of Care Document ---
Author Organization [facility] Cardiac Misty keshawn [address] [address]- Care Team Providers Care Cut Off Man Name Role Phone Joshua Hampton MD, Allyson Osman Primary Care Physici an Encounter [facility] Date(s): 03/05/24 - 04/04/24 [facility] Surgery [address] [place] [address] Drive [address] [place], [place] [address] Attending Physician: Rosina Bravo Admitting Physician: AdmtrRosina Referring Physician: Admtr [id number] Encounter Type: Triage Allergies, Adverse Reactions, Alerts Substance Criticality Severity Reaction Reaction Severity Status ciprofloxacin Active aspirin Active shellfish hives Active Immunizations Given and Recorded Vaccine Date Status Refusal Reason Influenza Inactive (IM) (oldterm) 1 12/05/07 Given Pneumococcal Vaccine (oldterm) 2 09/30/07 Given 1Admin Note: SANOFI PASTEUR 2Result Comment: [id number] Medications Advair Diskus 250 mcg-50 mcg inhalation [...] 1:25:00 PM EDT, Route to Pharmacy Electronically, [facility], 150, cm, 07/05/23 15:49:00 EDT, [...] NURSING HOME Outreach Member Role: PCP Address: [address] [place] [address] [address] [place] [address]- Telecom: Care Team Related Persons Name: SHAHAB HERCULES Name: ALLYSON MCKENNA Name: KIRA DOTSON Name: RISA DOTSON Insurance Providers Guarantor name: ALLYSON DOTSON Health Plan Information #: 1 Payer: [employer] Member Number: NA Policy Number: NA Group Number: [id number]
--- OUTSIDE RECORDS SUMMARY | 2024-04-28 17:58 | XMS_ITS | Encounter Summary ---
Author Organization [employer] Address 75 [facility] 7t [place] [address] Care Team Providers Care Loss Prevention Coordinator Name Role Phone Ting Packer MD Primary Care Provide r Reason for Visit * Reason Onset Date Comments [facility] 02/21/2023 Encounter Details Date Type Department Care Team ([facility] st Contact Info) Description 02/21/2023 Telephone [facility] MEDICINE 230 [place], [place] [phone] Ting Packer MD 230 [place], [place] [phone] [facility] Social History Tobacco Use Types Packs/Day Years [...] * Telephone Encounter - Isis Chandra - 02/21/2023 3:17 PM EST TC from pt requesting a call from provider or a nurse in regards to the [facility]. Pt states that since November 30, 2022 her CAUL DRESSER Has not been getting paid for his services and [facility] has advised pt that provider needs to filled out a Filled Authorization form in order for CAUL DRESSER to get paid and must be Submitted through [employer]. Please contact Pt @ [phone] documented in this encounter Plan of Treatment Upcoming Encounters Date Type Department Care Team (Late st Contact Info) Description 05/01/2024 3:15 PM EST Office Visit [facility] MEDICINE [address] [place] [address] Ting Packer MD 230 [place] [address] documented as of this encounter Visit Diagnoses Not on filedocumented in this encounter Additional Health Concerns Assessment Noted Time PHQ-9 Depression Total Score: 6 05/24/19 23 1:28 PM EDT documented as of this encounter Care Teams Loss Prevention Coordinator Relationship Specialty Start Date End Date Ting Packer MD [address] [place] [phone] PCP - General Family Medicine 02/13/19 Martha Mast Social Work CoordinatorSyrup Blender 07/20/23 documented as of this encounter
--- OUTSIDE RECORDS SUMMARY | 2024-04-28 17:58 | XMS_ITS | Encounter Summary ---
Author Organization [employer] Address 75 [facility] 7t [place] [address] Care Team Providers Care Cloth Layer Name Role Phone Ting Packer MD Primary Care Provide r Reason for Visit * Reason Comments Med Refill Encounter Details Date Type Department Care Team ([facility] st Contact Info) Description 02/21/2024 Refill [facility] MEDICINE 230 [place], [place] [phone] Dara Ricardo MD 230 [place], [place] [phone] Moderate persistent asthma with acute exacerbation Social [...] Description 05/01/2024 3:15 PM EST Office Visit [facility] MEDICINE [address] [place] [address] Ting Packer MD 230 [place] [address] documented as of this encounter Visit Diagnoses Diagnosis Moderate persistent asthma with acute exacerbation documented in this encounter Additional Health Concerns Assessment Noted Time PHQ-9 Depression Total Score: 3 09/18/19 24 2:01 PM EDT documented as of this encounter Care Teams Cloth Layer Relationship Specialty Start Date End Date Ting Packer MD [address] [place] [address] PCP - General Family Medicine 02/13/19 Martha Mast Orthopedic SurgeonJewelry Estimator 07/20/23 documented as of this encounter
--- OUTSIDE RECORDS SUMMARY | 2024-04-28 17:58 | XMS_ITS | Encounter Summary ---
Author Organization [employer] Address [address] [facility] 7t [place] [address] Care Team Providers Care Sand Drier Name Role Phone Ting Packer MD Primary Care Provide r Reason for Visit * Reason Comments Med Refill Encounter Details Date Type Department Care Team ([facility] st Contact Info) Description 01/29/2024 Refill [facility] MEDICINE 230 [place], [place] [phone] Ting Packer MD 230 [place], [place] [phone] COPD exacerbation (CMS/[facility]) Social History Tobacco Use Types Packs/Day Years [...] Description 05/01/2024 3:15 PM EST Office Visit [facility] MEDICINE [address] [place] [address] Ting Packer MD 230 [place] [address] documented as of this encounter Visit Diagnoses Diagnosis COPD exacerbation (CMS/[facility]) Obstructive chronic bronchitis with exacerbation documented in this encounter Additional Health Concerns Assessment Noted Time PHQ-9 Depression Total Score: 3 09/18/19 24 2:01 PM EDT documented as of this encounter Care Teams Sand Drier Relationship Specialty Start Date End Date Ting Packer MD [address] [place] [address] PCP - General Family Medicine 02/13/19 Martha Mast Contour GrinderTire Spotter 07/20/23 documented as of this encounter
== END 2024-04-28 15:42 | disposition home or self-care (01) ==
PROVIDERS: PCP Internal Medicine; Visit Provider Internal Medicine
DX: J44.9 Chronic obstructive pulmonary disease, unspecified (principal); J68.3 Other acute and subacute respiratory conditions due to chemicals, gases, fumes and vapors; G47.33 Obstructive sleep apnea (adult) (pediatric); Z99.89 Dependence on other enabling machines and devices; J98.4 Other disorders of lung; F17.200 Nicotine dependence, unspecified, uncomplicated
CPT/HCPCS: 99213

== ENCOUNTER → 2024-04-28 15:06 | Outpatient (BNVA) | payer MEDICAID, SELFPAY | PROVIDERS: PCP Internal Medicine; Visit Provider Internal Medicine | DX: J44.9 Chronic obstructive pulmonary disease, unspecified (principal); J98.4 Other disorders of lung; J68.3 Other acute and subacute respiratory conditions due to chemicals, gases, fumes and vapors; G47.33 Obstructive sleep apnea (adult) (pediatric); F17.210 Nicotine dependence, cigarettes, uncomplicated | CPT/HCPCS: 99212 ==

== ENCOUNTER 2024-06-17 13:47 | Outpatient (AMB) | payer MEDICAID, SELFPAY ==
[2024-06-17 14:26] VITALS: BP 138/70; PULSE 40; O2SAT 97
--- NOTE | 2024-06-17 14:26 | A.OFFVIS_ITS ---
Vital Signs 06/17/24 14:26 Height 4 ft 11 in BP 138/70 Blood Pressure Location Lt brachial Position Sitting Pulse 40 L Pulse Source Pulse Oximeter Pulse Oximetry (%) 97 Oxygen Delivery Method Room Air Intake Visit Reasons: Asthma Intake Note: pt is here for follow up and states her breathing is good, but she is having terrible pain in the hand for a few days. Expanded Function Dental Assistant Required: No Allergies latex [LATEX] Allergy (Severe, Verified 06/17/24 14:51) DIFFICULTY BREATHING aspirin [Aspirin] Allergy (Intermediate, Verified 06/17/24 14:51) ITCHING, itchiness ciprofloxacin [From CIPRO] Allergy (Intermediate, Verified 06/17/24 14:51) DIAPHORESIS/PURITIS Penicillins [PENICILLINS] Allergy (Unknown, Verified 06/17/24 14:51) UNKNOWN HEMALATHA Inhibitors [HEMALATHA INHIBITORS] Adverse Reaction (Intermediate, Verified 06/17/24 14:51) COUGH Medication List - Last Reconciled 06/17/24 by Wally Simpson MD acetaminophen ER 650 mg PO Q8H PRN albuterol sulfate 90 mcg/actuation (Ventolin HFA) 2 puffs inhalation Q4H PRN albuterol sulfate 2.5 mg inhalation Q4-6H PRN amitriptyline 25 mg PO BEDTIME amlodipine 5 mg PO DAILY bisacodyl 10 mg PO BEDTIME calcium carbonate-vitamin D3 600 mg-10 mcg (400 unit) 1 tab PO DAILY clopidogrel 75 mg PO DAILY cyanocobalamin (vitamin B-12) 1,000 mcg PO DAILY fluticasone propion-salmeterol 500-50 mcg/dose (Advair Diskus) 1 ea inhalation BID folic acid 1 mg PO DAILY gabapentin 100 mg PO TID hydrochlorothiazide 12.5 mg PO DAILY melatonin 5 mg PO BEDTIME PRN montelukast 10 mg PO BEDTIME prednisone 5 mg PO DAILY 30 days sertraline 50 mg PO DAILY tiotropium bromide (Spiriva with HandiHaler) 1 cap inhalation DAILY Do you need a note to return to daycare/school/sports/work: No HPI HPI Asthma: Details: [place]YS[place], COMES AFTER 6 WEEKS. HER BREATHING IS BETTER THAN BEFORE AND SHE HAS VERY LITTLE COUGH OR WHEEZING. SHE IS ON NUCALA INJECTIONS Q 4 WEEKS. TODAY SHE COMPLAINS OF LOT OF PAIN AND SWELLING OF THE LEFT HAND AND WRIST. SHE DOES NOT KNOW WHAT HAPPENED BUT MAY HAVE TWISTED HER HAND DURING SLEEP. HER MAIN ISSUE IS LOT OF PAIN IN THE HAND AND ARM. SHE HAS NO FEVER OR CHILLS. [facility] Medical History (Updated 06/17/24 @ 15:02 by Wally Simpson MD) Swelling of left wrist Eosinophilia Severe aortic stenosis COPD (chronic obstructive pulmonary disease) Pacemaker Asthma with exacerbation Smoking Restrictive airway disease MARY (obstructive sleep apnea) MARY on CPAP Reactive airways dysfunction syndrome Rheumatoid arthritis Fibromyalgia GERD (gastroesophageal reflux disease) MARY (obstructive sleep apnea) Aortic valve endocarditis COPD (chronic obstructive pulmonary disease) COPD exacerbation Overactive bladder Bronchitis Allergic rhinitis COPD (chronic obstructive pulmonary disease) Asthma Hx of cardiac pacemaker Hx of migraines Hx of coronary artery disease History of urinary incontinence Hx of essential hypertension History of depression Hx of drug abuse Hx of hyperlipidemia Hx of allergic rhinitis History of enuresis Hx of osteoarthritis Hx of pilonidal cyst Family history of GERD History of arthritis Hx of diabetes mellitus Surgical History History of surgical removal of pilonidal cyst Hx of bilateral cataract extraction Hx of colonoscopy History of cystoscopy History of hysterectomy Hx of aortic valve replacement Hx laparoscopic cholecystectomy History of epidermal inclusion cyst excision Social History Household Members: Family Household Members Other:: son Housing: Apartment Do you presently have visiting nurse or other home services: Yes (EQUITY SALES ASSISTANT everyday) Alcohol intake: never Comment: refusing alarms Patient Tobacco Use Status: Former Tobacco user Tobacco use type: Cigarette Cigarettes Per Day: 3 e-Cigarette/Vaping Use: Never Used Second Hand Smoke Exposure: No Substance Use Type: Former Substance User Advance Directives Date on File: 11/08/21 service: No Current occupational status: unemployed and disabled Review of Systems Const All systems reviewed & are unremarkable except as noted in HPI and below Eyes Reports no additional complaints ENT Reports nasal congestion (ON A DAILY BASIS) and Reports post nasal drip (OFF AND ON) Card Denies irregular heart rhythm and Denies leg edema Resp Reports as per HPI GI Reports no additional complaints Reports no additional complaints Musc Reports back pain and Reports arthralgias Skin/Breast Reports system reviewed and no additional complaints, except as documented Neuro Reports no additional complaints Psych Reports no additional complaints Endo Reports other (BEING TREATED FOR DIABETES MELLITUS) Physical Exam Vital Signs: Last Vital Signs Pulse 40 L 06/17/24 14:26 BP 138/70 06/17/24 14:26 Pulse Ox 97 06/17/24 14:26 Oxygen Delivery Method Room Air 06/17/24 14:26 Const General: comfortable (But slow and weak), no acute distress, alert and awake Orientation/consciousness: patient oriented x3 HEENT Head: Yes normal to inspection General nose exam: No nasal polyps present and No nasal discharge present Face and sinus: Yes sinuses nontender Mouth: oropharynx normal Throat: Yes posterior oropharynx normal Eyes General: appearance normal, both eyes and all related structures Neck Neck: Yes normal visual inspection, Yes no lymphadenopathy, Yes trachea midline and Yes no JVD Thyroid: Thyroid normal Chest Chest palpation & inspection: abnormal inspection of the chest (PATIENT HAS MIDLINE SCAR FROM PREVIOUS SURGERY), normal palpation of entire chest wall and no tenderness Resp Other: PERCUSSION NOTE RESONANT, BREATH SOUNDS ARE DISTANT, WITH PROLONGED EXPIRATORY PHASE. SHE DOES HAVE A FEW BILATERAL WHEEZES , BUT MUCH LESS THAN BEFORE . Cardio Palpation: normal PMI Rate: regular rate Rhythm: regular rhythm Heart sounds: no gallops and no murmurs Peripheral pulses: Peripheral pulses 2+ throughout GI Palpation (GI): Soft to palpation, nontender, No hepatosplenomegaly present and no masses Auscultation: normal bowel sounds Back/Spine/Pelvis Thoracic/Lumbar Spine: thoracic and lumbar spine normal to inspection Skin General skin exam: no rashes or lesions noted Neuro General: patient oriented x3 and no focal motor deficits Cranial nerves: Yes CN's II-XII intact bilaterally Extrem Other: HER LEFT HAND AND WRIST ARE SWOLLEN AND TENDER TO TOUCH. SUGGESTIVE OF AN ACUTE SPRAIN OR POSSIBLE CELLULITIS. General: Yes normal to inspection, Yes no clubbing, cyanosis or edema and Yes no calf tenderness Psych Appearance: grossly normal Speech and movement: Normal speech and movement present Assessment & Plan Assessment & Plan (1) Reactive airways dysfunction syndrome: Comment: THIS PATIENT HAS ASTHMA/COPD DISORDER, WITH FREQUENT BOUTS OF COUGH AND WHEEZING. CONTINUES TO HAVE COUGH ON TALKING OR ANY EXERTION AND ALSO CONTINUES TO HAVE BILATERAL WHEEZES. IS THE DEFINITELY IMPROVED SINCE SHE IS ON BIOLOGIC TREATMENT WITH NUCALA. Code(s): J68.3 - Other acute and subacute respiratory conditions due to chemicals, gases, fumes and vapors Category: Medical Plan: ADVISED TO CONTINUE PRESENT MEDICAL REGIMEN. CONTINUE NUCALA 100 MG SUBQ Q.4 WEEKS (2) COPD (chronic obstructive pulmonary disease): Comment: THIS PATIENT HAS CHRONIC OBSTRUCTIVE PULMONARY DISORDER, RELATED TO HER SMOKING SHE HAS HISTORY OF REPEATED ACUTE EXACERBATIONS AND FREQUENT HOSPITALIZATIONS. THIS PLUS EOSINOPHILIC BRONCHIAL ASTHMA , KEEPS ON GETTING WORSE. TODAY ON AUSCULTATION HER WHEEZING IS DEFINITELY LESS THAN BEFORE, AND I THINK SHE IS SOMEWHAT IMPROVED. THIS MAY BE DUE TO BIOLOGIC TREATMENT AND ALSO DUE TO PREDNISONE 5 MG DAILY. Code(s): J44.9 - Chronic obstructive pulmonary disease, unspecified Category: Medical Plan: AGAIN ADVISED TO CONTINUE PRESENT MEDICAL REGIMEN, UNDER REACTIVE AIRWAYS (3) Smoking: Comment: SHE HAS LONGSTANDING HISTORY OF SMOKING SHE HAS CUT DOWN THE SMOKING IN THE PAST FEW YEARS, STILL SMOKING ABOUT 3 CIGARETTES A DAY. HAS BEEN COUNSELED MANY TIMES TO STOP COMPLETELY. I THINK IT IS HER ANXIETY WHICH HE DRIVES HER TO SMOKE A FEW CIGARETTES EVERY DAY. Code(s): F17.200 - Nicotine dependence, unspecified, uncomplicated Category: Social Hx Plan: AGAIN ADVISE THAT SHE SHOULD QUIT COMPLETELY. (4) Allergic rhinitis: Comment: SHE HAS CHRONIC ALLERGIC RHINITIS WITH POSTNASAL DISCHARGE CONTRIBUTING TO HER COUGH. RELATIVELY CONTROLLED AT THIS TIME BUT SHE HAS TENDENCY TO HAVE RECURRENT EXACERBATIONS OF NASAL CONGESTION. Code(s): J30.9 - Allergic rhinitis, unspecified Category: Medical Plan: CONTINUE MONTELUKAST 10 MG DAILY. .CONTINUE BIOLOGIC TREATMENT. (5) Swelling of left wrist: Comment: TODAY SHE PRESENTS WITH SWELLING AND TENDERNESS OF THE LEFT HAND AND WRIST. SHE DOES NOT RECALL HAVING ANY INJURY BUT MAY HAVE TWISTED HER HAND DURING SLEEP. Code(s): M25.432 - Effusion, left wrist Category: Medical Plan: I ADVISED HER TO GO TO THE OFFICE OF PRIMARY CARE PHYSICIAN OR TO AN URGENT CARE CLINIC. SHE MAY NEED TO HAVE AN X-RAY , AND APPROPRIATE TREATMENT. Coding Level of Care Code Est Pt Level 4 (42619) Diagnoses Reactive airways dysfunction syndrome J68.3 COPD (chronic obstructive pulmonary disease) J44.9 Smoking F17.200 Allergic rhinitis J30.9 Swelling of left wrist M25.432
--- OUTSIDE RECORDS SUMMARY | 2024-06-17 16:28 | XMS_ITS | Encounter Summary ---
Author Organization [employer] Address [address] [facility] [address] [place] [address] Care Team Providers Care Job Interviewer Name Role Phone Ting Packer MD Primary Care Provide r Reason for Visit * Reason Comments Med Refill Encounter Details Date Type Department Care Team ([facility] st Contact Info) Description 03/23/2024 Refill [facility] MEDICINE [address] [place], [place] [phone] Ting Packer MD [address] [place], [place] [phone] Polyarthralgia Social History Tobacco Use Types Packs/Day [...] as of this encounter Plan of Treatment Not on file documented as of this encounter Visit Diagnoses Diagnosis Polyarthralgia Pain in joint, multiple sites documented in this encounter Additional Health Concerns Assessment Noted Time PHQ-9 Depression Total Score: 3 09/18/19 24 2:01 PM EDT documented as of this encounter Care Teams Job Interviewer Relationship Specialty Start Date End Date Ting Packer MD [address] [place] [address] PCP - General Family Medicine 02/13/19 Martha Mast Hay SorterSecondary Market Manager 07/20/23 documented as of this encounter
--- OUTSIDE RECORDS SUMMARY | 2024-06-17 16:28 | XMS_ITS | Encounter Summary ---
Author Organization [employer] Address [address] [facility] [address] [place] [address] Care Team Providers Care Patrol Agent Name Role Phone Ting Packer MD Primary Care Provide r Reason for Visit * Reason Onset Date Comments PT1 09/12/2023 Encounter Details Date Type Department Care Team ([facility] st Contact Info) Description 09/12/2023 Telephone [facility] MEDICINE [address] [place], [place] [phone] Ting Packer MD [address] [place], [place] [phone] PT1 Social History Tobacco Use Types Packs/Day [...] 09/12/2023 9:39 AM EDT Sandra with [employer] calling requesting PT1 Home Address verified: Y/N: Yes Provider name or facility name: [facility] Facility Address: [address] [place] [address] Escort needed: Y/N: Yes Do you have a wheelchair: Y/N: No If yes- Manual or electric: No Visits: All future Visits Sandra with [employer] calling requesting PT1 Home Address verified: Y/N: Yes Provider name or facility name: [facility] Facility Address: [address] [place] [address] Escort needed: Y/N: Yes Do you have a wheelchair: Y/N: No If yes- Manual or electric: No Visits: All future Visits documented in this encounter Plan of Treatment Not on file documented as of this encounter Visit Diagnoses Not on filedocumented in this encounter Additional Health Concerns Assessment Noted Time PHQ-9 Depression Total Score: 6 05/24/19 23 1:28 PM EDT documented as of this encounter Care Teams Patrol Agent Relationship Specialty Start Date End Date Ting Packer MD [address] [place] [address] PCP - General Family Medicine 02/13/19 Martha Mast FlarerService Superintendent 07/20/23 documented as of this encounter
--- OUTSIDE RECORDS SUMMARY | 2024-06-17 16:28 | XMS_ITS | Encounter Summary ---
Author Organization [employer] [facility] Address [address] [place] [address] [address] [place] [address] Care Team Providers Care Ambulatory Analyst Name Role Phone Ting Packer MD Primary Care Provide r Encounter Details Date Type Department Care Team (Late st Contact Info) Description 11/16/2022 Orders Only [facility] MEDICINE [address] [place], [place] [phone] Provider, MD Jacob Social History Tobacco Use Types Packs/Day Years [...] on file documented as of this encounter Procedures Procedure [...] documented as of this encounter Care Teams Ambulatory Analyst Relationship Specialty Start Date End Date Ting Packer MD [address] [place], [place] [phone] PCP - General Family Medicine 02/13/19 Martha Mast Carriage SetterFried Cake Maker 07/20/23 documented as of this encounter
--- OUTSIDE RECORDS SUMMARY | 2024-06-17 16:28 | XMS_ITS | Encounter Summary ---
Author Organization [employer] Address [address] [facility] [address] [place] [address] Care Team Providers Care Die Cutter Apprentice Name Role Phone Ting Packer MD Primary Care Provide r Reason for Visit * Reason Onset Date Comments Med Refill 01/31/2024 Encounter Details Date Type Department Care Team ([facility] st Contact Info) Description 01/31/2024 Telephone [facility] MEDICINE [address] [place], [place] [phone] Ting Packer MD [address] [place], [place] [phone] Med Refill Social History Tobacco Use Types [...] 20 MG tablet To be sent to: [facility] documented in this encounter Plan of Treatment Not on file documented as of this encounter Visit Diagnoses Not on filedocumented in this encounter Additional Health Concerns Assessment Noted Time PHQ-9 Depression Total Score: 3 09/18/19 24 2:01 PM EDT documented as of this encounter Care Teams Die Cutter Apprentice Relationship Specialty Start Date End Date Ting Packer MD [address] [place] [id number] PCP - General Family Medicine 02/13/19 Martha Mast Teachers' AssistantInternal Control Analyst 07/20/23 documented as of this encounter
--- OUTSIDE RECORDS SUMMARY | 2024-06-17 16:28 | XMS_ITS | Encounter Summary ---
Author Organization [employer] Address [address] [facility] [address] [place] [address] Care Team Providers Care Demurrage Worker Name Role Phone Ting Packer MD Primary Care Provide r Reason for Visit * Reason Comments Med Refill Encounter Details Date Type Department Care Team ([facility] st Contact Info) Description 06/08/[address] [facility] [address] [place], [place] [phone] Ting Packer MD [address] [place], [place] [phone] Social History Tobacco Use Types Packs/Day Years [...] documented as of this encounter Care Teams Demurrage Worker Relationship Specialty Start Date End Date Ting Packer MD [address] [place] [id number] PCP - General Family Medicine 02/13/19 Martha Mast Case Management AssociateCork Pressing Machine Operator 07/20/23 documented as of this encounter
--- OUTSIDE RECORDS SUMMARY | 2024-06-17 16:28 | XMS_ITS | Encounter Summary ---
Author Organization [employer] Address [address] [facility] [address] [place] [address] Care Team Providers Care Metal Cleaner Name Role Phone Ting Packer MD Primary Care Provide r Reason for Visit * Reason Onset Date Comments HDF 11/13/2023 Encounter Details Date Type Department Care Team ([facility] st Contact Info) Description 11/13/2023 Telephone [facility] MEDICINE [address] [place], [place] [phone] Ting Packer MD [address] [place], [place] [phone] F Social History Tobacco Use Types Packs/Day [...] 11/13/23 1001 Hospital Discharges and Admission for [facility] Type of Visit Hospital Admission Date of Admission/Visit 11/10/23 Date of Discharge 11/12/23 Facility [facility] Diagnosis Hypoxic respiratory failure Disposition Discharged Home [...] Wednesdays, and Walk-In Urgent Care Located in [facility] of [facility]. Patient provided with after-hours line for [facility], , which offer night time triage service and option to transfer to finance controller provider if needed. CC will request Discharge [...] documented as of this encounter Care Teams Metal Cleaner Relationship Specialty Start Date End Date Ting Packer MD [address] [place] [address] PCP - General Family Medicine 02/13/19 Martha Mast Clinical Trial ManagerFisher Reef Net 07/20/23 documented as of this encounter
--- OUTSIDE RECORDS SUMMARY | 2024-06-17 16:28 | XMS_ITS | Encounter Summary ---
Author Organization [employer] Address [address] [facility] [address] [place] [address] Care Team Providers Care Humanities Division Chair Name Role Phone Ting Packer MD Primary Care Provide r Reason for Visit * Reason Comments Med Refill Encounter Details Date Type Department Care Team ([facility] st Contact Info) Description 02/21/2024 Refill [facility] MEDICINE [address] [place], [place] [phone] Dara Ricardo MD [address] [place], [place] [phone] Moderate persistent asthma with acute exacerbation Social [...] documented as of this encounter Care Teams Humanities Division Chair Relationship Specialty Start Date End Date Ting Packer MD [address] [place] [address] PCP - General Family Medicine 02/13/19 Martha Mast Resource Management SpecialistVolunteer Coordinator 07/20/23 documented as of this encounter
--- OUTSIDE RECORDS SUMMARY | 2024-06-17 16:28 | XMS_ITS | Clinical Summary ---
Author Organization [employer] Address [address] [place] [address] 7t [place] [address] Care Team Providers Care Adjuster Leader Name Role Phone Ting Packer MD Primary [...] (four) hours if needed. 03/15/19 24 Active lidocaine (Lidoderm) 5 % patchIndications :Upper back pain Apply 1 patch topically Once per day. Remove & discard patch within 12 hours or as directed by MD. 30 patch 1 07/19/19 24 Active Fluticasone-Salm eterol 500-50 MCG/ACT aerosol powder Inhale 1 puff 2 times daily. 1 each 11 09/11/19 24 Active Ventolin HFA 108 (90 Base) MCG/ACT inhalerIndicatio ns:Severe persistent asthma with exacerbation INHALE 2 PUFFS BY MOUTH EVERY 4 HOURS NEEDED FOR WHEEZING 18 g 3 10/22/19 24 Active ipratropium-albu terol (Duo-Neb) 0.5-2.5 mg/3 [...] 4 days 10 tablet 02/08/20 24 Active melatonin 5 MG tabletIndication s:Sleeping difficulty TAKE 1 TABLET BY MOUTH AT BEDTIME NEEDED FOR SLEEP 90 tablet 1 02/26/20 24 Active bisacodyl (Bisacodyl EC) 5 MG EC tablet TAKE 2 TABLETS BY MOUTH EVERY DAY AT BEDTIME 180 tablet 1 05/23/19 25 Active Calcium Carb-Cholecalcif lg 600-10 MG-MCG tabletIndication s:Osteopenia, unspecified location TAKE 1 TABLET BY MOUTH EVERY MORNING 90 tablet 1 05/23/19 25 Active hydroCHLOROthiaz rey 12.5 MG tabletIndication s:Primary hypertension TAKE 1 TABLET BY MOUTH EVERY MORNING 90 tablet 1 05/23/19 25 Active montelukast (Singulair) 10 MG tabletIndication s:Primary hypertension TAKE 1 TABLET BY MOUTH EVERY EVENING 90 tablet 1 05/23/19 25 Active albuterol (2.5 MG/3ML) 0.083% nebulizer solutionIndicati ons:Moderate persistent asthma with acute exacerbation INHALE 1 AMPULE USING A NEBULIZER EVERY 4 TO 6 HOURS NEEDED FOR WHEEZING OR SHORTNESS OF BREATH 90 mL 1 06/07/19 25 Active acetaminophen (Tylenol 8 Hour) 650 MG ER tabletIndication s:Multiple joint pain TAKE 1 TABLET BY MOUTH EVERY 8 HOURS NEEDED FOR PAIN 30 tablet 1 06/11/19 25 Active gabapentin (Neurontin) 100 MG capsuleIndicatio ns:Polyarthralgi a TAKE 1 CAPSULE BY MOUTH THREE TIMES DAILY IN THE MORNING, EVENING, AND BEDTIME 90 capsule 06/11/19 25 Active tiotropium (Spiriva HandiHaler) 18 MCG inhalation capsule USE 1 CAPSULE FOR INHALATION ONCE A DAY DO NOT SWALLOW CAPSULE 30 capsule 06/12/19 25 Active tiotropium (Spiriva HandiHaler) 18 MCG inhalation capsule USE 1 CAPSULE FOR INHALATION ONCE A DAY. DO NOT SWALLOW CAPSULE. 30 capsule 07/19/19 025 Discontinued Calcium Carb-Cholecalcif lg 600-10 MG-MCG tabletIndication s:Osteopenia, unspecified location TAKE 1 TABLET BY MOUTH EVERY MORNING 90 tablet 1 12/03/19 24 025 Discontinued bisacodyl (Bisacodyl EC) 5 MG EC tablet TAKE 2 TABLETS BY MOUTH AT BEDTIME 180 tablet 1 12/03/19 24 025 Discontinued hydroCHLOROthiaz rey 12.5 MG tabletIndication s:Primary hypertension TAKE 1 TABLET BY MOUTH EVERY MORNING 90 tablet 1 12/03/19 24 025 Discontinued montelukast (Singulair) 10 MG tabletIndication s:Primary hypertension TAKE 1 TABLET BY MOUTH EVERY EVENING 90 tablet 1 12/03/19 24 025 Discontinued acetaminophen (Tylenol 8 Hour) 650 MG ER tabletIndication s:Multiple joint pain TAKE 1 TABLET BY MOUTH EVERY 8 HOURS NEEDED FOR PAIN 30 tablet 1 02/25/20 24 025 Discontinued albuterol (2.5 MG/3ML) 0.083% nebulizer solutionIndicati ons:Moderate persistent asthma with acute exacerbation INHALE 1 AMPULE USING A NEBULIZER EVERY 4 TO 6 HOURS NEEDED FOR WHEEZING OR SHORTNESS OF BREATH 90 mL 1 03/20/19 25 025 Discontinued gabapentin (Neurontin) 100 MG capsuleIndicatio ns:Polyarthralgi a TAKE 1 CAPSULE BY MOUTH THREE TIMES DAILY IN THE MORNING, EVENING, AND BEDTIME 90 capsule 04/22/19 25 025 Discontinued Hospital, Clinic, or Other Facility Administered Medication Ordered Dose Route Frequency Start Date End Date Status predniSONE (Deltasone) tablet 50 mgIndications:COPD exacerbation (CMS/HCC) 50 mg PO Daily 02/08/2024 Ac tive Active Problems Problem Noted Date Diagnosed Date Encounter for screening mamm ogram for malignant neoplasm of breast 05/01/2024 COPD exacerbation 12/25/2023 Assessment & Plan (01/14/2024 [...] Asthma-COPD overlap syndrome 09/18/2023 Assessment & Plan (05/01/2024 4:21 PM EST): Continue to follow-up closely by pulmonology do not miss any appointments or Nucala injections Assessment & Plan (01/14/2024 4:47 PM EST): C/w current medication regimen Continue to follow with specialist Assessment & Plan (09/18/2023 2:53 PM EDT): C/w advir, montelukast, tiotropium, albuterol PRN Continue to follow with pulmonology Prediabetes 09/18/2023 Assessment & Plan (05/01/2024 4:22 PM EST): Counseling about healthy diet, diabetic diet counseling Assessment & Plan (01/14/2024 4:50 PM EST): [...] and Management I will get notes from senior systems administrator and contact their office inquiring about sleep [...] olimpia hominis Forgetfulness 05/15/2022 Assessment & Plan (05/01/2024 4:22 PM EST): I will order TSH and B12 with folic acid test, patient will be contacted with results I will refer patient to neurology as per her request Assessment & Plan (07/19/2023 11:57 AM EDT): I referred her before to neurology, patient is not sure if she has follow up appointments Epidermoid cyst of skin 05/15/2022 Coronary artery disease of n ative artery of [place] heart with stable angina pectoris 05/22/2018 Nonrheumatic [...] replacement 09/01/2016 Hypertension 02/26/1957 Assessment & Plan (05/01/2024 4:22 PM EST): Blood pressure is slightly elevated today I advised low-sodium diet weight reduction Continue with same medications do not miss any dose Monitor blood pressure at home and log it and report back Assessment & Plan (01/14/2024 4:50 PM EST): [...] Encounters Date Type Department Care Team Description 06/11/2024 Refill [facility] [address] [place] [address] Ting Packer MD 06/09/2024 Refill [facility] [address] [place] [address] Ting Packer MD Polyarthralgia 06/08/2024 Refill [facility] [address] [place] [address] Ting Packer MD Multiple joint pain 06/05/2024 Refill [facility] [address] [place] [address] Ting Packer MD Moderate persistent asthma with acute exacerbation 05/22/2024 Refill [facility] [address] [place] [address] Ting Packer MD Osteopenia, unspecified location; Primary hypertension 05/09/2024 Population Health [facility] () Department [address] [place] [phone] Provider, Population Health Generic 05/02/2024 Telephone [facility] [address] [place] [address] Ting Packer MD Mammo Fax 05/01/2024 3:15 PM EST Office Visit [facility] [address] [place] [address] Ting Packer MD Primary hypertension (Primary Dx); Type 2 diabetes mellitus without complication, without long-term current use of insulin (CMS/HCC); Prediabetes; Forgetfulness; Asthma-COPD overlap syndrome (CMS/HCC); Encounter for screening mammogram for malignant neoplasm of breast; Encounter for immunization 05/01/2024 Travel 05/01/2024 Telephone [facility] [address] [place] [address] Ting Packer MD Appointment Request 04/30/2024 Telephone [facility] [address] [place] [address] Ting Packer MD Chart Prep 04/21/2024 Refill [facility] [address] [place] [address] Gretchen AishaDO Polyarthralgia 04/07/2024 Telephone [facility] [address] [place] [address] Ting Packer MD Nurse Triage 03/25/2024 Refill [facility] [address] [place] [address] Ting Packer MD Polyarthralgia 03/23/2024 Refill [facility] [address] [place] [address] Ting Packer MD Polyarthralgia 03/19/2024 Refill [facility] [address] [place] [address] Mariah Kraus RN Moderate persistent asthma with acute exacerbation 03/19/2024 Refill [facility] [address] [place] [address] Dara Ricardo MD Moderate persistent asthma with acute exacerbation from Last 3 Months Immunizations Name Administration [...] 21 Pfizer Covid-19 Vaccine 12+ 01/25/2023 Pneumococcal Conjugate PCV 20 05/01/2024 Pneumococcal Polysaccharide PPSV23 03/02/2015,,05/09/2002 TD (adult), 2 [...] Sign Reading Time Taken Comments Blood Pressure 144/89 05/01/2024 3:49 PM EST Pulse 62 05/01/2024 2:52 PM EST Temperature 36.3 ??C (97.4 ??F) 05/01/2024 2:52 PM ES T Respiratory Rate 20 05/01/2024 2:52 PM EST Oxygen Saturation 99% 05/01/2024 2:52 PM EST Inhaled Oxygen Concentration - - Weight 67.8 kg (149 lb 6.4 oz) 05/01/2024 2:52 P M EST Height 149.9 cm (4' 11 ) 05/01/2024 2:52 PM EST Body Mass Index 30.18 05/01/2024 2:52 PM EST Plan of Treatment Health Maintenance Due Date Last Done Comments CT Colonography 1962 FIT DNA/Cologuard 1962 FIT 1962 FOBT 1962 HIV Screening 1962 Sigmoidoscopy 1962 Diabetes: Foot Exam 1972 Eye Exam 1972 Hepatitis C Screening 1980 Pap Smear 12/13/1983 HPV/Cotest 1992 Zoster Vaccines (1 of 2) 2012 RSV Patients and Patients Aged 60 years or older (1 - Risk 60-74 years 1-dose series) 2022 Dental Oral Exam 02/10/2023 08/10/2022, 01/09/2017 Dental Prophylaxis 02/10/2023 08/10/2022 COVID-19 Vaccine ( season) 2023 01/25/2023, 06/08/2020, 05/11/2020 Mammogram 01/14/2024 01/13/2022, 12/27, 01/12/2020, Additional history exists Dental X-Ray: Bitewings 04/19/2024 04/18/2023 SDOH Screening 05/23/2024 05/24/2023 Alcohol/Substance Use Screening 09/17/2024 09/18/2023 Depression Screening 09/17/2024 09/18/2023, 09/18/19 24 Diabetes: Hemoglobin A1C 11/01/2024 025, 09/18/2023, 03/02/2023, Additional history exists Diabetes: Urine Protein Screening 01/13/2025 01/14/2024 Lipid Panel 01/13/2025 01/14/2024, 03/18/2020 Tobacco Screening 02/07/2025 02/08/2024 Dental X-Ray: Full Mouth 08/11/2025 08/10/2022, 12/27 Colonoscopy 01/16/2027 01/16/2017 Colorectal Cancer Screening 01/16/2027 DTaP/Tdap/Td Vaccines (3 - Td or Tdap) 10/10/2028 10/10/2018, 07/29/2010, 07/07/1997 Hepatitis B Vaccines Completed 06/12/2002, 04/03/2002, 10/07/2001 Influenza Vaccine Completed 11/11/2023, , 01/02/2017, Additional history exists Pneumococcal Vaccine: 50+ Years Completed 05/01/2024, 03/02/2015, 09/30/2007, Additional history exists Cervical Cancer Screening Discontinued HIB Vaccines Aged Out No longer eligi ble based on patient's age to complete this topic HPV Vaccines Aged Out No longer eligi ble based on patient's age to complete this topic Hepatitis A Vaccines Aged Out No long er eligible based on patient's age to complete [...] Procedure Name Priority Date/Time Associated Diagnosis Comments POCT GLYCATED HEMOGLOBIN, TOTAL Routine 05/01/2024 3:16 PM EST Type 2 diabetes mellitus without complication, without long-term current use of insulin ([facility]) POCT GLUCOSE Routine 05/01/2024 2:52 PM EST Type 2 diabetes mellitus without complication, without long-term current use of insulin ([facility]) ALBUMIN, RANDOM URINE W/CREATININE Routine 01/14/2024 3:09 PM EST Prediabetes LIPID PANEL, STANDARD Routine 01/14/2024 3:09 PM EST Prediabetes Full PROPHYLAXIS - ADULT Routine 08/10/2022 2:30 PM EDT PANORAMIC RADIOGRAPHIC IMAGE Routine 08/10/2022 2:30 PM EDT COMPREHENSIVE ORAL EVALUATION - NEW OR ESTABLISHED PATIENT Routine 08/10/2022 2:30 PM EDT MAMMOGRAM GENERIC Routine 01/13/2022 3:4 0 PM EST HM COLONOSCOPY Routine 01/16/2017 from Last 3 Months or Most Recently Relevant to Health Maintenance Results * POCT HGB A1C (05/01/2024 3:16 PM EST) Hemoglobin A1C 5.6 4.0 - 6.0 % QC Media Lot # [id number] Lot# Expiration Date Blood 05/01/2024 3:16 PM EST Ting Hampton MD POINT OF CARE TEST EN TER/EDIT ORDERABLES Final Result * POCT Glucose (05/01/2024 2:52 PM EST) Glucose Blood, POC 78 60 - 200 mg/dL QC Media Lot # [id number] Lot# Expiration Date 020 Blood Capillary blood specimen / Unknown 05/01/2024 2:52 PM EST Ting Hampton MD POINT OF CARE TEST EN TER/EDIT ORDERABLES Final Result * (ABNORMAL) Albumin, Random Urine W/Creatinine (01/14/2024 3:09 PM EST) Creatinine, Urine 88.61 mg/dL [facility] Microalbumin Urine 28.0 mg/L H [facility] Microalbum Creatinine Ratio Ur 31.5(H) <30 ug/mg cr [facility] Comment:Albumin/Creatinine R at Reference Ranges: Normal: < 30 ug/mg creatinine Microalbuminuria: 30 - 300 ug/mg creatinineClinical Albuminuria: > 300 ug/mg creatinine Urine (Urine, Random) 01/14/2024 3:09 PM EST 01/14/2024 3:59 PM EST us Ting Hampton MD LAB URINE ORDERABLES Final Result Performing Organization Address City/[facility]/ZIP Co de Phone Number [facility] [address] [place] [address] [phone] * (ABNORMAL) Lipid Panel, Standard (01/14/2024 3:09 PM EST) Triglycerides 113 <150 mg/dL [facility] Comment:Desirable Triglyceri de: less than 150 mg/dLBorderline High Triglyceride 150-199 mg/dLHigh Triglyceride: 200-499 mg/dLVery High Triglyceride: greater than or equal to 5OO mg/dL Cholesterol 213(H) <200 mg/dL [facility] Comment:Desirable Cholestero l: less than 200 mg/dLBorderline High Cholesterol: 200-239 mg/dLHigh Cholesterol: greater than 239 mg/dL LDL Cholesterol Calculated 96 <100 mg/dL [facility] Comment:Desirable LDL: less than 100 mg/dLNear Optimal/Above Optimal LDL: 110- 129 mg/dLBorderline High LDL: 130-159 mg/dLHigh LDL: 160-189 mg/dLVery High LDL: greater than or equal to 190 mg/dL HDL Cholesterol 95 >40 mg/dL [facility] Comment:Desirable HDL: great er than 40 mg/dL Note: This HDL assay may give artificially low results in patients with liver disease. Blood Venous blood specimen / Unknown 01/14/2024 3:09 PM EST 01/14/2024 3:58 PM EST us Ting Hampton MD LAB BLOOD ORDERABLES Final Result Performing Organization Address City/[facility]/ZIP Co de Phone Number [facility] [address] [place] [phone] [phone] * Mammography Report 1 (01/13/2022 3:40 PM EST) Anatomical Region Laterality Modality Breast Bilateral Mammography 01/13/2022 3:40 PM EST Narrative 01/16/2022 1:42 PM EST Refer to the Notes tab for result details [facility] Procedure: Mammography Report 1 Procedure Note Provider, Jacob, - 05/21/2022 Refer to the Notes tab for result details [facility] Procedure: Mammography Report 1 Ting Hampton MD IMG BI PROCEDURES Fin al Result * Hm Colonoscopy (01/16/2017) Historical Provider HEALTH MAINTENANCE Final Result from Last 3 Months or Most Recently Relevant to Health Maintenance Insurance [facility] C3 DENTAL-[facility] MEDICAID STAND ADULT Care Teams Adjuster Leader Relationship Specialty Start Date End Date Ting Packer MD [address] [place] [phone] PCP - General Family Medicine 02/13/19 Martha Mast Phlebotomy SupervisorClassifier Operator 07/20/23
--- OUTSIDE RECORDS SUMMARY | 2024-06-17 16:28 | XMS_ITS | Encounter Summary ---
Author Organization [employer] Address [address] [facility] 7t [place] [address] Care Team Providers Care Cat Scan Tech Name Role Phone Ting Packer MD Primary Care Provide r Reason for Visit * Reason Comments Med Refill Encounter Details Date Type Department Care Team ([facility] st Contact Info) Description 10/26/2023 Refill [facility] [address] [place], [place] [phone] Ting Packer MD [address] [place], [place] [phone] Moderate persistent asthma with acute exacerbation Social [...] documented as of this encounter Care Teams Cat Scan Tech Relationship Specialty Start Date End Date Tign Packer MD [address] [place] [address] PCP - General Family Medicine 02/13/19 Martha Mast Gynecological AssistantNetezza Architect 07/20/23 documented as of this encounter
--- OUTSIDE RECORDS SUMMARY | 2024-06-17 16:28 | XMS_ITS | Encounter Summary ---
Author Organization [email or web address] Address [address] [facility] 7t [place] [address] Care Team Providers Care Technical Writing Lead/Mgr Name Role Phone Ting Packer MD Primary Care Provide r Reason for Visit * Reason Onset Date Comments Appointment Request 05/01/2024 Encounter Details Date Type Department Care Team ([facility] st Contact Info) Description 05/01/2024 Telephone [facility] [address] [place], [place] [phone] Ting Packer MD [address] [place], [place] [phone] Appointment Request Social History Tobacco Use Types Packs/Day [...] encounter Miscellaneous Notes * Telephone Encounter - Mary Fowler - 05/01/2024 11:19 AM EST Tc from pt's [facility] DIRECTOR requesting reschedule 05/01 office visit appt, states can only on Mondays since ptdon't have transportation. [phone] [facility] DIRECTOR documented in this encounter Plan of Treatment Not on file documented as of this encounter Visit Diagnoses Not on filedocumented in this encounter Additional Health Concerns Assessment Noted Time PHQ-9 Depression Total Score: 3 09/18/19 24 2:01 PM EDT documented as of this encounter Care Teams Technical Writing Lead/Mgr Relationship Specialty Start Date End Date Ting Packer MD [address] [place] [phone] PCP - General Family Medicine 02/13/19 Martha Mast Inspection And Testing SupervisorFlat Hammerer 07/20/23 documented as of this encounter
--- OUTSIDE RECORDS SUMMARY | 2024-06-17 16:28 | XMS_ITS | Encounter Summary ---
Author Organization [employer] Address [address] [facility] 7t [place] [address] Care Team Providers Care Sewer Inspector Name Role Phone Ting Packer MD Primary Care Provide r Encounter Details Date Type Department Care Team (Late st Contact Info) Description 11/03/2022 Telephone [facility] [address] [place], [place] [phone] Ting Packer MD [address] [place], [place] [phone] Social History Tobacco Use Types Packs/Day Years [...] documented as of this encounter Care Teams Sewer Inspector Relationship Specialty Start Date End Date Ting Packer MD [address] [place], [place] [phone] PCP - General Family Medicine 02/13/19 Martha Mast Gas Plumbing InspectorLaborer Construction Or Leak Gang 07/20/23 documented as of this encounter
--- OUTSIDE RECORDS SUMMARY | 2024-06-17 16:28 | XMS_ITS | Encounter Summary ---
Author Organization [employer] Address [address] [facility] 7t [place] [address] Care Team Providers Care Substance Abuse Nurse Name Role Phone Ting Packer MD Primary Care Provide r Reason for Visit * Reason Onset Date Comments Call Back Request 01/03/2023 Encounter Details Date Type Department Care Team ([facility] st Contact Info) Description 01/03/2023 Telephone [facility] [address] [place], [place] [phone] Ting Packer MD [address] [place], [place] [phone] Call Back Request Social History Tobacco Use [...] documented as of this encounter Care Teams Substance Abuse Nurse Relationship Specialty Start Date End Date Ting Packer MD [address] [place] [phone] PCP - General Family Medicine 02/13/19 Martha Mast Sports Marketing InternshipLining Printer 07/20/23 documented as of this encounter
--- OUTSIDE RECORDS SUMMARY | 2024-06-17 16:28 | XMS_ITS | Encounter Summary ---
Author Organization [employer] Address [address] [facility] 7t [place] [address] Care Team Providers Care Document Imaging Manager Name Role Phone Ting Packer MD Primary Care Provide r Reason for Visit * Reason Onset Date Comments Hospital Follow-up 03/22/2023 Encounter Details Date Type Department Care Team ([facility] st Contact Info) Description 03/22/2023 Telephone [facility] [address] [place], [place] [phone] Ting Packer MD [address] [place], [place] [phone] Hospital Follow-up Social History Tobacco Use Types [...] PM EST Tc from pt requesting a O-RIDF appt. Hospital: [facility] Date of admission: [facility]: 03/14 [facility]:03/15 Discharge date: [facility]:03/15 [facility]: 03/17 Diagnosed: asthma and COPD Please contact pt at [phone] (Kazakh) documented in this encounter Plan of Treatment Not on file documented as of this encounter Visit Diagnoses Not on filedocumented in this encounter Additional Health Concerns Assessment Noted Time PHQ-9 Depression Total Score: 6 05/24/19 23 1:28 PM EDT documented as of this encounter Care Teams Document Imaging Manager Relationship Specialty Start Date End Date Ting Packer MD [address] [place] [address] PCP - General Family Medicine 02/13/19 Martha Mast Convertible Top InstallerColloid Mill Operator 07/20/23 documented as of this encounter
--- OUTSIDE RECORDS SUMMARY | 2024-06-17 16:28 | XMS_ITS | Encounter Summary ---
Author Organization [employer] Address [address] [facility] [address] [place] [address] Care Team Providers Care Pot Maker Name Role Phone Ting Packer MD Primary Care Provide r Encounter Details Date Type Department Care Team (Late st Contact Info) Description 09/12/2023 Telephone [facility] [address] [place], [place] [phone] Ting Packer MD [address] [place], [place] [phone] Social History Tobacco Use Types Packs/Day Years [...] documented as of this encounter Care Teams Pot Maker Relationship Specialty Start Date End Date Ting Packer MD [address] [place] [address] PCP - General Family Medicine 02/13/19 Martha Mast Drapery CounselorEvent Promotions Coordinator 07/20/23 documented as of this encounter
--- OUTSIDE RECORDS SUMMARY | 2024-06-17 16:28 | XMS_ITS | Encounter Summary ---
Author Organization [employer] Address [address] [facility] [address] [place] [address] Care Team Providers Care Corporate Communications Specialist Name Role Phone Ting Packer MD Primary Care Provide r Reason for Visit * Reason Onset Date Comments Hospital Follow-up 08/09/2023 Encounter Details Date Type Department Care Team ([facility] st Contact Info) Description 08/09/2023 Telephone [facility] [address] [place], [place] [phone] Ting Packer MD [address] [place], [place] [phone] Hospital Follow-up Social History Tobacco Use Types [...] from pt requesting a HDF appt. 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
--- OUTSIDE RECORDS SUMMARY | 2024-06-17 16:28 | XMS_ITS | Encounter Summary ---
Author Organization [employer] Address [address] [facility] 7[address] [place] [address] Care Team Providers Care Home Restoration Service Cleaner Name Role Phone Ting Packer MD Primary Care Provide r Reason for Visit * Reason Onset Date Comments [facility] 02/21/2023 Encounter Details Date Type Department Care Team ([facility] st Contact Info) Description 02/21/2023 Telephone [facility] MEDICINE [address] [place], [place] [phone] Ting Packer MD [address] [place], [place] [phone] [facility] Social History Tobacco Use Types [...] states that since November 30, 2022 her GRINDER LAP Has not been getting paid for his services and [facility] has advised pt that provider needs to filled out a Filled Authorization form in order for GRIND[employer] LAP to get paid and must be Submitted through [facility]. Please contact Pt @ [phone] documented in this encounter Plan of Treatment Not on file documented as of this encounter Visit Diagnoses Not on filedocumented in this encounter Additional Health Concerns Assessment Noted Time PHQ-9 Depression Total Score: 6 05/24/19 23 1:28 PM EDT documented as of this encounter Care Teams Home Restoration Service Cleaner Relationship Specialty Start Date End Date Ting Packer MD [address] [place] [address] PCP - General Family Medicine 02/13/19 Martha Mast Window And Door InstallerDemolition Engineer 07/20/23 documented as of this encounter
--- OUTSIDE RECORDS SUMMARY | 2024-06-17 16:28 | XMS_ITS | Encounter Summary ---
Author Organization [employer] Address [address] [facility] 7t [place] [address] Care Team Providers Care Flight Mechanic Name Role Phone Ting Packer MD Primary Care Provide r Reason for Visit * Reason Comments Med Refill Encounter Details Date Type Department Care Team ([facility] st Contact Info) Description 01/31/2024 Refill [facility] MEDICINE [address] [place], [place] [phone] Ting Packer MD [address] [place], [place] [phone] COPD exacerbation (CMS/FORMERLY [facility]) Social History Tobacco Use Types Packs/Day Years [...] encounter Visit Diagnoses Diagnosis COPD exacerbation (CMS/FORMERLY [facility]) Obstructive chronic bronchitis with exacerbation documented in this encounter Additional Health Concerns Assessment Noted Time PHQ-9 Depression Total Score: 3 09/18/19 24 2:01 PM EDT documented as of this encounter Care Teams Flight Mechanic Relationship Specialty Start Date End Date Ting Packer MD [address] [place] [address] PCP - General Family Medicine 02/13/19 Martha Mast Sand Car WorkerStranding Machine Operator Helper 07/20/23 documented as of this encounter
--- OUTSIDE RECORDS SUMMARY | 2024-06-17 16:28 | XMS_ITS | Encounter Summary ---
Author Organization [employer] Address [address] [facility] 7[address] [place] [address] Care Team Providers Care Top Dyeing Machine Tender Name Role Phone Ting Packer MD Primary Care Provide r Reason for Visit * Reason Onset Date Comments Hospital Follow-up 10/31/2023 Encounter Details Date Type Department Care Team ([facility] st Contact Info) Description 10/31/2023 Telephone [facility] MEDICINE [address] [place], [place] [phone] Ting Packer MD [address] [place], [place] [phone] Hospital Follow-up Social History Tobacco Use Types [...] documented as of this encounter Care Teams Top Dyeing Machine Tender Relationship Specialty Start Date End Date Ting Packer MD [address] [place] [address] PCP - General Family Medicine 02/13/19 Martha Mast Exhaust And Muffler RepairerIct Educator 07/20/23 documented as of this encounter
--- OUTSIDE RECORDS SUMMARY | 2024-06-17 16:28 | XMS_ITS | Encounter Summary ---
Author Organization [employer] Address [address] [facility] 7t [place] [address] Care Team Providers Care Family Physician Name Role Phone Ting Packer MD Primary Care Provide r Encounter Details Date Type Department Care Team (Late st Contact Info) Description 02/29/2024 Telephone [facility] MEDICINE [address] [place], [place] [phone] Ting Packer MD [address] [place], [place] [phone] Social History Tobacco Use Types Packs/Day Years [...] documented as of this encounter Care Teams Family Physician Relationship Specialty Start Date End Date Ting Packer MD [address] [place] [id number] PCP - General Family Medicine 02/13/19 Martha Mast Preparer Making DepartmentElevator Erector Helper 07/20/23 documented as of this encounter
--- OUTSIDE RECORDS SUMMARY | 2024-06-17 16:28 | XMS_ITS | Encounter Summary ---
Author Organization [employer] Address [address] [facility] 7t [place] [address] Care Team Providers Care Perch Machine Inspector Name Role Phone Ting Packer MD Primary Care Provide r Reason for Visit * Reason Comments Med Refill Encounter Details Date Type Department Care Team ([facility] st Contact Info) Description 09/17/2023 Refill [facility] MED & PEDS [address] [place], [place] [phone] Ting Packer MD [address] [place] [address] Sleeping difficulty Social History Tobacco Use Types [...] documented as of this encounter Care Teams Perch Machine Inspector Relationship Specialty Start Date End Date Ting Packer MD [address] [place] [address] PCP - General Family Medicine 02/13/19 Martha Mast Organizational Development ManagerSales Contractor 07/20/23 documented as of this encounter
--- OUTSIDE RECORDS SUMMARY | 2024-06-17 16:28 | XMS_ITS | Encounter Summary ---
Author Organization [employer] Address [address] [facility] 7t [place] [address] Care Team Providers Care Resin Remover Name Role Phone Ting Packer MD Primary Care Provide r Reason for Visit * Reason Comments Med Refill Encounter Details Date Type Department Care Team ([facility] st Contact Info) Description 01/29/2024 Refill [facility] MEDICINE [address] [place], [place] [phone] Ting Packer MD [address] [place], [place] [phone] COPD exacerbation (CMS/FORMERLY [facility]) Social History Tobacco Use Types Packs/Day Years [...] encounter Visit Diagnoses Diagnosis COPD exacerbation (CMS/FORMERLY [facility]) Obstructive chronic bronchitis with exacerbation documented in this encounter Additional Health Concerns Assessment Noted Time PHQ-9 Depression Total Score: 3 09/18/19 24 2:01 PM EDT documented as of this encounter Care Teams Resin Remover Relationship Specialty Start Date End Date Ting Packer MD [address] [place] [address] PCP - General Family Medicine 02/13/19 Martha Mast Waterproofing MixerDie Inspector 07/20/23 documented as of this encounter
== END 2024-06-17 14:55 | disposition home or self-care (01) ==
LOC: HO.HPS 13:48
PROVIDERS: PCP Internal Medicine; Visit Provider Internal Medicine
DX: J68.3 Other acute and subacute respiratory conditions due to chemicals, gases, fumes and vapors (principal); J44.9 Chronic obstructive pulmonary disease, unspecified; F17.200 Nicotine dependence, unspecified, uncomplicated; J30.9 Allergic rhinitis, unspecified; M25.432 Effusion, left wrist
CPT/HCPCS: 99214

== ENCOUNTER → 2024-06-17 13:47 | Outpatient (BNVA) | payer MEDICAID, SELFPAY | PROVIDERS: PCP Internal Medicine; Visit Provider Internal Medicine | DX: J44.9 Chronic obstructive pulmonary disease, unspecified (principal); J30.9 Allergic rhinitis, unspecified; J68.3 Other acute and subacute respiratory conditions due to chemicals, gases, fumes and vapors; M25.432 Effusion, left wrist; F17.210 Nicotine dependence, cigarettes, uncomplicated | CPT/HCPCS: 99212 ==

== ENCOUNTER → 2024-08-02 21:55 | Outpatient (BNV) | payer MEDICAID, SELFPAY | PROVIDERS: Emergency Provider Internal Medicine; Visit Provider Specialist | DX: R06.2 Wheezing (principal) | CPT/HCPCS: 71045 ==

== ENCOUNTER 2024-08-02 22:06 | Emergency (ER) | payer MEDICAID, SELFPAY ==
--- NOTE | ~2024-08-02 | XR_ITS ---
CLINICAL HISTORY: wheezing 1 view chest x-ray Comparison: None Findings: Heart size is enlarged. Single lead right sided ICD. Atherosclerotic vascular disease of the aortic arch. Previous sternotomy. Mild bilateral interstitial prominence. No consolidation, significant pleural effusion or pneumothorax. No acute fracture. IMPRESSION: 1. Mild cardiomegaly and mild interstitial thickening. Low-grade congestive heart failure not excluded. Correlate clinically. This document has been electronically signed by: Angeline Godinez MD on 08/02/2024 23:31:59
[2024-08-02 22:11] VITALS: BP 131/80; BP 132/74; PULSE 79; PULSE 82; RESP 17; TEMP 36.7; O2SAT 98; BMI 31.1
[2024-08-02 22:26] LABS: MANUAL DIFF FLAG NO
--- NOTE | 2024-08-02 22:28 | PC.NURSE ---
pt a&ox4, respirations even and unlabored, bilateral wheezing noted at this time. pt reports onset of shortness of breath, headache and back pain starting today. pt was given duo neb by ems with some good effect which pt is still noted to be wheezing. aware, rt called to bedside. pt 98% on room air, nsr on tele. 22g right hand.
[2024-08-02 22:37] LABS: Basophils Percent Auto 0.4 % (0-2); Eosinophils Absolute Auto 0.2 X10*3/uL (0.0-0.4); Eosinophils Percent Auto 2.3 % (0-4); Hematocrit 35.8 % (37.0-47.0); Hemoglobin 11.7 g/dl (12.0-16.0); Imm Gran Abs Auto 0.03 X10*3/uL (0.00-0.03); Imm Gran Pct Auto 0.4 % (0.0-0.4); Lymphocytes Absolute Auto 1.7 X10*3/uL (1.2-4.9); Lymphocytes Percent Auto 24.2 % (20-40); Mean Corpuscular HGB Conc 32.7 g/dl (31.0-35.0); Mean Corpuscular Hemoglobin 27.6 pg (27.0-33.0); Mean Corpuscular Volume 84.4 fL (80.0-98.0); Mean Platelet Volume 8.7 fL (9.4-12.3); Monocytes Absolute Auto 0.6 X10*3/uL (0.1-1.2); Monocytes Percent Auto 8.7 % (2-11); Neutrophils Absolute Auto 4.4 x10*3/uL (2.0-8.3); Platelet Count 459 X10*3/uL (160-400); Red Blood Count 4.24 X10*6/uL (4.20-5.50); Red Cell Distribution Width 12.7 % (11.0-16.0); White Blood Count 6.9 X10*3/uL (4.8-10.8)
[2024-08-02 22:41] VITALS: PULSE 87; RESP 22; O2SAT 98
[2024-08-02 22:41] LABS: Alanine Aminotransferase 16 U/L (0-31); Albumin Level 3.7 g/dL (3.5-5.0); Alkaline Phosphatase 77 U/L (39-117); Anion Gap 10 (12-20); Aspartate Amino Transferase 33 U/L (5-31); Bilirubin Total 0.2 mg/dL (0.0-1.0); Blood Urea Nitrogen 16 mg/dL (9-16); Calcium 9.5 mg/dL (8.4-10.2); Carbon Dioxide 28 mmol/L (22-29); Chloride 104 mmol/L (96-108); Creatinine Clr Calc Pharmacy 45.6; Estimated Glomerular Filt Rate 48; Glucose Random 128 mg/dL (60-115); Lipase 16 U/L (8-78); Potassium 3.7 mmol/L (3.3-5.1); Sodium 138 mmol/L (135-145); Total Protein 7.4 g/dL (6.5-8.0)
[2024-08-02 22:49] LABS: Troponin-I High Sensitivity 5.8 ng/L (<3.5-17.0)
[2024-08-02] MEDS: Albuterol Sulfate 7.5 MG, Albuterol Sulfate (0.083%) 2.5 MG 10 MG INHALE (22:53)
--- NOTE | 2024-08-02 22:59 | ED_ITS ---
HPI - SOB/Dyspnea General Chief Complaint: Dyspnea Stated Complaint: SOB PER EMS Time Seen by Provider: 08/02/24 22:23 Source: patient Mode of arrival: ambulatory Limitations: no limitations History of Present Illness ED Provider: HPI Narrative: Patient is 63 years old with a history of COPD and asthma with frequent hospitalization and flare-up on prednisone as needed also does have history of sleep apnea not able to use CPAP pressure ex smoker comes here for increased shortness a breath and wheezing for last few days patient also complaining of headache no nausea or vomiting Related Data Home Medications ?Medication ?Instructions ?Recorded ?Confirmed amitriptyline 25 mg tablet 25 mg PO BEDTIME 07/03/22 04/28/24 bisacodyl 5 mg tablet,delayed 10 mg PO BEDTIME 07/03/22 04/28/24 release calcium 600 mg (as 1 tab PO DAILY 07/03/22 04/28/24 carbonate)-vitamin D3 10 mcg (400 unit) tablet clopidogrel 75 mg tablet 75 mg PO DAILY 07/03/22 04/28/24 cyanocobalamin (vitamin B-12) 1,000 mcg PO DAILY 07/03/22 04/28/24 1,000 mcg tablet folic acid 1 mg tablet 1 mg PO DAILY 07/03/22 04/28/24 gabapentin 100 mg capsule 100 mg PO TID 07/03/22 04/28/24 hydrochlorothiazide 12.5 mg tablet 12.5 mg PO DAILY 07/03/22 04/28/24 montelukast 10 mg tablet 10 mg PO BEDTIME 07/03/22 04/28/24 sertraline 50 mg tablet 50 mg PO DAILY 07/03/22 04/28/24 melatonin 5 mg tablet 5 mg PO BEDTIME PRN insomnia 03/14/23 04/28/24 tiotropium bromide 18 mcg capsule 1 cap inhalation DAILY 03/14/23 04/28/24 with inhalation device (Spiriva with HandiHaler) albuterol sulfate 2.5 mg/3 mL 2.5 mg inhalation Q4-6H PRN 05/21/23 04/28/24 (0.083 %) solution for nebulization Shortness Of Breath/Wheezing albuterol sulfate 90 mcg/actuation 2 puff inhalation Q4H PRN Wheezing 05/21/23 04/28/24 aerosol inhaler (Ventolin HFA) amlodipine 5 mg tablet 5 mg PO DAILY 08/03/23 04/28/24 fluticasone 500 mcg-salmeterol 50 1 ea inhalation BID 10/18/23 04/28/24 mcg/dose blistr powdr for inhalation (Advair Diskus) Previous Rx's ?Medication ?Instructions ?Recorded acetaminophen 650 mg 650 mg PO Q8H PRN for pain #90 tabs 01/04/23 tablet,extended release prednisone 5 mg tablet 5 mg PO DAILY for asthma #30 tabs 06/30/24 tziwquvpii-fkiztzvdjkabo-nrttrpdl 1 tab PO Q6H PRN haeadace #20 tabs 08/03/24 50 mg-325 mg-40 mg tablet prednisone 20 mg tablet 40 mg (2 x 20 mg) PO DAILY #10 tabs 08/03/24 Allergies Allergy/AdvReac Type Severity Reaction Status Date / Time latex [LATEX] Allergy Severe DIFFICULTY Verified 08/02/24 22:19 BREATHING aspirin [Aspirin] Allergy Intermediate ITCHING, Verified 08/02/24 22:19 itchiness ciprofloxacin [From CIPRO] Allergy Intermediate DIAPHORESIS Verified 08/02/24 22:19 /PURITIS Penicillins [PENICILLINS] Allergy Unknown UNKNOWN Verified 08/02/24 22:19 HEMALATHA Inhibitors AdvReac Intermediate COUGH Verified 08/02/24 22:19 [HEMALATHA INHIBITORS] Review of Systems 2 Review of Systems: Yes all other systems are reviewed and are negative [facility] Past Medical History Medical History Swelling of left wrist Eosinophilia Severe aortic stenosis COPD (chronic obstructive pulmonary disease) Pacemaker Asthma with exacerbation Smoking Restrictive airway disease MARY (obstructive sleep apnea) MARY on CPAP Reactive airways dysfunction syndrome Rheumatoid arthritis Fibromyalgia GERD (gastroesophageal reflux disease) MARY (obstructive sleep apnea) Aortic valve endocarditis COPD (chronic obstructive pulmonary disease) COPD exacerbation Overactive bladder Bronchitis Allergic rhinitis COPD (chronic obstructive pulmonary disease) Asthma Hx of cardiac pacemaker Hx of migraines Hx of coronary artery disease History of urinary incontinence Hx of essential hypertension History of depression Hx of drug abuse Hx of hyperlipidemia Hx of allergic rhinitis History of enuresis Hx of osteoarthritis Hx of pilonidal cyst Family history of GERD History of arthritis Hx of diabetes mellitus Surgical History History of surgical removal of pilonidal cyst Hx of bilateral cataract extraction Hx of colonoscopy History of cystoscopy History of hysterectomy Hx of aortic valve replacement Hx laparoscopic cholecystectomy History of epidermal inclusion cyst excision Social History Social History Household Members: Family Household Members Other:: son Housing: Apartment Do you presently have visiting nurse or other home services: Yes (TEMPERATURE REGULATOR PYROMETER everyday) Alcohol intake: never Comment: refusing alarms Patient Tobacco Use Status: Former Tobacco user Tobacco use type: Cigarette Cigarettes Per Day: 3 Smoked in Last 30 Days: No e-Cigarette/Vaping Use: Never Used Second Hand Smoke Exposure: No Use of substances other than those prescribed or required for medical reasons: No Substance Use Type: Former Substance User Advance Directives: Yes Advance Directives on File: Yes Advance Directives Date on File: 11/08/21 Do you have a plan to hurt others: No Plan Patient : No service: No Current occupational status: unemployed and disabled Physical Exam 2 Vital Signs: Vital Signs: Last Vital Signs Temp 98.9 F 08/03/24 01:16 Pulse 84 08/03/24 01:16 Resp 20 08/03/24 01:16 BP 142/64 H 08/03/24 01:16 Pulse Ox 96 08/03/24 01:16 O2 Del Method Room Air 08/03/24 01:16 BMI result Body Mass Index 31.1 Appearance: Alert. Oriented X3. No acute distress. Eyes: PERRLA, No Nystagmus ENT: Pharynx normal. Oral Mucosa moist Neck: Normal inspection. Neck supple. CVS: Normal heart rate and rhythm. Pulses normal. Respiratory: No respiratory distress. Equal air entry bilateral, bilateral wheeze Abdomen: Soft and nontender. Bowel sounds are present, no mass palpable, no CVA tenderness Skin: Skin warm and dry. Normal skin color. Normal skin turgor. Extremities: No lower extremity edema. No calf tenderness Neuro: Oriented X 3. No motor deficit. No sensory deficit.No cerebellar signs , cranial nerves II-XII intact Medications Administered Discontinued Medications Generic Name Dose Route Start Last Admin Trade Name Freq PRN Reason Stop Dose Admin Acetaminophen/Butalbital/Caffeine 1 tab 08/02/24 23:10 08/02/24 23:20 Butalb/Acetamin/Caff 50/325/40 Tablet PO 08/02/24 23:11 1 tab ONCE ONE Administration Albuterol Sulfate 7.5 mg/ 10 mg 08/02/24 22:41 08/02/24 22:53 Albuterol Sulfate 2.5 mg INHALE 08/02/24 22:42 10 mg ONCE ONE Administration Methylprednisolone Sodium Succinate 125 mg 08/02/24 23:10 08/02/24 23:20 Methylprednisolone Sod Succ 125 Mg Vial IVPUSH 08/02/24 23:11 125 mg ONCE ONE Administration Medical Decision Making Medical Decision Making [facility] Narrative: Patient with increased shortness of breath improved after nebulizing treatment workup is negative for acute patient felt much better after nebulizing treatment steroids discharge patient home Differential Diagnosis Differential Diagnoses: The differential diagnosis associated with the presentation includes COPD/asthma/pneumonia/viral Admission/Observation Consideration of admission/observation: Escalation of care including admission/observation considered Lab Data [facility] Lab Attestation statement: I reviewed the patient's lab results. 08/02/24 22:22 08/02/24 22:22 Labs: Lab Results 08/02/24 Range/Units 22:22 WBC 6.9 (4.8-10.8) X10*3/uL RBC 4.24 (4.20-5.50) X10*6/uL Hgb 11.7 L (12.0-16.0) g/dl Hct 35.8 L (37.0-47.0) % MCV 84.4 (80.0-98.0) fL MCH 27.6 (27.0-33.0) pg MCHC 32.7 (31.0-35.0) g/dl RDW 12.7 (11.0-16.0) % Plt Count 459 H D (160-400) X10*3/uL MPV 8.7 L (9.4-12.3) fL Immature Gran % (Auto) 0.4 (0.0-0.4) % Neut % (Auto) 64.0 (45-73) % Lymph % (Auto) 24.2 (20-40) % Beckham % (Auto) 8.7 (2-11) % Eos % (Auto) 2.3 (0-4) % Baso % (Auto) 0.4 (0-2) % Lymph # (Auto) 1.7 (1.2-4.9) X10*3/uL Beckham # (Auto) 0.6 (0.1-1.2) X10*3/uL Eos # (Auto) 0.2 (0.0-0.4) X10*3/uL Baso # (Auto) 0.0 (0.0-0.2) X10*3/uL Abs Immat Gran (auto) 0.03 (0.00-0.03) X10*3/uL Absolute Neuts (auto) 4.4 (2.0-8.3) x10*3/uL Absolute Nucleated RBC 0.000 (0.0-0.012) X10*3/uL Nucleated RBC % (auto) 0.0 (0.0-0.2) /100WBC Sodium 138 (135-145) mmol/L Potassium 3.7 (3.3-5.1) mmol/L Chloride 104 (96-108) mmol/L Carbon Dioxide 28 (22-29) mmol/L Anion Gap 10 L (12-20) BUN 16 (9-16) mg/dL Creatinine 1.15 (0.5-1.4) mg/dL Estim Creat Clear Calc 45.6 Estimated GFR 48 Random Glucose 128 H (60-115) mg/dL Calcium 9.5 D (8.4-10.2) mg/dL Magnesium 2.0 (1.6-2.6) mg/dL Total Bilirubin 0.2 (0.0-1.0) mg/dL AST 33 H (5-31) U/L ALT 16 (0-31) U/L Alkaline Phosphatase 77 (39-117) U/L Troponin I High Sens 5.8 (<3.5-17.0) ng/L B-Natriuretic Peptide 170 H (<100) pg/mL Total Protein 7.4 (6.5-8.0) g/dL Albumin 3.7 (3.5-5.0) g/dL Lipase 16 (8-78) U/L Influenza Type A (PCR) NEGATIVE (Negative) Influenza Type B (PCR) NEGATIVE (Negative) RSV RNA Qual (PCR) NEGATIVE (Negative) SARS-CoV-2 RNA (RT-PCR) NEGATIVE (Negative) Independent Interpretation I performed an independent interpretation of an: Plain X-Ray Discharge Plan Discharge Clinical Impression: COPD (chronic obstructive pulmonary disease), Headache Patient Disposition: Home, Self-Care Instructions: COPD (Chronic Obstructive Pulmonary Disease) (DC), General Headache (ED) Additional Instructions: Continue your inhaler Prednisone as prescribed Take Fioricet 1 tablet every 8 hours for headache Prescriptions: New prednisone 20 mg tablet 40 mg PO DAILY Qty: 10 0RF hkvlaqsbax-sxalgbffjqkjl-lwyd 50-325-40 mg tablet 1 tab PO Q6H PRN (Reason: haeadace) Qty: 20 0RF No Action acetaminophen 650 mg tablet extended release 650 mg PO Q8H PRN (Reason: for pain) Qty: 90 3RF prednisone 5 mg tablet 5 mg PO DAILY Qty: 30 1RF tiotropium bromide [Spiriva with HandiHaler] 18 mcg capsule, w/inhalation device 1 cap inhalation DAILY melatonin 5 mg tablet 5 mg PO BEDTIME PRN (Reason: insomnia) montelukast 10 mg tablet 10 mg PO BEDTIME bisacodyl 5 mg tablet,delayed release (DR/EC) 10 mg PO BEDTIME gabapentin 100 mg capsule 100 mg PO TID sertraline 50 mg tablet 50 mg PO DAILY calcium carbonate-vitamin D3 600 mg-10 mcg (400 unit) tablet 1 tab PO DAILY hydrochlorothiazide 12.5 mg tablet 12.5 mg PO DAILY clopidogrel 75 mg tablet 75 mg PO DAILY amitriptyline 25 mg tablet 25 mg PO BEDTIME folic acid 1 mg tablet 1 mg PO DAILY cyanocobalamin (vitamin B-12) 1,000 mcg tablet 1,000 mcg PO DAILY albuterol sulfate 2.5 mg /3 mL (0.083 %) solution for nebulization 2.5 mg inhalation Q4-6H PRN (Reason: Shortness Of Breath/Wheezing) albuterol sulfate [Ventolin HFA] 90 mcg/actuation Hfa Aerosol Inhaler 2 puff INHALATION Q4H PRN (Reason: Wheezing) amlodipine 5 mg tablet 5 mg PO DAILY fluticasone propion-salmeterol [Advair Diskus] 500-50 mcg/dose blister with device 1 ea INHALATION BID Interventions: ED Discharge Assessment Last Done: 08/03/24 01:16 Discharge Date/Time: 08/03/24 01:17 Print Language: Vincentian
[2024-08-02 23:04] LABS: Influenza A PCR NEGATIVE (Negative); Influenza B PCR NEGATIVE (Negative); Resp Syncy Virus RNA Qual PCR NEGATIVE (Negative); SARS COV2 PCR INHOUSE NEGATIVE (Negative)
--- OUTSIDE RECORDS SUMMARY | 2024-08-02 23:12 | XMS_ITS | Encounter Summary ---
Author Organization [employer] Address [address] [place] [address] 7t h Floor [place] [id number] Care Team Providers Care Cane Furniture Maker Name Role Phone Ting Packer MD Primary Care Provide r Encounter Details Date Type Department Care Team (Late Contact Info) Description 11/16/2022 Orders Only [facility] MED[facility]INE [address] [place] [phone] Provider, MD Jacob Social History Tobacco Use [...] Care Team (Late st Contact Info) Description 09/04/2024 3:30 PM EDT Office Visit [facility] [address] [place] [address] Ting Packer MD [address] [place] [address] 10/01/2024 3:00 PM EDT Office Visit [facility] OPTOM[facility] [address] [place] [address] Dain, Allison, OD [address] [place] [address] documented as of this encounter Procedures Procedure Name Priority Date/Time Associated Diagnosis Comments HM COLONOSCOPY Routine 01/16/2017 documented in this encounter Results * Hm Colonoscopy (01/16/2017) us Historical Provider HEALTH MAINTENANCE Final Result documented in this encounter Visit Diagnoses Not on filedocumented in this encounter Additional Health Concerns Assessment Noted Time PHQ-9 Depression Total Score: 6 05/24/19 23 1:28 PM EDT documented as of this encounter Care Teams Cane Furniture Maker Relationship Specialty Start Date End Date Ting Packer MD [address] [place] [address] PCP - General Family Medicine 02/13/19 Martha Mast Pvc LoaderEquipment Operator 07/20/23 documented as of this encounter
[2024-08-02] MEDS: Butalb/Acetamin/Caff 50/325/40 TABLET 1 TAB PO (23:20)
[2024-08-02 23:53] LABS: B Type Natriuretic Peptide 170 pg/mL (<100)
[2024-08-03 01:16] VITALS: BP 142/64; PULSE 84; RESP 20; TEMP 37.2; O2SAT 96
== END 2024-08-03 01:17 | disposition home or self-care (01) ==
PROVIDERS: Emergency Provider Internal Medicine
DX: J44.9 Chronic obstructive pulmonary disease, unspecified (principal); R51.9 Headache, unspecified; R06.02 Shortness of breath; R06.2 Wheezing; Z03.818 Encounter for observation for suspected exposure to other biological agents ruled out
CPT/HCPCS: 0241U; 71045; 80053; 83690; 83735; 83880; 84484; 85025; 94640; 96372; 99284; 99285; J2919

== ENCOUNTER 2024-08-11 14:01 | Outpatient (AMB) | payer MEDICAID, SELFPAY ==
--- NOTE | 2024-08-11 14:11 | MHC.OFFVIS ---
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 [employer] Services Required: No Allergies latex [LATEX] Allergy (Severe, Verified 08/11/24 14:34) DIFFICULTY BREATHING aspirin [Aspirin] Allergy (Intermediate, Verified 08/11/24 14:34) ITCHING, itchiness ciprofloxacin [From CIPRO] Allergy (Intermediate, Verified 08/11/24 14:34) DIAPHORESIS/PURITIS Penicillins [PENICILLINS] Allergy (Unknown, Verified 08/11/24 14:34) UNKNOWN HEMALATHA Inhibitors [HEMALATHA INHIBITORS] Adverse Reaction (Intermediate, Verified 08/11/24 14:34) COUGH Medication List - Last Reconciled 08/11/24 by Wally Simpson MD acetaminophen ER 650 mg PO Q8H PRN albuterol sulfate 90 mcg/actuation (Ventolin HFA) 2 puffs inhalation Q4H PRN albuterol sulfate 2.5 mg inhalation Q4-6H PRN amitriptyline 25 mg PO BEDTIME amlodipine 5 mg PO DAILY bisacodyl 10 mg PO BEDTIME khxjtzvqvs-lczgwpvcdtcuu-dxhq 50-325-40 mg 1 tab PO Q6H PRN calcium carbonate-vitamin D3 600 mg-10 mcg (400 unit) 1 tab PO DAILY clopidogrel 75 mg PO DAILY cyanocobalamin (vitamin B-12) 1,000 mcg PO DAILY fluticasone propion-salmeterol 500-50 mcg/dose (Advair Diskus) 1 ea inhalation BID folic acid 1 mg PO DAILY gabapentin 100 mg PO TID hydrochlorothiazide 12.5 mg PO DAILY melatonin 5 mg PO BEDTIME PRN montelukast 10 mg PO BEDTIME prednisone 40 mg (2 x 20 mg) PO DAILY prednisone 5 mg PO DAILY sertraline 50 mg PO DAILY tiotropium bromide (Spiriva with HandiHaler) 1 cap inhalation DAILY Do you need a note to return to daycare/school/sports/work: No HPI HPI Asthma: Details: 63 years old female, with longstanding history of bronchial asthma, COPD, reactive airways, was seen in the emergency room about 10 days ago with. Acute exacerbation She was given a short course of prednisone 20 mg b.i.d. for 5 days. Prior to that she also has been on a low dose prednisone, 5 mg a day for long time. She does not recall getting any acute respiratory infection. But she started having increased cough and wheezing almost continuously. Comes back today for follow-up and she still has very frequent bouts of cough. Any time she talks she starts having cough. Cough is mostly dry and she is not bringing up any phlegm. She does not have any fever or chills at this time. She is not able to carry on any conversation because she gets spells of cough when she is talking. [facility] Medical History Swelling of left wrist Eosinophilia Severe aortic stenosis COPD (chronic obstructive pulmonary disease) Pacemaker Asthma with exacerbation Smoking Restrictive airway disease MARY (obstructive sleep apnea) MARY on CPAP Reactive airways dysfunction syndrome Rheumatoid arthritis Fibromyalgia GERD (gastroesophageal reflux disease) MARY (obstructive sleep apnea) Aortic valve endocarditis COPD (chronic obstructive pulmonary disease) COPD exacerbation Overactive bladder Bronchitis Allergic rhinitis COPD (chronic obstructive pulmonary disease) Asthma Hx of cardiac pacemaker Hx of migraines Hx of coronary artery disease History of urinary incontinence Hx of essential hypertension History of depression Hx of drug abuse Hx of hyperlipidemia Hx of allergic rhinitis History of enuresis Hx of osteoarthritis Hx of pilonidal cyst Family history of GERD History of arthritis Hx of diabetes mellitus Surgical History History of surgical removal of pilonidal cyst Hx of bilateral cataract extraction Hx of colonoscopy History of cystoscopy History of hysterectomy Hx of aortic valve replacement Hx laparoscopic cholecystectomy History of epidermal inclusion cyst excision Social History Household Members: Family Household Members Other:: son Housing: Apartment Do you presently have visiting nurse or other home services: Yes ([employer] everyday) Alcohol intake: never Comment: refusing alarms Patient Tobacco Use Status: Former Tobacco user Tobacco use type: Cigarette Cigarettes Per Day: 3 e-Cigarette/Vaping Use: Never Used Second Hand Smoke Exposure: No Substance Use Type: Former Substance User Advance Directives Date on File: 11/08/21 service: No Current occupational status: unemployed and disabled Review of Systems Const All systems reviewed & are unremarkable except as noted in HPI and below Eyes Reports no additional complaints ENT Reports nasal congestion (ON A DAILY BASIS) and Reports post nasal drip (OFF AND ON) Card Denies irregular heart rhythm and Denies leg edema Resp Reports as per HPI GI Reports no additional complaints Reports no additional complaints Musc Reports back pain and Reports arthralgias Skin/Breast Reports system reviewed and no additional complaints, except as documented Neuro Reports no additional complaints Psych Reports no additional complaints Endo Reports other (BEING TREATED FOR DIABETES MELLITUS) Physical Exam Vital Signs: Last Vital Signs Pulse 44 L 08/11/24 14:12 BP 120/72 08/11/24 14:12 Pulse Ox 97 08/11/24 14:12 Oxygen Delivery Method Room Air 08/11/24 14:12 BMI result Body Mass Index 29.2 Const General: comfortable (But slow and weak), no acute distress, alert and awake Orientation/consciousness: patient oriented x3 HEENT Head: Yes normal to inspection General nose exam: No nasal polyps present and No nasal discharge present Face and sinus: Yes sinuses nontender Mouth: oropharynx normal Throat: Yes posterior oropharynx normal Eyes General: appearance normal, both eyes and all related structures Neck Neck: Yes normal visual inspection, Yes no lymphadenopathy, Yes trachea midline and Yes no JVD Thyroid: Thyroid normal Chest Chest palpation & inspection: abnormal inspection of the chest (PATIENT HAS MIDLINE SCAR FROM PREVIOUS SURGERY), normal palpation of entire chest wall and no tenderness Resp Other: PERCUSSION NOTE RESONANT, BREATH SOUNDS ARE DISTANT, WITH PROLONGED EXPIRATORY PHASE. SHE DOES HAVE A FEW BILATERAL WHEEZES , BUT MUCH LESS THAN BEFORE . Cardio Palpation: normal PMI Rate: regular rate Rhythm: regular rhythm Heart sounds: no gallops and no murmurs Peripheral pulses: Peripheral pulses 2+ throughout GI Palpation (GI): Soft to palpation, nontender, No hepatosplenomegaly present and no masses Auscultation: normal bowel sounds Back/Spine/Pelvis Thoracic/Lumbar Spine: thoracic and lumbar spine normal to inspection Skin General skin exam: no rashes or lesions noted Neuro General: patient oriented x3 and no focal motor deficits Cranial nerves: Yes CN's II-XII intact bilaterally Extrem Other: HER LEFT HAND AND WRIST ARE SWOLLEN AND TENDER TO TOUCH. SUGGESTIVE OF AN ACUTE SPRAIN OR POSSIBLE CELLULITIS. General: Yes normal to inspection, Yes no clubbing, cyanosis or edema and Yes no calf tenderness Psych Appearance: grossly normal Speech and movement: Normal speech and movement present Results Reviewed Results Reviewed: CHEST XRAY 08/02/24 1. Mild cardiomegaly and mild interstitial thickening. Low-grade congestive heart failure not excluded. Correlate clinically. This document has been electronically signed by: Angeline Godinez MD on 08/02/2024 23:31:59 Assessment & Plan Assessment & Plan (1) COPD (chronic obstructive pulmonary disease): Comment: THIS PATIENT HAS CHRONIC OBSTRUCTIVE PULMONARY DISORDER, RELATED TO HER SMOKING SHE HAS HISTORY OF REPEATED ACUTE EXACERBATIONS AND FREQUENT HOSPITALIZATIONS. THIS PLUS EOSINOPHILIC BRONCHIAL ASTHMA , KEEPS ON GETTING WORSE. TODAY ON AUSCULTATION SHE DOES HAVE CONTINUOUS INSPIRATORY AND EXPIRATORY WHEEZES. C/W LOW-GRADE ACUTE EXACERBATION OF ASTHMA/COPD Code(s): J44.9 - Chronic obstructive pulmonary disease, unspecified Category: Medical Plan: SHE IS ADVISED TO CONTINUE THE PRESENT REGIMEN, AND I THINK SHE NEEDS ORAL PREDNISONE FOR A FEW WEEKS, AT INCREASED O'S10 MG DAILY . (2) Reactive airways dysfunction syndrome: Comment: THIS PATIENT HAS ASTHMA/COPD DISORDER, WITH FREQUENT BOUTS OF COUGH AND WHEEZING. CONTINUES TO HAVE COUGH ON TALKING OR ANY EXERTION AND ALSO CONTINUES TO HAVE BILATERAL WHEEZES. SHE HAD IMPROVED WHEN SHE WAS ON THE BIOLOGIC TREATMENT Code(s): J68.3 - Other acute and subacute respiratory conditions due to chemicals, gases, fumes and vapors Category: Medical Plan: TREATMENT UNDER COPD (3) MARY (obstructive sleep apnea): Comment: PATIENT DOES HAVE HISTORY OF OBSTRUCTIVE SLEEP APNEA BUT SHE STOPPED USING CPAP MANY YEARS AGO. CLAIMS THAT AT THIS TIME SHE IS SLEEPING OKAY. Code(s): G47.33 - Obstructive sleep apnea (adult) (pediatric) Category: Medical Plan: PATIENT IS NOT ABLE TO TOLERATE THE CPAP SO SHE WILL HAVE TO BE TREATED CONSERVATIVELY. (4) Restrictive airway disease: Comment: THIS PATIENT HAS MODERATELY SEVERE RESTRICTIVE LUNG DISORDER, IT IS PARTLY CONTRIBUTED BY HER PREVIOUS STERNOTOMY AND HEALED SCAR FROM CARDIAC SURGERY Code(s): J98.4 - Other disorders of lung Category: Medical Plan: SHE IS ADVISED TO DO DEEP BREATHING EXERCISES IF SHE CAN (5) Smoking: Comment: SHE HAS LONGSTANDING HISTORY OF SMOKING SHE HAS CUT DOWN THE SMOKING IN THE PAST FEW YEARS, STILL SMOKING ABOUT 3 CIGARETTES A DAY. HAS BEEN COUNSELED MANY TIMES TO STOP COMPLETELY. I THINK IT IS HER ANXIETY WHICH DRIVES HER TO SMOKE A FEW CIGARETTES EVERY DAY. Code(s): F17.200 - Nicotine dependence, unspecified, uncomplicated Category: Social Hx Plan: AGAIN COUNSELED THAT SHE HAS TO STOP SMOKING COMPLETELY OTHERWISE SHE WILL CONTINUE TO HAVE FREQUENT COUGH AND WHEEZING Coding Level of Care Code Est Pt Level 4 (67366) Diagnoses COPD (chronic obstructive pulmonary disease) J44.9 Reactive airways dysfunction syndrome J68.3 MARY (obstructive sleep apnea) G47.33 Restrictive airway disease J98.4 Smoking F17.200
[2024-08-11 14:12] VITALS: BP 120/72; PULSE 44; O2SAT 97; BMI 29.2
--- NOTE | 2024-08-11 15:44 | A.OFFVIS_ITS ---
Vital Signs 08/11/24 14:12 Height 4 ft 11 in Weight 144 lb 6.444 oz BMI 29.2 BP 120/72 Blood Pressure Location Lt brachial Position Sitting Pulse 44 L Pulse Source Pulse Oximeter Pulse Oximetry (%) 97 Oxygen Delivery Method Room Air Intake Visit Reasons: Asthma Allergies latex [LATEX] Allergy (Severe, Verified 08/11/24 14:34) DIFFICULTY BREATHING aspirin [Aspirin] Allergy (Intermediate, Verified 08/11/24 14:34) ITCHING, itchiness ciprofloxacin [From CIPRO] Allergy (Intermediate, Verified 08/11/24 14:34) DIAPHORESIS/PURITIS Penicillins [PENICILLINS] Allergy (Unknown, Verified 08/11/24 14:34) UNKNOWN HEMALATHA Inhibitors [HEMALATHA INHIBITORS] Adverse Reaction (Intermediate, Verified 08/11/24 14:34) COUGH Medication List - Last Reconciled 08/11/24 by Wally Simpson MD acetaminophen ER 650 mg PO Q8H PRN albuterol sulfate 90 mcg/actuation (Ventolin HFA) 2 puffs inhalation Q4H PRN albuterol sulfate 2.5 mg inhalation Q4-6H PRN amitriptyline 25 mg PO BEDTIME amlodipine 5 mg PO DAILY bisacodyl 10 mg PO BEDTIME [id number]-ypzyzhmrtrwot-gobe 50-325-40 mg 1 tab PO Q6H PRN calcium carbonate-vitamin D3 600 mg-10 mcg (400 unit) 1 tab PO DAILY clopidogrel 75 mg PO DAILY cyanocobalamin (vitamin B-12) 1,000 mcg PO DAILY fluticasone propion-salmeterol 500-50 mcg/dose (Advair Diskus) 1 ea inhalation BID folic acid 1 mg PO DAILY gabapentin 100 mg PO TID hydrochlorothiazide 12.5 mg PO DAILY melatonin 5 mg PO BEDTIME PRN montelukast 10 mg PO BEDTIME prednisone 40 mg (2 x 20 mg) PO DAILY prednisone 5 mg PO DAILY sertraline 50 mg PO DAILY tiotropium bromide (Spiriva with HandiHaler) 1 cap inhalation DAILY PFSH Medical History Swelling of left wrist Eosinophilia Severe aortic stenosis COPD (chronic obstructive pulmonary disease) Pacemaker Asthma with exacerbation Smoking Restrictive airway disease MARY (obstructive sleep apnea) MARY on CPAP Reactive airways dysfunction syndrome Rheumatoid arthritis Fibromyalgia GERD (gastroesophageal reflux disease) MARY (obstructive sleep apnea) Aortic valve endocarditis COPD (chronic obstructive pulmonary disease) COPD exacerbation Overactive bladder Bronchitis Allergic rhinitis COPD (chronic obstructive pulmonary disease) Asthma Hx of cardiac pacemaker Hx of migraines Hx of coronary artery disease History of urinary incontinence Hx of essential hypertension History of depression Hx of drug abuse Hx of hyperlipidemia Hx of allergic rhinitis History of enuresis Hx of osteoarthritis Hx of pilonidal cyst Family history of GERD History of arthritis Hx of diabetes mellitus Surgical History History of surgical removal of pilonidal cyst Hx of bilateral cataract extraction Hx of colonoscopy History of cystoscopy History of hysterectomy Hx of aortic valve replacement Hx laparoscopic cholecystectomy History of epidermal inclusion cyst excision Social History Household Members: Family Household Members Other:: son Housing: Apartment Do you presently have visiting nurse or other home services: Yes ([employer] everyday) Alcohol intake: never Comment: refusing alarms Patient Tobacco Use Status: Former Tobacco user Tobacco use type: Cigarette Cigarettes Per Day: 3 e-Cigarette/Vaping Use: Never Used Second Hand Smoke Exposure: No Substance Use Type: Former Substance User Advance Directives Date on File: 11/08/21 service: No Current occupational status: unemployed and disabled Physical Exam Vital Signs: Last Vital Signs Pulse 44 L 08/11/24 14:12 BP 120/72 08/11/24 14:12 Pulse Ox 97 08/11/24 14:12 Oxygen Delivery Method Room Air 08/11/24 14:12 BMI result Body Mass Index 29.2 Assessment & Plan Assessment & Plan (1) COPD (chronic obstructive pulmonary disease): Comment: THIS PATIENT HAS CHRONIC OBSTRUCTIVE PULMONARY DISORDER, RELATED TO HER SMOKING SHE HAS HISTORY OF REPEATED ACUTE EXACERBATIONS AND FREQUENT HOSPITALIZATIONS. THIS PLUS EOSINOPHILIC BRONCHIAL ASTHMA , KEEPS ON GETTING WORSE. TODAY ON AUSCULTATION SHE DOES HAVE CONTINUOUS INSPIRATORY AND EXPIRATORY WHEEZES. C/W LOW-GRADE ACUTE EXACERBATION OF ASTHMA/COPD Code(s): J44.9 - Chronic obstructive pulmonary disease, unspecified Category: Medical (2) Reactive airways dysfunction syndrome: Comment: THIS PATIENT HAS ASTHMA/COPD DISORDER, WITH FREQUENT BOUTS OF COUGH AND WHEEZING. CONTINUES TO HAVE COUGH ON TALKING OR ANY EXERTION AND ALSO CONTINUES TO HAVE BILATERAL WHEEZES. SHE HAD IMPROVED WHEN SHE WAS ON THE BIOLOGIC TREATMENT Code(s): J68.3 - Other acute and subacute respiratory conditions due to chemicals, gases, fumes and vapors Category: Medical (3) MARY (obstructive sleep apnea): Comment: PATIENT DOES HAVE HISTORY OF OBSTRUCTIVE SLEEP APNEA BUT SHE STOPPED USING CPAP MANY YEARS AGO. CLAIMS THAT AT THIS TIME SHE IS SLEEPING OKAY. Code(s): G47.33 - Obstructive sleep apnea (adult) (pediatric) Category: Medical (4) Restrictive airway disease: Comment: THIS PATIENT HAS MODERATELY SEVERE RESTRICTIVE LUNG DISORDER, IT IS PARTLY CONTRIBUTED BY HER PREVIOUS STERNOTOMY AND HEALED SCAR FROM CARDIAC SURGERY Code(s): J98.4 - Other disorders of lung Category: Medical (5) Smoking: Comment: SHE HAS LONGSTANDING HISTORY OF SMOKING SHE HAS CUT DOWN THE SMOKING IN THE PAST FEW YEARS, STILL SMOKING ABOUT 3 CIGARETTES A DAY. HAS BEEN COUNSELED MANY TIMES TO STOP COMPLETELY. I THINK IT IS HER ANXIETY WHICH DRIVES HER TO SMOKE A FEW CIGARETTES EVERY DAY. Code(s): F17.200 - Nicotine dependence, unspecified, uncomplicated Category: Social Hx Coding Diagnoses COPD (chronic obstructive pulmonary disease) J44.9 Reactive airways dysfunction syndrome J68.3 MARY (obstructive sleep apnea) G47.33 Restrictive airway disease J98.4 Smoking F17.200
--- OUTSIDE RECORDS SUMMARY | 2024-08-11 15:44 | XMS_ITS ---
Author Organization [employer] Address [address] [place] [address] [address] [place] [address] Care Team Providers Care Wood Cut Engraver Name Role Phone Ting Packer MD Primary Care Provide r Fabian Perkins RN Unavailable [phone] Kelly Andres Unavailable CM Complex Status:Outreach In Progress (Enrolling) Start date:08/04/2024 Enrollment reason:ADT Feed Overview ED- Pt went to [facility] ED on 08/01/24. Case Team Name Relationship Phone Fabian Perkins RN(Responsible Staff) Registered Nima tran [phone] Continued Care and Services Coordination
== END 2024-08-11 14:31 | disposition home or self-care (01) ==
LOC: HO.HPS 14:02
PROVIDERS: PCP Internal Medicine; Visit Provider Internal Medicine
DX: J44.9 Chronic obstructive pulmonary disease, unspecified (principal); J68.3 Other acute and subacute respiratory conditions due to chemicals, gases, fumes and vapors; G47.33 Obstructive sleep apnea (adult) (pediatric); J98.4 Other disorders of lung; F17.200 Nicotine dependence, unspecified, uncomplicated
CPT/HCPCS: 99214

== ENCOUNTER → 2024-08-11 14:01 | Outpatient (BNVA) | payer MEDICAID, SELFPAY | PROVIDERS: PCP Internal Medicine; Visit Provider Internal Medicine | DX: G47.33 Obstructive sleep apnea (adult) (pediatric) (principal); J44.9 Chronic obstructive pulmonary disease, unspecified; J68.3 Other acute and subacute respiratory conditions due to chemicals, gases, fumes and vapors; J98.4 Other disorders of lung; F17.200 Nicotine dependence, unspecified, uncomplicated | CPT/HCPCS: 99212 ==

== ENCOUNTER 2024-08-29 21:25 | Inpatient (IN) | payer MEDICAID, SELFPAY ==
--- NOTE | ~2024-08-29 | XR_ITS ---
CLINICAL HISTORY: fall 5 view left knee Comparison: None provided Findings: No fractures or dislocations. There is chondrocalcinosis compatible with calcium pyrophosphate deposition disease. There is no joint space narrowing. No joint effusion. No radiopaque foreign body. IMPRESSION: There is chondrocalcinosis compatible with calcium pyrophosphate deposition disease. There is no joint space narrowing. This document has been electronically signed by: Kyree Santo MD on 08/31/2024 10:11:46
--- NOTE | ~2024-08-29 | XR_ITS ---
CLINICAL HISTORY: pain, fall PT NOT COOPERATING, BEST POSSIBLE IMAGES AT THIS TIME 3 views left foot Comparison: CR/SR - XR FOOT LT MIN 3V - 11/28/22 13:34 EDT Findings: There is no fracture or dislocation. Joint spaces appear normal. There is no radiopaque foreign body. Impression: Unremarkable left foot radiographs. This document has been electronically signed by: Brent Joshi MD on 08/30/2024 00:09:32
--- NOTE | ~2024-08-29 | NM_ITS ---
EXAMINATION: Ventilation/perfusion scan. CLINICAL INDICATION: Shortness of breath. Evaluate for PE. COMPARISON: Chest x-ray 08/29/2024 TECHNIQUE: Following intravenous administration of 4.0 mCi of 99m technetium MAA, imaging over chest was obtained in multiple projections. Ventilation study was not performed. Exam was performed on 08/30/2024 but was not read by [facility] teleradiology service FINDINGS: On perfusion exam there is normal flow seen through all segments of both lungs. There is a nonsegmental defect corresponding to horizontal markings likely skin folds in left mid and lower posterior hemithorax. These are faintly visualized on LPO view. No additional perfusion defects seen. Negative chest x-ray 08/29/2024. NM/NM pul perfusion IMPRESSION: Nonsegmental defects left mid and lower lobe likely multiple skin folds. Findings are suggestive of low probability for PE Electronically signed by: Braden Beebe MD 09/01/2024 08:26 AM EDT
--- NOTE | ~2024-08-29 | US_ITS ---
CLINICAL HISTORY: leg pain --- Additional Notes or Special Instructions: TO BE DONE IN AM PER PA Venous duplex ultrasound right lower extremity Comparison: None provided Findings: The visualized deep veins are fully compressible with normal Doppler color flow and spectral tracings. No popliteal cyst. IMPRESSION: 1. Negative for right lower extremity deep vein thrombosis. This document has been electronically signed by: Bear Nicolas MD on 08/30/2024 08:25:34
--- NOTE | ~2024-08-29 | CT_ITS ---
CLINICAL HISTORY: neck pain after fall CT cervical spine without contrast Comparison: None Findings: The alignment of the cervical spine is normal. There is no fracture. Disc heights are preserved. There are multiple small disc bulges with annular calcification. There is no evidence of significant central canal or neuroforaminal stenosis. Visualized soft tissues of the neck are unremarkable. IMPRESSION: No evidence of cervical spine injury. This document has been electronically signed by: Brent Joshi MD on 08/30/2024 00:55:17
--- NOTE | ~2024-08-29 | CT_ITS ---
CLINICAL HISTORY: fall, head injury CT head without contrast Comparison: None provided Findings: There is no acute intracranial hemorrhage. Ventricles are within normal limits in size. No mass effect or midline shift is present. The leavitt-white matter differentiation appears normal. There is mild generalized cerebral atrophy. The visualized portions of the orbits, paranasal sinuses, and mastoids are unremarkable. No fractures are identified. IMPRESSION: No acute intracranial abnormality. This document has been electronically signed by: Brent Joshi MD on 08/30/2024 00:54:05
--- NOTE | ~2024-08-29 | XR_ITS ---
CLINICAL HISTORY: chest pain PT NOT COOPERATING, BEST POSSIBLE IMAGES AT THIS TIME, PT REFUSED TO REMOVE BRA 2 view chest x-ray. Comparison: CR - XR CHEST 1V - 08/02/24 22:55 EDT Findings: The lungs appear clear. There is no consolidation, effusion, or pneumothorax. Mild enlargement of the cardiac silhouette appears stable. Patient is status post median sternotomy. Pacemaker lead is in the right ventricle. IMPRESSION: No acute cardiopulmonary abnormality. This document has been electronically signed by: Brent Joshi MD on 08/30/2024 00:14:03
--- NOTE | ~2024-08-29 | XR_ITS ---
CLINICAL HISTORY: pain, fall PT NOT COOPERATING, BEST POSSIBLE IMAGES AT THIS TIME, PT REFUSED TO REMOVE BRA 3 views right shoulder Comparison: None Findings: There is no fracture or dislocation. Glenohumeral and acromioclavicular joint spaces are within normal limits. Impression: Unremarkable right shoulder radiographs. This document has been electronically signed by: Brent Joshi MD on 08/30/2024 00:11:20
--- NOTE | ~2024-08-29 | US_ITS ---
CLINICAL HISTORY: concern for DVT --- Additional Notes or Special Instructions: TO BE DONE IN AM PER RN Venous duplex ultrasound left lower extremity Comparison: US - US VENOUS DUPLEX LE RT - 08/30/24 07:47 EDT Findings: The visualized deep veins are fully compressible with normal Doppler color flow and spectral tracings. No popliteal cyst. IMPRESSION: 1. Negative for left lower extremity deep vein thrombosis. This document has been electronically signed by: Kyree Santo MD on 08/31/2024 09:03:44
--- NOTE | ~2024-08-29 | XR_ITS ---
CLINICAL HISTORY: pain, fall PT NOT COOPERATING, BEST POSSIBLE IMAGES AT THIS TIME 4 views left knee Comparison: CR/SR - XR KNEE LT 4V - 12/11/22 18:39 EDT Findings: There is no fracture or dislocation. Joint spaces are preserved. Chondrocalcinosis of the menisci appears mildly increased. There is a small left knee effusion. Impression: Small left knee effusion. No acute osseous abnormality. This document has been electronically signed by: Brent Jsohi MD on 08/30/2024 00:11:06
--- NOTE | ~2024-08-29 | XR_ITS ---
CLINICAL HISTORY: fever unknown origin 2 view chest x-ray Comparison: CR - XR CHEST 2V - 08/29/24 23:42 EDT Findings: The lungs are clear. The patient is status post median sternotomy. A cardiac pacemaker is present. No acute fracture. IMPRESSION: 1. No acute findings. This document has been electronically signed by: Kyree Santo MD on 08/31/2024 10:11:23
--- NOTE | ~2024-08-29 | XR_ITS ---
CLINICAL HISTORY: fall 4 view right knee Comparison: 12/01/2021 Findings: Bones intact. No dislocations. There is chondrocalcinosis compatible with calcium pyrophosphate deposition disease. There is no significant joint space narrowing. No joint effusion. No radiopaque foreign body. IMPRESSION: There is chondrocalcinosis compatible with calcium pyrophosphate deposition disease. There is no significant joint space narrowing. This document has been electronically signed by: Kyree Santo MD on 08/31/2024 10:24:27
[2024-08-29 21:30] VITALS: BP 140/78; PULSE 66; O2SAT 94
[2024-08-29 21:36] VITALS: BP 133/81; PULSE 61; RESP 18; TEMP 36.4; O2SAT 98; BMI 25.8
--- NOTE | 2024-08-29 21:38 | ED.GENADULT ---
HPI - General Adult General Chief complaint: Neck Pain/Injury Stated complaint: L leg pain, R arm pain hx 2-3 days Time Seen by Provider: 08/29/24 21:37 History of Present Illness ED Provider: Valerie CARCAMO narrative: The patient is a 63-year-old female. She says that she has a history of a heart transplant. However review of old records indicates that she has a history of infective endocarditis of her aortic valve for which she underwent a valve replacement with a homograft by Dr. Myles Holguin at [facility] in 2004. She has also had a pacemaker for complete heart block. I do not believe she has had a heart transplant, I believe she had a aortic valve replacement. I find the patient a very poor historian, not just with regard to her history of a possible heart transplant. She is also a very poor historian with regard to the events leading to today's emergency room visit. The patient was interviewed with a spanish interpreter although the patient frequently tried to switch to [place] during the interview. As far as I can tell the patient has been having pain in her neck and her left knee and in her left foot and in her right for about a week. She has been using a cane to walk which is not usual for her. She may have had a fall prior to the onset of these pains but the patient is very vague and it is hard to tell if there was a fall. As far as I can tell her brother called an ambulance today to bring her to the hospital for evaluation of these pains. The patient says that she had a fall when the paramedics were taking her down the stairs. The paramedics do not report a fall. The paramedics had told the triage nurse that, while they were carrying the patient downstairs in a carry chair the patient became abruptly agitated and struggled with the seatbelts on the chair. The patient denies any fever, sweats, chills. The patient is normally followed by [facility]. Her last cardiology office appointment at [facility] was on 06/09/2024. At that point she had no particular complaints. The note indicates that she was supposed to be undergoing evaluation for a possible TAVR and, as of that visit she was scheduled to have an echo next month. As far as I can tell that echocardiogram has not taken place. I believe the concern is that she has developed bioprosthetic aortic stenosis following her surgery in 2004. Related Data Home Medications ?Medication ?Instructions ?Recorded ?Confirmed amitriptyline 25 mg tablet 25 mg PO BEDTIME 07/03/22 04/28/24 bisacodyl 5 mg tablet,delayed 10 mg PO BEDTIME 07/03/22 04/28/24 release calcium 600 mg (as 1 tab PO DAILY 07/03/22 04/28/24 carbonate)-vitamin D3 10 mcg (400 unit) tablet clopidogrel 75 mg tablet 75 mg PO DAILY 07/03/22 04/28/24 cyanocobalamin (vitamin B-12) 1,000 mcg PO DAILY 07/03/22 04/28/24 1,000 mcg tablet folic acid 1 mg tablet 1 mg PO DAILY 07/03/22 04/28/24 gabapentin 100 mg capsule 100 mg PO TID 07/03/22 04/28/24 hydrochlorothiazide 12.5 mg tablet 12.5 mg PO DAILY 07/03/22 04/28/24 montelukast 10 mg tablet 10 mg PO BEDTIME 07/03/22 04/28/24 sertraline 50 mg tablet 50 mg PO DAILY 07/03/22 04/28/24 melatonin 5 mg tablet 5 mg PO BEDTIME PRN insomnia 03/14/23 04/28/24 tiotropium bromide 18 mcg capsule 1 cap inhalation DAILY 03/14/23 04/28/24 with inhalation device (Spiriva with HandiHaler) albuterol sulfate 2.5 mg/3 mL 2.5 mg inhalation Q4-6H PRN 05/21/23 04/28/24 (0.083 %) solution for nebulization Shortness Of Breath/Wheezing albuterol sulfate 90 mcg/actuation 2 puff inhalation Q4H PRN Wheezing 05/21/23 04/28/24 aerosol inhaler (Ventolin HFA) amlodipine 5 mg tablet 5 mg PO DAILY 08/03/23 04/28/24 fluticasone 500 mcg-salmeterol 50 1 ea inhalation BID 10/18/23 04/28/24 mcg/dose blistr powdr for inhalation (Advair Diskus) Previous Rx's ?Medication ?Instructions ?Recorded acetaminophen 650 mg 650 mg PO Q8H PRN for pain #90 tabs 01/04/23 tablet,extended release prednisone 5 mg tablet 5 mg PO DAILY for asthma #30 tabs 06/30/24 wzczizxvva-heeelyhebrzkd-pzxknqvh 1 tab PO Q6H PRN haeadace #20 tabs 08/03/24 50 mg-325 mg-40 mg tablet prednisone 20 mg tablet 40 mg (2 x 20 mg) PO DAILY #10 tabs 08/03/24 Allergies Allergy/AdvReac Type Severity Reaction Status Date / Time latex (LATEX) Allergy Severe DIFFICULTY Verified 08/29/24 21:38 BREATHING aspirin (Aspirin) Allergy Intermediate ITCHING, Verified 08/29/24 21:38 itchiness ciprofloxacin (From CIPRO) Allergy Intermediate DIAPHORESIS Verified 08/29/24 21:38 /PURITIS Penicillins (PENICILLINS) Allergy Unknown UNKNOWN Verified 08/29/24 21:38 HEMALATHA Inhibitors (HEMALATHA AdvReac Intermediate COUGH Verified 08/29/24 21:38 INHIBITORS) Review of Systems Review of Systems: Yes all other systems are reviewed and are negative PMFSH Past Medical History Medical History Swelling of left wrist Eosinophilia Severe aortic stenosis COPD (chronic obstructive pulmonary disease) Pacemaker Asthma with exacerbation Smoking Restrictive airway disease MARY (obstructive sleep apnea) MARY on CPAP Reactive airways dysfunction syndrome Rheumatoid arthritis Fibromyalgia GERD (gastroesophageal reflux disease) MARY (obstructive sleep apnea) Aortic valve endocarditis COPD (chronic obstructive pulmonary disease) COPD exacerbation Overactive bladder Bronchitis Allergic rhinitis COPD (chronic obstructive pulmonary disease) Asthma Hx of cardiac pacemaker Hx of migraines Hx of coronary artery disease History of urinary incontinence Hx of essential hypertension History of depression Hx of drug abuse Hx of hyperlipidemia Hx of allergic rhinitis History of enuresis Hx of osteoarthritis Hx of pilonidal cyst Family history of GERD History of arthritis Hx of diabetes mellitus Surgical History History of surgical removal of pilonidal cyst Hx of bilateral cataract extraction Hx of colonoscopy History of cystoscopy History of hysterectomy Hx of aortic valve replacement Hx laparoscopic cholecystectomy History of epidermal inclusion cyst excision Social History Social History Household Members: Family Household Members Other:: son Housing: Apartment Do you presently have visiting nurse or other home services: Yes ([employer] everyday) Alcohol intake: never Comment: refusing alarms Patient Tobacco Use Status: Former Tobacco user Tobacco use type: Cigarette Cigarettes Per Day: 3 Smoked in Last 30 Days: No e-Cigarette/Vaping Use: Never Used Second Hand Smoke Exposure: No Use of substances other than those prescribed or required for medical reasons: No Substance Use Type: Former Substance User Advance Directives: Yes Advance Directives on File: Yes Advance Directives Date on File: 11/08/21 Do you have a plan to hurt others: No Plan service: No Current occupational status: unemployed and disabled Physical Exam ED Vital Signs: Vital Signs - 24 hr 08/29/24 21:36 08/29/24 22:15 08/30/24 00:01 Temperature 97.6 F 98.4 F 101.4 F H Pulse Rate 61 66 62 Respiratory Rate 18 18 12 Blood Pressure 133/81 106/66 122/65 Pulse Oximetry 98 99 99 Oxygen Delivery Method Room Air Room Air Room Air 08/30/24 02:53 Temperature 98.3 F Pulse Rate 60 Respiratory Rate 18 Blood Pressure 113/74 Pulse Oximetry 95 Oxygen Delivery Method Room Air BMI result Body Mass Index 25.8 Const Other: The patient is awake and alert. There was no obvious sign of trauma apparent. She was quite talkative. She did not seem in overt distress. HENMT Other: No obvious signs of trauma to the head or the face. No raccoon eyes. No mcneill sign. Mucous membranes are moist. The posterior pharynx is normal. Eyes Other: Pupils are round equal, conjunctivae are clear, extraocular movements intact Neck Other: The patient has posterior C-spine tenderness. No deformity. No step-off. Resp Effort & Inspection: normal respiratory effort Auscultation: clear to auscultation bilaterally Cardio Other: The patient has a regular rate and rhythm. She has a 3/6 systolic murmur. GI Other: Abdomen is soft and nontender Skin Other: No obvious abnormalities to the skin. No bruising. No soft tissue swelling. No signs of skin injury. Neuro Other: The patient is awake and alert with a normal mental status. Cranial nerves 2 through 12 are intact. She moves her extremities with what seems to be symmetrical strength although she seems to have pain in her left knee that limits movement of the left leg. The patient is a very poor historian. Extrem Other: No obvious objective abnormality to the appearance of the left leg either at the knee, the ankle, or the foot. The patient reports significant tenderness with general palpation of the left knee. No effusion appreciated. The patient seems to have pain with manipulation of the knee. The left foot seems well-perfused but is diffusely tender. No deformity or soft tissue swelling. Medications Administered Discontinued Medications Generic Name Dose Route Start Last Admin Trade Name Kiah PRN Reason Stop Dose Admin Acetaminophen 975 mg 08/29/24 23:08 08/30/24 00:06 Acetaminophen 325 Mg Tablet PO 08/29/24 23:09 975 mg ONCE ONE Administration Vancomycin HCl 1,000 mg/ 535 mls @ 267.5 mls/hr 08/30/24 02:48 08/30/24 07:00 Vancomycin HCl 750 mg/ Sodium IV 08/30/24 04:47 Infused Chloride ONCE ONE Infusion Cefepime HCl 2 gm in 50 mls @ 100 mls/hr 08/30/24 02:50 08/30/24 04:10 Maxipime IV 08/30/24 03:19 Infused ONCE ONE Infusion Morphine Sulfate 2 mg 08/30/24 03:57 08/30/24 04:04 Morphine Sulfate 2 Mg/Ml Cartridge IVPUSH 08/30/24 03:58 2 mg ONCE ONE Administration Protocol Medical Decision Making Medical Decision Making [facility] Narrative: The patient has evaluation was complicated largely because the patient is an extremely poor historian. This was the case even when interviewed with the in-person spanish interpreter. My ultimate impression is that the patient has not felt well for a few days and that an ambulance was called because she was not feeling well. The patient reports falling on the stairs with the paramedics but the paramedics report that there was no fall. The paramedics report that the patient seemed to have an episode of panic while being carried down in a chair. The patient initially denied any fevers. However when we checked a rectal temperature here her temperature was 101.4 degrees. She also has a heart murmur and a history of previous endocarditis 20 years ago with a bioprosthetic aortic valve. This would raise the concern about a possibility of endocarditis today. No obvious alternative explanation for her fever is apparent. Her abdomen is benign, her chest x-ray is clear, her urinalysis is negative. No sign of skin infection. However, potentially arguing against an acute infectious process is that the patient does not have a significant white blood count elevation and she does not have a left shift. Additionally she does not have an elevated procalcitonin. On the other hand she has a very high CRP. It may be possible that her fever, CRP, and diffuse joint pains, may all be related to something like an autoimmune process but I think the potential for endocarditis in his case still exists and therefore antibiotics were started after blood cultures were drawn and the patient will be admitted for further evaluation. Lab Data 08/29/24 23:02 08/29/24 23:02 Labs: Lab Results 08/29/24 08/30/24 08/30/24 Range/Units 23:02 01:54 03:33 WBC 10.9 H (4.8-10.8) X10*3/uL RBC 5.28 D (4.20-5.50) X10*6/uL Hgb 14.7 D (12.0-16.0) g/dl Hct 44.0 D (37.0-47.0) % MCV 83.3 (80.0-98.0) fL MCH 27.8 (27.0-33.0) pg MCHC 33.4 (31.0-35.0) g/dl RDW 13.8 (11.0-16.0) % Plt Count 379 (160-400) X10*3/uL MPV 8.9 L (9.4-12.3) fL Immature Gran % (Auto) 0.6 H (0.0-0.4) % Neut % (Auto) 70.4 (45-73) % Lymph % (Auto) 15.6 L (20-40) % [place] % (Auto) 11.0 (2-11) % Eos % (Auto) 2.0 (0-4) % Baso % (Auto) 0.4 (0-2) % Lymph # (Auto) 1.7 (1.2-4.9) X10*3/uL [place] # (Auto) 1.2 (0.1-1.2) X10*3/uL Eos # (Auto) 0.2 (0.0-0.4) X10*3/uL Baso # (Auto) 0.0 (0.0-0.2) X10*3/uL Abs Immat Gran (auto) 0.06 H (0.00-0.03) X10*3/uL Absolute Neuts (auto) 7.7 (2.0-8.3) x10*3/uL Absolute Nucleated RBC 0.000 (0.0-0.012) X10*3/uL Nucleated RBC % (auto) 0.0 (0.0-0.2) /100WBC ESR 62 H (0-20) MM/HR Sodium 139 (135-145) mmol/L Potassium 4.2 (3.3-5.1) mmol/L Chloride 99 (96-108) mmol/L Carbon Dioxide 28 (22-29) mmol/L Anion Gap 16 (12-20) BUN 12 (9-16) mg/dL Creatinine 0.74 (0.5-1.4) mg/dL Estim Creat Clear Calc 72.9 Estimated GFR > 60 Random Glucose 104 (60-115) mg/dL Lactic Acid 0.7 (0.5-2.0) mmol/L Calcium 9.7 (8.4-10.2) mg/dL Magnesium 2.2 (1.6-2.6) mg/dL Total Bilirubin 0.5 (0.0-1.0) mg/dL Direct Bilirubin 0.2 (0.0-0.5) mg/dL AST 18 (5-31) U/L ALT 12 (0-31) U/L Alkaline Phosphatase 77 (39-117) U/L Troponin I High Sens 7.0 (<3.5-17.0) ng/L C-Reactive Protein 23.60 H (< or = 0.50) mg/dL B-Natriuretic Peptide 65 (<100) pg/mL Total Protein 7.9 (6.5-8.0) g/dL Albumin 4.0 (3.5-5.0) g/dL Procalcitonin 0.05 ng/mL Urine Color Yellow Urine Appearance Clear Urine pH 6.0 (5.0-9.0) Ur Specific [place] 1.010 (1.005-1.025) Urine Protein Negative (Neg-Trace) mg/dL Urine Glucose (UA) Negative (Negative) mg/dL Urine Ketones Negative (Negative) mg/dL Urine Blood Trace H (Negative) Urine Nitrite Negative (Negative) Ur Leukocyte Esterase Negative (Negative) Urine RBC 3-5 H (0-2) /HPF Urine WBC 0-5 (0-5) /HPF Urine WBC Clumps None seen Ur Squamous Epith Cells 6-10 (0-2) /HPF Urine Bacteria 1+ (None Seen) Hyaline Casts 0-2 (0-2) /LPF Urine Opiates Screen Not Detected (Not Detect) Ur Buprenorphine Scrn Not Detected (Not Detect) ng/mL Ur Oxycodone Screen Not Detected (Not Detect) ng/mL Urine Methadone Screen Not Detected (Not Detect) ng/mL Urine Fentanyl Screen Not Detected (Not Detect) Ur Barbiturates Screen POSITIVE H (Not Detect) Ur Phencyclidine Scrn Not Detected (Not Detect) Ur Amphetamines Screen Not Detected (Not Detect) U Benzodiazepines Scrn Not Detected (Not Detect) Urine Cocaine Screen Not Detected (Not Detect) U Marijuana (THC) Screen Not Detected (Not Detect) Ethyl Alcohol < 10 mg/dL Critical Care Time Critical Care Time Critical Care Time: Yes Total Critical Care Time: 35 Attestation: The patient was critically ill with a high probability of imminent or life-threatening deterioration. ?I spent greater than 30 minutes of discontinuous time evaluating the patient, delivering critical care at the bedside, discussing evaluating data with consultants. ?Critical care time does not include time spent performing separately billable procedures or teaching. ?Time spent performing critical care with 35 minutes. Discharge Plan Discharge Clinical Impression: Fever, Arthralgia, Heart murmur, Aortic valve disease Patient Disposition: Admitted As Inpatient
--- NOTE | 2024-08-29 21:58 | ECG_ITS ---
Test Reason : NECK PAIN Blood Pressure : */* mmHG Vent. Rate : 62 BPM Atrial Rate : * BPM P-R Int : * ms QRS Dur : 158 ms QT Int : 450 ms P-R-T Axes : * -75 85 degrees QTcB Int : 456 ms Ventricular-paced rhythm Underlying AF Abnormal ECG When compared with ECG of 10-Nov-2023 19:58, No significant change was found Referred By: Figueroa Padilla Electronically Signed By: TONNY HANLEY MD
[2024-08-29 22:15] VITALS: BP 106/66; PULSE 66; RESP 18; TEMP 36.9; O2SAT 99
--- NOTE | 2024-08-29 22:34 | MHC.EDTECH ---
Patient labs are delay ,because Patient very difficult stick ,And Patient request a break ,RN aware .
--- NOTE | 2024-08-29 22:47 | PC.NURSE ---
2 RN attempted IV insertion / lab draw, unable to get IV access, patient refusing additional sticks at this time, provider made aware.
[2024-08-29 23:07] LABS: MANUAL DIFF FLAG NO
[2024-08-29 23:08] LABS: Hematocrit 44.0 % (37.0-47.0); Hemoglobin 14.7 g/dl (12.0-16.0); Imm Gran Abs Auto 0.06 X10*3/uL (0.00-0.03); Imm Gran Pct Auto 0.6 % (0.0-0.4); Lymphocytes Absolute Auto 1.7 X10*3/uL (1.2-4.9); Mean Corpuscular HGB Conc 33.4 g/dl (31.0-35.0); Mean Corpuscular Hemoglobin 27.8 pg (27.0-33.0); Mean Corpuscular Volume 83.3 fL (80.0-98.0); NRBC Abs Auto 0.000 X10*3/uL (0.0-0.012); NRBC Pct Auto 0.0 /100WBC (0.0-0.2); Platelet Count 379 X10*3/uL (160-400); Red Blood Count 5.28 X10*6/uL (4.20-5.50); White Blood Count 10.9 X10*3/uL (4.8-10.8)
[2024-08-29 23:26] LABS: Alanine Aminotransferase 12 U/L (0-31); Albumin Level 4.0 g/dL (3.5-5.0); Alkaline Phosphatase 77 U/L (39-117); Anion Gap 16 (12-20); Aspartate Amino Transferase 18 U/L (5-31); Blood Urea Nitrogen 12 mg/dL (9-16); Calcium 9.7 mg/dL (8.4-10.2); Carbon Dioxide 28 mmol/L (22-29); Chloride 99 mmol/L (96-108); Creatinine Clr Calc Pharmacy 72.9; Estimated Glomerular Filt Rate > 60; Magnesium 2.2 mg/dL (1.6-2.6); Potassium 4.2 mmol/L (3.3-5.1); Sodium 139 mmol/L (135-145); Total Protein 7.9 g/dL (6.5-8.0)
[2024-08-29 23:28] LABS: B Type Natriuretic Peptide 65 pg/mL (<100)
[2024-08-29 23:32] LABS: Troponin-I High Sensitivity 7.0 ng/L (<3.5-17.0)
[2024-08-30] VITALS (9 sets, daily range): BP systolic 111–143; BP diastolic 65–84; PULSE 60–93; RESP 12–20; TEMP 36.3–38.6; O2SAT 95–99
[2024-08-30 00:46] LABS: Procalcitonin 0.05 ng/mL
--- NOTE | 2024-08-30 00:47 | PC.NURSE ---
multiple attempts for IV and labs by RN, Ricardo, and MD LANDAVERDE. no success at this time
--- NOTE | 2024-08-30 01:26 | PC.NURSE ---
US IV to R upper arm, 18g placed by provider
--- NOTE | 2024-08-30 03:34 | PC.NURSE ---
Urine collected via straight cath and sent to lab. Pt tolerated well.
[2024-08-30] MEDS: cefEPime HCl/D5W 2 GM/50 ML PIGGYBACK IV (03:41)
[2024-08-30 03:52] LABS: Cannabinoid Screen Urine Not Detected (Not Detect)
[2024-08-30 04:02] LABS: Appearance Urine Clear; Glucose Urine UA Negative (Negative); PH 6.0 (5.0-9.0); Specific Gravity - Urine 1.010 (1.005-1.025); UMIC TRIGGER UACC YES
[2024-08-30] MEDS: vancomycin HCL 1,000 MG, vancomycin HCL 750 MG in 0.9 % Sodium Chloride 500 ML 267.5 MG IV (04:39)
--- NOTE | 2024-08-30 06:04 | PM.IMHP ---
History of Present Illness Date of Service: 08/30/24 Attending physician on admission: Adair Baig Chief Complaint: fever Patient is a 63-year-old female with a past medical history significant for history of endocarditis in 2004 requiring bioprosthetic aortic valve replacement at [facility], currently with aortic stenosis and and discussion for possible TAVR, pacemaker secondary to complete heart block, moderate COPD, MARY on CPAP, type 2 diabetes, mood disorder, hypertension and hyperlipidemia, who presented to the ED due to feeling unwell for the past 2-3 days, has been bed-bound. The patient is a very poor historian and symptoms have been difficult to assess. In the ED the provider checked a rectal temp which was 101.4. The patient does reports she has been feeling feverish at home but has not checked her temperature. She describes sweats, chills and overall body aches, mostly in her hips. She reports yesterday that she could not walk, reason is unknown, pain versus weakness. She also has a chronic cough which she reports is at baseline and related to her asthma. She has been using an inhaler for this which has been helpful. She denies any urinary symptoms, abdominal pain, sore throat, rash or wounds. Review of Systems Constitutional: Constitutional: Reports body ache(s), Reports chills, Reports fatigue, Reports fever(s) and Denies headache(s) Eyes: Eyes: Denies change in vision ENT: Denies headache(s), Denies nasal congestion and Denies sore throat Cardiovascular: Cardiovascular: Denies chest pain, Denies rapid heart rate, Denies leg edema, Denies lightheadedness and Denies dyspnea Respiratory: Respiratory: Denies chest congestion, Reports cough, Denies dyspnea and Denies wheezing Gastrointestinal: Gastrointestinal: Denies abdominal pain, Denies diarrhea, Denies nausea and Denies vomiting Genitourinary: Genitourinary: Denies difficulty voiding, Denies dysuria and Denies urinary urgency Musculoskeletal: Musculoskeletal: Reports myalgias Integumentary/Breasts: Skin/Breast: Denies rash Neurologic: Denies confusion and Denies headache(s) Psychiatric: Psychiatric: Denies confusion Endocrine: Endocrine: Reports fatigue Hematologic/Lymphatic: Hematologic/Lymphatic: Denies easy bleeding and Denies easy bruising Allergic/Immunologic: Allergic/Immunologic: Denies wheezing [facility] Medical History Swelling of left wrist Eosinophilia Severe aortic stenosis COPD (chronic obstructive pulmonary disease) Pacemaker Asthma with exacerbation Smoking Restrictive airway disease MARY (obstructive sleep apnea) MARY on CPAP Reactive airways dysfunction syndrome Rheumatoid arthritis Fibromyalgia GERD (gastroesophageal reflux disease) MARY (obstructive sleep apnea) Aortic valve endocarditis COPD (chronic obstructive pulmonary disease) COPD exacerbation Overactive bladder Bronchitis Allergic rhinitis COPD (chronic obstructive pulmonary disease) Asthma Hx of cardiac pacemaker Hx of migraines Hx of coronary artery disease History of urinary incontinence Hx of essential hypertension History of depression Hx of drug abuse Hx of hyperlipidemia Hx of allergic rhinitis History of enuresis Hx of osteoarthritis Hx of pilonidal cyst Family history of GERD History of arthritis Hx of diabetes mellitus Functional capacity: independent ambulation Surgical History History of surgical removal of pilonidal cyst Hx of bilateral cataract extraction Hx of colonoscopy History of cystoscopy History of hysterectomy Hx of aortic valve replacement Hx laparoscopic cholecystectomy History of epidermal inclusion cyst excision Social History Household Members: Family Household Members Other:: son Housing: Apartment Do you presently have visiting nurse or other home services: Yes (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) Alcohol intake: never Comment: refusing alarms Patient Tobacco Use Status: Former Tobacco user Tobacco use type: Cigarette Cigarettes Per Day: 3 Smoked in Last 30 Days: No e-Cigarette/Vaping Use: Never Used Second Hand Smoke Exposure: No Use of substances other than those prescribed or required for medical reasons: No Substance Use Type: Former Substance User Advance Directives: Yes Advance Directives on File: Yes Advance Directives Date on File: 11/08/21 Do you have a plan to hurt others: No Plan service: No Current occupational status: unemployed and disabled Narrative: No smoking, alcohol or drug use. Meds Allergies Allergy/AdvReac Type Severity Reaction Status Date / Time latex (LATEX) Allergy Severe DIFFICULTY Verified 08/29/24 21:38 BREATHING aspirin (Aspirin) Allergy Intermediate ITCHING, Verified 08/29/24 21:38 itchiness ciprofloxacin (From CIPRO) Allergy Intermediate DIAPHORESIS Verified 08/29/24 21:38 /PURITIS Penicillins (PENICILLINS) Allergy Unknown UNKNOWN Verified 08/29/24 21:38 HEMALATHA Inhibitors (HEMALATHA AdvReac Intermediate COUGH Verified 08/29/24 21:38 INHIBITORS) Active Medications: Current Medications Pharmacy Consult (Consult Rx Vancomycin Dosing) 1 each MISCELLANE DAILY PRN PRN Reason: Consult order Home Medications ?Medication ?Instructions ?Recorded ?Confirmed ?Last Taken ?Type amitriptyline 25 mg tablet 25 mg PO BEDTIME 07/03/22 04/28/24 10/17/23 History bisacodyl 5 mg tablet,delayed 10 mg PO BEDTIME 07/03/22 04/28/24 10/17/23 History release calcium 600 mg (as 1 tab PO DAILY 07/03/22 04/28/24 10/17/23 History carbonate)-vitamin D3 10 mcg (400 unit) tablet clopidogrel 75 mg tablet 75 mg PO DAILY 07/03/22 04/28/24 10/17/23 History cyanocobalamin (vitamin B-12) 1,000 mcg PO DAILY 07/03/22 04/28/24 10/17/23 History 1,000 mcg tablet folic acid 1 mg tablet 1 mg PO DAILY 07/03/22 04/28/24 10/17/23 History gabapentin 100 mg capsule 100 mg PO TID 07/03/22 04/28/24 10/17/23 History hydrochlorothiazide 12.5 mg tablet 12.5 mg PO DAILY 07/03/22 04/28/24 10/17/23 History montelukast 10 mg tablet 10 mg PO BEDTIME 07/03/22 04/28/24 10/17/23 History sertraline 50 mg tablet 50 mg PO DAILY 07/03/22 04/28/24 10/17/23 History melatonin 5 mg tablet 5 mg PO BEDTIME PRN insomnia 03/14/23 04/28/24 09/06/23 History tiotropium bromide 18 mcg capsule 1 cap inhalation DAILY 03/14/23 04/28/24 10/17/23 History with inhalation device (Spiriva with HandiHaler) albuterol sulfate 2.5 mg/3 mL 2.5 mg inhalation Q4-6H PRN 05/21/23 04/28/24 09/06/23 History (0.083 %) solution for nebulization Shortness Of Breath/Wheezing albuterol sulfate 90 mcg/actuation 2 puff inhalation Q4H PRN Wheezing 0304/28/24 09/06/23 History aerosol inhaler (Ventolin HFA) amlodipine 5 mg tablet 5 mg PO DAILY 08/03/23 04/28/24 10/17/23 History fluticasone 500 mcg-salmeterol 50 1 ea inhalation BID 10/18/23 04/28/24 10/17/23 History mcg/dose blistr powdr for inhalation (Advair Diskus) Physical Exam Vital Signs and Narrative: Vital Signs: Last Vital Signs Temp 98.6 F 08/30/24 06:00 Pulse 60 08/30/24 06:00 Resp 20 08/30/24 06:00 BP 111/74 08/30/24 06:00 Pulse Ox 98 08/30/24 06:00 O2 Del Method Room Air 08/30/24 06:00 BMI result Body Mass Index 25.8 General: AOx3, no acute distress, 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 rhonchorus. CVS: RRR, +murmur GI: +BS, NT, no distention Skin: Warm, dry Neuro: Cranial nerves II-XII grossly intact bilaterally. Motor grossly intact bilaterally Extremities: No pitting edema ?RLE >LLE Psych: Appropriate affect Const: General: No confusion Orientation/consciousness: No confusion Neuro: General: No confusion Results Labs 08/29/24 23:02 08/29/24 23:02 Labs: Laboratory Results - last 24 hr 08/29/24 08/30/24 08/30/24 23:02 01:54 03:33 MCV 83.3 MCH 27.8 MCHC 33.4 RDW 13.8 Plt Count 379 MPV 8.9 L Immature Gran % (Auto) 0.6 H Neut % (Auto) 70.4 Lymph % (Auto) 15.6 L [place] % (Auto) 11.0 Eos % (Auto) 2.0 Baso % (Auto) 0.4 Lymph # (Auto) 1.7 [place] # (Auto) 1.2 Eos # (Auto) 0.2 Baso # (Auto) 0.0 Abs Immat Gran (auto) 0.06 H Absolute Neuts (auto) 7.7 Absolute Nucleated RBC 0.000 Nucleated RBC % (auto) 0.0 ESR 62 H Anion Gap 16 Estim Creat Clear Calc 72.9 Estimated GFR > 60 Random Glucose 104 Lactic Acid 0.7 Calcium 9.7 Magnesium 2.2 Total Bilirubin 0.5 Direct Bilirubin 0.2 AST 18 ALT 12 Alkaline Phosphatase 77 Troponin I High Sens 7.0 C-Reactive Protein 23.60 H B-Natriuretic Peptide 65 Total Protein 7.9 Albumin 4.0 Procalcitonin 0.05 Urine Color Yellow Urine Appearance Clear Urine pH 6.0 Ur Specific [place] 1.010 Urine Protein Negative Urine Glucose (UA) Negative Urine Ketones Negative Urine Blood Trace H Urine Nitrite Negative Ur Leukocyte Esterase Negative Urine RBC 3-5 H Urine WBC 0-5 Urine WBC Clumps None seen Ur Squamous Epith Cells 6-10 Urine Bacteria 1+ Hyaline Casts 0-2 Urine Opiates Screen Not Detected Ur Buprenorphine Scrn Not Detected Ur Oxycodone Screen Not Detected Urine Methadone Screen Not Detected Urine Fentanyl Screen Not Detected Ur Barbiturates Screen POSITIVE H Ur Phencyclidine Scrn Not Detected Ur Amphetamines Screen Not Detected U Benzodiazepines Scrn Not Detected Urine Cocaine Screen Not Detected U Marijuana (THC) Screen Not Detected Ethyl Alcohol < 10 Assessment and Plan (1) Fever, unknown origin: Status: Acute (2) Generalized weakness: Status: Acute Plan Patient is a 63-year-old female with a past medical history significant for history of endocarditis in 2004 requiring bioprosthetic aortic valve replacement at [facility], currently with aortic stenosis and and discussion for possible TAVR, pacemaker secondary to complete heart block, moderate COPD, MARY on CPAP, type 2 diabetes, mood disorder, hypertension and hyperlipidemia, who presented to the ED due to feeling unwell for the past 2-3 days, has been bed-bound. The patient is a very poor historian and symptoms have been difficult to assess. fever of unknown origin, Ddx: VTE, endocarditis - WBC 10.9, , no tachycardia or tachypnea, 1 rectal temp measured of 101.4, lactic acid normal, blood cultures x2 pending, no sepsis - chest x-ray negative - COVID/flu/RSV negative - UA negative - procalcitonin negative - CRP elevated at 23, ESR 62 - head CT and C-spine negative - left knee x-ray with small effusion, right shoulder x-ray negative - VQ scan and bilateral venous doppler ordered - ID consult - 1L IVF ordered - repeat CXR after IV hydration - tick panel, lyme ordered - throat culture ordered - respiratory panel ordered - started on vancomycin and cefepime in ED, penicillin allergy, continue broad-spectrum antibiotics - monitor CBC and BMP Generalized weakness - patient has been bed-bound - check CPK - fall precautions - PT/OT eval when ready for discharge Moderate COPD without acute exacerbation - no wheezing on exam - continue home inhalers MARY - CPAP at bedtime Type 2 diabetes - hold p.o. diabetes meds - sliding scale insulin - diabetic diet Mood disorder - continue home meds HTN - continue home meds HLD - continue home meds Med rec pending Full code VTE prophylaxis: Lovenox Patient with fever of unknown origin with concern for VTE or endocarditis with associated generalized weakness, requiring admission for at least 2 midnight stay for further evaluation, monitoring and specialist consultation. Quality Stroke Does the patient have a stroke diagnosis?: No VTE Prior VTE?: No VTE Risk Level:: Medical - moderate - high VTE Device Contraindication: Treatment Not Indicated VTE Drug Contraindication: N/A - Med Ordered
[2024-08-30] MEDS: Lactated Ringers 1,000 ML 999 ML IV (07:25)
[2024-08-30 07:43] LABS: Glucose, Whole Blood 99 mg/dL (60-115)
--- NOTE | 2024-08-30 09:10 | PC.NURSE ---
patient transferred to [facility] at this time via transport. plan of care ongoing.
--- NOTE | 2024-08-30 10:02 | PHA.MEDREC ---
Pharmacy Consult ? Medication Reconciliation Pharmacy has completed the medication reconciliation, pt poor historian per provider notes, confirmed medication list utilizing claims.
--- NOTE | 2024-08-30 10:12 | MHC.EDTECH ---
this pct went into patient room because patient was screaming asking for her purse , i gave her the purse and she stated she is going home . i told the patient shes admitted and cant get up because she is weak and she started screaming at me stating she can and we are treating her bad here .
[2024-08-30 11:41] LABS: Chlamydia pneumoniae PCR Not Detected (Not Detect.); Coronavirus 229E PCR Not Detected (Not Detect.); Coronavirus HKU1 PCR Not Detected (Not Detect.); Coronavirus NL63 PCR Not Detected (Not Detect.); Coronavirus OC43 PCR Not Detected (Not Detect.); RSV PCR Not Detected (Not Detect.); Rhino/Enterovirus PCR Not Detected (Not Detect.)
[2024-08-30 12:10] LABS: Glucose, Whole Blood 109 mg/dL (60-115)
[2024-08-30 13:02] LABS: Influenza A H1 PCR Not Detected (Not Detect.); Influenza A H1-2009 PCR Not Detected (Not Detect.); Influenza A H3 PCR Not Detected (Not Detect.); SARS-CoV-2 PCR Detected (Not Detect.)
--- NOTE | 2024-08-30 13:25 | PM.EVENT ---
Event Note Date of Service: 08/30/24 Event Note: Patient is a 63-year-old female with a past medical history significant for history of endocarditis in 2004 requiring bioprosthetic aortic valve replacement at [facility], currently with aortic stenosis and and discussion for possible TAVR, pacemaker secondary to complete heart block, moderate COPD, MARY on CPAP, type 2 diabetes, mood disorder, hypertension and hyperlipidemia, who presented to the ED due to feeling unwell for the past 2-3 days, has been bed-bound. The patient is a very poor historian and symptoms have been difficult to assess. fever of unknown origin, Ddx: VTE, endocarditis WBC 10.9, , no tachycardia or tachypnea, 1 rectal temp measured of 101.4, lactic acid normal, blood cultures x2 pending, no sepsis chest x-ray negative UA negative procalcitonin negative CRP elevated at 23, ESR [address] and C-spine negative left knee x-ray with small effusion, right shoulder x-ray negative VQ scan pending, bilateral venous doppler negative 1L IVF ordered tick panel, lyme ordered throat culture ordered RPP pos for covid vancomycin and cefepime Generalized weakness patient has been bed-bound check CPK fall precautions PT/OT eval when ready for discharge Moderate COPD without acute exacerbation no wheezing on exam continue home inhalers MARY CPAP at bedtime Type 2 diabetes hold p.o. diabetes meds sliding scale insulin diabetic diet Mood disorder continue home meds HTN continue home meds HLD continue home meds Full code VTE prophylaxis: Lovenox Time Spent With Patient Time: Total time managing care of this patient today ____ minutes.
[2024-08-30 16:28] LABS: Glucose, Whole Blood 119 mg/dL (60-115)
[2024-08-30] MEDS: oxyCODONE HCl Immed Release 5 MG TABLET PO (20:03)
[2024-08-30 20:04] LABS: Glucose, Whole Blood 97 mg/dL (60-115)
[2024-08-30] MEDS: OLANZapine 10 MG VIAL 5 MG IM (22:46)
--- NOTE | 2024-08-30 23:47 | P.CNID_ITS ---
History of Present Illness Data of Consult Service Date: 08/30/24 Requesting physician: Winifred Romero Primary Care Provider: [facility] Reason for consult: fever of unknown origin She presents with weakness and multiple myalgias with left hip and knee pain for three to four days. She has prior hospitalization 10/18 when I saw her and had coagulase staph bacteremia contaminant. She has prior endocarditis reported in 2002 and pacer and there was concern over endocarditis at that time. She now has temperature of 101. PMFSH Past Medical History Medical History (Updated 08/30/24 @ 23:51 by Alma Gomez MD) COVID Swelling of left wrist Eosinophilia Severe aortic stenosis COPD (chronic obstructive pulmonary disease) Pacemaker Asthma with exacerbation Smoking Restrictive airway disease MARY (obstructive sleep apnea) MARY on CPAP Reactive airways dysfunction syndrome Rheumatoid arthritis Fibromyalgia GERD (gastroesophageal reflux disease) MARY (obstructive sleep apnea) Aortic valve endocarditis COPD (chronic obstructive pulmonary disease) COPD exacerbation Overactive bladder Bronchitis Allergic rhinitis COPD (chronic obstructive pulmonary disease) Asthma Hx of cardiac pacemaker Hx of migraines Hx of coronary artery disease History of urinary incontinence Hx of essential hypertension History of depression Hx of drug abuse Hx of hyperlipidemia Hx of allergic rhinitis History of enuresis Hx of osteoarthritis Hx of pilonidal cyst Family history of GERD History of arthritis Hx of diabetes mellitus Family History Family history: reviewed and not pertinent Surgical History Surgical History History of surgical removal of pilonidal cyst Hx of bilateral cataract extraction Hx of colonoscopy History of cystoscopy History of hysterectomy Hx of aortic valve replacement Hx laparoscopic cholecystectomy History of epidermal inclusion cyst excision Social History Social History Household Members: Unknown / Unable to assess Household Members Other:: son Housing: Apartment Do you presently have visiting nurse or other home services: Yes (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) Alcohol intake: never Comment: refusing alarms Patient Tobacco Use Status: Former Tobacco user Tobacco use type: Cigarette Cigarettes Per Day: 3 e-Cigarette/Vaping Use: Never Used Second Hand Smoke Exposure: No Substance Use Type: Former Substance User Advance Directives Date on File: 11/08/21 service: No Current occupational status: unemployed and disabled Meds Allergies Allergy/AdvReac Type Severity Reaction Status Date / Time latex (LATEX) Allergy Severe DIFFICULTY Verified 08/29/24 21:38 BREATHING aspirin (Aspirin) Allergy Intermediate ITCHING, Verified 08/29/24 21:38 itchiness ciprofloxacin (From CIPRO) Allergy Intermediate DIAPHORESIS Verified 08/29/24 21:38 /PURITIS Penicillins (PENICILLINS) Allergy Unknown UNKNOWN Verified 08/29/24 21:38 HEMALATHA Inhibitors (HEMALATHA AdvReac Intermediate COUGH Verified 08/29/24 21:38 INHIBITORS) Active Medications: Current Medications Acetaminophen/Butalbital/Caffeine (Butalb/Acetamin/Caff 50/325/40 Tablet) 1 tab PO Q6H PRN PRN Reason: haeadace Albuterol Sulfate (Albuterol Sulfate (0.083%) 2.5 Mg/3 Ml Vial.Neb) 2.5 mg INHALE Q4H PRN PRN Reason: Shortness of Breath/Wheezing Albuterol Sulfate (Albuterol Sulfate 90 Mcg 8 Gm Inhaler) 2 puff INHALE Q4H PRN PRN Reason: Wheezing Amitriptyline HCl (Amitriptyline Hcl 25 Mg Tablet) 25 mg PO BEDTIME [facility] Last Admin: 08/30/24 20:03 Dose: 25 mg Amlodipine Besylate (Amlodipine Besylate 5 Mg Tablet) 5 mg PO DAILY [facility]; Protocol Bisacodyl (Bisacodyl 5 Mg Tablet.Dr) 10 mg PO BEDTIME [facility] Last Admin: 08/30/24 20:03 Dose: 10 mg Calcium Carbonate/Cholecalciferol (Calcium + Vitamin D 250 Mg Tablet) 250 mg PO DAILY [facility] Clopidogrel Bisulfate (Clopidogrel Bisulfate 75 Mg Tablet) 75 mg PO DAILY [facility] Cyanocobalamin (Cyanocobalamin (Vitamin B-12) 1,000 Mcg Tablet) 1,000 mcg PO DAILY [facility] Dextrose (Dextrose 50 % 25 Gm/50 Ml Syringe) 25 gm IVPUSH Q15M PRN; Protocol PRN Reason: per Hypoglycemia Standing Ord. Enoxaparin Sodium (Enoxaparin Sodium 40 Mg/0.4 Ml Syringe) 40 mg SUBCUT Q24H [facility] Last Admin: 08/30/24 10:12 Dose: 40 mg Fluticasone/Vilanterol (Fluticasone/Vilanterol 200/25 Blst.W.Dev) 1 puff INHALE RDAILY [facility] Folic Acid (Folic Acid 1 Mg Tablet) 1 mg PO DAILY [facility] Gabapentin (Gabapentin 100 Mg Capsule) 100 mg PO TID [facility] Last Admin: 08/30/24 20:03 Dose: 100 mg Glucose (Glucose Gel 15 Gm Gel..Gram.) 15 gm PO Q15M PRN; Protocol PRN Reason: per Hypoglycemia Standing Ord. Hydrochlorothiazide (Hydrochlorothiazide 12.5 Mg Tablet) 12.5 mg PO DAILY [facility]; Protocol Cefepime HCl (Maxipime) 2 gm in 50 mls @ 100 mls/hr IV Q8H [facility] Vancomycin HCl 750 mg/ Sodium (Chloride) 265 mls @ 265 mls/hr IV Q12H [facility] Last Infusion: 08/30/24 20:04 Dose: Infused Insulin Human Lispro (Insulin Lispro 100 Unit/Ml 3 Ml Vial) 0 unit SUBCUT QIDACHS [facility]; Protocol Last Admin: 08/30/24 20:04 Dose: Not Given Montelukast Sodium (Montelukast Sodium 10 Mg Tablet) 10 mg PO BEDTIME [facility] Last Admin: 08/30/24 20:03 Dose: 10 mg Morphine Sulfate (Morphine Sulfate 2 Mg/Ml Cartridge) 2 mg IVPUSH Q4H PRN; Protocol PRN Reason: Pain, Severe (Pain Scale 7-10) Last Admin: 08/30/24 16:30 Dose: 2 mg Oxycodone HCl (Oxycodone Hcl Immed Release 5 Mg Tablet) 5 mg PO Q4H PRN PRN Reason: Pain, Moderate(Pain Scale 4-6) Last Admin: 08/30/24 20:03 Dose: 5 mg Pharmacy Consult (Consult Rx Vancomycin Dosing) 1 each MISCELLANE DAILY PRN PRN Reason: Consult order Sertraline HCl (Sertraline Hcl 50 Mg Tablet) 50 mg PO DAILY [facility] Tamsulosin HCl (Tamsulosin Hcl 0.4 Mg Capsule) 0.4 mg PO DAILY [facility] Last Admin: 08/30/24 16:32 Dose: 0.4 mg Tiotropium Bulger (Tiotropium Bulger 2.5 Mcg 1 Puff/2.5 Mcg Mist.Inhal) 2 puff INHALE DAILY [facility] Home Medications ?Medication ?Instructions ?Recorded ?Confirmed ?Last Taken ?Type amitriptyline 25 mg tablet 25 mg PO BEDTIME 07/03/22 0 08/30/24 10/17/23 History bisacodyl 5 mg tablet,delayed 10 mg PO BEDTIME 3 08/30/24 10/17/23 History release calcium 600 mg (as 1 tab PO DAILY 07/03/22/0 07/2010/17/23 History carbonate)-vitamin D3 10 mcg (400 unit) tablet clopidogrel 75 mg tablet 75 mg PO DAILY 07/03/22/07/2010/17/23 History cyanocobalamin (vitamin B-12) 1,000 mcg PO DAILY 07/0308/30/24 10/17/23 History 1,000 mcg tablet folic acid 1 mg tablet 1 mg PO DAILY 07/03/2208/3010/17/23 History gabapentin 100 mg capsule 100 mg PO TID 07/03/2208/3010/17/23 History hydrochlorothiazide 12.5 mg tablet 12.5 mg PO DAILY 08/30/24 10/17/23 History montelukast 10 mg tablet 10 mg PO BEDTIME 07/03/2210/17/23 History sertraline 50 mg tablet 50 mg PO DAILY 07/03/2207/2010/17/23 History melatonin 5 mg tablet 5 mg PO BEDTIME PRN insomnia 03/14/23 08/30/24 09/06/23 History tiotropium bromide 18 mcg capsule 1 cap inhalation PEPITO LY 03/14/23 08/30/24 10/17/23 History with inhalation device (Spiriva with HandiHaler) albuterol sulfate 2.5 mg/3 mL 2.5 mg inhalation Q4-6H PRN 05/21/23 08/30/24 09/06/23 History (0.083 %) solution for nebulization Shortness Of Breat h/Wheezing albuterol sulfate 90 mcg/actuation 2 puff inhalation Q 4H PRN Wheezing 05/21/23 08/30/24 09/06/23 History aerosol inhaler (Ventolin HFA) amlodipine 5 mg tablet 5 mg PO DAILY 08/03/2308/3010/17/23 History fluticasone 500 mcg-salmeterol 50 1 ea inhalation BID 10/18/23 08/30/24 10/17/23 History mcg/dose blistr powdr for inhalation (Advair Diskus) Physical Exam 2 Vital Signs: Vital Signs: Last Vital Signs Temp 98.6 F 08/30/24 19:55 Pulse 61 08/30/24 19:55 Resp 18 08/30/24 19:55 BP 143/84 H 08/30/24 19:55 Pulse Ox 97 08/30/24 19:55 O2 Del Method Room Air 08/30/24 19:55 BMI result Body Mass Index 25.8 Cardio: Other: 2/6 NEIDA Results Labs 08/29/24 23:02 08/29/24 23:02 Labs: Cardiac Enzymes 08/30/24 Range/Units 07:19 Total Creatine Kinase 30 (26-140) U/L Urine 08/30/24 Range/Units 03:33 Urine Color Yellow Urine Appearance Clear Urine pH 6.0 (5.0-9.0) Ur Specific [place] 1.010 (1.005-1.025) Urine Protein Negative (Neg-Trace) mg/dL Urine Glucose (UA) Negative (Negative) mg/dL Assessment and Plan (1) Heart murmur: Status: Acute (2) Aortic valve disease: Status: Acute (3) Pacemaker: Status: Acute (4) COVID: Status: Acute It is better to avoid combining clopidogrel and paxlovid due to drug interactions. She is not hypoxic so no steroids. Would not give remdesivir as not sure duration of COVID Plan She has COVID may likely be cause of fever. She has blood cultures pending see if endocarditis Would stop antibiotics tomorrow if no bacteremia.
[2024-08-31] VITALS (7 sets, daily range): BP systolic 122–137; BP diastolic 61–80; PULSE 60–77; RESP 16–18; TEMP 36.8–37.1; O2SAT 94–98
[2024-08-31] MEDS: OLANZapine 10 MG VIAL 2.5 MG IM (00:55)
--- NOTE | 2024-08-31 04:28 | PC.NURSE ---
Pt found on floor sitting on knees by bedside around 2144 by COUNTERINTELLIGENCE/HUMINT SPECIALIST. Bed alarm going off. Patient states she was trying to get oob and go into hallway. Assited to recliner by staff. Denies LOC or head strike. VSS. made aware. Xrays of bilat knees ordered. Patient very confused and agitated and frequently attempting to get oob as shift went on. Required x2 IM Zyprexa as patient had no IV access and was not allowing access attempts.
[2024-08-31 07:23] LABS: Glucose, Whole Blood 110 mg/dL (60-115)
[2024-08-31 07:38] LABS: Creatinine Clr Calc Pharmacy 108.0; Estimated Glomerular Filt Rate > 60
[2024-08-31] MEDS: Tiotropium Bromide 2.5 mcg 1 PUFF/2.5 MCG MIST.INHAL 2 PUFF INHALE (08:43)
[2024-08-31] MEDS: Fluticasone/Vilanterol 200/25 BLST.W.DEV 1 PUFF INHALE (08:43)
[2024-08-31] MEDS: Calcium + Vitamin D 250 MG TABLET PO (08:56)
--- NOTE | 2024-08-31 09:37 | HO.PM.IMPN ---
Subjective Subjective Date of Service: 08/31/24 Review of Systems Follow up fever pain to knee no nausea or vomiting Physical Exam Vital Signs: Vital Signs: Last Vital Signs Temp 98.3 F 08/31/24 08:00 Pulse 67 08/31/24 08:47 Resp 18 08/31/24 08:47 BP 135/66 08/31/24 08:00 Pulse Ox 95 08/31/24 08:00 O2 Del Method Room Air 08/31/24 08:00 BMI result Body Mass Index 25.8 Objective Data Active Medications Acetaminophen/Butalbital/Caffeine (Butalb/Acetamin/Caff 50/325/40 Tablet) 1 tab PO Q6H PRN PRN Reason: haeadace Albuterol Sulfate (Albuterol Sulfate (0.083%) 2.5 Mg/3 Ml Vial.Neb) 2.5 mg INHALE Q4H PRN PRN Reason: Shortness of Breath/Wheezing Albuterol Sulfate (Albuterol Sulfate 90 Mcg 8 Gm Inhaler) 2 puff INHALE Q4H PRN PRN Reason: Wheezing Amitriptyline HCl (Amitriptyline Hcl 25 Mg Tablet) 25 mg PO BEDTIME [facility] Last Admin: 08/30/24 20:03 Dose: 25 mg Documented By: KIM Amlodipine Besylate (Amlodipine Besylate 5 Mg Tablet) 5 mg PO DAILY [facility]; Protocol Last Admin: 08/31/24 08:56 Dose: 5 mg Documented By: HEIDY Bisacodyl (Bisacodyl 5 Mg Tablet.) 10 mg PO BEDTIME [facility] Last Admin: 08/30/24 20:03 Dose: 10 mg Documented By: KIM Calcium Carbonate/Cholecalciferol (Calcium + Vitamin D 250 Mg Tablet) 250 mg PO DAILY [facility] Last Admin: 08/31/24 08:56 Dose: 250 mg Documented By: HEIDY Clopidogrel Bisulfate (Clopidogrel Bisulfate 75 Mg Tablet) 75 mg PO DAILY [facility] Last Admin: 08/31/24 08:55 Dose: 75 mg Documented By: HEIDY Cyanocobalamin (Cyanocobalamin (Vitamin B-12) 1,000 Mcg Tablet) 1,000 mcg PO DAILY [facility] Last Admin: 08/31/24 08:56 Dose: 1,000 mcg Documented By: HEIDY Dextrose (Dextrose 50 % 25 Gm/50 Ml Syringe) 25 gm IVPUSH Q15M PRN; Protocol PRN Reason: per Hypoglycemia Standing Ord. Enoxaparin Sodium (Enoxaparin Sodium 40 Mg/0.4 Ml Syringe) 40 mg SUBCUT Q24H [facility] Last Admin: 08/31/24 08:55 Dose: 40 mg Documented By: HEIDY Fluticasone/Vilanterol (Fluticasone/Vilanterol 200/25 Blst.W.Dev) 1 puff INHALE RDAILY [facility] Last Admin: 08/31/24 08:43 Dose: 1 puff Documented By: ELIU Folic Acid (Folic Acid 1 Mg Tablet) 1 mg PO DAILY [facility] Last Admin: 08/31/24 08:56 Dose: 1 mg Documented By: HEIDY Gabapentin (Gabapentin 100 Mg Capsule) 100 mg PO TID [facility] Last Admin: 08/31/24 08:56 Dose: 100 mg Documented By: HEIDY Glucose (Glucose Gel 15 Gm Gel..Gram.) 15 gm PO Q15M PRN; Protocol PRN Reason: per Hypoglycemia Standing Ord. Hydrochlorothiazide (Hydrochlorothiazide 12.5 Mg Tablet) 12.5 mg PO DAILY [facility]; Protocol Cefepime HCl (Maxipime) 2 gm in 50 mls @ 100 mls/hr IV Q8H [facility] Vancomycin HCl 750 mg/ Sodium (Chloride) 265 mls @ 265 mls/hr IV Q12H [facility] Last Infusion: 08/31/24 06:06 Dose: Infused Documented By: KIM Insulin Human Lispro (Insulin Lispro 100 Unit/Ml 3 Ml Vial) 0 unit SUBCUT QIDACHS [facility]; Protocol Last Admin: 08/31/24 08:51 Dose: Not Given Documented By: HEIDY Non-Admin Reason: No Insulin Coverage Montelukast Sodium (Montelukast Sodium 10 Mg Tablet) 10 mg PO BEDTIME [facility] Last Admin: 08/30/24 20:03 Dose: 10 mg Documented By: KIM Morphine Sulfate (Morphine Sulfate 2 Mg/Ml Cartridge) 2 mg IVPUSH Q4H PRN; Protocol PRN Reason: Pain, Severe (Pain Scale 7-10) Last Admin: 08/30/24 16:30 Dose: 2 mg Documented By: HEIDY Oxycodone HCl (Oxycodone Hcl Immed Release 5 Mg Tablet) 5 mg PO Q4H PRN PRN Reason: Pain, Moderate(Pain Scale 4-6) Last Admin: 08/30/24 20:03 Dose: 5 mg Documented By: KIM Pharmacy Consult (Consult Rx Vancomycin Dosing) 1 each MISCELLANE DAILY PRN PRN Reason: Consult order Sertraline HCl (Sertraline Hcl 50 Mg Tablet) 50 mg PO DAILY [facility] Last Admin: 08/31/24 08:56 Dose: 50 mg Documented By: HEIDY Tamsulosin HCl (Tamsulosin Hcl 0.4 Mg Capsule) 0.4 mg PO DAILY [facility] Last Admin: 08/31/24 08:56 Dose: 0.4 mg Documented By: HEIDY Tiotropium [place] (Tiotropium [place] 2.5 Mcg 1 Puff/2.5 Mcg Mist.Inhal) 2 puff INHALE DAILY [facility] Last Admin: 08/31/24 08:43 Dose: 2 puff Documented By: ELIU Labs 08/29/24 23:02 08/31/24 07:04 Labs: Laboratory Results - last 24 hr 08/30/24 08/30/24 08/30/24 10:39 12:06 15:25 Hold Purple Top Estim Creat Clear Calc Estimated GFR POC Glucose 109 119 H Respiratory Panel Damico See Note Adenovirus (Rapid PCR) Not Detected B.pert (TEM-PCR) Not Detected B.parapertussis DNA PCR Not Detected C. pneumoniae DNA (PCR) Not Detected Coronavirus OC43 (PCR) Not Detected Coronavirus HKU1 (PCR) Not Detected Coronavirus 229E (PCR) Not Detected Coronavirus NL63 (PCR) Not Detected Human Metapneumovir PCR Not Detected Influenza A (RT-PCR) Not Detected Influenza A (H1) PCR Not Detected Influ A (H1/09) PCR Not Detected Influenza A (H3) PCR Not Detected Influenza B (RT-PCR) Not Detected M. pneumoniae (PCR) Not Detected Parainfluenza 1 (PCR) Not Detected Parainfluenza 2 (PCR) Not Detected Parainfluenza 3 (PCR) Not Detected Parainfluenza 4 (PCR) Not Detected RSV (PCR) Not Detected Entero/Rhino (PCR) Not Detected SARS-CoV-2 RNA (RT-PCR) Detected A 08/30/24 08/31/24 08/31/24 20:00 07:04 07:13 Hold Purple Top Estim Creat Clear Calc 108.0 Estimated GFR > 60 POC Glucose 97 110 Respiratory Panel Damico Adenovirus (Rapid PCR) B.pert (TEM-PCR) B.parapertussis DNA PCR C. pneumoniae DNA (PCR) Coronavirus OC43 (PCR) Coronavirus HKU1 (PCR) Coronavirus 229E (PCR) Coronavirus NL63 (PCR) Human Metapneumovir PCR Influenza A (RT-PCR) Influenza A (H1) PCR Influ A (H1/09) PCR Influenza A (H3) PCR Influenza B (RT-PCR) M. pneumoniae (PCR) Parainfluenza 1 (PCR) Parainfluenza 2 (PCR) Parainfluenza 3 (PCR) Parainfluenza 4 (PCR) RSV (PCR) Entero/Rhino (PCR) SARS-CoV-2 RNA (RT-PCR) 08/31/24 07:15 Hold Purple Top SEE NOTE Estim Creat Clear Calc Estimated GFR POC Glucose Respiratory Panel Damico Adenovirus (Rapid PCR) B.pert (TEM-PCR) B.parapertussis DNA PCR C. pneumoniae DNA (PCR) Coronavirus OC43 (PCR) Coronavirus HKU1 (PCR) Coronavirus 229E (PCR) Coronavirus NL63 (PCR) Human Metapneumovir PCR Influenza A (RT-PCR) Influenza A (H1) PCR Influ A (H1/09) PCR Influenza A (H3) PCR Influenza B (RT-PCR) M. pneumoniae (PCR) Parainfluenza 1 (PCR) Parainfluenza 2 (PCR) Parainfluenza 3 (PCR) Parainfluenza 4 (PCR) RSV (PCR) Entero/Rhino (PCR) SARS-CoV-2 RNA (RT-PCR) Microbiology Microbiology Results: Microbiology 08/30/24 10:52 Throat Culture - Preliminary Throat No Group A Beta-hemolytic Streptococci isolated to date. 08/30/24 01:54 Blood Culture - Preliminary Blood - Venous No growth after 24 hours. 08/30/24 01:21 Blood Culture - Preliminary Blood - Venous No growth after 24 hours. 08/30/24 01:21 Blood Culture - Preliminary Blood - Venous No growth after 24 hours. Assessment and Plan (1) Fever: Status: Acute Plan Patient is a 63-year-old female with a past medical history significant for history of endocarditis in 2004 requiring bioprosthetic aortic valve replacement at [facility], currently with aortic stenosis and and discussion for possible TAVR, pacemaker secondary to complete heart block, moderate COPD, MARY on CPAP, type 2 diabetes, mood disorder, hypertension and hyperlipidemia, who presented to the ED due to feeling unwell for the past 2-3 days, has been bed-bound. The patient is a very poor historian and symptoms have been difficult to assess. Urinary retention Flomax added Insert Haskins catheter Fall overnight found on her knees leaning on bed no loc or acute injury Fever of unknown origin. Resolved concern for endocarditis vs covid causing symptoms WBC 10.9, no tachycardia or tachypnea, 1 rectal temp measured of 101.4, lactic acid normal, blood cultures x2 pending, no sepsis chest x-ray, ua, procalcitonin, throat cx negative head CT and C-spine negative VQ scan pending, bilateral venous doppler negative tick panel, lyme pending RPP pos for covid, on precautions blood cx neg for 24 hrs echo ordered continue vancomycin and cefepime Left knee x-ray with small effusion ortho consult likely not cause of fever Generalized weakness patient has been bed-bound normal CPK fall precautions PT/OT eval when ready for discharge Moderate COPD without acute exacerbation no wheezing on exam continue home inhalers MARY CPAP at bedtime Type 2 diabetes hold p.o. diabetes meds sliding scale insulin diabetic diet Mood disorder continue home meds HTN continue home meds HLD continue home meds Full code VTE prophylaxis: Lovenox Quality Stroke Does the patient have a stroke diagnosis?: No VTE Prior VTE?: No VTE Risk Level:: Medical - moderate - high VTE Device Contraindication: Treatment Not Indicated VTE Drug Contraindication: N/A - Med Ordered
[2024-08-31 11:37] LABS: Glucose, Whole Blood 116 mg/dL (60-115)
[2024-08-31] MEDS: cefEPime HCl/D5W 2 GM/50 ML PIGGYBACK IV ×2 (13:21→20:46)
[2024-08-31] MEDS: oxyCODONE HCl Immed Release 5 MG TABLET PO (13:30)
[2024-08-31 15:57] LABS: Glucose, Whole Blood 93 mg/dL (60-115)
--- NOTE | 2024-08-31 15:59 | PM.PNORT ---
Subjective Subjective Date of Service: 08/31/24 Interval history: Patient is a poor historian-she has some confusion likely due to COVID and fever -c/o left knee pain, cannot describe an injury Physical Exam Vital Signs: Vital Signs: Last Vital Signs Temp 98.3 F 08/31/24 12:00 Pulse 77 08/31/24 12:00 Resp 18 08/31/24 12:00 BP 122/64 08/31/24 12:00 Pulse Ox 98 08/31/24 12:00 O2 Del Method Room Air 08/31/24 12:00 BMI result Body Mass Index 25.8 Const: General: cooperative, healthy appearing, comfortable and no acute distress Extrem: Other: Left knee has a moderate effusion No erythema No warmth Pain with PROM NVI Procedures Date of Service Date of Service: 08/31/24 Progress Note: A&P Assessment and plan (1) Knee effusion, left: Status: Inactive Assessment and Plan: No evidence of septic joint Recommend R.I.C.E. PT for ROM , wbat Out patient f/u if pain/swelling continue Time Spent With Patient Time: Total time managing care of this patient today ____ minutes. Quality Stroke Does the patient have a stroke diagnosis?: No VTE Prior VTE?: No VTE Risk Level:: Medical - moderate - high VTE Device Contraindication: Treatment Not Indicated VTE Drug Contraindication: N/A - Med Ordered
--- NOTE | 2024-08-31 16:15 | HE.PHANOTE ---
VANCO DOSE ADJUSTMENT BASED ON SCR AND TROUGH OF 10.2 DOSE INCREASED TO 1000 Q 12H NEXT LEVEL 09/01 @ 1500
[2024-08-31 20:01] LABS: Glucose, Whole Blood 113 mg/dL (60-115)
[2024-09-01] VITALS (8 sets, daily range): BP systolic 113–135; BP diastolic 62–78; PULSE 59–99; RESP 16–20; TEMP 36.6–37.6; O2SAT 93–98
[2024-09-01] MEDS: cefEPime HCl/D5W 2 GM/50 ML PIGGYBACK IV ×3 (03:05→20:34)
[2024-09-01 06:54] LABS: Creatinine Clr Calc Pharmacy 89.9; Estimated Glomerular Filt Rate > 60
[2024-09-01 06:57] LABS: Glucose, Whole Blood 127 mg/dL (60-115)
--- NOTE | 2024-09-01 07:00 | CA_ITS ---
Transthoracic Echocardiogram Patient (Last, First, Middle): Ting Keith, Gender: Female Date of : 1960 Age: 63 Procedure Date: 09/01/2024 Procedure Type: Transthoracic Echocardiogram Location: [facility] Height: 160.02 cm Weight: 65.77 kg BSA: 1.69 m2 Heart Rate: bpm BP: 113 / 78 mmHg Manager Balance: TO Referring MD: Carol Dubose PA-C Symptoms: murmur, fever Study Quality: Fair/Contrast Conclusions: - Normal left ventricular cavity size. There is normal left ventricular wall thickness. The left ventricular systolic function is hyperdynamic. The visually estimated ejection fraction is >70%. - There is severe calcification of the aortic valve. The peak aortic velocity is 5.65 m/s. The mean gradient is 72 mmHg. The aortic valve area is 0.60 cm2. - There is mild dilatation of the ascending aorta measuring 3.60 cm. Findings Procedure Information Contrast agent, definity, is being given per protocol without apparent complications. Left Ventricle Normal left ventricular cavity size. There is normal left ventricular wall thickness. The left ventricular systolic function is hyperdynamic. The visually estimated ejection fraction is >70%. Abnormal diastolic function is noted. Spectral Doppler is indicative of a restrictive filling pattern. E/E prime ratio is between 8 and 15 consistent with indeterminate filling pressures. Right Ventricle Normal right ventricular cavity size. There is borderline right ventricular systolic function. There is a pacemaker wire seen in the right ventricle. Atria The left atrium is moderately dilated. The right atrium is mildly dilated. Aortic Valve There is severe calcification of the aortic valve. The peak aortic velocity is 5.65 m/s. The mean gradient is 72 mmHg. The aortic valve area is 0.60 cm2. There is trace (trivial) aortic valve regurgitation. Mitral Valve The mitral valve appears normal. There is trace mitral valve regurgitation. There is no mitral valve stenosis. Pulmonic Valve The pulmonic valve is likely normal. Tricuspid Valve Normal tricuspid valve structure. There is no tricuspid valve regurgitation. The right ventricular systolic pressure is 41 mmHg. Moderately elevated right atrial pressure. Mild pulmonary hypertension is present. Great Vessels There is mild dilatation of the ascending aorta measuring 3.60 cm. The visualized portions of the pulmonary artery and branches are normal. Venous The inferior vena cava is dilated and collapses greater than 50% with inspiration. Pericardium/Pleural There is no evidence of pericardial effusion. Prior Study Comparison Changes noted compared to prior study dated: 09/07/2023. Aortic stenosis has progressed to very severe category. Measurements 2D Linear Measurements IVSd: 0.88 0.6-0.9/0.6-1.0 cm LVIDd: 4.71 3.9-5.3/4.2-5.9 cm LVIDd Index: 2.79 2.4-3.2/2.2-3.1 cm/m2 LVIDs: 2.59 2.0-3.6 cm LVPWd: 0.86 0.7-1.1 cm LA Diam: 3.90 2.7-3.8/3.0-4.0 cm LAIDs Index: 2.31 1.5-2.3 cm/m2 LV Mass: 171.05 67-162/88-224 g LV Mass Index: 101.21 43-95/49-115 g/m2 LVOT Diam: 1.90 3.0+(-)1.3 cm 2D Systolic Function EF 4C: 65.20 >55% Mitral Valve MV Pk E: 1.04 MV PK A: 0.23 MV Decel Time: 307.00 E/A: 4.60 E'Lateral: 11.40 E'Medial: 5.87 E/E' Med: 17.70 E/E' Lat: 9.10 PHT: 90.00 MVA PHT: 2.44 Decel Pierce: 3.38 Aortic Valve AoV Pk Trever: 5.65 AoV Mn Trever: 3.99 AoV VTI: 1.03 AoV Pk Grad: 128.00 Aov Mn Grad: 72.00 CHARLY Cont.VTI: 0.60 LVOT LVOT Pk Trever: 1.12 LVOT Mn Trever: 0.81 LVOT VTI: 0.22 LVOT Pk Grad: 5.00 LVOT Mn Grad: 3.00 LVOT Diam: 1.90 LVOT Area: 2.84 Diastolic Function MV Pk E: 1.04 MV Pk A: 0.23 E/A: 4.60 E'Medial: 5.87 E/E' Med: 17.70 E' Laterial: 11.40 E/E' Lat: 9.10 Right Ventricle TAPSE (mm): 15.20 TVS' Trever: 10.40 Tricuspid Valve TR Pk Trever: 2.89 TR Pk Grad: 33.00 RA Press: 8.00 RVSP: 41.00 Great Vessels Aorta Sinus of Valsalva: 2.61 2.0-3.5 cm Ao Asc: 3.60 2.1-3.4 cm Updated in Other Vendor System with Status of Final Tony Borrero MD electronically signed on 09/01/2024 3:45:49 PM with status of Final
--- NOTE | 2024-09-01 07:26 | PC.NURSE ---
This RN noticed that patient's IV infiltrated in BEKA while IV vanco infusing. IV was removed, extremity elevated and MD notified. Safia ordered Hyaluronate through pharmacy. Awaiting for med to come from pharmacy. Oncoming nurse, charge nurse aware.
[2024-09-01] MEDS: Tiotropium Bromide 2.5 mcg 1 PUFF/2.5 MCG MIST.INHAL 2 PUFF INHALE (07:37)
[2024-09-01] MEDS: Fluticasone/Vilanterol 200/25 BLST.W.DEV 1 PUFF INHALE (07:37)
[2024-09-01] MEDS: oxyCODONE HCl Immed Release 5 MG TABLET PO ×2 (08:28→20:34)
[2024-09-01] MEDS: Hyaluronidase, Human Recomb. 15 UNIT in 0.9 % Sodium Chloride 0.9 ML SUBCUT (08:55)
[2024-09-01] MEDS: Calcium + Vitamin D 250 MG TABLET PO (08:57)
--- NOTE | 2024-09-01 09:58 | MHC.CM.PN ---
EMR REVIEWED, PT REMAINS CONFUSED, CM TO REVISIT.
[2024-09-01 11:04] LABS: Glucose, Whole Blood 126 mg/dL (60-115)
--- NOTE | 2024-09-01 11:16 | P.PNIM_ITS ---
Subjective Subjective Date of Service: 09/01/24 Review of Systems Follow up fever pain to knee no nausea or vomiting Physical Exam 2 Vital Signs: Vital Signs: Last Vital Signs Temp 97.9 F 09/01/24 07:20 Pulse 60 09/01/24 07:38 Resp 17 09/01/24 07:38 BP 113/78 09/01/24 07:20 Pulse Ox 94 09/01/24 07:20 O2 Del Method Room Air 09/01/24 07:20 BMI result Body Mass Index 25.8 Appearing in no acute distress lung sounds are clear to auscultation heart regular rate rhythm, clear S1, S2 positive bowel sounds, abdomen is soft, nontender neuro patient is alert x3, no focal deficits Objective Data Active Medications Acetaminophen/Butalbital/Caffeine (Butalb/Acetamin/Caff 50/325/40 Tablet) 1 tab PO Q6H PRN PRN Reason: haeadace Albuterol Sulfate (Albuterol Sulfate (0.083%) 2.5 Mg/3 Ml Vial.Neb) 2.5 mg INHALE Q4H PRN PRN Reason: Shortness of Breath/Wheezing Albuterol Sulfate (Albuterol Sulfate 90 Mcg 8 Gm Inhaler) 2 puff INHALE Q4H PRN PRN Reason: Wheezing Amitriptyline HCl (Amitriptyline Hcl 25 Mg Tablet) 25 mg PO BEDTIME [facility] Last Admin: 08/31/24 20:46 Dose: 25 mg Documented By: TRACI Amlodipine Besylate (Amlodipine Besylate 5 Mg Tablet) 5 mg PO DAILY [facility]; Protocol Last Admin: 09/01/24 08:58 Dose: 5 mg Documented By: ELOY Bisacodyl (Bisacodyl 5 Mg Tablet.Dr) 10 mg PO BEDTIME [facility] Last Admin: 08/31/24 20:46 Dose: 10 mg Documented By: TRACI Calcium Carbonate/Cholecalciferol (Calcium + Vitamin D 250 Mg Tablet) 250 mg PO DAILY [facility] Last Admin: 09/01/24 08:57 Dose: 250 mg Documented By: ELOY Clopidogrel Bisulfate (Clopidogrel Bisulfate 75 Mg Tablet) 75 mg PO DAILY [facility] Last Admin: 09/01/24 08:57 Dose: 75 mg Documented By: ELOY Cyanocobalamin (Cyanocobalamin (Vitamin B-12) 1,000 Mcg Tablet) 1,000 mcg PO DAILY [facility] Last Admin: 09/01/24 08:57 Dose: 1,000 mcg Documented By: ELOY Dextrose (Dextrose 50 % 25 Gm/50 Ml Syringe) 25 gm IVPUSH Q15M PRN; Protocol PRN Reason: per Hypoglycemia Standing Ord. Enoxaparin Sodium (Enoxaparin Sodium 40 Mg/0.4 Ml Syringe) 40 mg SUBCUT Q24H [facility] Last Admin: 09/01/24 08:57 Dose: 40 mg Documented By: ELOY Fluticasone/Vilanterol (Fluticasone/Vilanterol 200/25 Blst.W.Dev) 1 puff INHALE RDAILY [facility] Last Admin: 09/01/24 07:37 Dose: 1 puff Documented By: CHARLOTTE Folic Acid (Folic Acid 1 Mg Tablet) 1 mg PO DAILY [facility] Last Admin: 09/01/24 08:57 Dose: 1 mg Documented By: ELOY Gabapentin (Gabapentin 100 Mg Capsule) 100 mg PO TID [facility] Last Admin: 09/01/24 08:57 Dose: 100 mg Documented By: ELOY Glucose (Glucose Gel 15 Gm Gel..Gram.) 15 gm PO Q15M PRN; Protocol PRN Reason: per Hypoglycemia Standing Ord. Hydrochlorothiazide (Hydrochlorothiazide 12.5 Mg Tablet) 12.5 mg PO DAILY [facility]; Protocol Last Admin: 09/01/24 08:57 Dose: 12.5 mg Documented By: ELOY Cefepime HCl (Maxipime) 2 gm in 50 mls @ 100 mls/hr IV Q8H [facility] Last Infusion: 09/01/24 03:44 Dose: Infused Documented By: TRACI Vancomycin HCl 1,000 mg/ (Sodium Chloride) 270 mls @ 270 mls/hr IV Q12H [facility] Last Admin: 09/01/24 05:58 Dose: 270 mls/hr Documented By: TRACI Insulin Human Lispro (Insulin Lispro 100 Unit/Ml 3 Ml Vial) 0 unit SUBCUT QIDACHS [facility]; Protocol Last Admin: 09/01/24 08:45 Dose: Not Given Documented By: ELOY Non-Admin Reason: No Insulin Coverage Montelukast Sodium (Montelukast Sodium 10 Mg Tablet) 10 mg PO BEDTIME [facility] Last Admin: 08/31/24 20:46 Dose: 10 mg Documented By: TRACI Morphine Sulfate (Morphine Sulfate 2 Mg/Ml Cartridge) 2 mg IVPUSH Q4H PRN; Protocol PRN Reason: Pain, Severe (Pain Scale 7-10) Last Admin: 08/30/24 16:30 Dose: 2 mg Documented By: HEIDY Oxycodone HCl (Oxycodone Hcl Immed Release 5 Mg Tablet) 5 mg PO Q4H PRN PRN Reason: Pain, Moderate(Pain Scale 4-6) Last Admin: 09/01/24 08:28 Dose: 5 mg Documented By: LUX Pharmacy Consult (Consult Rx Vancomycin Dosing) 1 each MISCELLANE DAILY PRN PRN Reason: Consult order Sertraline HCl (Sertraline Hcl 50 Mg Tablet) 50 mg PO DAILY [facility] Last Admin: 09/01/24 08:57 Dose: 50 mg Documented By: ELOY Tamsulosin HCl (Tamsulosin Hcl 0.4 Mg Capsule) 0.4 mg PO DAILY [facility] Last Admin: 09/01/24 08:57 Dose: 0.4 mg Documented By: ELOY Tiotropium [place] (Tiotropium [place] 2.5 Mcg 1 Puff/2.5 Mcg Mist.Inhal) 2 puff INHALE DAILY [facility] Last Admin: 09/01/24 07:37 Dose: 2 puff Documented By: CHARLOTTE Labs 08/29/24 23:02 09/01/24 06:24 Labs: Laboratory Results - last 24 hr 08/30/24 08/31/24 08/31/24 07:19 11:25 14:53 Hold Purple Top Estim Creat Clear Calc Estimated GFR POC Glucose 116 H Random Vancomycin 10.2 L Lyme Disease DNA (PCR) TNP 08/31/24 08/31/24 09/01/24 15:41 19:55 06:24 Hold Purple Top Estim Creat Clear Calc 89.9 Estimated GFR > 60 POC Glucose 93 113 Random Vancomycin Lyme Disease DNA (PCR) 09/01/24 09/01/24 09/01/24 06:30 06:53 11:01 Hold Purple Top SEE NOTE Estim Creat Clear Calc Estimated GFR POC Glucose 127 H 126 H Random Vancomycin Lyme Disease DNA (PCR) Microbiology Microbiology Results: Microbiology 08/30/24 10:52 Throat Culture - Final Throat No Group A Beta-hemolytic Streptococci isolated. 08/30/24 01:54 Blood Culture - Preliminary Blood - Venous No growth after 48 hours. 08/30/24 01:21 Blood Culture - Preliminary Blood - Venous No growth after 48 hours. 08/30/24 01:21 Blood Culture - Preliminary Blood - Venous No growth after 48 hours. Assessment and Plan (1) Fever: Status: Acute Plan 63-year-old female with a past medical history significant for history of endocarditis in 2004 requiring bioprosthetic aortic valve replacement at [facility], currently with aortic stenosis and and discussion for possible TAVR, pacemaker secondary to complete heart block, moderate COPD, MARY on CPAP, type 2 diabetes, mood disorder, hypertension and hyperlipidemia, who presented to the ED due to feeling unwell for the past 2-3 days, has been bed-bound. The patient is a very poor historian and symptoms have been difficult to assess. Urinary retention Flomax added Insert Haskins catheter 08/30/24 will attempt voiding trial Fall overnight 08/31/24 found on her knees leaning on bed no loc or acute injury PT rec STR for rehab Fever of unknown origin. Resolved concern for endocarditis vs covid causing symptoms WBC 10.9, no tachycardia or tachypnea, 1 rectal temp measured of 101.4, lactic acid normal, blood cultures x2 pending, no sepsis chest x-ray, ua, procalcitonin, throat cx negative head CT and C-spine negative VQ scan pending, bilateral venous doppler negative tick panel, lyme pending RPP pos for covid, on precautions blood cx neg for 24 hrs echo ordered continue vancomycin and cefepime Left knee x-ray with small effusion ortho consult> no evidence of septic joint, outpatient follow up if pain or swelling continues, rec RICE likely not cause of fever Generalized weakness patient has been bed-bound normal CPK fall precautions Moderate COPD without acute exacerbation no wheezing on exam continue home inhalers MARY CPAP at bedtime Type 2 diabetes hold p.o. diabetes meds sliding scale insulin diabetic diet Mood disorder continue home meds HTN continue home meds HLD continue home meds Full code VTE prophylaxis: Lovenox Quality Stroke Does the patient have a stroke diagnosis?: No VTE Prior VTE?: No VTE Risk Level:: Medical - moderate - high VTE Device Contraindication: Treatment Not Indicated VTE Drug Contraindication: N/A - Med Ordered
--- NOTE | 2024-09-01 11:23 | PC.NURSE ---
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 subq hyaluronidase given per apr, skin marked around sight and LUE elevated with pillow. IV access was obtained at 0940 and IV vanco was restarted at that time. vanco finished 1120.
[2024-09-01 16:32] LABS: Glucose, Whole Blood 109 mg/dL (60-115)
[2024-09-01 20:55] LABS: Glucose, Whole Blood 122 mg/dL (60-115)
--- NOTE | 2024-09-01 21:12 | HE.PHANOTE ---
VANCO DOSE ADJUSTMENT BASED ON SCR AND TROUGH OF 9 DOSE INCREASED TO 1250 Q 12H. NEXT LEVEL 09/03 @ 0900
[2024-09-02] VITALS (9 sets, daily range): BP systolic 100–120; BP diastolic 56–83; PULSE 61–95; RESP 16–34; TEMP 36.6–37.2; O2SAT 94–98
[2024-09-02 00:14] LABS: A. Phagocytphilium DNA,RT-PCR NOT DETECTED (NOT DETECTED); Babesia Microti DNA, RT-PCR NOT DETECTED (NOT DETECTED); Borrelia Miyamotoi,DNA RT-PCR NOT DETECTED (NOT DETECTED); E.Chaffeensis DNA RT-PCR NOT DETECTED (NOT DETECTED); Lyme(Borrelia ssp)DNA RT-PCR NOT DETECTED (NOT DETECTED)
[2024-09-02] MEDS: cefEPime HCl/D5W 2 GM/50 ML PIGGYBACK IV (03:31)
[2024-09-02 06:37] LABS: Creatinine Clr Calc Pharmacy 98.1; Estimated Glomerular Filt Rate > 60
[2024-09-02 07:55] LABS: Glucose, Whole Blood 113 mg/dL (60-115)
[2024-09-02] MEDS: Fluticasone/Vilanterol 200/25 BLST.W.DEV 1 PUFF INHALE (08:18)
[2024-09-02] MEDS: Tiotropium Bromide 2.5 mcg 1 PUFF/2.5 MCG MIST.INHAL 2 PUFF INHALE (08:18)
[2024-09-02] MEDS: Calcium + Vitamin D 250 MG TABLET PO (10:54)
--- NOTE | 2024-09-02 11:10 | HO.PM.IMPN ---
Subjective Subjective Date of Service: 09/02/24 <Winifred Romero NP - Last Filed: 09/02/24 14:46> 09/04/24 <Adam Martin MD - Last Filed: 09/04/24 07:54> Review of Systems Follow up fever pain to knee no nausea or vomiting <Winifred Romero NP - Last Filed: 09/02/24 14:46> Physical Exam Vital Signs: Vital Signs: Last Vital Signs Temp 98.7 F 09/02/24 07:27 Pulse 72 09/02/24 08:18 Resp 16 09/02/24 08:18 BP 109/59 L 09/02/24 10:54 Pulse Ox 94 09/02/24 07:27 O2 Del Method Room Air 09/02/24 07:27 BMI result Body Mass Index 25.8 <Winifred Romero NP - Last Filed: 09/02/24 14:46> Appearing in no acute distress lung sounds are clear to auscultation heart regular rate rhythm, clear S1, S2 positive bowel sounds, abdomen is soft, nontender neuro patient is alert x3, no focal deficits <Winifred Romero NP - Last Filed: 09/02/24 14:46> Objective Data Active Medications Acetaminophen (Acetaminophen 325 Mg Tablet) 975 mg PO Q6H PRN PRN Reason: Pain, Mild (Pain Scale 1-3) Acetaminophen/Butalbital/Caffeine (Butalb/Acetamin/Caff 50/325/40 Tablet) 1 tab PO Q6H PRN PRN Reason: haeadace Albuterol Sulfate (Albuterol Sulfate (0.083%) 2.5 Mg/3 Ml Vial.Neb) 2.5 mg INHALE Q4H PRN PRN Reason: Shortness of Breath/Wheezing Albuterol Sulfate (Albuterol Sulfate 90 Mcg 8 Gm Inhaler) 2 puff INHALE Q4H PRN PRN Reason: Wheezing Amitriptyline HCl (Amitriptyline Hcl 25 Mg Tablet) 25 mg PO BEDTIME [facility] Last Admin: 09/01/24 20:34 Dose: 25 mg Documented By: TRACI Amlodipine Besylate (Amlodipine Besylate 5 Mg Tablet) 5 mg PO DAILY [facility]; Protocol Last Admin: 09/02/24 10:54 Dose: 5 mg Documented By: LUCY Bisacodyl (Bisacodyl 5 Mg Tablet.Dr) 10 mg PO BEDTIME [facility] Last Admin: 09/01/24 20:34 Dose: 10 mg Documented By: LOI-RODRICKZELisa Calcium Carbonate/Cholecalciferol (Calcium + Vitamin D 250 Mg Tablet) 250 mg PO DAILY [facility] Last Admin: 09/02/24 10:54 Dose: 250 mg Documented By: LUCY Clopidogrel Bisulfate (Clopidogrel Bisulfate 75 Mg Tablet) 75 mg PO DAILY [facility] Last Admin: 09/02/24 10:54 Dose: 75 mg Documented By: LUCY Cyanocobalamin (Cyanocobalamin (Vitamin B-12) 1,000 Mcg Tablet) 1,000 mcg PO DAILY [facility] Last Admin: 09/02/24 10:50 Dose: 1,000 mcg Documented By: LUCY Dextrose (Dextrose 50 % 25 Gm/50 Ml Syringe) 25 gm IVPUSH Q15M PRN; Protocol PRN Reason: per Hypoglycemia Standing Ord. Enoxaparin Sodium (Enoxaparin Sodium 40 Mg/0.4 Ml Syringe) 40 mg SUBCUT Q24H [facility] Last Admin: 09/02/24 10:55 Dose: 40 mg Documented By: LUCY Fluticasone/Vilanterol (Fluticasone/Vilanterol 200/25 Blst.W.Dev) 1 puff INHALE RDAILY [facility] Last Admin: 09/02/24 08:18 Dose: 1 puff Documented By: CHI Folic Acid (Folic Acid 1 Mg Tablet) 1 mg PO DAILY [facility] Last Admin: 09/02/24 10:50 Dose: 1 mg Documented By: LUCY Gabapentin (Gabapentin 100 Mg Capsule) 100 mg PO TID [facility] Last Admin: 09/02/24 10:55 Dose: 100 mg Documented By: LUCY Glucose (Glucose Gel 15 Gm Gel..Gram.) 15 gm PO Q15M PRN; Protocol PRN Reason: per Hypoglycemia Standing Ord. Hydrochlorothiazide (Hydrochlorothiazide 12.5 Mg Tablet) 12.5 mg PO DAILY [facility]; Protocol Last Admin: 09/02/24 10:50 Dose: 12.5 mg Documented By: LUCY Insulin Human Lispro (Insulin Lispro 100 Unit/Ml 3 Ml Vial) 0 unit SUBCUT QIDACHS [facility]; Protocol Last Admin: 09/02/24 08:04 Dose: Not Given Documented By: LUCY Non-Admin Reason: No Insulin Coverage Montelukast Sodium (Montelukast Sodium 10 Mg Tablet) 10 mg PO BEDTIME [facility] Last Admin: 09/01/24 20:35 Dose: 10 mg Documented By: TRACI Morphine Sulfate (Morphine Sulfate 2 Mg/Ml Cartridge) 2 mg IVPUSH Q4H PRN; Protocol PRN Reason: Pain, Severe (Pain Scale 7-10) Last Admin: 08/30/24 16:30 Dose: 2 mg Documented By: HEIDY Oxycodone HCl (Oxycodone Hcl Immed Release 5 Mg Tablet) 5 mg PO Q4H PRN PRN Reason: Pain, Moderate(Pain Scale 4-6) Last Admin: 09/01/24 20:34 Dose: 5 mg Documented By: TRACI Pharmacy Consult (Consult Rx Vancomycin Dosing) 1 each MISCELLANE DAILY PRN PRN Reason: Consult order Sertraline HCl (Sertraline Hcl 50 Mg Tablet) 50 mg PO DAILY [facility] Last Admin: 09/02/24 10:54 Dose: 50 mg Documented By: LUCY Tamsulosin HCl (Tamsulosin Hcl 0.4 Mg Capsule) 0.4 mg PO DAILY [facility] Last Admin: 09/02/24 10:50 Dose: 0.4 mg Documented By: LUCY Tiotropium Melrose (Tiotropium Melrose 2.5 Mcg 1 Puff/2.5 Mcg Mist.Inhal) 2 puff INHALE DAILY [facility] Last Admin: 09/02/24 08:18 Dose: 2 puff Documented By: CHI <Winifred Romero NP - Last Filed: 09/02/24 14:46> Labs CBC & Chem 7: 09/02/24 11:29 09/02/24 11:29 <Winifred Romero NP - Last Filed: 09/02/24 14:46> Labs: Laboratory Results - last 24 hr 08/30/24 09/01/24 09/01/24 07:19 16:25 20:36 Estim Creat Clear Calc Estimated GFR POC Glucose 109 Random Vancomycin 9.0 L A.phagocytophil DNA PCR NOT DETECTED Babesia microti DNA PCR NOT DETECTED Borrelia sp DNA (PCR) NOT DETECTED Borrelia miyamotoi (PCR) NOT DETECTED E.chaffeensis DNA (PCR) NOT DETECTED Tick-borne Disease PCR SEE NOTE 09/01/24 09/02/24 09/02/24 20:46 05:43 07:51 Estim Creat Clear Calc 98.1 Estimated GFR > 60 POC Glucose 122 H 113 Random Vancomycin A.phagocytophil DNA PCR Babesia microti DNA PCR Borrelia sp DNA (PCR) Borrelia miyamotoi (PCR) E.chaffeensis DNA (PCR) Tick-borne Disease PCR <Winifred Romero NP - Last Filed: 09/02/24 14:46> Microbiology Microbiology Results: Microbiology 08/30/24 10:52 Throat Culture - Final Throat No Group A Beta-hemolytic Streptococci isolated. <Winifred Romero NP - Last Filed: 09/02/24 14:46> Assessment and Plan (1) Fever: Status: Acute <Winifred Romero NP - Last Filed: 09/02/24 14:46> Assessment and Plan: 63-year-old female with a past medical history significant for history of endocarditis in 2004 requiring bioprosthetic aortic valve replacement at [facility], currently with aortic stenosis and and discussion for possible TAVR, pacemaker secondary to complete heart block, moderate COPD, MARY on CPAP, type 2 diabetes, mood disorder, hypertension and hyperlipidemia, who presented to the ED due to feeling unwell for the past 2-3 days, has been bed-bound. The patient is a very poor historian and symptoms have been difficult to assess. Urinary retention Flomax added Insert Haskins catheter 08/30/24 attempted voiding trial following day Bladder scan today for greater than 500, reinsert Haskins catheter and Urology consultation Fever likely secondary to covid WBC 10.9, no tachycardia or tachypnea, 1 rectal temp measured of 101.4, lactic acid normal, blood cultures x2 pending, no sepsis chest x-ray neg for consolidation, ua neg, procalcitonin normal, throat cx negative head CT and C-spine negative VQ scan> low probability, bilateral venous doppler negative tick panel, lyme negative blood cx neg for 48 hrs echo severe calcification to aortic valve, normal EF s/p vancomycin and cefepime Fall overnight 08/31/24 found on her knees leaning on bed no loc or acute injury PT rec STR for rehab Left knee x-ray with small effusion ortho consult> no evidence of septic joint, outpatient follow up if pain or swelling continues, rec RICE likely not cause of fever Generalized weakness patient has been bed-bound normal CPK fall precautions Moderate COPD without acute exacerbation no wheezing on exam continue home inhalers MARY CPAP at bedtime Type 2 diabetes hold p.o. diabetes meds sliding scale insulin diabetic diet Mood disorder continue home meds HTN continue home meds HLD continue home meds Full code VTE prophylaxis: Lovenox Disposition. Physical therapy recommended short-term rehab however patient declined and will like to go home. Plan will be for patient to be discharged likely tomorrow after being seen by Urology <Winifred Romero NP - Last Filed: 09/02/24 14:46> Quality Stroke Does the patient have a stroke diagnosis?: No <Winifred Romero NP - Last Filed: 09/02/24 14:46> VTE Prior VTE?: No <Winifred Romero NP - Last Filed: 09/02/24 14:46> VTE Risk Level:: Medical - moderate - high <Winifred Romero NP - Last Filed: 09/02/24 14:46> VTE Device Contraindication: Treatment Not Indicated <Winifred Romero NP - Last Filed: 09/02/24 14:46> VTE Drug Contraindication: N/A - Med Ordered <Winifred Romero NP - Last Filed: 09/02/24 14:46>
[2024-09-02 11:39] LABS: Hematocrit 34.3 % (37.0-47.0); Hemoglobin 11.4 g/dl (12.0-16.0); Mean Corpuscular HGB Conc 33.2 g/dl (31.0-35.0); Mean Corpuscular Hemoglobin 27.7 pg (27.0-33.0); Mean Corpuscular Volume 83.5 fL (80.0-98.0); NRBC Abs Auto 0.000 X10*3/uL (0.0-0.012); NRBC Pct Auto 0.0 /100WBC (0.0-0.2); Platelet Count 381 X10*3/uL (160-400); Red Blood Count 4.11 X10*6/uL (4.20-5.50); White Blood Count 11.9 X10*3/uL (4.8-10.8)
[2024-09-02 11:43] LABS: Venous Blood Gas Refer to POC result
[2024-09-02 11:44] LABS: VBG HCO3 29 mmol/L (22-26); VBG O2 % Saturation 96.0 %
[2024-09-02 11:48] LABS: Ammonia 32 umol/L (13-55)
[2024-09-02 11:55] LABS: Alanine Aminotransferase 9 U/L (0-31); Albumin Level 3.1 g/dL (3.5-5.0); Alkaline Phosphatase 74 U/L (39-117); Anion Gap 11 (12-20); Aspartate Amino Transferase 24 U/L (5-31); Blood Urea Nitrogen 12 mg/dL (9-16); Calcium 9.1 mg/dL (8.4-10.2); Carbon Dioxide 26 mmol/L (22-29); Chloride 102 mmol/L (96-108); Creatinine Clr Calc Pharmacy 98.1; Estimated Glomerular Filt Rate > 60; Magnesium 1.9 mg/dL (1.6-2.6); Potassium 3.4 mmol/L (3.3-5.1); Sodium 136 mmol/L (135-145); Total Protein 6.5 g/dL (6.5-8.0)
[2024-09-02 11:57] LABS: Glucose, Whole Blood 150 mg/dL (60-115)
--- NOTE | 2024-09-02 14:04 | MHC.CM.PN ---
Addendum entered by Jane Bar 09/02/24 14:10: At pts baseline she lives at home, her son Clint helps her, she has [employer] care 47hrs/wk and uses a walker. PCP: Dr. Ting Hampton Original Note: This CM met with pt with the assistance of a automotive parts interpreter, pt confused, alert only to self, unable to answer questions being asked by this CM. Pt covid+. This CM placed a call to pts sister/HCP Marta, per Marta she would like this CM to speak with the pts alternate HCP/Clint/pts son ([phone]). Marta requested to speak with this CM in person when they arrive. Pts family present at bedside to meet with this CM and discuss PT recommendation for STR. Pt would prefer to go home, but pts son believes STR would be a good thing for his mother. Family requested to discuss it together at this time. STR referrals placed via [facility], awaiting bed offer, many facilities are not currently accepting covid+ patients.
[2024-09-02 16:21] LABS: Glucose, Whole Blood 114 mg/dL (60-115)
[2024-09-02 21:24] LABS: Glucose, Whole Blood 151 mg/dL (60-115)
[2024-09-03 03:03] VITALS: BP 103/63; PULSE 65; RESP 18; TEMP 36.7; O2SAT 95
--- NOTE | 2024-09-03 07:38 | P.DS_ITS ---
DS: Providers Provider Date of Service: 09/03/24 Date of admission: 08/30/24 04:39 Date of discharge: 09/03/24 Primary care physician: Ting Hampton MD Consults: 08/30/24 06:38 Consult to Infectious Diseases Routine Consulting Provider: [facility] Reason for consultation: den MAYES endocarditis Has provider been notified: No 08/30/24 14:59 Consult to Orthopedics Routine Consulting Provider: [facility] Reason for consultation: knee effusion 09/02/24 14:45 Consult to Urology Routine Consulting Provider: [facility] Reason for consultation: urinary retension DS: Diagnosis Discharge Diagnosis (1) Fever: Status: Acute DS: Summary Hospital Course Hospital Course: History and physical as per admitting provider. Patient is a 63-year-old female with a past medical history significant for history of endocarditis in 2004 requiring bioprosthetic aortic valve replacement at [facility], currently with aortic stenosis and and discussion for possible TAVR, pacemaker secondary to complete heart block, moderate COPD, MARY on CPAP, type 2 diabetes, mood disorder, hypertension and hyperlipidemia, who presented to the ED due to feeling unwell for the past 2-3 days, has been bed-bound. The patient is a very poor historian and symptoms have been difficult to assess. In the ED the provider checked a rectal temp which was 101.4. The patient does reports she has been feeling feverish at home but has not checked her temperature. She describes sweats, chills and overall body aches, mostly in her hips. She reports yesterday that she could not walk, reason is unknown, pain versus weakness. She also has a chronic cough which she reports is at baseline and related to her asthma. She has been using an inhaler for this which has been helpful. She denies any urinary symptoms, abdominal pain, sore throat, rash or wounds. 63-year-old woman treated for fever initially unknown but found to have COVID. Had multiple diagnostic studies including chest x-ray, urinalysis, procalcitonin, throat culture, tick panel, all negative. Blood cultures were have remained negative and patient has no longer had any fevers. She was empirically treated with vancomycin and cefepime. Urinary retention. Haskins catheter was inserted on 08/30/2024, had for 2 days, attempted voiding trial but patient remained unable to void therefore Haskins catheter was reinserted. Patient should follow up with Urology in 2 weeks for voiding trial Fall. Patient had a fall overnight 08/31/2024, she was found on her knees leading in the bed. No loss of consciousness or acute injury. She was seen evaluated by physical therapy recommended short-term rehab however patient adamantly declined and patient's family was willing to take her home. She will have physical therapy coming into her house. Left knee effusion. Small effusion noted. Seen and evaluated by Orthopedic surgery team, found no evidence of septic joint. Patient can follow up with Orthopedic surgery as needed. Supportive care. Moderate COPD without exacerbation. Continue home inhalers Obstructive sleep apnea. CPAP at bedtime Diabetes mellitus type 2. Continue home medications Mental health. Continue home medications Hypertension. Continue home medications Hyperlipidemia. Continue home medications Time Attestation Discharge Coordination Time (in mins): 45 Quality: Safe Use of Opioids Does Pt have an Active Cancer Diagnosis on the Problem List?: No Quality: Stroke Does the patient have a stroke diagnosis?: No Physical Exam Vital Signs: Vital Signs: Last Vital Signs Temp 98.1 F 09/03/24 03:03 Pulse 65 09/03/24 03:03 Resp 18 09/03/24 03:03 BP 103/63 09/03/24 03:03 Pulse Ox 95 09/03/24 03:03 O2 Del Method Room Air 09/03/24 03:03 BMI result Body Mass Index 25.8 Appearing in no acute distress head is normocephalic atraumatic eyes pupils are PERRLA sclera is anicteric mouth throat mucous membranes are intact and moist neck is supple no lymphadenopathy, no JVD noted lung sounds are clear to auscultation heart regular rate rhythm, clear S1, S2 positive bowel sounds, abdomen is soft, nontender neuro patient is alert x3, no focal deficits DS: Data Data Completed and Pending Completed studies during hospitalization [Text1]: Procedures Assistance with Respiratory Ventilation, Less than 24 Consecutive Hours, Continuous Positive Airway Pressure (10/18/23) Labs on day of discharge: Laboratory Results - last 24 hr 09/02/24 09/02/24 09/02/24 07:51 11:29 11:38 WBC 11.9 H RBC 4.11 L D Hgb 11.4 L D Hct 34.3 L D MCV 83.5 MCH 27.7 MCHC 33.2 RDW 14.2 Plt Count 381 MPV 9.1 L Absolute Nucleated RBC 0.000 Nucleated RBC % (auto) 0.0 VBG pH 7.48 H VBG pCO2 38 VBG pO2 80 VBG HCO3 29 H VBG O2 Saturation 96.0 VBG Base Excess 5.7 Sodium 136 Potassium 3.4 Chloride 102 Carbon Dioxide 26 Anion Gap 11 L BUN 12 Creatinine 0.55 Estim Creat Clear Calc 98.1 Estimated GFR > 60 POC Glucose 113 Random Glucose 139 H Calcium 9.1 D Magnesium 1.9 Total Bilirubin 0.6 Direct Bilirubin 0.3 AST 24 ALT 9 Alkaline Phosphatase 74 Ammonia 32 Total Protein 6.5 Albumin 3.1 L 09/02/24 09/02/24 09/02/24 11:40 16:16 21:18 WBC RBC Hgb Hct MCV MCH MCHC RDW Plt Count MPV Absolute Nucleated RBC Nucleated RBC % (auto) VBG pH VBG pCO2 VBG pO2 VBG HCO3 VBG O2 Saturation VBG Base Excess Sodium Potassium Chloride Carbon Dioxide Anion Gap BUN Creatinine Estim Creat Clear Calc Estimated GFR POC Glucose 150 H 114 151 H Random Glucose Calcium Magnesium Total Bilirubin Direct Bilirubin AST ALT Alkaline Phosphatase Ammonia Total Protein Albumin Preliminary micro results at discharge 08/30/24 01:54 Blood Culture - Preliminary Blood - Venous No growth after 48 hours. 08/30/24 01:21 Blood Culture - Preliminary Blood - Venous No growth after 48 hours. 08/30/24 01:21 Blood Culture - Preliminary Blood - Venous No growth after 48 hours. Discharge Plan Discharge Anticipated Discharge Date/Time: 09/03/24 07:34 Patient Disposition: Home Health Service Discharge Diagnosis: Fever secondary to COVID Fall Generalized weakness Urinary retention Referrals: Paradise Abbott MD [Physician, Urology] - 2 Weeks Referral Note: Haskins catheter in place due to urinary retention [facility] [Physician, Primary Care] - 1 Week Discharge Medications: New tamsulosin 0.4 mg Capsule 0.4 mg PO DAILY Qty: 30 0RF Continued acetaminophen 650 mg tablet extended release 650 mg PO Q8H PRN (Reason: for pain) Qty: 90 3RF tiotropium bromide [Spiriva with HandiHaler] 18 mcg capsule, w/inhalation device 1 cap inhalation DAILY melatonin 5 mg tablet 5 mg PO BEDTIME PRN (Reason: insomnia) oaulprjjfo-yovfueymunnwe-japw 50-325-40 mg tablet 1 tab PO Q6H PRN (Reason: haeadace) Qty: 20 0RF montelukast 10 mg tablet 10 mg PO BEDTIME bisacodyl 5 mg tablet,delayed release (DR/EC) 10 mg PO BEDTIME gabapentin 100 mg capsule 100 mg PO TID sertraline 50 mg tablet 50 mg PO DAILY calcium carbonate-vitamin D3 600 mg-10 mcg (400 unit) tablet 1 tab PO DAILY hydrochlorothiazide 12.5 mg tablet 12.5 mg PO DAILY clopidogrel 75 mg tablet 75 mg PO DAILY amitriptyline 25 mg tablet 25 mg PO BEDTIME folic acid 1 mg tablet 1 mg PO DAILY cyanocobalamin (vitamin B-12) 1,000 mcg tablet 1,000 mcg PO DAILY albuterol sulfate 2.5 mg /3 mL (0.083 %) solution for nebulization 2.5 mg inhalation Q4-6H PRN (Reason: Shortness Of Breath/Wheezing) albuterol sulfate [Ventolin HFA] 90 mcg/actuation Hfa Aerosol Inhaler 2 puff INHALATION Q4H PRN (Reason: Wheezing) amlodipine 5 mg tablet 5 mg PO DAILY fluticasone propion-salmeterol [Advair Diskus] 500-50 mcg/dose blister with device 1 ea INHALATION BID Discharge Orders: Discharge Order (Routine); Ordered 09/03/24 Ordered By: Winifred Romero Diet: Advance to usual diet Activity on Discharge: As tolerated Stand Alone Forms: Patient Portal Discharge page Print Language: Uzbek Care Plan Goals: He will be sent home with a Haskins catheter due to urinary retention. Please follow up in the urology office in 2 weeks Health Concerns: Fever secondary to COVID Fall Generalized weakness Urinary retention Plan of Treatment: Follow up with primary care provider as needed Take all medications as prescribed Assessment: See discharge summary
--- NOTE | 2024-09-03 07:42 | P.F2F_ITS ---
Service Date Service Date: 09/03/24 Encounter Date of encounter: 09/03/24 Reasons for Services Signs and symptoms assessed: COVID Weakness Urinary retention Reason for retirement: CV/CP assess and/or care and other (Haskins catheter) Reason for physical therapy: home safety and mobility Homebound: Leaving the home is medically contraindicated at this time without the asist of a device and/or another person due th the listed conditions above and below. Reason homebound: unsteady gait / fall risk and weakness related to hospital stay Certification: Based on the above findings, I certify that this patient is confined to the home and needs intermittent retirement care, physical therapy and/or speech therapy, or continues to need occupational therapy. The patient is under my care, and I have initiated the establishment of the plan of care. The patient will be followed by a physician who will periodically review the plan of care. Time Spent With Patient Time: Total time managing care of this patient today ____ minutes.
[2024-09-03 08:00] VITALS: BP 102/65; PULSE 60; RESP 17; TEMP 36.5; O2SAT 95
[2024-09-03 08:02] LABS: Glucose, Whole Blood 99 mg/dL (60-115)
[2024-09-03] MEDS: Fluticasone/Vilanterol 200/25 BLST.W.DEV 1 PUFF INHALE (08:10)
[2024-09-03] MEDS: Tiotropium Bromide 2.5 mcg 1 PUFF/2.5 MCG MIST.INHAL 2 PUFF INHALE (08:10)
[2024-09-03 08:13] VITALS: PULSE 61; RESP 18; O2SAT 93
--- NOTE | 2024-09-03 08:37 | PC.RT ---
pt has not worn cpap in more than 3 days. therefore cpap will be dc'd per policy
--- NOTE | 2024-09-03 08:42 | P.CDIM_ITS ---
PROVIDER RESPONSE TEXT: To clarify, the appropriate diagnosis supported by the clinical indicators: After study Endocarditis ruled out QUERY TEXT: PHYSICIAN'S DOCUMENTATION REQUEST Date of Query: 09/02/2024 09:25 AM EDT Patient Name: Ting Keith Admit Date: 08/30/2024 Dear Winifred Romero CARDIOVASCULAR DISEASE SPECIALIST, A review of the medical record indicates additional documentation may be needed. Please review below and update the documentation accordingly. Clinical Indicators: Progress notes 09/01/24 - Patient with a History of Endocarditis requiring bioprosthetic aortic valve replacement. Fever of unknown origin. Resolved. Continue vancomycin and cefepime. Based on the above, are there any further specifics to the noted Endocarditis for this admission? Endocarditis Acute or subacute, bacterial, mitral, tricuspid, aortic or other, etc. After study Endocarditis ruled out Other (explain) Clinically unable to determine (explain) Thank you, Chelsey Wood, CCS, CDIS Use of terms such as suspected, likely, concern for, or probable (associated with a specific diagnosis that is being evaluated, monitored, or treated as if it exists) are acceptable and can be coded in the inpatient setting, when documented at the time of discharge. Please use your independent medical judgment in providing your response. THIS QUERY IS PART OF THE PERMANENT MEDICAL RECORD
--- NOTE | 2024-09-03 09:28 | W.MHC.F2F ---
Service Date Service Date: 09/03/24 Encounter Date of encounter: 09/03/24 Reasons for Services Signs and symptoms assessed: Covid fever knee pain urinary retension Reason for prison: CV/CP assess and/or care and other (Haskins catheter) Homebound: Leaving the home is medically contraindicated at this time without the asist of a device and/or another person due th the listed conditions above and below. Reason homebound: unsteady gait / fall risk and weakness related to hospital stay Certification: Based on the above findings, I certify that this patient is confined to the home and needs intermittent prison care, physical therapy and/or speech therapy, or continues to need occupational therapy. The patient is under my care, and I have initiated the establishment of the plan of care. The patient will be followed by a physician who will periodically review the plan of care. Time Spent With Patient Time: Total time managing care of this patient today ____ minutes.
[2024-09-03] MEDS: Calcium + Vitamin D 250 MG TABLET PO (11:11)
[2024-09-03 11:27] VITALS: BP 100/63; PULSE 61; RESP 17; TEMP 36.4; O2SAT 97
--- NOTE | 2024-09-03 12:40 | MHC.CM.PN ---
Pt has been medically cleared for DC, she will go home via family transport, and have home care services from [facility].
[2024-09-09 08:23] LABS: Glucose, Whole Blood 152 mg/dL (60-115)
== END 2024-09-03 12:15 | disposition home health service (06) | DRG 137 ==
LOC: HO.ED 08-30 05:43 → HO.EDOVER 08-30 06:15 → HO.S3 08-30 10:48 → HO.IMC 08-30 14:16
PROVIDERS: Admitting Provider Physician Assistant; Emergency Provider Emergency Medicine; PCP Internal Medicine; Visit Provider Nurse Practitioner Acute Care
DX: U07.1 COVID-19 (principal); I44.2 Atrioventricular block, complete; Z95.0 Presence of cardiac pacemaker; Z95.2 Presence of prosthetic heart valve; J44.9 Chronic obstructive pulmonary disease, unspecified; E11.9 Type 2 diabetes mellitus without complications; F39 Unspecified mood [affective] disorder; E78.5 Hyperlipidemia, unspecified; R33.9 Retention of urine, unspecified; Z87.891 Personal history of nicotine dependence; Z79.02 Long term (current) use of antithrombotics/antiplatelets; Z79.899 Other long term (current) drug therapy
CPT/HCPCS: 36415; 70450; 71046; 72125; 73030; 73562; 73564; 73630; 78580; 80048; 80076; 80202; 80307; 81001; 81003; 82140; 82550; 82565; 82803; 82947; 83605; 83735; 83880; 84145; 84484; 85025; 85027; 85652; 86140; 87040; 87070; 87468; 87469; 87478; 87484; 87633; 87798; 93005; 93306; 93971; 97162; 99285; A9540; J0692; J1650; J2270; J2359; J3374; J3473; J7120; Q9957

== ENCOUNTER → 2024-08-29 21:56 | Outpatient (BNV) | payer MEDICAID, SELFPAY | PROVIDERS: Emergency Provider Emergency Medicine; PCP Dentist General Practice; Visit Provider Radiology Diagnostic Radiology | DX: M54.2 Cervicalgia (principal); S09.90XA Unspecified injury of head, initial encounter; M25.642 Stiffness of left hand, not elsewhere classified; R07.9 Chest pain, unspecified; M25.511 Pain in right shoulder; M79.672 Pain in left foot | CPT/HCPCS: 70450; 71046; 72125; 73030; 73564; 73630 ==

== ENCOUNTER → 2024-08-29 21:58 | Outpatient (BNV) | payer MEDICAID, SELFPAY | PROVIDERS: Admitting Provider Physician Assistant; Emergency Provider Emergency Medicine; PCP Dentist General Practice; Visit Provider Internal Medicine Cardiovascular Disease | DX: I48.91 Unspecified atrial fibrillation (principal) | CPT/HCPCS: 93010 ==

== ENCOUNTER 2024-08-30 04:39 | Outpatient (BNV) | payer MEDICAID, SELFPAY | END 2024-08-30 07:48 | PROVIDERS: Admitting Provider Physician Assistant; Emergency Provider Emergency Medicine; PCP Dentist General Practice; Visit Provider Specialist | DX: R06.02 Shortness of breath (principal) | CPT/HCPCS: 78580; 93971 ==

== ENCOUNTER 2024-08-30 04:39 | Outpatient (BNV) | payer MEDICAID, SELFPAY | END 2024-09-01 07:00 | PROVIDERS: Admitting Provider Physician Assistant; Emergency Provider Emergency Medicine; PCP Internal Medicine; Visit Provider Internal Medicine Cardiovascular Disease | DX: I35.0 Nonrheumatic aortic (valve) stenosis (principal); I27.20 Pulmonary hypertension, unspecified; I35.8 Other nonrheumatic aortic valve disorders; I51.7 Cardiomegaly | CPT/HCPCS: 93306 ==

== ENCOUNTER 2024-08-30 04:39 | Outpatient (BNV) | payer MEDICAID, SELFPAY | END 2024-08-31 08:20 | PROVIDERS: Admitting Provider Physician Assistant; Emergency Provider Emergency Medicine; PCP Dentist General Practice; Visit Provider Radiology Diagnostic Radiology | DX: M79.662 Pain in left lower leg (principal); R50.9 Fever, unspecified | CPT/HCPCS: 71046; 93971 ==

== ENCOUNTER → 2024-08-30 04:39 | Outpatient (BNV) | payer MEDICAID, SELFPAY | PROVIDERS: Admitting Provider Physician Assistant; Emergency Provider Emergency Medicine; PCP Dentist General Practice; Visit Provider Physician Assistant | DX: M25.462 Effusion, left knee (principal) | CPT/HCPCS: 99231 ==

== ENCOUNTER → 2024-08-30 04:39 | Outpatient (BNV) | payer MEDICAID, SELFPAY | PROVIDERS: Admitting Provider Physician Assistant; Emergency Provider Emergency Medicine; PCP Dentist General Practice; Visit Provider Nurse Practitioner Acute Care | DX: R50.9 Fever, unspecified (principal) | CPT/HCPCS: 99223; 99232; 99239; 99499; G0180 ==

== ENCOUNTER → 2024-08-30 04:39 | Outpatient (BNV) | payer MEDICAID, SELFPAY | PROVIDERS: Admitting Provider Physician Assistant; Emergency Provider Emergency Medicine; PCP Dentist General Practice; Visit Provider Internal Medicine | DX: R01.1 Cardiac murmur, unspecified (principal); I35.9 Nonrheumatic aortic valve disorder, unspecified; Z95.0 Presence of cardiac pacemaker; U07.1 COVID-19 | CPT/HCPCS: 99222 ==

== ENCOUNTER → 2024-09-29 09:25 | Outpatient (BNVA) | payer MEDICAID, SELFPAY | PROVIDERS: PCP Internal Medicine; Visit Provider Urology | DX: N32.81 Overactive bladder (principal) | CPT/HCPCS: 51700; 51798 ==

== ENCOUNTER 2024-10-16 12:24 | Emergency (ER) | payer MEDICAID, SELFPAY ==
--- NOTE | ~2024-10-16 | XR_ITS ---
EXAMINATION: XR CHEST CLINICAL INFORMATION: dyspnea, diminished lung sounds COMPARISON: August 31, 2024 TECHNIQUE: Frontal view of the chest was obtained. FINDINGS: Again seen are sternotomy wires. There is a right-sided generator with single lead extending to the right ventricle. Lungs are clear and well aerated. Heart size is within normal limits. XR/XR chest 1V IMPRESSION: No acute disease. Electronically signed by: Elgin Sales MD 10/16/2024 02:00 PM EDT
[2024-10-16 12:38] VITALS: BP 129/67; PULSE 62; RESP 19; TEMP 37.1; O2SAT 95; BMI 31.7
--- NOTE | 2024-10-16 12:44 | ECG_ITS ---
Test Reason : SOB Blood Pressure : */* mmHG Vent. Rate : 64 BPM Atrial Rate : 31 BPM P-R Int : * ms QRS Dur : 158 ms QT Int : 588 ms P-R-T Axes : * -74 82 degrees QTcB Int : 606 ms Ventricular-paced rhythm with occasional Premature ventricular complexes Abnormal ECG When compared with ECG of 29-Aug-2024 22:06, No significant changes seen Referred By: Generic ED Physician Electronically Signed By: TONNY HANLEY MD
--- NOTE | 2024-10-16 12:54 | ED.GENADULT ---
HPI - General Adult General Chief complaint: Dyspnea Stated complaint: SOB W/CRACKLES HEARD PER EMS Time Seen by Provider: 10/16/24 12:31 Source: patient Mode of arrival: EMS Limitations: language barrier History of Present Illness ED Provider: Dr. Mendoza HPI narrative: This is a 63-year-old female history of COPD, sleep apnea, diabetes, pacemaker due to heart block presented hospital today for evaluation of shortness of breath. Patient is also endorsing coughing. It started all of a sudden this morning. She denies any chest pain. She states this is slightly her asthma acting up. Denies any recent illness denies any fever. She does endorse coughing. Denies any abdominal pain however does endorse some nausea. Related Data Home Medications ?Medication ?Instructions ?Recorded ?Confirmed amitriptyline 25 mg tablet 25 mg PO BEDTIME 07/03/22 08/30/24 bisacodyl 5 mg tablet,delayed 10 mg PO BEDTIME 07/03/22 08/30/24 release calcium 600 mg (as 1 tab PO DAILY 07/03/22 08/30/24 carbonate)-vitamin D3 10 mcg (400 unit) tablet clopidogrel 75 mg tablet 75 mg PO DAILY 07/03/22 08/30/24 cyanocobalamin (vitamin B-12) 1,000 mcg PO DAILY 07/03/22 08/30/24 1,000 mcg tablet folic acid 1 mg tablet 1 mg PO DAILY 07/03/22 08/30/24 gabapentin 100 mg capsule 100 mg PO TID 07/03/22 08/30/24 hydrochlorothiazide 12.5 mg tablet 12.5 mg PO DAILY 07/03/22 08/30/24 montelukast 10 mg tablet 10 mg PO BEDTIME 07/03/22 08/30/24 sertraline 50 mg tablet 50 mg PO DAILY 07/03/22 08/30/24 melatonin 5 mg tablet 5 mg PO BEDTIME PRN insomnia 03/14/23 08/30/24 tiotropium bromide 18 mcg capsule 1 cap inhalation DAILY 03/14/23 08/30/24 with inhalation device (Spiriva with HandiHaler) albuterol sulfate 2.5 mg/3 mL 2.5 mg inhalation Q4-6H PRN 05/21/23 08/30/24 (0.083 %) solution for nebulization Shortness Of Breath/Wheezing albuterol sulfate 90 mcg/actuation 2 puff inhalation Q4H PRN Wheezing 05/21/23 08/30/24 aerosol inhaler (Ventolin HFA) amlodipine 5 mg tablet 5 mg PO DAILY 08/03/23 08/30/24 fluticasone 500 mcg-salmeterol 50 1 ea inhalation BID 10/18/23 08/30/24 mcg/dose blistr powdr for inhalation (Advair Diskus) Previous Rx's ?Medication ?Instructions ?Recorded acetaminophen 650 mg 650 mg PO Q8H PRN for pain #90 tabs 01/04/23 tablet,extended release ndhudzihtd-ixeokruzmdddz-nycefrkr 1 tab PO Q6H PRN haeadace #20 tabs 08/03/24 50 mg-325 mg-40 mg tablet tamsulosin 0.4 mg capsule 0.4 mg PO BID 90 days #180 caps 09/29/24 azithromycin 250 mg tablet See Rx Instructions PO .COMPLEX #6 10/16/24 tabs prednisone 20 mg tablet 40 mg (2 x 20 mg) PO DAILY 5 days 10/16/24 #10 tabs Allergies Allergy/AdvReac Type Severity Reaction Status Date / Time latex (LATEX) Allergy Severe DIFFICULTY Verified 10/16/24 12:42 BREATHING aspirin (Aspirin) Allergy Intermediate ITCHING, Verified 10/16/24 12:42 itchiness ciprofloxacin (From CIPRO) Allergy Intermediate DIAPHORESIS Verified 10/16/24 12:42 /PURITIS Penicillins (PENICILLINS) Allergy Unknown UNKNOWN Verified 10/16/24 12:42 HEMALATHA Inhibitors (HEMALATHA AdvReac Intermediate COUGH Verified 10/16/24 12:42 INHIBITORS) Review of Systems Review of Systems: Pertinent review of systems as mentioned in HPI. All other system otherwise negative. [facility] Past Medical History [facility] Narrative: Medical history as mentioned in HPI Medical History (Updated 10/16/24 @ 16:07 by Elmira Mendoza DO) Aortic valve disease Heart murmur COVID Swelling of left wrist Eosinophilia Severe aortic stenosis COPD (chronic obstructive pulmonary disease) Pacemaker Asthma with exacerbation Smoking Restrictive airway disease MARY (obstructive sleep apnea) MARY on CPAP Reactive airways dysfunction syndrome Rheumatoid arthritis Fibromyalgia GERD (gastroesophageal reflux disease) MARY (obstructive sleep apnea) Aortic valve endocarditis COPD (chronic obstructive pulmonary disease) COPD exacerbation Overactive bladder Bronchitis Allergic rhinitis COPD (chronic obstructive pulmonary disease) Asthma Hx of cardiac pacemaker Hx of migraines Hx of coronary artery disease History of urinary incontinence Hx of essential hypertension History of depression Hx of drug abuse Hx of hyperlipidemia Hx of allergic rhinitis History of enuresis Hx of osteoarthritis Hx of pilonidal cyst Family history of GERD History of arthritis Hx of diabetes mellitus Surgical History History of surgical removal of pilonidal cyst Hx of bilateral cataract extraction Hx of colonoscopy History of cystoscopy History of hysterectomy Hx of aortic valve replacement Hx laparoscopic cholecystectomy History of epidermal inclusion cyst excision Social History Social History Household Members: Unknown / Unable to assess Household Members Other:: son Housing: Apartment Do you presently have visiting nurse or other home services: Yes ([employer]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) Alcohol intake: never Comment: refusing alarms Patient Tobacco Use Status: Former Tobacco user Tobacco use type: Cigarette Cigarettes Per Day: 3 e-Cigarette/Vaping Use: Never Used Second Hand Smoke Exposure: No Substance Use Type: Former Substance User Advance Directives: Yes Advance Directives on File: Yes Advance Directives Date on File: 11/08/21 service: No Current occupational status: unemployed and disabled Physical Exam ED Exam Exam: General: Appears to be actively coughing, audible wheezing Head: Normacephalic, atraumatic ENT: oral mucosa moist, neck supple, no tracheal deviation Cardiovascular: regular rate, regular rhythm, no murmurs, rubbing, gallops, midline surgical scar appreciated, pacemaker in the left upper chest Respiratory: Bilateral wheezing and crackles appreciated on exam Gastrointestinal: Soft, non distended, non tender, non guarding Extremities: No limb pain or swelling, no calf tenderness Neurological: Awake and alert, no facial droop noted Skin: Warm and dry Psychiatric: Appropriate mood and thoughts Vital Signs: Vital Signs - 24 hr 10/16/24 12:38 10/16/24 13:23 10/16/24 15:40 Temperature 98.7 F 97.7 F Pulse Rate 62 61 60 Respiratory Rate 19 25 H 20 Blood Pressure 129/67 127/71 Pulse Oximetry 95 96 Oxygen Delivery Method Nasal Cannula Room Air BMI result Body Mass Index 31.7 Medications Administered Discontinued Medications Generic Name Dose Route Start Last Admin Trade Name Freq PRN Reason Stop Dose Admin Albuterol Sulfate 5 mg/ 0 mg 10/16/24 13:14 10/16/24 13:25 Albuterol/Ipratropium 3 ml INHALE 10/16/24 13:15 1 each ONCE ONE Administration Magnesium Sulfate 2 gm in 50 mls @ 150 mls/hr 10/16/24 13:03 10/16/24 14:09 Magnesium Sulfate/H2o IV 10/16/24 13:22 Infused ONCE ONE Infusion Methylprednisolone Sodium Succinate 125 mg 10/16/24 13:03 10/16/24 13:49 Methylprednisolone Sod Succ 125 Mg/2 Ml Vial IVPUSH 10/16/24 13:04 125 mg ONCE ONE Administration Potassium Bicarbonate 25 meq 10/16/24 15:10 10/16/24 15:54 Potassium Bicarbonate/Cit Ac 25 Meq Tablet.Eff PO 10/16/24 15:11 25 meq ONCE ONE Administration Medical Decision Making Medical Decision Making [facility] Narrative: This is a 63-year-old female history of COPD, pacemaker implantation for heart block, diabetes presented hospital today for increased coughing and shortness of breath. Patient has been admitted multiple times in the past for COPD exacerbation on chart review. Recently back on 08/02/2024. Previous inpatient stage charts were reviewed. She appears to be wheezing. I suspect this is likely COPD exacerbation may be a component of CHF. We will obtain a chest x-ray to evaluate for any signs of pneumonia versus pleural effusion. Given concerns for possible pneumonia. We will obtain CBC CMP lactic acid, blood cultures for the patient as well. I suspect this is COPD exacerbation secondary to fluid in her lungs. COVID flu and RSV swab will be obtained. We will plan to give patient a DuoNeb treatment here. We will also plan to give some IV methylprednisone for the patient. Also plan to give patient a dose of IV magnesium. We will closely monitor patient on a laboratory monitor with pulse ox. On reassessment patient is feeling much better at this time. No longer actively coughing and wheezing audibly. She still have some minor wheezing on exam. Patient's lab work did not show any sign of significant abnormality chest x-ray is clear at this time. At this time I do not think patient is having sepsis or any signs of bacterial infection. She may have a viral infection that worsening her COPD. Patient was ambulated with pulse ox setting at 91- 92%. This is appropriate for someone we will COPD. We will plan to discharge patient home with Z-Pedro and steroid course. Differential Diagnosis Differential Diagnoses: The differential diagnosis associated with the presentation includes Respiratory failure, COPD exacerbation, pneumonia, CHF, pleural effusion, viral pneumonia Admission/Observation Consideration of admission/observation: Escalation of care including admission/observation considered Lab Data MDM Lab Attestation statement: I reviewed the patient's lab results. 10/16/24 13:29 10/16/24 13:29 Labs: Lab Results 10/16/24 10/16/24 Range/Units 13:29 13:33 WBC 8.3 (4.8-10.8) X10*3/uL RBC 4.68 (4.20-5.50) X10*6/uL Hgb 12.9 (12.0-16.0) g/dl Hct 38.5 (37.0-47.0) % MCV 82.3 (80.0-98.0) fL MCH 27.6 (27.0-33.0) pg MCHC 33.5 (31.0-35.0) g/dl RDW 14.1 (11.0-16.0) % Plt Count 420 H (160-400) X10*3/uL MPV 9.0 L (9.4-12.3) fL Immature Gran % (Auto) 0.2 (0.0-0.4) % Neut % (Auto) 73.4 H (45-73) % Lymph % (Auto) 13.0 L (20-40) % [place] % (Auto) 7.3 (2-11) % Eos % (Auto) 5.6 H (0-4) % Baso % (Auto) 0.5 (0-2) % Lymph # (Auto) 1.1 L (1.2-4.9) X10*3/uL [place] # (Auto) 0.6 (0.1-1.2) X10*3/uL Eos # (Auto) 0.5 H (0.0-0.4) X10*3/uL Baso # (Auto) 0.0 (0.0-0.2) X10*3/uL Abs Immat Gran (auto) 0.02 (0.00-0.03) X10*3/uL Absolute Neuts (auto) 6.1 (2.0-8.3) x10*3/uL Absolute Nucleated RBC 0.000 (0.0-0.012) X10*3/uL Nucleated RBC % (auto) 0.0 (0.0-0.2) /100WBC PT 13.2 H (10.9-12.4) SEC INR 1.2 H (0.9-1.1) VBG pH 7.45 H (7.32-7.43) VBG pCO2 45 mmHg VBG pO2 69 mmHg VBG HCO3 32 H (22-26) mmol/L VBG O2 Saturation 92.0 % VBG Base Excess 7.1 mmol/L Sodium 139 (135-145) mmol/L Potassium 3.1 L (3.3-5.1) mmol/L Chloride 99 (96-108) mmol/L Carbon Dioxide 29 (22-29) mmol/L Anion Gap 14 (12-20) BUN 9 (9-16) mg/dL Creatinine 0.55 (0.5-1.4) mg/dL Estim Creat Clear Calc 92.2 Estimated GFR > 60 Random Glucose 125 H (60-115) mg/dL Lactic Acid 1.0 (0.5-2.0) mmol/L Calcium 9.9 D (8.4-10.2) mg/dL Total Bilirubin 0.5 (0.0-1.0) mg/dL Direct Bilirubin 0.2 (0.0-0.5) mg/dL AST 22 (5-31) U/L ALT 10 (0-31) U/L Alkaline Phosphatase 85 (39-117) U/L Troponin I High Sens 8.8 (<3.5-17.0) ng/L B-Natriuretic Peptide 77 (<100) pg/mL Total Protein 7.5 (6.5-8.0) g/dL Albumin 3.9 (3.5-5.0) g/dL Influenza Type A (PCR) NEGATIVE (Negative) Influenza Type B (PCR) NEGATIVE (Negative) RSV RNA Qual (PCR) NEGATIVE (Negative) SARS-CoV-2 RNA (RT-PCR) NEGATIVE (Negative) Independent Interpretation I performed an independent interpretation of an: EKG and Plain X-Ray Radiology Impression Discussion of test interpretation with radiology: I have reviewed the radiologist's reading. External Record Review External record reviewed: Inpatient record Prescription Management I considered prescription management with: Antibiotic Prednisone and azithromycin Chronic Conditions COPD Discharge Plan Discharge Clinical Impression: COPD (chronic obstructive pulmonary disease) Qualifiers: COPD type: COPD with acute exacerbation Qualified Code(s): J44.1 - Chronic obstructive pulmonary disease with (acute) exacerbation Patient Disposition: Home, Self-Care Prescriptions: New prednisone 20 mg tablet 40 mg PO DAILY 5 Days Qty: 10 0RF azithromycin 250 mg tablet See Rx Instructions .ROUTE .COMPLEX Qty: 6 0RF Rx Instructions: For 250 mg dose pack: take 500 mg today (day 1), then 250 mg for 4 days (days 2-5) No Action acetaminophen 650 mg tablet extended release 650 mg PO Q8H PRN (Reason: for pain) Qty: 90 3RF tiotropium bromide [Spiriva with HandiHaler] 18 mcg capsule, w/inhalation device 1 cap inhalation DAILY melatonin 5 mg tablet 5 mg PO BEDTIME PRN (Reason: insomnia) bvxncfatut-pmpkkkciggvlj-cvnl 50-325-40 mg tablet 1 tab PO Q6H PRN (Reason: haeadace) Qty: 20 0RF montelukast 10 mg tablet 10 mg PO BEDTIME bisacodyl 5 mg tablet,delayed release (DR/EC) 10 mg PO BEDTIME gabapentin 100 mg capsule 100 mg PO TID sertraline 50 mg tablet 50 mg PO DAILY calcium carbonate-vitamin D3 600 mg-10 mcg (400 unit) tablet 1 tab PO DAILY hydrochlorothiazide 12.5 mg tablet 12.5 mg PO DAILY clopidogrel 75 mg tablet 75 mg PO DAILY amitriptyline 25 mg tablet 25 mg PO BEDTIME folic acid 1 mg tablet 1 mg PO DAILY cyanocobalamin (vitamin B-12) 1,000 mcg tablet 1,000 mcg PO DAILY albuterol sulfate 2.5 mg /3 mL (0.083 %) solution for nebulization 2.5 mg inhalation Q4-6H PRN (Reason: Shortness Of Breath/Wheezing) albuterol sulfate [Ventolin HFA] 90 mcg/actuation Hfa Aerosol Inhaler 2 puff INHALATION Q4H PRN (Reason: Wheezing) amlodipine 5 mg tablet 5 mg PO DAILY fluticasone propion-salmeterol [Advair Diskus] 500-50 mcg/dose blister with device 1 ea INHALATION BID tamsulosin 0.4 mg capsule 0.4 mg PO BID 90 Days Qty: 180 0RF Print Language: Albanian
[2024-10-16 13:23] VITALS: PULSE 61; RESP 25; O2SAT 98
[2024-10-16] MEDS: Albuterol Sulfate 5 MG, Albuterol/Iprat 2.5/0.5MG 3 ML 3 ML INHALE (13:25)
--- NOTE | 2024-10-16 13:27 | PC.NURSE ---
RT at bedside administering updraft at this time. Family member (daughter) arrived to bedside visiting. Patient is sitting upright, coughing occasionally. Labs being drawn at this time, IV access & medications to also be obtained. Care ongoing by this RN.
[2024-10-16 13:37] LABS: VBG HCO3 32 mmol/L (22-26); VBG O2 % Saturation 92.0 %
[2024-10-16 13:37] LABS: MANUAL DIFF FLAG NO
[2024-10-16 13:38] LABS: Hematocrit 38.5 % (37.0-47.0); Hemoglobin 12.9 g/dl (12.0-16.0); Imm Gran Abs Auto 0.02 X10*3/uL (0.00-0.03); Imm Gran Pct Auto 0.2 % (0.0-0.4); Lymphocytes Absolute Auto 1.1 X10*3/uL (1.2-4.9); Mean Corpuscular HGB Conc 33.5 g/dl (31.0-35.0); Mean Corpuscular Hemoglobin 27.6 pg (27.0-33.0); Mean Corpuscular Volume 82.3 fL (80.0-98.0); NRBC Abs Auto 0.000 X10*3/uL (0.0-0.012); NRBC Pct Auto 0.0 /100WBC (0.0-0.2); Platelet Count 420 X10*3/uL (160-400); Red Blood Count 4.68 X10*6/uL (4.20-5.50); Venous Blood Gas Refer to POC result; White Blood Count 8.3 X10*3/uL (4.8-10.8)
[2024-10-16 13:48] LABS: INTERNATIONAL NORM RATIO 1.2 (0.9-1.1); Prothrombin Time 13.2 SEC (10.9-12.4)
[2024-10-16] MEDS: Magnesium Sulfate/H2O 2 GM/50 ML PIGGYBACK IV (13:49)
[2024-10-16 13:53] LABS: Anion Gap 14 (12-20); Blood Urea Nitrogen 9 mg/dL (9-16); Calcium 9.9 mg/dL (8.4-10.2); Carbon Dioxide 29 mmol/L (22-29); Chloride 99 mmol/L (96-108); Creatinine Clr Calc Pharmacy 92.2; Estimated Glomerular Filt Rate > 60; Potassium 3.1 mmol/L (3.3-5.1); Sodium 139 mmol/L (135-145)
[2024-10-16 13:55] LABS: Alanine Aminotransferase 10 U/L (0-31); Albumin Level 3.9 g/dL (3.5-5.0); Alkaline Phosphatase 85 U/L (39-117); Aspartate Amino Transferase 22 U/L (5-31); Total Protein 7.5 g/dL (6.5-8.0)
[2024-10-16 14:00] LABS: B Type Natriuretic Peptide 77 pg/mL (<100)
[2024-10-16 14:02] LABS: Troponin-I High Sensitivity 8.8 ng/L (<3.5-17.0)
[2024-10-16 14:17] LABS: Resp Syncy Virus RNA Qual PCR NEGATIVE (Negative); SARS COV2 PCR INHOUSE NEGATIVE (Negative)
--- OUTSIDE RECORDS SUMMARY | 2024-10-16 14:29 | XMS_ITS ---
Author Organization [employer] Address [address] [place] [address] [address] [place] [address] Care Team Providers Care Autobody Technician Name Role Phone Ting Packer MD Primary Care Provide r Fabian Perkins RN Unavailable [phone] Kelly Andres Unavailable CM Complex Status:Outreach In Progress (Enrolling) Start date:08/04/2024 Enrollment reason:ADT Feed Overview ED- Pt went to [facility] ED on 08/01/24. Case Team Name Relationship Phone Fabian Perkins RN(Responsible Staff) Registered [facility] tran [phone] Continued Care and Services Coordination
[2024-10-16 15:40] VITALS: BP 127/71; PULSE 60; RESP 20; TEMP 36.5; O2SAT 96
[2024-10-16] MEDS: Potassium Bicarbonate/Cit AC 25 MEQ TABLET.EFF PO (15:54)
[2024-10-16 16:00] VITALS: BP 127/81; PULSE 67; RESP 18; TEMP 36.7; O2SAT 92
[2024-10-16 16:21] VITALS: BP 127/81; PULSE 67; RESP 18; TEMP 36.7; O2SAT 92
== END 2024-10-16 16:21 | disposition home or self-care (01) ==
PROVIDERS: Emergency Provider Student in an Organized Health Care Education/Training Program; PCP Internal Medicine
DX: J44.1 Chronic obstructive pulmonary disease with (acute) exacerbation (principal); R06.02 Shortness of breath; R05.9 Cough, unspecified; R11.0 Nausea; R94.31 Abnormal electrocardiogram [ECG] [EKG]; Z87.891 Personal history of nicotine dependence; Z03.818 Encounter for observation for suspected exposure to other biological agents ruled out; Z79.899 Other long term (current) drug therapy
CPT/HCPCS: 36415; 71045; 80048; 80076; 82803; 83605; 83880; 84484; 85025; 85610; 87040; 87637; 93005; 94640; 96365; 96375; 99284; J2919; J3475

== ENCOUNTER → 2024-10-16 12:44 | Outpatient (BNV) | payer MEDICAID, SELFPAY | PROVIDERS: Emergency Provider Student in an Organized Health Care Education/Training Program; PCP Internal Medicine; Visit Provider Radiology Diagnostic Radiology | DX: R06.00 Dyspnea, unspecified (principal); R06.89 Other abnormalities of breathing | CPT/HCPCS: 71045 ==

== ENCOUNTER → 2024-10-16 12:44 | Outpatient (BNV) | payer MEDICAID, SELFPAY | PROVIDERS: Emergency Provider Student in an Organized Health Care Education/Training Program; PCP Internal Medicine; Visit Provider Internal Medicine Cardiovascular Disease | DX: I49.3 Ventricular premature depolarization (principal) | CPT/HCPCS: 93010 ==

== ENCOUNTER 2024-11-20 11:43 | Outpatient (AMB) | payer MEDICAID, SELFPAY ==
[2024-11-20 11:46] VITALS: BP 122/82; PULSE 68; O2SAT 96; BMI 31.5
--- NOTE | 2024-11-20 11:46 | A.OFFVIS_ITS ---
Vital Signs 11/20/24 11:46 Height 4 ft 11 in Weight 156 lb BMI 31.5 BP 122/82 Blood Pressure Location Lt brachial Position Sitting Pulse 68 Pulse Source Pulse Oximeter Pulse Oximetry (%) 96 Oxygen Delivery Method Room Air Intake Visit Reasons: asthma Medicaid Service Coordinator Required: No Allergies latex (LATEX) Allergy (Severe, Verified 11/20/24 11:48) DIFFICULTY BREATHING aspirin (Aspirin) Allergy (Intermediate, Verified 11/20/24 11:48) ITCHING, itchiness ciprofloxacin (From CIPRO) Allergy (Intermediate, Verified 11/20/24 11:48) DIAPHORESIS/PURITIS Penicillins (PENICILLINS) Allergy (Unknown, Verified 11/20/24 11:48) UNKNOWN HEMALATHA Inhibitors (HEMALATHA INHIBITORS) Adverse Reaction (Intermediate, Verified 11/20/24 11:48) COUGH Medication List - Last Reconciled 11/20/24 by Wally Simpson MD acetaminophen ER 650 mg PO Q8H PRN albuterol sulfate 90 mcg/actuation (Ventolin HFA) 2 puffs inhalation Q4H PRN albuterol sulfate 2.5 mg inhalation Q4-6H PRN amitriptyline 25 mg PO BEDTIME amlodipine 5 mg PO DAILY bisacodyl 10 mg PO BEDTIME axdzylmgwb-rbraypxeitwtv-tclh 50-325-40 mg 1 tab PO Q6H PRN calcium carbonate-vitamin D3 600 mg-10 mcg (400 unit) 1 tab PO DAILY clopidogrel 75 mg PO DAILY cyanocobalamin (vitamin B-12) 1,000 mcg PO DAILY fluticasone propion-salmeterol 500-50 mcg/dose (Advair Diskus) 1 ea inhalation BID folic acid 1 mg PO DAILY gabapentin 100 mg PO TID hydrochlorothiazide 12.5 mg PO DAILY melatonin 5 mg PO BEDTIME PRN montelukast 10 mg PO BEDTIME sertraline 50 mg PO DAILY tamsulosin 0.4 mg PO BID 90 days tiotropium bromide (Spiriva with HandiHaler) 1 cap inhalation DAILY Do you need a note to return to daycare/school/sports/work: No HPI HPI asthma: Details: This 63 years old female is here for pulmonary follow-up. She remains short of breath and usual which gets worse after a bout of cough. She has ongoing chronic cough due to reactive airways. She is somewhat confused about her medications. Now her son lives with her who is BELT LOOP MACHINE OPERATOR and manages her medications. This patient is being seen by customer service clerk actively and, she may need replacement of the aortic valve ( TVAR ) But she was told that because of her ongoing cough and respiratory problems she can not undergo the procedure at present. This patient has been treated for chronic bronchial asthma/COPD and reactive airways which cause cough all the times. She is on maximum medical treatment and in addition she was started on biologic treatment. Had some improvement with the biologic injections but she stopped going for the injections, Reason ? She just does not know why she stopped going. [facility] Medical History (Updated 11/20/24 @ 12:33 by Wally Simpson MD) Aortic valve disease Heart murmur COVID Swelling of left wrist Eosinophilia Severe aortic stenosis COPD (chronic obstructive pulmonary disease) Pacemaker Asthma with exacerbation Smoking Restrictive airway disease MARY (obstructive sleep apnea) MARY on CPAP Reactive airways dysfunction syndrome Rheumatoid arthritis Fibromyalgia GERD (gastroesophageal reflux disease) MARY (obstructive sleep apnea) Aortic valve endocarditis COPD (chronic obstructive pulmonary disease) COPD exacerbation Overactive bladder Bronchitis Allergic rhinitis COPD (chronic obstructive pulmonary disease) Asthma Hx of cardiac pacemaker Hx of migraines Hx of coronary artery disease History of urinary incontinence Hx of essential hypertension History of depression Hx of drug abuse Hx of hyperlipidemia Hx of allergic rhinitis History of enuresis Hx of osteoarthritis Hx of pilonidal cyst Family history of GERD History of arthritis Hx of diabetes mellitus Surgical History History of surgical removal of pilonidal cyst Hx of bilateral cataract extraction Hx of colonoscopy History of cystoscopy History of hysterectomy Hx of aortic valve replacement Hx laparoscopic cholecystectomy History of epidermal inclusion cyst excision Social History Household Members: Unknown / Unable to assess Household Members Other:: son Housing: Apartment Do you presently have visiting nurse or other home services: Yes (BELT LOOP MACHINE OPERATOR everyday) Alcohol intake: never Comment: refusing alarms Patient Tobacco Use Status: Former Tobacco user Tobacco use type: Cigarette Cigarettes Per Day: 3 e-Cigarette/Vaping Use: Never Used Second Hand Smoke Exposure: No Substance Use Type: Former Substance User Advance Directives Date on File: 11/08/21 service: No Current occupational status: unemployed and disabled Review of Systems Const All systems reviewed & are unremarkable except as noted in HPI and below Eyes Reports no additional complaints ENT Reports nasal congestion (ON A DAILY BASIS) and Reports post nasal drip (OFF AND ON) Card Denies irregular heart rhythm and Denies leg edema Resp Reports as per HPI GI Reports no additional complaints Reports no additional complaints Musc Reports back pain and Reports arthralgias Skin/Breast Reports system reviewed and no additional complaints, except as documented Neuro Reports no additional complaints Psych Reports no additional complaints Endo Reports other (BEING TREATED FOR DIABETES MELLITUS) Physical Exam Vital Signs: Last Vital Signs Pulse 68 11/20/24 11:46 BP 122/82 11/20/24 11:46 Pulse Ox 96 11/20/24 11:46 Oxygen Delivery Method Room Air 11/20/24 11:46 BMI result Body Mass Index 31.5 Const General: comfortable (But slow and weak), no acute distress, alert and awake Orientation/consciousness: patient oriented x3 HEENT Head: Yes normal to inspection General nose exam: No nasal polyps present and No nasal discharge present Face and sinus: Yes sinuses nontender Mouth: oropharynx normal Throat: Yes posterior oropharynx normal Eyes General: appearance normal, both eyes and all related structures Neck Neck: Yes normal visual inspection, Yes no lymphadenopathy, Yes trachea midline and Yes no JVD Thyroid: Thyroid normal Chest Chest palpation & inspection: abnormal inspection of the chest (PATIENT HAS MIDLINE SCAR FROM PREVIOUS SURGERY), normal palpation of entire chest wall and no tenderness Resp Other: PERCUSSION NOTE RESONANT, BREATH SOUNDS ARE DISTANT, WITH PROLONGED EXPIRATORY PHASE. SHE DOES HAVE SCATTERED BILATERAL WHEEZES , Cardio Palpation: normal PMI Rate: regular rate Rhythm: regular rhythm Heart sounds: no gallops and Murmur heart sound present (LOUD SYSTOLIC MURMUR ) Peripheral pulses: Peripheral pulses 2+ throughout GI Palpation (GI): Soft to palpation, nontender, No hepatosplenomegaly present and no masses Auscultation: normal bowel sounds Back/Spine/Pelvis Thoracic/Lumbar Spine: thoracic and lumbar spine normal to inspection Skin General skin exam: no rashes or lesions noted Neuro General: patient oriented x3 and no focal motor deficits Cranial nerves: Yes CN's II-XII intact bilaterally Extrem Other: HER LEFT HAND AND WRIST ARE SWOLLEN AND TENDER TO TOUCH. SUGGESTIVE OF AN ACUTE SPRAIN OR POSSIBLE CELLULITIS. General: Yes normal to inspection, Yes no clubbing, cyanosis or edema and Yes no calf tenderness Psych Appearance: grossly normal Speech and movement: Normal speech and movement present Results Reviewed Results Reviewed: COURSE OF HOSPITALIZATION AT [facility] IN AUGUST OF THIS YEAR IS REVIEWED. Assessment & Plan Assessment & Plan (1) COPD (chronic obstructive pulmonary disease): Comment: THIS PATIENT HAS CHRONIC OBSTRUCTIVE PULMONARY DISORDER, RELATED TO HER SMOKING SHE HAS HISTORY OF REPEATED ACUTE EXACERBATIONS AND FREQUENT HOSPITALIZATIONS. ALSO HAS EOSINOPHILIC BRONCHIAL ASTHMA . SHE WAS STARTED ON BIOLOGIC TREATMENT BUT SHE GAVE UP AND STOPPED GOING FOR THE INJECTION. TODAY ON AUSCULTATION SHE DOES HAVE CONTINUOUS INSPIRATORY AND EXPIRATORY WHEEZES. C/W LOW-GRADE ACUTE EXACERBATION OF ASTHMA/COPD Code(s): J44.9 - Chronic obstructive pulmonary disease, unspecified Category: Medical Qualifiers: COPD type: COPD with acute exacerbation Qualified Code(s): J44.1 - Chronic obstructive pulmonary disease with (acute) exacerbation Plan: I DISCUSSED THE WHOLE TREATMENT PLAN AND THE LIST OF HER MEDS WITH HER SON AND ADVISED HIM TO SUPERVISE. CONTINUE ADVAIR 500-50 1 INHALATION B.I.D.. SPIRIVA HANDIHALER 1 INHALATION DAILY. IPRATROPIUM-ALBUTEROL IN SOLUTION IN THE NEBULIZER Q 6 HOURS P.R.N. SHE NEEDS A NEW NEBULIZER WHICH IS BEING ORDERED. I WILL START HER ON PREDNISONE 5 MG DAILY, BECAUSE SHE HAS RILEY OING LOW-GRADE EXACERBATION. SHE IS ALSO ON MONTELUKAST 10 MG DAILY WHICH SHE WILL CONTINUE (2) MARY (obstructive sleep apnea): Comment: PATIENT DOES HAVE HISTORY OF OBSTRUCTIVE SLEEP APNEA BUT SHE STOPPED USING CPAP MANY YEARS AGO. CLAIMS THAT AT THIS TIME SHE IS SLEEPING OKAY. Code(s): G47.33 - Obstructive sleep apnea (adult) (pediatric) Category: Medical Plan: NO NEED OF STARTING CPAP THERAPY (3) Restrictive airway disease: Comment: THIS PATIENT HAS MODERATELY SEVERE RESTRICTIVE LUNG DISORDER, IT IS PARTLY CONTRIBUTED BY HER PREVIOUS STERNOTOMY AND HEALED SCAR FROM CARDIAC SURGERY Code(s): J98.4 - Other disorders of lung Category: Medical Plan: SHE IS ADVISED TO DO DEEP BREATHING EXERCISES BUT IT IS DIFFICULT FOR HER TO TAKE DEEP BREATHS (4) Reactive airways dysfunction syndrome: Comment: THIS PATIENT HAS ASTHMA/COPD DISORDER, WITH FREQUENT BOUTS OF COUGH AND WHEEZING. CONTINUES TO HAVE COUGH ON TALKING OR ANY EXERTION AND ALSO CONTINUES TO HAVE BILATERAL WHEEZES. SHE HAD IMPROVED WHEN SHE WAS ON THE BIOLOGIC TREATMENT, BUT THEN SHE STOPPED DUE TO SOME CONFUSION . Code(s): J68.3 - Other acute and subacute respiratory conditions due to chemicals, gases, fumes and vapors Category: Medical Plan: MEDICATIONS UNDER ASTHMA/COPD WILL LOOK INTO IF WE CAN START HER ON BIOLOGIC TREATMENT AGAIN. FOR THE TIME BEING PREDNISONE 5 MG DAILY IS ORDERED, TO OVERCOME HER ONGOING LOW-GRADE INFLAMMATORY PROCESS. (5) Allergic rhinitis: Comment: SHE HAS CHRONIC ALLERGIC RHINITIS WITH POSTNASAL DISCHARGE CONTRIBUTING TO HER COUGH. RELATIVELY CONTROLLED AT THIS TIME BUT SHE HAS TENDENCY TO HAVE RECURRENT EXACERBATIONS OF NASAL CONGESTION. Code(s): J30.9 - Allergic rhinitis, unspecified Category: Medical Plan: CONTINUE MONTELUKAST 10 MG DAILY Medications: New prednisone 5 mg PO DAILY 30 tabs 4RF COPD EXCERBATION 30 days Coding Level of Care Code Est Pt Level 4 (69115) Diagnoses COPD (chronic obstructive pulmonary disease) J44.1 COPD type: COPD with acute exacerbation MARY (obstructive sleep apnea) G47.33 Restrictive airway disease J98.4 Reactive airways dysfunction syndrome J68.3 Allergic rhinitis J30.9
--- OUTSIDE RECORDS SUMMARY | 2024-11-20 16:34 | XMS_ITS | Encounter Summary ---
Author Organization [employer] Address [address] [facility] 7t [place] [address] Care Team Providers Care Pantry Chef Name Role Phone Ting Packer MD Primary Care Provide r Fabian Perkins RN Unavailable [phone] Kelly Andres Unavailable Reason for Visit * Reason Onset Date Comments Referral 10/09/2024 Encounter Details Date Type Department Care Team (Late st Contact Info) Description 10/09/2024 Telephone [facility] MEDICINE [address] [place], [place] [phone] Ting Packer MD [address] [place], [place] [phone] Referral Social History Tobacco Use Types Packs/Day Years [...] housing situation today? I have luisana mccall 08/19/[address] you li ve. Do you have problems with any of the following? None of the above 08/19/2024 Food Insecurity Answer Date Recorded Within the past 12 months, y ou worried that your food would run out before you got money to buy more: Sometimes True 2024 Within the past 12 months,th e food you bought just didn't last and you didn't have enough money to get more: Sometimes True 08/19/2024 Transportation Answer Date Recorded In the past 12 months, has l ack of transportation kept you from medical appts, meetings, work or from getting things needed for daily living? Yes, it has kept me from medical appointments or getting medications. 08/19/2024 Utilities Answer Date Recorded In the past 12 months, has t he electric, gas, oil or water company threatened to shut off services in your home? No 08/19/2024 Depression Answer Date Recorded Patient Health Questionnaire-2 Score 1 09/18/2023 Internet Access Answer Date Recorded Internet Access Q1 Yes 08/19/2024 Internet Access Q2 Not on file 08/19/2024 Comments Unknown Sex and Gender Information Value Date Recorded Sex Assigned at Female 12/26/2021 10:14 AM EDT Legal Sex Female 10:14 AM EDT Gender Identity Female 12/26/2021 10:14 AM EDT Sexual Orientation Straight 12/26/2021 10 :14 AM EDT documented as of this encounter Miscellaneous Notes * Telephone Encounter - Marycruz Novak RN - 10/09/2024 2:34 PM EDT Noted pt. Last saw [facility] cardiac surgery on 03/05/24. Office is requesting updated referral with Dx. I35. Please place if agreeable * Telephone Encounter - Jet Parisi - 10/09/2024 10:50 AM EDT TC from pt requesting new referral : DATE: 10/20/24 TIME: 10:20 AM Address: [address] [place] [address] [place] [address] Visits: 14 Facility Name: [facility] Type of Specialist: Cardiac Surgery DX: [id number] Provider : Dr Justin Avelar Provider NPI : [id number] Facility Phone # : [phone] Fax #: [phone] documented in this encounter Plan of Treatment Not on file documented as of this encounter Visit Diagnoses Not on filedocumented in this encounter Additional Health Concerns Assessment Noted Time PHQ-9 Depression Total Score: 3 09/18/19 24 2:01 PM EDT documented as of this encounter Care Teams Pantry Chef Relationship Specialty Start Date End Date Ting Packer MD [address] [place] [address] PCP - General Family Medicine 02/13/19 Fabian Perkins, RN [address] [place] [address] Registered Nurse Family Medicine 08/04/24 Kelly Andres 08/04/24 Martha Mast Manager PowerProduct Safety Engineer 07/20/23 Alyssia ABARCAA 09/04/24 documented as of this encounter
--- OUTSIDE RECORDS SUMMARY | 2024-11-20 16:34 | XMS_ITS | Encounter Summary ---
Author Organization [employer] Address [address] [facility] 7t [place] [address] Care Team Providers Care Supervisor Powdered Sugar Name Role Phone Ting Packer MD Primary Care Provide r Fabian Perkins RN Unavailable [phone] Kelyl Andres Unavailable Reason for Visit * Reason Comments Med Refill Encounter Details Date Type Department Care Team (Late st Contact Info) Description 10/05/2024 Refill [facility] MEDICINE [address] [place], [place] [phone] Ting Packer MD [address] [place], [place] [phone] Polyarthralgia Social History Tobacco Use Types Packs/Day [...] as of this encounter Care Teams Supervisor Powdered Sugar Relationship Specialty Start Date End Date Ting Packer MD [address] [place] [address] PCP - General Family Medicine 02/13/19 Fabian Perkins, RN [address] [place] [address] Registered Nurse Family Medicine 08/04/24 Kelly Andres 08/04/24 Martha Mast Nurse RecruiterHelp Desk Internship 07/20/[address] [facility] documented as of this encounter
--- OUTSIDE RECORDS SUMMARY | 2024-11-20 16:35 | XMS_ITS | Encounter Summary ---
Author Organization [employer] Address [address] [facility] 7t [place] [address] Care Team Providers Care Wood Finisher Name Role Phone Ting Packer MD Primary Care Provide r Fabian Perkins RN Unavailable [phone] Kelly Andres Unavailable Reason for Visit * Reason Comments Med Refill Encounter Details Date Type Department Care Team ([facility] st Contact Info) Description 01/31/2024 Refill [facility] MEDICINE [address] [place], [place] [phone] Ting Packer MD [address] [place], [place] [phone] COPD exacerbation (CMS/HCC) Social History Tobacco Use Types Packs/Day Years [...] this encounter Visit Diagnoses Diagnosis COPD exacerbation ([facility]) Obstructive chronic bronchitis with exacerbation documented in this encounter Additional Health Concerns Assessment Noted Time PHQ-9 Depression Total Score: 3 09/18/19 24 2:01 PM EDT documented as of this encounter Care Teams Wood Finisher Relationship Specialty Start Date End Date Ting Packer MD [address] [place] [address] PCP - General Family Medicine 02/13/19 Fabian Perkins, RN [address] [place] [address] Registered Nurse Family Medicine 08/04/24 Kelly Andres 08/04/24 Martha Mast Retail Shift ManagerLieutenant Firefighter 07/20/23 [facility] 09/04/24 documented as of this encounter
--- OUTSIDE RECORDS SUMMARY | 2024-11-20 16:35 | XMS_ITS | Encounter Summary ---
Author Organization [employer] Address [address] [facility] 7t [place] [address] Care Team Providers Care Testing Shaking Shipping Name Role Phone Ting Packer MD Primary Care Provide r Fabian Perkins RN Unavailable [phone] Kelly Andres Unavailable Reason for Visit * Reason Comments Med Refill Encounter Details Date Type Department Care Team (Late st Contact Info) Description 06/08/2023 Refill [facility] [address] [place], [place] [phone] Ting Packer MD [address] [place], [place] [phone] Social History Tobacco Use Types Packs/Day Years [...] documented as of this encounter Care Teams Testing Shaking Shipping Relationship Specialty Start Date End Date Ting Packer MD [address] [place] [address] PCP - General Family Medicine 02/13/19 Fabian Perkins, RN [address] [place] [address] Registered Nurse Family Medicine 08/04/24 Kelly Andres 08/04/[address] AbstractorDivision Field Inspector 07/20/23 Alyssia ABARCAA 09/04/24 documented as of this encounter
--- OUTSIDE RECORDS SUMMARY | 2024-11-20 16:35 | XMS_ITS | Encounter Summary ---
Author Organization [employer] Address [address] [place] [address] 7t [place] [address] Care Team Providers Care Medical Appointment Scheduler Name Role Phone Ting Packer MD Primary Care Provide r Fabian Perkins RN Unavailable [phone] Kelly Andres Unavailable Encounter Details Date Type Department Care Team (Late st Contact Info) Description 11/03/2022 Telephone [facility] MEDICINE [address] [place], [place] [phone] Ting Packer MD [address] [place], [place] [phone] Social History Tobacco Use Types Packs/Day Years [...] documented as of this encounter Care Teams Medical Appointment Scheduler Relationship Specialty Start Date End Date Ting Packer MD [address] [place] [address] PCP - General Family Medicine 02/13/19 Fabian Perkins, RN [address] [place] [address] Registered Nurse Family Medicine 08/04/24 Kelly Andres 08/04/24 Martha Mast Recreation CoordinatorJumpbasting Canvas Baster 07/20/23 Alyssia TAYLOR 09/04/24 documented as of this encounter
--- OUTSIDE RECORDS SUMMARY | 2024-11-20 16:35 | XMS_ITS ---
Author Organization [employer] Address [address] [place] [address] 7t [place] [address] Care Team Providers Care Ice Skating Instructor Name Role Phone Ting Packer MD Primary Care Provide r Fabian Perkins RN Unavailable [phone] Kelly Andres Unavailable [facility] Status:Enrolled (Active) Start date:08/04/2024 Enrollment date:08/19/2024 Enrollment reason:ADT Feed Overview ED- [place] [facility] [place]. Case Team Name Relationship Phone Kelly Andres(Responsible Staff) Continued Care and Services Coordination
--- OUTSIDE RECORDS SUMMARY | 2024-11-20 16:35 | XMS_ITS | Encounter Summary ---
Author Organization [employer] Address [address] [facility] 7t [place] [address] Care Team Providers Care Radiology Special Procedure Tech Name Role Phone Ting Packer MD Primary Care Provide r Fabian Perkins RN Unavailable [phone] Kelly Andres Unavailable Encounter Details Date Type Department Care Team (Late st Contact Info) Description 09/12/[address] [facility] [place] [facility] MEDICINE [address] [place], [place] [phone] Ting Packer MD [address] [place], [place] [phone] Social History Tobacco Use Types Packs/Day Years [...] documented as of this encounter Care Teams Radiology Special Procedure Tech Relationship Specialty Start Date End Date Ting Packer MD [address] [place] [address] PCP - General Family Medicine 02/13/19 Fabian Perkins, EMANUEL [address] [place] [address] Registered Nurse Family Medicine 08/04/24 Kelly Andres 08/04/24 Martha Mast Paint SpecialistQuality Control Chemist 07/20/23 Alyssia ABARCAA 09/04/24 documented as of this encounter
--- OUTSIDE RECORDS SUMMARY | 2024-11-20 16:35 | XMS_ITS | Encounter Summary ---
Author Organization [employer] Address [address] [facility] 7t [place] [address] Care Team Providers Care Senior Business Objects Developer Name Role Phone Ting Packer MD Primary Care Provide r Fabian Perkins RN Unavailable Kelly Andres Unavailable Reason for Visit * Reason Comments Med Refill Encounter Details Date Type Department Care Team ([facility] st Contact Info) Description 09/17/2023 Refill [facility] [address] [place], [place] [phone] Ting Packer MD [address] [place] [address] Sleeping difficulty Social History Tobacco Use Types [...] AM EDT documented as of this encounter Functional Status * Over the past 2 weeks, how often have you been bothered by any of the following problems? Question Answer Date of Assessment Author Patient Health Questionnaire -2 Score 1 09/18/2023 2:01 PM EDT Jimmy Rosario MA * If you checked off any problems on this questionnaire so far, Question Answer Date of Assessment Author How difficult have these problems made it for you to do your work, take care of things at home, or get along with other people? Not difficult at all 09/18/2023 2:01 PM ZACT Jimmy Rosario MA * Over the past 2 weeks, how often have you been bothered by any of the following problems? Question Answer Date of Assessment Author Little interest or pleasure in doing things Several days 09/18/2023 2:01 PM ZACT Jimmy Rosario MA Feeling down, depressed, or hopeless Not at all 09/18/2023 2:01 PM ZACT Jimmy Rosario MA Trouble falling or staying asleep, or sleeping too much Several days 09/18/2023 2:01 PM ZACT Jimmy Rosario MA Feeling tired or having little energy Not at all 09/18/2023 2:01 PM ZACT Jimmy Rosario [place] Poor appetite or overeating Not at all 09/18/2023 2: 01 PM EDT Jimmy Rosario MA Feeling bad about yourself - or that you are a failure or have let yourself or your family down Not at all 09/18/2023 2:01 PM EDT Jimmy Rosario MA Trouble concentrating on things, such as reading the newspaper or watching television Several days 09/18/2023 2:01 PM EDT Jimmy Rosario MA Moving or speaking so slowly that other people could have noticed? Or the opposite - being so fidgety or restless that you have been moving around a lot more than usual. Not at all 09/18/2023 2:01 PM EDT Jimmy Rosario MA Thoughts that you would be better off or hurting yourself in some way Not at all 09/18/2023 2:01 PM EDT Jimmy Rosario MA Patient Health Questionnaire-9 Score 3 09/18/2023 2:01 PM EDT Jimmy Rosario MA documented as of this encounter Plan of Treatment Not on file documented as of this encounter Visit Diagnoses Diagnosis Sleeping difficulty Unspecified sleep disturbance documented in this encounter Additional Health Concerns Assessment Noted Time PHQ-9 Depression Total Score: 6 05/24/19 23 1:28 PM EDT documented as of this encounter Care Teams Senior Business Objects Developer Relationship Specialty Start Date End Date Ting Packer MD [address] [place] [address] PCP - General Family Medicine 02/13/19 Fabian Perkins, RN [address] [place] [address] Registered Nurse Family Medicine 08/04/24 Kelly Andres 08/04/24 Martha Mast TuckpointerSkin Care Consultant 07/20/23 Edison A 09/04/24 documented as of this encounter
--- OUTSIDE RECORDS SUMMARY | 2024-11-20 16:35 | XMS_ITS | Encounter Summary ---
Author Organization [employer] Address [address] [facility] 7t [place] [address] Care Team Providers Care Hand Candy Dipper Name Role Phone Ting Packer MD Primary Care Provide r Fabian Perkins RN Unavailable Kelly Andres Unavailable Reason for Visit * Reason Comments Med Refill Encounter Details Date Type Department Care Team ([facility] st Contact Info) Description 11/17/2024 Refill [facility] MED[facility]INE [address] [place], [place] [phone] Ting Packer MD [address] [place], [place] [phone] Forgetfulness Social History Tobacco Use Types Packs/Day Years Used Date Smoking Tobacco: Former Cigarettes Passive Smoke Exposure: Past Smokeless Tobacco: Never Alcohol Answer Date Recorded Frequency of Alcohol Consumption Not on file 09/18/2023 Average Number of Drinks Not on file 024 Frequency of Binge Drinking Not on file 08/27 Score 0 09/18/2023 Depression Answer Date Recorded Patient Health Questionnaire-9 Score 8 10/30/2024 Patient Health Questionnaire-9 Score 8 10/30/2024 Last PHQ-9: Questionnaire Data Not on file 0 10/30/2024 Housing Stability Answer Date Recorded What is [...] Answer Date Recorded Patient Health Questionnaire-2 Score 2 10/30/2024 Internet Access Answer Date Recorded Internet Access [...] as of this encounter Visit Diagnoses Diagnosis Forgetfulness Other general symptoms documented in this encounter Additional Health Concerns Assessment Noted Time PHQ-9 Depression Total Score: 8 10/31/19 25 11:37 AM EDT documented as of this encounter Care Teams Hand Candy Dipper Relationship Specialty Start Date End Date Ting Packer MD [address] [place] [address] PCP - General Family Medicine 02/13/19 Fabian Perkins, RN [address] [place] [address] Registered Nurse Family Medicine 08/04/24 Kelly Andres 08/04/24 Martha Mast Pricing LeadWood Machine Carver 07/20/23 [facility] documented as of this encounter
--- OUTSIDE RECORDS SUMMARY | 2024-11-20 16:35 | XMS_ITS | Encounter Summary ---
Author Organization [employer] Address [address] [place] [address] 7t [place] [address] Care Team Providers Care Forge Hand Name Role Phone Ting Packer MD Primary Care Provide r Fabian Perkins RN Unavailable [phone] Kelly Andres Unavailable Encounter Details Date Type Department Care Team (Late st Contact Info) Description 11/16/2022 Orders Only [facility] MEDICINE [address] [place] [address] Provider, MD Jacob Social History Tobacco Use [...] documented as of this encounter Care Teams Forge Hand Relationship Specialty Start Date End Date Ting Packer MD [address] [place] [address] PCP - General Family Medicine 02/13/19 Fabian Perkins, RN [address] [place] [address] Registered Nurse Family Medicine 08/04/24 Kelly Andres 08/04/24 Martha Mast Circuit Breaker MechanicDrywall Hanger Helper 07/20/23 Alyssia ABARCAA 09/04/24 documented as of this encounter
--- OUTSIDE RECORDS SUMMARY | 2024-11-20 16:35 | XMS_ITS | Encounter Summary ---
Author Organization [employer] Address [address] [facility] 7t [place] [address] Care Team Providers Care Wharf Tender Name Role Phone Ting Packer MD Primary Care Provide r Fabian Perkins RN Unavailable [phone] Kelly Andres Unavailable Reason for Visit * Reason Onset Date Comments Dec recall 11/20/2024 Encounter Details Date Type Department Care Team ([facility] st Contact Info) Description 11/20/2024 Telephone [facility] MEDICINE [address] [place], [place] [phone] Ting Packer MD [address] [place], [place] [phone] Dec recall Social History Tobacco Use Types Packs/Day Years [...] encounter Miscellaneous Notes * Telephone Encounter - Alla Owens [place] - 11/20/2024 3:58 PM EDT Telephone call to patient to schedule a recall appointment. No answer, Left voicemail to return call to clinic.. Recall letter sent. Visit type: Office visit Appointment notes: Chronic Conditions Month due: January With: Joshua Please schedule appointment above if patient returns call documented in this encounter Plan of Treatment Not on file documented as of this encounter Visit Diagnoses Not on filedocumented in this encounter Additional Health Concerns Assessment Noted Time PHQ-9 Depression Total Score: 8 10/31/19 25 11:37 AM EDT documented as of this encounter Care Teams Wharf Tender Relationship Specialty Start Date End Date Ting Packer MD [address] [place] [address] PCP - General Family Medicine 02/13/19 Fabian Perkins, RN [address] [place] [phone] Registered Nurse Family Medicine 08/04/24 Kelly Andres 08/04/24 Martha Mast Histotechnologist SupervisorFront End Engineer 07/20/23 Alyssia TAYLOR 09/04/24 documented as of this encounter
--- OUTSIDE RECORDS SUMMARY | 2024-11-20 16:35 | XMS_ITS | Encounter Summary ---
Author Organization [employer] Address [address] [facility] 7t [place] [address] Care Team Providers Care Biometric Fingerprinting Technician Name Role Phone Ting Packer MD Primary Care Provide r Fabian Perkins RN Unavailable [phone] Kelly Andres Unavailable Reason for Visit * Reason Comments Med Refill Encounter Details Date Type Department Care Team ([facility] st Contact Info) Description 01/29/2024 Refill [facility] MEDICINE [address] [place], [place] [phone] Ting Packer MD [address] [place], [place] [phone] COPD exacerbation (CMS/HCC) Social History Tobacco Use [...] this encounter Visit Diagnoses Diagnosis COPD exacerbation ([facility]) Obstructive chronic bronchitis with exacerbation documented in this encounter Additional Health Concerns Assessment Noted Time PHQ-9 Depression Total Score: 3 09/18/19 24 2:01 PM EDT documented as of this encounter Care Teams Biometric Fingerprinting Technician Relationship Specialty Start Date End Date Ting Packer MD [address] [place] [address] PCP - General Family Medicine 02/13/19 Fabian Perkins, RN [address] [place] [address] Registered Nurse Family Medicine 08/04/24 Kelly Andres 08/04/24 Martha Mast Floor Plan AdjusterSynchronous Motor Assembler 07/20/23 [facility] 09/04/24 documented as of this encounter
--- OUTSIDE RECORDS SUMMARY | 2024-11-20 16:35 | XMS_ITS | Encounter Summary ---
Author Organization [employer] Address [address] [facility] [address]t [place] [address] Care Team Providers Care Agitator Operator Name Role Phone Ting Packer MD Primary Care Provide r Fabian Perkins RN Unavailable [phone] Kelly Andres Unavailable Reason for Visit * Reason Onset Date Comments HDF 11/13/2023 Encounter Details Date Type Department Care Team (Late st Contact Info) Description 11/13/2023 Telephone [facility] MEDICINE [address] [place], [place] [phone] Ting Packer MD [address] [place], [place] [phone] HDF Social History Tobacco Use Types Packs/Day Years [...] encounter Miscellaneous Notes * Telephone Encounter - Brannonmalloryjeanmarieyeni Morrissey Prateek - 11/13/2023 2:57 PM EDT 11/13/23 1001 Hospital Discharges and Admission for [facility] Type of Visit Hospital Admission Date of Admission/Visit 11/10/23 Date of Discharge 11/12/23 Facility [facility] Diagnosis Hypoxic respiratory failure Disposition Discharged [...] Wednesdays, and Walk-In Urgent Care Located in [facility]. Patient provided with after-hours line for [facility], , which offer night time triage service and option to transfer to rayon tester provider if needed. CC will request Discharge [...] documented as of this encounter Care Teams Agitator Operator Relationship Specialty Start Date End Date Ting Packer MD [address] [place] [address] PCP - General Family Medicine 02/13/19 Fabian Perkins, EMANUEL [address] [place] [phone] Registered Nurse Family Medicine 08/04/24 Klely Andres 08/04/24 Martha Mast Field LaborerBar Host/Hostess 07/20/23 Alyssia ABARCAA 09/04/24 documented as of this encounter
--- OUTSIDE RECORDS SUMMARY | 2024-11-20 16:35 | XMS_ITS ---
Author Organization [employer] Address [address] [place] [address] 7t [place] [address] Care Team Providers Care Buffer Chrome Name Role Phone Ting Packer MD Primary Care Provide r Fabian Perkins RN Unavailable [phone] Kelly Andres Unavailable CM Complex Status:Outreach In Progress (Enrolling) Start date:08/04/2024 Enrollment reason:ADT Feed Overview ED- Pt went to [facility] ED on 08/01/24. Case Team Name Relationship Phone Fabian Perkins RN(Responsible Staff) Registered Nima tran [phone] Continued Care and Services Coordination
--- OUTSIDE RECORDS SUMMARY | 2024-11-20 16:35 | XMS_ITS | Encounter Summary ---
Author Organization [employer] Address [address] [facility] [address]t [place] [address] Care Team Providers Care Php Developer Name Role Phone Ting Packer MD Primary Care Provide r Fabian Perkins RN Unavailable [phone] Kelly Andres Unavailable Reason for Visit * Reason Onset Date Comments PT1 09/12/2023 Encounter Details Date Type Department Care Team ([facility] st Contact Info) Description 09/12/2023 Telephone [facility] MEDICINE [address] [place], [place] [phone] Ting Packer MD [address] [place], [place] [phone] PT1 Social History Tobacco Use Types Packs/Day [...] Telephone Encounter - Brannonmalloryjeanmarieyeni Morrissey Prateek - 09/12/2023 9:39 AM EDT Sandra with [employer] calling requesting PT1 Home Address verified: Y/N: Yes Provider name or facility name: [facility] Facility Address: [address] [place] [address] Escort needed: Y/N: Yes Do you have a wheelchair: Y/N: No If yes- Manual or electric: No Visits: All future Visits Sandra with [employer] calling requesting PT1 Home Address verified: Y/N: Yes Provider name or facility name: [facility] Facility Address: [address] [place] [address] Escort needed: Y/N: Yes Do you have [...] documented as of this encounter Care Teams Php Developer Relationship Specialty Start Date End Date Ting Packer MD [address] [place] [address] PCP - General Family Medicine 02/13/19 Fabian Perkins RN [address] [place] [address] Registered Nurse Family Medicine 08/04/24 Kelly Andres 08/04/24 Martha Mast Communications DesignerMedical Researcher 07/20/23 Alyssia TAYLOR 09/04/24 documented as of this encounter
--- OUTSIDE RECORDS SUMMARY | 2024-11-20 16:35 | XMS_ITS | Clinical Summary ---
Author Organization [employer] Address [address] [place] [address] 7[address] [place] [address] Care Team Providers Care Surveillance Technician Name Role Phone Ting Packer MD Primary Care Provide r Fabian Perkins RN Unavailable [phone] Kelly Andres Unavailable Allergies Active Allergy Reactions Criticality Noted Date Comments José Inhibitors Cough 10/26/2011 Aspirin 10/17/2011 Ciprofloxacin 05/15/2022 Latex High 06/20/2022 Other reaction(s): DIFFICULTY BREATHING Penicillin G 11/30/2017 Shellfish Allergy 05/15/2022 Other reaction(s): hives Medications clopidogrel (Plavix) 75 MG tablet TAKE 1 TABLET BY MOUTH EVERY MORNING 04/18/19 23 Active Spacer/Aero-Hol ding Chambers (OptiChamber Conchita) misc 1 each every 4 (four) hours if needed (asthma). 1 each 08/11/19 23 Active nicotine polacrilex (Nicorette) 2 MG gum Chew 1 piece every 1-2 hours as needed for nicotine craving. Max 24 pieces/24 hours 100 each 02/24/20 23 Active Respiratory Therapy Supplies (Nebulizer/Tubi ng/Mouthpiece) kitIndications: Moderate persistent asthma with acute exacerbation To be used with Nebulizer 1 kit 03/13/19 24 Active guaiFENesin-Cod eine (CODEINE-GUAIFE NESIN PO) Take 5 mL by mouth every 4 (four) hours if needed. 03/15/19 24 Active lidocaine (Lidoderm) 5 % patchIndication s:Upper back pain Apply 1 patch topically Once per day. Remove & discard patch within 12 hours or as directed by . 30 patch 1 07/19/19 24 Active ipratropium-alb uterol (Duo-Neb) 0.5-2.5 mg/3 mL nebulizer solutionIndicat ions:Moderate persistent asthma with acute exacerbation INHALE 1 AMPULE USING A NEBULIZER FOUR TIMES DAILY (for COPD) 75 mL 12/25/19 24 Active azithromycin (Zithromax) 250 MG tabletIndicatio ns:COPD exacerbation (CMS/HCC) Take 2 tabs PO daily x 1d then 1 tab PO daily on D2 to D5 6 tablet 01/14/20 24 Active amLODIPine (Norvasc) 5 MG tabletIndicatio ns:Hypertension , unspecified type TAKE 1 TABLET BY MOUTH EVERY MORNING 90 tablet 3 01/31/20 24 Active predniSONE (Deltasone) 20 MG tablet Take 2 tabs orally daily for 3 days, then 1 tab orally daily for 4 days 10 tablet 02/08/20 24 Active bisacodyl (Bisacodyl EC) 5 MG EC tablet TAKE 2 TABLETS BY MOUTH EVERY DAY AT BEDTIME 180 tablet 1 05/23/19 25 Active Calcium Carb-Cholecalci ferol 600-10 MG-MCG tabletIndicatio ns:Osteopenia, unspecified location TAKE 1 TABLET BY MOUTH EVERY MORNING 90 tablet 1 05/23/19 25 Active hydroCHLOROthia zide 12.5 MG tabletIndicatio ns:Primary hypertension TAKE 1 TABLET BY MOUTH EVERY MORNING 90 tablet 1 05/23/19 25 Active montelukast (Singulair) 10 MG tabletIndicatio ns:Primary hypertension TAKE 1 TABLET BY MOUTH EVERY EVENING 90 tablet 1 05/23/19 25 Active folic acid (Folvite) 1 MG tabletIndicatio ns:Vitamin deficiency TAKE 1 TABLET BY MOUTH EVERY MORNING 90 tablet 1 06/20/19 25 Active cyanocobalamin (Vitamin B-12) 1000 MCG tabletIndicatio ns:Vitamin deficiency TAKE 1 TABLET BY MOUTH EVERY MORNING 90 tablet 1 06/20/19 25 Active amitriptyline (Elavil) 25 MG tabletIndicatio ns:Migraine without aura and without status migrainosus, not intractable TAKE 1 TABLET BY MOUTH AT BEDTIME 90 tablet 1 06/20/19 25 Active sertraline (Zoloft) 50 MG tabletIndicatio ns:Other depression TAKE 1 TABLET BY MOUTH EVERY MORNING 30 tablet 5 08/02/19 25 Active acetaminophen (Tylenol 8 Hour) 650 MG ER tabletIndicatio ns:Multiple joint pain TAKE 1 TABLET BY MOUTH EVERY 8 HOURS NEEDED FOR MODERATE PAIN 30 tablet 1 08/13/19 25 Active melatonin 5 MG tabletIndicatio ns:Sleeping difficulty TAKE 1 TABLET BY MOUTH AT BEDTIME NEEDED FOR SLEEP 90 tablet 1 08/28/19 25 Active Ventolin HFA 108 (90 Base) MCG/ACT inhalerIndicati ons:Severe persistent asthma with exacerbation INHALE 2 PUFFS BY MOUTH EVERY 4 HOURS NEEDED FOR WHEEZING 18 g 3 10/14/19 25 Active Fluticasone-Booker meterol (Advair Diskus) 500-50 MCG/ACT aerosol powderIndicatio ns:Forgetfulnes s Inhale 1 puff 2 times daily. 60 each 5 10/31/19 25 Active tiotropium (Spiriva HandiHaler) 18 MCG inhalation capsuleIndicati ons:Forgetfulne ss USE 1 CAPSULE FOR INHALATION ONCE A DAY DO NOT SWALLOW CAPSULE 30 capsule 10/31/19 25 Active Blood Pressure Monitoring (Blood Pressure Cuff) miscIndications :Primary hypertension 1 each in the morning. 1 each 10/31/19 25 Active gabapentin (Neurontin) 100 MG capsuleIndicati ons:Polyarthral mercedes TAKE 1 CAPSULE BY MOUTH THREE TIMES DAILY IN THE MORNING, EVENING, AND BEDTIME 90 capsule 11/15/19 25 Active albuterol (2.5 MG/3ML) 0.083% nebulizer solutionIndicat ions:Forgetfuln ess INHALE 1 AMPULE USING A NEBULIZER EVERY 4 TO 6 HOURS NEEDED FOR WHEEZING OR SHORTNESS OF BREATH 90 mL 1 11/19/19 25 Active albuterol (2.5 MG/3ML) 0.083% nebulizer solutionIndicat ions:Moderate persistent asthma with acute exacerbation INHALE 1 AMPULE USING A NEBULIZER EVERY 4 TO 6 HOURS NEEDED FOR WHEEZING OR SHORTNESS OF BREATH 90 mL 1 06/07/19 25 025 Discontinued(R eorder (will not trigger notification to Pharmacy)) tiotropium (Spiriva HandiHaler) 18 MCG inhalation capsule USE 1 CAPSULE FOR INHALATION ONCE A DAY DO NOT SWALLOW CAPSULE 30 capsule 06/12/19 25 025 Discontinued(R eorder (will not trigger notification to Pharmacy)) Advair Diskus 500-50 MCG/ACT aerosol powder INHALE 1 PUFF BY MOUTH TWICE DAILY RINSE MOUTH AFTER USING. 60 each 5 09/13/19 25 025 Discontinued(R eorder (will not trigger notification to Pharmacy)) gabapentin (Neurontin) 100 MG capsuleIndicati ons:Polyarthral mercedes TAKE 1 CAPSULE BY MOUTH THREE TIMES DAILY IN THE MORNING, EVENING, AND BEDTIME 90 capsule 10/18/19 025 Discontinued albuterol (2.5 MG/3ML) 0.083% nebulizer solutionIndicat ions:Forgetfuln ess INHALE 1 AMPULE USING A NEBULIZER EVERY 4 TO 6 HOURS NEEDED FOR WHEEZING OR SHORTNESS OF BREATH 90 mL 1 10/31/19 25 025 Discontinued acetaminophen (Tylenol 8 Hour) 650 MG ER tabletIndicatio ns:Chronic left-sided low back pain without sciatica Take 2 tablets (1,300 mg) by mouth every 8 (eight) hours if needed for mild pain for up to 20 days. Do not crush, chew, or split. 60 tablet 1 10/31/19 25 025 Hospital, Clinic, or Other Facility Administered Medication Ordered Dose Route Frequency Start Date End Date Status predniSONE (Deltasone) tablet 50 mgIndications:COPD exacerbation ([facility]) 50 mg PO Daily 02/08/2024 Ac tive Active Problems Problem Noted Date Diagnosed Date Chronic dermatitis 10/30/2024 Assessment & Plan (10/30/2024 4:22 PM EDT): I referred patient to dermatology Chronic left-sided low back pain without sciatic a 10/30/2024 Assessment & Plan (10/30/2024 4:21 PM EDT): Apply heat on affected area I prescribed for patient acetaminophen 650 mg she may take up to 2 tablets every 8 hours if needed Encounter for screening mamm ogram for malignant [...] Asthma-COPD overlap syndrome 09/18/2023 Assessment & Plan (10/30/2024 4:22 PM EDT): Continue with albuterol inhaler as needed I prescribed also albuterol solution I will prescribe the patient a nebulizer machine, instructions were reviewed with patient I prescribed for patient again Advair and Spiriva I advised to use it every day Follow-up with pulmonology Assessment & Plan (05/01/2024 4:21 PM EST): Continue to follow-up closely by pulmonology do not miss any appointments or Nucala injections Assessment & Plan (01/14/2024 4:47 PM EST): C/w current medication regimen Continue to follow with specialist Assessment & Plan (09/18/2023 2:53 PM EDT): C/w advir, montelukast, tiotropium, albuterol PRN Continue to follow with pulmonology Prediabetes 09/18/2023 Assessment & Plan (10/30/2024 4:20 PM EDT): Extensive counseling about healthy diet done today Assessment & Plan (05/01/2024 4:22 PM EST): [...] 12/25/2022 12/26/19 MARY on CPAP 12/25/2022 12/25/2022 Tobacco dependence 08/10/2022 COPD (chronic obstructive pulmonary disease) Assessment & Plan (07/18/2022 10:41 AM EDT): In light of patient's condition (patient looks in respiratory distress, O2 sat good but RR about 32) I decided to call ambulance and refer patient back to emergency room for further evaluation and Management I will get notes from cattle killer and contact their office inquiring about sleep [...] olimpia hominis Forgetfulness 05/15/2022 Assessment & Plan (10/30/2024 4:21 PM EDT): I referred patient to [facility] Assessment & Plan (05/01/2024 4:22 PM EST): [...] 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 Nonrheumatic [...] replacement 09/01/2016 Hypertension 02/26/1957 Assessment & Plan (10/30/2024 4:20 PM EDT): Advised: Low-sodium diet, take her medications every day without missing any dose, I prescribed for her a blood pressure cuff and advised to take it at home every other day to monitor report back to me if blood pressures persistently higher 140/90 Assessment & Plan (05/01/2024 4:22 PM EST): [...] Problem Noted Date Diagnosed Date Resolved Date Reactive airways dysfunction syndrome 12/25/202210/30/2024 Type 2 diabetes mellitus without complication 05/16/19 [...] Encounters Date Type Department Care Team Description 11/20/2024 Telephone [facility] [address] [place] [address] Ting Packer MD Dec recall 11/20/2024 Refill [facility] [address] [place] [phone] Ting Packer MD Chronic left-sided low back pain without sciatica 11/17/2024 Refill [facility] [address] [place] [address] Ting Packer MD Forgetfulness 11/14/2024 Refill [facility] [address] [place] [phone] Ting Packer MD Polyarthralgia 11/13/[address] [address] Ting Packer MD FYI 11/10/2024 Patient Outreach [address] [address] Ting Packer MD Care Coordination ([address] telephone call outreach) 11/05/[address] [address] Ting Packer MD Medication Question 11/05/[address] [address] Ting Packer MD DME Nebulizer 11/05/[address] [address] Ting Packer MD DME Neblizer 10/31/2024 Telephone [facility] [address] [place] [phone] Ting Packer MD Verbal order 10/30/2024 11:15 AM EDT Office Visit [facility] [address] [place] [phone] Ting Packer MD Chronic left-sided low back pain without sciatica (Primary Dx); Primary hypertension; Prediabetes; Dietary counseling; Exercise counseling; Asthma-COPD overlap syndrome (CMS/HCC); Chronic dermatitis; Forgetfulness 10/30/2024 Travel 10/29/2024 Telephone [facility] [address] [place] [address] Ting Packer MD chart prep 10/21/2024 Patient Outreach [facility] [address] [place] [address] Ting Packer MD Care Coordination ([facility] -[facility] Kelly Dmitry telephone call outreach) 10/16/2024 Telephone [facility] [address] [place] [phone] Ting Packer MD fyi 10/16/2024 Refill [facility] [address] [place] [phone] Ting Packer MD Polyarthralgia 10/12/2024 Refill [facility] [address] [place] [address] Ting Packer MD Severe persistent asthma with exacerbation 10/09/2024 Orders Only [facility] [address] [place] [phone] Ting Packer MD Other nonrheumatic aortic valve disorders (Primary Dx) 10/09/2024 Telephone [facility] [address] [place] [phone] Ting Packer MD Referral 10/08/2024 Patient Outreach [facility] [address] [place] [phone] Ting Packer MD Care Management (C3- Initial assessment/enrollment) 10/07/2024 Patient Outreach [facility] [address] [place] [phone] Ting Packer MD Care Coordination ([facility] -[facility] Kelly Sharpz telephone call outreach) 10/05/2024 Refill [facility] [address] [place] [phone] Ting Packer MD Polyarthralgia 10/02/2024 Telephone [facility] [address] [place] [phone] Allison Gautam, OD 10/01/2024 Telephone [facility] [address] [place] [phone] Dain, Allison, OD 09/25/2024 Patient Outreach [facility] [address] [place] [phone] Ting Packer MD Care Coordination (C3 -[facility] Andres telephone call outreach) 09/24/2024 Telephone [facility] [address] [place] [address] Ting Packer MD Appointment Request 09/18/2024 Patient Outreach [facility] [address] [place] [phone] Ting Packer MD Care Coordination ([address] Andres telephone call outreach) 09/12/2024 Telephone [facility] [address] [place] [phone] Ting Packer MD Call Back Request 09/12/2024 Refill [facility] [address] [place] [phone] Ting Packer MD Polyarthralgia 09/11/2024 Patient Outreach [facility] [address] [place] [phone] Ting Packer MD Care Management ([facility]- Initial assessment/enrollment) 09/08/2024 Telephone [facility] [address] [place] [phone] Ting Packer MD call back needed 09/05/2024 Patient Outreach [facility] [address] [place] [phone] Ting Packer MD 09/04/2024 Telephone [facility] [address] [place] [phone] Ting Packer MD No Show 09/04/[address] [address] Ting Packer MD verbal orders needed 09/03/[address] [address] Ting Packer MD Chart prep 09/03/2024 Patient Outreach [address] [address] Ting Packer MD Care Coordination ([address] Kelly Andres telephone call outreach) 08/27/[address] [phone] Ting Packer MD Sleeping difficulty 08/26/2024 Patient Outreach [address] [address] Ting Packer MD Pre-visit Planning ([facility] screening completed on 08/19/2024) from Last 3 Months Immunizations Immunization Administration Dates Next Due Hep B, adult [...] Sign Reading Time Taken Comments Blood Pressure 132/88 10/30/2024 11:36 AM EDT Pulse 68 10/30/2024 11:36 AM EDT Temperature 36.2 C (97.1 F) 10/30/2024 11:36 AM EDT Respiratory Rate 18 10/30/2024 11:36 AM EDT Oxygen Saturation 96% 10/30/2024 11:36 AM EDT Inhaled Oxygen Concentration - - Weight 61.1 kg (134 lb 9.6 oz) 10/30/2024 11:36 AM EDT Height 149.9 cm (4' 11 ) 10/30/2024 11:36 AM EDT Body Mass Index 27.19 10/30/2024 11:36 AM EDT Plan of Treatment Health Maintenance Due Date Last Done Comments CT Colonography 1962 FIT DNA/Cologuard 1962 FIT 1962 FOBT 1962 HIV Screening 1962 Sigmoidoscopy 1962 Disability Screening 1962 Diabetes: Foot Exam 1972 Eye Exam 1972 Hepatitis C Screening 1980 Pap Smear 12/13/1983 HPV/Cotest 1992 Zoster Vaccines (1 of 2) 2012 RSV Patients and Patients Aged 60 years or older (1 - Risk 60-74 years 1-dose series) 2022 Dental Oral Exam 02/10/2023 08/10/2022, 01/09/2017 Dental Prophylaxis 02/10/2023 08/10/2022 Mammogram 01/14/2024 01/13/2022, 12/27, 01/12/2020, Additional history exists Dental X-Ray: Bitewings 04/19/2024 04/18/2023 COVID-19 Vaccine ( season) 2024 01/25/2023, 06/08/2020, 05/11/2020 Influenza Vaccine (#1) 2024 , 01/25/2023, 01/02/2017, Additional history exists Diabetes: Urine Protein Screening 01/13/2025 01/14/2024 Lipid Panel 01/13/2025 01/14/2024, 03/18/2020 Diabetes: Hemoglobin A1C 04/29/2025 025, 05/01/2024, 09/18/2023, Additional history exists Dental X-Ray: Full Mouth 08/11/2025 08/10/2022, 12/27 SDOH Screening 08/19/2025 08/19/2024 Alcohol/Substance Use Screening 10/30/2025 10/30/2024 Depression Screening 10/30/2025 10/30/2024, 10/31/19 Tobacco Screening 10/30/2025 10/30/2024 Colonoscopy 01/16/2027 01/16/2017 Colorectal Cancer Screening 01/16/2027 DTaP/Tdap/Td Vaccines (3 - Td or Tdap) 10/10/2028 10/10/2018, 07/29/2010, 07/07/1997 Hepatitis B Vaccines Completed 06/12/2002, 04/03/2002, 10/07/2001 Pneumococcal Vaccine: 50+ Years Completed 05/01/2024, 03/02/2015, [...] patient's age to complete this topic Meningococcal B Vaccine Aged Out No l onger eligible based on patient's age to complete [...] Diagnosis Comments POCT GLYCATED HEMOGLOBIN, TOTAL Routine 10/30/2024 11:53 AM EDT Prediabetes POCT GLUCOSE Routine 10/30/2024 11:53 AM EDT Prediabetes ALBUMIN, RANDOM URINE W/CREATININE Routine 01/14/2024 3:09 [...] Relevant to Health Maintenance Results * POCT Hgb A1c (10/30/2024 11:53 AM EDT) Hemoglobin A1C 5.7 4.0 - 5.7 % QC Media Lot # [id number] Lot# Expiration Date [id number] Blood 10/30/2024 11:5 3 AM EDT Ting Hampton MD POINT OF CARE TEST EN TER/EDIT ORDERABLES Final Result * (ABNORMAL) POCT Glucose (10/30/2024 11:53 AM EDT) Glucose Blood, POC 97(A) 60 - 200 mg/dL QC Media Lot # [id number] Lot# Expiration Date 113,025 Blood Capillary blood specimen / Unknown 10/30/2024 11:53 AM EDT Ting Hampton MD POINT OF CARE TEST EN TER/EDIT ORDERABLES Final Result * (ABNORMAL) Albumin, Random Urine W/Creatinine (01/14/2024 3:09 PM EST) Creatinine, Urine 88.61 mg/dL [facility] Microalbumin Urine 28.0 mg/L H [facility] Microalbum Creatinine Ratio Ur 31.5(H) <30 ug/mg cr [facility] Comment:Albumin/Creatinine R at Reference Ranges: Normal: < 30 ug/mg creatinine Microalbuminuria: 30 - 300 ug/mg creatinineClinical Albuminuria: > 300 ug/mg creatinine Urine (Urine, Random) 01/14/2024 3:09 PM EST 01/14/2024 3:59 PM EST us Ting Hampton MD LAB URINE ORDERABLES Final Result Performing Organization Address City/[facility]/ZIP Co de Phone Number [facility] [address] [place] [address] [phone] * (ABNORMAL) Lipid Panel, Standard (01/14/2024 3:09 PM EST) Triglycerides 113 <150 mg/dL [facility] Comment:Desirable Triglyceri de: less than 150 mg/dLBorderline High Triglyceride 150-199 mg/dLHigh Triglyceride: 200-499 mg/dLVery High Triglyceride: greater than or equal to 5OO mg/dL Cholesterol 213(H) <200 mg/dL [facility] Comment:Desirable Cholestero l: less than 200 mg/dLBorderline High Cholesterol: 200-239 mg/dLHigh Cholesterol: greater than 239 mg/dL LDL Cholesterol Calculated 96 <100 mg/dL [facility] Comment:Desirable LDL: less than 100 mg/dLNear Optimal/Above Optimal LDL: 110- 129 mg/dLBorderline High LDL: 130-159 mg/dLHigh LDL: 160-189 mg/dLVery High LDL: greater than or equal to 190 mg/dL HDL Cholesterol 95 >40 mg/dL [facility] Comment:Desirable HDL: great er than 40 mg/dL Note: This HDL assay may give artificially low results in patients with liver disease. Blood Venous blood specimen / Unknown 01/14/2024 3:09 PM EST 01/14/2024 3:58 PM EST us Ting Hampton MD LAB BLOOD ORDERABLES Final Result Performing Organization Address City/[facility]/ZIP Co de Phone Number [facility] [address] [place] [address] [phone] * Mammography Report 1 (01/13/2022 3:40 [...] Fin al Result * Hm Colonoscopy (01/16/2017) us Historical Provider HEALTH MAINTENANCE Final Result from Last 3 Months or Most Recently Relevant to Health Maintenance Insurance [facility] C3 DENTAL-[facility] MEDICAID STAND ADULT Care Teams Surveillance Technician Relationship Specialty Start Date End Date Ting Packer MD [address] [place] [phone] PCP - General Family Medicine 02/13/19 Fabian Perkins, RN [address] [place] [address] Registered Nurse Family Medicine 08/04/24 Kelly Andres 08/04/24 Martha Mast Dictating Transcribing Machine ServicerBank Representative 07/20/23 Alyssia A 09/04/24
--- OUTSIDE RECORDS SUMMARY | 2024-11-20 16:35 | XMS_ITS | Encounter Summary ---
Author Organization [employer] Address [address] [facility] [address]t [place] [address] Care Team Providers Care Machine Rope Maker Name Role Phone Ting Packer MD Primary Care Provide r Fabian Perkins RN Unavailable [phone] Kelly Andres Unavailable Reason for Visit * Reason Comments Med Refill Encounter Details Date Type Department Care Team (Late st Contact Info) Description 11/20/2024 Refill [facility] [address] [place], [place] [phone] Ting Packer MD [address] [place], [place] [phone] Chronic left-sided low back pain without sciatica Social History Tobacco Use Types Packs/Day Years [...] as of this encounter Visit Diagnoses Diagnosis Chronic left-sided low back pain without sciatica documented in this encounter Additional Health Concerns Assessment Noted Time PHQ-9 Depression Total Score: 8 10/31/19 25 11:37 AM EDT documented as of this encounter Care Teams Machine Rope Maker Relationship Specialty Start Date End Date Ting Packer MD [address] [place] [address] PCP - General Family Medicine 02/13/19 Fabian Perkins, EMANUEL [address] [place] [address] Registered Nurse Family Medicine 08/04/24 Kelly Andres 08/04/24 Martha Mast Refining EngineerTool Profiling Machine Set Up Operator 07/20/23 [facility] documented as of this encounter
--- OUTSIDE RECORDS SUMMARY | 2024-11-20 16:35 | XMS_ITS | Encounter Summary ---
Author Organization [employer] Address [address] [facility] [address] [place] [address] Care Team Providers Care Tea Leaf Reader Name Role Phone Ting Packer MD Primary Care Provide r Fabian Perkins RN Unavailable [phone] Kelly Andres Unavailable Reason for Visit * Reason Onset Date Comments Med Refill Pt family member walked in with pt on the phone. Pt spoke with fd and is complaining of left shoulder pain. Pt states she has been in pain for x4 days. Pt is requesting urgent appt and only want pcp. Pt can be reached at [phone]. Routing message to team nurses. appt request 06/19/2024 Encounter Details Date Type Department Care Team (Late st Contact Info) Description 06/19/2024 Telephone [facility] [address] [place], [place] [phone] Ting Packer MD [address] [place], [place] [phone] Med Refill (Pt family member walked in with pt on the phone. Pt spoke with fd and is complaining of left shoulder pain. Pt states she has been in pain for x4 days. Pt is requesting urgent appt and only want pcp. Pt can be reached at [phone]. Routing message to team nurses.); appt request Social History Tobacco Use Types Packs/Day Years [...] encounter Miscellaneous Notes * Telephone Encounter - Ora Andres - 06/19/2024 2:34 PM EDT Pt family member walked in with pt on the phone. Pt spoke with fd and is complaining of left shoulder pain. Pt states she has been in pain for x4 days. Pt is requesting urgent appt and only want pcp.Pt can be reached at [phone]. Routing message to team nurses. documented in this encounter Plan of Treatment Not on file documented as of this encounter Visit Diagnoses Diagnosis Vitamin deficiency Unspecified vitamin deficiency Migraine without aura and without status migrainosus, not intractable documented in this encounter Additional Health Concerns Assessment Noted Time PHQ-9 Depression Total Score: 3 09/18/19 24 2:01 PM EDT documented as of this encounter Care Teams Tea Leaf Reader Relationship Specialty Start Date End Date Ting Packer MD [address] [place] [address] PCP - General Family Medicine 02/13/19 Fabian Perkins, RN [address] [place] [phone] Registered Nurse Family Medicine 08/04/24 Kelly Andres 08/04/24 Martha Mast Material ReclaimerIt Manager 07/20/23 Alyssia ABARCAA 09/04/24 documented as of this encounter
--- OUTSIDE RECORDS SUMMARY | 2024-11-20 16:35 | XMS_ITS | Encounter Summary ---
Author Organization [employer] Address [address] [facility] 7t [place] [address] Care Team Providers Care Residential Building Inspector Name Role Phone Ting Packer MD Primary Care Provide r Fabian Perkins RN Unavailable [phone] Kelly Andres Unavailable Reason for Visit * Reason Onset Date Comments Call Back Request 01/03/2023 Encounter Details Date Type Department Care Team ([facility] st Contact Info) Description 01/03/2023 Telephone [facility] MEDICINE [address] [place], [place] [phone] Ting Packer MD [address] [place], [place] [phone] Call Back Request Social History Tobacco Use [...] documented as of this encounter Care Teams Residential Building Inspector Relationship Specialty Start Date End Date Ting Packer MD [address] [place] [address] PCP - General Family Medicine 02/13/19 Fabian Perkins, EMANUEL [address] [place] [address] Registered Nurse Family Medicine 08/04/24 Kelly Andres 08/04/24 Martha Mast Desktop SpecialistHardness Tester 07/20/23 Alyssia TAYLOR 09/04/24 documented as of this encounter
--- OUTSIDE RECORDS SUMMARY | 2024-11-20 16:35 | XMS_ITS | Encounter Summary ---
Author Organization [employer] Address [address] [facility] 7t [place] [address] Care Team Providers Care Rockboard Lather Name Role Phone Ting Packer MD Primary Care Provide r Fabian Perkins RN Unavailable [phone] Kelly Andres Unavailable Reason for Visit * Reason Onset Date Comments [facility] 02/21/2023 Encounter Details Date Type Department Care Team ([facility] st Contact Info) Description 02/21/2023 Telephone [facility] MEDICINE [address] [place], [place] [phone] Ting Packer MD [address] [place], [place] [phone] [facility] Program Social History Tobacco Use Types [...] states that since November 30, 2022 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 Please contact Pt @ [phone] documented in this encounter Plan of Treatment Not on file documented as of this encounter Visit Diagnoses Not on filedocumented in this encounter Additional Health Concerns Assessment Noted Time PHQ-9 Depression Total Score: 6 05/24/19 23 1:28 PM EDT documented as of this encounter Care Teams Rockboard Lather Relationship Specialty Start Date End Date Ting Packer MD [address] [place] [address] PCP - General Family Medicine 02/13/19 Fabian Perkins, EMANUEL [address] [place] [address] Registered Nurse Family Medicine 08/04/24 Kelly Andres 08/04/24 Martha Mast Product Safety TesterResidential Manager 07/20/23 Alyssia TAYLOR 09/04/24 documented as of this encounter
--- OUTSIDE RECORDS SUMMARY | 2024-11-20 16:35 | XMS_ITS | Encounter Summary ---
Author Organization [employer] Address [address] [facility] 7t [place] [address] Care Team Providers Care Deburr Operator Name Role Phone Ting Packer MD Primary Care Provide r Fabian Perkins RN Unavailable [phone] Kelly Andres Unavailable Reason for Visit * Reason Onset Date Comments Nurse Triage 07/28/2024 Encounter Details Date Type Department Care Team (Late st Contact Info) Description 07/28/2024 Telephone [facility] MEDICINE 230 [place], [place] [phone] Ting Packer MD 230 [place], [place] [phone] Nurse Triage Social History Tobacco Use Types [...] encounter Miscellaneous Notes * Telephone Encounter - Nidia Cotton RN - 07/28/2024 12:31 PM EDT Triage call with [facility] [place] [id number]. Pt reports shoulder pain, back pain and leg pain. Pt reports has happened one other time and was hospitalized. Pt is unable to ambulate due to the pain for the last 2-3 days and Tylenol does nothing.Pt reports having to use a bedside commode for toileting. Pt is advised to seek evaluation at closest ED. Pt agrees with disposition and will call for follow up after ED visit. Pt insurance is verified as active. Protocol Used: Leg Pain (Adult) Protocol-Based Disposition: Go to ED Now Positive Triage Question: * Unable to walk * All higher-acuity triage questions were negative Care Advice Discussed: * Reassurance and Education - Leg Pain * Pain Medicines * Pain Medicines - Extra Notes and Warnings * Reasons To Call Back - Moderate pain (such as limping) lasts more than 3 days - Mild pain lasts more than 7 days - Signs of infection occur (such as spreading redness, warmth, fever) - You become worse * Telephone Encounter - Beka Marin - 07/28/2024 11:39 AM EDT Symptoms: Leg Pain - Not From Injury, Abdominal Pain - Female - Not Outcome: Schedule an urgent appointment (within 1 hour) or talk to a nurse or provider soon Reason: Trouble walking The caller accepted this outcome. documented in this encounter Plan of Treatment Not on file documented as of this encounter Visit Diagnoses Not on filedocumented in this encounter Additional Health Concerns Assessment Noted Time PHQ-9 Depression Total Score: 3 09/18/19 24 2:01 PM EDT documented as of this encounter Care Teams Deburr Operator Relationship Specialty Start Date End Date Ting Packer MD [address] [place] [address] PCP - General Family Medicine 02/13/19 Fabian Perkins RN [address] [place] [address] Registered Nurse Family Medicine 08/04/24 Kelly Andres 08/04/24 Martha Mast Litigation CounselFire Engine Operator 07/20/23 Alyssia ABARCAA 09/04/24 documented as of this encounter
--- OUTSIDE RECORDS SUMMARY | 2024-11-20 16:35 | XMS_ITS | Encounter Summary ---
Author Organization [employer] Address 75 [facility] 7t [place] [address] Care Team Providers Care Automotive Services Manager Name Role Phone Ting Packer MD Primary Care Provide r Fabian Perkins RN Unavailable [phone] Kelly Andres Unavailable Reason for Visit * Reason Comments Med Refill Encounter Details Date Type Department Care Team ([facility] st Contact Info) Description 02/21/2024 Refill [facility] MEDICINE 230 [place], [place] [phone] Dara Ricardo MD 230 [place], [place] [phone] Moderate persistent asthma with acute exacerbation Social [...] documented as of this encounter Care Teams Automotive Services Manager Relationship Specialty Start Date End Date Ting Packer MD [address] [place] [address] PCP - General Family Medicine 02/13/19 Fabian Perkins, RN [address] [place] [address] Registered Nurse Family Medicine 08/04/24 Kelly Andres 08/04/24 Martha Mast Business Communications InstructorTelegraph Repeater Installer 07/20/23 Alyssia TAYLOR 09/04/24 documented as of this encounter
--- OUTSIDE RECORDS SUMMARY | 2024-11-20 16:35 | XMS_ITS | Encounter Summary ---
Author Organization [employer] Address 75 [facility] 7t [place] [address] Care Team Providers Care Waiter/Waitress Counter Name Role Phone Ting Packer MD Primary Care Provide r Fabian Perkins RN Unavailable [phone] Kelly Andres Unavailable Reason for Visit * Reason Onset Date Comments Hospital Follow-up 03/22/2023 Encounter Details Date Type Department Care Team ([facility] st Contact Info) Description 03/22/2023 Telephone [facility] MEDICINE 230 [place], [place] [phone] Ting Packer MD 230 [place], [place] [phone] Hospital Follow-up Social History Tobacco Use Types [...] from pt requesting a HDF appt. Hospital: [facility] Date of admission: [facility]: 03/14 [facility]:03/15 Discharge date: [facility]:03/15 [facility]: 03/17 Diagnosed: asthma and COPD Please contact pt at [phone] (Malay) documented in this encounter Plan of Treatment Not on file documented as of this encounter Visit Diagnoses Not on filedocumented in this encounter Additional Health Concerns Assessment Noted Time PHQ-9 Depression Total Score: 6 05/24/19 23 1:28 PM EDT documented as of this encounter Care Teams Waiter/Waitress Counter Relationship Specialty Start Date End Date Ting Packer MD [address] [place] [address] PCP - General Family Medicine 02/13/19 Fabian Perkins, EMANUEL [address] [place] [address] Registered Nurse Family Medicine 08/04/24 Kelly Andres 08/04/24 Martha Mast Talent Acquisition AssociateFiler Repairer 07/20/23 Alyssia TAYLOR 09/04/24 documented as of this encounter
--- OUTSIDE RECORDS SUMMARY | 2024-11-20 16:35 | XMS_ITS | Encounter Summary ---
Author Organization [employer] Address [address] [facility] 7t [place] [address] Care Team Providers Care Mallet Cutter Name Role Phone Ting Packer MD Primary Care Provide r Fabian Perkins RN Unavailable [phone] Kelly Andres Unavailable Reason for Visit * Reason Comments Med Refill Encounter Details Date Type Department Care Team (Late st Contact Info) Description 10/26/2023 Refill [facility] MEDICINE [address] [place], [place] [phone] Ting Packer MD [address] [place], [place] [phone] Moderate persistent asthma with acute exacerbation Social [...] documented as of this encounter Care Teams Mallet Cutter Relationship Specialty Start Date End Date Ting Packer MD [address] [place] [address] PCP - General Family Medicine 02/13/19 Fabian Perkins, RN [address] [place] [address] Registered Nurse Family Medicine 08/04/24 Kelly Andres 08/04/24 Martha Mast Splunk ArchitectStore Group Manager 07/20/23 [facility] documented as of this encounter
--- OUTSIDE RECORDS SUMMARY | 2024-11-20 16:35 | XMS_ITS | Encounter Summary ---
Author Organization [employer] Address [address] [facility] 7t [place] [address] Care Team Providers Care Staff Registered Nurse Name Role Phone Ting Packer MD Primary Care Provide r Fabian Perkins RN Unavailable [phone] Kelly Andres Unavailable Reason for Visit * Reason Onset Date Comments Med Refill 01/31/2024 Encounter Details Date Type Department Care Team (Late st Contact Info) Description 01/31/2024 Telephone [facility] MEDICINE [address] [place], [place] [phone] Ting Packer MD [address] [place], [place] [phone] Med Refill Social History Tobacco Use Types [...] 20 MG tablet To be sent to: [facility] documented in this encounter Plan of Treatment Not on file documented as of this encounter Visit Diagnoses Not on filedocumented in this encounter Additional Health Concerns Assessment Noted Time PHQ-9 Depression Total Score: 3 09/18/19 24 2:01 PM EDT documented as of this encounter Care Teams Staff Registered Nurse Relationship Specialty Start Date End Date Ting Packer MD [address] [place] [address] PCP - General Family Medicine 02/13/19 Fabian Perkins, EMANUEL [address] [place] [address] Registered Nurse Family Medicine 08/04/24 Kelly Andres 08/04/24 Martha Mast Flight Deck OfficerCryogenic Transport Driver 07/20/23 Alyssia TAYLOR 09/04/24 documented as of this encounter
--- OUTSIDE RECORDS SUMMARY | 2024-11-20 16:35 | XMS_ITS | Encounter Summary ---
Author Organization [employer] Address [address] [facility] 7t [place] [address] Care Team Providers Care Cad Administrator Name Role Phone Ting Packer MD Primary Care Provide r Fabian Perkins RN Unavailable [phone] Kelly Andres Unavailable Reason for Visit * Reason Onset Date Comments Hospital Follow-up 10/31/2023 Encounter Details Date Type Department Care Team ([facility] st Contact Info) Description 10/31/2023 Telephone [facility] MEDICINE [address] [place], [place] [phone] Ting Packer MD 230 [place], [place] [phone] Hospital Follow-up Social History Tobacco Use Types [...] documented as of this encounter Care Teams Cad Administrator Relationship Specialty Start Date End Date Ting Packer MD [address] [place] [address] PCP - General Family Medicine 02/13/19 Fabian Perkins RN [address] [place] [address] Registered Nurse Family Medicine 08/04/24 Kelly Andres 08/04/24 Martha Mast Motor Coach Bus DriverCriminal Justice Department Chair 07/20/23 Alyssia TAYLOR 09/04/24 documented as of this encounter
--- OUTSIDE RECORDS SUMMARY | 2024-11-20 16:35 | XMS_ITS | Encounter Summary ---
Author Organization [employer] Address [address] [facility] 7t [place] [address] Care Team Providers Care Liquor Establishment Manager Name Role Phone Ting Packer MD Primary Care Provide r Fabian Perkins RN Unavailable [phone] Kelly Andres Unavailable Reason for Visit * Reason Onset Date Comments Hospital Follow-up 08/09/2023 Encounter Details Date Type Department Care Team ([facility] st Contact Info) Description 08/09/2023 Telephone [facility] MEDICINE 230 [place], [place] [phone] Ting Packer MD 230 [place], [place] [phone] Hospital Follow-up Social History Tobacco Use Types [...] from pt requesting a HDF appt. Hospital: 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 documented in this encounter Plan of Treatment Not on file documented as of this encounter Visit Diagnoses Not on filedocumented in this encounter Additional Health Concerns Assessment Noted Time PHQ-9 Depression Total Score: 6 05/24/19 23 1:28 PM EDT documented as of this encounter Care Teams Liquor Establishment Manager Relationship Specialty Start Date End Date Ting Packer MD [address] [place] [address] PCP - General Family Medicine 02/13/19 Fabian Perkins, EMANUEL [address] [place] [address] Registered Nurse Family Medicine 08/04/24 Kelly Andres 08/04/24 Martha Mast Manufacturing Technology AnalystChemical Radiation Technician 07/20/23 [facility] 09/04/24 documented as of this encounter
--- OUTSIDE RECORDS SUMMARY | 2024-11-20 16:35 | XMS_ITS | Encounter Summary ---
Author Organization [employer] Address [address] [facility] 7t [place] [address] Care Team Providers Care Casing Wringer Operator Name Role Phone Ting Packer MD Primary Care Provide r Fabian Perkins RN Unavailable [phone] Kelly Andres Unavailable Reason for Visit * Reason Comments Med Refill Encounter Details Date Type Department Care Team (Late st Contact Info) Description 03/23/2024 Refill [facility] MEDICINE 230 [place], [place] [phone] Ting Packer MD [address] [place], [place] [phone] Polyarthralgia Social History Tobacco Use Types Packs/Day [...] documented as of this encounter Care Teams Casing Wringer Operator Relationship Specialty Start Date End Date Ting Packer MD [address] [place] [address] PCP - General Family Medicine 02/13/19 Fabian Perkins, EMANUEL [address] [place] [address] Registered Nurse Family Medicine 08/04/24 Kelly Andres 08/04/24 Marhta Mast Certified Nurse AideFamily Medicine Physician 07/20/23 [facility] documented as of this encounter
--- OUTSIDE RECORDS SUMMARY | 2024-11-20 16:35 | XMS_ITS | Encounter Summary ---
Author Organization [employer] Address [address] [facility] 7t [place] [address] Care Team Providers Care Drying And Winding Supervisor Name Role Phone Ting Packer MD Primary Care Provide r Fabian Perkins RN Unavailable [phone] Kelly Andres Unavailable Reason for Visit * Reason Onset Date Comments Appointment Request 05/01/2024 Encounter Details Date Type Department Care Team ([facility] st Contact Info) Description 05/01/2024 Telephone [facility] MEDICINE 230 [place], [place] [phone] Ting Packer MD [address] [place], [place] [phone] Appointment Request Social History Tobacco Use Types [...] 05/01/2024 11:19 AM EST Tc from pt's CONFECTIONERY LABORATORY MANAGER requesting reschedule 05/01 office visit appt, states can only on Mondays since ptdon't have transportation. [phone] Marielos CONFECTIONERY LABORATORY MANAGER documented in this encounter Plan of Treatment Not on file documented as of this encounter Visit Diagnoses Not on filedocumented in this encounter Additional Health Concerns Assessment Noted Time PHQ-9 Depression Total Score: 3 09/18/19 24 2:01 PM EDT documented as of this encounter Care Teams Drying And Winding Supervisor Relationship Specialty Start Date End Date Ting Packer MD [address] [place] [address] PCP - General Family Medicine 02/13/19 Fabian Perkins, EMANUEL [address] [place] [address] Registered Nurse Family Medicine 08/04/24 Kelly Andres 08/04/24 Martha Mast Central Office Equipment InstallerProject Coach 07/20/23 Alyssia TAYLOR 09/04/24 documented as of this encounter
--- OUTSIDE RECORDS SUMMARY | 2024-11-20 16:35 | XMS_ITS | Encounter Summary ---
Author Organization [employer] Address [address] [facility] 7t [place] [address] Care Team Providers Care Air Pumper Name Role Phone Ting Packer MD Primary Care Provide r Fabian Perkins RN Unavailable [phone] Kelly Andres Unavailable Encounter Details Date Type Department Care Team (Late st Contact Info) Description 02/29/[address] [facility] MEDICINE 230 [place], [place] [phone] Ting Packer MD 230 [place], [place] [phone] Social History Tobacco Use Types Packs/Day Years [...] documented as of this encounter Care Teams Air Pumper Relationship Specialty Start Date End Date Ting Packer MD [address] [place] [address] PCP - General Family Medicine 02/13/19 Fabian Perkins, RN [address] [place] [address] Registered Nurse Family Medicine 08/04/24 Kelly Andres 08/04/24 Martha Mast Health Informatics SpecialistOffice Employee 07/20/23 Alyssia ABARCAA 09/04/24 documented as of this encounter
== END 2024-11-20 12:17 | disposition home or self-care (01) ==
LOC: HO.HPS 11:44
PROVIDERS: PCP Internal Medicine; Visit Provider Internal Medicine
DX: J44.1 Chronic obstructive pulmonary disease with (acute) exacerbation (principal); G47.33 Obstructive sleep apnea (adult) (pediatric); J98.4 Other disorders of lung; J68.3 Other acute and subacute respiratory conditions due to chemicals, gases, fumes and vapors; J30.9 Allergic rhinitis, unspecified
CPT/HCPCS: 99214

== ENCOUNTER → 2024-11-20 11:43 | Outpatient (BNVA) | payer MEDICAID, SELFPAY | PROVIDERS: PCP Internal Medicine; Visit Provider Internal Medicine | DX: J44.1 Chronic obstructive pulmonary disease with (acute) exacerbation (principal); G47.33 Obstructive sleep apnea (adult) (pediatric); J98.4 Other disorders of lung; J68.3 Other acute and subacute respiratory conditions due to chemicals, gases, fumes and vapors; J30.9 Allergic rhinitis, unspecified | CPT/HCPCS: 99212 ==

== ENCOUNTER 2024-12-18 12:07 | Outpatient (REF) | payer MEDICAID, SELFPAY ==
[2024-12-18 14:41] LABS: Vitamin B12 > 2000 pg/mL (200-900)
== END 2024-12-18 12:08 | disposition home or self-care (01) ==
LOC: HO.LAB 12:07
PROVIDERS: PCP Internal Medicine; Visit Provider Nurse Practitioner
DX: F03.90 Unspecified dementia, unspecified severity, without behavioral disturbance, psychotic disturbance, mood disturbance, and anxiety (principal)
CPT/HCPCS: 36415; 82607; 84443; 99202

== ENCOUNTER 2024-12-18 12:07 | Outpatient (AMB) | payer MEDICAID, SELFPAY ==
--- NOTE | 2024-12-18 12:07 | A.OFFVIS_ITS ---
Vital Signs 12/18/24 12:18 Height 4 ft 11 in BP 110/58 L Blood Pressure Location Rt brachial Position Sitting Respiration 16 Pulse 59 Pulse Source Pulse Oximeter Pulse Oximetry (%) 98 Oxygen Delivery Method Room Air Intake Visit Reasons: Forgetfullness Counter Control Operator Required: Yes Counter Control Operator Services: Counter Control Operator Present Counter Control Operator Name: Stacey ID [id number] Information Interpreted: non-clinical & clinical Accompanied by: Son Allergies latex (LATEX) Allergy (Severe, Verified 11/20/24 11:48) DIFFICULTY BREATHING aspirin (Aspirin) Allergy (Intermediate, Verified 11/20/24 11:48) ITCHING, itchiness ciprofloxacin (From CIPRO) Allergy (Intermediate, Verified 11/20/24 11:48) DIAPHORESIS/PURITIS Penicillins (PENICILLINS) Allergy (Unknown, Verified 11/20/24 11:48) UNKNOWN HEMALATHA Inhibitors (HEMALATHA INHIBITORS) Adverse Reaction (Intermediate, Verified 11/20/24 11:48) COUGH HPI Comments Details: Ting is a 64-year-old female patient presenting to the clinic for increased forgetfulness. She has a pre-existing medical history of hypertension, remote history of crack cacaine use, cardiac pacemaker in-situ, prediabetes, moderate asthma, coronary artery disease, urinary incontinence, migraine, and insomnia. She is accompanied by her son today. Her son and other family members have noticed some change in her memory over the course of the last few years but more profoundly over the last 4-5 months or so. Her son explains that her memory has been very bad lately. For example, they just recently went for a real ID and he had to repeat himself several times the same thing. She is also forgetting family members names and conversations that she has had with family members. 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 Her gait has slowed drastically though she does report some left leg pain. She does have baseline urinary difficulties such as incontinence and urgency and at times retention. This is not a recent change. Memory evaluation: Onset of memory changes:Most significant over the past 4-5 month Rate of progression:Prior to the this time period she had some mild cognitive changes but much less pronounced prior to the last 6 months Cognitive: Difficulty remembering upcoming events:Yes, her family helps to manage appoint ments Getting lost: Yes Difficulty keeping track of time: Difficulty with determining time Difficulty finding appropriate words:Yes, has difficulty following in conversations Difficulty making decisions or problem-solving:Yes Functional: Difficulty writing checks, paying bills: Her family manages her finances Difficulty driving a car:No Difficulty shopping alone:Yes, family does her shopping for her Difficulty performing household tasks: Family manages her director statistical programming and affairs Difficulty managing own medications:Yes, family assists with this Difficulty pursuing hobbies/leisure activities: Yes, she does like to cook but has her son help with this now Change in gait:Yes, some difficulty with ambulation due to some left lower extremity pain. Much slower over the course of the last few months Social activities: Difficulty holding conversation: Yes Decreased social activity with family/friends:No Less cooperative:No Less aware of others feeling/her full:No Less concerned about bathing/dressing/grooming: No, needs help with baiting or dressing Behavioral: Sad, depressed: At times showing some signs of depression Anxious, worried:No Inpatient, fidgety:No Acts impulsively, disinhibited: No Change appetite or weight: No loss of appetite or weight loss Change in sleep pattern, daytime fatigue: Reports sleeping okay Hallucinations:No Prior workup: A CT scan of the brain from 08/30/2024 shows mild generalized cerebral atrophy but otherwise no acute findings. Ventricles are within normal size limit. [facility] Medical History (Updated 12/18/24 @ 13:03 by Carol Yeboah CNP) Aortic valve disease Heart murmur COVID Swelling of left wrist Eosinophilia Severe aortic stenosis COPD (chronic obstructive pulmonary disease) Pacemaker Asthma with exacerbation Smoking Restrictive airway disease MARY (obstructive sleep apnea) MARY on CPAP Reactive airways dysfunction syndrome Rheumatoid arthritis Fibromyalgia GERD (gastroesophageal reflux disease) MARY (obstructive sleep apnea) Aortic valve endocarditis COPD (chronic obstructive pulmonary disease) COPD exacerbation Overactive bladder Bronchitis Allergic rhinitis COPD (chronic obstructive pulmonary disease) Asthma Hx of cardiac pacemaker Hx of migraines Hx of coronary artery disease History of urinary incontinence Hx of essential hypertension History of depression Hx of drug abuse Hx of hyperlipidemia Hx of allergic rhinitis History of enuresis Hx of osteoarthritis Hx of pilonidal cyst Family history of GERD History of arthritis Hx of diabetes mellitus Surgical History History of surgical removal of pilonidal cyst Hx of bilateral cataract extraction Hx of colonoscopy History of cystoscopy History of hysterectomy Hx of aortic valve replacement Hx laparoscopic cholecystectomy History of epidermal inclusion cyst excision Social History Household Members: Unknown / Unable to assess Household Members Other:: son Housing: Apartment Do you presently have visiting nurse or other home services: Yes (STITCH BONDING MACHINE TENDER everyday) Alcohol intake: never Comment: refusing alarms Patient Tobacco Use Status: Former Tobacco user Tobacco use type: Cigarette Cigarettes Per Day: 3 e-Cigarette/Vaping Use: Never Used Second Hand Smoke Exposure: No Substance Use Type: Former Substance User Advance Directives Date on File: 11/08/21 service: No Current occupational status: unemployed and disabled Review of Systems Const All systems reviewed & are unremarkable except as noted in HPI and below ENT Reports Normal hearing present Neuro Reports Normal hearing present and Reports confusion Psych Reports confusion Physical Exam Vital Signs: Last Vital Signs Pulse 59 12/18/24 12:18 Resp 16 12/18/24 12:18 BP 110/58 L 12/18/24 12:18 Pulse Ox 98 12/18/24 12:18 Oxygen Delivery Method Room Air 12/18/24 12:18 Const General: confusion Orientation/consciousness: oriented to person, oriented to place, No oriented to time and confusion Eyes Pupils: Equal, round and reactive pupils present Neuro Other: MOCA: MOCA total:230 (1 point given for <12 years school= 330) Executive:0/5 Namin/3 Attention:0/6 Language:0/3 Abstraction:0/2 Delayed recall:0/5 Orientation:2/6 General: oriented to person, oriented to place, No oriented to time and confusion Cranial nerves: Yes Equal, round and reactive pupils present, Yes Midline tongue present and Yes Normal hearing present Cognition (Neuro): abnormal cognition Gait exam (Neuro): Ataxic gait present and Other gait observations present (slow and magnetic ) Motor exam (neuro): Tremors during motor activity present (jaw tremor ) Deep tendon reflexes (DTR's): Right triceps reflex intensity grade: 2+, Left triceps reflex intensity grade: 2+, Rt Biceps (C5, C6): 2+, Left biceps reflex intensity grade: 2+, Right brachioradialis reflex intensity grade: 2+, Left brachioradialis reflex intensity grade: 2+, Right patellar reflex intensity grade: 2+, Left patellar reflex intensity grade: 2+, Right ankle reflex intensit y grade: 2+ and Left ankle reflex intensity grade: 2+ Psych Appearance: grossly normal Speech and movement: Slowed speech present (Psych) Affect: Irritable affect present (irritable at times ) and Blunted affect present Insight: Poor insight present (Psych) Judgement: Poor judgement present (Psych) Assessment & Plan Assessment & Plan (1) Dementia: Code(s): F03.90 - Unspecified dementia, unspecified severity, without behavioral disturbance, psychotic disturbance, mood disturbance, and anxiety Category: Medical Plan Ting is a 64-year-old female patient presenting to the clinic for increased forgetfulness. She has a pre-existing medical history of hypertension, remote history of crack cacaine use, cardiac pacemaker in-situ, prediabetes, moderate asthma, coronary artery disease, urinary incontinence, migraine, and insomnia. Her dementia is likely multifactorial considering her prior history of crack cocaine use, family history of Alzheimer's dementia, and generalized cerebral atrophy noted on CT. Based on [place] score which was performed today with a account support rep, her cognitive impairment is and a severe degree. She would not be a good candidate for anti amyloid/Alzheimer's specific medications. I think reasonably focus should be made on supportive care. Her moods seem to be stable and she has not had any major changes in behavior. We will start memantine 5 mg twice daily and in the future could consider increasing dose if needed. Other things to consider would be medications to support mood as time moves on. In terms of function, she has STITCH BONDING MACHINE TENDER and family support. They could consider the pace program. Information was given on the program today to her son. In the meantime, check labs including B12 and TSH. Follow up in 3 months. -Labs: b12 and TSH -Start memantine 5mg twice daily -Consider PACE program for memory support moving forward -Follow up in 3 months Orders: Orders TSH reflex Free T4 12/18/24 F03.90 - Unspecified dementia, unspecified severity, without behavioral disturbance, psychotic disturbance, mood disturbance, and anxiety Vitamin B12 12/18/24 F03.90 - Unspecified dementia, unspecified severity, without behavioral disturbance, psychotic disturbance, mood disturbance, and anxiety Medications: New memantine (Namenda) 5 mg PO BID 60 tabs 3RF 30 days Coding Level of Care Code New Pt Level 4 (32359) Diagnoses Dementia F03.90
[2024-12-18 12:18] VITALS: BP 110/58; PULSE 59; RESP 16; O2SAT 98
--- OUTSIDE RECORDS SUMMARY | 2024-12-18 15:18 | XMS_ITS ---
Author Organization [employer] Address [address] [place] [address] [address] [place] [address] Care Team Providers Care Systems Engineer Name Role Phone Ting Packer MD Primary Care Provide r CM Complex Status:Closed (Closed) Start date:08/04/2024 Enrollment reason:ADT Feed End date:12/15/2024 Close reason:Cannot reach/non-working phone number Overview ED- Pt went to [facility] ED on 08/01/24. Continued Care and Services Coordination
--- OUTSIDE RECORDS SUMMARY | 2024-12-18 15:18 | XMS_ITS | Encounter Summary ---
Author Organization [employer] Address [address] [facility] [address] [place] [address] Care Team Providers Care Wiener Packer Name Role Phone Ting Packer MD Primary Care Provide r Fabian Perkins RN Unavailable [phone] Kelly Andres Unavailable Reason for Visit * Reason Comments Med Refill Encounter Details Date Type Department Care Team (Late st Contact Info) Description 10/05/2024 Refill [facility] MEDICINE [address] [place], [place] [phone] Ting Packer MD [address] [place], [place] [phone] Polyarthralgia Social History Tobacco Use Types Packs/Day [...] Time PHQ-9 Depression Total Score: 3 09/18/19 2:01 PM EDT documented as of this encounter Care Teams Wiener Packer Relationship Specialty Start Date End Date Ting Packer MD [address] [place] [address] PCP - General Family Medicine 02/13/19 Fabian Perkins, RN [address] [place] [address] Registered Nurse Family Medicine 08/04/24 12/15/24 Kelly Andres 08/04/24 12/15/24 Martha Mast Network Relations ConsultantReview Coordinator 07/20/23 [facility] 09/04/24 documented as of this encounter
--- OUTSIDE RECORDS SUMMARY | 2024-12-18 15:18 | XMS_ITS | Encounter Summary ---
Author Organization [employer] Address [address] [facility] [address] [place] [address] Care Team Providers Care Scaler Name Role Phone Ting Packer MD Primary Care Provide r Fabian Perkins RN Unavailable [phone] Kelly Andres Unavailable Reason for Visit * Reason Onset Date Comments [facility] 02/21/2023 Encounter Details Date Type Department Care Team ([facility] st Contact Info) Description 02/21/2023 Telephone [facility] MEDICINE [address] [place], [place] [phone] Ting Packer MD [address] [place], [place] [phone] [facility] Social History Tobacco Use Types [...] states that since November 30, 2022 her BUSINESS TECHNOLOGY ARCHITECT Has not been getting paid for his services and [facility] has advised pt that provider needs to filled out a Filled Authorization form in order for BUSINESS TECHNOLOGY ARCHITECT to get paid and must be Submitted through [employer]. Please contact Pt @ [phone] documented in this encounter Plan of Treatment Not on file documented as of this encounter Visit Diagnoses Not on filedocumented in this encounter Additional Health Concerns Assessment Noted Time PHQ-9 Depression Total Score: 6 05/24/19 23 1:28 PM EDT documented as of this encounter Care Teams Scaler Relationship Specialty Start Date End Date Ting Packer MD [address] [place] [address] PCP - General Family Medicine 02/13/19 Fabian Perkins, EMANUEL [address] [place] [id number] Registered Nurse Family Medicine 08/04/24 12/15/24 Kelly Andres 08/04/24 12/15/24 Martha Mast [employer] ConsultantGore Maker 07/20/23 Alyssia TAYLOR 09/04/24 documented as of this encounter
--- OUTSIDE RECORDS SUMMARY | 2024-12-18 15:18 | XMS_ITS | Clinical Summary ---
Author Organization [employer] Address [address] [place] [address] 7[address] [place] [address] Care Team Providers Care Change Director Name Role Phone Ting Packer MD Primary [...] MD. 30 patch 1 07/19/19 24 Active ipratropium-alb uterol (Duo-Neb) 0.5-2.5 mg/3 mL nebulizer solutionIndicat ions:Moderate persistent asthma with acute exacerbation INHALE 1 AMPULE USING A NEBULIZER FOUR TIMES DAILY (for COPD) 75 mL 12/25/19 24 Active azithromycin (Zithromax) 250 MG tabletIndicatio ns:COPD exacerbation (CMS/HCC) (HCC) Take 2 tabs PO daily x 1d [...] 4 days 10 tablet 02/08/20 24 Active folic acid (Folvite) 1 MG tabletIndicatio [...] MORNING 30 tablet 5 08/02/19 25 Active melatonin 5 MG tabletIndicatio ns:Sleeping difficulty TAKE 1 TABLET BY MOUTH AT BEDTIME NEEDED FOR SLEEP 90 tablet 1 08/28/19 25 Active Ventolin HFA 108 (90 Base) MCG/ACT inhalerIndicati ons:Severe persistent asthma with exacerbation (HCC) INHALE 2 PUFFS BY MOUTH EVERY 4 HOURS NEEDED FOR WHEEZING 18 g 3 10/14/19 25 Active Fluticasone-Booker meterol (Advair Diskus) 500-50 MCG/ACT aerosol powderIndicatio ns:Forgetfulnes s Inhale 1 puff 2 times daily. 60 each 5 10/31/19 25 Active tiotropium (Spiriva HandiHaler) 18 MCG inhalation capsuleIndicati ons:Forgetfulne ss USE 1 CAPSULE FOR INHALATION ONCE A DAY DO NOT SWALLOW CAPSULE 30 capsule 11 10/31/19 25 Active Blood Pressure Monitoring (Blood Pressure Cuff) miscIndications :Primary hypertension 1 each in the morning. 1 each 10/31/19 25 Active albuterol (2.5 MG/3ML) 0.083% nebulizer solutionIndicat ions:Forgetfuln ess INHALE 1 AMPULE USING A NEBULIZER EVERY 4 TO 6 HOURS NEEDED FOR WHEEZING OR SHORTNESS OF BREATH 90 mL 1 11/19/19 25 Active bisacodyl (Bisacodyl EC) 5 MG EC tablet TAKE 2 TABLETS BY MOUTH EVERY DAY AT BEDTIME 180 tablet 1 12/05/19 25 Active montelukast (Singulair) 10 MG tabletIndicatio ns:Primary hypertension TAKE 1 TABLET BY MOUTH EVERY EVENING 90 tablet 1 12/05/19 25 Active Calcium Carb-Cholecalci ferol 600-10 MG-MCG tabletIndicatio ns:Osteopenia, unspecified location TAKE 1 TABLET BY MOUTH EVERY MORNING 90 tablet 1 12/05/19 25 Active hydroCHLOROthia zide 12.5 MG tabletIndicatio ns:Primary hypertension TAKE 1 TABLET BY MOUTH EVERY MORNING 90 tablet 1 12/05/19 25 Active acetaminophen (Tylenol 8 Hour) 650 MG ER tabletIndicatio ns:Multiple joint pain TAKE 2 TABLETS BY MOUTH EVERY 8 HOURS NEEDED FOR MILD PAIN 60 tablet 1 12/10/19 25 Active gabapentin (Neurontin) 100 MG capsuleIndicati ons:Polyarthral mercedes TAKE 1 CAPSULE BY MOUTH THREE TIMES DAILY IN THE MORNING, EVENING, AND BEDTIME 90 capsule 12/17/19 25 Active bisacodyl (Bisacodyl EC) 5 MG EC tablet TAKE 2 TABLETS BY MOUTH EVERY DAY AT BEDTIME 180 tablet 1 05/23/19 25 025 Discontinued Calcium Carb-Cholecalci ferol 600-10 MG-MCG tabletIndicatio ns:Osteopenia, unspecified location TAKE 1 TABLET BY MOUTH EVERY MORNING 90 tablet 1 05/23/19 25 025 Discontinued hydroCHLOROthia zide 12.5 MG tabletIndicatio ns:Primary hypertension TAKE 1 TABLET BY MOUTH EVERY MORNING 90 tablet 1 05/23/19 25 025 Discontinued montelukast (Singulair) 10 MG tabletIndicatio ns:Primary hypertension TAKE 1 TABLET BY MOUTH EVERY EVENING 90 tablet 1 05/23/19 25 025 Discontinued acetaminophen (Tylenol 8 Hour) 650 MG ER tabletIndicatio ns:Multiple joint pain TAKE 1 TABLET BY MOUTH EVERY 8 HOURS NEEDED FOR MODERATE PAIN 30 tablet 1 08/13/19 25 025 Discontinued acetaminophen (Tylenol 8 Hour) 650 MG ER tabletIndicatio ns:Chronic left-sided low back pain without sciatica Take 2 tablets (1,300 mg) by mouth every 8 (eight) hours if needed for mild pain for up to 20 days. Do not crush, chew, or split. 60 tablet 1 10/31/19 25 025 gabapentin (Neurontin) 100 MG capsuleIndicati ons:Polyarthral mercedes TAKE 1 CAPSULE BY MOUTH THREE TIMES DAILY IN THE MORNING, EVENING, AND BEDTIME 90 capsule 11/15/19 025 Discontinued(R eorder (will not trigger notification to Pharmacy)) Hospital, Clinic, or Other Facility Administered Medication Ordered Dose Route Frequency Start Date End Date Status predniSONE (Deltasone) tablet 50 mgIndications:COPD exacerbation (CMS/HCC) (HCC) 50 mg PO Daily 02/08/2024 Active Active Problems Problem Noted Date Diagnosed Date [...] malignant neoplasm of breast 05/01/2024 COPD exacerbation (CMS/HCC) 12/25/2023 Assessment & Plan (01/14/2024 4:48 PM EST): I prescribed z-pack Prednisone extended now 60mg daily ED precautions reviewed Assessment & Plan (12/25/2023 6:22 PM EDT): Unclear if related to CHF? Will order BNP and fu results. 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 [address] [place] [address] Ting Packer MD Polyarthralgia 12/15/2024 Patient Outreach [facility] [address] [place] [address] Ting Packer MD Care Coordination (C3 CM-[facility] Andres telephone call outreach ) [address] [facility] [address] [place] [address] Ting Packer MD Polyarthralgia 12/08/[address] [facility] [address] [place] [address] Ting Packer MD Multiple joint pain 12/08/2024 Patient Outreach [facility] [address] [place] [address] Ting Packer MD Care Coordination (C3 CM-[facility] telephone call outreach /) 12/04/[address] [facility] [address] [place] [address] Ting Packer MD Primary hypertension; Osteopenia, unspecified location 12/01/2024 Patient Outreach [facility] [address] [place] [address] Ting Packer MD Care Coordination (C3 [facility] Andres telephone call outreach) 11/24/2024 Patient Outreach [facility] [address] [place] [address] Ting Packer MD Care Coordination (C3 CM-[facility] Andres telephone call outreach) 11/21/[address] [facility] [address] [place] [address] Ting Packer MD FYI 11/20/[address] [facility] [address] [place] [address] Ting Packer MD Dec recall 11/20/[address] [facility] [address] [place] [address] Ting Packer MD Chronic left-sided low back pain without sciatica 11/17/[address] [facility] [address] [place] [address] Ting Packer MD Forgetfulness 11/14/[address] [facility] [address] [place] [address] Ting Packer MD Polyarthralgia 11/13/[address] [address] Ting Packer MD FYI 11/10/2024 Patient Outreach [address] [address] Ting Packer MD Care Coordination ([address] Andres telephone call outreach) 11/05/[address] [address] Ting Packer MD Medication Question 11/05/[address] [address] Ting Packer MD DME Nebulizer 11/05/[address] [address] Ting Packer MD DME Neblizer 10/31/[address] [address] Ting Packer MD Verbal order 10/30/2024 11:15 AM EDT Office Visit [address] [address] Ting Packer MD Chronic left-sided low back pain without sciatica (Primary Dx); Primary hypertension; Prediabetes; Dietary counseling; Exercise counseling; Asthma-COPD overlap syndrome (CMS/HCC); Chronic dermatitis; Forgetfulness 10/30/2024 Travel 10/29/[address] [address] Ting Packer MD chart prep 10/21/2024 Patient Outreach [facility] [address] [place] [address] Ting Packer MD Care Coordination (C3 -[facility] Kelly Andres telephone call outreach) 10/16/[address] [facility] [address] [place] [address] Ting Packer MD fyi 10/16/[address] [facility] [address] [place] [address] Ting Packer MD Polyarthralgia 10/12/[address] [facility] [address] [place] [address] Ting Packer MD Severe persistent asthma with exacerbation 10/09/2024 Orders Only [facility] [address] [place] [address] Ting Packer MD Other nonrheumatic aortic valve disorders (Primary Dx) 10/09/[address] [facility] [address] [place] [address] Ting Packer MD Referral 10/08/2024 Patient Outreach [facility] [address] [place] [address] Ting Packer MD Care Management (C3CM- Initial assessment/enrollment) 10/07/2024 Patient Outreach [facility] [address] [place] [address] Ting Packer MD Care Coordination (C3 -[facility] Kelly Andres telephone call outreach) 10/05/[address] [facility] [address] [place] [address] Ting Packer MD Polyarthralgia 10/02/[address] [facility] [address] [place] [address] Alban Gautamn, OD 10/01/[address] [facility] [address] [place] [address] Allison Gautam, OD 09/25/2024 Patient Outreach [address] [address] Ting Packer MD Care Coordination (C3 [facility] Kelly Andres telephone call outreach) 09/24/[address] [address] Ting Packer MD Appointment Request 09/18/2024 Patient Outreach [address] [address] Ting Packer MD Care Coordination (C3 [facility] Kelly Andres telephone call outreach) from Last 3 Months Immunizations Immunization Administration [...] 10/30/2025 10/30/2024 Depression Screening 10/30/2025 10/30/2024, 10/31/19 25 Tobacco Screening 10/30/2025 10/30/2024 Colonoscopy 01/16/2027 01/16/2017 [...] Procedure Name Priority Date/Time Associated Diagnosis Comments VITAMIN B12 Routine 12/18/2024 1:41 PM EDT TSH W/REFLEX TO FT4 Routine 12/18/2024 1 :41 PM EDT POCT GLYCATED HEMOGLOBIN, TOTAL Routine 10/30/2024 11:53 [...] GENERIC Routine 01/13/2022 3:4 0 PM EST COLONOSCOPY Routine 01/16/2017 from Last 3 Months or Most Recently Relevant to Health Maintenance Results * TSH with Reflex to Free T4 (12/18/2024 1:41 PM EDT) Pathologist [facility] TSH reflex Free T4 1.25 0.32 - 4.0 uIU/mL [facility] 12/18/2024 1:41 PM EDT 12/18/2024 1:41 PM EDT Generic External Data Provider LAB BLOOD ORDERAB LES Final Result Performing Organization Address [facility]/ZIP Co de Phone Number [facility] [address] [place] [phone] * (ABNORMAL) Vitamin B12 (12/18/2024 1:41 PM EDT) [facility] Vitamin B12 >2,000(H) 200 - 900 pg/mL [facility] Comment:NORMAL 200-900 PG/ML INDETERMINATE 160-199 PG/ML DEFICIENT < 160 PG/ML 12/18/2024 1:41 PM EDT 12/18/2024 1:41 PM EDT Generic External Data Provider LAB BLOOD ORDERAB LES Final Result Performing Organization Address City/[facility]/ZIP Co de Phone Number [facility] [address] [place] [phone] * POCT Hgb A1c (10/30/2024 11:53 AM EDT) [facility] Hemoglobin A1C 5.7 4.0 - 5.7 % QC Media Lot # [id number] Lot# Expiration Date [id number] Blood 10/30/2024 11:5 3 AM EDT Ting Hampton MD POINT OF CARE TEST EN TER/EDIT ORDERABLES Final Result * (ABNORMAL) POCT Glucose (10/30/2024 11:53 AM EDT) Glucose Blood, POC 97(A) 60 - 200 mg/dL [employer] Lot # [id number] Lot# Expiration Date Blood Capillary blood specimen / Unknown 10/30/2024 11:53 AM EDT Ting Hampton MD POINT OF CARE TEST EN TER/EDIT ORDERABLES Final Result * (ABNORMAL) Albumin, Random Urine W/Creatinine (01/14/2024 3:09 PM EST) Creatinine, Urine 88.61 mg/dL [facility] Microalbumin Urine 28.0 mg/L [facility] Microalbum Creatinine Ratio Ur 31.5(H) <30 ug/mg cr [facility] Comment:Albumin/Creatinine R atio Reference Ranges: Normal: < 30 ug/mg creatinine Microalbuminuria: 30 - 300 ug/mg creatinineClinical Albuminuria: > 300 ug/mg creatinine Urine (Urine, Random) 01/14/2024 3:09 PM EST 01/14/2024 3:59 PM EST Ting Hampton MD LAB URINE ORDERABLES Final Result [facility] [address] [place] [phone] * (ABNORMAL) Lipid Panel, Standard (01/14/2024 3:09 PM EST) Triglycerides 113 <150 mg/dL [facility] Comment:Desirable Triglyceri de: less than 150 mg/dLBorderline High Triglyceride 150-199 mg/dLHigh Triglyceride: 200-499 mg/dLVery High Triglyceride: greater than or equal to 5OO mg/dL Cholesterol 213(H) <200 mg/dL [facility] Comment:Desirable Cholestero l: less than 200 mg/dLBorderline High Cholesterol: 200-239 mg/dLHigh Cholesterol: greater than 239 mg/dL LDL Cholesterol Calculated 96 <100 mg/dL [facility] Comment:Desirable LDL: less than 100 mg/dLNear Optimal/Above Optimal LDL: 110- 129 mg/dLBorderline High LDL: 130-159 mg/dLHigh LDL: 160-189 mg/dLVery High LDL: greater than or equal to 190 mg/dL HDL Cholesterol 95 >40 mg/dL [facility] Comment:Desirable HDL: great er than 40 mg/dL Note: This HDL assay may give artificially low results in patients with liver disease. Blood Venous blood specimen / Unknown 01/14/2024 3:09 PM EST 01/14/2024 3:58 PM EST Ting Hampton MD LAB BLOOD ORDERABLES Final Result Performing Organization Address City/State/[facility] Co de Phone Number [facility] [address] [place] [phone] * Mammography Report 1 (01/13/2022 3:40 PM EST) Anatomical Region Laterality Modality Breast Bilateral Mammography 01/13/2022 3:40 PM EST Narrative 01/16/2022 1:42 PM EST Refer to the Notes tab for result details [facility] Procedure: Mammography Report 1 Procedure Note Provider, MD Jacob - 05/21/2022 Refer to the Notes tab for result details [facility] Procedure: Mammography Report 1 us Ting Hampton MD IMG BI PROCEDURES Fin al Result * Hm Colonoscopy (01/16/2017) us Jacob Provider HEALTH MAINTENANCE Final Result from Last 3 Months or Most Recently Relevant to Health Maintenance Insurance DENTAL-[facility] MEDICAID STAND ADULT Care Teams Change Director Relationship Specialty Start Date End Date Ting Packer MD [address] [place] [address] PCP - General Family Medicine 02/13/19 Martha Mast Hardware TrainerSales And Marketing Administrator 07/20/23 Alyssia TAYLOR 09/04/24
--- OUTSIDE RECORDS SUMMARY | 2024-12-18 15:18 | XMS_ITS | Encounter Summary ---
Author Organization [employer] Address [address] [facility] 7t [place] [address] Care Team Providers Care Education Finance Processor Name Role Phone Ting Packer MD Primary Care Provide r Fabian Perkins RN Unavailable [phone] Kelly Andres Unavailable Reason for Visit * Reason Onset Date Comments Call Back Request 01/03/2023 Encounter Details Date Type Department Care Team ([facility] st Contact Info) Description 01/03/2023 Telephone [facility] [address] [place], [place] [phone] Ting Packer MD [address] [place], [place] [phone] Call Back Request Social History Tobacco Use [...] documented as of this encounter Care Teams Education Finance Processor Relationship Specialty Start Date End Date Ting Packer MD [address] [place] [address] PCP - General Family Medicine 02/13/19 Fabian Perkins, EMANUEL [address] [place] [address] Registered Nurse Family Medicine 08/04/24 12/15/24 Kelly Andres 08/04/24 12/15/24 Martha Mast Food Technology TeacherPony Trimmer 07/20/23 Alyssia ABARCAA 09/04/24 documented as of this encounter
--- OUTSIDE RECORDS SUMMARY | 2024-12-18 15:18 | XMS_ITS | Encounter Summary ---
Author Organization [employer] Address [address] [place] [address] [address] [place] [address] Care Team Providers Care Veneer Stacker Name Role Phone Ting Packer MD Primary Care Provide r Fabian Perkins RN Unavailable [phone] Kelly Andres Unavailable Encounter Details Date Type Department Care Team (Late st Contact Info) Description 11/16/2022 Orders Only [facility] [address] [place] [address] Provider, MD Jacob Social History Tobacco Use [...] documented as of this encounter Care Teams Veneer Stacker Relationship Specialty Start Date End Date Ting Packer MD [address] [place] [address] PCP - General Family Medicine 02/13/19 Fabian Perkins, RN [address] [place] [address] Registered Nurse Family Medicine 08/04/24 12/15/24 Kelly Andres 08/04/24 12/15/24 Martha Mast Agriscience Technology InstructorJob Interviewer 07/20/23 Alyssia ABARCAA 09/04/24 documented as of this encounter
--- OUTSIDE RECORDS SUMMARY | 2024-12-18 15:18 | XMS_ITS | Encounter Summary ---
Author Organization [email or web address] Address [address] [place] [address] 7t [place] [address] Care Team Providers Care Home Therapy Teacher Name Role Phone Ting Packer MD Primary Care Provide r Fabian Perkins RN Unavailable [phone] Kelly Andres Unavailable Encounter Details Date Type Department Care Team (Late st Contact Info) Description 11/03/2022 Telephone [facility] [address] [place], [place] [phone] Ting Packer MD [address] [place], [place] [phone] Social History Tobacco Use Types Packs/Day Years [...] as of this encounter Care Teams Home Therapy Teacher Relationship Specialty Start Date End Date Ting Packer MD [address] [place] [address] PCP - General Family Medicine 02/13/19 Fabian Perkins, RN [address] [place] [address] Registered Nurse Family Medicine 08/04/24 12/15/24 Kelly Andres 08/04/24 12/15/24 Martha Mast Meat PullerDirector Aeronautics Commission 07/20/23 Alyssia TAYLOR 09/04/24 documented as of this encounter
--- OUTSIDE RECORDS SUMMARY | 2024-12-18 15:18 | XMS_ITS | Encounter Summary ---
Author Organization [employer] Address [address] [facility] [address]t [place] [address] Care Team Providers Care Toll Lineman Name Role Phone Ting Packer MD Primary Care Provide r Fabian Perkins RN Unavailable [phone] Kelly Andres Unavailable Reason for Visit * Reason Comments Med Refill Encounter Details Date Type Department Care Team ([facility] st Contact Info) Description 01/31/2024 Refill [facility] [address] [place], [place] [phone] Ting Packer MD [address] [place], [place] [phone] COPD exacerbation (CMS/HCC) Social History Tobacco Use [...] this encounter Visit Diagnoses Diagnosis COPD exacerbation (CMS/HCC) (HCC) Obstructive chronic bronchitis with exacerbation documented in this encounter Additional Health Concerns Assessment Noted Time PHQ-9 Depression Total Score: 3 09/18/19 24 2:01 PM EDT documented as of this encounter Care Teams Toll Lineman Relationship Specialty Start Date End Date Ting Packer MD [address] [place] [address] PCP - General Family Medicine 02/13/19 Fabian Perkins RN [address] [place] [address] Registered Nurse Family Medicine 08/04/24 12/15/24 Kelly Andres 08/04/24 12/15/24 Martha Mast Database Marketing SpecialistElectrical Systems Design Engineer 07/20/23 Ramona TEVINA 09/04/24 documented as of this encounter
--- OUTSIDE RECORDS SUMMARY | 2024-12-18 15:18 | XMS_ITS | Encounter Summary ---
Author Organization [email or web address] Address [address] [facility] 7t [place] [address] Care Team Providers Care Addiction Psychiatrist Name Role Phone Ting Packer MD Primary Care Provide r Fabian Perkins RN Unavailable [phone] Kelly Andres Unavailable Reason for Visit * Reason Onset Date Comments HDF 11/13/2023 Encounter Details Date Type Department Care Team (Late st Contact Info) Description 11/13/2023 Telephone [facility] MEDICINE [address] [place], [place] [phone] Ting Packer MD [address] [place], [place] [phone] HDF Social History Tobacco Use Types Packs/Day [...] Admission/Visit 11/10/23 Date of Discharge 11/12/23 Facility [facility] Diagnosis Hypoxic respiratory failure Disposition Discharged [...] Wednesdays, and Walk-In Urgent Care Located in [facility] of [facility]. Patient provided with after-hours line for [facility], , which offer night time triage service and option to transfer to nurse practitioner manager provider if needed. CC will request Discharge [...] documented as of this encounter Care Teams Addiction Psychiatrist Relationship Specialty Start Date End Date Ting Packer MD [address] [place] [phone] PCP - General Family Medicine 02/13/19 Fabian Perkins, EMANUEL [address] [place] [address] Registered Nurse Family Medicine 08/04/24 12/15/24 Kelly Andres 08/04/24 12/15/24 Martha Mast Filer RepairerBargeman 07/20/23 Alyssia ABARCAA 09/04/24 documented as of this encounter
--- OUTSIDE RECORDS SUMMARY | 2024-12-18 15:18 | XMS_ITS | Encounter Summary ---
Author Organization [employer] Address [address] [facility] [address]t [place] [address] Care Team Providers Care Computer Systems Integrator Name Role Phone Ting Packer MD Primary Care Provide r Fabian Perkins RN Unavailable [phone] Kelly Andres Unavailable Reason for Visit * Reason Comments Med Refill Encounter Details Date Type Department Care Team (Late st Contact Info) Description 11/20/2024 Refill [facility] [address] [place], [place] [phone] Ting Packer MD [address] [place], [place] [phone] Chronic left-sided low back pain without sciatica [...] documented as of this encounter Care Teams Computer Systems Integrator Relationship Specialty Start Date End Date Ting Packer MD [address] [place] [address] PCP - General Family Medicine 02/13/19 Fabian Perkins, EMANUEL [address] [place] [address] Registered Nurse Family Medicine 08/04/24 12/15/24 Kelly Andres 08/04/24 12/15/24 Martha Mast Tariff InspectorJournalism Professor 07/20/23 Pico Rivera [facility] 09/04/24 documented as of this encounter
--- OUTSIDE RECORDS SUMMARY | 2024-12-18 15:18 | XMS_ITS | Encounter Summary ---
Author Organization [employer] Address 75 [facility] 7t [place] [address] Care Team Providers Care Hops Farmworker Name Role Phone Ting Packer MD Primary Care Provide r Fabian Perkins RN Unavailable [phone] Kelly Andres Unavailable Reason for Visit * Reason Onset Date Comments Referral 10/09/2024 Encounter Details Date Type Department Care Team (Late st Contact Info) Description 10/09/2024 Telephone [facility] MEDICINE 230 [place], [place] [phone] Ting Packer MD 230 [place], [place] [phone] Referral Social History Tobacco Use Types Packs/Day [...] 2:34 PM EDT Noted pt. Last saw [facility] cardiac surgery on 03/05/24. Office is requesting updated referral with Dx. I35. Please place if agreeable * Telephone Encounter - Jet Parisi - 10/09/2024 10:50 AM EDT TC from pt requesting new referral : DATE: 10/20/24 TIME: 10:20 AM Address: [address] [place] [address] [place] [address] Visits: 14 Facility Name: [facility] Type of Specialist: Cardiac Surgery DX: I35 Provider : Dr Justin Avelar Provider NPI : [id number] Facility Phone # : [phone] Fax #: [phone] documented in this encounter Plan of Treatment Not on file documented as of this encounter Visit Diagnoses Not on filedocumented in this encounter Additional Health Concerns Assessment Noted Time PHQ-9 Depression Total Score: 3 09/18/19 24 2:01 PM EDT documented as of this encounter Care Teams Hops Farmworker Relationship Specialty Start Date End Date Ting Packer MD 230 [place] [address] PCP - General Family Medicine 02/13/19 Fabian Perkins, RN [address] [place] [address] Registered Nurse Family Medicine 08/04/24 12/15/24 Kelly Andres 08/04/24 12/15/24 Martha Mast Consumer Loan UnderwriterDrug Abuse Technician 07/20/23 Alyssia ABARCAA 09/04/24 documented as of this encounter
--- OUTSIDE RECORDS SUMMARY | 2024-12-18 15:18 | XMS_ITS ---
Author Organization [employer] Address [address] [place] [address] 7 [place] [address] Care Team Providers Care Literacy Teacher Name Role Phone Ting Packer MD Primary Care Provide r [facility] Status:Closed (Closed) Start date:08/04/2024 Enrollment date:08/19/2024 Enrollment reason:ADT Feed End date:12/15/2024 Close reason:Declined Further Management Overview ED- Pt went to [facility] ED on 08/01/24. Continued Care and Services Coordination
--- OUTSIDE RECORDS SUMMARY | 2024-12-18 15:18 | XMS_ITS | Encounter Summary ---
Author Organization [employer] Address 75 [facility] 7t [place] [address] Care Team Providers Care Finance Attorney Name Role Phone Ting Packer MD Primary Care Provide r Fabian Perkins RN Unavailable [phone] Kelly Andres Unavailable Reason for Visit * Reason Comments Med Refill Encounter Details Date Type Department Care Team ([facility] st Contact Info) Description 01/29/2024 Refill [facility] MEDICINE 230 [place], [place] [phone] Ting Packer MD [address] [place], [place] [phone] COPD exacerbation (CMS/HCC) Social History Tobacco Use [...] documented as of this encounter Care Teams Finance Attorney Relationship Specialty Start Date End Date Ting Packer MD [address] [place] [address] PCP - General Family Medicine 02/13/19 Fabian Perkins RN [address] [place] [address] Registered Nurse Family Medicine 08/04/24 12/15/24 Kelly Andres 08/04/24 12/15/24 Martha Mast School Year NannySash Assembler 07/20/23 [place] TEVINA 09/04/24 documented as of this encounter
--- OUTSIDE RECORDS SUMMARY | 2024-12-18 15:18 | XMS_ITS | Encounter Summary ---
Author Organization [employer] Address 75 [facility] 7t [place] [address] Care Team Providers Care Real Estate Closer Name Role Phone Ting Packer MD Primary Care Provide r Fabian Perkins RN Unavailable [phone] Kelly Andres Unavailable Reason for Visit * Reason Comments Med Refill Encounter Details Date Type Department Care Team ([facility] st Contact Info) Description 2024 Refill [facility] MEDICINE 230 [place], [place] [phone] Ting Packer MD 230 [place], [place] [phone] Polyarthralgia Social History Tobacco Use Types Packs/Day [...] Time PHQ-9 Depression Total Score: 8 10/31/19 11:37 AM EDT documented as of this encounter Care Teams Real Estate Closer Relationship Specialty Start Date End Date Ting Packer MD 230 [place] [address] PCP - General Family Medicine 02/13/19 Fabian Perkins, RN [address] [place] [address] Registered Nurse Family Medicine 08/04/24 12/15/24 Kelly Andres 08/04/24 12/15/24 Martha Mast Sheet Metal ContractorJudicial Assistant 07/20/23 [facility] documented as of this encounter
--- OUTSIDE RECORDS SUMMARY | 2024-12-18 15:18 | XMS_ITS | Encounter Summary ---
Author Organization [employer] Address 75 [facility] 7t [place] [address] Care Team Providers Care Hand Cementer Name Role Phone Ting Packer MD Primary Care Provide r Fabian Perkins RN Unavailable [phone] Kelly Andres Unavailable Reason for Visit * Reason Comments Med Refill Encounter Details Date Type Department Care Team (Late st Contact Info) Description 06/08/2023 Refill [facility] 230 [place], [place] [phone] Ting Packer MD 230 [place], [place] [phone] Social History Tobacco Use Types Packs/Day Years [...] as of this encounter Care Teams Hand Cementer Relationship Specialty Start Date End Date Ting Packer MD 230 [place] [address] PCP - General Family Medicine 02/13/19 Fabian Perkins, RN [address] [place] [address] Registered Nurse Family Medicine 08/04/24 12/15/24 Kelly Andres 08/04/24 12/15/24 Martha Mast K9 HandlerEnterprise Project Manager 07/20/23 Alyssia ABARCAA 09/04/24 documented as of this encounter
--- OUTSIDE RECORDS SUMMARY | 2024-12-18 15:18 | XMS_ITS | Encounter Summary ---
Author Organization [employer] Address 75 [facility] 7t [place] [address] Care Team Providers Care Integration Engineer Name Role Phone Ting Packer MD Primary Care Provide r Fabian Perkins RN Unavailable [phone] Kelly Andres Unavailable Reason for Visit * Reason Onset Date Comments Med Refill 01/31/2024 Encounter Details Date Type Department Care Team (Late st Contact Info) Description 01/31/2024 Telephone [facility] MEDICINE 230 [place], [place] [phone] Ting Packer MD 230 [place], [place] [phone] Med Refill Social History Tobacco Use Types [...] 20 MG tablet To be sent to: [facility] documented in this encounter Plan of Treatment Not on file documented as of this encounter Visit Diagnoses Not on filedocumented in this encounter Additional Health Concerns Assessment Noted Time PHQ-9 Depression Total Score: 3 09/18/19 24 2:01 PM EDT documented as of this encounter Care Teams Integration Engineer Relationship Specialty Start Date End Date Ting Packer MD 230 [place] [address] PCP - General Family Medicine 02/13/19 Fabian Perkins, EMANUEL [address] [place] [address] Registered Nurse Family Medicine 08/04/24 12/15/24 Kelly Andres 08/04/24 12/15/24 Martha Mast Platform ConsultantTobacco Drummer 07/20/23 Alyssia TAYLOR 09/04/24 documented as of this encounter
--- OUTSIDE RECORDS SUMMARY | 2024-12-18 15:19 | XMS_ITS | Encounter Summary ---
Author Organization [employer] Address 75 [facility] 7t [place] [address] Care Team Providers Care Directory Clerk Name Role Phone Ting Packer MD Primary Care Provide r Fabian Perkins RN Unavailable [phone] Kelly Andres Unavailable Encounter Details Date Type Department Care Team (Late st Contact Info) Description 09/12/2023 Telephone [facility] MEDICINE 230 [place], [place] [phone] Ting Packer MD 230 [place], [place] [phone] Social History Tobacco Use Types Packs/Day Years [...] documented as of this encounter Care Teams Directory Clerk Relationship Specialty Start Date End Date Ting Packer MD [address] [place] [address] PCP - General Family Medicine 02/13/19 Fabian Perkins, EMANUEL [address] [place] [address] Registered Nurse Family Medicine 08/04/24 12/15/24 Kelly Andres 08/04/24 12/15/24 Martha Mast Life Insurance AgentManufacturing Cost Estimator 07/20/23 Alyssia ABARCAA 09/04/24 documented as of this encounter
--- OUTSIDE RECORDS SUMMARY | 2024-12-18 15:19 | XMS_ITS | Encounter Summary ---
Author Organization [employer] Address 75 [facility] 7t [place] [address] Care Team Providers Care Tar Boiler Name Role Phone Ting Packer MD Primary Care Provide r Fabian Perkins RN Unavailable [phone] Kelly Andres Unavailable Reason for Visit * Reason Comments Med Refill Encounter Details Date Type Department Care Team (Late st Contact Info) Description 03/23/2024 Refill [facility] MEDICINE 230 [place], [place] [phone] Ting Packer MD 230 [place], [place] [phone] Polyarthralgia Social History Tobacco Use Types Packs/Day [...] documented as of this encounter Care Teams Tar Boiler Relationship Specialty Start Date End Date Tign Packer MD 230 [place] [address] PCP - General Family Medicine 02/13/19 Fabian Perkins, EMANUEL [address] [place] [address] Registered Nurse Family Medicine 08/04/24 12/15/24 Kelly Andres 08/04/24 12/15/24 Martha Mast Sausage LinkerDegree Clerk 07/20/23 Alyssia ABARCAA 09/04/24 documented as of this encounter
--- OUTSIDE RECORDS SUMMARY | 2024-12-18 15:19 | XMS_ITS | Encounter Summary ---
Author Organization [employer] Address 75 [facility] 7t [place] [address] Care Team Providers Care Time Clock Inspector Name Role Phone Ting Packer MD Primary Care Provide r Fabian Perkins RN Unavailable Kelly Andres Unavailable Reason for Visit * Reason Onset Date Comments Hospital Follow-up 10/31/2023 Encounter Details Date Type Department Care Team ([facility] st Contact Info) Description 10/31/2023 Telephone [facility] MEDICINE 230 [place], [place] [phone] Ting Packer MD 230 [place], [place] [phone] Hospital Follow-up Social History Tobacco Use Types [...] documented as of this encounter Care Teams Time Clock Inspector Relationship Specialty Start Date End Date Ting Packer MD [address] [place] [address] PCP - General Family Medicine 02/13/19 Fabian Perkins RN [address] [place] [address] Registered Nurse Family Medicine 08/04/24 12/15/24 Kelly Andres 08/04/24 12/15/24 Martha Mast Bioinformatics SpecialistWaxer Floor 07/20/23 Alyssia TAYLOR 09/04/24 documented as of this encounter
--- OUTSIDE RECORDS SUMMARY | 2024-12-18 15:19 | XMS_ITS | Encounter Summary ---
Author Organization [employer] Address 75 [facility] 7t [place] [address] Care Team Providers Care Women'S Lacrosse Coach Name Role Phone Ting Packer MD Primary Care Provide r Fabian Perkins RN Unavailable [phone] Kelly Andres Unavailable Reason for Visit * Reason Comments Med Refill Encounter Details Date Type Department Care Team ([facility] st Contact Info) Description 02/21/2024 Refill [facility] MEDICINE 230 [place], [place] [phone] Dara Ricardo MD 230 [place], [place] [phone] Moderate persistent asthma with acute exacerbation Social [...] documented as of this encounter Care Teams Women'S Lacrosse Coach Relationship Specialty Start Date End Date Ting Packer MD 230 [place] [address] PCP - General Family Medicine 02/13/19 Fabian Perkins, RN [address] [place] [address] Registered Nurse Family Medicine 08/04/24 12/15/24 Kelly Andres 08/04/24 12/15/24 Martha Mast Direct Entry MidwifeAdministrative Services Officer 07/20/23 Alyssia A 09/04/24 documented as of this encounter
--- OUTSIDE RECORDS SUMMARY | 2024-12-18 15:19 | XMS_ITS | Encounter Summary ---
Author Organization [employer] Address [address] [facility] 7t [place] [address] Care Team Providers Care Non Profit Financial Controller Name Role Phone Ting Packer MD Primary Care Provide r Fabian Perkins RN Unavailable [phone] Kelly Andres Unavailable Reason for Visit * Reason Onset Date Comments Hospital Follow-up 08/09/2023 Encounter Details Date Type Department Care Team ([facility] st Contact Info) Description 08/09/2023 Telephone [facility] MEDICINE 230 [place], [place] [phone] Ting Packer MD 230 [place], [place] [phone] Hospital Follow-up Social History Tobacco Use Types [...] from pt requesting a HDF appt. Hospital: 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 documented in this encounter Plan of Treatment Not on file documented as of this encounter Visit Diagnoses Not on filedocumented in this encounter Additional Health Concerns Assessment Noted Time PHQ-9 Depression Total Score: 6 05/24/19 23 1:28 PM EDT documented as of this encounter Care Teams Non Profit Financial Controller Relationship Specialty Start Date End Date Ting Packer MD 230 [place] [address] PCP - General Family Medicine 02/13/19 Fabian Perkins, EMANUEL [address] [place] [address] Registered Nurse Family Medicine 08/04/24 12/15/24 Kelly Andres 08/04/24 12/15/24 Martha Mast Film ComposerField Identification Specialist 07/20/23 [facility] 09/04/24 documented as of this encounter
--- OUTSIDE RECORDS SUMMARY | 2024-12-18 15:19 | XMS_ITS | Encounter Summary ---
Author Organization [employer] Address 75 [facility] 7t [place] [address] Care Team Providers Care Experimental Mechanic Electrical Name Role Phone Ting Packer MD Primary Care Provide r Fabian Perkins RN Unavailable [phone] Kelly Andres Unavailable Encounter Details Date Type Department Care Team (Late st Contact Info) Description 12/15/2024 Refill [facility] MEDICINE 230 [place], [place] [phone] Ting Packer MD 230 [place] [address] Polyarthralgia Social History Tobacco Use Types Packs/Day [...] documented as of this encounter Care Teams Experimental Mechanic Electrical Relationship Specialty Start Date End Date Ting Packer MD 230 [place] [address] PCP - General Family Medicine 02/13/19 Fabian Perkins, RN [address] [place] [address] Registered Nurse Family Medicine 08/04/24 12/15/24 Kelly Andres 08/04/24 12/15/24 Martha Mast Assistant Media PlannerDirector Gift 07/20/23 [facility] documented as of this encounter
--- OUTSIDE RECORDS SUMMARY | 2024-12-18 15:19 | XMS_ITS | Encounter Summary ---
Author Organization [employer] Address 75 [facility] 7t [place] [address] Care Team Providers Care Meat Counter Worker Name Role Phone Ting Packer MD Primary Care Provide r Fabian Perkins RN Unavailable [phone] Kelly Andres Unavailable Reason for Visit * Reason Onset Date Comments Appointment Request 05/01/2024 Encounter Details Date Type Department Care Team ([facility] st Contact Info) Description 05/01/2024 Telephone [facility] MEDICINE 230 [place], [place] [phone] Ting Packer MD 230 [place], [place] [phone] Appointment Request Social History Tobacco Use Types [...] 05/01/2024 11:19 AM EST Tc from pt's BLEND TECHNICIAN requesting reschedule 05/01 office visit appt, states can only on Mondays since ptdon't have transportation. [phone] Marielos BLEND TECHNICIAN documented in this encounter Plan of Treatment Not on file documented as of this encounter Visit Diagnoses Not on filedocumented in this encounter Additional Health Concerns Assessment Noted Time PHQ-9 Depression Total Score: 3 09/18/19 24 2:01 PM EDT documented as of this encounter Care Teams Meat Counter Worker Relationship Specialty Start Date End Date Ting Packer MD 230 [place] [address] PCP - General Family Medicine 02/13/19 Fabian Perkins, EMANUEL [address] [place] [address] Registered Nurse Family Medicine 08/04/24 12/15/24 Kelly Andres 08/04/24 12/15/24 Martha Mast Plate MounterGround School Instructor 07/20/23 Alyssia TAYLOR 09/04/24 documented as of this encounter
--- OUTSIDE RECORDS SUMMARY | 2024-12-18 15:19 | XMS_ITS | Encounter Summary ---
Author Organization [employer] Address 75 [facility] 7t [place] [address] Care Team Providers Care Head Of Loss Prevention Name Role Phone Ting Packer MD Primary Care Provide r Fabian Perkins RN Unavailable [phone] Kelly Andres Unavailable Reason for Visit * Reason Onset Date Comments Nurse Triage 07/28/2024 Encounter Details Date Type Department Care Team (Late st Contact Info) Description 07/28/2024 Telephone [facility] MEDICINE 230 [place], [place] [phone] Ting Packer MD 230 [place], [place] [phone] Nurse Triage Social History Tobacco Use Types [...] EDT Triage call with [facility] [id number]. Pt reports shoulder pain, back pain and [...] documented as of this encounter Care Teams Head Of Loss Prevention Relationship Specialty Start Date End Date Ting Packer MD [address] [place] [address] PCP - General Family Medicine 02/13/19 Fabian Perkins RN [address] [place] [address] Registered Nurse Family Medicine 08/04/24 12/15/24 Kelly Andres 08/04/24 12/15/24 Martha Mast Fast Food Services ManagerRating Specialist 07/20/23 lAyssia ABARCAA 09/04/24 documented as of this encounter
--- OUTSIDE RECORDS SUMMARY | 2024-12-18 15:19 | XMS_ITS | Encounter Summary ---
Author Organization [employer] Address 75 [facility] 7t [place] [address] Care Team Providers Care Infrastructure Tech Name Role Phone Ting Packer MD Primary Care Provide r Encounter Details Date Type Department Care Team (Late st Contact Info) Description 12/18/2024 Orders Only GENERIC EXTERNAL DATA DEPARTMENT Provider, Generic External Data Social History Tobacco Use Types Packs/Day Years [...] Procedure Name Priority Date/Time Associated Diagnosis Comments TSH W/REFLEX TO FT4 Routine 12/18/2024 1 :41 PM EDT VITAMIN B12 Routine 12/18/2024 1:41 PM EDT documented in this encounter Results * (ABNORMAL) Vitamin B12 (12/18/2024 1:41 PM EDT) Vitamin B12 >2,000(H) 200 - 900 pg/mL [facility] Comment:NORMAL 200-900 PG/ML INDETERMINATE 160-199 PG/ML DEFICIENT < 160 PG/ML 12/18/2024 1:41 PM EDT 12/18/2024 1:41 PM EDT us Generic External Data Provider LAB BLOOD ORDERAB LES Final Result [facility] [address] [place] [phone] * TSH with Reflex to Free T4 (12/18/2024 1:41 PM EDT) TSH reflex Free T4 1.25 0.32 - 4.0 uIU/mL [facility] 12/18/2024 1:41 PM EDT 12/18/2024 1:41 PM EDT us Generic External Data Provider LAB BLOOD ORDERAB LES Final Result [facility] [address] [place] [address] [phone] documented in this encounter Visit Diagnoses Not on filedocumented in this encounter Additional Health Concerns Assessment Noted Time PHQ-9 Depression Total Score: 8 10/31/19 25 11:37 AM EDT documented as of this encounter Care Teams Infrastructure Tech Relationship Specialty Start Date End Date Ting Packer MD [address] [place] [address] PCP - General Family Medicine 02/13/19 Martha Mast Home Office Claim SpecialistRoad Traffic Controller 07/20/23 Alyssia ABARCAA 09/04/24 documented as of this encounter
--- OUTSIDE RECORDS SUMMARY | 2024-12-18 15:19 | XMS_ITS | Encounter Summary ---
Author Organization [employer] Address 75 [facility] 7t [place] [address] Care Team Providers Care Public Welfare Director Name Role Phone Ting Packer MD Primary Care Provide r Fabian Perkins RN Unavailable [phone] Kelly Andres Unavailable Encounter Details Date Type Department Care Team (Late st Contact Info) Description 02/29/2024 Telephone [facility] MEDICINE 230 [place], [place] [phone] Ting Packer MD 230 [place], [place] [phone] Social History Tobacco Use Types Packs/Day Years [...] documented as of this encounter Care Teams Public Welfare Director Relationship Specialty Start Date End Date Ting Packer MD [address] [place] [address] PCP - General Family Medicine 02/13/19 Fabian Perkins, RN [address] [place] [address] Registered Nurse Family Medicine 08/04/24 12/15/24 Kelly Andres 08/04/24 12/15/24 Martha Mast Dish Machine OperatorAssociate Buyer 07/20/23 Alyssia ABARCAA 09/04/24 documented as of this encounter
--- OUTSIDE RECORDS SUMMARY | 2024-12-18 15:19 | XMS_ITS | Encounter Summary ---
Author Organization [employer] Address 75 [facility] 7t [place] [address] Care Team Providers Care Travel Rn Or Name Role Phone Ting Packer MD Primary Care Provide r Fabian Perkins RN Unavailable [phone] Kelly Andres Unavailable Reason for Visit * Reason Onset Date Comments PT1 09/12/2023 Encounter Details Date Type Department Care Team ([facility] st Contact Info) Description 09/12/2023 Telephone [facility] MEDICINE 230 [place], [place] [phone] Ting Packer MD 230 [place], [place] [phone] PT1 Social History Tobacco Use Types Packs/Day [...] 09/12/2023 9:39 AM EDT Sandra with [employer] calling requesting PT1 Home Address verified: Y/N: Yes Provider name or facility name: [facility] Facility Address: [address] [place] [address] Escort needed: Y/N: Yes Do you have a wheelchair: Y/N: No If yes- Manual or electric: No Visits: All future Visits Sandra with [employer] calling requesting PT1 Home Address verified: Y/N: Yes Provider name or facility name: [facility] Facility Address: [address] [place] [address] Escort needed: Y/N: Yes Do you have [...] documented as of this encounter Care Teams Travel Rn Or Relationship Specialty Start Date End Date Ting Packer MD [address] [place] [address] PCP - General Family Medicine 02/13/19 Fabian Perkins RN [address] [place] [address] Registered Nurse Family Medicine 08/04/24 12/15/24 Kelly Andres 08/04/24 12/15/24 Martha Mast Logging SupervisorOrthodontic Technician Assistant 07/20/23 Alyssia TAYLOR 09/04/24 documented as of this encounter
--- OUTSIDE RECORDS SUMMARY | 2024-12-18 15:19 | XMS_ITS | Encounter Summary ---
Author Organization [employer] Address 75 [facility] 7t [place] [address] Care Team Providers Care Freelance Photographer Name Role Phone Ting Packer MD Primary Care Provide r Fabian Perkins RN Unavailable [phone] Kelly Andres Unavailable Reason for Visit * Reason Onset Date Comments Med Refill Pt family member walked in with pt on the phone. Pt spoke with fd and is complaining of left shoulder pain. Pt states she has been in pain for x4 days. Pt is requesting urgent appt and only want pcp. Pt can be reached at [phone]. Routing message to team nurses. appt request 06/19/2024 Encounter Details Date Type Department Care Team (Late st Contact Info) Description 06/19/2024 Telephone [facility] MEDICINE 230 [place], [place] [phone] Ting Packer MD 230 [place], [place] [phone] Med Refill (Pt family member walked in with pt on the phone. Pt spoke with fd and is complaining of left shoulder pain. Pt states she has been in pain for x4 days. Pt is requesting urgent appt and only want pcp. Pt can be reached at [phone]. Routing message to team nurses.); appt request [...] only want pcp.Pt can be reached at [phone]. Routing message to team nurses. documented in [...] documented as of this encounter Care Teams Freelance Photographer Relationship Specialty Start Date End Date Ting Packer MD [address] [place] [address] PCP - General Family Medicine 02/13/19 Fabian Perkins, EMANUEL [address] [place] [address] Registered Nurse Family Medicine 08/04/24 12/15/24 Kelly Andres 08/04/24 12/15/24 Martha Mast Linotype Machinist ApprenticeTrick Rodeo Rider 07/20/23 Alyssia ABARCAA 09/04/24 documented as of this encounter
--- OUTSIDE RECORDS SUMMARY | 2024-12-18 15:19 | XMS_ITS | Encounter Summary ---
Author Organization [employer] Address 75 [facility] 7t [place] [address] Care Team Providers Care Line Inspector Name Role Phone Ting Packer MD Primary Care Provide r Fabian Perkins RN Unavailable [phone] Kelly Andres Unavailable Reason for Visit * Reason Comments Med Refill Encounter Details Date Type Department Care Team ([facility] st Contact Info) Description 09/17/2023 Refill [facility] PEDS [address] [place], [place] [phone] Ting Packer MD [address] [place] [address] Sleeping difficulty Social History Tobacco Use Types [...] documented as of this encounter Care Teams Line Inspector Relationship Specialty Start Date End Date Ting Packer MD [address] [place] [address] PCP - General Family Medicine 02/13/19 Fabian Perkins, RN [address] [place] [address] Registered Nurse Family Medicine 08/04/24 12/15/24 Kelly Andres 08/04/24 12/15/24 Martha Mast Integration ConsultantPhilatelic Consultant 07/20/23 Alyssia TAYLOR 09/04/24 documented as of this encounter
--- OUTSIDE RECORDS SUMMARY | 2024-12-18 15:19 | XMS_ITS | Encounter Summary ---
Author Organization [employer] Address 75 [facility] 7t [place] [address] Care Team Providers Care Surgical Coder Name Role Phone Ting Packer MD Primary Care Provide r Fabian Perkins RN Unavailable [phone] Kelly Andres Unavailable Reason for Visit * Reason Comments Care Coordination C3 PETER salmeron telephone call outreach Encounter Details Date Type Department Care Team (Latest Contact Info) Description 12/15/2024 Patient Outreach [facility] MEDICINE [address] [place] [address] Ting Packer MD [address] [place] [address] Care Coordination (C3 PETER Andres telephone call outreach ) Social History Tobacco Use Types Packs/Day Years [...] AM EDT documented as of this encounter Progress Notes * Kelly Andres - 12/15/2024 1:57 PM EDT CHW Kelly Andres placed six outreach calls to patient to introduce Complex Care Program. LVM with each call describing the program and requesting call back to CHW's direct line, . Patient's name, and Address was not confirmed. CHW did not receive any return calls from the patient. Onlast call provided patient with direct contact information for future reference. Case closed due tounable to reach. documented in this encounter Plan of Treatment Not on file documented as of this encounter Visit Diagnoses Not on filedocumented in this encounter Additional Health Concerns Assessment Noted Time PHQ-9 Depression Total Score: 8 10/31/19 25 11:37 AM EDT documented as of this encounter Care Teams Surgical Coder Relationship Specialty Start Date End Date Ting Packer MD [address] [place] [address] PCP - General Family Medicine 02/13/19 Fabian Perkins, RN [address] [place] [address] Registered Nurse Family Medicine 08/04/24 12/15/24 Kelly Andres 08/04/24 12/15/24 Martha Mast Ops AnalystRetail Beauty Specialist 07/20/23 Alyssia ABARCAA 09/04/24 documented as of this encounter
--- OUTSIDE RECORDS SUMMARY | 2024-12-18 15:19 | XMS_ITS | Encounter Summary ---
Author Organization [employer] Address 75 [facility] 7t [place] [address] Care Team Providers Care Industrial Chemistry Teacher Name Role Phone Ting Packer MD Primary Care Provide r Fabian Perkins RN Unavailable [phone] Kelly Andres Unavailable Reason for Visit * Reason Onset Date Comments Hospital Follow-up 03/22/2023 Encounter Details Date Type Department Care Team ([facility] st Contact Info) Description 03/22/2023 Telephone [facility] MEDICINE [address] [place], [place] [phone] Ting Packer MD [address] [place], [place] [phone] Hospital Follow-up Social History Tobacco Use Types [...] from pt requesting a HDF appt. Hospital: [facility] Date of admission: [facility]: 03/14 [facility]:03/15 Discharge date: [facility]:03/15 [facility]: 03/17 Diagnosed: asthma and COPD Please contact pt at [phone] (Welsh) documented in this encounter Plan of Treatment Not on file documented as of this encounter Visit Diagnoses Not on filedocumented in this encounter Additional Health Concerns Assessment Noted Time PHQ-9 Depression Total Score: 6 05/24/19 23 1:28 PM EDT documented as of this encounter Care Teams Industrial Chemistry Teacher Relationship Specialty Start Date End Date Ting Packer MD [address] [place] [address] PCP - General Family Medicine 02/13/19 Fabian Perkins, EMANUEL [address] [place] [address] Registered Nurse Family Medicine 08/04/24 12/15/24 Kelly Andres 08/04/24 12/15/24 Martha Mast Oil Pit AttendantGrade Recorder 07/20/23 [facility] 09/04/24 documented as of this encounter
--- OUTSIDE RECORDS SUMMARY | 2024-12-18 15:19 | XMS_ITS | Encounter Summary ---
Author Organization [employer] Address 75 [facility] 7t [place] [address] Care Team Providers Care Purchasing/Receiving Name Role Phone Ting Packer MD Primary Care Provide r Fabian Perkins RN Unavailable [phone] Kelly Andres Unavailable Reason for Visit * Reason Comments Med Refill Encounter Details Date Type Department Care Team (Late st Contact Info) Description 10/26/2023 Refill [facility] MEDICINE [address] [place], [place] [phone] Ting Packer MD [address] [place], [place] [phone] Moderate persistent asthma with acute exacerbation Social [...] documented as of this encounter Care Teams Purchasing/Receiving Relationship Specialty Start Date End Date Ting Packer MD [address] [place] [address] PCP - General Family Medicine 02/13/19 Fabian Perkins, RN [address] [place] [address] Registered Nurse Family Medicine 08/04/24 12/15/24 Kelly Andres 08/04/24 12/15/24 Martha Mast Traffic Operations EngineerStation Air Traffic Control Specialist 07/20/23 [facility] 09/04/24 documented as of this encounter
== END 2024-12-18 13:16 | disposition home or self-care (01) ==
LOC: HO.HSM 12:08
PROVIDERS: PCP Internal Medicine; Visit Provider Nurse Practitioner
DX: F03.90 Unspecified dementia, unspecified severity, without behavioral disturbance, psychotic disturbance, mood disturbance, and anxiety (principal)
CPT/HCPCS: 99204

== ENCOUNTER 2025-02-09 15:37 | Outpatient (AMB) | payer MEDICAID, SELFPAY ==
--- NOTE | 2025-02-09 15:46 | A.OFFVIS_ITS ---
Vital Signs 02/09/25 15:52 Height 4 ft 11 in Weight 156 lb BMI 31.5 BP 108/70 Blood Pressure Location Rt brachial Position Sitting Respiration 16 Pulse 62 Pulse Source Pulse Oximeter Pulse Oximetry (%) 97 Oxygen Delivery Method Room Air Intake Visit Reasons: 2m [facility] Broaching Machine Set Up Operator Required: Yes Information Interpreted: non-clinical & clinical Accompanied by: Son Allergies latex (LATEX) Allergy (Severe, Verified 02/09/25 15:53) DIFFICULTY BREATHING aspirin (Aspirin) Allergy (Intermediate, Verified 02/09/25 15:53) ITCHING, itchiness ciprofloxacin (From CIPRO) Allergy (Intermediate, Verified 02/09/25 15:53) DIAPHORESIS/PURITIS Penicillins (PENICILLINS) Allergy (Unknown, Verified 02/09/25 15:53) UNKNOWN HEMALATHA Inhibitors (HEMALATHA INHIBITORS) Adverse Reaction (Intermediate, Verified 02/09/25 15:53) COUGH HPI Comments Details: Ting is a 64-year-old female patient presenting to the clinic for follow up visit regarding increased forgetfulness. She has a pre-existing medical history of hypertension, remote history of crack cacaine use, cardiac pacemaker in-situ, prediabetes, moderate asthma, coronary artery disease, urinary incontinence, migraine, and insomnia. At the time of her initial visit with me on 12/18/2024, her son who accompanied her, explained that other family members and he himself had noticed some changes in his mother's memory over the course of the last few years but more profoundly over the course of the last 45 months. Her son explained that her memory has been very bad lately. For example, they just recently went for a real ID and he had to repeat himself several times the same thing. She is also forgetting family members names and conversations that she has had with family members. Her father did have a history of Alzheimers dementia She is currently living alone in an apartment but she has a RISK LEAD and frequent family members in and out of the house. Her gait has slowed drastically though she does report some left leg pain. She does have baseline urinary difficulties such as incontinence and urgency and at times retention. This is not a recent change. At the time of her initial visit, her Ellinwood score was 3/30 (with 1 point given for <12 years of schooling). Based on the findings, she would not be a good candidate for the more novel Alzheimer's medications. I did perform labs including a B12 and TSH level which were within normal limits. I started her on memantine 5 mg twice daily and counseled them on the importance of remaining social, active, and maintaining a balanced diet. Ting and her son today report that since starting on the memantine, they have both noticed somewhat of an improvement in her clarity and overall activity. She feels slightly more active and able to perform day-to-day tasks without difficulty. She is tolerating the medication well. Since her last visit, she also had a valve replacement that was performed percutaneously. She was discharged from the hospital 24 hours after the procedure and has been doing well without any complications. She does note some ongoing left shoulder pain which has been going on for many months even prior to her valve replacement surgery. She has not seen primary care for this but does see Cardiology on the . There has not been any changes in his pain. She denies any weakness or paresthesias to that extremity. Prior workup: A CT scan of the brain from 08/30/2024 shows mild generalized cerebral atrophy but otherwise no acute findings. Ventricles are within normal size limit. [facility] Medical History (Updated 02/10/25 @ 09:39 by Carol Yeboah CNP) Aortic valve disease Heart murmur COVID Swelling of left wrist Eosinophilia Severe aortic stenosis COPD (chronic obstructive pulmonary disease) Pacemaker Asthma with exacerbation Smoking Restrictive airway disease MARY (obstructive sleep apnea) MARY on CPAP Reactive airways dysfunction syndrome Rheumatoid arthritis Fibromyalgia GERD (gastroesophageal reflux disease) MARY (obstructive sleep apnea) Aortic valve endocarditis COPD (chronic obstructive pulmonary disease) COPD exacerbation Overactive bladder Bronchitis Allergic rhinitis COPD (chronic obstructive pulmonary disease) Asthma Hx of cardiac pacemaker Hx of migraines Hx of coronary artery disease History of urinary incontinence Hx of essential hypertension History of depression Hx of drug abuse Hx of hyperlipidemia Hx of allergic rhinitis History of enuresis Hx of osteoarthritis Hx of pilonidal cyst Family history of GERD History of arthritis Hx of diabetes mellitus Surgical History History of surgical removal of pilonidal cyst Hx of bilateral cataract extraction Hx of colonoscopy History of cystoscopy History of hysterectomy Hx of aortic valve replacement Hx laparoscopic cholecystectomy History of epidermal inclusion cyst excision Social History Household Members: Unknown / Unable to assess Household Members Other:: son Housing: Apartment Do you presently have visiting nurse or other home services: Yes (RISK LEAD everyday) Alcohol intake: never Comment: refusing alarms Patient Tobacco Use Status: Former Tobacco user Tobacco use type: Cigarette Cigarettes Per Day: 3 e-Cigarette/Vaping Use: Never Used Second Hand Smoke Exposure: No Substance Use Type: Former Substance User Advance Directives Date on File: 11/08/21 service: No Current occupational status: unemployed and disabled Review of Systems Const All systems reviewed & are unremarkable except as noted in HPI and below ENT Reports Normal hearing present Neuro Reports Normal hearing present and Reports confusion Psych Reports confusion Physical Exam Vital Signs: Last Vital Signs Pulse 62 02/09/25 15:52 Resp 16 02/09/25 15:52 BP 108/70 02/09/25 15:52 Pulse Ox 97 02/09/25 15:52 Oxygen Delivery Method Room Air 02/09/25 15:52 BMI result Body Mass Index 31.5 Const General: confusion Orientation/consciousness: oriented to person, oriented to place, No oriented to time and confusion Eyes Pupils: Equal, round and reactive pupils present Neuro Other: 12/18/2024 MOCA: MOCA total:230 (1 point given for <12 years school= 330) Executive:0/5 Namin/3 Attention:0/6 Language:0/3 Abstraction:0/2 Delayed recall:0/5 Orientation:2/6 General: oriented to person, oriented to place, No oriented to time and confusion Cranial nerves: Yes Equal, round and reactive pupils present, Yes Midline tongue present and Yes Normal hearing present Cognition (Neuro): abnormal cognition Gait exam (Neuro): Ataxic gait present and Other gait observations present (slow and magnetic ) Motor exam (neuro): Tremors during motor activity present (jaw tremor ) Deep tendon reflexes (DTR's): Right triceps reflex intensity grade: 2+, Left triceps reflex intensity grade: 2+, Rt Biceps (C5, C6): 2+, Left biceps reflex intensity grade: 2+, Right brachioradialis reflex intensity grade: 2+, Left brachioradialis reflex intensity grade: 2+, Right patellar reflex intensity grade: 2+, Left patellar reflex intensity grade: 2+, Right ankle reflex intensity grade: 2+ and Left ankle reflex intensity grade: 2+ Psych Appearance: grossly normal Speech and movement: Slowed speech present (Psych) Affect: Irritable affect present (irritable at times ) and Blunted affect present Insight: Poor insight present (Psych) Judgement: Poor judgement present (Psych) Assessment & Plan Assessment & Plan (1) Alzheimer dementia: Code(s): G30.9 - Alzheimer's disease, unspecified; F02.80 - Dementia in other diseases classified elsewhere, unspecified severity, without behavioral disturbance, psychotic disturbance, mood disturbance, and anxiety Category: Medical Plan Ting is a 64-year-old female patient presenting to the clinic for follow up visit regarding increased forgetfulness. She has a pre-existing medical history of hypertension, remote history of crack cacaine use, cardiac pacemaker in-situ, prediabetes, moderate asthma, coronary artery disease, urinary incontinence, migraine, and insomnia. Her Ellinwood score at of initial visit was 3/30. I did start her on memantine 5 mg twice daily and she is tolerating this well and has seen some benefit. She recently had a valve replacement and has been doing well after the procedure. She does note some ongoing left shoulder pain without any weakness or paresthesias to the left upper extremity. I will give her some lidocaine patches until she can see primary care for further evaluation of her pain. She also has an appointment with Cardiology upcoming on the . -continue memantine 5 mg twice daily -remain social, active, and continue a balanced diet -lidocaine patches for left shoulder sent to the pharmacy -patient will follow up with primary care and Cardiology as indicated -follow up with me in 6 months or sooner if needed Medications: New lidocaine 4% 1 patch topical BID PRN 10 ea 3RF pain Coding Level of Care Code Est Pt Level 3 (02407) Diagnoses Alzheimer dementia G30.9; F02.80
[2025-02-09 15:52] VITALS: BP 108/70; PULSE 62; RESP 16; O2SAT 97; BMI 31.5
--- OUTSIDE RECORDS SUMMARY | 2025-02-09 22:03 | XMS_ITS | Encounter Summary ---
Author Organization [employer] Address 75 [facility] 7t [place] [address] Care Team Providers Care Supervisor Liquefaction Name Role Phone Ting Packer MD Primary Care Provide r Fabian Perkins RN Unavailable [phone] Kelly Andres Unavailable Jolynn Santos RN Unavailable [phone] Kelly Andres Unavailable Reason for Visit * Reason Onset Date Comments [facility] 02/21/2023 Encounter Details Date Type Department Care Team (Late st Contact Info) Description 02/21/2023 Telephone [facility] MEDICINE [address] [place], [place] [phone] Ting Packer MD [address] [place], [place] [phone] [facility] Social History Tobacco Use Types [...] that since November 30, 2022 her BUSINESS PLANNER Has not been getting paid for his services and [facility] has advised pt that provider needs to filled out a Filled Authorization form in order for BUSINESS PLANNER to get paid and must be Submitted through [employer]. Please contact Pt @ [phone] documented in this encounter Plan of Treatment Not on file documented as of this encounter Visit Diagnoses Not on filedocumented in this encounter Additional Health Concerns Assessment Noted Time PHQ-9 Depression Total Score: 6 05/24/19 23 1:28 PM EDT documented as of this encounter Care Teams Supervisor Liquefaction Relationship Specialty Start Date End Date Ting Packer MD [address] [place] [address] PCP - General Family Medicine 02/13/19 Fabian Perkins, RN [address] [place] [address] Registered Nurse Family Medicine 08/04/24 12/15/24 Kelly Andres 08/04/24 12/15/24 Jolynn Santos, EMANUEL [address] [place] [address] [place] [address] Registered Nurse Family Medicine 01/14/25 Kelly Andres 01/14/25 Martha Mast Returned Materials InspectorSpecialty Development Consultant 07/20/23 Alyssia ABARCAA 09/04/24 documented as of this encounter
--- OUTSIDE RECORDS SUMMARY | 2025-02-09 22:03 | XMS_ITS | Encounter Summary ---
Author Organization [employer] Address 75 [facility] 7t [place] [address] Care Team Providers Care Travel Administrator Name Role Phone Ting Packer MD Primary Care Provide r Fabian Perkins RN Unavailable [phone] Kelly Andres Unavailable Jolynn Santos RN Unavailable [phone] Kelly Andres Unavailable Reason for Visit * Reason Onset Date Comments Hospital Follow-up 08/09/2023 Encounter Details Date Type Department Care Team (Late st Contact Info) Description 08/09/2023 Telephone [facility] MEDICINE [address] [place] [address] Ting Packer MD [address] [place], [place] [phone] Hospital Follow-up Social History Tobacco Use Types [...] from pt requesting a HDF appt. Hospital: [facility] Date of admission: 08/05 Discharge date: 08/07 Diagnosed: Peacemaker in heart documented in this encounter Plan of Treatment Not on file documented as of this encounter Visit Diagnoses Not on filedocumented in this encounter Additional Health Concerns Assessment Noted Time PHQ-9 Depression Total Score: 6 05/24/19 23 1:28 PM EDT documented as of this encounter Care Teams Travel Administrator Relationship Specialty Start Date End Date Ting Packer MD [address] [place] [address] PCP - General Family Medicine 02/13/19 Fabian Perkins RN [address] [place] [address] Registered Nurse Family Medicine 08/04/24 12/15/24 Kelly Andres 08/04/24 12/15/24 Jolynn Santos RN [address] [place] [address] Registered Nurse Family Medicine 01/14/25 Kelly Andres 01/14/25 Martha Mast Team Assembly Line Machine OperatorBinding End Stitcher 07/20/23 Alyssia TAYLOR 09/04/24 documented as of this encounter
--- OUTSIDE RECORDS SUMMARY | 2025-02-09 22:03 | XMS_ITS | Encounter Summary ---
Author Organization [employer] Address 75 [facility] 7t [place] [address] Care Team Providers Care Ride Mechanic Name Role Phone Ting Packer MD Primary Care Provide r Fabian Perkins RN Unavailable [phone] Kelly Andres Unavailable Jolynn Santos RN Unavailable [phone] Kelly Andres Unavailable Reason for Visit * Reason Comments Med Refill Encounter Details Date Type Department Care Team (Late st Contact Info) Description 11/20/2024 Refill [facility] MEDICINE [address] [place], [place] [phone] Ting Packer MD [address] [place], [place] [phone] Chronic left-sided low back pain without sciatica [...] documented as of this encounter Care Teams Ride Mechanic Relationship Specialty Start Date End Date Ting Packer MD [address] [place] [address] PCP - General Family Medicine 02/13/19 Fabian Perkins, EMANUEL [address] [place] [address] Registered Nurse Family Medicine 08/04/24 12/15/24 Kelly Andres 08/04/24 12/15/24 Jolynn Santos RN [address] [place] [address] Registered Nurse Family Medicine 01/14/25 Kelly Andres 01/14/25 Martha Mast CraPower Tool Repair Technician 07/20/23 Alyssia TAYLOR 09/04/24 documented as of this encounter
--- OUTSIDE RECORDS SUMMARY | 2025-02-09 22:03 | XMS_ITS | Encounter Summary ---
Author Organization [employer] Address 75 [facility] 7t [place] [address] Care Team Providers Care Food Order Delivery Runner Name Role Phone Ting Packer MD Primary Care Provide r Fabian Perkins RN Unavailable [phone] Kelly Andres Unavailable Jolynn Santos RN Unavailable [phone] Kelly Andres Unavailable Reason for Visit * Reason Comments Med Refill Encounter Details Date Type Department Care Team (Late st Contact Info) Description 06/08/2023 Refill [facility] [address] [place], [place] [phone] Ting Packer MD [address] [place], [place] [phone] Social History Tobacco Use Types Packs/Day Years [...] documented as of this encounter Care Teams Food Order Delivery Runner Relationship Specialty Start Date End Date Ting Packer MD [address] [place] [address] PCP - General Family Medicine 02/13/19 Fabian Perkins RN [address] [place] [address] Registered Nurse Family Medicine 08/04/24 12/15/24 Kelly Andres 08/04/24 12/15/24 Jolynn Santos RN [address] [place] [address] Registered Nurse Family Medicine 01/14/25 Kelly Andres 01/14/25 Martha Mast Rugby League FootballerStaffing Branch Manager 07/20/23 Alyssia ABARCAA 09/04/24 documented as of this encounter
--- OUTSIDE RECORDS SUMMARY | 2025-02-09 22:03 | XMS_ITS | Encounter Summary ---
Author Organization [employer] Address 75 [facility] 7t [place] [address] Care Team Providers Care Sales And Training Specialist Name Role Phone Ting Packer MD Primary Care Provide r Fabian Perkins RN Unavailable [phone] Kelly Andres Unavailable Jolynn Santos RN Unavailable [phone] Kelly Andres Unavailable Reason for Visit * Reason Onset Date Comments Hospital Follow-up 10/31/2023 Encounter Details Date Type Department Care Team (Late st Contact Info) Description 10/31/2023 Telephone [facility] MEDICINE [address] [place], [place] [phone] Ting Packer MD 230 [place], [place] [phone] Hospital Follow-up Social History Tobacco Use Types [...] documented as of this encounter Care Teams Sales And Training Specialist Relationship Specialty Start Date End Date Ting Packer MD [address] [place] [address] PCP - General Family Medicine 02/13/19 Fabian Perkins, EMANUEL [address] [place] [address] Registered Nurse Family Medicine 08/04/24 12/15/24 Kelly Andres 08/04/24 12/15/24 Jolynn Santos, EMANUEL [address] [place] [address] [place] [address] Registered Nurse Family Medicine 01/14/25 Kelly Andres 01/14/25 Martha Mast Nurse MonitoringTassel Making Machine Operator 07/20/23 Alyssia ABARCAA 09/04/24 documented as of this encounter
--- OUTSIDE RECORDS SUMMARY | 2025-02-09 22:03 | XMS_ITS | Encounter Summary ---
Author Organization [employer] Address [address] [facility] 7t [place] [address] Care Team Providers Care Tombstone Erector Helper Name Role Phone Ting Packer MD Primary Care Provide r Jolynn Santos RN Unavailable [phone] Kelly Andres Unavailable Reason for Visit * Reason Comments Med Refill Encounter Details Date Type Department Care Team (Late st Contact Info) Description 02/05/2025 Refill [facility] MEDICINE [address] [place], [place] [phone] Ting Packer MD [address] [place], [place] [phone] Hypertension, unspecified type; Other depression Social History Tobacco Use Types Packs/Day Years [...] got money to buy more: Sometimes True 06/24/ 2025 Within the past 12 months,th e food [...] as of this encounter Visit Diagnoses Diagnosis Hypertension, unspecified type Other depression documented in this encounter Additional Health Concerns Assessment Noted Time PHQ-9 Depression Total Score: 8 10/31/19 25 11:37 AM EDT documented as of this encounter Care Teams Tombstone Erector Helper Relationship Specialty Start Date End Date Ting Packer MD [address] [place] [address] PCP - General Family Medicine 02/13/19 Jolynn Santos RN [address] [place] [address] Registered Nurse Family Medicine 01/14/25 Kelly Andres 01/14/25 Martha Mast Senior CaregiverDry Cans Operator 07/20/23 Alyssia ABARCAA 09/04/24 documented as of this encounter
--- OUTSIDE RECORDS SUMMARY | 2025-02-09 22:03 | XMS_ITS | Encounter Summary ---
Author Organization [employer] Address [address] [facility] 7t [place] [address] Care Team Providers Care Supervisor Electric Motor Testing Name Role Phone Ting Packer MD Primary Care Provide r Fabian Perkins RN Unavailable [phone] Kelly Andres Unavailable Jolynn Santos RN Unavailable [phone] Kelly Andres Unavailable Reason for Visit * Reason Comments Med Refill Encounter Details Date Type Department Care Team ([facility] st Contact Info) Description 01/31/2024 Refill [facility] MEDICINE [address] [place], [place] [phone] Ting Packer MD [address] [place], [place] [phone] COPD exacerbation (CMS/[facility]) Social History Tobacco Use Types Packs/Day Years [...] as of this encounter Care Teams Supervisor Electric Motor Testing Relationship Specialty Start Date End Date Ting Packer MD [address] [place] [address] PCP - General Family Medicine 02/13/19 Fabian Perkins, EMANUEL [address] [place] [address] Registered Nurse Family Medicine 08/04/24 12/15/24 Kelly Andres 08/04/24 12/15/24 Jolynn Santos RN [address] [place] [address] Registered Nurse Family Medicine 01/14/25 Kelly Andres 01/14/25 Martha Mast Staff SonographerGround Service Equipment Mechanic 07/20/23 Alyssia TAYLOR 09/04/24 documented as of this encounter
--- OUTSIDE RECORDS SUMMARY | 2025-02-09 22:03 | XMS_ITS | Encounter Summary ---
Author Organization [employer] Address [address] [facility] 7t [place] [address] Care Team Providers Care Bonding Supervisor Name Role Phone Ting Packer MD Primary Care Provide r Fabian Perkins RN Unavailable [phone] Kelly Andres Unavailable Jolynn Santos RN Unavailable [phone] Kelly Andres Unavailable Reason for Visit * Reason Onset Date Comments Nurse Triage 07/28/2024 Encounter Details Date Type Department Care Team (Late st Contact Info) Description 07/28/2024 Telephone [facility] MEDICINE [address] [place], [place] [phone] Ting Packer MD [address] [place], [place] [phone] Nurse Triage Social History Tobacco Use Types [...] the past 12 months, has t he [employer], gas, oil or water [employer] threatened to shut off services in your [...] 07/28/2024 12:31 PM EDT Triage call with [facility] [place] [id number]. Pt reports shoulder pain, back pain and [...] documented as of this encounter Care Teams Bonding Supervisor Relationship Specialty Start Date End Date Ting Packer MD [address] [place] [address] PCP - General Family Medicine 02/13/19 Fabian Perkins, EMANUEL [address] [place] [address] Registered Nurse Family Medicine 08/04/24 12/15/24 Kelly Andres 08/04/24 12/15/24 Jolynn Santos RN [address] [place] [address] Registered Nurse Family Medicine 01/14/25 Kelly Andres 01/14/25 Martha Mast Coordinate Measuring Machine TechnicianCredit Front Office Developer 07/20/23 Alyssia ABARCAA 09/04/24 documented as of this encounter
--- OUTSIDE RECORDS SUMMARY | 2025-02-09 22:03 | XMS_ITS | Encounter Summary ---
Author Organization [employer] Address 75 [facility] 7t [place] [address] Care Team Providers Care Residential Remodeling Subcontractor Name Role Phone Ting Packer MD Primary Care Provide r Fabian Perkins RN Unavailable [phone] Kelly Andres Unavailable Jolynn Santos RN Unavailable [phone] Kelly Andres Unavailable Reason for Visit * Reason Onset Date Comments HDF 11/13/2023 Encounter Details Date Type Department Care Team (Late st Contact Info) Description 11/13/2023 Telephone [facility] MEDICINE [address] [place], [place] [phone] Ting Packer MD [address] [place], [place] [phone] F Social History Tobacco Use Types Packs/Day [...] Miscellaneous Notes * Telephone Encounter - Isis Scanlonro - 11/13/2023 2:57 PM EDT 11/13/23 1001 Hospital Discharges and Admission for [facility] Type of Visit Hospital Admission Date of Admission/Visit 11/10/23 Date of Discharge 11/12/23 Facility [facility] Diagnosis Hypoxic respiratory failure Disposition Discharged [...] Wednesdays, and Walk-In Urgent Care Located in [facility]. Patient provided with after-hours line for [facility], , which offer night time triage service and option to transfer to pest control applicator provider if needed. CC will request Discharge [...] as of this encounter Care Teams Residential Remodeling Subcontractor Relationship Specialty Start Date End Date Ting Packer MD [address] [place] [address] PCP - General Family Medicine 02/13/19 Fabian Perkins, RN [address] [place] [address] Registered Nurse Family Medicine 08/04/24 12/15/24 Kelly Andres 08/04/24 12/15/24 Jolynn Santos RN [address] [place] [address] Registered Nurse Family Medicine 01/14/25 Kelly Andres 01/14/25 Martha Mast Pressroom ForemanHealth Benefits Specialist 07/20/23 Alyssia ABARCAA 09/04/24 documented as of this encounter
--- OUTSIDE RECORDS SUMMARY | 2025-02-09 22:03 | XMS_ITS | Encounter Summary ---
Author Organization [employer] Address 75 [facility] 7t [place] [address] Care Team Providers Care Radio Machinist Name Role Phone Ting Packer MD Primary Care Provide r Fabian Perkins RN Unavailable [phone] Kelly Andres Unavailable Jolynn Santos RN Unavailable [phone] Kelly Andres Unavailable Reason for Visit * Reason Comments Med Refill Encounter Details Date Type Department Care Team ([facility] st Contact Info) Description 09/17/2023 Refill [facility] [address] [place] [address] Ting Packer MD [address] [place] [address] Sleeping difficulty Social History Tobacco Use Types [...] 2:01 PM EDT Jimmy Rosario MA * How difficult have these problems made it for you to do your work, take care of things at home, or get along with other people? Answer Date of Assessment Author Not difficult at all 09/18/2023 2:01 PM EDT Jimmy Aguirre [place] * Over the past 2 weeks, [...] energy Not at all 09/18/2023 2:01 PM EDT Jimmy Rosario [place] Poor appetite or overeating [...] Time PHQ-9 Depression Total Score: 6 05/24/19 1:28 PM EDT documented as of this encounter Care Teams Radio Machinist Relationship Specialty Start Date End Date Ting Packer MD [address] [place] [address] PCP - General Family Medicine 02/13/19 Fabian Perkins RN [address] [place] [address] Registered Nurse Family Medicine 08/04/24 12/15/24 Kelly Andres 08/04/24 12/15/24 Jolynn Santos RN [address] [place] [address] [place] [address] Registered Nurse Family Medicine 01/14/25 Kelly Andres 01/14/25 Martha Mast Lumber Sorter MachineLegal Process Specialist 07/20/23 Alyssia TAYLOR 09/04/24 documented as of this encounter
--- OUTSIDE RECORDS SUMMARY | 2025-02-09 22:03 | XMS_ITS | Clinical Summary ---
Author Organization [employer] Address [address] [place] [address] 7t [place] [address] Care Team Providers Care Accounts Payable Accountant Name Role Phone Ting Packer MD Primary Care Provide r Jolynn Santos RN Unavailable [phone] Kelly Andres Unavailable Allergies Active Allergy Reactions [...] MD. 30 patch 1 07/19/19 24 Active ipratropium-albu terol (Duo-Neb) 0.5-2.5 mg/3 mL nebulizer solutionIndicati ons:Moderate persistent asthma with acute exacerbation INHALE 1 AMPULE USING A NEBULIZER FOUR TIMES DAILY (for COPD) 75 mL 12/25/19 24 Active azithromycin (Zithromax) 250 MG tabletIndication s:COPD exacerbation (CMS/HCC) (HCC) Take 2 tabs PO daily x 1d then 1 tab PO daily on D2 to D5 6 tablet 01/14/20 24 Active predniSONE (Deltasone) 20 MG tablet Take 2 tabs orally daily for 3 days, then 1 tab orally daily for 4 days 10 tablet 02/08/20 24 Active melatonin 5 MG tabletIndication s:Sleeping difficulty TAKE 1 TABLET BY MOUTH AT BEDTIME NEEDED FOR SLEEP 90 tablet 1 08/28/19 25 Active Ventolin HFA 108 (90 Base) MCG/ACT inhalerIndicatio ns:Severe persistent asthma with exacerbation (HCC) INHALE 2 PUFFS BY MOUTH EVERY 4 HOURS NEEDED FOR WHEEZING 18 g 3 10/14/19 25 Active Fluticasone-Salm eterol (Advair Diskus) 500-50 MCG/ACT aerosol powderIndication s:Forgetfulness Inhale 1 puff 2 times daily. 60 each 5 5 4:57 PM EST 10/31/19 25 Active tiotropium (Spiriva HandiHaler) 18 MCG inhalation capsuleIndicatio ns:Forgetfulness USE 1 CAPSULE FOR INHALATION ONCE A DAY DO NOT SWALLOW CAPSULE 30 capsule 11 10/31/19 25 Active Blood Pressure Monitoring (Blood Pressure Cuff) miscIndications: Primary hypertension 1 each in the morning. 1 each 10/31/19 25 Active albuterol (2.5 MG/3ML) 0.083% nebulizer solutionIndicati ons:Forgetfulnes s INHALE 1 AMPULE USING A NEBULIZER EVERY 4 TO 6 HOURS NEEDED FOR WHEEZING OR SHORTNESS OF BREATH 90 mL 1 11/19/19 25 Active bisacodyl (Bisacodyl EC) 5 MG EC tablet TAKE 2 TABLETS BY MOUTH EVERY DAY AT BEDTIME 180 tablet 1 12/05/19 25 Active montelukast (Singulair) 10 MG tabletIndication s:Primary hypertension TAKE 1 TABLET BY MOUTH EVERY EVENING 90 tablet 1 12/05/19 25 Active Calcium Carb-Cholecalcif lg 600-10 MG-MCG tabletIndication s:Osteopenia, unspecified location TAKE 1 TABLET BY MOUTH EVERY MORNING 90 tablet 1 12/05/19 25 Active hydroCHLOROthiaz rey 12.5 MG tabletIndication s:Primary hypertension TAKE 1 TABLET BY MOUTH EVERY MORNING 90 tablet 1 12/05/19 25 Active amitriptyline (Elavil) 25 MG tabletIndication s:Migraine without aura and without status migrainosus, not intractable TAKE 1 TABLET BY MOUTH AT BEDTIME 90 tablet 1 5 4:57 PM EST 01/08/20 25 Active folic acid (Folvite) 1 MG tabletIndication s:Vitamin deficiency TAKE 1 TABLET BY MOUTH EVERY MORNING 90 tablet 1 5 4:57 PM EST 01/08/20 25 Active cyanocobalamin (Vitamin B-12) 1000 MCG tabletIndication s:Vitamin deficiency TAKE 1 TABLET BY MOUTH EVERY MORNING 90 tablet 1 5 4:57 PM EST 01/08/20 25 Active gabapentin (Neurontin) 100 MG capsuleIndicatio ns:Polyarthralgi a TAKE 1 CAPSULE BY MOUTH THREE TIMES DAILY IN THE MORNING, EVENING, AND BEDTIME 90 capsule 5 4:57 PM EST 01/15/20 25 Active acetaminophen (Tylenol 8 Hour) 650 MG ER tabletIndication s:Multiple joint pain TAKE 2 TABLETS BY MOUTH EVERY 8 HOURS NEEDED FOR MILD PAIN 60 tablet 1 01/27/20 25 Active amLODIPine (Norvasc) 5 MG tabletIndication s:Hypertension, unspecified type TAKE 1 TABLET BY MOUTH EVERY MORNING 90 tablet 3 02/06/20 25 Active sertraline (Zoloft) 50 MG tabletIndication s:Other depression TAKE 1 TABLET BY MOUTH EVERY MORNING 30 tablet 5 02/06/20 25 Active amLODIPine (Norvasc) 5 MG tabletIndication s:Hypertension, unspecified type TAKE 1 TABLET BY MOUTH EVERY MORNING 90 tablet 3 01/31/20 24 025 Discontinued sertraline (Zoloft) 50 MG tabletIndication s:Other depression TAKE 1 TABLET BY MOUTH EVERY MORNING 30 tablet 5 08/02/19 25 025 Discontinued acetaminophen (Tylenol 8 Hour) 650 MG ER tabletIndication s:Multiple joint pain TAKE 2 TABLETS BY MOUTH EVERY 8 HOURS NEEDED FOR MILD PAIN 60 tablet 1 5 4:57 PM EST 12/10/19 025 Discontinued gabapentin (Neurontin) 100 MG capsuleIndicatio ns:Polyarthralgi a TAKE 1 CAPSULE BY MOUTH THREE TIMES DAILY IN THE MORNING, EVENING, AND BEDTIME 90 capsule 12/17/19 025 Discontinued Hospital, Clinic, or Other Facility Administered Medication Ordered Dose Route Frequency Start Date End Date Status predniSONE (Deltasone) tablet 50 mgIndications:COPD exacerbation ([facility]) ([facility]) 50 mg PO Daily 02/08/2024 Active Active [...] malignant neoplasm of breast 05/01/2024 COPD exacerbation ([facility]) 12/25/2023 Assessment & Plan (01/14/2024 4:48 PM EST): I prescribed z-pack Prednisone extended now 60mg daily ED precautions reviewed Assessment & Plan (12/25/2023 6:22 PM EDT): Unclear if related to CHF? Will order BNP and fu results. Advised to take PRD 40mg x 5d and fu with PCP Continue duoneb q6h prn sob Continue Advair bid FU with PCP Asthma-COPD overlap syndrome ([facility]) Assessment & Plan (10/30/2024 4:22 PM EDT): [...] and Management I will get notes from chemical maker and contact their office inquiring about sleep [...] artery disease of n ative artery of [place] heart with stable angina pectoris 05/22/2018 Nonrheumatic [...] Encounters Date Type Department Care Team Description 02/05/2025 Refill [facility] MEDICINE [address] [place], [place] [phone] Ting Packer MD Hypertension, unspecified type; Other depression 01/23/2025 Refill [facility] MEDICINE [address] [place], [place] [phone] Ting Packer MD Multiple joint pain 01/20/2025 Patient Outreach [facility] MEDICINE [address] [place], [place] [phone] Ting Packer MD 01/20/2025 Patient Outreach [facility] MEDICINE [address] [place] [address] Ting Packer MD 01/14/2025 Patient Outreach [facility] MEDICINE [address] [place] [address] Ting Packer MD Care Coordination ([address] Andres chart review) 01/14/2025 Patient Outreach [facility] MEDICINE [address] [place] [address] Ting Packer MD Care Management ([facility] ) 01/14/2025 Patient Outreach [facility] MEDICINE [address] [place] [address] Ting Packer MD 01/13/2025 Refill [facility] MEDICINE [address] [place] [address] Ting Packer MD Polyarthralgia 01/07/2025 Refill [facility] MEDICINE [address] [place] [address] Ting Packer MD Migraine without aura and without status migrainosus, not intractable; Vitamin deficiency 12/26/2024 Telephone [facility] MEDICINE [address] [place] [address] Ting Packer MD ELFEGO RECALL 12/18/2024 Orders Only GENERIC EXTERNAL DATA DEPARTMENT Provider, Generic External Data 12/15/2024 Refill [facility] MEDICINE [address] [place] [address] Ting Packer MD Polyarthralgia 12/15/2024 Patient Outreach [facility] MED[facility]INE [address] [place] [address] Ting Packer MD Care Coordination ([facility] Andres telephone call outreach ) 2024 Refill [facility] MEDICINE [address] [place] [address] Ting Packer MD Polyarthralgia 12/08/2024 Refill [facility] MED[facility]INE [address] [place] [address] Ting Packer MD Multiple joint pain 12/08/2024 Patient Outreach [facility] MEDICINE [address] [place] [address] Ting Packer MD Care Coordination (C3 -[facility] telephone call outreach /) 12/04/2024 Refill [facility] MEDICINE [address] [place] [address] Ting Packer MD Primary hypertension; Osteopenia, unspecified location 12/01/2024 Patient Outreach [facility] MED[facility]INE [address] [place] [address] Ting Packer MD Care Coordination (C3 -[facility] telephone call outreach) 11/24/2024 Patient Outreach [facility] MED[facility]INE [address] [place] [address] Ting Packer MD Care Coordination (C3 -[facility] telephone call outreach) 11/21/2024 Telephone [facility] MEDICINE [address] [place] [address] Ting Packer MD FYI 11/20/2024 Telephone [facility] MEDICINE [address] [place] [address] Ting Packer MD Dec recall 11/20/2024 Refill [facility] MEDICINE [address] [place] [address] Ting Packer MD Chronic left-sided low back pain without sciatica 11/17/2024 Refill C MEDICINE [address] [place] [address] Ting Packer MD Forgetfulness 11/14/2024 Refill C MEDICINE [address] [place] [address] Ting Packer MD Polyarthralgia 11/13/2024 Telephone [facility] MED[facility]INE [address] [place] [address] Ting Packer MD FYI 11/10/2024 Patient Outreach [facility] MED[facility]INE [address] [place] [address] Ting Packer MD Care Coordination (C3 -[facility] Kelly Andres telephone call outreach) from Last [...] Screening 1980 Pap Smear 12/13/1983 HPV/Cotest 1992 RSV Patients and Patients Aged 60 years or older (1 - Risk 50-74 years 1-dose series) 2012 Zoster Vaccines (1 of 2) 2012 Dental Oral Exam 02/10/2023 08/10/2022, 01/09/2017 Dental [...] TOTAL Routine 10/30/2024 11:53 AM EDT Prediabetes ALBUMIN, [...] Free T4 1.25 0.32 - 4.0 uIU/mL [facility] 12/18/2024 1:41 PM EDT 12/18/2024 1:41 PM EDT us Generic External Data Provider LAB BLOOD ORDERAB LES Final Result Performing Organization Address [facility] Co de Phone Number [facility] [address] [place] [phone] * (ABNORMAL) Vitamin B12 (12/18/2024 1:41 PM EDT) Vitamin B12 >2,000(H) 200 - 900 pg/mL [facility] Comment:NORMAL 200-900 PG/ML INDETERMINATE 160-199 PG/ML DEFICIENT < 160 PG/ML 12/18/2024 1:41 PM EDT 12/18/2024 1:41 PM EDT us Generic External Data Provider LAB BLOOD ORDERAB LES Final Result Performing Organization Address [facility] Co de Phone Number [facility] [address] [place] [phone] * POCT Hgb A1c (10/30/2024 11:53 AM EDT) Pathologist [facility] Hemoglobin A1C 5.7 4.0 - 5.7 % QC Media Lot # [id number] Lot# Expiration Date [id number] Blood 10/30/2024 11:5 3 AM EDT us Ting Hampton MD POINT OF CARE TEST EN TER/EDIT ORDERABLES Final Result * (ABNORMAL) Albumin, Random Urine W/Creatinine (01/14/2024 3:09 PM EST) Creatinine, Urine 88.61 mg/dL [facility] Microalbumin Urine 28.0 mg/L [facility] Microalbum Creatinine Ratio Ur 31.5(H) <30 ug/mg cr [facility] Comment:Albumin/Creatinine R atio Reference Ranges: Normal: < 30 ug/mg creatinine Microalbuminuria: 30 - 300 ug/mg creatinineClinical Albuminuria: > 300 ug/mg creatinine Urine (Urine, Random) 01/14/2024 3:09 PM EST 01/14/2024 3:59 PM EST Ting Hampton MD LAB URINE ORDERABLES Final Result Performing Organization Address [facility] de Phone Number [facility] [address] [place] [phone] * (ABNORMAL) Lipid Panel, Standard (01/14/2024 3:09 PM EST) Triglycerides 113 <150 mg/dL [facility] Comment:Desirable Triglyceri de: less than 150 mg/dLBorderline High Triglyceride 150-199 mg/dLHigh Triglyceride: 200-499 mg/dLVery High Triglyceride: greater than or equal to 5OO mg/dL Cholesterol 213(H) <200 mg/dL [facility] Comment:Desirable Cholestero l: less than 200 mg/dLBorderline High Cholesterol: 200-239 mg/dLHigh Cholesterol: greater than 239 mg/dL LDL Cholesterol Calculated 96 <100 mg/dL [facility] Comment:Desirable LDL: less than 100 mg/dLNear Optimal/Above Optimal LDL: 110- 129 mg/dLBorderline High LDL: 130-159 mg/dLHigh LDL: 160-189 mg/dLVery High LDL: greater than or equal to 190 mg/dL HDL Cholesterol 95 >40 mg/dL [facility] Comment:Desirable HDL: great er than 40 mg/dL Note: This HDL assay may give artificially low results in patients with liver disease. Blood Venous blood specimen / Unknown 01/14/2024 3:09 PM EST 01/14/2024 3:58 PM EST us Ting Hampton MD LAB BLOOD ORDERABLES Final Result Performing Organization Address [facility] Co de Phone Number [facility] [address] [place] [phone] * Mammography Report 1 (01/13/2022 3:40 [...] Most Recently Relevant to Health Maintenance Insurance [facility] C3 DENTAL-[facility] MEDICAID STAND ADULT Care Teams Accounts Payable Accountant Relationship Specialty Start Date End Date Ting Packer MD [address] [place] [address] PCP - General Family Medicine 02/13/19 Jolynn Santos RN [address] [place] [address] Registered Nurse Family Medicine 01/14/25 Kelly Andres 01/14/25 Martha Mast Dog RaiserTagman 07/20/23 [facility]
--- OUTSIDE RECORDS SUMMARY | 2025-02-09 22:03 | XMS_ITS | Encounter Summary ---
Author Organization [employer] Address [address] [facility] 7t [place] [address] Care Team Providers Care Well Drill Operator Helper Cable Tool Name Role Phone Ting Packer MD Primary Care Provide r Fabian Perkins RN Unavailable [phone] Kelly Andres Unavailable Jolynn Santos RN Unavailable [phone] Kelly Andres Unavailable Reason for Visit * Reason Onset Date Comments Med Refill 01/31/2024 Encounter Details Date Type Department Care Team (Late st Contact Info) Description 01/31/2024 Telephone [facility] MEDICINE [address] [place], [place] [phone] Ting Packer MD [address] [place], [place] [phone] Med Refill Social History Tobacco Use Types [...] the past 12 months, has t he [employer], gas, oil or water [employer] threatened to shut off services in your [...] 20 MG tablet To be sent to: [facility] documented in this encounter Plan of Treatment Not on file documented as of this encounter Visit Diagnoses Not on filedocumented in this encounter Additional Health Concerns Assessment Noted Time PHQ-9 Depression Total Score: 3 09/18/19 24 2:01 PM EDT documented as of this encounter Care Teams Well Drill Operator Helper Cable Tool Relationship Specialty Start Date End Date Ting Packer MD [address] [place] [address] PCP - General Family Medicine 02/13/19 Fabian Perkins RN [address] [place] [address] Registered Nurse Family Medicine 08/04/24 12/15/24 Kelly Andres 08/04/24 12/15/24 Jolynn Santos, EMANUEL [address] [place] [address] Registered Nurse Family Medicine 01/14/25 Kelly Andres 01/14/25 Martha Mast Industrial Chemistry TeacherCorset Maker 07/20/23 Alyssia ABARCAA 09/04/24 documented as of this encounter
--- OUTSIDE RECORDS SUMMARY | 2025-02-09 22:03 | XMS_ITS | Encounter Summary ---
Author Organization [employer] Address 75 [facility] 7t [place] [address] Care Team Providers Care Proposal Director Name Role Phone Ting Packer MD Primary Care Provide r Fabian Perkins RN Unavailable [phone] Kelly Andres Unavailable Jolynn Santos RN Unavailable [phone] Kelly Andres Unavailable Reason for Visit * Reason Comments Med Refill Encounter Details Date Type Department Care Team (Late st Contact Info) Description 10/26/2023 Refill [facility] MEDICINE 230 [place], [place] [phone] Ting Packer MD 230 [place], [place] [phone] Moderate persistent asthma with acute exacerbation Social [...] the past 12 months, has t he [employer], gas, oil or water company threatened to [...] documented as of this encounter Care Teams Proposal Director Relationship Specialty Start Date End Date Ting Packer MD 230 [place] [address] PCP - General Family Medicine 02/13/19 Fabian Perkins RN [address] [place] [address] Registered Nurse Family Medicine 08/04/24 12/15/24 Kelly Andres 08/04/24 12/15/24 Jolynn Santos RN 230 [place] [address] Registered Nurse Family Medicine 01/14/25 Kelly Andres 01/14/25 Martha Mast Suction Dredge Dumping SupervisorCompensation And Hris Analyst 07/20/23 Alyssia TAYLOR 09/04/24 documented as of this encounter
--- OUTSIDE RECORDS SUMMARY | 2025-02-09 22:03 | XMS_ITS | Encounter Summary ---
Author Organization [employer] Address 75 [facility] 7t [place] [address] Care Team Providers Care Fur Polisher Name Role Phone Ting Packer MD Primary Care Provide r Fabian Perkins RN Unavailable [phone] Kelly Andres Unavailable Jolynn Santos RN Unavailable [phone] Kelly Andres Unavailable Reason for Visit * Reason Onset Date Comments Med Refill Pt family member walked in with pt on the phone. Pt spoke with fd and is complaining of left shoulder pain. Pt states she has been in pain for x4 days. Pt is requesting urgent appt and only want pcp. Pt can be reached at [phone]. Routing message to team nurses. appt request 06/19/2024 Encounter Details Date Type Department Care Team ([facility] st Contact Info) Description 06/19/2024 Telephone [facility] MEDICINE 230 [place] [address] Ting Packer MD 230 [place], [place] [phone] Med Refill (Pt family member walked in with pt on the phone. Pt spoke with fd and is complaining of left shoulder pain. Pt states she has been in pain for x4 days. Pt is requesting urgent appt and only want pcp. Pt can be reached at [phone]. Routing message to team nurses.); appt request [...] only want pcp.Pt can be reached at [phone]. Routing message to team nurses. documented in this encounter Plan of Treatment Not on file documented as of this encounter Visit Diagnoses Diagnosis Vitamin deficiency Unspecified vitamin deficiency Migraine without aura and without status migrainosus, not intractable documented in this encounter Additional Health Concerns Assessment Noted Time PHQ-9 Depression Total Score: 3 09/18/19 2:01 PM EDT documented as of this encounter Care Teams Fur Polisher Relationship Specialty Start Date End Date Ting Packer MD 230 [place] [address] PCP - General Family Medicine 02/13/19 Fabian Perkins, RN [address] [place] [address] Registered Nurse Family Medicine 08/04/24 12/15/24 Kelly Andres 08/04/24 12/15/24 Jolynn Snatos RN 230 [place] [address] Registered Nurse Family Medicine 01/14/25 Kelly Andres 01/14/25 Martha Mast Commercial RooferGrab Hooker 07/20/23 Alyssia ABARCAA 09/04/24 documented as of this encounter
--- OUTSIDE RECORDS SUMMARY | 2025-02-09 22:03 | XMS_ITS | Encounter Summary ---
Author Organization [employer] Address 75 [facility] 7t [place] [address] Care Team Providers Care Caregivers Non Medical Name Role Phone Ting Packer MD Primary Care Provide r Fabian Perkins RN Unavailable [phone] Kelly Andres Unavailable Jolynn Santos RN Unavailable [phone] Kelly Andres Unavailable Reason for Visit * Reason Comments Med Refill Encounter Details Date Type Department Care Team ([facility] st Contact Info) Description 01/29/2024 Refill [facility] MEDICINE 230 [place], [place] [phone] Ting Packer MD 230 [place], [place] [phone] COPD exacerbation (CMS/[facility]) Social History Tobacco Use Types Packs/Day [...] documented as of this encounter Care Teams Caregivers Non Medical Relationship Specialty Start Date End Date Ting Packer MD 230 [place] [address] PCP - General Family Medicine 02/13/19 Fabian Perkins, EMANUEL [address] [place] [address] Registered Nurse Family Medicine 08/04/24 12/15/24 Kelly Andres 08/04/24 12/15/24 Jolynn Santos RN 230 [place] [address] Registered Nurse Family Medicine 01/14/25 Kelly Andres 01/14/25 Martha Mast Automatic Door MechanicClinical Lab Assistant 07/20/23 Alyssia TAYLOR 09/04/24 documented as of this encounter
--- OUTSIDE RECORDS SUMMARY | 2025-02-09 22:03 | XMS_ITS | Encounter Summary ---
Author Organization [employer] Address 75 [facility] 7t [place] [address] Care Team Providers Care Bricklayer Tender Name Role Phone Ting Packer MD Primary Care Provide r Fabian Perkins RN Unavailable [phone] Kelly Andres Unavailable Jolynn Santos RN Unavailable [phone] Kelly Andres Unavailable Reason for Visit * Reason Onset Date Comments Hospital Follow-up 03/22/2023 Encounter Details Date Type Department Care Team (Late st Contact Info) Description 03/22/2023 Telephone [facility] MEDICINE 230 [place] [address] Ting Packer MD 230 [place], [place] [phone] Hospital Follow-up Social History Tobacco Use Types [...] from pt requesting a HDF appt. Hospital: [facility] Date of admission: [facility]: 03/14 [facility]:03/15 Discharge date: [facility]:03/15 [facility]: 03/17 Diagnosed: asthma and COPD Please contact pt at [phone] (Slovenian) documented in this encounter Plan of Treatment Not on file documented as of this encounter Visit Diagnoses Not on filedocumented in this encounter Additional Health Concerns Assessment Noted Time PHQ-9 Depression Total Score: 6 05/24/19 23 1:28 PM EDT documented as of this encounter Care Teams Bricklayer Tender Relationship Specialty Start Date End Date Ting Packer MD 230 [place] [address] PCP - General Family Medicine 02/13/19 Fabian Perkins, RN [address] [place] [address] Registered Nurse Family Medicine 08/04/24 12/15/24 Kelly Andres 08/04/24 12/15/24 Jolynn Santos, EMANUEL [address] [place], [place] [address] [place] [address] Registered Nurse Family Medicine 01/14/25 Kelly Andres 01/14/25 Martha Mast Special Population ParaprofessionalCorporate Strategy Intern 07/20/23 Alyssia TAYLOR 09/04/24 documented as of this encounter
--- OUTSIDE RECORDS SUMMARY | 2025-02-09 22:04 | XMS_ITS | Encounter Summary ---
Author Organization [employer] Address 75 [facility] 7t [place] [address] Care Team Providers Care Maintenance Technician 3Rd Shift Name Role Phone Ting Packer MD Primary Care Provide r Fabian Perkins RN Unavailable [phone] Kelly Andres Unavailable Jolynn Santos RN Unavailable [phone] Kelly Andres Unavailable Reason for Visit * Reason Comments Med Refill Encounter Details Date Type Department Care Team (Late st Contact Info) Description 02/21/2024 Refill [facility] MEDICINE 230 [place], [place] [phone] Dara Ricardo MD 230 [place], [place] [phone] Moderate persistent asthma with acute exacerbation Social [...] documented as of this encounter Care Teams Maintenance Technician 3Rd Shift Relationship Specialty Start Date End Date Ting Packer MD 230 [place] [address] PCP - General Family Medicine 02/13/19 Fabian Perkins RN [address] [place] [address] Registered Nurse Family Medicine 08/04/24 12/15/24 Kelly Andres 08/04/24 12/15/24 Jolynn Santos RN 230 [place] [address] Registered Nurse Family Medicine 01/14/25 Kelly Andres 01/14/25 Martha Mast Remote Sensing TechnicianCertified Juvenile Probation Officer 07/20/23 Alyssia TAYLOR 09/04/24 documented as of this encounter
--- OUTSIDE RECORDS SUMMARY | 2025-02-09 22:04 | XMS_ITS | Encounter Summary ---
Author Organization [employer] Address 75 [facility] 7t [place] [address] Care Team Providers Care Ambulance Attendant Name Role Phone Ting Packer MD Primary Care Provide r Fabian Perkins RN Unavailable [phone] Kelly Andres Unavailable Jolynn Santos RN Unavailable [phone] Kelly Andres Unavailable Encounter Details Date Type Department Care Team (Late st Contact Info) Description 09/12/2023 Telephone [facility] MEDICINE 230 [place], [place] [phone] Ting Packer MD 230 [place], [place] [phone] Social History Tobacco Use Types Packs/Day Years [...] documented as of this encounter Care Teams Ambulance Attendant Relationship Specialty Start Date End Date Ting Packer MD 230 [place] [address] PCP - General Family Medicine 02/13/19 Fabian Perkins RN [address] [place] [address] Registered Nurse Family Medicine 08/04/24 12/15/24 Kelly Andres 08/04/24 12/15/24 Jolynn Santos RN 230 [place] [address] Registered Nurse Family Medicine 01/14/25 Kelly Andres 01/14/25 Martha Mast Assault Amphibious Vehicle OfficerBrand Ambassador Promotional Model 07/20/23 Alyssia ABARCAA 09/04/24 documented as of this encounter
--- OUTSIDE RECORDS SUMMARY | 2025-02-09 22:04 | XMS_ITS | Encounter Summary ---
Author Organization [employer] Address 75 [facility] 7t [place] [address] Care Team Providers Care Certification And Selection Specialist Name Role Phone Ting Packer MD Primary Care Provide r Fabian Perkins RN Unavailable [phone] Kelly Andres Unavailable Jolynn Santos RN Unavailable [phone] Kelly Andres Unavailable Reason for Visit * Reason Onset Date Comments PT1 09/12/2023 Encounter Details Date Type Department Care Team (Late st Contact Info) Description 09/12/2023 Telephone [facility] MEDICINE 230 [place], [place] [phone] Ting Packer MD 230 [place], [place] [phone] PT1 Social History Tobacco Use Types Packs/Day [...] 09/12/2023 9:39 AM EDT Sandra with [employer] calling requesting PT1 Home Address verified: Y/N: Yes Provider name or facility name: [facility] Facility Address: [address] [place] [address] Escort needed: Y/N: Yes Do you have a wheelchair: Y/N: No If yes- Manual or electric: No Visits: All future Visits Sandra with [employer] calling requesting PT1 Home Address verified: Y/N: Yes Provider name or facility name: [facility] Facility Address: [address] [place] [address] Escort needed: Y/N: Yes Do you have [...] documented as of this encounter Care Teams Certification And Selection Specialist Relationship Specialty Start Date End Date Ting Packer MD [address] [place] [address] PCP - General Family Medicine 02/13/19 Fabian Perkins, RN [address] [place] [address] Registered Nurse Family Medicine 08/04/24 12/15/24 Kelly Andres 08/04/24 12/15/24 Jolynn Santos, EMANUEL [address] [place] [address] Registered Nurse Family Medicine 01/14/25 Kelly Andres 01/14/25 Martha Mast Automation And Controls ManagerDirector Of Blood 07/20/23 Alyssia ABARCAA 09/04/24 documented as of this encounter
--- OUTSIDE RECORDS SUMMARY | 2025-02-09 22:04 | XMS_ITS | Encounter Summary ---
Author Organization [employer] Address 75 [facility] 7t [place] [address] Care Team Providers Care Asset Protection Professional Name Role Phone Ting Packer MD Primary Care Provide r Fabian Perkins RN Unavailable [phone] Kelly Andres Unavailable Jolynn Santos RN Unavailable [phone] Kelly Andres Unavailable Encounter Details Date Type Department Care Team (Late st Contact Info) Description 02/29/2024 Telephone [facility] MEDICINE 230 [place], [place] [phone] Ting Packer MD 230 [place], [place] [phone] Social History Tobacco Use Types Packs/Day Years [...] documented as of this encounter Care Teams Asset Protection Professional Relationship Specialty Start Date End Date Ting Packer MD [address] [place] [address] PCP - General Family Medicine 02/13/19 Fabian Perkins RN [address] [place] [address] Registered Nurse Family Medicine 08/04/24 12/15/24 Kelly Andres 08/04/24 12/15/24 Jolynn Santos RN [address] [place] [address] Registered Nurse Family Medicine 01/14/25 Kelly Andres 01/14/25 Martha Mast Upper ShaperAccount Development Representative 07/20/23 Alyssia TAYLOR 09/04/24 documented as of this encounter
--- OUTSIDE RECORDS SUMMARY | 2025-02-09 22:04 | XMS_ITS | Encounter Summary ---
Author Organization [employer] Address 75 [facility] 7t [place] [address] Care Team Providers Care Manufacturing Scheduler Name Role Phone Ting Packer MD Primary Care Provide r Fabian Perkins RN Unavailable [phone] Kelly Andres Unavailable Jolynn Santos RN Unavailable [phone] Kelly Andres Unavailable Reason for Visit * Reason Comments Med Refill Encounter Details Date Type Department Care Team (Late st Contact Info) Description 03/23/2024 Refill [facility] MEDICINE 230 [place], [place] [phone] Ting Packer MD 230 [place], [place] [phone] Polyarthralgia Social History Tobacco Use Types Packs/Day [...] documented as of this encounter Care Teams Manufacturing Scheduler Relationship Specialty Start Date End Date Ting Packer MD 230 [place] [address] PCP - General Family Medicine 02/13/19 Fabian Perkins, EMANUEL [address] [place] [address] Registered Nurse Family Medicine 08/04/24 12/15/24 Kelly Andres 08/04/24 12/15/24 Jolynn Santos RN 230 [place] [address] Registered Nurse Family Medicine 01/14/25 Kelly Andres 01/14/25 Martha Mast Cryolite Recovery OperatorDay Habilitation Specialist 07/20/23 Alyssia TAYLOR 09/04/24 documented as of this encounter
--- OUTSIDE RECORDS SUMMARY | 2025-02-09 22:05 | XMS_ITS | Encounter Summary ---
Author Organization [employer] Address 75 [facility] 7t [place] [address] Care Team Providers Care Meat Carver Name Role Phone Ting Packer MD Primary Care Provide r Fabian Perkins RN Unavailable [phone] Kelly Anders Unavailable Jolynn Santos RN Unavailable [phone] Kelly Andres Unavailable Reason for Visit * Reason Comments Med Refill Encounter Details Date Type Department Care Team ([facility] st Contact Info) Description 2024 Refill [facility] MEDICINE 230 [place], [place] [phone] Ting Packer MD 230 [place], [place] [phone] Polyarthralgia Social History Tobacco Use Types Packs/Day [...] as of this encounter Care Teams Meat Carver Relationship Specialty Start Date End Date Ting Packer MD 230 [place] [address] PCP - General Family Medicine 02/13/19 Fabian Perkins, EMANUEL [address] [place] [address] Registered Nurse Family Medicine 08/04/24 12/15/24 Kelly Andres 08/04/24 12/15/24 Jolynn Santos RN [address] [place] [address] Registered Nurse Family Medicine 01/14/25 Kelly Andres 01/14/25 Martha Mast Tile Molder HandByproducts Pump Operator 07/20/23 Alyssia TAYLOR 09/04/24 documented as of this encounter
--- OUTSIDE RECORDS SUMMARY | 2025-02-09 22:06 | XMS_ITS | Encounter Summary ---
Author Organization [employer] Address 75 [facility] 7t [place] [address] Care Team Providers Care Carpet Inspector Finished Name Role Phone Ting Packer MD Primary Care Provide r Fabian Perkins RN Unavailable Kelly Andres Unavailable Jolynn Santos RN Unavailable Kelly Andres Unavailable Reason for Visit * Reason Onset Date Comments Referral 10/09/2024 Encounter Details Date Type Department Care Team (Late st Contact Info) Description 10/09/2024 Telephone [facility] MEDICINE 230 [place], [place] [phone] Ting Packer MD 230 [place], [place] [phone] Referral Social History Tobacco Use Types Packs/Day [...] 2:34 PM EDT Noted pt. Last saw [facility] cardiac surgery on 03/05/24. Office is requesting updated referral with Dx. I35. Please place if agreeable * Telephone Encounter - Jet Isak - 10/09/2024 10:50 AM EDT TC from pt requesting new referral : DATE: 10/20/24 TIME: 10:20 AM Address: [address] [place] [address] [place] [address] Visits: 14 Facility Name: [facility] Type of Specialist: Cardiac Surgery DX: I35 Provider : Dr Justin Avelar Provider NPI : [id number] Facility Phone # : [phone] Fax #: [phone] documented in this encounter Plan of Treatment Not on file documented as of this encounter Visit Diagnoses Not on filedocumented in this encounter Additional Health Concerns Assessment Noted Time PHQ-9 Depression Total Score: 3 09/18/19 24 2:01 PM EDT documented as of this encounter Care Teams Carpet Inspector Finished Relationship Specialty Start Date End Date Ting Packer MD 230 [place] [address] PCP - General Family Medicine 02/13/19 Fabian Perkins, RN [address] [place] [address] Registered Nurse Family Medicine 08/04/24 12/15/24 Kelly Andres 08/04/24 12/15/24 Jolynn Santos RN 230 [place] [address] Registered Nurse Family Medicine 01/14/25 Kelly Andres 01/14/25 Martha Mast Floors BufferStaff Development Educator 07/20/23 Alyssia ABARCAA 09/04/24 documented as of this encounter
--- OUTSIDE RECORDS SUMMARY | 2025-02-09 22:06 | XMS_ITS | Encounter Summary ---
Author Organization [employer] Address 75 [facility] 7t [place] [address] Care Team Providers Care Environmental Compliance Manager Name Role Phone Ting Packer MD Primary Care Provide r Fabian Perkins RN Unavailable [phone] Kelly Andres Unavailable Jolynn Santos RN Unavailable [phone] Kelly Andres Unavailable Reason for Visit * Reason Onset Date Comments Appointment Request 05/01/2024 Encounter Details Date Type Department Care Team (Late st Contact Info) Description 05/01/2024 Telephone [facility] MEDICINE 230 [place], [place] [phone] Ting Packer MD 230 [place], [place] [phone] Appointment Request Social History Tobacco Use Types [...] t he electric, gas, oil or water [employer] threatened to shut off services in your [...] 05/01/2024 11:19 AM EST Tc from pt's FRAUD MANAGER requesting reschedule 05/01 office visit appt, states can only on Mondays since ptdon't have transportation. [phone] Marielos FRAUD MANAGER documented in this encounter Plan of Treatment Not on file documented as of this encounter Visit Diagnoses Not on filedocumented in this encounter Additional Health Concerns Assessment Noted Time PHQ-9 Depression Total Score: 3 09/18/19 24 2:01 PM EDT documented as of this encounter Care Teams Environmental Compliance Manager Relationship Specialty Start Date End Date Ting Packer MD [address] [place] [address] PCP - General Family Medicine 02/13/19 Fabian Perkins RN [address] [place] [address] Registered Nurse Family Medicine 08/04/24 12/15/24 Kelly Andres 08/04/24 12/15/24 Jolynn Santos RN [address] [place] [address] [place] [address] Registered Nurse Family Medicine 01/14/25 Kelly Andres 01/14/25 Martha Mast Home Care Music TherapistTechnical Program Manager 07/20/23 Alyssia ABARCAA 09/04/24 documented as of this encounter
--- OUTSIDE RECORDS SUMMARY | 2025-02-09 22:06 | XMS_ITS | Encounter Summary ---
Author Organization [employer] Address 75 [facility] 7t [place] [address] Care Team Providers Care Traffic Incident Management Manager Name Role Phone Ting Packer MD Primary Care Provide r Fabian Perkins RN Unavailable [phone] Kelly Andres Unavailable Jolynn Santos RN Unavailable [phone] Kelly Andres Unavailable Encounter Details Date Type Department Care Team (Late st Contact Info) Description 11/03/2022 Telephone [facility] MEDICINE 230 [place], [place] [phone] Ting Packer MD 230 [place], [place] [phone] Social History Tobacco Use Types Packs/Day Years [...] documented as of this encounter Care Teams Traffic Incident Management Manager Relationship Specialty Start Date End Date Ting Packer MD 230 [place] [address] PCP - General Family Medicine 02/13/19 Fabian Perkins, RN [address] [place] [address] Registered Nurse Family Medicine 08/04/24 12/15/24 Kelly Andres 08/04/24 12/15/24 Jolynn Santos, EMANUEL 230 [place] [address] Registered Nurse Family Medicine 01/14/25 Kelly Andres 01/14/25 Martha Mast Plug StitcherVehicle Body Maker 07/20/23 Alyssia VNA 09/04/24 documented as of this encounter
--- OUTSIDE RECORDS SUMMARY | 2025-02-09 22:06 | XMS_ITS | Encounter Summary ---
Author Organization [employer] Address 75 [facility] 7t [place] [address] Care Team Providers Care Salvager Name Role Phone Ting Packer MD Primary Care Provide r Fabian Perkins RN Unavailable [phone] Kelly Andres Unavailable Jolynn Santos RN Unavailable [phone] Kelly Andres Unavailable Reason for Visit * Reason Onset Date Comments Call Back Request 01/03/2023 Encounter Details Date Type Department Care Team (Late st Contact Info) Description 01/03/2023 Telephone [facility] MEDICINE 230 [place] [address] Ting Packer MD 230 [place], [place] [phone] Call Back Request Social History Tobacco Use [...] documented as of this encounter Care Teams Salvager Relationship Specialty Start Date End Date Ting Packer MD 230 [place] [address] PCP - General Family Medicine 02/13/19 Fabian Perkins RN [address] [place] [address] Registered Nurse Family Medicine 08/04/24 12/15/24 Kelly Andres 08/04/24 12/15/24 Jolynn Santos RN 230 [place] [address] Registered Nurse Family Medicine 01/14/25 Kelly Andres 01/14/25 Martha Mast Carbide GrinderPuller Over 07/20/23 Alyssia TAYLOR 09/04/24 documented as of this encounter
--- OUTSIDE RECORDS SUMMARY | 2025-02-09 22:06 | XMS_ITS | Encounter Summary ---
Author Organization [employer] Address 75 [facility] 7t [place] [address] Care Team Providers Care Data Clerk Name Role Phone Ting Packer MD Primary Care Provide r Fabian Perkins RN Unavailable [phone] Kelly Andres Unavailable Jolynn Santos RN Unavailable [phone] Kelly Andres Unavailable Reason for Visit * Reason Comments Med Refill Encounter Details Date Type Department Care Team (Late st Contact Info) Description 10/05/2024 Refill [facility] MEDICINE 230 [place], [place] [phone] Ting Packer MD 230 [place], [place] [phone] Polyarthralgia Social History Tobacco Use Types Packs/Day [...] documented as of this encounter Care Teams Data Clerk Relationship Specialty Start Date End Date Ting Packer MD 230 [place] [address] PCP - General Family Medicine 02/13/19 Fabian Perkins, EMANUEL [address] [place] [address] Registered Nurse Family Medicine 08/04/24 12/15/24 Kelly Andres 08/04/24 12/15/24 Jolynn Santos RN [address] [place] [address] Registered Nurse Family Medicine 01/14/25 Kelly Andres 01/14/25 Martha Mast Marine TechnicianCut Off Sawyer Shingle Mill 07/20/23 Alyssia TAYLOR 09/04/24 documented as of this encounter
--- OUTSIDE RECORDS SUMMARY | 2025-02-09 22:06 | XMS_ITS | Encounter Summary ---
Author Organization [employer] Address [address] [place] [address] [address] [place] [address] Care Team Providers Care Engineer Of System Development Name Role Phone Ting Packer MD Primary Care Provide r Fabian Perkins RN Unavailable [phone] Kelly Andres Unavailable Jolynn Santos RN Unavailable [phone] Kelly Andres Unavailable Encounter Details Date Type Department Care Team (Late st Contact Info) Description 11/16/2022 Orders Only [facility] [address] [place] [address] Provider, MD Jacob Social History Tobacco Use [...] documented as of this encounter Care Teams Engineer Of System Development Relationship Specialty Start Date End Date Ting Packer MD [address] [place] [address] PCP - General Family Medicine 02/13/19 Fabian Perkins, RN [address] [place] [id number] Registered Nurse Family Medicine 08/04/24 12/15/24 Kelly Andres 08/04/24 12/15/24 Jolynn Santos, EMANUEL [address] [place] [address] Registered Nurse Family Medicine 01/14/25 Kelly Andres 01/14/25 Martha Mast [employer] Justice 07/20/23 Alyssia ABARCAA 09/04/24 documented as of this encounter
--- OUTSIDE RECORDS SUMMARY | 2025-02-09 22:07 | XMS_ITS ---
Author Organization [employer] Address [address] [place] [address] [address] [place] [address] Care Team Providers Care Director Of Marketing Operations Name Role Phone Ting Packer MD Primary Care Provide r Jolynn Santos RN Unavailable [phone] Kelly Andres Unavailable CM Complex Status:Identified (Enrolling) Start date:01/14/2025 Enrollment reason:ADT Feed Overview ADT- Pt admitted to [facility] on 01/13/25. Case Team Name Relationship Phone Jolynn Santos RN(Responsible Staff) Registered Nurse Continued Care and Services Coordination
--- OUTSIDE RECORDS SUMMARY | 2025-02-09 22:07 | XMS_ITS ---
Author Organization [employer] Address [address] [place] [address] [address] [place] [address] Care Team Providers Care Fly Fishing Guide Name Role Phone Ting Packer MD Primary Care Provide r Jolynn Santos RN Unavailable [phone] Kelly Andres Unavailable CHW Complex Status:Identified (Enrolling) Start date:01/14/2025 Enrollment reason:ADT Feed Overview ADT- Pt admitted to [facility] on 01/13/25. Please outreach to patient. Case Team Name Relationship Phone Kelly Andres(Responsible Staff) [phone] Continued Care and Services Coordination
== END 2025-02-09 16:08 | disposition home or self-care (01) ==
LOC: HO.HSM 15:37
PROVIDERS: PCP Internal Medicine; Visit Provider Nurse Practitioner
DX: G30.9 Alzheimer's disease, unspecified (principal); F02.80 Dementia in other diseases classified elsewhere, unspecified severity, without behavioral disturbance, psychotic disturbance, mood disturbance, and anxiety
CPT/HCPCS: 99213

== ENCOUNTER → 2025-02-09 15:37 | Outpatient (BNVA) | payer MEDICAID, SELFPAY | PROVIDERS: PCP Internal Medicine; Visit Provider Nurse Practitioner | DX: G30.9 Alzheimer's disease, unspecified (principal); F02.80 Dementia in other diseases classified elsewhere, unspecified severity, without behavioral disturbance, psychotic disturbance, mood disturbance, and anxiety; Z79.899 Other long term (current) drug therapy | CPT/HCPCS: 99212 ==